=== PATIENT | female | born 1970 | race American Indian/Alaskan Native ===

== ENCOUNTER 2017-02-26 12:14 | Emergency (ER) | payer OTHER ==
[~2017-02-26] VITALS: Ht 167.6 cm; Wt 119.8 kg
[~2017-02-26 12:14] MED LIST: ABILIFY5 MG; ADVAIR 250-501 EACH IH; ALLEGRA60 MG PO; AMOXICILLIN875 MG PO; ANTIVERT12.5 MG PO; ASPIR 8181 MG PO; ASPIRIN EC81 MG PO; ATIVAN1 MG PO; CLARITIN10 MG PO; CYCLOBENZAPRINE10 MG PO; DIAZEPAM5 MG PO; DIPHENHYDRAMINE50 MG PO; DOK100 MG PO; DOXYCYCLINE HY100 MG PO; FAMCICLOVIR500 MG PO; FERROUS SULFAT140 MG PO; FERROUS SULFAT325 MG PO; FEXOFENADINE H180 MG PO; FLOMAX0.4 MG PO; FLOVENT DISKU100 MCG; GUAIFENESIN-CO118 ML PO; HYDROCHLOROTHIA25 MG PO; HYDROCODON-ACE1 EAC6 PO; IBUPROFEN800 MG PO; IRON18 MG; LISINOPRIL-HCT1 EAC2; LISINOPRIL10 MG PO; METFORMIN HCL1000 MG PO; METHOCARBAMOL750 MG PO; MONTELUKAST SOD10 MG PO; MULTI-VITAMIN1 EACH PO; MULTIVITAMINS1 EAC7 PO; NAPROXEN500 MG PO; NORCO 10-325 T1 EACH PO; NORCO 5-325 TA1 EACH PO; OMEPRAZOLE20 MG PO; PERCOCET 10-321 EACH PO; PROTONIX40 MG PO; PROVENTIL HFA6.7 GM INH; PSEUDOEPHEDRINE60 MG PO; ROBAXIN500 MG PO; TRAMADOL HCL50 MG PO; VITAMIN C100 MG; VITAMIN C100 MG PO; VITAMIN D400 UNI1 PO; ZOFRAN ODT4 MG SL; ZOFRAN ODT8 MG PO; ZOFRAN4 MG PO; [UNRECOGNIZED DRUG - OTHER] PO
== END 2017-02-26 14:30 | disposition home or self-care (01) ==
LOC: ED 12:14
DX: Z03.89 Encounter for observation for other suspected diseases and conditions ruled out (principal); I10 Essential (primary) hypertension; J45.909 Unspecified asthma, uncomplicated; Z87.891 Personal history of nicotine dependence; Z88.4 Allergy status to anesthetic agent; Z90.49 Acquired absence of other specified parts of digestive tract; Z79.899 Other long term (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
CPT/HCPCS: 85014; 85018; 85610; 85730; 99284

== ENCOUNTER 2017-06-14 19:28 | Emergency (ER) | payer OTHER ==
[~2017-06-14] VITALS: Ht 165.1 cm; Wt 122.5 kg
[2017-06-14] MEDS ORDERED: CLARITIN10 M2 PO (19:40)
[2017-06-14] MEDS ORDERED: TIZANIDINE HCL4 M1 PO (19:42)
[2017-06-14] MEDS ORDERED: VENTOLIN HFA18 GM INH (19:43)
[2017-06-14] MEDS ORDERED: KEFLEX500 MG PO (20:00)
== END 2017-06-14 20:08 | disposition home or self-care (01) ==
LOC: ED 19:28
DX: K11.21 Acute sialoadenitis (principal); J45.909 Unspecified asthma, uncomplicated; I10 Essential (primary) hypertension; Z88.4 Allergy status to anesthetic agent; Z87.891 Personal history of nicotine dependence; Z79.899 Other long term (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; Z90.49 Acquired absence of other specified parts of digestive tract; Z98.890 Other specified postprocedural states
CPT/HCPCS: 99283

== ENCOUNTER 2017-07-06 13:25 | Emergency (ER) | payer OTHER ==
[~2017-07-06] VITALS: Ht 165.1 cm; Wt 122.5 kg
[~2017-07-06 13:25] MED LIST changes: +CLARITIN10 M2 PO; +KEFLEX500 MG PO; +TIZANIDINE HCL4 M1 PO; +VENTOLIN HFA18 GM INH
[2017-07-06] MEDS ORDERED: KETOROLAC TROME10 MG PO (14:26)
== END 2017-07-06 14:34 | disposition home or self-care (01) ==
LOC: ED 13:25
DX: S93.402A Sprain of unspecified ligament of left ankle, initial encounter (principal); I10 Essential (primary) hypertension; Z87.891 Personal history of nicotine dependence; Z90.49 Acquired absence of other specified parts of digestive tract; Z88.8 Allergy status to other drugs, medicaments and biological substances; Z79.899 Other long term (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; X50.1XXA Overexertion from prolonged static or awkward postures, initial encounter
CPT/HCPCS: 73610; 99283

== ENCOUNTER 2017-09-01 17:34 | Emergency (ER) | payer OTHER ==
[~2017-09-01] VITALS: Ht 165.1 cm; Wt 126.1 kg
[~2017-09-01 17:34] MED LIST changes: +KETOROLAC TROME10 MG PO
--- OUTSIDE RECORDS SUMMARY | 2017-09-01 17:43 | XMS | Clinical Summary ---
Demographics + + + | Address | [address] | | | [place] [address] | + + + | Home Phone | | + + + | Preferred Language | Unknown | + + + | Marital Status | Single | + + + | Taoist Affiliation | CAT | + + + | Race | Unknown | + + + | Ethnic Group | Not or | + + + Author + + + | Author | [facility] | + + + | Organization | [facility] | + + + | Address | Unknown | + + + | Phone | Unavailable | + + + Support +------+ +---------+ + | Name | Relationship | Address | Phone | +------+ +---------+ + ECON | Unknown | | +------+ +---------+ + Care Team Providers + +------+ + | Care Body Line Finisher Name | Role | Phone | + +------+ + | Quentin Manriquez | PP | | + +------+ + Source Comments WHITNEY is fully live on both [facility] and [facility] Allergies + + + + + + | Active Allergy | Reactions | Severity | Noted | Comments | | | | | Date | | + + + + + + | Hydromorphone (Bulk) | Pruritus | | 04/01/20 | | | | | | 14 | | + + + + + + | Morphine | Pruritus | | 04/01/20 | | | | | | 14 | | + + + + + + | Procainamide Hcl | Anaphylaxis | High | 12/05/19 | Allergic to | | | | | 15 | anesthetics | + + + + + + Current Medications + + +-------+---------+------+------+-------+ | Prescription | Sig. | Disp. | Refills | Star | End | Statu | | | | | | t | Date | s | | | | | | Date | | | + + +-------+---------+------+------+-------+ | METFORMIN HCL | Take by mouth. | | | | | Activ | | (METFORMIN ORAL) | | | | | | e | + + +-------+---------+------+------+-------+ | oxycodone, | Take 1 Tab by mouth | 30 | 0 | 10/0 | | Activ | | immediate release, 5 | every six hours as | | | 08/27 | | e | | mg Oral Tablet | needed. | | | 09 | | | + + +-------+---------+------+------+-------+ | lisinopril 10 mg | Take 10 mg by mouth | | | | | Activ | | oral tablet | once daily. | | | | | e | + + +-------+---------+------+------+-------+ | loratadine 10 mg | Take by mouth. | | | | | Activ | | oral capsule | | | | | | e | + + +-------+---------+------+------+-------+ | Mometasone 220 mcg | Inhale 1 puff once | | | | | Activ | | (30 doses) | daily. | | | | | e | | inhalation aerosol | | | | | | | | powdr breath | | | | | | | | activated | | | | | | | + + +-------+---------+------+------+-------+ | montelukast 10 mg | Take 10 mg by mouth | | | | | Activ | | oral tablet | once daily in the | | | | | e | | | evening. | | | | | | + + +-------+---------+------+------+-------+ | | 1 drop four times | | | | | Activ | | naphazoline-pheniram | daily as needed. | | | | | e | | ine 0.025-0.3 % | | | | | | | | ophthalmic drops | | | | | | | + + +-------+---------+------+------+-------+ | omeprazole 20 mg | Take 20 mg by mouth | | | | | Activ | | oral capsule,delayed | once daily. | | | | | e | | release(DR/EC) | | | | | | | + + +-------+---------+------+------+-------+ | ondansetron ODT 4 | Take 4 mg by mouth | | | | | Activ | | mg oral | every twelve hours | | | | | e | | tablet,disintegratin | as needed. | | | | | | | g | | | | | | | + + +-------+---------+------+------+-------+ | pantoprazole 40 mg | Take 40 mg by mouth | | | | | Activ | | oral tablet,delayed | once daily. | | | | | e | | release (/EC) | | | | | | | + + +-------+---------+------+------+-------+ | terbinafine 250 mg | Take 250 mg by mouth | | | | | Activ | | oral tablet | once daily. | | | | | e | + + +-------+---------+------+------+-------+ Active Problems + + + | Problem | Noted Date | + + + | ETD (eustachian tube dysfunction) | 04/01/2014 | + + + | OME (otitis media with effusion) | 04/01/2014 | + + + | Conductive hearing loss in right ear | 04/01/2014 | + + + | Dizziness | 04/01/2014 | + + + | Nausea | 04/01/2014 | + + + Social History + +-------+ +--------+------+ | Tobacco Use | Types | Packs/Day | Years | Date | | | | | Used | | + +-------+ +--------+------+ | Former Smoker | | | | | + +-------+ +--------+------+ + + +---------+ + | Alcohol Use | Drinks/We | oz/Week | Comments | | | ek | | | + + +---------+ + | No | | | | + + +---------+ + + + + | Sex Assigned at | Date Recorded | | | | + + + | Not on file | | + + + Last Filed Vital Signs + + + + | Vital Sign | Reading | Time Taken | + + + + | Blood Pressure | 97/58 | 04/01/2014 9:43 AM PDT | + + + + | Pulse | 82 | 04/01/2014 9:43 AM PDT | + + + + | Temperature | 36.9 C (98.4 F) | 05/08/2009 11:53 AM PDT | + + + + | Respiratory Rate | 16 | 05/08/2009 11:53 AM PDT | + + + + | Oxygen Saturation | 98% | 05/08/2009 11:53 AM PDT | + + + + | Inhaled Oxygen | - | - | | Concentration | | | + + + + | Weight | 113.4 kg (250 lb) | 04/01/2014 9:43 AM PDT | + + + + | Height | 167.6 cm (5' 6") | 04/01/2014 9:43 AM PDT | + + + + | Body Mass Index | 40.35 | 04/01/2014 9:43 AM PDT | + + + + Plan of Treatment + + + + + | Health Maintenance | Due Date | Last Done | Comments | + + + + + | INFLUENZA VACCINE | | | | | (FLU SHOT) | 7 | | | + + + + + Results Not on filefrom Last 3 Months
--- OUTSIDE RECORDS SUMMARY | 2017-09-01 17:43 | XMS | Clinical Summary ---
Demographics + + + | Address | [address] | | | [place] [address] | + + + | Home Phone | | + + + | Preferred Language | Unknown | + + + | Marital Status | Single | + + + | Voodoo Affiliation | CAT | + + + [...] Team Providers + +------+ + | Care Butter Liquefier Name | Role | Phone | + +------+ + | Quentin Manriquez | PP | | + +------+ + Source Comments WHITNEY is fully live on both [facility] and [facility] InPatient.[facility] [place] [facility] Allergies + + + + + [...]
[2017-09-01] MEDS ORDERED: NORCO 5-325 TA1 EACH PO (17:56)
[2017-09-01] MEDS ORDERED: AUGMENTIN 875-1 EACH PO (17:56)
== END 2017-09-01 18:02 | disposition home or self-care (01) ==
LOC: ED 17:34
DX: H66.91 Otitis media, unspecified, right ear (principal); R05 Cough; I10 Essential (primary) hypertension; J45.909 Unspecified asthma, uncomplicated; Z90.49 Acquired absence of other specified parts of digestive tract; Z90.89 Acquired absence of other organs; Z88.4 Allergy status to anesthetic agent; Z79.899 Other long term (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
CPT/HCPCS: 99283

== ENCOUNTER 2017-10-08 16:26 | Emergency (ER) | payer OTHER ==
[~2017-10-08] VITALS: Ht 165.1 cm; Wt 122.5 kg
--- OUTSIDE RECORDS SUMMARY | ~2017-10-08 | XMS | Clinical Summary ---
Demographics + + + | Address | [address] | | | [place] [address] | + + + | Home Phone [...] Team Providers + +------+ + | Care Marine Radio Installer And Servicer Name | Role | Phone | + +------+ + | Quentin Manriquez | PP | | + +------+ + Source Comments WHITNEY is fully live on both [facility] and [facility] Allergies + + + + + + [...]
--- OUTSIDE RECORDS SUMMARY | ~2017-10-08 | XMS | Clinical Summary ---
Demographics + + + | Address | [address] | | | [place] [address] | + + + | Home Phone [...] Team Providers + +------+ + | Care Principal Technical Architect Name | Role | Phone | + +------+ + | Quentin Manriquez | PP | | + +------+ + Source Comments WHITNEY is fully live on both [facility] and [facility] Allergies + + + [...]
[~2017-10-08 16:26] MED LIST changes: +AUGMENTIN 875-1 EACH PO
[2017-10-08] MEDS ORDERED: ZESTRIL2.5 MG PO (16:58)
[2017-10-08] MEDS ORDERED: VITAMIN D2000 UNIT PO (16:59)
[2017-10-08] MEDS ORDERED: IBUPROFEN800 MG PO (17:00)
[2017-10-08] MEDS ORDERED: PSEUDOEPHEDRIN120 MG PO (17:00)
[2017-10-08] MEDS ORDERED: NORCO 5-325 TA1 EACH PO (17:31)
[2017-10-08] MEDS ORDERED: ROBAXIN-750750 MG PO (17:31)
[2017-10-08] MEDS ORDERED: PREDNISONE20 MG PO (17:31)
== END 2017-10-08 17:40 | disposition home or self-care (01) ==
LOC: ED 16:26
DX: M54.12 Radiculopathy, cervical region (principal); I10 Essential (primary) hypertension; Z87.891 Personal history of nicotine dependence; Z88.4 Allergy status to anesthetic agent; Z79.899 Other long term (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
CPT/HCPCS: 99283; J7512

== ENCOUNTER 2017-10-28 10:59 | Inpatient (IN) | payer OTHER ==
[~2017-10-28] VITALS: Ht 165.1 cm; Wt 110.5 kg
[~2017-10-28 10:59] MED LIST changes: +PREDNISONE20 MG PO; +PSEUDOEPHEDRIN120 MG PO; +ROBAXIN-750750 MG PO; +VITAMIN D2000 UNIT PO; +ZESTRIL2.5 MG PO
--- OUTSIDE RECORDS SUMMARY | 2017-10-28 12:12 | XMS | Clinical Summary ---
Demographics + + + | Address | [address] | | | [place] [address] | + + + | Home Phone | | + + + | Preferred Language | Unknown | + + + | Marital Status | Single | + + + | Orthodoxy Affiliation | CAT | + + + [...] | Unavailable | + + + Support + + +---------+ + | Name | Relationship | Address | Phone | + + +---------+ + | ALEXANDRA NINA | ECON | Unknown | | + + +---------+ + Care Team Providers + +------+ + | Care Hydraulic Press Operator Name | Role | Phone | + +------+ + | Quentin Manriquez | PP | | + +------+ + Source Comments WHITNEY is fully live on both [facility] and [facility] & [facility] Allergies + + + + + + [...] every six hours as | | | 1/20 | | e | | mg Oral [...] | | | e | | release (DR/EC) | | | | | | | [...]
--- OUTSIDE RECORDS SUMMARY | 2017-10-28 12:12 | XMS | Clinical Summary ---
Demographics + + + | Address | [address] | | | [place] [address] | + + + | Home Phone | | + + + | Preferred Language | Unknown | + + + | Marital Status | Single | + + + | Advent Affiliation | CAT | + + + [...] Team Providers + +------+ + | Care Lime Filter Operator Name | Role | Phone | + +------+ + | Quentin Manriquez | PP | | + +------+ + Source Comments WHITNEY is fully live on both [facility] and [facility] Allergies + + + + + + [...]
--- OUTSIDE RECORDS SUMMARY | 2017-10-28 14:00 | XMS | Clinical Summary ---
Demographics + + + | Address | [address] | | | [place] [address] | + + + | Home Phone | | + + + | Preferred Language | Unknown | + + + | Marital Status | Single | + + + | Christianity Affiliation | CAT | + + + [...] Team Providers + +------+ + | Care It Field Technician Name | Role | Phone | + +------+ + | Quentin Manriquez | PP | | + +------+ + Source Comments WHITNEY is fully live on both [facility] and [facility] Allergies + + + + [...]
--- OUTSIDE RECORDS SUMMARY | 2017-10-28 14:00 | XMS | Clinical Summary ---
Demographics + + + | Address | [address] | | | [place] [address] | + + + | Home Phone | | + + + | Preferred Language | Unknown | + + + | Marital Status | Single | + + + | Adventism Affiliation | CAT | + + + [...] Team Providers + +------+ + | Care Patient Financial Coordinator Name | Role | Phone | + +------+ + | Quentin Manriquez | PP | | + +------+ + Source Comments WHITNEY is fully live on both [facility] and [facility] In[facility] & [facility] Allergies + + + + + + [...]
--- NOTE | 2017-10-28 14:25 | NUR ---
PT ARRIVED TO UNIT FROM ER. PT SOMULANT AND DROWSY, ABLE TO SCOOT SLEF OVER FROM GURNEY TO BED. PT C/O GENERALIZED BODY PAIN. REPORTS BEING LIGHT SENSITIVE, BLINDS DRAWN. PT ASKES "DID THEY CHECK ME FOR BOTULISM?" PT EDUCATED ON DIAGNOSIS OF HEYPERGLYCEMIA/UNCONTROLLED DIABETIS. PT APPERS TO BE UNRECEPTIVE TO THIS.
--- NOTE | 2017-10-28 16:40 | NUR ---
IV SITE INTACT, NO REDNESS OR SWELLING, FLUIDS AND FLUSHES INFUSE EASILY. PT MOSTLY SLEEPING, REPOSTIONS SELF IN BED, OCCASIONALLY MOANS.
--- NOTE | 2017-10-28 19:30 | NUR ---
RECEIVED REPORT AT 191, FOUND PT IN BED IN PAIN 05/17. PT ALSO VOIDED 325ML. URINE WAS YELLOW AND CLEAR. PT RR IS IN THE LOW 20'S AN HR SO FAR IS IN THE LOW 100 -118.
--- NOTE | 2017-10-28 21:00 | NUR ---
BG AT 2100 WAS 263, UNSULIN DRIP AT 10.5UNITS/HR.
--- NOTE | 2017-10-28 21:39 | NUR ---
AT 1953 1MG OF DILAUDED IV WAS GIVEN. PT WAS HAVING 10/10 ABD PAIN. ABD SOUNDS WERE HYPOACTIVE WHEN AUSCULTATED. BG AT TIME WAS 251 AND WAS INCREASED TO 8.5 UNITS/HR. ALL LOBES WERE CLEAR. AT 2000 PT HAD ABOUT A 4.2 SECOND STRETCH OF ASYSTOLE. PT WAS TALKING THE ENTIRE TIME. MD PATEL WAS CALLED. CONSIDERING HER ABD PAIN THAT SO FAR WAS NOT RELIEVED BY PRN PAIN MEDS, AN ORDER FOR A PELVIC/ABD CT W/CONTRAST WAS GIVEN. PT WAS IN CT AT ABOUT 2029 AND BACK ON IN CCU AT 2044. PT UPON RETURN WAS DROWSY BUT AWAKES TO VOICE COMMAND. PT STATES THAT PAIN AT THIS TIME IS STILL 10/10. AWAITING CT RESULTS.
--- NOTE | 2017-10-28 22:00 | NUR ---
PT IS SLEEPING AT THIS TIME. V/S ARE WDL OVERALL. RR RATE IN LOW 20'S. BG AT 2200 WAS 263, INSULIN DRIP AT 12.6 UNITS/HR.
--- NOTE | 2017-10-28 22:30 | NUR ---
CRITICAL LAB VALUE CALL RECEIVED ABOUT CO2 =5 AT 2223. MD PATEL CALLED NOW. NO ORDERS RECEIVED. CONTINUE TO MONITOR, URINE OUTPUT, CONTROL PAIN, AND MONITOR V/S.
--- NOTE | 2017-10-29 00:10 | NUR ---
BG AT 0000 WAS 296. DRIP WAS CHANGED TO 20 U/HR. AT THIS TIME A NEW IV IS STARTED IN A BIGGER VEIN. THE JUMP IN GLUCOSE LEVEL THIS HOUR WAS SIGNIFICANT (265 AT 2300 TO 296 AT 0000). IT IS THE HOPE THAT THE NEW IV SITED WILL GET THE INSULIN BETTER INTO HER BLOOD STREAM. ALL LOBES ARE CLEAR, PT RR IS 19-25. HR IS STILL IN THE 12'S. O2 SATS ARE >92% ON RA. UPPPER ABD QUADRANTS HAVE BOWEL TONES PRESENT, LOWER QUADRANTS HAVE HYPOACTIVE BOWEL TONES. URINE OUTPUT IS STILL VERY ADEQUATE. NO OTHER CONCERNS AT THIS TIME. PT IS SLEEPING FOR THE MOST PART.
--- NOTE | 2017-10-29 02:05 | NUR ---
PT AT THIS TIME IS STILL SLEEPING BUT OPENS EYES TO VOICE. BG AT 0200 WAS 265. INSULIN DRIP IS CONTINUED AT 16.8 UNITS/HR. URINE OUTPUT IS STILL ADEQUATE. RR REMAINS HIGH FROM 20'S-30'S AT TIMES. IT SEEMS THAT NEW IV SITE WAS NEEDED FOR THE INSULIN DRIP.
--- NOTE | 2017-10-29 03:10 | NUR ---
BG AT 0300 WAS 290 WHICH REQUIRED ME TO SET THE INSULIN DRIP AT 22.5 U/HR. HOWEVER, THE IV PUMP DID NOT LET ME GO ABOVE 20 U/HR. THIS WAS DISCUSSED WITH UNEMPLOYMENT INSURANCE HEARING OFFICER AND A CCU RN. THE DECISION WAS MADE TO RUN THE INSULIN DRIP IVF AT 22.5ML/HR SINCE THE RATIO OF UNITS IS 1:1 MITH ML/HR. THIS OCCURENCE WILL BE IRIS'D. PT STATED PAIN IS STILL 8/10. NO PAIN MEDS TO BE GIVEN AT THIS TIME BECAUSE PT AT THIS TIME IS VERY DRWOSY RASS SCORE OF -2.
--- NOTE | 2017-10-29 05:00 | NUR ---
BG IS 272. DRIP TITRATED TO 21 U/HR. PT IS SITTING AT SIDE OF BED. PT STATES THAT PAIN IS TOLERABLE AT THIS TIME. NO NEW CONCERNS AT THIS TIME.
--- NOTE | 2017-10-29 05:30 | NUR ---
AT START OF SHIFT PT WAS COMPLAINING OF INCREASING ABD/UTERINE PAIN. AT 1954 1MG OF IV DILAUDED WAS GIVEN. AT 2000 PT HAD 4.2 SEC ASYSTOLE. PT REMAINED ASYMPTOMATIC DURING THOSE 4.2 SECONDS. MD PATEL WAS CALLED. AN ORDER FOR AN ABD/PELVIC CT W/CONTRAST WAS RECEIVED. CT SHOWED PANCREATITIS, MD PATEL IS AWARE. AT 2222 LAB CALLED WITH A CRITICAL CO2 OF 5. MD PATEL WAS CALLED AT 2229. NO NEW ORDERS WERE GIVEN. FOR ALL ASSESSMENTS ALL LOBES WERE CLEAR. ABD SOUNDS ARE HYPOACTIVE OVERALL. URINE OUTPUT IS ADEQUATE. PAIN IS 8/10 TO 10/10. BG CONTROL WITH INSULIN DRIP HAS BEEN DIFFICULT OVERALL. BG VALUES MOST HOURS THIS SHIFT HAD RISEN INSTEAD OF FALLEN. TITRATION RATES HAVE VARIED THIS SHIFT FROM 10.5 -22.5 UNITS/HR. BG'S THIS SHIFT RANGED FROM 251-290. PT HAS BEEN SLEEPING FOR THE MOST PART THIS SHIFT IN PART TO DROWSYNESS FROM PRN DILAUDED. PT DOES WAKE TO VOICE AND IS ABLE TO HAVE A CONVERSATION.
--- NOTE | 2017-10-29 05:43 | EKG ---
[facility] [address] [place], [place] [address] Signed Sinus tachycardia Otherwise normal ECG When compared with ECG of 31-DEC-2016 20:50, No significant change was found Confirmed by JERI JORDAN MD ([id number]) on 10/29/2017 5:43:15 AM Electronically Signed By: JERI JORDAN MD 10/29/17 0543 PATIENT NAME: ANA MARIA TURCIOS Electrocardiogram DATE OF : 72 PHYSICIAN: JERI JORDAN MD REPORT #: [id number] REPORT IS CONFIDENTIAL AND NOT TO BE RELEASED WITHOUT AUTHORIZATION
--- NOTE | 2017-10-29 07:50 | NUR ---
PT SLEEPING SOUNDLY AT THIS TIME, IV SITES INTACT, NO REDNESS OR SWELLING NOTED, FLUIDS INFUSING EASILY.
--- NOTE | 2017-10-29 09:00 | NUR ---
PT IN BED SLEEPING. UPDATEDE WB. HELPED PT TO BSC
--- NOTE | 2017-10-29 10:16 | NUR ---
CALLED TO UP DATE ON PT STATUS OF INSULIN DRIP RATE OF 25.2 UNITS PER HOUR. GAVE ORDERS TO STOP D51/2 NS AND TO SWITCH PT BACK TO NS IV FLUID. CONTINUE TO MONITOR.
--- NOTE | 2017-10-29 11:55 | NUR ---
PT MOSTLY SLEEPING, AWAKENS TO USE BEDSIDE COMMODE, THEN BACK TO BED. WHEN AWAKE C/O PAIN 9/10 IN LEFT QUAD OF ABD. PT SOMULANT AND DROWSY, DOES NOT ALWAYS MAKE SENSE WHEN SHE IS TALKING. PT NOT ORIENTED TO EVENT, OR PLAN OF CARE. REORIENTATION REQUIRED FREQUENTLY.
--- NOTE | 2017-10-29 12:05 | NUR ---
HELPED GIVE PT A BED BATH. HELPED TO BATHROOM. CHANGED LINENS AND GAVE VERY SMALL AMOUT OF ICE CHIPS
--- NOTE | 2017-10-29 13:44 | NUR ---
PT C/O NAUSEA, 4 MG IV ZOFRAN GIVEN. PT SITTING UP IN BED WATCHING TV. IV SITES INTACT, NO REDNESS OR SWELLING NOTED, PT DENIES PAIN WITH INFUSION OR FLUSH. PT IS SOMULANT AND APPEARS TO HAVE A FLAT AFFECT.
[2017-10-29] MEDS ORDERED: NON-DROWSY ALLE10 MG PO (13:49)
--- NOTE | 2017-10-29 13:50 | NUR ---
Medications reconciled with patient interview
--- NOTE | 2017-10-29 16:16 | NUR ---
IV SITES INTACT, NO REDNESS OR SWELLING NOTED, FLUIDS INFUSE EASILY. PT UP TO BEDSIDE COMMODE TO VOID SMALL AMOUNT OF CONCENTRATE URINE. PT BACK TO BED, ON PERSON STAND BY ASSIST. PT SOMULANT AND FLAT AFFECT. PT REQUESTED A 7-UP, REMINDED THAT SHE IS ON BOWEL REST AND IS NOT ALLOWED PO INTAKE FOR AT LEAST 24 HOURS.
--- NOTE | 2017-10-29 20:00 | NUR ---
SHIFT REPORT RECEIVED FROM EKATERINA MONCADA. PT SLEEPING, IVF INFUSING WNL. CALLED AND SPOKE TO DR. JORDAN ABOUT PT'S DECREASED URINE OUTPUT THIS AFTERNOON AND TO REPORT THAT PT'S POTASSIUM WAS LOW ON THE LAST LAB. DR. JORDAN STATES SHE WILL PUT IN ORDERS FOR IVF BOLUS AND POTASSIUM REPLACEMENT.
--- NOTE | 2017-10-29 21:00 | NUR ---
ASSESSMENT COMPLETED. PT DROWSY, WAKES WHEN SPOKEN TO. REPORTS PAIN WHEN AWAKE, WHILE SLEEPING SHE MOANS AND APPEARS TENSE, 1MG IV DILAUDID GIVEN. LUNGS SOUND CLEAR, RA. HR REGULAR, TACHYCARDIC IN 110'S. BOWEL TONES HYPOACTIVE. SKIN APPEARS GROSSLY INTACT, NO EDEMA NOTED. IV SITES PATENT AND APPEAR WNL. CB, TITRATED INSULIN TO 15.4 ML/HR, VERIFIED WITH EKATERINA FELDMAN. WILL CONTINUE TO MONITOR.
--- NOTE | 2017-10-29 22:00 | NUR ---
CB, TITRATED INSULIN TO 13.2 ML/HR, VERIFIED WITH EKATERINA FELDMAN. PT CONTINUES TO SLEEP, NO APPARENT DISTRESS AT THIS TIME. WILL CONTINUE TO MONITOR.
--- NOTE | 2017-10-29 23:03 | NUR ---
CB, TITRATED INSULIN TO 15.4ML/HR. VERIFIED WITH EKATERINA FELDMAN.
--- NOTE | 2017-10-30 | NUR ---
ASSESSMENT COMPLETED. PT DROWSY, OPENS EYES WHEN SPOKEN TO, DISORIENTED TO EVENT AND SURROUNDINGS, FOLLOWS DIRECTIONS. DOES NOT APPEAR TO BE IN ANY DISTRESS, RESTING COMFORTABLY. LUNGS REMAIN CLEAR, RA. HR REMAINS TACHY IN THE 100'S-110'S. BOWEL TONES REMAIN HYPOACTIVE. IV SITES INTACT, FLUIDS INFUSING WNL. WILL CONTINUE TO MONITOR.
--- NOTE | 2017-10-30 00:46 | NUR ---
PT HAD NOT YET VOIDED, BLADDER SCAN SHOWED 523ML. AFTER REPOSITIONING PT, SHE HAD 30 SECONDS OF PAUSES LASTING ~4.5 SECONDS WITH SOME JUNCTIONAL ESCAPE BEATS. PT STAYED AWAKE DURING THIS, THOUGH SHE REMAINS LEHARGIC AND DISOIENTED TO SURROUNDINGS AND EVENT. HR THEN RETURNED TO 110'S AND PT STATED THAT SHE FELT NAUSEATED, NO EMESIS. DR. JORDAN CALLED AND NOTIFIED OF THESE EVENTS, NO ORDERS RECEIVED AT THIS TIME.
--- NOTE | 2017-10-30 01:00 | NUR ---
CB, TITRATED INSULIN DRIP TO 18.7ML/HR, VERIFIED WITH EKATERINA FELDMAN.
--- NOTE | 2017-10-30 01:45 | NUR ---
COULD HEAR PT MOANING FROM NURSES' STATION, WENT IN TO CHECK ON HER. HAS HE LEGS OFF SIDE OF BED AND ANSWERS "YES" WHEN ASKED IF SHE'S IN BED. HELPED HER TO PLACE HER LEGS BACK INTO BED, BED ALARM REMAINS ON FOR SAFETY. 1MG IV DILAUDID ADMINISTERED AT THIS TIME.
--- NOTE | 2017-10-30 02:00 | NUR ---
CB, TITRATED INSULIN DRIP TO 13.2ML/HR, VERIFIED WITH EKATERINA FELDMAN.
--- NOTE | 2017-10-30 03:00 | NUR ---
CB, TITRATED INSULIN DRIP TO 15.4ML/HR, VERIFIED WITH EKATERINA FELDMAN.
--- NOTE | 2017-10-30 04:12 | NUR ---
CB, TITRATED INSULIN DRIP TO 13.2ML/HR, VERIFIED WITH EKATERINA FELDMAN. PT SLEEPING, RESPIRATIONS EVEN AND UNLABORED, LUNGS CLEAR THROUGHOUT, RA. HR REGULAR, HR:100. BOWEL TONES REMAIN HYPOACTIVE. IV SITES PATENT. BED ALARM REMAINS ON FOR SAFETY, WILL CONTINUE TO MONITOR.
--- NOTE | 2017-10-30 05:00 | NUR ---
CB, NO TITRATION OF INSULIN DRIP REQUIRED AT THIS TIME.
--- NOTE | 2017-10-30 05:31 | NUR ---
WITH ENCOURAGEMENT, PT GOT UP TO BSC WITH MINIMAL ASSIST AND WAS ABLE TO VOID 250 ML OF CONCENTRATED URINE, SEDIMENT ALSO NOTED. PT ORIENTED TO SURROUNDINGS AT THIS TIME, BUT DOES NOT REMEMBER WHY SHE IS HERE. RE-ORIENTED TO EVENT. PT NOW BACK IN BED AND RESTING.
--- NOTE | 2017-10-30 06:00 | NUR ---
CB, INSULIN DRIP DID NOT REQUIRE TITRATION AT THIS TIME.
--- NOTE | 2017-10-30 07:00 | NUR ---
BED ALARM SOUNDED, WENT IN TO FIND PT SITTIN AT SIDE OF BED. UP TO BS WITH MINIMAL ASSIST, ONLY VOIDED 50ML AND THEN RETURNED TO BED. CB, TITRATED INSULIN DRIP TO 15.4ML/HR, VERIFIED WITH EKATERINA LOW. PT NOW RESTING IN BED WITH BED ALARM ON FOR SAFETY.
--- NOTE | 2017-10-30 08:02 | NUR ---
BLOOD SUGAR CHECKED, TITRATED INSULIN DRIP ACCORDING TO [employer], DRIP IS AT 11 UNITS/HR.
--- NOTE | 2017-10-30 08:08 | NUR ---
PT C/O NAUSEA, 4 MG IV ZOFRAN GIVEN.
--- NOTE | 2017-10-30 08:33 | NUR ---
INSULIN DRIP TURNED OFF PER VERBAL ORDER AT BEDSIDE. IV FLUIDS CHANGED TO NS FROM D5 1/2 NS PER .
--- NOTE | 2017-10-30 08:52 | NUR ---
PT HAS 5.23 SEC PAUSE IN HR, PT VOMITING AT THIS TIME. CALLED TO UPDATE ON PT. ORDER GIVEN TO CONTINUE TO MONITOR, ORDERED STAT LABS WELL.
--- NOTE | 2017-10-30 08:59 | NUR ---
ASSISTED PT TO CLEAN UP, NEW GOWN IN PLACE, PT ABLE TO BRUSH OWN TEETH AND WASH FACE. PT SMILING AND COMMUNICATING APPROPRIATLY AT THIS TIME. PT GIVEN A WARM BLANKET AND TUCKED INTO BED.
--- NOTE | 2017-10-30 10:12 | NUR ---
MOTHER OF PT IN THE ROOM AT THE BEDSIDE. DISCUSSED PT WITHDRAWN AFFECT, MOTHER STATES THAT IS NOT HER NORMAL LEVEL OF INTERPERSONAL INTERACTION. MOTHER STATES "SHE HAS SOME EMOTIONAL PROBLEMS WITH HER HEALTH ISSUES" "SHE SAYS SHE IS SICK ALL THE TIME".
--- NOTE | 2017-10-30 12:15 | NUR ---
PT GIVEN A DIET 7-UP. PT STILL LAYING IN BED NOT COMMUNICATING, REFUSING TO ANSWER QUESTIONS.
--- NOTE | 2017-10-30 14:27 | NUR ---
PT UP OUT OF BED, BED ALARM GOING OFF, PT UP TO BEDSIDE COMMODE. TWO NURSES IN ROOM TO ASSIST PT. PT BACK TO BED AND UNTANGLED FROM MONITOR CABLES AND IV TUBING. PT APPEARS IMPULSIVE WITH A DISREGAURD FOR SAFETY.
--- NOTE | 2017-10-30 16:20 | NUR ---
IV SITES INTACT, NO REDNESS OR SWELLING NOTED, FLUIDS INFUSING EASILY. PT VITALS WNL. PT MOSTLY SLEEPING, NOT INTERACTING MUCH, WHEN ASKED QUESTIONS MUMBLES OR REFUSES TO ANSWER. PT ABLE TO GET TO BEDSIDE COMMODE ON HER OWN, WILL NOT USE CALL LIGHT.
--- NOTE | 2017-10-30 18:09 | NUR ---
CALLED TO UPDATE ON PT URINE OUTPUT INCREASING, ORDER GIVEN TO DECREASE NS TO 75ML/HR.
--- NOTE | 2017-10-30 19:30 | NUR ---
PT SHIFT REPORT RECIVED FROM DAY SHIFT RN ALL QUESTIONS ANSWERED. PT IS RESTING IN BED WITH BED ALARM ON FOR SAFETY. WILL CONTINUE TO CLOSELY MONITOR.
--- NOTE | 2017-10-30 20:30 | NUR ---
PT SHIFT ASSESSMENT COMPLETED. PT UP TO CAMMODE PT TOLERATED WELL. ASSISTED PT BACK TO BED. PT ASSESSMENT COMPLETED. PT BREATH SOUNDS CLEAR. BOWEL TONES HYPOACTIVE. PT IS A ONE PERSON STAND-BY TO THE BEDSIDE CAMMODE. PT IS ALERT TO NAME, PLACE, AND DATE AT THIS TIME. PT UNFAMILIAR WITH WHY SHE IS IN THE HOSPITAL AND DOES NOT SHOW INTEREST IN SUBJECT. TRIED TO EDUCATE ABOUT DIABITIES PT ROLLED OVER IN THE BED TO FACE THE OTHER SIDE. WILL TRY EDUCATION AT A DIFFERENT TIME. PT REAMAINS WITHDRAWN AND SLEEP AT TIMES. WILL CONTINUE TO CLSOELY MONITOR.
--- NOTE | 2017-10-30 21:30 | NUR ---
PT BED ALARM GOING OFF. PT SITTING ON EDGE OF BED. PT STATES SHE NEEDS TO PEE. ASSISTED TO CAMMODE. PT IS ALERT TO SELF AND DOESNT KNOW SHE IS IN THE HOSPITAL. PT ALERTNESS WAXES AND WEANS. PT REMINDED OF CALL LIGHT, WILL CONTINUE TO USE BED ALARM D/T PT FORGETFULLNESS AND URGENCY TO URINATE. SPOKE WITH PT REGUARDING HER PLANS FOR EASTER. PT BACK IN BED AND IMMEDIATELY ROLLS OVER AND FALLS BACK TO SLEEP. WILL CONTINUE TO CLOSELYM ONITOR.
--- NOTE | 2017-10-30 22:40 | NUR ---
PT RESTING IN BED AT THIS TIME. BED ALARM ON D/T PT NOT CALLING STAFF WHEN SHE NEEDS TO GO TO THE BEDSIDE [facility]. PT REMINDED OF CALL LIGHT SYSTEM AND THAT SHE NEEDS TO CALL PRIOR TO GETTING UP SO WE CAN ASSIST WITH TUBES AND CORDS. PT STATES UNDERSTANDING. WILL CONTINUE TO USE BED ALARM FOR SAFETY. PT BACK TO BED. PT IS MORE ENGAING IN CONVERSATION THAN EARLIER BUT REMAINS SLEEPY. NO OTHER ISSUES AT THIS TIME. WILL CONTINUE TO CLOSELY MONITOR.
--- NOTE | 2017-10-30 23:15 | NUR ---
PT TRANSFERING TO ROOM 111 AT THIS TIME. PT HAS BEEN A HOUSE CONV. IN ROOM 127 SINCE THIS AM. PT AWARE OF TRANSFER STATUS AND IS OKAY WITH TRANSFER AT THIS TIME. PT BELONGINGS SENT WITH PT AND EKATERINA SMITH. BED ALARM REMAINS ON FOR PT SAFETY.
--- NOTE | 2017-10-30 23:23 | NUR ---
Beside report from [facility] nurse, PATIENT TO ROOM 111. FULL BODY ASSESMENT DONE. VS STABLE. NS @75ML/HR. NO COMPLAINTS OF PAIN. BED ALARM ON.
--- NOTE | 2017-10-31 01:15 | NUR ---
PATIENT COMPLAINING OF PAIN IN ABDOMEN. ADMINISTERED 1 TAB NORCO AND IV ZOFRAN. PATIENT STATED " I WANT TO GET OFF THE TRAIN AT [place]" REASSURED PATIENT IN [place] ON THE MED SURG. PATIENT REORIENTED AND APPEARS LESS CONFUSED. NOW RESTING ON SIDE WITH EYES CLOSED. VS STABLE. BED ALARM ON.
--- NOTE | 2017-10-31 03:00 | NUR ---
PATIENT CONTINUES TO GET UP BY IMPULSE TO USE BSC, ALARMING BED ALARM. APPEARS PLEASANTLY CONFUSED, EASILY REORIENTED. VOIDING WELL. NORCO APPEARS TO BE CONTROLLING PAIN, PATIENT SHAKES HEAD NO WHEN ASKED IF HAVING PAIN. DRINKING WATER WELL, NO NAUSEA/VOMITTING. VS STABLE.
--- NOTE | 2017-10-31 06:01 | NUR ---
PATIENT UP MANY TIMES THROUGHOUT NIGHT TO BSC. DISORIENTED AND PLEASANTLY CONFUSED. PAIN WELL CONTROLLED WITH NORCO. ADMINISTERED ZOFRAN IV PREVENTIVLEY WITH FIST DOSE OF NORCO. VS STABLE.
--- NOTE | 2017-10-31 07:27 | NUR ---
BEDSIDE SHIFT REPORT RECEIVED FROM SARAH TOBAR. PATIENT SLEEPING ON RIGHT SIDE WITH IVF INFUSING AND ON ROOM AIR. PATIENT DOES NOT AWAKEN TO OUR SHIFT REPORT IN ROOM. BED ALARM ON. NS INFUSING @ 75ML/HR.
--- NOTE | 2017-10-31 08:21 | NUR ---
PT IN BED. TOOK PT TO BR. AM CARE. SET UP FOR BRK.
--- NOTE | 2017-10-31 08:49 | NUR ---
PT VERY SLEEPY. OPENS EYES FOR A QUICK SECOND WHEN HEARING NAME AND FALLS BACK ASLEEP. UNABLE TO GIVE LOPID PILL SHE WAS TOO LETHARGIC/DROWSY. CLEAR LIQUID TRAY AT BEDSIDE. IVF INCREASED TO 100ML/HR. BED ALARM ON.
--- NOTE | 2017-10-31 09:15 | NUR ---
PT SAT AT EDGE OF BED EATING JELLO. STOOD UP TO VOID. BED ALARM TRIGGERED. THIS RN HELPED PATIENT TO BSC. VOIDED 450ML. PT BACK TO BED NOW WITH BED ALARM ON. COVERED WITH BLANKETS.
--- NOTE | 2017-10-31 10:29 | NUR ---
VITALS AND I AND O DONE
--- NOTE | 2017-10-31 11:13 | NUR ---
PT WALKING IN HALLS WITH PHYSICAL THERAPY AT THIS TIME.
--- NOTE | 2017-10-31 13:57 | NUR ---
pt resting quietly throughout day. sleeping on right side in bed now. patient worked with physical therapy this morning. reported it was "hard. we did the stairs". poor appetite. no pain meds given today. none requested.
--- NOTE | 2017-10-31 15:52 | NUR ---
PATIENT UP TO BSC. URINATING 400ML EACH TIME SHE IS UP. PATIENT BACK TO SLEEP SOON SHE IS DONE ON COMMODE. NOT INTERESTED IN ADVANCING DIET.
--- NOTE | 2017-10-31 18:01 | NUR ---
ACCU CHECKS 300s THROUGHOUT DAY. DR MCLEAN CHANGED INSULIN DOSAGES. LEVEMIR 20 UNITS BID AND SLIDING SCALE. POOR APPETITE. CLEAR LIQUIDS. UNINTERESTED IN ADVANCING DIET AT THIS TIME. ORIENTED X4. SBA TO BSC. BED ALARM ON. WORKED WITH PHYSICAL THERAPY TODAY. SODIUM BICARB IVF INFUSING AT 125.
--- NOTE | 2017-10-31 19:45 | NUR ---
RECEIVED REPORT FROM DAY SHIFT RN. PATIENT IS RESTING IN RECLINER. DR. YUNG AT THE BEDSIDE. PATIENT DENIES ANY QUESTIONS. CALL LIGHT IN REACH.
--- NOTE | 2017-10-31 19:46 | NUR ---
PATIENT IS RESTING IN BED WITH EYES CLOSED. BREATHING IS EVEN AND UNLABORED, RR 18. REPORT RECEIVED FROM DAY SHIFT RN. CALL LIGHT IN REACH. BED ALARM ON FOR SAFETY.
--- NOTE | 2017-10-31 21:43 | NUR ---
PATIENT ASSESMENT COMPLETED. PATIENT DENIES ANY PAIN. PATIENTS EVENING MEDICATIONS GIVEN PER ORDER. PATIENT DENIES ANY NAUSEA. PATIENT ASSITED TO THE BSC. PATIENT WAS ABLE TO PIVOT XFER WITH NO ASSISTANCE. PATIENT IS BACK IN BED RESTING. PATIENTS BED ALARM IS ON FOR SAFETY PATIENT DOES NOT USE CALL LIGHT. PATIENT DENIES ANY FURTHER NEEDS. CALL LIGHT IN REACH.
--- NOTE | 2017-10-31 23:21 | NUR ---
PATIENT USED CALL LIGHT TO ALERT STAFF THAT SHE NEEDED TO USE THE RESTROOM. PATIENT WAS ABLE TO PIVOT TRANSFER BY HERSELF. PATIENT WAS ABLE TO ELIMINATE. PATIENT DENIES ANY PAIN OR NAUSEA AT THIS TIME. PATIENT IS BACK IN BED RESTING. PATIENT DENIES ANY NEEDS. CALL LIGHT IN REACH. AND BED ALARM ON FOR SAFETY.
--- NOTE | 2017-10-31 23:53 | NUR ---
PATIENTS IV IN LEFT ARM IS NO LONGER PATENT. PATIENTS IV REMOVED. PATIENTS FLUIDS ARE NOW INFUSING IN RIGHT ARM. PATIENT DENIES ANY NEEDS. CALL LIGHT IN REACH AND BED ALARM ON FOR SAFETY.
--- NOTE | 2017-11-01 00:14 | NUR ---
PATIENT IS NOW NPO FOR SURGERY. ALL DRINKS REMOVED FROM THE BEDISDE. EDUCATED PATIENT. PATIENT VERBALIZES UNDERSTANDING. NO NEEDS NOTED. PATIENT DENIES ANY PAIN OR NAUSEA.
--- NOTE | 2017-11-01 01:25 | NUR ---
PATIENT USED CALL LIGHT TO REQUEST TO USE THE BSC. PATIENT WAS ABLE TO TRANSFER WITH NO ASSISTANCE TO THE BSC. PATIENT WAS ABLE TO VOID. PATIENT IS NOW BACK IN BED RESTING. PATIENT COMPLAINS OF 9/10 PAIN IN HER BACK AND NECK. PATIENT GIVEN PRN PAIN MEDICATION PER PATIENT REQUEST. PATIENT GIVEN PRN PAIN MEDICATION PER PRN ORDER. PATIENT DENIES ANY FURHTER NEEDS. ICE WATER REFRESHED. PATIENTS BED ALRM ON FOR SAFETY.
--- NOTE | 2017-11-01 02:07 | NUR ---
PATIENTS 0200 BS CHECKED PER ORDER. SS ADMINISTERED PER ORDER. PATIENT DENIES ANY NEEDS. CALL LIGHT IN REACH. BED ALARM ON FOR SAFETY.
--- NOTE | 2017-11-01 03:39 | NUR ---
PATIENT IS RESTING IN BED WITH EYES CLOSED. RR 18. BED ALARM ON AND CALL LIGHT IN REACH.
--- NOTE | 2017-11-01 04:18 | NUR ---
PATIENT ASSISTED TO THE BSC. PATIENT WAS ABLE TO SELF TRANSFER. PATIENT ABLE TO VOID. PATIENT IS BACK IN BED RESTING. CHAP STICK AND WARM WAS RAG PROVIDED TO PATIENT. NO PAIN OR NAUSEA NOTED. CALL LIGHT IN REACH.
--- NOTE | 2017-11-01 05:15 | NUR ---
PATIENT RESTED FOR MOST OF THE SHIFT. PATIENT IS AAOX3. PATIENT IS ON CLEARS AND DID NOT EAT DURING THIS SHIFT. PATIENT DENIES NAUSEA. PATIENT IS A SBA TO BSC. PATIENTHAS GOOD URINE OUTPUT. PATIENT RECEIVED PRN PAIN MEDICATION X1 FOR BACK AND NECK PAIN. PATIENT DOES NOT ALWAYS USE CALL LIGHT. BED ALARM ON FOR SAFETY.
--- NOTE | 2017-11-01 06:03 | NUR ---
LAB IN ROOM. NEPHROLOGY SOCIAL WORKER IN ROOM TAKING VITALS. PATIENTS 0600 BS TAKEN AND SS ADMINISTERED PER ORDER. PATIENT DENIES ANY NAUSEA AT THIS TIME. PATIENT RATES PAIN AT A 4/10, AND DENIES NEED FOR PAIN MEDICATION. PATIENT DENIES ANY FURTHER NEEDS. PAIENT REMAINS ORIENTED. PATIENT CONTINUES TO BE DROWSY. CALL LIGHT IN REACH. BED ALARM ON FOR SAFETY.
--- NOTE | 2017-11-01 07:45 | NUR ---
PATIENT UP TO BATHROOM WITH STANDBY ASSIST. PATIENT STATED THAT SHE'S FEELING NAUSEATED. RN NOTIFIED AND GAVE PATIENT ANTINAUSEA MEDICATION. PATIENT BRUSHED TEETH AT BATHROOM SINK. PATIENT TOOK SHOWER WITH NETWORK SUPPORT ANALYST ASSIST THEN BACK TO CHAIR. CHAIR ALARM ON. BREAKFAST SET UP. CALL BUTTON IN REACH. NO OTHER NEEDS AT THIS TIME.
--- NOTE | 2017-11-01 08:45 | NUR ---
PT AWAKE SITTING AT EDGE OF BED DURING BEDSIDE SHIFT REPORT. REPORT RECEIVED FROM ANA TOBAR. WHITE BOARD UPDATED. ALL QUESTIONS ANSWERED. PATIENT SHOWERED BY NURSE AIDS THIS MORNING. ZOFRAN GIVEN FOR NAUSEA. NA BICARB INFUSING AT 125. PATIENT UP TO CHAIR FOR BREAKFAST. BACK TO BED NOW.
--- NOTE | 2017-11-01 10:44 | NUR ---
WORKED WITH PATIENT ON EDUCATION FOR HOW TO ADMINISTER INSULIN AT HOME. EDUCATED ON HOW TO DETERMINE AMOUNT SLIDING SCALE INSULIN BASED ON BLOOD SUGAR, HOW TO ADMINISTER INSULIN SUBCUTANEOUSLY, SAFELY COVER NEEDLE WITH SLEEVE ON SYRINGE, AND PROPERLY DISPOSE OF NEEDLES. PATIENT COOPERATIVE WITH ADMINISTRATION AND UNDERSTANDS HOW TO ADMINISTER INSULIN. WILL CONTINUE TO HAVE PATIENT PRACTICE ADMINISTRATION WITH EACH DOSE NEEDED.
--- NOTE | 2017-11-01 10:48 | NUR ---
PATIENT IN ROOM SITTING UP IN BED, RN ASSISTING PATIENT WITH MEDICATION. FRESH ICE WATER AT BEDSIDE. BED ALARM ON. CALL LIGHT IN REACH. NO OTHER NEEDS AT THIS TIME.
--- NOTE | 2017-11-01 10:56 | NUR ---
STANDBY ASSISTED PATIENT TO BATHROOM AND BACK TO BED. BED ALARM ON. CALL LIGHT IN REACH. NO OTHER NEEDS AT THIS TIME.
--- NOTE | 2017-11-01 11:24 | NUR ---
PATIENT RESTING IN BED WITH EYES CLOSED. THIS TRAY SETTER TRIED TO WAKE PATIENT BY TALKING LOUDLY AND GENTLY RUBBING PATIENTS SHOULDER. PATIENT OPENED EYES, AND ACKNOWLEDGD TRAY SETTER BUT WENT BACK TO RESTING. PATIENT NOT READY TO EAT LUNCH. CALL LIGHT IN REACH. BED ALARM ON. NO OTHER NEEDS AT THIS TIME.
--- NOTE | 2017-11-01 13:25 | NUR ---
PT DEMONSTRATING SLIDING SCALE INSULIN DOSING APPROPRIATELY AND ADMINISTERING INSULIN. EDUCATED ON ROTATING INJECTION SITES. WILL EDUCATE ON HOW TO CHECK BLOOD SUGAR BEFORE DINNER TONIGHT. WILL PRACTICE DRAWING UP INSULIN AT SOME POINT BEFORE DISCHARGE.
--- NOTE | 2017-11-01 13:56 | NUR ---
PATIENT RESTING IN BED WITH EYES CLOSED. ATTEMPTED TO WAKE PATIENT FOR VITALS BY RUBBING SHOULDER AND TALKING TO PATIENT. FRESH ICE WATER AT BEDSIDE TABLE. CALL LIGHT IN REACH. BED ALARM ACTIVE. NO OTHER NEEDS AT THIS TIME.
--- NOTE | 2017-11-01 14:39 | NUR ---
DIETITIAN EDUCATING PATIENT NOW. PATIENT SITTING AT EDGE OF BED. SALINE LOCKED IV NOW.
--- NOTE | 2017-11-01 14:41 | NUR ---
CONSULT RECEIVED FOR DIABETES DIET EDUCATION. PATIENT SLEEPY, BUT SAID I COULD TALK TO HER FOR A FEW MINUTES. SHE HAS MET WITH KANDY HAYES RN AT [facility] FOR EDUCATION WHEN SHE HAD PRE-DIABETES. SHE QUIT DOING WHAT SHE WAS SUPPOSED TO BE DOING BECAUSE "IT (DIABETES) WENT AWAY." SHE WAS INTERESTED IN A LIST OF FOODS SHE SHOULD BE EATING NOW. I PROVIDED HER WITH A NUTRITION GUIDE FROM [employer]. IT EXPLAINED THE PLATE METHOD AND WE TALKED ABOUT THAT FOR A FEW MINUTES. PATIENT HAD DIFFICULTY REMEMBERING CARBOHYDRATE FOODS. I SHOWED HER THE FOOD LABEL AND EXPLAINED TOTAL CARBOHYDRATES AND SERVING SIZE. IN REMINDED HER THAT SHE NEEDS TO EAT REGULAR MEALS AND INCLUDE A SNACK WHEN MEALS ARE LONGER THAN 4-5 HOURS APART. LOW-SODIUM SNACK LIST PROVIDED ALONG WITH LOWER SUGAR, HIGHER FIBER CEREALS. SINCE PATIENT WAS DOZING, I ASKED HER IF SHE HAD ANY QUESTIONS AND SHE SAID NO. I MENTIONED WE CAN ALWAYS SEE HER AN OUTPATIENT IF SHE NEEDS MORE HELP WITH FOOD OR DIABETES EDUCATION DEPENDING ON HER NEEDS. WILL CONTINUE TO MONITOR WHILE HERE.
[2017-11-01] MEDS ORDERED: MECLIZINE HCL25 MG PO (16:07)
[2017-11-01] MEDS ORDERED: TYLENOL325 MG PO (16:07)
[2017-11-01] MEDS ORDERED: ACID CONTROL150 MG PO (16:08)
[2017-11-01] MEDS ORDERED: MULTIVITAMINS1 EAC8 PO (16:08)
--- NOTE | 2017-11-01 16:16 | NUR ---
up to commode to void now. patient drowsy all afternoon. encouraging patient to eat more healthy meals e.g. less jello and ice cream.
--- NOTE | 2017-11-01 18:08 | NUR ---
PATIENT RESTING IN BED WITH EYES CLOSED. PATIENT FALLS ASLEEP QUICKLY AFTER ACKNOWLEDGING EKATERINA JONAS STATED THIS IS HER NORM SINCE YESTERDAY. BED ALARM ON, CALL LIGHT IN REACH, FRESH ICE WATER AT BEDSIDE, NO OTHER NEEDS AT THIS TIME.
--- NOTE | 2017-11-01 18:14 | NUR ---
PATIENT MORE ALERT TODAY. ORIENTED X4. SBA TO BATHROOM. SMALL BM TODAY. SALINE LOCKED. WORKING ON EDUCATING HOW TO ADMINISTER INSULIN BASED ON SLIDING SCALE AND HOW TO CHECK BLOOD SUGAR. CONTINUE TO WORK WITH PATIENT ON THIS FOR PRACTICE BEFORE DISCHARGE. FULL LIQUID DIET. POOR APPETITE. ENCOURAGE PROTEIN. ACCU CHECKS ACHS. BED ALARM ON.
--- NOTE | 2017-11-01 19:10 | NUR ---
RECEIVED REPORT FROM RN. PATIENT IS RESTING COMFORTABLY IN BED, BREATHING IS EVEN AND UNLABORED. CALL LIGHT WITHIN REACH, BED ALARM ON.
--- NOTE | 2017-11-01 19:45 | NUR ---
ASSISTED PATIENT TO BEDSIDE COMODE WITH SBA. NOW RESTING COMFORTABLY IN BED, BREATHING IS EVEN AND UNLABORED. DENIES NEEDS AT THIS TIME. CALL LIGHT WITHIN REACH.
--- NOTE | 2017-11-01 21:30 | NUR ---
PATIENT RESTING IN BED, BREATHING IS EVEN AND UNLABORED. MEDICATION ADMINISTERED, ASSESSMENT DONE. DENIES NEEDS AT THIS TIME. CALL LIGHT WITHIN REACH, BED ALARM ON.
--- NOTE | 2017-11-01 23:51 | NUR ---
PATIENT ASSISTED TO BEDSIDE COMODE WITH SBA. REPORTS FEELING LIGHT HEADED AND NAUSEOUS. PRN BLOOD GLUCOSE DONE, BLOOD GLUCOSE OF 223 NOTED. NOW RESTING IN BED, BREATHING IS EVEN AND UNLABORED.
--- NOTE | 2017-11-02 00:05 | NUR ---
PATIENT RESTING IN BED, BREATHING IS EVEN AND UNLABORED. PRN ZOFRAN GIVEN FOR NAUSEA, PRN TYLENOL GIVEN FOR 5/10 HEADACHE. PATIENT DENIES FURTHER NEEDS. CALL LIGHT WITHIN REACH, BED ALARM ON.
--- NOTE | 2017-11-02 02:04 | NUR ---
PATIENT ASSISTED TO BEDSIDE COMODE WITH SBA. NOW RESTING IN BED AGAIN, BREATHING IS EVEN AND UNLABORED. DENIES NEEDS AT THIS TIME. CALL LIGHT WITHIN REACH.
--- NOTE | 2017-11-02 04:00 | NUR ---
PATIENT RESTING COMFORTABLY IN BED, BREATHING IS EVEN AND UNLABORED. CALL LIGHT WITHIN REACH, BED ALARM ON.
--- NOTE | 2017-11-02 05:01 | NUR ---
PATIENT'S NIGHT WAS UNEVENTFUL. SHE HAS BEEN RESTING THROUGHOUT SHIFT, VSS, URINE OUTPUT QS, REPORTED HEADACHE ONCE, PRN TYLENOL RELIEVED ADEQUATELY. ALERT AND ORIENTED X4, CONTINUES TO BE DROWSY, AWAKENS TO VOICE. BOWEL TONES REMAIN HYPOACTIVE. PATIENT EXHIBITS GENERALIZED WEAKNESS AND STATES THAT SHE FEELS MILDLY LIGHT HEADED WHEN STANDING, HAS BEEN USING BEDSIDE COMODE FOR SAFETY. NAUSEA X1 THIS SHIFT, ADEQUATE RELIEF WITH PRN ZOFRAN. NO APPARENT IMPROVEMENT IN PO INTAKE, BLOOD SUGARS CONTINUE TO BE IN 200s DESPITE INCREASE IN INSULIN ORDERS. IV REMAINS SALINE LOCKED, SBA TO BATHROOM, REQUIRES BED ALARM SHE DOES NOT CALL APPROPRIATELY.
--- NOTE | 2017-11-02 05:33 | NUR ---
ASSISTED PATIENT TO USE THE COMMODE. PATIENT IS BACK IN BED. CALL LIGHT WITHIN REACH.
--- NOTE | 2017-11-02 06:26 | NUR ---
PATIENT SITTING ON EDGE OF BED, REPORTS 8/10 PAIN IN LLQ OF ABD, PRN NORCO GIVEN PER EMAR. DENIES FURTHER NEEDS. CALL LIGHT WITHIN REACH.
--- NOTE | 2017-11-02 09:23 | NUR ---
PT RESTING IN BED WATCHING TV. VISIBLE FROM NURSES STATION.
--- NOTE | 2017-11-02 09:48 | NUR ---
PATIENT RESTING IN BED. PATIENT STATED SHE HAD ALREADY BEEN UP TO WASH FACE AND HANDS, WIPE DOWN, AND PERFORM ORAL CARE. PATIENT STATED SHE MAY FEEL LIKE A REAL SHOWER LATER THIS EVENING. BED ALARM ON. CALL LIGHT IN REACH. FRESH ICE WATER AT BEDSIDE TABLE. NO OTHER NEEDS AT THIS TIME.
--- NOTE | 2017-11-02 10:22 | NUR ---
PHYSICAL THERAPY IN ROOM WITH PT.
--- NOTE | 2017-11-02 12:31 | NUR ---
BAGGING MACHINE OPERATOR IN ROOM TO ASSIST PT WITH SHOWER. PT TOLERATING WELL.
--- NOTE | 2017-11-02 12:38 | NUR ---
ASSISTED PATIENT UP TO BATHROOM FOR SHOWER. PATIENT BATHED INDEPENDENTLY WITH ASSISTANCE FROM PUMPER BREWERY ONLY FOR TOUGH TO REACH PLACES. PATIENT REQUESTED LOTION, PUMPER BREWERY SET PATIENT UP WITH LOTION ON BEDSIDE TABLE FOR [place]. FRESH ICE WATER AT BEDSIDE TABLE. BED ALARM ON. CALL LIGHT IN REACH. NO OTHER NEEDS AT THIS TIME.
--- NOTE | 2017-11-02 13:43 | NUR ---
PATIENT RESTING IN BED EYES CLOSED. PATIENT STATED SHE HAD NAUSEA AND ALMOST THREW UP WHEN SITTING UP. FRESH ICE WATER AT BEDSIDE. CALL LIGHT IN REACH. NO OTHER NEEDS AT THIS TIME.
--- NOTE | 2017-11-02 14:14 | NUR ---
PT COMPLAINED OF NAUSEA. GAVE 4MG ZOFRAN IV.
--- NOTE | 2017-11-02 14:32 | NUR ---
CARE CONFERENCE ATTENDEES: PATIENT STAFF: DR MCLEAN, MYSELF CASE MANAGEMENT, MEGHAN FIELD RN, DEVON RN, [address] MCLEAN DISCUSSED WITH THE PT ABOUT HER MANAGING HER INSULING AND BLOOD SUGARS ETC. PT STATES SHE IS FEELING MORE COMFORTABLE AND A LITTLE MORE CONFIDENT WITH THIS. HE WAS SURE TO TELL HER SHE WOULD STILL BE USING INSULIN WHEN SHE GOES HOME AND IS GOING TO NEED TO FOLLOW UP CLOSELY WITH SOHA HOFFMANN AT [facility]. PT STATES SHE PLANS ON IT. DENIES QUESTIONS NOW BUT SAYS SHE MAY HAVE SOME BEFORE LEAVING TOMORROW.
--- NOTE | 2017-11-02 14:33 | NUR ---
in room with ptMeghan
--- NOTE | 2017-11-02 14:37 | NUR ---
pt complained of pain 8/10 in abdomen. gave 1 tab norco 10/325 po.
--- NOTE | 2017-11-02 15:41 | NUR ---
pt resting in bed with eye's closed. respirations even and unlabored. bed alarm in place.
--- NOTE | 2017-11-02 16:02 | NUR ---
RN IN ROOM WITH PATIENT. PATIENT RESTING. FRESH ICE WATER ON BEDSIDE TABLE. CALL LIGHT IN REACH. NO OTHER NEEDS AT THIS TIME.
--- NOTE | 2017-11-02 16:57 | NUR ---
in room to provide pt education on diabetes. pt gave own insulin injection. tolerated well. discussed injection techniques. pt verbalized understanding.
--- NOTE | 2017-11-02 17:33 | NUR ---
PATIENT RESTING IN BED. PATIENT REQUESTED REGULAR OTC TYLENOL FOR NECK PAIN. RN NOTIFIED. VITALS TAKEN. FRESH WATER AT BEDSIDE. BED ALARM ON. CALL LIGHT IN REACH. NO OTHER NEEDS AT THIS TIME.
--- NOTE | 2017-11-02 17:54 | NUR ---
pt complained of neck pain 04/17. gave 650mg tylenol po.
--- NOTE | 2017-11-02 19:00 | NUR ---
RECEIVED REPORT FROM RN, PATIENT IS RESTING COMFORTABLY IN BED, BREATHING IS EVEN AND UNLABORED. FLACC SCORE OF 0. CALL LIGHT WITHIN REACH, BED ALARM ON.
--- NOTE | 2017-11-02 19:33 | NUR ---
ASSISTED PATIENT TO BATHROOM WITH SBA. GAIT STEADY. NOW RESTING IN BED AGAIN, PATIENT STATES "THAT PAIN PILL IS WORKING. AND I DON'T FEEL VERY NAUSEOUS." DENIES NEEDS AT THIS TIME. CALL LIGHT WITHIN REACH, BED ALARM ON.
--- NOTE | 2017-11-02 20:49 | NUR ---
VITALS AND I&OS DONE AND CHARTED. BLOOD SUGAR CHECK WELL. NOTIFIED EKATERINA MICHAEL OF HIGH BLOOD SUGAR. PT POKED HER FINGER HERSELF. FRESH ICE WATER GIVEN.
--- NOTE | 2017-11-02 21:08 | NUR ---
PATIENT RESTING COMFORTABLY IN BED, BREATHING IS EVEN AND UNLABORED. DENIES NEEDS AT THIS TIME. ASSESSMENT DONE. EDUCATED PATIENT ABOUT BLOOD GLUCOSE TESTING AND INSULIN ADMINISTRATION, PATIENT DEMONSTRATED BOTH SKILLS, DID WELL, REQUIRED MINIMAL INSTRUCTION. CALL LIGHT WITHIN REACH.
--- NOTE | 2017-11-02 21:16 | NUR ---
PRN PAIN MEDICATION GIVEN FOR 5/10 PAIN IN BACK AND NECK. DENIES FURTHER NEEDS. CALL LIGHT WITHIN REACH, BED ALARM ON.
--- NOTE | 2017-11-02 22:37 | NUR ---
ASSISTED PATIENT TO BATHROOM WITH SBA, STEADY GAIT. NOW RESTING IN BED COMFORTABLY, CALL LIGHT WITHIN REACH.
--- NOTE | 2017-11-03 00:07 | NUR ---
PATIENT RESTING COMFORTABLY IN BED, BREATHING IS EVEN AND UNLABORED. FLACC SCORE OF 0. CALL LIGHT WITHIN REACH, BED ALARM ON.
--- NOTE | 2017-11-03 02:51 | NUR ---
PATIENT ASSISTED TO BATHROOM WITH SBA. NOW RESTING IN BED AGAIN, BREATHING IS EVEN AND UNLABORED. REPORTS 7/10 PAIN IN RLQ OF ABD, PRN NORCO GIVEN PER EMAR. PATIENT DENIES FURTHER NEEDS. CALL LIGHT WITHIN REACH.
--- NOTE | 2017-11-03 04:35 | NUR ---
PATIENT RESTING COMFORTABLY IN BED, BREATHING IS EVEN AND UNLABORED. FLACC SCORE OF 0. CALL LIGHT WITHIN REACH, BED ALARM ON.
--- NOTE | 2017-11-03 05:27 | NUR ---
PATIENT'S NIGHT WAS UNEVENTFUL. SHE HAS BEEN RESTING IN BED THROUGHOUT SHIFT, VSS, URINE OUTPUT QS, PAIN WELL CONTROLLED WITH PRN NORCO. CONTINUES TO COMPLAIN OF PAIN IN ABD, NECK, AND BACK. NO COMPLAINTS OF NAUSEA THIS SHIFT. BS REMAINS ABOVE 200, PATIENT DOING OWN BS CHECK AND INSULIN ADMINISTRATION. NO ACUTE CHANGES FROM BEGINNING OF SHIFT.
--- NOTE | 2017-11-03 06:09 | NUR ---
PATIENT RESTING COMFORTABLY IN BED, BREATHING IS EVEN AND UNLABORED. DENIES NEEDS AT THIS TIME. CALL LIGHT WITHIN REACH, BED ALARM ON.
--- NOTE | 2017-11-03 07:46 | NUR ---
PATIENT SITTING IN CHAIR EATING BREAKFAST. PATIENT REPRTS HAVING HAD A SHARP PAIN ON RIGHT SIDE OF ABDOMEN. PATIENT SAYS SHES HUNGRY, BUT DOESNT FEEL LIKE "IT'S CONNECTING" CANT REALLY EAT. BED MADE, GARBAGE EMPTIED. CALL LIGHT IN REACH
--- NOTE | 2017-11-03 08:41 | NUR ---
PT SITTING IN CHAIR. PT COMPLAINT OF MILD NAUSEA, TOLERATIGN FULL LIQUID DIET, PT STATES NAUSEA STARTS IN HER HEAD, OFFERED ICE PACK FOR TENSION HEADACHE. PT EDUCATED ON SIGNS AND SYMPTOMS OF HYPOGLYCEMIA WHEN TAKING INSULIN. PT ABLE TO ADMINISTER 45 UNITS LEVEMIR TO ABD, PT ABLE TO CHECK BLOOD GLUCOSE THIS AM, BLOOD GLUCOE 118, SS INSULIN HELD. PT ON ROOM AIR, LUNG SOUNDS CLEAR. PT COMPLAINT OF PAIN TO BACK AND NECK, RATING PAIN 8/10. PT WITHOUT EDEMA, CMS INATCT. BOWLE TONES HYPOACTIVE.
--- NOTE | 2017-11-03 09:25 | NUR ---
PATIENT SITTING ON EDGE OF BED. MOM IN RM. VITALS AND I/OS DONE. CALL LIGHT IN REACH.
--- NOTE | 2017-11-03 10:30 | NUR ---
PT REQUESTING DIET SODA, PROVIDED. PT CONTINUES TO REPORT SLIGHT NAUSEA AND ABD PAIN. GIVEN SCHEDULED REGLAN. DISCUSSED DIET FOR LUNCH. PT WOULD LIKE TO STAY ON FULL LIQUID DIET. PT DENIES OTHER NEEDS AT THIS TIME.
--- NOTE | 2017-11-03 11:30 | NUR ---
PT ABLE TO CHECK BLOOD GLUCOSE WITHOUT ASSISTANCE, EDUCATED ON USING SIDE OF FINGER TO DECREASED PAIN. PT BLOOD GLUCOSE 215. PT EATING LUNCH. PT DENIES OTHER NEEDS AT THIS TIME.
--- NOTE | 2017-11-03 11:45 | NUR ---
PT ABLE TO SELF ADMINISTER 8 UNITS SS INSULIN WITHOUT ASSISTANCE. PT EDUCATED ON INCREASING ACTIVITY FOR DIABETES MANAGMENT, PT VERBALIZED UNDERSTANDING, PT ABLE TO PROVIDE EXAMPLE OF HOW TO INCREASE ACTIVITY. PT DENIES OTHER NEEDS AT THIS TIME.
--- NOTE | 2017-11-03 13:10 | NUR ---
PT SITTING IN CHAIR. PT STATES PAIN BETTER AFTER PASSING FLATUS, PT AGREEABLE TO DIABETIC DIET. PT INDEPENDENT IN ROOM, PT TO SHOWER. PT DENIES OTHER NEEDS AT THIS TIME.
--- NOTE | 2017-11-03 13:10 | NUR ---
SET PATIENT UP FOR SHOWER. EKATERINA FORTUNE IN TO GIVE MEDS. PATIENT IS AWARE TO USE CALL LIGHT IN BR FOR ASSISTANCE IN SHOWER. NO OTHER NEEDS
--- NOTE | 2017-11-03 13:20 | NUR ---
PT SITTING IN CHAIR. PT TOLERATING FULL LIQUID DIET. PT STATES SHE PASSED FLATUS AND ABD PAIN IS FEELING A LITTLE BETTER. PT AGREEABLE TO ATTEMPT REGULAR ADA DIET FOR DINNER, ASSISTED WITH ORDERING. PT DENIES OTHER NEEDS AT THIS TIME.
--- NOTE | 2017-11-03 15:15 | NUR ---
PT ASSISTED TO BATHROOM AND BACK TO BED. PT DENIES NEEDS AT THIS TIME.
--- NOTE | 2017-11-03 17:19 | NUR ---
PATIENT RESTING IN BED. VITALS AND I/OS DONE. DR MCLEAN AND EKATERINA FORTUNE IN ROOM. CALL LIGHT IN REACH NO OTHER NEEDS
[2017-11-03] MEDS ORDERED: NOVOLOG100 UNIT/2 SUB-Q (17:57)
[2017-11-03] MEDS ORDERED: LIPITOR20 MG PO (17:57)
[2017-11-03] MEDS ORDERED: HYDROCODON-ACE1 EAC8 PO (17:57)
[2017-11-03] MEDS ORDERED: TRICOR145 MG PO (17:57)
[2017-11-03] MEDS ORDERED: INSULIN SYRING1 EA11 MISC (17:57)
[2017-11-03] MEDS ORDERED: LANTUS100 UNITS/ SUB-Q (17:57)
[2017-11-03] MEDS ORDERED: PROMETHAZINE12.5 M1 PO (17:59)
[2017-11-03] MEDS ORDERED: ONDANSETRON HCL4 MG PO (17:59)
--- NOTE | 2017-11-03 18:14 | NUR ---
EDUCATION PROVIDED ON HOW TO DRAW UP INSULIN, PT PRACTICED WITH INSULIN SYRINGES AND STERILE WATER, PT ABLE TO DEMONSTRATE CORRECT TECHNIQUE WITH SOME ASSISTANCE. PT AGREEABLE TO CONTINUE PRACTICING THIS EVENING AND TOMORROW. PT DENIES TOHER NEEDS AT THIS TIME.
--- NOTE | 2017-11-03 18:17 | NUR ---
PT CONTINUES TO HAVE ABD PAIN, CONTROLLED WITH PRN NORCO. PT ON ROOM AIR, LUNG SOUNDS CLEAR. PT MET WITH CLINICAL CONSULTANT TODAY, PT ABLE TO SELF ADMINISTER INSULIN, CORRECTLY READS SLIDING SCALE FOR DOSAGE, AND PRACTICED DRAWING UP INSULIN, CONTINUE TO PROVIDE HANDS ON EDUCATION. PT TOLERATING FULL LIQUID, ADVANCED TO ADA DIET. PLAN FOR DISCHARGE TOMORROW IF PT CONTINUES TO TOLERATE DIET.
--- NOTE | 2017-11-03 20:00 | NUR ---
RECEIVED REPORT AT 1900, FOUND PT IN BED SLEEPING. DAY SHIFT RN, PT AND I TALKED ABOUT INSULIN INJECTION TEACHING THAT NEEDED TO BE DONE TONIGHT. PT DENIED PAIN AND HAD NO OTHER CONCERNS AT THAT TIME.
--- NOTE | 2017-11-03 20:23 | NUR ---
VITALS AND I&OS DONE AND CHARTED. BEDSIDE TABLE AND CALL LIGHT IN REACH. PT NEEDS NOTHING ELSE AT THIS TIME.
--- NOTE | 2017-11-03 21:07 | NUR ---
Charge nurse rounding note:. Awake, watching tv, no c/o cp or sob. Writtena nd verbal information r/t home cardiac diet changes, and pamphlet r/t non specific chest pain given at her requests, all questins answered to her satisfaction. No other requests
--- NOTE | 2017-11-03 22:00 | NUR ---
V/S ARE WDL, ABD IS FAMILY LAW LEGAL ASSISTANT TO TOUCH, ABDS SOUNDS ARE PRESENT. ALL LOBES ARE CLEAR. PT IS AAOX4. INSULIN INJECTION TEACHING WAS DONE AT 2100. PT SELF INJECTED, AND ALSO TOOK HER OWN BLOOD SUGAR. BG WAS 185, 4 UNITS OF NOVOLOG AND 45UNITS OF LEVEMIR WERE GIVEN. PT DOES NEED MORE PRACTICE. NO OTHER CONCERNS AT THIS TIME.
--- NOTE | 2017-11-04 | NUR ---
PT IS SLEEPING AT THIS TIME.
--- NOTE | 2017-11-04 02:00 | NUR ---
PT NEEDED 1TAB OF NORCO FOR ABD PAIN. PT STATED THAT NAUSEA AT THIS TIME IS TOLERABLE. PT HAS BEEN AWAKE FOR A WHILE.
--- NOTE | 2017-11-04 04:00 | NUR ---
PT IS SLEEPING AT THIS TIME.
--- NOTE | 2017-11-04 05:12 | NUR ---
AT START OF SHIFT BLOOD GLUCOSE CHECK AND INSULIN ADMINISTRATION TEACHING WAS DONE. PT NEEDS MORE PRACTICE. BG WAS 185, PT RECEIVED 4 UNITS OF NOVOLOG, 45 UNITS OF LEVEMIR. PT NEEDED ONE NORCO FOR PAIN. PT ALSO HAD AN EPISODE OF NAUSEA WHICH SUBSIDED AFTER NORCO WAS GIVEN. PT HAS BEEN SLEEPING SINCE. OVERALL PT HAS TOLERATED FOODS EATEN WELL. V/S SO FAR ARE WDL. ALL LOBES ARE CLEAR. ABD SOUNDS ARE PRESENT. ABD IS EXECUTOR OF ESTATE TO TOUCH HOWEVER. NO PERIPHERAL EDEMA NOTED. NO OTHER CONCERNS AT THIS TIME. URINE OUTPUT HAS BEEN ADEQUATE.
--- NOTE | 2017-11-04 07:05 | NUR ---
BEDSIDE HANDOFF REPORT RECEIVED FROM [employer] SOLUTION ARCHITECT RN. PT SLEEPING, LEFT UNDISTURBED.
--- NOTE | 2017-11-04 07:57 | NUR ---
PATIENT SITTING UP IN CHAIR. BLOOD SUGAR CHECK DONE. GARBAGE EMPTIED. SET UP FOR AM CARE. FRESH ICE WATER AND ICE PACK GIVEN. EKATERINA FORTUNE IN TO DISCUSS BS.
--- NOTE | 2017-11-04 09:00 | NUR ---
PT RESTING IN BED. PT COMPLAINT OF PAIN TO LOWER ABD, STATES "MY UTERUS IS HURTING", RATING PAIN 9/10 AT THIS TIME. PT REQUESTING NORCO, GIVEN 1 TAB PER ORDER. PT ON ROOM AIR, LUNG SOUNDS CLEAR. PT TOLERATING ADA DIET, DENIES NAUSEA, BOWEL TONES ACTIVE. PT UP INDEPENDENT IN THE ROOM. CMS INTACT, WITHOUT EDEMA. PT CONTINUES TO REQUIRE EDUCATION ON DIABETEES, PT ABLE TO STATE THAT SHE WILL CHECK HER BLOOD SUGAR BEFORE MEALS, PT ABLE TO DEMONSTRATE CORRECTLY READING SLIDING SCALE AND SELF INJECTING, PROVIDED TIME TO PRACTICE DRAWING UP INSULIN. PT DENIES OTHER NEEDS AT THIS TIME.
--- NOTE | 2017-11-04 09:55 | NUR ---
PATIENT RESTING IN BED. VITALS AND I/OS DONE CALL LIGHT IN REACH. CO OTHER NEEDS ATT
--- NOTE | 2017-11-04 10:40 | NUR ---
PATIENT AMBULATING IN HALLS, TOLERATED WELL. REPORTS FEELING "YUCKY DOWN THERE AGAIN" WHEN BACK TO . LINENS CHANGED, FRESH ICE WATER AND ICE PACK. CALL LIGHT IN REACH. PATIENT IN CHAIR.
--- NOTE | 2017-11-04 11:58 | NUR ---
MD TO BEDSIDE TO EVALUATE PT. PLAN TO DISCHARGE THIS AFTERNOON. PT EATING [facility] PT DENIES OTHER NEEDS AT THIS TIME.
--- NOTE | 2017-11-04 12:10 | NUR ---
MD TO BEDSIDE TO EVALUATE PT. PLAN FOR DISCHARGE TODAY. PT SITTING IN CHAIR, EATING LUNCH. 12 UNITS SS INSULIN GIVEN TO PT FOR BLOOD GLUCOSE 263. PT ABLE TO SELF ADMINISTER DOSE. PT PRACTICED DRAWING UP CORRECT DOSE. PT DENIES OTHER NEEDS AT THIS TIME.
--- NOTE | 2017-11-04 13:11 | NUR ---
PATIENT BEING D/C. EKATERINA FORTUNE AND PATIENTS MOTHER IN . EKATERINA GOING OVER D/C PLANS.VITALS AND I/OS DONE.
--- NOTE | 2017-11-04 15:59 | NUR ---
CALLED KAREN MARTIN [facility] RN TO INFORM OF PATIENTS DISCHARGE TODAY. MESSAGE LEFT ON VOICEMAIL.
== END 2017-11-04 13:25 | disposition home or self-care (01) | DRG 438 ==
LOC: ED 10:59 → CCU 13:41 → MS 10-30 23:22
PROVIDERS: ADMIT Internal Medicine
DX: K85.90 Acute pancreatitis without necrosis or infection, unspecified (principal); E11.10 Type 2 diabetes mellitus with ketoacidosis without coma; G93.41 Metabolic encephalopathy; N17.9 Acute kidney failure, unspecified; Z68.41 Body mass index [BMI] 40.0-44.9, adult; E78.1 Pure hyperglyceridemia; E78.5 Hyperlipidemia, unspecified; I10 Essential (primary) hypertension; M62.81 Muscle weakness (generalized); E87.6 Hypokalemia; E83.39 Other disorders of phosphorus metabolism; E55.9 Vitamin D deficiency, unspecified; N14.1 Nephropathy induced by other drugs, medicaments and biological substances; T50.8X5A Adverse effect of diagnostic agents, initial encounter; D64.9 Anemia, unspecified; J45.909 Unspecified asthma, uncomplicated; E66.01 Morbid (severe) obesity due to excess calories; Z87.891 Personal history of nicotine dependence; Z88.4 Allergy status to anesthetic agent; Z79.1 Long term (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 of non-steroidal anti-inflammatories (NSAID); Z79.52 Long term (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 of systemic steroids; Z79.899 Other long term (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; Y92.239 Unspecified place in hospital as the place of occurrence of the external cause
CPT/HCPCS: 36415; 74160; 74177; 80048; 80053; 80061; 80069; 80076; 81001; 82010; 82306; 82330; 82565; 82607; 82728; 82746; 82800; 83036; 83540; 83605; 83690; 83735; 84100; 84132; 84439; 84443; 84466; 84478; 84484; 84520; 84703; 85025; 85045; 93005; 93010; 94760; 96374; 96375; 97110; 97116; 97163; 99285; J1170; J1200; J1650; J2405; J2550; J2920; J3475; J3480; J7030; J7040; J7042; J7060; Q9967

== ENCOUNTER 2017-11-08 00:31 | Emergency (ER) | payer OTHER ==
[~2017-11-08] VITALS: Ht 165.1 cm; Wt 122.5 kg
--- OUTSIDE RECORDS SUMMARY | ~2017-11-08 | XMS | Clinical Summary ---
Demographics + + + | Address | [address] | | | [place] [address] | + + + | Home Phone [...] Team Providers + +------+ + | Care Hardware Sales Assistant Name | Role | Phone | + +------+ + | Quentin Manriquez | PP | | + +------+ + Source Comments WHITNEY is fully live on both EpicCare Ambulatory and EpicCare InPatient.Formerly [facility] Allergies + + + + [...] | | | | (FLU SHOT) | 8 | | | + + + + + Results Not on filefrom Last 3 Months
[~2017-11-08 00:31] MED LIST changes: +ACID CONTROL150 MG PO; +HYDROCODON-ACE1 EAC8 PO; +INSULIN SYRING1 EA11 MISC; +LANTUS100 UNITS/ SUB-Q; +LIPITOR20 MG PO; +MECLIZINE HCL25 MG PO; +MULTIVITAMINS1 EAC8 PO; +NON-DROWSY ALLE10 MG PO; +NOVOLOG100 UNIT/2 SUB-Q; +ONDANSETRON HCL4 MG PO; +PROMETHAZINE12.5 M1 PO; +TRICOR145 MG PO; +TYLENOL325 MG PO
[2017-11-08] MEDS ORDERED: POTASSIUM CHLO10 MEQ PO (04:19)
--- NOTE | 2017-11-08 19:57 | EKG ---
[facility] [address] [place] [address] Signed Normal sinus rhythm with sinus arrhythmia Normal ECG When compared with ECG of 28-OCT-2017 13:50, Vent. rate has decreased BY 37 BPM Confirmed by JOSSIE MCLEAN MD ([id number]) on 11/08/2017 7:57:06 PM Electronically Signed By: JOSSIE MCLEAN MD 11/08/17 195 PATIENT NAME: ANA MARIA TURCIOS Electrocardiogram DATE OF : 72 PHYSICIAN: JOSSIE MCLEAN MD REPORT #: [id number] REPORT IS CONFIDENTIAL AND NOT TO BE RELEASED WITHOUT AUTHORIZATION
== END 2017-11-08 04:42 | disposition home or self-care (01) ==
LOC: ED 00:31
DX: E87.6 Hypokalemia (principal); G89.29 Other chronic pain; M79.1 Myalgia; K85.90 Acute pancreatitis without necrosis or infection, unspecified; I10 Essential (primary) hypertension; J45.909 Unspecified asthma, uncomplicated; Z87.891 Personal history of nicotine dependence; Z88.8 Allergy status to other drugs, medicaments and biological substances; Z91.041 Radiographic dye allergy status; Z79.899 Other long term (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; Z79.4 Long term (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
CPT/HCPCS: 71045; 74176; 80053; 81001; 83690; 83880; 84484; 85025; 93005; 93010; 96374; 96376; 99284; J3480

== ENCOUNTER 2018-03-13 16:18 | Emergency (ER) | payer OTHER ==
[~2018-03-13] VITALS: Ht 165.1 cm; Wt 122.5 kg
[~2018-03-13 16:18] MED LIST changes: +POTASSIUM CHLO10 MEQ PO
== END 2018-03-13 18:22 | disposition home or self-care (01) ==
LOC: ED 16:18
DX: M54.5 Low back pain (principal); G89.29 Other chronic pain; I10 Essential (primary) hypertension; E11.9 Type 2 diabetes mellitus without complications; Z88.4 Allergy status to anesthetic agent; Z91.041 Radiographic dye allergy status; Z79.4 Long term (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; Z98.890 Other specified postprocedural states
CPT/HCPCS: 72100; 99283

== ENCOUNTER 2018-08-10 21:02 | Emergency (ER) | payer OTHER ==
[~2018-08-10] VITALS: Ht 165.1 cm; Wt 120.7 kg
[~2018-08-10 21:02] MED LIST changes: +METHOCARBAMOL500 MG PO; +NEURONTIN300 MG PO
--- OUTSIDE RECORDS SUMMARY | 2018-08-10 21:08 | XMS ---
PreManage Notification: ANA MARIA TURCIOS Security Bankruptcy Law Specialist Events No recent Security Events currently on file CRITERIA MET - Group Notification CARE PROVIDERS UYLISA MELGAR Family Medicine 03/14/2018-Current PHONE: Unknown SANTO HORN I Family Medicine 07/10/2018-Current DO MITCHELL PHONE: Unknown CARMELINA ESPINAL Primary Care Current PHONE: [phone] Jannette Boyle Primary Care Margo FINN PHONE: [phone] Claudia has no Care Guidelines for this patient. Care History Medical/Surgical 07/10/2018 [facility] - Patient is currently established with [facility]. If patient is seen in the ED during business hours. Please contact CHWs at [facility]. Care Recommendation: This patient has had 5 or more Emergency Department visits in the last 12 months.\T\nbsp; Patient requires education on the scope and purpose of the ED as an acute care provider not a Primary Care Provider and should not be utilized for chronic conditions.\T\nbsp; These are guidelines and the provider should exercise clinical judgment when providing care. 05/16/2018 [facility] - PATIENT HAS A FOLLOW UP APT WITH DR HORN ON 05/23. - MSE CLINIC NOTATIONS FROM 05/15/18 CLINIC VISIT LISTED UNDER NOTES ON CLAUDIA. 04/18/2018 [facility] - Patient is currently working with Claudette TOBARribbon inker from [facility]- Contact ) if patient is seen in ED. - Claudette has educated patient on diabetic education, but patient is not willing to follow up with further education. - Patient request pain medications at every PCP visit. - Patient has declined mental health evaluation from [facility]. Care Recommendation: - USE EXTREME CAUTION IN GIVING NARCOTICS TO THIS PATIENT. - Avoid Discharge Narcotic prescriptions if at all possible. Please use clinical judgement. 04/05/2018 [facility] HISTORY:\T\nbsp; CHRONIC BACK PAIN DUE TO DEGEN DISC DISEASE/ ASTHMA/ BOARDERLINE DM/ LEFT OVARIAN CYST. 10/10/2017 [facility] - Patient is utilizing PCP office. Last seen by PCP on 09/16/17 Jannette Childress. - Please refer patient to PCP for chronic conditions. - All medications are being refilled by [facility] currently. - [facility] Case Management currently case managing, Claudette has been in touch with the patient. - Michelle Diabetic case management social worker -[facility]. - Discontinuing sliding scale, set unit to take to make it easier for patient. - Cancelled with [employer] several times. Care Recommendation: This patient has had 5 or more Emergency Department visits in the last 12 months. Patient requires education on the scope and purpose of the ED as an acute care provider not a Primary Care Provider and should not be utilized for chronic conditions. If patient returns to ED please contact Community Health Worker Yoko at [phone]. These are guidelines and the provider should exercise clinical judgment when providing care. E.D. VISIT COUNT (12 MO.) 10 [facility] TOTAL 10 NOTE: Visits indicate total known visits. ED/C VISIT TRACKING (12 MO.) 08/10/2018 21:03 [facility] [place] TYPE: Emergency COMPLAINT: - ABD PAIN 07/07/2018 17:01 [facility] [place] TYPE: Emergency COMPLAINT: - POSS STROKE DIAGNOSES: - Unspecified asthma, uncomplicated - Other mcfp (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 - Radiographic dye allergy status - Type 2 diabetes mellitus with diabetic polyneuropathy - Allergy status to anesthetic agent status - Other disturbances of skin sensation 05/15/2018 10:06 [facility] [place] TYPE: Emergency COMPLAINT: - WOUND CHECK/MSE TO CLINIC DIAGNOSES: - Encounter for surgical aftercare following surgery on the skin and subcutaneous tissue 04/15/2018 21:43 [facility] [place] TYPE: Emergency COMPLAINT: - ABD PAIN DIAGNOSES: - Allergy status to anesthetic agent status - Essential (primary) hypertension - Other ferry terminal agent (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 - Personal history of nicotine dependence - Radiographic dye allergy status - Left upper quadrant pain 03/13/2018 16:18 [facility] [place] TYPE: Emergency COMPLAINT: - BACK PAIN/NO INJURY DIAGNOSES: - OTHER SPECIFIED POSTPROCEDURAL STATES - Low back pain - Radiographic dye allergy status - Type 2 diabetes mellitus without complications - group home (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 - Essential (primary) hypertension - Other specified postprocedural states - Allergy status to anesthetic agent status - Other chronic pain 11/08/2017 00:32 [facility] [place] TYPE: Emergency COMPLAINT: - MULTIPLE COMPLAINTS DIAGNOSES: - Hypokalemia - Allergy status to other drugs, medicaments and biological substances status - Unspecified asthma, uncomplicated - Other ferry terminal agent (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 - Shortness of breath - Personal history of nicotine dependence - Myalgia - Essential (primary) hypertension - ACUTE PANCREATITIS WITHOUT NECROSIS OR INFECTION, - Acute pancreatitis without necrosis or infection, unspecified - Radiographic dye allergy status - Pain, unspecified - Other chronic pain - group home (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 10/28/2017 10:59 [facility] [place] TYPE: Emergency COMPLAINT: - WEAKNESS,NAUSEA 10/08/2017 16:26 [facility] [place] TYPE: Emergency COMPLAINT: - EXTREMITY TINGLING DIAGNOSES: - Cervicalgia - Personal history of nicotine dependence - Essential (primary) hypertension - Allergy status to anesthetic agent status - Other mcfp (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 - Radiculopathy, cervical region 09/15/2017 20:07 [facility] [place] TYPE: Emergency COMPLAINT: - L ABD PAIN DIAGNOSES: - Essential (primary) hypertension - Acquired absence of other specified parts of digestive tract - Other mcfp (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 - Right upper quadrant pain - Unspecified asthma, uncomplicated - Left upper quadrant pain - Type 2 diabetes mellitus without complications - Allergy status to analgesic agent status - Personal history of nicotine dependence 09/01/2017 17:[address] [facility] [place] TYPE: Emergency COMPLAINT: - FLU SYMPTOMS DIAGNOSES: - Otalgia, right ear - Allergy status to anesthetic agent status - Acquired absence of other specified parts of digestive tract - Essential (primary) hypertension - Unspecified asthma, uncomplicated - Other ferry terminal agent (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 - Otitis media, unspecified, right ear - Cough - Acquired absence of other organs INPATIENT VISIT TRACKING (12 MO.) 10/28/2017 13:[address] [facility] [place] TYPE: Medical Surgical COMPLAINT: - DKA DIAGNOSES: - Metabolic encephalopathy - Anemia, unspecified - Allergy status to anesthetic agent status - group home (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 of non-steroidal anti-inflammatories (NSAID) - Acute pancreatitis without necrosis or infection, unspecified - group home (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 of systemic steroids - Essential (primary) hypertension - Type 2 diabetes mellitus with ketoacidosis without coma - Nephropathy induced by other drugs, medicaments and biological substances - Adverse effect of diagnostic agents, initial encounter - Personal history of nicotine dependence - Muscle weakness (generalized) - Vitamin D deficiency, unspecified - Hypokalemia - Other mcfp (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 - Hyperlipidemia, unspecified - Pure hyperglyceridemia - Acute kidney failure, unspecified - Body mass index (BMI) 40.0-44.9, adult - Other disorders of phosphorus metabolism - Unspecified place in hospital as the place of occurrence of the external cause - Unspecified asthma, uncomplicated - Morbid (severe) obesity due to excess calories [email or web address]
== END 2018-08-11 00:51 | disposition home or self-care (01) ==
LOC: ED 21:02
DX: R10.31 Right lower quadrant pain (principal); R10.32 Left lower quadrant pain; G89.29 Other chronic pain; I10 Essential (primary) hypertension; J45.909 Unspecified asthma, uncomplicated; E11.9 Type 2 diabetes mellitus without complications; Z87.891 Personal history of nicotine dependence; Z90.49 Acquired absence of other specified parts of digestive tract; Z88.4 Allergy status to anesthetic agent; Z91.041 Radiographic dye allergy status; Z79.899 Other long term (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
CPT/HCPCS: 74176; 80053; 81001; 83690; 84703; 85025; 96374; 99284-25; J2405

== ENCOUNTER 2018-10-18 07:45 | Day surgery (SDC) | payer OTHER ==
[~2018-10-18] VITALS: Ht 165.1 cm; Wt 125.2 kg
[~2018-10-18 07:45] MED LIST changes: +CEFDINIR300 MG PO; +HUMALOG100 UNIT/2 SUB-Q; +LANTUS SOL100 UNIT/1 SUB-Q; +VICTOZA 2-0.6 MG/0.1 SUB-Q
--- NOTE | 2018-10-18 14:55 | OR ---
[facility] [address] [place], [place] [address] Signed DATE OF OPERATION: 10/18/2018 SURGEON: Santo Horan MD PREOPERATIVE DIAGNOSIS: Right lower quadrant abdominal wall subcutaneous foreign body (hypodermic needle). POSTOPERATIVE DIAGNOSIS: Foreign body not found. PROCEDURES: 1. Exam under anesthesia. 2. Physician-directed fluoroscopy. ESTIMATED BLOOD LOSS: None. FINDINGS: Ana Maria has cholecystectomy clips in the right upper quadrant. She also has lumbar hardware what looks like three clips associated with the lumbar surgery. We could not find any other foreign bodies with our fluoroscopy unit. We did download the pictures from [email or web address] and compared those with some of her previous x-rays at [facility]. In the end, we felt these were surgical clips and we could not find a hypodermic needle that would be associated with insulin injection. Consequently, we did not perform an incision and we are going to check some additional abdominal x-rays once she recovers from her anesthesia. INDICATIONS: Ana Maria is a 48-year-old obese diabetic female who has to use insulin for her diabetes. She is quite confident that she had a needle break off in the right lower quadrant of her abdomen. She told us she thought it was much higher closer to the right upper quadrant. However, she had some outpatient x-rays performed and there was a concern that there was a short piece of hypodermic needle in the subcutaneous space about 2 inches above the umbilicus. When I spoke with Ana Maria, she thought the entire needle broke off inside the adipose tissue. She felt like it was causing some pain, so she was referred to me as a local surgeon. We decided to bring her to the operating room under fluoroscopy to see if we could find that hypodermic needle. I explained that to her in detail and I explained to her that there are risk of surgery including, but not limited to bleeding, infection, scarring, change in contour of the skin as well as inability to find a foreign body. She had expressed understanding and wished to proceed. Electronically Signed By: SANTO HORAN MD 10/18/18 1455 PATIENT NAME: ANA MARIA TURCIOS OPERATIVE REPORT DATE OF : 72 REPORT #: [id number] PHYSICIAN: SANTO HORAN MD PCP: SANTO HORN MD REPORT IS CONFIDENTIAL AND NOT TO BE RELEASED WITHOUT AUTHORIZATION [facility] [address] [place] [id number] Signed PROCEDURE NOTE: I met with Ana Maria in our preop area and she told myself and our anesthesia provider that she thought the needle was higher in the right upper quadrant. I had reviewed the outpatient abdominal x-ray report with her and again felt that it was much higher than what was reported on her outpatient x-ray. Consequently, we went ahead and marked both areas and decided to take her into the operating room. She was placed under monitored anesthesia care and given preoperative antibiotics along with subcutaneous heparin. SCDs were utilized. She was prepped and draped in usual sterile fashion. We then used our fluoroscopy unit and we found her standard cholecystectomy clips. We could see the hardware in the lumbar spine and what looks like three clips associated with that surgery. Even with the table turned and so forth, we never could find anything that would represent either part or all of the hypodermic needle. We downloaded the x-rays from [facility]. We found that they were a bit blurry. There is some concern about a possible piece of hypodermic needle underneath the skin just above the umbilicus. It is a very short piece. Maybe a centimeter at most. In the AP view, we thought that was more than likely a clip because of the width that we observed. In the end, we decided not to make an incision explored. We decided we would allow her to wake up in recovery room. We will take her down to our x-ray department and we will do at least two views of the abdomen and see if we can locate this subcutaneous foreign body. If that is true, then I would have her back in the office when she is not sedated, so we could consent her appropriately and go through the details and then on the day repeat surgery, we would have to have our x-ray department relocate that for us before coming back down to the OR. As a result, we will have Ana Maria back in the office here in a week or so. Santo Horan MD ALB/MODL /[id number] cc: ANNETTE Garcia MD Electronically Signed By: SANTO HORAN MD 10/18/18 1455 PATIENT NAME: ANA MARIA TURCIOS OPERATIVE REPORT DATE OF : 72 REPORT #: [id number] PHYSICIAN: SANTO HORAN MD PCP: SANTO HORN MD REPORT IS CONFIDENTIAL AND NOT TO BE RELEASED WITHOUT AUTHORIZATION [facility] [address] [place], [place] [address] Signed Copies: UZMA HOFFMANN ANDREW L MD ~ Electronically Signed By: SANTO HORAN MD 10/18/18 1455 PATIENT NAME: ANA MARIA TURCIOS OPERATIVE REPORT DATE OF : 72 REPORT #: [id number] PHYSICIAN: SANTO HORAN MD PCP: SANTO HORN MD REPORT IS CONFIDENTIAL AND NOT TO BE RELEASED WITHOUT AUTHORIZATION
== END 2018-10-18 12:25 | disposition home or self-care (01) ==
LOC: DS 07:45 → OPS 07:45 → DS 09:00
DX: S30.851A Superficial foreign body of abdominal wall, initial encounter (principal); I10 Essential (primary) hypertension; J45.909 Unspecified asthma, uncomplicated; K21.9 Gastro-esophageal reflux disease without esophagitis; K59.00 Constipation, unspecified; E55.9 Vitamin D deficiency, unspecified; E11.9 Type 2 diabetes mellitus without complications; Z87.891 Personal history of nicotine dependence; Z79.4 Long term (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
CPT/HCPCS: 74019; 99156; 99157; J0690; J1644; J2250; J2704; J7120

== ENCOUNTER 2019-01-18 16:27 | Emergency (ER) | payer OTHER ==
[~2019-01-18] VITALS: Ht 165.1 cm; Wt 125.2 kg
--- OUTSIDE RECORDS SUMMARY | 2019-01-18 16:30 | XMS ---
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 Care History Medical/Surgical 07/10/2018 [facility] - Patient is currently established with [facility]. If patient is seen in the ED during business hours. Please contact CHWs at [facility]. Care Recommendation: This patient has had 5 or more Emergency Department visits in the last 12 months.\T\nbsp; Patient requires education on the scope and purpose of the ED as an acute care provider not a Primary Care Provider and should not be utilized for chronic conditions.\T\nbsp; These are guidelines and the provider should exercise clinical judgment when providing care. 05/16/2018 [facility] - PATIENT HAS A FOLLOW UP APT WITH DR ABRAMS ON 05/23. - MSE CLINIC NOTATIONS FROM 05/15/18 CLINIC VISIT LISTED UNDER NOTES ON CLAUDIA. 04/18/2018 [facility] - Patient is currently working with Claudette TOBARliability claims manager from [facility]- Contact ) if patient is seen in ED. - Claudette has educated patient on diabetic education, but patient is not willing to follow up with further education. - Patient request pain medications at every PCP visit. - Patient has declined mental health evaluation from [facility]. Care Recommendation: - USE EXTREME CAUTION IN GIVING NARCOTICS TO THIS PATIENT. - Avoid Discharge Narcotic prescriptions if at all possible. Please use clinical judgement. E.D. VISIT COUNT (12 MO.) 6 [facility] TOTAL 6 NOTE: Visits indicate total known visits. ED/UCC VISIT TRACKING (12 MO.) 01/18/2019 16:29 [facility] [place] TYPE: Emergency COMPLAINT: - SOB/PAIN RIGHT ARM 08/10/2018 21:03 [facility] [place] TYPE: Emergency COMPLAINT: - ABD PAIN DIAGNOSES: - Other care home (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 - Unspecified abdominal pain - Left lower quadrant pain - Type 2 diabetes mellitus without complications - Acquired absence of other specified parts of digestive tract - Essential (primary) hypertension - Unspecified asthma, uncomplicated - Radiographic dye allergy status - Other chronic pain - Allergy status to anesthetic agent status - Personal history of nicotine dependence - Right lower quadrant pain 07/07/2018 17:01 [facility] [place] TYPE: Emergency COMPLAINT: - POSS STROKE DIAGNOSES: - Unspecified asthma, uncomplicated - Other care home (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 - Radiographic dye allergy [...] status - Essential (primary) hypertension - Other long term care social worker (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 - Personal history of nicotine dependence - Radiographic dye allergy status - Left upper quadrant pain 03/13/2018 16:18 [facility] [place] TYPE: Emergency COMPLAINT: - BACK PAIN/NO INJURY DIAGNOSES: - OTHER SPECIFIED POSTPROCEDURAL STATES - Low back pain - Radiographic dye allergy status - Type 2 diabetes mellitus without complications - nursing home (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 - Essential (primary) hypertension - Other specified postprocedural states - Allergy status to anesthetic agent status - Other chronic pain INPATIENT VISIT TRACKING (12 MO.) No inpatient visits to display in this time frame [email or web address]
[2019-01-18] MEDS ORDERED: NYSTATIN15 G2 TOP (16:42)
[2019-01-18] MEDS ORDERED: ROBAXIN-750750 MG PO (18:15)
--- NOTE | 2019-01-18 19:24 | EKG ---
[facility] [address] [place] [address] Signed Normal sinus rhythm Normal ECG When compared with ECG of 10-NOV-2018 08:05, No significant change was found Confirmed by JERI JORDAN MD ([id number]) on 01/18/2019 7:23:47 PM Electronically Signed By: JERI JORDAN MD 01/18/19 1924 PATIENT NAME: ANA MARIA TURCIOS Electrocardiogram DATE OF : 72 PHYSICIAN: JERI JORDAN MD REPORT #: [id number] REPORT IS CONFIDENTIAL AND NOT TO BE RELEASED WITHOUT AUTHORIZATION
== END 2019-01-18 18:55 | disposition home or self-care (01) ==
LOC: ED 16:27
DX: R07.89 Other chest pain (principal); R25.2 Cramp and spasm; I10 Essential (primary) hypertension; J45.909 Unspecified asthma, uncomplicated; E11.9 Type 2 diabetes mellitus without complications; Z87.891 Personal history of nicotine dependence; Z90.49 Acquired absence of other specified parts of digestive tract; Z91.040 Latex allergy status; Z88.4 Allergy status to anesthetic agent; Z88.5 Allergy status to narcotic agent; Z91.041 Radiographic dye allergy status; Z79.4 Long term (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; Z79.899 Other long term (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
CPT/HCPCS: 71045; 80053; 83735; 84484; 85025; 93005; 93010; 99285-25

== ENCOUNTER → 2019-06-08 | Emergency (ER) | payer OTHER ==
[~2019-06-08] VITALS: Ht 165.1 cm; Wt 121.6 kg
[~2019-06-08] MED LIST changes: +LIPITOR10 MG PO; +METFORMIN HYDRO25 GM MISC; +NYSTATIN15 G2 TOP; +VITAMIN D400 UNIT PO
--- OUTSIDE RECORDS SUMMARY | ~2019-06-08 | XMS | Encounter Summary ---
Demographics + + + | Address | [address] | | | [place] [address] | + + + | Home Phone | | + + + | Preferred Language | Unknown | + + + | Marital Status | Single | + + + | Alevism Affiliation | CAT | + + + | Race | Unknown | + + + | Ethnic Group | Not or | + + + Author + + + | Author | [facility] | + + + | Organization | [facility] | + + + | Address | Unknown | + + + | Phone | Unavailable | + + + Support + + +---------+ + | Name | Relationship | Address | Phone | + + +---------+ + | Alisia Nina | ECON | Unknown | | + + +---------+ + Care Team Providers + +------+ + | Care Morgue Technician Name | Role | Phone | [...] | | | | | Procedures | [place], [place] | [facility] | | | | | [address] | [address] | [place] | | | | | BENIGN | Phone: | [phone] | | | | | DISEASE WO | [phone] | Phone: | | | | | [place] [address] | Fax: | [phone] | | | | | SCAN,ORBIT/S | [phone] | Fax: | | | | | CORY/POST | | [phone] | | | | | FOSSA/EAR,W/ | [...] | Dysfunction | Epic Dept | [address] | | | | | of | | [address] | | | | | eustachian | | [address] | | | | | tube | | Mailcode: | | | | | Nonsuppurati | | [address] | | | | | ve otitis | | Physician's | | | | | media, not | | Pavilion | | | | | specified as | | [place], [place] | | | | | acute or | | [address] | | | | | chronic | | Phone: | | | | | Conductive | | [phone] | | | | | hearing | | Fax: | | | | | loss, | | [phone] | | | | | unilateral | [...] Otology Services at | MD Loli [address] | loss in right ear | | | | [address] | [address] | (Primary Dx); | | | | [address] | [place], [place] | Dizziness | | | | Mailcode: [address] | [address] | | | | | [facility] | [phone] | | | | | [place], [place] | | | | | | [address] | | | | | | [phone] | | | +--------+---------+ + + + [...] coordinating of care. Windy Rodriguez MD PhD Payroll Bookkeeper Otology, Neurotology & Skull Base Surgery documented in this encounter Plan of Treatment +--------+ + + + + | Date | Type | Specialty | Care Team | Description | +--------+ + + + + | 06/12/ | Hospital | | Ehsan Cotto MD | | | 2019 | Encounter | | [address] [facility] | | | | | | [facility] | | | | | | [place], [place] | | | | | | [address] | | | | | | [phone] | | | | | | | | +--------+ + + + + | 06/12/ | Appointment | Procedural Care Unit | | | | 2018 | | | | | +--------+ + + + + | 06/12/ | Appointment | Gastroenterology | Ehsan Cotto MD | | | 2018 | | | [address] | | | | | | [address] | | | | | | [place] | | | | | | [address] | | | | | | [phone] | | | | | | | | +--------+ + + + + | 06/27/ | Office | Physical Therapy | Edith Gil, | | | 2018 | Visit | | PT,DPT [address] | | | | | | [address] | | | | | | [place] | | | | | | [address] | | +--------+ + + + + | 06/27/ | Office | Surgery | Jen Coronel, | | | 2018 | Visit | | AGACNP [address] | | | | | | [place], [place] | | | | | | [address] | | | | | | [phone] | | | | | | | | +--------+ + + + + | 06/27/ | Office | Nutrition | Eli Rodas, | | | 2018 | Visit | | RD [address] | | | | | | [address] | | | | | | [place], [place] | | | | | | [address] | | +--------+ + + + + documented as of this encounter Results CT [address] [...] | | | | | | GIORGIO SOY, | | | | | | MDAuthor: [...]
--- OUTSIDE RECORDS SUMMARY | ~2019-06-08 | XMS | Encounter Summary ---
Demographics + + + | Address | [address] | | | [place] [address] | + + + | Home Phone | | + + + | Preferred Language | Unknown | + + + | Marital Status | Single | + + + | Zoroastrianism Affiliation | CAT | + + + | Race | Unknown | + + + | Ethnic Group | Not or | + + + Author + + + | Author | [facility] | + + + | Organization | [facility] | + + + | Address | Unknown | + + + | Phone | Unavailable | + + + Support + + +---------+ + | Name | Relationship | Address | Phone | + + +---------+ + | Alisia Nina | ECON | Unknown | | + + +---------+ + Care Team Providers + +------+ + | Care Cane Packer Name | Role | Phone | + +------+ + | Gracie Lewis PA-C | PCP | | + +------+ + Encounter Details +--------+ + + + + | Date | Type | Department | Care Team | Description | +--------+ + + + + | 05/03/ | Documentati | Digestive Health | Clinic, Surgery | | | 2019 | on | [facility] at [facility] [address] | | | | | | [address] | | | | | | Mailcode: [facility] | [facility] | [facility] | | | | | | [facility]aling, [address] | | | | | | [facility] [place] | | | | | | [address] | | | | | | [phone] | | | +--------+ + + + [...] Cotto MD | | | 2018 | Encounter | | [address] | | | | | | [address] | | | | | | [place], [place] | | | | | | [address] | | | | | | [phone] | | | | | | | | +--------+ + + + + | 06/12/ | Appointment | Procedural Care Unit | | | | 2019 | | | | | +--------+ + + + + | 06/12/ | Appointment | Gastroenterology | Ehsan Cotto MD | | | 2019 | | | [address] | | | | | | [address] | | | | | | [place], [place] | | | | | | [address] | | | | | | [phone] | | | | | | | | +--------+ + + + + | 06/27/ | Office | Physical Therapy | Edith Gil, | | | 2018 | Visit | | PT,DPT [address] | | | | | | [address] | | | | | | [place], [place] | | | | | | [address] | | +--------+ + + + + | 06/27/ | Office | Surgery | Jen Coronel, | | | 2018 | Visit | | AGACNP [address] | | | | | | [place], [place] | | | | | | [address] | | | | | | [phone] | | | | | | | | +--------+ + + + + | 06/27/ | Office | Nutrition | Eli Rodas, | | | 2018 | Visit | | RD [address] | | | | | | [address] | | | | | | [place] | | | | | | [address] | | +--------+ + + + + documented as of this encounter Visit Diagnoses Not on filedocumented in this encounter"
--- OUTSIDE RECORDS SUMMARY | ~2019-06-08 | XMS | Encounter Summary ---
Demographics + + + | Address | [address] | | | [place] [address] | + + + | Home Phone [...] Team Providers + +------+ + | Care Machine Hoop Maker Helper Name | Role | Phone | + [...] | | | | | Procedures | [place], [place] | [facility] | | | | | [address] | [address] | [place], [place] | | | | | BENIGN | Phone: | [phone] | | | | | DISEASE WO | [phone] | Phone: | | | | | [place] [address] | Fax: | [phone] | | | | | SCAN,ORBIT/S | [phone] | Fax: | | | | | CORY/POST | | [phone] | | | | | FOSSA/EAR,W/ | [...] | | | | | Conductive | Armas, Windy | [facility] [address] | | | | | hearing loss | [address] | | | | | in right | [address] | [address] | | | | | ear | [address] | Mailcode: | | | | | Dizziness | Rd | [address] [facility] | | | | | Procedures | [place], [place] | [facility] | | | | | [address] | [address] | [place], [place] | | | | | BENIGN | Phone: | [phone] | | | | | DISEASE WO | [phone] | Phone: | | | | | [place] [address] | Fax: | [phone] | | | | | SCAN,ORBIT/S | [phone] | Fax: | | | | | CORY/POST | | [phone] | | | | | FOSSA/EAR,W/ | | | | | | | O | | | +--------+--------+ + + + + Encounter Details +--------+ + + + + | Date | Type | Department | Care Team | Description | +--------+ + + + + | 08/14/ | Hospital | Diagnostic Imaging | | | | 2014 | Encounter | Services at [facility] | | | | | | [address] | | | | | | [address] Mailcode: | | | | | | [address] [facility] | | | | | | [place], [place] | | | | | | [address] | | | | | | [phone] | | | +--------+ + + + [...] + + +---------+ + + | lisinopril 10 mg | Take 10 mg by mouth | | 0 | | | | oral tablet | once daily. | | | | | + + + +---------+ + + | loratadine 10 mg | Take by mouth. | | 0 | | | | oral capsule | | | | | | + + + +---------+ + + | METFORMIN HCL | Take by mouth. | | 0 | | | | (METFORMIN ORAL) | | | | | | + + + +---------+ + + | Mometasone 220 mcg | Inhale 1 puff once | | 0 | | | | (30 doses) | daily. | | | | | | inhalation aerosol | | | | | | | powdr breath | | | | | | | activated | | | | | | + + + +---------+ + + | montelukast 10 mg | Take 10 mg by mouth | | 0 | | | | oral tablet | once daily in the | | | | | | | evening. | | | | | + + + +---------+ + + | | 1 drop four times | | 0 | | | | naphazoline-pheniram | daily as needed. | | | | | | ine 0.025-0.3 % | | | | | | | ophthalmic drops | | | | | | + + + +---------+ + + | omeprazole 20 mg | Take 20 mg by mouth | | 0 | | | | oral capsule,delayed | once daily. | | | | | | release(DR/EC) | | | | | | + + + +---------+ + + | ondansetron ODT 4 | Take 4 mg by mouth | | 0 | | | | mg oral | every twelve hours | | | | | | tablet,disintegratin | as needed. | | | | | | g | | | | | | + + + +---------+ + + | oxycodone, | Take 1 Tab by mouth | 30 | 0 | 05/08/20 | | | immediate release, 5 | every six hours as | | | 09 | | | mg Oral Tablet | needed. | | | | | + + + +---------+ + + | pantoprazole 40 mg | Take 40 mg by mouth | | 0 | | | | oral tablet,delayed | once daily. | | | | | | release (DR/EC) | | | | | | + + + +---------+ + + | terbinafine 250 mg | Take [...] 2019 | Encounter | | [address] | | | | | | [address] | | | | | | [place] | | | | | | [address] | | | | | | [phone] | | | | | | | [...] Rd | | | | | | [place], [place] | | | | | | [address] | | | | | | [phone] | | | | | | | | +--------+ + + + + | 06/27/ | Office | Physical Therapy | Edith Gil, | | | 2018 | Visit | | PT,DPT [address] | | | | | | [address] | | | | | | [place], [place] | | | | | | [address] | | +--------+ + + + + | 06/27/ | Office | Surgery | Jen Coronel, | | | 2018 | Visit | | AGACNP [address] | | | | | | [place], [place] | | | | | | [address] | | | | | | [phone] | | | | | | | | +--------+ + + + + | 06/27/ | Office | Nutrition | Eli Rodas, | | | 2018 | Visit | | RD [address] | | | | | | [address] | | | | | | [place], [place] | | | | | | [address] | | +--------+ + + + + [...] | | + +---------+ + + | [place] [facility] OF | | | | | RADIOLOGY | | | | + +---------+ + + documented in this encounter Visit Diagnoses + + | Diagnosis | + + | Conductive hearing loss in right ear Conductive hearing loss, unilateral | + + | Dizziness Dizziness and giddiness | + + documented in this encounter"
--- OUTSIDE RECORDS SUMMARY | ~2019-06-08 | XMS | Encounter Summary ---
Demographics + + + | Address | [address] | | | [place] [address] | + + + | Home Phone [...] Author + + + | Author | [facility] | + + + | Organization | [facility] | + + + | Address | Unknown | + + + | Phone | Unavailable | + + + Support + + +---------+ + | Name | Relationship | Address | Phone | + + +---------+ + | Alisia Nina | ECON | Unknown | | + + +---------+ + Care Team Providers + +------+ + | Care Roller Stitcher Name | Role | Phone | + +------+ + | Quentin Manriquez | PCP | | + +------+ + Reason for Visit +---------+ + | Reason | Comments | +---------+ + | Vertigo | | +---------+ + Encounter Details +--------+ + + + + | Date | Type | Department | Care Team | Description | +--------+ + + + + | 04/01/ | Diagnostic | Otolaryngology | Soniya Ren, | Vertigo | | 2013 | Visit | Audiology Services | [facility] [address] | | | | | at [address] | [address] | | | | | [address] | [place] [address] | | | | | Mailcode: [address] | [phone] | | | | | Michelle Aguilera | | | | | | [place], [place] | | | | | | [address] | | | | | | [phone] | | | +--------+ + + + [...] + + documented as of this encounter Nathalie Grayson - 04/25/2014 5:25 PM PDTElectronically signed by Faculty Other at 4 5:25 PM Rianna Grullon - 04/01/2014 9:02 AM PDTName: Demian Nina : 1970 Date of Evaluation: 04/01/2014 Otology Clinic Demian Nina, 44 y.o., was seen for a comprehensive audiological evaluation today as part of Dr. Temple's otology clinic. Please see same day otology note for case history. Audiologic Results: OTOSCOPY (used to evaluate the outer ear): Right ear: Clear external auditory canal with visible tympanic membrane Left ear: Clear external auditory canal with visible tympanic membrane TYMPANOMETRY (used to evaluate middle ear function): Right ear: Flat tracing with normal ear canal volume suggestive of Eustachian tube dysfunct ion and/or probable middle ear effusion Left ear: Negative middle ear pressure noted (-175) with normal ear canal volume and comp liance; suggestive of abnormal middle ear function AUDIOMETRY (used to assess condition of hearing): Jesus Manuels hearing sensitivity was evaluated using conventional audiometry with insert earphon es. Demian conditioned easily to the task and her responses were consistent and considered re liable. Pure-tone air and bone conduction results revealed: Right Ear:A mild to moderate mixed hearing loss. A speech plant floor automation manager threshold was obtain ed at 40 dB HL and is in good agreement with responses to pure-tone stimuli. Word recogniti on ability was 80% when words were presented at a comfortable level of 65 dB HL. Left Ear: Normal hearing sensitivity from 250-4000 Hz, sloping to a mild hearing loss at 6000 Hz, rising to normal hearing at 8000 Hz. A speech plant floor automation manager threshold was obtained at 20 dB HL and is in good agreement with responses to pure-tone stimuli. Word recognition judy lity was 84% when words were presented at a comfortable level of 50 dB HL. [facility]. Please see otology note for appointment detail including treatment/management and recommend ations. documented in this enco unter Plan of Treatment +--------+ + + + + | Date | Type | Specialty | Care Team | Description | +--------+ + + + + | 06/12/ | Hospital | | Ehsan Cotto MD | | | 2018 | Encounter | | [address] | | | | | | [address] | | | | | | [place] | | | | | | [address] | | | | | | [phone] | | | | | | | [...] [address] | | | | | | [place] | | | | | | [address] | | | | | | [phone] | | | | | | | | +--------+ + + + + | 06/27/ | Office | Physical Therapy | Edith Gil, | | | 2018 | Visit | | PT,DPT [address] | | | | | | [address] | | | | | | [place], [place] | | | | | | [address] | | +--------+ + + + + | 06/27/ | Office | Surgery | Jen Coronel, | | | 2018 | Visit | | AGACNP [address] | | | | | | [place] | | | | | | [address] | | | | | | [phone] | | | | | | | | +--------+ + + + + | 06/27/ | Office | Nutrition | Eli Rodas, | | | 2018 | Visit | | RD [address] | | | | | | [address] | | | | | | [place], [place] | | | | | | [address] | | +--------+ + + + + documented as of this encounter Procedures + +--------+ + + + | Procedure Name | Priori | Date/Time | Associated Diagnosis | Comments | | | ty | | | | + +--------+ + + + | MI TYMPANOMETRY | Routin | 04/16/2014 | Mixed hearing | | | | e | 3:45 PM | loss, unilateral | | | | | PDT | | | + +--------+ + + + | [place] COMPREHENSIVE | Routin | 04/16/2014 | Mixed hearing | | | HEARING TEST | e | 3:45 PM | loss, unilateral | | | | | PDT | | | + +--------+ + + + documented in this encounter Visit Diagnoses + + | Diagnosis | + + | Mixed hearing loss, unilateral - Primary | + + documented in this encounter"
--- OUTSIDE RECORDS SUMMARY | ~2019-06-08 | XMS | Encounter Summary ---
Demographics + + + | Address | [address] | | | [place] [address] | + + + | Home Phone | | + + + | Preferred Language | Unknown | + + + | Marital Status | Single | + + + | Rastafarian Affiliation | CAT | + + + [...] Team Providers + +------+ + | Care Technical Support Professional Name | Role | Phone | + +------+ + | Gracie Lewis PA-C | PCP | | + +------+ + Reason for Visit + + + | Reason | Comments | + + + | Medical Records | | | Review | | + + + Encounter Details +--------+ + + + + | Date | Type | Department | Care Team | Description | +--------+ + + + + | 10/19/ | Documentati | Endoscopic | Lab, Gi Procedure | Medical Records | | 2019 | on | Procedural Unit at | | Review | | | | [place] [address] | | | | | | [address] | | | | | | [address] Mailcode: [address] | | | | | | Leana Willy | | | | | | [address] [place], [place] | | | | | | [address] | | | | | | [phone] | | | +--------+ + + + [...] | | | | | [address] | | | | | | [place], [place] | | | | | | [address] | | | | | | [phone] | | | | | | | [...] Rd | | | | | | [place], [place] | | | | | | [address] | | | | | | [phone] | | | | | | | | +--------+ + + + + | 06/27/ | Office | Physical Therapy | Edith Gil, | | | 2018 | Visit | | PT,DPT [address] | | | | | | [address] | | | | | | [place], [place] | | | | | | [address] | | +--------+ + + + + | 06/27/ | Office | Surgery | Jen Coronel, | | | 2018 | Visit | | AGACNP [address] | | | | | | [place], [place] | | | | | | [address] | | | | | | [phone] | | | | | | | | +--------+ + + + + | 06/27/ | Office | Nutrition | Eli Rodas, | | | 2018 | Visit | | RD [address] | | | | | | [address] | | | | | | [place] | | | | | | [address] | | +--------+ + + + + documented as of this encounter Visit Diagnoses Not on filedocumented in this encounter"
--- OUTSIDE RECORDS SUMMARY | ~2019-06-08 | XMS | Encounter Summary ---
Demographics + + + | Address | [address] | | | [place] [address] | + + + | Home Phone | | + + + | Preferred Language | Unknown | + + + | Marital Status | Single | + + + | Confucianism Affiliation | CAT | + + + [...] Team Providers + +------+ + | Care Coupon Clerk Name | Role | Phone | [...] | on | Otology Services at | [facility] | | | | | [address] [facility] | [place], [place] | | | | | [address] | [address] | | | | | Mailcode: [address] | | | | | | [facility] | | | | | | [place], [place] | | | | | | [address] | | | | | | [phone] | | | +--------+ + + + [...] Rd | | | | | | [place], [place] | | | | | | [address] | | | | | | [phone] | | | | | | | [...] Rd | | | | | | [place], [place] | | | | | | [address] | | | | | | [phone] | | | | | | | | +--------+ + + + + | 06/27/ | Office | Physical Therapy | Edith Gil, | | | 2018 | Visit | | PT,DPT [address] | | | | | | [address] | | | | | | [place], [place] | | | | | | [address] | | +--------+ + + + + | 06/27/ | Office | Surgery | Jen Coronel, | | | 2018 | Visit | | AGACNP [address] | | | | | | [place], [place] | | | | | | [address] | | | | | | [phone] | | | | | | | | +--------+ + + + + | 06/27/ | Office | Nutrition | Eli Rodas, | | | 2018 | Visit | | RD [address] | | | | | | [address] | | | | | | [place], [place] | | | | | | [address] | | +--------+ + + + + documented as of this encounter Visit Diagnoses Not on filedocumented in this encounter"
--- OUTSIDE RECORDS SUMMARY | ~2019-06-08 | XMS | Encounter Summary ---
Demographics + + + | Address | [address] | | | [place] [address] | + + + | Home Phone [...] Team Providers + +------+ + | Care Mannequin Maker Name | Role | Phone | + +------+ + | Quentin Manriquez | PCP | | + +------+ + Encounter Details +--------+ + + + + | Date | Type | Department | Care Team | Description | +--------+ + + + + | 02/16/ | Abstract | Digestive Health | Clinic, | | | 2017 | | [place] [facility] [address] | Gastroenterology | | | | | [address] | | | | | | Mailcode: [place] | | | | | | [facility] and | | | | | | Healing, Building [address] | | | | | | [place], [place] | | | | | | [address] | | | | | | [phone] | | | +--------+ + + + [...] Rd | | | | | | [place], [place] | | | | | | [address] | | | | | | [phone] | | | | | | | [...] Rd | | | | | | [facility] [place] | | | | | | [address] | | | | | | [phone] | | | | | | | | +--------+ + + + + | 06/27/ | Office | Physical Therapy | Edith Gil, | | | 2018 | Visit | | PT,DPT [address] | | | | | | [address] | | | | | | [place] | | | | | | [address] | | +--------+ + + + + | 06/27/ | Office | Surgery | Jen Coronel, | | | 2018 | Visit | | AGACNP [address] | | | | | | [place] | | | | | | [address] | | | | | | [phone] | | | | | | | | +--------+ + + + + | 06/27/ | Office | Nutrition | Eli Rodas, | | | 2018 | Visit | | RD [address] | | | | | | [address] | | | | | | [place] | | | | | | [address] | | +--------+ + + + + documented as of this encounter Visit Diagnoses Not on filedocumented in this encounter"
--- OUTSIDE RECORDS SUMMARY | ~2019-06-08 | XMS | Encounter Summary ---
Demographics + + + | Address | [address] | | | [place] [address] | + + + | Home Phone | | + + + | Preferred Language | Unknown | + + + | Marital Status | Single | + + + | Mormonism Affiliation | CAT | + + + [...] Team Providers + +------+ + | Care Re Dye Hand Name | Role | Phone | + +------+ + | Gracie Lewis PA-C | PCP | | + +------+ + Reason for Referral Physical Therapy (Routine) + +--------+ + + + + | Status | Reason | Specialty | Diagnoses / | Referred By | Referred To | | | | | Procedures | Contact | Contact | + +--------+ + + + + | New Request | | Physical | Diagnoses | Welshans, | Daniel Pt Chh1 | | | | Therapy | Morbid | Jen W, | [address] | | | | | obesity | AGACNP [address] | | | | | ([facility]) | [address] | Mailcode: | | | | | Procedures | [place], | [address] | | | | | PHYSICAL | [place] | for Health | | | | | THERAPY | [address] | and Healing, | | | | | REFERRAL | Phone: | Building [address], | | | | | | [phone] | [address] | | | | | | Fax: | [place], [place] | | | | | | [phone] | [address] | | | | | | | Phone: | | | | | | | [phone] | | | | | | | Fax: | | | | | | | [phone] | + +--------+ + + + + Encounter Details +--------+ + + + + | Date | Type | Department | Care Team | Description | +--------+ + + + + | 05/03/ | Sock Lining Examiner | Digestive Health | Jen Coronel, | Morbid obesity (HCC) | | 2019 | | [facility] at [facility] [address] | AGACNP [address] | (Primary Dx) | | | | [address] | [address] [facility] [place] | | | | | Mailcode: Center | [address] | | | | | for Health and | | | | | | [facility], [address] | | | | | | [place], [place] | | | | | | [address] | | | | | | [phone] | | | +--------+ + + + [...] | 2018 | Encounter | | [address] [facility] | | | | | | [address] | | | | | | [place], [place] | | | | | | [address] | | | | | | [phone] | | | | | | | [address] | | | | | | [place], [place] | | | | | | [address] | | | | | | [phone] | | | | | | | | +--------+ + + + + | 06/27/ | Office | Physical Therapy | Edith Gil, | | | 2018 | Visit | | PT,DPT [address] | | | | | | [address] | | | | | | [place], [place] | | | | | | [address] | | +--------+ + + + + | 06/27/ | Office | Surgery | Jen Coronel, | | | 2018 | Visit | | AGACNP [address] | | | | | | [place], [place] | | | | | | [address] | | | | | | [phone] | | | | | | | | +--------+ + + + + | 06/27/ | Office | Nutrition | Eli Rodas, | | | 2019 | Visit | | RD [address] [facility] | | | | | | [address] | | | | | | [facility] [place] | | | | | | [address] | | +--------+ + + + + documented as of this encounter Visit Diagnoses + + | Diagnosis | + + | Morbid obesity (HCC) - Primary Morbid obesity | + + documented in this encounter"
--- OUTSIDE RECORDS SUMMARY | ~2019-06-08 | XMS | Encounter Summary ---
Demographics + + + | Address | [address] | | | [place] [address] | + + + | Home Phone [...] Team Providers + +------+ + | Care Guest Services Ambassador Name | Role | Phone | + [...] | | | | | Procedures | [place], [place] | [facility] | | | | | [address] | [address] | [place], [place] | | | | | BENIGN | Phone: | [phone] | | | | | DISEASE WO | [phone] | Phone: | | | | | [address] | Fax: | [phone] | | | | | SCAN,ORBIT/S | [phone] | Fax: | | | | | CORY/POST | | [phone] | | | | | FOSSA/EAR,W/ | [...] | | | specified as | | [place], [place] | | | | | acute or | | [address] | | | | | chronic | | Phone: | | | | | Conductive | | [phone] | | | | | hearing | | Fax: | | | | | loss, | | [phone] | | | | | unilateral | [...] | | | [address] | [place], [place] | Dizziness | | | | Mailcode: PV01 | [address] | | | | | [facility] | [phone] | | | | | [place], [place] | | | | | | [address] | | | | | | [phone] | | | +--------+---------+ + + + [...] coordinating of care. Windy Rodriguez MD PhD Glass Cutter Hand Otology, Neurotology & Skull Base Surgery documented in this encounter Plan of Treatment +--------+ + + + + | Date | Type | Specialty | Care Team | Description | +--------+ + + + + | 06/12/ | Hospital | | Ehsan Cotto MD | | | 2019 | Encounter | | [address] [facility] | | | | | | [facility] | | | | | | [place], [place] | | | | | | [address] | | | | | | [phone] | | | | | | | [...] Rd | | | | | | [place] | | | | | | [address] | | | | | | [phone] | | | | | | | | +--------+ + + + + | 06/27/ | Office | Physical Therapy | Edith Gil, | | | 2018 | Visit | | PT,DPT [address] | | | | | | [address] | | | | | | [place] | | | | | | [address] | | +--------+ + + + + | 06/27/ | Office | Surgery | Jen Coronel, | | | 2018 | Visit | | AGACNP [address] | | | | | | [place], [place] | | | | | | [address] | | | | | | [phone] | | | | | | | | +--------+ + + + + | 06/27/ | Office | Nutrition | Eli Rodas, | | | 2018 | Visit | | RD [address] | | | | | | [address] | | | | | | [place], [place] | | | | | | [address] | | +--------+ + + + + [...]
--- OUTSIDE RECORDS SUMMARY | ~2019-06-08 | XMS | Encounter Summary ---
Demographics + + + | Address | [address] | | | [place] [address] | + + + | Home Phone | | + + + | Preferred Language | Unknown | + + + | Marital Status | Single | + + + | Church Affiliation | CAT | + + + [...] Team Providers + +------+ + | Care Road Production General Manager Name | Role | Phone | + +------+ + | Soniya Sinha [facility] | PCP | | + +------+ + Encounter Details +--------+ + + + + | Date | Type | Department | Care Team | Description | +--------+ + + + + | 10/03/ | Bumper And Painter | Otolaryngology | Windy Mclean | Dizziness (Primary | | 2013 | | Otology Services at | MD Loli [address] | Dx); Hearing loss | | | | TODD [address] | [address] | | | | | [address] | [place], [place] | | | | | Mailcode: PV01 | [address] | | | | | [facility] | [phone] | | | | | [place], [place] | | | | | | [address] | | | | | | [phone] | | | +--------+ + + + [...] Rd | | | | | | [place], [place] | | | | | | [address] | | | | | | [phone] | | | | | | | [...] Rd | | | | | | [facility] [place] | | | | | | [address] | | | | | | [phone] | | | | | | | | +--------+ + + + + | 06/27/ | Office | Physical Therapy | Edith Gil, | | | 2018 | Visit | | PT,DPT [address] | | | | | | [address] | | | | | | [place], [place] | | | | | | [address] | | +--------+ + + + + | 06/27/ | Office | Surgery | Jen Coronel, | | | 2018 | Visit | | AGACNP [address] | | | | | | [place], [place] | | | | | | [address] | | | | | | [phone] | | | | | | | | +--------+ + + + + | 06/27/ | Office | Nutrition | Eli Rodas, | | | 2018 | Visit | | RD [address] | | | | | | [address] | | | | | | [place], [place] | | | | | | [address] | | +--------+ + + + + documented as of this encounter Visit Diagnoses + + | Diagnosis | + + | Dizziness - Primary Dizziness and giddiness | + + | Hearing loss | + + documented in this encounter"
--- OUTSIDE RECORDS SUMMARY | ~2019-06-08 | XMS | Encounter Summary ---
Demographics + + + | Address | [address] | | | [place] [address] | + + + | Home Phone [...] Team Providers + +------+ + | Care Strategic Marketing Specialist Name | Role | Phone | [...] | MD Loli [address] | | | | | PPV [address] | [address] | | | | | [address] | [place], [place] | | | | | Mailcode: PV01 | [address] | | | | | [facility] | [phone] | | | | | [place], [place] | | | | | | [address] | | | | | | [phone] | | | +--------+ + + + [...] [address] | | | | | | [address] | | | | | | [place] | | | | | | [address] | | | | | | [phone] | | | | | | | [address] | | | | | | [place], [place] | | | | | | [address] | | | | | | [phone] | | | | | | | | +--------+ + + + + | 06/27/ | Office | Physical Therapy | Edith Gil, | | | 2018 | Visit | | PT,DPT [address] | | | | | | [address] | | | | | | [place], [place] | | | | | | [address] | | +--------+ + + + + | 06/27/ | Office | Surgery | Jen Coronel, | | | 2018 | Visit | | AGACNP [address] | | | | | | [place], [place] | | | | | | [address] | | | | | | [phone] | | | | | | | | +--------+ + + + + | 06/27/ | Office | Nutrition | Eli Rodas, | | | 2018 | Visit | | RD [address] | | | | | | [address] | | | | | | [place], [place] | | | | | | [address] | | +--------+ + + + + documented as of this encounter Visit Diagnoses Not on filedocumented in this encounter"
--- OUTSIDE RECORDS SUMMARY | ~2019-06-08 | XMS | Encounter Summary ---
Demographics + + + | Address | [address] | | | [place] [address] | + + + | Home Phone [...] Author + + + | Author | [facility] | + + + | Organization | [facility] | + + + | Address | Unknown | + + + | Phone | Unavailable | + + + Support + + +---------+ + | Name | Relationship | Address | Phone | + + +---------+ + | Alisia Nina | ECON | Unknown | | + + +---------+ + Care Team Providers + +------+ + | Care Motor Equipment Lieutenant Name | Role | Phone | [...] | on | Otology Services at | [facility] | | | | | PPV [address] [facility] | [place], [place] | | | | | [facility] | [address] | | | | | Mailcode: PV01 | | | | | | [facility] | | | | | | [place], [place] | | | | | | [address] | | | | | | [phone] | | | +--------+ + + + [...] Rd | | | | | | [place], [place] | | | | | | [address] | | | | | | [phone] | | | | | | | [...] Rd | | | | | | [place], [place] | | | | | | [address] | | | | | | [phone] | | | | | | | | +--------+ + + + + | 06/27/ | Office | Physical Therapy | Edith Gil, | | | 2018 | Visit | | PT,DPT [address] | | | | | | [address] | | | | | | [place], [place] | | | | | | [address] | | +--------+ + + + + | 06/27/ | Office | Surgery | Jen Coronel, | | | 2018 | Visit | | AGACNP [address] | | | | | | [place], [place] | | | | | | [address] | | | | | | [phone] | | | | | | | | +--------+ + + + + | 06/27/ | Office | Nutrition | Eli Rodas, | | | 2018 | Visit | | RD [address] | | | | | | [address] | | | | | | [place], [place] | | | | | | [address] | | +--------+ + + + + documented as of this encounter Visit Diagnoses Not on filedocumented in this encounter"
--- OUTSIDE RECORDS SUMMARY | ~2019-06-08 | XMS | Clinical Summary ---
Demographics + + + | Address | [address] | | | [place] [address] | + + + | Home Phone [...] Author | [facility] | | | and [place] | + + + | Organization | [facility] | | | and [place] | + + + | Address | Unknown | + + + | Phone | Unavailable | + + + Support + + + + + | Name | Relationship | Address | Phone | + + + + + | Uche Nina | ECON | [address] | | | | | [place], [place] | | | | | [address] | | + + + + + | Pratibha Hester | ECON | Unknown | + | + + + + + | Demian Powell | ECON | Unknown | + | + + + + + Care Team Providers + +------+ + | Care Shiatsu Therapist Name | Role | Phone | + +------+ + | Jannette Boyle PA-C | PCP | Unavailable | + +------+ + Allergies + + [...] | + + + +---------+------+------+-------+ | ondansetron | Take 1 tablet by | 20 | 0 | 10/2 | | Activ | | (ZOFRAN ODT) 4 mg | mouth every 8 hours | tablet | | 7/20 | | e | | disintegrating | as needed for | | | 15 | | | | tabletIndications: | Nausea. | | | | | | | Nausea | | | | | | | + + + +---------+------+------+-------+ | naproxen | Take 250 mg by mouth | | 0 | | | Activ | | (NAPROSYN) 250 mg | 2 times daily (with | | | | | e | | tablet | breakfast & | | | | | | | | dinner). | | | | | | + + + +---------+------+------+-------+ | | nightly as needed. | | 0 | 11/1 | | Activ | | Fluocin-Hydroquinone | | | | 4/20 | | e | | -Tretinoin | | | | 16 | | | | (TRI-RAJ) | | | | | | | | 0.01-4-0.05 % CREA | | | | | | | [...] | | + + + +---------+------+------+-------+ | pantoprazole | Take 1 tablet by | | 0 | | | Activ | | (PROTONIX) 40 mg | mouth Daily. | | | | | e | | tablet | | | | | | | + + + +---------+------+------+-------+ | oxyCODONE | Take 1 tablet by | | 0 | 10/0 | | Activ | | (ROXICODONE) 5 mg | mouth every 6 hours | | | 1/20 | | e | | tablet | as needed. | | | 09 | | | + + + +---------+------+------+-------+ [...] +---------+------+------+-------+ | mometasone | Inhale 1 puff into | | 0 | | | Activ | | (ASMANEX) 220 | the lungs Daily. | | | | | e [...] | | + + + +---------+------+------+-------+ | ascorbic acid | Take 500 mg by mouth | | 0 | | | Activ | | (VITAMIN C) 500 mg | Daily. | | | | | e | | tablet | | | | | | | + + + +---------+------+------+-------+ | aspirin 81 mg EC | Take 81 mg by mouth | | 0 | | | Activ | | tablet | Daily. | | | | | e | + + + +---------+------+------+-------+ | Cholecalciferol | Take 1 capsule by | | 0 | | | Activ | | 67743 units CAPS | mouth Daily. | | | | | e | + + + +---------+------+------+-------+ | hydrocortisone [...] | + + + +---------+------+------+-------+ | naproxen | Take 500 mg by mouth | | 0 | | | Activ | | (NAPROSYN) 500 mg | 2 times daily (with | | | | | e | | tablet | breakfast & | | | | | | | | dinner). | | | | | | + [...] + + + +---------+------+------+-------+ | METFORMIN HCL PO | Take by mouth. | | 0 | | | Activ | | | | | | | | e | + + + +---------+------+------+-------+ | ondansetron | Take 4 mg by mouth 3 | | 0 | | | Activ | | (ZOFRAN) 4 mg tablet | (three) times daily | | | | | e | | | as needed for | | | | | | | | Nausea. | | | | | | + + + +---------+------+------+-------+ | ferrous sulfate | Take 65 mg of iron | | 0 | | | Activ | | 324 (65 Fe) MG EC | by mouth 3 (three) | | | | | e | | tablet | times daily with | | | | | | | | meals. | | | | | | + [...] | + + + +---------+------+------+-------+ | ondansetron | Take 4 mg by mouth | | 0 | | | Activ | | (ZOFRAN ODT) 4 mg | every twelve hours | | | | | e | | disintegrating | as needed. | | | | | | | tablet | | | | | | | + + + +---------+------+------+-------+ | oxyCODONE | Take 1 Tab by mouth | | 0 | 10/0 | | Activ | | (ROXICODONE) 5 mg | every six hours as | | | 1/20 | | e | | tablet | needed. | | | 09 | | | + + + +---------+------+------+-------+ [...] LEFT, CHRONIC | | + + + Immunizations + + + + | Name | Dates Previously Given | Next Due | + + + [...] | + + + + | INFLUENZA, [id number], | 08/05/2009 | | | UNSPECIFIED | [...] + + + + + | Heart failure | Father | An | | | [...] + + + | Mental illness | | pierre | | | | | cody | | + + + + + | Seizures | | | | + + + + + | Heart failure | | | | + + + + + | Diabetes | Sister | | | + + + + + | Renal failure | Sister | | | + + + + + | Arthritis | Sister | | | + + + + [...] + + + + | Sister | | | | + + + + + | Sister | | | | + + + + + | Sister | | | | + + + + + | Sister | | | | + + + + + | Sister | | | | + + + [...] | | + + +---------+ + | Yes [...] | Blood Pressure | 127/70 | 07/22/2015 0819 PST | + + + + | Pulse | 75 | 07/22/2015 0819 PST | + + + + | Temperature | 36 C (96.8 F) | 12/16/2014741 PDT | + + + + | Respiratory Rate | 18 | 06/04/2015 1117 PDT | + + + + | Oxygen Saturation | 96% | 12/16/2014741 PDT | + + + + | Inhaled Oxygen | - | - | | Concentration | | | + + + + | Weight | 117.5 kg (259 lb) | 06/21/2016 1507 PST | + + + + | Height | 167.6 cm (5' 6") | 06/21/20167 PST | + + + + | Body Mass Index | 41.8 | 06/21/20167 PST | + + + + Plan of Treatment +--------+---------+ + + + | Date | Type | Specialty | Care Team | Description | +--------+---------+ + + + | 08/28/ | Office | Cardiology | Rudy Osullivan, | | | 2019 | Visit | | MD [address] | | | | | | [place], | | | | | | [place] [address] | | | | | | [phone] | | | | | | | | +--------+---------+ + + + + + + + [...] + + + | Vaccine: | | | | | Dtap/Tdap/Td (1 - | 0 | | | | Tdap) | | | | + + + + + | Vaccine: | | | | | Pneumococcal 19-64 | 0 | | | | (PPSV23 only) Medium | | | | | Risk (1 of 1 - | | | | | PPSV23) | | | | + + [...] + + + | Vaccine: Influenza | | 05/07/2014, 05/18/2013, | | | (#1) | 9 | 04/08/2011, Additional history | | | | | [...] | OSTEOTECH - | | 10/03/ | [id number] | | [id number]: Qty: 1 | | | OSTT | | 2020 | | | on 12/12/2014 by [place], | | | | | | /[id number] | | Sascha Armendariz DO | | | | | | 2-039 | | | | | | | | /38-30 | | | | | | | | 12 | + +------+--------+ +--------+--------+--------+ | Graft Infuse Bone Kit Xxs - | | | SOFAMOR | | / | [id number] | | [id number]: Qty: 1 on | | | DANEK - DIV | | 2016 | 0 / | | 12/12/2014 by Sascha Mir | | | [employer] | | | /[id number] | | ADO | | | - SFDK | | | [id number] | + +------+--------+ +--------+--------+--------+ | SpacerImplanted: Qty: 1 on | | Casing Fluid Tender | [employer] - | | 10/04/ | [id number] | | 12/12/2014 by Sascha Mir | | ior: | MEDT | | 2022 | 9 / | | DO Kala | | Spine | | | | /[id number] | | | | Lumbar | | | | 520 | + +------+--------+ +--------+--------+--------+ | Screw Amanda Solera 6.5x50mm - | | Casing Fluid Tender | SOFAMOR | | | [id number] | | [id number]: Qty: 1 on | | ior: | DANEK - DIV | | | [id number] | | 12/12/2014 by Sascha Mir | | Spine | [employer] | | | / / | | Kala DO | | Lumbar | - SFDK | | | | + +------+--------+ +--------+--------+--------+ | Screw Amanda Solera 6.5x45mm - | | Casing Fluid Tender | SOFAMOR | | | [id number] | | [id number]: Qty: 1 on | | ior: | ARUNEK - DIV | | | [id number] | | 12/12/2014 by Sascha Mir | | Spine | [employer] | | | / / | | DO Kala | | Lumbar | - SFDK | | | | + +------+--------+ +--------+--------+--------+ | Screw Mas G5 Slra 7.5x40 Cn - | | Casing Fluid Tender | SOFAMOR | | | [id number] | | [id number]: Qty: 1 | | ior: | DANEK - DIV | | | [id number] | | on 12/12/2014 by Clarke, | | Spine | [employer] | | | / / | | Sascha Armendariz DO | | Lumbar | - SFDK | | | | + +------+--------+ +--------+--------+--------+ | Screw Amanda 8.5x40mm - | | Casing Fluid Tender | [employer] - | | | [id number] | | [id number]: Qty: 1 on | | ior: | MEDT | | | [id number] | | 12/12/2014 by Sascha Mir | | Spine | | | | / / | | DO Kala | | Lumbar | | | | | + +------+--------+ +--------+--------+--------+ | Set Scrw Ns G5 Brk Off Ti | | Casing Fluid Tender | SOFAMOR | | | [id number] | | 4.75 - [id number]: | | ior: | DANEK - DIV | | | 0 / / | | Qty: 4 on 12/12/2014 by | | Spine | [employer] | | | | | Sascha Mir DO | | Lumbar | - SFDK | | | | + +------+--------+ +--------+--------+--------+ | Imp Spn Francis Ti Sext Ti 5.5x45 | | Casing Fluid Tender | SOFAMOR | | | [id number] | | - [id number]: Qty: 2 | | ior: | DANEK - DIV | | | [id number] / | | on 12/12/2014 by Clarke, | | Spine | [employer] | | | / | Milady Armendariz DO | | Lumbar | - SFDK | | | | + +------+--------+ +--------+--------+--------+ [...] | Cannulated Screw Cd Horizon | | Casing Fluid Tender | [employer] - | | | [id number] | | SoleraExplanted: Qty: 1 on | | ior: | MEDT | | | [id number] | | 12/12/2014 | | Spine | | | | / / | | | | Lumbar | | | | | + +------+--------+ +--------+--------+--------+ Results Not on filefrom Last 3 Months Insurance + +--------+ +--------+ [...] | [employer] | MODA | [id number] | | [phone] | | Medica | | MEDICAID HMO | HEALTH | | 015-Pr | 1 | | id | | | MDCD | | esent | | | | | | [place] | | | | | | + +--------+ +--------+ +---------+--------+ | [facility] | IHS | [id number] | | | | Indemn | | SERVICE | YELLOW | | 2012-P | | | ity | | | HAWK | | resent | | | | + +--------+ +--------+ +---------+--------+ | [employer] | MODA | [id number] | | [phone] | | Medica | | MEDICAID HMO | HEALTH | | 019-Pr | 1 | | id | | | MDCD | | esent | | | | | | [place] | | | | | | + +--------+ +--------+ +---------+--------+ | [facility] | IHS | [id number] | 04/08/20 | | | Indemn | | SERVICE | YELLOW | | 19-Pre | | | ity | | | [...] | Self | [birth year] | [address] | | | al/Fam | | 1970 | [phone] | [place] [address] | | | neil | | | 7 (Home) | | + +--------+ +--------+ + + | Demian Nina | Person | Self | [birth year] | [address] | | | al/Fam | | 1970 | [phone] | [place] [address] | | | neil | | | 7 (Home) | | + +--------+ +--------+ + + Advance Directives Patient has advance care planning documents, and code status on file. For more information, please contact:[facility] [place] [phone] + + + + + | Code Status | Date | Date | Comments | | | Activated | Inactivated | | + + + + + | Full Code | 12/12/2014 | 12/16/2014 | | | | 14:33 | 17:17 | | + + + + +
--- OUTSIDE RECORDS SUMMARY | ~2019-06-08 | XMS | Encounter Summary ---
Demographics + + + | Address | [address] | | | [place] [address] | + + + | Home Phone | | + + + | Preferred Language | Unknown | + + + | Marital Status | Single | + + + | Roman Catholic Affiliation | CAT | + + [...] Team Providers + +------+ + | Care Realty Loan Specialist Name | Role | Phone | + +------+ + | Gracie Lewis PA-C | PCP | | + +------+ + Encounter Details +--------+ + + + + | Date | Type | Department | Care Team | Description | +--------+ + + + + | 04/26/ | Documentati | Digestive Health | Clinic, Surgery | | | 2019 | on | [place] [facility] [address] | | | | | | [address] | | | | | | Mailcode: Center | | | | | | for Health and | | | | | | Healing, Building 2 | | | | | | [facility] [place] | | | | | | [address] | | | | | | [phone] | | | +--------+ + + + [...] Rd | | | | | | [place], [place] | | | | | | [address] | | | | | | [phone] | | | | | | | [...] Rd | | | | | | [place], [place] | | | | | | [address] | | | | | | [phone] | | | | | | | | +--------+ + + + + | 06/27/ | Office | Physical Therapy | Edith Gil, | | | 2018 | Visit | | PT,DPT [address] | | | | | | [address] | | | | | | [place], [place] | | | | | | [address] | | +--------+ + + + + | 06/27/ | Office | Surgery | Jen Coronel, | | | 2018 | Visit | | AGACNP [address] | | | | | | [place], [place] | | | | | | [address] | | | | | | [phone] | | | | | | | | +--------+ + + + + | 06/27/ | Office | Nutrition | Eli Rodas, | | | 2018 | Visit | | RD [address] | | | | | | [address] | | | | | | [place] | | | | | | [address] | | +--------+ + + + + documented as of this encounter Visit Diagnoses Not on filedocumented in this encounter"
--- OUTSIDE RECORDS SUMMARY | ~2019-06-08 | XMS | Encounter Summary ---
Demographics + + + | Address | [address] | | | [place] [address] | + + + | Home Phone | | + + + | Preferred Language | Unknown | + + + | Marital Status | Single | + + + | Sabianist Affiliation | CAT | + + + [...] Team Providers + +------+ + | Care Meter Attendant Name | Role | Phone | [...] | on | Otology Services at | [facility] | | | | | [address] [facility] | [place], [place] | | | | | [facility] | [address] | | | | | Mailcode: PV01 | | | | | | [facility] | | | | | | [place], [place] | | | | | | [address] | | | | | | [phone] | | | +--------+ + + + [...] Rd | | | | | | [place], [place] | | | | | | [address] | | | | | | [phone] | | | | | | | [...] Rd | | | | | | [place], [place] | | | | | | [address] | | | | | | [phone] | | | | | | | | +--------+ + + + + | 06/27/ | Office | Physical Therapy | Edith Gil, | | | 2018 | Visit | | PT,DPT [address] | | | | | | [address] | | | | | | [place], [place] | | | | | | [address] | | +--------+ + + + + | 06/27/ | Office | Surgery | Jen Coronel, | | | 2018 | Visit | | AGACNP [address] | | | | | | [place], [place] | | | | | | [address] | | | | | | [phone] | | | | | | | | +--------+ + + + + | 06/27/ | Office | Nutrition | Eli Rodas, | | | 2018 | Visit | | RD [address] | | | | | | [address] | | | | | | [place], [place] | | | | | | [address] | | +--------+ + + + + documented as of this encounter Visit Diagnoses Not on filedocumented in this encounter"
--- OUTSIDE RECORDS SUMMARY | ~2019-06-08 | XMS | Encounter Summary ---
Demographics + + + | Address | [address] | | | [place] [address] | + + + | Home Phone [...] Author + + + | Author | [facility] | + + + | Organization | [facility] | + + + | Address | Unknown | + + + | Phone | Unavailable | + + + Support + + +---------+ + | Name | Relationship | Address | Phone | + + +---------+ + | Alisia Nina | ECON | Unknown | | + + +---------+ + Care Team Providers + +------+ + | Care Receptionist Telephone Operator Name | Role | Phone | [...] | | | [address] | [place], [place] | | | | | Mailcode: PV01 | [address] | | | | | [facility] | [phone] | | | | | [place], [place] | | | | | | [address] | | | | | | [phone] | | | +--------+ + + + [...] Rd | | | | | | [place], [place] | | | | | | [address] | | | | | | [phone] | | | | | | | [...] Rd | | | | | | [place], [place] | | | | | | [address] | | | | | | [phone] | | | | | | | | +--------+ + + + + | 06/27/ | Office | Physical Therapy | Edith Gli, | | | 2018 | Visit | | PT,DPT [address] | | | | | | [address] | | | | | | [place], [place] | | | | | | [address] | | +--------+ + + + + | 06/27/ | Office | Surgery | Jen Coronel, | | | 2018 | Visit | | AGACNP [address] | | | | | | [place], [place] | | | | | | [address] | | | | | | [phone] | | | | | | | | +--------+ + + + + | 06/27/ | Office | Nutrition | Eli Rodas, | | | 2018 | Visit | | RD [address] | | | | | | [address] | | | | | | [place], [place] | | | | | | [address] | | +--------+ + + + + documented as of this encounter Visit Diagnoses Not on filedocumented in this encounter"
--- OUTSIDE RECORDS SUMMARY | ~2019-06-08 | XMS | Encounter Summary ---
Demographics + + + | Address | [address] | | | [place] [address] | + + + | Home Phone [...] Team Providers + +------+ + | Care Stunner Name | Role | Phone | + +------+ + | Gracie Lewis PA-C | PCP | | + +------+ + Encounter Details +--------+ + + + + | Date | Type | Department | Care Team | Description | +--------+ + + + + | 04/24/ | Abstract | Digestive Health | Clinic, Surgery | | | 2019 | | [place] [facility] [address] | | | | | | [address] | | | | | | Mailcode: [place] | | | | | | for Health and | | | | | | Healing, Building [address] | | | | | | [place], [place] | | | | | | [address] | | | | | | [phone] | | | +--------+ + + + [...] Rd | | | | | | [place], [place] | | | | | | [address] | | | | | | [phone] | | | | | | | [...] Rd | | | | | | [place], [place] | | | | | | [address] | | | | | | [phone] | | | | | | | | +--------+ + + + + | 06/27/ | Office | Physical Therapy | Edith Gil, | | | 2018 | Visit | | PT,DPT [address] | | | | | | [address] | | | | | | [place], [place] | | | | | | [address] | | +--------+ + + + + | 06/27/ | Office | Surgery | Jen Coronel, | | | 2018 | Visit | | AGACNP [address] | | | | | | [place], [place] | | | | | | [address] | | | | | | [phone] | | | | | | | | +--------+ + + + + | 06/27/ | Office | Nutrition | Eli Rodas, | | | 2018 | Visit | | RD [address] | | | | | | [address] | | | | | | [place], [place] | | | | | | [address] | | +--------+ + + + + documented as of this encounter Visit Diagnoses Not on filedocumented in this encounter"
--- OUTSIDE RECORDS SUMMARY | ~2019-06-08 | XMS | Encounter Summary ---
Demographics + + + | Address | [address] | | | [place] [address] | + + + | Home Phone [...] Team Providers + +------+ + | Care Visual Coordinator Name | Role | Phone | [...] 2013 | Visit | Audiology Services | [facility] [address] | | | | | at [address] | [address] | | | | | [address] | [place] [address] | | | | | Mailcode: PV01 | [phone] | | | | | Michelle Aguilera | | | | | | [place], [place] | | | | | | [address] | | | | | | [phone] | | | +--------+ + + + [...] to moderate mixed hearing loss. A speech control operator threshold was obtain ed at 40 dB HL and is in good agreement with responses to pure-tone stimuli. Word recogniti on ability was 80% when words were presented at a comfortable level of 65 dB HL. Left Ear: Normal hearing sensitivity from 250-4000 Hz, sloping to a mild hearing loss at 6000 Hz, rising to normal hearing at 8000 Hz. A speech control operator threshold was obtained at 20 dB HL and is in good agreement with responses to pure-tone stimuli. Word recognition judy lity was 84% when words were presented at a comfortable level of 50 dB HL. [facility]. Please see [...] Rd | | | | | | [facility] [place] | | | | | | [address] | | | | | | [phone] | | | | | | | [...] Rd | | | | | | [place] | | | | | | [address] | | | | | | [phone] | | | | | | | | +--------+ + + + + | 06/27/ | Office | Physical Therapy | Edith Gil, | | | 2018 | Visit | | PT,DPT [address] | | | | | | [address] | | | | | | [place], [place] | | | | | | [address] | | +--------+ + + + + | 06/27/ | Office | Surgery | Jen Coronel, | | | 2018 | Visit | | AGACNP [address] | | | | | | [place] | | | | | | [address] | | | | | | [phone] | | | | | | | | +--------+ + + + + | 06/27/ | Office | Nutrition | Eli Rodas, | | | 2018 | Visit | | RD [address] | | | | | | [address] | | | | | | [place], [place] | | | | | | [address] | | +--------+ + + + + documented as of this encounter Procedures + +--------+ + + + | Procedure Name | Priori | Date/Time | Associated Diagnosis | Comments | | | ty | | | | + +--------+ + + + | [place] TYMPANOMETRY | Routin | 04/16/2014 | Mixed hearing | | | | e | 3:45 PM | loss, unilateral | | | | | PDT | | | + +--------+ + + + | [place] COMPREHENSIVE | Routin | 04/16/2014 | Mixed [...]
--- OUTSIDE RECORDS SUMMARY | ~2019-06-08 | XMS | Encounter Summary ---
Demographics + + + | Address | [address] | | | [place] [address] | + + + | Home Phone [...] Team Providers + +------+ + | Care Boom Cat Operator Name | Role | Phone | + +------+ + | Gracie Lewis PA-C | PCP | | + +------+ + Encounter Details +--------+ + + + + | Date | Type | Department | Care Team | Description | +--------+ + + + + | 10/19/ | Outside | [facility] | Angelo Abrams | | | 2019 | Referral | [facility] [address] | MD [address] | | | | Order | [address] Mailcode: | georgette Cano | | | | | [address] [place] [address] for | [place] [address] | | | | | Health and Healing, | [phone] | | | | | [facility] [address] | | | | | | [place], [place] | | | | | | [address] | | | | | | [phone] | | | +--------+ + + + [...] + | 06/12/ | Hospital | | Georgette Cotto MD | | | 2018 | Encounter | | [address] | | | | | | [address] | | | | | | [place], [place] | | | | | | [address] | | | | | | [phone] | | | | | | | | +--------+ + + + + | 06/12/ | Appointment | Procedural Care Unit | | | | 2018 | | | | | +--------+ + + + + | 06/12/ | Appointment | Gastroenterology | Georgette Cotto MD | | | 2018 | | | [address] | | | | | | [address] | | | | | | [place], [place] | | | | | | [address] | | | | | | [phone] | | | | | | | | +--------+ + + + + | 06/27/ | Office | Physical Therapy | Louise Edith, | | | 2018 | Visit | | PT,DPT [address] | | | | | | [address] | | | | | | [place] | | | | | | [address] | | +--------+ + + + + | 06/27/ | Office | Surgery | Jen Coronel, | | | 2018 | Visit | | AGACNP [address] | | | | | | [place], [place] | | | | | | [address] | | | | | | [phone] | | | | | | | | +--------+ + + + + | 06/27/ | Office | Nutrition | Eli Rodas, | | | 2018 | Visit | | RD [address] | | | | | | [address] | | | | | | [place] | | | | | | [address] | | +--------+ + + + + [...]
--- OUTSIDE RECORDS SUMMARY | ~2019-06-08 | XMS | Encounter Summary ---
Demographics + + + | Address | [address] | | | [place] [address] | + + + | Home Phone | | + + + | Preferred Language | Unknown | + + + | Marital Status | Single | + + + | Sikhism Affiliation | CAT | + + + [...] Team Providers + +------+ + | Care Government Affairs Researcher Name | Role | Phone | + [...] | 2018 | Encounter | | [address] | | | | | | [address] | | | | | | [place], [place] | | | | | | [address] | | | | | | [phone] | | | | | | | [...] Rd | | | | | | [place], [place] | | | | | | [address] | | | | | | [phone] | | | | | | | | +--------+ + + + + | 06/27/ | Office | Physical Therapy | Edith Gil, | | | 2018 | Visit | | PT,DPT [address] | | | | | | [address] | | | | | | [place], [place] | | | | | | [address] | | +--------+ + + + + | 06/27/ | Office | Surgery | Jen Coronel, | | | 2018 | Visit | | AGACNP [address] | | | | | | [place], [place] | | | | | | [address] | | | | | | [phone] | | | | | | | | +--------+ + + + + | 06/27/ | Office | Nutrition | Eli Rodas, | | | 2019 | Visit | | RD [address] [facility] | | | | | | [address] | | | | | | [place] | | | | | | [address] | | +--------+ + + + + documented as of this encounter Visit Diagnoses Not on filedocumented in this encounter"
--- OUTSIDE RECORDS SUMMARY | ~2019-06-08 | XMS | Encounter Summary ---
Demographics + + + | Address | [address] | | | [place] [address] | + + + | Home Phone [...] Team Providers + +------+ + | Care Script Coordinator Name | Role | Phone | + +------+ + | Gracie Lewis PA-C | PCP | | + +------+ + Encounter Details +--------+ + + + + | Date | Type | Department | Care Team | Description | +--------+ + + + + | 05/03/ | Documentati | Digestive Health | Clinic, Surgery | | | 2019 | on | [place] at [facility] [address] | | | | | | [address] | | | | | | Mailcode: Center | | | | | | for Health and | | | | | | Healing, [address] | | | | | | [facility] [place] | | | | | | [address] | | | | | | [phone] | | | +--------+ + + + [...] Rd | | | | | | [place], [place] | | | | | | [address] | | | | | | [phone] | | | | | | | [...] | | | | | | [place], [place] | | | | | | [address] | | | | | | [phone] | | | | | | | | +--------+ + + + + | 06/27/ | Office | Physical Therapy | Edith Gil, | | | 2018 | Visit | | PT,DPT [address] | | | | | | [address] | | | | | | [place], [place] | | | | | | [address] | | +--------+ + + + + | 06/27/ | Office | Surgery | Jen Coronel, | | | 2018 | Visit | | AGACNP [address] | | | | | | [place], [place] | | | | | | [address] | | | | | | [phone] | | | | | | | | +--------+ + + + + | 06/27/ | Office | Nutrition | Eli Rodas, | | | 2018 | Visit | | RD [address] | | | | | | [address] | | | | | | [place] | | | | | | [address] | | +--------+ + + + + documented as of this encounter Visit Diagnoses Not on filedocumented in this encounter"
--- OUTSIDE RECORDS SUMMARY | ~2019-06-08 | XMS | Encounter Summary ---
Demographics + + + | Address | [address] | | | [place] [address] | + + + | Home Phone [...] Team Providers + +------+ + | Care Furnace Roaster Name | Role | Phone | + [...] Medical Records | | 2019 | | [place] [facility] [address] | | Review | | | | [address] | | | | | | Mailcode: [place] | | | | | | [facility] and | | | | | | [facility] 2 | | | | | | [place], [place] | | | | | | [address] | | | | | | [phone] | | | +--------+ + + + [...] | | | | | | [address] | | | | | | [place], [place] | | | | | | [address] | | | | | | [phone] | | | | | | | [...] Rd | | | | | | [place], [place] | | | | | | [address] | | | | | | [phone] | | | | | | | | +--------+ + + + + | 06/27/ | Office | Physical Therapy | Edith Gil, | | | 2018 | Visit | | PT,DPT [address] | | | | | | [address] | | | | | | [place], [place] | | | | | | [address] | | +--------+ + + + + | 06/27/ | Office | Surgery | Jen Coronel, | | | 2018 | Visit | | AGACNP [address] | | | | | | [place], [place] | | | | | | [address] | | | | | | [phone] | | | | | | | | +--------+ + + + + | 06/27/ | Office | Nutrition | Eli Rodas, | | | 2019 | Visit | | RD [address] [facility] | | | | | | [address] | | | | | | [facility] | | | | | | [address] | | +--------+ + + + + documented as of this encounter Visit Diagnoses Not on filedocumented in this encounter"
--- OUTSIDE RECORDS SUMMARY | ~2019-06-08 | XMS | Encounter Summary ---
Demographics + + + | Address | [address] | | | [place] [address] | + + + | Home Phone | | + + + | Preferred Language | Unknown | + + + | Marital Status | Single | + + + | Yazdanism Affiliation | CAT | + + + [...] Team Providers + +------+ + | Care Live Games Dealer Name | Role | Phone | + [...] | | | [address] | [place], [place] | | | | | Mailcode: PV01 | [address] | | | | | [facility] | [phone] | | | | | [place], [place] | | | | | | [address] | | | | | | [phone] | | | +--------+ + + + [...] Rd | | | | | | [place] | | | | | | [address] | | | | | | [phone] | | | | | | | [...] Rd | | | | | | [place], [place] | | | | | | [address] | | | | | | [phone] | | | | | | | | +--------+ + + + + | 06/27/ | Office | Physical Therapy | Edith Gil, | | | 2018 | Visit | | PT,DPT [address] | | | | | | [address] | | | | | | [place], [place] | | | | | | [address] | | +--------+ + + + + | 06/27/ | Office | Surgery | Jen Coronel, | | | 2018 | Visit | | AGACNP [address] | | | | | | [place], [place] | | | | | | [address] | | | | | | [phone] | | | | | | | | +--------+ + + + + | 06/27/ | Office | Nutrition | Eli Rodas, | | | 2018 | Visit | | RD [address] | | | | | | [address] | | | | | | [place], [place] | | | | | | [address] | | +--------+ + + + + documented as of this encounter Visit Diagnoses Not on filedocumented in this encounter"
--- OUTSIDE RECORDS SUMMARY | ~2019-06-08 | XMS | Encounter Summary ---
Demographics + + + | Address | [address] | | | [place] [address] | + + + | Home Phone [...] Team Providers + +------+ + | Care Care Team Assistant Name | Role | Phone | + +------+ + | Soniya Sinha [facility] | PCP | | + +------+ + Encounter Details +--------+ + + + + | Date | Type | Department | Care Team | Description | +--------+ + + + + | 10/03/ | Construction Manager | Otolaryngology | Windy Mclean | Dizziness (Primary | | 2013 | | Otology Services at | MD Loli [address] | Dx); Hearing loss | | | | TODD [address] | [address] | | | | | [address] | [place], [place] | | | | | Mailcode: [address] | [address] | | | | | [facility] | [phone] | | | | | [place], [place] | | | | | | [address] | | | | | | [phone] | | | +--------+ + + + [...] Rd | | | | | | [place], [place] | | | | | | [address] | | | | | | [phone] | | | | | | | [...] Rd | | | | | | [facility] [place] | | | | | | [address] | | | | | | [phone] | | | | | | | | +--------+ + + + + | 06/27/ | Office | Physical Therapy | Edith Gil, | | | 2018 | Visit | | PT,DPT [address] | | | | | | [address] | | | | | | [place], [place] | | | | | | [address] | | +--------+ + + + + | 06/27/ | Office | Surgery | Jen Coronel, | | | 2018 | Visit | | AGACNP [address] | | | | | | [place], [place] | | | | | | [address] | | | | | | [phone] | | | | | | | | +--------+ + + + + | 06/27/ | Office | Nutrition | Eli Rodas, | | | 2018 | Visit | | RD [address] | | | | | | [address] | | | | | | [place], [place] | | | | | | [address] | | +--------+ + + + + documented as of this encounter Visit Diagnoses + + | Diagnosis | + + | Dizziness - Primary Dizziness and giddiness | + + | Hearing loss | + + documented in this encounter"
--- OUTSIDE RECORDS SUMMARY | ~2019-06-08 | XMS | Clinical Summary ---
Demographics + + + | Address | [address] | | | [place] [address] | + + + | Home Phone | | + + + | Preferred Language | Unknown | + + + | Marital Status | Single | + + + | Amish Affiliation | CAT | + + + [...] Providers + +------+ + | Care Automation And Controls Supervisor Name | Role | Phone | + +------+ + | Gracie Lweis PA-C | PCP | | + +------+ + Source Comments WHITNEY is fully live on both [facility] and [facility] Allergies + + + + + + [...] e | + + + +---------+------+------+-------+ | oxycodone, | Take 1 Tab by [...] | + + + +---------+------+------+-------+ | | 1 drop four times | | 0 | | | Activ | | naphazoline-pheniram | daily as needed. | | | | | e | | ine 0.025-0.3 % | | | | | | | | ophthalmic drops | | | | | | | + + + +---------+------+------+-------+ | omeprazole 20 mg | Take 20 mg by mouth | | 0 | | | Activ | | oral capsule,delayed | once daily. | | | | | e | | release(DR/EC) | | | | | | | + + + +---------+------+------+-------+ | ondansetron ODT 4 | Take 4 mg by mouth | | 0 | | | Activ | | mg oral | every twelve hours | | | | | e | | tablet,disintegratin | as needed. | | | | | | | g | | | | | | | + + + +---------+------+------+-------+ | pantoprazole 40 mg | Take 40 [...] Nausea | 04/01/2014 | + + + Encounters +--------+ + + + + | Date | Type | Specialty | Care Team | Description | +--------+ + + + + | 05/14/ | Abstract | Surgery | Clinic, Surgery | Medical Records | | 2019 | | | | Review | +--------+ + + + + | 05/03/ | Education Site Manager | Surgery | Jen Coronel, | Morbid obesity (HCC) | | 2018 | | | AGACNP | (Primary Dx) | +--------+ + + + + | 05/03/ | Documentati | Surgery | Clinic, Surgery | | | 2019 | on | | | | +--------+ + + + + | 04/26/ | Documentati | Surgery | Clinic, Surgery | | | 2018 | on | | | | +--------+ + + + + | 04/25/ | Documentati | Surgery | Clinic, Surgery | | | 2018 | on | | | | +--------+ + + + + | 04/24/ | Abstract | Surgery | Clinic, Surgery | | | 2019 | | | | | +--------+ + + + + from [...] Rd | | | | | | [place], [place] | | | | | | [address] | | | | | | [phone] | | | | | | | [...] Rd | | | | | | [place], [place] | | | | | | [address] | | | | | | [phone] | | | | | | | | +--------+ + + + + | 06/27/ | Office | Physical Therapy | Edith Gil, | | | 2018 | Visit | | PT,DPT [address] | | | | | | [address] | | | | | | [place] | | | | | | [address] | | +--------+ + + + + | 06/27/ | Office | Surgery | Jen Coronel, | | | 2018 | Visit | | AGACNP [address] | | | | | | [place] | | | | | | [address] | | | | | | [phone] | | | | | | | | +--------+ + + + + | 06/27/ | Office | Nutrition | Eli Rodas, | | | 2018 | Visit | | [address] | | | | | | [address] | | | | | | [place] | | | | | | [address] | | +--------+ + + + + + + + + + | Health Maintenance | Due Date | Last Done | Comments | + + + + + | Pneumococcal | | 07/07/2010 | | | vaccination (1 | 7 | | | | - PPSV23) | | | | + + + + + | Influenza (Flu) | | 05/07/2014, 05/18/2013, | | | vaccination (#1) | 9 | 04/08/2011, Additional history [...] | | | + +--------+ +--------+-------+---------+--------+ | TECHNOLOGY SERVICES MANAGER MEDICAID | TECHNOLOGY SERVICES MANAGER | xxxxxxxx | 08/08/19 | | | Medica | | | [facility] | | 18-Pre | | | id | | | [place] | | sent | | | | + +--------+ +--------+-------+---------+--------+ | [facility] | [facility] | xxxxxxx | Effect | | | [...] | Self | [birth year] | | [address] | | | al/Fam | | 1969 | [address] | [place] [address] | | | neil | | | 3 (Home) | | + +--------+ +--------+ + + | Demian Nina | Agency | Self | [birth year] | | [address] | | | | | 1970 | | [place] [address] | | | | | | 3 (Home) | | + +--------+ +--------+ + +
--- OUTSIDE RECORDS SUMMARY | ~2019-06-08 | XMS | Encounter Summary ---
Demographics + + + | Address | [address] | | | [place] [address] | + + + | Home Phone [...] Team Providers + +------+ + | Care Document Control Manager Name | Role | Phone | + +------+ + | Gracie Lewis PA-C | PCP | | + +------+ + Encounter Details +--------+ + + + + | Date | Type | Department | Care Team | Description | +--------+ + + + + | 04/25/ | Documentati | Digestive Health | Clinic, Surgery | | | 2019 | on | [place] at [facility] [address] | | | | | | [address] | | | | | | Mailcode: Center | | | | | | for Health and | | | | | | Healing, Building [address] | | | | | | [facility] [place] | | | | | | [address] | | | | | | [phone] | | | +--------+ + + + [...] Rd | | | | | | [place], [place] | | | | | | [address] | | | | | | [phone] | | | | | | | [...] Rd | | | | | | [place], [place] | | | | | | [address] | | | | | | [phone] | | | | | | | | +--------+ + + + + | 06/27/ | Office | Physical Therapy | Louise Edith, | | | 2018 | Visit | | PT,DPT [address] | | | | | | [address] | | | | | | [place], [place] | | | | | | [address] | | +--------+ + + + + | 06/27/ | Office | Surgery | Jen Coronel, | | | 2018 | Visit | | AGACNP [address] | | | | | | [place], [place] | | | | | | [address] | | | | | | [phone] | | | | | | | | +--------+ + + + + | 06/27/ | Office | Nutrition | Eli Rodas, | | | 2018 | Visit | | RD [address] | | | | | | [address] | | | | | | [place], [place] | | | | | | [address] | | +--------+ + + + + documented as of this encounter Visit Diagnoses Not on filedocumented in this encounter"
--- OUTSIDE RECORDS SUMMARY | ~2019-06-08 | XMS | Encounter Summary ---
Demographics + + + | Address | [address] | | | [place] [address] | + + + | Home Phone [...] + + + | Author | [facility] | + + + | Organization | [facility] | + + + | Address | Unknown | + + + | Phone | Unavailable | + + + Support + + +---------+ + | Name | Relationship | Address | Phone | + + +---------+ + | Alisia Nina | ECON | Unknown | | + + +---------+ + Care Team Providers + +------+ + | Care Felled Seam Operator Chainstitch Name | Role | Phone | + [...] at | | | | | | [facility] | | | | | | [address] | | | | | | Mail Code: OC8PM | | | | | | [facility] | | | | | | and Healing, | | | | | | [address] | | | | | | [place], [place] | | | | | | [address] | | | | | | [phone] | | | +--------+ + + + [...] [address] | | | | | | [address] | | | | | | [phone] | | | | | | | [...] [place] | | | | | | [address] | | | | | | [phone] | | | | | | | | +--------+ + + + + | 06/27/ | Office | Physical Therapy | Edith Gil, | | | 2018 | Visit | | PT,DPT [address] | | | | | | [address] | | | | | | [place], [place] | | | | | | [address] | | +--------+ + + + + | 06/27/ | Office | Surgery | Jen Coronel, | | | 2018 | Visit | | AGACNP [address] | | | | | | [place], [place] | | | | | | [address] | | | | | | [phone] | | | | | | | | +--------+ + + + + | 06/27/ | Office | Nutrition | Eli Rodas, | | | 2018 | Visit | | RD [address] | | | | | | [address] | | | | | | [place], [place] | | | | | | [address] | | +--------+ + + + + documented as of this encounter Visit Diagnoses Not on filedocumented in this encounter"
--- OUTSIDE RECORDS SUMMARY | ~2019-06-08 | XMS | Encounter Summary ---
Demographics + + + | Address | [address] | | | [place] [address] | + + + | Home Phone [...] Team Providers + +------+ + | Care Dry Cleaning Teacher Name | Role | Phone | + +------+ + | Quentin Manriuqez | PCP | | + +------+ + Encounter Details +--------+ + + + + | Date | Type | Department | Care Team | Description | +--------+ + + + + | 08/14/ | Diagnostic | Otolaryngology | Michel Rincon, | | | 2014 | Visit | Audiology Services | CCC-A | | | | | at [facility] [address] [facility] | | | | | | [address] | | | | | | Mailcode: PV01 | | | | | | Michelle Aguilera | | | | | | [place], [place] | | | | | | [address] | | | | | | [phone] | | | +--------+ + + + [...] to mild conductive hearing loss. A speech household appliance installer threshold was o btained at 30 dB HL and is in good agreement with responses to pure-tone stimuli. Word clau gnition ability was 100% when words were presented at a comfortable level of 65 dB HL. Left Ear: Near normal hearing with a conductive loss below 2000 Hz; mild sensorineural he aring loss at 8000 Hz. A speech household appliance installer threshold was obtained at 20 dB HL [...] Rd | | | | | | [place], [place] | | | | | | [address] | | | | | | [phone] | | | | | | | [...] Rd | | | | | | [place], [place] | | | | | | [address] | | | | | | [phone] | | | | | | | | +--------+ + + + + | 06/27/ | Office | Physical Therapy | Louise Edith, | | | 2018 | Visit | | PT,DPT [address] | | | | | | [address] | | | | | | [place], [place] | | | | | | [address] | | +--------+ + + + + | 06/27/ | Office | Surgery | Jen Coronel, | | | 2018 | Visit | | AGACNP [address] | | | | | | [place], [place] | | | | | | [address] | | | | | | [phone] | | | | | | | | +--------+ + + + + | 06/27/ | Office | Nutrition | Eli Rodas, | | | 2018 | Visit | | RD [address] | | | | | | [address] | | | | | | [place], [place] | | | | | | [address] | | +--------+ + + + + documented as of this encounter Procedures + +--------+ + + + | Procedure Name | Priori | Date/Time | Associated Diagnosis | Comments | | | ty | | | | + +--------+ + + + | [place] TYMPANOMETRY | Routin | 08/14/2014 | Conductive hearing | | | | e | 4:03 PM | loss, bilateral | | | | | PST | | | + +--------+ + + + | [place] COMPREHENSIVE | Routin | 08/14/2014 | Conductive [...]
--- OUTSIDE RECORDS SUMMARY | ~2019-06-08 | XMS | Encounter Summary ---
Demographics + + + | Address | [address] | | | [place] [address] | + + + | Home Phone [...] Team Providers + +------+ + | Care Grocery Worker Name | Role | Phone | [...] Willy | | | | | | [address] [place], [place] | | | | | | [address] | | | | | | [phone] | | | +--------+ + + + [address] | | | | | | [place], [place] | | | | | | [address] | | | | | | [phone] | | | | | | | [...] Rd | | | | | | [place], [place] | | | | | | [address] | | | | | | [phone] | | | | | | | | +--------+ + + + + | 06/27/ | Office | Physical Therapy | Edith Gil, | | | 2018 | Visit | | PT,DPT [address] | | | | | | [address] | | | | | | [place], [place] | | | | | | [address] | | +--------+ + + + + | 06/27/ | Office | Surgery | Jen Coronel, | | | 2018 | Visit | | AGACNP [address] | | | | | | [place], [place] | | | | | | [address] | | | | | | [phone] | | | | | | | | +--------+ + + + + | 06/27/ | Office | Nutrition | Eli Rodas, | | | 2018 | Visit | | RD [address] | | | | | | [address] | | | | | | [place] | | | | | | [address] | | +--------+ + + + + documented as of this encounter Visit Diagnoses Not on filedocumented in this encounter"
--- OUTSIDE RECORDS SUMMARY | ~2019-06-08 | XMS | Encounter Summary ---
Demographics + + + | Address | [address] | | | [place] [address] | + + + | Home Phone | | + + + | Preferred Language | Unknown | + + + | Marital Status | Single | + + + | Sikh Affiliation | CAT | + + + [...] Team Providers + +------+ + | Care New Accounts Banking Representative Name | Role | Phone | + +------+ + | Gracie Lewis PA-C | PCP | | + +------+ + Encounter Details +--------+ + + + + | Date | Type | Department | Care Team | Description | +--------+ + + + + | 03/07/ | Transcribe | [facility] at [facility] | Transcribe | | | 2019 | Orders | [address] | Encounter, Provider, | | | | | [address] Mailcode: | [address] | | | | | [address] [place] for | [place] [address] | | | | | Health and Healing, | | | | | | [address] | | | | | | [place], [place] | | | | | | [address] | | | | | | [phone] | | | +--------+ + + + [...] Rd | | | | | | [place], [place] | | | | | | [address] | | | | | | [phone] | | | | | | | [...] Rd | | | | | | [place], [place] | | | | | | [address] | | | | | | [phone] | | | | | | | | +--------+ + + + + | 06/27/ | Office | Physical Therapy | Edith Gil, | | | 2018 | Visit | | PT,DPT [address] | | | | | | [address] | | | | | | [place], [place] | | | | | | [address] | | +--------+ + + + + | 06/27/ | Office | Surgery | Jen Coronel, | | | 2018 | Visit | | AGACNP [address] | | | | | | [place], [place] | | | | | | [address] | | | | | | [phone] | | | | | | | | +--------+ + + + + | 06/27/ | Office | Nutrition | Eli Rodas, | | | 2018 | Visit | | RD [address] | | | | | | [address] | | | | | | [place], [place] | | | | | | [address] | | +--------+ + + + + [...]
--- OUTSIDE RECORDS SUMMARY | ~2019-06-08 | XMS | Encounter Summary ---
Demographics + + + | Address | [address] | | | [place] [address] | + + + | Home Phone [...] Team Providers + +------+ + | Care Forming Process Worker Name | Role | Phone [...] Medical Records | | 2019 | | [place] [facility] [address] | | Review | | | | [address] | | | | | | Mailcode: [place] | | | | | | [facility] and | | | | | | [facility] 2 | | | | | | [place], [place] | | | | | | [address] | | | | | | [phone] | | | +--------+ + + + [...] Rd | | | | | | [place], [place] | | | | | | [address] | | | | | | [phone] | | | | | | | [...] [place] | | | | | | [address] | | | | | | [phone] | | | | | | | | +--------+ + + + + | 06/27/ | Office | Physical Therapy | Edith Gil, | | | 2018 | Visit | | PT,DPT [address] | | | | | | [address] | | | | | | [place], [place] | | | | | | [address] | | +--------+ + + + + | 06/27/ | Office | Surgery | Jen Coronel, | | | 2018 | Visit | | AGACNP [address] | | | | | | [place], [place] | | | | | | [address] | | | | | | [phone] | | | | | | | | +--------+ + + + + | 06/27/ | Office | Nutrition | Eli Rodas, | | | 2019 | Visit | | RD [address] [facility] | | | | | | [address] | | | | | | [place] | | | | | | [address] | | +--------+ + + + + documented as of this encounter Visit Diagnoses Not on filedocumented in this encounter"
--- OUTSIDE RECORDS SUMMARY | ~2019-06-08 | XMS | Encounter Summary ---
Demographics + + + | Address | [address] | | | [place] [address] | + + + | Home Phone [...] + + + | Author | [facility] | + + + | Organization | [facility] | + + + | Address | Unknown | + + + | Phone | Unavailable | + + + Support + + +---------+ + | Name | Relationship | Address | Phone | + + +---------+ + | Alisia Nina | ECON | Unknown | | + + +---------+ + Care Team Providers + +------+ + | Care Vest Finisher Name | Role | Phone | + +------+ + | Gracie Lewis PA-C | PCP | | + +------+ + Encounter Details +--------+ + + + + | Date | Type | Department | Care Team | Description | +--------+ + + + + | 03/07/ | Transcribe | [facility] at [facility] | Transcribe | | | 2019 | Orders | [address] | Encounter, Provider, | | | | | [address] Mailcode: | [address] | | | | | [address] [place] for | [place] [address] | | | | | Health and Healing, | | | | | | [address] | | | | | | [place], [place] | | | | | | [address] | | | | | | [phone] | | | +--------+ + + + [...] Rd | | | | | | [place], [place] | | | | | | [address] | | | | | | [phone] | | | | | | | [...] Rd | | | | | | [place], [place] | | | | | | [address] | | | | | | [phone] | | | | | | | | +--------+ + + + + | 06/27/ | Office | Physical Therapy | Edith Gil, | | | 2018 | Visit | | PT,DPT [address] | | | | | | [address] | | | | | | [place], [place] | | | | | | [address] | | +--------+ + + + + | 06/27/ | Office | Surgery | Jen Coronel, | | | 2018 | Visit | | AGACNP [address] | | | | | | [place], [place] | | | | | | [address] | | | | | | [phone] | | | | | | | | +--------+ + + + + | 06/27/ | Office | Nutrition | Eli Rodas, | | | 2018 | Visit | | RD [address] | | | | | | [address] | | | | | | [place], [place] | | | | | | [address] | | +--------+ + + + + [...]
--- OUTSIDE RECORDS SUMMARY | ~2019-06-08 | XMS | Encounter Summary ---
Demographics + + + | Address | [address] | | | [place] [address] | + + + | Home Phone [...] + + + | Author | [facility] | + + + | Organization | [facility] | + + + | Address | Unknown | + + + | Phone | Unavailable | + + + Support + + +---------+ + | Name | Relationship | Address | Phone | + + +---------+ + | Alisia Nina | ECON | Unknown | | + + +---------+ + Care Team Providers + +------+ + | Care Corporate Securities Research Analyst Name | Role | Phone | [...] | | | [address] | [place], [place] | | | | | Mailcode: PV01 | [address] | | | | | [facility]ician[facility] | [phone] | | | | | [place], [place] | | | | | | [address] | | | | | | [phone] | | | +--------+ + + + [...] Rd | | | | | | [facility] [place] | | | | | | [address] | | | | | | [phone] | | | | | | | [...] Rd | | | | | | [place] | | | | | | [address] | | | | | | [phone] | | | | | | | | +--------+ + + + + | 06/27/ | Office | Physical Therapy | Edith Gil, | | | 2018 | Visit | | PT,DPT [address] | | | | | | [address] | | | | | | [place], [place] | | | | | | [address] | | +--------+ + + + + | 06/27/ | Office | Surgery | Jen Coronel, | | | 2018 | Visit | | AGACNP [address] | | | | | | [place] | | | | | | [address] | | | | | | [phone] | | | | | | | | +--------+ + + + + | 06/27/ | Office | Nutrition | Eli Rodas, | | | 2018 | Visit | | RD [address] | | | | | | [address] | | | | | | [place], [place] | | | | | | [address] | | +--------+ + + + + documented as of this encounter Visit Diagnoses Not on filedocumented in this encounter"
--- OUTSIDE RECORDS SUMMARY | ~2019-06-08 | XMS | Encounter Summary ---
Demographics + + + | Address | [address] | | | [place] [address] | + + + | Home Phone [...] Author + + + | Author | [facility] | + + + | Organization | [facility] | + + + | Address | Unknown | + + + | Phone | Unavailable | + + + Support + + +---------+ + | Name | Relationship | Address | Phone | + + +---------+ + | Alisia Nina | ECON | Unknown | | + + +---------+ + Care Team Providers + +------+ + | Care Air Quality Manager Name | Role | Phone | [...] + + | 03/06/ | Hospital | Endoscopic | Ehsan Cotto MD | | | 2019 | Encounter | Procedural Unit at | [address] | | | | | [facility] [address] | [address] | | | | | [place] Mailcode: | [place], [place] | | | | | [facility] | [address] | | | | | and [place], | [phone] | | | | | [facility] 2 | | | | | | [place], [place] | | | | | | [address] | | | | | | [phone] | | | +--------+ + + + [...] by mouth | 30 | 0 | 10/01/20 | | | immediate release, 5 | [...] total | 8000 mL | 0 | 03/01/20 | | | [id number] -5.86 | (1.5 [...] Rd | | | | | | [place], [place] | | | | | | [address] | | | | | | [phone] | | | | | | | [...] Rd | | | | | | [place], [place] | | | | | | [address] | | | | | | [phone] | | | | | | | | +--------+ + + + + | 06/27/ | Office | Physical Therapy | Edith Gil, | | | 2018 | Visit | | PT,DPT [address] | | | | | | [address] | | | | | | [place], [place] | | | | | | [address] | | +--------+ + + + + | 06/27/ | Office | Surgery | Jen Coronel, | | | 2018 | Visit | | AGACNP [address] | | | | | | [place], [place] | | | | | | [address] | | | | | | [phone] | | | | | | | | +--------+ + + + + | 06/27/ | Office | Nutrition | Eli Rodas, | | | 2018 | Visit | | RD [address] [facility] | | | | | | [address] | | | | | | [place], [place] | | | | | | [address] | | +--------+ + + + + [...]
--- OUTSIDE RECORDS SUMMARY | ~2019-06-08 | XMS | Encounter Summary ---
Demographics + + + | Address | [address] | | | [place] [address] | + + + | Home Phone [...] Team Providers + +------+ + | Care Loan Interviewer Name | Role | Phone | + [...] | MD Loli [address] | ear infection ) | | | | [facility] [address] | [address] | | | | | [address] | [place], [place] | | | | | Mailcode: PV01 | [address] | | | | | [facility] | [phone] | | | | | [place], [place] | | | | | | [address] | | | | | | [phone] | | | +--------+ + + + [...] | 2019 | Encounter | | [address] [facility] | | | | | | [address] | | | | | | [place], [place] | | | | | | [address] | | | | | | [phone] | | | | | | | [...] Rd | | | | | | [place], [place] | | | | | | [address] | | | | | | [phone] | | | | | | | | +--------+ + + + + | 06/27/ | Office | Physical Therapy | Edith Gil, | | | 2018 | Visit | | PT,DPT [address] | | | | | | [address] | | | | | | [place], [place] | | | | | | [address] | | +--------+ + + + + | 06/27/ | Office | Surgery | Jen Coronel, | | | 2018 | Visit | | AGACNP [address] | | | | | | [place], [place] | | | | | | [address] | | | | | | [phone] | | | | | | | | +--------+ + + + + | 06/27/ | Office | Nutrition | Eli Rodas, | | | 2019 | Visit | | RD [address] [facility] | | | | | | [address] | | | | | | [place] | | | | | | [address] | | +--------+ + + + + documented as of this encounter Visit Diagnoses Not on filedocumented in this encounter"
--- OUTSIDE RECORDS SUMMARY | ~2019-06-08 | XMS | Clinical Summary ---
Demographics + + + | Address | [address] | | | [place] [address] | + + + | Home Phone | | + + + | Preferred Language | Unknown | + + + | Marital Status | Single | + + + | Restorationist Affiliation | Unknown | + + + | Race | Unknown | + + + | Ethnic Group | Unknown | + + + Author + + + | Author | [facility] (Historical as of | | | 03-24-19) | + + + | Organization | [facility] (Historical as of | | | 03-24-19) [...] Team Providers + +------+ + | Care Kettle Operator Head Name | Role | Phone | [...] +------+-------+ + | MEDICAID | [place] | [id number] | | | [address] | | | N | | | | [place] | | | [place] | | | | [address] | | | BUILDING CONSTRUCTION FOREMAN | | | | | + +--------+ [...] Self | [birth year] | Home: | [address] | | | al/Fam | | 1970 | [phone] | [place] [address] | | | neil | | | 2048 | | + +--------+ +--------+ + +
--- OUTSIDE RECORDS SUMMARY | ~2019-06-08 | XMS | Clinical Summary ---
Demographics + + + | Address | [address] | | | [place] [address] | + + + | Home Phone | | + + + | Preferred Language | Unknown | + + + | Marital Status | Single | + + + | Baptism Affiliation | Unknown | + + + | Race | Unknown | + + + | Ethnic Group | Unknown | + + + Author + + + | Author | [facility] (Historical as of | | | 03-24-19) | + + + | Organization | [facility] (Historical as of | | | 03-24-19) [...] Team Providers + +------+ + | Care Airframe Technician Name | Role | Phone | [...] +------+-------+ + | MEDICAID | [place] | [id number] | | | [address] | | | N | | | | [place] | | | [place] | | | | [address] | | | ORACLE TECHNICAL ARCHITECT | | | | | + +--------+ [...] Self | [birth year] | Home: | [address] | | | al/Fam | | 1970 | [phone] | [place] [address] | | | neil | | | 2048 | | + +--------+ +--------+ + +
--- OUTSIDE RECORDS SUMMARY | ~2019-06-08 | XMS | Encounter Summary ---
Demographics + + + | Address | [address] | | | [place] [address] | + + + | Home Phone [...] Team Providers + +------+ + | Care Delivery Assistant Name | Role | Phone | + +------+ + | Gracie Lewis PA-C | PCP | | + +------+ + Encounter Details +--------+ + + + + | Date | Type | Department | Care Team | Description | +--------+ + + + + | 04/24/ | Abstract | Digestive Health | Clinic, Surgery | | | 2019 | | [place] [facility] [address] | | | | | | [address] | | | | | | Mailcode: [place] | | | | | | for Health and | | | | | | Healing, [address] | | | | | | [place], [place] | | | | | | [address] | | | | | | [phone] | | | +--------+ + + + [...] Rd | | | | | | [place], [place] | | | | | | [address] | | | | | | [phone] | | | | | | | [...] Rd | | | | | | [place], [place] | | | | | | [address] | | | | | | [phone] | | | | | | | | +--------+ + + + + | 06/27/ | Office | Physical Therapy | Edith Gil, | | | 2018 | Visit | | PT,DPT [address] | | | | | | [address] | | | | | | [place], [place] | | | | | | [address] | | +--------+ + + + + | 06/27/ | Office | Surgery | Jen Coronel, | | | 2018 | Visit | | AGACNP [address] | | | | | | [place], [place] | | | | | | [address] | | | | | | [phone] | | | | | | | | +--------+ + + + + | 06/27/ | Office | Nutrition | Eli Rodas, | | | 2018 | Visit | | RD [address] | | | | | | [address] | | | | | | [place], [place] | | | | | | [address] | | +--------+ + + + + documented as of this encounter Visit Diagnoses Not on filedocumented in this encounter"
--- OUTSIDE RECORDS SUMMARY | ~2019-06-08 | XMS | Encounter Summary ---
Demographics + + + | Address | [address] | | | [place] [address] | + + + | Home Phone [...] Team Providers + +------+ + | Care Ship Design Teacher Name | Role | Phone | [...] [address] | | | | | ([facility]) | [address] | Mailcode: | | | | | Procedures | [place], | [address] | | | | | PHYSICAL | [place] | for Health | | | | | THERAPY | [address] | and Healing, | | | | | REFERRAL | Phone: | [address], | | | | | | [phone] | [address] | | | | | | Fax: | [place], [place] | | | | | | [phone] | [address] | | | | | | | Phone: | | | | | | | [phone] | | | | | | | Fax: | | | | | | | [phone] | + +--------+ + + + + Encounter Details +--------+ + + + + | Date | Type | Department | Care Team | Description | +--------+ + + + + | 05/03/ | Technical Maintenance Specialist | Digestive Health | Jen Coronel, | Morbid obesity (HCC) | | 2019 | | [facility] at [facility] [address] | AGAC[address] | (Primary Dx) | | | | [address] | [address] [facility] [place] | | | | | Mailcode: Center | [address] | | | | | for Health and | | | | | | [facility], [address] | | | | | | [place], [place] | | | | | | [address] | | | | | | [phone] | | | +--------+ + + + [...] | 2018 | Encounter | | [address] [facility] | | | | | | [address] | | | | | | [place], [place] | | | | | | [address] | | | | | | [phone] | | | | | | | [...] Rd | | | | | | [place], [place] | | | | | | [address] | | | | | | [phone] | | | | | | | | +--------+ + + + + | 06/27/ | Office | Physical Therapy | Edith Gil, | | | 2018 | Visit | | PT,DPT [address] | | | | | | [address] | | | | | | [place], [place] | | | | | | [address] | | +--------+ + + + + | 06/27/ | Office | Surgery | Jen Coronel, | | | 2018 | Visit | | AGACNP [address] | | | | | | [place], [place] | | | | | | [address] | | | | | | [phone] | | | | | | | | +--------+ + + + + | 06/27/ | Office | Nutrition | Eli Rodas, | | | 2019 | Visit | | RD [address] [facility] | | | | | | [address] | | | | | | [facility] [place] | | | | | | [address] | | +--------+ + + + + documented as of this encounter Visit Diagnoses + + | Diagnosis | + + | Morbid obesity (HCC) - Primary Morbid obesity | + + documented in this encounter"
--- OUTSIDE RECORDS SUMMARY | ~2019-06-08 | XMS | Clinical Summary ---
Demographics + + + | Address | [address] | | | [place] [address] | + + + | Home Phone [...] | Author | [facility] | | | and Shaneana | + + + | Organization | [facility] [...] [place], [place]AK[place] | | | | | [address] | | + + + + + | Pratibha Hetser | ECON | Unknown | + | + + + + + | Demian Powell | ECON | Unknown | + | + + + + + Care Team Providers + +------+ + | Care Acls Specialist Name | Role | Phone | [...] 0 | | | Activ | | 67336 units CAPS | mouth Daily. | | [...] | | 17 | | | | (TRI-RJA) | FOR 8 WEEKS IN A | [...] | + + + + | INFLUENZA, [id number], | 08/05/2009 | | | UNSPECIFIED | [...] | | | | | | [place] [address] | | | | | | [phone] | | | | | | | [...] | OSTEOTECH - | | 10/03/ | [id number] | | [id number]: Qty: 1 | | | OSTT | | 2020 | | | on 12/12/2014 by Clarke, | | | | | | /[id number] | | Sascha Armendariz DO | | | | | | 2-039 | | | | | | | | /38-30 | | | | | | | | 12 | + +------+--------+ +--------+--------+--------+ | Graft Infuse Bone Kit Xxs - | | | SOFAMOR | | / | [id number] | | [id number]: Qty: 1 on | | | DANEK - DIV | | 2016 | 0 / | | 12/12/2014 by Sascha Mir | | | [employer] | | | /[id number] | | ADO | | | - SFDK | | | [id number] | + +------+--------+ +--------+--------+--------+ | SpacerImplanted: Qty: 1 on | | Founding Partner | [employer] - | | 10/04/ | [id number] | | 12/12/2014 by Sascha Mir | | ior: | MEDT | | 2022 | 9 / | | DO Kala | | Spine | | | | /[id number] | | | | Lumbar | | | | 520 | + +------+--------+ +--------+--------+--------+ | Screw Amanda Solera 6.5x50mm - | | Founding Partner | SO[employer]AMOR | | | [id number] | | [id number]: Qty: 1 on | | ior: | DANEK - DIV | | | [id number] | | 12/12/2014 by Sascha Mir | | Spine | [employer] | | | / / | | Kala DO | | Lumbar | - SFDK | | | | + +------+--------+ +--------+--------+--------+ | Screw Amanda Solera 6.5x45mm - | | Founding Partner | [employer]OR | | | [id number] | | [id number]: Qty: 1 on | | ior: | ARUNEK - DIV | | | [id number] | | 12/12/2014 by Sascha Mir | | Spine | [employer] | | | / / | | DO Kala | | Lumbar | - SFDK | | | | + +------+--------+ +--------+--------+--------+ | Screw Mas G5 Slra 7.5x40 Cn - | | Founding Partner | SOFAMOR | | | [id number] | | [id number]: Qty: 1 | | ior: | DANEK - DIV | | | [id number] | | on 12/12/2014 by Clarke, | | Spine | [employer] | | | / / | | Sascha Armendariz DO | | Lumbar | - SFDK | | | | + +------+--------+ +--------+--------+--------+ | Screw Amanda 8.5x40mm - | | Founding Partner | [employer] - | | | [id number] | | [id number]: Qty: 1 on | | ior: | MEDT | | | [id number] | | 12/12/2014 by Sascha Mir | | Spine | | | | / / | | DO Kala | | Lumbar | | | | | + +------+--------+ +--------+--------+--------+ | Set Scrw Ns G5 Brk Off Ti | | Founding Partner | SO[employer]OR | | | [id number] | | 4.75 - [id number]: | | ior: | DANEK - DIV | | | 0 / / | | Qty: 4 on 12/12/2014 by | | Spine | [employer] | | | | | Sascha Mir DO | | Lumbar | - SFDK | | | | + +------+--------+ +--------+--------+--------+ | Imp Spn Francis Ti Sext Ti 5.5x45 | | Founding Partner | SO[employer]OR | | | [id number] | | - [id number]: Qty: 2 | | ior: | DANEK [...] | Cannulated Screw Cd Horizon | | Founding Partner | [employer] - | | | [id number] | | SoleraExplanted: Qty: 1 on | | ior: | MEDT | | | [id number] | | 12/12/2014 | | Spine | [...] | [employer] | MODA | [id number] | | [phone] | | Medica | | MEDICAID HMO | HEALTH | | 015-Pr | 1 | | id | | | MDCD | | esent | | | | | | [place]MO [place] | | | | | | + +--------+ +--------+ +---------+--------+ | [facility] | IHS | [id number] | | | | Indemn | | SERVICE | YELLOW | | 2012-P | | | ity | | | HAWK | | resent | | | | + +--------+ +--------+ +---------+--------+ | [employer] | MODA | [id number] | | [phone] | | Medica | | MEDICAID HMO | HEALTH | | 019-Pr | 1 | | id | | | MDCD | | esent | | | | | | [place] | | | | | | + +--------+ +--------+ +---------+--------+ | REPLACED BY [facility] | IHS | [id number] | 04/08/20 | | | Indemn | [...] | 1970 | [phone] | [place] [address] | | | neil | | | 7 (Home) | | + +--------+ +--------+ + + | Demian Nina | Person | Self | [birth year] | [address] | | | al/Fam | | 1970 | [phone] | [place] [address] | | | neil | | | 7 (Home) | | + +--------+ +--------+ + + Advance Directives Patient has advance care planning documents, and code status on file. For more information, please contact:[facility] [place] [address] + + + + + | Code Status | Date | Date | Comments | | | Activated | Inactivated | | + + + + + | Full Code | 12/12/2014 | 12/16/2014 | | | | 14:33 | 17:17 | | + + + + +
--- OUTSIDE RECORDS SUMMARY | ~2019-06-08 | XMS | Encounter Summary ---
Demographics + + + | Address | [address] | | | [place] [address] | + + + | Home Phone [...] Team Providers + +------+ + | Care White Shoe Examiner Name | Role | Phone | [...] | | | | at [facility] [address] [facility] | | | | | | [address] | | | | | | Mailcode: PV01 | | | | | | Michelle Aguilera | | | | | | [place], [place] | | | | | | [address] | | | | | | [phone] | | | +--------+ + + + [...] audiological evaluation today as part of Dr. Temlpe's otology clinic. Please see same day otology [...] to mild conductive hearing loss. A speech dental office receptionist threshold was o btained at 30 dB HL and is in good agreement with responses to pure-tone stimuli. Word clau gnition ability was 100% when words were presented at a comfortable level of 65 dB HL. Left Ear: Near normal hearing with a conductive loss below 2000 Hz; mild sensorineural he aring loss at 8000 Hz. A speech dental office receptionist threshold was obtained at 20 dB [...] Rd | | | | | | [place], [place] | | | | | | [address] | | | | | | [phone] | | | | | | | [...] Rd | | | | | | [place], [place] | | | | | | [address] | | | | | | [phone] | | | | | | | | +--------+ + + + + | 06/27/ | Office | Physical Therapy | Louise Edith, | | | 2018 | Visit | | PT,DPT [address] | | | | | | [address] | | | | | | [place], [place] | | | | | | [address] | | +--------+ + + + + | 06/27/ | Office | Surgery | Jen Coronel, | | | 2018 | Visit | | AGACNP [address] | | | | | | [place], [place] | | | | | | [address] | | | | | | [phone] | | | | | | | | +--------+ + + + + | 06/27/ | Office | Nutrition | Eli Rodas, | | | 2018 | Visit | | RD [address] | | | | | | [address] | | | | | | [place], [place] | | | | | | [address] | | +--------+ + + + + documented as of this encounter Procedures + +--------+ + + + | Procedure Name | Priori | Date/Time | Associated Diagnosis | Comments | | | ty | | | | + +--------+ + + + | VT TYMPANOMETRY | Routin | 08/14/2014 | Conductive hearing | | | | e | 4:03 PM | loss, bilateral | | | | | PST | | | + +--------+ + + + | VT COMPREHENSIVE | Routin | 08/14/2014 | Conductive [...]
--- OUTSIDE RECORDS SUMMARY | ~2019-06-08 | XMS | Encounter Summary ---
Demographics + + + | Address | [address] | | | [place] [address] | + + + | Home Phone [...] Team Providers + +------+ + | Care Video Software Engineer Name | Role | Phone [...] | Peripheral | Epic Dept | [facility] [address] | | | | | vertigo, | | [address] | | | | | unspecified | | [address] | | | | | Dysfunction | | Mailcode: | | | | | of | | PV01 | | | | | eustachian | | Physician's | | | | | tube | | Pavilion | | | | | Nonsuppurati | | [place], [place] | | | | | ve otitis | | [address] | | | | | media, not | | Phone: | | | | | specified as | | [phone] | | | | | acute or | | Fax: | | | | | chronic | | [phone] | | | | | Conductive | [...] | MD Loli [address] | dysfunction), | | | | [facility] [address] | [address] | bilateral (Primary | | | | [address] | [place], [place] | Dx); OME (otitis | | | | Mailcode: PV01 | [address] | media with | | | | [facility] | [phone] | effusion), right; | | | | [place], [place] | | Conductive hearing | | | | [address] | | loss in right ear; | | | | [phone] | | Dizziness; Nausea | +--------+---------+ + [...] No spontaneous nystagmus. Normal head thrust. Normal fexjkk-fa-uxyl and rapid alternat ing motion. Negative Romberg. [...] with new audiogram. Windy Rodriguez MD PhD Rn Embedded Otology, Neurotology & Skull Base Surgery documented [...] DAN | | | | | | [address] | | | | | | [phone] | | | | | | | [...] [place] | | | | | | [address] | | | | | | [phone] | | | | | | | | +--------+ + + + + | 06/27/ | Office | Physical Therapy | Edith Gil, | | | 2018 | Visit | | PT,DPT [address] | | | | | | [address] | | | | | | [place], [place] | | | | | | [address] | | +--------+ + + + + | 06/27/ | Office | Surgery | Jen Coronel, | | | 2018 | Visit | | AGACNP [address] | | | | | | [place], [place] | | | | | | [address] | | | | | | [phone] | | | | | | | | +--------+ + + + + | 06/27/ | Office | Nutrition | Eli Rodas, | | | 2018 | Visit | | RD [address] | | | | | | [address] | | | | | | [place], [place] | | | | | | [address] | | +--------+ + + + + documented as of this encounter Procedures + +--------+ + + + | Procedure Name | Priori | Date/Time | Associated Diagnosis | Comments | | | ty | | | | + +--------+ + + + | IL CREATE EARDRUM | Routin | 04/01/2014 | [...]
--- OUTSIDE RECORDS SUMMARY | ~2019-06-08 | XMS | Encounter Summary ---
Demographics + + + | Address | [address] | | | [place] [address] | + + + | Home Phone [...] Team Providers + +------+ + | Care Agronomy Instructor Name | Role | Phone | [...] [address] | | | | | [address] | | [address] | | | | | eustachian | | [address] | | | | | tube | | Mailcode: | | | | | Nonsuppurati | | PV01 | | | | | ve otitis | | Physician's | | | | | media, not | | Pavilion | | | | | specified as | | [place], [place] | | | | | acute or | | [address] | | | | | chronic | | Phone: | | | | | Conductive | | [phone] | | | | | hearing | | Fax: | | | | | loss, | | [phone] | | | | | unilateral | [...] | | | [address] | [place], [place] | Dx); Conductive | | | | Mailcode: PV01 | [address] | hearing loss in | | | | [facility] | [phone] | right ear; Dizziness | | | | [place], [place] | | | | | | [address] | | | | | | [phone] | | | +--------+---------+ + + + [...] me after testing. Windy Rodriguez MD PhD Railway Traction Line Worker Otology, Neurotology & Skull Base Surgery documented in this encounter Plan of Treatment +--------+ + + + + | Date | Type | Specialty | Care Team | Description | +--------+ + + + + | 06/12/ | Hospital | | Ehsan Cotto MD | | | 2018 | Encounter | | [address] [facility] | | | | | | [facility] | | | | | | [place], [place] | | | | | | [address] | | | | | | [phone] | | | | | | | [...] Rd | | | | | | [place], [place] | | | | | | [address] | | | | | | [phone] | | | | | | | | +--------+ + + + + | 06/27/ | Office | Physical Therapy | Edith Gil, | | | 2018 | Visit | | PT,DPT [address] | | | | | | [address] | | | | | | [place], [place] | | | | | | [address] | | +--------+ + + + + | 06/27/ | Office | Surgery | Jen Coronel, | | | 2018 | Visit | | AGACNP [address] | | | | | | [place], [place] | | | | | | [address] | | | | | | [phone] | | | | | | | | +--------+ + + + + | 06/27/ | Office | Nutrition | Jose LuisEli sam, | | | 2019 | Visit | | RD [address] [facility] | | | | | | [address] | | | | | | [place] | | | | | | [address] | | +--------+ + + + + documented as of this encounter Procedures + +--------+ + + + | Procedure Name | Priori | Date/Time | Associated Diagnosis | Comments | | | ty | | | | + +--------+ + + + | NE EAR MICROSCOPY | Routin | 12/05/2014 | [...]
--- OUTSIDE RECORDS SUMMARY | ~2019-06-08 | XMS | Encounter Summary ---
Demographics + + + | Address | [address] | | | [place] [address] | + + + | Home Phone [...] Team Providers + +------+ + | Care Mat Making Machine Tender Name | Role | Phone [...] | | | [address] | [place], [place] | | | | | Mailcode: PV01 | [address] | | | | | [facility] | [phone] | | | | | [place], [place] | | | | | | [address] | | | | | | [phone] | | | +--------+ + + + [...] Rd | | | | | | [place], [place] | | | | | | [address] | | | | | | [phone] | | | | | | | [...] Rd | | | | | | [place], [place] | | | | | | [address] | | | | | | [phone] | | | | | | | | +--------+ + + + + | 06/27/ | Office | Physical Therapy | Edith Gil, | | | 2018 | Visit | | PT,DPT [address] | | | | | | [address] | | | | | | [place], [place] | | | | | | [address] | | +--------+ + + + + | 06/27/ | Office | Surgery | Jen Coronel, | | | 2018 | Visit | | AGACNP [address] | | | | | | [place], [place] | | | | | | [address] | | | | | | [phone] | | | | | | | | +--------+ + + + + | 06/27/ | Office | Nutrition | Eli Rodas, | | | 2018 | Visit | | RD [address] | | | | | | [address] | | | | | | [place], [place] | | | | | | [address] | | +--------+ + + + + documented as of this encounter Visit Diagnoses Not on filedocumented in this encounter"
--- OUTSIDE RECORDS SUMMARY | ~2019-06-08 | XMS | Encounter Summary ---
Demographics + + + | Address | [address] | | | [place] [address] | + + + | Home Phone [...] Team Providers + +------+ + | Care Vehicle Return Associate Name | Role | Phone | + +------+ + | Gracie Lweis PA-C | PCP | | + +------+ + Encounter Details +--------+ + + + + | Date | Type | Department | Care Team | Description | +--------+ + + + + | 04/25/ | Documentati | Digestive Health | Clinic, Surgery | | | 2019 | on | [place] at [facility] [address] | | | | | | [address] | | | | | | Mailcode: Center | | | | | | for Health and | | | | | | Healing, [address] | | | | | | [facility] [place] | | | | | | [address] | | | | | | [phone] | | | +--------+ + + + [...] Rd | | | | | | [place], [place] | | | | | | [address] | | | | | | [phone] | | | | | | | [...] Rd | | | | | | [place], [place] | | | | | | [address] | | | | | | [phone] | | | | | | | | +--------+ + + + + | 06/27/ | Office | Physical Therapy | Louise Edith, | | | 2018 | Visit | | PT,DPT [address] | | | | | | [address] | | | | | | [place], [place] | | | | | | [address] | | +--------+ + + + + | 06/27/ | Office | Surgery | Jen Coronel, | | | 2018 | Visit | | AGACNP [address] | | | | | | [place], [place] | | | | | | [address] | | | | | | [phone] | | | | | | | | +--------+ + + + + | 06/27/ | Office | Nutrition | Eli Rodas, | | | 2018 | Visit | | RD [address] | | | | | | [address] | | | | | | [place], [place] | | | | | | [address] | | +--------+ + + + + documented as of this encounter Visit Diagnoses Not on filedocumented in this encounter"
--- OUTSIDE RECORDS SUMMARY | ~2019-06-08 | XMS | Encounter Summary ---
Demographics + + + | Address | [address] | | | [place] [address] | + + + | Home Phone [...] Providers + +------+ + | Care Pediatric Dentist Name | Role | Phone | + +------+ + | Gracie Lewis PA-C | PCP | | + +------+ + Encounter Details +--------+ + + + + | Date | Type | Department | Care Team | Description | +--------+ + + + + | 10/19/ | Outside | [facility] at [facility] | Angelo Abrams | | | 2019 | Referral | [facility] [address] | MD G[address] | | | | Order | [address] Mailcode: | georgette Cano | | | | | [address] [place] [address] for | [place] [address] | | | | | Health and Healing, | [phone] | | | | | [facility] [address] | | | | | | [place], [place] | | | | | | [address] | | | | | | [phone] | | | +--------+ + + + [...] Rd | | | | | | [place], [place] | | | | | | [address] | | | | | | [phone] | | | | | | | [...] Rd | | | | | | [place], [place] | | | | | | [address] | | | | | | [phone] | | | | | | | | +--------+ + + + + | 06/27/ | Office | Physical Therapy | Louise Edith, | | | 2018 | Visit | | PT,DPT [address] | | | | | | [address] | | | | | | [place] | | | | | | [address] | | +--------+ + + + + | 06/27/ | Office | Surgery | Jen Coronel, | | | 2018 | Visit | | AGACNP [address] | | | | | | [place], [place] | | | | | | [address] | | | | | | [phone] | | | | | | | | +--------+ + + + + | 06/27/ | Office | Nutrition | Eli Rodas, | | | 2018 | Visit | | RD [address] | | | | | | [address] | | | | | | [place] | | | | | | [address] | | +--------+ + + + + [...]
--- OUTSIDE RECORDS SUMMARY | ~2019-06-08 | XMS | Encounter Summary ---
Demographics + + + | Address | [address] | | | [place] [address] | + + + | Home Phone [...] Team Providers + +------+ + | Care Buildings Painter Name | Role | Phone | + [...] | | | | Nonsuppurati | | [place], [place] | | | | | ve otitis | | [address] | | | | | media, not | | Phone: | | | | | specified as | | [phone] | | | | | acute or | | Fax: | | | | | chronic | | [phone] | | | | | Conductive | [...] | | | [address] | [place], [place] | Dx); OME (otitis | | | | Mailcode: PV01 | [address] | media with | | | | [facility] | [phone] | effusion), right; | | | | [place], [place] | | Conductive hearing | | | | [address] | | loss in right ear; | | | | [phone] | | Dizziness; Nausea | +--------+---------+ + [...] No spontaneous nystagmus. Normal head thrust. Normal efeopd-nx-vtau and rapid alternat ing motion. Negative Romberg. [...] with new audiogram. Windy Rodriguez MD PhD Cue Selector Otology, Neurotology & Skull Base Surgery documented [...] [place] | | | | | | [address] | | | | | | [phone] | | | | | | | [...] [place] | | | | | | [address] | | | | | | [phone] | | | | | | | | +--------+ + + + + | 06/27/ | Office | Physical Therapy | Edith Gil, | | | 2018 | Visit | | PT,DPT [address] | | | | | | [address] | | | | | | [place], [place] | | | | | | [address] | | +--------+ + + + + | 06/27/ | Office | Surgery | Jen Coronel, | | | 2018 | Visit | | AGACNP [address] | | | | | | [place], [place] | | | | | | [address] | | | | | | [phone] | | | | | | | | +--------+ + + + + | 06/27/ | Office | Nutrition | Eli Rodas, | | | 2018 | Visit | | RD [address] | | | | | | [address] | | | | | | [place], [place] | | | | | | [address] | | +--------+ + + + + documented as of this encounter Procedures + +--------+ + + + | Procedure Name | Priori | Date/Time | Associated Diagnosis | Comments | | | ty | | | | + +--------+ + + + | PA CREATE EARDRUM | Routin | 04/01/2014 | [...]
--- OUTSIDE RECORDS SUMMARY | ~2019-06-08 | XMS | Encounter Summary ---
Demographics + + + | Address | [address] | | | [place] [address] | + + + | Home Phone [...] Team Providers + +------+ + | Care Computer Video Game Designer Name | Role | Phone | [...] + + | 05/08/ | Emergency | [facility] Emergency | Davis Cabrera MD | | | 2008 | | Department [address] | [address] | | | | [address] | [facility] | | | | | [facility] | [place], [place] | | | | | [place], [place] | [address] | | | | | [address] | [phone] | | | | | [phone] | | | +--------+ + + + [...] be followed carefully by your caregiver or tire recapper. 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 You do not have pain relief from prescribed medications. Your condition is worsening or has changed from what originally brought you in. ExitCare Patient Information 2006 [employer]. documented in this encounter Medications at Time [...] Rd | | | | | | [place], [place] | | | | | | [address] | | | | | | [phone] | | | | | | | [...] Rd | | | | | | [facility], [place] | | | | | | [address] | | | | | | [phone] | | | | | | | | +--------+ + + + + | 06/27/ | Office | Physical Therapy | Edith Gil, | | | 2018 | Visit | | PT,DPT [address] | | | | | | [address] | | | | | | [place] | | | | | | [address] | | +--------+ + + + + | 06/27/ | Office | Surgery | Jen Coronel, | | | 2018 | Visit | | AGACNP [address] | | | | | | [place] | | | | | | [address] | | | | | | [phone] | | | | | | | | +--------+ + + + + | 06/27/ | Office | Nutrition | Eli Rodas, | | | 2018 | Visit | | RD [address] | | | | | | [address] | | | | | | [place] | | | | | | [address] | | +--------+ + + + + documented as of this encounter Visit Diagnoses + + | Diagnosis | + + | Herpes Zoster Herpes zoster without mention of complication | + + documented in this encounter"
--- OUTSIDE RECORDS SUMMARY | ~2019-06-08 | XMS | Encounter Summary ---
Demographics + + + | Address | [address] | | | [place] [address] | + + + | Home Phone [...] Team Providers + +------+ + | Care Fiberglass Boat Maker Name | Role | Phone | + +------+ + | Quentin Manriquez | PCP | | + +------+ + Encounter Details +--------+ + + + + | Date | Type | Department | Care Team | Description | +--------+ + + + + | 02/16/ | Abstract | Digestive Health | Clinic, | | | 2017 | | [place] at [facility] [address] | Gastroenterology | | | | | [address] | | | | | | Mailcode: [place] | | | | | | [facility] Health and | | | | | | Healing, [address] | | | | | | [place], [place] | | | | | | [address] | | | | | | [phone] | | | +--------+ + + + [...] Rd | | | | | | [place], [place] | | | | | | [address] | | | | | | [phone] | | | | | | | [...] Rd | | | | | | [facility] [place] | | | | | | [address] | | | | | | [phone] | | | | | | | | +--------+ + + + + | 06/27/ | Office | Physical Therapy | Edith Gil, | | | 2018 | Visit | | PT,DPT [address] | | | | | | [address] | | | | | | [place] | | | | | | [address] | | +--------+ + + + + | 06/27/ | Office | Surgery | eJn Coronel, | | | 2018 | Visit | | AGACNP [address] | | | | | | [place] | | | | | | [address] | | | | | | [phone] | | | | | | | | +--------+ + + + + | 06/27/ | Office | Nutrition | Eli Rodas, | | | 2018 | Visit | | RD [address] | | | | | | [address] | | | | | | [place] | | | | | | [address] | | +--------+ + + + + documented as of this encounter Visit Diagnoses Not on filedocumented in this encounter"
--- OUTSIDE RECORDS SUMMARY | ~2019-06-08 | XMS | Encounter Summary ---
Demographics + + + | Address | [address] | | | [place] [address] | + + + | Home Phone [...] Team Providers + +------+ + | Care Typing Office Worker Name | Role | Phone [...] | | | [address] | [place], [place] | | | | | Mailcode: PV01 | [address] | | | | | [facility] | [phone] | | | | | [place], [place] | | | | | | [address] | | | | | | [phone] | | | +--------+ + + + [...] Rd | | | | | | [facility] [place] | | | | | | [address] | | | | | | [phone] | | | | | | | [...] Rd | | | | | | [place] | | | | | | [address] | | | | | | [phone] | | | | | | | | +--------+ + + + + | 06/27/ | Office | Physical Therapy | Edith Gil, | | | 2018 | Visit | | PT,DPT [address] | | | | | | [address] | | | | | | [place], [place] | | | | | | [address] | | +--------+ + + + + | 06/27/ | Office | Surgery | Jen Coronel, | | | 2018 | Visit | | AGACNP [address] | | | | | | [place] | | | | | | [address] | | | | | | [phone] | | | | | | | | +--------+ + + + + | 06/27/ | Office | Nutrition | Eli Rodas, | | | 2018 | Visit | | RD [address] | | | | | | [address] | | | | | | [place], [place] | | | | | | [address] | | +--------+ + + + + documented as of this encounter Visit Diagnoses Not on filedocumented in this encounter"
--- OUTSIDE RECORDS SUMMARY | ~2019-06-08 | XMS | Encounter Summary ---
Demographics + + + | Address | [address] | | | [place] [address] | + + + | Home Phone | | + + + | Preferred Language | Unknown | + + + | Marital Status | Single | + + + | Faith Affiliation | CAT | + + + [...] Team Providers + +------+ + | Care Trim Technician Name | Role | Phone | [...] | | | | | Procedures | [place], [place] | [facility] | | | | | [address] | [address] | [place], [place] | | | | | BENIGN | Phone: | [phone] | | | | | DISEASE WO | [phone] | Phone: | | | | | IN CT | Fax: | [phone] | | | | | SCAN,ORBIT/S | [phone] | Fax: | | | | | CORY/POST | | [phone] | | | | | FOSSA/EAR,W/ | [...] | | | | | Procedures | [place], [place] | [facility] | | | | | [address] | [address] | [place], [place] | | | | | BENIGN | Phone: | [phone] | | | | | DISEASE WO | [phone] | Phone: | | | | | IN CT | Fax: | [phone] | | | | | SCAN,ORBIT/S | [phone] | Fax: | | | | | CORY/POST | | [phone] | | | | | FOSSA/EAR,W/ | | | | | | | [place] | | | +--------+--------+ + + + + Encounter Details +--------+ + + + + | Date | Type | Department | Care Team | Description | +--------+ + + + + | 08/14/ | Hospital | Diagnostic Imaging | | | | 2014 | Encounter | Services at [facility] | | | | | | [address] | | | | | | [place] Mailcode: | | | | | | [address] [facility] | | | | | | [place], [place] | | | | | | [address] | | | | | | [phone] | | | +--------+ + + + [...] [place] | | | | | | [address] | | | | | | [phone] | | | | | | | [...] [place] | | | | | | [address] | | | | | | [phone] | | | | | | | | +--------+ + + + + | 06/27/ | Office | Physical Therapy | Edith Gil, | | | 2018 | Visit | | PT,DPT [address] | | | | | | [address] | | | | | | [place], [place] | | | | | | [address] | | +--------+ + + + + | 06/27/ | Office | Surgery | Jen Coronel, | | | 2018 | Visit | | AGACNP [address] | | | | | | [place], [place] | | | | | | [address] | | | | | | [phone] | | | | | | | | +--------+ + + + + | 06/27/ | Office | Nutrition | Eli Rodas, | | | 2018 | Visit | | RD [address] | | | | | | [address] | | | | | | [place], [place] | | | | | | [address] | | +--------+ + + + + [...]
--- OUTSIDE RECORDS SUMMARY | ~2019-06-08 | XMS | Encounter Summary ---
Demographics + + + | Address | [address] | | | [place] [address] | + + + | Home Phone [...] Team Providers + +------+ + | Care Hydraulics Engineer Name | Role | Phone | [...] | on | Otology Services at | [facility] | | | | | PPV [address] [facility] | [place], [place] | | | | | [address] | [address] | | | | | Mailcode: PV01 | | | | | | [facility] | | | | | | [place], [place] | | | | | | [address] | | | | | | [phone] | | | +--------+ + + + [...] Rd | | | | | | [place], [place] | | | | | | [address] | | | | | | [phone] | | | | | | | [...] Rd | | | | | | [place], [place] | | | | | | [address] | | | | | | [phone] | | | | | | | | +--------+ + + + + | 06/27/ | Office | Physical Therapy | Edith Gil, | | | 2018 | Visit | | PT,DPT [address] | | | | | | [address] | | | | | | [place], [place] | | | | | | [address] | | +--------+ + + + + | 06/27/ | Office | Surgery | Jen Coronel, | | | 2018 | Visit | | AGACNP [address] | | | | | | [place], [place] | | | | | | [address] | | | | | | [phone] | | | | | | | | +--------+ + + + + | 06/27/ | Office | Nutrition | Eli Rodas, | | | 2018 | Visit | | RD [address] | | | | | | [address] | | | | | | [place], [place] | | | | | | [address] | | +--------+ + + + + documented as of this encounter Visit Diagnoses Not on filedocumented in this encounter"
--- OUTSIDE RECORDS SUMMARY | ~2019-06-08 | XMS | Encounter Summary ---
Demographics + + + | Address | [address] | | | [place] [address] | + + + | Home Phone [...] Team Providers + +------+ + | Care Escrow Manager Name | Role | Phone | [...] Rd | | | | | | [place], [place] | | | | | | [address] | | | | | | [phone] | | | | | | | [...] Rd | | | | | | [place], [place] | | | | | | [address] | | | | | | [phone] | | | | | | | | +--------+ + + + + | 06/27/ | Office | Physical Therapy | Edith Gil, | | | 2018 | Visit | | PT,DPT [address] | | | | | | [address] | | | | | | [place], [place] | | | | | | [address] | | +--------+ + + + + | 06/27/ | Office | Surgery | Jen Coronel, | | | 2018 | Visit | | AGACNP [address] | | | | | | [place], [place] | | | | | | [address] | | | | | | [phone] | | | | | | | | +--------+ + + + + | 06/27/ | Office | Nutrition | Eli Rodas, | | | 2019 | Visit | | RD [address] [facility] | | | | | | [address] | | | | | | [place] | | | | | | [address] | | +--------+ + + + + documented as of this encounter Visit Diagnoses Not on filedocumented in this encounter"
--- OUTSIDE RECORDS SUMMARY | ~2019-06-08 | XMS | Encounter Summary ---
Demographics + + + | Address | [address] | | | [place] [address] | + + + | Home Phone [...] Providers + +------+ + | Care Building Cleaner Name | Role | Phone | [...] + + | 05/08/ | Emergency | [facility] Emergency | Davis Cabrera MD | | | 2008 | | Department [address] | | | | [address] | [facility] | | | | | [facility] | [place], [place] | | | | | [place], [place] | [address] | | | | | [address] | [phone] | | | | | [phone] | | | +--------+ + + + [...] followed carefully by your caregiver or dormitory keeper. 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 You do not have pain relief from prescribed medications. Your condition is worsening or has changed from what originally brought you in. ExitCare Patient Information 2006 [employer]. documented in this encounter Medications at [address] [...] [address] | | | | | | [place], [place] | | | | | | [address] | | | | | | [phone] | | | | | | | [...] Rd | | | | | | [facility] [place] | | | | | | [address] | | | | | | [phone] | | | | | | | | +--------+ + + + + | 06/27/ | Office | Physical Therapy | Edith Gil, | | | 2018 | Visit | | PT,DPT [address] | | | | | | [address] | | | | | | [place] | | | | | | [address] | | +--------+ + + + + | 06/27/ | Office | Surgery | Jen Coronel, | | | 2018 | Visit | | AGACNP [address] | | | | | | [place] | | | | | | [address] | | | | | | [phone] | | | | | | | | +--------+ + + + + | 06/27/ | Office | Nutrition | Eli Rodas, | | | 2018 | Visit | | RD [address] | | | | | | [address] | | | | | | [place] | | | | | | [address] | | +--------+ + + + + documented as of this encounter Visit Diagnoses + + | Diagnosis | + + | Herpes Zoster Herpes zoster without mention of complication | + + documented in this encounter"
--- OUTSIDE RECORDS SUMMARY | ~2019-06-08 | XMS | Encounter Summary ---
Demographics + + + | Address | [address] | | | [place] [address] | + + + | Home Phone [...] Providers + +------+ + | Care Hand Candle Dipper Name | Role | Phone | + [...] | | | [address] | [place], [place] | | | | | Mailcode: PV01 | [address] | | | | | [facility] | [phone] | | | | | [place], [place] | | | | | | [address] | | | | | | [phone] | | | +--------+ + + + [...] | 2019 | Encounter | | [address] [facility] | | | | | | [address] | | | | | | [place], [place] | | | | | | [address] | | | | | | [phone] | | | | | | | [...] Rd | | | | | | [place], [place] | | | | | | [address] | | | | | | [phone] | | | | | | | | +--------+ + + + + | 06/27/ | Office | Physical Therapy | Edith Gil, | | | 2018 | Visit | | PT,DPT [address] | | | | | | [address] | | | | | | [place], [place] | | | | | | [address] | | +--------+ + + + + | 06/27/ | Office | Surgery | Jen Coronel, | | | 2018 | Visit | | AGACNP [address] | | | | | | [place], [place] | | | | | | [address] | | | | | | [phone] | | | | | | | | +--------+ + + + + | 06/27/ | Office | Nutrition | Eli Rodas, | | | 2019 | Visit | | RD [address] [facility] | | | | | | [address] | | | | | | [place] | | | | | | [address] | | +--------+ + + + + documented as of this encounter Visit Diagnoses Not on filedocumented in this encounter"
--- OUTSIDE RECORDS SUMMARY | ~2019-06-08 | XMS | Encounter Summary ---
Demographics + + + | Address | [address] | | | [place] [address] | + + + | Home Phone [...] Team Providers + +------+ + | Care Framer Name | Role | Phone | + [...] at | | | | | | [facility] | | | | | | [address] | | | | | | Mail Code: OC8PM | | | | | | [facility] | | | | | | and Healing, | | | | | | [address] | | | | | | [place], [place] | | | | | | [address] | | | | | | [phone] | | | +--------+ + + + [...] [place] | | | | | | [address] | | | | | | [phone] | | | | | | | [...] [place] | | | | | | [address] | | | | | | [phone] | | | | | | | | +--------+ + + + + | 06/27/ | Office | Physical Therapy | Edith Gil, | | | 2018 | Visit | | PT,DPT [address] | | | | | | [address] | | | | | | [place], [place] | | | | | | [address] | | +--------+ + + + + | 06/27/ | Office | Surgery | Jen Coronel, | | | 2018 | Visit | | AGACNP [address] | | | | | | [place], [place] | | | | | | [address] | | | | | | [phone] | | | | | | | | +--------+ + + + + | 06/27/ | Office | Nutrition | Eli Rodas, | | | 2018 | Visit | | RD [address] | | | | | | [address] | | | | | | [place], [place] | | | | | | [address] | | +--------+ + + + + documented as of this encounter Visit Diagnoses Not on filedocumented in this encounter"
--- OUTSIDE RECORDS SUMMARY | ~2019-06-08 | XMS | Encounter Summary ---
Demographics + + + | Address | [address] | | | [place] [address] | + + + | Home Phone [...] Providers + +------+ + | Care Superintendent Gas Distribution Name | Role | Phone | + [...] | | | | [place] Mailcode: | [place], [place] | | | | | [facility] | [address] | | | | | and Brigette, | [phone] | | | | | [facility] [address] | | | | | | [place], [place] | | | | | | [address] | | | | | | [phone] | | | +--------+ + + + [...] | | | | | | [place], [place] | | | | | | [address] | | | | | | [phone] | | | | | | | [...] Rd | | | | | | [place], [place] | | | | | | [address] | | | | | | [phone] | | | | | | | | +--------+ + + + + | 06/27/ | Office | Physical Therapy | Edith Gil, | | | 2018 | Visit | | PT,DPT [address] | | | | | | [address] | | | | | | [place], [place] | | | | | | [address] | | +--------+ + + + + | 06/27/ | Office | Surgery | Jen Coronel, | | | 2018 | Visit | | AGACNP [address] | | | | | | [place], [place] | | | | | | [address] | | | | | | [phone] | | | | | | | | +--------+ + + + + | 06/27/ | Office | Nutrition | Eli Rodas, | | | 2018 | Visit | | RD [address] [facility] | | | | | | [address] | | | | | | [place], [place] | | | | | | [address] | | +--------+ + + + + [...]
--- OUTSIDE RECORDS SUMMARY | ~2019-06-08 | XMS | Clinical Summary ---
Demographics + + + | Address | [address] | | | [place] [address] | + + + | Home Phone [...] Providers + +------+ + | Care Color Laboratory Technician Name | Role | Phone | + +------+ + | Gracie Lewis PA-C | PCP | | + +------+ + Source Comments WHITNEY is fully live on both [facility] Ambulatory and [facility] InPatient.[facility] Allergies + + + + + + [...] + + + + | 05/03/ | Intelligence Senior Sergeant | Surgery | Jen Coronel, | [address] | | | | | | [place], [place] | | | | | | [address] | | | | | | [phone] | | | | | | | [...] Rd | | | | | | [place], [place] | | | | | | [address] | | | | | | [phone] | | | | | | | | +--------+ + + + + | 06/27/ | Office | Physical Therapy | Edith Gil, | | | 2018 | Visit | | PT,DPT [address] | | | | | | [address] | | | | | | [place] | | | | | | [address] | | +--------+ + + + + | 06/27/ | Office | Surgery | Jen Coronel, | | | 2018 | Visit | | AGACNP [address] | | | | | | [place] | | | | | | [address] | | | | | | [phone] | | | | | | | | +--------+ + + + + | 06/27/ | Office | Nutrition | Eli Rodas, | | | 2018 | Visit | | RD [address] | | | | | | [address] | | | | | | [place] | | | | | | [address] | | +--------+ + + + + [...] | | | + +--------+ +--------+-------+---------+--------+ | MEDICAL ECONOMICS CONSULTANT MEDICAID | MEDICAL ECONOMICS CONSULTANT | xxxxxxxx | 08/08/19 | | | Medica | | | [place]AST[place] | | 18-Pre | | | id | | | [place] | | sent | | | | + +--------+ +--------+-------+---------+--------+ | [facility] | xxxxxxx | Effect | | | [...] + +--------+ +--------+ + + | Demian iNna | Person | Self | [birth year] | [address] | | | al/Fam | | 1969 | [address] | [place] [address] | | | neil | | | 3 (Home) | | + +--------+ +--------+ + + | Demian Nina | Agency | Self | [birth year] | [address] | | | | | 1970 | | [place] [address] | | | | | | 3 (Home) | | + +--------+ +--------+ + +
--- OUTSIDE RECORDS SUMMARY | ~2019-06-08 | XMS | Encounter Summary ---
Demographics + + + | Address | [address] | | | [place] [address] | + + + | Home Phone [...] Providers + +------+ + | Care Marble Setter Name | Role | Phone | + +------+ + | Gracie Lewis PA-C | PCP | | + +------+ + Encounter Details +--------+ + + + + | Date | Type | Department | Care Team | Description | +--------+ + + + + | 04/26/ | Documentati | Digestive Health | Clinic, Surgery | | | 2019 | on | [place] at [facility] [address] | | | | | | [address] | | | | | | Mailcode: Center | | | | | | for [facility] and | | | | | | Healing, [address] | | | | | | [facility] [place] | | | | | | [address] | | | | | | [phone] | | | +--------+ + + + [...] | | | | | | [place], [place] | | | | | | [address] | | | | | | [phone] | | | | | | | [...] Rd | | | | | | [place], [place] | | | | | | [address] | | | | | | [phone] | | | | | | | | +--------+ + + + + | 06/27/ | Office | Physical Therapy | Edith Gil, | | | 2018 | Visit | | PT,DPT [address] | | | | | | [address] | | | | | | [place], [place] | | | | | | [address] | | +--------+ + + + + | 06/27/ | Office | Surgery | Jen Coronel, | | | 2018 | Visit | | AGACNP [address] | | | | | | [place], [place] | | | | | | [address] | | | | | | [phone] | | | | | | | | +--------+ + + + + | 06/27/ | Office | Nutrition | Eli Rodas, | | | 2018 | Visit | | RD [address] | | | | | | [address] | | | | | | [place] | | | | | | [address] | | +--------+ + + + + documented as of this encounter Visit Diagnoses Not on filedocumented in this encounter"
--- OUTSIDE RECORDS SUMMARY | ~2019-06-08 | XMS | Encounter Summary ---
Demographics + + + | Address | [address] | | | [place] [address] | + + + | Home Phone [...] Providers + +------+ + | Care Community Educator Name | Role | Phone | [...] | | | specified as | | [place], [place] | | | | | acute or | | [address] | | | | | chronic | | Phone: | | | | | Conductive | | [phone] | | | | | hearing | | Fax: | | | | | loss, | | [phone] | | | | | unilateral | [...] | | | [address] | [place], [place] | Dx); Conductive | | | | Mailcode: PV01 | [address] | hearing loss in | | | | [facility] | [phone] | right ear; Dizziness | | | | [place], [place] | | | | | | [address] | | | | | | [phone] | | | +--------+---------+ + + + [...] me after testing. Windy Rodriguez MD PhD Wall Cleaner Otology, Neurotology & Skull Base Surgery documented in this encounter Plan of Treatment +--------+ + + + + | Date | Type | Specialty | Care Team | Description | +--------+ + + + + | 06/12/ | Hospital | | Ehsan Cotto MD | | | 2018 | Encounter | | [address] [facility] | | | | | | [facility] | | | | | | [place], [place] | | | | | | [address] | | | | | | [phone] | | | | | | | [...] Rd | | | | | | [place], [place] | | | | | | [address] | | | | | | [phone] | | | | | | | | +--------+ + + + + | 06/27/ | Office | Physical Therapy | Edith Gil, | | | 2018 | Visit | | PT,DPT [address] | | | | | | [address] | | | | | | [place], [place] | | | | | | [address] | | +--------+ + + + + | 06/27/ | Office | Surgery | Jen Coronel, | | | 2018 | Visit | | AGACNP [address] | | | | | | [place], [place] | | | | | | [address] | | | | | | [phone] | | | | | | | | +--------+ + + + + | 06/27/ | Office | Nutrition | Jose LuisEli sam, | | | 2019 | Visit | | RD [address] [facility] | | | | | | [address] | | | | | | [place] | | | | | | [address] | | +--------+ + + + + [...]
--- OUTSIDE RECORDS SUMMARY | 2019-06-08 18:42 | XMS ---
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 Care History Medical/Surgical 07/10/2018 [facility] - Patient is currently established with [facility]. If patient is seen in the ED during business hours. Please contact CHWs at [facility]. Care Recommendation: This patient has had 5 or more Emergency Department visits in the last 12 months.\T\nbsp; Patient requires education on the scope and purpose of the ED as an acute care provider not a Primary Care Provider and should not be utilized for chronic conditions.\T\nbsp; These are guidelines and the provider should exercise clinical judgment when providing care. 05/16/2018 [facility] - PATIENT HAS A FOLLOW UP APT WITH DR ABRAMS ON 05/23. - [facility] NOT[facility] FROM 05/15/18 CLINIC VISIT LISTED UNDER NOTES ON CLAUDIA. 04/18/2018 [facility] - Patient is currently working with Claudette TOBARornamental metal worker helper from [facility]- Contact ) if patient is seen in ED. - Claudette has educated patient on diabetic education, but patient is not willing to follow up with further education. - Patient request pain medications at every PCP visit. - Patient has declined mental health evaluation from [facility]. Care Recommendation: - USE EXTREME CAUTION IN GIVING NARCOTICS TO THIS PATIENT. - Avoid Discharge Narcotic prescriptions if at all possible. Please use clinical judgement. E.D. VISIT COUNT (12 MO.) 5 P[facility] [place] TOTAL 5 NOTE: Visits indicate total known visits. ED/UCC VISIT TRACKING (12 MO.) 06/08/2019 18:40 [place] TYPE: Emergency COMPLAINT: - CHEST PAIN 03/14/2019 13:04 [place] TYPE: Emergency COMPLAINT: - ABD PAIN DIAGNOSES: - MCFP (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 - Unspecified asthma, uncomplicated - Allergy status to narcotic agent status - Essential (primary) hypertension - Allergy status to oth drug/meds/biol subst status - Latex allergy status - Other chest pain - 1 Type 2 diabetes mellitus without complications - Right upper quadrant pain - Personal history of nicotine dependence - Other long term care social worker (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 01/18/2019 16:29 [place] TYPE: Emergency COMPLAINT: - SOB/PAIN RIGHT ARM DIAGNOSES: - Cramp and spasm - Unspecified asthma, uncomplicated - Allergy status to narcotic agent status - Acquired absence of other specified parts of digestive tract - Essential (primary) hypertension - Allergy status to anesthetic agent status - Radiographic dye allergy status - MCFP (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 - Personal history of nicotine dependence - 1 Type 2 diabetes mellitus without complications - Latex allergy status - Other chest pain - Other long term care social worker (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 08/10/2018 21:03 [place] TYPE: Emergency COMPLAINT: - ABD PAIN DIAGNOSES: - Other long term care social worker (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 - Unspecified abdominal pain - Left lower quadrant pain - 1 Type 2 diabetes mellitus without complications - [...] DIAGNOSES: - Unspecified asthma, uncomplicated - Other long term care social worker (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 - Radiographic dye allergy status - 1 Type 2 diabetes mellitus with diabetic polyneuropathy - Allergy status to anesthetic agent status - Other disturbances of skin sensation INPATIENT VISIT TRACKING (12 MO.) No inpatient visits to display in this time frame [email or web address]
--- NOTE | 2019-06-09 06:18 | EKG ---
[facility] [address] [place], [place] [address] Signed Normal sinus rhythm Normal ECG When compared with ECG of 18-JAN-2019 16:37, No significant change was found Confirmed by JOSSIE MCLEAN MD ([id number]) on 06/09/2019 6:17:53 AM Electronically Signed By: JOSSIE MCLEAN MD 06/09/19 0618 PATIENT NAME: ANA MARIA TURCIOS Electrocardiogram DATE OF : 72 PHYSICIAN: JOSSIE MCLEAN MD REPORT #: [id number] REPORT IS CONFIDENTIAL AND NOT TO BE RELEASED WITHOUT AUTHORIZATION
== END ==
LOC: ED 18:39
DX: R07.9 Chest pain, unspecified (principal); I10 Essential (primary) hypertension; J45.909 Unspecified asthma, uncomplicated; E11.9 Type 2 diabetes mellitus without complications; Z88.8 Allergy status to other drugs, medicaments and biological substances; Z88.5 Allergy status to narcotic agent; Z91.041 Radiographic dye allergy status; Z91.040 Latex allergy status; Z79.899 Other long term (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; Z79.4 Long term (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
CPT/HCPCS: 71045; 80053; 83690; 83735; 84484; 85025; 93005; 93010; 99285-25; J7030

== ENCOUNTER 2019-08-08 16:37 | Emergency (ER) | payer OTHER ==
[~2019-08-08] VITALS: Ht 165.1 cm; Wt 111.1 kg
--- OUTSIDE RECORDS SUMMARY | ~2019-08-08 | XMS | Encounter Summary ---
Demographics + + + | Address | [address] | | | [place] [address] | + + + | Home Phone | | + + + | Preferred Language | Unknown | + + + | Marital Status | Single | + + + | Denominational Affiliation | CAT | + + + | Race | Unknown | + + + | Ethnic Group | Not or | + + + Author + + + | Author | [facility] | + + + | Organization | [facility] | + + + | Address | Unknown | + + + | Phone | Unavailable | + + + Support + + +---------+ + | Name | Relationship | Address | Phone | + + +---------+ + | Alisia Nina | ECON | Unknown | | + + +---------+ + Care Team Providers + +------+ + | Care Volunteer Fire Fighter Name | Role | Phone | + +------+ + | Quentin Manriquez | PCP | | + +------+ + Reason for Referral Diagnostic Testing (Routine) +--------+--------+ + + + + | Status | Reason | Specialty | Diagnoses / | Referred By | Referred To | | | | | Procedures | Contact | Contact | +--------+--------+ + + + + | Closed | | Radiology | Diagnoses | Guillen | Rad Ct Scan | | | | | Conductive | Windy Armas | [address] | | | | | hearing loss | [address] | | | | | in right | [address] | [address] | | | | | ear | [address] | Mailcode: | | | | | Dizziness | Rd | [address] [facility] | | | | | Procedures | [place], [place] | [facility] | | | | | [place] | [address] | [place], [place] | | | | | BENIGN | Phone: | [phone] | | | | | DISEASE WO | [phone] | Phone: | | | | | [place] CT | Fax: | [phone] | | | | | SCAN,ORBIT/S | [phone] | Fax: | | | | | CORY/POST | | [phone] | | | | | FOSSA/EAR,W/ | | | | | | | O | | | +--------+--------+ + + + + Reason for Visit + + + | Reason | Comments | + + + | Ear problem | here for ear check | + + + Consultation (Routine) +--------+--------+ + + + + | Status | Reason | Specialty | Diagnoses / | Referred By | Referred To | | | | | Procedures | Contact | Contact | +--------+--------+ + + + + | Closed | | Otolaryngolog | Diagnoses | [facility] | Ent Otology | | | | y | Dysfunction | Epic Dept | [address] | | | | | of | | [address] | | | | | eustachian | | Loop | | | | | tube | | Mailcode: | | | | | Nonsuppurati | | [address] | | | | | ve otitis | | Physician's | | | | | media, not | | Pavilion | | | | | specified as | | [place], [place] | | | | | acute or | | [address] | | | | | chronic | | Phone: | | | | | Conductive | | [phone] | | | | | hearing | | Fax: | | | | | loss, | | [phone] | | | | | unilateral | | | | | | | Dizziness | | | | | | | and | | | | | | | giddiness | | | | | | | Nausea alone | | | | | | | | | | | | | | Procedures | | | | | | | CONSULT TO | | | | | | | ENT OTOLOGY | | | +--------+--------+ + + + + Encounter Details +--------+---------+ + + + | Date | Type | Department | Care Team | Description | +--------+---------+ + + + | 08/14/ | Office | Otolaryngology | Windy Mclean | Conductive hearing | | 2015 | Visit | Otology Services at | [facility] [address] | loss in right ear | | | | [address] | [address] | (Primary Dx); | | | | [address] | [place], [place] | Dizziness | | | | Mailcode: PV01 | [address] | | | | | [facility] | [phone] | | | | | [place], [place] | | | | | | [address] | | | | | | [phone] | | | +--------+---------+ + + + Social History + +-------+ [...] on file | | + + + + + + + | Job Start Date | Occupation | Industry | + + + + | Not on file | Not on file | Not on file | + + + + + + + + | Travel History | Travel Start | Travel End | + + + + + + | No recent travel history available. | + + documented as of this encounter Progress Notes Windy Mclean MD - 08/14/2014 11:28 AM PSTDate: 08/14/2014 Demian Nina follows up 6 months s/p right tympanostomy tube for otitis media with e ffusion. She complains of right ear discomfort. She denies otorrhea. She still complains of episodes of dizziness. From initial visit on 04/01/2014: Demian Nina is a 44 y.o. female who complains of " vertigo since childhood". By vertigo she means episodes of lightheadedness, disequilibrium o r imbalance lasting 20 minutes or more. These occur practically every morning after she gets up and are associated with nausea, headache and sensitivity to light. She feels that her "v ertigo" is getting worse over time. She denies spinning sensation. She denies head injury, l oud noise exposure or barotrauma. She checks off every ear symptoms on our intake forms, inc luding otalgia, otorrhea, hearing loss, tinnitus, ear fullness, autophony to voice, autophon y to breathing, dizziness with loud noise, dizziness with ear popping. In addition, she also complains of "vision problems" and "sinus symptoms". She has history of diabetes and migrai ne. She denies history of ear infection or ear surgery. Alert, oriented, with fluent speech An otomicroscope is used for exam and cleaning of both ears. AD: Ear canal patent. TM with Prussak's space retraction and anterosuperior quadrant perfor ation. Tympanostomy tube had extruded and is removed from the ear canal. There is no inflamm ation or effusion. : Ear canal patent. TM intact with normal landmarks. Middle ear is well-aerated. Facial nerve normal both sides No nystagmus. Normal gait Mood, affect normal Audiogram 08/14/2014 shows conductive hearing loss improved in right ear, unchanged in left e ar. CT temporal bone 08/14/2014: Normal on both sides. No cholesteatoma or superior semicircular canal dehiscence. A/P: Demian Nina has chronic dizziness of unclear etiology and abnormal retraction of right tympanic membrane. I order temporal bone CT to rule out cholesteatoma and superior semicircular canal dehiscence. Normal CT results indicate that her bilateral mild conductive hearing loss might be due to eustachian tube dysfunction and residual perforation in right ear from previous tympanostomy tube placement. She will follow up with me in 3 months to mo nitor healing of right tympanic membrane. We can consider vestibular and balance testing at that time if she is still symptomatic. Duration of visit: I spent at least 25 min with the patient, with most of the time devoted to counseling and coordinating of care. Windy Rodriguez MD PhD Solar Installation Supervisor Otology, Neurotology & Skull Base Surgery documented in this encounter Plan of Treatment Not on filedocumented as of this encounter Results CT [place] BENIGN DISEASE WO (08/14/2014 1:51 PM PST) + + + + + + | Component | Value | Ref Range | Performed | Pathologist | | | | | At | Signature | + + + + + + | CT [place] | Temporal bone CT without | | | | | BENIGN | contrast 08/14/2014 | | | | | DISEASE WO | Medical history: | | | | | | Right-sided conductive | | | | | | hearing loss and | | | | | | dizziness. Technique: | | | | | | Axial sub mm thick | | | | | | images were obtained | | | | | | through the temporal | | | | | | bonesbilaterally without | | | | | | IV contrast. Images | | | | | | were reconstructed at 1 | | | | | | mm axial andcoronal | | | | | | increments and | | | | | | multiplanar reformations | | | | | | including poschl and | | | | | | stenverviews and were | | | | | | reviewed in bone and | | | | | | soft tissue window. | | | | | | Findings: There is | | | | | | patchy mucosal | | | | | | thickening with fluid | | | | | | and bubbles in some | | | | | | ofthe ethmoid air cells | | | | | | and left sphenoid sinus | | | | | | that could represent | | | | | | acutesinusitis in the | | | | | | proper clinical context. | | | | | | The visualized soft | | | | | | tissue structuresare | | | | | | within normal limits. | | | | | | Right ear: External | | | | | | auditory canal appears | | | | | | normal in morphology. | | | | | | The tympaniccavity and | | | | | | mastoids are normally | | | | | | developed and appear | | | | | | well aerated. There | | | | | | isnormal appearance of | | | | | | the otic capsule and | | | | | | normal density | | | | | | throughout. Theossicles | | | | | | demonstrate normal | | | | | | morphology, without | | | | | | erosion. The cochlea | | | | | | andsemicircular canals | | | | | | show normal morphology, | | | | | | without evidence for | | | | | | focaldehiscence. There | | | | | | is normal size and | | | | | | shape of the internal | | | | | | auditory canal.The | | | | | | facial nerve course is | | | | | | normal. Left ear: | | | | | | External auditory canal | | | | | | appears normal in | | | | | | morphology. The | | | | | | tympaniccavity and | | | | | | mastoids are normally | | | | | | developed and appear | | | | | | well aerated. There | | | | | | isnormal appearance of | | | | | | the otic capsule and | | | | | | normal density | | | | | | throughout. Theossicles | | | | | | demonstrate normal | | | | | | morphology, without | | | | | | erosion. The cochlea | | | | | | andsemicircular canals | | | | | | show normal morphology, | | | | | | without evidence for | | | | | | focaldehiscence. There | | | | | | is normal size and | | | | | | shape of the internal | | | | | | auditory canal.The | | | | | | facial nerve course is | | | | | | normal. Impression: | | | | | | Normal temporal bone CT. | | | | | | No findings to suggest | | | | | | semicircular | | | | | | canaldehiscence. | | | | | | Attending Radiologists: | | | | | | GIORGIO OLIVIER, | | | | | | MDAuthor: GIORGIO | | | | | | MD SOY I have | | | | | | personally viewed this | | | | | | procedure/exam, reviewed | | | | | | this report, and | | | | | | madechanges to it where | | | | | | appropriate. | | | | | | Final/Electronically | | | | | | signed / GIORGIO | | | | | | SOY 08/14/2014 | | | | | | 15:52 PM | | | | + + + + + + + + | Specimen | + + | | + + + +---------+ + + | Performing | Address | City/State/Zipcode | Phone Number | | Organization | | | | + +---------+ + + | [facility] | | | | | RADIOLOGY | | | | + +---------+ + + documented in this encounter Visit Diagnoses + + | Diagnosis | + + | Conductive hearing loss in right ear - Primary Conductive hearing loss, unilateral | + + | Dizziness Dizziness and giddiness | + + documented in this encounter
--- OUTSIDE RECORDS SUMMARY | ~2019-08-08 | XMS | Encounter Summary ---
Demographics + + + | Address | [address] | | | [place] [address] | + + + | Home Phone | | + + + | Preferred Language | Unknown | + + + | Marital Status | Single | + + + | Oriental Orthodox Affiliation | 1041 | + + + | Race | Unknown | + + + | Ethnic Group | Unknown | + + + Author + + + | Author | [facility] | | | and [place] | + + + | Organization | [facility] | | | and [place] | + + + | Address | Unknown | + + + | Phone | Unavailable | + + + Support + + + + + | Name | Relationship | Address | Phone | + + + + + | Uche Nina | ECON | [address] | | | | | [place] | | | | | [address] | | + + + + + | Pratibha Hester | ECON | Unknown | + | + + + + + | Demian Powell | ECON | Unknown | + | + + + + + Care Team Providers + +------+ + | Care Manager Concrete Name | Role | Phone | + +------+ + | Quentin Manriquez PA-C | PCP | | + +------+ + Reason for Visit +--------+ + | Reason | Comments | +--------+ + | Other | | +--------+ + Encounter Details +--------+ + + + + | Date | Type | Department | Care Team | Description | +--------+ + + + + | 01/06/ | Telephone | [facility] | Sascha Mir, | Other | | 2014 | | [address]UR[address] | DO [address] | | | | | [facility] [facility] | [address] [place], [place] | | | | | [place], [place] | [id number] | | | | | [address] | | | | | | [phone] | | | +--------+ + + + [...] as of this encounter Plan of Treatment +--------+---------+ + + + | Date | Type | Specialty | Care Team | Description | +--------+---------+ + + + | 09/25/ | Office | Cardiology | Rudy Osullivan, | | | 2019 | Visit | | MD [address] | | | | | | [place] [address], | | | | | | [place] [address] | | | | | | [phone] | | | | | | | | +--------+---------+ + + + documented as of this encounter Visit Diagnoses Not on filedocumented in this encounter"
--- OUTSIDE RECORDS SUMMARY | ~2019-08-08 | XMS | Encounter Summary ---
Demographics + + + | Address | [address] | | | [place] [address] | + + + | Home Phone | | + + + | Preferred Language | Unknown | + + + | Marital Status | Single | + + + | Hinduism Affiliation | 1041 | + + + | Race | Unknown | + + + | Ethnic Group | Unknown | + + + Author + + + | Author | [facility] | | | and [place] | + + + | Organization | [facility] | | | and [place] | [...] [place] | | | | | [address] | | + + + + + | Pratibha Hester | ECON | Unknown | + | + + + + + | Demian Powell | ECON | Unknown | + | + + + + + Care Team Providers + +------+ + | Care Assembler Erector Name | Role | Phone | + +------+ + | Quentin Manriquez PA-C | PCP | | + +------+ + Reason for Visit +--------+ + | Reason | Comments | +--------+ + | Other | Medication request | +--------+ + Encounter Details +--------+ + + + + | Date | Type | Department | Care Team | Description | +--------+ + + + + | 12/23/ | Telephone | [facility] | Sascha Mir, | Other (Medication | | 2014 | | [address]UR[address] | DO [address] | request) | | | | [address] [facility] | [address] [place], [place] | | | | | [place], [place] | [id number] | | | | | [address] | | | | | | [phone] | | | +--------+ + + + [...] | | | | | | [place] [address] | | | | | | [phone] | | | | | | | | +--------+---------+ + + + documented as of this encounter Visit Diagnoses Not on filedocumented in this encounter"
--- OUTSIDE RECORDS SUMMARY | ~2019-08-08 | XMS | Encounter Summary ---
Demographics + + + | Address | [address] | | | [place] [address] | + + + | Home Phone | | + + + | Preferred Language | Unknown | + + + | Marital Status | Single | + + + | Jehovah'S Witness Affiliation | CAT | + + + | Race | Unknown | + + + | Ethnic Group | Not or | + + + Author + + + | Author | [facility] | + + + | Organization | [facility] | + + + | Address | Unknown | + + + | Phone | Unavailable | + + + Support + + +---------+ + | Name | Relationship | Address | Phone | + + +---------+ + | Alisia Nina | ECON | Unknown | | + + +---------+ + Care Team Providers + +------+ + | Care Rn Maternal Child Name | Role | Phone | + +------+ + | Gracie Lewis PA-C | PCP | | + +------+ + Encounter Details +--------+ + + + + | Date | Type | Department | Care Team | Description | +--------+ + + + + | 04/26/ | Documentati | [facility] | Clinic, Surgery | | | 2019 | on | [place] [facility] [address] | | | | | | [address] | | | | | | Mailcode: Center | | | | | | for Health and | | | | | | Healing, [address] | | | | | | [facility] [place] | | | | | | [address] | | | | | | [phone] | | | +--------+ + + + [...]
--- OUTSIDE RECORDS SUMMARY | ~2019-08-08 | XMS | Encounter Summary ---
Demographics + + + | Address | [address] | | | [place] [address] | + + + | Home Phone | | + + + | Preferred Language | Unknown | + + + | Marital Status | Single | + + + | Mosque Affiliation | 1041 | + + + | Race | Unknown | + + + | Ethnic Group | Unknown | + + + Author + + + | Author | [facility] | | | and [place] | + + + | Organization | [facility] | | | and [place] | + + + | Address | Unknown | + + + | Phone | Unavailable | + + + Support + + + + + | Name | Relationship | Address | Phone | + + + + + | Uche Nina | ECON | [address] | | | | | [place], [place] | | | | | [address] | | + + + + + | Pratibha Hester | ECON | Unknown | + | + + + + + | Demian Powell | ECON | Unknown | + | + + + + + Care Team Providers + +------+ + | Care Assistant Plant Control Operator Name | Role | Phone | + +------+ + | Jannette Boyle PA-C | PCP | | + +------+ + Encounter Details +--------+ + + + + | Date | Type | Department | Care Team | Description | +--------+ + + + + | 09/26/ | Telephone | [facility] | Denilson Jorge | | | 2012 | | NEUROSURG[address] | [address] | | | | | [address] | [place] | | | | | [place] | [address] | | | | | [address] | [phone] | | | | | [phone] | | | +--------+ + + + + Social History + + + +--------+ + | Tobacco Use | Types | Packs/Day | Years | Date | | | | | Used | | + + + +--------+ + | Former Smoker | Cigarettes | | | Quit: 04/18/2010 | + + + +--------+ + + +---+---+---+ | Smokeless Tobacco: | | | | | Never Used | | | | + +---+---+---+ + + +---------+ + | Alcohol Use | Drinks/Week | oz/Week | Comments | + + +---------+ + | Yes | | | [place] | + + +---------+ + + + [...] | | | | | | [place] [address] | | | | | | [phone] | | | | | | | | +--------+---------+ + + + documented as of this encounter Visit Diagnoses Not on filedocumented in this encounter"
--- OUTSIDE RECORDS SUMMARY | ~2019-08-08 | XMS | Encounter Summary ---
Demographics + + + | Address | [address] | | | [place] [address] | + + + | Home Phone | | + + + | Preferred Language | Unknown | + + + | Marital Status | Single | + + + | Sabianist Affiliation | 1041 | + + + | Race | Unknown | + + + | Ethnic Group | Unknown | + + + Author + + + | Author | [facility] | | | and [place] | + + + | Organization | [facility] | | | and [place] | + + + | Address | Unknown | + + + | Phone | Unavailable | + + + Support + + + + + | Name | Relationship | Address | Phone | + + + + + | Uche Nina | ECON | [address] | | | | | [place], [place] | | | | | [address] | | + + + + + | Pratibha Hester | ECON | Unknown | + | + + + + + | Demian Powell | ECON | Unknown | + | + + + + + Care Team Providers + +------+ + | Care Blue Prints Trimmer Name | Role | Phone | + +------+ + | Jannette Boyle PA-C | PCP | | + +------+ + Reason for Visit +--------+ + | Reason | Comments | +--------+ + | Other | | +--------+ + Encounter Details +--------+ + + + + | Date | Type | Department | Care Team | Description | +--------+ + + + + | 05/19/ | Telephone | [facility] | Sascha Mir, | Other | | 2014 | | [address]UR[address]UR[address] | DO [address] | | | | | [facility] | [address] [place], [place] | | | | | [place], [place] | [address] | | | | | [address] | | | | | | [phone] | | | +--------+ + + + [...] | | | | | | [place] [address] | | | | | | [phone] | | | | | | | | +--------+---------+ + + + documented as of this encounter Visit Diagnoses Not on filedocumented in this encounter"
--- OUTSIDE RECORDS SUMMARY | ~2019-08-08 | XMS | Encounter Summary ---
Demographics + + + | Address | [address] | | | [place] [address] | + + + | Home Phone | | + + + | Preferred Language | Unknown | + + + | Marital Status | Single | + + + | Denominational Affiliation | 1041 | + + + | Race | Unknown | + + + | Ethnic Group | Unknown | + + + Author + + + | Author | [facility] | | | and [place] | + + + | Organization | [facility] | | | and [place] | + + + | Address | Unknown | + + + | Phone | Unavailable | + + + Support + + + + + | Name | Relationship | Address | Phone | + + + + + | Uche Nina | ECON | [address] | | | | | [place] | | | | | [address] | | + + + + + | Pratibha Hester | ECON | Unknown | + | + + + + + | Demian Powell | ECON | Unknown | + | + + + + + Care Team Providers + +------+ + | Care Denture Technician Name | Role | Phone | + +------+ + | Quentin Manriquez PA-C | PCP | | + +------+ + Reason for Visit + + + | Reason | Comments | + + + | Medication Refill | | + + + Encounter Details +--------+--------+ + + + | Date | Type | Department | Care Team | Description | +--------+--------+ + + + | 05/14/ | Refill | [facility] | Sascha Mir, | Medication Refill | | 2014 | | [address] | DO [address] | | | | | [address] | [address] [place], [place] | | | | | [place] | [address] | | | | | [address] | | | | | | [phone] | | | +--------+--------+ + + + [...] | | | | | | [place] [address] | | | | | | [phone] | | | | | | | | +--------+---------+ + + + documented as of this encounter Visit Diagnoses Not on filedocumented in this encounter"
--- OUTSIDE RECORDS SUMMARY | ~2019-08-08 | XMS | Encounter Summary ---
Demographics + + + | Address | [address] | | | [place] [address] | + + + | Home Phone | | + + + | Preferred Language | Unknown | + + + | Marital Status | Single | + + + | Buddhist Affiliation | 1041 | + + + | Race | Unknown | + + + | Ethnic Group | Unknown | + + + Author + + + | Author | [facility] | | | and [place] | + + + | Organization | [facility] | | | and [place] | + + + | Address | Unknown | + + + | Phone | Unavailable | + + + Support + + + + + | Name | Relationship | Address | Phone | + + + + + | Uche Nina | ECON | [address] | | | | | [place], [place] | | | | | [address] | | + + + + + | Pratibha Hester | ECON | Unknown | + | + + + + + | Demian Powell | ECON | Unknown | + | + + + + + Care Team Providers + +------+ + | Care Extension Service Specialist Name | Role | Phone | + +------+ + | Quentin Manriquez PA-C | PCP | | + +------+ + Encounter Details +--------+ + + + + | Date | Type | Department | Care Team | Description | +--------+ + + + + | 09/19/ | Abstract | [facility] [place] | Sascha Mir, | | | 2014 | | NEUROSUR[address] | DO [address] | | | | | [address] | [address] [place], [place] | | | | | [place], [place] | [id number] | | | | | [address] | | | | | | [phone] | | | +--------+ + + + [...] | | 2019 | Visit | | [address] | | | | | | [place], | | | | | | [place] [address] | | | | | | [phone] | | | | | | | | +--------+---------+ + + + documented as of this encounter Visit Diagnoses Not on filedocumented in this encounter"
--- OUTSIDE RECORDS SUMMARY | ~2019-08-08 | XMS | Encounter Summary ---
Demographics + + + | Address | [address] | | | [place] [address] | + + + | Home Phone | | + + + | Preferred Language | Unknown | + + + | Marital Status | Single | + + + | Rastafarian Affiliation | 1041 | + + + | Race | Unknown | + + + | Ethnic Group | Unknown | + + + Author + + + | Author | [facility] | | | and [place] | + + + | Organization | [facility] | | | and [place] | [...] [place] | | | | | [address] | | + + + + + | Pratibha Hester | ECON | Unknown | + | + + + + + | Demian Powell | ECON | Unknown | + | + + + + + Care Team Providers + +------+ + | Care Poultry Process Worker Name | Role | Phone | + +------+ + | Quentin Manriquez PA-C | PCP | | + +------+ + Reason for Visit +--------+ + | Reason | Comments | +--------+ + | Other | MRI | +--------+ + Encounter Details +--------+ + + + + | Date | Type | Department | Care Team | Description | +--------+ + + + + | 05/06/ | Telephone | [facility] | Sascha Mir, | Other (MRI ) | | 2014 | | NEUR[address]UR[address] | DO [address] | | | | | [address] | [address] [place], [place] | | | | | [place], [place] | [id number] | | | | | [address] | | | | | | [phone] | | | +--------+ + + + [...] | | | | | | [place] [address] | | | | | | [phone] | | | | | | | | +--------+---------+ + + + documented as of this encounter Visit Diagnoses Not on filedocumented in this encounter"
--- OUTSIDE RECORDS SUMMARY | ~2019-08-08 | XMS | Encounter Summary ---
Demographics + + + | Address | [address] | | | [place] [address] | + + + | Home Phone | | + + + | Preferred Language | Unknown | + + + | Marital Status | Single | + + + | Sikhism Affiliation | 1041 | + + + | Race | Unknown | + + + | Ethnic Group | Unknown | + + + Author + + + | Author | [facility] | | | and [place] | + + + | Organization | [facility] | | | and [place] [...] [place], [place] | | | | | [address] | | + + + + + | Pratibha Hester | ECON | Unknown | + | + + + + + | Demian Powell | ECON | Unknown | + | + + + + + Care Team Providers + +------+ + | Care Learning And Development Coordinator Name | Role | Phone | + +------+ + | Jannette Boyle PA-C | PCP | | + +------+ + Encounter Details +--------+ + + + + | Date | Type | Department | Care Team | Description | +--------+ + + + + | 02/15/ | Abstract | [facility] | Albaro Bojorquez | | | 2016 | | NEUROSURGERY [address] | HUMA [address]ling [address] | | | | | [address] | [address] | | | | | [place] | [place] | | | | | [address] | [address] | | | | | [phone] | | | +--------+ + + + [...] +---------+ + | Yes | | | Rare | + + +---------+ + + + [...] | | | | | | [place] [address] | | | | | | [phone] | | | | | | | | +--------+---------+ + + + documented as of this encounter Visit Diagnoses Not on filedocumented in this encounter"
--- OUTSIDE RECORDS SUMMARY | ~2019-08-08 | XMS | Encounter Summary ---
Demographics + + + | Address | [address] | | | [place] [address] | + + + | Home Phone | | + + + | Preferred Language | Unknown | + + + | Marital Status | Single | + + + | Jain Affiliation | 1041 | + + + | Race | Unknown | + + + | Ethnic Group | Unknown | + + + Author + + + | Author | [facility] | | | and [place] | + + + | Organization | [facility] | | | and [place] [...] [place], [place] | | | | | [address] | | + + + + + | Pratibha Hester | ECON | Unknown | + | + + + + + | Demian Powell | ECON | Unknown | + | + + + + + Care Team Providers + +------+ + | Care Log Stacker Operator Name | Role | Phone | + +------+ + | Quentin Manriquez PA-C | PCP | | + +------+ + Encounter Details +--------+ + + + + | Date | Type | Department | Care Team | Description | +--------+ + + + + | 12/05/ | Hospital | [facility] | Sascha Mir, | Bilateral lumbar | | 2015 | Encounter | MED CTR | DO [address] | radiculopathy; HIP | | | | [facility] | [address] [place], [place] | PAIN, LEFT, CHRONIC; | | | | [address] | [address] | Spondylolisthesis | | | | [place] [address] | | of lumbar region | | | | [phone] | | L5-S1; Pars defect | | | | | | of lumbar spine | | | | | | L5-S1; Degenerative | | | | | | disc disease, lumbar | | | | | | L4-5; Morbid | | | | | | obesity; | | | | | | Sacroiliitis; | | | | | | Trochanteric | | | | | | bursitis, | | | | | | unspecified | | | | | | laterality; Diabetes | | | | | | mellitus; Asthma, | | | | | | unspecified asthma | | | | | | severity, | | | | | | uncomplicated; | | | | | | Synovial cyst of | | | | | | lumbar facet joint; | | | | | | Foraminal stenosis | | | | | | of lumbosacral | | | | | | region; Facet | | | | | | arthropathy, | | | | | | lumbosacral | +--------+ + + + + Social [...] + + documented as of this encounter Medications at Time of Discharge [...] hours as | | | 09 | | | tablet | needed. | | | | | + + + +---------+ + + | oxyCODONE | Take 1 tablet by | | 0 | 05/08/20 | | | (ROXICODONE) 5 mg | mouth every 6 hours | | | 09 | | | tablet | as needed. | [...] + + + +---------+ + + | aspirin 81 mg EC | Take 81 mg by mouth | | 0 | | | | tablet | Daily. | | | | 5 | + + + +---------+ + + [...] + +---------+ + + | | Take 1 tablet by | | 0 | | | | HYDROcodone-acetamin | mouth every 6 hours | | | | 5 | | ophen (NORCO) 10-325 | as needed for Pain. | | | | | | mg per tablet | | | | | | + + + +---------+ + + | ibuprofen | Take 600 mg by mouth | | 0 | | | | (ADVIL,MOTRIN) 600 | every 8 hours as | | | | 5 | | MG tablet | needed for Pain. | | | | | + + [...] | | | | | | [place] [address] | | | | | | [phone] | | | | | | | | +--------+---------+ + + + documented as of this encounter Procedures + +--------+ + + + | Procedure Name | Priori | Date/Time | Associated Diagnosis | Comments | | | ty | | | | + +--------+ + + + | ECG 12 LEAD | Routin | 12/06/2014 | Bilateral lumbar | Results for this | | | e | 7:49 AM | radiculopathy HIP | procedure are in the | | | | PDT | PAIN, LEFT, CHRONIC | results section. | | | | | Spondylolisthesis | | | | | | of lumbar region | | | | | | L5-S1 Pars defect | | | | | | of lumbar spine | | | | | | L5-S1 Degenerative | | | | | | disc disease, lumbar | | | | | | L4-5 Morbid | | | | | | obesity | | | | | | Sacroiliitis | | | | | | Trochanteric | | | | | | bursitis, | | | | | | unspecified | | | | | | laterality Diabetes | | | | | | mellitus Asthma, | | | | | | unspecified asthma | | | | | | severity, | | | | | | uncomplicated | | | | | | Synovial cyst of | | | | | | lumbar facet joint | | | | | | Foraminal stenosis | | | | | | of lumbosacral | | | | | | region Facet | | | | | | arthropathy, | | | | | | lumbosacral | | + +--------+ + + + documented in this encounter Results ECG 12 lead (12/06/2014 7:49 AM PDT) + + + | Narrative | Performed At | + + + | Smith Toth MD 12/06/2014 7:49 Adult ECG Report | | | Name: Demian Nina Age: 44 y.o. Gender: female 12/05/14 | | | at 11:51 Narrative Interpretation: Normal sinus rhythm. Normal | | | axis. Normal intervals. | | + + + documented in this encounter Visit Diagnoses + + | Diagnosis | + + | Bilateral lumbar radiculopathy | + + | HIP PAIN, LEFT, CHRONIC Pain in joint, pelvic region and thigh | + + | Spondylolisthesis of lumbar region L5-S1 Acquired spondylolisthesis | + + | Pars defect of lumbar spine L5-S1 Acquired spondylolisthesis | + + | Degenerative disc disease, lumbar L4-5 Degeneration of lumbar or lumbosacral | | intervertebral disc | + + | Morbid obesity | + + | Sacroiliitis Sacroiliitis, not elsewhere classified | + + | Trochanteric bursitis, unspecified laterality | + + | Diabetes mellitus Type II or unspecified type diabetes mellitus without mention of | | complication, not stated as uncontrolled | + + | Asthma, unspecified asthma severity, uncomplicated | + + | Synovial cyst of lumbar facet joint Cyst of bone (localized), unspecified | + + | Foraminal stenosis of lumbosacral region Spinal stenosis, lumbar region, without | | neurogenic claudication | + + | Facet arthropathy, lumbosacral Lumbosacral spondylosis without myelopathy | + + documented in this encounter"
--- OUTSIDE RECORDS SUMMARY | ~2019-08-08 | XMS | Encounter Summary ---
Demographics + + + | Address | [address] | | | [place] [address] | + + + | Home Phone | | + + + | Preferred Language | Unknown | + + + | Marital Status | Single | + + + | Restoration Affiliation | 1041 | + + + | Race | Unknown | + + + | Ethnic Group | Unknown | + + + Author + + + | Author | [facility] | | | and [place] | + + + | Organization | [facility] | | | and [place] | [...] [place] | | | | | [address] | | + + + + + | Pratibha Hester | ECON | Unknown | + | + + + + + | Demian Powell | ECON | Unknown | + | + + + + + Care Team Providers + +------+ + | Care Caramel Cutter Machine Name | Role | Phone | + +------+ + | Quentin Manriquez PA-C | PCP | | + +------+ + Reason for Visit +--------+ + | Reason | Comments | +--------+ + | Other | | +--------+ + Encounter Details +--------+ + + + + | Date | Type | Department | Care Team | Description | +--------+ + + + + | 06/09/ | Telephone | [facility] | Sascha Mir, | Other | | 2014 | | NE[address]UR[address] | DO [address] | | | | | [address] [facility] [address] | [address] [place], [place] | | | | | [place], [place] | [id number] | | | | | [address] | | | | | | [phone] | | | +--------+ + + + [...] | | | | | | [place] [address] | | | | | | [phone] | | | | | | | | +--------+---------+ + + + documented as of this encounter Visit Diagnoses Not on filedocumented in this encounter"
--- OUTSIDE RECORDS SUMMARY | ~2019-08-08 | XMS | Encounter Summary ---
Demographics + + + | Address | [address] | | | [place] [address] | + + + | Home Phone | | + + + | Preferred Language | Unknown | + + + | Marital Status | Single | + + + | Scientology Affiliation | 1041 | + + + | Race | Unknown | + + + | Ethnic Group | Unknown | + + + Author + + + | Author | [facility] | | | and [place] | + + + | Organization | [facility] | | | and [place] [...] [place] | | | | | [address] | | + + + + + | Pratibha Hester | ECON | Unknown | + | + + + + + | Demian Powell | ECON | Unknown | + | + + + + + Care Team Providers + +------+ + | Care Psychologist Experimental Name | Role | Phone | + [...] + + + | Closed | | Diagnostic | Diagnoses | [place], | [facility] | | | | Radiology | Status post | Sascha Armendariz DO | [place] | | | | | lumbar | [address] [place] [address] | | | | | spinal | [address] | [address] | | | | | fusion Back | [place], [place] | AVE | | | | | pain, | [address] | [place], [place] | | | | | unspecified | Phone: | [phone] | | | | | location | [phone] | Phone: | | | | | Radiculopath | Fax: | [phone] | | | | | y, | [phone] | Fax: | | | | | unspecified | | [phone] | | | | | spinal | | | | | | | region | | | | | | | Procedures | | | | | | | CT | | | | | | | Myelography | | | | | | | Lumbar Spine | | | +--------+--------+ + + + + Reason for Visit + + + | Reason | Comments | + + + | Imaging Only | | + + + Encounter Details +--------+ + + + + | Date | Type | Department | Care Team | Description | +--------+ + + + + | 04/03/ | Telephone | [facility] | Sascha Mir, | Imaging Only | | 2014 | | NEUR[address]UR[address]ERY [address] | DO [address] | | | | | [address] | [address] [place], [place] | | | | | [place], [place] | [id number] | | | | | [address] | | | | | | [phone] | | | +--------+ + + + [...] | | | | | | [place] [address] | | | | | | [phone] | | | | | | | | +--------+---------+ + + + + +---------+--------+ + + | Name | Type | Priori | Associated Diagnoses | Order Schedule | | | | ty | | | + +---------+--------+ + + | FL Injection for CT | Imaging | Routin | Status post lumbar | Expected: | | Myelogram | | e | spinal fusion Back | 04/04/2015, Expires: | | | | | pain | 04/04/2016 | | | | | Radiculopathy, | | | | | | unspecified spinal | | | | | | region | | + +---------+--------+ + + | CT Myelography | Imaging | Routin | Status post lumbar | Expected: | | Lumbar Spine | | e | spinal fusion Back | 04/04/2015, Expires: | | | | | pain | 04/04/2016 | | | | | Radiculopathy, | | | | | | unspecified spinal | | | | | | region | | + +---------+--------+ + + documented as of this encounter Visit Diagnoses + + | Diagnosis | + + | Status post lumbar spinal fusion - Primary Arthrodesis status | + + | Back pain, unspecified location | + + | Radiculopathy, unspecified spinal region | + + documented in this encounter"
--- OUTSIDE RECORDS SUMMARY | ~2019-08-08 | XMS | Encounter Summary ---
Demographics + + + | Address | [address] | | | [place] [address] | + + + | Home Phone | | + + + | Preferred Language | Unknown | + + + | Marital Status | Single | + + + | Scientology Affiliation | 1041 | + + + | Race | Unknown | + + + | Ethnic Group | Unknown | + + + Author + + + | Author | [facility] | | | and [place] | + + + | Organization | [facility] | | | and [place] [...] [place] | | | | | [address] | | + + + + + | Pratibha Hester | ECON | Unknown | + | + + + + + | Demian Powell | ECON | Unknown | + | + + + + + Care Team Providers + +------+ + | Care Agency Manager Name | Role | Phone | + [...] Closed | | Radiology | Diagnoses | [place], | [facility] | | | | | | Sascha Armendariz DO | [address] | | | | | Spondylolist | [address] | [place], | | | | | hesis of | [address] | [place] | | | | | lumbar | [place] | [address] | | | | | region S/P | [address] | Phone: | | | | | lumbar | Phone: | [phone] | | | | | fusion | [phone] | Fax: | | | | | Procedures | Fax: | [phone] | | | | | MRI Lumbar | [phone] | | | | | | Spine wo | | | | | | | Contrast | | | +--------+--------+ + + + + Diagnostic/Screening (Routine) +--------+--------+ + + + + | Status | Reason | Specialty | Diagnoses / | Referred By | Referred To | | | | | Procedures | Contact | Contact | +--------+--------+ + + + + | Closed | | Radiology | Diagnoses | [place], | [facility] | | | | | Cervical | Sascha Armendariz DO | [address] | | | | | radicular | [address] | [place], | | | | | pain | [address] | [place] | | | | | Procedures | [place] | [address] | | | | | MRI Cervical | [address] | Phone: | | | | | Spine wo | Phone: | [phone] | | | | | Contrast | [phone] | Fax: | | | | | | Fax: | [phone] | | | | | | [phone] | | +--------+--------+ + + + + Reason for Visit + + + | Reason | Comments | + + + | Follow-up | 3-month post-op | + + + Encounter Details +--------+---------+ + + + | Date | Type | Department | Care Team | Description | +--------+---------+ + + + | 03/17/ | Office | [facility] | Sascha Mir, | Spondylolisthesis of | | 2015 | Visit | NEUR[address]URGERY [address] | DO [address] | lumbar region | | | | [address] | [address] [place], [place] | (Primary Dx); S/P | | | | [place], [place] | [address] | lumbar fusion; | | | | [address] | | Cervical radicular | | | | [phone] | | pain | +--------+---------+ + + + Social [...] + + + | Blood Pressure | 124/80 | 03/17/2015 3:22 PM | | | | | PDT | | + + + + + | Pulse | 76 | 03/17/2015 3:22 PM | | | | | PDT | | + + + + + | Temperature | - | - | | + + + + + | Respiratory Rate | 20 | 03/17/2015 3:22 PM | | | | | PDT | | + + + + + | Oxygen Saturation | - | - | | + + + + + | Inhaled Oxygen | - | - | | | Concentration | | | | + + + + + | Weight | 121.1 kg (267 lb) | 03/17/2015 3:22 PM | | | | | PDT | | + + + + + | Height | 167.6 cm (5' 6") | 03/17/2015 3:22 PM | | | | | PDT | | + + + + + | Body Mass Index | 43.09 | 03/17/2015 3:22 PM | | | | | PDT | | + + + + + documented in this encounter Patient Instructions Patient Instructions Sascha Mir DO - 03/17/2015 3:59 PM PDTPlease undergo MRI of the cervical and lumbar spine. Please undergo new x-rays of the lumbar spine in 3 and 9 months. Please follow-up with me after the MRIs. documented in this encounter Progress Notes Sascha Mir DO - 03/17/2015 4:31 PM PDTFormatting of this note might be different fro m the original. Sascha Mir DO [address] [facility], [address] [place] [address] FAX: NEUROSURGERY FOLLOW-UP CHIEF COMPLAINT: Chief Complaint Patient presents with Follow-up 3-month post-op HISTORY OF PRESENT ILLNESS: The patient is a 45 y.o. female that had a TLIF L5-S1 by me fo r back and leg pain around 3 months ago . She returns and overall is doing poorly. The pat ient complains of continued back pain and right leg pain. Her left leg pain from before surg naty is somewhat improved. She also complains of left arm pain since surgery. This is intermi ttent and radiates from her neck down into her left hand. The patient is still taking narco tics for pain management. The patient has been walking as directed and has tried to remain active. Overall, the patient is not pleased with her improvement. PAST MEDICAL HISTORY: Past Medical History Diagnosis [...] L5-S1 Transforaminal Lumbar Interbody Fusion; Surgeon: Sascha Mir DO; L ocation: [facility] CURRENT MEDICATIONS: Current Outpatient Prescriptions Medication Sig Dispense Refill ALBUTEROL SULFATE IN NEBU; 1-2 puffs every 3-4 hours as needed ASCORBIC ACID PO Take 1 tablet by mouth Daily. Cholecalciferol (VITAMIN D PO) Take 1 tablet by mouth Daily. diazepam (VALIUM) 5 mg tablet Take 1 tablet by mouth every 6 hours as needed (muscle sp asm). 60 tablet 0 docusate sodium (COLACE) 100 MG capsule Take 100 mg by mouth Twice daily as needed for Constipation. 100 capsule 3 gabapentin (NEURONTIN) 300 mg capsule Take 1 capsule by mouth 3 times daily. May increa se to 600mg TID after 3 days. 90 capsule 11 guaiFENesin (ROBITUSSIN) 100 mg/5 mL SOLN Take 200 mg by mouth every 4 hours as needed. lisinopril (PRINIVIL, ZESTRIL) 10 mg tablet Take 2.5 mg by mouth Daily. Loratadine (CLARITIN) 10 MG CAPS Take by mouth Daily. methocarbamol (ROBAXIN) 750 mg tablet Take 1 tablet by mouth every 6 hours as needed fo r Muscle spasms. 60 tablet 2 montelukast (SINGULAIR) 10 mg tablet Take 10 mg by mouth nightly. ondansetron (ZOFRAN ODT) 4 mg disintegrating tablet Take 1 tablet by mouth every 8 hour s as needed for Nausea. 30 tablet 0 oxyCODONE-acetaminophen (PERCOCET) 10-325 mg per [...] itching Latex Itching Morphine Itching and Rash Hydromorphone Itching SOCIAL HISTORY: The patient reports [...] Asthma Son INTERIM PHYSICAL EXAMINATION: Blood pressure 124/80, pulse 76, resp. rate 20, height 1.676 m (5' 6"), weight 121.11 kg (2 67 lb), not currently . Body mass index is 43.12 kg/(m^2). GENERAL: Demian Nina is in no [...] not be expec elle at this time. ASSESSMENT: S/P TLIF L5-S1: Encounter Diagnoses Name Primary? Spondylolisthesis of lumbar region Yes S/P lumbar fusion Cervical radicular pain Past Medical History Diagnosis [...] vomiting) PLAN: Overall, the patient is doing poorly. This was discussed with the patient today. I have i ncreased the patient s activities further, and I would like the patient to continue to adv ance with activities as tolerated and as directed. I will order new MRI of the cervical and lumbar spine. She will return to review them after they are completed. She will undergo repeat x-ray of the back in 3 and 9 months and follow-up with me as needed after that. ELECTRONICALLY SIGNED BY: Sascha Mir DO, 03/17/2015 16:41 documented in this encounter Plan of Treatment +--------+---------+ + + + | Date | Type | Specialty | Care Team | Description | +--------+---------+ + + + | 09/25/ | Office | Cardiology | Rudy Osullivan, | | | 2019 | Visit | | MD [address] | | | | | | [address], | | | | | | [place] [address] | | | | | | [phone] | | | | | | | | +--------+---------+ + + + + +---------+--------+ + + | Name | Type | Priori | Associated Diagnoses | Order Schedule | | | | ty | | | + +---------+--------+ + + | MRI Cervical Spine | Imaging | Routin | Cervical radicular | Expected: 03/17/2015 | | wo Contrast | | e | pain | (Approximate), | | | | | | Expires: 03/17/2016 | + +---------+--------+ + + | MRI Lumbar Spine wo | Imaging | Routin | Spondylolisthesis | Expected: 03/17/2015 | | Contrast | | e | of lumbar region | (Approximate), | | | | | S/P lumbar fusion | Expires: 03/17/2016 | + +---------+--------+ + + | XR Lumbar Spine 2 or | Imaging | Routin | Spondylolisthesis | Expected: 12/16/2015 | | 3 Vw | | e | of lumbar region | (Approximate), | | | | | S/P lumbar fusion | Expires: 03/16/2016 | + +---------+--------+ + + | XR Lumbar Spine 2 or | Imaging | Routin | Spondylolisthesis | Expected: 06/17/2015 | | 3 Vw | | e | of lumbar region | (Approximate), | | | | | S/P lumbar fusion | Expires: 03/16/2016 | + +---------+--------+ + + documented as of this encounter Visit Diagnoses + + | Diagnosis | + + | Spondylolisthesis of lumbar region - Primary Acquired spondylolisthesis | + + | S/P lumbar fusion Arthrodesis status | + + | Cervical radicular pain Brachial neuritis or radiculitis nos | + + documented in this encounter
--- OUTSIDE RECORDS SUMMARY | ~2019-08-08 | XMS | Encounter Summary ---
Demographics + + + | Address | [address] | | | [place] [address] | + + + | Home Phone | | + + + | Preferred Language | Unknown | + + + | Marital Status | Single | + + + | Mandaeism Affiliation | CAT | + + + [...] Providers + +------+ + | Care Registered Route Associate Name | Role | Phone | + +------+ + | Quentin Manriquez | PCP | | + +------+ + Reason for Visit + + + | Reason | Comments | + + + | Follow-up visit | | + + + Consultation (Routine) +--------+--------+ [...] | | | specified as | | [place], [place] | | | | | acute or | | [address] | | | | | chronic | | Phone: | | | | | Conductive | | [phone] | | | | | hearing | | Fax: | | | | | loss, | | [phone] | | | | | unilateral | [...] Description | +--------+---------+ + + + | 12/04/ | Office | Otolaryngology | Guillen Armas, Windy | ETD (eustachian tube | | 2015 | Visit | Otology Services at | MD Loli [address] | dysfunction), | | | | [facility] [address] | bilateral (Primary | | | | [address] | [place], [place] | Dx); Conductive | | | | Mailcode: PV01 | [address] | hearing loss in | | | | [facility] | [phone] | right ear; Dizziness | | | | [place], [place] | | | | | | [address] | | | | | | [phone] | | | +--------+---------+ + + + [...] encounter Progress Notes Windy Mclean MD - 12/04/2014 11:54 AM PDTDate: 12/04/2014 Demian Nina returns for follow up. She complains of persistent right ear discomfort and episodic dizziness. She denies otorrhea. She had tympanostomy tube in right ear on 04/01 for otitis media with effusion. Previous visit was on 08/14/2014. From initial visit on 04/01/2014: Demian Nina [...] ear surgery. Alert, oriented, with fluent speech Otomicroscopy: AD: Ear canal is patent. Tympanic membrane is intact, mildly retracted, with dimeric membra ne at previous tympanostomy tube site, without effusion : Ear canal is patent. Tympanic membrane is intact with normal landmarks and without effu melida. Facial nerve normal both sides No nystagmus. Normal gait Mood, affect normal CT temporal bone 08/14/2014: Normal on both sides. No cholesteatoma or superior semicircular canal dehiscence. A/P: Demian Nina has persistent right ear discomfort and episodic dizziness with un clear etiology. There is no active inflammation or infection. We would like to proceed with vestibular testing to characterize her inner ear balance system. She will follow up with me after testing. Windy Rodriguez MD PhD Senior Outside Sales Representative Otology, Neurotology & Skull Base Surgery documented in this encounter Plan of Treatment Not on filedocumented as of this encounter Procedures + +--------+ + + + | Procedure Name | Priori | Date/Time | Associated Diagnosis | Comments | | | ty | | | | + +--------+ + + + | [place] EAR MICROSCOPY | Routin | 12/05/2014 | ETD (eustachian | | | EXAMINATION | e | 11:30 PM | tube dysfunction), | | | | | PDT | bilateral | | | | | | Conductive hearing | | | | | | loss in right ear | | | | | | Dizziness | | + +--------+ + + + documented in this encounter Visit Diagnoses + + | Diagnosis | + + | ETD (Eustachian tube dysfunction), bilateral - Primary | + + | Conductive hearing loss in right ear Conductive hearing loss, unilateral | + + | Dizziness Dizziness and giddiness | + + documented in this encounter
--- OUTSIDE RECORDS SUMMARY | ~2019-08-08 | XMS | Encounter Summary ---
Demographics + + + | Address | [address] | | | [place] [address] | + + + | Home Phone | | + + + | Preferred Language | Unknown | + + + | Marital Status | Single | + + + | Sikh Affiliation | 1041 | + + + | Race | Unknown | + + + | Ethnic Group | Unknown | + + + Author + + + | Author | [facility] | | | and [place] | + + + | Organization | [facility] | | | and [place] [...] [place], [place] | | | | | [address] | | + + + + + | Pratibha Hester | ECON | Unknown | + | + + + + + | Demian Powell | ECON | Unknown | + | + + + + + Care Team Providers + +------+ + | Care Commercial Airline Pilot Name | Role | Phone | + +------+ + | Derick Mclaughlin PA-C | PCP | | + +------+ + Encounter Details +--------+ + + + + | Date | Type | Department | Care Team | Description | +--------+ + + + + | 05/18/ | Abstract | [facility] [place] | Denilson Jorge | Spondylolisthesis of | | 2011 | | NEUROSURGERY [address] | FMD [address] | lumbar region | | | | [address] | [address] [place] [address] | L5-S1; Pars defect | | | | [place], [place] | [address] | of lumbar spine | | | | [address] | [phone] | L5-S1; Degenerative | | | | [phone] | | disc disease, lumbar | | | | | | L4-5; Radiculopathy | | | | | | of lumbar region | | | | | | L5-S1; Morbid | | | | | | obesity ([facility]); | | | | | | Sacroiliitis ([facility]); | | | | | | Trochanteric | | | | | | bursitis; Diabetes | | | | | | mellitus ([facility]); | | | | | | Asthma | +--------+ + + + + Social [...] + + + | Blood Pressure | 113/71 | 05/18/2012 1:48 PM | | | | | PDT | | + + + + + | Pulse | 91 | 05/18/2012 1:48 PM | | | | | PDT | | + + + + + | Temperature | - | - | | + + + + + | Respiratory Rate | 18 | 05/18/2012 1:48 PM | | | | | PDT | | + + + + + | Oxygen Saturation | - | - | | + + + + + | Inhaled Oxygen | - | - | | | Concentration | | | | + + + + + | Weight | 124.4 kg (274 lb 4 | 05/18/2012 1:48 PM | | | | oz) | PDT | | + + + + + | Height | 165 cm (5' 4.96") | 05/18/2012 1:48 PM | | | | | PDT | | + + + + + | Body Mass Index | 45.69 | 05/18/2012 1:48 PM | | | | | PDT | | + + + + + documented in this encounter Plan of Treatment +--------+---------+ + + + | Date | Type | Specialty | Care Team | Description | +--------+---------+ + + + | 09/25/ | Office | Cardiology | Rudy Osullivan, | | | 2019 | Visit | | MD [address] | | | | | | [place], | | | | | | [place] [address] | | | | | | [phone] | | | | | | | [...] | intervertebral disc | + + | Radiculopathy of lumbar region L5-S1 Thoracic or lumbosacral neuritis or radiculitis, | | unspecified | + + | Morbid obesity ([facility]) Morbid obesity | + + | Sacroiliitis ([facility]) Sacroiliitis, not elsewhere classified | + + | Trochanteric bursitis Enthesopathy of hip region | + + | Diabetes mellitus ([facility]) Type II or unspecified type diabetes mellitus without mention | | of complication, not stated as uncontrolled | + + | Asthma Unspecified asthma | + + documented in this encounter
--- OUTSIDE RECORDS SUMMARY | ~2019-08-08 | XMS | Encounter Summary ---
Demographics + + + | Address | [address] | | | [place] [address] | + + + | Home Phone | | + + + | Preferred Language | Unknown | + + + | Marital Status | Single | + + + | Rastafarian Affiliation | 1041 | + + + | Race | Unknown | + + + | Ethnic Group | Unknown | + + + Author + + + | Author | [facility] | | | and [place] | + + + | Organization | [facility] | | | and [place] [...] [place] | | | | | [address] | | + + + + + | Pratibha Hester | ECON | Unknown | + | + + + + + | Demian Powell | ECON | Unknown | + | + + + + + Care Team Providers + +------+ + | Care Hand Turner Name | Role | Phone | + [...] | Specialty | Physical | Diagnoses | | | | | Services | Therapy | | Ioana, | | | | Required | | Radiculopath | Roger Ennis MD | | | | | | y, lumbar | [address] | | | | | | region Low | [place] | | | | | | back pain | [place] | | | | | | S/P lumbar | [address] | | | | | | fusion | Phone: | | | | | | | [phone] | | | | | | | Fax: | | | | | | | [phone] | | +--------+ + + + + + Reason for Visit + + + | Reason | Comments | + + + | Numbness | left foot | + + + | Back Pain | Right sided low back pain | + + + Evaluate & Treat (Routine) +--------+ + + [...] pain | [address] | [place] | | | | | Cervical | [place], [place] | [place], [place] | | | | | radicular | [address] | [address] Phone: | | | | | pain | Phone: | [phone] | | | | | | [phone] | Fax: | | | | | | Fax: | [phone] | | | | | | [phone] | | +--------+ + + + + + Encounter Details +--------+---------+ + + + | Date | Type | Department | Care Team | Description | +--------+---------+ + + + | 07/22/ | Office | [facility] | Roger Triplett | Chronic low back | | 2014 | Visit | PHYSIATRY [address] | MD Loli [address] | pain (Primary Dx); | | | | [address], | [address] [place], [place] | Lumbar | | | | [place] [address] | [address] | radiculopathy; S/P | | | | [phone] | | lumbar fusion; | | | | | | Sacroiliitis; Morbid | | | | | | obesity due to | | | | | | excess calories | | | | | | ([facility]) | +--------+---------+ + + + Social History [...] + + + | Blood Pressure | 127/70 | 07/22/2015 8:19 AM | | | | | PST | | + + + + + | Pulse | 75 | 07/22/2015 8:19 AM | | | | | PST [...] Weight | 117.9 kg (260 lb) | 07/22/2015 8:19 AM | | | | | PST | | + + + + + | Height | 167.6 cm (5' 6") | 07/22/2015 8:19 AM | | | | | PST | | + + + + + | Body Mass Index | 41.97 | 07/22/2015 8:19 AM | | | | | PST | | + + + + + documented in this encounter Progress Notes Roger Triplett MD - 07/22/2015 8:21 AM PST Roger Triplett MD [address] [facility], [address] [place] [address] FAX: PHYSICAL MEDICINE AND REHABILITATION H&P CHIEF COMPLAINT: Chief Complaint Patient presents with Numbness left foot Back Pain Right sided low back pain HISTORY OF PRESENT ILLNESS: The patient is a 45 y.o. female with the complaint of right si ded low back pain that began worsening in March. She has a ten year history of back pain i ssues which eventually lead to a lumbar surgery on December 122014. Her surgery was perform ed by Dr. Sascha Mir. The patient states the majority of her back pain did improve but one concerning thing for her is new onset of numbness in the left foot and left hand that start ed right after her lumbar fusion was performed. She does also note that in March she twiste d wrong and felt a pop on the right side of the low back, above her fusion and she has had s ignificant back pain in that region since that time. She does also report bilateral leg finesse n especially at the end of her work day when she has been standing, walking and lifting a lo t. The symptoms have been gradually worsening. She rates the pain as moderate. The symptoms are daily. She describes the pain as dull an d sharp. The patient describes leg symptoms that occur on both sides. The leg symptoms account for approximately 50% of her symptoms. The leg symptoms are persistent and the symptoms travel from the low back all the way to the feet. The patient does report numbness in the left fo ot and also in the left hand. She does report weakness of the both legs and arms. The patient does not report any change in bowel or bladder function or saddle anesthesia re cently. Her symptoms improve with sitting, laying down and occasional use of a heating pad. Her symptoms worsen with standing, walking, bending and twisting. She has tried PT, Chiropactic, NSAIDS, Steroids and Muscle relaxers. The patient had a lum bar fusion at L5-S1 which was performed by Dr. Sascha Mir on 12/12/2014. She is currently ta yariel Oxycodone for pain control. PAST MEDICAL HISTORY: Past Medical History Diagnosis [...] after anesthesia. PONV (postoperative nausea and vomiting) Chronic low back pain 07/22/2015 Lumbar radiculopathy 07/22/2015 S/P lumbar fusion 07/22/2015 PAST SURGICAL HISTORY: Past Surgical History Procedure Laterality Date Tonsillectomy Adenectomy Shoulder surgery Cholecystectomy section, low transverse 1995 section, low transverse 2005 Lumbar laminectomy N/A 12/12/2014 Procedure: L5-S1 Transforaminal Lumbar Interbody Fusion; Surgeon: Sascha Mir, DO; L ocation: [facility] CURRENT MEDICATIONS: Current Outpatient Prescriptions Medication Sig Dispense Refill ALBUTEROL SULFATE IN NEBU; 1-2 puffs every 3-4 hours as needed ASCORBIC ACID PO Take 1 tablet by mouth Daily. Cholecalciferol (VITAMIN D PO) Take 1 tablet by mouth Daily. guaiFENesin (ROBITUSSIN) 100 mg/5 mL SOLN Take [...] Sister Asthma Daughter Asthma Son REVIEW OF SYSTEMS: GENERALLY: + fever, no night sweats, no anemia, no fatigue, no recent profound weight donavan nges. EYES: No eye problems, no use of corrective lenses, no eye injury, no double vision, no bl indness. EARS, NOSE, AND THROAT: No changes in taste or smell, no hearing difficulty, no ringing in the ears, no ear drainage, no dizziness, no voice changes, no difficulty swallowing, no sig nificant snoring, no sleep apnea, no sinus problems, no major dental work. NEUROLOGICALLY: Please see the review of systems discussed above in the history of present illness. In addition, the patient has pain in back, awake with numbness. PSYCHIATRIC: No depression, no sleep disorders, no anxiety, no bipolar disorder, no psycho tic episodes. CARDIOVASCULAR: No heart attacks, no heart murmur, no heart fluttering, no chest pain, no ankle swelling. LUNG DISEASE: No shortness of breath, + cough, no tuberculosis, no bloody cough, no asthm a, no emphysema/COPD. GASTROINTESTINAL: No bowel disease, no nausea or vomiting, no rectal bleeding, + constipat ion, no stool incontinence, no liver disease, no gallbladder disease, no abdominal pain, no ulcers. KIDNEY DISEASE: No urinary frequency, no painful or difficult urination, no incontinence. ENDOCRINE: No diabetes, no thyroid disease, no osteopenia or osteoporosis, no breast drain age. SKIN: No breast lumps, no skin changes, no rashes, no itches. HEMATOLOGIC/LYMPHATIC: No enlarged lymph nodes, no easy or unusual bleeding, no personal h istory of cancer. RHEUMATOLOGIC: No joint arthritis, no rheumatoid arthritis. PHYSICAL EXAMINATION: Blood pressure 127/70, pulse 75, height 1.676 m (5' 6"), weight 117.935 kg (260 lb), not cu rrently . Body mass index is 41.99 kg/(m^2). GENERAL: The patient is well developed and well nourished. She does appear uncomfortable w hen seated. HEENT: HEAD/FACE: EYES: Normocephalic and atraumatic. There are no areas of recent trauma. Normal sclerae without icterus. SKIN Limited skin exam shows no significant rashes or lesions. There are scars in the lumb ar region. 5 incisions total. CHEST: The patient is in no acute respiratory distress with unlabored respirations. HEART: There is not lower extremity edema. ABDOMEN: The patient is obese. NEUROLOGIC: The patient is awake, alert, and oriented to time, place, person. She follows simple and complex commands. Her speech is fluent. She comprehends speech well. She has no apparent deficits with short or vermin exterminator memory. She has appropriate fund of knowledge Cranial nerves 2-12 appear grossly intact. Sensory exam does show diminished sensation to light touch in the left upper and lower extr emities. The greatest numbness is in the toes of the left foot. REFLEX: RIGHT LEFT PATELLAR 2+ 2+ ACHILLES 0 0 PLANTAR Downgoing Downgoing MUSCULOSKELETAL There is no major palpable deformity of the spine. Straight leg raise and slump-sit caused pain on the right which she describes as "sciatica" . Gavin's maneuver and impingement testing were negative for any groin pain. There was no tenderness to palpation over the greater trochanters or sacral sulci. The patient locali zed the majority of the pain to the L2-L3 region. Lumbar facet loading was negative. [facility] testing showed 5/5 strength throughout the lower extremities. The patient was able to h eel and toe walk without difficulty. There was no redness, effusion, warmth or joint line t enderness in the knees or ankles. RADIOGRAPHIC REVIEW: The patient's imaging was reviewed in detail with the patient today during the visit. The MRI from March of 2015 shows a stable fusion at L5-S1 with some continued slight spondyloli sthesis. There is also continued foraminal stenosis at the L5-S1 level. IMPRESSION: Encounter Diagnoses Name Primary? Chronic low back pain Yes Lumbar radiculopathy S/P lumbar fusion Sacroiliitis Morbid obesity due to excess calories (HCC) PLAN: 1.It is interesting to me that the pain is so high in the back. She localizes the pain neo gail to the right side at the L2-L3 or L3-4 level. This is considerably higher than her f usion. The MRI of the lumbar spine which was performed after her symptoms worsened does not show any significant degenerative changes of the upper lumbar levels. I would like to see the patient participate in physical therapy as the next step. The patient was given a detail ed referral to physical therapy today. 2. Epidural steroid injections were also discussed and she was informed that this may be wa rranted in the future if she continue to have a lot of pain even after completing the physic al therapy. I wouldn't perform bilateral L5-S1 transforaminal epidural steroid injections. 3. Medications were discussed. She was informed that the narcotics should be using sparingl y and hopefully she will be able to get off that completely. I do not personally plan on co ntinuing her narcotic prescription and she would have to get that from other providers if it is to be continued. Gabapentin or another medication for neuropathic pain may be warranted in the future. NSAID's were discussed with the patient as well. She is hesitant to try any NSAID's due to a history of ulcers but if used sparingly or along with a medication for GI p rotection that may be appropriate to try again. ELECTRONICALLY EDITED AND SIGNED BY: Roger Triplett MD, 07/22/2015 Scribed by: Yoselin Hirsch MA for Dr. Roger Triplett on 07/22/2015 documented in this encounter Plan of Treatment +--------+---------+ + + + | Date | Type | Specialty | Care Team | Description | +--------+---------+ + + + | 09/25/ | Office | Cardiology | Rudy Osullivan, | | | 2019 | Visit | | [address] | | | | | | [place], | | | | | | [place] [address] | | | | | | [phone] | | | | | | | | +--------+---------+ + + + + + +--------+ + + | Name | Type | Priori | Associated Diagnoses | Order Schedule | | | | ty | | | + + +--------+ + + | External Physical | Outpatient | Routin | Chronic low back | Ordered: 07/22/2015 | | Therapy - AMB | Referral | e | pain Lumbar | | | Referral | | | radiculopathy S/P | | | | | | lumbar fusion | | + + +--------+ + + documented as of this encounter Visit Diagnoses + + | Diagnosis | + + | Chronic low back pain - Primary Lumbago | + + | Lumbar radiculopathy Thoracic or lumbosacral neuritis or radiculitis, unspecified | + + | S/P lumbar fusion Arthrodesis status | + + | Sacroiliitis Sacroiliitis, not elsewhere classified | + + | Morbid obesity due to excess calories (HCC) | + + documented in this encounter
--- OUTSIDE RECORDS SUMMARY | ~2019-08-08 | XMS | Encounter Summary ---
Demographics + + + | Address | [address] | | | [place] [address] | + + + | Home Phone | | + + + | Preferred Language | Unknown | + + + | Marital Status | Single | + + + | Mormonism Affiliation | 1041 | + + + | Race | Unknown | + + + | Ethnic Group | Unknown | + + + Author + + + | Author | [facility] | | | and [place] | + + + | Organization | [facility] | | | and [place] [...] [place] | | | | | [address] | | + + + + + | Pratibha Hester | ECON | Unknown | + | + + + + + | Demian Powell | ECON | Unknown | + | + + + + + Care Team Providers + +------+ + | Care Grit Blaster Name | Role | Phone | + [...] + + | 06/17/ | Telephone | [facility] | Sascha Mir, | Appointment | | 2014 | | NEUR[address]UR[address] | DO [address] | | | | | [address] | [address] [place], [place] | | | | | [place], [place] | [id number] | | | | | [address] | | | | | | [phone] | | | +--------+ + + + [...] | | | | | | [place] [address] | | | | | | [phone] | | | | | | | | +--------+---------+ + + + documented as of this encounter Visit Diagnoses Not on filedocumented in this encounter"
--- OUTSIDE RECORDS SUMMARY | ~2019-08-08 | XMS | Encounter Summary ---
Demographics + + + | Address | [address] | | | [place] [address] | + + + | Home Phone [...] Author + + + | Author | [facility] | + + + | Organization | [facility] | + + + | Address | Unknown | + + + | Phone | Unavailable | + + + Support + + +---------+ + | Name | Relationship | Address | Phone | + + +---------+ + | Al[place] Nina | ECON | Unknown | | + + +---------+ + Care Team Providers + +------+ + | Care Resilient Tile Installer Name | Role | Phone | + +------+ + | Quentin Manriquez | PCP | | + +------+ + Reason for Visit + + + | Reason | Comments | + + + | Pre-op evaluation | | + + + Encounter Details +--------+ + + + + | Date | Type | Department | Care Team | Description | +--------+ + + + + | 02/12/ | Telephone-S | Preoperative | | Pre-op evaluation | | 2019 | cheduled | [facility] at | | | | | | [facility] | | | | | | [address] | | | | | | Mail Code: [id number] | | | | | | [facility] | | | | | | and Healing, | | | | | | [address] | | | | | | [place], [place] | | | | | | [address] | | | | | | [phone] | | | +--------+ + + + [...]
--- OUTSIDE RECORDS SUMMARY | ~2019-08-08 | XMS | Encounter Summary ---
Demographics + + + | Address | [address] | | | [place] [address] | + + + | Home Phone | | + + + | Preferred Language | Unknown | + + + | Marital Status | Single | + + + | Advent Affiliation | 1041 | + + + | Race | Unknown | + + + | Ethnic Group | Unknown | + + + Author + + + | Author | [facility] | | | and [place] | + + + | Organization | [facility] | | | and [...] [place], [place] | | | | | [address] | | + + + + + | Pratibha Hester | ECON | Unknown | + | + + + + + | Demian Powell | ECON | Unknown | + | + + + + + Care Team Providers + +------+ + | Care Director Of Consulting Services Name | Role | Phone | + +------+ + | Jannette Boyle PA-C | PCP | | + +------+ + Reason for Visit +--------+ + | Reason | Comments | +--------+ + | Other | Medication refill | +--------+ + Encounter Details +--------+ + + + + | Date | Type | Department | Care Team | Description | +--------+ + + + + | 01/01/ | Telephone | [facility] | Sascha Mir, | Other (Medication | | 2014 | | NEUR[address]UR[address]ERY [address] | DO [address] | refill) | | | | [address] [facility] [address] | [address] [place], [place] | | | | | [place] | [address] | | | | | [address] | | | | | | [phone] | | | +--------+ + + + [...] | | | | | | [place] [address] | | | | | | [phone] | | | | | | | | +--------+---------+ + + + documented as of this encounter Visit Diagnoses Not on filedocumented in this encounter"
--- OUTSIDE RECORDS SUMMARY | ~2019-08-08 | XMS | Encounter Summary ---
Demographics + + + | Address | [address] | | | [place] [address] | + + + | Home Phone | | + + + | Preferred Language | Unknown | + + + | Marital Status | Single | + + + | Temple Affiliation | 1041 | + + + | Race | Unknown | + + + | Ethnic Group | Unknown | + + + Author + + + | Author | [facility] | | | and [place] | + + + | Organization | [facility] | | | and [place] [...] [place], [place] | | | | | [address] | | + + + + + | Pratibha Hester | ECON | Unknown | + | + + + + + | Demian Powell | ECON | Unknown | + | + + + + + Care Team Providers + +------+ + | Care Store Team Member Name | Role | Phone | + +------+ + | Derick Mclaughlin PA-C | PCP | | + +------+ + Reason for Visit +--------+ + | Reason | Comments | +--------+ + | Other | AUTHORIZATION FOR SURGERY | +--------+ + Encounter Details +--------+ + + + + | Date | Type | Department | Care Team | Description | +--------+ + + + + | 09/29/ | Telephone | [facility] | Denilson Jorge | Other (AUTHORIZATION | | 2012 | | [address] | F[address] | FOR SURGERY) | | | | [address] | [address] [place] [address] | | | | | [place] | [address] | | | | | [address] | [phone] | | | | | [phone] | | | +--------+ + + + [...] [place], | | | | | | [place] [address] | | | | | | [phone] | | | | | | | | +--------+---------+ + + + documented as of this encounter Visit Diagnoses Not on filedocumented in this encounter"
--- OUTSIDE RECORDS SUMMARY | ~2019-08-08 | XMS | Encounter Summary ---
Demographics + + + | Address | [address] | | | [place] [address] | + + + | Home Phone | | + + + | Preferred Language | Unknown | + + + | Marital Status | Single | + + + | Spiritism Affiliation | CAT | + + + | Race | Unknown | + + + | Ethnic Group | Not or | + + + Author + + + | Author | [facility] | + + + | Organization | [facility] | + + + | Address | Unknown | + + + | Phone | Unavailable | + + + Support + + +---------+ + | Name | Relationship | Address | Phone | + + +---------+ + | Al[place] Nina | ECON | Unknown | | + + +---------+ + Care Team Providers + +------+ + | Care Production Control Clerk Name | Role | Phone | + +------+ + | Quentin Manriquez | PCP | | + +------+ + Encounter Details +--------+ + + + + | Date | Type | Department | Care Team | Description | +--------+ + + + + | 02/16/ | Abstract | [facility] | Clinic, | | | 2017 | | [place] [facility] [address] | Gastroenterology | | | | | [address] | | | | | | Mailcode: [place] | | | | | | [facility] and | | | | | | Healing, [address] | | | | | | [place], [place] | | | | | | [address] | | | | | | [phone] | | | +--------+ + + + [...]
--- OUTSIDE RECORDS SUMMARY | ~2019-08-08 | XMS | Encounter Summary ---
Demographics + + + | Address | [address] | | | [place] [address] | + + + | Home Phone [...] Team Providers + +------+ + | Care Mail Messenger Name | Role | Phone | + [...] | | | | | Procedures | [place], [place] | [facility] | | | | | [address] | [address] | [place], [place] | | | | | BENIGN | Phone: | [phone] | | | | | DISEASE WO | [phone] | Phone: | | | | | DC CT | Fax: | [phone] | | | | | SCAN,ORBIT/S | [phone] | Fax: | | | | | CORY/POST | | [phone] | | | | | FOSSA/EAR,W/ | [...] | | | specified as | | [place], [place] | | | | | acute or | | [address] | | | | | chronic | | Phone: | | | | | Conductive | | [phone] | | | | | hearing | | Fax: | | | | | loss, | | [phone] | | | | | unilateral | [...] | | | | [address] | [place], [place] | Dizziness | | | | Mailcode: [id number] | [address] | | | | | [facility] | [phone] | | | | | [place], [place] | | | | | | [address] | | | | | | [phone] | | | +--------+---------+ + + + [...] coordinating of care. Windy Rodriguez MD PhD [facility], Neurotology & Skull Base Surgery documented [...]
--- OUTSIDE RECORDS SUMMARY | ~2019-08-08 | XMS | Encounter Summary ---
Demographics + + + | Address | [address] | | | [place] [address] | + + + | Home Phone [...] Author | [facility] | | | and [place]ana | + + + | Organization | [facility] | [...] [place] | | | | | [address] | | + + + + + | Pratibha Hester | ECON | Unknown | + | + + + + + | Demian Powell | ECON | Unknown | + | + + + + + Care Team Providers + +------+ + | Care Box Feeder Name | Role | Phone | + +------+ + | Quentin Manriquez PA-C | PCP | | + +------+ + Reason for Visit +--------+ + | Reason | Comments | +--------+ + | Other | Med refill | +--------+ + Encounter Details +--------+ + + + + | Date | Type | Department | Care Team | Description | +--------+ + + + + | 06/11/ | Telephone | [facility] | Sascha Mir, | Other (Med refill) | | 2014 | | NEUROSURGERY [address] | DO [address] | | | | | [address] | [address] [place], [place] | | | | | [place], [place] | [address] | | | | | [address] | | | | | | [phone] | | | +--------+ + + + [...] | | | | | | [place] [address] | | | | | | [phone] | | | | | | | | +--------+---------+ + + + documented as of this encounter Visit Diagnoses + + | Diagnosis | + + | Nausea - Primary Nausea alone | + + documented in this encounter"
--- OUTSIDE RECORDS SUMMARY | ~2019-08-08 | XMS | Encounter Summary ---
Demographics + + + | Address | [address] | | | [place] [address] | + + + | Home Phone | | + + + | Preferred Language | Unknown | + + + | Marital Status | Single | + + + | Mormon Affiliation | CAT | + + + | Race | Unknown | + + + | Ethnic Group | Not or | + + + Author + + + | Author | [facility] | + + + | Organization | [facility] | + + + | Address | Unknown | + + + | Phone | Unavailable | + + + Support + + +---------+ + | Name | Relationship | Address | Phone | + + +---------+ + | Alisia Nina | ECON | Unknown | | + + +---------+ + Care Team Providers + +------+ + | Care Feed Research Technician Name | Role | Phone | [...] Closed | | Physical | Diagnoses | [place], | Daniel Pt Chh1 | | | | Therapy | Morbid | Jen W, | [address] | | | | | obesity | AGACNP [address] | | | | | (HCC) | [address] | Mailcode: | | | | | Procedures | [place], | [facility] | | | | | PHYSICAL | [place] | for Health | | | | | THERAPY | [address] | and Healing, | | | | | REFERRAL | Phone: | [facility] 1, | | | | | | [phone] | [address] Floor | | | | | | Fax: | [place], [place] | | | | | | [phone] | [address] | | | | | | | Phone: | | | | | | | [phone] | | | | | | | Fax: | | | | | | | [phone] | +--------+--------+ + + + + Encounter Details +--------+ + + + + | Date | Type | Department | Care Team | Description | +--------+ + + + + | 05/03/ | [facility] Technical Lead Senior Developer | Digestive Health | Jen Coronel, | Morbid obesity (HCC) | | 2019 | | [facility] at [facility] [address] | AGACNP [address] | (Primary Dx) | | | | [address] | Ave [place], [place] | | | | | Mailcode: [place] | [address] | | | | | for Health and | [phone] | | | | | [facility], [facility] 2 | | | | | | [place], [place] | | | | | | [address] | | | | | | [phone] | | | +--------+ + + + [...]
--- OUTSIDE RECORDS SUMMARY | ~2019-08-08 | XMS | Encounter Summary ---
Demographics + + + | Address | [address] | | | [place] [address] | + + + | Home Phone [...] + + | Author | [facility] | + + + | Organization | [facility] | + + + | Address | Unknown | + + + | Phone | Unavailable | + + + Support + + +---------+ + | Name | Relationship | Address | Phone | + + +---------+ + | Alisia Nina | ECON | Unknown | | + + +---------+ + Care Team Providers + +------+ + | Care Electric Organ Inspector And Repairer Name | Role | Phone | [...] | | | | | Procedures | [place], [place] | [facility] | | | | | [address] | [address] | [place], [place] | | | | | BENIGN | Phone: | [phone] | | | | | DISEASE WO | [phone] | Phone: | | | | | [address] CT | Fax: | [phone] | | | | | SCAN,ORBIT/S | [phone] | Fax: | | | | | CORY/POST | | [phone] | | | | | FOSSA/EAR,W/ | [...] | | | | | Procedures | [place], [place] | [facility] | | | | | [address] | [address] | [place], [place] | | | | | BENIGN | Phone: | [phone] | | | | | DISEASE WO | [phone] | Phone: | | | | | [place] CT | Fax: | [phone] | | | | | SCAN,ORBIT/S | [phone] | Fax: | | | | | CORY/POST | | [phone] | | | | | FOSSA/EAR,W/ | | | | | | | O | | | +--------+--------+ + + + + Encounter Details +--------+ + + + + | Date | Type | Department | Care Team | Description | +--------+ + + + + | 08/14/ | Hospital | Diagnostic Imaging | | | | 2014 | Encounter | Services at [facility] | | | | | | [address] | | | | | | [place] Mailcode: | | | | | | [address] [facility] | | | | | | [place], [place] | | | | | | [address] | | | | | | [phone] | | | +--------+ + + + [...] + + | Performing | Address | City/State/[facility] | Phone Number | | Organization | | | | + +---------+ + + | [facility] DEPARTMENT OF | | | | | RADIOLOGY | | | | + +---------+ + + documented in this encounter Visit Diagnoses + + | Diagnosis | + + | Conductive hearing loss in right ear Conductive hearing loss, unilateral | + + | Dizziness Dizziness and giddiness | + + documented in this encounter"
--- OUTSIDE RECORDS SUMMARY | ~2019-08-08 | XMS | Encounter Summary ---
Demographics + + + | Address | [address] | | | [place] [address] | + + + | Home Phone [...] Team Providers + +------+ + | Care Brick Cleaner Name | Role | Phone | [...] | +--------+ + + + + | 07/13/ | Abstract | Digestive Health | Clinic, Surgery | Medical Records | | 2019 | | [place] [facility] [address] | | Review | | | | [address] | | | | | | Mailcode: [place] | | | | | | [facility] and | | | | | | [facility], [facility] 2 | | | | | | [place], [place] | | | | | | [address] | | | | | | [phone] | | | +--------+ + + + [...]
--- OUTSIDE RECORDS SUMMARY | ~2019-08-08 | XMS | Encounter Summary ---
Demographics + + + | Address | [address] | | | [place] [address] | + + + | Home Phone [...] Author + + + | Author | [facility] | + + + | Organization | [facility] | + + + | Address | Unknown | + + + | Phone | Unavailable | + + + Support + + +---------+ + | Name | Relationship | Address | Phone | + + +---------+ + | Alisia Nina | ECON | Unknown | | + + +---------+ + Care Team Providers + +------+ + | Care Stock Or Delivery Clerk Name | Role | Phone | [...] + + | 05/08/ | Emergency | [facility] Emergency | Davis Cabrera MD | | | 2008 | | Department [address] | [address] | | | | | [address] | [facility] | | | | | [facility] | [place], [place] | | | | | [place], [place] | [address] | | | | | [address] | [phone] | | | | | [phone] | | | +--------+ + + + [...] in this encounter Discharge Instructions Instructions Marita Tenorio Md - 05/08/2009Shingles (Herpes Zoster) You have [...] be followed carefully by your caregiver or process eng. 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 You do not have pain relief from prescribed medications. Your condition is worsening or has changed from what originally brought you in. ExitCare Patient Information 2006 Medialive. documented in this encounter Medications at Time [...]
--- OUTSIDE RECORDS SUMMARY | ~2019-08-08 | XMS | Encounter Summary ---
Demographics + + + | Address | [address] | | | [place] [address] | + + + | Home Phone [...] Author | [facility] | | | and [place] | + + + | Organization | [facility] | | | and [place] [...] [place] | | | | | [address] | | + + + + + | Pratibha Hester | ECON | Unknown | + | + + + + + | Demian Powell | ECON | Unknown | + | + + + + + Care Team Providers + +------+ + | Care Social Work Supervisor Name | Role | Phone | [...] + + + + | 12/31/ | Telephone | [facility] | Sascha Mir, | Appointment | | 2014 | | [address]UR[address] | DO [address] | | | | | [address] | [address] [place], [place] | | | | | [place], [place] | [id number] | | | | | [address] | | | | | | [phone] | | | +--------+ + + + [...] | | | | | | [place] [address] | | | | | | [phone] | | | | | | | | +--------+---------+ + + + documented as of this encounter Visit Diagnoses Not on filedocumented in this encounter"
--- OUTSIDE RECORDS SUMMARY | ~2019-08-08 | XMS | Encounter Summary ---
Demographics + + + | Address | [address] | | | [place] [address] | + + + | Home Phone | | + + + | Preferred Language | Unknown | + + + | Marital Status | Single | + + + | Mormon Affiliation | 1041 | + + + | Race | Unknown | + + + | Ethnic Group | Unknown | + + + Author + + + | Author | [facility] | | | and [place] | + + + | Organization | [facility] | | | and [place] [...] [place] | | | | | [address] | | + + + + + | Pratibha Hester | ECON | Unknown | + | + + + + + | Demian Powell | ECON | Unknown | + | + + + + + Care Team Providers + +------+ + | Care Message Clerk Name | Role | Phone | [...] + + | 08/13/ | Telephone | [facility] | Sascha Mir, | Other | | 2015 | | NE[address]OSUR[address] | DO [address] | | | | | [address] [facility] | [address] [place], [place] | | | | | [place], [place] | [id number] | | | | | [address] | | | | | | [phone] | | | +--------+ + + + [...] | | | | | | [place] [address] | | | | | | [phone] | | | | | | | | +--------+---------+ + + + documented as of this encounter Visit Diagnoses Not on filedocumented in this encounter"
--- OUTSIDE RECORDS SUMMARY | ~2019-08-08 | XMS | Encounter Summary ---
Demographics + + + | Address | [address] | | | [place] [address] | + + + | Home Phone [...] | [facility] | | | and [place]ana | + + + | Organization | [facility] | | | and [place] [...] [place] | | | | | [address] | | + + + + + | Pratibha Hester | ECON | Unknown | + | + + + + + | Demian Powell | ECON | Unknown | + | + + + + + Care Team Providers + +------+ + | Care Cost And Sales Record Supervisor Name | Role | Phone | [...] Description | +--------+--------+ + + + | 01/16/ | Refill | [facility] | Lenka Mann | Medication Refill | | 2015 | | NEUR[address]UR[address] | [facility], Medical | | | | | [address] | Grinder Machine Setter | | | | | [place] | | | | | | [address] | | | | | | [phone] | | | +--------+--------+ + + + [...] | | | | | | [place] [address] | | | | | | [phone] | | | | | | | | +--------+---------+ + + + documented as of this encounter Visit Diagnoses + + | Diagnosis | + + | Nausea - Primary Nausea alone | + + documented in this encounter"
--- OUTSIDE RECORDS SUMMARY | ~2019-08-08 | XMS | Encounter Summary ---
Demographics + + + | Address | [address] | | | [place] [address] | + + + | Home Phone | | + + + | Preferred Language | Unknown | + + + | Marital Status | Single | + + + | Cheondoism Affiliation | 1041 | + + + | Race | Unknown | + + + | Ethnic Group | Unknown | + + + Author + + + | Author | [facility] | | | and [place] | + + + | Organization | [facility] | | | and [place] | [...] [place] | | | | | [address] | | + + + + + | Pratibha Hester | ECON | Unknown | + | + + + + + | Demian Powell | ECON | Unknown | + | + + + + + Care Team Providers + +------+ + | Care Auto Clutch Specialist Name | Role | Phone | [...] | 06/12/ | Refill | [facility] [place] | Amol Triplett, | Medication Refill | | 2014 | | [address]UR[address]UR[address] | PA-C [address] | | | | | [address] | [address] [place] | | | | | [place] | [place] [address] | | | | | [address] | [phone] | | | | | [phone] | | | +--------+--------+ + + + [...] | | | | | | [place] [address] | | | | | | [phone] | | | | | | | | +--------+---------+ + + + documented as of this encounter Visit Diagnoses + + | Diagnosis | + + | Nausea Nausea alone | + + documented in this encounter"
--- OUTSIDE RECORDS SUMMARY | ~2019-08-08 | XMS | Encounter Summary ---
Demographics + + + | Address | [address] | | | [place] [address] | + + + | Home Phone | | + + + | Preferred Language | Unknown | + + + | Marital Status | Single | + + + | Religion Affiliation | CAT | + + + | Race | Unknown | + + + | Ethnic Group | Not or | + + + Author + + + | Author | [facility] | + + + | Organization | [facility] | + + + | Address | Unknown | + + + | Phone | Unavailable | + + + Support + + +---------+ + | Name | Relationship | Address | Phone | + + +---------+ + | Alisia Nina | ECON | Unknown | | + + +---------+ + Care Team Providers + +------+ + | Care Jute Bag Clipper Name | Role | Phone | + +------+ + | Gracie Lewis PA-C | PCP | | + +------+ + Encounter Details +--------+ + + + + | Date | Type | Department | Care Team | Description | +--------+ + + + + | 04/25/ | Documentati | Digestive Health | Clinic, Surgery | | | 2019 | on | [place] [facility] [address] | | | | | | [address] | | | | | | Mailcode: Center | | | | | | for Health and | | | | | | Healing, Building [address] | | | | | | [facility] [place] | | | | | | [address] | | | | | | [phone] | | | +--------+ + + + [...]
--- OUTSIDE RECORDS SUMMARY | ~2019-08-08 | XMS | Encounter Summary ---
Demographics + + + | Address | [address] | | | [place] [address] | + + + | Home Phone | | + + + | Preferred Language | Unknown | + + + | Marital Status | Single | + + + | Scientology Affiliation | 1041 | + + + | Race | Unknown | + + + | Ethnic Group | Unknown | + + + Author + + + | Author | [facility] | | | and [place] | + + + | Organization | [facility] | | | and [...] [place], [place] | | | | | [address] | | + + + + + | Pratibha Hester | ECON | Unknown | + | + + + + + | Demian Powell | ECON | Unknown | + | + + + + + Care Team Providers + +------+ + | Care Agricultural Science Professor Name | Role | Phone | [...] + + | 03/17/ | Telephone | [facility] | Sascha Mir, | Other | | 2014 | | [address]UR[address]UR[address]ERY [address] | DO [address] | | | | | [address] [facility] | [address] [place], [place] | | | | | [place], [place] | [address] | | | | | [address] | | | | | | [phone] | | | +--------+ + + + [...] | | | | | | [place] [address] | | | | | | [phone] | | | | | | | | +--------+---------+ + + + documented as of this encounter Visit Diagnoses Not on filedocumented in this encounter"
--- OUTSIDE RECORDS SUMMARY | ~2019-08-08 | XMS | Encounter Summary ---
Demographics + + + | Address | [address] | | | [place] [address] | + + + | Home Phone | | + + + | Preferred Language | Unknown | + + + | Marital Status | Single | + + + | Faith Affiliation | 1041 | + + + | Race | Unknown | + + + | Ethnic Group | Unknown | + + + Author + + + | Author | [facility] | | | and [place] | + + + | Organization | [facility] | | | and [place] [...] [place] | | | | | [address] | | + + + + + | Pratibha Hester | ECON | Unknown | + | + + + + + | Demian Powell | ECON | Unknown | + | + + + + + Care Team Providers + +------+ + | Care Machine Silver Stripper Name | Role | Phone | + [...] + + | 12/23/ | Telephone | [facility] | Sascha Mir, | Other (Medication | | 2014 | | NEUR[address]UR[address]ERY [address] | DO [address] | request) | | | | [address] [facility] | [address] [place], [place] | | | | | [place] | [id number] | | | | | [address] | | | | | | [phone] | | | +--------+ + + + [...] | | | | | | [place] [address] | | | | | | [phone] | | | | | | | | +--------+---------+ + + + documented as of this encounter Visit Diagnoses Not on filedocumented in this encounter"
--- OUTSIDE RECORDS SUMMARY | ~2019-08-08 | XMS | Encounter Summary ---
Demographics + + + | Address | [address] | | | [place] [address] | + + + | Home Phone [...] Author | [facility] | | | and [place]ana | + + + | Organization | [facility] | | | and [...] [place], [place] | | | | | [address] | | + + + + + | Pratibha Hester | ECON | Unknown | + | + + + + + | Demian Powell | ECON | Unknown | + | + + + + + Care Team Providers + +------+ + | Care Bias Cutting Machine Operator Vertical Name | Role | Phone | + +------+ + | Quentin Manriquez PA-C | PCP | | + +------+ + Encounter Details +--------+ + + + + | Date | Type | Department | Care Team | Description | +--------+ + + + + | 12/05/ | Hospital | [facility] | Sascha Mir, | Bilateral lumbar | | 2015 | Encounter | MED CTR | DO [address] | radiculopathy; HIP | | | | [employer] | [address] [place], [place] | PAIN, LEFT, CHRONIC; | | | | [address] [place] | [address] | Spondylolisthesis | | | | [place] [address] | | of lumbar region | | | | [phone] | | L5-S1; Pars defect | | [...] | | | | | | [place] [address] | | | | | | [phone] | | | | | | | [...]
--- OUTSIDE RECORDS SUMMARY | ~2019-08-08 | XMS | Encounter Summary ---
Demographics + + + | Address | [address] | | | [place] [address] | + + + | Home Phone | | + + + | Preferred Language | Unknown | + + + | Marital Status | Single | + + + | Gnosticism Affiliation | 1041 | + + + | Race | Unknown | + + + | Ethnic Group | Unknown | + + + Author + + + | Author | [facility] | | | and [place] | + + + | Organization | [facility] | | | and [place] [...] [place] | | | | | [address] | | + + + + + | Pratibha Hester | ECON | Unknown | + | + + + + + | Demian Powell | ECON | Unknown | + | + + + + + Care Team Providers + +------+ + | Care Call Center Agent Name | Role | Phone | [...] + + | 03/04/ | Telephone | [facility] | Sascha Mir, | Other (medication | | 2014 | | [address]UR[address] | DO [address] | refill questions) | | | | [address] [facility] [address] | [address] [place] [address] | | | | | [place] | [id number] | | | | | [address] | | | | | | [phone] | | | +--------+ + + + [...] | | | | | | [place] [address] | | | | | | [phone] | | | | | | | | +--------+---------+ + + + documented as of this encounter Visit Diagnoses Not on filedocumented in this encounter"
--- OUTSIDE RECORDS SUMMARY | ~2019-08-08 | XMS | Encounter Summary ---
Demographics + + + | Address | [address] | | | [place] [address] | + + + | Home Phone [...] + + + | Author | [facility] | + + + | Organization | [facility] | + + + | Address | Unknown | + + + | Phone | Unavailable | + + + Support + + +---------+ + | Name | Relationship | Address | Phone | + + +---------+ + | Alisia Nina | ECON | Unknown | | + + +---------+ + Care Team Providers + +------+ + | Care Cinema Or Theatre Manager Name | Role | Phone | + +------+ + | Quentin Manriquez | PCP | | + +------+ + Reason for Visit + + + | Reason | Comments | + + + | Prescription | for ear infection | + + + Encounter Details +--------+ + + + + | Date | Type | Department | Care Team | Description | +--------+ + + + + | 04/16/ | Telephone | Otolaryngology | Guillen Armas, Windy | Prescription (for | | 2013 | | Otology Services at | MD [place] [address] | ear infection ) | | | | [facility] [address] | [address] | | | | [address] | [place], [place] | | | | | Mailcode: [address] | [address] | | | | | [facility] | [phone] | | | | | [place], [place] | | | | | | [address] | | | | | | [phone] | | | +--------+ + + + [...]
--- OUTSIDE RECORDS SUMMARY | ~2019-08-08 | XMS | Encounter Summary ---
Demographics + + + | Address | [address] | | | [place] [address] | + + + | Home Phone | | + + + | Preferred Language | Unknown | + + + | Marital Status | Single | + + + | Christianity Affiliation | 1041 | + + + | Race | Unknown | + + + | Ethnic Group | Unknown | + + + Author + + + | Author | [facility] | | | and [place] | + + + | Organization | [facility] [...] [place], [place] | | | | | [address] | | + + + + + | Pratibha Hester | ECON | Unknown | + | + + + + + | Demian Powell | ECON | Unknown | + | + + + + + Care Team Providers + +------+ + | Care Automatic Spreader Operator Name | Role | Phone | [...] 2016 | | [address]UR[address]UR[address] | [facility] [address] | | | | | [address] | [address] | | | | | [place] | [place] | | | | | [address] | [address] | | | | | [phone] | | | +--------+ + + + [...] | | | | | | [place] [address] | | | | | | [phone] | | | | | | | | +--------+---------+ + + + documented as of this encounter Visit Diagnoses Not on filedocumented in this encounter"
--- OUTSIDE RECORDS SUMMARY | ~2019-08-08 | XMS | Encounter Summary ---
Demographics + + + | Address | [address] | | | [place] [address] | + + + | Home Phone | | + + + | Preferred Language | Unknown | + + + | Marital Status | Single | + + + | Sikh Affiliation | 1041 | + + + | Race | Unknown | + + + | Ethnic Group | Unknown | + + + Author + + + | Author | [facility] | | | and [place] | + + + | Organization | [facility] | | | and [place] | + + + | Address | Unknown | + + + | Phone | Unavailable | + + + Support + + + + + | Name | Relationship | Address | Phone | + + + + + | Uche Nina | ECON | [address] | | | | | [place] | | | | | [address] | | + + + + + | Pratibha Hester | ECON | Unknown | + | + + + + + | Demian Powell | ECON | Unknown | + | + + + + + Care Team Providers + +------+ + | Care System Planning Engineer Name | Role | Phone | [...] | | | spondylolist | | [address] | | | | | hesis | | [place], | | | | | Acquired | | [place] [address] | | | | | spondylolist | | Phone: | | | | | hesis | | [phone] | | | | | Procedures | | Fax: | | | | | [place] | | [phone] | | | | | POST/POSTERO | [...] + + | 12/12/ | Hospital | [facility] | Sascha Mir, | Acquired | | 2014 | Encounter | MED CTR XRAY [address] | DO [address] | spondylolisthesis | | | | [place] | [address] [place], [place] | | | | | [place] [address] | [id number] | | | | | [phone] | | | +--------+ + + + [...] | | | | | | [place] [address] | | | | | | [phone] | | | | | | | [...] + + documented in this encounter Results ONRAH Navarro Stats No Charge (12/12/2014 12:10 PM PDT) + + | Specimen | + + | | + + + + + | Narrative | Performed At | + + + | No Radiologist interpretation, please see Chart Review. | [facility] | | | TERI | | | [facility] | | | - IMAGING | + + + + + + + + | Performing | Address | City/State/Zipcode | Phone Number | | Organization | | | | + + + + + | [facility] | [address] | [place] | [phone] | | [facility] | | [address] | | | - IMAGING | | | | + + + + + documented in this encounter Visit Diagnoses + + | Diagnosis | + + | Acquired spondylolisthesis | + + documented in this encounter"
--- OUTSIDE RECORDS SUMMARY | ~2019-08-08 | XMS | Encounter Summary ---
Demographics + + + | Address | [address] | | | [place] [address] | + + + | Home Phone [...] Team Providers + +------+ + | Care Radio Machinist Name | Role | Phone | + [...] | Morbid | Dipesh Gross, | [address] | | | | | obesity | AGACNP [address] | | | | | (HCC) | [address] | Mailcode: | | | | | Procedures | [place], | [facility] | | | | | PHYSICAL | [place] | for Health | | | | | THERAPY | [address] | and Healing, | | | | | REFERRAL | Phone: | Building 1, | | | | | | [phone] | [address] | | | | | | Fax: | [place], [place] | | | | | | [phone] | [address] | | | | | | | Phone: | | | | | | | [phone] | | | | | | | Fax: | | | | | | | [phone] | +--------+--------+ + + + + Encounter Details +--------+---------+ + + + | Date | Type | Department | Care Team | Description | +--------+---------+ + + + | 06/27/ | Office | [facility] | Edith Gil, | Morbid obesity (HCC) | | 2019 | Visit | Therapy Services at | PT,DPT [address] [facility] | (Primary Dx) | | | | [facility] | [address] | | | | | [address] | [place], [place] | | | | | Mailcode: [place] | [address] | | | | | for Health and | | | | | | [address], [address] | | | | | | [place] [address] | | | | | | [phone] | | | +--------+---------+ + + + [...] children or pets 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 Discard remaining half jug. Indications: Bowel [...] person here for pre-op appointment for [facility] surgical program. Activity limitations and participation [...] 06/27/2019 Shoulder Elevation 12/10 5/5 Shoulder Abduction 5/5 5/5 Elbow Flexion [...] Log roll technique Strength training: Access Code: [email or web address] URL: [email or web address] Date: 06/27/2019 Prepared by: Dennise Gil Exercises [...] Moderate - Moderate complexity Complexity: Moderate - 82246 The patient requires services that can be safely and effectively performed only by a qualif ied therapist to address the aforementioned and highlighted problems and goals. Goals discussed and agreed upon with patient and/or family. Individual cultural and social needs addressed. Rehab Potential: Good, if [place] carries through with home exercise program. This note is to serve as the discharge summary if the patient fails to attend further Physi jigar Therapy appointments or contact the therapist regarding any change in their status. Edith Gil, PT,DPT [facility]YSICAL [facility]ERAPY SERVICES AT [facility] Scheduled Appointment time: 11:45 AM The patient was seen for a total of 40 minutes of treatment time. 40 minutes was in direct contact care as described above and on completed flow sheets. Treatment Interventions duration in minutes: Procedure:Physical Therapy Evaluation Authorization information for first visit and progress reports Procedure Codes: Re-evaluation 43668, Therapeutic Exercise 69789, Manual Therapy 69551, Th erapeutic Activities 23300, Neuromuscular Reeducation 77775, Gait Training 26571 and Self-ca re ADL 53970 Minutes per session: 45 Total number of visits: 1 Frequency: discharge Duration: n/a (must exceed or match Medicare service period request) Service period from: 06/27/2019 to: - (Medicare must match duration or be no greater than 90 days if proposed duration is greater than 3 months) Start of care: 06/27/2019 Referral information Authorizing Provider: DIPESH RIDLEY [[id number]] Onset/Referral Date: 05/03/19 Primary/Referral Diagnosis: No diagnosis found. Next progress report 08/26/2019 Insurance: Payor: [employer] MEDICAID / Plan: [facility] [place] / Product Type: Medicaid / [...]
--- OUTSIDE RECORDS SUMMARY | ~2019-08-08 | XMS | Encounter Summary ---
Demographics + + + | Address | [address] | | | [place] [address] | + + + | Home Phone | | + + + | Preferred Language | Unknown | + + + | Marital Status | Single | + + + | Holiness Affiliation | 1041 | + + + | Race | Unknown | + + + | Ethnic Group | Unknown | + + + Author + + + | Author | [facility] | | | and [place] | + + + | Organization | [facility] [...] [place] | | | | | [address] | | + + + + + | Pratibha Hester | ECON | Unknown | + | + + + + + | Demian Powell | ECON | Unknown | + | + + + + + Care Team Providers + +------+ + | Care Color Checker Roving Or Yarn Name | Role | Phone | + [...] | | | | Displacement | PA-C [address] | [address] | | | | | of lumbar | CONFEDERATED | [address] | | | | | intervertebr | [place] | [place] | | | | | al disc | [place], | [address] Phone: | | | | | without | [place] [address] | [phone] | | | | | myelopathy | Phone: | Fax: | | | | | Procedures | [phone] | [phone] | | | | | [place] OFFICE | Fax: | | | | | | CONSULTATION | [phone] | | | | | | NEW/ESTAB [...] + + | 09/26/ | Office | [facility] | Sascha Mri, | Spondylolisthesis of | | 2015 | Visit | NEUR[address]URGERY [address] | DO [address] | lumbar region | | | | [address] | [address] [place] | (Primary Dx); Lumbar | | | | [place] | [address] | stenosis; Lumbar | | | | [address] | | radicular pain; | | | | [phone] | | Midline low back | | [...] m the original. Sascha Mir DO [address] [facility], [address] [place] [address] FAX: NEUROSURGERY HISTORY AND PHYSICAL EXAMINATION CHIEF [...] has no apparent deficits with short or usp memory. CRANIAL NERVES: II: Acuity is intact. [...] Intrinsics 5 5 Ulnar Intrinsics 5 5 Pyridine Recovery Operator Strength 5 5 Hip Flexion 5 5 [...] Trochanteric bursitis Anemia Anxiety Asthma Heart attack ([facility]) 2009 Migraine Ulcer of the stomach and [...] to presenting for surgery. ELECTRONICALLY SIGNED BY: Sashca Mir DO, 09/26/2014 10:56 documented in this encounter Plan of Treatment +--------+---------+ + + + | Date | Type | Specialty | Care Team | Description | +--------+---------+ + + + | 09/25/ | Office | Cardiology | Rudy Osullivan, | | | 2019 | Visit | | MD [address] | | | | | | [place], | | | | | | [place] [address] | | | | | | [phone] | | | | | | | [...]
--- OUTSIDE RECORDS SUMMARY | ~2019-08-08 | XMS | Encounter Summary ---
Demographics + + + | Address | [address] | | | [place] [address] | + + + | Home Phone [...] + + + | Author | [facility] | | | and [place] | + + + | Organization | [facility] | | | and [place] [...] [place], [place] | | | | | [address] | | + + + + + | Pratibha Hester | ECON | Unknown | + | + + + + + | Demian Powell | ECON | Unknown | + | + + + + + Care Team Providers + +------+ + | Care Rafter Cutting Machine Operator Name | Role | Phone | + +------+ + | Jannette Boyle PA-C | PCP | | + +------+ + Encounter Details +--------+ + + + + | Date | Type | Department | Care Team | Description | +--------+ + + + + | 10/21/ | Abstract | [facility] | Albaro Bojorquez | | | 2016 | | NEUROSURGERY [address] | HUMA Bowling [address] | | | | | [address] | [address] | | | | | [place] | [place] | | | | | [address] | [address] | | | | | [phone] | | | +--------+ + + + [...] | | | | | | [place] [address] | | | | | | [phone] | | | | | | | | +--------+---------+ + + + documented as of this encounter Visit Diagnoses Not on filedocumented in this encounter"
--- OUTSIDE RECORDS SUMMARY | ~2019-08-08 | XMS | Encounter Summary ---
Demographics + + + | Address | [address] | | | [place] [address] | + + + | Home Phone | | + + + | Preferred Language | Unknown | + + + | Marital Status | Single | + + + | Gnosticist Affiliation | CAT | + + + [...] Team Providers + +------+ + | Care Meteorologist Liaison Name | Role | Phone | + [...] | +--------+ + + + + | 05/14/ | Abstract | [facility] | Clinic, Surgery | Medical Records | | 2019 | | [place] [facility] [address] | | Review | | | | [address] | | | | | | Mailcode: [place] | | | | | | [facility] and | | | | | | [facility] [address] | | | | | | [place], [place] | | | | | | [address] | | | | | | [phone] | | | +--------+ + + + [...]
--- OUTSIDE RECORDS SUMMARY | ~2019-08-08 | XMS | Encounter Summary ---
Demographics + + + | Address | [address] | | | [place] [address] | + + + | Home Phone | | + + + | Preferred Language | Unknown | + + + | Marital Status | Single | + + + | Jainism Affiliation | CAT | + + + | Race | Unknown | + + + | Ethnic Group | Not or | + + + Author + + + | Author | [facility] | + + + | Organization | [facility] | + + + | Address | Unknown | + + + | Phone | Unavailable | + + + Support + + +---------+ + | Name | Relationship | Address | Phone | + + +---------+ + | Alisia Nina | ECON | Unknown | | + + +---------+ + Care Team Providers + +------+ + | Care Greenskeeper Name | Role | Phone | + +------+ + | Quentin Manriquez | PCP | | + +------+ + Encounter Details +--------+ + + + + | Date | Type | Department | Care Team | Description | +--------+ + + + + | 05/13/ | Telephone | Otolaryngology | Windy Mclean | | | 2015 | | Otology Services at | MD Loli [address] | | | | | [facility] [address] | | | | | [address] | [place], [place] | | | | | Mailcode: [place] | [address] | | | | | [facility] | [phone] | | | | | [place], [place] | | | | | | [address] | | | | | | [phone] | | | +--------+ + + + [...]
--- OUTSIDE RECORDS SUMMARY | ~2019-08-08 | XMS | Encounter Summary ---
Demographics + + + | Address | [address] | | | [place] [address] | + + + | Home Phone [...] [facility] | | | and [place] | + + + | Organization | [facility] | | | and [...] [place], [place] | | | | | [address] | | + + + + + | Pratibha Hester | ECON | Unknown | + | + + + + + | Demian Powell | ECON | Unknown | + | + + + + + Care Team Providers + +------+ + | Care Senior Occupational Therapist Name | Role | Phone | + [...] [place] | | | | | [address] | [address] | | | | | [phone] | | | +--------+ + + + [...] | | | | | | [place] [address] | | | | | | [phone] | | | | | | | | +--------+---------+ + + + documented as of this encounter Visit Diagnoses Not on filedocumented in this encounter"
--- OUTSIDE RECORDS SUMMARY | ~2019-08-08 | XMS | Encounter Summary ---
Demographics + + + | Address | [address] | | | [place] [address] | + + + | Home Phone [...] + | Author | [facility] | | | and [place] | + + + | Organization | [facility] | | | [...] [place], [place] | | | | | [address] | | + + + + + | Pratibha Hester | ECON | Unknown | + | + + + + + | Demian Powell | ECON | Unknown | + | + + + + + Care Team Providers + +------+ + | Care Vegetable Cook Name | Role | Phone | + [...] + + | 10/03/ | Telephone | [facility] | Denilson Jorge | Other (Referral to | | 2012 | | [address] | MD Denice [address] | office-Auth #) | | | | [address] | [address] [place] | | | | | [place] | [address] | | | | | [address] | [phone] | | | | | [phone] | | | +--------+ + + + [...] [place], | | | | | | [place] [address] | | | | | | [phone] | | | | | | | | +--------+---------+ + + + documented as of this encounter Visit Diagnoses Not on filedocumented in this encounter"
--- OUTSIDE RECORDS SUMMARY | ~2019-08-08 | XMS | Encounter Summary ---
Demographics + + + | Address | [address] | | | [place] [address] | + + + | Home Phone [...] + | Author | [facility] | | | and [place] | + + + | Organization | [facility] | | | and [...] [place] | | | | | [address] | | + + + + + | Pratibha Hester | ECON | Unknown | + | + + + + + | Demian Powell | ECON | Unknown | + | + + + + + Care Team Providers + +------+ + | Care Water Maintenance Supervisor Name | Role | Phone | [...] | | | | Displacement | PA-C [address] | [address] | | | | | of lumbar | CONFEDERATED | [address] | | | | | intervertebr | SINA | [place] | | | | | al disc | [place], | [address] Phone: | | | | | without | [place] [address] | [phone] | | | | | myelopathy | Phone: | Fax: | | | | | Procedures | [phone] | [phone] | | | | | [place] OFFICE | Fax: | | | | | | CONSULTATION | [phone] | | | | | | NEW/ESTAB [...] + + | 09/26/ | Office | [facility] | Sascha Mir, | Spondylolisthesis of | | 2015 | Visit | NEUR[address]URGERY [address] | DO [address] | lumbar region | | | | [address] | [address] [place] | (Primary Dx); Lumbar | | | | [place] | [address] | stenosis; Lumbar | | | | [address] | | radicular pain; | | | | [phone] | | Midline low back | | [...] m the original. Sascha Mir DO [address] [facility], [address] [place] [address] FAX: NEUROSURGERY HISTORY AND PHYSICAL EXAMINATION CHIEF [...] has no apparent deficits with short or shelter memory. CRANIAL NERVES: II: Acuity is intact. [...] Intrinsics 5 5 Ulnar Intrinsics 5 5 Bow Tacker Strength 5 5 Hip Flexion 5 5 [...] Anemia Anxiety Asthma Heart attack ([facility]) 2009 Migraine Ulcer of the stomach and [...] | | | | | | [place] [address] | | | | | | [phone] | | | | | | | [...]
--- OUTSIDE RECORDS SUMMARY | ~2019-08-08 | XMS | Encounter Summary ---
Demographics + + + | Address | [address] | | | [place] [address] | + + + | Home Phone [...] + + + | Author | [facility] | + + + | Organization | [facility] | + + + | Address | Unknown | + + + | Phone | Unavailable | + + + Support + + +---------+ + | Name | Relationship | Address | Phone | + + +---------+ + | Alisia Nina | ECON | Unknown | | + + +---------+ + Care Team Providers + +------+ + | Care Inspector Aligning Name | Role | Phone | + [...] Review | | | | [address] | | | | | | [address] | | | | | | Mailcode: [address] | | | | | | [place] | | | | | | [address] [place], [place] | | | | | | [address] | | | | | | [phone] | | | +--------+ + + + [...]
--- OUTSIDE RECORDS SUMMARY | ~2019-08-08 | XMS | Encounter Summary ---
Demographics + + + | Address | [address] | | | [place] [address] | + + + | Home Phone | | + + + | Preferred Language | Unknown | + + + | Marital Status | Single | + + + | Amish Affiliation | 1041 | + + + | Race | Unknown | + + + | Ethnic Group | Unknown | + + + Author + + + | Author | [facility] | | | and [place] | + + + | Organization | [facility] | | | and [place] [...] [place] | | | | | [address] | | + + + + + | Pratibha Hester | ECON | Unknown | + | + + + + + | Demian Powell | ECON | Unknown | + | + + + + + Care Team Providers + +------+ + | Care Uniform Designer Name | Role | Phone | + +------+ + | Quentin Manriquez PA-C | PCP | | + +------+ + Reason for Visit +--------+ + | Reason | Comments | +--------+ + | Other | called patient to inform her that I mailed her prescriptions | | | certified mail today. | +--------+ + Encounter Details +--------+ + + + + | Date | Type | Department | Care Team | Description | +--------+ + + + + | 01/02/ | Telephone | [facility] | Sascha Mir, | Other (called | | 2014 | | NEUROSUR[address]ERY [address] | DO [address] | patient to inform | | | | [address] | [address] [place] | her that I mailed | | | | [place] | [address] | her prescriptions | | | | [address] | | certified mail | | | | [phone] | | today.) | +--------+ + + + + Social [...] | | | | | | [place] [address] | | | | | | [phone] | | | | | | | | +--------+---------+ + + + documented as of this encounter Visit Diagnoses Not on filedocumented in this encounter"
--- OUTSIDE RECORDS SUMMARY | ~2019-08-08 | XMS | Clinical Summary ---
Demographics + + + | Address | [address] | | | [place] [address] | + + + | Home Phone | | + + + | Preferred Language | Unknown | + + + | Marital Status | Single | + + + | Buddhist Affiliation | Unknown | + + + | Race | Unknown | + + + | Ethnic Group | Unknown | + + + Author + + + | Author | [facility] (Historical as of | | | 03-24-19) | + + + | Organization | [facility] (Historical as of | | | 03-24-19) | + + + | Address | Unknown | + + + | Phone | Unavailable | + + + Support + + +---------+ + | Name | Relationship | Address | Phone | + + +---------+ + | Message,Detailed | ECON | Unknown | | + + +---------+ + | Ana Maria Powell | ECON | Unknown | | + + +---------+ + Care Team Providers + +------+ + | Care Apparel Designer Name | Role | Phone | + +------+ + | Jannette Boyle PA-C | PP | | + +------+ + Allergies No Known Allergies Current Medications + + +--------+---------+------+------+-------+ | Prescription | Sig. | Disp. | Refills | Star | End | Statu | | | | | | t | Date | s | | | | | | Date | | | + + +--------+---------+------+------+-------+ | loratadine | Take 10 mg by mouth | | | | | Activ | | (CLARITIN) 10 MG | daily. | | | | | e | | tablet | | | | | | | + + +--------+---------+------+------+-------+ | ondansetron | Take 4 mg by mouth 3 | | | | | Activ | | (ZOFRAN) 4 MG tablet | (three) times daily | | | | | e | | | as needed for | | | | | | | | Nausea. | | | | | | + + +--------+---------+------+------+-------+ | lisinopril | Take 10 mg by mouth | | | | | Activ | | (ZESTRIL) 10 MG | daily. | | | | | e | | tablet | | | | | | | + + +--------+---------+------+------+-------+ | ferrous sulfate, | Take 65 mg of iron | | | | | Activ | | 65 FE, 324 (65 FE) | by mouth 3 (three) | | | | | e | | MG EC tablet | times daily with | | | | | | | | meals. | | | | | | + + +--------+---------+------+------+-------+ | cholecalciferol | Take 1,000 Units by | | | | | Activ | | (VITAMIN D-3) 1000 | mouth daily. | | | | | e | | UNITS tablet | | | | | | | + + +--------+---------+------+------+-------+ | montelukast | Take 10 mg by mouth | | | | | Activ | | (SINGULAIR) 10 MG | nightly. | | | | | e | | tablet | | | | | | | + + +--------+---------+------+------+-------+ | naproxen | Take 250 mg by mouth | | | | | Activ | | (NAPROSYN) 250 MG | 2 (two) times daily | | | | | e | | tablet | with meals. | | | | | | + + +--------+---------+------+------+-------+ | TRI-RAJ | APPLY TO CLEAN DRY | 30 g | 1 | 11/2 | | Activ | | 0.01-4-0.05 % | SKIN AT BEDTIME, | | | 6/20 | | e | | CREAIndications: | AVOIDING EYE AREA, | | | 17 | | | | [place] | FOR 8 WEEKS IN A | | | | | | | | ROW. REST 8 WEEKS | | | | | | | | AND MAY REPEAT | | | | | | | | NEEDED FOR DARKENING | | | | | | + + +--------+---------+------+------+-------+ Active Problems No known active problems Social History + +-------+ +--------+------+ | Tobacco [...] + + + | Blood Pressure | - | - | + + + + | Pulse | - | - | + + + + | Temperature | - | - | + + + + | Respiratory Rate | - | - | + + + + | Oxygen Saturation | - | - | + + + + | Inhaled Oxygen | - | - | | Concentration | | | + + + + | Weight | 117.5 kg (259 lb) | 06/21/2016 3:07 PM PST | + + + + | Height | 167.6 cm (5' 6") | 06/21/2016 3:07 PM PST | + + + + | Body Mass Index | 41.8 | 06/21/2016 3:07 PM PST | + + + + Plan [...] filefrom Last 3 Months Insurance + +--------+ +------+-------+ + | Payer | Benefi | Subscriber | Type | Phone | Address | | | t Plan | ID | | | | | | / | | | | | | | Group | | | | | + +--------+ +------+-------+ + | MEDICAID | [place] | [id number] | | | [address] | | | N | | | | [place] | | | [place] | | | | [address] | | | COUNSELING CENTER MANAGER | | | | | + +--------+ +------+-------+ + + +--------+ +--------+ + + | Guarantor Name | Accoun | Relation to | Date | Phone | Billing Address | | | t Type | Patient | of | | | | | | | | | | + +--------+ +--------+ + + | ANA MARIA TURCIOS | Person | Self [birth year] Home: | [address] | | | al/Fam | | 1970 | [phone] | [place] [address] | | | neil | | | 2048 | | + +--------+ +--------+ + +
--- OUTSIDE RECORDS SUMMARY | ~2019-08-08 | XMS | Encounter Summary ---
Demographics + + + | Address | [address] | | | [place] [address] | + + + | Home Phone [...] Providers + +------+ + | Care Radio Engineering Teacher Name | Role | Phone | + +------+ + | Gracie Lewis PA-C | PCP | | + +------+ + Encounter Details +--------+ + + + + | Date | Type | Department | Care Team | Description | +--------+ + + + + | 03/07/ | Transcribe | [facility] | Transcribe | | | 2019 | Orders | [facility] [address] | Encounter, Provider, | | | | | [address]vin [address] Mailcode: | [address] | | | | | [address] [place] for | [place] [address] | | | | | [facility] He[facility], | | | | | | [address] | | | | | | [place], [place] | | | | | | [address] | | | | | | [phone] | | | +--------+ + + + [...] of this encounter Plan of Treatment + + [...]
--- OUTSIDE RECORDS SUMMARY | ~2019-08-08 | XMS | Encounter Summary ---
Demographics + + + | Address | [address] | | | [place] [address] | + + + | Home Phone [...] | Author | [facility] | | | and [place] | + + + | Organization | [facility] | | | and [place] | + + + | Address | Unknown | + + + | Phone | Unavailable | + + + Support + + + + + | Name | Relationship | Address | Phone | + + + + + | Uche Turcios | ECON | [address] | | | | | [place], [place] | | | | | [address] | | + + + + + | Pratibha Hester | ECON | Unknown | + | + + + + + | Ana Maria Powell | ECON | Unknown | + | + + + + + Care Team Providers + +------+ + | Care Deck Supervisor Name | Role | Phone | [...] Closed | | Radiology | Diagnoses | Jorge, | [facility] | | | | | Back pain | Denilson F, | Imaging [address] | | | | | Procedures | MD [address] | | | | | MRI Lumbar | [address] | [address] | | | | | Spine wo | [place], | [place], [place] | | | | | Contrast | [place] [address] | [address] | | | | | | Phone: | Phone: | | | | | | [phone] | [phone] | | | | | | [phone] Fax: | Fax: | | | | | | | | | | | | | [phone] | | +--------+--------+ + + + + Encounter Details +--------+ + + + + | Date | Type | Department | Care Team | Description | +--------+ + + + + | 09/08/ | Hospital | [facility] | Denilson Jorge | Back pain | | 2012 - | Encounter | MED CTR XRAY [address] | F, [address] | | | | | [place] | [place], [place] | | | 09/10/ | | [place] [address] | [address] | | | 2012 | | [phone] | [phone] | | | | | | | [...] + + + +---------+ + + | albuterol | Inhale 2 puffs into | | 0 | | | | (PROVENTIL,VENTOLIN) | the lungs every 4 | | | | 5 | | 90 MCG/ACT inhaler | hours as needed. | | | | | + + + +---------+ + + | ALBUTEROL SULFATE | NEBU; 1-2 puffs | | 0 | 04/21/20 | | | IN | every 3-4 hours as | | | 12 | 7 | | | needed | | | | | + + + +---------+ + + | alprazolam (XANAX) | Take 1 mg by mouth | | 0 | | | | 1 MG tablet | Daily. | | | | 3 | + + + +---------+ + + | aspirin 81 mg EC | Take 81 mg by mouth | | 0 | | | | tablet | Daily. | | | | 5 | + + + +---------+ + + | ASPIRIN PO | SUPP | | 0 | 04/21/20 | | | | | | | 12 | 3 | + + + +---------+ + + | CIMETIDINE PO | TABS | | 0 | 04/21/20 | | | | | | | 12 | 5 | + + + +---------+ + + | ferrous sulfate | Take 325 mg by mouth | | 0 | | | | 325 mg tablet | 2 times daily (with | | | | 5 | | | breakfast & | | | | | | | dinner). | | | | | + + + +---------+ + + | | Take 1 tablet by | | 0 | | | | HYDROcodone-acetamin | mouth every 6 hours | | | | 5 | | ophen (NORCO) | as needed. | | | | | | 7.5-325 mg per | | | | | | | tablet | | | | | | + + + +---------+ + + | | TABS | | 0 | 04/21/20 | | | Hydrocodone-Acetamin | | | | 12 | 3 | | ophen (VICODIN PO) | | | | | | + + + +---------+ + + | ibuprofen | Take 800 mg by mouth | | 0 | | | | (ADVIL,MOTRIN) 800 | 3 times daily as | | | | 3 | | MG tablet | needed. | | | | | + + + +---------+ + + | IRON PO | TABS | | 0 | 04/21/20 | | | | | | | 12 | 5 | + + + +---------+ + + | lisinopril | Take 2.5 mg by mouth | | 0 | | | | (PRINIVIL, ZESTRIL) | Daily. | | | | 7 | | 10 mg tablet | | | | | | + + + +---------+ + + | Loratadine | TABS | | 0 | 04/21/20 | | | (CLARITIN PO) | | | | 12 | 3 | + + + +---------+ + + | metFORMIN | 1-2 tablets daily | | 0 | 04/21/20 | | | (GLUCOPHAGE) 500 mg | | | | 12 | 3 | | tablet | | | | | | + + + +---------+ + + | methocarbamol | Take 750 mg by mouth | | 0 | | | | (ROBAXIN) 750 mg | 3 times daily as | | | | 3 | | tablet | needed. | | | | | + + + +---------+ + + | methocarbamol | Take 750 mg by mouth | | 0 | 04/21/20 | | | (ROBAXIN) 750 mg | 3 times daily. | | | 12 | 3 | | tablet | | | | | | + + + +---------+ + + | Multiple Vitamin | Take by mouth | | 0 | | | | (MULTIVITAMIN PO) | Daily. | | | | 5 | + + + +---------+ + + | promethazine | Take 25 mg by mouth | | 0 | | | | (PHENERGAN) 25 mg | Daily as needed. | | | | 5 | | tablet | | | | [...] | | | | | | [place] [address] | | | | | | [phone] | | | | | | | | +--------+---------+ + + + documented as of this encounter Procedures + +--------+ + + + | Procedure Name | Priori | Date/Time | Associated Diagnosis | Comments | | | ty | | | | + +--------+ + + + | MRI LUMBAR SPINE WO | Routin | 09/08/2012 | Back pain | Results for this | | CONTRAST | e | 12:34 PM | | procedure are in the | | | | PST | | results section. | + +--------+ + + + documented in this encounter Results MRI Lumbar Spine wo Contrast (09/08/2012 12:34 PM PST) + + | Specimen | + + | | + + + + + | Narrative | Performed At | + + + | [facility] | [facility] | | Department [facility] [address] [place] | [facility] | | [ rep ct [address]] [ rep ct [facility] | | st zip] Signed | - IMAGING | | | | | Patient Name: ANA MARIA TURCIOS Physician: | | | ARRE.[birth year] : 1970 Age: 42 Sex: F Unit #: [id number] | | | Exam Date: 09/08/12 Location: [facility] | | | Report #: [id number] Page: | | | %(RAD)RES..mtdd.print.filter("pg") of %(RAD) | | | RES..mtdd.print.filter("tpg") | | | | | | Accession Number: [id number] | | | UNENHANCED MRI LUMBAR SPINE, [...] the previous | | | study from 2009. The imaged left ovary contains multiple cysts [...] Transcribed | | | Date/Time: 09/08/2012 12:56 Administrative Underwriter: | | | <<Signature on File>> | | | Jayden Wyatt | | | MD Rush09/09/12 0858 <Electronically signed by Jayden Beverly MD> | | | Jayden Beverly MD 09/08/12 1230 Administrative Underwriter: | | | Job1001 Iebfxwhigiogp04/01/13 1256 Denilson Jorge, | | | | | + + + + + + + + | Performing | Address | City/State/Zipcode | Phone Number | | Organization | | | | + + + + + | [facility] | [address] | [place] | [phone] | | [facility] | | [address] | | | - IMAGING | | | | + + + + + documented in this encounter Visit Diagnoses + + | Diagnosis | + + | Back pain Backache, unspecified | + + documented in this encounter
--- OUTSIDE RECORDS SUMMARY | ~2019-08-08 | XMS | Encounter Summary ---
Demographics + + + | Address | [address] | | | [place] [address] | + + + | Home Phone [...] + | Author | [facility] | | | and [place] | + + + | Organization | [facility] | | | and [place] [...] [place], [place] | | | | | [address] | | + + + + + | Pratibha Hester | ECON | Unknown | + | + + + + + | Demian Powell | ECON | Unknown | + | + + + + + Care Team Providers + +------+ + | Care Health Director Name | Role | Phone | [...] | | [place] | [place] [address] | | | | | [address] | [phone] | | | | | [phone] | | | +--------+--------+ + + + [...] | | | | | | [place] [address] | | | | | | [phone] | | | | | | | | +--------+---------+ + + + documented as of this encounter Visit Diagnoses Not on filedocumented in this encounter"
--- OUTSIDE RECORDS SUMMARY | ~2019-08-08 | XMS | Encounter Summary ---
Demographics + + + | Address | [address] | | | [place] [address] | + + + | Home Phone | | + + + | Preferred Language | Unknown | + + + | Marital Status | Single | + + + | Hinduism Affiliation | 1041 | + + + | Race | Unknown | + + + | Ethnic Group | Unknown | + + + Author + + + | Author | [facility] | | | and [place] | + + + | Organization | [facility] | | | and [place] [...] [place] | | | | | [address] | | + + + + + | Pratibha Hester | ECON | Unknown | + | + + + + + | Demian Powell | ECON | Unknown | + | + + + + + Care Team Providers + +------+ + | Care Auto Mechanics Instructor Name | Role | Phone | [...] + + | 02/14/ | Telephone | [facility] | Sascha Mir, | Other | | 2014 | | NEUROSURGERY [address] | DO [address] | | | | | [facility] | [address] [place], [place] | | | | | [place], [place] | [id number] | | | | | [address] | | | | | | [phone] | | | +--------+ + + + [...] | | | | | | [place] [address] | | | | | | [phone] | | | | | | | | +--------+---------+ + + + documented as of this encounter Visit Diagnoses Not on filedocumented in this encounter"
--- OUTSIDE RECORDS SUMMARY | ~2019-08-08 | XMS | Encounter Summary ---
Demographics + + + | Address | [address] | | | [place] [address] | + + + | Home Phone | | + + + | Preferred Language | Unknown | + + + | Marital Status | Single | + + + | Yazidism Affiliation | CAT | + + + [...] Team Providers + +------+ + | Care Wind Turbine Technician Name | Role | Phone | [...] | | | | [address] | [place], [place] | | | | | Mailcode: [address] | [address] | | | | | [facility] | [phone] | | | | | [place], [place] | | | | | | [address] | | | | | | [phone] | | | +--------+ + + + [...]
--- OUTSIDE RECORDS SUMMARY | ~2019-08-08 | XMS | Encounter Summary ---
Demographics + + + | Address | [address] | | | [place] [address] | + + + | Home Phone [...] | [facility] | | | and [place] | + + + | Organization | [facility] | | | and [...] [place], [place] | | | | | [address] | | + + + + + | Pratibha Hester | ECON | Unknown | + | + + + + + | Demian Powell | ECON | Unknown | + | + + + + + Care Team Providers + +------+ + | Care Psychiatric Nurse Name | Role | Phone | + +------+ + | Quentin Manriquez PA-C | PCP | | + +------+ + Encounter Details +--------+ + + + + | Date | Type | Department | Care Team | Description | +--------+ + + + + | 12/05/ | Hospital | [facility] | Sascha Mir, | Bilateral lumbar | | 2014 | Encounter | MED CTR XRAY [address] | DO [address] | radiculopathy; HIP | | | | [place] | [address] [place], [place] | PAIN, LEFT, CHRONIC; | | | | [place] [address] | [address] | Spondylolisthesis | | | | [phone] | | of lumbar region | | [...] | | | | | | [place] [address] | | | | | | [phone] | | | | | | | [...] exam . COMPARISON: None available. FINDINGS: | . TERI | | Heart size and mediastinal contours are within normal limits. The | [facility] | | lungs are clear, without [...] + | Cedric, Rad Results In - 12/06/2014 7:15 AM PDT [...] [facility] | [address] | [place] | [phone] | | [facility] | | [address] | | | - IMAGING | | [...]
--- OUTSIDE RECORDS SUMMARY | ~2019-08-08 | XMS | Encounter Summary ---
Demographics + + + | Address | [address] | | | [place] [address] | + + + | Home Phone | | + + + | Preferred Language | Unknown | + + + | Marital Status | Single | + + + | Yarsanism Affiliation | 1041 | + + + | Race | Unknown | + + + | Ethnic Group | Unknown | + + + Author + + + | Author | [facility] | | | and [place] | + + + | Organization | [facility] | | | and [place] | + + + | Address | Unknown | + + + | Phone | Unavailable | + + + Support + + + + + | Name | Relationship | Address | Phone | + + + + + | Uche Nina | ECON | [address] | | | | | [place], [place] | | | | | [address] | | + + + + + | Pratibha Hester | ECON | Unknown | + | + + + + + | Demian Powell | ECON | Unknown | + | + + + + + Care Team Providers + +------+ + | Care Stewardesses Teacher Name | Role | Phone | [...] | SR | | | | | [phone] | | | +--------+ + + + [...] | | | | | | [place] [address] | | | | | | [phone] | | | | | | | | +--------+---------+ + + + documented as of this encounter Visit Diagnoses Not on filedocumented in this encounter
--- OUTSIDE RECORDS SUMMARY | ~2019-08-08 | XMS | Encounter Summary ---
Demographics + + + | Address | [address] | | | [place] [address] | + + + | Home Phone [...] Author | [facility] | | | and [place] | + + + | Organization | [facility] | | | and [place] [...] [place], [place] | | | | | [address] | | + + + + + | Pratibha Hester | ECON | Unknown | + | + + + + + | Demian Powell | ECON | Unknown | + | + + + + + Care Team Providers + +------+ + | Care Lead Java Software Engineer Name | Role | Phone [...] | | [place] | [place] [address] | | | | | [address] | [phone] | | | | | [phone] | | | +--------+--------+ + + + [...] | | | | | | [place] [address] | | | | | | [phone] | | | | | | | | +--------+---------+ + + + documented as of this encounter Visit Diagnoses Not on filedocumented in this encounter"
--- OUTSIDE RECORDS SUMMARY | ~2019-08-08 | XMS | Encounter Summary ---
Demographics + + + | Address | [address] | | | [place] [address] | + + + | Home Phone | | + + + | Preferred Language | Unknown | + + + | Marital Status | Single | + + + | Scientology Affiliation | 1041 | + + + | Race | Unknown | + + + | Ethnic Group | Unknown | + + + Author + + + | Author | [facility] | | | and [place] | + + + | Organization | [facility] | | | and [...] [place], [place] | | | | | [address] | | + + + + + | Pratibha Hester | ECON | Unknown | + | + + + + + | Demian Powell | ECON | Unknown | + | + + + + + Care Team Providers + +------+ + | Care Sifter Operator Name | Role | Phone | [...] | +--------+ + + + + | 02/25/ | Telephone | [facility] | Sascha Mir, | Medication Refill | | 2014 | | [address]UR[address] | DO [address] | | | | | [facility] | [address] [place], [place] | | | | | [place] | [address] | | | | | [address] | | | | | | [phone] | | | +--------+ + + + [...] | | | | | | [place] [address] | | | | | | [phone] | | | | | | | | +--------+---------+ + + + documented as of this encounter Visit Diagnoses + + | Diagnosis | + + | Nausea - Primary Nausea alone | + + documented in this encounter"
--- OUTSIDE RECORDS SUMMARY | ~2019-08-08 | XMS | Encounter Summary ---
Demographics + + + | Address | [address] | | | [place] [address] | + + + | Home Phone | | + + + | Preferred Language | Unknown | + + + | Marital Status | Single | + + + | Samaritan Affiliation | 1041 | + + + | Race | Unknown | + + + | Ethnic Group | Unknown | + + + Author + + + | Author | [facility] | | | and [place] | + + + | Organization | [facility] | | [...] [place] | | | | | [address] | | + + + + + | Pratibha Hester | ECON | Unknown | + | + + + + + | Demian Powell | ECON | Unknown | + | + + + + + Care Team Providers + +------+ + | Care Data Security Coordinator Name | Role | Phone | + +------+ + | Quentin Manriquez PA-C | PCP | | + +------+ + Reason for Visit + + + | Reason | Comments | + + + | Medication Problem | | + + + Encounter Details +--------+ + + + + | Date | Type | Department | Care Team | Description | +--------+ + + + + | 03/31/ | Telephone | [facility] | Sascha Mir, | Medication Problem | | 2014 | | [address] | DO [address] | | | | | [facility] [facility] | [address] [place], [place] | | | | | [place] | [id number] | | | | | [address] | | | | | | [phone] | | | +--------+ + + + [...] | | | | | | [place] [address] | | | | | | [phone] | | | | | | | | +--------+---------+ + + + documented as of this encounter Visit Diagnoses Not on filedocumented in this encounter"
--- OUTSIDE RECORDS SUMMARY | ~2019-08-08 | XMS | Encounter Summary ---
Demographics + + + | Address | [address] | | | [place] [address] | + + + | Home Phone | | + + + | Preferred Language | Unknown | + + + | Marital Status | Single | + + + | Catholic Affiliation | 1041 | + + + | Race | Unknown | + + + | Ethnic Group | Unknown | + + + Author + + + | Author | [facility] | | | and [place] | + + + | Organization | [facility] | | | and [...] [place] | | | | | [address] | | + + + + + | Pratibha Hester | ECON | Unknown | + | + + + + + | Demian Powell | ECON | Unknown | + | + + + + + Care Team Providers + +------+ + | Care Stone Crusher Operator Name | Role | Phone | [...] + | 05/25/ | Refill | [facility] | Sascha Mir, | Medication Refill | | 2014 | | [address] | DO [address] | | | | | [address] | [address] [place], [place] | | | | | [place] | [address] | | | | | [address] | | | | | | [phone] | | | +--------+--------+ + + + [...] | | | | | | [place] [address] | | | | | | [phone] | | | | | | | | +--------+---------+ + + + documented as of this encounter Visit Diagnoses Not on filedocumented in this encounter"
--- OUTSIDE RECORDS SUMMARY | ~2019-08-08 | XMS | Encounter Summary ---
Demographics + + + | Address | [address] | | | [place] [address] | + + + | Home Phone [...] Team Providers + +------+ + | Care Wafer Polishing Lead Worker Name | Role | Phone | + +------+ + | Gracie Lewis PA-C | PCP | | + +------+ + Encounter Details +--------+ + + + + | Date | Type | Department | Care Team | Description | +--------+ + + + + | 04/24/ | Abstract | [facility] | Clinic, Surgery | | | 2019 | | [facility] [address] | | | | | | [address] | | | | | | Mailcode: [facility] | | | | | | for [facility] and | | | | | | Healing, [address] | | | | | | [place], [place] | | | | | | [address] | | | | | | [phone] | | | +--------+ + + + [...]
--- OUTSIDE RECORDS SUMMARY | ~2019-08-08 | XMS | Encounter Summary ---
Demographics + + + | Address | [address] | | | [place] [address] | + + + | Home Phone [...] Team Providers + +------+ + | Care Recoil Spring Winder Name | Role | Phone | + [...]
--- OUTSIDE RECORDS SUMMARY | ~2019-08-08 | XMS | Encounter Summary ---
Demographics + + + | Address | [address] | | | [place] [address] | + + + | Home Phone [...] | Author | [facility] | | | and [place] | + + + | Organization | [facility] | | | and [...] [place] | | | | | [address] | | + + + + + | Pratibha Hester | ECON | Unknown | + | + + + + + | Demian Powell | ECON | Unknown | + | + + + + + Care Team Providers + +------+ + | Care Negative Restorer Name | Role | Phone | + [...] + + | 12/10/ | Telephone | [facility] | Sascha Mir, | Other (surgery | | 2015 | | NEUR[address]UR[address] | DO [address] | reminder ) | | | | [address] | [address] [place], [place] | | | | | [place] | [address] | | | | | [address] | | | | | | [phone] | | | +--------+ + + + [...] | | | | | | [place] [address] | | | | | | [phone] | | | | | | | | +--------+---------+ + + + documented as of this encounter Visit Diagnoses Not on filedocumented in this encounter"
--- OUTSIDE RECORDS SUMMARY | ~2019-08-08 | XMS | Clinical Summary ---
Demographics + + + | Address | [address] | | | [place] [address] | + + + | Home Phone [...] Author | [facility] | | | and Shaneana | + + + | Organization | [facility] | [...] [place], [place] | | | | | [address] | | + + + + + | Pratibha Hester | ECON | Unknown | + | + + + + + | Demian Pwoell | ECON | Unknown | + | + + + + + Care Team Providers + +------+ + | Care Direct Care Provider Name | Role | Phone | + [...] 0 | | | Activ | | 29826 units CAPS | mouth Daily. | | [...] LEFT, CHRONIC | | + + + Encounters +--------+--------+ + + + | Date | Type | Specialty | Care Team | Description | +--------+--------+ + + + | 06/20/ Refill | Dermatology | Char Duque | Medication Refill | | 2018 | | | GEORGE Wyatt | | +--------+--------+ + + + from Last 3 Months [...] | + + + + | INFLUENZA, [id number], | 08/05/2009 | | | UNSPECIFIED | [...] + | Mental illness | Sister | pierre | | | | | cody | | + + + + + | Seizures | Sister | | | + + + + + | Heart failure | Sister | | | + [...] kg (259 lb) | 06/21/2016 3:07 PM | | | | | PST | | + + + + + | Height | 167.6 cm (5' 6") | 06/21/2016 3:07 PM | | | | | PST | | + + + + + | Body Mass Index | 41.8 | 06/21/2016 3:07 PM | | | | | PST [...] | | | | | | [place] [address] | | | | | | [phone] | | | | | | | | +--------+---------+ + + + + + + + + | Health Maintenance | Due Date | Last Done | Comments | + + + + + | Vaccine: | | 07/07/2010 | | | Pneumococcal 19-64 | 7 | | | | (1 of - PPSV23) | | | | + + + + + | Vaccine: | | | | | Dtap/Tdap/Td (1 - | 2 | | | | Tdap) | | [...] | OSTEOTECH - | | 10/03/ | [id number] | | [id number]: Qty: 1 | | | OSTT | | 2020 | | | on 12/12/2014 by [place], | | | | | | /[id number] | | Sascha Armendariz DO at [facility] | | | | | | 2-039 | | [facility] | | | | | | /38-30 | | | | | | | | 12 | + +------+--------+ +--------+--------+--------+ | Graft Infuse Bone Kit Xxs - | | | SOFAMOR | | / | [id number] | | [id number]: Qty: 1 on | | | DANEK - DIV | | 2015 | 0 / | | 12/12/2014 by Sascha Mir | | | MEDTRONIC | | | /[id number] | | DO Kala at [facility] | | | - SFDK | | | [id number] | | [facility] | | | | | | | + +------+--------+ +--------+--------+--------+ | SpacerImplanted: Qty: 1 on | | Florist Helper | MEDTRONIC - | | 10/04/ | [id number] | | 12/12/2014 by Sascha Mir | | ior: | MEDT | | 3 | 9 / | | DO Kala at [facility] | | Spine | | | | /[id number] | | [facility] | | Lumbar | | | | 520 | + +------+--------+ +--------+--------+--------+ | Screw Amanda Solera 6.5x50mm - | | Florist Helper | SOFAMOR | | | [id number] | | [id number]: Qty: 1 on | | ior: | DANEK - DIV | | | [id number] | | 12/12/2014 by Sascha Mir | | Spine | [employer] | | | / / | | DO Kala at [facility] | | Lumbar | - SFDK | | | | | [facility] | | | | | | | + +------+--------+ +--------+--------+--------+ | Screw Amanda Solera 6.5x45mm - | | Florist Helper | SOFAMOR | | | [id number] | | [id number]: Qty: 1 on | | ior: | DANEK - DIV | | | [id number] | | 12/12/2014 by Sascha Mir | | Spine | [employer] | | | / / | | DO Kala at [facility] | | Lumbar | - SFDK | | | | | [facility] | | | | | | | + +------+--------+ +--------+--------+--------+ | Screw Mas G5 Slra 7.5x40 Cn - | | Florist Helper | SOFAMOR | | | [id number] | | [id number]: Qty: 1 | | ior: | DANEK - DIV | | | [id number] | | on 12/12/2014 by Clarke, | | Spine | [employer] | | | / / | | Sascha Armendariz DO at [facility] | | Lumbar | - SFDK | | | | | [facility] | | | | | | | + +------+--------+ +--------+--------+--------+ | Screw Amanda 8.5x40mm - | | Florist Helper | [employer]TRONIC - | | | [id number] | | [id number]: Qty: 1 on | | ior: | MEDT | | | [id number] | | 12/12/2014 by Sascha Mir | | Spine | | | | / / | | DO Kala at [facility] | | Lumbar | | | | | | [facility] | | | | | | | + +------+--------+ +--------+--------+--------+ | Set Scrw Ns G5 Brk Off Ti | | Florist Helper | SOFAMOR | | | [id number] | | 4.75 - [id number]: | | ior: | DANEK - DIV | | | 0 / / | | Qty: 4 on 12/12/2014 by | | Spine | [employer] | | | | | Sascha Mir DO at [facility] | | Lumbar | - [facility] | | | | | [facility] | | | | | | | | CENTER | | | | | | | + +------+--------+ +--------+--------+--------+ | Imp Spn Francis Ti Sext Ti 5.5x45 | | Florist Helper | SOFAMOR | | | [id number] | | - [id number]: Qty: 2 | | ior: | DANEK - DIV | | | [id number] / | | on 12/12/2014 by Clarke, | | Spine | [employer] | | | / | | Sascha Armendariz DO at [facility] | | Lumbar | - SFDK | | | | | [facility] | | | | | | | [...] | Cannulated Screw Cd Horizon | | Florist Helper | MEDTRONIC - | | | [id number] | | SoleraExplanted: Qty: 1 on | | ior: | MEDT | | | [id number] | | 12/12/2014 at [facility] | | Spine | | | | / / | | [facility] | | Lumbar | | | | [...] | [employer] | MODA | [id number] | | [phone] | | Medica | | MEDICAID HMO | HEALTH | | 015-Pr | 1 | | id | | | MDCD | | esent | | | | | | HMO [place] | | | | | | + +--------+ +--------+ +---------+--------+ | HEALTH | IHS | [id number] | 05/17/ | | | Indemn | | SERVICE | YELLOW | | 2012-P | | | ity | | | HAWK | | resent | | | | + +--------+ +--------+ +---------+--------+ | [employer] | MODA | [id number] | | [phone] | | Medica | | MEDICAID HMO | HEALTH | | 019-Pr | 1 | | id | | | MDCD | | esent | | | | | | HMO [place] | | | | | | + +--------+ +--------+ +---------+--------+ | [facility] | IHS | [id number] | 04/08/20 | | | Indemn | [...] | | al/Fam | | 1970 | [phone] | [place] [address] | | | neil | | | 8 (Home) | | + +--------+ +--------+ + + | Demian Nina | Person | Self | [birth year] | [address] | | | al/Fam | | 1970 | [phone] | [place] [address] | | | neil | | | 8 (Home) | | + +--------+ +--------+ + + Advance Directives + + + + + | Type | Date Recorded | Patient | Explanation | | | | Track Supervisor | | + + + + + | Power of | | | | | Pharmacovigilance Scientist | | | | + + + [...]
--- OUTSIDE RECORDS SUMMARY | ~2019-08-08 | XMS | Encounter Summary ---
Demographics + + + | Address | [address] | | | [place] [address] | + + + | Home Phone | | + + + | Preferred Language | Unknown | + + + | Marital Status | Single | + + + | Orthodox Affiliation | CAT | + + + | Race | Unknown | + + + | Ethnic Group | Not or | + + + Author + + + | Author | [facility] | + + + | Organization | [facility] | + + + | Address | Unknown | + + + | Phone | Unavailable | + + + Support + + +---------+ + | Name | Relationship | Address | Phone | + + +---------+ + | Alisia Nina | ECON | Unknown | | + + +---------+ + Care Team Providers + +------+ + | Care Hydroelectric Powerplant Supervisor Name | Role | Phone | [...] on | Otology Services at | [facility] | | | | | [address] [place], [place] | | | | | [address] | [address] | | | | | Mailcode: PV01 | | | | | | [facility] | | | | | | [place], [place] | | | | | | [address] | | | | | | [phone] | | | +--------+ + + + [...]
--- OUTSIDE RECORDS SUMMARY | ~2019-08-08 | XMS | Encounter Summary ---
Demographics + + + | Address | [address] | | | [place] [address] | + + + | Home Phone [...] Author + + + | Author | [facility] | + + + | Organization | [facility] | + + + | Address | Unknown | + + + | Phone | Unavailable | + + + Support + + +---------+ + | Name | Relationship | Address | Phone | + + +---------+ + | Alisia Nina | ECON | Unknown | | + + +---------+ + Care Team Providers + +------+ + | Care Electric Stove Mechanic Name | Role | Phone | [...] | Otology Services at | MD [facility] [address] | | | | | [address] | | | | | [address] | [place], [place] | | | | | Mailcode: PV01 | [address] | | | | | [facility] | [phone] | | | | | [place], [place] | | | | | | [address] | | | | | | [phone] | | | +--------+ + + + [...]
--- OUTSIDE RECORDS SUMMARY | ~2019-08-08 | XMS | Encounter Summary ---
Demographics + + + | Address | [address] | | | [place] [address] | + + + | Home Phone | | + + + | Preferred Language | Unknown | + + + | Marital Status | Single | + + + | Jew Affiliation | 1041 | + + + | Race | Unknown | + + + | Ethnic Group | Unknown | + + + Author + + + | Author | [facility] | | | and Shaneana | + + + | Organization | [facility] | | | and [place] [...] [place] | | | | | [address] | | + + + + + | Pratibha Hester | ECON | Unknown | + | + + + + + | Demian Powell | ECON | Unknown | + | + + + + + Care Team Providers + +------+ + | Care Ornamental Metalwork Designer Name | Role | Phone | [...] | Telephone | [facility] | Sacsha Mir, | Other (called | | 2014 | | NEUROSUR[address] | DO [address] | patient to inform | | | | [address] | [address] [place] [address] | her that I mailed | | | | [place] | [address] | her prescriptions | | | | [address] | | certified mail | | | | [phone] | | today.) | +--------+ + + [...] | | | | | | [place] [address] | | | | | | [phone] | | | | | | | | +--------+---------+ + + + documented as of this encounter Visit Diagnoses Not on filedocumented in this encounter"
--- OUTSIDE RECORDS SUMMARY | ~2019-08-08 | XMS | Encounter Summary ---
Demographics + + + | Address | [address] | | | [place] [address] | + + + | Home Phone [...] | Author | [facility] | | | and Shaneana | + + + | Organization | [facility] | | [...] [place], [place] | | | | | [address] | | + + + + + | Pratibha Hester | ECON | Unknown | + | + + + + + | Demian Powell | ECON | Unknown | + | + + + + + Care Team Providers + +------+ + | Care Manager College Name | Role | Phone | + +------+ + | Jannette Boyle PA-C | PCP | | + +------+ + Encounter Details +--------+ + + + + | Date | Type | Department | Care Team | Description | +--------+ + + + + | 09/26/ | Telephone | [facility] | Denilson Jorge | | | 2012 | | NEUROSUR[address] | [address] | | | | | [address] | [place] | | | | | [place] | [address] | | | | | [address] | [phone] | | | | [phone] | | | +--------+ + + + [...] | | | | | | [place] [address] | | | | | | [phone] | | | | | | | | +--------+---------+ + + + documented as of this encounter Visit Diagnoses Not on filedocumented in this encounter"
--- OUTSIDE RECORDS SUMMARY | ~2019-08-08 | XMS | Clinical Summary ---
Demographics + + + | Address | [address] | | | [place] [address] | + + + | Home Phone | | + + + | Preferred Language | Unknown | + + + | Marital Status | Single | + + + | Sabianism Affiliation | CAT | + + + | Race | Unknown | + + + | Ethnic Group | Not or | + + + Author + + + | Author | [facility] | + + + | Organization | [facility] | + + + | Address | Unknown | + + + | Phone | Unavailable | + + + Support + + +---------+ + | Name | Relationship | Address | Phone | + + +---------+ + | Alsiia Nina | ECON | Unknown | | + + +---------+ + Care Team Providers + +------+ + | Care Graduate Nurse Name | Role | Phone | + +------+ + | Gracie Lewis PA-C | PCP | | + +------+ + Source Comments [facility] is fully live on both [facility] and [facility] InPatient.[facility] Allergies + + + + + + [...] | Anxiety | | + + + Encounters +--------+ + + + + | Date | Type | Specialty | Care Team | Description | +--------+ + + + + | 07/13/ | Abstract | Surgery | Clinic, Surgery | Medical Records | | 2019 | | | | Review | +--------+ + + + + | 06/27/ | Office | Nutrition | Eli Rodas, | Severe obesity (BMI | | 2018 | Visit | | RD | >= 40) ([facility]) | | | | | | (Primary Dx); Type 2 | | | | | | diabetes mellitus | | | | | | with other specified | | | | | | complication, with | | | | | | long-term current | | | | | | 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 ([facility]) | +--------+ + + + + | 06/27/ | Office | Surgery | Jen Coronel, | Severe obesity ([facility]) | | 2018 | Visit | | AGACNP | (Primary Dx); | | | | | | Gastroesophageal | | | | | | reflux disease, | | | | | | esophagitis presence | | | | | | not specified; Type | | | | | | 2 diabetes mellitus | | | | | | without | | | | | | complication, with | | | | | | long-term current | | | | | | 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 | | | | | | (HCC); Hx of | | | | | | degenerative disc | | | | | | disease | +--------+ + + + + | 06/27/ | Office | Physical Therapy | Edith Gil, | Morbid obesity (HCC) | | 2018 | Visit | | PT,DPT | (Primary Dx) | +--------+ + + + + | 06/27/ | Travel | | | | | 2018 | | | | | +--------+ + + + + | 05/14/ | Abstract | Surgery | Clinic, Surgery | Medical Records | | 2019 | | | | Review | +--------+ + + + + from Last 3 Months Family History + + +------+ + | [...] 07/07/2010, | | | vaccination ( | 7 | 07/07/2010 | | | - PPSV23) | | | | + + + + + | Influenza (Flu) | Completed | 06/13/2019, 10/03/2018, | | | vaccination | | 05/25/2017, Additional history | | | | | exists | | + + + + + Procedures + +--------+ + + + | Procedure Name | Priori | Date/Time | Associated Diagnosis | Comments | | | ty | | | | + +--------+ + + + | [place] MNT INITIAL | Routin | 06/27/2019 | [...] | 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 (HCC) | | + +--------+ + + + from Last 3 Months Results Not on filefrom Last 3 Months Insurance + +--------+ +--------+-------+---------+--------+ | Payer | Benefi | Subscriber | Effect | Phone | Address | Type | | | t Plan | ID | keisha | | | | | | / | | Dates | | | | | | Group | | | | | | + +--------+ +--------+-------+---------+--------+ | INSTANT POWDER SUPERVISOR MEDICAID | INSTANT POWDER SUPERVISOR | [id number] | 08/08/19 | | | Medica | | | [place] | | 18-Pre | | | id | | | N [place] | | sent | | | | + +--------+ +--------+-------+---------+--------+ | [facility] | | [id number] | Effect | | | [...] | Self | [birth year] | [address] | | | al/Fam | | 1970 | [phone] | [place] [address] | | | neil | | | 3 (Home) | | + +--------+ +--------+ + + | Demian Nina | Agency | Self | [birth year] | | [address] | | | | | 1970 | [phone] | [place] [address] | | | | | | 3 (Home) | | + +--------+ +--------+ + +
--- OUTSIDE RECORDS SUMMARY | ~2019-08-08 | XMS | Encounter Summary ---
Demographics + + + | Address | [address] | | | [place] [address] | + + + | Home Phone [...] + | Author | [facility] | | | and Shaneana | + + + | Organization | [facility] | | | and [place] [...] [place] | | | | | [address] | | + + + + + | Pratibha Hester | ECON | Unknown | + | + + + + + | Demian Powell | ECON | Unknown | + | + + + + + Care Team Providers + +------+ + | Care Senior Project Manager Name | Role | Phone | [...] + + | 12/27/ | Telephone | [facility] | Sascha Mir, | Appointment | | 2014 | | [address] | DO [address] | | | | | [address] | [address] [place], [place] | | | | | [place], [place] | [id number] | | | | | [address] | | | | | | [phone] | | | +--------+ + + + [...] | | | | | | [place] [address] | | | | | | [phone] | | | | | | | | +--------+---------+ + + + documented as of this encounter Visit Diagnoses Not on filedocumented in this encounter"
--- OUTSIDE RECORDS SUMMARY | ~2019-08-08 | XMS | Encounter Summary ---
Demographics + + + | Address | [address] | | | [place] [address] | + + + | Home Phone [...] Team Providers + +------+ + | Care Automation Design Engineer Name | Role | Phone | [...] Loop | | | | | | Mailcode: PV01 | | | | | | [facility] | | | | | | [place], [place] | | | | | | [address] | | | | | | [phone] | | | +--------+ + + + [...] Date of Evaluation: 08/14/2014 Otology Clinic Demian Montoyarera, 44 y.o., was seen for a comprehensive [...] to mild conductive hearing loss. A speech corporate receptionist threshold was o btained at 30 dB HL and is in good agreement with responses to pure-tone stimuli. Word clau gnition ability was 100% when words were presented at a comfortable level of 65 dB HL. Left Ear: Near normal hearing with a conductive loss below 2000 Hz; mild sensorineural he aring loss at 8000 Hz. A speech corporate receptionist threshold was obtained at 20 dB HL and is in good agreement with responses to pure-tone stimuli. Word recognition ability was 100% when word s were presented at a comfortable level of 60 dB HL. Please see SmartForm audiogram for details. Please see otology note [...] + +--------+ + + + | [place] TYMPANOMETRY | Routin | 08/14/2014 | Conductive hearing | | | | e | 4:03 PM | loss, bilateral | | | | | PST | | | + +--------+ + + + | [place] COMPREHENSIVE | Routin | 08/14/2014 | Conductive [...]
--- OUTSIDE RECORDS SUMMARY | ~2019-08-08 | XMS | Encounter Summary ---
Demographics + + + | Address | [address] | | | [place] [address] | + + + | Home Phone [...] | Author | [facility] | | | and Shaneana | + + + | Organization | [facility] | | | and [...] [place] | | | | | [address] | | + + + + + | Pratibha Hester | ECON | Unknown | + | + + + + + | Demian Powell | ECON | Unknown | + | + + + + + Care Team Providers + +------+ + | Care Technical Illustrator Name | Role | Phone | + [...] + + | 12/19/ | Telephone | [facility] | Sascha Mir, | Other | | 2014 | | NEUR[address]UR[address] | DO [address] | | | | | [address] [facility] | [address] [place], [place] | | | | | [place], [place] | [id number] | | | | | [address] | | | | | | [phone] | | | +--------+ + + + [...] | | | | | | [place] [address] | | | | | | [phone] | | | | | | | | +--------+---------+ + + + documented as of this encounter Visit Diagnoses Not on filedocumented in this encounter"
--- OUTSIDE RECORDS SUMMARY | ~2019-08-08 | XMS | Encounter Summary ---
Demographics + + + | Address | [address] | | | [place] [address] | + + + | Home Phone [...] Author | [facility] | | | and Shaneana | + + + | Organization | [facility] | | | and [...] [place], [place] | | | | | [address] | | + + + + + | Pratibha Hester | ECON | Unknown | + | + + + + + | Demian Powell | ECON | Unknown | + | + + + + + Care Team Providers + +------+ + | Care Tie Binder Name | Role | Phone | + [...] + + | 10/11/ | Telephone | [facility] | Denilson Jorge | Other (Appointment | | 2012 | | NEUR[address]UR[address] | [address], [address] | cancellation due to | | | | [address] | [address] [place] [address] | insurance ) | | | | [place] | [address] | | | | | [address] | [phone] | | | | [phone] | | | +--------+ + + + [...] | | | | | | [place] [address] | | | | | | [phone] | | | | | | | | +--------+---------+ + + + documented as of this encounter Visit Diagnoses Not on filedocumented in this encounter"
--- OUTSIDE RECORDS SUMMARY | ~2019-08-08 | XMS | Encounter Summary ---
Demographics + + + | Address | [address] | | | [place] [address] | + + + | Home Phone [...] + | Author | [facility] | | | and Shaneana | + + + | Organization | [facility] | | | and [...] [place], [place] | | | | | [address] | | + + + + + | Pratibha Hester | ECON | Unknown | + | + + + + + | Demian Powell | ECON | Unknown | + | + + + + + Care Team Providers + +------+ + | Care Director Of Assisted Living Name | Role | Phone | + +------+ + | Quentin Manriquez PA-C | PCP | | + +------+ + Encounter Details +--------+---------+ + + + | Date | Type | Department | Care Team | Description | +--------+---------+ + + + | 01/15/ | Office | [facility] | Amol Triplett, | Spondylolisthesis of | | 2014 | Visit | [address] | PA-C [address] | lumbar region L5-S1 | | | | [address] | [address] [place] | (Primary Dx); S/P | | | | [place], [place] | [place] [address] | lumbar fusion | | | | [address] | [phone] | | | | | [phone] | | | +--------+---------+ + + + [...] your back and use good technique when chart picker things and bending. documented in this encounter Progress Notes Amol Triplett PA - 01/15/2015 10:33 AM PDTFormatting of this note might be different f rom the original. ANNETTE Gutierrez [address] [facility], [address] [place] [address] FAX: NEUROSURGERY SURGICAL FOLLOW-UP CHIEF COMPLAINT: No [...] | | | | | | [place] [address] | | | | | | [phone] | | | | | | | [...] FINDINGS: There is stable hardware | . [facility] | | for posterior fusion from L5 through S1 with interbody hardware at | [facility] | | L5-S1. Extensive spondylosis is [...] + | [address] | [address] | [place] | [phone] | | [facility] | | [address] | | | - IMAGING | | | | + + + + + documented in this encounter Visit Diagnoses + + | Diagnosis | + + | Spondylolisthesis of lumbar region L5-S1 - Primary Acquired spondylolisthesis | + + | S/P lumbar fusion Arthrodesis status | + + documented in this encounter
--- OUTSIDE RECORDS SUMMARY | ~2019-08-08 | XMS | Encounter Summary ---
Demographics + + + | Address | [address] | | | [place] [address] | + + + | Home Phone [...] | [facility] | | | and [place]ana | + + + | Organization | [facility] | | | and [...] [place], [place] | | | | | [address] | | + + + + + | Pratibha Hester | ECON | Unknown | + | + + + + + | Demian Powell | ECON | Unknown | + | + + + + + Care Team Providers + +------+ + | Care Global Commodity Manager Name | Role | Phone | + +------+ + | Jannette Boyle PA-C | PCP | | + +------+ + Encounter Details +--------+ + + + + | Date | Type | Department | Care Team | Description | +--------+ + + + + | 02/28/ | Orders Only | [facility] | Provider, | | | 2019 | | SYSTEM GENERIC OP | [address] | | | | | CONVERSION [address] | [address]lee [address]. | | | | | [address] [place], [place] | [place] [address] | | | | | [address] | | | | | | [phone] | | | +--------+ + + + [...] Cardiology | Rudy Osullivan, | | | 2020 | Visit | | MD [address] | | | | | | [place], | | | | | | [place] [address] | | | | | | [phone] | | | | | | | | +--------+---------+ + + + documented as of this encounter Visit Diagnoses Not on filedocumented in this encounter"
--- OUTSIDE RECORDS SUMMARY | ~2019-08-08 | XMS | Encounter Summary ---
Demographics + + + | Address | [address] | | | [place] [address] | + + + | Home Phone [...] | Author | [facility] | | | and Shaneana | + + + | Organization | [facility] | | | and [...] | [place] | | | | | [address] | | + + + + + | Pratibha Hester | ECON | Unknown | + | + + + + + | Demian Powell | ECON | Unknown | + | + + + + + Care Team Providers + +------+ + | Care Container Washer Machine Name | Role | Phone | [...] | | | spondylolist | | [address] | | | | | hesis | | [place], | | | | | Acquired | | [place] [address] | | | | | spondylolist | | Phone: | | | | | hesis | | [phone] | | | | | Procedures | | Fax: | | | | | MD ARTHDSIS | | [phone] | | | | | POST/POSTERO | [...] + + | 12/12/ | Surgery | [facility] | Sascha Mir, | L5-S1 Transforaminal | | 2015 | | MED CTR OR INTRA OP | DO [address] | Lumbar Interbody | | | | [address] | [address] [place], [place] | Fusion | | | | [place], [place] | [address] | | | | | [address] | | | | | | [phone] | | | +--------+---------+ + + + [...] the original. DISCHARGE SUMMARY Pt. Name/Age/: Demian Yolanda Nina 44 y.o. 1970 Date of Admission: [...] of admission the patient was admitted to [facility] and underwent a L5-S1 fusion . Patient [...] she was ultimately discharged to [facility]. Medications Reconciled upon Discharge are: Discharge Medications [...] Discharge: Stable Disposition: Patient was discharged to [place]. Follow-Up Plans: Follow-up with: Dr. Mir's office in 4 weeks Follow-up with primary care physician as needed. Diet: Resume regular diet Activity: Continue to follow guidelines and precautions as previously discussed. Electronically signed by: Amol Triplett, 12/16/2014 7:45 [facility] documented in this encounter Discharge Instructions [...] Tab by mouth | | 0 | 10//20 | | | (ROXICODONE) 5 mg | [...] might be different f rom the original. [facility] NEUROSURGERY PROGRESS NOTE Pt. Name/Age/: Demian Nina [...] since surgery. She is reay to go [facility] in [place]. No further C/C OBJECTIVE: Patient Vitals for [...] ASSESSMENT:SP L5-S1 fuison Plan:B Brace. DC to [place] today. See DC summary. Electronically signed by: Amol Triplett, 12/16/2014 7:36 [facility] Sascha Beck DO - 12/15/2014 9:20 AM PDT Subjective The patient was seen and examined by me today. She complains of of left tingling - improved from numbness, and left leg dysesthesia. Her l egs feel strong. Moderate surgical pain, but tolerable. She would like to go to SNF in [facility] before discharge home. Objective Filed Vitals: 12/15/14 [...] would like to go to SNF in [facility] before discharge home. Objective Filed Vitals: 12/14/14 [...] Range POC Test, Urine Negative POC Specific Fountain Internal QC Acceptable Lot Number [id number] Expiration Date POC GLUCOSE Result Value Ref [...] in this en counter Plan of Treatment +--------+---------+ + + + | Date | Type | Specialty | Care Team | Description | +--------+---------+ + + + | 09/25/ | Office | Cardiology | Rudy Osullivan, | | | 2020 | Visit | | MD [address] | | | | | | [place] | | | | | | [place] [address] | | | | | | [phone] | | | | | | | [...] | of hardware for posterior fusion from D9labfyse S1 with interbody hardware at L5-S1. | [...] + | [facility] | [address] | [place] | [phone] | | [facility] | | [address] | | | - LABORATORY | | [...] Specific | | | | | | Fountain, | | | | | | POC | | | | | + + + + + + | Internal QC | Acceptable | | | | + + + + + + | Lot Number | [id number] | | | | + + + + + + | Expiration | -2015 | | | | | Date | [...] | | POC | | | [facility] | | [...] [address] | [place] | [phone] | | [facility] | | [address] | | | - LABORATORY | | [...] ST. | [address] | [place] | | | [facility] | | [address] | | | - BLOOD BANK | [...]
--- OUTSIDE RECORDS SUMMARY | ~2019-08-08 | XMS | Encounter Summary ---
Demographics + + + | Address | [address] | | | [place] [address] | + + + | Home Phone [...] + + + | Author | [facility] | | | and Shaneana | + + + | Organization | [facility] | | | and [...] [place] | | | | | [address] | | + + + + + | Pratibha Hester | ECON | Unknown | + | + + + + + | Demian Powell | ECON | Unknown | + | + + + + + Care Team Providers + +------+ + | Care Brake Operator Sheet Metal Name | Role | Phone | [...] + + | 06/09/ | Telephone | [facility] | Sascha Mir, | Other | | 2014 | | NEUROSURGERY [address] | DO [address] | | | | | [address] [facility] | [address] [place], [place] | | | | | [place], [place] | [id number] | | | | | [address] | | | | | | [phone] | | | +--------+ + + + [...] | | | | | | [place] [address] | | | | | | [phone] | | | | | | | | +--------+---------+ + + + documented as of this encounter Visit Diagnoses Not on filedocumented in this encounter"
--- OUTSIDE RECORDS SUMMARY | ~2019-08-08 | XMS | Encounter Summary ---
Demographics + + + | Address | [address] | | | [place] [address] | + + + | Home Phone [...] Author | [facility] | | | and Shaneana | + + + | Organization | [facility] | | | and [place] [...] [place] | | | | | [address] | | + + + + + | Pratibha Hester | ECON | Unknown | + | + + + + + | Demian Powell | ECON | Unknown | + | + + + + + Care Team Providers + +------+ + | Care Consulting Software Engineer Name | Role | Phone [...] + + | 12/10/ | Telephone | [facility] | Sascha Mir, | Other (surgery | | 2015 | | NEUROSURGERY [address] | DO [address] | reminder ) | | | | [address] | [address] [place], [place] | | | | | [place] | [address] | | | | | [address] | | | | | | [phone] | | | +--------+ + + + [...] | 09/25/ | Office | Cardiology | Ruyd Osullivan, | | | 2019 | Visit | | MD [address] | | | | | | [place], | | | | | | [place] [address] | | | | | | [phone] | | | | | | | | +--------+---------+ + + + documented as of this encounter Visit Diagnoses Not on filedocumented in this encounter"
--- OUTSIDE RECORDS SUMMARY | ~2019-08-08 | XMS | Encounter Summary ---
Demographics + + + | Address | [address] | | | [place] [address] | + + + | Home Phone [...] + | Author | [facility] | | | and Shaneana | + + + | Organization | [facility] | | | and [place] | [...] [place] | | | | | [address] | | + + + + + | Pratibha Hester | ECON | Unknown | + | + + + + + | Demian Powell | ECON | Unknown | + | + + + + + Care Team Providers + +------+ + | Care Review Trainer Name | Role | Phone | [...] + + | 05/05/ | Telephone | [facility] | Sascha Mir, | Other | | 2014 | | NEUROSURGERY [address] | DO [address] | | | | | [address] [facility] | [address] [place], [place] | | | | | [place], [place] | [id number] | | | | | [address] | | | | | | [phone] | | | +--------+ + + + [...] | | | | | | [place] [address] | | | | | | [phone] | | | | | | | | +--------+---------+ + + + documented as of this encounter Visit Diagnoses Not on filedocumented in this encounter"
--- OUTSIDE RECORDS SUMMARY | ~2019-08-08 | XMS | Encounter Summary ---
Demographics + + + | Address | [address] | | | [place] [address] | + + + | Home Phone | | + + + | Preferred Language | Unknown | + + + | Marital Status | Single | + + + | Sikh Affiliation | 1041 | + + + | Race | Unknown | + + + | Ethnic Group | Unknown | + + + Author + + + | Author | [facility] | | | and Shaneana | + + + | Organization | [facility] | | | and [place] [...] [place], [place] | | | | | [address] | | + + + + + | Pratibha Hester | ECON | Unknown | + | + + + + + | Ana Maria Powell | ECON | Unknown | + | + + + + + Care Team Providers + +------+ + | Care Senior Marketing Specialist Name | Role | Phone [...] Procedures | MD [address] | | | | | MRI Lumbar | [address] | [address] | | | | | Spine wo | [place], | [place], [place] | | | | | Contrast | [place] [address] | [address] | | | | | | Phone: | Phone: | | | | | | [phone] | [phone] | | | | | | [phone] Fax: | Fax: | | | | | | | | | | | | | [phone] | | +--------+--------+ + + + + Encounter Details +--------+ + + + + | Date | Type | Department | Care Team | Description | +--------+ + + + + | 08/23/ | Orders Only | [facility] | Denilson Jorge | Back pain (Primary | | 2012 | | NEUROSURGERY [address] | F, [address] | Dx) | | | | [address] | St [place], [place] | | | | | [place], [place] | [address] | | | | | [address] | [phone] | | | | | [phone] | | | +--------+ + + + [...] | | | | | | [place] [address] | | | | | | [phone] | | | | | | | | +--------+---------+ + + + documented as of this encounter Results MRI Lumbar Spine wo Contrast (09/08/2012 12:34 PM PST) + + | Specimen | + + | | + + + + + | Narrative | Performed At | + + + | [facility] | [place] | | Department [address] [facility] [place] | [facility] | | [ rep [address] [ rep [facility] | | st zip] Signed | - IMAGING | | | | | Patient Name: ANA MARIA TURCIOS Physician: | | | LAUREN. : 1970 Age: 42 Sex: F Unit #: [id number] | | | Exam Date: 09/08/12 Location: [facility] | | | Report #: [id number] Page: | | | %(RAD)RES..mtdd.print.filter("pg") of %(RAD) | | | RES..mtdd.print.filter("tpg") | | | | | | Accession Number: [id number] | | | UNENHANCED MRI LUMBAR SPINE, [...] Transcribed | | | Date/Time: 09/08/2012 12:56 Manager Forms: | | | <<Signature on File>> | | | Jayden Wyatt | | | MD Rush09/09/12 6855 <Electronically signed by Jayden Beverly MD> | | | Jayden Beverly MD 09/08/12 1234 Manager Forms: | | | [employer]qu[employer] Mvyomlwqrqqpz27/01/13 1256 Denilson Jorge, | | | MD | | + + + + + + + + | Performing | Address | City/State/Zipcode | Phone Number | | Organization | | | | + + + + + | [facility] | [address] | [place] | [phone] | | [facility] | | [address] | | | - IMAGING | | | | + + + + + documented in this encounter Visit Diagnoses + + | Diagnosis | + + | Back pain - Primary Backache, unspecified | + + documented in this encounter
--- OUTSIDE RECORDS SUMMARY | ~2019-08-08 | XMS | Encounter Summary ---
Demographics + + + | Address | [address] | | | [place] [address] | + + + | Home Phone [...] Team Providers + +------+ + | Care Spinneret Cleaner Name | Role | Phone | [...] | | | | | Procedures | [place], | [facility] | | | | | PHYSICAL | [place] | for Health | | | | | THERAPY | [address] | and Healing, | | | | | REFERRAL | Phone: | Building [address], | | | | | | [phone] | [address] | | | | | | Fax: | [place], [place] | | | | | | [phone] | [address] | | | | | | | Phone: | | | | | | | [phone] | | | | | | | Fax: | | | | | | | [phone] | +--------+--------+ + + + + Encounter Details +--------+---------+ + + + | Date | Type | Department | Care Team | Description | +--------+---------+ + + + | 06/27/ | Office | [facility] | Edith Gil, | Morbid obesity (HCC) | | 2019 | Visit | Therapy Services at | PT,DPT [address] [facility] | (Primary Dx) | | | | 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 Discard remaining half jug. Indications: Bowel Evacuation, [...] person here for pre-op appointment for [facility]. Activity limitations and participation [...] Log roll technique Strength training: Access Code: [email or web address] URL: [email or web address] Date: 06/27/2019 Prepared by: Dennise Gil Exercises [...] Moderate - Moderate complexity Complexity: Moderate - 07[address] The patient requires services that can be safely and effectively performed only by a qualif ied therapist to address the aforementioned and highlighted problems and goals. Goals discussed and agreed upon with patient and/or family. Individual cultural and social needs addressed. Rehab Potential: Good, if Bradford carries through with home exercise program. This note is to serve as the discharge summary if the patient fails to attend further Physi jigar Therapy appointments or contact the therapist regarding any change in their status. Edith Gil, PT,DPT [facility] AT [facility] Scheduled Appointment time: 11:45 AM The patient was seen for a total of 40 minutes of treatment time. 40 minutes was in direct contact care as described above and on completed flow sheets. Treatment Interventions duration in minutes: Procedure:Physical Therapy Evaluation Authorization information for first visit and progress reports Procedure Codes: Re-evaluation 01779, Therapeutic Exercise 34854, Manual Therapy 04592, Th erapeutic Activities 99619, Neuromuscular Reeducation 00871, Gait Training 51781 and Self-ca re ADL 54755 Minutes per session: 45 Total number of visits: 1 Frequency: discharge Duration: n/a (must exceed or match Medicare service period request) Service period from: 06/27/2019 to: - (Medicare must match duration or be no greater than 90 days if proposed duration is greater than 3 months) Start of care: 06/27/2019 Referral information Authorizing Provider: DIPESH RIDLEY [[id number]] Onset/Referral Date: 05/03/19 Primary/Referral Diagnosis: No diagnosis found. Next progress report 08/26/2019 Insurance: Payor: [employer] MEDICAID / Plan: [facility] [place] / Product Type: Medicaid / Number [...]
--- OUTSIDE RECORDS SUMMARY | ~2019-08-08 | XMS | Encounter Summary ---
Demographics + + + | Address | [address] | | | [place] [address] | + + + | Home Phone | | + + + | Preferred Language | Unknown | + + + | Marital Status | Single | + + + | Anglican Affiliation | 1041 | + + + | Race | Unknown | + + + | Ethnic Group | Unknown | + + + Author + + + | Author | [facility] | | | and Shaneana | + + + | Organization | [facility] | | | and [place] [...] [place], [place] | | | | | [address] | | + + + + + | Pratibha Hester | ECON | Unknown | + | + + + + + | Demian Powell | ECON | Unknown | + | + + + + + Care Team Providers + +------+ + | Care Rejector Name | Role | Phone | + +------+ + PCP | Unavailable | + +------+ + Encounter Details +--------+ + + + + | Date | Type | Department | Care Team | Description | +--------+ + + + + | 09/20/ | Hospital | [facility] | Laz Del Valle, | | | 2005 | Encounter | MED CTR GENERIC OP | MD [address] | | | | | CONV DEPT [address] | [address] [facility] | | | | | [place], | [place] [address] | | | | | [place] [address] | [phone] | | | | | [phone] | | | +--------+ + + + [...] [place], | | | | | | [place] [address] | | | | | | [phone] | | | | | | | | +--------+---------+ + + + documented as of this encounter Visit Diagnoses Not on filedocumented in this encounter"
--- OUTSIDE RECORDS SUMMARY | ~2019-08-08 | XMS | Encounter Summary ---
Demographics + + + | Address | [address] | | | [place] [address] | + + + | Home Phone [...] | Author | [facility] | | | and Shaneana | + + + | Organization | [facility] | | | and [place] | [...] [place], [place] | | | | | [address] | | + + + + + | Pratibha Hester | ECON | Unknown | + | + + + + + | Demian Powell | ECON | Unknown | + | + + + + + Care Team Providers + +------+ + | Care Automation Qa Lead Name | Role | Phone | + [...] + | 05/23/ | Refill | [facility] | Sascha Mir, | Medication Refill | | 2014 | | NEUR[address]UR[address] | DO [address] | | | | | [address] [facility] | [address] [place], [place] | | | | | [place] | [id number] | | | | | [address] | | | | | | [phone] | | | +--------+--------+ + + + [...] | | | | | | [place] [address] | | | | | | [phone] | | | | | | | | +--------+---------+ + + + documented as of this encounter Visit Diagnoses Not on filedocumented in this encounter"
--- OUTSIDE RECORDS SUMMARY | ~2019-08-08 | XMS | Encounter Summary ---
Demographics + + + | Address | [address] | | | [place] [address] | + + + | Home Phone [...] | Author | [facility] | | | and Shaneana | + + + | Organization | [facility] | | | and [...] [place] | | | | | [address] | | + + + + + | Pratibha Hester | ECON | Unknown | + | + + + + + | Demian Powell | ECON | Unknown | + | + + + + + Care Team Providers + +------+ + | Care Manager Medical Name | Role | Phone | + [...] + | 06/17/ | Telephone | [facility] | Sascha Mir, | Appointment | | 2014 | | NEUR[address]UR[address]ERY [address] | DO [address] | | | | | [address] | [address] [place], [place] | | | | | [place], [place] | [id number] | | | | | [address] | | | | | | [phone] | | | +--------+ + + + [...] | | | | | | [place] [address] | | | | | | [phone] | | | | | | | | +--------+---------+ + + + documented as of this encounter Visit Diagnoses Not on filedocumented in this encounter"
--- OUTSIDE RECORDS SUMMARY | ~2019-08-08 | XMS | Encounter Summary ---
Demographics + + + | Address | [address] | | | [place] [address] | + + + | Home Phone | | + + + | Preferred Language | Unknown | + + + | Marital Status | Single | + + + | Scientologist Affiliation | 1041 | + + + | Race | Unknown | + + + | Ethnic Group | Unknown | + + + Author + + + | Author | [facility] | | | and Shaneana | + + + | Organization | [facility] | | | and [...] [place] | | | | | [address] | | + + + + + | Pratibha Hester | ECON | Unknown | + | + + + + + | Demian Powell | ECON | Unknown | + | + + + + + Care Team Providers + +------+ + | Care Medical Surgical Tech Name | Role | Phone | + [...] | Sascha Armendariz DO | [address] | | | | | Spondylolist | [address] | [place], | | | | | hesis of | [address] | [place] | | | | | lumbar | [place] | [address] | | | | | region S/P | [address] | Phone: | | | | | lumbar | Phone: | [phone] | | | | | fusion | [phone] | Fax: | | | | | Procedures | Fax: | [phone] | | | | | MRI Lumbar | [phone] | | | | | | Spine [...] | Sascha Armendariz DO | [address] | | | | | radicular | [address] | [place], | | | | | pain | [address] | [place] | | | | | Procedures | [place] | [address] | | | | | MRI Cervical | [address] | Phone: | | | | | Spine wo | Phone: | [phone] | | | | | Contrast | [phone] | Fax: | | | | | | Fax: | [phone] | | | | | | [phone] | | +--------+--------+ + + + + Reason for Visit + + + | Reason | Comments | + + + | Follow-up | 3-month post-op | + + + Encounter Details +--------+---------+ + + + | Date | Type | Department | Care Team | Description | +--------+---------+ + + + | 03/17/ | Office | [facility] | Sascha Mir, | Spondylolisthesis of | | 2015 | Visit | NEUROSURGERY [address] | DO [address] | lumbar region | | | | [address] | [address] [place], [place] | (Primary Dx); S/P | | | | [place], [place] | [address] | lumbar fusion; | | | | [address] | | Cervical radicular | | | | [phone] | | pain | +--------+---------+ + + [...] m the original. Sascha Mir DO [address] [facility], [address] [place] [address] FAX: NEUROSURGERY FOLLOW-UP CHIEF COMPLAINT: Chief Complaint [...] | | | | | | [place] [address] | | | | | | [phone] | | | | | | | [...]
--- OUTSIDE RECORDS SUMMARY | ~2019-08-08 | XMS | Encounter Summary ---
Demographics + + + | Address | [address] | | | [place] [address] | + + + | Home Phone | | + + + | Preferred Language | Unknown | + + + | Marital Status | Single | + + + | Restorationism Affiliation | CAT | + + + | Race | Unknown | + + + | Ethnic Group | Not or | + + + Author + + + | Author | [facility] | + + + | Organization | [facility] | + + + | Address | Unknown | + + + | Phone | Unavailable | + + + Support + + +---------+ + | Name | Relationship | Address | Phone | + + +---------+ + | Alisia Nina | ECON | Unknown | | + + +---------+ + Care Team Providers + +------+ + | Care Pipe Cleaner Name | Role | Phone | + +------+ + | Quentni Manriquez | PCP | | + +------+ [...] 2013 | Visit | Audiology Services | [facility] [address] | | | | | at [facility] [address] | | | | | [address] | [place] [address] | | | | | Mailcode: [address] | [phone] | | | | | Michelle Agu[address] | | | | | | [place], [place] | | | | | | [address] | | | | | | [phone] | | | +--------+ + + + [...] + documented as of this encounter Nathalie Gryason - 04/25/2014 5:25 PM PDTElectronically signed by [...] to moderate mixed hearing loss. A speech textile dyer threshold was obtain ed at 40 dB HL and is in good agreement with responses to pure-tone stimuli. Word recogniti on ability was 80% when words were presented at a comfortable level of 65 dB HL. Left Ear: Normal hearing sensitivity from 250-4000 Hz, sloping to a mild hearing loss at 6000 Hz, rising to normal hearing at 8000 Hz. A speech textile dyer threshold was obtained at 20 dB HL and is in good agreement with responses to pure-tone stimuli. Word recognition judy lity was 84% when words were presented at a comfortable level of 50 dB HL. [facility]. Please see otology note for appointment detail including treatment/management and recommend ations. documented in this enco unter Plan of Treatment Not on filedocumented as of this encounter Procedures + +--------+ + + + | Procedure Name | Priori | Date/Time | Associated Diagnosis | Comments | | | ty | | | | + +--------+ + + + | [place] TYMPANOMETRY | Routin | 04/16/2014 | Mixed hearing | | | | e | 3:45 PM | loss, unilateral | | | | | PDT | | | + +--------+ + + + | [place] COMPREHENSIVE | Routin | 04/16/2014 | Mixed [...]
--- OUTSIDE RECORDS SUMMARY | ~2019-08-08 | XMS | Encounter Summary ---
Demographics + + + | Address | [address] | | | [place] [address] | + + + | Home Phone | | + + + | Preferred Language | Unknown | + + + | Marital Status | Single | + + + | Quaker Affiliation | 1041 | + + + | Race | Unknown | + + + | Ethnic Group | Unknown | + + + Author + + + | Author | [facility] | | | and Shaneana | + + + | Organization | [facility] | | | and [...] [place], [place] | | | | | [address] | | + + + + + | Pratibha Hester | ECON | Unknown | + | + + + + + | Demian Powell | ECON | Unknown | + | + + + + + Care Team Providers + +------+ + | Care Fundraising Sale Representative Name | Role | Phone | [...] + + | 03/17/ | Telephone | [facility] | Sascha Mir, | Other | | 2014 | | NEUROSURGERY [address] | DO [address] | | | | | [facility] | [address] [place], [place] | | | | | [place], [place] | [address] | | | | | [address] | | | | | | [phone] | | | +--------+ + + + [...] | | | | | | [place] [address] | | | | | | [phone] | | | | | | | | +--------+---------+ + + + documented as of this encounter Visit Diagnoses Not on filedocumented in this encounter"
--- OUTSIDE RECORDS SUMMARY | ~2019-08-08 | XMS | Encounter Summary ---
Demographics + + + | Address | [address] | | | [place] [address] | + + + | Home Phone | | + + + | Preferred Language | Unknown | + + + | Marital Status | Single | + + + | Orthodoxy Affiliation | 1041 | + + + | Race | Unknown | + + + | Ethnic Group | Unknown | + + + Author + + + | Author | [facility] | | | and Shaneana | + + + | Organization | [facility] | | | and [...] [place], [place] | | | | | [address] | | + + + + + | Pratibha Hester | ECON | Unknown | + | + + + + + | Demian Powell | ECON | Unknown | + | + + + + + Care Team Providers + +------+ + | Care Area Development Manager Name | Role | Phone | + +------+ + PCP | Unavailable | + +------+ + Encounter Details +--------+ + + + + | Date | Type | Department | Care Team | Description | +--------+ + + + + | 05/23/ | Hospital | [facility] | | | | 1999 | Encounter | MED CTR LABORATORY | | | | | | [address] | | | | | | [place] | | | | | | [address] | | | | | | [phone] | | | +--------+ + + + [...] | | | | | | [place] [address] | | | | | | [phone] | | | | | | | | +--------+---------+ + + + documented as of this encounter Visit Diagnoses Not on filedocumented in this encounter"
--- OUTSIDE RECORDS SUMMARY | ~2019-08-08 | XMS | Encounter Summary ---
Demographics + + + | Address | [address] | | | [place] [address] | + + + | Home Phone [...] + + + | Author | [facility] | | | and Shaneana | + + + | Organization | [facility] | | | and [place] [...] [place], [place] | | | | | [address] | | + + + + + | Pratibha Hester | ECON | Unknown | + | + + + + + | Demian Powell | ECON | Unknown | + | + + + + + Care Team Providers + +------+ + | Care Software Test Developer Name | Role | Phone | [...] | Bilateral lumbar | | 2014 | | NEUROSURGERY [address] | DO [address] | radiculopathy | | | | [address] | [address] [place] | (Primary Dx); HIP | | | | [place], [place] | [address] | PAIN, LEFT, CHRONIC; | | | | [address] | | Spondylolisthesis | | | | [phone] | | of lumbar region | | [...] | | | | | | [place] [address] | | | | | | [phone] | | | | | | | [...] + | [facility] | [address] | [place], [place] | [phone] | | [facility] | | [address] | | | - IMAGING | | [...] | Time | | seconds | [facility] | | | | [address] | [place] | [phone] | | [facility] | | [address] | | | - LABORATORY | | [...] + | [facility] | [address] | [place] | [phone] | | [facility] | | [address] | | | - LABORATORY | | [...] | | | | mmol/L | [facility] | | | | | | MEDICAL | | | | | | CENTER - | | | | | | LABORATORY | | + + + + + + | K | 3.8 | 3.5 - 5.1 | [facility] | | | | | mmol/L | [facility] | | | | [...] not | >60Comment: GLOMERULAR | >=60 | [facility] | | | | FILTRATION | mL/min/1.73m2 | [facility] | | | JORDANIAN | RATE,ESTIMATED | | MEDICAL | | | | mL/min/1.38n5Oedp than | | CENTER - | | [...] | ine Ratio | | | [facility] | | [...] ST. | [address] | [place], [place] | [phone] | | [facility] | | [address] | | | - LABORATORY | | [...] | | | | M/uL | [facility] | | | | | | MEDICAL | | | | | | CENTER - | | | | | | LABORATORY | | + + + + + + | Hemoglobin | 12.0 | 11.5 - 16.0 | [facility] | | | | | g/dL | [facility] | | | | [...] | | | Count | | | [facility] | | [...] | Lymphocytes | | K/uL | [facility] | | | | | | MEDICAL | | | | | | CENTER - | | | | | | LABORATORY | | + + + + + + | Absolute | 0.50 | 0.00 - 1.00 | [facility] | | | Monocytes | | K/uL | [facility] | | | | | | MEDICAL | | | | | | CENTER - | | | | | | LABORATORY | | + + + + + + | Absolute | 0.30 | 0.00 - 0.40 | [facility] | | | Eosinophils | | K/uL | [facility] | | | | | | MEDICAL | | | | | | CENTER - | | | | | | LABORATORY | | + + + + + + | Absolute | 0.10 | 0.00 - 0.10 | [facility] | | | Basophils | | K/uL | [facility] | | | | [...] ST. | [address] | [place], [place] | [phone] | | [facility] | | [address] | | | - LABORATORY | | [...]
--- OUTSIDE RECORDS SUMMARY | ~2019-08-08 | XMS | Encounter Summary ---
Demographics + + + | Address | [address] | | | [place] [address] | + + + | Home Phone | | + + + | Preferred Language | Unknown | + + + | Marital Status | Single | + + + | Church Affiliation | 1041 | + + + | Race | Unknown | + + + | Ethnic Group | Unknown | + + + Author + + + | Author | [facility] | | | and Shaneana | + + + | Organization | [facility] | | | and [place] [...] [place], [place] | | | | | [address] | | + + + + + | Pratibha Hester | ECON | Unknown | + | + + + + + | Demian Powell | ECON | Unknown | + | + + + + + Care Team Providers + +------+ + | Care Oyster Unloader Name | Role | Phone | + +------+ + | Jannette Boyle PA-C | PCP | | + +------+ + Encounter Details +--------+ + + + + | Date | Type | Department | Care Team | Description | +--------+ + + + + | 05/31/ | Orders Only | [facility] | Angelo Abrams, | | | 2017 | | CONVERSION [address] | MD [address] | | | | | [address] [address] | [address] [place], [place] | | | | | [place], [place] | [address] | | | | | [address] | | | | | | [phone] | | | +--------+ + + + [...] | 09/25/ | Office | Cardiology | [place] [facility] [place], Rudy M, | | | 2019 | Visit | | MD [address] | | | | | | [place], | | | | | | [place] [address] | | | | | | [phone] | | | | | | | [...] MV A Ollie: 0.67 m/s MV Dec [place]: 3.90 m/s2 MV | | | DecT: 192.12 ms MV E Ollie: 0.75 m/s MV E/A Ratio: 1.11 MV | | | PHT: 55.71 ms MVA By PHT: 3.94 cm2 Septal e': 0.04 m/s | | | Septal E/e': 15.99 Lateral e': 0.06 m/s Lateral E/e': 11.01 | | | Linseed Oil Press Tender: DBS Authenticated by: Itzel Mendoza Report | | | Date/Time: 06-01-2018 19:30:56 | | + + + + + | Procedure Note | + + | Antoine Steele Conversion - 03/29/2019 4:52 PM PDT Patient Name: Vania Nina | | : 1970 Performing Physician: Itzel [...] cmLVIDd: 4.40 cmLVPWd: 0.94 cmLVOT Area: 3.61 [id number] Diam: 2.14 cm%FS: 30.32 | | %EF(Teich): [...] mlLAESV Index (A-L): 20.19 ml/m2LAAs A2C: 13.00 at7GGHOD A-L | | A2C: 36.94 mlLALs A2C: 3.88 cmLAAs A4C: 15.93 qp4YUOWT A-L A4C: 49.93 mlLALs | | A4C: 4.31 cmRAAs: 10.82 fl0XSYMR A-L: 24.00 mlRAESV MOD: 22.53 mlRALs: 4.14 | | cmTAPSE: 1.61 cmAV maxP.99 mmHgAV meanP.27 mmHgAV Vmax: 1.73 m/Trang | | Vmean: 1.19 m/Trang VTI: 27.27 cmAVA Vmax: 2.35 cm2AVA (VTI): 2.65 dx3MDYE (Vmax): | | 0.00 cm2/m2AVAI (VTI): 0.00 cm2/m2LVOT maxP.08 mmHgLVOT meanP.38 | | mmHgLVSI Dopp: 32.31 ml/m2LVSV Dopp: 72.37 mlLVOT Vmax: 1.12 m/sLVOT Vmean: 0.72 | | m/sLVOT VTI: 20.04 cmMV A Ollie: 0.67 m/sMV Dec [place]: 3.90 m/s2MV DecT: 192.12 | | msMV E Ollie: 0.75 m/sMV E/A Ratio: 1.11MV PHT: 55.71 msMVA By PHT: 3.94 gt4Sfxist | | e': 0.04 m/sSeptal E/e': 15.99Lateral e': 0.06 m/sLateral E/e': 11.01 | | Linseed Oil Press Tender: DBSAuthenticated by: Itzel [facility] Date/Time: 06-01-2018 19:30:56 | | IMPRESSION: 1. [...] A Ollie: 0.67 m/s | |MV Dec [place]: 3.90 m/s2 | |MV DecT: 192.12 ms | |MV E Ollie: 0.75 m/s | |MV E/A Ratio: 1.11 | |MV PHT: 55.71 ms | |MVA By PHT: 3.94 cm2 | |Septal e': 0.04 m/s | |Septal E/e': 15.99 | |Lateral e': 0.06 m/s | |Lateral E/e': 11.01 | | | |Linseed Oil Press Tender: DBS | |Authenticated by: Itzel Mendoza | [...]
--- OUTSIDE RECORDS SUMMARY | ~2019-08-08 | XMS | Encounter Summary ---
Demographics + + + | Address | [address] | | | [place] [address] | + + + | Home Phone [...] Author | [facility] | | | and Shaneana | + + + | Organization | [facility] | | | and [...] [place], [place] | | | | | [address] | | + + + + + | Pratibha Hester | ECON | Unknown | + | + + + + + | Demian Powell | ECON | Unknown | + | + + + + + Care Team Providers + +------+ + | Care Certified Performance Technologist Name | Role | Phone | [...] + | 05/23/ | Refill | [facility] | Sascha Mir, | Medication Refill | | 2014 | | NEUROSURGERY [address] | DO [address] | | | | | [address] [facility] | [address] [place], [place] | | | | | [place] | [id number] | | | | | [address] | | | | | | [phone] | | | +--------+--------+ + + + [...] | | | | | | [place] [address] | | | | | | [phone] | | | | | | | | +--------+---------+ + + + documented as of this encounter Visit Diagnoses Not on filedocumented in this encounter"
--- OUTSIDE RECORDS SUMMARY | ~2019-08-08 | XMS | Encounter Summary ---
Demographics + + + | Address | [address] | | | [place] [address] | + + + | Home Phone [...] Team Providers + +------+ + | Care Street Light Cleaner Name | Role | Phone | [...]
--- OUTSIDE RECORDS SUMMARY | ~2019-08-08 | XMS | Encounter Summary ---
Demographics + + + | Address | [address] | | | [place] [address] | + + + | Home Phone | | + + + | Preferred Language | Unknown | + + + | Marital Status | Single | + + + | Adventist Affiliation | CAT | + + + [...] Team Providers + +------+ + | Care Hoop Riveter Name | Role | Phone | + +------+ + | Gracie Lewis PA-C | PCP | | + +------+ + Encounter Details +--------+ + + + + | Date | Type | Department | Care Team | Description | +--------+ + + + + | 10/19/ | Outside | [facility] at [facility] | Angelo Abrams | | | 2019 | Referral | [facility] [address] | MD Ginny [address] | | | | Order | Melvin Schreiber Mailcode: | georgette Cano | | | | | [address] [place] [address] for | [place] [address] | | | | | Health and Healing, | [phone] | | | | | [facility] 2 | | | | | | [place], [place] | | | | | | [address] | | | | | | [phone] | | | +--------+ + + + [...]
--- OUTSIDE RECORDS SUMMARY | ~2019-08-08 | XMS | Encounter Summary ---
Demographics + + + | Address | [address] | | | [place] [address] | + + + | Home Phone | | + + + | Preferred Language | Unknown | + + + | Marital Status | Single | + + + | Judaism Affiliation | 1041 | + + + | Race | Unknown | + + + | Ethnic Group | Unknown | + + + Author + + + | Author | [facility] | | | and Shaneana | + + + | Organization | [facility] | | | and [place] [...] [place], [place] | | | | | [address] | | + + + + + | Pratibha Hester | ECON | Unknown | + | + + + + + | Demian Powell | ECON | Unknown | + | + + + + + Care Team Providers + +------+ + | Care Floral Specialist Name | Role | Phone | + +------+ + | Quentin Manriquez PA-C | PCP | | + +------+ + Encounter Details +--------+ + + + + | Date | Type | Department | Care Team | Description | +--------+ + + + + | 01/15/ | Hospital | [facility] | Sascha Mir, | Status post lumbar | | 2015 | Encounter | MED CTR XRAY [address] | DO [address] | spinal fusion | | | | [place] | [address] | | | | | [place] [address] | [address] | | | | | [phone] | | | +--------+ + + + [...] 1 tablet by | | 0 | 10/01/20 | | | (ROXICODONE) 5 mg | [...] | | | | | | [place] [address] | | | | | | [phone] | | | | | | | [...] RADIOGRAPHS DECEMBER 13 AND SEPTEMBER 26 | [facility] | | FINDINGS: Five non rib-bearing, lumbar type vertebrae are | [facility] [place] | | visible. Interbody and posterior nayan [...] | | Dictated and Signed by: Jayden eBverly MD Electronically | | | signed: 01/15/2015 [...] | + + + + + | [facility] | [address] | [place], [place] | [phone] | | [facility] | | [address] | | | - IMAGING | | | | + + + + + documented in this encounter Visit Diagnoses + + | Diagnosis | + + | Status post lumbar spinal fusion Arthrodesis status | + + documented in this encounter"
--- OUTSIDE RECORDS SUMMARY | ~2019-08-08 | XMS | Encounter Summary ---
Demographics + + + | Address | [address] | | | [place] [address] | + + + | Home Phone [...] + | Author | [facility] | | | and Shaneana | + + + | Organization | [facility] | | | [...] | [place] | | | | | [address] | | + + + + + | Pratibha Hester | ECON | Unknown | + | + + + + + | Demian Powell | ECON | Unknown | + | + + + + + Care Team Providers + +------+ + | Care Environmental Engineering Technician Name | Role | Phone [...] | | | spondylolist | | [address] | | | | | hesis | | [place], | | | | | Acquired | | [place] [address] | | | | | spondylolist | | Phone: | | | | | hesis | | [phone] | | | | | Procedures | | Fax: | | | | | [place] | | [phone] | | | | | POST/POSTERO | [...] + + | 12/12/ | Hospital | [facility] | Sascha Mir, | Acquired | | 2014 | Encounter | MED CTR XRAY [address] | DO [address] | spondylolisthesis | | | | [place] | [address] [place], [place] | | | | | [place] [address] | [id number] | | | | | [phone] | | | +--------+ + + + [...] | | | | | | [place] [address] | | | | | | [phone] | | | | | | | [...] documented in this encounter Results NORAH Navarro Stats No Charge (12/12/2014 12:10 PM PDT) + + | Specimen | + + | | + + + + + | Narrative | Performed At | + + + | No Radiologist interpretation, please see Chart Review. | [facility] | | | TERI | | | [facility] | | | - IMAGING | + + + + + + + + | Performing | Address | City/State/Zipcode | Phone Number | | Organization | | | | + + + + + | [facility] | [address] | [place] | [phone] | | [facility] | | [address] | | | - IMAGING | | | | + + + + + documented in this encounter Visit Diagnoses + + | Diagnosis | + + | Acquired spondylolisthesis | + + documented in this encounter"
--- OUTSIDE RECORDS SUMMARY | ~2019-08-08 | XMS | Encounter Summary ---
Demographics + + + | Address | [address] | | | [place] [address] | + + + | Home Phone [...] Author | [facility] | | | and Shaneana | + + + | Organization | [facility] | | | and [...] [place], [place] | | | | | [address] | | + + + + + | Pratibha Hester | ECON | Unknown | + | + + + + + | Demian Powell | ECON | Unknown | + | + + + + + Care Team Providers + +------+ + | Care Kennel Manager Dog Track Name | Role | Phone | + +------+ + | Quentin Manriquez PA-C | PCP | | + +------+ + Encounter Details +--------+ + + + + | Date | Type | Department | Care Team | Description | +--------+ + + + + | 06/04/ | Hospital | [facility] | Sascha Mir, | Cervical radicular | | 2015 | Encounter | MED CTR XRAY [address] | DO [address] | pain | | | | [place] | [address] | | | | | [place] [address] | [id number] | | | | | [phone] | | | +--------+ + + + [...] hours | tablet | | 15 | | | disintegrating | as needed for [...] | | | | | | [place] [address] | | | | | | [phone] | | | | | | | [...] lateral and lateral flexion-extension views of | [facility] | | the cervical spine. Spine is [...] + | [facility] | [address] | [place], [place] | [phone] | | [facility] | | [address] | | | - IMAGING | | | | + + + + + documented in this encounter Visit Diagnoses + + | Diagnosis | + + | Cervical radicular pain Brachial neuritis or radiculitis nos | + + documented in this encounter"
--- OUTSIDE RECORDS SUMMARY | ~2019-08-08 | XMS | Encounter Summary ---
Demographics + + + | Address | [address] | | | [place] [address] | + + + | Home Phone [...] Providers + +------+ + | Care Rn Lactation Consultant Name | Role | Phone | [...] 2013 | Visit | Audiology Services | [facility] [address] | | | | | at [facility] [address] | | | | | [address] | [place] [address] | | | | | Mailcode: PV01 | [phone] | | | | | Michelle Aguilera | | | | | | [place], [place] | | | | | | [address] | | | | | | [phone] | | | +--------+ + + + [...] to moderate mixed hearing loss. A speech pega developer threshold was obtain ed at 40 dB HL and is in good agreement with responses to pure-tone stimuli. Word recogniti on ability was 80% when words were presented at a comfortable level of 65 dB HL. Left Ear: Normal hearing sensitivity from 250-4000 Hz, sloping to a mild hearing loss at 6000 Hz, rising to normal hearing at 8000 Hz. A speech pega developer threshold was obtained at 20 dB HL and is in good agreement with responses to pure-tone stimuli. Word recognition judy lity was 84% when words were presented at a comfortable level of 50 dB HL. [facility]. Please see [...] | + +--------+ + + + | TX TYMPANOMETRY | Routin | 04/16/2014 | Mixed hearing | | | | e | 3:45 PM | loss, unilateral | | | | | PDT | | | + +--------+ + + + | TX COMPREHENSIVE | Routin | 04/16/2014 | Mixed [...]
--- OUTSIDE RECORDS SUMMARY | ~2019-08-08 | XMS | Encounter Summary ---
Demographics + + + | Address | [address] | | | [place] [address] | + + + | Home Phone [...] Providers + +------+ + | Care Director Oracle Name | Role | Phone | + [...] | | | | | Procedures | [place], [place] | [facility] | | | | | [address] | [address] | [place], [place] | | | | | BENIGN | Phone: | [phone] | | | | | DISEASE WO | [phone] | Phone: | | | | | [address] | Fax: | [phone] | | | | | SCAN,ORBIT/S | [phone] | Fax: | | | | | CORY/POST | | [phone] | | | | | FOSSA/EAR,W/ | [...] | | | | | Procedures | [place], [place] | [facility] | | | | | [address] | [address] | [place], [place] | | | | | BENIGN | Phone: | [phone] | | | | | DISEASE WO | [phone] | Phone: | | | | | [address] | Fax: | [phone] | | | | | SCAN,ORBIT/S | [phone] | Fax: | | | | | CORY/POST | | [phone] | | | | | FOSSA/EAR,W/ | | | | | | | O | | | +--------+--------+ + + + + Encounter Details +--------+ + + + + | Date | Type | Department | Care Team | Description | +--------+ + + + + | 08/14/ | Hospital | Diagnostic Imaging | | | | 2014 | Encounter | Services at [facility] | | | | | | [address] | | | | | | [place] Mailcode: | | | | | | [address] [facility] | | | | | | [place], [place] | | | | | | [address] | | | | | | [phone] | | | +--------+ + + + [...] + | Performing | Address | City/State/Unm Hospitalcode | Phone Number | | Organization | | | | + +---------+ + + | [facility] DEPARTMENT OF | | | | | RADIOLOGY | | | | + +---------+ + + documented in this encounter Visit Diagnoses + + | Diagnosis | + + | Conductive hearing loss in right ear Conductive hearing loss, unilateral | + + | Dizziness Dizziness and giddiness | + + documented in this encounter"
--- OUTSIDE RECORDS SUMMARY | ~2019-08-08 | XMS | Encounter Summary ---
Demographics + + + | Address | [address] | | | [place] [address] | + + + | Home Phone [...] Providers + +------+ + | Care Director Apparel Name | Role | Phone | + [...] Medical Records | | 2019 | | Mobile at [facility] 0107 | | Review | | | | MAGUI Schreiber | | | | | | Mailcode: Mobile | | | | | | and | | | | | | [facility] | | | | | | [place], [place] | | | | | | [address] | | | | | | [phone] | | | +--------+ + + + [...]
--- OUTSIDE RECORDS SUMMARY | ~2019-08-08 | XMS | Encounter Summary ---
Demographics + + + | Address | [address] | | | [place] [address] | + + + | Home Phone [...] Author | [facility] | | | and Shaneana | + + + | Organization | [facility] | | | and [place] | [...] [place], [place] | | | | | [address] | | + + + + + | Pratibha Hester | ECON | Unknown | + | + + + + + | Ana Maria Powell | ECON | Unknown | + | + + + + + Care Team Providers + +------+ + | Care Hydrological Technical Officer Name | Role | Phone | [...] Procedures | MD [address] | | | | | MRI Lumbar | [address] | [address] | | | | | Spine wo | [place], | [place], [place] | | | | | Contrast | [place] [address] | [address] | | | | | | Phone: | Phone: | | | | | | [phone] | [phone] | | | | | | [phone] Fax: | Fax: | | | | | | | | | | | | | [phone] | | +--------+--------+ + + + + Encounter Details +--------+ + + + + | Date | Type | Department | Care Team | Description | +--------+ + + + + | 08/23/ | Orders Only | [facility] | Denilson Jorge | Back pain (Primary | | 2012 | | NEUROSURGERY [address] | F, [address] | Dx) | | | | [address] | [address] [place], [place] | | | | | [place], [place] | [address] | | | | | [address] | [phone] | | | | | [phone] | | | +--------+ + + + [...] [place], | | | | | | [place] [address] | | | | | | [phone] | | | | | | | | +--------+---------+ + + + documented as of this encounter Results MRI Lumbar Spine wo Contrast (09/08/2012 12:34 PM PST) + + | Specimen | + + | | + + + + + | Narrative | Performed At | + + + | [facility] Diagnostic Imaging | [place] | | Department [address] [facility], [place] | [facility] | | [ rep [address]] [ rep [facility] | | st zip] Signed | - IMAGING | | | | | Patient Name: ANA MARIA TURCIOS Physician: | | | LAUREN. : 1970 Age: 42 Sex: F Unit #: [id number] | | | Exam Date: 09/08/12 [place]: [facility] | | | Report #: [id number] Page: | | | %(RAD)RES..mtdd.print.filter("pg") of %(RAD) | | | RES..mtdd.print.filter("tpg") | | | | | | Accession Number: [id number] | | | UNENHANCED MRI LUMBAR SPINE, [...] Transcribed | | | Date/Time: 09/08/2012 12:56 [employer]: | | | <<Signature on File>> | | | Jayden Wyatt | | | MD Rush09/09/12 [id number] <Electronically signed by Jayden Beverly MD> | | | Jayden Beverly MD 09/08/12 1234 [employer] De[employer]: | | | Riidrmedx [id number]/01/13 1256 Denilson Jorge, | | | MD | | + + + + + + + + | Performing | Address | City/State/Zipcode | Phone Number | | Organization | | | | + + + + + | [facility] | [address] | [place] | [phone] | | [facility] | | [address] | | | - IMAGING | | | | + + + + + documented in this encounter Visit Diagnoses + + | Diagnosis | + + | Back pain - Primary Backache, unspecified | + + documented in this encounter
--- OUTSIDE RECORDS SUMMARY | ~2019-08-08 | XMS | Encounter Summary ---
Demographics + + + | Address | [address] | | | [place] [address] | + + + | Home Phone [...] Author | [facility] | | | and Shaneana | + + + | Organization | [facility] [...] [place], [place] | | | | | [address] | | + + + + + | Pratibha Hester | ECON | Unknown | + | + + + + + | Demian Powell | ECON | Unknown | + | + + + + + Care Team Providers + +------+ + | Care Multifocal Button Grinder Name | Role | Phone | + +------+ + PCP | Unavailable | + +------+ + Encounter Details +--------+ + + + + | Date | Type | Department | Care Team | Description | +--------+ + + + + | 05/23/ | Hospital | [facility] | | | | 1999 | Encounter | MED CTR LABORATORY | | | | | | [address] | | | | | | [place] | | | | | | [address] | | | | | | [phone] | | | +--------+ + + + [...] | | | | | | [place] [address] | | | | | | [phone] | | | | | | | | +--------+---------+ + + + documented as of this encounter Visit Diagnoses Not on filedocumented in this encounter"
--- OUTSIDE RECORDS SUMMARY | ~2019-08-08 | XMS | Encounter Summary ---
Demographics + + + | Address | [address] | | | [place] [address] | + + + | Home Phone [...] Team Providers + +------+ + | Care House Steward/Stewardess Name | Role | Phone | + [...] + + | 05/08/ | Emergency | [facility] Emergency | Davis Cabrera MD | | | 2008 | | Department [address] | [address] | | | | | [address] | [facility] | | | | | [facility] | [place], [place] | | | | | [place], [place] | [address] | | | | | [address] | [phone] | | | | | [phone] | | | +--------+ + + + [...] be followed carefully by your caregiver or cook restaurant. 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 You do not have pain relief from prescribed medications. Your condition is worsening or has changed from what originally brought you in. ExitCare Patient Information 2006 [employer]. documented in this encounter Medications at Time [...]
--- OUTSIDE RECORDS SUMMARY | ~2019-08-08 | XMS | Encounter Summary ---
Demographics + + + | Address | [address] | | | [place] [address] | + + + | Home Phone [...] | Author | [facility] | | | and Shnaeana | + + + | Organization | [facility] | | | and [place] [...] [place], [place] | | | | | [address] | | + + + + + | Pratibha Hester | ECON | Unknown | + | + + + + + | Demian Powell | ECON | Unknown | + | + + + + + Care Team Providers + +------+ + | Care Bolt Machine Operator Name | Role | Phone [...] | SR | | | | | [phone] | | | +--------+ + + + [...] | | | | | | [place] [address] | | | | | | [phone] | | | | | | | | +--------+---------+ + + + documented as of this encounter Visit Diagnoses Not on filedocumented in this encounter
--- OUTSIDE RECORDS SUMMARY | ~2019-08-08 | XMS | Encounter Summary ---
Demographics + + + | Address | [address] | | | [place] [address] | + + + | Home Phone [...] Author | [facility] | | | and Shaneana | + + + | Organization | [facility] | | | and [...] [place] | | | | | [address] | | + + + + + | Pratibha Hester | ECON | Unknown | + | + + + + + | Demian Powell | ECON | Unknown | + | + + + + + Care Team Providers + +------+ + | Care Test Bore Helper Name | Role | Phone | [...] + + | 12/16/ | Telephone | [facility] | Sascha Mir, | Imaging Only | | 2015 | | NEUROSURGERY [address] | DO [address] | | | | | [address] | [address] [place], [place] | | | | | [place], [place] | [id number] | | | | | [address] | | | | | | [phone] | | | +--------+ + + + [...] | | | | | | [place] [address] | | | | | | [phone] | | | | | | | | +--------+---------+ + + + documented as of this encounter Visit Diagnoses Not on filedocumented in this encounter"
--- OUTSIDE RECORDS SUMMARY | ~2019-08-08 | XMS | Encounter Summary ---
Demographics + + + | Address | [address] | | | [place] [address] | + + + | Home Phone | | + + + | Preferred Language | Unknown | + + + | Marital Status | Single | + + + | Yazidism Affiliation | [id number] | + + + | Race | Unknown | + + + | Ethnic Group | Unknown | + + + Author + + + | Author | [facility] | | | and Shaneana | + + + | Organization | [facility] | | | and [...] [place], [place] | | | | | [address] | | + + + + + | Pratibha Hester | ECON | Unknown | + | + + + + + | Demian Powell | ECON | Unknown | + | + + + + + Care Team Providers + +------+ + | Care Float Phlebotomist Name | Role | Phone | + +------+ + | Quentin Manriquez PA-C | PCP | | + +------+ + Encounter Details +--------+ + + + + | Date | Type | Department | Care Team | Description | +--------+ + + + + | 12/05/ | Hospital | [facility] | Sascha Mir, | | | 2015 | Encounter | MED CTR LABORATORY | DO [address] | | | | | [address] | [address] | | | | | [place], [place] | [id number] | | | | | [address] | | | | | | [phone] | | | +--------+ + + + [...] 1 tablet by | | 0 | 20 | | | (ROXICODONE) 5 mg | [...] | | | | | | [place] [address] | | | | | | [phone] | | | | | | | | +--------+---------+ + + + documented as of this encounter Visit Diagnoses Not on filedocumented in this encounter"
--- OUTSIDE RECORDS SUMMARY | ~2019-08-08 | XMS | Encounter Summary ---
Demographics + + + | Address | [address] | | | [place] [address] | + + + | Home Phone [...] | Author | [facility] | | | and Shaneana | + + + | Organization | [facility] | | | and [place] [...] [place], [place] | | | | | [address] | | + + + + + | Pratibha Hester | ECON | Unknown | + | + + + + + | Demian Powell | ECON | Unknown | + | + + + + + Care Team Providers + +------+ + | Care Cyber Security Consultant Name | Role | Phone | + +------+ + | Quentin Manriquez PA-C | PCP | | + +------+ + Encounter Details +--------+---------+ + + + | Date | Type | Department | Care Team | Description | +--------+---------+ + + + | 01/15/ | Office | [facility] | Amol Triplett, | Spondylolisthesis of | | 2014 | Visit | NEUROSURGERY [address] | PA-C [address] | lumbar region L5-S1 | | | | [address] | [address] [place] | (Primary Dx); S/P | | | | [place], [place] | [place] [address] | lumbar fusion | | | | [address] | [phone] | | | | | [phone] | | | +--------+---------+ + + + [...] your back and use good technique when apple picker things and bending. documented in this encounter Progress Notes Amol Triplett PA - 01/15/2015 10:33 AM PDTFormatting of this note might be different f rom the original. ANNETTE Gutierrez [address] [facility], [address] [place] [address] FAX: NEUROSURGERY SURGICAL FOLLOW-UP CHIEF COMPLAINT: No [...] | | | | | | [place] [address] | | | | | | [phone] | | | | | | | [...] FINDINGS: There is stable hardware | . [facility] | | for posterior fusion from L5 through S1 with interbody hardware at | [facility] | | L5-S1. Extensive spondylosis is [...] + | [address] | [address] | [place] | [phone] | | [facility] | | [address] | | | - IMAGING | | | | + + + + + documented in this encounter Visit Diagnoses + + | Diagnosis | + + | Spondylolisthesis of lumbar region L5-S1 - Primary Acquired spondylolisthesis | + + | S/P lumbar fusion Arthrodesis status | + + documented in this encounter
--- OUTSIDE RECORDS SUMMARY | ~2019-08-08 | XMS | Encounter Summary ---
Demographics + + + | Address | [address] | | | [place] [address] | + + + | Home Phone | | + + + | Preferred Language | Unknown | + + + | Marital Status | Single | + + + | Hoahaoism Affiliation | CAT | + + + | Race | Unknown | + + + | Ethnic Group | Not or | + + + Author + + + | Author | [facility] | + + + | Organization | [facility] | + + + | Address | Unknown | + + + | Phone | Unavailable | + + + Support + + +---------+ + | Name | Relationship | Address | Phone | + + +---------+ + | Alisia Nina | ECON | Unknown | | + + +---------+ + Care Team Providers + +------+ + | Care Sales Consultant Insurance Name | Role | Phone | + +------+ + | Gracie Lewis PA-C | PCP | | + +------+ + Encounter Details +--------+ + + + + | Date | Type | Department | Care Team | Description | +--------+ + + + + | 05/03/ | Documentati | [facility] | Clinic, Surgery | | | 2019 | on | [place] [facility] [address] | | | | | | [address] [address] | | | | | | Mailcode: Center | | | | | | for [facility] and | | | | | | Healing, [address] | | | | | | [facility] [place] | | | | | | [address] | | | | | | [phone] | | | +--------+ + + + [...]
--- OUTSIDE RECORDS SUMMARY | ~2019-08-08 | XMS | Encounter Summary ---
Demographics + + + | Address | [address] | | | [place] [address] | + + + | Home Phone [...] + | Author | [facility] | | | and Shaneana | + + + | Organization | [facility] | | | and [place] [...] [place] | | | | | [address] | | + + + + + | Pratibha Hester | ECON | Unknown | + | + + + + + | Demian Powell | ECON | Unknown | + | + + + + + Care Team Providers + +------+ + | Care Tip Out Worker Name | Role | Phone | [...] + + | 12/17/ | Telephone | [facility] | Sascha Mir, | Medication | | 2014 | | NEUROSURGERY [address] | DO [address] | Management | | | | [address] [facility] [address] | [address] [place], [place] | | | | | [place], [place] | [id number] | | | | | [address] | | | | | | [phone] | | | +--------+ + + + [...] | | | | | | [place] [address] | | | | | | [phone] | | | | | | | | +--------+---------+ + + + documented as of this encounter Visit Diagnoses Not on filedocumented in this encounter"
--- OUTSIDE RECORDS SUMMARY | ~2019-08-08 | XMS | Encounter Summary ---
Demographics + + + | Address | [address] | | | [place] [address] | + + + | Home Phone [...] Author | [facility] | | | and Shaneana | + + + | Organization | [facility] | | | and [place] | [...] [place], [place] | | | | | [address] | | + + + + + | Pratibha Hester | ECON | Unknown | + | + + + + + | Demian Powell | ECON | Unknown | + | + + + + + Care Team Providers + +------+ + | Care Electro Tech Name | Role | Phone | [...] Medicine and | Pars defect | Denilson Galdamez, | Roger Ennis MD | | | Required | Rehabilitatio | of lumbar | MD [address] | [address] | | | | n | spine | [address] | [address] [place] | | | | | Spondylolist | [place], | [place], [place] | | | | | hesis of | [place] [address] | [address] Phone: | | | | | lumbar | Phone: | [phone] | | | | | region | [phone] | Fax: | | | | | Degenerative | [phone] Fax: | [phone] | | | | | disc | | | | | | | disease, | [phone] | | | | | | lumbar [...] | | | | | ([facility]) | | | | | | | Sacroiliitis | | | | | | | ([facility]) | | | | | | | Trochanteric | | | | | | | bursitis | | | | | | | Diabetes | | | | | | | mellitus | | | | | | | ([facility]) | | | | | | | [...] | | | | | spine | [address] | | | | | | Spondylolist | [place], | | | | | | hesis of | [place] [address] | | | | | | lumbar | Phone: | | | | | | region | [phone] | | | | | | Degenerative | [phone] Fax: | | | | | | disc | | | | | | | disease, | [phone] | | | | | | lumbar [...] | | | | | ([facility]) | | | | | | | Sacroiliitis | | | | | | | ([facility]) | | | | | | | Trochanteric | | | | | | | bursitis | | | | | | | Diabetes | | | | | | | mellitus | | | | | | | ([facility]) | | | | | | | Asthma | | | +--------+ + + + + + Encounter Details +--------+---------+ + + + | Date | Type | Department | Care Team | Description | +--------+---------+ + + + | 10/27/ | Office | [facility] | Denilson Jorge | Pars defect of | | 2012 | Visit | NEUROSURGERY [address] | MD Denice [address] | lumbar spine L5-S1 | | | | [address] | [address] [place] | (Primary Dx); | | | | [place] | [address] | Spondylolisthesis of | | | | [address] | [phone] | lumbar region | | | | [phone] | | L5-S1; Degenerative | | | | | | disc disease, lumbar | | | | | | L4-5; HIP PAIN, | | | | | | LEFT, CHRONIC; | | | | | | Radiculopathy of | | | | | | lumbar region L5-S1; | | | | | | Morbid obesity | | | | | | ([facility]); Sacroiliitis | | | | | | ([facility]); Trochanteric | | | | | | bursitis; Diabetes | | | | | | mellitus ([facility]); | | | | | | Asthma; [...] slip forward. This is called spondylolisthes is. [id number] [facility], [address] [place] [address]. All rights reserve d. This information is not intended as a substitute for professional medical care. Always fo llow your healthcare professional's instructions. documented in this encounter Progress Notes Denilson Jorge MD - 10/27/2012 11:58 AM PDTFormatting of this note might be differen t from the original. 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 CRANIAL NERVES: Fundoscopic Exam: The optic [...] Intrinsics 5 5 Ulnar Intrinsics 5 5 Densitometrist Strength 5 5 Hip Flexion 5 5 [...] in th is encounter Plan of Treatment +--------+---------+ + + + | Date | Type | Specialty | Care Team | Description | +--------+---------+ + + + | 09/25/ | Office | Cardiology | Rudy Osullivan, | | | 2019 | Visit | | MD [address] | | | | | | [place], | | | | | | [place] [address] | | | | | | [phone] | | | | | | | [...] | | | | | ([facility]) Sacroiliitis | | | | | | ([facility]) Trochanteric | | | | | | bursitis Diabetes | | | | | | mellitus ([facility]) | | | | | | Asthma [...] | | | | | ([facility]) Sacroiliitis | | | | | | ([facility]) Trochanteric | | | | | | bursitis Diabetes | | | | | | mellitus ([facility]) | | | | | | Asthma [...] Morbid obesity | + + | Sacroiliitis (HCC) Sacroiliitis, not elsewhere classified | + + | Trochanteric bursitis Enthesopathy of hip region | + + | Diabetes mellitus (HCC) Type II or unspecified type diabetes mellitus [...]
--- OUTSIDE RECORDS SUMMARY | ~2019-08-08 | XMS | Encounter Summary ---
Demographics + + + | Address | [address] | | | [place] [address] | + + + | Home Phone [...] + | Author | [facility] | | | and Shaneana | + + + | Organization | [facility] | | | and [place] [...] [place], [place] | | | | | [address] | | + + + + + | Pratibha Hester | ECON | Unknown | + | + + + + + | Demian Powell | ECON | Unknown | + | + + + + + Care Team Providers + +------+ + | Care Show Horse Driver Name | Role | Phone | [...] NEUROSURGERY [address] | FMD [address] | lumbar region | | | | [address] | [address] [place] [address] | L5-S1; Pars defect | | | | [place], [place] | [address] | of lumbar spine | | | | [address] | [phone] | L5-S1; Degenerative | | | | [phone] | | disc disease, lumbar | | | | | | L4-5; Radiculopathy | | | | | | of lumbar region | | | | | | L5-S1; Morbid | | | | | | obesity ([facility]); | | | | | | Sacroiliitis ([facility]); | | | | | | Trochanteric | | | | | | bursitis; Diabetes | | | | | | mellitus ([facility]); | | | | | | Asthma [...] | | | | | | [place] [address] | | | | | | [phone] | | | | | | | [...] unspecified | + + | Morbid obesity ([facility]) Morbid obesity | + + | Sacroiliitis ([facility]) Sacroiliitis, not elsewhere classified | + + | Trochanteric bursitis Enthesopathy of hip region | + + | Diabetes mellitus ([facility]) Type II or unspecified type diabetes mellitus without mention | | of complication, not stated as uncontrolled | + + | Asthma Unspecified asthma | + + documented in this encounter
--- OUTSIDE RECORDS SUMMARY | ~2019-08-08 | XMS | Encounter Summary ---
Demographics + + + | Address | [address] | | | [place] [address] | + + + | Home Phone [...] | Author | [facility] | | | and Shaneana | + + + | Organization | [facility] | | | and [...] | [place] | | | | | [address] | | + + + + + | Pratibha Hester | ECON | Unknown | + | + + + + + | Demian Powell | ECON | Unknown | + | + + + + + Care Team Providers + +------+ + | Care Bottle House Cleaners Supervisor Name | Role | Phone | [...] | | | spondylolist | | [address] | | | | | hesis | | [place], | | | | | Acquired | | [place] [address] | | | | | spondylolist | | Phone: | | | | | hesis | | [phone] | | | | | Procedures | | Fax: | | | | | [place] | | [phone] | | | | | POST/POSTERO | [...] + + | 12/12/ | Hospital | [facility] | Sascha Mir, | | | 2015 - | Encounter | MED CTR SURGICAL | DO [address] | | | | | [address] [address] | [address] | | | 12/16/ | | [place] [address] | [address] | | | 2014 | | [phone] | | | +--------+ + + + [...] the patient was admitted to [facility] and underwent a L5-S1 fusion . Patient [...] mobility and she was ultimately discharged to [facility]. Medications Reconciled upon Discharge are: Discharge Medications [...] Discharge: Stable Disposition: Patient was discharged to [facility]. Follow-Up Plans: Follow-up with: Dr. Mir's office in 4 weeks Follow-up with primary care physician as needed. Diet: Resume regular diet Activity: Continue to follow guidelines and precautions as previously discussed. Electronically signed by: Amol Triplett, 12/16/2014 7:45 [facility] documented in this encounter Discharge Instructions Instructions [...] might be different f rom the original. [facility] NEUROSURGERY PROGRESS NOTE Pt. Name/Age/: Demian [...] surgery. She is reay to go [facility] in [place]. No further C/C OBJECTIVE: Patient Vitals for [...] ASSESSMENT:SP L5-S1 fuison Plan:Yoselin Claudio. DC to [facility] today. See DC summary. Electronically signed by: Amol Triplett, 12/16/2014 7:36 [facility] Sascha Beck DO - 12/15/2014 9:20 AM PDT Subjective The patient was seen and examined by me today. She complains of of left tingling - improved from numbness, and left leg dysesthesia. Her l egs feel strong. Moderate surgical pain, but tolerable. She would like to go to SNF in [facility] before discharge home. Objective Filed Vitals: 12/15/14 [...] would like to go to SNF in [facility] before discharge home. Objective Filed Vitals: 12/14/14 [...] Range POC Test, Urine Negative POC Specific [place] Internal QC Acceptable Lot Number [id number] Expiration Date POC GLUCOSE Result Value Ref [...] | | | | | | [place] [address] | | | | | | [phone] | | | | | | | [...] | | | - | | | Marif[place] | | | t, | | | [...] | of hardware for posterior fusion from S4cyzwmop S1 with interbody hardware at L5-S1. | [...] 125 | 70 - 150 mg/dL | [facility] | | | POC | | | [...] ST. | [address] | [place], [place] | [phone] | | [facility] | | [address] | | | - LABORATORY | | [...] Specific | | | | | | [place], | | | | | | POC | | | | | + + + + + + | Internal QC | Acceptable | | | | + + + + + + | Lot Number | [id number] | | | | + + + [...] ST. | [address] | [place], [place] | [phone] | | [facility] | | [address] | | | - LABORATORY | | | | + + + + + Type and Screen (12/12/2014 8:53 AM PDT) + + + + + + | Component | Value | Ref Range | Performed | Pathologist | | | | | At | Signature | + + + + + + | ABO | A | | [facility] | | | | | | ST. [...] | | Screen | | | [facility] | | [...] | [facility] | [address] | [place] | | | [facility] | | [address] | | | - BLOOD BANK | [...] | | | | | | 0935, Lad[place] sharp. Use with | | | | | [...] | | | | | | | [facility] 12/12/14 at 1500, For 2 doses, [...] PDT | | | | | Starting [facility] 12/12/14 at 1433, | | | [...] | | | | First dose on Kathe 12/12/14 at 2100, | | AM PDT | [...] | | | | | | | [facility] 12/12/14 at 1300, For 3 doses, [...] PDT | | | | | Starting [facility] 12/12/14 at 1433, | | | [...] | | | | | Intravenous, ONCE, [facility] 12/12/14 at | | PM PDT [...] | | | | First dose on Kathe 12/12/14 at 2100, | | PM PDT | [...] | | | | | Vomiting, Starting [place] 12/12/14 at | | | | | [...]
--- OUTSIDE RECORDS SUMMARY | ~2019-08-08 | XMS | Encounter Summary ---
Demographics + + + | Address | [address] | | | [place] [address] | + + + | Home Phone [...] Team Providers + +------+ + | Care Survey Coordinator Name | Role | Phone | [...] | | | specified as | | [place], [place] | | | | | acute or | | [address] | | | | | chronic | | Phone: | | | | | Conductive | | [phone] | | | | | hearing | | Fax: | | | | | loss, | | [phone] | | | | | unilateral | [...] | | | [address] | [place], [place] | Dx); Conductive | | | | Mailcode: [id number] | [phone] | hearing loss in | | | | [facility] | [phone] | right ear; Dizziness | | | | [place], [place] | | | | | | [address] | | | | | | [phone] | | | +--------+---------+ + + + [...] me after testing. Windy Rodriguez MD PhD [employer] Employee Otology, Neurotology & Skull Base Surgery documented in this encounter Plan of Treatment Not on filedocumented as of this encounter Procedures + +--------+ + + + | Procedure Name | Priori | Date/Time | Associated Diagnosis | Comments | | | ty | | | | + +--------+ + + + | NC EAR MICROSCOPY | Routin | 12/05/2014 | [...]
--- OUTSIDE RECORDS SUMMARY | ~2019-08-08 | XMS | Encounter Summary ---
Demographics + + + | Address | [address] | | | [place] [address] | + + + | Home Phone [...] | Author | [facility] | | | and Shaneana | + + + | Organization | [facility] [...] [place], [place] | | | | | [address] | | + + + + + | Pratibha Hester | ECON | Unknown | + | + + + + + | Demian Powell | ECON | Unknown | + | + + + + + Care Team Providers + +------+ + | Care Mexican Food Machine Tender Name | Role | Phone | + +------+ + | Quentin Manriquez PA-C | PCP | | + +------+ + Encounter Details +--------+ + + + + | Date | Type | Department | Care Team | Description | +--------+ + + + + | 03/17/ | Hospital | [facility] | Amol Triplett, | Spondylolisthesis of | | 2015 | Encounter | MED CTR XRAY [address] | PA-C [address] | lumbar region | | | | [place] | [address] [place] | L5-S1; S/P lumbar | | | | [place] [address] | [place] [address] | fusion | | | | [phone] | [phone] | | | | | | | [...] tablet by | 30 | 0 | 07/22/20 | | | (ZOFRAN ODT) 4 mg [...] Description | +--------+---------+ + + + | 02/18/ | Office | Cardiology | Rudy Ousllivan, | | | 2019 | Visit | | MD [address] | | | | | | [place], | | | | | | [place] [address] | | | | | | [phone] | | | | | | | [...] through S1 with interbody hardware at | [facility] | | L5-S1. Extensive spondylosis is [...] [address] | [place] | [phone] | | [facility] | | [address] | | | - IMAGING | | | | + + + + + documented in this encounter Visit Diagnoses + + | Diagnosis | + + | Spondylolisthesis of lumbar region L5-S1 Acquired spondylolisthesis | + + | S/P lumbar fusion Arthrodesis status | + + documented in this encounter"
--- OUTSIDE RECORDS SUMMARY | ~2019-08-08 | XMS | Encounter Summary ---
Demographics + + + | Address | [address] | | | [place] [address] | + + + | Home Phone [...] | Author | [facility] | | | and Shaneana | + + + | Organization | [facility] | | | and [place] [...] [place], [place] | | | | | [address] | | + + + + + | Pratibha Hester | ECON | Unknown | + | + + + + + | Demian Powell | ECON | Unknown | + | + + + + + Care Team Providers + +------+ + | Care Tool Crib Attendant Name | Role | Phone | + +------+ + | Quentin Manriquez PA-C | PCP | | + +------+ + Encounter Details +--------+ + + + + | Date | Type | Department | Care Team | Description | +--------+ + + + + | 12/05/ | Hospital | [facility] | Sascha Mir, | | | 2015 | Encounter | MED CTR LABORATORY | DO [address] | | | | | [address] | [address] | | | | | [place], [place] | [id number] | | | | | [address] | | | | | | [phone] | | | +--------+ + + + [...] | | | | | | [place] [address] | | | | | | [phone] | | | | | | | | +--------+---------+ + + + documented as of this encounter Visit Diagnoses Not on filedocumented in this encounter"
--- OUTSIDE RECORDS SUMMARY | ~2019-08-08 | XMS | Encounter Summary ---
Demographics + + + | Address | [address] | | | [place] [address] | + + + | Home Phone [...] | Author | [facility] | | | and [place]ana | + + + | Organization | [facility] | | | and [place] [...] [place], [place] | | | | | [address] | | + + + + + | Pratibha Hester | ECON | Unknown | + | + + + + + | Demian Powell | ECON | Unknown | + | + + + + + Care Team Providers + +------+ + | Care Pile Driver Operator Helper Name | Role | Phone [...] | | [place] | [place] [address] | | | | | [address] | [phone] | | | | | [phone] | | | +--------+--------+ + + + [...] | | | | | | [place] [address] | | | | | | [phone] | | | | | | | | +--------+---------+ + + + documented as of this encounter Visit Diagnoses Not on filedocumented in this encounter"
--- OUTSIDE RECORDS SUMMARY | ~2019-08-08 | XMS | Clinical Summary ---
Demographics + + + | Address | [address] | | | [place] [address] | + + + | Home Phone [...] Providers + +------+ + | Care Cook Fish Eggs Name | Role | Phone | + +------+ + | Gracie Lewis PA-C | PCP | | + +------+ + Source Comments WHITNEY is fully live on both [facility] and [facility] Allergies + + + + [...] Visit | | RD | >= 40) ([facility]) | | | | | | (Primary Dx); Type 2 | | | | | | diabetes mellitus | | | | | | with other specified | | | | | | complication, with | | | | | | long-term current | | | | | | 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 ([facility]) | +--------+ + + + + | 06/27/ | Office | Surgery | Jen Coronel, | Severe obesity ([facility]) | | 2018 | Visit | | [...] + +--------+ + + + | [place] MNT INITIAL | Routin | 06/27/2019 | [...] | | | + +--------+ +--------+-------+---------+--------+ | FOOD SERVICE COORDINATOR MEDICAID | FOOD SERVICE COORDINATOR | [id number] | 08/08/19 | | | Medica | | | [place]AST[place] | | 18-Pre | | | id | | | [place] | | sent | | | | + +--------+ +--------+-------+---------+--------+ | [facility] | | [id number] | Effect | [...] | Self | [birth year] | [address] | | | al/Fam | | 1970 | [phone] | [place] [address] | | | neil | | | 3 (Home) | | + +--------+ +--------+ + + | Demian Nina | Agency | Self | [birth year] | | [address] | | | | | 1970 | [phone] | [place] [address] | | | | | | 3 (Home) | | + +--------+ +--------+ + +
--- OUTSIDE RECORDS SUMMARY | ~2019-08-08 | XMS | Encounter Summary ---
Demographics + + + | Address | [address] | | | [place] [address] | + + + | Home Phone [...] | [facility] | | | and Shaneana | + + + | Organization | [facility] | | [...] [place] | | | | | [address] | | + + + + + | Pratibha Hester | ECON | Unknown | + | + + + + + | Demian Powell | ECON | Unknown | + | + + + + + Care Team Providers + +------+ + | Care Restaurant Cook Name | Role | Phone | [...] pain | [address] | [facility] | | | | | Cervical | [place], [place] | [facility] [place] | | | | | radicular | [address] | [address] Phone: | | | | | pain | Phone: | [phone] | | | | | | [phone] | Fax: | | | | | | Fax: | [phone] | | | | | | [phone] | | +--------+ + + + + + Reason for Visit + + + | Reason | Comments | + + + | Follow-up | Back pain | + + + Encounter Details +--------+---------+ + + + | Date | Type | Department | Care Team | Description | +--------+---------+ + + + | 06/04/ | Office | [facility] | Sascha Mir, | Spondylolisthesis, | | 2014 | Visit | NEUROSURGERY [address] | DO [address] | lumbar region | | | | [address] | [address] [place], [place] | (Primary Dx); S/P | | | | [place] | [address] | lumbar fusion; | | | | [address] | | Lumbar radicular | | | | [phone] | | pain; Cervical | | | [...] m the original. Sascha Mir DO [address] [facility] [address] [place] [address] FAX: NEUROSURGERY FOLLOW-UP CHIEF COMPLAINT: Chief Complaint [...] the patient is not pleased with her [facility] ent. PAST MEDICAL HISTORY: Past Medical History [...] Fusion; Surgeon: Sascha Mir DO; L ocation: [facility] MAIN OR CURRENT MEDICATIONS: Current Outpatient Prescriptions Medication Sig Dispense Refill ALBUTEROL SULFATE IN [facility]; 1-2 puffs every 3-4 hours [...] | | | | | | [place] [address] | | | | | | [phone] | | | | | | | [...] views of the lumbar spine. Posterior | [facility] | | pedicle screw and nayan [...] [address] | [place] | [phone] | | [facility] | | [address] | | | - IMAGING | | [...] of instability. Dictated and Signed by: Mark Henning | | MD Mikal Electronically signed: 06/04/2015 [...] ST[address] | [address] | [place] | [phone] | | [facility] | | [address] | | | - IMAGING | | [...]
--- OUTSIDE RECORDS SUMMARY | ~2019-08-08 | XMS | Encounter Summary ---
Demographics + + + | Address | [address] | | | [place] [address] | + + + | Home Phone [...] | Author | [facility] | | | and [place]ana | + + + | Organization | [facility] | | | and [...] [place] | | | | | [address] | | + + + + + | Pratibha Hester | ECON | Unknown | + | + + + + + | Demian Powell | ECON | Unknown | + | + + + + + Care Team Providers + +------+ + | Care Asset Protection Greeter Name | Role | Phone | + [...] + | 03/31/ | Telephone | [facility] | Sascha Mir, | Medication Problem | | 2014 | | NEUROSURGERY [address] | DO [address] | | | | | [address] [facility] [address] | [address] [place], [place] | | | | | [place] | [id number] | | | | | [address] | | | | | | [phone] | | | +--------+ + + + [...] | | | | | | [place] [address] | | | | | | [phone] | | | | | | | | +--------+---------+ + + + documented as of this encounter Visit Diagnoses Not on filedocumented in this encounter"
--- OUTSIDE RECORDS SUMMARY | ~2019-08-08 | XMS | Encounter Summary ---
Demographics + + + | Address | [address] | | | [place] [address] | + + + | Home Phone [...] Author | [facility] | | | and [place] | + + + | Organization | [facility] | | | and [place] | + + + | Address | Unknown | + + + | Phone | Unavailable | + + + Support + + + + + | Name | Relationship | Address | Phone | + + + + + | Uceh Nina | ECON | [address] | | | | | [place], [place] | | | | | [address] | | + + + + + | Prtaibha Hester | ECON | Unknown | + | + + + + + | Demian Powell | ECON | Unknown | + | + + + + + Care Team Providers + +------+ + | Care Training Intern Name | Role | Phone | [...] + + | 06/20/ | Refill | [facility] | Char Duque | Medication Refill | | 2019 | | PLASTIC SURGERY AND | [employer] [address] | | | | | DERMATOLOGY [address] | [address] | | | | | [address] | [place] [address] | | | | | [place], [place] | [phone] | | | | | [address] | | | | | | [phone] | | | +--------+--------+ + + + [...] | | | | | | [place] [address] | | | | | | [phone] | | | | | | | | +--------+---------+ + + + documented as of this encounter Visit Diagnoses Not on filedocumented in this encounter"
--- OUTSIDE RECORDS SUMMARY | ~2019-08-08 | XMS | Encounter Summary ---
Demographics + + + | Address | [address] | | | [place] [address] | + + + | Home Phone [...] + | Author | [facility] | | | and Shaneana | + + + | Organization | [facility] | | | and [place] | [...] [place] | | | | | [address] | | + + + + + | Pratibha Hester | ECON | Unknown | + | + + + + + | Demian Powell | ECON | Unknown | + | + + + + + Care Team Providers + +------+ + | Care Halftone Operator Name | Role | Phone | [...] | | [address] | [place] | | | | | [place] | | | | | | [address] | | | | | | [phone] | | | +--------+--------+ + + + [...] | | | | | | [place] [address] | | | | | | [phone] | | | | | | | | +--------+---------+ + + + documented as of this encounter Visit Diagnoses + + | Diagnosis | + + | Nausea - Primary Nausea alone | + + documented in this encounter"
--- OUTSIDE RECORDS SUMMARY | ~2019-08-08 | XMS | Encounter Summary ---
Demographics + + + | Address | [address] | | | [place] [address] | + + + | Home Phone [...] + + + | Author | [facility] | + + + | Organization | [facility] | + + + | Address | Unknown | + + + | Phone | Unavailable | + + + Support + + +---------+ + | Name | Relationship | Address | Phone | + + +---------+ + | Alisia Nina | ECON | Unknown | | + + +---------+ + Care Team Providers + +------+ + | Care Radiology Manager Name | Role | Phone | [...] | | | | Gastroesopha | AGACNP [address] | | | | | | geal reflux | [address] | | | | | | disease, | [place], | | | | | | esophagitis | [place] | | | | | | presence not | [address] | | | | | | specified | Phone: | | | | | | Severe | [phone] | | | | | | obesity | Fax: | | | | | | ([facility]) Type | [phone] | | | | | | 2 [...] | Pain | Diagnoses | Berna, | Graphic Design Intern Psych | | | | Management | | Jen Gross, | [address] | | | | | Gastroesopha | AGACNP [address] | | | | | geal reflux | [address] | Mailcode: | | | | | disease, | [place], | [facility] | | | | | esophagitis | [place] | for Health | | | | | presence not | [address] | and Healing, | | | | | specified | Phone: | Building [address], | | | | | Severe | | [address]th Floor | | | | | obesity | Fax: | [place], [place] | | | | | ([facility]) Type | [phone] | [address] | | | | | 2 diabetes | | Phone: | | | | | mellitus | | [phone] | | | | | without | | Fax: | | | | | complication | | [phone] | | | | | , with [...] + Reason for Visit Intake Referral (Routine) + + + + + + + | Status | Reason | Specialty | Diagnoses / | Referred By | Referred To | | | | | Procedures | Contact | Contact | + + + + + + + | Authorized | BAR: | Surgery | Diagnoses | Joshua, | Isak, | | | Scheduled | | Morbid | Gracie Villa, | Satinder Capellan MD | | | with METAL MINER | | (severe) | PA-C | [address] | | | | | obesity due | [place] | Ave | | | | | to excess | [place] | [place], [place] | | | | | calories | Health | [address] | | | | | Obesity, | Center [address] | Phone: | | | | | unspecified | | [phone] | | | | | | [place] | Fax: | | | | | | Way [address] | [phone] | | | | | | [address] | | | | | | | [place], | | | | | | | [place] [address] | | | | | | | Phone: | | | | | | | [phone] | | | | | | | Fax: | | | | | | | [phone] | | + + + + + + + Encounter Details +--------+---------+ + + + | Date | Type | Department | Care Team | Description | +--------+---------+ + + + | 06/27/ | Office | Digestive Health | BernaJen, | Severe obesity (HCC) | | 2019 | Visit | Center at [facility] [address] | AGACNP [address] | (Primary Dx); | | | | [address] | Ave [place], [place] | Gastroesophageal | | | | Mailcode: Center | [address] | reflux disease, | | | | for Health and | [phone] | esophagitis presence | | | | Healing, [address] | | not specified; Type | | | | [place], [place] | | 2 diabetes mellitus | | | | [address] | | without | | | | [phone] | | complication, with | | | | | | long-term current | | | | | | 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 | | | | | | ([facility]); Hx of | | | | | [...] in this encounter Patient Instructions Patient Instructions Jne Coronel AGACNP - 06/27/2019 12:50 PM PST + [...] Pre-op Psychological Evaluation: Your referral is at [facility], the Pain Management Office w ill call you in the next week to schedule. + Hemoglobin A1C will have to be below 8 prior to surgery. + Weight Management classes: 2 classes are required in addition to your private appointme nt with the assembler dc field yoke. These classes will be scheduled apporoximately 1 month apart to allow time for you to put the teaching into action. Please call [phone] to schedule these classes after you have [...] and lifestyle. The patient has seen our [facility] assembler dc field yoke and physical therapy colleagues to discuss exercise [...] a healthy weight. 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 female who presents with a [facility] medical history of morbid obesity with a [...] Redux or Phen/fen: no Transthoracic ECHO: na Hoahaoism or cultural reason you would refuse blood [...] day prior to colonoscopy as directed by [facility]. Discard remaining half jug. Indications: [...] file Gets together: Not on file Attends samaritan service: Not on file Active member of [...] inches / 40 cm around (measure at [employer])? Yes 8. Gender = Male? No High risk of sleep apnea if "yes' to four or more Cardiovascular: HTN on losartan, HLD--on statin Denies exertional chest pain, palpitations, syncope, orthopnea, or paroxysmal nocturnal dy spnea. Denies history of lower extremity edema, . Denies CHF, GA, ischemic heart disease, DV T/PE, or pulmonary [...] ordered -ok to do this locally in [place] -Is a stomach sleeper, may not tolerate [...] Pre-op Psychological Evaluation: Your referral is at [facility], the Pain Management Office w ill call you in the next week to schedule. + Hemoglobin A1C will have to be below 8 prior to surgery. + Weight Management classes: 2 classes are required in addition to your private appointme nt with the assembler dc field yoke. These classes will be scheduled apporoximately 1 month apart to allow time for you to put the teaching into action. Please call [phone] to schedule these classes after you have [...] and lifestyle. The patient has seen our [facility] assembler dc field yoke and physical therapy colleagues to discuss exercise [...] a healthy weight. + Sign up for DoubleUp so that we can communicate easily back [...] other providers does not guarantee that the [facility] Bariatric Surger y program will deem [...] Coronel, MSN, AG-ACNP Bariatric Surgery Nurse Practitioner [facility] | [address] | [place], [place] | [address] | documented in th is encounter Plan [...] | | | | 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 ([facility]) | | | | | | Hx [...] | | | | 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 ([facility]) | | | | | | Hx [...] | | | | | Severe obesity ([facility]) | | | | | | Type 2 diabetes | | | | | | mellitus without | | | | | | complication, with | | | | | | long-term current | | | | | | 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 ([facility]) | | | | | | Hx [...] | | | | | Severe obesity ([facility]) | | | | | | Type 2 diabetes | | | | | | mellitus without | | | | | | complication, with | | | | | | long-term current | | | | | | 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 ([facility]) | | | | | | Hx [...] | | | | | Severe obesity ([facility]) | | | | | | Type 2 diabetes | | | | | | mellitus without | | | | | | complication, with | | | | | | long-term current | | | | | | 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 ([facility]) | | | | | | Hx [...] | | | | | Severe obesity ([facility]) | | | | | | Type 2 diabetes | | | | | | mellitus without | | | | | | complication, with | | | | | | long-term current | | | | | | 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 ([facility]) | | | | | | Hx [...] | | | | 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 ([facility]) | | | | | | Hx [...] | | | | 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 ([facility]) | | | | | | Hx [...]
--- OUTSIDE RECORDS SUMMARY | ~2019-08-08 | XMS | Encounter Summary ---
Demographics + + + | Address | [address] | | | [place] [address] | + + + | Home Phone [...] Team Providers + +------+ + | Care Art Tracer Name | Role | Phone | + [...] | | | | to excess | [place] | Mailcode: | | | | | calories | Health | Center for | | | | | Obesity, | [address] | Health and | | | | | unspecified | | Healing, | | | | | | [place] | [address] | | | | | | Way [address] | [place], [place] | | | | | | [address] | [address] | | | | | | [place], | Phone: | | | | | | [place] [address] | [phone] | | | | | | Phone: | Fax: | | | | | | [phone] | [phone] | | | | | | Fax: | | | | | | | [phone] | | + +--------+ + + + + Encounter Details +--------+---------+ + + + | Date | Type | Department | Care Team | Description | +--------+---------+ + + + | 06/27/ | Office | Digestive Health | Eli Rodas, | Severe obesity (BMI | | 2019 | Visit | Center at [address] | [address] | >= 40) ([facility]) | | | | [address] | [address] | (Primary Dx); Type 2 | | | | Mailcode: Center | [place], [place] | diabetes mellitus | | | | for Health and | [address] | with other specified | | | | Healing, [address] | | complication, with | | | | [place], [place] | | long-term current | | | | [address] | | 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 ([facility]) | | | | [phone] | | | +--------+---------+ + + + [...] of Visit: 1:55 until 2:40 (45 minutes [id number]-[id number] with patient) SUBJECTIVE: Pt comes in alone. Pt shares she usually skips breakfast but snacks a lot in af ternoons and evenings. Pt shares she eats a lot of pizza and drinks a lot of soda. 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 Will finish in two years. When reviewing [...] shares she has access gym on the [employer] 24 hr food recall: Pt has a [...] 2 pre-surgery classes. 4. Call or send TYT ([employer]) message to dietitian with any questions. Contact information was provided. Follow up with dietitian 1-2 weeks after surgery at first post-op visit. Eli Rodas, MS, RDN, CSOWM, LD, CDE [facility] [phone] documented in this e ncounter Plan of Treatment Not on filedocumented as of this encounter Procedures + +--------+ + + + | Procedure Name | Priori | Date/Time | Associated Diagnosis | Comments | | | ty | | | | + +--------+ + + + | [place] MNT INITIAL | Routin | 06/27/2019 | [...]
--- OUTSIDE RECORDS SUMMARY | ~2019-08-08 | XMS | Encounter Summary ---
Demographics + + + | Address | [address] | | | [place] [address] | + + + | Home Phone [...] + | Author | [facility] | | | and Shaneana | + + + | Organization | [facility] | | [...] [place], [place] | | | | | [address] | | + + + + + | Pratibha Hester | ECON | Unknown | + | + + + + + | Demian [place] | ECON | Unknown | + | + + + + + Care Team Providers + +------+ + | Care Large Sheetfed Press Operator Name | Role | Phone [...] | | | n | spine | [address] | [place] | | | | | Spondylolist | [place], | [place], [place] | | | | | hesis of | [place] [address] | [address] Phone: | | | | | lumbar | Phone: | [phone] | | | | | region | [phone] | Fax: | | | | | Degenerative | [phone] Fax: | [phone] | | | | | disc | | | | | | | disease, | [phone] | | | | | | lumbar [...] | | | | | | | ([facility]) | | | | | | | Sacroiliitis | | | | | | | ([facility]) | | | | | | | Trochanteric | | | | | | | bursitis | | | | | | | Diabetes | | | | | | | mellitus | | | | | | | ([facility]) | | | | | | | [...] | | | | | spine | [address] | | | | | | Spondylolist | [place], | | | | | | hesis of | [place] [address] | | | | | | lumbar | Phone: | | | | | | region | [phone] | | | | | | Degenerative | [phone] Fax: | | | | | | disc | | | | | | | disease, | [phone] | | | | | | lumbar [...] | | | | | | | ([facility]) | | | | | | | Sacroiliitis | | | | | | | ([facility]) | | | | | | | Trochanteric | | | | | | | bursitis | | | | | | | Diabetes | | | | | | | mellitus | | | | | | | ([facility]) | | | | | | | Asthma | | | +--------+ + + + + + Encounter Details +--------+---------+ + + + | Date | Type | Department | Care Team | Description | +--------+---------+ + + + | 10/27/ | Office | [facility] | Denilson Jorge | Pars defect of | | 2012 | Visit | NEUR[address]URGERY [address] | MD Denice [address] | lumbar spine L5-S1 | | | | [address] | [address] [place] | (Primary Dx); | | | | [place] | [address] | Spondylolisthesis of | | | | [address] | [phone] | lumbar region | | | | [phone] | | L5-S1; Degenerative | | | | | | disc disease, lumbar | | | | | | L4-5; HIP PAIN, | | | | | | LEFT, CHRONIC; | | | | | | Radiculopathy of | | | | | | lumbar region L5-S1; | | | | | | Morbid obesity | | | | | | ([facility]); Sacroiliitis | | | | | | ([facility]); Trochanteric | | | | | | bursitis; Diabetes | | | | | | mellitus ([facility]); | | | | | | Asthma; [...] slip forward. This is called spondylolisthes is. 5934-8498 [facility], [address] [place] [address]. All rights reserve d. This information is not intended as a substitute for professional medical care. Always fo llow your healthcare professional's instructions. documented in this encounter Progress Notes Denilson Jorge MD - 10/27/2012 11:58 AM PDTFormatting of this note might be differen t from the original. Denilson Jorge MD [address] [place] [address], [address] [place], [place] [address] FAX: NEUROSURGERY FOLLOW-UP CHIEF COMPLAINT: Lumbar spondylolisthesis [...] TABS CIMETIDINE PO TABS ALBUTEROL SULFATE [facility]; 1-2 puffs every 3-4 hours [...] has no apparent deficits with short or 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 designer memory. CRANIAL NERVES: Fundoscopic Exam: The optic [...] Intrinsics 5 5 Ulnar Intrinsics 5 5 Car Shakeout Operator Strength 5 5 Hip Flexion 5 [...] | | | | | | [place] [address] | | | | | | [phone] | | | | | | | [...] obesity | | | | | | ([facility]) Sacroiliitis | | | | | | ([facility]) Trochanteric | | | | | | bursitis Diabetes | | | | | | mellitus ([facility]) | | | | | | Asthma [...] obesity | | | | | | ([facility]) Sacroiliitis | | | | | | ([facility]) Trochanteric | | | | | | bursitis Diabetes | | | | | | mellitus ([facility]) | | | | | | Asthma [...]
--- OUTSIDE RECORDS SUMMARY | ~2019-08-08 | XMS | Encounter Summary ---
Demographics + + + | Address | [address] | | | [place] [address] | + + + | Home Phone [...] Team Providers + +------+ + | Care Quality Process Engineer Name | Role | Phone | [...] | | | | | Procedures | [place], | [facility] | | | | | PHYSICAL | [place] | for Health | | | | | THERAPY | [address] | and Healing, | | | | | REFERRAL | Phone: | [facility] 1, | | | | | | [phone] | [address] | | | | | | Fax: | [place], [place] | | | | | | [phone] | [address] | | | | | | | Phone: | | | | | | | [phone] | | | | | | | Fax: | | | | | | | [phone] | +--------+--------+ + + + + Encounter Details +--------+ + + + + | Date | Type | Department | Care Team | Description | +--------+ + + + + | 05/03/ | Open Developer Operator | Dig[facility]ive [facility] | Jen Coronel, | Morbid obesity (HCC) | | 2019 | | [facility] [address] | AGACNP [address] | (Primary Dx) | | | | [address] | [address] [place], [place] | | | | | Mailcode: [place] | [address] | | | | | for Health and | [phone] | | | | | [facility] 2 | | | | | | [place], [place] | | | | | | [address] | | | | | | [phone] | | | +--------+ + + + [...]
--- OUTSIDE RECORDS SUMMARY | ~2019-08-08 | XMS | Encounter Summary ---
Demographics + + + | Address | [address] | | | [place] [address] | + + + | Home Phone [...] Author | [facility] | | | and Shaneana | + + + | Organization | [facility] | | | and [place] [...] [place] | | | | | [address] | | + + + + + | Pratibha Hester | ECON | Unknown | + | + + + + + | Demian [place] | ECON | Unknown | + | + + + + + Care Team Providers + +------+ + | Care Technical Support Representative Name | Role | Phone | [...] + | 05/25/ | Refill | [facility] | Sascha Mir, | Medication Refill | | 2014 | | NEUROSURGERY [address] | DO [address] | | | | | [address] | [address] [place], [place] | | | | | [place] | [address] | | | | | [address] | | | | | | [phone] | | | +--------+--------+ + + + [...] | | | | | | [place] [address] | | | | | | [phone] | | | | | | | | +--------+---------+ + + + documented as of this encounter Visit Diagnoses Not on filedocumented in this encounter"
--- OUTSIDE RECORDS SUMMARY | ~2019-08-08 | XMS | Encounter Summary ---
Demographics + + + | Address | [address] | | | [place] [address] | + + + | Home Phone [...] | Author | [facility] | | | and Shaneana | + + + | Organization | [facility] | | | and [place] [...] [place], [place] | | | | | [address] | | + + + + + | Pratibha Hester | ECON | Unknown | + | + + + + + | Demian [place] | ECON | Unknown | + | + + + + + Care Team Providers + +------+ + | Care Corporate Lawyer Name | Role | Phone | + [...] [address] | [address] [place], [place] | intervertebral disc | | | | [place] | [address] | without myelopathy | | | | [address] | | (Primary Dx) | | | | [phone] | | | +--------+ + + + [...] | | | | | | [place] [address] | | | | | | [phone] | | | | | | | | +--------+---------+ + + + documented as of this encounter Visit Diagnoses + + | Diagnosis | + + | 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
--- OUTSIDE RECORDS SUMMARY | ~2019-08-08 | XMS | Encounter Summary ---
Demographics + + + | Address | [address] | | | [place] [address] | + + + | Home Phone | | + + + | Preferred Language | Unknown | + + + | Marital Status | Single | + + + | Quaker Affiliation | 1041 | + + + | Race | Unknown | + + + | Ethnic Group | Unknown | + + + Author + + + | Author | [facility] | | | and Shaneana | + + + | Organization | [facility] | | | and [...] [place], [place] | | | | | [address] | | + + + + + | Pratibha Hester | ECON | Unknown | + | + + + + + | Demian [place] | ECON | Unknown | + | + + + + + Care Team Providers + +------+ + | Care Oracle Iam Consultant Name | Role | Phone | [...] [address] | [address] [place], [place] | intervertebral disc | | | | [place], [place] | [address] | without myelopathy | | | | [address] | | (Primary Dx) | | | | [phone] | | | +--------+ + + + [...] [place], | | | | | | [place] [id number] | | | | | | [phone] | | | | | | | [...] + VW dated 09/26/2014 8:51 AM | [facility] | | HISTORY:Back pain COMPARISON: MRI from [facility] dated | [facility] | | June 25, [...] + | Antoine Steele Results In - 09/26/2014 10:50 AM PST EXAM: XR LUMBAR SPINE 4 + VW dated | | 09/26/2014 8:51 AMHISTORY:Back painCOMPARISON: MRI from [facility] dated | | [...] [address] | [place] | [phone] | | [facility] | | [address] | | | - IMAGING | | | | + + + + + documented in this encounter Visit Diagnoses + + | Diagnosis | + + | 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
--- OUTSIDE RECORDS SUMMARY | ~2019-08-08 | XMS | Encounter Summary ---
Demographics + + + | Address | [address] | | | [place] [address] | + + + | Home Phone [...] Author | [facility] | | | and Shaneana | + + + | Organization | [facility] | | | [...] [place] | | | | | [address] | | + + + + + | Pratibha Hester | ECON | Unknown | + | + + + + + | Demian [place] | ECON | Unknown | + | + + + + + Care Team Providers + +------+ + | Care Fat Purification Worker Name | Role | Phone | [...] Description | +--------+--------+ + + + | 03/31/ | Refill | [facility] | Sascha Mir, | Medication Refill | | 2014 | | [address]UR[address] | DO [address] | | | | | [address] | [address] [place], [place] | | | | | [place] | [address] | | | | | [address] | | | | | | [phone] | | | +--------+--------+ + + + [...] | | | | | | [place] [address] | | | | | | [phone] | | | | | | | | +--------+---------+ + + + documented as of this encounter Visit Diagnoses + + | Diagnosis | + + | Nausea - Primary Nausea alone | + + | S/P lumbar fusion Arthrodesis status | + + documented in this encounter"
--- OUTSIDE RECORDS SUMMARY | ~2019-08-08 | XMS | Encounter Summary ---
Demographics + + + | Address | [address] | | | [place] [address] | + + + | Home Phone [...] | [facility] | | | and Shaneana | + + + | Organization | [facility] | | | and [place] [...] [place], [place] | | | | | [address] | | + + + + + [...] + + | 03/17/ | Hospital | [facility] | Amol Triplett, | Spondylolisthesis of | | 2015 | Encounter | MED CTR XRAY [address] | PA-C [address] | lumbar region | | | | [place] | [address] [place] | L5-S1; S/P lumbar | | | | [place] [address] | [place] [address] | fusion | | | | [phone] | [phone] | | | | | | | [...] 02/18/ | Office | Cardiology | Rudy Osullivan, | | | 2019 | Visit | | MD [address] | | | | | | [place], | | | | | | [place] [address] | | | | | | [phone] | | | | | | | [...] through S1 with interbody hardware at | [facility] | | L5-S1. Extensive spondylosis is present [...] S1.Dictated and | | Signed by: Jeison Tincoo MD Electronically signed: 03/17/2015 1:33 PM | [...] [address] | [place] | [phone] | | [facility] | | [address] | | | - IMAGING | | | | + + + + + documented in this encounter Visit Diagnoses + + | Diagnosis | + + | Spondylolisthesis of lumbar region L5-S1 Acquired spondylolisthesis | + + | S/P lumbar fusion Arthrodesis status | + + documented in this encounter"
--- OUTSIDE RECORDS SUMMARY | ~2019-08-08 | XMS | Encounter Summary ---
Demographics + + + | Address | [address] | | | [place] [address] | + + + | Home Phone [...] + | Author | [facility] | | | and Shaneana | + + + | Organization | [facility] | | | and [place] [...] [place] | | | | | [address] | | + + + + + | Pratibha Hester | ECON | Unknown | + | + + + + + | Demian [place] | ECON | Unknown | + | + + + + + Care Team Providers + +------+ + | Care Arch Support Maker Name | Role | Phone | [...] + + | 03/04/ | Telephone | [facility] | Sascha Mir, | Other (medication | | 2014 | | NEUR[address]UR[address]ERY [address] | DO [address] | refill questions) | | | | [facility] | [address] [place] [address] | | | | | [place] | [id number] | | | | | [address] | | | | | | [phone] | | | +--------+ + + + [...] | | | | | | [place] [address] | | | | | | [phone] | | | | | | | | +--------+---------+ + + + documented as of this encounter Visit Diagnoses Not on filedocumented in this encounter"
--- OUTSIDE RECORDS SUMMARY | ~2019-08-08 | XMS | Encounter Summary ---
Demographics + + + | Address | [address] | | | [place] [address] | + + + | Home Phone [...] + + + | Author | [facility] | + + + | Organization | [facility] | + + + | Address | Unknown | + + + | Phone | Unavailable | + + + Support + + +---------+ + | Name | Relationship | Address | Phone | + + +---------+ + | Alisia Nina | ECON | Unknown | | + + +---------+ + Care Team Providers + +------+ + | Care Cardiac Cath Lab Radiology Technologist Name | Role | Phone | + +------+ + | Quentin Manriquez | PCP | | + +------+ + Encounter Details +--------+ + + + + | Date | Type | Department | Care Team | Description | +--------+ + + + + | 02/16/ | Abstract | [facility] | Clinic, | | | 2017 | | [place] [facility] [address] | Gastroenterology | | | | | MAGUI Schreiber | | | | | | Mailcode: [place] | | | | | | [facility] | | | | | | Healing, Building [address] | | | | | | [place], [place] | | | | | | [address] | | | | | | [phone] | | | +--------+ + + + [...]
--- OUTSIDE RECORDS SUMMARY | ~2019-08-08 | XMS | Encounter Summary ---
Demographics + + + | Address | [address] | | | [place] [address] | + + + | Home Phone [...] + | Author | [facility] | | | and Shaneana | + + + | Organization | [facility] | | [...] [place], [place] | | | | | [address] | | + + + + + | Pratibha Hester | ECON | Unknown | + | + + + + + | Demian [place] | ECON | Unknown | + | + + + + + Care Team Providers + +------+ + | Care Lineworker Name | Role | Phone | + +------+ + PCP | Unavailable | + +------+ + Encounter Details +--------+ + + + + | Date | Type | Department | Care Team | Description | +--------+ + + + + | 09/20/ | Hospital | [facility] | Laz Del Valle, | | | 2005 | Encounter | MED CTR GENERIC OP | MD [address] | | | | | CONV DEPT [address] | [address] [facility] | | | | | [place], | [place] [address] | | | | | [place] [address] | [phone] | | | | | [phone] | | | +--------+ + + + [...] [place], | | | | | | [place] [address] | | | | | | [phone] | | | | | | | | +--------+---------+ + + + documented as of this encounter Visit Diagnoses Not on filedocumented in this encounter"
--- OUTSIDE RECORDS SUMMARY | ~2019-08-08 | XMS | Encounter Summary ---
Demographics + + + | Address | [address] | | | [place] [address] | + + + | Home Phone [...] [facility] | | | and Shaneana | + + + | Organization | [facility] | | | and [place] [...] | [place] | | | | | [address] | | + + + + + | Pratibha H[place] | ECON | Unknown | + | + + + + + | Demian [place] | ECON | Unknown | + | + + + + + Care Team Providers + +------+ + | Care Solar Water Heater Installer Name | Role | Phone | [...] | | | spondylolist | | [address] | | | | | hesis | | [place], | | | | | Acquired | | [place] [address] | | | | | spondylolist | | Phone: | | | | | hesis | | [phone] | | | | | Procedures | | Fax: | | | | | ID ARTHDSIS | | [phone] | | | | | POST/POSTERO | [...] + + | 12/12/ | Anesthesia | [facility] | Rafat Laz | | | 2014 | Event | MED CTR OR INTRA OP | MD Jennifer [address] | | | | | [address] | [place] | | | | | [place] | [address] | | | | | [address] | | | | | | [phone] | | | +--------+ + + + [...] +----+---+ + + | | 0 | [place] | | | | 9 | 43-degrees [...] +----+---+ + + | | 1 | [place] off | | | | 2 | [...] RN | | Site | expectations; 12/14/14; 0956 | | | +--------+ + + + | [READ | 12/12/14; 0850; Blood Bank, Other | 12/12/14849 by | 12/14/141944 by | | ONLY] [...] | Airway | Placement Date: 12/12/14; | 12/12/14 0952 by | 12/12/14 1228 by | | [...] | | | | | | [place] [address] | | | | | | [phone] | | | | | | | [...] | | | | | Breath, Starting [facility] 12/12/14 at | | PM PDT [...] | | | | to Incision, Starting [facility] 12/12/14 | | | | | [...] | | | | | PRN, Starting [facility] 12/12/14 at 0949, | | AM [...] 11:14 | | | | | Starting [facility] 12/12/14 at 0947, | | AM [...] | | | | CONTINUOUS, Starting [place] 12/12/14 | | AM PDT [...]
--- OUTSIDE RECORDS SUMMARY | ~2019-08-08 | XMS | Encounter Summary ---
Demographics + + + | Address | [address] | | | [place] [address] | + + + | Home Phone [...] Author | [facility] | | | and Shaneana | + + + | Organization | [facility] | [...] [place], [place] | | | | | [address] | | + + + + + | Pratibha Hester | ECON | Unknown | + | + + + + + | Demian [place] | ECON | Unknown | + | + + + + + Care Team Providers + +------+ + | Care Project Assistant Name | Role | Phone | [...] | | [place] | [place] [address] | | | | | [address] | [phone] | | | | | [phone] | | | +--------+--------+ + + + [...] | | | | | | [place] [address] | | | | | | [phone] | | | | | | | | +--------+---------+ + + + documented as of this encounter Visit Diagnoses Not on filedocumented in this encounter"
--- OUTSIDE RECORDS SUMMARY | ~2019-08-08 | XMS | Encounter Summary ---
Demographics + + + | Address | [address] | | | [place] [address] | + + + | Home Phone [...] | Author | [facility] | | | and Shaneana | + + + | Organization | [facility] | | | and [...] [place] | | | | | [address] | | + + + + + | Pratibha Hester | ECON | Unknown | + | + + + + + | Demian [place] | ECON | Unknown | + | + + + + + Care Team Providers + +------+ + | Care Leasing Consultant Name | Role | Phone | [...] + | 01/06/ | Telephone | [facility] | Sascha Mir, | Other | | 2014 | | NEUR[address]URGERY [address] | DO [address] | | | | | [address] [facility] | [address] [place], [place] | | | | | [place], [place] | [id number] | | | | | [address] | | | | | | [phone] | | | +--------+ + + + [...] | | | | | | [place] [address] | | | | | | [phone] | | | | | | | | +--------+---------+ + + + documented as of this encounter Visit Diagnoses Not on filedocumented in this encounter"
--- OUTSIDE RECORDS SUMMARY | ~2019-08-08 | XMS | Encounter Summary ---
Demographics + + + | Address | [address] | | | [place] [address] | + + + | Home Phone [...] Author | [facility] | | | and Shaneana | + + + | Organization | [facility] | | [...] [place] | | | | | [address] | | + + + + + | Pratibha Hester | ECON | Unknown | + | + + + + + | Demian [place] | ECON | Unknown | + | + + + + + Care Team Providers + +------+ + | Care Wind Field Manager Name | Role | Phone | [...] + + | 12/05/ | Office | 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 ANNETTE Gutierrez [address] [facility], [address] [place] [address] FAX: NEUROSURGERY HISTORY AND PHYSICAL [...] began insidiously, but is worse over the two years. Since that time the patient [...] or character of her symptoms since her t visit. She denies any shortness of [...] has no apparent deficits with short or director long term care memory. CRANIAL NERVES: II: Acuity is intact. [...] [address] | | | | | | [place], | | | | | | [place] [address] | | | | | | [phone] | | | | | | | [...]
--- OUTSIDE RECORDS SUMMARY | ~2019-08-08 | XMS | Encounter Summary ---
Demographics + + + | Address | [address] | | | [place] [address] | + + + | Home Phone [...] | Author | [facility] | | | and Shaneana | + + + | Organization | [facility] | | | and [...] [place] | | | | | [address] | | + + + + + | Pratibha Hester | ECON | Unknown | + | + + + + + | Dem[place] | ECON | Unknown | + | + + + + + Care Team Providers + +------+ + | Care Casing Runner Name | Role | Phone | + [...] | | | lumbar | [address] [place] [address] | | | | | spinal | [address] | [address] | | | | | fusion Back | [place], [place] | AVE | | | | | pain, | [address] | [place], [place] | | | | | unspecified | Phone: | [address] | | | | | location | [phone] | Phone: | | | | | Radiculopath | Fax: | [phone] | | | | | y, | [phone] | Fax: | | | | | unspecified | | [phone] | | | | | spinal | [...] + + | 04/03/ | Telephone | [facility] | Sascha Mir, | Imaging Only | | 2014 | | NEUR[address]URGERY [address] | DO [address] | | | | | [address] | [address] [place], [place] | | | | | [place], [place] | [id number] | | | | | [address] | | | | | | [phone] | | | +--------+ + + + [...] | | | | | | [place] [address] | | | | | | [phone] | | | | | | | [...]
--- OUTSIDE RECORDS SUMMARY | ~2019-08-08 | XMS | Encounter Summary ---
Demographics + + + | Address | [address] | | | [place] [address] | + + + | Home Phone [...] | Author | [facility] | | | and Shaneana | + + + | Organization | [facility] | | | and [...] [place] | | | | | [address] | | + + + + + | Pratibha Hester | ECON | Unknown | + | + + + + + | Dem[place] | ECON | Unknown | + | + + + + + Care Team Providers + +------+ + | Care Auto Body Shop Manager Name | Role | Phone | [...] + + | 06/23/ | Telephone | [facility] | Sacsha Mir, | Other | | 2014 | | NEUR[address]URGERY [address] | DO [address] | | | | | [address] [facility] | [address] [place], [place] | | | | | [place], [place] | [id number] | | | | | [address] | | | | | | [phone] | | | +--------+ + + + [...] | | | | | | [place] [address] | | | | | | [phone] | | | | | | | | +--------+---------+ + + + documented as of this encounter Visit Diagnoses Not on filedocumented in this encounter"
--- OUTSIDE RECORDS SUMMARY | ~2019-08-08 | XMS | Encounter Summary ---
Demographics + + + | Address | [address] | | | [place] [address] | + + + | Home Phone [...] | [facility] | | | and [place] | + + + | Organization | [facility] | | | and [place] [...] [place], [place] | | | | | [address] | | + + + + + | Pratibha Hester | ECON | Unknown | + | + + + + + | Demian Powell | ECON | Unknown | + | + + + + + Care Team Providers + +------+ + | Care Farm Helper Name | Role | Phone | + +------+ + | Quentin Manriquez PA-C | PCP | | + +------+ + Encounter Details +--------+ + + + + | Date | Type | Department | Care Team | Description | +--------+ + + + + | 01/15/ | Hospital | [facility] | Sascha Mir, | Status post lumbar | | 2015 | Encounter | MED CTR XRAY [address] | DO [address] | spinal fusion | | | | [place] | [address] | | | | | [place] [address] | [address] | | | | | [phone] | | | +--------+ + + + [...] | | | | | | [place] [address] | | | | | | [phone] | | | | | | | [...] RADIOGRAPHS DECEMBER 13 AND SEPTEMBER 26 | [facility] | | FINDINGS: Five non rib-bearing, lumbar type vertebrae are | [facility] | | visible. Interbody and posterior nayan [...] ST. | [address] | [place], [place] | [phone] | | [facility] | | [address] | | | - IMAGING | | | | + + + + + documented in this encounter Visit Diagnoses + + | Diagnosis | + + | Status post lumbar spinal fusion Arthrodesis status | + + documented in this encounter"
--- OUTSIDE RECORDS SUMMARY | ~2019-08-08 | XMS | Encounter Summary ---
Demographics + + + | Address | [address] | | | [place] [address] | + + + | Home Phone [...] | Author | [facility] | | | and [place] | + + + | Organization | [facility] | | | and [...] [place], [place] | | | | | [address] | | + + + + + | Pratibha Hester | ECON | Unknown | + | + + + + + | Demian Powell | ECON | Unknown | + | + + + + + Care Team Providers + +------+ + | Care Associate Professor Of Automation Name | Role | Phone | + +------+ + PCP | Unavailable | + +------+ + Encounter Details +--------+ + + + + | Date | Type | Department | Care Team | Description | +--------+ + + + + | 05/31/ | Hospital | [facility] | | | | 1999 | Encounter | MED CTR MP INTRA OP | | | | | | [address] | | | | | | [place] | | | | | | [address] | | | | | | [phone] | | | +--------+ + + + [...] | | | | | | [place] [address] | | | | | | [phone] | | | | | | | | +--------+---------+ + + + documented as of this encounter Visit Diagnoses Not on filedocumented in this encounter"
--- OUTSIDE RECORDS SUMMARY | ~2019-08-08 | XMS | Encounter Summary ---
Demographics + + + | Address | [address] | | | [place] [address] | + + + | Home Phone [...] | Author | [facility] | | | and [place] | + + + | Organization | [facility] | | | and [...] [place], [place] | | | | | [address] | | + + + + + | Pratibha Hester | ECON | Unknown | + | + + + + + | Demian Powell | ECON | Unknown | + | + + + + + Care Team Providers + +------+ + | Care Product Director Name | Role | Phone | [...] [address] | [address] [place], [place] | | | | | [place], [place] | [id number] | | | | | [address] | | | | | | [phone] | | | +--------+ + + + [...] | | | | | | [place] [address] | | | | | | [phone] | | | | | | | | +--------+---------+ + + + documented as of this encounter Visit Diagnoses Not on filedocumented in this encounter"
--- OUTSIDE RECORDS SUMMARY | ~2019-08-08 | XMS | Encounter Summary ---
Demographics + + + | Address | [address] | | | [place] [address] | + + + | Home Phone [...] + | Author | [facility] | | | and [place] | + + + | Organization | [facility] | | | and [...] [place], [place] | | | | | [address] | | + + + + + | Pratibha Hester | ECON | Unknown | + | + + + + + | Demian Powell | ECON | Unknown | + | + + + + + Care Team Providers + +------+ + | Care Partner Name | Role | Phone | + +------+ + | Quentin Manriquez PA-C | PCP | | + +------+ + Encounter Details +--------+ + + + + | Date | Type | Department | Care Team | Description | +--------+ + + + + | 06/04/ | Hospital | [facility] | Sascha Mir, | Cervical radicular | | 2015 | Encounter | MED CTR XRAY [address] | DO [address] | pain | | | | [place] | [address] | | | | | [place] [address] | [id number] | | | | | [phone] | | | +--------+ + + + [...] | | | | | | [place] [address] | | | | | | [phone] | | | | | | | [...] lateral and lateral flexion-extension views of | [facility] | | the cervical spine. Spine [...] + | [facility] | [address] | [place], [place] | [phone] | | [facility] | | [address] | | | - IMAGING | | | | + + + + + documented in this encounter Visit Diagnoses + + | Diagnosis | + + | Cervical radicular pain Brachial neuritis or radiculitis nos | + + documented in this encounter"
--- OUTSIDE RECORDS SUMMARY | ~2019-08-08 | XMS | Encounter Summary ---
Demographics + + + | Address | [address] | | | [place] [address] | + + + | Home Phone [...] Providers + +------+ + | Care Production Editor Name | Role | Phone | + +------+ + | Gracie Lewis PA-C | PCP | | + +------+ + Encounter Details +--------+ + + + + | Date | Type | Department | Care Team | Description | +--------+ + + + + | 04/26/ | Documentati | Digestive Health | Clinic, Surgery | | | 2019 | on | [place] at [facility] [address] | | | | | | [address] | | | | | | Mailcode: Center | | | | | | for Health and | | | | | | Healing, Building [address] | | | | | | [facility] [place] | | | | | | [address] | | | | | | [phone] | | | +--------+ + + + [...]
--- OUTSIDE RECORDS SUMMARY | ~2019-08-08 | XMS | Encounter Summary ---
Demographics + + + | Address | [address] | | | [place] [address] | + + + | Home Phone [...] Team Providers + +------+ + | Care Licensed Land Surveyor Name | Role | Phone | + +------+ + | Soniya Sinha [facility] | PCP | | + +------+ + Encounter Details +--------+ + + + + | Date | Type | Department | Care Team | Description | +--------+ + + + + | 10/03/ | Plant Guard | Otolaryngology | Windy Mcelan | Dizziness (Primary | | 2013 | | Otology Services at | MD Loli [address] | Dx); Hearing loss | | | | [address] | | | | | [address] | [facility] [place] | | | | | Mailcode: PV01 | [address] | | | | | [facility] | [phone] | | | | | [place], [place] | | | | | | [address] | | | | | | [phone] | | | +--------+ + + + [...]
--- OUTSIDE RECORDS SUMMARY | ~2019-08-08 | XMS | Encounter Summary ---
Demographics + + + | Address | [address] | | | [place] [address] | + + + | Home Phone [...] | Author | [facility] | | | and [place] | + + + | Organization | [facility] | | [...] [place], [place] | | | | | [address] | | + + + + + | Pratibha Hester | ECON | Unknown | + | + + + + + | Demian Powell | ECON | Unknown | + | + + + + + Care Team Providers + +------+ + | Care Telegraph Equipment Maintainer Name | Role | Phone | + [...] + + | 08/23/ | Telephone | [facility] | Denilson Jorge | Other (Schedule MRI | | 2012 | | NEUROSURGERY [address] | F[address] | ) | | | | [address] | [address] [place] [address] | | | | | [place] | [address] | | | | | [address] | [phone] | | | | | [phone] | | | +--------+ + + + [...] | | | | | | [place] [address] | | | | | | [phone] | | | | | | | | +--------+---------+ + + + documented as of this encounter Visit Diagnoses Not on filedocumented in this encounter"
--- OUTSIDE RECORDS SUMMARY | ~2019-08-08 | XMS | Encounter Summary ---
Demographics + + + | Address | [address] | | | [place] [address] | + + + | Home Phone [...] Team Providers + +------+ + | Care Broadcast Operations Director Name | Role | Phone | [...] at | | | | | | [facility] | | | | | | [address] | | | | | | Mail Code: OC8PM | | | | | | [facility] | | | | | | and Healing, | | | | | | [address] | | | | | | [place], [place] | | | | | | [address] | | | | | | [phone] | | | +--------+ + + + [...]
--- OUTSIDE RECORDS SUMMARY | ~2019-08-08 | XMS | Encounter Summary ---
Demographics + + + | Address | [address] | | | [place] [address] | + + + | Home Phone [...] + + | Author | [facility] | | | and [place] | + + + | Organization | [facility] | | | and [place] [...] [place] | | | | | [address] | | + + + + + | Pratibha Hester | ECON | Unknown | + | + + + + + | Demian Powell | ECON | Unknown | + | + + + + + Care Team Providers + +------+ + | Care Senior Reactor Operator Name | Role | Phone [...] + + | 06/23/ | Telephone | [facility] | Sascha Mir, | Other | | 2014 | | NEUROSURGERY [address] | DO [address] | | | | | [address] [facility] [address] | [address] [place], [place] | | | | | [place], [place] | [id number] | | | | | [address] | | | | | | [phone] | | | +--------+ + + + [...] | | | | | | [place] [address] | | | | | | [phone] | | | | | | | | +--------+---------+ + + + documented as of this encounter Visit Diagnoses Not on filedocumented in this encounter"
--- OUTSIDE RECORDS SUMMARY | ~2019-08-08 | XMS | Encounter Summary ---
Demographics + + + | Address | [address] | | | [place] [address] | + + + | Home Phone [...] + + + | Author | [facility] | | | and [place] | + + + | Organization | [facility] | | | and [place] | + + + | Address | Unknown | + + + | Phone | Unavailable | + + + Support + + + + + | Name | Relationship | Address | Phone | + + + + + | Uche Nina | ECON | [address] | | | | | [place], [place] | | | | | [address] | | + + + + + | Pratibha Hester | ECON | Unknown | + | + + + + + | Demian Powell | ECON | Unknown | + | + + + + + Care Team Providers + +------+ + | Care Cardiograph Operator Name | Role | Phone | + +------+ + | Quentin Manriquez PA-C | PCP | | + +------+ + Encounter Details +--------+ + + + + | Date | Type | Department | Care Team | Description | +--------+ + + + + | 12/05/ | Preadmit | [facility] | Sascha Mir, | Bilateral lumbar | | 2014 | Visit | MED CTR PREADMIT | DO [address] | radiculopathy; HIP | | | | CLINIC [address] | [address] [place], [place] | PAIN, LEFT, CHRONIC; | | | | [place], [place] | [id number] | Spondylolisthesis | | | | [address] | | of lumbar region | | [...] | | | | | | [place] [address] | | | | | | [phone] | | | | | | | [...] [address] | [place] | [phone] | | [facility] | | [address] | | | - LABORATORY | | [...] [address] | [place] | [phone] | | [facility] | | [address] | | | - LABORATORY | | [...] 108 | 70 - 109 mg/dL | [facility] | | | | | [facility] | | | | | | MEDICAL | | | | | | CENTER - | | | | | | LABORATORY | | + + + + + + | BUN | 11 | 7 - 18 mg/dL | [facility] | | | | | | [facility] | | | | | | MEDICAL | | | | | | CENTER - | | | | | | LABORATORY | | + + + + + + | Creatinine | 0.71 | 0.60 - 1.30 | [facility] | | | | | mg/dL | [facility] | | | | | | MEDICAL | | | | | | CENTER - | | | | | | LABORATORY | | + + + + + + | eGFR if not | >60Comment: GLOMERULAR | >=60 | [facility] | | | | FILTRATION | mL/min/1.73m2 | TERI | | | RUSSIAN | RATE,ESTIMATED | | MEDICAL | | | | mL/min/1.31u6Hjhc than | | CENTER - | | [...] [address] | [place] | [phone] | | [facility] | | [address] | | | - LABORATORY | | [...] ST. | [address] | [place], [place] | [phone] | | [facility] | | [address] | | | - LABORATORY | | [...]
--- OUTSIDE RECORDS SUMMARY | ~2019-08-08 | XMS | Encounter Summary ---
Demographics + + + | Address | [address] | | | [place] [address] | + + + | Home Phone [...] Team Providers + +------+ + | Care Electrophysiology Scientist Name | Role | Phone | + +------+ + | Gracie Lewis PA-C | PCP | | + +------+ + Encounter Details +--------+ + + + + | Date | Type | Department | Care Team | Description | +--------+ + + + + | 05/03/ | Documentati | Digestive Health | Clinic, Surgery | | | 2019 | on | [place] at [facility] [address] | | | | | | [address] | | | | | | Mailcode: Center | | | | | | for Health and | | | | | | Healing, [address] | | | | | | [facility] [place] | | | | | | [address] | | | | | | [phone] | | | +--------+ + + + [...]
--- OUTSIDE RECORDS SUMMARY | ~2019-08-08 | XMS | Encounter Summary ---
Demographics + + + | Address | [address] | | | [place] [address] | + + + | Home Phone [...] Author | [facility] | | | and [place] | + + + | Organization | [facility] | | [...] [place], [place] | | | | | [address] | | + + + + + | Pratibha Hester | ECON | Unknown | + | + + + + + | Demian Powell | ECON | Unknown | + | + + + + + Care Team Providers + +------+ + | Care Watch Repair Person Name | Role | Phone | + +------+ + | Jannette Boyle PA-C | PCP | | + +------+ + Encounter Details +--------+ + + + + | Date | Type | Department | Care Team | Description | +--------+ + + + + | 02/28/ | Orders Only | [facility] | Provider, | | | 2019 | | SYSTEM GENERIC OP | [address] | | | | | CONVERSION [address] | [address]. | | | | | [address] [place], [place] | [place] [address] | | | | | [address] | | | | | | [phone] | | | +--------+ + + + [...] [place], | | | | | | [place] [address] | | | | | | [phone] | | | | | | | | +--------+---------+ + + + documented as of this encounter Visit Diagnoses Not on filedocumented in this encounter"
--- OUTSIDE RECORDS SUMMARY | ~2019-08-08 | XMS | Encounter Summary ---
Demographics + + + | Address | [address] | | | [place] [address] | + + + | Home Phone | | + + + | Preferred Language | Unknown | + + + | Marital Status | Single | + + + | Rastafari Affiliation | CAT | + + + [...] Providers + +------+ + | Care Community Support Associate Name | Role | Phone | + +------+ + | Gracie Lewis PA-C | PCP | | + +------+ + Encounter Details +--------+--------+ + + + | Date | Type | Department | Care Team | Description | +--------+--------+ + + + | 11/20/ | Travel | | | | | [...]
--- OUTSIDE RECORDS SUMMARY | ~2019-08-08 | XMS | Encounter Summary ---
Demographics + + + | Address | [address] | | | [place] [address] | + + + | Home Phone | | + + + | Preferred Language | Unknown | + + + | Marital Status | Single | + + + | Baptist Affiliation | CAT | + + + [...] Team Providers + +------+ + | Care Kayak Maker Name | Role | Phone | [...] on | Otology Services at | [facility] | | | | | [address] [place], [place] | | | | | [address] | [address] | | | | | Mailcode: PV01 | | | | | | [facility] | | | | | | [place], [place] | | | | | | [address] | | | | | | [phone] | | | +--------+ + + + [...]
--- OUTSIDE RECORDS SUMMARY | ~2019-08-08 | XMS | Encounter Summary ---
Demographics + + + | Address | [address] | | | [place] [address] | + + + | Home Phone [...] + | Author | [facility] | | | and [place] | + + + | Organization | [facility] | | | [...] [place], [place] | | | | | [address] | | + + + + + | Pratibha Hester | ECON | Unknown | + | + + + + + | Demian Powell | ECON | Unknown | + | + + + + + Care Team Providers + +------+ + | Care Electronic Assembly Name | Role | Phone | + [...] + + | 10/11/ | Telephone | [facility] | Denilson Jorge | Other (Appointment | | 2012 | | NEUROSURGERY [address] | F, [address] | cancellation due to | | | | [address] | [address] [place] [address] | insurance ) | | | | [place] | [address] | | | | | [address] | [phone] | | | | | [phone] | | | +--------+ + + + [...] | | | | | | [place] [address] | | | | | | [phone] | | | | | | | | +--------+---------+ + + + documented as of this encounter Visit Diagnoses Not on filedocumented in this encounter"
--- OUTSIDE RECORDS SUMMARY | ~2019-08-08 | XMS | Encounter Summary ---
Demographics + + + | Address | [address] | | | [place] [address] | + + + | Home Phone [...] Providers + +------+ + | Care Rn Case Mgr Name | Role | Phone | + +------+ + | Qeuntin Cordon | PCP | | + +------+ [...] | | | | Nonsuppurati | | [place], [place] | | | | | ve otitis | | [address] | | | | | media, not | | Phone: | | | | | specified as | | [phone] | | | | | acute or | | Fax: | | | | | chronic | | [phone] | | | | | Conductive | [...] | | [address] | bilateral (Primary | | | | [address] | [place], [place] | Dx); OME (otitis | | | | Mailcode: PV01 | [address] | media with | | | | [facility] | [phone] | effusion), right; | | | | [place], [place] | | Conductive hearing | | | | [address] | | loss in right ear; | | | | [phone] | | Dizziness; Nausea | +--------+---------+ + [...] No spontaneous nystagmus. Normal head thrust. Normal nodosl-uz-pydx and rapid alternat ing motion. Negative Romberg. [...] with new audiogram. Windy Rodriguez MD PhD Hand Fretted Instrument Maker Otology, Neurotology & Skull Base Surgery documented in this encounter Plan of Treatment Not on filedocumented as of this encounter Procedures + +--------+ + + + | Procedure Name | Priori | Date/Time | Associated Diagnosis | Comments | | | ty | | | | + +--------+ + + + | ME CREATE EARDRUM | Routin | 04/01/2014 | [...]
--- OUTSIDE RECORDS SUMMARY | ~2019-08-08 | XMS | Encounter Summary ---
Demographics + + + | Address | [address] | | | [place] [address] | + + + | Home Phone [...] Author | [facility] | | | and [place] | + + + | Organization | [facility] [...] [place], [place] | | | | | [address] | | + + + + + | Pratibha Hester | ECON | Unknown | + | + + + + + | Ana Maria Powell | ECON | Unknown | + | + + + + + Care Team Providers + +------+ + | Care Telephone Claims Representative Name | Role | Phone | [...] Procedures | MD [address] | | | | | MRI Lumbar | [address] | [address] [place] | | | | | Spine wo | [place], | [place], [place] | | | | | Contrast | [place] [address] | [address] | | | | | | Phone: | Phone: | | | | | | [phone] | [phone] | | | | | | [phone] Fax: | Fax: | | | | | | | | | | | | | [phone] | | +--------+--------+ + + + + Encounter Details +--------+ + + + + | Date | Type | Department | Care Team | Description | +--------+ + + + + | 09/08/ | Hospital | [facility] | Denilson Jorge | Back pain | | 2012 - | Encounter | MED CTR XRAY [address] | [address], [address] | | | | | [place] | [place], [place] | | | 09/10/ | | [place] [address] | [address] | | | 2012 | | [phone] | [phone] | | | | | | | [...] | | | | | | [place] [address] | | | | | | [phone] | | | | | | | [...] Performed At | + + + | [facility] Diagnostic Imaging | [place] | | Department [facility] [address] [place] | [facility] | | [ rep ct [address]] [ rep ct [facility] | | st zip] Signed | - IMAGING | | | | | Patient Name: ANA MARIA TURCIOS Physician: | | | ARRE.01 : 1970 Age: 42 Sex: F Unit #: [id number] | | | Exam Date: 09/08/12 Location: [facility] | | | Report #: [id number] Page: | | | %(RAD)RES..mtdd.print.filter("pg") of %(RAD) | | | RES..mtdd.print.filter("tpg") | | | | | | Accession Number: [id number] | | | UNENHANCED MRI LUMBAR SPINE, [...] Transcribed | | | Date/Time: 09/08/2012 12:56 Lease Broker: | | | <<Signature on File>> | | | Jayden Wyatt | | | MD Rush09/09/12 1986 <Electronically signed by Jayden Beverly MD> | | | Jayden Beverly MD 09/08/12 1233 Lease Broker: | | | [facility] Atxywcytrcuof62/01/13 1[address] Denil[address] Jorge, | | | | | + + + + + + + + | Performing | Address | City/State/Zipcode | Phone Number | | Organization | | | | + + + + + | [facility] | [address] | [place] | [phone] | | [facility] | | [address] | | | - IMAGING | | | | + + + + + documented in this encounter Visit Diagnoses + + | Diagnosis | + + | Back pain Backache, unspecified | + + documented in this encounter
--- OUTSIDE RECORDS SUMMARY | ~2019-08-08 | XMS | Encounter Summary ---
Demographics + + + | Address | [address] | | | [place] [address] | + + + | Home Phone [...] Team Providers + +------+ + | Care Follow Up Clerk Name | Role | Phone | [...] [address] | | | | | | [place], [place] | | | | | | [address] | | | | | | [phone] | | | +--------+ + + + [...] to mild conductive hearing loss. A speech reception specialist threshold was o btained at 30 dB HL and is in good agreement with responses to pure-tone stimuli. Word clau gnition ability was 100% when words were presented at a comfortable level of 65 dB HL. Left Ear: Near normal hearing with a conductive loss below 2000 Hz; mild sensorineural he aring loss at 8000 Hz. A speech reception specialist threshold was obtained at 20 dB HL [...]
--- OUTSIDE RECORDS SUMMARY | ~2019-08-08 | XMS | Encounter Summary ---
Demographics + + + | Address | [address] | | | [place] [address] | + + + | Home Phone [...] Author | [facility] | | | and [place] | + + + | Organization | [facility] | | | and [...] [place], [place] | | | | | [address] | | + + + + + | Pratibha Hester | ECON | Unknown | + | + + + + + | Demian Powell | ECON | Unknown | + | + + + + + Care Team Providers + +------+ + | Care Feather Boner Name | Role | Phone | + +------+ + | Quentin Manriquez PA-C | PCP | | + +------+ + Encounter Details +--------+ + + + + | Date | Type | Department | Care Team | Description | +--------+ + + + + | 12/03/ | Orders Only | [facility] | Sascha Mir, | Status post lumbar | | 2014 | | NEUROSURGERY [address] | DO [address] | spinal fusion | | | | [address] | [address] [place], [place] | (Primary Dx) | | | | [place], [place] | [id number] | | | | | [address] | | | | | | [phone] | | | +--------+ + + + [...] BACK, | | | | | | [place] [address] | | | | | | [phone] | | | | | | | [...] RADIOGRAPHS DECEMBER 13 AND SEPTEMBER 26 | [facility] | | FINDINGS: Five non rib-bearing, lumbar [...] [address] | [place] | [phone] | | [facility] | | [address] | | | - IMAGING | | | | + + + + + documented in this encounter Visit Diagnoses + + | Diagnosis | + + | Status post lumbar spinal fusion - Primary Arthrodesis status | + + documented in this encounter"
--- OUTSIDE RECORDS SUMMARY | ~2019-08-08 | XMS | Encounter Summary ---
Demographics + + + | Address | [address] | | | [place] [address] | + + + | Home Phone [...] + | Author | [facility] | | | and [place] | + + + | Organization | [facility] | | | and [place] [...] [place] | | | | | [address] | | + + + + + | Pratibha Hester | ECON | Unknown | + | + + + + + | Demian Powell | ECON | Unknown | + | + + + + + Care Team Providers + +------+ + | Care Data Coordinator Name | Role | Phone | [...] | 05/05/ | Telephone | [facility] | Sascha Mir, | Other | | 2014 | | NEUROSURGERY [address] | DO [address] | | | | | [facility] | [address] [place], [place] | | | | | [place], [place] | [id number] | | | | | [address] | | | | | | [phone] | | | +--------+ + + + [...] | | | | | | [place] [address] | | | | | | [phone] | | | | | | | | +--------+---------+ + + + documented as of this encounter Visit Diagnoses Not on filedocumented in this encounter"
--- OUTSIDE RECORDS SUMMARY | ~2019-08-08 | XMS | Encounter Summary ---
Demographics + + + | Address | [address] | | | [place] [address] | + + + | Home Phone [...] [facility] | | | and [place] | + + + | Organization | [facility] | | | [...] [place], [place] | | | | | [address] | | + + + + + | Pratibha Hester | ECON | Unknown | + | + + + + + | Demian Powell | ECON | Unknown | + | + + + + + Care Team Providers + +------+ + | Care Nursing Service Director Name | Role | Phone | + +------+ + PCP | Unavailable | + +------+ + Encounter Details +--------+ + + + + | Date | Type | Department | Care Team | Description | +--------+ + + + + | 05/31/ | Hospital | [facility] | | | | 1999 | Encounter | MED CTR MP INTRA OP | | | | | | [address] | | | | | | [place] | | | | | | [address] | | | | | | [phone] | | | +--------+ + + + [...] | | | | | | [place] [address] | | | | | | [phone] | | | | | | | | +--------+---------+ + + + documented as of this encounter Visit Diagnoses Not on filedocumented in this encounter"
--- OUTSIDE RECORDS SUMMARY | ~2019-08-08 | XMS | Encounter Summary ---
Demographics + + + | Address | [address] | | | [place] [address] | + + + | Home Phone [...] | Author | [facility] | | | and [place] | + + + | Organization | [facility] | | | and [place] | [...] [place], [place] | | | | | [address] | | + + + + + | Pratibha Hester | ECON | Unknown | + | + + + + + | Demian Powell | ECON | Unknown | + | + + + + + Care Team Providers + +------+ + | Care Claims Agent Right Of Way Name | Role | Phone | + [...] [address] | [address] [place] | (Primary Dx); HIP | | | | [place], [place] | [address] | PAIN, LEFT, CHRONIC; | | | | [address] | | Spondylolisthesis | | | | [phone] | | of lumbar region | | [...] | | | | | | [place] [address] | | | | | | [phone] | | | | | | | [...] + | [facility] | [address] | [place], [place] | [phone] | | [facility] | | [address] | | | - IMAGING | | [...] [address] | [place] | [phone] | | [facility] | | [address] | | | - LABORATORY | | [...] + | [facility] | [address] | [place] | [phone] | | [facility] | | [address] | | | - LABORATORY | | [...] mL/min/1.73m2 | [facility] | | | [place] | RATE,ESTIMATED | | MEDICAL | | | | mL/min/1.33n5Dvut than | | CENTER - | | [...] ST. | [address] | [place], [place] | [phone] | | [facility] | | [address] | | | - LABORATORY | | [...] ST. | [address] | [place], [place] | [phone] | | [facility] | | [address] | | | - LABORATORY | | [...]
--- OUTSIDE RECORDS SUMMARY | ~2019-08-08 | XMS | Encounter Summary ---
Demographics + + + | Address | [address] | | | [place] [address] | + + + | Home Phone [...] | [facility] | | | and [place] | + + + | Organization | [facility] | | | and [place] [...] [place] | | | | | [address] | | + + + + + | Pratibha Hester | ECON | Unknown | + | + + + + + | Demian Powell | ECON | Unknown | + | + + + + + Care Team Providers + +------+ + | Care Rhinestone Setter Name | Role | Phone | [...] pain | [address] | [facility] | | | | | Cervical | [place], [place] | [facility] [place] | | | | | radicular | [address] | [address] Phone: | | | | | pain | Phone: | [phone] | | | | | | [phone] | Fax: | | | | | | Fax: | [phone] | | | | | | [phone] | | +--------+ + + + + + Reason for Visit + + + | Reason | Comments | + + + | Follow-up | Back pain | + + + Encounter Details +--------+---------+ + + + | Date | Type | Department | Care Team | Description | +--------+---------+ + + + | 06/04/ | Office | [facility] | Sascha Mir, | Spondylolisthesis, | | 2014 | Visit | NEUROSURGERY [address] | DO [address] | lumbar region | | | | [address] | [address] [place], [place] | (Primary Dx); S/P | | | | [place] | [address] | lumbar fusion; | | | | [address] | | Lumbar radicular | | | | [phone] | | pain; Cervical | | | [...] [facility] [address] [place] [address] FAX: NEUROSURGERY FOLLOW-UP CHIEF COMPLAINT: Chief Complaint [...] the patient is not pleased with [facility]. PAST MEDICAL HISTORY: Past Medical [...] Fusion; Surgeon: Sascha Mir DO; L ocation: [facility] OR CURRENT MEDICATIONS: Current Outpatient Prescriptions Medication Sig Dispense Refill ALBUTEROL SULFATE IN [facility]; 1-2 puffs every 3-4 hours [...] | | | | | | [place] [address] | | | | | | [phone] | | | | | | | [...] views of the lumbar spine. Posterior | [facility] | | pedicle screw and nayan and [...] [address] | [place] | [phone] | | [facility] | | [address] | | | - IMAGING | | [...] [address] | [place] | [phone] | | [facility] | | [address] | | | - IMAGING | | [...]
--- OUTSIDE RECORDS SUMMARY | ~2019-08-08 | XMS | Encounter Summary ---
Demographics + + + | Address | [address] | | | [place] [address] | + + + | Home Phone [...] | Author | [facility] | | | and [place] | + + + | Organization | [facility] | | | and [...] [place] | | | | | [address] | | + + + + + | Pratibha Hester | ECON | Unknown | + | + + + + + | Demian Powell | ECON | Unknown | + | + + + + + Care Team Providers + +------+ + | Care Automation Machine Builder Name | Role | Phone | [...] [facility] | Sascha Mir, | Imaging Only | | 2015 | | NEUROSURGERY [address] | DO [address] | | | | | [address] | [address] [place], [place] | | | | | [place], [place] | [id number] | | | | | [address] | | | | | | [phone] | | | +--------+ + + + [...] | | | | | | [place] [address] | | | | | | [phone] | | | | | | | | +--------+---------+ + + + documented as of this encounter Visit Diagnoses Not on filedocumented in this encounter"
--- OUTSIDE RECORDS SUMMARY | ~2019-08-08 | XMS | Encounter Summary ---
Demographics + + + | Address | [address] | | | [place] [address] | + + + | Home Phone [...] | Author | [facility] | | | and [place] | + + + | Organization | [facility] | | | and [place] [...] [place], [place] | | | | | [address] | | + + + + + | Pratibha Hester | ECON | Unknown | + | + + + + + | Demian Powell | ECON | Unknown | + | + + + + + Care Team Providers + +------+ + | Care Documentation Analyst Name | Role | Phone | [...] [address] | [address] [place], [place] | intervertebral disc | | | | [place], [place] | [address] | without myelopathy | | | | [address] | | (Primary Dx) | | | | [phone] | | | +--------+ + + + [...] | | | | | | [place] [address] | | | | | | [phone] | | | | | | | | +--------+---------+ + + + documented as of this encounter Visit Diagnoses + + | Diagnosis | + + | 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
--- OUTSIDE RECORDS SUMMARY | ~2019-08-08 | XMS | Encounter Summary ---
Demographics + + + | Address | [address] | | | [place] [address] | + + + | Home Phone [...] | Author | [facility] | | | and [place] | + + + | Organization | [facility] | | | and [place] | [...] [place] | | | | | [address] | | + + + + + | Pratibha Hester | ECON | Unknown | + | + + + + + | Demian Powell | ECON | Unknown | + | + + + + + Care Team Providers + +------+ + | Care Hull Outfit Supervisor Name | Role | Phone | [...] | | | | S/P lumbar | [address] | | | | | | fusion | Phone: | | | | | | | [phone] | | | | | | | Fax: | | | | | | | [phone] | | +--------+ + + + + [...] | | | | | Cervical | [place], [place] | [place], [place] | | | | | radicular | [address] | [address] Phone: | | | | | pain | Phone: | [phone] | | | | | | [phone] | Fax: | | | | | | Fax: | [phone] | | | | | | [phone] | | +--------+ + + + + + Encounter Details +--------+---------+ + + + | Date | Type | Department | Care Team | Description | +--------+---------+ + + + | 07/22/ | Office | [facility] | Roger Triplett | Chronic low back | | 2014 | Visit | PHYSIATRY [address] | MD Loli [address] | pain (Primary Dx); | | | | 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 She has appropriate fund of knowledge [...] region. Lumbar facet loading was negative. [facility] testing showed 5/5 strength throughout the lower [...] BACK, | | | | | | [place] [address] | | | | | | [phone] | | | | | | | [...]
--- OUTSIDE RECORDS SUMMARY | ~2019-08-08 | XMS | Encounter Summary ---
Demographics + + + | Address | [address] | | | [place] [address] | + + + | Home Phone [...] + | Author | [facility] | | | and [place] | + + + | Organization | [facility] | | | [...] [place] | | | | | [address] | | + + + + + | Pratibha Hester | ECON | Unknown | + | + + + + + | Demian Powell | ECON | Unknown | + | + + + + + Care Team Providers + +------+ + | Care Bumboater Name | Role | Phone | + [...] + + | 05/06/ | Telephone | [facility] | Sascha Mir, | Other (MRI ) | | 2014 | | NEUROSURGERY [address] | DO [address] | | | | | [address] | [address] [place], [place] | | | | | [place], [place] | [id number] | | | | | [address] | | | | | | [phone] | | | +--------+ + + + [...] | | | | | | [place] [address] | | | | | | [phone] | | | | | | | | +--------+---------+ + + + documented as of this encounter Visit Diagnoses Not on filedocumented in this encounter"
--- OUTSIDE RECORDS SUMMARY | ~2019-08-08 | XMS | Encounter Summary ---
Demographics + + + | Address | [address] | | | [place] [address] | + + + | Home Phone [...] + | Author | [facility] | | | and [place] | + + + | Organization | [facility] | | | and [place] [...] [place], [place] | | | | | [address] | | + + + + + | Pratibha Hester | ECON | Unknown | + | + + + + + | Demian Powell | ECON | Unknown | + | + + + + + Care Team Providers + +------+ + | Care Lens Maker Name | Role | Phone | [...] + + | 07/23/ | Telephone | [facility] | Roger Triplett | Other | | 2014 | | PHYSIATRY [address] | TMD [address] | | | | | [place], | [place] | | | | | [place] [address] | [address] | | | | | [phone] | | | +--------+ + + + [...] | | | | | | [place] [address] | | | | | | [phone] | | | | | | | | +--------+---------+ + + + documented as of this encounter Visit Diagnoses Not on filedocumented in this encounter"
--- OUTSIDE RECORDS SUMMARY | ~2019-08-08 | XMS | Encounter Summary ---
Demographics + + + | Address | [address] | | | [place] [address] | + + + | Home Phone [...] Author | [facility] | | | and [place] | + + + | Organization | [facility] | | | and [...] [place], [place] | | | | | [address] | | + + + + + | Pratibha Hester | ECON | Unknown | + | + + + + + | Demian Powell | ECON | Unknown | + | + + + + + Care Team Providers + +------+ + | Care Team Guide Name | Role | Phone | + +------+ + | Quentin Manriquez PA-C | PCP | | + +------+ + Encounter Details +--------+ + + + + | Date | Type | Department | Care Team | Description | +--------+ + + + + | 12/05/ | Preadmit | [facility] | Sascha Mir, | Bilateral lumbar | | 2014 | Visit | MED CTR PREADMIT | DO [address] | radiculopathy; HIP | | | | CLINIC [address] | [address] [place], [place] | PAIN, LEFT, CHRONIC; | | | | [place], [place] | [id number] | Spondylolisthesis | | | | [address] | | of lumbar region | | [...] | | | | | | [place] [address] | | | | | | [phone] | | | | | | | [...] [address] | [place] | [phone] | | [facility] | | [address] | | | - LABORATORY | | [...] [address] | [place] | [phone] | | [facility] | | [address] | | | - LABORATORY | | [...] 108 | 70 - 109 mg/dL | [facility] | | | | | | [facility] | | | | | | MEDICAL | | | | | | CENTER - | | | | | | LABORATORY | | + + + + + + | BUN | 11 | 7 - 18 mg/dL | [facility] | | | | | | [facility] | | | | | | MEDICAL | | | | | | CENTER - | | | | | | LABORATORY | | + + + + + + | Creatinine | 0.71 | 0.60 - 1.30 | [facility] | | | | | mg/dL | [facility] | | | | | | MEDICAL | | | | | | CENTER - | | | | | | LABORATORY | | + + + + + + | eGFR if not | >60Comment: GLOMERULAR | >=60 | [facility] | | | | FILTRATION | mL/min/1.73m2 | [facility] | | | [place] | RATE,ESTIMATED | | MEDICAL | | | | mL/min/1.27l3Pmul than | | CENTER - | | [...] [address] | [place] | [phone] | | [facility] | | [address] | | | - LABORATORY | | [...] ST. | [address] | [place], [place] | [phone] | | [facility] | | [address] | | | - LABORATORY | | [...]
--- OUTSIDE RECORDS SUMMARY | ~2019-08-08 | XMS | Encounter Summary ---
Demographics + + + | Address | [address] | | | [place] [address] | + + + | Home Phone [...] Team Providers + +------+ + | Care Turning Sander Tender Name | Role | Phone | [...] on | Otology Services at | [facility] | | | | | [address] [place], [place] | | | | | [address] | [address] | | | | | Mailcode: PV01 | | | | | | [facility] | | | | | | [place], [place] | | | | | | [address] | | | | | | [phone] | | | +--------+ + + + [...]
--- OUTSIDE RECORDS SUMMARY | ~2019-08-08 | XMS | Encounter Summary ---
Demographics + + + | Address | [address] | | | [place] [address] | + + + | Home Phone [...] [facility] | | | and [place] | + + + | Organization | [facility] | | [...] [place], [place] | | | | | [address] | | + + + + + | Pratibha Hester | ECON | Unknown | + | + + + + + | Demian Powell | ECON | Unknown | + | + + + + + Care Team Providers + +------+ + | Care Crusher Machine Operator Name | Role | Phone | + +------+ + PCP | Unavailable | + +------+ + Encounter Details +--------+ + + + + | Date | Type | Department | Care Team | Description | +--------+ + + + + | 12/31/ | Hospital | [facility] | | | | 2009 | Encounter | MED CTR XRAY [address] | | | | | | [place] | | | | | | [place] [address] | | | | | | [phone] | | | +--------+ + + + [...] | | | | | | [place] [address] | | | | | | [phone] | | | | | | | | +--------+---------+ + + + documented as of this encounter Visit Diagnoses Not on filedocumented in this encounter"
--- OUTSIDE RECORDS SUMMARY | ~2019-08-08 | XMS | Encounter Summary ---
Demographics + + + | Address | [address] | | | [place] [address] | + + + | Home Phone [...] Author | [facility] | | | and [place] | + + + | Organization | [facility] | | | and [...] [place] | | | | | [address] | | + + + + + | Pratibha Hester | ECON | Unknown | + | + + + + + | Demian Powell | ECON | Unknown | + | + + + + + Care Team Providers + +------+ + | Care Shirring Machine Operator Automatic Name | Role | [...] + | 03/31/ | Refill | [facility] | Sascha Mir, | Medication Refill | | 2014 | | NEUROSUR[address]ERY [address] | DO [address] | | | | | [address] | [address] [place], [place] | | | | | [place] | [address] | | | | | [address] | | | | | | [phone] | | | +--------+--------+ + + + [...] | | | | | | [place] [address] | | | | | | [phone] | | | | | | | | +--------+---------+ + + + documented as of this encounter Visit Diagnoses + + | Diagnosis | + + | Nausea - Primary Nausea alone | + + | S/P lumbar fusion Arthrodesis status | + + documented in this encounter"
--- OUTSIDE RECORDS SUMMARY | ~2019-08-08 | XMS | Encounter Summary ---
Demographics + + + | Address | [address] | | | [place] [address] | + + + | Home Phone [...] Author | [facility] | | | and [place] | + + + | Organization | [facility] [...] [place], [place] | | | | | [address] | | + + + + + | Pratibha Hester | ECON | Unknown | + | + + + + + | Demian Powell | ECON | Unknown | + | + + + + + Care Team Providers + +------+ + | Care Computer Applications Engineer Name | Role | Phone | + +------+ + | Quentin Manriquez PA-C | PCP | | + +------+ + Encounter Details +--------+ + + + + | Date | Type | Department | Care Team | Description | +--------+ + + + + | 12/15/ | Orders Only | [facility] | Sascha Mir, | Spondylolisthesis of | | 2016 | | NEUROSURGERY [address] | DO [address] | lumbar region; S/P | | | | [address] | [address] [place], [place] | lumbar fusion | | | | [place], [place] | [id number] | | | | | [address] | | | | | | [phone] | | | +--------+ + + + [...] | | | | | | [place] [address] | | | | | | [phone] | | | | | | | | +--------+---------+ + + + documented as of this encounter Visit Diagnoses + + | Diagnosis | + + | Spondylolisthesis of lumbar region Acquired spondylolisthesis | + + | S/P lumbar fusion Arthrodesis status | + + documented in this encounter"
--- OUTSIDE RECORDS SUMMARY | ~2019-08-08 | XMS | Encounter Summary ---
Demographics + + + | Address | [address] | | | [place] [address] | + + + | Home Phone [...] Author | [facility] | | | and [place]ana | + + + | Organization | [facility] | | | and [...] | [place] | | | | | [address] | | + + + + + [...] | | | spondylolist | | [address] | | | | | hesis | | [place], | | | | | Acquired | | [place] [address] | | | | | spondylolist | | Phone: | | | | | hesis | | [phone] | | | | | Procedures | | Fax: | | | | | [place] | | [phone] | | | | | POST/POSTERO | [...] + + | 12/12/ | Surgery | [facility] | Sascha Mir, | L5-S1 Transforaminal | | 2015 | | MED CTR OR INTRA OP | DO [address] | Lumbar Interbody | | | | [address] | [address] [place], [place] | Fusion | | | | [place], [place] | [address] | | | | | [address] | | | | | | [phone] | | | +--------+---------+ + + + [...] of admission the patient was admitted to [facility] and underwent a L5-S1 fusion . [...] mobility and she was ultimately discharged to [facility]. Medications Reconciled upon Discharge are: Discharge [...] Discharge: Stable Disposition: Patient was discharged to [place]. Follow-Up Plans: Follow-up with: Dr. Mir's office in 4 weeks Follow-up with primary care physician as needed. Diet: Resume regular diet Activity: Continue to follow guidelines and precautions as previously discussed. Electronically signed by: Amol Triplett, 12/16/2014 7:45 [facility] documented in this encounter Discharge Instructions [...] might be different f rom the original. [facility] NEUROSURGERY PROGRESS NOTE Pt. Name/Age/: Demian [...] since surgery. She is reay to go [facility] in [place]. No further C/C OBJECTIVE: Patient Vitals for [...] ASSESSMENT:SP L5-S1 fuison Plan:B Brace. DC to [facility] knob today. See DC summary. Electronically signed by: [...] would like to go to SNF in [facility] before discharge home. Objective Filed Vitals: 12/15/14 [...] would like to go to SNF in [facility] before discharge home. Objective Filed Vitals: 12/14/14 [...] Range POC Test, Urine Negative POC Specific [place] Internal QC Acceptable Lot Number [id number] Expiration Date POC GLUCOSE Result Value Ref Range POC Glucose 125 70-150 mg/dL Level of consciousness: Alert and orientated to person, place, and time. Motor: Moving all extremities well. Sensations: Left arm and leg dysesthesia. Incision: Dressing is clean, dry, and intact. JENNIFER 51 mL Assessment eDmian Nina is a 44 y.o. y.o. female [...] BACK | | | | | | [place] [address] | | | | | | [phone] | | | | | | | [...] | of hardware for posterior fusion from G1mmcjyrn S1 with interbody hardware at L5-S1. | [...] | | POC | | | [facility] | | | | | | MEDICAL [...] [address] | [place] | [phone] | | [facility] | | [address] | | | - LABORATORY | | [...] Specific | | | | | | [place], | | | | | | POC | | | | | + + + + + + | Internal QC | Acceptable | | | | + + + + + + | Lot Number | [id number] | | | | + + + [...] [address] | [place] | [phone] | | [facility] | | [address] | | | - LABORATORY | | [...] ST. | [address] | [place] | | | [facility] | | [address] | | | - BLOOD BANK | [...]
--- OUTSIDE RECORDS SUMMARY | ~2019-08-08 | XMS | Encounter Summary ---
Demographics + + + | Address | [address] | | | [place] [address] | + + + | Home Phone [...] | [facility] | | | and [place]ana | + + + | Organization | [facility] | | [...] [place], [place] | | | | | [address] | | + + + + + | Pratibha Hester | ECON | Unknown | + | + + + + + | Demian Powell | ECON | Unknown | + | + + + + + Care Team Providers + +------+ + | Care Doweling Machine Operator Name | Role | Phone | + +------+ + | Jannette Boyle PA-C | PCP | | + +------+ + Encounter Details +--------+ + + + + | Date | Type | Department | Care Team | Description | +--------+ + + + + | 09/27/ | Orders Only | [facility] | Sascha Mir, | Back pain, | | 2016 | | NEUROSUR[address]ERY [address] | DO [address] | unspecified back | | | | [address] | [address] [place], [place] | location, | | | | [place], [place] | [id number] | unspecified back | | | | [address] | | pain laterality, | | | | [phone] | | unspecified | | | | [...] | | | | | | [place] [address] | | | | | | [phone] | | | | | | | [...]
--- OUTSIDE RECORDS SUMMARY | ~2019-08-08 | XMS | Encounter Summary ---
Demographics + + + | Address | [address] | | | [place] [address] | + + + | Home Phone [...] Team Providers + +------+ + | Care Manganese Breaker Name | Role | Phone | + [...] | | ([facility] at [facility] [address] | [facility] | | | | | MAG[address] Schreiber | [place], [place] | | | | | Mailcode: [place] | [address] | | | | | [facility] and | [phone] | | | | | [place] [address] | | | | | | [place], [place] | | | | | | [address] | | | | | | [phone] | | | +--------+ + + + [...]
--- OUTSIDE RECORDS SUMMARY | ~2019-08-08 | XMS | Encounter Summary ---
Demographics + + + | Address | [address] | | | [place] [address] | + + + | Home Phone [...] Author | [facility] | | | and [place]ana | + + + | Organization | [facility] | | [...] [place] | | | | | [address] | | + + + + + | Pratibha Hester | ECON | Unknown | + | + + + + + | Demian Powell | ECON | Unknown | + | + + + + + Care Team Providers + +------+ + | Care Film Color Tester Name | Role | Phone | [...] + + | 12/31/ | Telephone | [facility] | Sascha Mir, | Appointment | | 2014 | | NEUROSURGERY [address] | DO [address] | | | | | [address] | [address] [place], [place] | | | | | [place], [place] | [id number] | | | | | [address] | | | | | | [phone] | | | +--------+ + + + [...] | | | | | | [place] [address] | | | | | | [phone] | | | | | | | | +--------+---------+ + + + documented as of this encounter Visit Diagnoses Not on filedocumented in this encounter"
--- OUTSIDE RECORDS SUMMARY | ~2019-08-08 | XMS | Encounter Summary ---
Demographics + + + | Address | [address] | | | [place] [address] | + + + | Home Phone [...] | Author | [facility] | | | and [place]ana | + + + | Organization | [facility] | [...] [place], [place] | | | | | [address] | | + + + + + | Pratibha Hester | ECON | Unknown | + | + + + + + | Demian Powell | ECON | Unknown | + | + + + + + Care Team Providers + +------+ + | Care Gasoline Tractor Operator Name | Role | Phone | + +------+ + | Quentin Manriquez PA-C | PCP | | + +------+ + Encounter Details +--------+ + + + + | Date | Type | Department | Care Team | Description | +--------+ + + + + | 09/26/ | Hospital | [facility] | Sascha Mir, | Displacement of | | 2014 | Encounter | MED CTR XRAY [address] | DO [address] | lumbar | | | | [place] | [address] [place], [place] | intervertebral disc | | | | [place] [address] | [address] | without myelopathy | | | | [phone] | | | +--------+ + + + [...] | | | | | | [place] [address] | | | | | | [phone] | | | | | | | [...] | | HISTORY:Back pain COMPARISON: MRI from [facility] dated | [facility] | | June 25, 2014 [...] | 09/26/2014 8:51 AMHISTORY:Back painCOMPARISON: MRI from [facility] dated | | June 25, 2014 [...] | [address] | [address] | [place] | [phone] | | [facility] | | [address] | | | - IMAGING | | | | + + + + + documented in this encounter Visit Diagnoses + + | Diagnosis | + + | Displacement of lumbar intervertebral disc without myelopathy | + + documented in this encounter"
--- OUTSIDE RECORDS SUMMARY | ~2019-08-08 | XMS | Encounter Summary ---
Demographics + + + | Address | [address] | | | [place] [address] | + + + | Home Phone [...] | Author | [facility] | | | and [place]ana | + + + | Organization | [facility] | | | and [place] [...] [place] | | | | | [address] | | + + + + + | Pratibha Hester | ECON | Unknown | + | + + + + + | Demian Powell | ECON | Unknown | + | + + + + + Care Team Providers + +------+ + | Care Manager Ui Name | Role | Phone | + [...] + + | 12/05/ | Office | [facility] | Amol Triplett, | Degenerative disc | | 2014 | Visit | [address]UR[address]URGERY [address] | PA-C [address] | disease, lumbar L4-5 | | | | [address] | [address] [place] | (Primary Dx); 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 CRANIAL NERVES: II: Acuity is intact. [...] | | | | | | [place] [address] | | | | | | [phone] | | | | | | | [...]
--- OUTSIDE RECORDS SUMMARY | ~2019-08-08 | XMS | Encounter Summary ---
Demographics + + + | Address | [address] [place] [address] | | | [place] [address] | + + + | Home Phone | | + + + | Preferred Language | Unknown | + + + | Marital Status | Single | + + + | Nondenominational Affiliation | CAT | + + + [...] Providers + +------+ + | Care Supervisor Tellers Name | Role | Phone | + +------+ + | Gracie Lewis PA-C | PCP | | + +------+ + Encounter Details +--------+ + + + + | Date | Type | Department | Care Team | Description | +--------+ + + + + | 03/07/ | Transcribe | [facility] at [facility] | Transcribe | | | 2019 | Orders | [address] | Encounter, Provider, | | | | | Melvin Schreiber Mailcode: | [address] | | | | | [address] [place] for | [place] [address] | | | | | Health and Healing, | | | | | | [address] | | | | | | [place], [place] | | | | | | [address] | | | | | | [phone] | | | +--------+ + + + [...]
--- OUTSIDE RECORDS SUMMARY | ~2019-08-08 | XMS | Encounter Summary ---
Demographics + + + | Address | [address] | | | [place] [address] | + + + | Home Phone [...] | Author | [facility] | | | and [place]ana | + + + | Organization | [facility] | | | [...] [place], [place] | | | | | [address] | | + + + + + | Pratibha Hester | ECON | Unknown | + | + + + + + | Demian Powell | ECON | Unknown | + | + + + + + Care Team Providers + +------+ + | Care Water Plant Pump Operator Supervisor Name | Role | Phone | [...] + | 02/24/ | Telephone | [facility] | Vega Smith MD | Appointment | | 2017 | | GASTROENTEROLOGY | [address], [place] | | | | | [address] [place] | [address] [place], [place] | | | | | [address] [place], [place] | [address] | | | | | [address] | | | | | | [phone] | | | +--------+ + + + [...] DR | | | | | | [place], | | | | | | [place] [address] | | | | | | [phone] | | | | | | | | +--------+---------+ + + + documented as of this encounter Visit Diagnoses Not on filedocumented in this encounter"
--- OUTSIDE RECORDS SUMMARY | ~2019-08-08 | XMS | Encounter Summary ---
Demographics + + + | Address | [address] | | | [place] [address] | + + + | Home Phone [...] | Author | [facility] | | | and [place] | + + + | Organization | [facility] | | | and [place] [...] [place], [place] | | | | | [address] | | + + + + + | Pratibha Hester | ECON | Unknown | + | + + + + + | Demian Powell | ECON | Unknown | + | + + + + + Care Team Providers + +------+ + | Care Manager Mass Name | Role | Phone | + [...] + + | 07/23/ | Telephone | [facility] | Roger Triplett | Other | | 2014 | | PH[address]SIATRY [address] | TMD [address] | | | | | [place], | [place] | | | | | [place] [address] | [address] | | | | | [phone] | | | +--------+ + + + [...] | | | | | | [place] [address] | | | | | | [phone] | | | | | | | | +--------+---------+ + + + documented as of this encounter Visit Diagnoses Not on filedocumented in this encounter"
--- OUTSIDE RECORDS SUMMARY | ~2019-08-08 | XMS | Encounter Summary ---
Demographics + + + | Address | [address] | | | [place] [address] | + + + | Home Phone [...] Team Providers + +------+ + | Care Fixing Machine Operator Name | Role | Phone | + +------+ + | Gracie Lewis PA-C | PCP | | + +------+ + Encounter Details +--------+ + + + + | Date | Type | Department | Care Team | Description | +--------+ + + + + | 04/25/ | Documentati | [facility] | Clinic, Surgery | | | 2019 | on | [place] at [facility] [address] | | | | | | [address] Schreiber | | | | | | Mailcode: Center | | | | | | for Health and | | | | | | Healing, Building [address] | | | | | | [facility] [place] | | | | | | [address] | | | | | | [phone] | | | +--------+ + + + [...]
--- OUTSIDE RECORDS SUMMARY | ~2019-08-08 | XMS | Encounter Summary ---
Demographics + + + | Address | [address] | | | [place] [address] | + + + | Home Phone [...] Team Providers + +------+ + | Care Felt Strip Finisher Name | Role | Phone | + +------+ + | Gracie Lewis PA-C | PCP | | + +------+ + Encounter Details +--------+ + + + + | Date | Type | Department | Care Team | Description | +--------+ + + + + | 04/24/ | Abstract | [facility] | Clinic, Surgery | | | 2019 | | [facility] [address] | | | | | | Melvin Schre[address] | | | | | | Mailcode: [facility] | | | | | | for Health and | | | | | | Healing, [address] | | | | | | [place], [place] | | | | | | [address] | | | | | | [phone] | | | +--------+ + + + [...]
--- OUTSIDE RECORDS SUMMARY | ~2019-08-08 | XMS | Encounter Summary ---
Demographics + + + | Address | [address] | | | [place] [address] | + + + | Home Phone [...] | Author | [facility] | | | and [place] | + + + | Organization | [facility] | | | and [...] [place], [place] | | | | | [address] | | + + + + + | Pratibha Hester | ECON | Unknown | + | + + + + + | Demian Powell | ECON | Unknown | + | + + + + + Care Team Providers + +------+ + | Care Electronic Component Processor Name | Role | Phone | + +------+ + | Quentin Manriquez PA-C | PCP | | + +------+ + Encounter Details +--------+ + + + + | Date | Type | Department | Care Team | Description | +--------+ + + + + | 12/05/ | Hospital | [facility] | Sascha Mir, | Bilateral lumbar | | 2014 | Encounter | MED CTR XRAY [address] | DO [address] | radiculopathy; HIP | | | | [place] | [address] [place], [place] | PAIN, LEFT, CHRONIC; | | | | [place] [address] | [address] | Spondylolisthesis | | | | [phone] | | of lumbar region | | [...] | | | | | | [place] [address] | | | | | | [phone] | | | | | | | [...] contours are within normal limits. The | [facility] | | lungs are clear, without [...] | [address] | [place] | [phone] | | [facility] | | [address] | | | - IMAGING | | [...]
--- OUTSIDE RECORDS SUMMARY | ~2019-08-08 | XMS | Encounter Summary ---
Demographics + + + | Address | [address] | | | [place] [address] | + + + | Home Phone [...] | + + +---------+ + | Alisia iNna | ECON | Unknown | | + + +---------+ + Care Team Providers + +------+ + | Care Oncology Coordinator Name | Role | Phone | [...] | | | | Nonsuppurati | | [place], [place] | | | | | ve otitis | | [address] | | | | | media, not | | Phone: | | | | | specified as | | [phone] | | | | | acute or | | Fax: | | | | | chronic | | [phone] | | | | | Conductive | [...] | | | | [address] | [place], [place] | Dx); OME (otitis | | | | Mailcode: PV01 | [address] | media with | | | | [facility] | [phone] | effusion), right; | | | | [place], [place] | | Conductive hearing | | | | [address] | | loss in right ear; | | | | [phone] | | Dizziness; Nausea | +--------+---------+ + [...] No spontaneous nystagmus. Normal head thrust. Normal bndewe-lr-sldc and rapid alternat ing motion. Negative Romberg. [...] with new audiogram. Windy Rodriguez MD PhD Accounting Office Manager Otology, Neurotology & Skull Base Surgery documented in this encounter Plan of Treatment Not on filedocumented as of this encounter Procedures + +--------+ + + + | Procedure Name | Priori | Date/Time | Associated Diagnosis | Comments | | | ty | | | | + +--------+ + + + | NV CREATE EARDRUM | Routin | 04/01/2014 | [...]
--- OUTSIDE RECORDS SUMMARY | ~2019-08-08 | XMS | Encounter Summary ---
Demographics + + + | Address | [address] | | | [place] [address] | + + + | Home Phone [...] | [facility] | | | and [place] | + + + | Organization | [facility] | | | and [place] | + + + | Address | Unknown | + + + | Phone | Unavailable | + + + Support + + + + + | Name | Relationship | Address | Phone | + + + + + | Uche Nina | ECON | [address] | | | | | [place] | | | | | [address] | | + + + + + | Pratibha Hester | ECON | Unknown | + | + + + + + | Demian Powell | ECON | Unknown | + | + + + + + Care Team Providers + +------+ + | Care Deputy Court Clerk Name | Role | Phone | [...] + + | 12/09/ | Telephone | [facility] | Sascha Mir, | Other (Fax) | | 2014 | | NEUROSURGERY [address] | DO [address] | | | | | [address] [facility] [address] | [address] [place], [place] | | | | | [place], [place] | [id number] | | | | | [address] | | | | | | [phone] | | | +--------+ + + + [...] | | | | | | [place] [address] | | | | | | [phone] | | | | | | | | +--------+---------+ + + + documented as of this encounter Visit Diagnoses Not on filedocumented in this encounter"
--- OUTSIDE RECORDS SUMMARY | ~2019-08-08 | XMS | Encounter Summary ---
Demographics + + + | Address | [address] | | | [place] [address] | + + + | Home Phone [...] | Author | [facility] | | | and [place] | + + + | Organization | [facility] | | | and [...] [place], [place] | | | | | [address] | | + + + + + | Pratibha Hester | ECON | Unknown | + | + + + + + | Demian Powell | ECON | Unknown | + | + + + + + Care Team Providers + +------+ + | Care Trailer Mechanic Name | Role | Phone | + +------+ + | Quentin Manriquez PA-C | PCP | | + +------+ + Encounter Details +--------+ + + + + | Date | Type | Department | Care Team | Description | +--------+ + + + + | 06/04/ | Hospital | [facility] | Sascha Mir, | Spondylolisthesis, | | 2014 | Encounter | MED CTR XRAY [address] | DO [address] | lumbar region; S/P | | | | [place] | [address] | lumbar fusion; | | | | [place] [address] | [address] | Lumbar radicular | | | | [phone] | | pain | +--------+ + + [...] | | | | | | [place] [address] | | | | | | [phone] | | | | | | | [...] ST. | [address] | [place] | [phone] | | [facility] | | [address] | | | - IMAGING | | [...]
--- OUTSIDE RECORDS SUMMARY | ~2019-08-08 | XMS | Encounter Summary ---
Demographics + + + | Address | [address] | | | [place] [address] | + + + | Home Phone [...] + + | Author | [facility] | | | and [place] | + + + | Organization | [facility] | | | and [place] [...] [place], [place] | | | | | [address] | | + + + + + | Pratibha Hester | ECON | Unknown | + | + + + + + | Demian Powell | ECON | Unknown | + | + + + + + Care Team Providers + +------+ + | Care Honing Job Setter Name | Role | Phone | [...] + + | 01/01/ | Telephone | [facility] | Sascha Mir, | Other (Medication | | 2014 | | [address]UR[address]ERY [address] | DO [address] | refill) | | | | [place] [facility] | [address] [place], [place] | | | | | [place] | [address] | | | | | [address] | | | | | | [phone] | | | +--------+ + + + [...] | | | | | | [place] [address] | | | | | | [phone] | | | | | | | | +--------+---------+ + + + documented as of this encounter Visit Diagnoses Not on filedocumented in this encounter"
--- OUTSIDE RECORDS SUMMARY | ~2019-08-08 | XMS | Encounter Summary ---
Demographics + + + | Address | [address] | | | [place] [address] | + + + | Home Phone [...] | Author | [facility] | | | and [place] | + + + | Organization | [facility] | | [...] [place], [place] | | | | | [address] | | + + + + + | Pratibha Hester | ECON | Unknown | + | + + + + + | Demian Powell | ECON | Unknown | + | + + + + + Care Team Providers + +------+ + | Care Assistant Business Manager Name | Role | Phone | + +------+ + | Jannette Boyle PA-C | PCP | | + +------+ + Encounter Details +--------+ + + + + | Date | Type | Department | Care Team | Description | +--------+ + + + + | 09/27/ | Orders Only | [facility] | Sascha Mir, | Back pain, | | 2016 | | NEUR[address]UR[address]ERY [address] | DO [address] | unspecified back | | | | [address] | [address] [place], [place] | location, | | | | [place], [place] | [id number] | unspecified back | | | | [address] | | pain laterality, | | | | [phone] | | unspecified | | | | [...] | | | | | | [place] [address] | | | | | | [phone] | | | | | | | [...]
--- OUTSIDE RECORDS SUMMARY | ~2019-08-08 | XMS | Encounter Summary ---
Demographics + + + | Address | [address] | | | [place] [address] | + + + | Home Phone [...] | [facility] | | | and [place] | + + + | Organization | [facility] | | | and [...] [place] | | | | | [address] | | + + + + + | Pratibha Hester | ECON | Unknown | + | + + + + + | Demian Powell | ECON | Unknown | + | + + + + + Care Team Providers + +------+ + | Care Corporate Librarian Name | Role | Phone | [...] + + | 08/13/ | Telephone | [facility] | Sascha Mir, | Other | | 2015 | | NE[address]UR[address] | DO [address] | | | | | [address] [facility] [address] | [address] [place], [place] | | | | | [place], [place] | [id number] | | | | | [address] | | | | | | [phone] | | | +--------+ + + + [...] | | | | | | [place] [address] | | | | | | [phone] | | | | | | | | +--------+---------+ + + + documented as of this encounter Visit Diagnoses Not on filedocumented in this encounter"
--- OUTSIDE RECORDS SUMMARY | ~2019-08-08 | XMS | Encounter Summary ---
Demographics + + + | Address | [address] | | | [place] [address] | + + + | Home Phone [...] Team Providers + +------+ + | Care Expander Machine Operator Name | Role | Phone [...] | | | | [address] | [place], [place] | | | | | Mailcode: PV01 | [address] | | | | | [facility] | [phone] | | | | | [place], [place] | | | | | | [address] | | | | | | [phone] | | | +--------+ + + + [...]
--- OUTSIDE RECORDS SUMMARY | ~2019-08-08 | XMS | Encounter Summary ---
Demographics + + + | Address | [address] | | | [place] [address] | + + + | Home Phone [...] | Author | [facility] | | | and [place] | + + + | Organization | [facility] | | | and [...] [place] | | | | | [address] | | + + + + + | Pratibha Hester | ECON | Unknown | + | + + + + + | Demian Powell | ECON | Unknown | + | + + + + + Care Team Providers + +------+ + | Care Cattle Sticker Name | Role | Phone | + [...] + + | 02/14/ | Telephone | [facility] | Sascha Mir, | Other | | 2014 | | NEUR[address]URGERY [address] | DO [address] | | | | | [address] [facility] | [address] [place], [place] | | | | | [place], [place] | [address] | | | | | [address] | | | | | | [phone] | | | +--------+ + + + [...] | | | | | | [place] [address] | | | | | | [phone] | | | | | | | | +--------+---------+ + + + documented as of this encounter Visit Diagnoses Not on filedocumented in this encounter"
--- OUTSIDE RECORDS SUMMARY | ~2019-08-08 | XMS | Encounter Summary ---
Demographics + + + | Address | [address] | | | [place] [address] | + + + | Home Phone [...] Team Providers + +------+ + | Care Packing Shed Supervisor Name | Role | Phone | [...] Medical Records | | 2019 | | [place] [facility] [address] | | Review | | | | MAG[address] Schreiber | | | | | | Mailcode: [place] | | | | | | [facility] and | | | | | | [facility] | | | | | | [place], [place] | | | | | | [address] | | | | | | [phone] | | | +--------+ + + + [...]
--- OUTSIDE RECORDS SUMMARY | ~2019-08-08 | XMS | Encounter Summary ---
Demographics + + + | Address | [address] | | | [place] [address] | + + + | Home Phone [...] + | Author | [facility] | | | and [place] | + + + | Organization | [facility] | | [...] [place] | | | | | [address] | | + + + + + | Pratibha Hester | ECON | Unknown | + | + + + + + | Demian Powell | ECON | Unknown | + | + + + + + Care Team Providers + +------+ + | Care Payroll Accounting Specialist Name | Role | Phone | [...] + + | 12/09/ | Telephone | [facility] | Sascha Mir, | Other (Fax) | | 2014 | | NEUR[address]UR[address] | DO [address] | | | | | [address] [facility] 50 | [address] [place], [place] | | | | | [place], [place] | [id number] | | | | | [address] | | | | | | [phone] | | | +--------+ + + + [...] | | | | | | [place] [address], | | | | | | [place] [address] | | | | | | [phone] | | | | | | | | +--------+---------+ + + + documented as of this encounter Visit Diagnoses Not on filedocumented in this encounter"
--- OUTSIDE RECORDS SUMMARY | ~2019-08-08 | XMS | Encounter Summary ---
Demographics + + + | Address | [address] | | | [place] [address] | + + + | Home Phone [...] [place], [place] | | | | | [address] | | + + + + + | Pratibha Hester | ECON | Unknown | + | + + + + + | Demian Powell | ECON | Unknown | + | + + + + + Care Team Providers + +------+ + | Care Patient Accounts Manager Name | Role | Phone | + +------+ + PCP | Unavailable | + +------+ + Encounter Details +--------+ + + + + | Date | Type | Department | Care Team | Description | +--------+ + + + + | 12/31/ | Hospital | [facility] | | | | 2009 | Encounter | MED CTR XRAY [address] | | | | | | [place] | | | | | | [place] [address] | | | | | | [phone] | | | +--------+ + + + [...] | | | | | | [place] [address] | | | | | | [phone] | | | | | | | | +--------+---------+ + + + documented as of this encounter Visit Diagnoses Not on filedocumented in this encounter"
--- OUTSIDE RECORDS SUMMARY | ~2019-08-08 | XMS | Encounter Summary ---
Demographics + + + | Address | [address] | | | [place] [address] | + + + | Home Phone [...] Author | [facility] | | | and Shaneana | + + + | Organization | [facility] | | | and [...] [place], [place] | | | | | [address] | | + + + + + | Pratibha Hester | ECON | Unknown | + | + + + + + | Demian Powell | ECON | Unknown | + | + + + + + Care Team Providers + +------+ + | Care Service Provider Name | Role | Phone | + +------+ + | Quentin Manriquez PA-C | PCP | | + +------+ + Encounter Details +--------+ + + + + | Date | Type | Department | Care Team | Description | +--------+ + + + + | 06/04/ | Hospital | [facility] | Sascha Mir, | Spondylolisthesis, | | 2014 | Encounter | MED CTR XRAY [address] | DO [address] | lumbar region; S/P | | | | [place] | [address] | lumbar fusion; | | | | [place] [address] | [address] | Lumbar radicular | | | | [phone] | | pain | +--------+ + + [...] | | | | | | [place] [address] | | | | | | [phone] | | | | | | | [...] + + | Performing | Address | City[facility]State[facility] | Phone Number | | Organization | | | | + + + + + | [address] | [address] | [place] | [phone] | | [facility] | | [address] | | | - IMAGING | | [...]
--- OUTSIDE RECORDS SUMMARY | ~2019-08-08 | XMS | Encounter Summary ---
Demographics + + + | Address | [address] | | | [place] [address] | + + + | Home Phone [...] | Author | [facility] | | | and Shaneana | + + + | Organization | [facility] | | [...] [place], [place] | | | | | [address] | | + + + + + | Pratibha Hester | ECON | Unknown | + | + + + + + | Demian Powell | ECON | Unknown | + | + + + + + Care Team Providers + +------+ + | Care Station Installer Name | Role | Phone | [...] [address]VE | | | | | [address] [facility] [address] | [address] [place], [place] | | | | | [place], [place] | [address] | | | | | [address] | | | | | | [phone] | | | +--------+ + + + [...] | | | | | | [place] [address] | | | | | | [phone] | | | | | | | | +--------+---------+ + + + documented as of this encounter Visit Diagnoses Not on filedocumented in this encounter"
--- OUTSIDE RECORDS SUMMARY | ~2019-08-08 | XMS | Encounter Summary ---
Demographics + + + | Address | [address] | | | [place] [address] | + + + | Home Phone [...] Author + + + | Author | [facility] | + + + | Organization | [facility] | + + + | Address | Unknown | + + + | Phone | Unavailable | + + + Support + + +---------+ + | Name | Relationship | Address | Phone | + + +---------+ + | Alisia Nina | ECON | Unknown | | + + +---------+ + Care Team Providers + +------+ + | Care Pipe Fitter Gas Pipe Name | Role | Phone | + [...] on | Otology Services at | [facility] | | | | | [address] [place], [place] | | | | | [address] | [address] | | | | | Mailcode: PV01 | | | | | | [facility] | | | | | | [place], [place] | | | | | | [address] | | | | | | [phone] | | | +--------+ + + + [...]
--- OUTSIDE RECORDS SUMMARY | ~2019-08-08 | XMS | Encounter Summary ---
Demographics + + + | Address | [address] | | | [place] [address] | + + + | Home Phone [...] Team Providers + +------+ + | Care Literacy Teacher Name | Role | Phone | [...] | | | | [address] | [place], [place] | | | | | Mailcode: PV01 | [address] | | | | | [facility] | [phone] | | | | | [place], [place] | | | | | | [address] | | | | | | [phone] | | | +--------+ + + + [...]
--- OUTSIDE RECORDS SUMMARY | ~2019-08-08 | XMS | Encounter Summary ---
Demographics + + + | Address | [address] | | | [place] [address] | + + + | Home Phone [...] | Author | [facility] | | | and Shaneana | + + + | Organization | [facility] | | | and [place] | [...] [place] | | | | | [address] | | + + + + + | Pratibha Hester | ECON | Unknown | + | + + + + + | Demian Powell | ECON | Unknown | + | + + + + + Care Team Providers + +------+ + | Care Search Engine Optimizer Name | Role | Phone | + [...] + | 05/14/ | Refill | [facility] | Sascha Mir, | Medication Refill | | 2014 | | NEUROSURGERY [address] | DO [address] | | | | | [address] | [address] [place], [place] | | | | | [place] | [address] | | | | | [address] | | | | | | [phone] | | | +--------+--------+ + + + [...] | | | | | | [place] [address] | | | | | | [phone] | | | | | | | | +--------+---------+ + + + documented as of this encounter Visit Diagnoses Not on filedocumented in this encounter"
--- OUTSIDE RECORDS SUMMARY | ~2019-08-08 | XMS | Encounter Summary ---
Demographics + + + | Address | [address] | | | [place] [address] | + + + | Home Phone [...] | Author | [facility] | | | and Shaneana | + + + | Organization | [facility] | | | and [...] [place] | | | | | [address] | | + + + + + | Pratibha Hester | ECON | Unknown | + | + + + + + | Demian Powell | ECON | Unknown | + | + + + + + Care Team Providers + +------+ + | Care Forestry Tree Pruner Name | Role | Phone | + [...] + + | 12/27/ | Telephone | [facility] | Sascha Mir, | Appointment | | 2014 | | NEUROSURGERY [address] | DO [address] | | | | | [address] | [address] [place], [place] | | | | | [place], [place] | [id number] | | | | | [address] | | | | | | [phone] | | | +--------+ + + + [...] | | | | | | [place] [address] | | | | | | [phone] | | | | | | | | +--------+---------+ + + + documented as of this encounter Visit Diagnoses Not on filedocumented in this encounter"
--- OUTSIDE RECORDS SUMMARY | ~2019-08-08 | XMS | Encounter Summary ---
Demographics + + + | Address | [address] | | | [place] [address] | + + + | Home Phone [...] | Author | [facility] | | | and Shaneana | + + + | Organization | [facility] | | | and [...] [place], [place]AKEL | | | | | [address] | | + + + + + | Pratibha Hester | ECON | Unknown | + | + + + + + | Demian Powell | ECON | Unknown | + | + + + + + Care Team Providers + +------+ + | Care Motor Tester Name | Role | Phone | [...] [address] | MD Denice [address] | office-Auth #) | | | | [address] | [place] | | | | | [place] | [address] | | | | | [address] | [phone] | | | | | [phone] | | | +--------+ + + + [...] [place], | | | | | | [place] [address] | | | | | | [phone] | | | | | | | | +--------+---------+ + + + documented as of this encounter Visit Diagnoses Not on filedocumented in this encounter"
--- OUTSIDE RECORDS SUMMARY | ~2019-08-08 | XMS | Encounter Summary ---
Demographics + + + | Address | [address] | | | [place] [address] | + + + | Home Phone | | + + + | Preferred Language | Unknown | + + + | Marital Status | Single | + + + | Zoroastrian Affiliation | CAT | + + + [...] Team Providers + +------+ + | Care Traffic Control Technician Name | Role | Phone [...]
--- OUTSIDE RECORDS SUMMARY | ~2019-08-08 | XMS | Clinical Summary ---
Demographics + + + | Address | [address] | | | [place] [address] | + + + | Home Phone | | + + + | Preferred Language | Unknown | + + + | Marital Status | Single | + + + | Episcopalian Affiliation | Unknown | + + + | Race | Unknown | + + + | Ethnic Group | Unknown | + + + Author + + + | Author | [facility] (Historical as of | | | 03-24-19) | + + + | Organization | [facility] (Historical as of | | | 03-24-19) [...] Team Providers + +------+ + | Care Sole Inker Name | Role | Phone | + [...] +------+-------+ + | MEDICAID | [place] | [id number] | | | [address] | | | N | | | | [place] | | | [place] | | | | [address] | | | CAREER TECHNICAL EDUCATION INSTRUCTOR | | | | | + +--------+ [...] Self | [birth year] | Home: | [address] | | | al/Fam | | 1970 | [phone] | [place] [address] | | | neil | | | 2049 | | + +--------+ +--------+ + +
--- OUTSIDE RECORDS SUMMARY | ~2019-08-08 | XMS | Encounter Summary ---
Demographics + + + | Address | [address] | | | [place] [address] | + + + | Home Phone [...] | Author | [facility] | | | and Shaneana | + + + | Organization | [facility] | | | and [...] [place], [place] | | | | | [address] | | + + + + + | Pratibha Hester | ECON | Unknown | + | + + + + + | Demian Powell | ECON | Unknown | + | + + + + + Care Team Providers + +------+ + | Care Compressor Mechanic Bus Name | Role | Phone | + [...] + + | 09/29/ | Telephone | [facility] | Denilson Jorge | Other (AUTHORIZATION | | 2012 | | [address] | FMD [address] | FOR SURGERY) | | | | [address] | [address] [place] [address] | | | | | [place] | [address] | | | | | [address] | [phone] | | | | [phone] | | | +--------+ + + + [...] | | | | | | [place] [address] | | | | | | [phone] | | | | | | | | +--------+---------+ + + + documented as of this encounter Visit Diagnoses Not on filedocumented in this encounter"
--- OUTSIDE RECORDS SUMMARY | ~2019-08-08 | XMS | Encounter Summary ---
Demographics + + + | Address | [address] | | | [place] [address] | + + + | Home Phone [...] | Author | [facility] | | | and Shaneana | + + + | Organization | [facility] | | | and [place] [...] [place], [place] | | | | | [address] | | + + + + + | Pratibha Hester | ECON | Unknown | + | + + + + + | Demian Powell | ECON | Unknown | + | + + + + + Care Team Providers + +------+ + | Care Telegraph Dispatcher Name | Role | Phone | + [...] [address] | [address] [place], [place] | intervertebral disc | | | | [place], [place] | [address] | without myelopathy | | | | [address] | | (Primary Dx) | | | | [phone] | | | +--------+ + + + [...] BACK, | | | | | | [place] [address] | | | | | | [phone] | | | | | | | [...] MRI from [facility] dated | [facility] | | June 25, 2014 [...] [address] | [place] | [phone] | | [facility] | | [address] | | | - IMAGING | | | | + + + + + documented in this encounter Visit Diagnoses + + | Diagnosis | + + | 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
--- OUTSIDE RECORDS SUMMARY | ~2019-08-08 | XMS | Clinical Summary ---
Demographics + + + | Address | [address] | | | [place] [address] | + + + | Home Phone [...] Author | [facility] | | | and Shaneana | + + + | Organization | [facility] | | | and [...] [place], [place]AKEL | | | | | [address] | | + + + + + | Pratibha Hester | ECON | Unknown | + | + + + + + | Demian Powell | ECON | Unknown | + | + + + + + Care Team Providers + +------+ + | Care Clinical Resource Manager Name | Role | Phone | [...] 0 | | | Activ | | [address]302 units CAPS | mouth Daily. | | [...] | + + + + | INFLUENZA, [id number], | 08/05/2009 | | | UNSPECIFIED | [...] | | | | | | [place] [address] | | | | | | [phone] | | | | | | | [...] | OSTEOTECH - | | 10/03/ | [id number] | | [id number]: Qty: 1 | | | OSTT | | 2020 | | | on 12/12/2014 by [place], | | | | | | /[id number] | | Sascha Armendariz DO at [facility] | | | | | | 2-039 | | [facility] | | | | | | /38-30 | | | | | | | | 12 | + +------+--------+ +--------+--------+--------+ | Graft Infuse Bone Kit Xxs - | | | [facility] | | / | [id number] | | [id number]: Qty: 1 on | | | DANEK - DIV | | 2015 | 0 / | | 12/12/2014 by Sascha Mir | | | [employer] | | | /[id number] | | DO Kala at [facility] | | | - SFDK | | | [id number] | | [facility] | | | | | | | + +------+--------+ +--------+--------+--------+ | SpacerImplanted: Qty: 1 on | | Machinist Class B | [employer] - | | 10/04/ | [id number] | | 12/12/2014 by Sascha Mir | | ior: | MEDT | | 3 | 9 / | | DO Kala at [facility] | | Spine | | | | /[id number] | | [facility] | | Lumbar | | | | 520 | + +------+--------+ +--------+--------+--------+ | Screw Amanda Solera 6.5x50mm - | | Machinist Class B | [facility] | | | [id number] | | [id number]: Qty: 1 on | | ior: | DANEK - DIV | | | [id number] | | 12/12/2014 by Sascha Mir | | Spine | [employer] | | | / / | | DO Kala at [facility] | | Lumbar | - [facility]FDK | | | | | [facility] | | | | | | | + +------+--------+ +--------+--------+--------+ | Screw Amanda Solera 6.5x45mm - | | Machinist Class B | [facility] | | | [id number] | | [id number]: Qty: 1 on | | ior: | DANEK - DIV | | | [address] | | 12/12/2014 by Sascha Mir | | Spine | [employer] | | | / / | | DO Kala at [facility] | | Lumbar | - [facility] | | | | | [facility] | | | | | | | + +------+--------+ +--------+--------+--------+ | Screw Mas G5 Slra 7.5x40 Cn - | | Machinist Class B | [facility] | | | [id number] | | [id number]: Qty: 1 | | ior: | DANEK - DIV | | | [address] | | on 12/12/2014 by Clarke, | | Spine | [employer] | | | / / | | Sascha Armendariz DO at [facility] | | Lumbar | - [facility] | | | | | [facility] | | | | | | | + +------+--------+ +--------+--------+--------+ | Screw Amanda 8.5x40mm - | | Machinist Class B | [employer] - | | | [id number] | | [id number]: Qty: 1 on | | ior: | MEDT | | | [address] | | 12/12/2014 by Sascha Mir | | Spine | | | | / / | | DO Kala at [facility] | | Lumbar | | | | | | [facility] | | | | | | | + +------+--------+ +--------+--------+--------+ | Set Scrw Ns G5 Brk Off Ti | | Machinist Class B | [facility] | | | [id number] | | 4.75 - [id number]: | | ior: | DANEK - DIV | | | 0 / / | | Qty: 4 on 12/12/2014 by | | Spine | [employer] | | | | | Sascha Mir DO at [facility] | | Lumbar | - [facility] | | | | | [facility] | | | | | | | | CENTER | | | | | | | + +------+--------+ +--------+--------+--------+ | Imp Spn Francis Ti Sext Ti 5.5x45 | | Machinist Class B | [facility] | | | [id number] | | - [id number]: Qty: 2 | | ior: | DANEK - DIV | | | 5045 / | | on 12/12/2014 by Clarke, | | Spine | [employer] | | | / | | Sascha Armendariz DO at [facility] | | Lumbar | - [facility] | | | | | [facility] | | | | | | | [...] | Cannulated Screw Cd Horizon | | Machinist Class B | [employer] - | | | [id number] | | SoleraExplanted: Qty: 1 on | | ior: | MEDT | | | [address] | | 12/12/2014 at [facility] | | Spine | | | | / / | | [facility] | | Lumbar | | | | [...] | [employer] | MODA | [id number] | | [phone] | | Medica | | MEDICAID HMO | HEALTH | | 015-Pr | 1 | | id | | | MDCD | | esent | | | | | | [place]MO [place] | | | | | | + +--------+ +--------+ +---------+--------+ | HEALTH | IHS | [id number] | 05/17/ | | | Indemn | | SERVICE | YELLOW | | 2012-P | | | ity | | | HAWK | | resent | | | | + +--------+ +--------+ +---------+--------+ | [employer] | MODA | [id number] | | [phone] | | Medica | | MEDICAID HMO | HEALTH | | 019-Pr | 1 | | id | | | MDCD | | esent | | | | | | [place]MO [place] | | | | | | + +--------+ +--------+ +---------+--------+ | [facility] | IHS | [id number] | 04/08/20 | | | Indemn | [...] | 1970 | [phone] | [place] [address] | | | neil | | | 8 (Home) | | + +--------+ +--------+ + + | Demian Nina | Person | Self | [birth year] | [address] | | | al/Fam | | 1970 | [phone] | [place] [address] | | | neil | | | 8 (Home) | | + +--------+ +--------+ + + Advance Directives + + + + + | Type | Date Recorded | Patient | Explanation | | | | Manager Social Work | | + + + + + | Power of | | | | | Storm Window Installer | | | | + + + [...]
--- OUTSIDE RECORDS SUMMARY | ~2019-08-08 | XMS | Encounter Summary ---
Demographics + + + | Address | [address] | | | [place] [address] | + + + | Home Phone [...] + | Author | [facility] | | | and Shaneana | + + + | Organization | [facility] | [...] [place], [place] | | | | | [address] | | + + + + + | Pratibha Hester | ECON | Unknown | + | + + + + + | Demian Powell | ECON | Unknown | + | + + + + + Care Team Providers + +------+ + | Care Alodize Machine Operator Name | Role | Phone | + +------+ + | Quentin Manriquez PA-C | PCP | | + +------+ + Encounter Details +--------+ + + + + | Date | Type | Department | Care Team | Description | +--------+ + + + + | 12/03/ | Orders Only | [facility] | Sascha Mir, | Status post lumbar | | 2014 | | NEUROSURGERY [address] | DO [address] | spinal fusion | | | | [address] | [address] [place], [place] | (Primary Dx) | | | | [place], [place] | [id number] | | | | | [address] | | | | | | [phone] | | | +--------+ + + + [...] | | | | | | [place] [address] | | | | | | [phone] | | | | | | | [...] [address] | [place] | [phone] | | [facility] | | [address] | | | - IMAGING | | | | + + + + + documented in this encounter Visit Diagnoses + + | Diagnosis | + + | Status post lumbar spinal fusion - Primary Arthrodesis status | + + documented in this encounter"
--- OUTSIDE RECORDS SUMMARY | ~2019-08-08 | XMS | Encounter Summary ---
Demographics + + + | Address | [address] | | | [place] [address] | + + + | Home Phone [...] | Author | [facility] | | | and Shaneana | + + + | Organization | [facility] | | | and [...] | [place] | | | | | [address] | | + + + + + | Pratibha Hester | ECON | Unknown | + | + + + + + | Demian Powell | ECON | Unknown | + | + + + + + Care Team Providers + +------+ + | Care Supervisor Core Shop Name | Role | Phone | + [...] | | | spondylolist | | [address] | | | | | hesis | | [place], | | | | | Acquired | | [place] [address] | | | | | spondylolist | | Phone: | | | | | hesis | | [phone] | | | | | Procedures | | Fax: | | | | | [place] | | [phone] | | | | | POST/POSTERO | [...] + + | 12/12/ | Hospital | [facility] | Sascha Mir, | | | 2015 - | Encounter | MED CTR SURGICAL | DO [address] | | | | | [address] [place] | [address] | | | 12/16/ | | [place] [address] | [address] | | | 2014 | | [phone] | | | +--------+ + + + [...] of admission the patient was [facility] and underwent a L5-S1 fusion . [...] and she was ultimately discharged to [facility]. Medications Reconciled upon Discharge are: [...] Discharge: Stable Disposition: Patient was discharged to [facility]. Follow-Up Plans: Follow-up with: Dr. Mir's office [...] might be different f rom the original. [facility] NEUROSURGERY PROGRESS NOTE Pt. Name/Age/: Demian [...] surgery. She is reay to go [facility] in [place]. No further C/C OBJECTIVE: Patient Vitals for [...] ASSESSMENT:SP L5-S1 fuison Plan:Yoselin Claudio. [place] [facility] today. See DC summary. Electronically signed by: Amol Triplett, 12/16/2014 7:36 [facility] Sascha Beck DO - 12/15/2014 9:20 AM PDT Subjective The patient was seen and examined by me today. She complains of of left tingling - improved from numbness, and left leg dysesthesia. Her l egs feel strong. Moderate surgical pain, but tolerable. She would like to go to SNF in [facility] before discharge home. Objective Filed Vitals: 12/15/14 [...] to SNF in [facility] before discharge home. Objective Filed Vitals: 12/14/14 [...] Range POC Test, Urine Negative POC Specific [place] Internal QC Acceptable Lot Number [id number] Expiration Date POC GLUCOSE Result Value Ref [...] | | | | | | [place] [address] | | | | | | [phone] | | | | | | | [...] | of hardware for posterior fusion from G0qcimuqb S1 with interbody hardware at L5-S1. | [...] ST. | [address] | [place], [place] | [phone] | | [facility] | | [address] | | | - LABORATORY | | [...] Specific | | | | | | [place], | | | | | | POC | | | | | + + + + + + | Internal QC | Acceptable | | | | + + + + + + | Lot Number | [id number] | | | | + + + [...] ST. | [address] | [place], [place] | [phone] | | [facility] | | [address] | | | - LABORATORY | | [...] [address] | [place] | | | [facility] | | [address] | | | - BLOOD BANK | [...] | | | | | | | [facility] 12/12/14 at 1500, For 2 [...] PDT | | | | | Starting [facility] 12/12/14 at 1433, | | [...] | | | | | | | [facility] 12/12/14 at 1300, For 3 [...] PDT | | | | | Starting [facility] 12/12/14 at 1433, | | [...] | | | | | Intravenous, ONCE, [facility] 12/12/14 at | | PM [...]
--- OUTSIDE RECORDS SUMMARY | ~2019-08-08 | XMS | Encounter Summary ---
Demographics + + + | Address | [address] | | | [place] [address] | + + + | Home Phone [...] Author | [facility] | | | and [place]ana | + + + | Organization | [facility] | | | and [place] [...] [place], [place] | | | | | [address] | | + + + + + | Pratibha Hester | ECON | Unknown | + | + + + + + | Demian Powell | ECON | Unknown | + | + + + + + Care Team Providers + +------+ + | Care Director Of Student Affairs Name | Role | Phone | + +------+ + | uQentin Manriquez PA-C | PCP | | + +------+ + Encounter Details +--------+ + + + + | Date | Type | Department | Care Team | Description | +--------+ + + + + | 09/26/ | Hospital | [facility] | Sascha Mir, | Displacement of | | 2014 | Encounter | MED CTR XRAY [address] | DO [address] | lumbar | | | | [place] | [address] [place], [place] | intervertebral disc | | | | [place] [address] | [address] | without myelopathy | | | | [phone] | | | +--------+ + + + [...] BACK, | | | | | | [place] [address] | | | | | | [phone] | | | | | | | [...] | HISTORY:Back pain COMPARISON: MRI from [facility] dated | [facility] | | June 25, 2014 [...] 09/26/2014 8:51 AMHISTORY:Back painCOMPARISON: MRI from [facility] dated | | June 25, 2014 [...] | | |Dictated and Signed by: Vega oVra MD | | Electronically signed: 09/26/2014 10:47 AM | + + + + + + + | Performing | Address | City[facility]State[facility] | Phone Number | | Organization | | | | + + + + + | [facility] | [address] | [place] | [phone] | | [facility] | | [address] | | | - IMAGING | | | | + + + + + documented in this encounter Visit Diagnoses + + | Diagnosis | + + | Displacement of lumbar intervertebral disc without myelopathy | + + documented in this encounter"
--- OUTSIDE RECORDS SUMMARY | ~2019-08-08 | XMS | Encounter Summary ---
Demographics + + + | Address | [address] | | | [place] [address] | + + + | Home Phone [...] Author | [facility] | | | and Shaneana | + + + | Organization | [facility] | | | and [...] [place]IS[place]NA[place], [place]AKEL | | | | | [address] | | + + + + + | Pratibha Hester | ECON | Unknown | + | + + + + + | Demian Powell | ECON | Unknown | + | + + + + + Care Team Providers + +------+ + | Care Entry Analyst Name | Role | Phone | [...] 2017 | | CONVERSION [address] | MD [address] | | | | | [address] | [address] [place], [place] | | | | | [place], [place] | [address] | | | | | [address] | | | | | | [phone] | | | +--------+ + + + [...] | 09/25/ | Office | Cardiology | [place], Rudy M, | | | 2019 | Visit | | MD [address] | | | | | | [place], | | | | | | [place] [address] | | | | | | [phone] | | | | | | | [...] MV A Ollie: 0.67 m/s MV Dec Stafford: 3.90 m/s2 MV | | | DecT: 192.12 ms MV E Ollie: 0.75 m/s MV E/A Ratio: 1.11 MV | | | PHT: 55.71 ms MVA By PHT: 3.94 cm2 Septal e': 0.04 m/s | | | Septal E/e': 15.99 Lateral e': 0.06 m/s Lateral E/e': 11.01 | | | Preschool Teacher Assistant: DBS Authenticated by: Itzel Mendoza Report | [...] cmLVIDd: 4.40 cmLVPWd: 0.94 cmLVOT Area: 3.61 qt3UMSO Diam: 2.14 cm%FS: 30.32 | | %EF(Teich): [...] mlLAESV Index (A-L): 20.19 ml/m2LAAs A2C: 13.00 [id number] A-L | | A2C: 36.94 mlLALs A2C: 3.88 cmLAAs A4C: 15.93 [id number] A-L A4C: 49.93 mlLALs | | A4C: 4.31 cmRAAs: 10.82 [id number] A-L: 24.00 mlRAESV MOD: 22.53 mlRALs: 4.14 | | cmTAPSE: 1.61 cmAV maxP.99 mmHgAV meanP.27 mmHgAV Vmax: 1.73 m/Trang | | Vmean: 1.19 m/Trang VTI: 27.27 cmAVA Vmax: 2.35 cm2AVA (VTI): 2.65 lh1RFHF (Vmax): | | 0.00 cm2/m2AVAI (VTI): 0.00 cm2/m2LVOT maxP.08 mmHgLVOT meanP.38 | | mmHgLVSI Dopp: 32.31 ml/m2LVSV Dopp: 72.37 mlLVOT Vmax: 1.12 m/sLVOT Vmean: 0.72 | | m/sLVOT VTI: 20.04 cmMV A Ollie: 0.67 m/sMV Dec Stafford: 3.90 m/s2MV DecT: 192.12 | | msMV E Ollie: 0.75 m/sMV E/A Ratio: 1.11MV PHT: 55.71 msMVA By PHT: 3.94 [id number] | | e': 0.04 m/sSeptal E/e': 15.99Lateral e': 0.06 m/sLateral E/e': 11.01 | | Preschool Teacher Assistant: DBSAuthenticated by: Itzel [facility] Date/Time: 06-01-2018 19:30:56 | | IMPRESSION: 1. [...] A Ollie: 0.67 m/s | |MV Dec Stafford: 3.90 m/s2 | |MV DecT: 192.12 ms | |MV E Ollie: 0.75 m/s | |MV E/A Ratio: 1.11 | |MV PHT: 55.71 ms | |MVA By PHT: 3.94 cm2 | |Septal e': 0.04 m/s | |Septal E/e': 15.99 | |Lateral e': 0.06 m/s | |Lateral E/e': 11.01 | | | |Preschool Teacher Assistant: DBS | |Authenticated by: Itzel Mendoza | [...]
--- OUTSIDE RECORDS SUMMARY | ~2019-08-08 | XMS | Encounter Summary ---
Demographics + + + | Address | [address] | | | [place] [address] | + + + | Home Phone [...] | [facility] | | | and Shaneana | + + + | Organization | [facility] | | [...] [place] | | | | | [address] | | + + + + + | Pratibha Hester | ECON | Unknown | + | + + + + + | Demian Powell | ECON | Unknown | + | + + + + + Care Team Providers + +------+ + | Care Handkerchief Folder Name | Role | Phone | + [...] + | 12/17/ | Telephone | [facility] | Sascha Mir, | Medication | | 2014 | | NEUROSURGERY [address] | DO [address] | Management | | | | POPLAR [facility] | [address] [place], [place] | | | | | [place], [place] | [id number] | | | | | [address] | | | | | | [phone] | | | +--------+ + + + [...] | | | | | | [place] [address] | | | | | | [phone] | | | | | | | | +--------+---------+ + + + documented as of this encounter Visit Diagnoses Not on filedocumented in this encounter"
--- OUTSIDE RECORDS SUMMARY | ~2019-08-08 | XMS | Encounter Summary ---
Demographics + + + | Address | [address] | | | [place] [address] | + + + | Home Phone [...] Team Providers + +------+ + | Care Cable Tower Operator Name | Role | Phone | + +------+ + | Soniya Sinha [facility] | PCP | | + +------+ + Encounter Details +--------+ + + + + | Date | Type | Department | Care Team | Description | +--------+ + + + + | 10/03/ | Absence Management Consultant | Otolaryngology | Windy Mclean | Dizziness (Primary | | 2013 | | Otology Services at | MD Loli [address] | Dx); Hearing loss | | | | [address] | | | | | [address] | [facility] [place] | | | | | Mailcode: PV01 | [address] | | | | | [facility] | [phone] | | | | | [place], [place] | | | | | | [address] | | | | | | [phone] | | | +--------+ + + + [...]
--- OUTSIDE RECORDS SUMMARY | ~2019-08-08 | XMS | Encounter Summary ---
Demographics + + + | Address | [address] | | | [place] [address] | + + + | Home Phone [...] Team Providers + +------+ + | Care Slide Fastener Chain Assembler Name | Role | Phone | + +------+ + | Gracie Lewis PA-C | PCP | | + +------+ + Encounter Details +--------+ + + + + | Date | Type | Department | Care Team | Description | +--------+ + + + + | 10/19/ | Outside | [facility] | Angelo Abrams | | | 2019 | Referral | [facility] [address] | MD Ginny [address] | | | | Order | Melvin Schreiber Mailcode: | georgette Cano | | | | | [address] [place] [address] for | [place] [address] | | | | | Health and Healing, | [phone] | | | | | [facility] 2 | | | | | | [place], [place] | | | | | | [address] | | | | | | [phone] | | | +--------+ + + + [...]
--- OUTSIDE RECORDS SUMMARY | ~2019-08-08 | XMS | Encounter Summary ---
Demographics + + + | Address | [address] | | | [place] [address] | + + + | Home Phone [...] Providers + +------+ + | Care Software Support Analyst Name | Role | Phone | [...] | Otology Services at | MD Loli [address] | | | | | [address] | | | | | [address] | [place], [place] | | | | | Mailcode: PV01 | [address] | | | | | [facility] | [phone] | | | | | [place], [place] | | | | | | [address] | | | | | | [phone] | | | +--------+ + + + [...]
--- OUTSIDE RECORDS SUMMARY | ~2019-08-08 | XMS | Encounter Summary ---
Demographics + + + | Address | [address] | | | [place] [address] | + + + | Home Phone [...] + | Author | [facility] | | | and Shaneana | + + + | Organization | [facility] | | [...] [place], [place] | | | | | [address] | | + + + + + | Pratibha Hester | ECON | Unknown | + | + + + + + | Demian Powell | ECON | Unknown | + | + + + + + Care Team Providers + +------+ + | Care Electrical Checkout Mechanic Name | Role | Phone | [...] + + | 02/25/ | Telephone | [facility] | Sascha Mir, | Medication Refill | | 2014 | | NEUROSURGERY [address] | DO [address] | | | | | [facility] | [address] [place], [place] | | | | | [place] | [address] | | | | | [address] | | | | | | [phone] | | | +--------+ + + + [...] | | | | | | [place] [address] | | | | | | [phone] | | | | | | | | +--------+---------+ + + + documented as of this encounter Visit Diagnoses + + | Diagnosis | + + | Nausea - Primary Nausea alone | + + documented in this encounter"
--- OUTSIDE RECORDS SUMMARY | ~2019-08-08 | XMS | Encounter Summary ---
Demographics + + + | Address | [address] | | | [place] [address] | + + + | Home Phone [...] | Author | [facility] | | | and Shaneana | + + + | Organization | [facility] | | | and [...] [place] | | | | | [address] | | + + + + + | Pratibha Hester | ECON | Unknown | + | + + + + + | Demian Powell | ECON | Unknown | + | + + + + + Care Team Providers + +------+ + | Care Singer And Unloader Name | Role | Phone | [...] + + | 06/11/ | Telephone | [facility] | Sascha Mir, | Other (Med refill) | | 2014 | | NEUROSURGERY [address] | DO [address] | | | | | [address] | [address] [place], [place] | | | | | [place], [place] | [address] | | | | | [address] | | | | | | [phone] | | | +--------+ + + + [...] DR | | | | | | [place], | | | | | | [place] [address] | | | | | | [phone] | | | | | | | | +--------+---------+ + + + documented as of this encounter Visit Diagnoses + + | Diagnosis | + + | Nausea - Primary Nausea alone | + + documented in this encounter"
--- OUTSIDE RECORDS SUMMARY | ~2019-08-08 | XMS | Encounter Summary ---
Demographics + + + | Address | [address] | | | [place] [address] | + + + | Home Phone [...] Team Providers + +------+ + | Care Carpenter Labor Supervisor Name | Role | Phone | [...] | | | [address] | [place], [place] | | | | | Mailcode: PV01 | [address] | | | | | [facility] | [phone] | | | | | [place], [place] | | | | | | [address] | | | | | | [phone] | | | +--------+ + + + [...]
--- OUTSIDE RECORDS SUMMARY | ~2019-08-08 | XMS | Encounter Summary ---
Demographics + + + | Address | [address] | | | [place] [address] | + + + | Home Phone [...] Providers + +------+ + | Care Computer Software Engineer Name | Role | Phone [...] | | | | Gastroesopha | AGACNP 0512 | | | | | | geal reflux | [address] | | | | | | disease, | [place], | | | | | | esophagitis | [place] | | | | | | presence not | [address] | | | | | | specified | Phone: | | | | | | Severe | [phone] | | | | | | obesity | Fax: | | | | | | ([facility]) Type | [phone] | | | | | | 2 [...] Pain | Diagnoses | Berna, | Manager Energy Psych | | | | Management | | Jen Gross, | [address] | | | | | Gastroesopha | AGACNP [address] | | | | | geal reflux | [address] | Mailcode: | | | | | disease, | [place], | [facility] | | | | | esophagitis | [place] | for Health | | | | | presence not | [address] | and Healing, | | | | | specified | Phone: | Building 1, | | | | | Severe | | 15th Floor | | | | | obesity | Fax: | [place], [place] | | | | | ([facility]) Type | [phone] | [address] | | | | | 2 diabetes | | Phone: | | | | | mellitus | | [phone] | | | | | without | | Fax: | | | | | complication | | [phone] | | | | | , with [...] Satinder Capellan MD | | | with MACHINE III COREMAKER | | (severe) | PA-C | [address] | | | | | obesity due | [place] | Ave | | | | | to excess | [place] | [place], [place] | | | | | calories | Health | [address] | | | | | Obesity, | Center [address] | Phone: | | | | | unspecified | | [phone] | | | | | | [place] | Fax: | | | | | | Way [address] | [phone] | | | | | | [address] | | | | | | | [place], | | | | | | | [place] [address] | | | | | | | Phone: | | | | | | | [phone] | | | | | | | Fax: | | | | | | | [phone] | | + + + + + [...] | | [address] | Ave [place], [place] | Gastroesophageal | | | | Mailcode: Center | [address] | reflux disease, | | | | for Health and | [phone] | esophagitis presence | | | | Healing, Building [address] | | not specified; Type | | | | [place], [place] | | 2 diabetes mellitus | | | | [address] | | without | | | | [phone] | | complication, with | | | | | | long-term current | | | | | | 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 | | | | | | ([facility]); Hx of | | | | [...] this encounter Patient Instructions Patient Instructions Jen Coronel AGACNP - 06/27/2019 12:50 PM PST [...] Pre-op Psychological Evaluation: Your referral is at [facility], the Pain Management Office w ill call you in the next week to schedule. + Hemoglobin A1C will have to be below 8 prior to surgery. + Weight Management classes: 2 classes are required in addition to your private appointme nt with the foreign exchange trader. These classes will be scheduled apporoximately 1 month apart to allow time for you to put the teaching into action. Please call [phone] to schedule these classes after you have [...] and lifestyle. The patient has seen our [facility] foreign exchange trader and physical therapy colleagues to discuss exercise [...] a healthy weight. 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 female who presents with a [facility] medical history of morbid obesity [...] Redux or Phen/fen: no Transthoracic ECHO: na Restoration or cultural reason you would refuse blood [...] day prior to colonoscopy as directed by [facility]. Discard remaining half jug. Indications: Bowel Evacuation, [...] file Gets together: Not on file Attends yazdanism service: Not on file Active member of [...] inches / 40 cm around (measure at [employer])? Yes 8. Gender = Male? No High risk of sleep apnea if "yes' to four or more Cardiovascular: HTN on losartan, HLD--on statin Denies exertional chest pain, palpitations, syncope, orthopnea, or paroxysmal nocturnal dy spnea. Denies history of lower extremity edema, . Denies CHF, AR, ischemic heart disease, DV T/PE, or pulmonary [...] ordered -ok to do this locally in [place] -Is a stomach sleeper, may not tolerate [...] Pre-op Psychological Evaluation: Your referral is at [facility], the Pain Management Office w ill call you in the next week to schedule. + Hemoglobin A1C will have to be below 8 prior to surgery. + Weight Management classes: 2 classes are required in addition to your private appointme nt with the foreign exchange trader. These classes will be scheduled apporoximately 1 month apart to allow time for you to put the teaching into action. Please call [phone] to schedule these classes after you have [...] and lifestyle. The patient has seen our [facility] foreign exchange trader and physical therapy colleagues to discuss exercise [...] a healthy weight. + Sign up for TeeBeeDee so that we can communicate easily back [...] other providers does not guarantee that the [facility] Bariatric Surger y program will deem you [...] Coronel, MSN, AG-ACNP Bariatric Surgery Nurse Practitioner [facility] | [address] | [place], [place] | [address] | documented in th is encounter Plan [...]
--- OUTSIDE RECORDS SUMMARY | ~2019-08-08 | XMS | Encounter Summary ---
Demographics + + + | Address | [address] | | | [place] [address] | + + + | Home Phone [...] Author | [facility] | | | and Shaneana | + + + | Organization | [facility] | | | and [...] | [place] | | | | | [address] | | + + + + + | Pratibha Hester | ECON | Unknown | + | + + + + + | Demian Powell | ECON | Unknown | + | + + + + + Care Team Providers + +------+ + | Care Strategic Communications Manager Name | Role | Phone | [...] | | | spondylolist | | [address] | | | | | hesis | | [place], | | | | | Acquired | | [place] [address] | | | | | spondylolist | | Phone: | | | | | hesis | | [phone] | | | | | Procedures | | Fax: | | | | | [place] ARTHDSIS | | [phone] | | | | | POST/POSTERO | [...] | | | | | [address] | [place] | | | | | [place] | [address] | | | | | [address] | | | | | | [phone] | | | +--------+ + + + [...] +----+---+ + + | | 0 | Colly[address] | | | | 9 | 43-degrees [...] +----+---+ + + | | 1 | [address] off | | | | 2 | [...] | | | | | | [place] [address] | | | | | | [phone] | | | | | | | [...] | | | | | Breath, Starting [facility] 12/12/14 at | | PM PDT [...] | | | | to Incision, Starting [facility] 12/12/14 | | | | | [...] | | | | | PRN, Starting [facility] 12/12/14 at 0949, | | AM [...] 11:14 | | | | | Starting [facility] 12/12/14 at 0947, | | AM [...]
--- OUTSIDE RECORDS SUMMARY | ~2019-08-08 | XMS | Encounter Summary ---
Demographics + + + | Address | [address] | | | [place] [address] | + + + | Home Phone [...] Author | [facility] | | | and Shaneana | + + + | Organization | [facility] | [...] [place], [place] | | | | | [address] | | + + + + + | Pratibha Hester | ECON | Unknown | + | + + + + + | Demian Powell | ECON | Unknown | + | + + + + + Care Team Providers + +------+ + | Care Cognos Developer Name | Role | Phone | [...] + + | 02/24/ | Telephone | [facility] | Vega Smith MD | Appointment | | 2017 | | GASTROENTEROLOGY | [address], [place] | | | | | [address] [place] | [address] [place], [place] | | | | | [address] [place], [place] | [address] | | | | | [address] | | | | | | [phone] | | | +--------+ + + + [...] | | | | | | [place] [address] | | | | | | [phone] | | | | | | | | +--------+---------+ + + + documented as of this encounter Visit Diagnoses Not on filedocumented in this encounter"
--- OUTSIDE RECORDS SUMMARY | ~2019-08-08 | XMS | Encounter Summary ---
Demographics + + + | Address | [address] | | | [place] [address] | + + + | Home Phone [...] Team Providers + +------+ + | Care Paving Crew Foreman Name | Role | Phone | + [...] | | | | | | [address] [place], [place] | | | | | | [address] | | | | | | [phone] | | | +--------+ + + + [...]
--- OUTSIDE RECORDS SUMMARY | ~2019-08-08 | XMS | Encounter Summary ---
Demographics + + + | Address | [address] | | | [place] [address] | + + + | Home Phone [...] Author | [facility] | | | and Shaneana | + + + | Organization | [facility] | | | and [place] [...] [place] | | | | | [address] | | + + + + + | Pratibha Hester | ECON | Unknown | + | + + + + + | Demian Powell | ECON | Unknown | + | + + + + + Care Team Providers + +------+ + | Care Implementation Technician Name | Role | Phone | [...] + + | 12/19/ | Telephone | [facility] | Sascha Mir, | Other | | 2014 | | NEUROSURGERY [address] | DO [address] | | | | | [address] [facility] 50 | [address] [place], [place] | | | | | [place], [place] | [id number] | | | | | [address] | | | | | | [phone] | | | +--------+ + + + [...] | | | | | | [place] [address] | | | | | | [phone] | | | | | | | | +--------+---------+ + + + documented as of this encounter Visit Diagnoses Not on filedocumented in this encounter"
--- OUTSIDE RECORDS SUMMARY | ~2019-08-08 | XMS | Encounter Summary ---
Demographics + + + | Address | [address] | | | [place] [address] | + + + | Home Phone [...] [facility] | | | and Shaneana | + + + | Organization | [facility] | | [...] [place] | | | | | [address] | | + + + + + | Pratibha Hester | ECON | Unknown | + | + + + + + | Demian Powell | ECON | Unknown | + | + + + + + Care Team Providers + +------+ + | Care Black And White Printer Operator Name | Role | Phone | [...] | | [place] [address] | [place] [address] | | | | | [address] | [phone] | | | | | [phone] | | | +--------+--------+ + + + [...] | | | | | | [place] [address] | | | | | | [phone] | | | | | | | | +--------+---------+ + + + documented as of this encounter Visit Diagnoses + + | Diagnosis | + + | Nausea Nausea alone | + + documented in this encounter"
--- OUTSIDE RECORDS SUMMARY | ~2019-08-08 | XMS | Encounter Summary ---
Demographics + + + | Address | [address] | | | [place] [address] | + + + | Home Phone [...] Author | [facility] | | | and Shaneana | + + + | Organization | [facility] | | | and [...] [place], [place] | | | | | [address] | | + + + + + | Pratibha Hester | ECON | Unknown | + | + + + + + | Demian Powell | ECON | Unknown | + | + + + + + Care Team Providers + +------+ + | Care Tar Heater Operator Name | Role | Phone | [...] | 06/20/ | Refill | [facility] | Char Duque | Medication Refill | | 2019 | | PLASTIC SURGERY AND | B CREATIVE COORDINATOR [address] | | | | | DERMATOLOGY [address] | [address] | | | | | [address] | [place] [address] | | | | | [place], [place] | [phone] | | | | | [address] | | | | | | [phone] | | | +--------+--------+ + + + [...] | | | | | | [place] [address] | | | | | | [phone] | | | | | | | | +--------+---------+ + + + documented as of this encounter Visit Diagnoses Not on filedocumented in this encounter"
--- OUTSIDE RECORDS SUMMARY | ~2019-08-08 | XMS | Encounter Summary ---
Demographics + + + | Address | [address] | | | [place] [address] | + + + | Home Phone [...] Providers + +------+ + | Care Senior Hr Business Partner Name | Role | Phone | [...] | | | | to excess | [place] | Mailcode: | | | | | calories | Health | Center for | | | | | Obesity, | Center [address] | Health and | | | | | unspecified | | Healing, | | | | | | [address] | [address] | | | | | | Way [address] | [place], [place] | | | | | | [address] | [address] | | | | | | [place], | Phone: | | | | | | [place] [address] | [phone] | | | | | | Phone: | Fax: | | | | | | [phone] | [phone] | | | | | | Fax: | | | | | | | [phone] | | + +--------+ + + + + Encounter Details +--------+---------+ + + + | Date | Type | Department | Care Team | Description | +--------+---------+ + + + | 06/27/ | Office | Digestive Health | Eli Rodas, | Severe obesity (BMI | | 2019 | Visit | Center at [address] | >= 40) ([facility]) | | | | [address] | [address] | (Primary Dx); Type 2 | | | | Mailcode: Center | [place], [place] | diabetes mellitus | | | | for Health and | [address] | with other specified | | | | Healing, [address] | | complication, with | | | | [place], [place] | | long-term current | | | | [address] | | 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 ([facility]) | | | | [phone] | | | +--------+---------+ + + + [...] of Visit: 1:55 until 2:40 (45 minutes [id number] with patient) SUBJECTIVE: Pt comes in alone. Pt shares she usually skips breakfast but snacks a lot in af ternoons and evenings. Pt shares she eats a lot of pizza and drinks a lot of soda. 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 Will finish in two years. When reviewing [...] shares she has access gym on the [employer] 24 hr food recall: Pt has a [...] 2 pre-surgery classes. 4. Call or send [employer] message to dietitian with any questions. Contact information was provided. Follow up with dietitian 1-2 weeks after surgery at first post-op visit. Eli Rodas, MS, RDN, CSOWM, LD, CDE [facility] [phone] documented in this e ncounter Plan of [...] | | | | 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 ([facility]) | | + +--------+ + + + [...]
--- OUTSIDE RECORDS SUMMARY | ~2019-08-08 | XMS | Encounter Summary ---
Demographics + + + | Address | [address] | | | [place] [address] | + + + | Home Phone [...] Team Providers + +------+ + | Care Key Maker Name | Role | Phone | [...] | | ([facility] at [facility] [address] | [facility] | | | | | [address] | [place], [place] | | | | | Mailcode: [place] | [address] | | | | | [facility] and | [phone] | | | | | [place] [address] | | | | | | [place], [place] | | | | | | [address] | | | | | | [phone] | | | +--------+ + + + [...]
--- OUTSIDE RECORDS SUMMARY | ~2019-08-08 | XMS | Encounter Summary ---
Demographics + + + | Address | [address] | | | [place] [address] | + + + | Home Phone [...] Author | [facility] | | | and [place] | + + + | Organization | [facility] | | | and [place] [...] [place], [place] | | | | | [address] | | + + + + + | Pratibha Hester | ECON | Unknown | + | + + + + + | Demian Powell | ECON | Unknown | + | + + + + + Care Team Providers + +------+ + | Care Hat Former Name | Role | Phone | + [...] NEUROSURGERY [address] | [facility] [address] | ) | | | | [address] | [address] [place] [address] | | | | | [place] | [address] | | | | | [address] | [phone] | | | | | [phone] | | | +--------+ + + + [...] | | | | | | [place] [address] | | | | | | [phone] | | | | | | | | +--------+---------+ + + + documented as of this encounter Visit Diagnoses Not on filedocumented in this encounter"
--- OUTSIDE RECORDS SUMMARY | ~2019-08-08 | XMS | Encounter Summary ---
Demographics + + + | Address | [address] | | | [place] [address] | + + + | Home Phone [...] | Author | [facility] | | | and [place] | + + + | Organization | [facility] | | | and [...] [place], [place]AK[place] | | | | | [address] | | + + + + + | Pratibha Hester | ECON | Unknown | + | + + + + + | Demian Powell | ECON | Unknown | + | + + + + + Care Team Providers + +------+ + | Care Public Administration Teacher Name | Role | Phone | + +------+ + | Quentin Manriquez PA-C | PCP | | + +------+ + Encounter Details +--------+ + + + + | Date | Type | Department | Care Team | Description | +--------+ + + + + | 12/15/ | Orders Only | [facility] | Sascha Mir, | Spondylolisthesis of | | 2016 | | NEUROSURGERY [address] | DO [address] | lumbar region; S/P | | | | [address] | [address] [place], [place] | lumbar fusion | | | | [place], [place] | [id number] | | | | | [address] | | | | | | [phone] | | | +--------+ + + + [...] | | | | | | [place] [address] | | | | | | [phone] | | | | | | | | +--------+---------+ + + + documented as of this encounter Visit Diagnoses + + | Diagnosis | + + | Spondylolisthesis of lumbar region Acquired spondylolisthesis | + + | S/P lumbar fusion Arthrodesis status | + + documented in this encounter"
--- OUTSIDE RECORDS SUMMARY | 2019-08-08 16:40 | XMS ---
PreManage Notification: ANA MARIA TURCIOS Security Home Energy Rater Events No recent Security Events currently on file CRITERIA MET - Group Notification - [facility] - Has [facility] CARE PROVIDERS YULISA MELGAR [facility] 03/14/2018-Current PHONE: Unknown BOLIVAR SAVAGE Physician 03/15/2019-Current PHONE: Unknown Angelo Abrams [facility] 07/10/2018-Current PHONE: Unknown Name [facility] 06/11/2019-Current PHONE: [phone] CARMELINA SHAW MD [facility] Primary Care Current PHONE: [phone] Jannette Boyle Primary Care Current [place]- PHONE: [phone] Claudia has no Care Guidelines for this patient. Care History Medical/Surgical 07/10/2018 [facility] - Patient is currently established with [facility]. If patient is seen in the ED during business hours. Please contact CHWs at [facility]. Care Recommendation: This patient has had 5 or more Emergency Department visits in the last 12 months.\T\nbsp; Patient requires education on the scope and purpose of the ED as an acute care provider not a Primary Care Provider and should not be utilized for chronic conditions.\T\nbsp; These are guidelines and the provider should exercise clinical judgment when providing care. 05/16/2018 [facility] - PATIENT HAS A FOLLOW UP APT WITH DR ABRAMS ON 05/23. - [facility] NOTATIONS FROM 05/15/18 CLINIC VISIT LISTED UNDER NOTES ON CLAUDIA. 04/18/2018 [facility] - Patient is currently working with Claudette environmental compliance manager from [employer]- Contact ) if patient is seen in ED. - Claudette has educated patient on diabetic education, but patient is not willing to follow up with further education. - Patient request pain medications at every PCP visit. - Patient has declined mental health evaluation from [facility] Care Recommendation: - USE EXTREME CAUTION IN GIVING NARCOTICS TO THIS PATIENT. - Avoid Discharge Narcotic prescriptions if at all possible. Please use clinical judgement. [place] VISIT COUNT (12 MO.) 5 [facility] [place] TOTAL 5 NOTE: Visits indicate total known visits. ED/UCC VISIT TRACKING (12 MO.) 08/08/2019 16:38 [facility] [place] TYPE: Emergency COMPLAINT: - SKIN PROBLEM/ DIABETIC 06/08/2019 18:40 [facility] [place] TYPE: Emergency COMPLAINT: - CHEST PAIN DIAGNOSES: - 1 Type 2 diabetes mellitus without complications - Allergy status to oth drug/meds/biol subst status - Unspecified asthma, uncomplicated - Chest pain, unspecified - longterm (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 - Other 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 project manager (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 - Allergy status to narcotic agent status - Essential (primary) hypertension - Radiographic dye allergy status - Latex allergy status 03/14/2019 13:04 [facility] [place] TYPE: Emergency COMPLAINT: - ABD PAIN DIAGNOSES: - longterm (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 - Unspecified asthma, uncomplicated - Allergy status to narcotic agent status - Essential (primary) hypertension - Allergy status to oth drug/meds/biol subst status - Latex allergy status - Other chest pain - 1 Type 2 diabetes mellitus without complications - Right upper quadrant pain - Personal history of nicotine dependence - Other nursing home (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 01/18/2019 16:29 [facility] [place] TYPE: Emergency COMPLAINT: - SOB/PAIN RIGHT ARM DIAGNOSES: - Cramp and spasm - Unspecified asthma, uncomplicated - Allergy status to narcotic agent status - Acquired absence of other specified parts of digestive tract - Essential (primary) hypertension - Allergy status to anesthetic agent status - Radiographic dye allergy status - longterm (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 - Personal history of nicotine dependence - 1 Type 2 diabetes mellitus without complications - Latex allergy status - Other chest pain - Other nursing home (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 08/10/2018 21:[address] [facility] [place] TYPE: Emergency COMPLAINT: - ABD PAIN DIAGNOSES: - Other 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 project manager (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 - Unspecified abdominal pain [...] nicotine dependence - Right lower quadrant pain INPATIENT VISIT TRACKING (12 MO.) No inpatient visits to display in this time frame [email or web address]
[2019-08-08] MEDS ORDERED: CLEOCIN HCL300 MG PO (17:54)
== END 2019-08-08 18:03 | disposition home or self-care (01) ==
LOC: ED 16:37
DX: L02.211 Cutaneous abscess of abdominal wall (principal); I10 Essential (primary) hypertension; J45.909 Unspecified asthma, uncomplicated; E11.9 Type 2 diabetes mellitus without complications; Z88.6 Allergy status to analgesic agent; Z88.8 Allergy status to other drugs, medicaments and biological substances; Z91.040 Latex allergy status; Z88.5 Allergy status to narcotic agent; Z91.041 Radiographic dye allergy status; Z79.899 Other long term (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; Z79.4 Long term (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
CPT/HCPCS: 99282

== ENCOUNTER 2019-09-17 15:50 | Emergency (ER) | payer OTHER ==
[~2019-09-17] VITALS: Ht 165.1 cm; Wt 111.1 kg
[~2019-09-17 15:50] MED LIST changes: +CLEOCIN HCL300 MG PO
--- OUTSIDE RECORDS SUMMARY | 2019-09-17 15:54 | XMS ---
PreManage Notification: ANA MARIA TURCIOS Security Form Setter Supervisor Events No recent Security Events currently on file CRITERIA MET - Group Notification CARE PROVIDERS YULISA MELGAR [facility] 03/14/2018-Current PHONE: Unknown BOLIVAR SAVAGE Physician 03/15/2019-Current PHONE: Unknown Angelo Abrams [facility] 07/10/2018-Current PHONE: Unknown Name Andre Light/[place] 06/11/2019-Current PHONE: [phone] CARMELINA SHAW MD [facility] Primary Care Current PHONE: [phone] Jannette Boyle Primary Care Current [place] PHONE: [phone] Claudia has no Care Guidelines for this patient. Care History Medical/Surgical 08/09/2019 [facility] \T\middot;\T\nbsp; PATIENT- [facility] ELIGIBLE \T\middot;\T\nbsp; PLEASE REFER PATIENT TO [facility] FOR NON EMERGENT MEDICAL NEEDS. \T\middot;\ T\nbsp; [facility] CAN SEE PATIENTS SAME DAY FOR APTS IF PATIENT CALLS FIRST THING IN THE MORNING. 05/16/2018 [facility] - PATIENT HAS A FOLLOW UP APT WITH DR ABRAMS ON 05/23. - [facility] [place] NOTATIONS FROM 05/15/18 CLINIC VISIT LISTED UNDER NOTES ON CLAUDIA. 04/18/2018 [facility] - Patient is currently working with Claudette TOBARhotel operations manager from [facility]- Contact ) if patient is seen in ED. - Claudette has educated patient on diabetic education, but patient is not willing to follow up with further education. - Patient request pain medications at every PCP visit. - Patient has declined mental health evaluation from [facility]. Care Recommendation: - USE EXTREME CAUTION IN GIVING NARCOTICS TO THIS PATIENT. - Avoid Discharge Narcotic prescriptions if at all possible. Please use clinical judgement. Wild[place] VISIT COUNT (12 MO.) 5 PANK[facility] La TOTAL 5 NOTE: Visits indicate total known visits. ED/UCC VISIT TRACKING (12 MO.) 09/17/2019 15:52 [facility] [place] TYPE: Emergency COMPLAINT: - PAINFUL URINATION 08/08/2019 16:38 [facility] [place] TYPE: Emergency COMPLAINT: - SKIN PROBLEM/ DIABETIC DIAGNOSES: - Radiographic dye allergy status - 1 Type 2 diabetes mellitus without complications - Allergy status to analgesic agent status - Latex allergy status - Right lower quadrant pain - Cutaneous abscess of abdominal wall - Essential (primary) hypertension - [facility] [place] 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 - alf (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 - Allergy status to oth drug/meds/biol subst status - Unspecified asthma, uncomplicated - Allergy status to narcotic agent status 06/08/2019 18:40 [facility] [place] TYPE: Emergency COMPLAINT: - CHEST PAIN DIAGNOSES: - 1 Type 2 diabetes mellitus without complications - Allergy status to oth drug/meds/biol subst status - Unspecified asthma, uncomplicated - Chest pain, unspecified - long term (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 - Other [place] [facility]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 - Allergy status to narcotic agent status - Essential (primary) hypertension - Radiographic dye allergy status - Latex allergy status 03/14/2019 13:04 [facility] [place] TYPE: Emergency COMPLAINT: - ABD PAIN DIAGNOSES: - long term (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 - Unspecified asthma, uncomplicated - Allergy status to narcotic agent status - Essential (primary) hypertension - Allergy status to oth drug/meds/biol subst status - Latex allergy status - Other chest pain - 1 Type 2 diabetes mellitus without complications - Right upper quadrant pain - Personal history of nicotine dependence - Other [place] 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 01/18/2019 16:29 [facility] [place] TYPE: Emergency COMPLAINT: - SOB/PAIN RIGHT ARM DIAGNOSES: - Cramp and spasm - Unspecified asthma, uncomplicated - Allergy status to narcotic agent status - Acquired absence of other specified parts of digestive tract - Essential (primary) hypertension - Allergy status to anesthetic agent status - Radiographic dye allergy status - alf (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 - Personal history of nicotine dependence - 1 Type 2 diabetes mellitus without complications - Latex allergy status - Other chest pain - Other [place] [facility] (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 INPATIENT VISIT TRACKING (12 MO.) No inpatient visits to display in this time frame [email or web address]
[2019-09-17] MEDS ORDERED: LANTUS100 UNITS/ SUB-Q (16:53)
[2019-09-17] MEDS ORDERED: VICTOZA 2-0.6 MG/0.1 SUB-Q (16:54)
[2019-09-17] MEDS ORDERED: MONISTAT 31 EACH VAGINAL (16:55)
[2019-09-17] MEDS ORDERED: ADVAIR 100-501 EACH INH (16:56)
[2019-09-17] MEDS ORDERED: DIFLUCAN150 MG PO (19:06)
[2019-09-17] MEDS ORDERED: GYNE-LOTRIMIN45 GM VAGINAL (19:13)
== END 2019-09-17 19:18 | disposition home or self-care (01) ==
LOC: ED 15:50
DX: B37.2 Candidiasis of skin and nail (principal); E11.65 Type 2 diabetes mellitus with hyperglycemia; I10 Essential (primary) hypertension; E11.9 Type 2 diabetes mellitus without complications; J45.909 Unspecified asthma, uncomplicated; Z87.891 Personal history of nicotine dependence; Z88.6 Allergy status to analgesic agent; Z91.040 Latex allergy status; Z88.5 Allergy status to narcotic agent; Z91.041 Radiographic dye allergy status; Z79.899 Other long term (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; Z79.4 Long term (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
CPT/HCPCS: 81001; 99284

== ENCOUNTER 2019-10-12 16:05 | Emergency (ER) | payer OTHER ==
[~2019-10-12] VITALS: Ht 165.1 cm; Wt 106.1 kg
[~2019-10-12 16:05] MED LIST changes: +ADVAIR 100-501 EACH INH; +DIFLUCAN150 MG PO; +GYNE-LOTRIMIN45 GM VAGINAL; +MONISTAT 31 EACH VAGINAL
--- OUTSIDE RECORDS SUMMARY | 2019-10-12 16:08 | XMS ---
PreManage Notification: ANA MARIA TURCIOS Security Rn Dialysis Events No recent Security Events currently on file CRITERIA MET - Group Notification - [facility] - 2 Visits in 30 Days CARE PROVIDERS YULISA MELGAR [facility] 03/14/2018-Current PHONE: Unknown BOLIVAR SAVAGE Physician 03/15/2019-Current PHONE: Unknown Angelo Abrams [facility] 07/10/2018-Current PHONE: [phone] Salud Light/[place] 06/11/2019-Current PHONE: [phone] CARMEILNA SHAW MD [facility] Primary Care Current PHONE: [phone] Jannette Boyle [facility] Care Current [place] PHONE: [phone] Claudia has no Care Guidelines for this patient. Care History Medical/Surgical 08/09/2019 [facility] \T\middot;\T\nbsp; PATIENT- [facility] ELIGIBLE \T\middot;\T\nbsp; PLEASE REFER PATIENT TO [facility] FOR NON EMERGENT MEDICAL NEEDS. \T\middot;\ T\nbsp; [facility] CAN SEE PATIENTS SAME DAY FOR APTS IF PATIENT CALLS FIRST THING IN THE MORNING. 05/16/2018 [facility] - PATIENT HAS A FOLLOW UP APT WITH DR ABRAMS ON 05/23. - [facility] [facility] NOTATIONS FROM 05/15/18 CLINIC VISIT LISTED UNDER NOTES ON CLAUDIA. 04/18/2018 [facility] - Patient is currently working with Claudette TOBARassistant center manager from [facility]- Contact ) if patient is seen in ED. - Claudette has educated patient on diabetic education, but patient is not willing to follow up with further education. - Patient request pain medications at every PCP visit. - Patient has declined mental health evaluation from [facility] Care Recommendation: - USE EXTREME CAUTION IN GIVING NARCOTICS TO THIS PATIENT. - Avoid Discharge Narcotic prescriptions if at all possible. Please use clinical judgement. Wild[place] VISIT COUNT (12 MO.) 6 PANKAJ La TOTAL 6 NOTE: Visits indicate total known visits. ED/UCC VISIT TRACKING (12 MO.) 10/12/2019 16:05 [facility] [place] TYPE: Emergency COMPLAINT: - HEADACHE, FACIAL SWELLING 09/17/2019 15:52 [facility] [place] TYPE: Emergency COMPLAINT: - PAINFUL URINATION DIAGNOSES: - Personal history of nicotine dependence - Radiographic dye allergy status - Other [facility] (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 - 1 Type 2 diabetes mellitus with hyperglycemia - 1 Type 2 diabetes mellitus without complications - Essential (primary) hypertension - Candidiasis of skin and nail - Latex allergy status - [facility] (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 - Allergy status to narcotic agent status - Unspecified asthma, uncomplicated - Allergy status to analgesic agent status 08/08/2019 16:38 [facility] [place] TYPE: Emergency COMPLAINT: - SKIN PROBLEM/ DIABETIC DIAGNOSES: - Radiographic dye allergy status - 1 Type 2 diabetes mellitus without complications - Allergy status to analgesic agent status - Latex allergy status - Right lower quadrant pain - Cutaneous abscess of abdominal wall - Essential (primary) hypertension - Other long term care pharmacist (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 - 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 - Allergy status to oth drug/meds/biol subst status - Unspecified asthma, uncomplicated - Allergy status to narcotic agent status 06/08/2019 18:40 [facility] [place] TYPE: Emergency COMPLAINT: - CHEST PAIN DIAGNOSES: - 1 Type 2 diabetes mellitus without complications - Allergy status to oth drug/meds/biol subst status - Unspecified asthma, uncomplicated - Chest pain, unspecified - 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 - Other long term care pharmacist (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 - Allergy status to narcotic agent status - Essential (primary) hypertension - Radiographic dye allergy status - Latex allergy status 03/14/2019 13:04 [facility] [place] TYPE: Emergency COMPLAINT: - ABD PAIN DIAGNOSES: - [facility] (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 - Unspecified asthma, uncomplicated - Allergy status to narcotic agent status - Essential (primary) hypertension - Allergy status to oth drug/meds/biol subst status - Latex allergy status - Other chest pain - 1 Type 2 diabetes mellitus without complications - Right upper quadrant pain - Personal history of nicotine dependence - Other [facility] (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 01/18/2019 16:29 [facility] [place] TYPE: Emergency COMPLAINT: - SOB/PAIN RIGHT ARM DIAGNOSES: - Cramp and spasm - Unspecified asthma, uncomplicated - Allergy status to narcotic agent status - Acquired absence of other specified parts of digestive tract - Essential (primary) hypertension - Allergy status to anesthetic agent status - Radiographic dye allergy status - 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
[2019-10-12] MEDS ORDERED: AUGMENTIN 875-1 EACH PO (16:31)
[2019-10-12] MEDS ORDERED: MOTRIN IB200 M1 PO (16:33)
== END 2019-10-12 16:51 | disposition home or self-care (01) ==
LOC: ED 16:05
DX: J32.9 Chronic sinusitis, unspecified (principal); I10 Essential (primary) hypertension; E11.9 Type 2 diabetes mellitus without complications; J45.909 Unspecified asthma, uncomplicated; Z79.899 Other long term (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
CPT/HCPCS: 99283

== ENCOUNTER 2019-12-09 21:48 | Emergency (ER) | payer OTHER ==
[~2019-12-09] VITALS: Ht 165.1 cm; Wt 106.1 kg
--- OUTSIDE RECORDS SUMMARY | ~2019-12-09 | XMS | Encounter Summary ---
Demographics + + + | Address | [address] | | | [place] [address] | + + + | Home Phone | | + + + | Preferred Language | Unknown | + + + | Marital Status | Single | + + + | Yarsani Affiliation | 1041 | + + + | Race | Unknown | + + + | Ethnic Group | Unknown | + + + Author + + + | Author | [facility] | | | and [place] | + + + | Organization | [facility] | | | and [place] | + + + | Address | Unknown | + + + | Phone | Unavailable | + + + Support + + + + + | Name | Relationship | Address | Phone | + + + + + | Uche Nina | ECON | [address] | + | | | | [place] | | | | | [address] | | + + + + + | Pratibha Hester | ECON | Unknown | + | + + + + + | Demian Powell | ECON | Unknown | + | + + + + + Care Team Providers + +------+ + | Care Hide Mill Worker Name | Role | Phone | + +------+ + | Quentin Manriquez PA-C | MARCK | | + +------+ + Reason for Visit +--------+ + | Reason | Comments | +--------+ + | Other | | +--------+ + Encounter Details +--------+ + + + + | Date | Type | Department | Care Team | Description | +--------+ + + + + | 12/19/ | Telephone | [facility] | Sascha Mir, | Other | | 2014 | | NEUROSURGERY [address] | DO [address] | | | | | [address] | [address] [place], [place] | | | | | [place] | [address] | | | | | [address] | | | | | | [phone] | | | +--------+ + + + + Social History + + [...] as of this encounter Plan of Treatment +--------+ + + + + | Date | Type | Specialty | Care Team | Description | +--------+ + + + + | 12/11/ | Virtual | Sleep Medicine | Jasiel Loo | | | 2019 | Office | | MD Michael [address] [place] [address] | | | | Visit | | Ed Lopes | | | | | | [place] [address] | | | | | | [phone] | | | | | | | | +--------+ + + + + documented as of this encounter Visit Diagnoses Not on filedocumented in this encounter"
--- OUTSIDE RECORDS SUMMARY | ~2019-12-09 | XMS | Encounter Summary ---
Demographics + + + | Address | [address] | | | [place] [address] | + + + | Home Phone | | + + + | Preferred Language | Unknown | + + + | Marital Status | Single | + + + | Worship Affiliation | 1041 | + + + | Race | Unknown | + + + | Ethnic Group | Unknown | + + + Author + + + | Author | [facility] | | | and [place] | + + + | Organization | [facility] | | | [...] [place] | | | | | [address] | | + + + + + | Pratibha Hester | ECON | Unknown | + | + + + + + | Demian Powell | ECON | Unknown | + | + + + + + Care Team Providers + +------+ + | Care Industrial Psychology Teacher Name | Role | Phone | + +------+ + | Quentin Manriquez PA-C | MARCK | | + +------+ + Reason for Visit +--------+ + | Reason | Comments | +--------+ + | Other | | +--------+ + Encounter Details +--------+ + + + + | Date | Type | Department | Care Team | Description | +--------+ + + + + | 02/14/ | Telephone | [facility] | Sascha Mir, | Other | | 2014 | | NEUROSURGERY [address] | DO [address] | | | | | [address] | [address] [place], [place] | | | | | [place] | [address] | | | | | [address] | | | | | | [phone] | | | +--------+ + + + [...] 2019 | Office | | MD Michael [address] [place] [address] | | | | Visit | | Ed Lopes | | | | | | [place] [address] | | | | | | [phone] | | | | | | | | +--------+ + + + + documented as of this encounter Visit Diagnoses Not on filedocumented in this encounter"
--- OUTSIDE RECORDS SUMMARY | ~2019-12-09 | XMS | Encounter Summary ---
Demographics + + + | Address | [address] | | | [place] [address] | + + + | Home Phone | | + + + | Preferred Language | Unknown | + + + | Marital Status | Single | + + + | Adventist Affiliation | [id number] | + + + | Race | Unknown | + + + | Ethnic Group | Unknown | + + + Author + + + | Author | [facility] | | | and [place] | + + + | Organization | [facility] | | | and [...] [place] | | | | | [phone] | | + + + + + | Pratibha Hester | ECON | Unknown | + | + + + + + | Demian Powell | ECON | Unknown | + | + + + + + Care Team Providers + +------+ + | Care Store Keeper Name | Role | Phone | + +------+ + | Quentin Manriquez PA-C | MARCK | | + +------+ + Reason for Visit Auth/Cert +--------+--------+ + + + + | Status | Reason | Specialty | Diagnoses / | Referred By | Referred To | | | | | Procedures | Contact | Contact | +--------+--------+ + + + + | Closed | | | Diagnoses | | [facility] | | | | | Acquired | | Surgical [address] | | | | | spondylolist | | [address] | | | | | hesis | | [place], | | | | | Acquired | | [place] [address] | | | | | spondylolist | | Phone: | | | | | hesis | | [phone] | | | | | Procedures | | Fax: | | | | | [place] [facility] | | [phone] | | | | | POST/POSTERO | | | | | | | LATRL/POSTIN | | | | | | | TERBODY | | | | | | | LUMBAR | | | | | | | LAMINECTOMY | | | | | | | PLIF/TLIF | | | | | | | INSTRUMENTAT | | | | | | | ION | | | +--------+--------+ + + + + Encounter Details +--------+ + + + + | Date | Type | Department | Care Team | Description | +--------+ + + + + | 12/12/ | Hospital | [facility] | Sascha Mir, | | | 2015 - | Encounter | MED CTR SURGICAL | DO [address] | | | | | [address] | [address] | | | 12/16/ | | [place] [address] | [id number] | | | 2014 | | [phone] | | | +--------+ + + + [...] + + + | Blood Pressure | 98/67 | 12/16/2014 7:42 AM | | | | | PDT | | + + + + + | Pulse | 89 | 12/16/2014 7:42 AM | | | | | PDT | | + + + + + | Temperature | 36 C (96.8 F) | 12/16/2014 7:42 AM | | | | | PDT | | + + + + + | Respiratory Rate | 18 | 12/16/2014 7:42 AM | | | | | PDT | | + + + + + | Oxygen Saturation | 96% | 12/16/2014 7:42 AM | | | | | PDT | | + + + + + | Inhaled Oxygen | - | - | | | Concentration | | | | + + + + + | Weight | 115.7 kg (255 lb) | 12/12/2014 8:22 AM | | | | | PDT | | + + + + + | Height | 167.6 cm (5' 5.98") | 12/12/2014 8:22 AM | | | | | PDT | | + + + + + | Body Mass Index | 41.18 | 12/12/2014 8:22 AM | | | | | PDT | | + + + + + documented in this encounter Discharge Summaries Amol Triplett PA - 12/16/2014 7:44 AM PDTFormatting of this note might be different f rom the original. DISCHARGE SUMMARY Pt. Name/Age/: Demian Nina 44 y.o. 1970 Date of Admission: 12/12/2014 Date of Discharge: 12/16/2014 Admitting Physician: Sascha Mir DO PCP: Quentin Manriquez Discharging Physician: ANNETTE Gutierrez Primary Discharge Dx: Acquired spondylolisthesis Secondary Discharge Dx: Patient Active Problem List Diagnosis Spondylolisthesis of lumbar region L5-S1 Pars defect of lumbar spine L5-S1 Degenerative disc disease, lumbar L4-5 Radiculopathy of lumbar region L5-S1 Morbid obesity Sacroiliitis Trochanteric bursitis Diabetes mellitus Asthma HIP PAIN, LEFT, CHRONIC Synovial cyst of lumbar facet joint Foraminal stenosis of lumbosacral region Facet arthropathy, lumbosacral Acquired spondylolisthesis Reason for Admission (Brief): Ms. Nina is a 44-year-old woman who presents with signs, s ymptoms, and radiographic evidence of spondylolisthesis L5-S1. MRI and dynamic x-rays of the lumbar spine revealed the pathology. Given her symptoms, the patient decided to proceed wit h transforaminal lumbar interbody fusion L5-S1 Hospital Course, including Complications: On the day of admission the patient was admitted to [facility] and underwent a L5-S1 fusion . Patient was transferred to PACU and then to the neurosurgical floor. In brief, th e hospital stay was uncomplicated, the patient mobilized well with physical therapy and occu pational therapy. However, she is recovering slowly as expected, largely due to body habitus , pain threshold, and motivation limitations. There were no cardiac issues, pulmonary issues , evidence of DVT or infection. Appropriate discharge plans were made in line with her progr ess and mobility and she was ultimately discharged to [facility]. Medications Reconciled upon Discharge are: Discharge Medications New Medications Details diazepam 5 mg tablet Take 1 tablet by mouth every 6 hours as needed. aka: VALIUM docusate sodium 100 MG capsule Take 100 mg by mouth Twice daily as needed for Constipation. aka: COLACE oxyCODONE-acetaminophen 10-325 mg per tablet Take 1-2 tablets by mouth every 4 hours as needed for Pain for up to 10 days. aka: PERCOCET Unchanged Medications Details ALBUTEROL SULFATE IN NEBU; 1-2 puffs every 3-4 hours as needed ASCORBIC ACID PO Take 1 tablet by mouth Daily. CLARITIN 10 MG Caps Generic drug: Loratadine Take by mouth Daily. lisinopril 10 mg tablet Take 10 mg by mouth Daily. aka: PRINIVIL, ZESTRIL ondansetron 4 mg disintegrating tablet Take 4 mg by mouth every 8 hours as needed for Nausea. aka: ZOFRAN ODT SINGULAIR 10 mg tablet Generic drug: montelukast Take 10 mg by mouth nightly. VITAMIN D PO Take 1 tablet by mouth Daily. Discontinued Medications aspirin 81 mg EC tablet HYDROcodone-acetaminophen 10-325 mg per tablet aka: NORCO ibuprofen 600 MG tablet aka: ADVIL,MOTRIN Condition on Discharge: Stable Disposition: Patient was discharged to [facility]. Follow-Up Plans: Follow-up with: Dr. Mir's office in 4 weeks Follow-up with primary care physician as needed. Diet: Resume regular diet Activity: Continue to follow guidelines and precautions as previously discussed. Electronically signed by: Amol Triplett, 12/16/2014 7:45 [facility] documented in this encounter Discharge Instructions Instructions Amol Triplett PA - 12/16/2014Please keep incision clean and dry for the n ext 5 days. After this, you may get the incision wet in the shower but we do not want you t o submerse the incision under water until you see us in our office. Please follow recommend ations regarding your brace as requested. Also, remember your movement restrictions and lif ting restrictions of 5 pounds. If you have any questions, please feel free to call our offi ce. Otherwise, we will see you in one month. documented in this encounter Medications at Time of Discharge + + + +---------+ + + | Medication | Sig | Dispensed | Refills | Start | End Date | | | | | | Date | | + + + +---------+ + + | Loratadine | Take by mouth | | 0 | | | | (CLARITIN) 10 MG | Daily. | | | | | | CAPS | | | | | | + + + +---------+ + + | montelukast | Take 10 mg by mouth | | 0 | | | | (SINGULAIR) 10 mg | nightly. | | | | | | tablet | | | | | | + + + +---------+ + + | ALBUTEROL SULFATE | NEBU; 1-2 puffs | | 0 | 04/21/20 | | | IN | every 3-4 hours as | | | 12 | 7 | | | needed | | | | | + + + +---------+ + + | ASCORBIC ACID PO | Take 1 tablet by | | 0 | | | | | mouth Daily. | | | | 7 | + + + +---------+ + + | Cholecalciferol | Take 1 tablet by | | 0 | | | | (VITAMIN D PO) | mouth Daily. | | | | 7 | + + + +---------+ + + | diazepam (VALIUM) | Take 1 tablet by | 100 | 0 | 12/17/19 | | | 5 mg tablet | mouth every 6 hours | tablet | | 15 | 5 | | | as needed. | | | | | + + + +---------+ + + | docusate sodium | Take 100 mg by mouth | 100 | 3 | 12/17/19 | | | (COLACE) 100 MG | Twice daily as | capsule | | 15 | 5 | | capsule | needed for | | | | | | | Constipation. | | | | | + + + +---------+ + + | lisinopril | Take 2.5 mg by mouth | | 0 | | | | (PRINIVIL, ZESTRIL) | Daily. | | | | 7 | | 10 mg tablet | | | | | | + + + +---------+ + + | ondansetron | Take 4 mg by mouth | | 0 | | | | (ZOFRAN ODT) 4 mg | every 8 hours as | | | | 5 | | disintegrating | needed for Nausea. | | | | | | tablet | | | | | | + + + +---------+ + + | oxyCODONE | Take 1 Tab by mouth | | 0 | 05/08/20 | | | (ROXICODONE) 5 mg | every six hours as | | | 09 | 0 | | tablet | needed. | | | | | + + + +---------+ + + | oxyCODONE | Take 1 tablet by | | 0 | 05/08/20 | | | (ROXICODONE) 5 mg | mouth every 6 hours | | | 09 | 0 | | tablet | as needed. | | | | | + + + +---------+ + + | | Take 1-2 tablets by | 100 | 0 | 12/17/19 | | | oxyCODONE-acetaminop | mouth every 4 hours | tablet | | 15 | 5 | | hen (PERCOCET) | as needed for Pain | | | | | | 10-325 mg per tablet | for up to 10 days. | | | | | + + + +---------+ + + documented as of this encounter Progress Notes Amol Triplett PA - 12/16/2014 7:36 AM PDTFormatting of this note might be different f rom the original. [facility] NEUROSURGERY PROGRESS NOTE Pt. Name/Age/: Demian Nina 44 y.o. 1970 Post operative day 4 SUBJECTIVE: Patient doing well. She is still complaining of left leg discomfort but it is s madelyn and tolerable. She complains of tingling and dysthesias but no numbness. She is also c omplaining of similar left arm symptoms. She has had a BM since surgery. She is reay to go t [facility] in [place]. No further C/C OBJECTIVE: Patient Vitals for the past 24 hrs: BP Temp Temp src Pulse Resp SpO2 12/16/14 0720 - - - 85 20 95 % 12/16/14 0037 103/60 mmHg 35.9 C (96.6 F) Oral 75 20 93 % 12/15/14 1945 110/75 mmHg 37.2 C (99 F) Oral 100 20 94 % 12/15/14 1901 - - - 93 18 94 % 12/15/14 1507 102/57 mmHg 36.6 C (97.9 F) Oral 91 18 96 % 12/15/14 1105 - - - 96 - 95 % I/O last 24 Hours: In: 1020 [P.O.:1020] Out: 951 [Urine:950; Stool:1] Min/Max Temp past 24 hours:Temp Av.6 C (97.8 F) Min: 35.9 C (96.6 F) Max: 3 7.2 C (99 F) General: Alert, oriented, no acute distress Dressing: Clean/Dry/Intact Neurological: normal DRAIN OUTPUT: NA LabsNo results found for this or any previous visit (from the past 24 hour(s)). ASSESSMENT:SP L5-S1 fuison Plan:Yoselin Claudio. DC to [facility] today. See DC summary. Electronically signed by: Amol Triplett, 12/16/2014 7:[address] [facility] Sascha Beck DO - 12/15/2014 9:20 AM PDT Subjective The patient was seen and examined by me today. She complains of of left tingling - improved from numbness, and left leg dysesthesia. Her l egs feel strong. Moderate surgical pain, but tolerable. She would like to go to SNF in [facility] before discharge home. Objective Filed Vitals: 12/15/14 0707 BP: 102/60 Pulse: 84 Temp: 36.8 C (98.2 F) Resp: 18 No results found for this or any previous visit (from the past 24 hour(s)). Level of consciousness: Alert and orientated to person, place, and time. Motor: Moving all extremities well. Sensations: Left arm dysesthesia improved. Left leg dysesthesia unchanged. Incision: Dressing is clean, dry, and intact. Assessment Demian Nina is a 44 y.o. y.o. female s/p TLIF L5-S1 postoperative day # 3. Plan -Neuro improving -Increase diet/activity -PT/OT -Pain control -DVT prophylaxis -DC plan: ready for SNF any time. Eloisa Reed RN - 12/14/2014 9:48 AM PDTJP drain pulled from L flank. Pt tolerated well. Steri strip with large band aid placed. P Sascha Sanchez DO - 12/14/2014 8:54 AM PDTFormatting of this note might be different fr om the original. Subjective The patient was seen and examined by me today. She complains of of left tingling - improved from numbness, and left leg dysesthesia. Her l egs feel strong. Moderate surgical pain, but tolerable. She would like to go to SNF in [facility] before discharge home. Objective Filed Vitals: 12/14/14 0730 BP: 116/72 Pulse: 82 Temp: 35.6 C (96.1 F) Resp: 16 No results found for this or any previous visit (from the past 24 hour(s)). Level of consciousness: Alert and orientated to person, place, and time. Motor: Moving all extremities well. Sensations: Left arm dysesthesia improved. Left leg dysesthesia unchanged. Incision: Dressing is clean, dry, and intact. JENNIFER 12 mL Assessment Demian Nina is a 44 y.o. y.o. female s/p TLIF L5-S1 postoperative day # 2. Plan -Neuro improving -Increase diet/activity -PT/OT -Pain control -DVT prophylaxis -DC plan: ready for SNF tomorrow Sascha Beck DO - 12/13/2014 8:11 AM PDT Subjective The patient was seen and examined by me today. She complains of of left arm numbness, which is improved since last night, and left leg dys esthesia. Her legs feel strong. Moderate surgical pain, but tolerable. Objective Filed Vitals: 12/13/14 0800 BP: 104/53 Pulse: 78 Temp: 36.6 C (97.9 F) Resp: 14 Recent Results (from the past 24 hour(s)) TYPE AND SCREEN Result Value Ref Range ABO A Rh Type Positive Antibody Screen Negative POC GLUCOSE Result Value Ref Range POC Glucose 103 70-150 mg/dL POCT TEST, URINE, QUAL Result Value Ref Range POC Test, Urine Negative POC Specific [place] Internal QC Acceptable Lot Number [id number] Expiration Date POC GLUCOSE Result Value Ref Range POC Glucose 125 70-150 mg/dL Level of consciousness: Alert and orientated to person, place, and time. Motor: Moving all extremities well. Sensations: Left arm and leg dysesthesia. Incision: Dressing is clean, dry, and intact. JENNIFER 51 mL Assessment Demian Nina is a 44 y.o. y.o. female s/p TLIF L5-S1 postoperative day # 1. Plan -Increase diet/activity -PT/OT -Pain control -DVT prophylaxis -DC plan: depends on progress. Likely ready for DC 1-2 days. documented in this en counter Plan of Treatment +--------+ + + + + | Date | Type | Specialty | Care Team | Description | +--------+ + + + + | 12/11/ | Virtual | Sleep Medicine | Jasiel Loo | | | 2019 | Office | | MD Michael [address] | | | | Visit | | Ed [facility] | | | | | | [place] [address] | | | | | | [phone] | | | | | | | | +--------+ + + + + documented as of this encounter Procedures + +--------+ + + + | Procedure Name | Priori | Date/Time | Associated Diagnosis | Comments | | | ty | | | | + +--------+ + + + | XR LUMBAR SPINE 2 OR | STAT | 12/13/2014 | | Results for this | | 3 VW | | 11:10 AM | | procedure are in the | | | | PDT | | results section. | + +--------+ + + + | RESPIRATORY THERAPY | Routin | 12/13/2014 | | | | COMMUNICATION | e | 2:24 AM | | | | | | PDT | | | + +--------+ + + + | POC GLUCOSE | Routin | 12/12/2014 | | Results for this | | | e | 4:08 PM | | procedure are in the | | | | PDT | | results section. | + +--------+ + + + | LAMINECTOMY | | 12/12/2014 | Acquired | | | PLIF/TLIF | | 9:30 AM | spondylolisthesis | | | INSTRUMENTATION | | PDT | | | + +--------+ + + + +---+--------+ | | Case | | | Notes | | | | | | Origin | | | al | | | Schedu | | | ler | | | Commen | | | ts/Not | | | es | | | Sent | | | Over | | | 10/30/ | | | 2014 @ | | | | | | 1327:D | | | RILL, | | | MICROS | | | COPE, | | | METRX | | | EST | | | TIME: | | | 2H | | | O-ARM | | | BIOLOG | | | ICS: | | | INFUSE | | | , BONE | | | CHIPS | | | | +---+--------+ | | | | | Specia | | | l | | | Needs | | | Sriram | | | | | | Dimitris | | | - | | | Sextan | | | t, | | | Capsto | | | ne | +---+--------+ + +--------+ +---+ + | POCT TEST, | Routin | 12/12/2014 | | Results for this | | URINE, QUAL | e | 9:15 AM | | procedure are in the | | | | PDT | | results section. | + +--------+ +---+ + | POC GLUCOSE | Routin | 12/12/2014 | | Results for this | | | e | 9:00 AM | | procedure are in the | | | | PDT | | results section. | + +--------+ +---+ + | TYPE AND SCREEN | Routin | 12/12/2014 | | Results for this | | | e | 8:53 AM | | procedure are in the | | | | PDT | | results section. | + +--------+ +---+ + documented in this encounter Results XR Lumbar Spine 2 or 3 Vw (12/13/2014 11:10 AM PDT) + + | Specimen | + + | | + + + + + | Narrative | Performed At | + + + | XR LUMBAR SPINE 2 OR 3 VW 12/13/2014 11:09 AM HISTORY: Postop. | [facility] | | COMPARISON: 09/16/2014. FINDINGS: There has been interval | | | placement of hardware for posterior fusion from L5 through S1 with | | | interbody hardware at L5-S1. Extensive spondylosis is present of the | | | lower thoracic spine. There is mild spondylosis of the lumbar spine. | | | Bone mineralization is normal. Vertebral body height are preserved | | | with no evidence for compression fractures. Disc height are | | | maintained. Facet joints are intact. Visualized ribs and pelvic | | | osseous structures show no acute findings. Cholecystectomy clips are | | | present. Posterior soft tissue wade are seen. There is a posterior | | | left drainage catheter. IMPRESSION - Interval posterior fusion | | | from L5 through S1. Dictated and Signed by: Jeison Tinoco MD | | | Electronically signed: 12/13/2014 11:44 AM | | + + + + + | Procedure Note | + + | Cedric, Rad Results In - 12/13/2014 11:47 AM PDT XR LUMBAR SPINE 2 OR 3 VW 12/13/2014 | | 11:09 AMHISTORY: Postop.COMPARISON: 09/16/2014.FINDINGS:There has been interval placement | | of hardware for posterior fusion from E7mifubei S1 with interbody hardware at L5-S1. | | Extensive spondylosis is present ofthe lower thoracic spine. There is mild spondylosis | | of the lumbar spine. Bonemineralization is normal. Vertebral body height are preserved | | with no evidencefor compression fractures. Disc height are maintained. Facet joints are | | intact.Visualized ribs and pelvic osseous structures show no acute | | findings.Cholecystectomy clips are present. Posterior soft tissue wade are seen. | | Thereis a posterior left drainage catheter.IMPRESSION -Interval posterior fusion from L5 | | through S1.Dictated and Signed by: Jeison Tinoco MD Electronically signed: 12/13/2014 | | 11:44 AM | |for compression fractures. Disc height are maintained. Facet joints are intact. | |Visualized ribs and pelvic osseous structures show no acute findings. | |Cholecystectomy clips are present. Posterior soft tissue wade are seen. There | |is a posterior left drainage catheter. | | | |IMPRESSION - | |Interval posterior fusion from L5 through S1. | | | |Dictated and Signed by: Jeison Tinoco MD | | Electronically signed: 12/13/2014 11:44 AM | + + + +---------+ + + | Performing | Address | City/State/[facility] | Phone Number | | Organization | | | | + +---------+ + + | [facility] | | | | + +---------+ + + POC Glucose (12/12/2014 4:08 PM PDT) + +-------+ + + + | Component | Value | Ref Range | Performed | Pathologist | | | | | At | Signature | + +-------+ + + + | Glucose, | 125 | 70 - 150 mg/dL | [facility] | | | [facility] | | | [facility] | | | | | | MEDICAL | | | | | | CENTER - | | | | | | LABORATORY | | + +-------+ + + + + + | Specimen | + + | Blood | + + + + + + + | Performing | Address | City/State/Zipcode | Phone Number | | Organization | | | | + + + + + | [facility] | [address] | [place] | [phone] | | [facility] | | [address] | | | - LABORATORY | | | | + + + + + POCT Test, Urine, Qual (12/12/2014 9:15 AM PDT) + + + + + + | Component | Value | Ref Range | Performed | Pathologist | | | | | At | Signature | + + + + + + | | Negative | | | | | Test, | | | | | | Urine, POC | | | | | + + + + + + | Specific | | | | | | [place], | | | | | | POC | | | | | + + + + + + | Internal QC | Acceptable | | | | + + + + + + | Lot Number | [id number] | | | | + + + + + + | Expiration | | | | | | Date | | | | | + + + + + + + + | Specimen | + + | Urine specimen | | (specimen) | + + POC Glucose (12/12/2014 9:00 AM PDT) + +-------+ + + + | Component | Value | Ref Range | Performed | Pathologist | | | | | At | Signature | + +-------+ + + + | Glucose, | 103 | 70 - 150 mg/dL | [facility] | [facility] | [facility] | | | | | | [facility] | | | | | | CENTER - | | | | | | LABORATORY | | + +-------+ + + + + + | Specimen | + + | Blood | + + + + + + + | Performing | Address | City/State/Zipcode | Phone Number | | Organization | | | | + + + + + | [facility] | [address] | [place] | [phone] | | [facility] | | [address] | | | - LABORATORY | | | | + + + + + Type and Screen (12/12/2014 8:53 AM PDT) + + + + + + | Component | Value | Ref Range | Performed | Pathologist | | | | | At | Signature | + + + + + + | ABO | A | | [facility] | | | | | | [facility] | | | | | | MEDICAL | | | | | | CENTER - | | | | | | BLOOD BANK | | + + + + + + | Rh Type | Positive | | [facility] | | | | | [facility] | | | | | | MEDICAL | | | | | | CENTER - | | | | | | BLOOD BANK | | + + + + + + | Antibody | Negative | | [facility] | | | Screen | | | [facility] | | | | | | MEDICAL | | | | | | CENTER - | | | | | | BLOOD BANK | | + + + + + + + + | Specimen | + + | Blood specimen | | (specimen) | + + + + + + + | Performing | Address | City/State/Zipcode | Phone Number | | Organization | | | | + + + + + | [facility] | [address] | [place], [place] | | | [facility] | | [address] | | | - BLOOD BANK | | | | + + + + + documented in this encounter Visit Diagnoses + + | Diagnosis | + + | Acquired spondylolisthesis - Primary | + + documented in this encounter Admitting Diagnoses + + | Diagnosis | + + | Acquired spondylolisthesis | + + documented in this encounter Administered Medications + +--------+ +---------+------+------+ | Medication Order | MAR | Action | Dose | Rate | Site | | | Action | Date | | | | + +--------+ +---------+------+------+ | albuterol 90 mcg/puff inhaler | Given | 12/17/19 | 2 puffs | | | | 1-2 puff 1-2 puff, Inhalation, | | 15 7:20 | | | | | RT EVERY 4 HOURS PRN, Shortness | | AM PDT | | | | | of Breath, Starting 12/13/14 at | | | | | | | 0935, Shake well. Use with | | | | | | | spacer., | | | | | | + +--------+ +---------+------+------+ +-------+ +---------+---+---+ | Given | 12/14/19 | 2 puffs | | | | | 15 7:31 | | | | | | PM PDT | | | | +-------+ +---------+---+---+ | Given | 12/14/19 | 2 puffs | | | | | 15 11:49 | | | | | | AM PDT | | | | +-------+ +---------+---+---+ +---+---+ | | | +---+---+ + +---------+ +-----+-------+---+ | ceFAZolin (ANCEF, KEFZOL) 2 g | New Bag | 12/13/19 | 2 g | 100 | | | in sodium chloride 0.9% 50 mL | | 15 11:19 | | mL/hr | | | IVPB 2 g, Intravenous, | | PM PDT | | | | | Administer over 30 Minutes, EVERY | | | | | | | 8 HOURS INTERVAL, First dose on | | | | | | | [facility] 12/12/14 at 1500, For 2 doses, | | | | | | | Start 8 hours after previous | | | | | | | dose. Last dose to be given | | | | | | | within 24 hours of surgery end | | | | | | | time., Post-op/Phase II | | | | | | + +---------+ +-----+-------+---+ +---------+ +-----+-------+---+ | New Bag | 12/13/19 | 2 g | 100 | | | | 15 3:24 | | mL/hr | | | | PM PDT | | | | +---------+ +-----+-------+---+ +---+---+ | | | +---+---+ + +-------+ +------+---+---+ | dexamethasone (DECADRON) 4 | Given | 12/17/19 | 4 mg | | | | mg/mL injection 4 mg 4 mg, | | 15 6:09 | | | | | Intravenous, EVERY 6 HOURS (4 | | AM PDT | | | | | times per day), First dose on Sun | | | | | | | 12/15/14 at 1200, For 4 doses | | | | | | + +-------+ +------+---+---+ +-------+ +------+---+---+ | Given | 12/17/19 | 4 mg | | | | | 15 12:49 | | | | | | AM PDT | | | | +-------+ +------+---+---+ | Given | 12/16/19 | 4 mg | | | | | 15 6:41 | | | | | | PM PDT | | | | +-------+ +------+---+---+ +---+---+ | | | +---+---+ + +-------+ +------+---+---+ | diazepam (VALIUM) injection | Given | 12/14/19 | 5 mg | | | | 2.5-5 mg 2.5-5 mg, Intravenous, | | 15 5:32 | | | | | EVERY 6 HOURS PRN, Muscle spasms, | | PM PDT | | | | | Starting [place]athe 12/12/14 at 1433, | | | | | | | Post-op/Phase II | | | | | | + +-------+ +------+---+---+ +---+---+ | | | +---+---+ + +-------+ +------+---+---+ | diazepam (VALIUM) tablet 5 mg | Given | 12/17/19 | 5 mg | | | | 5 mg, Oral, EVERY 6 HOURS PRN, | | 15 6:40 | | | | | Muscle spasms, Starting [place] | | AM PDT | | | | | 12/12/14 at 1433, Post-op/Phase II | | | | | | + +-------+ +------+---+---+ +-------+ +------+---+---+ | Given | 12/16/19 | 5 mg | | | | | 15 3:00 | | | | | | PM PDT | | | | +-------+ +------+---+---+ | Given | 12/16/19 | 5 mg | | | | | 15 8:36 | | | | | | AM PDT | | | | +-------+ +------+---+---+ +---+---+ | | | +---+---+ + +-------+ +--------+---+---+ | docusate sodium (COLACE) | Given | 12/16/19 | 100 mg | | | | capsule 100 mg 100 mg, Oral, 2 | | 15 8:02 | | | | | TIMES DAILY PRN, Constipation, | | PM PDT | | | | | Starting [facility] 12/12/14 at 1433, | | | | | | | First line agent for | | | | | | | constipation, Post-op/Phase II | | | | | | + +-------+ +--------+---+---+ +-------+ +--------+---+---+ | Given | 12/15/19 | 100 mg | | | | | 15 7:52 | | | | | | PM PDT | | | | +-------+ +--------+---+---+ +---+---+ | | | +---+---+ + +-------+ +-------+---+---+ | famotidine (PEPCID) tablet 20 | Given | 12/17/19 | 20 mg | | | | mg 20 mg, Oral, 2 TIMES DAILY, | | 15 9:27 | | | | | First dose on Tue12/12/14 at 2100, | | AM PDT | | | | | Post-op/Phase II | | | | | | + +-------+ +-------+---+---+ +-------+ +-------+---+---+ | Given | 12/16/19 | 20 mg | | | | | 15 8:02 | | | | | | PM PDT | | | | +-------+ +-------+---+---+ | Given | 12/16/19 | 20 mg | | | | | 15 8:36 | | | | | | AM PDT | | | | +-------+ +-------+---+---+ +---+---+ | | | +---+---+ + +-------+ +--------+---+---+ | fentaNYL injection 25-50 mcg | Given | 12/13/19 | 25 mcg | | | | 25-50 mcg, Intravenous, EVERY 2 | | 15 5:24 | | | | | HOURS PRN, Pain, Starting Kathe | | PM PDT | | | | | 12/12/14 at 1455 | | | | | | + +-------+ +--------+---+---+ +-------+ +--------+---+---+ | Given | 12/13/19 | 25 mcg | | | | | 15 3:38 | | | | | | PM PDT | | | | +-------+ +--------+---+---+ | Given | 12/13/19 | 25 mcg | | | | | 15 3:21 | | | | | | PM PDT | | | | +-------+ +--------+---+---+ +---+---+ | | | +---+---+ + +-------+ +--------+---+---+ | gabapentin (NEURONTIN) capsule | Given | 12/16/19 | 300 mg | | | | 300 mg 300 mg, Oral, 3 TIMES | | 15 8:36 | | | | | DAILY, First dose on 12/14/14 | | AM PDT | | | | | at 0915 | | | | | | + +-------+ +--------+---+---+ +-------+ +--------+---+---+ | Given | 12/15/19 | 300 mg | | | | | 15 7:52 | | | | | | PM PDT | | | | +-------+ +--------+---+---+ | Given | 12/15/19 | 300 mg | | | | | 15 3:15 | | | | | | PM PDT | | | | +-------+ +--------+---+---+ +---+---+ | | | +---+---+ + +-------+ +--------+---+---+ | gabapentin (NEURONTIN) capsule | Given | 12/17/19 | 600 mg | | | | 600 mg 600 mg, Oral, 3 TIMES | | 15 9:27 | | | | | DAILY, First dose (after last | | AM PDT | | | | | modification) on 12/15/14 at | | | | | | | 1400 | | | | | | + +-------+ +--------+---+---+ +-------+ +--------+---+---+ | Given | 12/16/19 | 600 mg | | | | | 15 8:02 | | | | | | PM PDT | | | | +-------+ +--------+---+---+ | Given | 12/16/19 | 600 mg | | | | | 15 3:04 | | | | | | PM PDT | | | | +-------+ +--------+---+---+ +---+---+ | | | +---+---+ + +-------+ +---------+---+---+ | HYDROcodone-acetaminophen | Given | 12/14/19 | 2 | | | | (NORCO) 10-325 mg per tablet 1-2 | | 15 5:08 | tablets | | | | tablet 1-2 tablet, Oral, EVERY 4 | | PM PDT | | | | | HOURS PRN, Pain, Starting Kathe | | | | | | | 12/12/14 at 1433, If ineffective or | | | | | | | not tolerated use Oxycodone if | | | | | | | ordered., Post-op/Phase II | | | | | | + +-------+ +---------+---+---+ +-------+ + +---+---+ | Given | 12/14/19 | 1 tablet | | | | | 15 10:46 | | | | | | AM PDT | | | | +-------+ + +---+---+ | Given | 12/14/19 | 1 tablet | | | | | 15 9:00 | | | | | | AM PDT | | | | +-------+ + +---+---+ +---+---+ | | | +---+---+ + +-------+ +-------+---+---+ | lisinopril (PRINIVIL, ZESTRIL) | Given | 12/16/19 | 10 mg | | | | tablet 10 mg 10 mg, Oral, DAILY, | | 15 8:36 | | | | | First dose on Tue12/12/14 at | | AM PDT | | | | | 1500, Post-op/Phase II | | | | | | + +-------+ +-------+---+---+ +-------+ +-------+---+---+ | Given | 12/15/19 | 10 mg | | | | | 15 8:36 | | | | | | AM PDT | | | | +-------+ +-------+---+---+ | Given | 12/14/19 | 10 mg | | | | | 15 9:00 | | | | | | AM PDT | | | | +-------+ +-------+---+---+ +---+---+ | | | +---+---+ + +---------+ +--------+--------+---+ | methocarbamol (ROBAXIN) 750 mg | New Bag | 12/14/19 | 750 mg | 143.3 | | | in sodium chloride 0.9% 100 mL | | 15 5:06 | | mL/hr | | | IVPB 750 mg, Intravenous, | | AM PDT | | | | | Administer over 45 Minutes, EVERY | | | | | | | 8 HOURS INTERVAL, First dose on | | | | | | | [facility] 12/12/14 at 1300, For 3 doses, | | | | | | | Post-op/Phase II | | | | | | + +---------+ +--------+--------+---+ +---------+ +--------+--------+---+ | New Bag | 12/13/19 | 750 mg | 143.3 | | | | 15 9:47 | | mL/hr | | | | PM PDT | | | | +---------+ +--------+--------+---+ | New Bag | 12/13/19 | 750 mg | 143.3 | | | | 15 1:04 | | mL/hr | | | | PM PDT | | | | +---------+ +--------+--------+---+ +---+---+ | | | +---+---+ + +-------+ +--------+---+---+ | methocarbamol (ROBAXIN) tablet | Given | 12/17/19 | 750 mg | | | | 750 mg 750 mg, Oral, EVERY 6 | | 15 12:01 | | | | | HOURS PRN, Muscle spasms, | | PM PDT | | | | | Starting Kathe 12/12/14 at 1433, | | | | | | | Post-op/Phase II | | | | | | + +-------+ +--------+---+---+ +-------+ +--------+---+---+ | Given | 12/16/19 | 750 mg | | | | | 15 11:11 | | | | | | AM PDT | | | | +-------+ +--------+---+---+ | Given | 12/16/19 | 750 mg | | | | | 15 12:20 | | | | | | AM PDT | | | | +-------+ +--------+---+---+ +---+---+ | | | +---+---+ + +-------+ +-------+---+---+ | metoclopramide (REGLAN) 5 mg/mL | Given | 12/13/19 | 10 mg | | | | injection 10 mg 10 mg, | | 15 1:28 | | | | | Intravenous, ONCE, Tue12/12/14 at | | PM PDT | | | | | 1230, For 1 dose, Recovery/Phase | | | | | | | I | | | | | | + +-------+ +-------+---+---+ +---+---+ | | | +---+---+ + +-------+ +-------+---+---+ | montelukast (SINGULAIR) tablet | Given | 12/16/19 | 10 mg | | | | 10 mg 10 mg, Oral, NIGHTLY, | | 15 8:02 | | | | | First dose on Tue12/12/14 at 2100, | | PM PDT | | | | | Post-op/Phase II | | | | | | + +-------+ +-------+---+---+ +-------+ +-------+---+---+ | Given | 12/15/19 | 10 mg | | | | | 15 7:51 | | | | | | PM PDT | | | | +-------+ +-------+---+---+ | Given | 12/14/19 | 10 mg | | | | | 15 9:15 | | | | | | PM PDT | | | | +-------+ +-------+---+---+ +---+---+ | | | +---+---+ + +-------+ +------+---+---+ | ondansetron (ZOFRAN ODT) | Given | 12/17/19 | 4 mg | | | | disintegrating tablet 4 mg 4 mg, | | 15 9:27 | | | | | Oral, EVERY 6 HOURS PRN, Nausea, | | AM PDT | | | | | Vomiting, Starting Kathe 12/12/14 at | | | | | | | 1433, First line agent, | | | | | | | Post-op/Phase II | | | | | | + +-------+ +------+---+---+ +---+---+ | | | +---+---+ + +-------+ +------+---+---+ | ondansetron (ZOFRAN) injection | Given | 12/13/19 | 4 mg | | | | 4 mg 4 mg, Intravenous, ONCE | | 15 1:09 | | | | | PRN, Nausea, Starting Kathe 12/12/14 | | PM PDT | | | | | at 1212, For 1 dose, | | | | | | | Recovery/Phase I | | | | | | + +-------+ +------+---+---+ +---+---+ | | | +---+---+ + +-------+ +------+---+---+ | ondansetron (ZOFRAN) injection | Given | 12/15/19 | 4 mg | | | | 4 mg 4 mg, Intravenous, EVERY 6 | | 15 7:51 | | | | | HOURS PRN, Nausea, Vomiting, | | PM PDT | | | | | Starting Kathe 12/12/14 at 1433, | | | | | | | First line agent Use PO option | | | | | | | unless NPO status or unable to | | | | | | | tolerate., Post-op/Phase II | | | | | | + +-------+ +------+---+---+ +-------+ +------+---+---+ | Given | 12/14/19 | 4 mg | | | | | 15 5:32 | | | | | | PM PDT | | | | +-------+ +------+---+---+ +---+---+ | | | +---+---+ + +-------+ +---------+---+---+ | oxyCODONE-acetaminophen | Given | 12/17/19 | 2 | | | | (PERCOCET) 10-325 mg per tablet | | 15 11:52 | tablets | | | | 1-2 tablet 1-2 tablet, Oral, | | AM PDT | | | | | EVERY 4 HOURS PRN, Pain, Starting | | | | | | | 12/14/14 at 0858 | | | | | | + +-------+ +---------+---+---+ +-------+ + +---+---+ | Given | 12/17/19 | 1 tablet | | | | | 15 6:40 | | | | | | AM PDT | | | | +-------+ + +---+---+ | Given | 12/16/19 | 1 tablet | | | | | 15 11:11 | | | | | | AM PDT | | | | +-------+ + +---+---+ +---+---+ | | | +---+---+ + +-------+ +---------+---+---+ | oxyCODONE-acetaminophen | Given | 12/15/19 | 2 | | | | (PERCOCET) 7.5-325 mg per tablet | | 15 8:36 | tablets | | | | 1-2 tablet 1-2 tablet, Oral, | | AM PDT | | | | | EVERY 4 HOURS PRN, Pain, Starting | | | | | | | 12/13/14 at 2047 | | | | | | + +-------+ +---------+---+---+ +-------+ +---------+---+---+ | Given | 12/14/19 | 2 | | | | | 15 9:15 | tablets | | | | | PM PDT | | | | +-------+ +---------+---+---+ +---+---+ | | | +---+---+ + +-------+ +--------+---+---+ | senna (SENOKOT) tablet 8.6 mg | Given | 12/16/19 | 8.6 mg | | | | 8.6 mg, Oral, 2 TIMES DAILY PRN, | | 15 8:02 | | | | | Constipation, Starting Kathe 12/12/14 | | PM PDT | | | | | at 1433, If docusate ineffective | | | | | | | or not ordered, Post-op/Phase II | | | | | | + +-------+ +--------+---+---+ +-------+ +--------+---+---+ | Given | 12/15/19 | 8.6 mg | | | | | 15 7:52 | | | | | | PM PDT | | | | +-------+ +--------+---+---+ +---+---+ | | | +---+---+ + +---------+ +---+-------+---+ | sodium chloride 0.9% (NS) | New Bag | 12/13/19 | | 100 | | | infusion at 100 mL/hr, | | 15 9:10 | | mL/hr | | | Intravenous, CONTINUOUS, Starting | | AM PDT | | | | | Kathe 12/12/14 at 0845, Pre-op | | | | | | + +---------+ +---+-------+---+ +---+---+ | | | +---+---+ + +---------+ +--------+ +---+ | sodium chloride 0.9% (NS) | New Bag | 12/14/19 | 50 mLs | 50 mL/hr | | | infusion at 100 mL/hr, | | 15 5:12 | | | | | Intravenous, CONTINUOUS, Starting | | AM PDT | | | | | Kathe 12/12/14 at 1500, | | | | | | | Post-op/Phase II | | | | | | + +---------+ +--------+ +---+ + + +--------+ +---+ | Rate/Dose Change | 12/14/19 | 50 mLs | 50 mL/hr | | | | 15 1:00 | | | | | | AM PDT | | | | + + +--------+ +---+ | New Bag | 12/13/19 | | 100 | | | | 15 3:24 | | mL/hr | | | | PM PDT | | | | + + +--------+ +---+ +---+---+ | | | +---+---+ documented in this encounter
--- OUTSIDE RECORDS SUMMARY | ~2019-12-09 | XMS | Encounter Summary ---
Demographics + + + | Address | [address] | | | [place] [address] | + + + | Home Phone | | + + + | Preferred Language | Unknown | + + + | Marital Status | Single | + + + | Islam Affiliation | 1041 | + + + | Race | Unknown | + + + | Ethnic Group | Unknown | + + + Author + + + | Author | [facility] | | | and [place] | + + + | Organization | [facility] | | | and [place] | + + + | Address | Unknown | + + + | Phone | Unavailable | + + + Support + + + + + | Name | Relationship | Address | Phone | + + + + + | Uche Turcios | ECON | [address] | + | | | | [place] | | | | | [address] | | + + + + + | Pratibha Hester | ECON | Unknown | + | + + + + + | Ana Maria Powell | ECON | Unknown | + | + + + + + Care Team Providers + +------+ + | Care Edger Hand Name | Role | Phone | + +------+ + | Derick Mclaughlin PA-C | PCP | | + +------+ + Reason for Referral Diagnostic/Screening (Routine) +--------+--------+ + + + + | Status | Reason | Specialty | Diagnoses / | Referred By | Referred To | | | | | Procedures | Contact | Contact | +--------+--------+ + + + + | Closed | | Radiology | Diagnoses | [place], | [facility] | | | | | Back pain | Denilson F, | Imaging [address] | | | | | Procedures | MD [address] | | | | | MRI Lumbar | [address] | [address] [facility] | | | | | Spine wo | [place], | [place] | | | | | Contrast | [place] [address] | [address] | | | | | | Phone: | Phone: | | | | | | [phone] | | | | | | | [phone] Fax: | Fax: | | | | | | | | | | | | | [phone] | | +--------+--------+ + + + + Encounter Details +--------+ + + + + | Date | Type | Department | Care Team | Description | +--------+ + + + + | 08/23/ | Orders Only | [facility] | Denilsno Jorge | Back pain (Primary | | 2012 | | NEUROSURGERY [address] | F, MD [address] | Dx) | | | | [address] | [place] | | | | | [place] | [address] | | | | | [address] | [phone] | | | | | [phone] | | | +--------+ + + + [...] 2019 | Office | | MD Michael [address] [place] [address] | | | | Visit | | [facility] | | | | | | [place] [address] | | | | | | [phone] | | | | | | | | +--------+ + + + + documented as of this encounter Results MRI Lumbar Spine wo Contrast (09/08/2012 12:34 PM PST) + + | Specimen | + + | | + + + + + | Narrative | Performed At | + + + | [facility] Diagnostic Imaging | [facility] | | Department [address] [facility] [place] | [facility] | | [ rep ct [address]] [ rep ct [facility] | | st zip] Signed | - IMAGING | | | | | Patient Name: ANA MARIA TURCIOS Physician: | | | ARRE.01 : 1970 Age: 42 Sex: F Unit #: [id number] | | | Exam Date: 09/08/12 Location: [facility] | | | Report #: [id number] Page: | | | %(RAD)RES..mtdd.print.filter("pg") of %(RAD) | | | RES..mtdd.print.filter("tpg") | | | | | | Accession Number: [id number] | | | UNENHANCED MRI LUMBAR SPINE, 09/08/2012 CLINICAL HISTORY: | | | BACK PAIN. COMPARISON: Lumbar radiographs 08/31/2011, | | | lumbar MRI 12/03/2009. TECHNIQUE: The following 3T MR | | | sequences of the lumbar spine were obtained: 1. Axial and | | | sagittal T1. 2. Axial, sagittal and coronal T2. 3. | | | Sagittal STIR. FINDINGS: Five nonrib-bearing | | | lumbar-type vertebrae are again visible on the coronal sequence. | | | Marrow signal is largely normal for age. Bilateral L5 spondylolysis | | | is noted. Lumbar vertebral height is maintained. The conus | | | medullaris is unremarkable, terminating at T12. Linear high signal | | | dependently in the thecal sac in the upper to mid lumbar region is | | | consistent with fatty infiltration of the filum terminale. There | | | is a small triangular-shaped collection of fluid in the dorsal midline | | | subcutaneous tissues, extending from L1 through L3 and measuring up | | | to 2 cm in width. This is similar in appearance to the previous | | | study from 2010. The imaged left ovary contains multiple cysts which | | | measure at least 3.4 cm in dimension. Several small cysts are | | | also visible in the imaged right adnexal region. There is trace | | | free pelvic fluid. There is a small posterior disk | | | protrusion at T10-11, without significant central canal or neural | | | foraminal stenosis appreciated on provided sagittal images through the | | | region. The T11-12, T12-L1 and L1-2 levels demonstrate | | | anterolateral vertebral spondylosis, without central canal or neural | | | foraminal stenosis as visualized on provided sagittal images through | | | the region. The L2-3 and L3-4 levels demonstrate facet | | | joint effusions, without significant disk pathology or central canal | | | or neural foraminal stenosis. A minimal posterior disk | | | bulge and mild T1/T2 endplate hyperintensity consistent with Modic | | | type 2 degeneration persist at L4-5, combining with moderate | | | ligamentous and facet hypertrophy to mildly narrow the neural | | | foramina to a similar degree. Bilateral facet joint effusions | | | persist. Moderate disk space narrowing, high-signal | | | annular tear and T2/STIR endplate hyperintensity consistent with | | | Modic type I degeneration are present at L5-S1 and have slightly | | | progressed in the interim. Approximately 4 mm anterolisthesis | | | persists, and again combines with a generalized posterior disk bulge | | | and moderate ligamentous and facet hypertrophy to severely narrow the | | | neural foramina to a slightly greater degree. There is deformity | | | of the exiting L5 nerve roots within the foramina. Fluid is | | | visible within the L5 nerve root sheaths distal to their foramina. | | | IMPRESSION: 1. 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 FLUID IS | | | VISIBLE WITHIN THE L5 NERVE ROOT SHEATHS DISTAL TO THE FORAMINAL | | | LEVEL. 2. EARLY DEGENERATIVE DISK DISEASE AT L4-5, | | | WITHOUT SIGNIFICANT CENTRAL CANAL OR NEURAL FORAMINAL STENOSIS. | | | 3. MULTILEVEL FACET ARTHROPATHY. 4. | | | INCOMPLETELY IMAGED LEFT OVARIAN CYSTS MEASURING UP TO AT LEAST 3.5 | | | CM, WITH A SMALL VOLUME OF FREE PELVIC FLUID. CONSIDER FOLLOWUP | | | SONOGRAPHY FOR FURTHER CHARACTERIZATION. 5. SIMILAR | | | TRIANGULAR-SHAPED FLUID COLLECTION IN THE DORSAL MIDLINE SUBCUTANEOUS | | | TISSUES OF THE UPPER TO MID LUMBAR REGION, OF DOUBTFUL SIGNIFICANCE. | | | Dictated Date/Time: 09/08/2012 12:34 Transcribed | | | Date/Time: 09/08/2012 12:56 [facility]: | | | <<Signature on File>> | | | Jayden Wyatt | | | MD Rush09/09/12 [id number] <Electronically signed by Jayden Beverly MD> | | | Jayden Beverly MD 09/08/12 [id number] [facility]: | | | YaBeammedx Urkyjggnzpthd56/01/13 1256 Denilson Jorge, | | | MD | | + + + + + + + + | Performing | Address | City/State/Zipcode | Phone Number | | Organization | | | | + + + + + | [facility] | [address] | [place] | [phone] | | [facility] | | [address] | | | - IMAGING | | | | + + + + + documented in this encounter Visit Diagnoses + + | Diagnosis | + + | Back pain - Primary Backache, unspecified | + + documented in this encounter
--- OUTSIDE RECORDS SUMMARY | ~2019-12-09 | XMS | Encounter Summary ---
Demographics + + + | Address | [address] | | | [place] [address] | + + + | Home Phone | | + + + | Preferred Language | Unknown | + + + | Marital Status | Single | + + + | Spiritism Affiliation | 1041 | + + + | Race | Unknown | + + + | Ethnic Group | Unknown | + + + Author + + + | Author | [facility] | | | and [place] | + + + | Organization | [facility] | | | [...] [place] | | | | | [address] | | + + + + + | Pratibha Hester | ECON | Unknown | + | + + + + + | Demian Powell | ECON | Unknown | + | + + + + + Care Team Providers + +------+ + | Care Regional Sales Director Name | Role | Phone | + +------+ + | Gracie Lewis PA-C | PCP | | + +------+ + Encounter Details +--------+ + + + + | Date | Type | Department | Care Team | Description | +--------+ + + + + | 09/26/ | Telephone | [facility] | Denilson Jorge | | | 2012 | | NEUROSURGERY [address] | MD Denice [address] | | | | | [address] | St [place], [place] | | | | | [place], [place] | [address] | | | | | [address] | [phone] | | | | [phone] | | | +--------+ + + + [...] 2019 | Office | | MD Michael [address] [place] [address] | | | | Visit | | [place] | | | | | | [place] [address] | | | | | | [phone] | | | | | | | | +--------+ + + + + documented as of this encounter Visit Diagnoses Not on filedocumented in this encounter"
--- OUTSIDE RECORDS SUMMARY | ~2019-12-09 | XMS | Encounter Summary ---
Demographics + + + | Address | [address] | | | [place] [address] | + + + | Home Phone | | + + + | Preferred Language | Unknown | + + + | Marital Status | Single | + + + | Quaker Affiliation | 1041 | + + + | Race | Unknown | + + + | Ethnic Group | Unknown | + + + Author + + + | Author | [facility] | | | and [place] | + + + | Organization | [facility] | | [...] [place] | | | | | [address] | | + + + + + | Pratibha Hester | ECON | Unknown | + | + + + + + | Demian Powell | ECON | Unknown | + | + + + + + Care Team Providers + +------+ + | Care Lion Trainer Name | Role | Phone | + +------+ + | Quentin Manriquez PA-C | MARCK | | + +------+ + Encounter Details +--------+ + + + + | Date | Type | Department | Care Team | Description | +--------+ + + + + | 12/03/ | Orders Only | [facility] | Sascha Mir, | Status post lumbar | | 2015 | | NEUROSURGERY [address] | DO [address] | spinal fusion | | | | [address] | [address] [place], [place] | (Primary Dx) | | | | [place], [place] | [id number] | | | | | [address] | | | | | | [phone] | | | +--------+ + + + [...] +---------+ + | Yes | | | rare use | + + +---------+ + + + [...] | Office | | MD Michael [address] | | | | Visit | | [place] | | | | | | [place] [address] | | | | | | [phone] | | | | | | | | +--------+ + + + + documented as of this encounter Results XR Lumbar Spine 2 or 3 Vw (01/15/2015 9:29 AM PDT) + + | Specimen | + + | | + + + + + | Narrative | Performed At | + + + | TWO VIEWS LUMBAR SPINE 01/15/2015 9:29 AM CLINICAL HISTORY: S/P | [facility] | | LUMBAR FUSION COMPARISON: LUMBAR RADIOGRAPHS DECEMBER 13 AND SEPTEMBER 26 | [facility] | | FINDINGS: Five non rib-bearing, lumbar type vertebrae are | [facility] | | visible. Interbody and posterior nayan and pedicle screw fusion | - IMAGING | | hardware persists at L5-S1 and appears intact and stable in position. | | | Lumbar vertebral height and alignment are maintained, without | | | evident fracture or spondylolisthesis. There is lower thoracic | | | vertebral spondylosis. The sacroiliac joints and imaged sacrum, bony | | | pelvis and lower ribs are unremarkable. Surgical clips again | | | project at the level of the gallbladder fossa. There is moderate | | | stool within the imaged colon. IMPRESSION - 1. STABLE | | | CHANGES OF OPERATIVE FUSION AT L5-S1. 2. MODERATE COLONIC STOOL. | | | Dictated and Signed by: Jayden Beverly MD Electronically | | | signed: 01/15/2015 10:58 AM | | + + + + + | Procedure Note | + + | Cedric, Rad Results In - 01/15/2015 11:02 AM PDT TWO VIEWS LUMBAR SPINE 01/15/2015 9:29 | | AMCLINICAL HISTORY: S/P LUMBAR FUSIONCOMPARISON: LUMBAR RADIOGRAPHS DECEMBER 13 AND SEPTEMBER | | 19FINDINGS: Five non rib-bearing, lumbar type vertebrae are visible. Interbody | | andposterior nayan and pedicle screw fusion hardware persists at L5-S1 and appearsintact | | and stable in position. Lumbar vertebral height and alignment aremaintained, without | | evident fracture or spondylolisthesis. There is lowerthoracic vertebral spondylosis. | | The sacroiliac joints and imaged sacrum, bonypelvis and lower ribs are unremarkable. | | Surgical clips again project at thelevel of the gallbladder fossa. There is moderate | | stool within the imagedcolon.IMPRESSION -1. STABLE CHANGES OF OPERATIVE FUSION AT | | L5-S1.2. MODERATE COLONIC STOOL.Dictated and Signed by: Jayden Beverly MD Electronically | | signed: 01/15/2015 10:58 AM | |pelvis and lower ribs are unremarkable. Surgical clips again project at the | |level of the gallbladder fossa. There is moderate stool within the imaged | |colon. | | | |IMPRESSION - | | | |1. STABLE CHANGES OF OPERATIVE FUSION AT L5-S1. | | | |2. MODERATE COLONIC STOOL. | | | |Dictated and Signed by: Jayden Beverly MD | | Electronically signed: 01/15/2015 10:58 AM | + + + + + + + | Performing | Address | City/State/Zipcode | Phone Number | | Organization | | | | + + + + + | [facility] | [address] | [place] | [phone] | | [facility] | | [address] | | | - IMAGING | | | | + + + + + documented in this encounter Visit Diagnoses + + | Diagnosis | + + | Status post lumbar spinal fusion - Primary Arthrodesis status | + + documented in this encounter"
--- OUTSIDE RECORDS SUMMARY | ~2019-12-09 | XMS | Encounter Summary ---
Demographics + + + | Address | [address] | | | [place] [address] | + + + | Home Phone | | + + + | Preferred Language | Unknown | + + + | Marital Status | Single | + + + | Advent Affiliation | 1041 | + + + | Race | Unknown | + + + | Ethnic Group | Unknown | + + + Author + + + | Author | [facility] | | | and [place] | + + + | Organization | [facility] | | [...] [place] | | | | | [address] | | + + + + + | Pratibha Hester | ECON | Unknown | + | + + + + + | Demian Powell | ECON | Unknown | + | + + + + + Care Team Providers + +------+ + | Care Vending Supervisor Name | Role | Phone | + +------+ + | Gracie Lewis PA-C | PCP | | + +------+ + Encounter Details +--------+ + + + + | Date | Type | Department | Care Team | Description | +--------+ + + + + | 09/26/ | Telephone | [facility] | Denilson Jorge | | | 2012 | | NEUROSURGERY [address] | MD Denice [address] | | | | | [address] | [place], [place] | | | | | [place], [place] | [address] | | | | | [address] | [phone] | | | | | [phone] | | | +--------+ + + + [...] 2019 | Office | | MD Michael [address] [place] [address] | | | | Visit | | [address] | | | | | | [place] [address] | | | | | | [phone] | | | | | | | | +--------+ + + + + documented as of this encounter Visit Diagnoses Not on filedocumented in this encounter"
--- OUTSIDE RECORDS SUMMARY | ~2019-12-09 | XMS | Encounter Summary ---
Demographics + + + | Address | [address] | | | [place] [address] | + + + | Home Phone | | + + + | Preferred Language | Unknown | + + + | Marital Status | Single | + + + | Taoism Affiliation | 1041 | + + + [...] [place] | | | | | [address] | | + + + + + | Pratibha Hester | ECON | Unknown | + | + + + + + | Demian Powell | ECON | Unknown | + | + + + + + Care Team Providers + +------+ + | Care First Aid Officer Name | Role | Phone | + +------+ + | Quentin Manriquez PA-C | MARCK | | + +------+ + Encounter Details +--------+ + + + + | Date | Type | Department | Care Team | Description | +--------+ + + + + | 06/04/ | Hospital | [facility] | Sascha Mir, | Cervical radicular | | 2015 | Encounter | MED CTR XRAY [address] | DO [address] | pain | | | | [place] | [address] | | | | | [place] [address] | [id number] | | | | | [phone] | | | +--------+ + + + [...] + + + +---------+ + + | guaiFENesin | Take 200 mg by mouth | | 0 | | | | (ROBITUSSIN) 100 | every 4 hours as | | | | | | mg/5 mL SOLN | needed. | | | | | [...] (VALIUM) | Take 1 tablet by | 60 | 0 | 05/26/20 | | | 5 mg tablet | mouth every 6 hours | tablet | | 15 | 5 | | | as needed (muscle | | | | | | | spasm). | | | | | + + + +---------+ + + | lisinopril | Take 2.5 mg by mouth | | 0 | | | | (PRINIVIL, ZESTRIL) | Daily. | | | | 7 | | 10 mg tablet | | | | | | + + + +---------+ + + | methocarbamol | Take 1-2 tablets by | 90 | 3 | 06/03/20 | | | (ROBAXIN) 750 mg | mouth every 6 hours | tablet | | 15 | 5 | | tablet | as needed for Muscle | | | | | | | spasms for up to 10 | | | | | | | days. | | | | | + + + +---------+ + + | ondansetron | Take 1 tablet by | 20 | 0 | 06/03/20 | | | (ZOFRAN ODT) 4 mg | mouth every 8 hours | tablet | | 15 | 0 | | disintegrating | as needed for | | | | | | tabletIndications: | Nausea. | | | | | | Nausea | | | | | | + [...] | | Take 1 tablet by | 120 | 0 | 03/17/20 | | | oxyCODONE-acetaminop | mouth every 6 hours | tablet | | 15 | 6 | | hen (PERCOCET) | as needed for Pain. | | | | | | 10-325 mg per tablet | | | | [...] | Office | | MD Michael [address] | | | | Visit | | [address] | | | | | | [place] [address] | | | | | | [phone] | | | | | | | | +--------+ + + + + documented as of this encounter Procedures + +--------+ + + + | Procedure Name | Priori | Date/Time | Associated Diagnosis | Comments | | | ty | | | | + +--------+ + + + | XR CERVICAL SPINE 4 | Routin | 06/04/2015 | Cervical radicular | Results for this | | OR 5 VWS | e | 12:52 PM | pain | procedure are in the | | | | PDT | | results section. | + +--------+ + + + documented in this encounter Results XR Cervical Spine 4 or 5 Vws (06/04/2015 12:52 PM PDT) + + | Specimen | + + | | + + + + + | Narrative | Performed At | + + + | CERVICAL SPINE: 06/04/2015 12:51 PM CLINICAL HISTORY: Cervical | [facility] | | radiculopathy COMPARISON: MRI cervical spine 04/03/2015 | [facility] | | FINDINGS: Upright AP, lateral and lateral flexion-extension views of | [facility] | | the cervical spine. [...] + + + + + | [facility]. | [address] | [place] | [phone] | | [facility] | | [address] | | | - IMAGING | | | | + + + + + documented in this encounter Visit Diagnoses + + | Diagnosis | + + | Cervical radicular pain Brachial neuritis or radiculitis nos | + + documented in this encounter"
--- OUTSIDE RECORDS SUMMARY | ~2019-12-09 | XMS | Encounter Summary ---
Demographics + + + | Address | [address] | | | [place] [address] | + + + | Home Phone | | + + + | Preferred Language | Unknown | + + + | Marital Status | Single | + + + | Episcopalian Affiliation | 1041 | + + + | Race | Unknown | + + + | Ethnic Group | Unknown | + + + Author + + + | Author | [facility] | | | and [place] | + + + | Organization | [facility] | | | [...] [place] | | | | | [address] | | + + + + + | Pratibha Hester | ECON | Unknown | + | + + + + + | Demian Powell | ECON | Unknown | + | + + + + + Care Team Providers + +------+ + | Care School Adjustment Counselor Name | Role | Phone | + +------+ + | Quentin Manriquez PA-C | MARCK | | + +------+ + Reason for Visit + + + | Reason | Comments | + + + | New Patient | Back pain | + + + | Leg Pain | Left worse than rgiht | + + + | Claudication | | + + + Evaluate & Treat (Routine) +--------+--------+ + + + + | Status | Reason | Specialty | Diagnoses / | Referred By | Referred To | | | | | Procedures | Contact | Contact | +--------+--------+ + + + + | Closed | | Neurosurgery | Diagnoses | Declan, | [place], | | | | | | Quentin Leggett, | Sascha Montejo DO | | | | | Displacement | PA-C [address] | [address] | | | | | of lumbar | [place] | [address] | | | | | intervertebr | [address] | [place] | | | | | al disc | [place], | [address] Phone: | | | | | without | [place] [address] | [phone] | | | | | myelopathy | Phone: | Fax: | | | | | Procedures | [phone] | [phone] | | | | | AL OFFICE | Fax: | | | | | | CONSULTATION | [phone] | | | | | | NEW/ESTAB | | | | | | | PATIENT 60 | | | | | | | MIN | | | | | | | Awaiting MRI | | | | | | | to be | | | | | | | completed | | | +--------+--------+ + + + + Encounter Details +--------+---------+ + + + | Date | Type | Department | Care Team | Description | +--------+---------+ + + + | 09/26/ | Office | [facility] | Sascha Mir, | Spondylolisthesis of | | 2015 | Visit | NEUROSURGERY [address] | DO [address] | lumbar region | | | | [address] | [address] [place], [place] | (Primary Dx); Lumbar | | | | [place], [place] | [address] | stenosis; Lumbar | | | | [address] | | radicular pain; | | | | [phone] | | Midline low back | | | | | | pain with left-sided | | | | | | sciatica | +--------+---------+ + + + Social History [...] + + + | Blood Pressure | 118/69 | 09/26/2014 10:09 AM | | | | | PST | | + + + + + | Pulse | 83 | 09/26/2014 10:09 AM | | | | | PST | | + + + + + | Temperature | - | - | | + + + + + | Respiratory Rate | 16 | 09/26/2014 10:09 AM | | | | | PST | | + + + + + | Oxygen Saturation | - | - | | + + + + + | Inhaled Oxygen | - | - | | | Concentration | | | | + + + + + | Weight | 116.1 kg (256 lb) | 09/26/2014 10:09 AM | | | | | PST | | + + + + + | Height | 167.6 cm (5' 6") | 09/26/2014 10:09 AM | | | | | PST | | + + + + + | Body Mass Index | 41.32 | 09/26/2014 10:09 AM | | | | | PST | | + + + + + documented in this encounter Patient Instructions Patient Instructions Sascha Mir DO - 09/26/2014 10:45 AM PSTPlease follow-up with you r primary care physician for preoperative clearance. Please present for surgery when scheduled. documented in this encounter Progress Notes Sascha Mir DO - 09/26/2014 10:46 AM PSTFormatting of this note might be different fro m the original. Sascha Mir DO [address] [facility] [place], [place] [id number] FAX: NEUROSURGERY HISTORY AND PHYSICAL EXAMINATION CHIEF COMPLAINT: Chief Complaint Patient presents with New Patient Back pain Leg Pain Left worse than rgiht Claudication HISTORY OF PRESENT ILLNESS: The patient is a 44 y.o. female with the complaint of back finesse n that began 10 years ago. The symptoms began insidiously, but is worse over the last two y ears. Since that time the patient feel her pain has been worsening. She rates the pain as severe. She describes the pain as a aching feeling. The patient also describes leg symptoms that occur on both sides, left worse than right. T he leg symptoms account for greater than or equal to 75% of her symptoms. The leg symptoms are persistent and the symptoms travels from the buttock down the back of her legs to the brando ttom of her feet. The patient also describes difficulty walking more than a few blocks. Th e patient does not report any change in bowel or bladder function recently. Her symptoms improve with laying flat and pain medication. Her symptoms worsen with sitting, standing, bending, twisting, lifting, more activities. She has tried lifestyle modification, pain medication, physical therapy, chiropractics, ankita roid injections. PAST MEDICAL HISTORY: Past Medical History Diagnosis Date Morbid obesity (HCC) Diabetes mellitus (HCC) Multiple allergies Chronic back pain Gastric reflux Anemia Asthma Peptic ulcer Pelvic inflammatory disease Spondylolisthesis of lumbar region Pars defect of lumbar spine Trochanteric bursitis Anemia Anxiety Asthma Heart attack (HCC) 2009 Migraine Ulcer of the stomach and intestine PAST SURGICAL HISTORY: Past Surgical History Procedure Laterality Date Tonsillectomy Adenectomy Shoulder surgery Cholecystectomy section, low transverse 1995 section, low transverse 2005 CURRENT MEDICATIONS: Current Outpatient Prescriptions on File Prior to Visit Medication Sig Dispense Refill albuterol (PROVENTIL,VENTOLIN) 90 MCG/ACT inhaler Inhale 2 puffs into the lungs every 4 hours as needed. ALBUTEROL SULFATE IN NEBU; 1-2 puffs every 3-4 hours as needed ascorbic acid (VITAMIN C) 100 mg/mL LIQD Take 500 mg by mouth Daily. aspirin 81 mg EC tablet Take 81 mg by mouth Daily. CIMETIDINE PO TABS ferrous sulfate 325 mg tablet Take 325 mg by mouth 2 times daily (with breakfast & dinn er). HYDROCHLOROTHIAZIDE PO Take by mouth. HYDROcodone-acetaminophen (NORCO) 5-325 mg per tablet Take 1 tablet by mouth Daily. HYDROcodone-acetaminophen (NORCO) 7.5-325 mg per tablet Take 1 tablet by mouth every 6 hours as needed. ibuprofen (ADVIL,MOTRIN) 600 MG tablet Take 600 mg by mouth every 8 hours as needed for Pain. IRON PO TABS lisinopril (PRINIVIL, ZESTRIL) 10 mg tablet Take 10 mg by mouth Daily. Loratadine (CLARITIN) 10 MG CAPS Take by mouth Daily. montelukast (SINGULAIR) 10 mg tablet Take 10 mg by mouth Daily. Multiple Vitamin (MULTIVITAMIN PO) Take by mouth Daily. omeprazole (PRILOSEC) 20 mg capsule Take 20 mg by mouth Daily. ondansetron (ZOFRAN ODT) 4 mg disintegrating tablet Take 4 mg by mouth every 8 hours as needed for Nausea. promethazine (PHENERGAN) 25 mg tablet Take 25 mg by mouth Daily as needed. No current facility-administered medications on file prior to visit. ALLERGIES: Allergies Allergen Reactions Anesthetics, Ludmila Itching Allergic to anesthetics Morphine Rash Morphine Sulfate Er SOCIAL HISTORY: The patient reports that she quit smoking about 4 years ago. Her smoking use included Ciga rettes. She smoked 0.00 packs per day. She has never used smokeless tobacco. She reports bradley t she drinks alcohol. She reports that she does not use illicit drugs. FAMILY HISTORY: Family History Problem Relation Age of Onset Stroke Sister Other (See Comment) Sister passed in her sleep unsure of cause Mental illness Sister Alcohol abuse Other Seizures Sister Heart failure Father Heart failure Sister Diabetes Sister Hypertension Mother Arthritis Mother Renal Failure Sister Arthritis Sister Asthma Daughter Asthma Son REVIEW OF SYSTEMS GENERALLY: No fever, no night sweats, + anemia, no fatigue, + recent profound weight change s. EYES: + eye problems, + use of corrective lenses, no eye injury, no double vision, no blind ness. EARS, NOSE, AND THROAT: + changes in taste or smell, + hearing difficulty, + ringing in the ears, no ear drainage, + dizziness, + voice changes, + difficulty swallowing, no significan t snoring, no sleep apnea, + sinus problems, + major dental work. NEUROLOGICALLY: Please see the review of systems discussed above in the history of present illness. In addition, the patient has + pain of arms, + awake with Pain, + weakness, + Muscl e aching, + change in walk, + Head injury, + pain in neck, + pain in back, + Headaches. . PSYCHIATRIC: No depression, no sleep disorders, + anxiety, no bipolar disorder, no psychoti c episodes. CARDIOVASCULAR: + heart attacks, no heart murmur, no heart fluttering, + chest pain, no ank le swelling. LUNG DISEASE: No shortness of breath, no cough, no tuberculosis, no bloody cough, + asthma, no emphysema/COPD. GASTROINTESTINAL: No bowel disease, + nausea or vomiting, no rectal bleeding, no constipati on, no stool incontinence, no liver disease, no gallbladder disease, + abdominal pain, no ul cers. KIDNEY DISEASE: No urinary frequency, no painful or difficult urination, no incontinence. ENDOCRINE: No diabetes, no thyroid disease, no osteopenia or osteoporosis, no breast draina ge. SKIN: No breast lumps, no skin changes, no rashes, no itches. HEMATOLOGIC/LYMPHATIC: No enlarged lymph nodes, no easy or unusual bleeding, no personal hi story of cancer. RHEUMATOLOGIC: + joint arthritis, no rheumatoid arthritis. PHYSICAL EXAMINATION: Blood pressure 118/69, pulse 83, resp. rate 16, height 1.676 m (5' 6"), weight 116.121 kg ( 256 lb). Body mass index is 41.34 kg/(m^2). GENERAL: Demian Nina is in no acute distress with unlabored respirations. The patient does not appear uncomfortable throughout the exam today. HEENT: HEAD/FACE: EYES: EARS: NASOPHARNYX: OROPHARNYX: Normocephalic and atraumatic. There are no areas of recent trauma. Normal sclerae without icterus. No drainage or tenderness. Clear without drainage. Clear without erythema. NECK (ANTERIOR): Supple and without palpable masses. CHEST: Clear to ausculation without crackles or wheeze. HEART: Regular rate and rhythm without murmurs. ABDOMEN: Soft, non-tender, non-distended, and without palpable masses. The patient is obe se. SPINE: There is no tenderness in the midline of the cervical or thoracic spine. There is n o major palpable deformity of the spine. The lumbar spine shows there is tenderness in the midline of the L5 levels. To palpation, there is signficant bilateral myofascial tenderness. EXTREMITIES: No cyanosis, clubbing, or edema. Distal pulses are palpable. NEUROLOGICAL EXAM: MENTAL STATUS: The patient is awake, alert, and oriented. She follows simple and complex commands. She speech is fluent, her comprehends speech well, and her repeats well. She has no apparent deficits with short or mcc memory. CRANIAL NERVES: II: Acuity is intact. Stahl are full to confrontation. III, IV, : The pupils are reactive. Extraocular movements are intact. No ptosis is note d. V: Facial sensation is intact and symmetric. VII: Facial movements are symmetric. VIII: Hearing is intact bilaterally. IX, X: The uvula and palate move appropriately. XI: Shrug is equal bilaterally. XII: Tongue protrusion is midline. MOTOR EXAM: (5 IS NORMAL) * Indicates pain limited MUSCLE/ MOVEMENT: RIGHT LEFT Deltoids 5 5 Biceps 5 5 Triceps 5 5 Wrist Flexion 5 5 Wrist Extension 5 5 Median Intrinsics 5 5 Ulnar Intrinsics 5 5 Remelt Furnace Expediter Strength 5 5 Hip Flexion 5 5 Hip Extension 5 5 Knee Flexion 5 5 Knee Extension 5 5 Dorsiflexion 5 5 Extensor Hallicus Longus 5 5 Plantarflexion 5 5 SENSORY EXAM: Sensory exam shows bilateral S1-type dysesthesia. REFLEXES: (2 OR 2+ IS NORMAL) REFLEX: RIGHT LEFT BICEPS 2 2 BRACHIORADIALIS 2 2 TRICEPS 2 2 PATELLAR 2 2 ACHILLES 1 1 HERNANDEZ'S ABSENT ABSENT PLANTAR DOWNGOING DOWNGOING GAIT: Gait is steady. PERIPHERAL NERVE/MISC: Tinel is negative at the wrists and elbows bilaterally. Phalen is negative. Straight leg raise is negative bilaterally. Gavin's test of the hips is negative bilaterally. RADIOGRAPHIC REVIEW: The patient's imaging was reviewed in detail with the patient today during the visit. The MRI of the lumbar spine from 06/25/14 demonstrates spondylosis L5-S1. There is spondylolisth esis with bilateral pars defects and resulting lateral recess and foraminal stenosis at L5-S 1. The dynamic x-rays from 09/26/14 demonstrates severe dynamic instability with and increase o f 18 mm in spondylolisthesis at L5-S1. ASSESSMENT: NEUROSURGICAL DIAGNOSES: Encounter Diagnoses Name Primary? Spondylolisthesis of lumbar region Yes Lumbar stenosis Lumbar radicular pain Midline low back pain with left-sided sciatica GENERAL DIAGNOSES: Past Medical History Diagnosis Date Morbid obesity (HCC) Diabetes mellitus (HCC) Multiple allergies Chronic back pain Gastric reflux Anemia Asthma Peptic ulcer Pelvic inflammatory disease Spondylolisthesis of lumbar region Pars defect of lumbar spine Trochanteric bursitis Anemia Anxiety Asthma Heart attack (HCC) 2009 Migraine Ulcer of the stomach and intestine PLAN: It was a pleasure meeting and evaluating this patient today, and I greatly appreciate the r eferral. The patient has unstable spondylolisthesis L5-S1 with severe stenosis. This is lik laure contributing to her back pain, leg pain, and claudication. I had a lengthy discussion with the patient about her options for care including surgical a nd non-surgical options. She has tried years of conservative therapy and would like to proc eed with TLIF L5-S1. We discussed the risks, alternatives, and benefits to surgical intervention with . Nicole montejo in clinic. These risks included but were not limited to , stroke, heart attack, numb ness, weakness, paralysis, failure of fusion, failure of hardware, subsidence, adjacent segm ent degeneration, cerebrospinal fluid leak, bleeding, infection, injury to surrounding tissu es and organs, injury from positioning, injury to the nerves, difficulty with breathing, dif ficulty with swallowing, difficulty with voice change, and need for additional surgery. Surgical options were discussed and the technique to be employed was described in detail to her. All her questions were answered. We discussed that the goal of the surgery is to prevent progression of her disease, but it is not considered a cure. We also discussed that although some patients may obtain 100% sym ptom relief, it is realistic to anticipate that some symptoms will continue postoperatively despite a successful surgery. We also discussed that there is no guarantee that surgery will provide improvement in her c ondition, and indeed may even worsen the symptoms. We also discussed that in the course of the procedure the operative plan may be altered to include more, less, or different levels d epending upon findings in order to provide her with the best possible outcome. I recommended for this patient that she be fitted with a brace before surgery to improve he r stability now to support her weak muscles and to reduce pain by restricting mobility. For multiple (more than 1 level fusions), I recommend the use of a bone growth stimulator p ostoperatively. This is to improve the probability and rate of fusion. She will follow-up with her primary care provider for preoperative clearance and optimizati on prior to presenting for surgery. ELECTRONICALLY SIGNED BY: Sascha Mir DO, 09/26/2014 10:56 documented in this encounter Plan of Treatment +--------+ + + + + | Date | Type | Specialty | Care Team | Description | +--------+ + + + + | 12/11/ | Virtual | Sleep Medicine | Jasiel Loo | | | 2019 | Office | | MD Michael [address] | | | | Visit | | [place] | | | | | | [place] [address] | | | | | | [phone] | | | | | | | | +--------+ + + + + documented as of this encounter Visit Diagnoses + + | Diagnosis | + + | Spondylolisthesis of lumbar region - Primary Acquired spondylolisthesis | + + | Lumbar stenosis Spinal stenosis, lumbar region, without neurogenic claudication | + + | Lumbar radicular pain Thoracic or lumbosacral neuritis or radiculitis, unspecified | + + | Midline low back pain with left-sided sciatica | + + documented in this encounter
--- OUTSIDE RECORDS SUMMARY | ~2019-12-09 | XMS | Encounter Summary ---
Demographics + + + | Address | [address] | | | [place] [address] | + + + | Home Phone | | + + + | Preferred Language | Unknown | + + + | Marital Status | Single | + + + | Lutheran Affiliation | CAT | + + + | Race | Unknown | + + + | Ethnic Group | Not or | + + + Author + + + | Author | [facility] | + + + | Organization | [facility] | + + + | Address | Unknown | + + + | Phone | Unavailable | + + + Support + + +---------+ + | Name | Relationship | Address | Phone | + + +---------+ + | Alisia Nina | ECON | Unknown | | + + +---------+ + Care Team Providers + +------+ + | Care Musician Instrumental Name | Role | Phone | + +------+ + | Gracie Lewis PA-C | PCP | | + +------+ + Encounter Details +--------+ + + + + | Date | Type | Department | Care Team | Description | +--------+ + + + + | 05/03/ | Documentati | [facility] | Clinic, Surgery | | | 2019 | on | [facility] [address] | | | | | | Jennifer Schreiber | | | | | | Mailcode: Center | | | | | | [facility] | | | | | | [facility], [address] | | | | | | [facility] [place] | | | | | | [address] | | | | | | [phone] | | | +--------+ + + + [...] | +--------+ + + + + | 01/03/ | Telephone-S | Pre-operative | | | | 2020 | cheduled | Medicine | | | +--------+ + + + + | 01/10/ | Hospital | | Guillermo Quach MD | | | 2019 | Encounter | | [address] | | | | | | [place], | | | | | | [place] [address] | | | | | | [phone] | | | | | | | | +--------+ + + + + | 01/10/ | Appointment | Gastroenterology | Guillermo Quach MD | | | 2019 | | | [address] | | | | | | [place] | | | | | | [place] [address] | | | | | | [phone] | | | | | | | | +--------+ + + + + documented as of this encounter Visit Diagnoses Not on filedocumented in this encounter"
--- OUTSIDE RECORDS SUMMARY | ~2019-12-09 | XMS | Encounter Summary ---
Demographics + + + | Address | [address] | | | [place] [address] | + + + | Home Phone | | + + + | Preferred Language | Unknown | + + + | Marital Status | Single | + + + | Pentecostalism Affiliation | CAT | + + + | Race | Unknown | + + + | Ethnic Group | Not or | + + + Author + + + | Author | [facility] | + + + | Organization | [facility] | + + + | Address | Unknown | + + + | Phone | Unavailable | + + + Support + + +---------+ + | Name | Relationship | Address | Phone | + + +---------+ + | Alisia Nina | ECON | Unknown | | + + +---------+ + Care Team Providers + +------+ + | Care Glass Setter Name | Role | Phone | + +------+ + | Quentin Manriquez | PCP | | + +------+ + Reason for Visit + + + | Reason | Comments | + + + | Question | | + + + Encounter Details +--------+ + + + + | Date | Type | Department | Care Team | Description | +--------+ + + + + | 06/20/ | Telephone | Otolaryngology | Windy Mclean | Question | | 2014 | | Otology Services at | MD Loli [address] | | | | | [address] | | | | | [address] | [place], [place] | | | | | Physician's | [address] | | | | | [address] | [phone] | | | | | [place], [place] | | | | | | [address] | | | | | | [phone] | | | +--------+ + + + [...] Telephone-S | Pre-operative | | | | 2019 | cheduled | Medicine | | | +--------+ + + + + | 01/10/ | Hospital | | Guillermo Quach MD | | | 2019 | Encounter | | [address] | | | | | | [place] | | | | | | [place] [address] | | | | | | [phone] | | | | | | | | +--------+ + + + + | 01/10/ | Appointment | Gastroenterology | Guillermo Quach MD | | | 2019 | | | [address] | | | | | | [place] | | | | | | [place] [address] | | | | | | [phone] | | | | | | | | +--------+ + + + + documented as of this encounter Visit Diagnoses Not on filedocumented in this encounter"
--- OUTSIDE RECORDS SUMMARY | ~2019-12-09 | XMS | Encounter Summary ---
Demographics + + + | Address | [address] | | | [place] [address] | + + + | Home Phone | | + + + | Preferred Language | Unknown | + + + | Marital Status | Single | + + + | Yazdanism Affiliation | 1041 | + + + | Race | Unknown | + + + | Ethnic Group | Unknown | + + + Author + + + | Author | [facility] | | | and [place] | + + + | Organization | [facility] | | | [...] [place] | | | | | [address] | | + + + + + | Pratibha Hester | ECON | Unknown | + | + + + + + | Demian Powell | ECON | Unknown | + | + + + + + Care Team Providers + +------+ + | Care Tempering Machine Operator Name | Role | Phone | [...] + | 05/25/ | Refill | [facility] | Sascha Mir, | Medication Refill | | 2014 | | NEUROS[address] | DO [address] | | | | | [address] | [address] [place], [place] | | | | | Raj[place] | [id number] | | | | | [address] | | | | | | [phone] | | | +--------+--------+ + + + [...] 2019 | Office | | MD Michael [address] [place] [address] | | | | Visit | | Ed Lopes | | | | | | [place] [address] | | | | | | [phone] | | | | | | | | +--------+ + + + + documented as of this encounter Visit Diagnoses Not on filedocumented in this encounter"
--- OUTSIDE RECORDS SUMMARY | ~2019-12-09 | XMS | Encounter Summary ---
Demographics + + + | Address | [address] | | | [place] [address] | + + + | Home Phone | | + + + | Preferred Language | Unknown | + + + | Marital Status | Single | + + + | Restorationist Affiliation | CAT | + + + | Race | Unknown | + + + | Ethnic Group | Not or | + + + Author + + + | Author | [facility] | + + + | Organization | [facility] | + + + | Address | Unknown | + + + | Phone | Unavailable | + + + Support + + +---------+ + | Name | Relationship | Address | Phone | + + +---------+ + | Alisia Nina | ECON | Unknown | | + + +---------+ + Care Team Providers + +------+ + | Care Log Clerk Name | Role | Phone | + [...] | | | | | ear | [facility], | | | | | Dizziness | Rd | 10th Floor | | | | | Procedures | [place], [place] | [place], [place] | | | | | [place] | [address] | [address] | | | | | BENIGN | Phone: | Phone: | | | | | DISEASE WO | [phone] | [phone] | | | | | [place] | Fax: | Fax: | | | | | SCAN,ORBIT/S | [phone] | [phone] | | | | | CORY/POST | | | | | | | FOSSA/EAR,W/ | | | | | | | O | | | +--------+--------+ + + + + Reason for Visit Diagnostic Testing (Routine) +--------+--------+ + + + + | Status | Reason | Specialty | Diagnoses / | Referred By | Referred To | | | | | Procedures | Contact | Contact | +--------+--------+ + + + + | Closed | | Radiology | Diagnoses | Guillen | Rad Ct Scan | | | | | Conductive | Windy Armas | [facility] [address] | | | | | hearing loss | MD Loli [address] | | | | | in right | [address] | [place] [facility] | | | | | ear | [facility] | [facility], | | | | | Dizziness | Rd | 10th Floor | | | | | Procedures | [place], [place] | [place], [place] | | | | | [place] | [address] | [address] | | | | | BENIGN | Phone: | Phone: | | | | | DISEASE WO | [phone] | [phone] | | | | | [place] CT | Fax: | Fax: | | | | | SCAN,ORBIT/S | [phone] | [phone] | | | | | CORY/POST | | | | | | | FOSSA/EAR,W/ | | | | | | | O | | | +--------+--------+ + + + + Encounter Details +--------+ + + + + | Date | Type | Department | Care Team | Description | +--------+ + + + + | 08/14/ | Hospital | Diagnostic Imaging | | | | 2014 | Encounter | Services at [facility] | | | | | | [address] | | | | | | [place] [facility] | | | | | | [address] | | | | | | [place], [place] | | | | | | [address] | | | | | | [phone] | | | +--------+ + + + [...] at Time of Discharge + + + +---------+--------+ + | Medication | Sig | Dispensed | Refills | Start | End Date | | | | | | Date | | + + + +---------+--------+ + | lisinopril 10 mg | Take 10 mg by mouth | | 0 | | | | oral tablet | once daily. | | | | | + + + +---------+--------+ + | loratadine 10 mg | Take by mouth. | | 0 | | | | oral capsule | | | | | | + + + +---------+--------+ + | METFORMIN HCL | Take by mouth. | | 0 | | | | (METFORMIN ORAL) | | | | | | + + + +---------+--------+ + | Mometasone 220 mcg | Inhale 1 puff once | | 0 | | | | (30 doses) | daily. | | | | | | inhalation aerosol | | | | | | | powdr breath | | | | | | | activated | | | | | | + + + +---------+--------+ + | montelukast 10 mg | Take 10 mg by mouth | | 0 | | | | oral tablet | once daily in the | | | | | | | evening. | | | | | + + + +---------+--------+ + | terbinafine 250 mg | Take 250 mg by mouth | | 0 | | | | oral tablet | once daily. | | | | | + + + +---------+--------+ + documented as of this encounter Plan [...] | | | | | | [place] [address] | | | | | | [phone] | | | | | | | | +--------+ + + + + | 01/10/ | Appointment | Gastroenterology | Guillermo Quach MD | | | 2020 | | | [address] | | | | | | [place], | | | | | | [place] [address] | | | | | | [phone] | | | | | | | | +--------+ + + + + documented as of this encounter Procedures + +--------+ + + + | Procedure Name | Priori | Date/Time | Associated Diagnosis | Comments | | | ty | | | | + +--------+ + + + | CT [place] BENIGN | Routin | 08/14/2014 | Conductive hearing | Results for this | | DISEASE WO CONTRAST | e | 1:51 PM | loss in right ear | procedure are in the | | | | PST | Dizziness | results section. | + +--------+ + + + documented in this encounter Results CT [place] BENIGN DISEASE [...] giddiness | + + documented in this encounter"
--- OUTSIDE RECORDS SUMMARY | ~2019-12-09 | XMS | Encounter Summary ---
Demographics + + + | Address | [address] | | | [place] [address] | + + + | Home Phone | | + + + | Preferred Language | Unknown | + + + | Marital Status | Single | + + + | Episcopalian Affiliation | CAT | + + + [...] Team Providers + +------+ + | Care Geomorphologist Name | Role | Phone | + +------+ + | Quentin Manriquez | PCP | | + +------+ + Encounter Details +--------+ + + + + | Date | Type | Department | Care Team | Description | +--------+ + + + + | 05/13/ | Telephone | Otolaryngology | Windy Mclean | | | 2014 | | Otology Services at | MD Loli [address] | | | | | [address] | | | | | [address] | [facility] [place] | | | | | Physician's | [address] | | | | | [place], [facility] floor | [phone] | | | | | [place], [place] | | | | | | [address] | | | | | | [phone] | | | +--------+ + + + [...] | | | | | | [place] [address] | | | | | | [phone] | | | | | | | | +--------+ + + + + | 01/10/ | Appointment | Gastroenterology | Guillermo Quach MD | | | 2019 | | | [address] | | | | | | [place] | | | | | | [place] [address] | | | | | | [phone] | | | | | | | | +--------+ + + + + documented as of this encounter Visit Diagnoses Not on filedocumented in this encounter"
--- OUTSIDE RECORDS SUMMARY | ~2019-12-09 | XMS | Encounter Summary ---
Demographics + + + | Address | [address] | | | [place] [address] | + + + | Home Phone | | + + + | Preferred Language | Unknown | + + + | Marital Status | Single | + + + | Baptism Affiliation | 1041 | + + + | Race | Unknown | + + + | Ethnic Group | Unknown | + + + Author + + + | Author | [facility] | | | and [place] | + + + | Organization | [facility] | | [...] [place] | | | | | [address] | | + + + + + | Pratibha Hester | ECON | Unknown | + | + + + + + | Demian Powell | ECON | Unknown | + | + + + + + Care Team Providers + +------+ + | Care Trap Puller Name | Role | Phone | + +------+ + | Quentin Manriquez PA-C | MARCK | | + +------+ + Reason for Visit + + + | Reason | Comments | + + + | Appointment | | + + + Encounter Details +--------+ + + + + | Date | Type | Department | Care Team | Description | +--------+ + + + + | 06/17/ | Telephone | [facility] | Sascha Mir, | Appointment | | 2014 | | NEUROSUR[address]ERY [address] | DO [address] | | | | | [address] [facility] | [address] [place], [place] | | | | | [place] | [id number] | | | | | [address] | | | | | | [phone] | | | +--------+ + + + [...] 2019 | Office | | MD Michael [address] [place] [address] | | | | Visit | | Ed Lopes | | | | | | [place] [address] | | | | | | [phone] | | | | | | | | +--------+ + + + + documented as of this encounter Visit Diagnoses Not on filedocumented in this encounter"
--- OUTSIDE RECORDS SUMMARY | ~2019-12-09 | XMS | Encounter Summary ---
Demographics + + + | Address | [address] | | | [place] [address] | + + + | Home Phone | | + + + | Preferred Language | Unknown | + + + | Marital Status | Single | + + + | Anabaptist Affiliation | 1041 | + + + | Race | Unknown | + + + | Ethnic Group | Unknown | + + + Author + + + | Author | [facility] | | | and [place] | + + + | Organization | [facility] | | | [...] [place] | | | | | [address] | | + + + + + | Pratibha Hester | ECON | Unknown | + | + + + + + | Demian Powell | ECON | Unknown | + | + + + + + Care Team Providers + +------+ + | Care Order Administrator Name | Role | Phone | + +------+ + | Quentin Manriquez PA-C | MARCK | | + +------+ + Encounter Details +--------+ + + + + | Date | Type | Department | Care Team | Description | +--------+ + + + + | 08/14/ | Orders Only | [facility] | Sascha Mir, | Displacement of | | 2014 | | [address]UROSUR[address] | DO [address] | lumbar | | | | [address] | [address] [place], [place] | intervertebral disc | | | | [place], [place] | [address] | without myelopathy | | | | [address] | | (Primary Dx) | | | | [phone] | | | +--------+ + + + [...] | Office | | MD Michael [address] | | | | Visit | | [facility] | | | | | | [place] [address] | | | | | | [phone] | | | | | | | | +--------+ + + + + documented as of this encounter Visit Diagnoses + + | Diagnosis | + + | 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
--- OUTSIDE RECORDS SUMMARY | ~2019-12-09 | XMS | Encounter Summary ---
Demographics + + + | Address | [address] | | | [place] [address] | + + + | Home Phone | | + + + | Preferred Language | Unknown | + + + | Marital Status | Single | + + + | Bahai Affiliation | 1041 | + + + | Race | Unknown | + + + | Ethnic Group | Unknown | + + + Author + + + | Author | [facility] | | | and [place] | + + + | Organization | [facility] | | | [...] [place] | | | | | [address] | | + + + + + | Pratibha Hester | ECON | Unknown | + | + + + + + | Demian Powell | ECON | Unknown | + | + + + + + Care Team Providers + +------+ + | Care Quarry Manager Name | Role | Phone | + +------+ + | Quentin Manriquez PA-C | MARCK | | + +------+ + Encounter Details +--------+ + + + + | Date | Type | Department | Care Team | Description | +--------+ + + + + | 09/19/ | Abstract | [facility] | Sascha Mir, | | | 2014 | | NEUROSURGERY [address] | DO [address] | | | | | [address] | [address] [place], [place] | | | | | [place], [place] | [id number] | | | | | [address] | | | | | | [phone] | | | +--------+ + + + [...] 2019 | Office | | MD Michael [address] [place] [address] | | | | Visit | | Ed Lopes | | | | | | [place] [address] | | | | | | [phone] | | | | | | | | +--------+ + + + + documented as of this encounter Visit Diagnoses Not on filedocumented in this encounter"
--- OUTSIDE RECORDS SUMMARY | ~2019-12-09 | XMS | Encounter Summary ---
Demographics + + + | Address | [address] | | | [place] [address] | + + + | Home Phone | | + + + | Preferred Language | Unknown | + + + | Marital Status | Single | + + + | Caodaism Affiliation | CAT | + + + | Race | Unknown | + + + | Ethnic Group | Not or | + + + Author + + + | Author | [facility] | + + + | Organization | [facility] | + + + | Address | Unknown | + + + | Phone | Unavailable | + + + Support + + +---------+ + | Name | Relationship | Address | Phone | + + +---------+ + | Alisia Nina | ECON | Unknown | | + + +---------+ + Care Team Providers + +------+ + | Care Director Of Web Marketing Name | Role | Phone | + +------+ + | Gracie Lewis PA-C | PCP | | + +------+ + Encounter Details +--------+ + + + + | Date | Type | Department | Care Team | Description | +--------+ + + + + | 10/19/ | Outside | [facility] | Angelo Abrams | | | 2019 | Referral | [facility] [address] | MD [address]inny [address] | | | | Order | Melvin Schreiber Mailcode: | georgette Cano | | | | | [address] for | [place] [address] | | | | | [facility], | [phone] | | | | | [place] [address] | | | | | | [place], [place] | | | | | | [address] | | | | | | [phone] | | | +--------+ + + + [...] | | | | | | [place] [address] | | | | | | [phone] | | | | | | | | +--------+ + + + + | 01/10/ | Appointment | Gastroenterology | Guillermo Quach MD | | | 2019 | | | [address] | | | | | | [place] | | | | | | [place] [address] | | | | | | [phone] | | | | | | | | +--------+ + + + + documented as of this encounter Visit Diagnoses + + | Diagnosis | + + | History of pancreatitis - Primary Personal history of other diseases of digestive | | system | + + | Other chronic pain | + + | Morbid obesity (HCC) Morbid obesity | + + documented in this encounter"
--- OUTSIDE RECORDS SUMMARY | ~2019-12-09 | XMS | Encounter Summary ---
Demographics + + + | Address | [address] | | | [place] [address] | + + + | Home Phone | | + + + | Preferred Language | Unknown | + + + | Marital Status | Single | + + + | Druze Affiliation | 1041 | + + + | Race | Unknown | + + + | Ethnic Group | Unknown | + + + Author + + + | Author | [facility] | | | and [place] | + + + | Organization | [facility] | | | and [...] [place] | | | | | [address] | | + + + + + | Pratibha Hester | ECON | Unknown | + | + + + + + | Demian Powell | ECON | Unknown | + | + + + + + Care Team Providers + +------+ + | Care Park Interpretive Ranger Name | Role | Phone | + +------+ + | Quentin Manriquez PA-C | MARCK | | + +------+ + Reason for Visit +--------+ + | Reason | Comments | +--------+ + | Other | medication refill questions | +--------+ + Encounter Details +--------+ + + + + | Date | Type | Department | Care Team | Description | +--------+ + + + + | 03/04/ | Telephone | [facility] | Sascha Mir, | Other (medication | | 2014 | | [address] | DO [address] | refill questions) | | | | [address] | [address] [place] | | | | | [place] | [id number] | | | | | [address] | | | | | | [phone] | | | +--------+ + + + [...] 2019 | Office | | MD Michael [address] [place] [address] | | | | Visit | | Ed Lopes | | | | | | [place] [address] | | | | | | [phone] | | | | | | | | +--------+ + + + + documented as of this encounter Visit Diagnoses Not on filedocumented in this encounter"
--- OUTSIDE RECORDS SUMMARY | ~2019-12-09 | XMS | Encounter Summary ---
Demographics + + + | Address | [address] | | | [place] [address] | + + + | Home Phone | | + + + | Preferred Language | Unknown | + + + | Marital Status | Single | + + + | Pentecostal Affiliation | 1041 | + + + | Race | Unknown | + + + | Ethnic Group | Unknown | + + + Author + + + | Author | [facility] | | | and [place] | + + + | Organization | [facility] | | | and [place] | + + + | Address | Unknown | + + + | Phone | Unavailable | + + + Support + + + + + | Name | Relationship | Address | Phone | + + + + + | Uche Nina | ECON | [address] | + | | | | [place] | | | | | [address] | | + + + + + | Pratibha Hester | ECON | Unknown | + | + + + + + | Demian Powell | ECON | Unknown | + | + + + + + Care Team Providers + +------+ + | Care Automotive Service Cashier Name | Role | Phone | + +------+ + | Derick Mclaughlin PA-C | PCP | | + +------+ + Reason for Visit +--------+ + | Reason | Comments | +--------+ + | Other | Appointment cancellation due to insurance | +--------+ + Encounter Details +--------+ + + + + | Date | Type | Department | Care Team | Description | +--------+ + + + + | 10/11/ | Telephone | [facility] | Denilson Jorge | Other (Appointment | | 2012 | | [address]UR[address]UR[address] | [address], [address] | cancellation due to | | | | [address] | [address] [place] | insurance ) | | | | [place] | [address] | | | | | [address] | [phone] | | | | [phone] | | | +--------+ + + + [...] 2019 | Office | | MD Michael [address] [place] [address] | | | | Visit | | Ed [facility] | | | | | | [place] [address] | | | | | | [phone] | | | | | | | | +--------+ + + + + documented as of this encounter Visit Diagnoses Not on filedocumented in this encounter"
--- OUTSIDE RECORDS SUMMARY | ~2019-12-09 | XMS | Encounter Summary ---
Demographics + + + | Address | [address] | | | [place] [address] | + + + | Home Phone | | + + + | Preferred Language | Unknown | + + + | Marital Status | Single | + + + | Yarsani Affiliation | 1041 | + + + | Race | Unknown | + + + | Ethnic Group | Unknown | + + + Author + + + | Author | [facility] | | | and [place] | + + + | Organization | [facility] | | [...] [place] | | | | | [address] | | + + + + + | Pratibha Hester | ECON | Unknown | + | + + + + + | Demian Powell | ECON | Unknown | + | + + + + + Care Team Providers + +------+ + | Care Brass Polisher Name | Role | Phone | + +------+ + | Quentin Manriquez PA-C | MARCK | | + +------+ + Reason for Visit +--------+ + | Reason | Comments | +--------+ + | Other | | +--------+ + Encounter Details +--------+ + + + + | Date | Type | Department | Care Team | Description | +--------+ + + + + | 05/05/ | Telephone | [facility] | Sascha Mir, | Other | | 2014 | | [address]UR[address]UR[address] | DO [address] | | | | | [address] [facility] | [address] [place], [place] | | | | | [place] | [address] | | | | | [address] | | | | | | [phone] | | | +--------+ + + + [...] 2019 | Office | | MD Michael [address] [place] [address] | | | | Visit | | Ed Lopes | | | | | | [place] [address] | | | | | | [phone] | | | | | | | | +--------+ + + + + documented as of this encounter Visit Diagnoses Not on filedocumented in this encounter"
--- OUTSIDE RECORDS SUMMARY | ~2019-12-09 | XMS | Encounter Summary ---
Demographics + + + | Address | [address] | | | [place] [address] | + + + | Home Phone [...] [place] | | | | | [address] | | + + + + + | Pratibha Hester | ECON | Unknown | + | + + + + + | Demian Powell | ECON | Unknown | + | + + + + + Care Team Providers + +------+ + | Care Machine Adjuster Helper Name | Role | Phone | + +------+ + | Quentin Manriquez PA-C | MARCK | | + +------+ + Encounter Details +--------+ + + + + | Date | Type | Department | Care Team | Description | +--------+ + + + + | 01/15/ | Hospital | [facility] | Sascha Mir, | Status post lumbar | | 2015 | Encounter | MED CTR XRAY [address] | DO [address] | spinal fusion | | | | [place] | [address] | | | | | [place] [address] | [id number] | | | | | [phone] | | | +--------+ + + + [...] + + + +---------+ + + | cyclobenzaprine | Take 1 tablet by | 120 | 0 | 01/02/20 | | | (FLEXERIL) 10 mg | mouth every 6 hours | tablet | | 15 | 5 | | tablet | as needed for Muscle | | | | | | | spasms. | | | | | + + + +---------+ + + | diazepam (VALIUM) | Take 1 tablet by | 120 | 0 | 01/02/20 | | | 5 mg tablet | [...] + + + +---------+ + + | gabapentin | Take 1 capsule by | 90 | 11 | 12/20/19 | | | (NEURONTIN) 300 mg | mouth 3 times daily. | capsule | | 15 | 5 | | capsule | May increase to | | | | | | | 600mg TID after 3 | | | | | | | [...] tablet by | 120 | 0 | 01/02/20 | | | oxyCODONE-acetaminop | mouth every [...] | Office | | MD Michael [address] | | | | Visit | | Ed Lopes | | | | | | [place] [address] | | | | | | [phone] | | | | | | | | +--------+ + + + + documented as of this encounter Procedures + +--------+ + + + | Procedure Name | Priori | Date/Time | Associated Diagnosis | Comments | | | ty | | | | + +--------+ + + + | XR LUMBAR SPINE 2 [place] | Routin | 01/15/2015 | Status post lumbar | Results for this | | 3 VW | e | 9:29 AM | spinal fusion | procedure are in the | | [...] RADIOGRAPHS DECEMBER 13 AND SEPTEMBER 26 | [facility] | | FINDINGS: Five non rib-bearing, lumbar [...] | + + + + + | [facility] | [address] | [place] | [phone] | | [facility] | | [address] | | | - IMAGING | | | | + + + + + documented in this encounter Visit Diagnoses + + | Diagnosis | + + | Status post lumbar spinal fusion Arthrodesis status | + + documented in this encounter"
--- OUTSIDE RECORDS SUMMARY | ~2019-12-09 | XMS | Encounter Summary ---
Demographics + + + | Address | [address] | | | [place] [address] | + + + | Home Phone [...] + + + | Author | [facility] | | | and [place] | + + + | Organization | [facility] | | | [...] [place] | | | | | [address] | | + + + + + | Pratibha Hester | ECON | Unknown | + | + + + + + | Demian Powell | ECON | Unknown | + | + + + + + Care Team Providers + +------+ + | Care Power Reactor Operator Name | Role | Phone | + +------+ + | Quentin Manriquez PA-C | MARCK | | + +------+ + Encounter Details +--------+ + + + + | Date | Type | Department | Care Team | Description | +--------+ + + + + | 12/05/ | Hospital | [facility] | Sascha Mir, | Bilateral lumbar | | 2015 | Encounter | MED CTR | DO [address] | radiculopathy; HIP | | | | [facility] | [address] [place], [place] | PAIN, LEFT, CHRONIC; | | | | [address] | [address] | Spondylolisthesis | | | | [place] [address] | | of lumbar region | | | | [phone] | | L5-S1; Pars defect | | [...] 2019 | Office | | MD Michael [address] [place] [address] | | | | Visit | | Ed [address]opes | | | | | | [place] [address] | | | | | | [phone] | | | | | | | [...]
--- OUTSIDE RECORDS SUMMARY | ~2019-12-09 | XMS | Encounter Summary ---
Demographics + + + | Address | [address] | | | [place] [address] | + + + | Home Phone [...] [place] | | | | | [address] | | + + + + + | Pratibha Hester | ECON | Unknown | + | + + + + + | Demian Powell | ECON | Unknown | + | + + + + + Care Team Providers + +------+ + | Care Bank Vault Attendant Name | Role | Phone | + +------+ + | Jannette Boyle PA-C | PCP | | + +------+ + Encounter Details +--------+ + + + + | Date | Type | Department | Care Team | Description | +--------+ + + + + | 05/31/ | Orders Only | [facility] | Angelo Abrams, | | | 2018 | | CONVERSION 888 | MD [address] | | | | | [place] | [place], [place] | | | | | [place], [place] | [address] | | | | | [address] | | | | | | [phone] | | | +--------+ + + + [...] | Office | | MD Michael [address] | | | | Visit | | [address] | | | | | | [place] [address] | | | | | | [phone] | | | | | | | | +--------+ + + + + documented as of this encounter Procedures + +--------+ + + + | Procedure Name | Priori | Date/Time | Associated Diagnosis | Comments | | | ty | | | | + +--------+ + + + | ECHO INTERPRETATION | Routin | 05/31/2018 | | Results for this | | OF OUTSIDE FILMS | e | 3:32 PM | | procedure are in the | | | | PDT | | results section. | + +--------+ + + + documented in this encounter Results ECHO Interpretation of Outside Films (05/31/2018 3:32 PM PDT) + + | Specimen | + + | | + + + + + | Impressions | Performed At | + + + | 1. The left ventricle is normal in size, wall thickness and systolic | | | function EF 60-65%. 2. The right ventricle is normal in size and | | | function. 3. There is no pericardial effusion. | | + + + + + + | Narrative | Performed At | + + + | Patient Name: Demian Nina Date of : 1970 | | | Performing Physician: Itzel Mendoza | | | | | | INDICATIONS FAMILY HX CAD CONCLUSIONS | | | 1. The left ventricle is normal in size, wall thickness and systolic | | | function EF 60-65%. 2. The right ventricle is normal in size and | | | function. 3. There is no pericardial effusion. FINDINGS -------- | | | ECG rhythm: Sinus rhythm. Study: A 2-dimensional transthoracic | | | echocardiogram with m-mode, spectral and color flow Doppler was | | | perfomed. Study: This was a technically adequate study. Left | | | Ventricle: Overall left ventricular systolic function is normal with, | | | an EF between 60 - 65 %. Left Ventricle: The left ventricle cavity | | | size is normal. Left Ventricle: Left ventricular wall thickness is | | | normal. Left Ventricle: The diastolic filling pattern is normal for | | | the age of the patient. Right Ventricle: The right ventricle is | | | normal in size and function. Left Atrium: The left atrium is normal | | | in size. Right Atrium: The right atrium is normal in size. Aortic | | | Valve: The aortic valve is trileaflet. Aortic Valve: There is no | | | evidence of aortic regurgitation. Aortic Valve: There is no evidence | | | of aortic stenosis. Mitral Valve: Normal appearing mitral valve. | | | Mitral Valve: Mild mitral regurgitation is present. Tricuspid Valve: | | | The tricuspid valve appears structurally normal. Tricuspid Valve: | | | Pulmonary artery systolic pressure could not be assessed due to the | | | absence of adequate TR jet. Pulmonic Valve: Pulmonic valve appears | | | structurally normal. Pericardium: There is no pericardial effusion. | | | Pericardium: No pleural effusion seen. IVC/Hepatic Veins: The | | | inferior vena cava is normal in size and collapses > 50 % with sniff, | | | indicating normal central venous pressures. Aorta: The aortic root, | | | ascending aorta and aortic arch are normal. MEASUREMENTS | | | Ao asc: 3.26 cm Ao sinus: 3.[address] junct: | | | 2.91 cm LA Diam: 3.60 cm EDV(Teich): 87.88 ml IVSd: | | | 1.05 cm LVIDd: 4.40 cm LVPWd: 0.94 cm LVOT Area: 3.61 cm2 | | | LVOT Diam: 2.14 cm %FS: 30.32 % EF(Teich): 57.91 % | | | ESV(Teich): 36.98 ml LVIDs: 3.06 cm SV(Teich): 50.90 ml | | | RVIDd: 2.76 cm LVEF MOD A2C: 64.34 % SV MOD A2C: 88.33 ml | | | LVEF MOD A4C: 61.77 % SV MOD A4C: 93.52 ml EF Biplane: | | | 61.65 % LVEDV MOD BP: 143.86 ml LVESV MOD BP: 55.16 ml LVEDV | | | MOD A2C: 137.27 ml LVLd A2C: 7.70 cm LVEDV MOD A4C: 151.40 | | | ml LVLd A4C: 7.70 cm LVESV MOD A2C: 48.93 ml LVLs A2C: | | | 6.26 cm LVESV MOD A4C: 57.87 ml LVLs A4C: 5.76 cm LAESV(A-L): | | | 45.24 ml LAESV Index (A-L): 20.19 ml/m2 LAAs A2C: 13.00 | | | cm2 LAESV A-L A2C: 36.94 ml LALs A2C: 3.88 cm LAAs A4C: | | | 15.93 cm2 LAESV A-L A4C: 49.93 ml LALs A4C: 4.31 cm RAAs: | | | 10.82 cm2 RAESV A-L: 24.00 ml RAESV MOD: 22.53 ml RALs: | | | 4.14 cm TAPSE: 1.61 cm AV maxP.99 mmHg AV meanPG: | | | 6.27 mmHg AV Vmax: 1.73 m/s AV Vmean: 1.19 m/s AV VTI: | | | 27.27 cm SOLA Vmax: 2.35 cm2 SOLA (VTI): 2.65 cm2 AVAI (Vmax): | | | 0.00 cm2/m2 AVAI (VTI): 0.00 cm2/m2 LVOT maxP.08 mmHg | | | LVOT meanP.38 mmHg LVSI Dopp: 32.31 ml/m2 LVSV Dopp: | | | 72.37 ml LVOT Vmax: 1.12 m/s LVOT Vmean: 0.72 m/s LVOT VTI: | | | 20.04 cm MV A Ollie: 0.67 m/s MV Dec [place]: 3.90 m/s2 MV | | | DecT: 192.12 ms MV E Ollie: 0.75 m/s MV E/A Ratio: 1.11 MV | | | PHT: 55.71 ms MVA By PHT: 3.94 cm2 Septal e': 0.04 m/s | | | Septal E/e': 15.99 Lateral e': 0.06 m/s Lateral E/e': 11.01 | | | Check Out Cashier: MEME Authenticated by: Itzel Mendoza Report | | | Date/Time: 06-01-2018 19:30:56 | | + + + + + | Procedure Note | + + | Cedric, Rad Conversion - 03/29/2019 4:52 PM PDT Patient Name: Carmelita Nina of | | : 1970 Performing Physician: Itzel | | Kelly INDICATIONS------ | | -----FAMILY HX CAD CONCLUSIONS 1. The left ventricle is normal in size, wall | | thickness and systolic function EF 60-65%.2. The right ventricle is normal in size and | | function.3. There is no pericardial effusion. FINDINGS--------ECG rhythm: Sinus | | rhythm.Study: A 2-dimensional transthoracic echocardiogram with m-mode, spectral and | | color flow Doppler was perfomed.Study: This was a technically adequate study.Left | | Ventricle: Overall left ventricular systolic function is normal with, an EF between 60 - | | 65 %.Left Ventricle: The left ventricle cavity size is normal.Left Ventricle: Left | | ventricular wall thickness is normal.Left Ventricle: The diastolic filling pattern is | | normal for the age of the patient.Right Ventricle: The right ventricle is normal in size | | and function.Left Atrium: The left atrium is normal in size.Right Atrium: The right | | atrium is normal in size.Aortic Valve: The aortic valve is trileaflet.Aortic Valve: | | There is no evidence of aortic regurgitation.Aortic Valve: There is no evidence of | | aortic stenosis.Mitral Valve: Normal appearing mitral valve.Mitral Valve: Mild mitral | | regurgitation is present.Tricuspid Valve: The tricuspid valve appears structurally | | normal.Tricuspid Valve: Pulmonary artery systolic pressure could not be assessed due to | | the absence of adequate TR jet.Pulmonic Valve: Pulmonic valve appears structurally | | normal.Pericardium: There is no pericardial effusion.Pericardium: No pleural effusion | | seen.IVC/Hepatic Veins: The inferior vena cava is normal in size and collapses > 50 % | | with sniff, indicating normal central venous pressures.Aorta: The aortic root, ascending | | aorta and aortic arch are normal. MEASUREMENTS Ao asc: 3.26 cmAo sinus: | | 3.[address] junct: 2.91 cmLA Diam: 3.60 cmEDV(Teich): 87.88 mlIVSd: 1.05 | | cmLVIDd: 4.40 cmLVPWd: 0.94 cmLVOT Area: 3.61 [id number] Diam: 2.14 cm%FS: 30.32 | | %EF(Teich): 57.91 %ESV(Teich): 36.98 mlLVIDs: 3.06 cmSV(Teich): 50.90 mlRVIDd: | | 2.76 cmLVEF MOD A2C: 64.34 %SV MOD A2C: 88.33 mlLVEF MOD A4C: 61.77 %SV MOD A4C: | | 93.52 mlEF Biplane: 61.65 %LVEDV MOD BP: 143.86 mlLVESV MOD BP: 55.16 mlLVEDV | | MOD A2C: 137.27 mlLVLd A2C: 7.70 cmLVEDV MOD A4C: 151.40 mlLVLd A4C: 7.70 | | cmLVESV MOD A2C: 48.93 mlLVLs A2C: 6.26 cmLVESV MOD A4C: 57.87 mlLVLs A4C: 5.76 | | cmLAESV(A-L): 45.24 mlLAESV Index (A-L): 20.19 ml/m2LAAs A2C: 13.00 [id number] A-L | | A2C: 36.94 mlLALs A2C: 3.88 cmLAAs A4C: 15.93 [id number] A-L A4C: 49.93 mlLALs | | A4C: 4.31 cmRAAs: 10.82 [id number] A-L: 24.00 mlRAESV MOD: 22.53 mlRALs: 4.14 | | cmTAPSE: 1.61 cmAV maxP.99 mmHgAV meanP.27 mmHgAV Vmax: 1.73 m/Trang | | Vmean: 1.19 m/Trang VTI: 27.27 cmAVA Vmax: 2.35 cm2AVA (VTI): 2.65 [id number] (Vmax): | | 0.00 cm2/m2AVAI (VTI): 0.00 cm2/m2LVOT maxP.08 mmHgLVOT meanP.38 | | mmHgLVSI Dopp: 32.31 ml/m2LVSV Dopp: 72.37 mlLVOT Vmax: 1.12 m/sLVOT Vmean: 0.72 | | m/sLVOT VTI: 20.04 cmMV A Ollie: 0.67 m/sMV Dec [place]: 3.90 m/s2MV DecT: 192.12 | | msMV E Ollie: 0.75 m/sMV E/A Ratio: 1.11MV PHT: 55.71 msMVA By PHT: 3.94 [id number] | | e': 0.04 m/sSeptal E/e': 15.99Lateral e': 0.06 m/sLateral E/e': 11.01 | | Check Out Cashier: DBSAuthenticated by: Itzel Dee Date/Time: 06-01-2018 19:30:56 | | IMPRESSION: 1. The left ventricle is normal in size, wall thickness and systolic | | function EF 60-65%.2. The right ventricle is normal in size and function.3. There is no | | pericardial effusion. | | | |Ao asc: 3.26 cm | |Ao sinus: 3.46 cm | |Ao st junct: 2.91 cm | |LA Diam: 3.60 cm | |EDV(Teich): 87.88 ml | |IVSd: 1.05 cm | |LVIDd: 4.40 cm | |LVPWd: 0.94 cm | |LVOT Area: 3.61 cm2 | |LVOT Diam: 2.14 cm | |%FS: 30.32 % | |EF(Teich): 57.91 % | |ESV(Teich): 36.98 ml | |LVIDs: 3.06 cm | |SV(Teich): 50.90 ml | |RVIDd: 2.76 cm | |LVEF MOD A2C: 64.34 % | |SV MOD A2C: 88.33 ml | |LVEF MOD A4C: 61.77 % | |SV MOD A4C: 93.52 ml | |EF Biplane: 61.65 % | |LVEDV MOD BP: 143.86 ml | |LVESV MOD BP: 55.16 ml | |LVEDV MOD A2C: 137.27 ml | |LVLd A2C: 7.70 cm | |LVEDV MOD A4C: 151.40 ml | |LVLd A4C: 7.70 cm | |LVESV MOD A2C: 48.93 ml | |LVLs A2C: 6.26 cm | |LVESV MOD A4C: 57.87 ml | |LVLs A4C: 5.76 cm | |LAESV(A-L): 45.24 ml | |LAESV Index (A-L): 20.19 ml/m2 | |LAAs A2C: 13.00 cm2 | |LAESV A-L A2C: 36.94 ml | |LALs A2C: 3.88 cm | |LAAs A4C: 15.93 cm2 | |LAESV A-L A4C: 49.93 ml | |LALs A4C: 4.31 cm | |RAAs: 10.82 cm2 | |RAESV A-L: 24.00 ml | |RAESV MOD: 22.53 ml | |RALs: 4.14 cm | |TAPSE: 1.61 cm | |AV maxP.99 mmHg | |AV meanP.27 mmHg | |AV Vmax: 1.73 m/s | |AV Vmean: 1.19 m/s | |AV VTI: 27.27 cm | |SOLA Vmax: 2.35 cm2 | |SOLA (VTI): 2.65 cm2 | |AVAI (Vmax): 0.00 cm2/m2 | |AVAI (VTI): 0.00 cm2/m2 | |LVOT maxP.08 mmHg | |LVOT meanP.38 mmHg | |LVSI Dopp: 32.31 ml/m2 | |LVSV Dopp: 72.37 ml | |LVOT Vmax: 1.12 m/s | |LVOT Vmean: 0.72 m/s | |LVOT VTI: 20.04 cm | |MV A Ollie: 0.67 m/s | |MV Dec [place]: 3.90 m/s2 | |MV DecT: 192.12 ms | |MV E Ollie: 0.75 m/s | |MV E/A Ratio: 1.11 | |MV PHT: 55.71 ms | |MVA By PHT: 3.94 cm2 | |Septal e': 0.04 m/s | |Septal E/e': 15.99 | |Lateral e': 0.06 m/s | |Lateral E/e': 11.01 | | | |Check Out Cashier: DBS | |Authenticated by: Itzel Mendoza | |Report Date/Time: 06-01-2018 19:30:56 | | | |IMPRESSION: | |1. The left ventricle is normal in size, wall thickness and systolic function EF 60-65%. | |2. The right ventricle is normal in size and function. | |3. There is no pericardial effusion. | + + documented in this encounter Visit Diagnoses Not on filedocumented in this encounter"
--- OUTSIDE RECORDS SUMMARY | ~2019-12-09 | XMS | Encounter Summary ---
Demographics + + + | Address | [address] | | | [place] [address] | + + + | Home Phone [...] | Author | [facility] | + + + | Organization | [facility] | + + + | Address | Unknown | + + + | Phone | Unavailable | + + + Support + + +---------+ + | Name | Relationship | Address | Phone | + + +---------+ + | Alisia Nina | ECON | Unknown | | + + +---------+ + Care Team Providers + +------+ + | Care Latent Print Examiner Name | Role | Phone | + +------+ + | Quentin Manriquez | PCP | | + +------+ + Reason for Visit AUTH/CERT +--------+--------+ + + + + | Status | Reason | Specialty | Diagnoses / | Referred By | Referred To | | | | | Procedures | Contact | Contact | +--------+--------+ + + + + | | | | | | | +--------+--------+ + + + + Encounter Details +--------+ + + + + | Date | Type | Department | Care Team | Description | +--------+ + + + + | 03/06/ | Hospital | Multi-Specialty | Ehsan Cotto MD | | | 2019 | Encounter | Procedural Unit | [address] | | | | | ([facility] at [facility] [address] | [facility] | | | | | Jennifer [address] | [place], [place] | | | | | Mailcode: [place] | [address] | | | | | [facility] and | [phone] | | | | | [facility] | | | | | | [place], [place] | | | | | | [address] | | | | | | [phone] | | | +--------+ + + + [...] + + + +---------+ + + | peg-electrolyte | Take 6000ml total | 8000 mL | 0 | 03/01/ | | | [id number] [phone] | (1.5 jugs) by mouth | | | 19 | | | gram oral recon | starting on the day | | | | | | soln | prior to colonoscopy | | | | | | | as directed by | | | | | | | WHITNEY. Discard | | | | | | | remaining half jug. | | | | | | | Indications: Bowel | | | | | | | Evacuation | | | | | + + [...] | | | | | | [place] [address] | | | | | | [phone] | | | | | | | | +--------+ + + + + | 01/10/ | Appointment | Gastroenterology | Guillermo Quach MD | | | 2019 | | | [address] | | | | | | [place] | | | | | | [place] [address] | | | | | | [phone] | | | | | | | | +--------+ + + + + documented as of this encounter Visit Diagnoses + + | Diagnosis | + + | Nausea - Primary Nausea alone | + + | History of pancreatitis Personal history of other diseases of digestive system | + + | Other chronic pain | + + | Morbid obesity (HCC) Morbid obesity | + + documented in this encounter"
--- OUTSIDE RECORDS SUMMARY | ~2019-12-09 | XMS | Encounter Summary ---
Demographics + + + | Address | [address] | | | [place] [address] | + + + | Home Phone | | + + + | Preferred Language | Unknown | + + + | Marital Status | Single | + + + | Zoroastrianism Affiliation | [id number] | + + + | Race | Unknown | + + + | Ethnic Group | Unknown | + + + Author + + + | Author | [facility] | | | and [place] | + + + | Organization | [facility] | | | and [...] [place] | | | | | [address] | | + + + + + | Pratibha Hester | ECON | Unknown | + | + + + + + | Demian Powell | ECON | Unknown | + | + + + + + Care Team Providers + +------+ + | Care Aerial Gunner Superintendent Name | Role | Phone | + +------+ + PCP | Unavailable | + +------+ + Encounter Details +--------+ + + + + | Date | Type | Department | Care Team | Description | +--------+ + + + + | 05/23/ | Hospital | [facility] | | | | 1999 | Encounter | [facility] | | | | | | [address] | | | | | | [place] | | | | | | [address] | | | | | | [phone] | | | +--------+ + + + [...] 2019 | Office | | MD Michael [address] [place] [address] | | | | Visit | | [address] | | | | | | [place] [address] | | | | | | [phone] | | | | | | | | +--------+ + + + + documented as of this encounter Visit Diagnoses Not on filedocumented in this encounter"
--- OUTSIDE RECORDS SUMMARY | ~2019-12-09 | XMS | Encounter Summary ---
Demographics + + + | Address | [address] | | | [place] [address] | + + + | Home Phone [...] Author + + + | Author | [facility] | + + + | Organization | [facility] | + + + | Address | Unknown | + + + | Phone | Unavailable | + + + Support + + +---------+ + | Name | Relationship | Address | Phone | + + +---------+ + | Alisia Nina | ECON | Unknown | | + + +---------+ + Care Team Providers + +------+ + | Care Pit Inspector Name | Role | Phone | + +------+ + | Gracie Lewis PA-C | PCP | | + +------+ + Encounter Details +--------+ + + + + | Date | Type | Department | Care Team | Description | +--------+ + + + + | 05/03/ | Documentati | Digestive Health | Clinic, Surgery | | | 2019 | on | Center at [facility] [address] | | | | | | Jennifer [address] | | | | | | Mailcode: [facility] | | | | [facility] | | | | | | [facility], [address] | | | | | | [facility] [place] | | | | | | [address] | | | | | | [phone] | | | +--------+ + + + [...] | | | | | | [place] [address] | | | | | | [phone] | | | | | | | | +--------+ + + + + | 01/10/ | Appointment | Gastroenterology | Guillermo Quach MD | | | 2019 | | | [address] | | | | | | [place] | | | | | | [place] [address] | | | | | | [phone] | | | | | | | | +--------+ + + + + documented as of this encounter Visit Diagnoses Not on filedocumented in this encounter"
--- OUTSIDE RECORDS SUMMARY | ~2019-12-09 | XMS | Encounter Summary ---
Demographics + + + | Address | [address] | | | [place] [address] | + + + | Home Phone | | + + + | Preferred Language | Unknown | + + + | Marital Status | Single | + + + | Scientologist Affiliation | CAT | + + + [...] Team Providers + +------+ + | Care Wood Technologist Name | Role | Phone | + +------+ + | Gracie Lewis PA-C | PCP | | + +------+ + Reason for Referral Consultation (Routine) + +--------+ + + + + | Status | Reason | Specialty | Diagnoses / | Referred By | Referred To | | | | | Procedures | Contact | Contact | + +--------+ + + + + | Authorized | | Sleep | Diagnoses | Berna, | | | | | Medicine | | Jen Gross, | | | | | | Gastroesopha | AGACNP [address] | | | | | | geal reflux | [address] | | | | | | disease, | [place], | | | | | | esophagitis | [place] | | | | | | presence not | [phone] | | | | | | specified | Phone: | | | | | | Severe | [phone] | | | | | | obesity | Fax: | | | | | | ([facility]) Type | [phone] | | | | | | 2 diabetes | | | | | | | mellitus | | | | | | | without | | | | | | | complication | | | | | | | , with | | | | | | | long-term | | | | | | | current use | | | | | | | of insulin | | | | | | | ([facility]) Hx of | | | | | | | | | | | | | | degenerative | | | | | | | disc | | | | | | | disease | | | | | | | Procedures | | | | | | | CONSULT TO | | | | | | | ADULT SLEEP | | | | | | | MEDICINE | | | + +--------+ + + + + Consultation (Routine) +--------+---------+ + + + + | Status | Reason | Specialty | Diagnoses / | Referred By | Referred To | | | | | Procedures | Contact | Contact | +--------+---------+ + + + + | Closed | Other | Pain | Diagnoses | Berna, | 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 | | | | 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 | | Jen Gross, | [facility] [address] | | | | | Gastroesopha | AGACNP [address] | | | | | geal reflux | [address] | Mailcode: | | | | | disease, | [place], | [facility] | | | | | esophagitis | [place] | for Health | | | | | presence not | [phone] | and Healing, | | | | | specified | Phone: | Building [address], | | | | | Severe | | [address]th Floor | | | | | obesity | Fax: | [place], [place] | | | | | ([facility]) Type | [phone] | [address] | | | | | 2 diabetes | | Phone: | | | | | mellitus | | [phone] | | | | | without | | Fax: | | | | | complication | | [phone] | | | | | , with | | | | | | | long-term | | | | | | | current use | | | | | | | of insulin | | | | | | | (HCC) Hx of | | | | | | | | | | | | | | degenerative | | | | | | | disc | | | | | | | disease | | | | | | | Procedures | | | | | | | CONSULT TO | | | | | | | PAIN | | | | | | | MANAGEMENT | | | +--------+---------+ + + + + Reason for Visit Intake Referral (Routine) +--------+ + + + + + | Status | Reason | Specialty | Diagnoses / | Referred By | Referred To | | | | | Procedures | Contact | Contact | +--------+ + + + + + | Closed | BAR: | Surgery | Diagnoses | Joshua, | Isak, | | | Scheduled | | Morbid | Gracie Villa, | Satinder Capellan MD | | | 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 | | (severe) | PA-C | [address] | | | | | obesity due | [address] | [address] | | | | | to excess | [place] | [place], [place] | | | | | calories | Health | [address] | | | | | Obesity, | Center [address] | Phone: | | | | | unspecified | | [phone] | | | | | | [address] | Fax: | | | | | | Way [address] | [phone] | | | | | | [address] | | | | | | | [place], | | | | | | | [place] [address] | | | | | | | Phone: | | | | | | | [phone] | | | | | | | Fax: | | | | | | | [phone] | | +--------+ + + + + + Encounter Details +--------+---------+ + + + | Date | Type | Department | Care Team | Description | +--------+---------+ + + + | 06/27/ | Office | Digestive Health | Isra Coronelll Ginny, | Severe obesity (HCC) | | 2019 | Visit | [facility] at [facility] [address] | AGACNP [address] | (Primary Dx); | | | | [address] | Ave [place], [place] | Gastroesophageal | | | | Mailcode: Center | [address] | reflux disease, | | | | for Health and | [phone] | esophagitis presence | | | | Healing, [address] | | not specified; Type | | | | [place], [place] | | 2 diabetes mellitus | | | | [address] | | without | | | | | | complication, with | | | | | | long-term current | | | | | | 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 | | | | | | (HCC); Hx of | | | | | | degenerative disc | | | | | | disease | +--------+---------+ + + + Social History [...] + + + | Blood Pressure | 119/70 | 06/27/2019 12:44 PM | | | | | PST | | + + + + + | Pulse | 87 | 06/27/2019 12:44 PM | | | | | PST | | + + + + + | Temperature | 36.9 C (98.4 F) | 06/27/2019 12:44 PM | | | | | PST | | + + + + + | Respiratory Rate | 14 | 06/27/2019 12:44 PM | | | | | PST | | + + + + + | Oxygen Saturation | 99% | 06/27/2019 12:44 PM | | | | | PST | | + + + + + | Inhaled Oxygen | - | - | | | Concentration | | | | + + + + + | Weight | 114 kg (251 lb 6.4 | 06/27/2019 12:44 PM | | | | oz) | PST | | + + + + + | Height | 162.6 cm (5' 4") | 06/27/2019 12:44 PM | | | | | PST | | + + + + + | Body Mass Index | 43.15 | 06/27/2019 12:44 PM | | | | | PST | | + + + + + documented in this encounter Patient Instructions Patient Instructions Jen Coronel, AGACNP - 06/27/2019 12:50 PM PST + Dietitian consultation + Physical therapy referral for Bariatric Surgery Prehabilitation. During this visit they w ill assess your muscle strength and design a exercise program for you. + We would like you to begin taking a multivitamin, one containing magnesium, if you haven' t already. Here are 3 inexpensive and widely available choices : -Centrum for Adults -Equate version of [facility] -[place] daily multivitamin + Labs needed: CBC, CMP, A1C, PTH, Vitamin D25, Vitamin B12, Ferritin, Iron and TIBC, li pid set. Please go to the 1st floor and have these labs done. + control: The patient and I discussed that fertility is MARKEDLY increased after chay santiago due to rapid weight loss. Please consider using an effective form of control that does not have estrogen ( most control pills and the Nuva Ring have estrogen). Estroge n can be a risk factor for blood clots in legs or lungs. We do not want you to become pregna nt the first two years after surgery as it can harm the unborn baby. This is why we recommen d not getting in the first two years after bariatric surgery. The patient voiced an d understanding of the risk and counseling. + Pap test: Please obtain thru your primary care and we want to see the lab result from th e PAP smear. (not the note from your provider) + Mammogram: Have your primary care provider order, and send the radiology report to us by fax. + EKG: Please have your primary care order this and send us a copy when complete for pre-op purposes + Pre-op Psychological Evaluation: Your referral is at [facility], the Pain Management Office w ill call you in the next week to schedule. + Hemoglobin A1C will have to be below 8 prior to surgery. + Weight Management classes: 2 classes are required in addition to your private appointme nt with the physician obstetrician. These classes will be scheduled apporoximately 1 month apart to allow time for you to put the teaching into action. Please call [phone] to schedule these classes after you have had your Dietitia n Appointment. Ask for Lily in bariatrics. + Insurance requirements: your insurance requires : 6 month evaluation period Each insurance can have different requirements. Please CHECK with your insurance company to be sure you are meeting their requirements Please be aware that the pre-surgery work up is a highly individualized process. It could t suman up to 6-12 months to complete. It is important you stay on top of your homework list to avoid even longer delays to surger y. + Recommended weight loss: Every patient has a individual weight loss target. It takes int o consideration your current weight and BMI. Your target most likely will be different than anyone elses target. If your BMI is less than 50 then your recommended weight loss target is : 5% of your current weight today or 12 pounds We have discussed principles of healthy diet and lifestyle. The patient has seen our [facility] physician obstetrician and physical therapy colleagues to discuss exercise and diet goals. Patient is encouraged to continue healthy habits in the pre-op period and to contact our clinic if pre -op concerns arise. We are here to help! Some people will need to lose more weight than that, in order for surgery to be safely comp leted. You can over eat ANY of the surgeries. The surgery is a tool with diet and exercise to help you obtain a healthy weight. + Sign up for [employer] so that we can communicate easily back and forth Once the above list is completed and copies have been received by our office, we will submi t for insurance authorization then schedule with the surgeon. Potential Contraindications to Bariatric Surgery Age over 69 BMI over 60 Oxygen dependence Immobility wheelchair or bed bound Cardiac issues such as ischemic heart disease as indicated on cardiac stress test or cardia c catheterization; severe or uncompensated heart failure which may be indicated by a decreas ed ejection fraction. Pulmonary issues such as untreated sleep apnea, obesity hypoventilation syndrome, severe [place] PD or asthma. Liver disease such as cirrhosis, esophageal varices, or portal hypertension. Severe, untreated renal disease. Rheumatologic and other diseases requiring immune suppressant medications. Untreated or active cancer. Untreated psychological disability. If you have any of the above conditions, you may not be a candidate for bariatric surgery. Our program will perform a thorough evaluation prior to making such a determination. This evaluation may involve testing or consultations. We will make every effort to notify patien ts who are not candidates for surgery as early in the process as possible, but it is importa nt to realize that the surgeon may make that determination later in the process. Clearance for surgery by your PCP or other providers does not guarantee that the [facility] Bariatric Surger y program will deem you a surgical candidate. documented in this encounter Progress Notes Jen Coronel AGACNP - 06/27/2019 12:50 PM PSTFormatting of this note might be differen t from the original. BARIATRIC SURGERY INITIAL VISIT Provider: Jen Coronel, MSN, AG-ACNP Referring Provider: Gracie Lewis MD Reason for Requested Consultation: Initial evaluation for bariatric surgery. [place] Yolanda He rrera is interested in gastric banding. 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 She has lost 15 lbs in the last few months --started taking metformin, eating more chicken, and walking more at school (she is currentl y a student). BP 119/70 (BP Location: Left upper arm, Patient Position: Sitting) | Pulse 87 | Temp 36.9 C (98.4 F) (Oral) | Resp 14 | Ht 1.626 m (5' 4") | Wt 114 kg (251 lb 6.4 oz) | SpO2 99% | BMI 43.15 kg/m | BSA 2.27 m History of Present Illness: Demian Nina is a 49 y.o. female who presents with a [facility] medical history of morbid obesity with a Body mass index is 43.15 kg/m. and associated Type 2 diabetes, asthma, osteoarthritis, intertrigenous skin infections, GERD (gastroesophag eal reflux disease), hypertension and hyperlipidemia. She has failed prior attempts at sust ained dietary/medical weight loss and desires surgical weight loss in order to "150lbs to lo se 200+lbs". Previous Weight Loss Attempts: Duration of obesity: 40 years. Onset of obesity at age 10 First diet attempts at age "did not diet" Personally initiated diets: Programmatic diets: Provider Monitored diet: was given pills from a doctor Use of Redux or Phen/fen: no Transthoracic ECHO: na Scientologist or cultural reason you would refuse blood products? no All previous chart notes from PCP reviewed, previous tests and labs reviewed. Allergies: Allergies Allergen Reactions Procainamide Hcl Anaphylaxis Allergic to anesthetics Dilaudid [Hydromorphone (Bulk)] Pruritus Morphine Pruritus Medications Current Outpatient Medications: atorvastatin 20 mg oral tablet, , Disp: , Rfl: cholecalciferol (Vitamin D3) (VITAMIN D3) 1,000 unit oral tablet, Take by mouth., Disp: , R fl: lisinopril 10 mg oral tablet, Take 10 mg by mouth once daily., Disp: , Rfl: loratadine 10 mg oral capsule, Take by mouth., Disp: , Rfl: losartan 25 mg oral tablet, , Disp: , Rfl: meclizine 25 mg oral tablet, Take 25 mg by mouth., Disp: , Rfl: METFORMIN HCL (METFORMIN ORAL), Take by mouth., Disp: , Rfl: methocarbamol 500 mg oral tablet, , Disp: , Rfl: Mometasone 220 mcg (30 doses) inhalation aerosol powdr breath activated, Inhale 1 puff once daily., Disp: , Rfl: montelukast 10 mg oral tablet, Take 10 mg by mouth once daily in the evening., Disp: , Rfl: naproxen 250 mg oral tablet, Take 250 mg by mouth., Disp: , Rfl: omeprazole 20 mg oral capsule,delayed release(DR/EC), Take 20 mg by mouth once daily., Disp : , Rfl: peg-electrolyte 236-22.74-6.74 -5.86 gram oral recon soln, Take 6000ml total (1.5 jugs) by mouth starting on the day prior to colonoscopy as directed by [facility]. Discard remaining half jug. Indications: Bowel Evacuation, Disp: 8000 mL, Rfl: 0 terbinafine 250 mg oral tablet, Take 250 mg by mouth once daily., Disp: , Rfl: VICTOZA 2-LAUREANO 0.6 mg/0.1 mL (18 mg/3 mL) subcutaneous pen injector, , Disp: , Rfl: History: Past Medical History: Diagnosis Date Abdominal pain Anxiety Chest pain Diabetes mellitus (HCC) Fainting Gallstones Gastric ulcer GERD (gastroesophageal reflux disease) Hx of degenerative disc disease Irregular periods Kidney disease Liver disease N&V (nausea and vomiting) Past Surgical History Procedure Laterality Date Rotator cuff surgery Cholecystectomy C section C section Social History Socioeconomic History Marital status: Single Spouse name: Not on file Number of children: Not on file Years of education: Not on file Highest education level: Not on file Occupational History Not on file Social Needs Financial resource strain: Not on file Food insecurity: Worry: Not on file Inability: Not on file Transportation needs: Medical: Not on file Non-medical: Not on file Tobacco Use Smoking status: Former Smoker Smokeless tobacco: Never Used Substance and Sexual Activity Alcohol use: No Drug use: No Sexual activity: Not on file Lifestyle Physical activity: Days per week: Not on file Minutes per session: Not on file Stress: Not on file Relationships Social connections: Talks on phone: Not on file Gets together: Not on file Attends latter-day service: Not on file Active member of club or organization: Not on file Attends meetings of clubs or organizations: Not on file Relationship status: Not on file Other Topics Concern Not on file Social History Narrative Not on file Family History Problem Relation Cancer Mother Heart Attack Father Cause of Review of Systems: General: Denies symptoms of fatigue, weakness, unintentional weight loss, fevers, chills, night sweats. Neurologic: The patient denies any symptoms of neurological impairment or TIAs; denies dip lopia, dysphasia or unilateral disturbance of motor or sensory function. Denies loss of rudy nce or vertigo, persistent headaches, numbness or paresthesias. No history of seizure disord er. Eyes/Ears/Nose/Throat: Denies visual changes, sore throat, dental pain, hoarseness, dyspha trace, oral or tongue lesions. Respiratory: SOB on exertion, Denies SOB at rest, cough or wheezing. Denies nocturnal snor ing, daytime drowsiness or morning headaches. Asthma-montelukast daily. Has never been teste d for sleep apnea STOP-BANG Questionnaire Please answer the following questions below to determine risk for sleep apnea (based upon p atient history) 1. Do you Snore loudly? (louder than talking or loud enough to be heard through closed door s) No 2. Do you often feel Tired, fatigued, or sleepy during the daytime? Yes 3. Has anyone Observed you stop breathing during your sleep? No 4. Do you have or are being treated for high blood Pressure? Yes 5. Body mass index more than 35? Yes 6. Age older than 50? No 7. Do you have a Neck that measures more than 16 inches / 40 cm around (measure at [facility])? Yes 8. Gender = Male? No High risk of sleep apnea if "yes' to four or more Cardiovascular: HTN on losartan, HLD--on statin Denies exertional chest pain, palpitations, syncope, orthopnea, or paroxysmal nocturnal dy spnea. Denies history of lower extremity edema, . Denies CHF, ME, ischemic heart disease, DV T/PE, or pulmonary hypertension. States able to climb two flights of stairs. Family hx:uncle ar Gastrointestinal: GERD on omeprazole. Reports history of ulcer in 1990--just treated with prilosec. Denies abdominal or flank pain, anorexia, nausea or vomiting, dysphagia, change in bowel habits, black or bloody stools. Denies history of hernias. Denies history of liver disease or jaundice. Abd surgeries: 2 c sections, sp desire 2015 Genitourinary: Denies urinary incontinence. Denies history of kidney stones. Denies PCOS, menstrual irregularity, history of endometriosis or abnormal PAP's. Current method of control is: not sexually active. Musculoskeletal: chronic low back pain, DDD-robaxin, ibuprofen/tylenol/tanazadine. Also on "nerve pain" medication that she cannot recall name of. Denies symptoms of joint pain, swel ling, myalgias. Skin: intertrigenous skin infections. Denies recent rashes, sores, or skin changes. Psychological: anxiety--feels self controlled Denies depression, bipolar. Denies thoughts o f suicide or hallucinations. Heme/Lymphatic: Denies history of anemia. The patient denies abnormal bruising, abnormal b leeding or enlarged lymph nodes. Metabolic: Denies symptoms of hypo or hyperthyroidism. DM victoza, insulin--glargine, NovoL og at meals, last a1c was 10.2 in January. She says "I am addicted to coke" has 3 cans daily. h ad a diabetic coma last year-- Denies history of gout. OBJECTIVE BP 119/70 (BP Location: Left upper arm, Patient Position: Sitting) | Pulse 87 | Temp 36.9 C (98.4 F) (Oral) | Resp 14 | Ht 1.626 m (5' 4") | Wt 114 kg (251 lb 6.4 oz) | SpO2 99% | BMI 43.15 kg/m | BSA 2.27 m Physical exam: General: Alert and cooperative. Neuro: Oriented x 3. CN III-XII grossly intact. No focal deficits. HEENT: Oropharynx clear without lesion or exudate. Neck: Neck supple. No adenopathy. Respiratory: Good diaphragmatic excursion. Cardiac: Regular rate and rhythm, no murmur, gallop or bruits. Extremities: no lower extremity edema. Abdomen: Obese, soft, nontender, no appreciable masses or hernia. Psych: No problems noted. ECHO 2018 Result Impression 1. The left ventricle is normal in size, wall thickness and systolic function EF 60-65%. 2. The right ventricle is normal in size and function. 3. There is no pericardial effusion. Impression: Demian Nina meets and or exceeds NIH criteria for morbid obesity with a Body mass index is 43.15 kg/m. and comorbidities related to obesity including Type 2 diabetes, sleep apnea, asthma, osteoarthritis, intertrigenous skin infections, hypertension and hyperlipide leslye, which may be improved with bariatric surgery. Records have been reviewed from her PCM and several attempts have been made to lose weight over the past years without success. She qualifies for medically necessary weight loss surgery to control co-morbidities. She has attended the Public Informational Session in which risks and benefits of bariatric surgery were discussed. Discussion of realistic expectations of bariatric surgery was held today. A Bariatric notebook with pre-op, inter-op and post-op guidance and information was provide d for the patient today. Patient will be presented to the bariatric multidisciplinary meeting for case review #severe obesity -BMI 43 -5% weight loss #?juliana -external consult ordered -ok to do this locally in [place] -Is a stomach sleeper, may not tolerate CPAP bc of this if she indeed does have apnea but w ould like to get a baseline if she has apnea or not. #htn -lisinopril/losartan #hld -statin #uncontrolled DM -last a1c 10.2 -stressed importance of med compliance and getting a1c below 8 -pt mentions her addiction to soda. This will be addressed in RD visit as well as psych #GERD -rx'd omeprazole, was on ranitidine and had breakthru sx -Pt counseled on the possible risk of GERD symptoms after sleeve gastrectomy #DDD/chronic back pain -nsaids, muscle relaxers -Counseled on the risk of marginal ulcers with RYGB and the need to abstain from NSAIDs pos t surgery as these increase risk of ulcers. Plan: The following plan has been provided to Demian Nina: Preoperative Evaluation for Bariatric Surgery: +patient willing and able to be compliant with post operative treatment plan + Dietitian consultation + Physical therapy referral for Bariatric Surgery Prehabilitation. During this visit they w ill assess your muscle strength and design a exercise program for you. + We would like you to begin taking a multivitamin, one containing magnesium, if you haven' t already. Here are 3 inexpensive and widely available choices : -Centrum for Adults -Equate version of [facility] -[place] daily multivitamin + Labs needed: CBC, CMP, A1C, PTH, Vitamin D25, Vitamin B12, Ferritin, Iron and TIBC, li pid set. Please go to the 1st floor and have these labs done. + control: The patient and I discussed that fertility is MARKEDLY increased after chay santiago due to rapid weight loss. Please consider using an effective form of control that does not have estrogen ( most control pills and the Nuva Ring have estrogen). Estroge n can be a risk factor for blood clots in legs or lungs. We do not want you to become pregna nt the first two years after surgery as it can harm the unborn baby. This is why we recommen d not getting in the first two years after bariatric surgery. The patient voiced an d understanding of the risk and counseling. + Pap test: Please obtain thru your primary care and we want to see the lab result from e PAP smear. (not the note from your provider) + Mammogram: Have your primary care provider order, and send the radiology report to us by fax. + EKG: Please have your primary care order this and send us a copy when complete for pre-op purposes + Pre-op Psychological Evaluation: Your referral is at [facility], the Pain Management Office w ill call you in the next week to schedule. + Hemoglobin A1C will have to be below 8 prior to surgery. + Weight Management classes: 2 classes are required in addition to your private appointme nt with the physician obstetrician. These classes will be scheduled apporoximately 1 month apart to allow time for you to put the teaching into action. Please call [phone] to schedule these classes after you have had your Dietitia n Appointment. Ask for Lily in bariatrics. + Insurance requirements: your insurance requires : 6 month evaluation period Each insurance can have different requirements. Please CHECK with your insurance company to be sure you are meeting their requirements Please be aware that the pre-surgery work up is a highly individualized process. It could t suman up to 6-12 months to complete. It is important you stay on top of your homework list to avoid even longer delays to surger y. + Recommended weight loss: Every patient has a individual weight loss target. It takes int o consideration your current weight and BMI. Your target most likely will be different than anyone elses target. If your BMI is less than 50 then your recommended weight loss target is : 5% of your current weight today or 12 pounds We have discussed principles of healthy diet and lifestyle. The patient has seen our [facility] physician obstetrician and physical therapy colleagues to discuss exercise and diet goals. Patient is encouraged to continue healthy habits in the pre-op period and to contact our clinic if pre -op concerns arise. We are here to help! Some people will need to lose more weight than that, in order for surgery to be safely comp leted. You can over eat ANY of the surgeries. The surgery is a tool with diet and exercise to help you obtain a healthy weight. + Sign up for Quividi so that we can communicate easily back and forth Once the above list is completed and copies have been received by our office, we will submi t for insurance authorization then schedule with the surgeon. Potential Contraindications to Bariatric Surgery Age over 69 BMI over 60 Oxygen dependence Immobility wheelchair or bed bound Cardiac issues such as ischemic heart disease as indicated on cardiac stress test or cardia c catheterization; severe or uncompensated heart failure which may be indicated by a decreas ed ejection fraction. Pulmonary issues such as untreated sleep apnea, obesity hypoventilation syndrome, severe CO PD or asthma. Liver disease such as cirrhosis, esophageal varices, or portal hypertension. Severe, untreated renal disease. Rheumatologic and other diseases requiring immune suppressant medications. Untreated or active cancer. Untreated psychological disability. If you have any of the above conditions, you may not be a candidate for bariatric surgery. Our program will perform a thorough evaluation prior to making such a determination. This evaluation may involve testing or consultations. We will make every effort to notify patien ts who are not candidates for surgery as early in the process as possible, but it is importa nt to realize that the surgeon may make that determination later in the process. Clearance for surgery by your PCP or other providers does not guarantee that the [facility] Bariatric Surger y program will deem you a surgical candidate. I have spent 55 min with this pt face to face. Over 50% of the visit was counseling on the above listed content. ? I have also spent > 31 min prior to this visit performing chart review of the patients prim guerrero care notes, labs, imaging, and previous clinic visits to other departments. Jen Coronel, MSN, AG-ACNP Bariatric Surgery Nurse Practitioner [facility] | [address] | [place], [place] | [address] | documented in is encounter Plan of Treatment +--------+ + + [...] | 2019 | Encounter | | [address] | | | | | | [place], | | | | | | [place] [address] | | | | | | [phone] | | | | | | | | +--------+ + + + + | 01/10/ | Appointment | Gastroenterology | Guillermo Quach MD | | | 2019 | | | [address] | | | | | | [place], | | | | | | [place] [address] | | | | | | [phone] | | | | | | | | +--------+ + + + + + +------+--------+ + + | Name | Type | Priori | Associated Diagnoses | Order Schedule | | | | ty | | | + +------+--------+ + + | CBC ONLY | Lab | Routin | Gastroesophageal | Ordered: 06/27/2019 | | | | e | reflux disease, | | | | | | esophagitis presence | | | | | | not specified | | | | | | Severe obesity (HCC) | | | | | | Type 2 diabetes | | | | | | mellitus without | | | | | | complication, with | | | | | | long-term current | | | | | | 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 (HCC) | | | | | | Hx of degenerative | | | | | | disc disease | | + +------+--------+ + + | COMPLETE METABOLIC | Lab | Routin | Gastroesophageal | Ordered: 06/27/2019 | | SET | | e | reflux disease, | | | (NA,K,CL,CO2,BUN,CRE | | | esophagitis presence | | | AT,GLUC,CA,AST,ALT,B | | | not specified | | | FABIOLA TOTAL,ALK | | | Severe obesity (HCC) | | | PHOS,ALB,PROT TOTAL) | | | Type 2 diabetes | | | | | | mellitus without | | | | | | complication, with | | | | | | long-term current | | | | | | 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 ([facility]) | | | | | | Hx of degenerative | | | | | | disc disease | | + +------+--------+ + + | FERRITIN | Lab | Routin | Gastroesophageal | Ordered: 06/27/2019 | | | | e | reflux disease, | | | | | | esophagitis presence | | | | | | not specified | | | | | | Severe obesity (HCC) | | | | | | Type 2 diabetes | | | | | | mellitus without | | | | | | complication, with | | | | | | long-term current | | | | | | 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 ([facility]) | | | | | | Hx of degenerative | | | | | | disc disease | | + +------+--------+ + + | HEMOGLOBIN A1C, | Lab | Routin | Gastroesophageal | Ordered: 06/27/2019 | | BLOOD | | e | reflux disease, | | | | | | esophagitis presence | | | | | | not specified | | | | | | Severe obesity (HCC) | | | | | | Type 2 diabetes | | | | | | mellitus without | | | | | | complication, with | | | | | | long-term current | | | | | | 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 ([facility]) | | | | | | Hx of degenerative | | | | | | disc disease | | + +------+--------+ + + | HOMOCYSTEINE TOTAL, | Lab | Routin | Gastroesophageal | Ordered: 06/27/2019 | | PLASMA | | e | reflux disease, | | | | | | esophagitis presence | | | | | | not specified | | | | | | Severe obesity ([facility]) | | | | | | Type 2 diabetes | | | | | | mellitus without | | | | | | complication, with | | | | | | long-term current | | | | | | 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 ([facility]) | | | | | | Hx of degenerative | | | | | | disc disease | | + +------+--------+ + + | IRON AND TIBC | Lab | Routin | Gastroesophageal | Ordered: 06/27/2019 | | | | e | reflux disease, | | | | | | esophagitis presence | | | | | | not specified | | | | | | Severe obesity (HCC) | | | | | | Type 2 diabetes | | | | | | mellitus without | | | | | | complication, with | | | | | | long-term current | | | | | | 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 ([facility]) | | | | | | Hx of degenerative | | | | | | disc disease | | + +------+--------+ + + | METHYLMALONIC ACID, | Lab | Routin | Gastroesophageal | Ordered: 06/27/2019 | | SERUM | | e | reflux disease, | | | | | | esophagitis presence | | | | | | not specified | | | | | | Severe obesity ([facility]) | | | | | | Type 2 diabetes | | | | | | mellitus without | | | | | | complication, with | | | | | | long-term current | | | | | | 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 ([facility]) | | | | | | Hx of degenerative | | | | | | disc disease | | + +------+--------+ + + | PTH, SERUM | Lab | Routin | Gastroesophageal | Ordered: 06/27/2019 | | | | e | reflux disease, | | | | | | esophagitis presence | | | | | | not specified | | | | | | Severe obesity ([facility]) | | | | | | Type 2 diabetes | | | | | | mellitus without | | | | | | complication, with | | | | | | long-term current | | | | | | 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 ([facility]) | | | | | | Hx of degenerative | | | | | | disc disease | | + +------+--------+ + + | VITAMIN B1, WHOLE | Lab | Routin | Gastroesophageal | Ordered: 06/27/2019 | | BLOOD | | e | reflux disease, | | | | | | esophagitis presence | | | | | | not specified | | | | | | Severe obesity ([facility]) | | | | | | Type 2 diabetes | | | | | | mellitus without | | | | | | complication, with | | | | | | long-term current | | | | | | 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 ([facility]) | | | | | | Hx of degenerative | | | | | | disc disease | | + +------+--------+ + + | VITAMIN B-12 | Lab | Routin | Gastroesophageal | Ordered: 06/27/2019 | | | | e | reflux disease, | | | | | | esophagitis presence | | | | | | not specified | | | | | | Severe obesity ([facility]) | | | | | | Type 2 diabetes | | | | | | mellitus without | | | | | | complication, with | | | | | | long-term current | | | | | | 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 ([facility]) | | | | | | Hx of degenerative | | | | | | disc disease | | + +------+--------+ + + | VITAMIN D, | Lab | Routin | Gastroesophageal | Ordered: 06/27/2019 | | 25-HYDROXY, SERUM | | e | reflux disease, | | | | | | esophagitis presence | | | | | | not specified | | | | | | Severe obesity (HCC) | | | | | | Type 2 diabetes | | | | | | mellitus without | | | | | | complication, with | | | | | | long-term current | | | | | | 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 (HCC) | | | | | | Hx of degenerative | | | | | | disc disease | | + +------+--------+ + + | NICOTINE AND | Lab | Routin | Severe obesity | Expected: 06/27/2019 | | METABOLITES | | e | (HCC) | (Approximate), | | CONFIRM/QUANT, SERUM | | | | Expires: 07/27/2020 | + +------+--------+ + + documented as of this encounter Visit Diagnoses + + | Diagnosis | + + | Severe obesity (HCC) - Primary Morbid obesity | + + | Gastroesophageal reflux disease, esophagitis presence not specified | + + | Type 2 diabetes mellitus without complication, with long-term current 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 | | (HCC) | + + | Hx of degenerative disc disease Personal history of other musculoskeletal disorders | + + documented in this encounter
--- OUTSIDE RECORDS SUMMARY | ~2019-12-09 | XMS | Encounter Summary ---
Demographics + + + | Address | [address] | | | [place] [address] | + + + | Home Phone [...] Author | [facility] | + + + | Organization | [facility] | + + + | Address | Unknown | + + + | Phone | Unavailable | + + + Support + + +---------+ + | Name | Relationship | Address | Phone | + + +---------+ + | Alisia Nina | ECON | Unknown | | + + +---------+ + Care Team Providers + +------+ + | Care Medicaid Collection Specialist Name | Role | Phone | [...] | 2019 | on | Center at [facility] [address] | | | | | | [address] | | | | | | Mailcode: Center | | | | | | [facility] | | | | | | [facility], [address] | | | | | | [facility] [place] | | | | | | [address] | | | | | | [phone] | | | +--------+ + + + [...] | | | | | | [place] [address] | | | | | | [phone] | | | | | | | | +--------+ + + + + | 01/10/ | Appointment | Gastroenterology | Guillermo Quach MD | | | 2019 | | | [address] | | | | | | [place] | | | | | | [place] [address] | | | | | | [phone] | | | | | | | | +--------+ + + + + documented as of this encounter Visit Diagnoses Not on filedocumented in this encounter"
--- OUTSIDE RECORDS SUMMARY | ~2019-12-09 | XMS | Encounter Summary ---
Demographics + + + | Address | [address] | | | [place] [address] | + + + | Home Phone | | + + + | Preferred Language | Unknown | + + + | Marital Status | Single | + + + | Restorationism Affiliation | 1041 | + + + | Race | Unknown | + + + | Ethnic Group | Unknown | + + + Author + + + | Author | [facility] | | | and [place] | + + + | Organization | [facility] | | | and [...] [place] | | | | | [address] | | + + + + + | Pratibha Hester | ECON | Unknown | + | + + + + + | Demian Powell | ECON | Unknown | + | + + + + + Care Team Providers + +------+ + | Care Projection Welding Machine Operator Name | Role | Phone | + +------+ + | Quentin Manriquez PA-C | MARCK | | + +------+ + Encounter Details +--------+ + + + + | Date | Type | Department | Care Team | Description | +--------+ + + + + | 09/02/ | Orders Only | [facility] [place] | Sascha Mir, | Displacement of | | 2014 | | NEUROSURGERY [address] | DO [address] | lumbar | | | | [address] | [address] [place], [place] | intervertebral disc | | | | [place], [place] | [address] | without myelopathy | | | | [address] | | (Primary Dx) | | | | [phone] | | | +--------+ + + + [...] | Office | | MD Michael [address] | | | | Visit | | [address] | | | | | | [place] [address] | | | | | | [phone] | | | | | | | | +--------+ + + + + documented as of this encounter Results XR Lumbar Spine 4 + Vw (09/26/2014 9:21 AM PST) + + | Specimen | + + | | + + + + + | Narrative | Performed At | + + + | EXAM: XR LUMBAR SPINE 4 + VW dated 09/26/2014 8:51 AM | [facility] | | HISTORY:Back pain COMPARISON: MRI from [facility] dated | [facility] | | June 25, 2014 and plain films dated August 31, 2011. | MEDICAL CENTER | | FINDINGS: 4 views of the lumbar spine. 5 nonrib-bearing lumbar-type | - IMAGING | | vertebral bodies. Mild rightward curvature may be positional. | | | There is significant anterolisthesis of L5. Disc collapse and | | | endplate sclerosis between L5 and S1. Bilateral L5 pars defects. | | | Slight retrolisthesis of L3. Slight retrolisthesis of L4. No | | | significant translation with flexion-extension. Bridging osteophytes | | | are seen through the thoracolumbar junction the soft tissues are | | | unremarkable. IMPRESSION - Lumbar spondylosis. Significant | | | spondylolisthesis at L5. Very minimal retrolisthesis of L3 on L4. | | | Dictated and Signed by: Vega Vora MD Electronically | | | signed: 09/26/2014 10:47 AM | | + + + + + | Procedure Note | + + | Cedric, Rad Results In - 09/26/2014 10:50 AM PST EXAM: XR LUMBAR SPINE 4 + VW dated | | 09/26/2014 8:51 AMHISTORY:Back painCOMPARISON: MRI from [facility] dated | | June 25, 2014 and plainfilms dated August 31, 2011.FINDINGS: 4 views of the lumbar | | spine. 5 nonrib-bearing lumbar-type vertebralbodies. Mild rightward curvature may be | | positional. There is significantanterolisthesis of L5. Disc collapse and endplate | | sclerosis between L5 and S1. Bilateral L5 pars defects. Slight retrolisthesis of L3. | | Slight retrolisthesisof L4. No significant translation with flexion-extension. | | Bridging osteophytesare seen through the thoracolumbar junction the soft tissues are | | unremarkable.IMPRESSION -Lumbar spondylosis.Significant spondylolisthesis at L5. Very | | minimal retrolisthesis of L3 on L4.Dictated and Signed by: Vega Vora MD | | Electronically signed: 09/26/2014 10:47 AM | |of L4. No significant translation with flexion-extension. Bridging osteophytes | |are seen through the thoracolumbar junction the soft tissues are unremarkable. | | | |IMPRESSION - | | | |Lumbar spondylosis. | | | |Significant spondylolisthesis at L5. Very minimal retrolisthesis of L3 on L4. | | | |Dictated and Signed by: Vega Vora MD | | Electronically signed: 09/26/2014 10:47 AM | + + + + + + + | Performing | Address | City/State/Zipcode | Phone Number | | Organization | | | | + + + + + | [facility] | [address] | [place] | [phone] | | [facility] | | [address] | | | - IMAGING | | | | + + + + + documented in this encounter Visit Diagnoses + + | Diagnosis | + + | 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
--- OUTSIDE RECORDS SUMMARY | ~2019-12-09 | XMS | Encounter Summary ---
Demographics + + + | Address | [address] | | | [place] [address] | + + + | Home Phone [...] + + + | Author | [facility] | | | and [place] | + + + | Organization | [facility] | | [...] [place] | | | | | [address] | | + + + + + | Pratibha Hester | ECON | Unknown | + | + + + + + | Demian Powell | ECON | Unknown | + | + + + + + Care Team Providers + +------+ + | Care Director Of Outside Sales Name | Role | Phone | + +------+ + | Derick Mclaughlin PA-C | PCP | | + +------+ + Reason for Visit +--------+ + | Reason | Comments | +--------+ + | Other | Schedule MRI | +--------+ + Encounter Details +--------+ + + + + | Date | Type | Department | Care Team | Description | +--------+ + + + + | 08/23/ | Telephone | [facility] | Denilson Jorge | Other (Schedule MRI | | 2012 | | [address] | [address] | ) | | | | [address] [facility] [address] | [place] | | | | | [place] | [address] | | | | | [address] | [phone] | | | | | [phone] | | | +--------+ + + + [...] 2019 | Office | | MD Michael [address] [place] [address] | | | | Visit | | [place] | | | | | | [place] [address] | | | | | | [phone] | | | | | | | | +--------+ + + + + documented as of this encounter Visit Diagnoses Not on filedocumented in this encounter"
--- OUTSIDE RECORDS SUMMARY | ~2019-12-09 | XMS | Encounter Summary ---
Demographics + + + | Address | [address] | | | [place] [address] | + + + | Home Phone | | + + + | Preferred Language | Unknown | + + + | Marital Status | Single | + + + | Sabianism Affiliation | 1041 | + + + | Race | Unknown | + + + | Ethnic Group | Unknown | + + + Author + + + | Author | [facility] | | | and [place] | + + + | Organization | [facility] | | [...] [place] | | | | | [address] | | + + + + + | Pratibha Hester | ECON | Unknown | + | + + + + + | Demian Powell | ECON | Unknown | + | + + + + + Care Team Providers + +------+ + | Care Chainstitch Sewing Machine Operator Name | Role | Phone | + +------+ + | Derick Mclaughlin PA-C | PCP | | + +------+ + Reason for Visit +--------+ + | Reason | Comments | +--------+ + | Other | Referral to office-Auth # | +--------+ + Encounter Details +--------+ + + + + | Date | Type | Department | Care Team | Description | +--------+ + + + + | 10/03/ | Telephone | [facility] | Denilson Jorge | Other (Referral to | | 2012 | | [address] | MD Denice [address] | office-Auth #) | | | | [address] | [address] [place] | | | | | [place] | [address] | | | | | [address] | [phone] | | | | | [phone] | | | +--------+ + + + [...] | Office | | MD Michael [address] | | | | Visit | | [place] | | | | | | [place] [address] | | | | | | [phone] | | | | | | | | +--------+ + + + + documented as of this encounter Visit Diagnoses Not on filedocumented in this encounter"
--- OUTSIDE RECORDS SUMMARY | ~2019-12-09 | XMS | Encounter Summary ---
Demographics + + + | Address | [address] | | | [place] [address] | + + + | Home Phone | | + + + | Preferred Language | Unknown | + + + | Marital Status | Single | + + + | Tenriism Affiliation | 1041 | + + + | Race | Unknown | + + + | Ethnic Group | Unknown | + + + Author + + + | Author | [facility] | | | and [place] | + + + | Organization | [facility] | | | and [...] [place] | | | | | [address] | | + + + + + | Pratibha Hester | ECON | Unknown | + | + + + + + | Ana Maria Powell | ECON | Unknown | + | + + + + + Care Team Providers + +------+ + | Care Office Worker Name | Role | Phone | [...] Procedures | MD [address] | | | | | MRI Lumbar | [address] | [address] [facility] | | | | | Spine wo | [place], | [place] | | | | | Contrast | [place] [address] | [address] | | | | | | Phone: | Phone: | | | | | | [phone] | | | | | | | [phone] Fax: | Fax: | | | | | | | | | | | | | [phone] | | +--------+--------+ + + + + Encounter Details +--------+ + + + + | Date | Type | Department | Care Team | Description | +--------+ + + + + | 08/23/ | Orders Only | [facility] | Denilson Jorge | Back pain (Primary | | 2012 | | NEUR[address]UR[address]ERY [address] | F, MD [address] | Dx) | | | | [address] | [place] | | | | | [place] | [address] | | | | | [address] | [phone] | | | | | [phone] | | | +--------+ + + + [...] 2019 | Office | | MD Michael [address] [place] [address] | | | | Visit | | [facility] | | | | | | [place] [address] | | | | | | [phone] | | | | | | | | +--------+ + + + + documented as of this encounter Results MRI Lumbar Spine wo Contrast (09/08/2012 12:34 PM PST) + + | Specimen | + + | | + + + + + | Narrative | Performed At | + + + | [facility] | [facility] | | Department [address] [facility] [place] | [facility] | | [ rep [address]] [ rep ct [facility] | | st zip] Signed | - IMAGING | | | | | Patient Name: ANA MARIA TURCIOS Physician: | | | ARRE.[birth year] : 1970 Age: 42 Sex: F Unit #: [id number] | | | Exam Date: 09/08/12 Location: [facility] | | | Report #: [id number] Page: | | | %(RAD)RES..mtdd.print.filter("pg") of %(RAD) | | | RES..mtdd.print.filter("tpg") | | | | | | Accession Number: [id number] | | | UNENHANCED MRI LUMBAR SPINE, [...] Transcribed | | | Date/Time: 09/08/2012 12:56 Student Finance Advisor: | | | <<Signature on File>> | | | Jayden Wyatt | | | MD Rush09/09/12 9528 <Electronically signed by Jayden Beverly MD> | | | Jayden Beverly MD 09/08/12 0594 Student Finance Advisor: | | | [employer] Ppanlgkenmoiy09/01/13 1256 Denilson Jorge, | | | MD | | + + + + + + + + | Performing | Address | City/State/Zipcode | Phone Number | | Organization | | | | + + + + + | [facility] | [address] | [place] | [phone] | | [facility] | | [address] | | | - IMAGING | | | | + + + + + documented in this encounter Visit Diagnoses + + | Diagnosis | + + | Back pain - Primary Backache, unspecified | + + documented in this encounter
--- OUTSIDE RECORDS SUMMARY | ~2019-12-09 | XMS | Encounter Summary ---
Demographics + + + | Address | [address] | | | [place] [address] | + + + | Home Phone | | + + + | Preferred Language | Unknown | + + + | Marital Status | Single | + + + | Yarsani Affiliation | 1041 | + + + | Race | Unknown | + + + | Ethnic Group | Unknown | + + + Author + + + | Author | [facility] | | | and [place] | + + + | Organization | [facility] | | [...] [place] | | | | | [address] | | + + + + + | Pratibha Hester | ECON | Unknown | + | + + + + + | Demian Powell | ECON | Unknown | + | + + + + + Care Team Providers + +------+ + | Care Administrative Volunteer Name | Role | Phone | + [...] + + | 09/29/ | Telephone | [facility] | Denilson Jorge | Other (AUTHORIZATION | | 2012 | | [address]UR[address] | FMD [address] | FOR SURGERY) | | | | [address] | [address] [place] | | | | | [place] | [address] | | | | | [address] | [phone] | | | | | [phone] | | | +--------+ + + + [...] 2019 | Office | | MD Michael [address] [place] [address] | | | | Visit | | [place] | | | | | | [place] [address] | | | | | | [phone] | | | | | | | | +--------+ + + + + documented as of this encounter Visit Diagnoses Not on filedocumented in this encounter"
--- OUTSIDE RECORDS SUMMARY | ~2019-12-09 | XMS | Encounter Summary ---
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 | | Phone: | | | | | hesis | | [phone] | | | | | Procedures | | Fax: | | | | | [place] [facility] | | [phone] | | | | | POST/POSTERO | [...] + + + + | 12/12/ | Anesthesia | LUCIAJEANEligio MOTLEY | Laz Douglass | | | 2015 | Event | [facility] | MD Jennifer [address] | | | | | [address] | [address] [place] | | | | | [place] | [address] | | | | | [address] | | | | | | [phone] | | | +--------+ + + + + Anesthesia Record + + + + + | Procedure Name | Responsible | Anesthesia Start | Anesthesia Stop Time | | | Anesthesiologist | Time | | + + + + + | L5-S1 Transforaminal | Laz Douglass, | 12/12/14 0940 | 12/12/14 1242 | | Lumbar Interbody | MD | | | | Fusion (N/A Back) | | | | + + + + + +----+---+ + + | Da | T | Event | Comment | | te | i | | | | | m | | | | | e | | | +----+---+ + + | 05 | 0 | | | | /0 | 9 | | | | 7/ | 2 | | | | 20 | 7 | | | | 15 | | | | +----+---+ + + | | 0 | An Checkout | Pre-use anesthesia machine/equipment checkout. | | | 9 | | | | | 3 | | | | | 4 | | | +----+---+ + + | | 0 | Antibiotic | | | | 9 | Given | | | | 3 | | | | | 9 | | | +----+---+ + + | | 0 | An Start | Reassessment prior to anesthesia induction/procedure. | | | 9 | | | | | 4 | | | | | 0 | | | +----+---+ + + | | 0 | an yadira now | In Room | | | 9 | | | | | 4 | | | | | 4 | | | +----+---+ + + | | 0 | Preoxygenat | | | | 9 | ed | | | | 4 | | | | | 6 | | | +----+---+ + + | | 0 | An | | | | 9 | Induction | | | | 4 | | | | | 9 | | | +----+---+ + + | | 0 | An | | | | 9 | Intubation | | | | 5 | | | | | 2 | | | +----+---+ + + | | 0 | AN Bite | | | | 9 | Block | | | | 5 | | | | | 2 | | | +----+---+ + + | | 0 | Barstow | | | | 9 | 43-degrees | | | | 5 | | | | | 7 | | | +----+---+ + + | | 1 | Breathing | | | | 2 | Spontaneous | | | | 1 | ly | | | | 9 | | | +----+---+ + + | | 1 | AN No | TOF 4/4 with sustained tetanus. | | | 2 | Residual | | | | 2 | NMB | | | | 3 | | | +----+---+ + + | | 1 | Barstow off | | | | 2 | | | | | 2 | | | | | 4 | | | +----+---+ + + | | 1 | Extubated | | | | 2 | Awake | | | | 2 | | | | | 8 | | | +----+---+ + + | | 1 | Oropharynx | | | | 2 | Suctioned | | | | 3 | | | | | 2 | | | +----+---+ + + | | 1 | Moving | | | | 2 | Purposefull | | | | 3 | y | | | | 2 | | | +----+---+ + + | | 1 | an yadira now | Patient required zacarias lift in RR for a bit | | | 2 | | | | | 3 | | | | | 6 | | | +----+---+ + + | | 1 | An Stop | Patient handed off to recovery nurse. | | | 4 | | | | | 2 | | | +----+---+ + + +------+ | Meds | +------+ + + + | Name | Total | + + + | midazolam | 2 mg | + + + | propofol | 150 mg | + + + | vecuronium | 7 mg | + + + | dexamethasone | 10 mg | + + + | ondansetron | 4 mg | + + + | HYDROmorphone | 2 mg | + + + | phenylephrine | 600 mcg | + + + | dexmedetomidine (PRECEDEX) 4 | 100 mcg | | mcg/mL in sodium chloride 0.9% | | | 100 mL infusion | | + + + | magnesium sulfate | 1 g | + + + | glycopyrrolate | 0.2 mg | + + + | ePHEDrine | 25 mg | + + + | ceFAZolin (ANCEF, KEFZOL) 2 g in | 2 g | | sodium chloride 0.9% 50 mL IVPB | | + + + | vasopressin | 8 Units | + + + | ketamine | 125 mg | + + + | EPINEPHrine | 10 mcg | + + + | albuterol MDI | 8 puff | + + + | sodium chloride 0.9% (NS) | 1,000 mL | | infusion | | + + + | lactated ringers (LR) infusion | 800 mL | + + + + + | Name | + + | N2O Flow Rate (L/Min) | + + | O2 Flow Rate (L/Min) | + + | Insp O2 | + + | Exp SEV | + + | Exp ANEUDY | + + | Air Flow Rate (L/Min) | + + + + | No blood administrations on file. | + + +--------+ + + + | Type | Details | Placement | Removal | +--------+ + + + | Drain/ | 12/12/14; #1; posterior; lumbar | 12/12/14 0000 by | 12/14/14 0956 by | | Device | spine; 10f; healing within | Kia Torres RN | Eloisa Dee RN | | Site | expectations; 12/14/14; 56 | | | +--------+ + + + | [READ | 12/12/14; 0850; Blood Bank, Other | 12/12/14 0850 by | 12/14/141944 by | | ONLY] | (see comment) (blood glucose); | Jeanna Mendoza, EKATERINA | Mariam Levi RN | | | healing within expectations; | | | | Periph | 12/14/14; 1944 | | | | eral | | | | | IV - | | | | | Single | | | | | Lumen | | | | | | | | | +--------+ + + + | Airway | Placement Date: 12/12/14; | 12/12/14951 by | 12/12/14 1228 by | | | Placement Time: 951; Mask | Laz Douglass, | Laz Douglass, | | | Ventilation: EZ; Airway Grade: | MD | MD | | | II; With: CP; Successful | | | | | Technique: video scope; | | | | | Laryngoscope Blade Size: 3; | | | | | Attempts: 1; Airway Type: | | | | | endotracheal, oral, disposable, | | | | | cuffed, fenestrated; Size: 6.5; | | | | | Position: Right; Airway Tube | | | | | Secured At: 0.23 m (9.06"); Tube | | | | | Reference Point: teeth, secure | | | | | and patent; Trauma: none; Other | | | | | Equipment: tooth guard; Placement | | | | | Check: verified by capnography, | | | | | verified by auscultation; Placed | | | | | By: Anesthesiologist; Removal | | | | | Date: 12/12/14; Removal Time: | | | | | 1228 | | | +--------+ + + + | Read | 12/12/14; 1035; back; 10/31/18 | 12/12/14 1035 by | 10/31/18 1342 by | | only - | (Completed/Removed by Utility); | Kia Torres RN | User Epic | | | 1342 (Completed/Removed by | | | | Incisi | Utility) | | | | on | | | | +--------+ + + + documented in this encounter Social History + + + +--------+ + [...] | Office | | MD Michael [address] | | | | Visit | | [place] | | | | | | [place] [address] | | | | | | [phone] | | | | | | | | +--------+ + + + + documented as of this encounter Visit Diagnoses Not on filedocumented in this encounter Administered Medications + +--------+ +---------+------+------+ | Medication Order | MAR | Action | Dose | Rate | Site | | | Action | Date | | | | + +--------+ +---------+------+------+ | albuterol 90 mcg/puff inhaler | Given | 12/13/19 | 8 puffs | | | | Inhalation, PRN, Shortness of | | 15 12:21 | | | | | Breath, Starting [facility] 12/12/14 at | | PM PDT | | | | | 1221, Anesthesia Intra-op | | | | | | + +--------+ +---------+------+------+ +---+---+ | | | +---+---+ + +-------+ +-----+---+---+ | ceFAZolin (ANCEF, KEFZOL) 2 g | Given | 12/13/19 | 2 g | | | | in sodium chloride 0.9% 50 mL | | 15 9:39 | | | | | IVPB 2 g, Intravenous, | | AM PDT | | | | | Administer over 30 Minutes, Prior | | | | | | | to Incision, Starting [facility] 12/12/14 | | | | | | | at 0829, For 1 dose, Administer | | | | | | | within 1 hour of surgical | | | | | | | incision., Pre-op | | | | | | + +-------+ +-----+---+---+ +---+---+ | | | +---+---+ + +-------+ +-------+---+---+ | dexamethasone (DECADRON) 10 | Given | 12/13/19 | 10 mg | | | | mg/mL injection Intravenous, | | 15 9:49 | | | | | PRN, Starting [facility] 12/12/14 at 0949, | | AM PDT | | | | | Anesthesia Intra-op | | | | | | + +-------+ +-------+---+---+ +---+---+ | | | +---+---+ + +---------+ +--------+ +---+ | dexmedetomidine (PRECEDEX) 4 | New Bag | 12/13/19 | 100 | 25 mL/hr | | | mcg/mL in sodium chloride 0.9% | | 15 10:00 | mcg/hr | | | | 100 mL infusion 400 mcg, | | AM PDT | | | | | CONTINUOUS PRN, Starting [facility] | | | | | | | 12/12/14 at 1000, Anesthesia | | | | | | | Intra-op | | | | | | + +---------+ +--------+ +---+ +---+---+ | | | +---+---+ + +-------+ +---------+---+---+ | ePHEDrine 50 mg/mL injection | Given | 12/13/19 | 12.5 mg | | | | PRN, Starting [facility] 12/12/14 at 1010, | | 15 10:10 | | | | | Anesthesia Intra-op | | AM PDT | | | | + +-------+ +---------+---+---+ +-------+ +---------+---+---+ | Given | 12/13/19 | 12.5 mg | | | | | 15 10:03 | | | | | | AM PDT | | | | +-------+ +---------+---+---+ +---+---+ | | | +---+---+ + +-------+ +--------+---+---+ | EPINEPHrine 1 mg/mL injection | Given | 12/13/19 | 10 mcg | | | | Intravenous, PRN, Anaphylaxis, | | 15 11:38 | | | | | Starting [facility] 12/12/14 at 1138, | | AM PDT | | | | | Anesthesia Intra-op | | | | | | + +-------+ +--------+---+---+ +---+---+ | | | +---+---+ + +-------+ +--------+---+---+ | glycopyrrolate (RAMYA) | Given | 12/13/19 | 0.2 mg | | | | injection Intravenous, PRN, | | 15 11:32 | | | | | Secretions, Starting [facility] 12/12/14 | | AM PDT | | | | | at 1132, Anesthesia Intra-op | | | | | | + +-------+ +--------+---+---+ +---+---+ | | | +---+---+ + +-------+ +--------+---+---+ | HYDROmorphone (PF) (DILAUDID) 2 | Given | 12/13/19 | 0.5 mg | | | | mg/mL injection PRN, Pain, | | 15 11:14 | | | | | Starting [facility] 12/12/14 at 0947, | | AM PDT | | | | | Anesthesia Intra-op | | | | | | + +-------+ +--------+---+---+ +-------+ +--------+---+---+ | Given | 12/13/19 | 0.5 mg | | | | | 15 11:01 | | | | | | AM PDT | | | | +-------+ +--------+---+---+ | Given | 12/13/19 | 1 mg | | | | | 15 9:47 | | | | | | AM PDT | | | | +-------+ +--------+---+---+ +---+---+ | | | +---+---+ + +-------+ +-------+---+---+ | ketamine 50 mg/mL injection | Given | 12/13/19 | 75 mg | | | | PRN, Starting [facility] 12/12/14 at 1005, | | 15 10:06 | | | | | Anesthesia Intra-op | | AM PDT | | | | + +-------+ +-------+---+---+ +-------+ +-------+---+---+ | Given | 12/13/19 | 50 mg | | | | | 15 10:05 | | | | | | AM PDT | | | | +-------+ +-------+---+---+ +---+---+ | | | +---+---+ + +---------+ +---+---+---+ | lactated ringers (LR) infusion | New Bag | 12/13/19 | | | | | at 10-100 mL/hr, Intravenous, | | 15 11:10 | | | | | CONTINUOUS, Starting [facility] 5/7/15 | | AM PDT | | | | | at 0845, TKO., Pre-op | | | | | | + +---------+ +---+---+---+ +---+---+ | | | +---+---+ + +---------+ +--------+---------+---+ | magnesium sulfate 500 mg/mL | New Bag | 12/13/19 | 1 g/hr | 2 mL/hr | | | injection CONTINUOUS PRN, | | 15 10:00 | | | | | Starting [facility] 12/12/14 at 1000, | | AM PDT | | | | | Anesthesia Intra-op | | | | | | + +---------+ +--------+---------+---+ +---+---+ | | | +---+---+ + +-------+ +------+---+---+ | midazolam (VERSED) 1 mg/mL | Given | 12/13/19 | 2 mg | | | | injection Intravenous, PRN, | | 15 9:40 | | | | | Anxiety, Starting [facility] 12/12/14 at | | AM PDT | | | | | 0940, Anesthesia Intra-op | | | | | | + +-------+ +------+---+---+ +---+---+ | | | +---+---+ + +-------+ +------+---+---+ | ondansetron (ZOFRAN) injection | Given | 12/13/19 | 4 mg | | | | PRN, Nausea, Vomiting, Starting | | 15 9:49 | | | | | [facility] 12/12/14 at 0949, Anesthesia | | AM PDT | | | | | Intra-op | | | | | | + +-------+ +------+---+---+ +---+---+ | | | +---+---+ + +-------+ +---------+---+---+ | phenylephrine (TANNER-SYNEPHRINE) | Given | 12/13/19 | 100 mcg | | | | 0.1 mg/mL IV syringe PRN, | | 15 11:36 | | | | | Starting [facility] 12/12/14 at 0955, | | AM PDT | | | | | Anesthesia Intra-op | | | | | | + +-------+ +---------+---+---+ +-------+ +---------+---+---+ | Given | 12/13/19 | 100 mcg | | | | | 15 11:18 | | | | | | AM PDT | | | | +-------+ +---------+---+---+ | Given | 12/13/19 | 100 mcg | | | | | 15 10:35 | | | | | | AM PDT | | | | +-------+ +---------+---+---+ +---+---+ | | | +---+---+ + +-------+ +--------+---+---+ | propofol (DIPRIVAN) injection | Given | 12/13/19 | 150 mg | | | | PRN, Starting [facility] 12/12/14 at 0949, | | 15 9:49 | | | | | Anesthesia Intra-op | | AM PDT | | | | + +-------+ +--------+---+---+ +---+---+ | | | +---+---+ + +-------+ +---------+---+---+ | vasopressin (PITRESSIN) | Given | 12/13/19 | 2 Units | | | | injection Intravenous, PRN, | | 15 11:37 | | | | | Starting [facility] 12/12/14 at 1044, | | AM PDT | | | | | Anesthesia Intra-op | | | | | | + +-------+ +---------+---+---+ +-------+ +---------+---+---+ | Given | 12/13/19 | 2 Units | | | | | 15 11:19 | | | | | | AM PDT | | | | +-------+ +---------+---+---+ | Given | 12/13/19 | 2 Units | | | | | 15 10:59 | | | | | | AM PDT | | | | +-------+ +---------+---+---+ +---+---+ | | | +---+---+ + +-------+ +------+---+---+ | vecuronium (NORCURON) injection | Given | 12/13/19 | 2 mg | | | | Intravenous, PRN, Ventilator | | 15 9:50 | | | | | Dyssynchrony, Starting [facility] 12/12/14 | | AM PDT | | | | | at 0948, Anesthesia Intra-op | | | | | | + +-------+ +------+---+---+ +-------+ +------+---+---+ | Given | 12/13/19 | 5 mg | | | | | 15 9:48 | | | | | | AM PDT | | | | +-------+ +------+---+---+ +---+---+ | | | +---+---+ documented in this encounter
--- OUTSIDE RECORDS SUMMARY | ~2019-12-09 | XMS | Clinical Summary ---
Demographics + + + | Address | [address] | | | [place] [address] | + + + | Home Phone [...] + + + | Author | [facility] | | | and [place] | + + + | Organization | [facility] [...] [place] | | | | | [address] | | + + + + + | Pratibha Hester | ECON | Unknown | + | + + + + + | Demian Powlel | ECON | Unknown | + | + + + + + Care Team Providers + +------+ + | Care Ethnology Professor Name | Role | Phone | + +------+ + | Gracie Lewis PA-C | PCP | | + +------+ + Allergies + + + + + + | Active Allergy | Reactions | Severity | Noted | Comments | | | | | Date | | + + + + + + | Anesthetics, Ludmila | Anaphylaxis, | High | 09/26/19 | Allergic to | | | Itching, Swelling | | 15 | anesthetics - | | | | | | reports throat | | | | | | swelling, itching | + + + + + + | Ethyl Chloride | Anaphylaxis | High | 12/13/19 | Had ingrown | | | | | 15 | toenail removed last | | | | | | year. Several hours | | | | | | after procedure, | | | | | | patient developed | | | | | | anaphylaxis. | | | | | | Believed to be from | | | | | | ethyl chloride | | | | | | spray, per patient. | + + + + + + | Hydromorphone | Itching, Rash | Low | 12/06/19 | | | | | | 15 | | + + + + + + | Latex | Itching | Medium | 12/06/19 | | | | | | 15 | | + + + + + + | Morphine | Itching, Rash | Medium | 05/18/20 | | | | | | 12 | | + + + + + + | Povidone Iodine | Shortness Of Breath, | High | 05/06/20 | Throat swelling | | | Swelling | | 15 | and difficulty | | | | | | breathing | + + + + + + | Procainamide Hcl | Anaphylaxis | High | 12/05/19 | Allergic to | | | | | 15 | anesthetics | | | | | | Allergic to | | | | | | anesthetics | + + + + + + Medications + + + +---------+------+------+-------+ | Medication | Sig | Dispensed | Refills | Star | End | Statu | | | | | | t | Date | s | | | | | | Date | | | + + + +---------+------+------+-------+ | Loratadine | Take by mouth | | 0 | | | Activ | | (CLARITIN) 10 MG | Daily. | | | | | e | | CAPS | | | | | | | + + + +---------+------+------+-------+ | montelukast | Take 10 mg by mouth | | 0 | | | Activ | | (SINGULAIR) 10 mg | nightly. | | | | | e | | tablet | | | | | | | + + + +---------+------+------+-------+ | guaiFENesin | Take 200 mg by mouth | | 0 | | | Activ | | (ROBITUSSIN) 100 | every 4 hours as | | | | | e | | mg/5 mL SOLN | needed. | | | | | | + + + +---------+------+------+-------+ | ferrous sulfate | Take 324 mg by mouth | | 0 | | | Activ | | 324 (65 Fe) MG EC | daily (with | | | | | e | | tablet | breakfast). | | | | | | + + + +---------+------+------+-------+ | terbinafine | Take 1 tablet by | | 0 | | | Activ | | (LAMISIL) 250 MG | mouth Daily. | | | | | e | | tablet | | | | | | | + + + +---------+------+------+-------+ | omeprazole | Take 1 capsule by | | 0 | | | Activ | | (PRILOSEC) 20 mg | mouth Daily. | | | | | e | | capsule | | | | | | | + + + +---------+------+------+-------+ | | Apply 1 drop to eye | | 0 | | | Activ | | naphazoline-pheniram | 4 times daily as | | | | | e | | ine (NAPHCON-A) | needed. | | | | | | | 0.025-0.3 % | | | | | | | | ophthalmic solution | | | | | | | + + + +---------+------+------+-------+ | metFORMIN | Take by mouth. | | 0 | | | Activ | | (GLUCOPHAGE) 500 mg | | | | | | e | | tablet | | | | | | | + + + +---------+------+------+-------+ | albuterol 90 | Inhale 1-2 puffs | | 0 | | | Activ | | mcg/puff inhaler | into the lungs every | | | | | e | | | 4 hours as needed | | | | | | | | for Wheezing or | | | | | | | | Shortness of Breath. | | | | | | + + + +---------+------+------+-------+ | hydrocortisone | Apply topically 4 | | 0 | | | Activ | | 2.5% cream | times daily. | | | | | e | + + + +---------+------+------+-------+ | hydrophilic | Apply topically as | | 0 | | | Activ | | ointment | needed for Dry Skin. | | | | | e | + + + +---------+------+------+-------+ | lisinopril | Take 2.5 mg by mouth | | 0 | | | Activ | | (PRINIVIL,ZESTRIL) | Daily. | | | | | e | | 2.5 MG tablet | | | | | | | + + + +---------+------+------+-------+ | meclizine | Take 25 mg by mouth | | 0 | | | Activ | | (ANTIVERT) 25 mg | 3 times daily as | | | | | e | | tablet | needed for Dizziness | | | | | | | | or Nausea. | | | | | | + + + +---------+------+------+-------+ | PSYLLIUM PO | Take by mouth. MED | | 0 | | | Activ | | | NAME: PSYLLIUM | | | | | e | | | HYDROPHILIC | | | | | | | | MUCILLOID POWDER; | | | | | | | | Take 1 rounded TBS | | | | | | | | by mouth every day | | | | | | | | mixed in 8 oz of | | | | | | | | liquid for fiber. | | | | | | + + + +---------+------+------+-------+ | pseudoePHEDrine | Take 60 mg by mouth | | 0 | | | Activ | | (SUDAFED) 60 MG | Twice daily as | | | | | e | | tablet | needed. | | | | | | + + + +---------+------+------+-------+ | tiZANidine | Take 4 mg by mouth | | 0 | | | Activ | | (ZANAFLEX) 4 mg | every 6 hours as | | | | | e | | tablet | needed. | | | | | | + + + +---------+------+------+-------+ | | APPLY TO CLEAN DRY | | 0 | 11/2 | | Activ | | Fluocin-Hydroquinone | SKIN AT BEDTIME, | | | 6/20 | | e | | -Tretinoin | AVOIDING EYE AREA, | | | 17 | | | | (TRI-RAJ) | FOR 8 WEEKS IN A | | | | | | | 0.01-4-0.05 % CREA | ROW. REST 8 WEEKS | | | | | | | | AND MAY REPEAT | | | | | | | | NEEDED FOR DARKENING | | | | | | + + + +---------+------+------+-------+ | mometasone | Inhale 1 puff once | | 0 | | | Activ | | (ASMANEX) 220 | daily. | | | | | e | | mcg/puff inhaler | | | | | | | + + + +---------+------+------+-------+ | methocarbamol | Take 500 mg by mouth | | 0 | | | Activ | | (ROBAXIN) 500 mg | Daily. | | | | | e | | tablet | | | | | | | + + + +---------+------+------+-------+ | | Inhale 1 puff into | | 0 | | | Activ | | fluticasone-salmeter | the lungs 2 times | | | | | e | | ol (ADVAIR, WIXELA | daily. | | | | | | | INHUB) 250-50 | | | | | | | | mcg/puff diskus | | | | | | | | inhaler | | | | | | | + + + +---------+------+------+-------+ | liraglutide | Inject 1.2 mg under | | 0 | | | Activ | | (VICTOZA) 18 mg/3 mL | the skin Daily. | | | | | e | | injection | | | | | | | + + + +---------+------+------+-------+ | insulin glargine | Inject under the | | 0 | | | Activ | | (LANTUS) 100 | skin 3 times daily. | | | | | e | | units/mL injection | | | | | | | | (vial) | | | | | | | + + + +---------+------+------+-------+ Active Problems + + + | Problem | Noted Date | + + + | Chronic low back pain | 07/22/2015 | + + + | Lumbar radiculopathy | 07/22/2015 | + + + | S/P lumbar fusion | 07/22/2015 | + + + | Acquired spondylolisthesis | 12/16/2014 | + + + | Conductive hearing loss in right ear | 04/01/2014 | + + + | ETD (eustachian tube dysfunction) | 04/01/2014 | + + + | Nausea | 04/01/2014 | + + + | OME (otitis media with effusion) | 04/01/2014 | + + + | Synovial cyst of lumbar facet joint | 10/27/2012 | + + + | Foraminal stenosis of lumbosacral region | 10/27/2012 | + + + | Facet arthropathy, lumbosacral | 10/27/2012 | + + + | Spondylolisthesis of lumbar region L5-S1 | 05/18/2012 | + + + | Pars defect of lumbar spine L5-S1 | 05/18/2012 | + + + | Morbid obesity | 05/18/2012 | + + + | Sacroiliitis | 05/18/2012 | + + + | Trochanteric bursitis | 05/18/2012 | + + + | Diabetes mellitus | 05/18/2012 | + + + | Asthma | 05/18/2012 | + + + | HIP PAIN, LEFT, CHRONIC | | + + + | Essential hypertension | | + + + Encounters +--------+---------+ + + + | Date | Type | Specialty | Care Team | Description | +--------+---------+ + + + | 09/25/ | Office | Cardiology | Rudy Osullivan, | Atypical chest pain | | 2020 | Visit | | MD | (Primary Dx); | | | | | | Essential | | | | | | hypertension; | | | | | | Preoperative | | | | | | cardiovascular | | | | | | examination; | | | | | | Accident caused by | | | | | | hypodermic needle, | | | | | | sequela; Family | | | | | | history of premature | | | | | | CAD | +--------+---------+ + + + from Last 3 Months Immunizations + + + + | Name | Administration Dates | Next Due | + + + + | HEP A, 2 DOSE | 11/29/2012 | | | (PED/ADOL) | | | + + + + | HEP A, 3 DOSE | 06/14/2013 | | | (PED/ADOL) | | | + + + + | HEP A/HEP B, 3 DOSE | 10/13/2012 | | | (ADULT) | | | + + + + | HEP B, 2 DOSE (ADOL) | 11/29/2012 | | + + + + | HEP B, 3 DOSE | 05/18/2013 | | | (ADULT) | | | + + + + | HPV, QUADRIVALENT, 3 | 05/18/2013 | | | DOSE (ADOL/ADULT) | | | + + + + | Hep B (PED/ADOL) 3 | 06/14/2013 | | | DOSE | | | + + + + | INFLUENZA 66 Y OR >, | 05/07/2014, 05/18/2013, 04/08/2011, | | | TRIVALENT HIGH-DOSE | 07/07/2010, 07/01/2008 | | + + + + | INFLUENZA, [id number], | 08/05/2009 | | | UNSPECIFIED | | | + + + + | PNEUMOCOCCAL, | 07/07/2010 | | | UNSPECIFIED | | | | FORMULATION | | | + + + + Family History + + + + + | Medical History | Relation | Name | Comments | + + + + + | Asthma | Daughter | Kanym | | + + + + + | Coronary artery | Father | An | | | disease | | Nina | | + + + + + | Heart attack | Father | An | | | | | Nina | | + + + + + | No known problems | Maternal | Lee | | | | Grandfath | | | | | er | | | + + + + + | No known problems | Maternal | | | | | Grandmoth | | | | | er | | | + + + + + | Arthritis | Mother | Pratibha | | | | | Moffit | | + + + + + | Hypertension | Mother | Pratibha | | | | | Moffit | | + + + + + | Alcohol abuse | Other | FAMILY | | | | | HX | | + + + + + | No known problems | Paternal | | | | | Grandfath | | | | | er | | | + + + + + | No known problems | Paternal | | | | | Grandmoth | | | | | er | | | + + + + + | Arthritis | Sister | mercedez | | + + + + + | Coronary artery | Sister | mercedez | CABG | | disease | | | | + + + + + | Diabetes | Sister | mercedez | | + + + + + | Other (see comment) | | mercedez | passed in her sleep unsure of cause | + + + + + | Renal failure | | mercedez | | + + + + + | Seizures | Sister | mercedez | | + + + + + | Stroke | | mercedez | | + + + + + | Mental illness | Sister | lenriea | | | | | cody | | + + + + + | Asthma | Son | Ivey | | + + + + + + + + + + | Relation | Name | Status | Comments | + + + + + | Brother | | Alive | | + + + + + | Brother | | Alive | | + + + + + | Daughter | Kanym | Alive | | + + + + + | Father | An | | | | | Nina | (Age | | | | | 36) | | + + + + + | Maternal Grandfather | Lee | | | | | | (Age | | | | | 80) | | + + + + + | Maternal Grandmother | | | | | | | (Age | | | | | 69) | | + + + + + | Mother | Pratibha | Alive | | | | Moffit | | | + + + + + | Other | FAMILY HX | | | + + + + + | Paternal Grandfather | | Other | STATUS UNKNOWN | + + + + + | Paternal Grandmother | | Other | STATUS UNKNOWN | + + + + + | Sister | mercedez | | | | | | (Age | | | | | 40) | | + + + + + | Sister | lenriea | Alive | age 40 no issues | | | cody | | | + + + + + | Son | Ivey | Alive | | + + + + + Social History + [...] recent travel history available. | + + Last Filed Vital Signs + + + + + | Vital Sign | Reading | Time Taken | Comments | + + + + + | Blood Pressure | 116/62 | 09/25/2019 10:52 AM | | | | | PST | | + + + + + | Pulse | 102 | 09/25/2019 10:52 AM | | | | | PST [...] + | Oxygen Saturation | 96% | 09/25/2019 10:52 AM | | | | | PST | | + + + + + | Inhaled Oxygen | - | - | | | Concentration | | | | + + + + + | Weight | 105.4 kg (232 lb 6.4 | 09/25/2019 10:52 AM | | | | oz) | PST | | + + + + + | Height | 167.6 cm (5' 6") | 09/25/2019 10:52 AM | | | | | PST | | + + + + + | Body Mass Index | 37.51 | 09/25/2019 10:52 AM | | | | | PST | | + + + + + Plan of Treatment +--------+ + + + + | Date | Type | Specialty | Care Team | Description | +--------+ + + + + | 12/11/ | Virtual | Sleep Medicine | Jasiel Loo | | 2019 | Office | | MD Michael [address] | | | | Visit | | [place] | | | | | | [place] [address] | | | | | | [phone] | | | | | | | | +--------+ + + + + + + + + + | Health Maintenance | Due Date | Last Done | Comments | + + + + + | Vaccine: | | 07/07/2010 | | | Pneumococcal 19-64 | 7 | | | | ( - PPSV23) | | | | + + + + + | Diabetic Eye Exam | | | | | | 9 | | | + + + + + | Diabetic Foot Exam | | | | | | 9 | | | + + + + + | Hemoglobin A1c | | | | | Screening | 9 | | | + + + + + | Cervical Cancer | | | | | Screening (Pap) | 1 | | | + + + + + | Statin Therapy | | | | | (optimal intensity) | 5 | | | + + + + + | Breast Cancer | | | | | Screening | 6 | | | + + + + + | Vaccine: | | 01/12/2019 | | | Dtap/Tdap/Td (2 - | 9 | | | | Td) | | | | + + + + + | Vaccine: Influenza | Completed | 06/13/2019, 10/03/2018, | | | | | 05/25/2017, Additional history | | | | | exists | | + + + + + Implants + +------+--------+ +--------+--------+--------+ | Implanted | Type | Area | Manufacture | Device | Shelf | Model | | | | | r | | Expira | / | | | | | | Identi | tion | Serial | | | | | | fier | Date | / Lot | + +------+--------+ +--------+--------+--------+ | Chips Cancellous 15cc - | | | [employer]CH - | | 10/03/ | [id number] | | [id number]: Qty: 1 | | | OSTT | | 2020 | | | on 12/12/2014 by Clarke, | | | | | | /[id number] | | Sascha Armendariz DO at [facility] | | | | | | 2-039 | | [facility] | | | | | | /[id number] | | | | | | | | 12 | + +------+--------+ +--------+--------+--------+ | Graft Infuse Bone Kit Xxs - | | | [facility] | | / | [id number] | | [id number]: Qty: 1 on | | | DANEK - DIV | | 2016 | 0 / | | 12/12/2014 by Sascha Mir | | | [employer] | | | /[id number] | | DO Kala at [facility] | | | - SFDK | | | [id number] | | [facility] | | | | | | | + +------+--------+ +--------+--------+--------+ | SpacerImplanted: Qty: 1 on | | Workforce Planner | [employer] - | | 10/04/ | [id number] | | 12/12/2014 by Sascha Mir | | ior: | MEDT | | 2022 | 9 / | | DO Kala at [facility] | | Spine | | | | /[id number] | | [facility] | | Lumbar | | | | 520 | + +------+--------+ +--------+--------+--------+ | Screw Amanda Solera 6.5x50mm - | | Workforce Planner | [facility] | | | [id number] | | [id number]: Qty: 1 on | | ior: | DANEK - DIV | | | [id number] | | 12/12/2014 by Sascha Mir | | Spine | [employer] | | | / / | | DO Kala at [facility] | | Lumbar | - [facility] | | | | | [facility] | | | | | | | + +------+--------+ +--------+--------+--------+ | Screw Amanda Solera 6.5x45mm - | | Workforce Planner | [facility] | | | [id number] | | [id number]: Qty: 1 on | | ior: | DANEK - DIV | | | [id number] | | 12/12/2014 by Sascha Mir | | Spine | [employer] | | | / / | | DO Kala at [facility] | | Lumbar | - [facility] | | | | | [facility] | | | | | | | + +------+--------+ +--------+--------+--------+ | Screw Mas G5 Slra 7.5x40 Cn - | | Workforce Planner | [facility] | | | [id number] | | [id number]: Qty: 1 | | ior: | DANEK - DIV | | | [id number] | | on 12/12/2014 by Clarke, | | Spine | [employer] | | | / / | | Sascha Armendariz DO at [facility] | | Lumbar | - [facility] | | | | | [facility] | | | | | | | + +------+--------+ +--------+--------+--------+ | Screw Amanda 8.5x40mm - | | Workforce Planner | [employer] - | | | [id number] | | [id number]: Qty: 1 on | | ior: | MEDT | | | [id number] | | 12/12/2014 by Sascha Mir | | Spine | | | | / / | | DO Kala at [facility] | | Lumbar | | | | | | [facility] | | | | | | | + +------+--------+ +--------+--------+--------+ | Set Scrw Ns G5 Brk Off Ti | | Workforce Planner | [facility] | | | [id number] | | 4.75 - [id number]: | | ior: | DANEK - DIV | | | 0 / / | | Qty: 4 on 12/12/2014 by | | Spine | [employer] | | | | | Sascha Mir DO at [facility] | | Lumbar | - [facility] | | | | | [facility] | | | | | | | | CENTER | | | | | | | + +------+--------+ +--------+--------+--------+ | Imp Spn Francis Ti Sext Ti 5.5x45 | | Workforce Planner | [facility] | | | [id number] | | - [id number]: Qty: 2 | | ior: | DANEK - DIV | | | [id number] / | | on 12/12/2014 by Clarke, | | Spine | [employer] | | | / | | Sascha Armendariz DO at [facility] | | Lumbar | - [facility] | | | | | [facility] | | | | | | | + +------+--------+ +--------+--------+--------+ + +------+--------+ +--------+--------+--------+ | Explanted | Type | Area | Manufacture | Device | Shelf | Model | | | | | r | | Expira | / | | | | | | Identi | tion | Serial | | | | | | fier | Date | / Lot | + +------+--------+ +--------+--------+--------+ | Cannulated Screw Cd Horizon | | Workforce Planner | [employer] - | | | [id number] | | SoleraExplanted: Qty: 1 on | | ior: | MEDT | | | [id number] | | 12/12/2014 at [facility] | | Spine | | | | / / | | [facility] | | Lumbar | | | | | + +------+--------+ +--------+--------+--------+ Procedures + +--------+ + + + | Procedure Name | Priori | Date/Time | Associated Diagnosis | Comments | | | ty | | | | + +--------+ + + + | DIAGNOSTIC REPORT - | | 12/04/2019 | | Results for this | | EXTERNAL SCAN | | 12:00 AM | | procedure are in the | | | | PDT | | results section. | + +--------+ + + + | ECG 12 LEAD | Routin | 09/25/2019 | Atypical chest | Results for this | | | e | 1:03 PM | pain | procedure are in the | | | | PST | | results section. | + +--------+ + + + from Last 3 Months Results DIAGNOSTIC REPORT - EXTERNAL SCAN (12/04/2019 12:00 AM PDT) + + + | Narrative | Performed At | + + + | Ordered by an | | | unspecified provider. | | + + + ECG 12 lead (09/25/2019 1:03 PM PST) + + + + + + | Component | Value | Ref Range | Performed | Pathologist | | | | | At | Signature | + + + + + + | VENTRICULAR | 98 | BPM | [facility] | | | RATE EKG | | | | | + + + + + + | ATRIAL RATE | 98 | BPM | [facility] | | + + + + + + | P-R | 150 | ms | [facility] | | | INTERVAL | | | | | + + + + + + | QRS | 90 | ms | [facility] | | | DURATION | | | | | + + + + + + | Q-T | 378 | ms | [facility] | | | INTERVAL | | | | | + + + + + + | Q-T | 482 | ms | [facility] | | | INTERVAL | | | | | | (CORRECTED) | | | | | + + + + + + | P WAVE AXIS | 55 | degrees | [facility] | | + + + + + + | QRS AXIS | 26 | degrees | [facility] | | + + + + + + | T AXIS | 54 | degrees | [facility] | | + + + + + + | INTERPRETAT | Normal sinus | | [facility] | | | ION TEXT | rhythmProlonged | | | | | | QTAbnormal ECGNo | | | | | | significant change from | | | | | | EKG 08/08/18 (done at | | | | | | [facility])Confirmed by Shi | | | | | | Rudy ANAND ([id number]) on | | | | | | 09/25/2019 1:03:19 PM | | | | + + + + + + + + | Specimen | + + | | + + + + + | Narrative | Performed At | + + + | | | + + + + +---------+ + + | Performing | Address | City/State/Zipcode | Phone Number | | Organization | | | | + +---------+ + + | [facility] | | | | + +---------+ + + from Last 3 Months Insurance + +--------+ +--------+ +---------+--------+ | Payer | Benefi | Subscriber | Effect | Phone | Address | Type | | | t Plan | ID | keisha | | | | | | / | | Dates | | | | | | Group | | | | | | + +--------+ +--------+ +---------+--------+ | [employer] | MODA | [id number] | | [phone] | | Medica | | MEDICAID HMO | HEALTH | | 015-Pr | 1 | | id | | | MDCD | | esent | | | | | | [place]MO [place] | | | | | | + +--------+ +--------+ +---------+--------+ | [facility] | I[facility] | [id number] | 05/17/ | | | Indemn | | SERVICE | YELLOW | | 2011-P | | | ity | | | HAWK | | resent | | | | + +--------+ +--------+ +---------+--------+ | [employer] | [employer] | [id number] | | [phone] | | Medica | | MEDICAID HMO | HEALTH | | 019-Pr | 1 | | id | | | MDCD | | esent | | | | | | HMO [place] | | | | | | + +--------+ +--------+ +---------+--------+ | [facility] | IHS | [id number] | 03/08/20 | | | Indemn | | SERVICE | YELLOW | | -Pre | | | ity | | | HAWK | | sent | | | | + +--------+ +--------+ +---------+--------+ + +--------+ +--------+ + + | Guarantor Name | Accoun | Relation to | Date | Phone | Billing Address | | | t Type | Patient | of | | | | | | | | | | + +--------+ +--------+ + + | Demian Nina | Person | Self [birth year] | [address] | | | al/Fam | | 1970 | [phone] | [place], [place] | | | neil | | | 1 (Home) | [address] | + +--------+ +--------+ + + | Demian Nina | Person | Self | [birth year] | [address] | | | al/Fam | | 1970 | [phone] | [place], [place] | | | neil | | | 1 (Home) | [address] | + +--------+ +--------+ + + Advance Directives + + + + + | Type | Date Recorded | Patient | Explanation | | | | Cotton Feeder | | + + + + + | Power of | | | | | Bander And Cellophaner Machine Helper | | | | + + + + + | Advance | 12/12/2014 7:30 | | | | Directive | AM | | | + + + + + + + + + + | Code Status | Date | Date | Comments | | | Activated | Inactivated | | + + + + + | Full Code | 12/12/2014 | 12/16/2014 | | | | 2:33 PM | 5:17 PM | | + + + + +
--- OUTSIDE RECORDS SUMMARY | ~2019-12-09 | XMS | Encounter Summary ---
Demographics + + + | Address | [address] | | | [place] [address] | + + + | Home Phone | | + + + | Preferred Language | Unknown | + + + | Marital Status | Single | + + + | Taoist Affiliation | [id number] | + + + [...] [place] | | | | | [address]1950 | | + + + + + | Pratibha Hester | ECON | Unknown | + | + + + + + | Demian Powell | ECON | Unknown | + | + + + + + Care Team Providers + +------+ + | Care Pulley Man Name | Role | Phone | + [...] + | 05/14/ | Refill | [facility] | Sascha Mir, | Medication Refill | | 2014 | | NEUROSURGERY [address] | DO [address] | | | | | [address] [facility] | [address] [place], [place] | | | | | [place] | [id number] | | | | | [address] | | | | | | [phone] | | | +--------+--------+ + + + [...] 2019 | Office | | MD Michael [address] [place] [address] | | | | Visit | | [place] | | | | | | [place] [address] | | | | | | [phone] | | | | | | | | +--------+ + + + + documented as of this encounter Visit Diagnoses Not on filedocumented in this encounter"
--- OUTSIDE RECORDS SUMMARY | ~2019-12-09 | XMS | Encounter Summary ---
Demographics + + + | Address | [address] | | | [place] [address] | + + + | Home Phone | | + + + | Preferred Language | Unknown | + + + | Marital Status | Single | + + + | Taoism Affiliation | CAT | + + + | Race | Unknown | + + + | Ethnic Group | Not or | + + + Author + + + | Author | [facility] | + + + | Organization | [facility] | + + + | Address | Unknown | + + + | Phone | Unavailable | + + + Support + + +---------+ + | Name | Relationship | Address | Phone | + + +---------+ + | Alisia Nina | ECON | Unknown | | + + +---------+ + Care Team Providers + +------+ + | Care Supervisor Uranium Processing Name | Role | Phone | + [...] | | Therapy | Morbid | Jen Gross, | [address] | | | | | obesity | AGACNP [address] | | | | | (HCC) | [address] | Mailcode: | | | | | Procedures | [place], | [facility] | | | | | PHYSICAL | [place] | for Health | | | | | THERAPY | [address] | and Healing, | | | | | REFERRAL | Phone: | Building 1, | | | | | | [phone] | [address] | | | | | | Fax: | [place], [place] | | | | | | [phone] | [address] | | | | | | | Phone: | | | | | | | [phone] | | | | | | | Fax: | | | | | | | [phone] | +--------+--------+ + + + + Encounter Details +--------+---------+ + + + | Date | Type | Department | Care Team | Description | +--------+---------+ + + + | 06/27/ | Office | [facility] | Edith Gil, | Morbid obesity (HCC) | | 2019 | Visit | Therapy Services at | PT,DPT [address] | (Primary Dx) | | | | [facility] | [facility] | | | | | [address] | [place], [place] | | | | | Mailcode: [place] | [address] | | | | | for Health and | | | | | | Brigette, [facility] [address] | | | | | | [place] [address] | | | | | | [phone] | | | +--------+---------+ + + + [...] children or pets No bending to load hat and cap opener No carrying laundry basket No bending to [...] in this encounter Progress Notes Edith Gil PT,DPT - 06/27/2019 11:45 AM PST Insurance: Payor: [facility] [place] / Plan: [facility] [place] / Product Type: Medicaid / Non-Medicare [facility] PHYSICAL THERAPY EVALUATION Past Medical History: Diagnosis [...] day prior to colonoscopy as directed by [facility]. Discard remaining half jug. Indications: Bowel Evacuation, [...] y.o. person here for pre-op appointment for [facility] surgical program. Activity limitations and participation [...] Group Left 06/27/2019 Right 06/27/2019 Shoulder Elevation 12/10 5/5 Shoulder Abduction 5/ 5/5 Elbow Flexion 5/5 5/5 Elbow Extension [...] Log roll technique Strength training: Access Code: [email or web address] URL: [email or web address] SoupMan/ Date: 06/27/2019 Prepared by: Dennise Gil Exercises [...] Moderate - Moderate complexity Complexity: Moderate - 64396 The patient requires services that can be [...] regarding any change in their status. Edith Gil, PT,DPT [facility] PHYSICAL THERAPY SERVICES AT [facility] Scheduled Appointment time: 11:45 AM The patient was seen for a total of 40 minutes of treatment time. 40 minutes was in direct contact care as described above and on completed flow sheets. Treatment Interventions duration in minutes: Procedure:Physical Therapy Evaluation Authorization information for first visit and progress reports Procedure Codes: Re-evaluation 72095, Therapeutic Exercise 09051, Manual Therapy 70576, Th erapeutic Activities 60109, Neuromuscular Reeducation 44400, Gait Training 10815 and Self-ca re ADL 12963 Minutes per session: 45 Total number of visits: 1 Frequency: discharge Duration: n/a (must exceed or match Medicare service period request) Service period from: 06/27/2019 to: - (Medicare must match duration or be no greater than 90 days if proposed duration is greater than 3 months) Start of care: 06/27/2019 Referral information Authorizing Provider: JEN RIDLEY [[id number]] Onset/Referral Date: 05/03/19 Primary/Referral Diagnosis: No diagnosis found. Next progress report 08/26/2019 Insurance: Payor: [facility] [place] / Plan: [facility] [place] / Product Type: Medicaid / Number visits authorized: 1 Number visits used: 1 Outcome Measure 06/27/2019 Activity 1 (3 point increase is significant for any one activity): 5 (Lose weight) Activity 2: 5 (walk 2.5 miles per day) . documented in thi s encounter Plan of Treatment +--------+ + + [...] | | | | | | [place] [address] | | | | | | [phone] | | | | | | | | +--------+ + + + + | 01/10/ | Appointment | Gastroenterology | Guillermo Quach MD | | | 2019 | | | [address] | | | | | | [place], | | | | | | [place] [address] | | | | | | [phone] | | | | | | | | +--------+ + + + + documented as of this encounter Visit Diagnoses + + | Diagnosis | + + | Morbid obesity (HCC) - Primary Morbid obesity | + + documented in this encounter
--- OUTSIDE RECORDS SUMMARY | ~2019-12-09 | XMS | Encounter Summary ---
Demographics + + + | Address | [address] | | | [place] [address] | + + + | Home Phone | | + + + | Preferred Language | Unknown | + + + | Marital Status | Single | + + + | Episcopal Affiliation | 1041 | + + + [...] [place] | | | | | [address] | | + + + + + | Pratibha Hester | ECON | Unknown | + | + + + + + | Demian Powell | ECON | Unknown | + | + + + + + Care Team Providers + +------+ + | Care Sleeve Baster Name | Role | Phone | + +------+ + | Jannette Boyle PA-C | PCP | | + +------+ + Encounter Details +--------+ + + + + | Date | Type | Department | Care Team | Description | +--------+ + + + + | 02/28/ | Orders Only | [facility] | Provider, | | | 2019 | | SYSTEM GENERIC OP | MD [address] | | | | | [address] | [address] | | | | | [address] [place], [place] | [place] [address] | | | | | [address] | | | | | | [phone] | | | +--------+ + + + [...] 2019 | Office | | MD Michael [address] [place] [address] | | | | Visit | | Ed Lopes | | | | | | [place] [address] | | | | | | [phone] | | | | | | | | +--------+ + + + + documented as of this encounter Visit Diagnoses Not on filedocumented in this encounter"
--- OUTSIDE RECORDS SUMMARY | ~2019-12-09 | XMS | Encounter Summary ---
Demographics + + + | Address | [address] | | | [place] [address] | + + + | Home Phone | | + + + | Preferred Language | Unknown | + + + | Marital Status | Single | + + + | Evangelical Affiliation | 1041 | + + + [...] [place] | | | | | [address] | | + + + + + | Pratibha Hester | ECON | Unknown | + | + + + + + | Demian Powell | ECON | Unknown | + | + + + + + Care Team Providers + +------+ + | Care Web Programmer Name | Role | Phone | + [...] Description | +--------+--------+ + + + | 06/20/ | Refill | [facility] | Char Duque | Medication Refill | | 2019 | | PLASTIC SURGERY AND | B, PARKING LINE PAINTER [address] | | | | | DERMATOLOGY [address] | [address] | | | | | [address] | [place] | | | | | [place] | [id number] | | | | | [address] | | | | | | [phone] | | | +--------+--------+ + + + [...] | Office | | MD Michael [address] [place] [address] | | | | Visit | | Ed Lopes | | | | | | [place] [address] | | | | | | [phone] | | | | | | | | +--------+ + + + + documented as of this encounter Visit Diagnoses Not on filedocumented in this encounter"
--- OUTSIDE RECORDS SUMMARY | ~2019-12-09 | XMS | Encounter Summary ---
Demographics + + + | Address | [address] | | | [place] [address] | + + + | Home Phone | | + + + | Preferred Language | Unknown | + + + | Marital Status | Single | + + + | Gnosticist Affiliation | 1041 | + + + | Race | Unknown | + + + | Ethnic Group | Unknown | + + + Author + + + | Author | [facility] | | | and [place] | + + + | Organization | [facility] | | | [...] [place] | | | | | [address] | | + + + + + | Pratibha Hester | ECON | Unknown | + | + + + + + | Demian Powell | ECON | Unknown | + | + + + + + Care Team Providers + +------+ + | Care Embedded Firmware Engineer Name | Role | Phone | [...] + + | 02/14/ | Telephone | [facility] | Sascha Mir, | Other | | 2014 | | NEUROSURGERY [address] | DO [address] | | | | | [address] | [address] [place], [place] | | | | | [place] | [address] | | | | | [address] | | | | | | [phone] | | | +--------+ + + + [...] | Office | | MD Michael [address] [place] [address] | | | | Visit | | Ed Lopes | | | | | | [place] [address] | | | | | | [phone] | | | | | | | | +--------+ + + + + documented as of this encounter Visit Diagnoses Not on filedocumented in this encounter"
--- OUTSIDE RECORDS SUMMARY | ~2019-12-09 | XMS | Encounter Summary ---
Demographics + + + | Address | [address] | | | [place] [address] | + + + | Home Phone [...] + + + | Author | [facility] | | | and [place] | + + + | Organization | [facility] | | | [...] [place] | | | | | [address] | | + + + + + | Pratibha Hester | ECON | Unknown | + | + + + + + | Demian Powell | ECON | Unknown | + | + + + + + Care Team Providers + +------+ + | Care Biomedical Photographer Name | Role | Phone | + +------+ + PCP | Unavailable | + +------+ + Encounter Details +--------+ + + + + | Date | Type | Department | Care Team | Description | +--------+ + + + + | 05/31/ | Hospital | [facility] | | | | 1999 | Encounter | MED [facility] INTRA OP | | | | | | [address] | | | | | | [place] | | | | | | [address] | | | | | | [phone] | | | +--------+ + + + [...] 2019 | Office | | MD Michael [address] [place] [address] | | | | Visit | | Ed Lopes | | | | | | [place] [address] | | | | | | [phone] | | | | | | | | +--------+ + + + + documented as of this encounter Visit Diagnoses Not on filedocumented in this encounter"
--- OUTSIDE RECORDS SUMMARY | ~2019-12-09 | XMS | Clinical Summary ---
Demographics + + + | Address | [address] | | | [place] [address] | + + + | Home Phone [...] Team Providers + +------+ + | Care Stuffed Casing Tier Name | Role | Phone | + +------+ + | Gracie Lewis PA-C | PCP | | + +------+ + Source Comments WHITNEY is fully live on both [facility] and [facility] In[facility] Allergies + + + + [...] | | + + + +---------+------+------+-------+ | METFORMIN HCL | Take by mouth. | | 0 | | | Activ | | (METFORMIN [...] e | + + + +---------+------+------+-------+ | peg-electrolyte | Take 6000ml total | 8000 mL | 0 | 07/2 | | Activ | | [phone] -5.86 | (1.5 jugs) by mouth | | | 5/20 | | e | | gram oral recon | starting on the day | | | 19 | | | | soln | prior [...] | | + + + +---------+------+------+-------+ | atorvastatin [...] e | + + + +---------+------+------+-------+ | insulin glargine | Inject 60 Units | | 0 | | | Activ | | 100 unit/mL | under the skin | | | | | e | | subcutaneous | (SUBC) once daily at | | | | | | | solution | bedtime. | | | | | | + + + +---------+------+------+-------+ | omeprazole 20 mg | Take 1 capsule by | 30 | 2 | 06/09 | | Activ | | oral capsule,delayed [...] Noted Date | + + + | Severe obesity | 06/26/2019 | + + + | ETD (eustachian tube dysfunction) | 04/01/2014 | + + + | OME (otitis media with effusion) | 04/01/2014 | + + + | Conductive hearing loss in right ear | 04/01/2014 | + + + | Dizziness | 04/01/2014 | + + + | Nausea | 04/01/2014 | + + + | GERD (gastroesophageal [...] | | | | | | [place] [address] | | | | | | [phone] | | | | | | | | +--------+ + + + + | 01/10/ | Appointment | Gastroenterology | uGillermo Quach MD | | | 2019 | | | [address] | | | | | | [place], | | | | | | [place] [address] | | | | | | [phone] | | | | | | | | +--------+ + + + + + + + + + | Health Maintenance | Due Date | Last Done | Comments | + + + + + | Pneumococcal | | 07/07/2010, 07/07/2010, | | | vaccination ( | | 07/07/2010 | | | - PPSV23) | | | | + + + + + | Influenza (Flu) | Completed | 06/13/2019, 10/03/2018, | | | vaccination | | 05/25/2017, Additional history | | [...] | | | + +--------+ +--------+-------+---------+--------+ | [employer]LEMENT[employer] 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
--- OUTSIDE RECORDS SUMMARY | ~2019-12-09 | XMS | Encounter Summary ---
Demographics + + + | Address | [address] | | | [place] [address] | + + + | Home Phone [...] Author | [facility] | + + + | Organization | [facility] | + + + | Address | Unknown | + + + | Phone | Unavailable | + + + Support + + +---------+ + | Name | Relationship | Address | Phone | + + +---------+ + | Alisia Nina | ECON | Unknown | | + + +---------+ + Care Team Providers + +------+ + | Care Dimensional Engineer Name | Role | Phone | + +------+ + | Gracie Lewis PA-C | PCP | | + +------+ + Encounter Details +--------+ + + + + | Date | Type | Department | Care Team | Description | +--------+ + + + + | 03/07/ | Transcribe | [facility] | Transcribe | | | 2019 | Orders | [facility] [address] | Encounter, Provider, | | | | | [address] Mailcode: | [address] | | | | | [address] [place] for | [place] [address] | | | | | Health and Healing, | | | | | | [address] | | | | | | [place], [place] | | | | | | [address] | | | | | | [phone] | | | +--------+ + + + [...] | | | | | | [place] [address] | | | | | | [phone] | | | | | | | | +--------+ + + + + | 01/10/ | Appointment | Gastroenterology | Guillermo Quach MD | | | 2019 | | | [address] | | | | | | [place] | | | | | | [place] [address] | | | | | | [phone] | | | | | | | | +--------+ + + + + + + +--------+ + + | Name | Type | Priori | Associated Diagnoses | Order Schedule | | | | ty | | | + + +--------+ + + | EGD | Procedures | Routin | History of | Expected: 03/07/2019 | | | | e | pancreatitis Other | | | | | | chronic pain Morbid | | | | | | obesity (HCC) | | + + +--------+ + + | COLONOSCOPY | Procedures | Routin | History of | Expected: 03/07/2019 | | | | e | pancreatitis Other | | | | | | chronic pain Morbid | | | | | | obesity (HCC) | | + + +--------+ + + [...]
--- OUTSIDE RECORDS SUMMARY | ~2019-12-09 | XMS | Encounter Summary ---
Demographics + + + | Address | [address] | | | [place] [address] | + + + | Home Phone [...] + + + | Author | [facility] | | | and [place] | + + + | Organization | [facility] | | | [...] [place] | | | | | [address] | | + + + + + | Pratibha Hester | ECON | Unknown | + | + + + + + | Demian Powell | ECON | Unknown | + | + + + + + Care Team Providers + +------+ + | Care Iron Piler Name | Role | Phone | + [...] [address] [place] | | | | | [place] | [place] [address] | | | | | [address] | [phone] | | | | | [phone] | | | +--------+--------+ + + + [...] 2019 | Office | | MD Michael [address] [place] [address] | | | | Visit | | Ed Lopes | | | | | | [place] [address] | | | | | | [phone] | | | | | | | | +--------+ + + + + documented as of this encounter Visit Diagnoses Not on filedocumented in this encounter"
--- OUTSIDE RECORDS SUMMARY | ~2019-12-09 | XMS | Encounter Summary ---
Demographics + + + | Address | [address] | | | [place] [address] | + + + | Home Phone [...] + + | Author | [facility] | + + + | Organization | [facility] | + + + | Address | Unknown | + + + | Phone | Unavailable | + + + Support + + +---------+ + | Name | Relationship | Address | Phone | + + +---------+ + | Alisia Nina | ECON | Unknown | | + + +---------+ + Care Team Providers + +------+ + | Care Orchard Hand Name | Role | Phone | + +------+ + | Gracie Lewis PA-C | PCP | | + +------+ + Encounter Details +--------+ + + + + | Date | Type | Department | Care Team | Description | +--------+ + + + + | 04/24/ | Abstract | Dig[facility]ive Health | Clinic, Surgery | | | 2019 | | [place] [facility] [address] | | | | | | [address] | | | | | | Mailcode: [place] | | | | | | for Health and | | | | | | Healing, [address] | | | | | | [place], [place] | | | | | | [address] | | | | | | [phone] | | | +--------+ + + + [...] | | 2019 | Encounter | | [address] | | | | | | [place] | | | | | | [place] [address] | | | | | | [phone] | | | | | | | | +--------+ + + + + | 01/10/ | Appointment | Gastroenterology | Guillermo Quach MD | | | 2019 | | | [address] | | | | | | [place] | | | | | | [place] [address] | | | | | | [phone] | | | | | | | | +--------+ + + + + documented as of this encounter Visit Diagnoses Not on filedocumented in this encounter"
--- OUTSIDE RECORDS SUMMARY | ~2019-12-09 | XMS | Encounter Summary ---
Demographics + + + | Address | [address] | | | [place] [address] | + + + | Home Phone [...] [place] | | | | | [address] | | + + + + + | Pratibha Hester | ECON | Unknown | + | + + + + + | Demian Powell | ECON | Unknown | + | + + + + + Care Team Providers + +------+ + | Care Senior Business Development Manager Name | Role | Phone | [...] + | 05/14/ | Refill | [facility] | Sascha Mir, | Medication Refill | | 2014 | | NEUR[address]URGERY [address] | DO [address] | | | | | [address] [facility] [address] | [address] [place], [place] | | | | | [place] | [id number] | | | | | [address] | | | | | | [phone] | | | +--------+--------+ + + + [...] | Office | | MD Michael [address] [place] [address] | | | | Visit | | Ed Lopes | | | | | | [place] [address] | | | | | | [phone] | | | | | | | | +--------+ + + + + documented as of this encounter Visit Diagnoses Not on filedocumented in this encounter"
--- OUTSIDE RECORDS SUMMARY | ~2019-12-09 | XMS | Encounter Summary ---
Demographics + + + | Address | [address] | | | [place] [address] | + + + | Home Phone | | + + + | Preferred Language | Unknown | + + + | Marital Status | Single | + + + | Yazidi Affiliation | 1041 | + + + | Race | Unknown | + + + | Ethnic Group | Unknown | + + + Author + + + | Author | [facility] | | | and [place] | + + + | Organization | [facility] | | | [...] [place] | | | | | [address] | | + + + + + | Pratibha Hester | ECON | Unknown | + | + + + + + | Demian Powell | ECON | Unknown | + | + + + + + Care Team Providers + +------+ + | Care Coding And Reimbursement Specialist Name | Role | Phone | [...] +--------+ + + + + + | Denied | Specialty | Physical | Diagnoses | Luisito, | Ioana, | | | Services | Medicine and | Pars defect | Denilson F, | Roger Ennis MD | | | Required | Rehabilitatio | of lumbar | MD [address] | | | | n | spine | [address] | [place] | | | | | Spondylolist | [place] | [place] | | | | | hesis of | [place] [address] | [address] Phone: | | | | | lumbar | Phone: | [phone] | | | | | region | [phone] | Fax: | | | | | Degenerative | [phone] Fax: | [phone] | | | | | disc | | | | | | | disease, | [phone] | | | | | | lumbar Left | | | | | | | hip pain | | | | | | | Radiculopath | | | | | | | y of lumbar | | | | | | | region | | | | | | | Morbid | | | | | | | obesity | | | | | | | ([facility]) | | | | | | | Sacroiliitis | | | | | | | ([facility]) | | | | | | | Trochanteric | | | | | | | bursitis | | | | | | | Diabetes | | | | | | | mellitus | | | | | | | ([facility]) | | | | | | | Asthma | | | | | | | Procedures | | | | | | | 10/30 PEND | | | | | | | CALL TO PCP | | | +--------+ + + + + + Evaluate & Treat (Routine) +--------+ + + + + + | Status | Reason | Specialty | Diagnoses / | Referred By | Referred To | | | | | Procedures | Contact | Contact | +--------+ + + + + + | Denied | Specialty | Physical | Diagnoses | Jorge, | | | | Services | Therapy | Pars defect | Denilson F, | | | | Required | | of lumbar | MD [address] | | | | | | spine | [address] | | | | | | Spondylolist | [place], | | | | | | hesis of | [place] [address] | | | | | | lumbar | Phone: | | | | | | region | [phone] | | | | | | Degenerative | [phone] Fax: | | | | | | disc | | | | | | | disease, | [phone] | | | | | | lumbar Left | | | | | | | hip pain | | | | | | | Radiculopath | | | | | | | y of lumbar | | | | | | | region | | | | | | | Morbid | | | | | | | obesity | | | | | | | (HCC) | | | | | | | Sacroiliitis | | | | | | | (HCC) | | | | | | | Trochanteric | | | | | | | bursitis | | | | | | | Diabetes | | | | | | | mellitus | | | | | | | (HCC) | | | | | | | Asthma | | | +--------+ + + + + + Encounter Details +--------+---------+ + + + | Date | Type | Department | Care Team | Description | +--------+---------+ + + + | 10/27/ | Office | [facility] | Denilson Jorge | Pars defect of | | 2012 | Visit | NEUROSURGERY [address] | F, MD [address] | lumbar spine L5-S1 | | | | [address] | [place] | (Primary Dx); | | | | [place], [place] | [address] | Spondylolisthesis of | | | | [address] | [phone] | lumbar region | | | | [phone] | | L5-S1; Degenerative | | | | | | disc disease, lumbar | | | | | | L4-5; HIP PAIN, | | | | | | LEFT, CHRONIC; | | | | | | Radiculopathy of | | | | | | lumbar region L5-S1; | | | | | | Morbid obesity | | | | | | (HCC); Sacroiliitis | | | | | | (HCC); Trochanteric | | | | | | bursitis; Diabetes | | | | | | mellitus (HCC); | | | | | | Asthma; Synovial | | | | | | cyst of lumbar facet | | | | | | joint; Foraminal | | | | | | stenosis of | | | | | | lumbosacral region; | | | | | | Facet arthropathy, | | | | | | lumbosacral | +--------+---------+ + + + Social History [...] + + + | Blood Pressure | 115/67 | 10/27/2012 11:17 AM | | | | | PDT | | + + + + + | Pulse | 87 | 10/27/2012 11:17 AM | | | | | PDT | | + + + + + | Temperature | - | - | | + + + + + | Respiratory Rate | 18 | 10/27/2012 11:17 AM | | | | | PDT | | + + + + + | Oxygen Saturation | - | - | | + + + + + | Inhaled Oxygen | - | - | | | Concentration | | | | + + + + + | Weight | 110.7 kg (244 lb) | 10/27/2012 11:17 AM | | | | | PDT | | + + + + + | Height | 167.6 cm (5' 6") | 10/27/2012 11:17 AM | | | | | PDT | | + + + + + | Body Mass Index | 39.38 | 10/27/2012 11:17 AM | | | | | PDT | | + + + + + documented in this encounter Patient Instructions Patient Instructions Denilson Jorge MD - 10/27/2012 12:05 PM PDTFormatting of this n ote might be different from the original. Causes of Lumbar (Low Back) Pain Low back pain can be caused by problems with any part of the lumbar spine. A disk can herni ate (push out) and press on a nerve. Vertebrae can rub against each other or slip out of dede ce. This can irritate facet joints and nerves. It can also lead to stenosis, a narrowing of the spinal canal or foramen. Pressure from a Disk Constant wear and tear on a disk can cause it to weaken and push outward. Part of the disk may then press on nearby nerves. There are two common types of herniated disks: Contained means the soft nucleus is protruding outward. Contained herniated disk Extruded means the firm annulus has torn, letting the soft center squeeze through. Extruded herniated disk Pressure from Bone An Unstable Spine With age, a disk may thin and wear out. Vertebrae above and below the disk may begin to t ouch. This can put pressure on nerves. It can also cause bone spurs (growths) to form where the bones rub together. Stenosis Stenosis results when bone spurs narrow the foramen or spinal canal. This also puts pressur e on nerves. Slipping vertebrae can irritate nerves and joints. They can also worsen stenosi s. Spondylolisthesis In some cases, vertebrae become unstable and slip forward. This is called spondylolisthes is. [id number] [place] [address]. All rights reserve d. This information is not intended as a substitute for professional medical care. Always fo llow your healthcare professional's instructions. documented in this encounter Progress Notes Denilson Jorge MD - 10/27/2012 11:58 AM PDTFormatting of this note might be differen t from the original. Denilson Jorge MD [address] [place] [address], [address] [place] [address] FAX: NEUROSURGERY FOLLOW-UP CHIEF COMPLAINT: Lumbar spondylolisthesis with instability HISTORY OF PRESENT ILLNESS: The patient is a 42 y.o. female that I saw in February 2012 for lo w back pain with radiating lower extremity pains. She returns and overall is doing about th e same as her previous visit back in February. The patient complains of low back pain that radi ates down the posterior aspect of her thighs and lower legs clear down to her heels, bilater ally with the left side slightly worse than the right. She denies any numbness in that dist ribution, but occasionally has tingling sensations. She has done some physical therapy in t he past and she reports that her symptoms improved a lot from that. She states that her finesse n is "not too bad," At this time. She states that on her worst day she is 10/10 for pain, but on most days she is around a 1/10. She has quite smoking at this time. PAST MEDICAL HISTORY: Past Medical History Diagnosis Date Morbid obesity Diabetes mellitus Multiple allergies Chronic back pain Gastric reflux Anemia Asthma Peptic ulcer Pelvic inflammatory disease Spondylolisthesis of lumbar region Pars defect of lumbar spine Trochanteric bursitis PAST SURGICAL HISTORY: Past Surgical History Procedure Date Tonsillectomy Adenectomy Shoulder surgery Cholecystectomy CURRENT MEDICATIONS: Current Outpatient Prescriptions Medication Sig Dispense Refill HYDROCHLOROTHIAZIDE PO Take by mouth. HYDROcodone-acetaminophen (NORCO) 7.5-325 mg per tablet Take 1 tablet by mouth every 6 hours as needed. aspirin 81 mg EC tablet Take 81 mg by mouth Daily. Loratadine (CLARITIN) 10 MG CAPS Take by mouth Daily. montelukast (SINGULAIR) 10 mg tablet Take 10 mg by mouth Daily. promethazine (PHENERGAN) 25 mg tablet Take 25 mg by mouth Daily as needed. lisinopril (PRINIVIL, ZESTRIL) 10 mg tablet Take 10 mg by mouth Daily. Multiple Vitamin (MULTIVITAMIN PO) Take by mouth Daily. albuterol (PROVENTIL,VENTOLIN) 90 MCG/ACT inhaler Inhale 2 puffs into the lungs every 4 hours as needed. ferrous sulfate 325 mg tablet Take 325 mg by mouth 2 times daily (with breakfast & dinn er). IRON PO TABS CIMETIDINE PO TABS ALBUTEROL SULFATE IN NEBU; 1-2 puffs every 3-4 hours as needed ALLERGIES: Allergies Allergen Reactions Morphine Rash Lauren SOCIAL HISTORY: The patient reports that she quit smoking about 2 years ago. Her smoking use included Ciga rettes. She has never used smokeless tobacco. She reports that she does not drink alcohol or use illicit drugs. FAMILY HISTORY: Family History Problem Relation Age of Onset Stroke Sister Mental illness Sister Alcohol abuse Other Seizures Sister Heart failure Father Heart failure Sister Diabetes Sister Hypertension Mother Renal Failure Sister Arthritis Mother Arthritis Sister INTERIM PHYSICAL EXAMINATION: Blood pressure 115/67, pulse 87, resp. rate 18, height 1.676 m (5' 6"), weight 110.678 kg ( 244 lb). Body mass index is 39.38 kg/(m^2). GENERAL: Demian Nina is in no acute distress with unlabored respirations. HEENT: HEAD/FACE: Normocephalic and atraumatic. There are no areas of recent trauma. CHEST: Clear to ausculation without crackles or wheeze. HEART: Regular rate and rhythm without murmurs. SPINE: No tenderness to palpate. No deformities. EXTREMITIES: No lower extremity edema. NEUROLOGICAL EXAMINATION: MENTAL STATUS: The patient is awake, alert, and oriented. She follows simple and complex commands. She speech is fluent, her comprehends speech well, and her repeats well. She has no apparent deficits with short or terminal superintendent memory. CRANIAL NERVES: Fundoscopic Exam: The optic disc is sharp. Normal vascular pattern is visualized II: Acuity is intact. Stahl are full [...] Intrinsics 5 5 Ulnar Intrinsics 5 5 High Heel Builder Strength 5 5 Hip Flexion 5 5 Hip Extension 5 5 Knee Flexion 5 5 Knee Extension 5 5 Dorsiflexion 5 5 Extensor Hallicus Longus 5 5 Plantarflexion 5 5 SENSORY EXAM: Sensory exam shows diminished sensation to light touch or pain to the left lateral aspect o f her lower leg. REFLEXES: (2 OR 2+ IS NORMAL) REFLEX: RIGHT LEFT BICEPS 2 2 BRACHIORADIALIS 1 1 TRICEPS 1 1 PATELLAR 1 1 ACHILLES 0 0 HERNANDEZ'S ABSENT ABSENT PLANTAR DOWNGOING DOWNGOING GAIT: Gait is steady. PERIPHERAL NERVE/MISC: Tinel is negative at the wrists and elbows bilaterally. Phalen is negative. Straight leg raise is negative bilaterally. Gavin's test of the hips is negative bilaterally. RADIOGRAPHIC REVIEW: The patient's imaging was reviewed in detail with the patient today during the visit. The images show advanced spondylolisthesis similar in appearance to her previous study. There d oes appear to be severe degenerative changes at the L4-5 level as well as at the L5-S1 level . Once again evident of the bilateral pars defects at L5-S1. It appears now that there is a facet cyst on the left at L5-S1. ASSESSMENT: Encounter Diagnoses Name Primary? Pars defect of lumbar spine L5-S1 Yes Spondylolisthesis of lumbar region L5-S1 Degenerative disc disease, lumbar L4-5 HIP PAIN, LEFT, CHRONIC Radiculopathy of lumbar region L5-S1 Morbid obesity Sacroiliitis Trochanteric bursitis Diabetes mellitus Asthma Synovial cyst of lumbar facet joint Foraminal stenosis of lumbosacral region Facet arthropathy, lumbosacral Past Medical History Diagnosis Date Morbid obesity Diabetes mellitus Multiple allergies Chronic back pain Gastric reflux Anemia Asthma Peptic ulcer Pelvic inflammatory disease Spondylolisthesis of lumbar region Pars defect of lumbar spine Trochanteric bursitis PLAN: It was a pleasure visiting with this patient again today, and as always I greatly appreciat e the consideration and referral. Overall, she is doing ok, about the same as our previous visit. She would not like to pursue anything surgical at this time and would like to pursu e more in the way of conservative treatment, namely physical therapy. She has done physical therapy in the past and feels like this helped her tremendously therefore she would like to try this again. I had a lengthy discussion with the patient about her options for care including surgical a nd non-surgical options. We discussed the risks, alternatives, and benefits to surgical intervention with Ms. Nicole montejo in clinic. These risks included but were not limited to , stroke, heart attack, numb ness, weakness, paralysis, failure of fusion, failure of hardware, subsidence, adjacent segm ent degeneration, cerebrospinal fluid leak, bleeding, infection, injury to surrounding tissu es and organs, injury from positioning, injury to the nerves, and need for additional surger y. Surgical options were discussed and the technique [...] her with the best possible outcome. I spent 30 minutes in visit with Demian Nina today with the majority of time spent coun selling the patient on her recovery and coordinating her future care. ELECTRONICALLY SIGNED BY: Denilson Jorge MD, 10/27/2012 16:53 documented in th is encounter Plan of Treatment +--------+ + + + + | Date | Type | Specialty | Care Team | Description | +--------+ + + + + | 12/11/ | Virtual | Sleep Medicine | Jasiel Loo | | | 2019 | Office | | MD Michael [address] [place] [address] | | | | Visit | | [facility] | | | | | | [place] [address] | | | | | | [phone] | | | | | | | | +--------+ + + + + + + +--------+ + + | Name | Type | Priori | Associated Diagnoses | Order Schedule | | | | ty | | | + + +--------+ + + | Ambulatory referral | Outpatient | Routin | Pars defect of | 1 Occurrences | | to Physical Therapy | Referral | e | lumbar spine L5-S1 | starting 10/27/2012 | | | | | Spondylolisthesis of | until 10/27/2013 | | | | | lumbar region L5-S1 | | | | | | Degenerative disc | | | | | | disease, lumbar L4-5 | | | | | | HIP PAIN, LEFT, | | | | | | CHRONIC | | | | | | Radiculopathy of | | | | | | lumbar region L5-S1 | | | | | | Morbid obesity | | | | | | ([facility]) Sacroiliitis | | | | | | ([facility]) Trochanteric | | | | | | bursitis Diabetes | | | | | | mellitus ([facility]) | | | | | | Asthma | | + + +--------+ + + | Ambulatory referral | Outpatient | Routin | Pars defect of | 1 Occurrences | | to Physical Medicine | Referral | e | lumbar spine L5-S1 | starting 10/27/2012 | | Rehab | | | Spondylolisthesis of | until 10/27/2013 | | | | | lumbar region L5-S1 | | | | | | Degenerative disc | | | | | | disease, lumbar L4-5 | | | | | | HIP PAIN, LEFT, | | | | | | CHRONIC | | | | | | Radiculopathy of | | | | | | lumbar region L5-S1 | | | | | | Morbid obesity | | | | | | ([facility]) Sacroiliitis | | | | | | ([facility]) Trochanteric | | | | | | bursitis Diabetes | | | | | | mellitus ([facility]) | | | | | | Asthma | | + + +--------+ + + documented as of this encounter Visit Diagnoses + + | Diagnosis | + + | Pars defect of lumbar spine L5-S1 - Primary Acquired spondylolisthesis | + + | Spondylolisthesis of lumbar region L5-S1 Acquired spondylolisthesis | + + | Degenerative disc disease, lumbar L4-5 Degeneration of lumbar or lumbosacral | | intervertebral disc | + + | HIP PAIN, LEFT, CHRONIC Pain in joint, pelvic region and thigh | + + | Radiculopathy of lumbar region L5-S1 Thoracic or lumbosacral neuritis or radiculitis, | | unspecified | + + | Morbid obesity (HCC) Morbid obesity | + + | Sacroiliitis ([facility]) Sacroiliitis, not elsewhere classified | + + | Trochanteric bursitis Enthesopathy of hip region | + + | Diabetes mellitus ([facility]) Type II or unspecified type diabetes mellitus without mention | | of complication, not stated as uncontrolled | + + | Asthma Unspecified asthma | + + | Synovial cyst of lumbar facet joint Cyst of bone (localized), unspecified | + + | Foraminal stenosis of lumbosacral region Spinal stenosis, lumbar region, without | | neurogenic claudication | + + | Facet arthropathy, lumbosacral Lumbosacral spondylosis without myelopathy | + + documented in this encounter
--- OUTSIDE RECORDS SUMMARY | ~2019-12-09 | XMS | Encounter Summary ---
Demographics + + + | Address | [address] | | | [place] [address] | + + + | Home Phone | | + + + | Preferred Language | Unknown | + + + | Marital Status | Single | + + + | Advent Affiliation | 1041 | + + + | Race | Unknown | + + + | Ethnic Group | Unknown | + + + Author + + + | Author | [facility] | | | and [place] | + + + | Organization | [facility] | | | and [...] [place] | | | | | [address] | | + + + + + | Pratibha Hester | ECON | Unknown | + | + + + + + | Demian Powell | ECON | Unknown | + | + + + + + Care Team Providers + +------+ + | Care Javascript Application Developer Name | Role | Phone | + +------+ + PCP | Unavailable | + +------+ + Encounter Details +--------+ + + + + | Date | Type | Department | Care Team | Description | +--------+ + + + + | 04/20/ | Abstract | [place] [facility] | [facility] | | | 2011 | | Conversion Location | SR | | | | | [address] | | | | | | [place], [place] | | | | | | [address] | | | | | | [phone] | | | +--------+ + + + [...] + + + | Blood Pressure | 124/72 | 12/31/2009 12:00 AM | | | | | PDT | | + + + + + | Pulse | - | - | | + [...] + + + + | Weight | 107 kg (236 lb) | 03/18/2010 12:00 AM | | | | | PDT | | + + + + + | Height | 162 cm (5' 3.78") | 12/31/2009 12:00 AM | | | | | PDT | | + + + + + | Body Mass Index | 40.79 | 12/31/2009 12:00 AM | | | | | PDT | | + + + + + documented in this encounter Plan of Treatment +--------+ + + + + | Date | Type | Specialty | Care Team | Description | +--------+ + + + + | 12/11/ | Virtual | Sleep Medicine | Jasiel Loo | | | 2019 | Office | | MD Michael [address] [place] [address] | | | | Visit | | [facility] | | | | | | [place] [address] | | | | | | [phone] | | | | | | | | +--------+ + + + + documented as of this encounter Visit Diagnoses Not on filedocumented in this encounter
--- OUTSIDE RECORDS SUMMARY | ~2019-12-09 | XMS | Encounter Summary ---
Demographics + + + | Address | [address] | | | [place] [address] | + + + | Home Phone | | + + + | Preferred Language | Unknown | + + + | Marital Status | Single | + + + | Zoroastrianism Affiliation | 1041 | + + + | Race | Unknown | + + + | Ethnic Group | Unknown | + + + Author + + + | Author | [facility] | | | and [place] | + + + | Organization | [facility] | | | [...] [place] | | | | | [address] | | + + + + + | Pratibha Hester | ECON | Unknown | + | + + + + + | Demian Powell | ECON | Unknown | + | + + + + + Care Team Providers + +------+ + | Care Hospital Supervisor Name | Role | Phone | + +------+ + PCP | Unavailable | + +------+ + Encounter Details +--------+ + + + + | Date | Type | Department | Care Team | Description | +--------+ + + + + | 05/31/ | Hospital | [facility] | | | | 1999 | Encounter | [facility] | | | | | | [address] | | | | | | [place] | | | | | | [address] | | | | | | [phone] | | | +--------+ + + + [...] | Office | | MD Michael [address] [place] [address] | | | | Visit | | [address] | | | | | | [place] [address] | | | | | | [phone] | | | | | | | | +--------+ + + + + documented as of this encounter Visit Diagnoses Not on filedocumented in this encounter"
--- OUTSIDE RECORDS SUMMARY | ~2019-12-09 | XMS | Encounter Summary ---
Demographics + + + | Address | [address] | | | [place] [address] | + + + | Home Phone | | + + + | Preferred Language | Unknown | + + + | Marital Status | Single | + + + | Worship Affiliation | CAT | + + + [...] Team Providers + +------+ + | Care Subscription Clerk Name | Role | Phone | [...] Quach MD | | | 2020 | Encounter | | [address] | | | | | | [place], | | | | | | [place] [address] | | | | | | [phone] | | | | | | | | +--------+ + + + + | 01/10/ | Appointment | Gastroenterology | Guillermo Quach MD | | | 2019 | | | [address] | | | | | | [place], | | | | | | [place] [address] | | | | | | [phone] | | | | | | | | +--------+ + + + + documented as of this encounter Visit Diagnoses Not on filedocumented in this encounter"
--- OUTSIDE RECORDS SUMMARY | ~2019-12-09 | XMS | Encounter Summary ---
Demographics + + + | Address | [address] | | | [place] [address] | + + + | Home Phone [...] [place] | | | | | [address] | | + + + + + | Pratibha Hester | ECON | Unknown | + | + + + + + | Demian Powell | ECON | Unknown | + | + + + + + Care Team Providers + +------+ + | Care Operator Automated Process Name | Role | Phone | + +------+ + | Quentin Manriquez PA-C | MARCK | | + +------+ + Reason for Visit +--------+ + | Reason | Comments | +--------+ + | Other | Fax | +--------+ + Encounter Details +--------+ + + + + | Date | Type | Department | Care Team | Description | +--------+ + + + + | 12/09/ | Telephone | [facility] | Sascha Mir, | Other (Fax) | | 2014 | | NEUROSURGERY [address] | DO [address] | | | | | [address] [facility] [address] | [address] [place], [place] | | | | | [place] | [id number] | | | | | [address] | | | | | | [phone] | | | +--------+ + + + [...] 2019 | Office | | MD Michael [address] [place] [address] | | | | Visit | | Ed [address] | | | | | | [place] [address] | | | | | | [phone] | | | | | | | | +--------+ + + + + documented as of this encounter Visit Diagnoses Not on filedocumented in this encounter"
--- OUTSIDE RECORDS SUMMARY | ~2019-12-09 | XMS | Encounter Summary ---
Demographics + + + | Address | [address] | | | [place] [address] | + + + | Home Phone | | + + + | Preferred Language | Unknown | + + + | Marital Status | Single | + + + | Protestant Affiliation | 1041 | + + + [...] [place] | | | | | [address] | | + + + + + | Pratibha Hester | ECON | Unknown | + | + + + + + | Demian Powell | ECON | Unknown | + | + + + + + Care Team Providers + +------+ + | Care Identity Management Consultant Name | Role | Phone | + [...] pain | [address] | [facility] | | | | | Cervical | [place], [place] | [place], [place] | | | | | radicular | [address] | [address] Phone: | | | | | pain | Phone: | [phone] | | | | | | [phone] | Fax: | | | | | | Fax: | [phone] | | | | | | [phone] | | +--------+ + + + + + Reason for Visit + + + | Reason | Comments | + + + | Follow-up | Back pain | + + + Encounter Details +--------+---------+ + + + | Date | Type | Department | Care Team | Description | +--------+---------+ + + + | 06/04/ | Office | [facility] | Sascha Mir, | Spondylolisthesis, | | 2014 | Visit | NEUR[address]URGERY [address] | DO [address] | lumbar region | | | | [address] | [address] [place], [place] | (Primary Dx); S/P | | | | [place] | [address] | lumbar fusion; | | | | [address] | | Lumbar radicular | | | | [phone] | | pain; Cervical | | | [...] and lumbar spine. Please follow-up with Dr. Tripltet for a consultation and nerve conduction study. Please follow-up with me after. 11 :54 AM PDT documented in this encounter Progress Notes Sascha Mir DO - 06/04/2015 11:54 AM PDTFormatting of this note might be different fro m the original. Sascha Mir DO [address] [facility] [address] [place] [address] FAX: NEUROSURGERY FOLLOW-UP CHIEF COMPLAINT: Chief Complaint [...] the patient is not pleased with her formerly [facility] ent. PAST MEDICAL HISTORY: Past Medical History [...] Lumbar Interbody Fusion; Surgeon: Sascha Mir, DO; Oleksandr ocation: [facility] OR CURRENT MEDICATIONS: Current [...] | Office | | MD Michael [address] [place] [address] | | | | Visit | | Ed [facility] | | | | | | [place] [address] | | | | | | [phone] | | | | | | | [...] views of the lumbar spine. Posterior | [facility] | | pedicle screw and nayan and [...] + + | [facility] | [address] | [place], [place] | [phone] | | [facility] | | [address] | | | - IMAGING | | | | + + + + + XR Cervical Spine 4 or 5 Vws (06/04/2015 12:52 PM PDT) + + | Specimen | + + | | + + + + + | Narrative | Performed At | + + + | CERVICAL SPINE: 06/04/2015 12:51 PM CLINICAL HISTORY: Cervical | [facility] | | radiculopathy COMPARISON: MRI cervical spine [...] + | Antoine Steele Results In - 06/04/2015 3:04 PM PDT [...] [address] | [place] | [phone] | | [facility] | | [address] | | | - IMAGING | | [...]
--- OUTSIDE RECORDS SUMMARY | ~2019-12-09 | XMS | Encounter Summary ---
Demographics + + + | Address | [address] | | | [place] [address] | + + + | Home Phone | | + + + | Preferred Language | Unknown | + + + | Marital Status | Single | + + + | Mandaen Affiliation | CAT | + + + [...] Team Providers + +------+ + | Care Upper Cutter Out Name | Role | Phone | + +------+ + | Gracie Lewis PA-C | PCP | | + +------+ + Reason for Visit + + + | Reason | Comments | + + + | Bariatric Nutrition | | + + + Intake Referral (Routine) + +--------+ + + + + | Status | Reason | Specialty | Diagnoses / | Referred By | Referred To | | | | | Procedures | Contact | Contact | + +--------+ + + + + | Authorized | | Nutrition | Diagnoses | Milady Lewis | | | | | Morbid | Gracie J, | [facility] | | | | | (severe) | PA-C | [address] [address] | | | | | obesity due | [facility] [address] | | | | | to excess | [place] | Center for | | | | | calories | Health | Health and | | | | | Obesity, | Center [address] | Healing, | | | | | unspecified | | [address] | | | | | | [place] | [place], [place] | | | | | | Way [address] | [address] | | | | | | [address] | Phone: | | | | | | [place], | [phone] | | | | | | [place] [address] | Fax: | | | | | | Phone: | [phone] | | | | | | [phone] | | | | | | | Fax: | | | | | | | [phone] | | + +--------+ + + + + Encounter Details +--------+---------+ + + + | Date | Type | Department | Care Team | Description | +--------+---------+ + + + | 06/27/ | Office | Digestive Health | Pasdera, Eli, | Severe obesity (BMI | | 2019 | Visit | Center at [facility] [address] | [address] | >= 40) (HCC) | | | | [facility] | [facility] [address] | (Primary Dx); Type 2 | | | | for Health and | [place], [place] | diabetes mellitus | | | | Healing, [address] | [address] | with other specified | | | | [place], [place] | | complication, with | | | | [address] | | long-term current | | | | [phone] | | 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 (HCC) | +--------+---------+ + + + Social History [...] documented as of this encounter Progress Notes Eli Rodas, RD - 06/27/2019 2:00 PM PSTFormatting of this note might be different fr om the original. Referring Provider: Gracie Lewis PA-C [facility], Pre-Bariatric Surgery Evaluation Initial diet consultation prior to having Lap Band surgery or sleeve gastrectomy or gastric bypass. Documented Time of Visit: 1:55 until 2:40 (45 minutes gnsm-or-zrdn with patient) SUBJECTIVE: Pt comes in alone. Pt shares she usually skips breakfast but snacks a lot in af ternoons and evenings. Pt shares she eats a lot of pizza and drinks a lot of soda. 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 Will finish in two years. When reviewing the "habits to include prior to surgery" in today's appointment, pt consiste ntly avoided eye contact and looked at the wall. She also frequently looked at her phone (cathryn sortoed to be texting), and once asked, "How long is this appointment?" This practitioner penny cked in a few times with the patient to see how she was feeling about the recommendations an d how she was doing in the appointment. Pt shared she was 'just worried about getting a ride home.' Patient viewed online seminar prior to visit. What have you been doing to prepare for surgery: talking to people that have had surgery, m y 600# life Questions/Information desired today: none Goals & reasons why patient wants to have bariatric surgery: be able to be more active, not snack anymore Food Allergies: Yes "raw fruits & vegetables"--> itchy throat Food Intolerances: No Lactose Intolerance: Yes Emotional Eating: Yes, due to stress from school and money Recent weight changes: Yes, gained 30# but has started losing in past 3 months since starte d on metformin Previous weight loss attempts: Rx diet pills Are you able exercise? Limited by back pain/injury Current Physical Exercise: No intentional exercise; pt shares she has access gym on the [employer] 24 hr food recall: Pt has a very difficult time remembering what she ate yesterday Awoke at 7 am Skipped breakfast 10am 32 oz sweet iced tea (over course of day) 12:30 2 slices Pepperoni pizza 1pm 3 packages Halloween Candy 3pm Ham & cheese sandwich 5:30pm mac & cheese 6:30pm 1 can coke (didn't have any money to buy more) 8pm Leftover mac & cheese Typical Snacks: crackers with butter, cereal with milk, scrambled eggs, candy, cookies, ice cream, chips, pretzels Beverages: 0-24 oz water/day, 3 cans regular soda/day, 32 oz sweet tea 3x/week, occasional juice/gatorade OBJECTIVE: Height: Ht Readings from Last 1 Encounters: 06/27/19 1.626 m (5' 4") Weight: Wt Readings from Last 1 Encounters: 06/27/19 114 kg (251 lb 6.4 oz) BMI: 43.15 kg/m Past Medical History: Past Medical History: Diagnosis Date Abdominal pain Anxiety Chest pain Diabetes mellitus (HCC) Fainting Gallstones Gastric ulcer GERD (gastroesophageal reflux disease) Hx of degenerative disc disease Irregular periods Kidney disease Liver disease N&V (nausea and vomiting) Medications: See list in Epic snap shot Medications for Diabetes: metformin, victoza, 60 u glargine qHS, novolog with meals (slidin g scale) Checking blood glucose: yes, checks once daily before dinner, usually in 400-500s Dietary Supplements: none Labs: see Results Review for current labs (if available) Nutrition Diagnosis: Obesity as evidenced by BMI of 43.15 kg/m . Factors contributing to obesity: Emotional eating Joint pain as a barrier to physical activity Genetics Intake of excessive empty calories Pre-Surgery Diet: Provided written and verbal diet and behavior suggestions to help patient prepare for surge ry. -Eat within one hour of waking, then every 3-4 waking hours -Include protein with all meals & snacks -Use healthy plate model. -Begin keeping daily food logs -Choose foods & beverages with < 14 g sugar & < 10 g fat per serving -Eliminate liquid calories and carbonation; limit caffeine to 16 oz/day -Begin fluids from meals. Nothing during and for 30 minutes after. -Sip fluids throughout the day, aim for 64 oz/day (non-caloric, non-caffeinated, non-carbo nated) -Begin practicing mindful eating Explore exercise program options Education provided: Provided and reviewed an instructional handout (bariatric surgery notebook) with the samy t on: behavior modifications, food items, post-surgery diet progression, sample menus and vi tamin and mineral supplements needed after surgery. Information provided in writing, and use d visual aids to demonstrate food portions post-surgery and size of stomach after surgery. Patient's Comprehension: The patient is: Unreceptive Stage of change: Contemplation Barrier(s) to education: Unclear Learning style: Patient is a Visual learner and Verbal learner Expected Outcome:TBD Patient verbalizes understanding that surgery is a tool to help achieve and maintain weight loss but that surgery will not eliminate the problems that led to weight gain. Yes GOAL: The patient's goal is to have weight loss surgery to maintain weight loss and improve other health conditions. 1. Continue to practice behavioral changes to prepare for surgery. 2. Increase physical activity. 3. Review all information provided for post surgery diet progression in bariatric surger y notebook. Attend 2 pre-surgery classes. 4. Call or send [employer] message to dietitian with any questions. Contact information was provided. Follow up with dietitian 1-2 weeks after surgery at first post-op visit. Eli Rodas, MS, RDN, CSOWM, LD, CDE [facility] Bariatrics [phone] documented in this e ncounter Plan of Treatment +--------+ + + + [...] | | 2019 | Encounter | | [address] | | | | | | [place] | | | | | | [place] [address] | | | | | | [phone] | | | | | | | | +--------+ + + + + | 01/10/ | Appointment | Gastroenterology | Guillermo Quach MD | | | 2019 | | | [address] | | | | | | [place] | | | | | | [place] [address] | | | | | | [phone] | | | | | | | | +--------+ + + + + documented as of this encounter Procedures + +--------+ + + + | Procedure Name | Priori | Date/Time | Associated Diagnosis | Comments | | | ty | | | | + +--------+ + + + | ID MNT INITIAL | Routin | 06/27/2019 | Severe obesity | | | ASSESSMNT X15MIN | e | 3:01 PM | (BMI >= 40) (HCC) | | | | | PST | Type 2 diabetes | | | | | | mellitus with other | | | | | | specified | | | | | | complication, with | | | | | | long-term current | | | | | | 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 ([facility]) | | + +--------+ + + + documented in this encounter Visit Diagnoses + + | Diagnosis | + + | Severe obesity (BMI >= 40) (HCC) - Primary Morbid obesity | + + | Type 2 diabetes mellitus with other specified complication, with long-term current use | | of insulin (HCC) | + + documented in this encounter
--- OUTSIDE RECORDS SUMMARY | ~2019-12-09 | XMS | Encounter Summary ---
Demographics + + + | Address | [address] | | | [place] [address] | + + + | Home Phone [...] [place] | | | | | [address] | | + + + + + | Pratibha Hester | ECON | Unknown | + | + + + + + | Demian Powell | ECON | Unknown | + | + + + + + Care Team Providers + +------+ + | Care Border Machine Operator Name | Role | Phone [...] + + | 06/17/ | Telephone | [facility] | Sascha Mir, | Appointment | | 2014 | | NEUROSURGERY [address] | DO [address] | | | | | [address] [facility] [address] | [address] [place], [place] | | | | | [place] | [id number] | | | | | [address] | | | | | | [phone] | | | +--------+ + + + [...] 2019 | Office | | MD Michael [address] [place] [address] | | | | Visit | | Ed [place]opes | | | | | | [place] [address] | | | | | | [phone] | | | | | | | | +--------+ + + + + documented as of this encounter Visit Diagnoses Not on filedocumented in this encounter"
--- OUTSIDE RECORDS SUMMARY | ~2019-12-09 | XMS | Encounter Summary ---
Demographics + + + | Address | [address] | | | [place] [address] | + + + | Home Phone | | + + + | Preferred Language | Unknown | + + + | Marital Status | Single | + + + | Buddhist Affiliation | 1041 | + + + | Race | Unknown | + + + | Ethnic Group | Unknown | + + + Author + + + | Author | [facility] | | | and [place] | + + + | Organization | [facility] | | [...] [place] | | | | | [address] | | + + + + + | Pratibha Hester | ECON | Unknown | + | + + + + + | Demian Powell | ECON | Unknown | + | + + + + + Care Team Providers + +------+ + | Care Failure Analysis Technician Name | Role | Phone | + +------+ + | Quentin Manriquez PA-C | [facility] | | + +------+ + Encounter Details +--------+ + + + + | Date | Type | Department | Care Team | Description | +--------+ + + + + | 03/17/ | Hospital | [facility] | Amol Triplett, | Spondylolisthesis of | | 2014 | Encounter | MED CTR XRAY [address] | PA-C [address] | lumbar region | | | | [place] | [address] [place] | L5-S1; S/P lumbar | | | | [place] [address] | [place] [address] | fusion | | | | [phone] | [phone] | | | | | | | [...] | Office | | MD Michael [address] | | | | Visit | | [place] | | | | | | [place] [address] | | | | | | [phone] | | | | | | | [...] priors. FINDINGS: There is stable hardware | [facility] | | for posterior fusion from L5 through S1 with interbody hardware at | [facility] | | L5-S1. Extensive spondylosis is present [...] + + | Performing | Address | City/State[facility] | Phone Number | | Organization | | | | + + + + + | [facility] | [address] | [place] | [phone] | | [facility] | | [address] | | | - IMAGING | | | | + + + + + documented in this encounter Visit Diagnoses + + | Diagnosis | + + | Spondylolisthesis of lumbar region L5-S1 Acquired spondylolisthesis | + + | S/P lumbar fusion Arthrodesis status | + + documented in this encounter"
--- OUTSIDE RECORDS SUMMARY | ~2019-12-09 | XMS | Encounter Summary ---
Demographics + + + | Address | [address] | | | [place] [address] | + + + | Home Phone [...] [place] | | | | | [address] | | + + + + + | Pratibha Hester | ECON | Unknown | + | + + + + + | Demian Powell | ECON | Unknown | + | + + + + + Care Team Providers + +------+ + | Care Decorator Inspector Name | Role | Phone | [...] + + | 03/17/ | Telephone | [facility] | Sascha Mir, | Other | | 2014 | | [address]UR[address] | DO [address] | | | | | [address] [facility] | [address] [place], [place] | | | | | [place] | [id number] | | | | | [address] | | | | | | [phone] | | | +--------+ + + + [...] 2019 | Office | | MD Michael [address] [place] [address] | | | | Visit | | Ed [place]opes | | | | | | [place] [address] | | | | | | [phone] | | | | | | | | +--------+ + + + + documented as of this encounter Visit Diagnoses Not on filedocumented in this encounter"
--- OUTSIDE RECORDS SUMMARY | ~2019-12-09 | XMS | Encounter Summary ---
Demographics + + + | Address | [address] | | | [place] [address] | + + + | Home Phone [...] [place] | | | | | [address] | | + + + + + | Pratibha Hester | ECON | Unknown | + | + + + + + | Demian Powell | ECON | Unknown | + | + + + + + Care Team Providers + +------+ + | Care Veterans Services Specialist Name | Role | Phone | [...] [address] | | | | | | [place], [place] | | | | | | [address] | | | | | | [phone] | | | +--------+ + + + [...] 2019 | Office | | MD Michael [address] [place] [address] | | | | Visit | | Ed [place]opes | | | | | | [place] [address] | | | | | | [phone] | | | | | | | | +--------+ + + + + documented as of this encounter Visit Diagnoses Not on filedocumented in this encounter
--- OUTSIDE RECORDS SUMMARY | ~2019-12-09 | XMS | Encounter Summary ---
Demographics + + + | Address | [address] | | | [place] [address] | + + + | Home Phone | | + + + | Preferred Language | Unknown | + + + | Marital Status | Single | + + + | Scientology Affiliation | 1041 | + + + | Race | Unknown | + + + | Ethnic Group | Unknown | + + + Author + + + | Author | [facility] | | | and [place] | + + + | Organization | [facility] | | [...] [place] | | | | | [address] | | + + + + + | Pratibha Hester | ECON | Unknown | + | + + + + + | Demian Powell | ECON | Unknown | + | + + + + + Care Team Providers + +------+ + | Care Senior Fire Protection Engineer Name | Role | Phone | [...] + + | 05/06/ | Telephone | [facility] | Sascha Mir, | Other (MRI ) | | 2014 | | NEUR[address]URGERY [address] | DO [address] | | | | | [address] [facility] | [address] [place], [place] | | | | | [place] | [id number] | | | | | [address] | | | | | | [phone] | | | +--------+ + + + [...] 2019 | Office | | MD Michael [address] [place] [address] | | | | Visit | | Ed [place]opes | | | | | | [place] [address] | | | | | | [phone] | | | | | | | | +--------+ + + + + documented as of this encounter Visit Diagnoses Not on filedocumented in this encounter"
--- OUTSIDE RECORDS SUMMARY | ~2019-12-09 | XMS | Encounter Summary ---
Demographics + + + | Address | [address] | | | [place] [address] | + + + | Home Phone | | + + + | Preferred Language | Unknown | + + + | Marital Status | Single | + + + | Jehovah'S Witness Affiliation | 1041 | + + + [...] [place] | | | | | [address] | | + + + + + | Pratibha Hester | ECON | Unknown | + | + + + + + | Demian Powell | ECON | Unknown | + | + + + + + Care Team Providers + +------+ + | Care Tape Editor Name | Role | Phone | + +------+ + | Quentin Manriquez PA-C | MAR[facility] | | + +------+ + Encounter Details +--------+ + + + + | Date | Type | Department | Care Team | Description | +--------+ + + + + | 06/04/ | Hospital | [facility] | Sascha Mir, | Spondylolisthesis, | | 2014 | Encounter | MED CTR XRAY [address] | DO [address] | lumbar region; S/P | | | | [place] | [address] | lumbar fusion; | | | | [place] [address] | [id number] | Lumbar radicular | | | | [phone] | | pain | +--------+ + + [...] | Office | | MD Michael [address] | | | | Visit | | Ed [place] | | | | | | [place] [address] | | | | | | [phone] | | | | | | | [...] + | [facility] | [address] | [place] | [phone] | | [facility] | | [address] | | | - IMAGING | | [...]
--- OUTSIDE RECORDS SUMMARY | ~2019-12-09 | XMS | Encounter Summary ---
Demographics + + + | Address | [address] | | | [place] [address] | + + + | Home Phone [...] Author + + + | Author | [facility] | + + + | Organization | [facility] | + + + | Address | Unknown | + + + | Phone | Unavailable | + + + Support + + +---------+ + | Name | Relationship | Address | Phone | + + +---------+ + | Alisia Nina | ECON | Unknown | | + + +---------+ + Care Team Providers + +------+ + | Care Biztalk Consultant Name | Role | Phone | [...] Medical Records | | 2019 | | [place] [facility] 0[address] | | Review | | | | Jennifer Schreiber | | | | | | Mailcode: [place] | | | | | | [facility] and | | | | | | [facility], [facility] [address] | | | | | | [place], [place] | | | | | | [address] | | | | | | [phone] | | | +--------+ + + + [...] | | | | | [place], | | | | | | [place] [address] | | | | | | [phone] | | | | | | | | +--------+ + + + + | 01/10/ | Appointment | Gastroenterology | Guillermo Quach MD | | | 2019 | | | [address] | | | | | | [place], | | | | | | [place] [address] | | | | | | [phone] | | | | | | | | +--------+ + + + + documented as of this encounter Visit Diagnoses Not on filedocumented in this encounter"
--- OUTSIDE RECORDS SUMMARY | ~2019-12-09 | XMS | Encounter Summary ---
Demographics + + + | Address | [address] | | | [place] [address] | + + + | Home Phone [...] [place] | | | | | [address] | | + + + + + | Pratibha Hester | ECON | Unknown | + | + + + + + | Demian Powell | ECON | Unknown | + | + + + + + Care Team Providers + +------+ + | Care Preschool Teacher Aide Name | Role | Phone | + [...] | Sascha Armendariz DO | [address] | | | | | Spondylolist | [address] | [place], | | | | | hesis of | [address] | [place] | | | | | lumbar | [place] | [address] | | | | | region S/P | [address] | Phone: | | | | | lumbar | Phone: | [phone] | | | | | fusion | [phone] | Fax: | | | | | Procedures | Fax: | [phone] | | | | | MRI Lumbar | [phone] | | | | | | Spine [...] | Sascha Armendariz DO | [address] | | | | | radicular | [address] | [place], | | | | | pain | [address] | [place] | | | | | Procedures | [place] | [address] | | | | | MRI Cervical | [address] | Phone: | | | | | Spine wo | Phone: | [phone] | | | | | Contrast | [phone] | Fax: | | | | | | Fax: | [phone] | | | | | | [phone] | | +--------+--------+ + + + + Reason for Visit + + + | Reason | Comments | + + + | Follow-up | 3-month post-op | + + + Encounter Details +--------+---------+ + + + | Date | Type | Department | Care Team | Description | +--------+---------+ + + + | 03/17/ | Office | [facility] | Sascha Mir, | Spondylolisthesis of | | 2015 | Visit | NEUR[address]URGERY [address] | DO [address] | lumbar region | | | | [address] | [address] [place], [place] | (Primary Dx); S/P | | | | [place], [place] | [id number] | lumbar fusion; | | | | [address] | | Cervical radicular | | | | [phone] | | pain | +--------+---------+ + + [...] m the original. Sascha Mir DO [address] [facility], [address] [place] [address] FAX: NEUROSURGERY FOLLOW-UP CHIEF COMPLAINT: Chief Complaint [...] | Office | | MD Michael [address] [place] [address] | | | | Visit | | Ed [place]opes | | | | | | [place] [address] | | | | | | [phone] | | | | | | | | +--------+ + + + + + +---------+--------+ + + [...]
--- OUTSIDE RECORDS SUMMARY | ~2019-12-09 | XMS | Encounter Summary ---
Demographics + + + | Address | [address] | | | [place] [address] | + + + | Home Phone | | + + + | Preferred Language | Unknown | + + + | Marital Status | Single | + + + | Baptist Affiliation | 1041 | + + + | Race | Unknown | + + + | Ethnic Group | Unknown | + + + Author + + + | Author | [facility] | | | and [place] | + + + | Organization | [facility] | | | [...] [place] | | | | | [address] | | + + + + + | Pratibha Hester | ECON | Unknown | + | + + + + + | Demian Powell | ECON | Unknown | + | + + + + + Care Team Providers + +------+ + | Care Web Application Tester Name | Role | Phone | + [...] | | | CASEY PALMA | [place], [place] | | | | | [place], [place] | [address] | | | | | [address] | | | | | | [phone] | | | +--------+ + + + [...] | Office | | MD Michael [address] | | | | Visit | | [address] | | | | | | [place] [address] | | | | | | [phone] | | | | | | | [...] MV A Ollie: 0.67 m/s MV Dec [place]: 3.90 m/s2 MV | | | DecT: 192.12 ms MV E Ollie: 0.75 m/s MV E/A Ratio: 1.11 MV | | | PHT: 55.71 ms MVA By PHT: 3.94 cm2 Septal e': 0.04 m/s | | | Septal E/e': 15.99 Lateral e': 0.06 m/s Lateral E/e': 11.01 | | | Wheel Presser: MEME Authenticated by: Itzel Mendoza Report | | | Date/Time: 06-01-2018 19:30:56 | | + + + + + | Procedure Note | + + | Cedric, Rad Conversion - 03/29/2019 4:52 PM PDT Patient Name: Carmelita Nina of | | : 1970 Performing Physician: Itzel | | eKlly INDICATIONS------ | | -----FAMILY HX CAD CONCLUSIONS [...] cmLVIDd: 4.40 cmLVPWd: 0.94 cmLVOT Area: 3.61 tm2UBEE Diam: 2.14 cm%FS: 30.32 | | %EF(Teich): [...] mlLAESV Index (A-L): 20.19 ml/m2LAAs A2C: 13.00 [id number] A-L | | A2C: 36.94 mlLALs A2C: 3.88 cmLAAs A4C: 15.93 [id number] A-L A4C: 49.93 mlLALs | | A4C: 4.31 cmRAAs: 10.82 [id number] A-L: 24.00 mlRAESV MOD: 22.53 mlRALs: 4.14 | | cmTAPSE: 1.61 cmAV maxP.99 mmHgAV meanP.27 mmHgAV Vmax: 1.73 m/Trang | | Vmean: 1.19 m/Trang VTI: 27.27 cmAVA Vmax: 2.35 cm2AVA (VTI): 2.65 xn2UTCD (Vmax): | | 0.00 cm2/m2AVAI (VTI): 0.00 cm2/m2LVOT maxP.08 mmHgLVOT meanP.38 | | mmHgLVSI Dopp: 32.31 ml/m2LVSV Dopp: 72.37 mlLVOT Vmax: 1.12 m/sLVOT Vmean: 0.72 | | m/sLVOT VTI: 20.04 cmMV A Ollie: 0.67 m/sMV Dec [place]: 3.90 m/s2MV DecT: 192.12 | | msMV E Ollie: 0.75 m/sMV E/A Ratio: 1.11MV PHT: 55.71 msMVA By PHT: 3.94 [id number] | | e': 0.04 m/sSeptal E/e': 15.99Lateral e': 0.06 m/sLateral E/e': 11.01 | | Wheel Presser: DBSAuthenticated by: Itzel Dee Date/Time: 06-01-2018 19:30:56 [...] A Ollie: 0.67 m/s | |MV Dec [place]: 3.90 m/s2 | |MV DecT: 192.12 ms | |MV E Ollie: 0.75 m/s | |MV E/A Ratio: 1.11 | |MV PHT: 55.71 ms | |MVA By PHT: 3.94 cm2 | |Septal e': 0.04 m/s | |Septal E/e': 15.99 | |Lateral e': 0.06 m/s | |Lateral E/e': 11.01 | | | |Wheel Presser: DBS | |Authenticated by: Itzel Mendoza | [...]
--- OUTSIDE RECORDS SUMMARY | ~2019-12-09 | XMS | Encounter Summary ---
Demographics + + + | Address | [address] | | | [place] [address] | + + + | Home Phone [...] [place] | | | | | [address] | | + + + + + | Pratibha Hester | ECON | Unknown | + | + + + + + | Demian Powell | ECON | Unknown | + | + + + + + Care Team Providers + +------+ + | Care Product Engineering Manager Name | Role | Phone | + +------+ + | Quentin Manriquez PA-C | MARCK | | + +------+ + Reason for Visit +--------+ + | Reason | Comments | +--------+ + | Other | surgery reminder | +--------+ + Encounter Details +--------+ + + + + | Date | Type | Department | Care Team | Description | +--------+ + + + + | 12/10/ | Telephone | [facility] | Sascha Mir, | Other (surgery | | 2015 | | NEUROSURGERY [address] | DO [address] | reminder ) | | | | [facility] | [address] [place], [place] | | | | | [place] | [address] | | | | | [address] | | | | | | [phone] | | | +--------+ + + + [...] 2019 | Office | | MD Michael [address] [place] [address] | | | | Visit | | Ed Lopes | | | | | | [place] [address] | | | | | | [phone] | | | | | | | | +--------+ + + + + documented as of this encounter Visit Diagnoses Not on filedocumented in this encounter"
--- OUTSIDE RECORDS SUMMARY | ~2019-12-09 | XMS | Encounter Summary ---
Demographics + + + | Address | [address] | | | [place] [address] | + + + | Home Phone [...] [place] | | | | | [address] | | + + + + + | Pratibha Hester | ECON | Unknown | + | + + + + + | Demian Powell | ECON | Unknown | + | + + + + + Care Team Providers + +------+ + | Care Slasher Sawyer Name | Role | Phone | + [...] + + | 03/17/ | Telephone | [facility] | Sascha Mir, | Other | | 2014 | | NEUROSURGERY [address] | DO [address] | | | | | [facility] | [address] [place], [place] | | | | | [place] | [id number] | | | | | [address] | | | | | | [phone] | | | +--------+ + + + [...] 2019 | Office | | MD Michael [address] [place] [address] | | | | Visit | | Ed Lopes | | | | | | [place] [address] | | | | | | [phone] | | | | | | | | +--------+ + + + + documented as of this encounter Visit Diagnoses Not on filedocumented in this encounter"
--- OUTSIDE RECORDS SUMMARY | ~2019-12-09 | XMS | Encounter Summary ---
Demographics + + + | Address | [address] | | | [place] [address] | + + + | Home Phone [...] [place] | | | | | [address] | | + + + + + | Pratibha Hester | ECON | Unknown | + | + + + + + | Demian Powell | ECON | Unknown | + | + + + + + Care Team Providers + +------+ + | Care Jointer Machine Name | Role | Phone | [...] | | [place] | [place] [address] | | | | | [address] | [phone] | | | | | [phone] | | | +--------+--------+ + + + [...] 2019 | Office | | MD Michael [address] [place] [address] | | | | Visit | | Ed Lopes | | | | | | [place] [address] | | | | | | [phone] | | | | | | | | +--------+ + + + + documented as of this encounter Visit Diagnoses Not on filedocumented in this encounter"
--- OUTSIDE RECORDS SUMMARY | ~2019-12-09 | XMS | Encounter Summary ---
Demographics + + + | Address | [address] | | | [place] [address] | + + + | Home Phone [...] [place] | | | | | [address] | | + + + + + | Pratibha Hester | ECON | Unknown | + | + + + + + | Demian Powell | ECON | Unknown | + | + + + + + Care Team Providers + +------+ + | Care Medical Technologist Chemistry Name | Role | Phone | + [...] [place] | | | | | [address] | [address] | | | | | [phone] | | | +--------+ + + + [...] | Office | | MD Michael [address] | | | | Visit | | Ed [place] | | | | | | [place] [address] | | | | | | [phone] | | | | | | | | +--------+ + + + + documented as of this encounter Visit Diagnoses Not on filedocumented in this encounter"
--- OUTSIDE RECORDS SUMMARY | ~2019-12-09 | XMS | Encounter Summary ---
Demographics + + + | Address | [address] | | | [place] [address] | + + + | Home Phone [...] Providers + +------+ + | Care School Operations Manager Name | Role | Phone | [...] | 2019 | on | Center at [facility] [address] | | | | | | [address] | | | | | | Mailcode: Center | | | | | | for Health and | | | | | | Healing, Building [address] | | | | | | [facility] [place] | | | | | | [address] | | | | | | [phone] | | | +--------+ + + + [...] | | | | | | [place] [address] | | | | | | [phone] | | | | | | | | +--------+ + + + + | 01/10/ | Appointment | Gastroenterology | Guillermo Quach MD | | | 2019 | | | [address] | | | | | | [place] | | | | | | [place] [address] | | | | | | [phone] | | | | | | | | +--------+ + + + + documented as of this encounter Visit Diagnoses Not on filedocumented in this encounter"
--- OUTSIDE RECORDS SUMMARY | ~2019-12-09 | XMS | Clinical Summary ---
Demographics + + + | Address | [address] | | | [place] [address] | + + + | Home Phone [...] [place] | | | | | [address] | | + + + + + | Pratibha Hester | ECON | Unknown | + | + + + + + | Demian Powell | ECON | Unknown | + | + + + + + Care Team Providers + +------+ + | Care Ergonomics Engineer Name | Role | Phone | [...] | + + + + | INFLUENZA, [id number], | 08/05/2009 | | | UNSPECIFIED | [...] | Office | | MD Michael [address] | | | | Visit | | Ed [place] | | | | | | [place] [address] | | | | | | [phone] | | | | | | | [...] | OSTEOTECH - | | 10/03/ | [id number] | | [id number]: Qty: 1 | | | OSTT | | 2020 | | | on 12/12/2014 by [place], | | | | | | /[id number] | | Sascha Armendariz DO at [facility] | | | | | | 2-039 | | [facility] | | | | | | /38-30 | | | | | | | | 12 | + +------+--------+ +--------+--------+--------+ | Graft Infuse Bone Kit Xxs - | | | [facility] | | / | [id number] | | [id number]: Qty: 1 on | | | DANEK - DIV | | 2016 | 0 / | | 12/12/2014 by Sascha Mir | | | MEDTRONIC | | | /[id number] | | DO Kala at [facility] | | | - SFDK | | | [id number] | | [facility] | | | | | | | + +------+--------+ +--------+--------+--------+ | SpacerImplanted: Qty: 1 on | | Registry Rn | [facility]TRONIC - | | 10/04/ | [id number] | | 12/12/2014 by Sascha Mir | | ior: | MEDT | | 2022 | 9 / | | DO Kala at [facility] | | Spine | | | | /[id number] | | [facility] | | Lumbar | | | | 520 | + +------+--------+ +--------+--------+--------+ | Screw Amanda Solera 6.5x50mm - | | Registry Rn | [facility] | | | [id number] | | [id number]: Qty: 1 on | | ior: | DANEK - DIV | | | [id number] | | 12/12/2014 by Sascha Mir | | Spine | [employer] | | | / / | | DO Kala at [facility] | | Lumbar | - SFDK | | | | | [facility] | | | | | | | + +------+--------+ +--------+--------+--------+ | Screw Amanda Solera 6.5x45mm - | | Registry Rn | [facility] | | | [id number] | | [id number]: Qty: 1 on | | ior: | DANEK - DIV | | | [id number] | | 12/12/2014 by Sascha Mir | | Spine | [employer] | | | / / | | DO Kala at [facility] | | Lumbar | - SFDK | | | | | [facility] | | | | | | | + +------+--------+ +--------+--------+--------+ | Screw Mas G5 Slra 7.5x40 Cn - | | Registry Rn | [facility] | | | [id number] | | [id number]: Qty: 1 | | ior: | DANEK - DIV | | | [id number] | | on 12/12/2014 by Clarke, | | Spine | [employer] | | | / / | | Sascha Armendariz DO at [facility] | | Lumbar | - SFDK | | | | | [facility] | | | | | | | + +------+--------+ +--------+--------+--------+ | Screw Amanda 8.5x40mm - | | Registry Rn | [facility] - | | | [id number] | | [id number]: Qty: 1 on | | ior: | MEDT | | | [address] | | 12/12/2014 by Sascha Mir | | Spine | | | | / / | | DO Kala at [facility] | | Lumbar | | | | | | [facility] | | | | | | | + +------+--------+ +--------+--------+--------+ | Set Scrw Ns G5 Brk Off Ti | | Registry Rn | [facility] | | | 990080 | | 4.75 - [id number]: | | ior: | DANEK - DIV | | | 0 / / | | Qty: 4 on 12/12/2014 by | | Spine | [facility] | | | | | Sascha Mir DO at [facility] | | Lumbar | - SFDK | | | | | [facility] | | | | | | | | [facility]ENTER | | | | | | | + +------+--------+ +--------+--------+--------+ | Imp Spn Francis Ti Sext Ti 5.5x45 | | Registry Rn | [facility] | | | [id number] | | - [id number]: Qty: 2 | | ior: | DANEK - DIV | | | 5045 / | | on 12/12/2014 by Clarke, | | Spine | [facility] | | | / | | Sascha Armendariz DO at [facility] | | Lumbar | - SFDK | | | | | [facility] | | | | | | [...] | Cannulated Screw Cd Horizon | | Registry Rn | [facility] - | | | [id number] | | SoleraExplanted: Qty: 1 on | | ior: | MEDT | | | 10977 | | 12/12/[address] [facility] | | Spine | | | | / / | | [facility] | | Lumbar | | | [...] at | | | | | | [facility])Confirmed by Shi | | | | | | Rudy ANAND ([id number]) on | | | | | | [...] | [employer] | MODA | [id number] | | [phone] | | Medica | | MEDICAID HMO | HEALTH | | 015-Pr | 1 | | id | | | MDCD | | esent | | | | | | [place] | | | | | | + +--------+ +--------+ +---------+--------+ | [facility] | IHS | [id number] | 05/17/ | | | Indemn | | SERVICE | YELLOW | | 2011-P | | | ity | | | HAWK | | resent | | | | + +--------+ +--------+ +---------+--------+ | [employer] | MODA | [id number] | | [phone] | | Medica | | MEDICAID HMO | HEALTH | | 019-Pr | 1 | | id | | | MDCD | | esent | | | | | | [place] | | | | | | + +--------+ +--------+ +---------+--------+ | [facility] | IHS | [id number] | 03/08/20 | | | Indemn | [...] | | al/Fam | | 1970 | [phone] | [place], [place] | | | neil | | | 1 (Home) | [address] | + +--------+ +--------+ + + | Demian Nina | Person | Self | [birth year] | [address] | | | al/Fam | | 1970 | [phone] | [place], [place] | | | neil | | | 1 (Home) | [address] | + +--------+ +--------+ + + Advance Directives + + + + + | Type | Date Recorded | Patient | Explanation | | | | Store Team Member | | + + + + + | Power of | | | | | Analytical Scientist | | | | + + [...]
--- OUTSIDE RECORDS SUMMARY | ~2019-12-09 | XMS | Encounter Summary ---
Demographics + + + | Address | [address] | | | [place] [address] | + + + | Home Phone [...] Team Providers + +------+ + | Care Bed Worker Name | Role | Phone | [...] | | | | | 4th floor [place], | | | | | | [place] [address] | | | | | | [phone] | | | +--------+ + + + [...] | | | | | | [place] [address] | | | | | | [phone] | | | | | | | | +--------+ + + + + | 01/10/ | Appointment | Gastroenterology | Guillermo Quach MD | | | 2019 | | | [address] | | | | | | [place] | | | | | | [place] [address] | | | | | | [phone] | | | | | | | | +--------+ + + + + documented as of this encounter Visit Diagnoses Not on filedocumented in this encounter"
--- OUTSIDE RECORDS SUMMARY | ~2019-12-09 | XMS | Encounter Summary ---
Demographics + + + | Address | [address] | | | [place] [address] | + + + | Home Phone [...] | Author | [facility] | | | and [place] | + + + | Organization | [facility] | | | [...] [place] | | | | | [address] | | + + + + + | Pratibha Hester | ECON | Unknown | + | + + + + + | Demian Powell | ECON | Unknown | + | + + + + + Care Team Providers + +------+ + | Care Geriatric Nurse Name | Role | Phone | + +------+ + | Jannette Boyle PA-C | PCP | | + +------+ + Encounter Details +--------+ + + + + | Date | Type | Department | Care Team | Description | +--------+ + + + + | 09/27/ | Orders Only | [facility] | Sascha Mir, | Back pain, | | 2017 | | NEUROSURGERY [address] | DO [address] | unspecified back | | | | [address] | [address] [place], [place] | location, | | | | [place], [place] | [address] | unspecified back | | | | [address] | | pain laterality, | | | | [phone] | | unspecified | | | | [...] | Office | | MD Michael [address] | | | | Visit | | Ed Lopes | | | | | | [place] [address] | | | | | | [phone] | | | | | | | [...]
--- OUTSIDE RECORDS SUMMARY | ~2019-12-09 | XMS | Encounter Summary ---
Demographics + + + | Address | [address] | | | [place] [address] | + + + | Home Phone [...] [facility] | | | and [place] | + + + | Organization | [facility] | | [...] [place] | | | | | [address] | | + + + + + | Pratibha Hester | ECON | Unknown | + | + + + + + | Demian Powell | ECON | Unknown | + | + + + + + Care Team Providers + +------+ + | Care Compliance Associate Name | Role | Phone | [...] [address] | [address] [place], [place] | (Primary Dx); HIP | | | | [place], [place] | [address] | PAIN, LEFT, CHRONIC; | | | | [address] | | Spondylolisthesis | | | | [phone] | | of lumbar region | | [...] | Office | | MD Michael [address] | | | | Visit | | Ed Lopes | | | | | | [place] [address] | | | | | | [phone] | | | | | | | | +--------+ + + + + documented as of this encounter Results ECG 12 [...] exam . COMPARISON: None available. FINDINGS: | [facility] | | Heart size and mediastinal contours are within normal limits. The | [facility] | | lungs are clear, without [...] + | [facility] | [address] | [place] | [phone] | | [facility] | | [address] | | | - IMAGING | | [...] | | Time | | seconds | [facility] | | | | | | [...] | [facility] | [address] | [place] | [phone] | | [facility] | | [address] | | | - LABORATORY | | | | + + + + + PTT (12/05/2014 11:56 AM PDT) + +-------+ + + + | Component | Value | Ref Range | Performed | Pathologist | | | | | At | Signature | + +-------+ + + + | aPTT | 29 | 22 - 36 seconds | [facility] | | | | | [...] + | [facility] | [address] | [place] | [phone] | | [facility] | | [address] | | | - LABORATORY | | [...] 11 | 7 - 18 mg/dL | [facility] | | | | | | [facility] | | | | | | MEDICAL | | | | | | CENTER - | | | | | | LABORATORY | | + + + + + + | Creatinine | 0.71 | 0.60 - 1.30 | [facility] | | | | | mg/dL | [facility] | | | | | | MEDICAL | | | | | | CENTER - | | | | | | LABORATORY | | + + + + + + | eGFR if not | >60Comment: GLOMERULAR | >=60 | [facility] | | | | FILTRATION | mL/min/1.73m2 | [facility] | | | CHILEAN | RATE,ESTIMATED | | MEDICAL | | | | mL/min/1.52d9Qjxb than | | CENTER - | | [...] | | | | | mg/dL | [facility] | | | | | | MEDICAL | | | | | | CENTER - | | | | | | LABORATORY | | + + + + + + | BUN/Creatin | 15.5 | | [facility] | | | ine Ratio | | | [facility] | | [...] [address] | [place] | [phone] | | [facility] | | [address] | | | - LABORATORY | | | | + + + + + CBC with Differential (12/05/2014 11:56 AM PDT) + + + + + + | Component | Value | Ref Range | Performed | Pathologist | | | | | At | Signature | + + + + + + | WBC | 10.3 | 4.0 - 11.0 K/uL | [facility] | | | | | [facility] | | | | | | MEDICAL | | | | | | CENTER - | | | | | | LABORATORY | | + + + + + + | RBC | 4.62 | 3.70 - 5.20 | [facility] | | | | | M/uL | [facility] | | | | [...] | | | | | | [facility] | | | | | | MEDICAL [...] [address] | [place] | [phone] | | [facility] | | [address] | | | - LABORATORY | | [...]
--- OUTSIDE RECORDS SUMMARY | ~2019-12-09 | XMS | Encounter Summary ---
Demographics + + + | Address | [address] | | | [place] [address] | + + + | Home Phone [...] [place] | | | | | [address] | | + + + + + | Pratibha Hester | ECON | Unknown | + | + + + + + | Demian Powell | ECON | Unknown | + | + + + + + Care Team Providers + +------+ + | Care Motorman/Woman Name | Role | Phone | + [...] + + | 02/24/ | Telephone | [facility] | Vega Smith MD | Appointment | | 2017 | | GASTROENTEROLOGY | [address] | | | | | [address] [facility] | [address] [place] | | | | | [address] [place] | [address] | | | | | [address] | | | | | | [phone] | | | +--------+ + + + [...] 2019 | Office | | MD Michael [address] [place] [address] | | | | Visit | | Ed [place]opes | | | | | | [place] [address] | | | | | | [phone] | | | | | | | | +--------+ + + + + documented as of this encounter Visit Diagnoses Not on filedocumented in this encounter"
--- OUTSIDE RECORDS SUMMARY | ~2019-12-09 | XMS | Encounter Summary ---
Demographics + + + | Address | [address] | | | [place] [address] | + + + | Home Phone [...] Providers + +------+ + | Care Automatic Mounter Name | Role | Phone | + [...] at | | | | | | [facility] | | | | | | [address] | | | | | | Mail Code: OC8PM | | | | | | [facility] | | | | | | and Healing, | | | | | | [address] | | | | | | [place], [place] | | | | | | [address] | | | | | | [phone] | | | +--------+ + + + [...] | | | | | | [place] [address] | | | | | | [phone] | | | | | | | | +--------+ + + + + | 01/10/ | Appointment | Gastroenterology | Guillermo Quach MD | | | 2019 | | | [address] | | | | | | [place] | | | | | | [place] [address] | | | | | | [phone] | | | | | | | | +--------+ + + + + documented as of this encounter Visit Diagnoses Not on filedocumented in this encounter"
--- OUTSIDE RECORDS SUMMARY | ~2019-12-09 | XMS | Encounter Summary ---
Demographics + + + | Address | [address] | | | [place] [address] | + + + | Home Phone [...] Author + + + | Author | [facility] | + + + | Organization | [facility] | + + + | Address | Unknown | + + + | Phone | Unavailable | + + + Support + + +---------+ + | Name | Relationship | Address | Phone | + + +---------+ + | Alisia Nina | ECON | Unknown | | + + +---------+ + Care Team Providers + +------+ + | Care Manager Of Organizational Development Name | Role | Phone | + [...] on | Otology Services at | [facility] | | | | | [facility] [address] [place], [place] | | | | [address] | [address] | | | | | Physician's | | | | | | Pavilion, 2nd floor | | | | | | [place], [place] | | | | | | [address] | | | | | | [phone] | | | +--------+ + + + [...] | | | | | | [place] [address] | | | | | | [phone] | | | | | | | | +--------+ + + + + | 01/10/ | Appointment | Gastroenterology | Guillermo Quach MD | | | 2019 | | | [address] | | | | | | [place] | | | | | | [place] [address] | | | | | | [phone] | | | | | | | | +--------+ + + + + documented as of this encounter Visit Diagnoses Not on filedocumented in this encounter"
--- OUTSIDE RECORDS SUMMARY | ~2019-12-09 | XMS | Encounter Summary ---
Demographics + + + | Address | [address] | | | [place] [address] | + + + | Home Phone | | + + + | Preferred Language | Unknown | + + + | Marital Status | Single | + + + | Holiness Affiliation | CAT | + + + [...] Team Providers + +------+ + | Care Acid Loader Name | Role | Phone | + [...] 2013 | Visit | Audiology Services | [facility] [address] | | | | | at [facility] [address] | | | | | [address] | [place] [address] | | | | | Physician's | [phone] | | | | | Willy, [facility] floor | | | | | | [place], [place] | | | | | | [address] | | | | | | [phone] | | | +--------+ + + + [...] Demian's hearing sensitivity was evaluated using conventional audiometry with insert earphon es. Demian conditioned easily to the task and her responses were consistent and considered re liable. Pure-tone air and bone conduction results revealed: Right Ear:A mild to moderate mixed hearing loss. A speech guest relations receptionist threshold was obtain ed at 40 dB HL and is in good agreement with responses to pure-tone stimuli. Word recogniti on ability was 80% when words were presented at a comfortable level of 65 dB HL. Left Ear: Normal hearing sensitivity from 250-4000 Hz, sloping to a mild hearing loss at 6000 Hz, rising to normal hearing at 8000 Hz. A speech guest relations receptionist threshold was obtained at 20 dB HL and is in good agreement with responses to pure-tone stimuli. Word recognition judy lity was 84% when words were presented at a comfortable level of 50 dB HL. [facility]. Please see otology note [...] | | | | | | [place] [address] | | | | | | [phone] | | | | | | | | +--------+ + + + + | 01/10/ | Appointment | Gastroenterology | Guillermo Quach MD | | | 2019 | | | [address] | | | | | | [place] | | | | | | [place] [address] | | | | | | [phone] | | | | | | | | +--------+ + + + + documented as of this encounter Procedures + +--------+ + + + | Procedure Name | Priori | Date/Time | Associated Diagnosis | Comments | | | ty | | | | + +--------+ + + + | [place] TYMPANOMETRY | Routin | 04/16/2014 | Mixed hearing | | | | e | 3:45 PM | loss, unilateral | | | | | PDT | | | + +--------+ + + + | [place] COMPREHENSIVE | Routin | 04/16/2014 | Mixed [...]
--- OUTSIDE RECORDS SUMMARY | ~2019-12-09 | XMS | Encounter Summary ---
Demographics + + + | Address | [address] | | | [place] [address] | + + + | Home Phone [...] [place] | | | | | [address] | | + + + + + | Pratibha Hester | ECON | Unknown | + | + + + + + | Demian Powell | ECON | Unknown | + | + + + + + Care Team Providers + +------+ + | Care Solar Sales Manager Name | Role | Phone | [...] [address] | [address] [place], [place] | intervertebral disc | | | | [place], [place] | [address] | without myelopathy | | | | [address] | | (Primary Dx) | | | | [phone] | | | +--------+ + + + [...] | Office | | MD Michael [address] | | | | Visit | | [facility] | | | | | | [place] [address] | | | | | | [phone] | | | | | | | | +--------+ + + + + documented as of this encounter Visit Diagnoses + + | Diagnosis | + + | 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
--- OUTSIDE RECORDS SUMMARY | ~2019-12-09 | XMS | Encounter Summary ---
Demographics + + + | Address | [address] | | | [place] [address] | + + + | Home Phone [...] [place] | | | | | [address] | | + + + + + | Pratibha Hester | ECON | Unknown | + | + + + + + | Demian Powell | ECON | Unknown | + | + + + + + Care Team Providers + +------+ + | Care Drawstring Knotter Name | Role | Phone | + [...] + + | 12/23/ | Telephone | [facility] | Sascha Mir, | Other (Medication | | 2015 | | NEUROSURGERY [address] | DO [address] | request) | | | | [address] [facility] | [address] [place], [place] | | | | | Rajiv Jimenez [place] | [id number] | | | | | [address] | | | | | | [phone] | | | +--------+ + + + [...] | Office | | MD Michael [address] | | | | Visit | | Ed Lopes | | | | | | [place] [address] | | | | | | [phone] | | | | | | | | +--------+ + + + + documented as of this encounter Visit Diagnoses Not on filedocumented in this encounter"
--- OUTSIDE RECORDS SUMMARY | ~2019-12-09 | XMS | Encounter Summary ---
Demographics + + + | Address | [address] | | | [place] [address] | + + + | Home Phone [...] Team Providers + +------+ + | Care Paper Cone Machine Operator Name | Role | Phone [...] | | at [facility] [address] | | | | | [address] | [place] [address] | | | | | Physician's | [phone] | | | | | Willy, [facility] floor | | | | | | [place], [place] | | | | | | [address] | | | | | | [phone] | | | +--------+ + + + [...] to moderate mixed hearing loss. A speech office assistant receptionist threshold was obtain ed at 40 dB HL and is in good agreement with responses to pure-tone stimuli. Word recogniti on ability was 80% when words were presented at a comfortable level of 65 dB HL. Left Ear: Normal hearing sensitivity from 250-4000 Hz, sloping to a mild hearing loss at 6000 Hz, rising to normal hearing at 8000 Hz. A speech office assistant receptionist threshold was obtained at 20 dB HL and is in good agreement with responses to pure-tone stimuli. Word recognition judy lity was 84% when words were presented at a comfortable level of 50 dB HL. [facility]. Please see otology note [...] | | | | | | [place] [address] | | | | | | [phone] | | | | | | | | +--------+ + + + + | 01/10/ | Appointment | Gastroenterology | Guillermo Quach MD | | | 2019 | | | [address] | | | | | | [place] | | | | | | [place] [address] | | | | | | [phone] | | | | | | | | +--------+ + + + + documented as of this encounter Procedures + +--------+ + + + | Procedure Name | Priori | Date/Time | Associated Diagnosis | Comments | | | ty | | | | + +--------+ + + + | [place] TYMPANOMETRY | Routin | 04/16/2014 | Mixed hearing | | | | e | 3:45 PM | loss, unilateral | | | | | PDT | | | + +--------+ + + + | [place] COMPREHENSIVE | Routin | 04/16/2014 | Mixed [...]
--- OUTSIDE RECORDS SUMMARY | ~2019-12-09 | XMS | Encounter Summary ---
Demographics + + + | Address | [address] | | | [place] [address] | + + + | Home Phone | | + + + | Preferred Language | Unknown | + + + | Marital Status | Single | + + + | Hinduism Affiliation | CAT | + + + [...] Providers + +------+ + | Care Director Diabetes Name | Role | Phone | + +------+ + | Gracie Lewis PA-C | PCP | | + +------+ + Encounter Details +--------+ + + + + | Date | Type | Department | Care Team | Description | +--------+ + + + + | 10/19/ | Outside | [facility] | Angelo Abrams | | | 2019 | Referral | [facility] [address] | MD [address] | | | | Order | Melvin Schreiber Mailcode: | georgette Cano | | | | | [address] for | [place] [address] | | | | | Health and Healing, | [phone] | | | | | [place] [address] | | | | | | [place], [place] | | | | | | [address] | | | | | | [phone] | | | +--------+ + + + [...] | | | | | | [place] [address] | | | | | | [phone] | | | | | | | | +--------+ + + + + | 01/10/ | Appointment | Gastroenterology | Guillermo Quach MD | | | 2019 | | | [address] | | | | | | [place] | | | | | | [place] [address] | | | | | | [phone] | | | | | | | [...]
--- OUTSIDE RECORDS SUMMARY | ~2019-12-09 | XMS | Encounter Summary ---
Demographics + + + | Address | [address] | | | [place] [address] | + + + | Home Phone [...] Team Providers + +------+ + | Care Gum Rolling Machine Tender Name | Role | Phone [...] on | Otology Services at | [facility] | | | | | [facility] [address] | | | | | [address] | [address] | | | | | Physician's | | | | | | Pavilion, 2nd floor | | | | | | | | | | | | [address] | | | | | | [phone] | | | +--------+ + + + [...] | | | | | | [place] [address] | | | | | | [phone] | | | | | | | | +--------+ + + + + | 01/10/ | Appointment | Gastroenterology | Guillermo Quach MD | | | 2019 | | | [address] | | | | | | [place] | | | | | | [place] [address] | | | | | | [phone] | | | | | | | | +--------+ + + + + documented as of this encounter Visit Diagnoses Not on filedocumented in this encounter"
--- OUTSIDE RECORDS SUMMARY | ~2019-12-09 | XMS | Encounter Summary ---
Demographics + + + | Address | [address] | | | [place] [address] | + + + | Home Phone [...] [place] | | | | | [address] | | + + + + + | Pratibha Hester | ECON | Unknown | + | + + + + + | Demian Powell | ECON | Unknown | + | + + + + + Care Team Providers + +------+ + | Care Oracle Specialist Name | Role | Phone | + +------+ + | Quentin Manriquez PA-C | MAR[place] | | + +------+ + Encounter Details +--------+---------+ + + + | Date | Type | Department | Care Team | Description | +--------+---------+ + + + | 01/15/ | Office | [facility] | Amol Triplett, | Spondylolisthesis of | | 2014 | Visit | [address]UR[address]URGERY [address] | PA-C [address] | lumbar region L5-S1 | | | | [address] | [address] [place] | (Primary Dx); S/P | | | | Rajiv Vance MD | [place] [address] | lumbar fusion | | | | [address] | [phone] | | | | | [phone] | | | +--------+---------+ + + + [...] you out of the brace slowly over e next several weeks. 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 documented in this encounter Progress Notes Amol Triplett PA - 01/15/2015 10:33 AM PDTFormatting of this note might be different f rom the original. ANNETTE Gutierrez [address] [facility], [address] [place], [place] [address] FAX: NEUROSURGERY SURGICAL FOLLOW-UP CHIEF COMPLAINT: No [...] 2019 | Office | | MD Michael [address] [place] [address] | | | | Visit | | Ed Lopes | | | | | | [place] [address] | | | | | | [phone] | | | | | | | [...] + + | Performing | Address | City/State[facility] | Phone Number | | Organization | | | | + + + + + | [facility] | [address] | Rajiv V[place] | [phone] | | [facility] | | [address] | | | - IMAGING | | | | + + + + + documented in this encounter Visit Diagnoses + + | Diagnosis | + + | Spondylolisthesis of lumbar region L5-S1 - Primary Acquired spondylolisthesis | + + | S/P lumbar fusion Arthrodesis status | + + documented in this encounter
--- OUTSIDE RECORDS SUMMARY | ~2019-12-09 | XMS | Encounter Summary ---
Demographics + + + | Address | [address] | | | [place] [address] | + + + | Home Phone | | + + + | Preferred Language | Unknown | + + + | Marital Status | Single | + + + | Jainism Affiliation | 1041 | + + + | Race | Unknown | + + + | Ethnic Group | Unknown | + + + Author + + + | Author | [facility] | | | and [place] | + + + | Organization | [facility] | | [...] [place] | | | | | [address] | | + + + + + | Pratibha Hester | ECON | Unknown | + | + + + + + | Demian Powell | ECON | Unknown | + | + + + + + Care Team Providers + +------+ + | Care Inspector Hairspring Name | Role | Phone | + +------+ + | Jannette Boyle PA-C | PCP | | + +------+ + Encounter Details +--------+ + + + + | Date | Type | Department | Care Team | Description | +--------+ + + + + | 02/28/ | Orders Only | [facility] | Provider, | | | 2019 | | SYSTEM GENERIC OP | MD [address] | | | | | CONVERSION [address] | [address] | | | | | [address] [place], [place] | [place] [address] | | | | | [address] | | | | | | [phone] | | | +--------+ + + + [...] 2019 | Office | | MD Michael [address] [place] [address] | | | | Visit | | Ed Lopes | | | | | | [place] [address] | | | | | | [phone] | | | | | | | | +--------+ + + + + documented as of this encounter Visit Diagnoses Not on filedocumented in this encounter"
--- OUTSIDE RECORDS SUMMARY | ~2019-12-09 | XMS | Encounter Summary ---
Demographics + + + | Address | [address] | | | [place] [address] | + + + | Home Phone [...] Author | [facility] | + + + | Organization | [facility] | + + + | Address | Unknown | + + + | Phone | Unavailable | + + + Support + + +---------+ + | Name | Relationship | Address | Phone | + + +---------+ + | Alisia Nina | ECON | Unknown | | + + +---------+ + Care Team Providers + +------+ + | Care Layaway Clerk Name | Role | Phone | + +------+ + | Garcie Lewis PA-C | PCP | | + +------+ + Encounter Details +--------+ + + + + | Date | Type | Department | Care Team | Description | +--------+ + + + + | 04/26/ | Documentati | [facility] | Clinic, Surgery | | | 2019 | on | Center at [facility] [address] | | | | | | Jennifer Schreiber | | | | | | Mailcode: Center | | | | | | for Health and | | | | | | Healing, Building [address] | | | | | | [facility] [place] | | | | | | [address] | | | | | | [phone] | | | +--------+ + + + [...] | | | | | | [place] [address] | | | | | | [phone] | | | | | | | | +--------+ + + + + | 01/10/ | Appointment | Gastroenterology | Guillermo Quach MD | | | 2019 | | | [address] | | | | | | [place] | | | | | | [place] [address] | | | | | | [phone] | | | | | | | | +--------+ + + + + documented as of this encounter Visit Diagnoses Not on filedocumented in this encounter"
--- OUTSIDE RECORDS SUMMARY | ~2019-12-09 | XMS | Encounter Summary ---
Demographics + + + | Address | [address] | | | [place] [address] | + + + | Home Phone [...] [facility] | | | and [place] | + + + | Organization | [facility] | | | and [...] [place] | | | | | [address] | | + + + + + | Pratibha Hester | ECON | Unknown | + | + + + + + | Demian Powell | ECON | Unknown | + | + + + + + Care Team Providers + +------+ + | Care Sand Slinger Name | Role | Phone | + +------+ + | Quentin Manriquez PA-C | MAR[place] | | + +------+ + Encounter Details +--------+ + + + + | Date | Type | Department | Care Team | Description | +--------+ + + + + | 09/19/ | Abstract | [facility] | Sascha Mir, | | | 2014 | | NEUROSUR[address]ERY [address] | DO [address] | | | | | [address] | [address] [place], [place] | | | | | [place], [place] | [id number] | | | | | [address] | | | | | | [phone] | | | +--------+ + + + [...] 2019 | Office | | MD Michael [address] [place] [address] | | | | Visit | | Ed Lopes | | | | | | [place] [address] | | | | | | [phone] | | | | | | | | +--------+ + + + + documented as of this encounter Visit Diagnoses Not on filedocumented in this encounter"
--- OUTSIDE RECORDS SUMMARY | ~2019-12-09 | XMS | Encounter Summary ---
Demographics + + + | Address | [address] | | | [place] [address] | + + + | Home Phone | | + + + | Preferred Language | Unknown | + + + | Marital Status | Single | + + + | Hoahaoism Affiliation | 1041 | + + + [...] [place] | | | | | [address] | | + + + + + | Pratibha Hester | ECON | Unknown | + | + + + + + | Demian Powell | ECON | Unknown | + | + + + + + Care Team Providers + +------+ + | Care Locomotive Inspector Name | Role | Phone | [...] Sascha Mir, | Other (called | | 2015 | | NEUROSUR[address] | DO [address] | patient to inform | | | | [address] | [address] [place] | her that I mailed | | | | [place] | [address] | her prescriptions | | | | [address] | | certified mail | | | | [phone] | | today.) | +--------+ + + [...] 2019 | Office | | MD Michael [address] [place] [address] | | | | Visit | | Ed Lopes | | | | | | [place] [address] | | | | | | [phone] | | | | | | | | +--------+ + + + + documented as of this encounter Visit Diagnoses Not on filedocumented in this encounter"
--- OUTSIDE RECORDS SUMMARY | ~2019-12-09 | XMS | Encounter Summary ---
Demographics + + + | Address | [address] | | | [place] [address] | + + + | Home Phone [...] [place] | | | | | [address] | | + + + + + | Pratibha Hester | ECON | Unknown | + | + + + + + | Demian Powell | ECON | Unknown | + | + + + + + Care Team Providers + +------+ + | Care Community Marketing Manager Name | Role | Phone | [...] + | 05/19/ | Telephone | [facility] | Sascha Mir, | Other | | 2014 | | [address]UR[address] | DO [address] | | | | | [address] [facility] | [address] [place], [place] | | | | | [place] | [id number] | | | | | [address] | | | | | | [phone] | | | +--------+ + + + [...] | Office | | MD Michael [address] [place] [address] | | | | Visit | | Ed Lopes | | | | | | [place] [address] | | | | | | [phone] | | | | | | | | +--------+ + + + + documented as of this encounter Visit Diagnoses Not on filedocumented in this encounter"
--- OUTSIDE RECORDS SUMMARY | ~2019-12-09 | XMS | Encounter Summary ---
Demographics + + + | Address | [address] | | | [place] [address] | + + + | Home Phone [...] [place] | | | | | [address] | | + + + + + | Pratibha Hester | ECON | Unknown | + | + + + + + | Demian Powell | ECON | Unknown | + | + + + + + Care Team Providers + +------+ + | Care Field Reviewer Name | Role | Phone | + +------+ + | Quentin Manriquez PA-C | MARCK | | + +------+ + Reason for Visit + + + | Reason | Comments | + + + | Medication | | | Management | | + + + Encounter Details +--------+ + + + + | Date | Type | Department | Care Team | Description | +--------+ + + + + | 12/17/ | Telephone | [facility] | Sascha Mir, | Medication | | 2014 | | NEUR[address]UR[address]ERY [address] | DO [address] | Management | | | | [address] [facility] | [address] [place], [place] | | | | | [place] | [address] | | | | | [address] | | | | | | [phone] | | | +--------+ + + + [...] 2019 | Office | | MD Michael [address] [place] [address] | | | | Visit | | Ed Lopes | | | | | | [place] [address] | | | | | | [phone] | | | | | | | | +--------+ + + + + documented as of this encounter Visit Diagnoses Not on filedocumented in this encounter"
--- OUTSIDE RECORDS SUMMARY | ~2019-12-09 | XMS | Encounter Summary ---
Demographics + + + | Address | [address] | | | [place] [address] | + + + | Home Phone [...] [place] | | | | | [address] | | + + + + + | Pratibha Hester | ECON | Unknown | + | + + + + + | Demian Powell | ECON | Unknown | + | + + + + + Care Team Providers + +------+ + | Care Account Group Supervisor Name | Role | Phone | + +------+ + | Quentin Manriquez PA-C | MARCK | | + +------+ + Encounter Details +--------+ + + + + | Date | Type | Department | Care Team | Description | +--------+ + + + + | 12/15/ | Orders Only | [facility] | Sascha Mir, | Spondylolisthesis of | | 2016 | | NEUROSUR[address]ERY [address] | DO [address] | lumbar region; S/P | | | | [address] | [address] [place], [place] | lumbar fusion | | | | [place], [place] | [address] | | | | | [address] | | | | | | [phone] | | | +--------+ + + + [...] | Office | | MD Michael [address] | | | | Visit | | [place] | | | | | | [place] [address] | | | | | | [phone] | | | | | | | | +--------+ + + + + documented as of this encounter Visit Diagnoses + + | Diagnosis | + + | Spondylolisthesis of lumbar region Acquired spondylolisthesis | + + | S/P lumbar fusion Arthrodesis status | + + documented in this encounter"
--- OUTSIDE RECORDS SUMMARY | ~2019-12-09 | XMS | Encounter Summary ---
Demographics + + + | Address | [address] | | | [place] [address] | + + + | Home Phone | | + + + | Preferred Language | Unknown | + + + | Marital Status | Single | + + + | Temple Affiliation | CAT | + + + [...] + +------+ + | Care Director Of Parks And Recreation Name | Role | Phone | + [...] Medical Records | | 2019 | | [place] [facility] | | Review | | | | Jennifer Schreiber | | | | | | Mailcode: [place] | | | | | | [facility] Health and | | | | | | [facility] | | | | | | [place], [place] | | | | | | [address] | | | | | | [phone] | | | +--------+ + + + [...] | | | | | [place], | | | | | | [place] [address] | | | | | | [phone] | | | | | | | | +--------+ + + + + | 01/10/ | Appointment | Gastroenterology | Guillermo Quach MD | | | 2019 | | | [address] | | | | | | [place], | | | | | | [place] [address] | | | | | | [phone] | | | | | | | | +--------+ + + + + documented as of this encounter Visit Diagnoses Not on filedocumented in this encounter"
--- OUTSIDE RECORDS SUMMARY | ~2019-12-09 | XMS | Encounter Summary ---
Demographics + + + | Address | [address] | | | [place] [address] | + + + | Home Phone [...] [place] | | | | | [address] | | + + + + + | Pratibha Hester | ECON | Unknown | + | + + + + + | Demian Powell | ECON | Unknown | + | + + + + + Care Team Providers + +------+ + | Care Steel Loader Name | Role | Phone | [...] + | 03/04/ | Telephone | [facility] | Sascha Mir, | Other (medication | | 2014 | | [address]UR[address] | DO [address] | refill questions) | | | | [address] | [address] [place] | | | | | [place] | [id number] | | | | | [address] | | | | | | [phone] | | | +--------+ + + + [...] 2019 | Office | | MD Michael [address] [place] [address] | | | | Visit | | Ed Lopes | | | | | | [place] [address] | | | | | | [phone] | | | | | | | | +--------+ + + + + documented as of this encounter Visit Diagnoses Not on filedocumented in this encounter"
--- OUTSIDE RECORDS SUMMARY | ~2019-12-09 | XMS | Encounter Summary ---
Demographics + + + | Address | [address] | | | [place] [address] | + + + | Home Phone [...] [place] | | | | | [address] | | + + + + + | Pratibha Hester | ECON | Unknown | + | + + + + + | Demian Powell | ECON | Unknown | + | + + + + + Care Team Providers + +------+ + | Care Clam Shucker Name | Role | Phone | + [...] + + | 12/16/ | Telephone | [facility] | Sascha Mir, | Imaging Only | | 2015 | | NEUROSUR[address] | DO [address] | | | | | [address] | [address] [place], [place] | | | | | [place] | [address] | | | | | [address] | | | | | | [phone] | | | +--------+ + + + [...] 2019 | Office | | MD Michael [address] [place] [address] | | | | Visit | | Ed Lopes | | | | | | [place] [address] | | | | | | [phone] | | | | | | | | +--------+ + + + + documented as of this encounter Visit Diagnoses Not on filedocumented in this encounter"
--- OUTSIDE RECORDS SUMMARY | ~2019-12-09 | XMS | Encounter Summary ---
Demographics + + + | Address | [address] [facility] [address] | | | [place] [address] | + + + | Home Phone [...] [place] | | | | | [address] | | + + + + + | Pratibha Hester | ECON | Unknown | + | + + + + + | Demian Powell | ECON | Unknown | + | + + + + + Care Team Providers + +------+ + | Care Ems Educator Name | Role | Phone | + [...] | | | spondylolist | | [address] | | | | | hesis | | [place], | | | | | Acquired | | [place] [address] | | | | | spondylolist | | Phone: | | | | | hesis | | [phone] | | | | | Procedures | | Fax: | | | | | [place] | | [phone] | | | | | POST/POSTERO | [...] + + | 12/12/ | Surgery | [facility] | Sascha Mir, | L5-S1 Transforaminal | | 2015 | | MED CTR OR INTRA OP | DO [address] | Lumbar Interbody | | | | [address] | [address] | Fusion | | | | [place], [place] | [id number] | | | | | [address] | | | | | | [phone] | | | +--------+---------+ + + + [...] of admission the patient was admitted to [facility] and underwent a L5-S1 fusion . [...] mobility and she was ultimately discharged to [facility]. Medications Reconciled upon Discharge are: Discharge Medications [...] Discharge: Stable Disposition: Patient was discharged to [facility]. Follow-Up Plans: Follow-up with: Dr. Mir's office in 4 weeks Follow-up with primary care physician as needed. Diet: Resume regular diet Activity: Continue to follow guidelines and precautions as previously discussed. Electronically signed by: Amol Triplett, 12/16/2014 7:45 [facility] documented in this encounter Discharge [...] might be different f rom the original. [facility] NEUROSURGERY PROGRESS NOTE Pt. Name/Age/: [...] surgery. She is reay to go t [facility] in [place]. No further C/C OBJECTIVE: Patient Vitals for [...] ASSESSMENT:SP L5-S1 fuison Plan:B Brace. DC to [facility] today. See DC summary. Electronically signed by: Amol Triplett, 12/16/2014 7:36 [facility] Sascha Beck DO - 12/15/2014 9:20 AM PDT Subjective The patient was seen and examined by me today. She complains of of left tingling - improved from numbness, and left leg dysesthesia. Her l egs feel strong. Moderate surgical pain, but tolerable. She would like to go to SNF in [facility] before discharge home. Objective Filed Vitals: 12/15/14 [...] would like to go to SNF in [facility] before discharge home. Objective Filed Vitals: 12/14/14 [...] prophylaxis -DC plan: ready for SNF tomorrow RichardeySascha maxwell DO - 12/13/2014 8:11 AM PDT Subjective [...] Range POC Test, Urine Negative POC Specific [place] Internal QC Acceptable Lot Number [id number] Expiration Date POC GLUCOSE Result Value Ref [...] | Office | | MD Michael [address] | | | | Visit | | [address] | | | | | | [place] [address] | | | | | | [phone] | | | | | | | [...] | of hardware for posterior fusion from [id number] S1 with interbody hardware at L5-S1. | [...] | | POC | | | [address] | | [...] [address] | [place] | [phone] | | [facility] | | [address] | | | - LABORATORY | | [...] Specific | | | | | | [place], | | | | | | POC | | | | | + + + + + + | Internal QC | Acceptable | | | | + + + + + + | Lot Number | [id number] | | | | + + + [...] ST. | [address] | [place] | [phone] | | [facility] | | [address] | | | - LABORATORY | | [...] + | [address] | [address] | [place] | | | [facility] | | [address] | | | - BLOOD BANK | [...]
--- OUTSIDE RECORDS SUMMARY | ~2019-12-09 | XMS | Encounter Summary ---
Demographics + + + | Address | [address] | | | [place] [address] | + + + | Home Phone [...] + + + | Author | [facility] | | | and [place] | + + + | Organization | [facility] | | | and [...] [place] | | | | | [address] | | + + + + + | Pratibha Hester | ECON | Unknown | + | + + + + + | Demian Powell | ECON | Unknown | + | + + + + + Care Team Providers + +------+ + | Care Wellness Trainer Name | Role | Phone | + +------+ + | Jannette Boyle PA-C | PCP | | + +------+ + Encounter Details +--------+ + + + + | Date | Type | Department | Care Team | Description | +--------+ + + + + | 10/21/ | Abstract | [facility] | Albaro Bojorquez | | | 2016 | | NEUROSURGERY [address] | HUMA [address] | | | | | [address] | [address] | | | | | [place] | [place] | | | | | [address] | [address] | | | | | [phone] | | | +--------+ + + + [...] 2019 | Office | | MD Michael [address] [place] [address] | | | | Visit | | [address] | | | | | | [place] [address] | | | | | | [phone] | | | | | | | | +--------+ + + + + documented as of this encounter Visit Diagnoses Not on filedocumented in this encounter"
--- OUTSIDE RECORDS SUMMARY | ~2019-12-09 | XMS | Encounter Summary ---
Demographics + + + | Address | [address] | | | [place] [address] | + + + | Home Phone [...] Uche Nina | ECON | [address] | + | | | | [place] | | | | | [address] | | + + + + + | Pratibha Hester | ECON | Unknown | + | + + + + + | Demian Powell | ECON | Unknown | + | + + + + + Care Team Providers + +------+ + | Care Senior It Specialist Name | Role | Phone | [...] + + | 12/27/ | Telephone | [facility] | Sascha Mir, | Appointment | | 2014 | | NEUROSURGERY [address] | DO [address] | | | | | [address] [facility] [address] | [address] [place], [place] | | | | | [place] | [id number] | | | | | [address] | | | | | | [phone] | | | +--------+ + + + [...] | Office | | MD Michael [address] [place] [address] | | | | Visit | | Ed [address]opes | | | | | | [place] [address] | | | | | | [phone] | | | | | | | | +--------+ + + + + documented as of this encounter Visit Diagnoses Not on filedocumented in this encounter"
--- OUTSIDE RECORDS SUMMARY | ~2019-12-09 | XMS | Encounter Summary ---
Demographics + + + | Address | [address] | | | [place] [address] | + + + | Home Phone [...] Team Providers + +------+ + | Care Tar Heat Exchanger Cleaner Name | Role | Phone | [...] | | | | | Procedures | [place], | [facility] Center | | | | | PHYSICAL | [place] | for Health | | | | | THERAPY | [address] | and Healing, | | | | | REFERRAL | Phone: | Building 1, | | | | | | [phone] | [address] Floor | | | | | | Fax: | [place], [place] | | | | | | [phone] | [address] | | | | | | | Phone: | | | | | | | [phone] | | | | | | | Fax: | | | | | | | [phone] | +--------+--------+ + + + + Encounter Details +--------+---------+ + + + | Date | Type | Department | Care Team | Description | +--------+---------+ + + + | 06/27/ | Office | [facility] | Edith Gil, | Morbid obesity (HCC) | | 2019 | Visit | Therapy Services at | PT,DPT [address] [facility] | (Primary Dx) | | | | [facility] | [facility] | | | | | [address] | [place], [place] | | | | | Mailcode: [place] | [address] | | | | | for Health and | | | | | | Brigette, [facility] [address] | | | | | | [place] [address] | | | | | | [phone] | | | +--------+---------+ + + + [...] children or pets 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 [place] / Product Type: Medicaid / Non-Medicare [facility] PHYSICAL THERAPY EVALUATION Past Medical History: [...] day prior to colonoscopy as directed by [facility]. Discard remaining half jug. Indications: Bowel [...] y.o. person here for pre-op appointment for [facility] surgical program. Activity limitations and participation restrictions: [...] Log roll technique Strength training: Access Code: [email or web address] URL: [email or web address] Date: 06/27/2019 Prepared by: Dennise Gil Exercises [...] Moderate - Moderate complexity Complexity: Moderate - 82327 The patient requires services that can be [...] change in their status. Edith Gil, PT,DPT [facility] PHYSICAL THERAPY SERVICES AT [facility] Scheduled Appointment time: 11:45 AM The patient was seen for a total of 40 minutes of treatment time. 40 minutes was in direct contact care as described above and on completed flow sheets. Treatment Interventions duration in minutes: Procedure:Physical Therapy Evaluation Authorization information for first visit and progress reports Procedure Codes: Re-evaluation 05832, Therapeutic Exercise 69154, Manual Therapy 06160, Th erapeutic Activities 85927, Neuromuscular Reeducation 46930, Gait Training 03526 and Self-ca re ADL 72512 Minutes per session: 45 Total number of visits: 1 Frequency: discharge Duration: n/a (must exceed or match Medicare service period request) Service period from: 06/27/2019 to: - (Medicare must match duration or be no greater than 90 days if proposed duration is greater than 3 months) Start of care: 06/27/2019 Referral information Authorizing Provider: JEN RIDLEY [[id number]] [facility]/Referral Date: 05/03/19 Primary/Referral Diagnosis: No diagnosis found. Next progress report 08/26/2019 Insurance: Payor: [facility] [place] / Plan: [facility] [place] / Product Type: Medicaid / [...] | | | | | | [place] [address] | | | | | | [phone] | | | | | | | | +--------+ + + + + | 01/10/ | Appointment | Gastroenterology | Guillermo Quach MD | | | 2019 | | | [address] | | | | | | [place], | | | | | | [place] [address] | | | | | | [phone] | | | | | | | | +--------+ + + + + documented as of this encounter Visit Diagnoses + + | Diagnosis | + + | Morbid obesity (HCC) - Primary Morbid obesity | + + documented in this encounter
--- OUTSIDE RECORDS SUMMARY | ~2019-12-09 | XMS | Encounter Summary ---
Demographics + + + | Address | [address] | | | [place] [address] | + + + | Home Phone [...] Team Providers + +------+ + | Care Tire Balancer Name | Role | Phone | + [...] | | | | | ear | [facility], | | | | | Dizziness | Rd | 10th Floor | | | | | Procedures | [place], [place] | [place], [place] | | | | | [address] [place] | [address] | [address] | | | | | BENIGN | Phone: | Phone: | | | | | DISEASE WO | [phone] | [phone] | | | | | [address] CT | Fax: | Fax: | | | | | SCAN,ORBIT/S | [phone] | [phone] | | | | | CORY/POST | [...] | | | media, not | | [place], [place] | | | | | specified as | | [address] | | | | | acute or | | Phone: | | | | | chronic | | [phone] | | | | | Conductive | | Fax: | | | | | hearing | | [phone] | | | | | loss, | [...] | | | | [address] | [place], [place] | Dizziness | | | | Physician's | [address] | | | | | Pavilion, 2nd floor | [phone] | | | | | [place], [place] | | | | | | [address] | | | | | | [phone] | | | +--------+---------+ + + + [...] coordinating of care. Windy Rodriguez MD PhD Onion [facility] Otology, Neurotology & Skull Base Surgery documented [...] | | | | | | [place] [address] | | | | | | [phone] | | | | | | | | +--------+ + + + + | 01/10/ | Appointment | Gastroenterology | Guillermo Quach MD | | | 2019 | | | [address] | | | | | | [place], | | | | | | [place] [address] | | | | | | [phone] | | | | | | | [...] | | | | | | MD SYO I have | | | | | [...]
--- OUTSIDE RECORDS SUMMARY | ~2019-12-09 | XMS | Encounter Summary ---
Demographics + + + | Address | [address] | | | [place] [address] | + + + | Home Phone [...] | Author | [facility] | | | and [place] | + + + | Organization | [facility] | | [...] [place] | | | | | [address] | | + + + + + | Pratibha Hester | ECON | Unknown | + | + + + + + | Demian Powell | ECON | Unknown | + | + + + + + Care Team Providers + +------+ + | Care Space Planner Name | Role | Phone | + +------+ + | Quentin Manriquez PA-C | MARCK | | + +------+ + Encounter Details +--------+ + + + + | Date | Type | Department | Care Team | Description | +--------+ + + + + | 03/17/ | Hospital | [facility] | Amol Triplett, | Spondylolisthesis of | | 2014 | Encounter | MED CTR XRAY [address] | PA-C [address] | lumbar region | | | | [place] | [address] [place] | L5-S1; S/P lumbar | | | | [place] [address] | [place] [address] | fusion | | | | [phone] | [phone] | | | | | | | [...] | Office | | MD Michael [address] | | | | Visit | | [place] | | | | | | [place] [address] | | | | | | [phone] | | | | | | | [...] + + | Performing | Address | City/State/Rustcode | Phone Number | | Organization | | | | + + + + + | [facility] | [address] | [place] | [phone] | | [facility] | | [address] | | | - IMAGING | | | | + + + + + documented in this encounter Visit Diagnoses + + | Diagnosis | + + | Spondylolisthesis of lumbar region L5-S1 Acquired spondylolisthesis | + + | S/P lumbar fusion Arthrodesis status | + + documented in this encounter"
--- OUTSIDE RECORDS SUMMARY | ~2019-12-09 | XMS | Encounter Summary ---
Demographics + + + | Address | [address] | | | [place] [address] | + + + | Home Phone [...] Team Providers + +------+ + | Care Finish Carpenter Name | Role | Phone | + [...] + + | 05/08/ | Emergency | [facility] Emergency | Davis Cabrera MD | | | 2008 | | Department [address] | [address] [facility] | | | | | [address] | Richard Amarillo Slick | | | | | [facility] | [place], [place] | | | | | [place], [place] | [address] | | | | | [address] | [phone] | | | | | [phone] | | | +--------+ + + + [...] documented in this encounter Discharge Instructions Instructions Gómez Tenorio Mdfany - 05/08/2009Shingles (Herpes Zoster) You have been [...] be followed carefully by your caregiver or supervisor hot dip tinning. 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 You do not have pain relief from prescribed medications. Your condition is worsening or has changed from what originally brought you in. ExitCare Patient Information 2006 [employer]. documented in this encounter Medications at Time [...] | | | | | | [place] [address] | | | | | | [phone] | | | | | | | | +--------+ + + + + | 01/10/ | Appointment | Gastroenterology | Guillermo Quach MD | | | 2019 | | | [address] | | | | | | [place], | | | | | | [place] [address] | | | | | | [phone] | | | | | | | | +--------+ + + + + documented as of this encounter Visit Diagnoses + + | Diagnosis | + + | Herpes Zoster Herpes zoster without mention of complication | + + documented in this encounter"
--- OUTSIDE RECORDS SUMMARY | ~2019-12-09 | XMS | Encounter Summary ---
Demographics + + + | Address | [address] | | | [place] [address] | + + + | Home Phone [...] Author | [facility] | | | and [place] | + + + | Organization | [facility] | | [...] [place] | | | | | [address] | | + + + + + | Pratibha Hester | ECON | Unknown | + | + + + + + | Demian Powell | ECON | Unknown | + | + + + + + Care Team Providers + +------+ + | Care Machine Operator Cane Cutter Name | Role | Phone | + +------+ + | Qunetin Manriquez PA-C | MARCK | | + +------+ + Reason for Visit + + + | Reason | Comments | + + + | Medication Refill | | + + + Encounter Details +--------+--------+ + + + | Date | Type | Department | Care Team | Description | +--------+--------+ + + + | 05/25/ | Refill | [facility] | Sascha Mir, | Medication Refill | | 2014 | | NEUROSURGERY [address] | DO [address] | | | | | [address] | [address] [place], [place] | | | | | [place] | [id number] | | | | | [address] | | | | | | [phone] | | | +--------+--------+ + + + [...] | Office | | MD Michael [address] [place] [address] | | | | Visit | | Ed [address]opes | | | | | | [place] [address] | | | | | | [phone] | | | | | | | | +--------+ + + + + documented as of this encounter Visit Diagnoses Not on filedocumented in this encounter"
--- OUTSIDE RECORDS SUMMARY | ~2019-12-09 | XMS | Encounter Summary ---
Demographics + + + | Address | [address] | | | [place] [address] | + + + | Home Phone [...] [place] | | | | | [address] | | + + + + + | Pratibha Hester | ECON | Unknown | + | + + + + + | Demian Powell | ECON | Unknown | + | + + + + + Care Team Providers + +------+ + | Care Regional Construction Manager Name | Role | Phone | [...] | | | | back pain | [place] | | | | | | S/P lumbar | [address] | | | | | | fusion | Phone: | | | | | | | [phone] | | | | | | | Fax: | | | | | | | [phone] | | +--------+ + + + + [...] pain | [address] | [address] [place] | | | | | Cervical | [place] | [place] | | | | | radicular | [address] | [address] Phone: | | | | | pain | Phone: | [phone] | | | | | | [phone] | Fax: | | | | | | Fax: | [phone] | | | | | | [phone] | | +--------+ + + + + + Encounter Details +--------+---------+ + + + | Date | Type | Department | Care Team | Description | +--------+---------+ + + + | 07/22/ | Office | [facility] | Roger Triplett | Chronic low back | | 2014 | Visit | PHYSIATRY [address] | TMD [address] | pain (Primary Dx); | | | | [address] | [place] | Lumbar | | | | [place] | [id number] | radiculopathy; S/P | | | | [address] | | lumbar fusion; | | | | [phone] | | Sacroiliitis; Morbid | | | | | | obesity due to | | | | | | excess calories | | | | | | ([facility]) | +--------+---------+ + + + Social History [...] 8:21 AM PST Roger Triplett MD [address] [facility], [address] [place] [address] FAX: PHYSICAL MEDICINE AND REHABILITATION H&P CHIEF [...] has no apparent deficits with short or jail memory. She has appropriate fund of knowledge [...] region. Lumbar facet loading was negative. [facility] testing showed 5/5 strength throughout the lower [...] | Office | | MD Michael [address] | | | | Visit | | [place] [facility] | | | | | | [place] [address] | | | | | | [phone] | | | | | | | [...]
--- OUTSIDE RECORDS SUMMARY | ~2019-12-09 | XMS | Encounter Summary ---
Demographics + + + | Address | [address] | | | [place] [address] | + + + | Home Phone [...] [place] | | | | | [address] | | + + + + + | Pratibha Hester | ECON | Unknown | + | + + + + + | Demian Powell | ECON | Unknown | + | + + + + + Care Team Providers + +------+ + | Care Meat Cooler Name | Role | Phone | + [...] + | 01/01/ | Telephone | [facility] | Sascha Mir, | Other (Medication | | 2015 | | NEUROSURGERY [address] | DO [address] | refill) | | | | [address] | [address] [place], [place] | | | | | [place] | [address] | | | | | [address] | | | | | | [phone] | | | +--------+ + + + [...] | Office | | MD Michael [address] [place] [address] | | | | Visit | | [address] | | | | | | [place] [address] | | | | | | [phone] | | | | | | | | +--------+ + + + + documented as of this encounter Visit Diagnoses Not on filedocumented in this encounter"
--- OUTSIDE RECORDS SUMMARY | ~2019-12-09 | XMS | Encounter Summary ---
Demographics + + + | Address | [address] | | | [place] [address] | + + + | Home Phone [...] [place] | | | | | [address] | | + + + + + | Pratibha Hester | ECON | Unknown | + | + + + + + | Demian Powell | ECON | Unknown | + | + + + + + Care Team Providers + +------+ + | Care Glass Installer Name | Role | Phone | + +------+ + | Quentin Manriquez PA-C | MARCK | | + +------+ + Encounter Details +--------+ + + + + | Date | Type | Department | Care Team | Description | +--------+ + + + + | 09/26/ | Hospital | [facility] | Sascha Mir, | Displacement of | | 2014 | Encounter | MED CTR XRAY [address] | DO [address] | lumbar | | | | [place] | [address] | intervertebral disc | | | | [place] [address] | [id number] | without myelopathy | | | | [phone] | | | +--------+ + + + [...] + + + +---------+ + + | ascorbic acid | Take 500 mg by mouth | | 0 | | | | (VITAMIN C) 100 | Daily. | | | | 5 | | mg/mL LIQD | | | | | | + [...] + +---------+ + + | | Take by mouth. | | 0 | | | | HYDROCHLOROTHIAZIDE | | | | | 5 | | PO | | | | | | + + + +---------+ + + | | Take 1 tablet by | | 0 | | | | HYDROcodone-acetamin | mouth Daily. | | | | 5 | | ophen (NORCO) 5-325 | | | | | | | mg [...] + + +---------+ + + | omeprazole | Take 20 mg by mouth | | 0 | | | | (PRILOSEC) 20 mg | Daily. | | | | 5 | | capsule | | | | [...] | Office | | MD Michael [address] | | | | Visit | | [place] | | | | | | [place] [address] | | | | | | [phone] | | | | | | | | +--------+ + + + + documented as of this encounter Procedures + +--------+ + + + | Procedure Name | Priori | Date/Time | Associated Diagnosis | Comments | | | ty | | | | + +--------+ + + + | XR LUMBAR SPINE 4 + | Routin | 09/26/2014 | Displacement of | Results for this | | VW | e | 9:21 AM | lumbar | procedure are in the | | | | PST | intervertebral disc | results section. | | | | | without myelopathy | | + +--------+ + + + documented in this encounter Results XR Lumbar Spine 4 + Vw (09/26/2014 9:21 AM PST) + + | Specimen | + + | | + + + + + | Narrative | Performed At | + + + | EXAM: XR LUMBAR SPINE 4 + VW dated 09/26/2014 8:51 AM | [facility] | | HISTORY:Back pain COMPARISON: MRI from [facility] dated | [facility] | | June 25, 2014 [...] | 09/26/2014 8:51 AMHISTORY:Back painCOMPARISON: MRI from [facility] dated | | June 25, 2014 and [...] + + | Performing | Address | City[facility] | Phone Number | | Organization | | | | + + + + + | [address] | [address] | [place] | [phone] | | [facility] | | [address] | | | - IMAGING | | | | + + + + + documented in this encounter Visit Diagnoses + + | Diagnosis | + + | Displacement of lumbar intervertebral disc without myelopathy | + + documented in this encounter"
--- OUTSIDE RECORDS SUMMARY | ~2019-12-09 | XMS | Encounter Summary ---
Demographics + + + | Address | [address] | | | [place] [address] | + + + | Home Phone [...] Team Providers + +------+ + | Care Counter Pocket Trimmer Name | Role | Phone | [...] Medical Records | | 2019 | | [place] [facility] [address] | | Review | | | | [place] [address]re[place] | | | | | | Mailcode: [place] | | | | | | [facility] Health and | | | | | | [facility], [facility] | | | | | | [place], [place] | | | | | | [address] | | | | | | [phone] | | | +--------+ + + + [...] | | | | | [address] [place], | | | | | | [place] [address] | | | | | | [phone] | | | | | | | | +--------+ + + + + | 01/10/ | Appointment | Gastroenterology | Guillermo Quach MD | | | 2019 | | | [address] | | | | | | [address] [place], | | | | | | [place] [address] | | | | | | [phone] | | | | | | | | +--------+ + + + + documented as of this encounter Visit Diagnoses Not on filedocumented in this encounter"
--- OUTSIDE RECORDS SUMMARY | ~2019-12-09 | XMS | Encounter Summary ---
Demographics + + + | Address | [address] | | | [place] [address] | + + + | Home Phone | | + + + | Preferred Language | Unknown | + + + | Marital Status | Single | + + + | Quaker Affiliation | 1041 | + + + | Race | Unknown | + + + | Ethnic Group | Unknown | + + + Author + + + | Author | [facility] | | | and [place] | + + + | Organization | [facility] | | | [...] [place] | | | | | [address] | | + + + + + | Pratibha Hester | ECON | Unknown | + | + + + + + | Demian Powell | ECON | Unknown | + | + + + + + Care Team Providers + +------+ + | Care Behavior Support Specialist Name | Role | Phone | [...] + + | 12/19/ | Telephone | [facility] | Sascha Mir, | Other | | 2014 | | NEUROSURGERY [address] | DO [address] | | | | | [address] | [address] [place], [place] | | | | | [place] | [address] | | | | | [address] | | | | | | [phone] | | | +--------+ + + + [...] 2019 | Office | | MD Michael [address] [place] [address] | | | | Visit | | Ed Lopes | | | | | | [place] [address] | | | | | | [phone] | | | | | | | | +--------+ + + + + documented as of this encounter Visit Diagnoses Not on filedocumented in this encounter"
--- OUTSIDE RECORDS SUMMARY | ~2019-12-09 | XMS | Encounter Summary ---
Demographics + + + | Address | [address] | | | [place] [address] | + + + | Home Phone [...] + + + | Author | [facility] | | | and [place] | + + + | Organization | [facility] | | [...] [place] | | | | | [address] | | + + + + + | Pratibha Hester | ECON | Unknown | + | + + + + + | Demian Powell | ECON | Unknown | + | + + + + + Care Team Providers + +------+ + | Care Steward/Stewardess Club Car Name | Role | Phone | + [...] + + | 06/11/ | Telephone | [facility] | Sascha Mir, | Other (Med refill) | | 2014 | | NEUROSURGERY [address] | DO [address] | | | | | [address] [facility] | [address] [place] [address] | | | | | [place] | [address] | | | | | [address] | | | | | | [phone] | | | +--------+ + + + [...] | Office | | MD Michael [address] | | | | Visit | | Ed Lopes | | | | | | [place] [address] | | | | | | [phone] | | | | | | | | +--------+ + + + + documented as of this encounter Visit Diagnoses + + | Diagnosis | + + | Nausea - Primary Nausea alone | + + documented in this encounter"
--- OUTSIDE RECORDS SUMMARY | ~2019-12-09 | XMS | Clinical Summary ---
Demographics + + + | Address | [address] | | | [place] [address] | + + + | Home Phone | | + + + | Preferred Language | Unknown | + + + | Marital Status | Single | + + + | Caodaism Affiliation | Unknown | + + + | Race | Unknown | + + + | Ethnic Group | Unknown | + + + Author + + + | Author | [facility] [employer] (Historical as of | | | 03-24-19) | + + + | Organization | [facility] [employer] (Historical as of | | | 03-24-19) [...] Team Providers + +------+ + | Care Track Laying Equipment Operator Name | Role | Phone [...] | | 05/07/2014, 05/18/2013, | | | (Season Ended) | 0 | 04/08/2011, Additional history | | | [...] +------+-------+ + | MEDICAID | [place] | [id number] | | | [address] | | | N | | | | [place] | | | [place] | | | | [address] | | | HUMAN SERVICES SUPERVISOR | | | | | + +--------+ [...] Self | [birth year] | Home: | [address] | | | al/Fam | | 1970 | [phone] | [place] [address] | | | neil | | | 2048 | | + +--------+ +--------+ + +
--- OUTSIDE RECORDS SUMMARY | ~2019-12-09 | XMS | Encounter Summary ---
Demographics + + + | Address | [address] | | | [place] [address] | + + + | Home Phone | | + + + | Preferred Language | Unknown | + + + | Marital Status | Single | + + + | Rastafari Affiliation | 1041 | + + + | Race | Unknown | + + + | Ethnic Group | Unknown | + + + Author + + + | Author | [facility] | | | and [place] | + + + | Organization | [facility] | | | [...] [place] | | | | | [address] | | + + + + + | Pratibha Hester | ECON | Unknown | + | + + + + + | Demian Powell | ECON | Unknown | + | + + + + + Care Team Providers + +------+ + | Care Lead Solutions Architect Name | Role | Phone | + [...] + + | 06/20/ | Refill | [facility] | Char Duque | Medication Refill | | 2019 | | PLASTIC SURGERY AND | B, EDGE BEADER [address] | | | | | DERMATOLOGY [address] | ZOILA REDMAN [place] | | | | | [place] [facility] [place] | [place] | | | | | [place] | [address] | | | | | [address] | | | | | | [phone] | | | +--------+--------+ + + + [...] | Office | | MD Michael [address] [place] [address] | | | | Visit | | Ed Lopes | | | | | | [place] [address] | | | | | | [phone] | | | | | | | | +--------+ + + + + documented as of this encounter Visit Diagnoses Not on filedocumented in this encounter"
--- OUTSIDE RECORDS SUMMARY | ~2019-12-09 | XMS | Encounter Summary ---
Demographics + + + | Address | [address] | | | [place] [address] | + + + | Home Phone [...] [place] | | | | | [address] | | + + + + + | Pratibha Hester | ECON | Unknown | + | + + + + + | Demian Powell | ECON | Unknown | + | + + + + + Care Team Providers + +------+ + | Care Ready To Wear Department Manager Name | Role | Phone | + +------+ + | Gracie Lewis PA-C | PCP | | + +------+ + Reason for Visit + + + | Reason | Comments | + + + | New Patient | chest pain and htn | + + + Evaluate & Treat (Routine) + +--------+ + + + + | Status | Reason | Specialty | Diagnoses / | Referred By | Referred To | | | | | Procedures | Contact | Contact | + +--------+ + + + + | Authorized | | Cardiology | Diagnoses | Joshua, | Shi, | | | | | CHEST PAIN | Gracie Armendariz, | Rudy Capellan MD | | | | | - CARDIAC | PA-C [address] | [address] | | | | | CLEARANCE | [place] | CHRISTOS [address]A | | | | | | [place] | [place] | | | | | | [place] [address] | [place] | | | | | | Phone: | [phone] Phone: | | | | | | [phone] | [phone] | | | | | | Fax: | Fax: | | | | | | [phone] | [phone] | + +--------+ + + + + Encounter Details +--------+---------+ + + + | Date | Type | Department | Care Team | Description | +--------+---------+ + + + | 09/25/ | Office | [facility] | Rudy Osullivan, | Atypical chest pain | | 2020 | Visit | CARDIOLOGY [place] | MD [address] | (Primary Dx); | | | | [address] [facility] | [place], | Essential | | | | [address] | [place] [address] | hypertension; | | | | [place], [place] | [phone] | Preoperative | | | | [address] | | cardiovascular | | | | [phone] | | examination; | | | | [...] recently on an emergency room visit at [facility] in August. See no reason why she [...] sweats, c/o significant Fatigue NEUROLOGIC: Hyperglycemic "coma" 2018. No history of CVA, TIA, states both legs were para lyzed, 2012 after her sister , kind of "seizured [...] h/o an AAA. -- Echo (05/31/18 - [facility]): EF 60-65%, normal RV size, function, mild MR -- Coronary CT Calcium Score (06/12/14 - [facility]): -0-, low risk -- Exercise Cardiolite Stress Test (04/12/14 - [facility]): exercised 6:38, 7 METS, max HR 173, [...] low back pain 07/22/2015 Diabetes mellitus (HCC) 2014 Insulin requiring type II Diabetes Essential hypertension [...] Laterality Date ADENOIDECTOMY SECTION, LOW TRANSVERSE 1995 [facility] [place] SECTION, LOW TRANSVERSE 2005 [facility] [place] CHOLECYSTECTOMY LUMBAR LAMINECTOMY N/A 12/12/2014 Procedure: [...] file Gets together: Not on file Attends scientology service: Not on file Active member of [...] Not on file Allergies Allergen Reactions Anesthetics, Ludimla Anaphylaxis,Itching,Swelling Allergic to anesthetics - reports throat [...] 324 mg by mouth daily (with breakfast). Ixtkfbe-Wrojzncedrnc-Qkfduyees (TRI-RAJ) 0.01-4-0.05 % CREA APPLY TO CLEAN [...] cumented in this encounter Plan of Treatment +--------+ + + + + | Date | Type | Specialty | Care Team | Description | +--------+ + + + + | 12/11/ | Virtual | Sleep Medicine | Jasiel Loo | | | 2019 | Office | | MD Michael [address] [place] [address] | | | | Visit | | Ed Lawson | | | | | | [place] [address] | | | | | | [phone] | | | | | | | [...] at | | | | | | [facility])Confirmed by Shi | | | | | | Rudy ANAND ([id number]) on | | | | | | [...]
--- OUTSIDE RECORDS SUMMARY | ~2019-12-09 | XMS | Encounter Summary ---
Demographics + + + | Address | [address] | | | [place] [address] | + + + | Home Phone [...] Team Providers + +------+ + | Care Technician Telecommunication Systems Name | Role | Phone | [...] | Otology Services at | MD Loli [address] | | | | | [address] | | | | | [address] | [place], [place] | | | | | Physician's | [address] | | | | | [address] | [phone] | | | | | [place], [place] | | | | | | [address] | | | | | | [phone] | | | +--------+ + + + [...] | | | | | | [place] [address] | | | | | | [phone] | | | | | | | | +--------+ + + + + | 01/10/ | Appointment | Gastroenterology | Guillermo Quach MD | | | 2019 | | | [address] | | | | | | [place] | | | | | | [place] [address] | | | | | | [phone] | | | | | | | | +--------+ + + + + documented as of this encounter Visit Diagnoses Not on filedocumented in this encounter"
--- OUTSIDE RECORDS SUMMARY | ~2019-12-09 | XMS | Encounter Summary ---
Demographics + + + | Address | [address] | | | [place] [address] | + + + | Home Phone [...] Team Providers + +------+ + | Care Implementation Consultant Name | Role | Phone | [...] | | | | | [place], | | | | | | [place] [address] | | | | | | [phone] | | | | | | | | +--------+ + + + + | 01/10/ | Appointment | Gastroenterology | Guillermo Quach MD | | | 2019 | | | [address] | | | | | | [place], | | | | | | [place] [address] | | | | | | [phone] | | | | | | | | +--------+ + + + + documented as of this encounter Visit Diagnoses Not on filedocumented in this encounter"
--- OUTSIDE RECORDS SUMMARY | ~2019-12-09 | XMS | Encounter Summary ---
Demographics + + + | Address | [address] | | | [place] [address] | + + + | Home Phone [...] [place] | | | | | [address] | | + + + + + | Pratibha Hester | ECON | Unknown | + | + + + + + | Demian Powell | ECON | Unknown | + | + + + + + Care Team Providers + +------+ + | Care Electric Installer Name | Role | Phone | [...] + | 01/16/ | Refill | [facility] | Lenka Mann | Medication Refill | | 2014 | | NEUROSURGERY [address] | Oleks[facility]r, [facility] | | | | | ED [facility] | Head Teller | | | | | [place] | | | | | | [address] | | | | | | [phone] | | | +--------+--------+ + + + [...] | Office | | MD Michael [address] | | | | Visit | | Ed Lopes | | | | | | [place] [address] | | | | | | [phone] | | | | | | | | +--------+ + + + + documented as of this encounter Visit Diagnoses + + | Diagnosis | + + | Nausea - Primary Nausea alone | + + documented in this encounter"
--- OUTSIDE RECORDS SUMMARY | ~2019-12-09 | XMS | Encounter Summary ---
Demographics + + + | Address | [address] | | | [place] [address] | + + + | Home Phone [...] Author | [facility] | | | and [place] | + + + | Organization | [facility] | [...] [place] | | | | | [address] | | + + + + + | Pratibha Hester | ECON | Unknown | + | + + + + + | Demian Powell | ECON | Unknown | + | + + + + + Care Team Providers + +------+ + | Care Senior Ios Software Engineer Name | Role | Phone [...] + + | 08/13/ | Telephone | [facility] | Sascha Mir, | Other | | 2015 | | NEUROSURGERY [address] | DO [address] | | | | | [address] | [address] [place], [place] | | | | | [place] | [address] | | | | | [address] | | | | | | [phone] | | | +--------+ + + + [...] 2019 | Office | | MD Michael [address] [place] [address] | | | | Visit | | Ed Lopes | | | | | | [place] [address] | | | | | | [phone] | | | | | | | | +--------+ + + + + documented as of this encounter Visit Diagnoses Not on filedocumented in this encounter"
--- OUTSIDE RECORDS SUMMARY | ~2019-12-09 | XMS | Encounter Summary ---
Demographics + + + | Address | [address] | | | [place] [address] | + + + | Home Phone [...] [place] | | | | | [address] | | + + + + + | Pratibha Hester | ECON | Unknown | + | + + + + + | Demian Powell | ECON | Unknown | + | + + + + + Care Team Providers + +------+ + | Care Induction Heating Equipment Setter Name | Role | Phone | [...] + + | 02/24/ | Telephone | [facility] | Vega Smith MD | Appointment | | 2017 | | GASTROENTEROLOGY | [address] | | | | | [address] [facility] | [address] [place] | | | | | [address] [place] | [address] | | | | | [address] | | | | | | [phone] | | | +--------+ + + + [...] | Office | | MD Michael [address] [place] [address] | | | | Visit | | Ed Lopes | | | | | | [place] [address] | | | | | | [phone] | | | | | | | | +--------+ + + + + documented as of this encounter Visit Diagnoses Not on filedocumented in this encounter"
--- OUTSIDE RECORDS SUMMARY | ~2019-12-09 | XMS | Encounter Summary ---
Demographics + + + | Address | [address] | | | [place] [address] | + + + | Home Phone [...] Team Providers + +------+ + | Care Deputy Jailer Name | Role | Phone | + +------+ + | Soniya Sinha [facility] | PCP | | + +------+ + Encounter Details +--------+ + + + + | Date | Type | Department | Care Team | Description | +--------+ + + + + | 10/03/ | Laborer [place] | Otolaryngology | Windy Mclean | Dizziness (Primary | | 2013 | | Otology Services at | MD Loli [address] | Dx); Hearing loss | | | | [address] | | | | | [address] | [facility] [place] | | | | | Physician's | [address] | | | | | Pavilion, 2nd floor | [phone] | | | | | [facility] [place] | | | | | | [address] | | | | | | [phone] | | | +--------+ + + + [...] | | | | | | [place] [address] | | | | | | [phone] | | | | | | | | +--------+ + + + + | 01/10/ | Appointment | Gastroenterology | Guillermo Quach MD | | | 2019 | | | [address] | | | | | | [place] | | | | | | [place] [address] | | | | | | [phone] | | | | | | | | +--------+ + + + + documented as of this encounter Visit Diagnoses + + | Diagnosis | + + | Dizziness - Primary Dizziness and giddiness | + + | Hearing loss | + + documented in this encounter"
--- OUTSIDE RECORDS SUMMARY | ~2019-12-09 | XMS | Encounter Summary ---
Demographics + + + | Address | [address] | | | [place] [address] | + + + | Home Phone [...] [place] | | | | | [address] | | + + + + + | Pratibha Hester | ECON | Unknown | + | + + + + + | Demian Powell | ECON | Unknown | + | + + + + + Care Team Providers + +------+ + | Care Glost Tile Shader Name | Role | Phone | + [...] + + | 05/05/ | Telephone | [facility] | Sascha Mir, | Other | | 2014 | | NEUROSURGERY [address] | DO [address] | | | | | [address] [facility] | [address] [place], [place] | | | | | [place] | [address] | | | | | [address] | | | | | | [phone] | | | +--------+ + + + [...] 2019 | Office | | MD Michael [address] [place] [address] | | | | Visit | | Ed Lopes | | | | | | [place] [address] | | | | | | [phone] | | | | | | | | +--------+ + + + + documented as of this encounter Visit Diagnoses Not on filedocumented in this encounter"
--- OUTSIDE RECORDS SUMMARY | ~2019-12-09 | XMS | Encounter Summary ---
Demographics + + + | Address | [address] | | | [place] [address] | + + + | Home Phone [...] | [facility] | | | and [place] | + + + | Organization | [facility] | | | and [...] [place] | | | | | [address] | | + + + + + | Pratibha Hester | ECON | Unknown | + | + + + + + | Demian Powell | ECON | Unknown | + | + + + + + Care Team Providers + +------+ + | Care Cna Hospice Name | Role | Phone | + [...] + + | 02/25/ | Telephone | [facility] | Sascha Mir, | Medication Refill | | 2014 | | NEUROSURGERY [address] | DO [address] | | | | | [address] | [address] [place] | | | | | [place] | [id number] | | | | | [address] | | | | | | [phone] | | | +--------+ + + + [...] | Office | | MD Michael [address] [place] [address] | | | | Visit | | Ed Lopes | | | | | | [place] [address] | | | | | | [phone] | | | | | | | | +--------+ + + + + documented as of this encounter Visit Diagnoses + + | Diagnosis | + + | Nausea - Primary Nausea alone | + + documented in this encounter"
--- OUTSIDE RECORDS SUMMARY | ~2019-12-09 | XMS | Encounter Summary ---
Demographics + + + | Address | [address] | | | [place] [address] | + + + | Home Phone [...] Team Providers + +------+ + | Care Surgical Clinical Reviewer Name | Role | Phone | [...] Medical Records | | 2019 | | [place] [facility] [address] | | Review | | | | Jennifer Schreiber | | | | | | Mailcode: [place] | | | | | | [facility] | | | | | | [facility] | | | | | | [place], [place] | | | | | | [address] | | | | | | [phone] | | | +--------+ + + + [...] | | | | | [place], | | | | | | [place] [address] | | | | | | [phone] | | | | | | | | +--------+ + + + + | 01/10/ | Appointment | Gastroenterology | Guillermo Quach MD | | | 2019 | | | [address] | | | | | | [place], | | | | | | [place] [address] | | | | | | [phone] | | | | | | | | +--------+ + + + + documented as of this encounter Visit Diagnoses Not on filedocumented in this encounter"
--- OUTSIDE RECORDS SUMMARY | ~2019-12-09 | XMS | Encounter Summary ---
Demographics + + + | Address | [address] | | | [place] [address] | + + + | Home Phone | | + + + | Preferred Language | Unknown | + + + | Marital Status | Single | + + + | Yarsanism Affiliation | 1041 | + + + | Race | Unknown | + + + | Ethnic Group | Unknown | + + + Author + + + | Author | [facility] | | | and [place] | + + + | Organization | [facility] | | [...] [place] | | | | | [address] | | + + + + + | Pratibha Hester | ECON | Unknown | + | + + + + + | Demian Powell | ECON | Unknown | + | + + + + + Care Team Providers + +------+ + | Care Inspector Soldering Name | Role | Phone | + +------+ + PCP | Unavailable | + +------+ + Encounter Details +--------+ + + + + | Date | Type | Department | Care Team | Description | +--------+ + + + + | 09/20/ | Hospital | [facility] | Laz Del Valle, | | | 2005 | Encounter | MED CTR GENERIC OP | MD [address] | | | | | CONV DEPT [address] | [facility] | | | | | Ed [place], | [place] [address] | | | | | [place] [address] | [phone] | | | | | [phone] | | | +--------+ + + + [...] | Office | | MD Michael [address] | | | | Visit | | Ed Lopes | | | | | | [place] [address] | | | | | | [phone] | | | | | | | | +--------+ + + + + documented as of this encounter Visit Diagnoses Not on filedocumented in this encounter"
--- OUTSIDE RECORDS SUMMARY | ~2019-12-09 | XMS | Encounter Summary ---
Demographics + + + | Address | [address] | | | [place] [address] | + + + | Home Phone [...] [place] | | | | | [address] | | + + + + + | Pratibha Hester | ECON | Unknown | + | + + + + + | Demian Powell | ECON | Unknown | + | + + + + + Care Team Providers + +------+ + | Care Pipelines Laborer Name | Role | Phone | + +------+ + | Quentin Manriquez PA-C | MARCK | | + +------+ + Encounter Details +--------+ + + + + | Date | Type | Department | Care Team | Description | +--------+ + + + + | 12/05/ | Hospital | [facility] | Sascha Mir, | Bilateral lumbar | | 2015 | Encounter | MED CTR | DO [address] | radiculopathy; HIP | | | | [employer] | [address] [place], [place] | PAIN, LEFT, CHRONIC; | | | | [address] | [address] | Spondylolisthesis | | | | [place] [address] | | of lumbar region | | | | [phone] | | L5-S1; Pars defect | | [...] 2019 | Office | | MD Michael [address] [place] [address] | | | | Visit | | Ed Lopes | | | | | | [place] [address] | | | | | | [phone] | | | | | | | [...] Performed At | + + + | Simth Toth MD 12/06/2014 7:49 Adult ECG Report [...]
--- OUTSIDE RECORDS SUMMARY | ~2019-12-09 | XMS | Encounter Summary ---
Demographics + + + | Address | [address] | | | [place] [address] | + + + | Home Phone [...] Team Providers + +------+ + | Care Pool Technician Name | Role | Phone | + +------+ + | Quentin Cordon | PCP | | + +------+ + [...] | | | | tube | | [place], [place] | | | | | Nonsuppurati | | [address] | | | | | ve otitis | | Phone: | | | | | media, not | | [phone] | | | | | specified as | | Fax: | | | | | acute or | | [phone] | | | | | chronic | [...] | | | | [address] | [facility] [place] | Dx); OME (otitis | | | | Physician's | [address] | media with | | | | Pavilion, 2nd floor | [phone] | effusion), right; | | | | [facility] [place] | | Conductive hearing | | | | [address] | | loss in right ear; | | | | [phone] | | Dizziness; Nausea | +--------+---------+ + [...] 10:27 AM PDT Date: 04/01/2014 PCP: Quentin CORDON Demian Nina is a 44 y.o. female [...] No spontaneous nystagmus. Normal head thrust. Normal uagekm-gf-eyxa and rapid alternat ing motion. Negative Romberg. [...] with new audiogram. Windy Rodriguez MD PhD Abseiling Instructor Otology, Neurotology & Skull Base Surgery documented [...] | | | | | | [place] [address] | | | | | | [phone] | | | | | | | | +--------+ + + + + | 01/10/ | Appointment | Gastroenterology | Guillermo Quach MD | | | 2019 | | | [address] | | | | | | [place] | | | | | | [place] [address] | | | | | | [phone] | | | | | | | | +--------+ + + + + documented as of this encounter Procedures + +--------+ + + + | Procedure Name | Priori | Date/Time | Associated Diagnosis | Comments | | | ty | | | | + +--------+ + + + | VT CREATE EARDRUM | Routin | 04/01/2014 | [...]
--- OUTSIDE RECORDS SUMMARY | ~2019-12-09 | XMS | Clinical Summary ---
Demographics + + + | Address | [address] | | | [place] [address] | + + + | Home Phone | | + + + | Preferred Language | Unknown | + + + | Marital Status | Single | + + + | Confucianism Affiliation | Unknown | + + + | Race | Unknown | + + + | Ethnic Group | Unknown | + + + Author + + + | Author | [facility] (Historical as of | | | 03-24-19) | + + + | Organization | [facility] (Historical as of | | | 03-24-19) [...] Team Providers + +------+ + | Care Vessel Scrapper Helper Name | Role | Phone | [...] +------+-------+ + | MEDICAID | [place] | [id number] | | | [address] | | | [place] | | | | [place] | | | [place] | | | | [address] | | | [place] | | | | | + +--------+ [...] Self | [birth year] | Home: | [address] | | | al/Fam | | 1970 | [phone] | [place] [address] | | | neil | | | 2048 | | + +--------+ +--------+ + +
--- OUTSIDE RECORDS SUMMARY | ~2019-12-09 | XMS | Encounter Summary ---
Demographics + + + | Address | [address] | | | [place] [address] | + + + | Home Phone [...] [place] | | | | | [address] | | + + + + + | Pratibha Hester | ECON | Unknown | + | + + + + + | Demian Powell | ECON | Unknown | + | + + + + + Care Team Providers + +------+ + | Care Densitometer Reader Name | Role | Phone | [...] + + | 03/31/ | Telephone | [facility] | Sascha Mir, | Medication Problem | | 2014 | | NEUROSURGERY [address] | DO [address] | | | | | [address] [facility] 50 | [address] [place], [place] | | | | | [place] | [id number] | | | | | [address] | | | | | | [phone] | | | +--------+ + + + [...] | Office | | MD Michael [address] [place] [address] | | | | Visit | | Ed Lopes | | | | | | [place] [address] | | | | | | [phone] | | | | | | | | +--------+ + + + + documented as of this encounter Visit Diagnoses Not on filedocumented in this encounter"
--- OUTSIDE RECORDS SUMMARY | ~2019-12-09 | XMS | Encounter Summary ---
Demographics + + + | Address | [address] [facility] [facility] [address] | | | [place] [address] | + + + | Home Phone [...] [place] | | | | | [address] | | + + + + + | Pratibha Hester | ECON | Unknown | + | + + + + + | Demian Powell | ECON | Unknown | + | + + + + + Care Team Providers + +------+ + | Care Service Team Leader Name | Role | Phone [...] | | lumbar | [address] [place] [address] | | | | | spinal | [address] | [address] | | | | | fusion Back | [place] | AVE | | | | | pain, | [address] | [place], [place] | | | | | unspecified | Phone: | [address] | | | | | location | [phone] | Phone: | | | | | Radiculopath | Fax: | [phone] | | | | | y, | [phone] | Fax: | | | | | unspecified | | [phone] | | | | | spinal | [...] + + | 04/03/ | Telephone | [facility] | Sascha Mir, | Imaging Only | | 2014 | | NEUROSURGERY [address] | DO [address] [facility] [address] | | | | | [address] [facility] 50 | [address] [place], [place] | | | | | [place] | [address] | | | | | [address] | | | | | | [phone] | | | +--------+ + + + [...] | Office | | MD Michael [address] | | | | Visit | | Ed Jackson [facility] | | | | | | [place] [address] | | | | | | [phone] | | | | | | | [...]
--- OUTSIDE RECORDS SUMMARY | ~2019-12-09 | XMS | Encounter Summary ---
Demographics + + + | Address | [address] | | | [place] [address] | + + + | Home Phone [...] + | Author | [facility] | | | and [place] | + + + | Organization | [facility] | | | [...] [place] | | | | | [address] | | + + + + + | Pratibha Hester | ECON | Unknown | + | + + + + + | Demian Powell | ECON | Unknown | + | + + + + + Care Team Providers + +------+ + | Care Cardiopulmonary Technician Name | Role | Phone | + +------+ + | Quentin Manriquez PA-C | MARCK | | + +------+ + Encounter Details +--------+ + + + + | Date | Type | Department | Care Team | Description | +--------+ + + + + | 12/05/ | Hospital | [facility] | Sascha Mir, | Bilateral lumbar | | 2015 | Encounter | MED CTR XRAY [address] | DO [address] | radiculopathy; HIP | | | | [address] | [address] [place], [place] | PAIN, LEFT, CHRONIC; | | | | [place] [address] | [address] | Spondylolisthesis | | | | [phone] | | of lumbar region | | [...] | Office | | MD Michael [address] [place] [address] | | | | Visit | | Ed Lopes | | | | | | [place] [address] | | | | | | [phone] | | | | | | | [...] exam . COMPARISON: None available. FINDINGS: | [facility] | | Heart size and mediastinal contours are within normal limits. The | [facility] | | lungs are clear, without [...] [address] | [place] | [phone] | | [facility] | | [address] | | | - IMAGING | | [...]
--- OUTSIDE RECORDS SUMMARY | ~2019-12-09 | XMS | Encounter Summary ---
Demographics + + + | Address | [address] | | | [place] [address] | + + + | Home Phone [...] Team Providers + +------+ + | Care Shop Assistant Name | Role | Phone | [...] | | | | | [place], | | | | | | [place] [address] | | | | | | [phone] | | | | | | | | +--------+ + + + + | 01/10/ | Appointment | Gastroenterology | Guillermo Quach MD | | | 2019 | | | [address] | | | | | | [place], | | | | | | [place] [address] | | | | | | [phone] | | | | | | | | +--------+ + + + + documented as of this encounter Visit Diagnoses Not on filedocumented in this encounter"
--- OUTSIDE RECORDS SUMMARY | ~2019-12-09 | XMS | Encounter Summary ---
Demographics + + + | Address | [address] | | | [place] [address] | + + + | Home Phone [...] [place] | | | | | [address] | | + + + + + | Pratibha Hester | ECON | Unknown | + | + + + + + | Demian Powell | ECON | Unknown | + | + + + + + Care Team Providers + +------+ + | Care Direct Marketing Specialist Name | Role | Phone [...] + | 01/16/ | Refill | [facility] | Lenka Mann | Medication Refill | | 2014 | | NEUROSURGERY [address] | [facility], [facility] | | | | | ED [facility] 50 | Swaging Machine Operator | | | | | [place] | | | | | | [address] | | | | | | [phone] | | | +--------+--------+ + + + [...] | Office | | MD Michael [address] | | | | Visit | | Ed Lopes | | | | | | [place] [address] | | | | | | [phone] | | | | | | | | +--------+ + + + + documented as of this encounter Visit Diagnoses + + | Diagnosis | + + | Nausea - Primary Nausea alone | + + documented in this encounter"
--- OUTSIDE RECORDS SUMMARY | ~2019-12-09 | XMS | Encounter Summary ---
Demographics + + + | Address | [address] | | | [place] [address] | + + + | Home Phone [...] [place] | | | | | [address] | | + + + + + | Pratibha Hester | ECON | Unknown | + | + + + + + | Demian Powell | ECON | Unknown | + | + + + + + Care Team Providers + +------+ + | Care Palliative Care Specialist Name | Role | Phone | + +------+ + | Quentin Manriquez PA-C | MARCK | | + +------+ + Encounter Details +--------+ + + + + | Date | Type | Department | Care Team | Description | +--------+ + + + + | 12/15/ | Orders Only | [facility] | Sascha Mir, | Spondylolisthesis of | | 2016 | | NEUROSURGERY [address] | DO [address] | lumbar region; S/P | | | | [address] | [address] [place], [place] | lumbar fusion | | | | [place], [place] | [address] | | | | | [address] | | | | | | [phone] | | | +--------+ + + + [...] | Office | | MD Michael [address] | | | | Visit | | [place] | | | | | | [place] [address] | | | | | | [phone] | | | | | | | | +--------+ + + + + documented as of this encounter Visit Diagnoses + + | Diagnosis | + + | Spondylolisthesis of lumbar region Acquired spondylolisthesis | + + | S/P lumbar fusion Arthrodesis status | + + documented in this encounter"
--- OUTSIDE RECORDS SUMMARY | ~2019-12-09 | XMS | Encounter Summary ---
Demographics + + + | Address | [address] | | | [place] [address] | + + + | Home Phone [...] [place] | | | | | [address] | | + + + + + | Pratibha Hester | ECON | Unknown | + | + + + + + | Demian Powell | ECON | Unknown | + | + + + + + Care Team Providers + +------+ + | Care Rail Bonder Name | Role | Phone | + [...] + + | 12/27/ | Telephone | [facility] | Sascha Mir, | Appointment | | 2014 | | NEUROSURGERY [address] | DO [address] | | | | | [place] [facility] 50 | [address] [place], [place] | | | | | [place] | [id number] | | | | | [address] | | | | | | [phone] | | | +--------+ + + + [...] | Office | | MD Michael [address] [place] [address] | | | | Visit | | Ed Lopes | | | | | | [place] [address] | | | | | | [phone] | | | | | | | | +--------+ + + + + documented as of this encounter Visit Diagnoses Not on filedocumented in this encounter"
--- OUTSIDE RECORDS SUMMARY | ~2019-12-09 | XMS | Encounter Summary ---
Demographics + + + | Address | [address] [facility] [facility] [address] | | | [place] [address] | + + + | Home Phone [...] [place] | | | | | [address] | | + + + + + | Pratibha Hester | ECON | Unknown | + | + + + + + | Demian Powell | ECON | Unknown | + | + + + + + Care Team Providers + +------+ + | Care Caser In Name | Role | Phone | + [...] + | 03/31/ | Telephone | [facility] | Sascha Mir, | Medication Problem | | 2014 | | NEUR[address]UR[address] | DO [address] | | | | | POPL[address] [facility] 50 | [address] [place], [place] | | | | | [place] | [id number] | | | | | [address] | | | | | | [phone] | | | +--------+ + + + [...] 2019 | Office | | MD Michael [address] [place] [address] | | | | Visit | | Ed Lopes | | | | | | [place] [address] | | | | | | [phone] | | | | | | | | +--------+ + + + + documented as of this encounter Visit Diagnoses Not on filedocumented in this encounter"
--- OUTSIDE RECORDS SUMMARY | ~2019-12-09 | XMS | Encounter Summary ---
Demographics + + + | Address | [address] | | | [place] [address] | + + + | Home Phone [...] Team Providers + +------+ + | Care Epic Cadence Analyst Name | Role | Phone | [...] 2013 | | Otology Services at | [place], [address] | ear infection ) | | | | [address] | [address] | | | | | [address] | [place], [place] | | | | | Physician's | [address] | | | | | Pavilion, 2nd floor | [phone] | | | | | [place], [place] | | | | | | [address] | | | | | | [phone] | | | +--------+ + + + [...] | | | | | [place], | | | | | | [place] [address] | | | | | | [phone] | | | | | | | | +--------+ + + + + | 01/10/ | Appointment | Gastroenterology | Guillermo Quach MD | | | 2019 | | | [address] | | | | | | [place], | | | | | | [place] [address] | | | | | | [phone] | | | | | | | | +--------+ + + + + documented as of this encounter Visit Diagnoses Not on filedocumented in this encounter"
--- OUTSIDE RECORDS SUMMARY | ~2019-12-09 | XMS | Encounter Summary ---
Demographics + + + | Address | [address] | | | [place] [address] | + + + | Home Phone [...] Team Providers + +------+ + | Care Pediatric Occupational Therapist Name | Role | Phone [...] | | | | | Procedures | [place], | [facility] | | | | | PHYSICAL | [place] | for Health | | | | | THERAPY | [address] | and Healing, | | | | | REFERRAL | Phone: | [facility] 1, | | | | | | [phone] | [address] Floor | | | | | | Fax: | [place], [place] | | | | | | [phone] | [address] | | | | | | | Phone: | | | | | | | [phone] | | | | | | | Fax: | | | | | | | [phone] | +--------+--------+ + + + + Encounter Details +--------+ + + + + | Date | Type | Department | Care Team | Description | +--------+ + + + + | 05/03/ | Pharmaceutical Worker | Digestive Health | Jen Coronel, | Morbid obesity (HCC) | | 2019 | | [facility] [address] | AGACNP [address] | (Primary Dx) | | | | [address] | Ave [place], [place] | | | | | Mailcode: [place] | [address] | | | | | for Health and | | | | | | [facility], [facility] 2 | | | | | | [place], [place] | | | | | | [address] | | | | | | | [...] | | | | | | [place] [address] | | | | | | [phone] | | | | | | | | +--------+ + + + + | 01/10/ | Appointment | Gastroenterology | Guillermo Quach MD | | | 2019 | | | [address] | | | | | | [place] | | | | | | [place] [address] | | | | | | [phone] | | | | | | | | +--------+ + + + + documented as of this encounter Visit Diagnoses + + | Diagnosis | + + | Morbid obesity (HCC) - Primary Morbid obesity | + + documented in this encounter"
--- OUTSIDE RECORDS SUMMARY | ~2019-12-09 | XMS | Encounter Summary ---
Demographics + + + | Address | [address] | | | [place] [address] | + + + | Home Phone [...] [place] | | | | | [address] | | + + + + + | Pratibha Hester | ECON | Unknown | + | + + + + + | Demian Powell | ECON | Unknown | + | + + + + + Care Team Providers + +------+ + | Care Hot Metal Mixer Operator Name | Role | Phone | [...] | | [place] | [place] [address] | | | | | [address] | [phone] | | | | | [phone] | | | +--------+--------+ + + + [...] | Office | | MD Michael [address] [place] [address] | | | | Visit | | Ed Lopes | | | | | | [place] [address] | | | | | | [phone] | | | | | | | | +--------+ + + + + documented as of this encounter Visit Diagnoses Not on filedocumented in this encounter"
--- OUTSIDE RECORDS SUMMARY | ~2019-12-09 | XMS | Encounter Summary ---
Demographics + + + | Address | [address] [address] | | | [place] [address] | + + + | Home Phone [...] [place] | | | | | [address] | | + + + + + | Pratibha Hester | ECON | Unknown | + | + + + + + | eDmian Powell | ECON | Unknown | + | + + + + + Care Team Providers + +------+ + | Care Family And Consumer Education Teacher Name | Role | Phone | [...] | | | spondylolist | | [place] | | | | | hesis | | [place], | | | | | Acquired | | [place] [address] | | | | | spondylolist | | Phone: | | | | | hesis | | [phone] | | | | | Procedures | | Fax: | | | | | [place] | | [phone] | | | | | POST/POSTERO | [...] + + | 12/12/ | Hospital | [facility] | Sascha Mir, | Acquired | | 2015 | Encounter | MED CTR XRAY [address] | DO [address] | spondylolisthesis | | | | [place] | [address] | | | | | [place] [address] | [address] | | | | | [phone] | | | +--------+ + + + [...] tablet by | | 0 | | 03/16/201 | | | mouth Daily. | | [...] by mouth | | 0 | | 07/11/201 | | (PRINIVIL, ZESTRIL) | Daily. | [...] | Office | | MD Michael [address] | | | | Visit | | Ed Lopes | | | | | | [place] [address] | | | | | | [phone] | | | | | | | [...] | | | TERI | | | [facility] | | | - IMAGING | + + + + + + + + | Performing | Address | City/State/Zipcode | Phone Number | | Organization | | | | + + + + + | [facility] | [address] | [place] | [phone] | | [facility] | | [address] | | | - IMAGING | | | | + + + + + documented in this encounter Visit Diagnoses + + | Diagnosis | + + | Acquired spondylolisthesis | + + documented in this encounter"
--- OUTSIDE RECORDS SUMMARY | ~2019-12-09 | XMS | Encounter Summary ---
Demographics + + + | Address | [address] [facility] [address] | | | [place] [address] | + + + | Home Phone [...] [place] | | | | | [address] | | + + + + + | Pratibha Hester | ECON | Unknown | + | + + + + + | Demian Powell | ECON | Unknown | + | + + + + + Care Team Providers + +------+ + | Care Buttermaker Helper Name | Role | Phone | [...] | | | | S/P lumbar | [address] | | | | | | fusion | Phone: | | | | | | | [phone] | | | | | | | Fax: | | | | | | | [phone] | | +--------+ + + + + [...] | | | | | radicular | [address] | [address] Phone: | | | | | pain | Phone: | [phone] | | | | | | [phone] | Fax: | | | | | | Fax: | [phone] | | | | | | [phone] | | +--------+ + + + + + Encounter Details +--------+---------+ + + + | Date | Type | Department | Care Team | Description | +--------+---------+ + + + | 07/22/ | Office | [facility] | Roger Triplett | Chronic low back | | 2014 | Visit | PHYSIATRY [address] | TMD [address] | pain (Primary Dx); | | | | [address] | [place] | Lumbar | | | | [place] | [address] | radiculopathy; S/P | | | | [address] | | lumbar fusion; | | | | [phone] | | Sacroiliitis; Morbid | | | | | | obesity due to | | | | | | excess calories | | | | | | ([facility]) | +--------+---------+ + + + [...] 8:21 AM PST Roger Triplett MD [address] [facility] [address] [place] [address] FAX: PHYSICAL MEDICINE AND REHABILITATION H&P CHIEF [...] has no apparent deficits with short or nursing home memory. She has appropriate fund of knowledge [...] region. Lumbar facet loading was negative. Stren [facility] testing showed 5/5 strength throughout the lower [...] | | | Visit | | [facility] | | | | | | [place] [address] | | | | | | [phone] | | | | | | | [...]
--- OUTSIDE RECORDS SUMMARY | ~2019-12-09 | XMS | Encounter Summary ---
Demographics + + + | Address | [address] [facility] [facility] [address] | | | [place] [address] | + + + | Home Phone [...] + + + | Author | [facility] | | | and [place] | + + + | Organization | [facility] | | [...] [place] | | | | | [address] | | + + + + + | Pratibha Hester | ECON | Unknown | + | + + + + + | Demian Powell | ECON | Unknown | + | + + + + + Care Team Providers + +------+ + | Care Javascript Programmer Name | Role | Phone | + +------+ + | Quentin Manriquez PA-C | MARCK | | + +------+ + Encounter Details +--------+ + + + + | Date | Type | Department | Care Team | Description | +--------+ + + + + | 12/05/ | Hospital | [facility] | Sascha Mir, | | | 2014 | Encounter | MED CTR LABORATORY | DO [address] [facility] | | | | | [address] [facility] | [address] | | | | | [place], [place] | [id number] | | | | | [address] | | | | | | [phone] | | | +--------+ + + + [...] | Office | | MD Michael [address] | | | | Visit | | Ed Lopes | | | | | | [place] [address] | | | | | | [phone] | | | | | | | | +--------+ + + + + documented as of this encounter Visit Diagnoses Not on filedocumented in this encounter"
--- OUTSIDE RECORDS SUMMARY | ~2019-12-09 | XMS | Encounter Summary ---
Demographics + + + | Address | [address] [address] | | | [place] [address] | + + + | Home Phone [...] [place] | | | | | [address] | | + + + + + | Pratibha Hester | ECON | Unknown | + | + + + + + | Demian Powell | ECON | Unknown | + | + + + + + Care Team Providers + +------+ + | Care Scarrer Name | Role | Phone | + [...] + + | 05/06/ | Telephone | [facility] | Sascha Mir, | Other (MRI ) | | 2014 | | NEUROSURGERY [address] | DO [address] | | | | | [address] [facility] | [address] [place], [place] | | | | | [place], [place] | [id number] | | | | | [address] | | | | | | [phone] | | | +--------+ + + + [...] 2019 | Office | | MD Michael [address] [place] [address] | | | | Visit | | Ed Lopes | | | | | | [place] [address] | | | | | | [phone] | | | | | | | | +--------+ + + + + documented as of this encounter Visit Diagnoses Not on filedocumented in this encounter"
--- OUTSIDE RECORDS SUMMARY | ~2019-12-09 | XMS | Encounter Summary ---
Demographics + + + | Address | [address] [facility] [address] | | | [place] [address] | + + + | Home Phone [...] + + + | Author | [facility] | | | and [place] | + + + | Organization | [facility] | | | [...] [place] | | | | | [address] | | + + + + + | Pratibha Hester | ECON | Unknown | + | + + + + + | Demian Powell | ECON | Unknown | + | + + + + + Care Team Providers + +------+ + | Care Transformer Shop Supervisor Name | Role | Phone | [...] + | 12/16/ | Telephone | [facility] | Sascha Mir, | Imaging Only | | 2015 | | NEUROSURGERY [address] | DO [address] | | | | | [address] | [address] [place], [place] | | | | | [place] | [address] | | | | | [address] | | | | | | [phone] | | | +--------+ + + + [...] | Office | | MD Michael [address] [place] [address] | | | | Visit | | Ed Lopes | | | | | | [place] [address] | | | | | | [phone] | | | | | | | | +--------+ + + + + documented as of this encounter Visit Diagnoses Not on filedocumented in this encounter"
--- OUTSIDE RECORDS SUMMARY | ~2019-12-09 | XMS | Encounter Summary ---
Demographics + + + | Address | [address] | | | [place] [address] | + + + | Home Phone [...] [place] | | | | | [address] | | + + + + + | Pratibha Hester | ECON | Unknown | + | + + + + + | Demian Powell | ECON | Unknown | + | + + + + + Care Team Providers + +------+ + | Care Power Transformer Assembler Name | Role | Phone | + [...] + + | 01/06/ | Telephone | [facility] | Sascha Mir, | Other | | 2014 | | NEUROSURGERY [address] | DO [address] | | | | | [address] [facility] 50 | [address] [place], [place] | | | | | [place] | [address] | | | | | [address] | | | | | | [phone] | | | +--------+ + + + [...] | Office | | MD Michael [address] [place] [address] | | | | Visit | | Ed Lopes | | | | | | [place] [address] | | | | | | [phone] | | | | | | | | +--------+ + + + + documented as of this encounter Visit Diagnoses Not on filedocumented in this encounter"
--- OUTSIDE RECORDS SUMMARY | ~2019-12-09 | XMS | Encounter Summary ---
Demographics + + + | Address | [address] | | | [place] [address] | + + + | Home Phone [...] Providers + +------+ + | Care Utility Bill Collection Clerk Name | Role | Phone | [...] | | | | | 4th floor [place], | | | | | | [place] [address] | | | | | | [phone] | | | +--------+ + + + [...] | | | | | | [place] [address] | | | | | | [phone] | | | | | | | | +--------+ + + + + | 01/10/ | Appointment | Gastroenterology | Guillermo Quach MD | | | 2019 | | | [address] | | | | | | [place] | | | | | | [place] [address] | | | | | | [phone] | | | | | | | | +--------+ + + + + documented as of this encounter Visit Diagnoses Not on filedocumented in this encounter"
--- OUTSIDE RECORDS SUMMARY | ~2019-12-09 | XMS | Encounter Summary ---
Demographics + + + | Address | [address] | | | [place] [address] | + + + | Home Phone [...] [place] | | | | | [address] | | + + + + + | Pratibha Hester | ECON | Unknown | + | + + + + + | Demian Powell | ECON | Unknown | + | + + + + + Care Team Providers + +------+ + | Care Sandblaster Supervisor Name | Role | Phone | [...] + | 01/06/ | Telephone | [facility] | Sascha Mir, | Other | | 2014 | | NEUROSURGERY [address] | DO [address] | | | | | [address] [facility] 50 | [address] [place], [place] | | | | | [place] | [address] | | | | | [address] | | | | | | [phone] | | | +--------+ + + + [...] | Office | | MD Michael [address] [place] [address] | | | | Visit | | Ed Lopes | | | | | | [place] [address] | | | | | | [phone] | | | | | | | | +--------+ + + + + documented as of this encounter Visit Diagnoses Not on filedocumented in this encounter"
--- OUTSIDE RECORDS SUMMARY | ~2019-12-09 | XMS | Encounter Summary ---
Demographics + + + | Address | [address] | | | [place] [address] | + + + | Home Phone [...] [place] | | | | | [address] | | + + + + + | Pratibha Hester | ECON | Unknown | + | + + + + + | Demian Powell | ECON | Unknown | + | + + + + + Care Team Providers + +------+ + | Care Capacity Analyst Name | Role | Phone | [...] | | | | Displacement | [place]-C [address] | [address] | | | | | of lumbar | [place] | [address] | | | | | intervertebr | WAY | [place] | | | | | al disc | [place], | [address] Phone: | | | | | without | [place] [address] | [phone] | | | | | myelopathy | Phone: | Fax: | | | | | Procedures | [phone] | [phone] | | | | | [place] OFFICE | Fax: | | | | | | CONSULTATION | [phone] | | | | | | NEW/ESTAB [...] [address] | [address] [place], [place] | (Primary Dx); Lumbar | | | | [place], [place] | [address] | stenosis; Lumbar | | | | [address] | | radicular pain; | | | | [phone] | | Midline low back | | [...] Mir DO [address] [facility], [address] [place], [place] [address] FAX: NEUROSURGERY HISTORY AND PHYSICAL EXAMINATION CHIEF [...] has no apparent deficits with short or mcfp memory. CRANIAL NERVES: II: Acuity is intact. [...] Intrinsics 5 5 Ulnar Intrinsics 5 5 Vinyl Dipper Strength 5 5 Hip Flexion 5 5 [...] | Office | | MD Michael [address] | | | | Visit | | [place] | | | | | | [place] [address] | | | | | | [phone] | | | | | | | [...]
--- OUTSIDE RECORDS SUMMARY | ~2019-12-09 | XMS | Encounter Summary ---
Demographics + + + | Address | [address] [facility] [address] [address] | | | [place] [address] | + + + | Home Phone [...] [place] | | | | | [address] | | + + + + + | Pratibha Hester | ECON | Unknown | + | + + + + + | Demian Powell | ECON | Unknown | + | + + + + + Care Team Providers + +------+ + | Care Chief Technician Name | Role | Phone | [...] | | | lumbar | [address] [place] [address] | | | | | spinal | [address] | [address] | | | | | fusion Back | [place] | AVE | | | | | pain, | [address] | [place], [place] | | | | | unspecified | Phone: | [address] | | | | | location | [phone] | Phone: | | | | | Radiculopath | Fax: | [phone] | | | | | y, | [phone] | Fax: | | | | | unspecified | | [phone] | | | | | spinal | [...] + + | 04/03/ | Telephone | [facility] | Sascha Mir, | Imaging Only | | 2014 | | NEUROSURGERY [address] | DO [address] [facility] [address] | | | | | [address] [facility] [address] | [address] [place], [place] | | | | | [place] | [address] | | | | | [address] | | | | | | [phone] | | | +--------+ + + + [...] | Office | | MD Michael [address] | | | | Visit | | [address] [facility] | | | | | | [place] [address] | | | | | | [phone] | | | | | | | [...]
--- OUTSIDE RECORDS SUMMARY | ~2019-12-09 | XMS | Encounter Summary ---
Demographics + + + | Address | [address] [facility] [address] | | | [place] [address] | + + + | Home Phone [...] Author | [facility] | | | and [place] | + + + | Organization | [facility] [...] [place] | | | | | [address] | | + + + + + | Pratibha Hester | ECON | Unknown | + | + + + + + | Demian Powell | ECON | Unknown | + | + + + + + Care Team Providers + +------+ + | Care Lot Attendant Name | Role | Phone | [...] | | | spondylolist | | [address] | | | | | hesis | | [place], | | | | | Acquired | | [place] [address] | | | | | spondylolist | | Phone: | | | | | hesis | | [phone] | | | | | Procedures | | Fax: | | | | | [place] ARTHDSIS | | [phone] | | | | | POST/POSTERO | [...] + + | 12/12/ | Hospital | [facility] | Sascha Mir, | Acquired | | 2015 | Encounter | MED CTR XRAY [address] | DO [address] | spondylolisthesis | | | | [place] | [address] | | | | | [place] [address] | [address] | | | | | [phone] | | | +--------+ + + + [...] | Office | | MD Michael [address] | | | | Visit | | Ed Lopes | | | | | | [place] [address] | | | | | | [phone] | | | | | | | [...] | | | TERI | | | [facility] | | | - IMAGING | + + + + + + + + | Performing | Address | City/State/Zipcode | Phone Number | | Organization | | | | + + + + + | [facility] [facility] | [address] | [place] | [phone] | | [facility] | | [address] | | | - IMAGING | | | | + + + + + documented in this encounter Visit Diagnoses + + | Diagnosis | + + | Acquired spondylolisthesis | + + documented in this encounter"
--- OUTSIDE RECORDS SUMMARY | ~2019-12-09 | XMS | Encounter Summary ---
Demographics + + + | Address | [address] | | | [place] [address] | + + + | Home Phone [...] [place] | | | | | [address] | | + + + + + | Pratibha Hester | ECON | Unknown | + | + + + + + | Demian Powell | ECON | Unknown | + | + + + + + Care Team Providers + +------+ + | Care Banking Manager Name | Role | Phone | + +------+ + | Quentin Manriquez PA-C | MARCK | | + +------+ + Encounter Details +--------+ + + + + | Date | Type | Department | Care Team | Description | +--------+ + + + + | 09/26/ | Hospital | [facility] | Sascha Mir, | Displacement of | | 2014 | Encounter | MED CTR XRAY [address] | DO [address] | lumbar | | | | [place] | [address] | intervertebral disc | | | | [place] [address] | [id number] | without myelopathy | | | | [phone] | | | +--------+ + + + [...] | Office | | MD Michael [address] | | | | Visit | | Ed Lawson | | | | | | [place] [address] | | | | | | [phone] | | | | | | | [...] | HISTORY:Back pain COMPARISON: MRI from [facility] dated | [facility] | | June 25, 2014 and plain [...] 09/26/2014 8:51 AMHISTORY:Back painCOMPARISON: MRI from [facility] dated | | June 25, 2014 and [...] + + | Performing | Address | City/State/[facility] | Phone Number | | Organization | | | | + + + + + | [facility] | [address] | [place] | [phone] | | [facility] | | [address] | | | - IMAGING | | | | + + + + + documented in this encounter Visit Diagnoses + + | Diagnosis | + + | Displacement of lumbar intervertebral disc without myelopathy | + + documented in this encounter"
--- OUTSIDE RECORDS SUMMARY | ~2019-12-09 | XMS | Encounter Summary ---
Demographics + + + | Address | [address] | | | [place] [address] | + + + | Home Phone [...] Author + + + | Author | [facility] | + + + | Organization | [facility] | + + + | Address | Unknown | + + + | Phone | Unavailable | + + + Support + + +---------+ + | Name | Relationship | Address | Phone | + + +---------+ + | Alisia Nina | ECON | Unknown | | + + +---------+ + Care Team Providers + +------+ + | Care Glass Curvature Gauger Name | Role | Phone | + [...] | | | | | ear | [facility], | | | | | Dizziness | Rd | 10th Floor | | | | | Procedures | [place], [place] | [place], [place] | | | | | [place] | [address] | [address] | | | | | BENIGN | Phone: | Phone: | | | | | DISEASE WO | [phone] | [phone] | | | | | [place] [address] | Fax: | Fax: | | | | | SCAN,ORBIT/S | [phone] | [phone] | | | | | CORY/POST | [...] | | | | | ear | [facility] | [facility], | | | | | Dizziness | Rd | 10th Floor | | | | | Procedures | [place], [place] | [place], [place] | | | | | [place] | [address] | [address] | | | | | BENIGN | Phone: | Phone: | | | | | DISEASE WO | [phone] | [phone] | | | | | [place] [address] | Fax: | Fax: | | | | | SCAN,ORBIT/S | [phone] | [phone] | | | | | CORY/POST | [...] | 2014 | Encounter | Services at [facility] | | | | | | [address] | | | | | | [place] | | | | | | [address] | | | | | | [place], [place] | | | | | | [address] | | | | | | [phone] | | | +--------+ + + + [...] | | | | | | [place] [address] | | | | | | [phone] | | | | | | | | +--------+ + + + + | 01/10/ | Appointment | Gastroenterology | Guillermo Quach MD | | | 2020 | | | [address] | | | | | | [place], | | | | | | [place] [address] | | | | | | [phone] | | | | | | | [...]
--- OUTSIDE RECORDS SUMMARY | ~2019-12-09 | XMS | Encounter Summary ---
Demographics + + + | Address | [address] | | | [place] [address] | + + + | Home Phone [...] [place] | | | | | [address] | | + + + + + | Pratibha Hester | ECON | Unknown | + | + + + + + | Demian Powell | ECON | Unknown | + | + + + + + Care Team Providers + +------+ + | Care Champagne Maker Name | Role | Phone | [...] | | [place] | [place] [address] | | | | | [address] | [phone] | | | | | [phone] | | | +--------+--------+ + + + [...] | Office | | MD Michael [address] [place] [address] | | | | Visit | | Ed Lopes | | | | | | [place] [address] | | | | | | [phone] | | | | | | | | +--------+ + + + + documented as of this encounter Visit Diagnoses + + | Diagnosis | + + | Nausea Nausea alone | + + documented in this encounter"
--- OUTSIDE RECORDS SUMMARY | ~2019-12-09 | XMS | Encounter Summary ---
Demographics + + + | Address | [address] | | | [place] [address] | + + + | Home Phone [...] [place] | | | | | [address] | | + + + + + | Pratibha Hester | ECON | Unknown | + | + + + + + | Demian Powell | ECON | Unknown | + | + + + + + Care Team Providers + +------+ + | Care Criminology Teacher Name | Role | Phone | [...] | | [place] | [place] [address] | | | | | [address] | [phone] | | | | | [phone] | | | +--------+--------+ + + + [...] 2019 | Office | | MD Michael [address] [place] [address] | | | | Visit | | Ed Lopes | | | | | | [place] [address] | | | | | | [phone] | | | | | | | | +--------+ + + + + documented as of this encounter Visit Diagnoses Not on filedocumented in this encounter"
--- OUTSIDE RECORDS SUMMARY | ~2019-12-09 | XMS | Encounter Summary ---
Demographics + + + | Address | [address] [facility] [address] | | | [place] [address] | + + + | Home Phone [...] + + + + + | [place] | ECON | [address] | + | | | | [place] | | | | | [address] | | + + + + + | Pratibha Hester | ECON | Unknown | + | + + + + + | Demian Powell | ECON | Unknown | + | + + + + + Care Team Providers + +------+ + | Care Wire Winder Name | Role | Phone | [...] + + | 06/09/ | Telephone | [facility] | Sascha Mir, | Other | | 2014 | | NEUROSURGERY [address] | DO [address] | | | | | [address] [facility] [address] | [address] [place], [place] | | | | | [place] | [address] | | | | | [address] | | | | | | [phone] | | | +--------+ + + + [...] | Office | | MD Michael [address] [place] [address] | | | | Visit | | Ed Lopes | | | | | | [place] [address] | | | | | | [phone] | | | | | | | | +--------+ + + + + documented as of this encounter Visit Diagnoses Not on filedocumented in this encounter"
--- OUTSIDE RECORDS SUMMARY | ~2019-12-09 | XMS | Encounter Summary ---
Demographics + + + | Address | [address] | | | [place] [address] | + + + | Home Phone [...] Team Providers + +------+ + | Care Sign Builder Name | Role | Phone | + +------+ + | Quentin Manriquez | PCP | | + +------+ + Encounter Details +--------+ + + + + | Date | Type | Department | Care Team | Description | +--------+ + + + + | 02/16/ | Abstract | [facility] | Clinic, | | | 2017 | | New Site at [facility] | Gastroenterology | | | | | Jennifer Schreiber | | | | | | Mailcode: New Site | | | | | | [facility] | | | | | | Healing, Building [address] | | | | | | [place], [place] | | | | | | [address] | | | | | | [phone] | | | +--------+ + + + [...] | | | | | | [place] [address] | | | | | | [phone] | | | | | | | | +--------+ + + + + | 01/10/ | Appointment | Gastroenterology | Guillermo Quach MD | | | 2019 | | | [address] | | | | | | [place] | | | | | | [place] [address] | | | | | | [phone] | | | | | | | | +--------+ + + + + documented as of this encounter Visit Diagnoses Not on filedocumented in this encounter"
--- OUTSIDE RECORDS SUMMARY | ~2019-12-09 | XMS | Encounter Summary ---
Demographics + + + | Address | [address] | | | [place] [address] | + + + | Home Phone | | + + + | Preferred Language | Unknown | + + + | Marital Status | Single | + + + | Buddhism Affiliation | CAT | + + + [...] Team Providers + +------+ + | Care Parole Board Member Name | Role | Phone | [...] | | [facility] [address] [place], [place] | | | | | [address] | [address] | | | | | Physician's | | | | | | Pavilion, 2nd floor | | | | | | [place], [place] | | | | | | [address] | | | | | | [phone] | | | +--------+ + + + [...] | | | | | | [place] [address] | | | | | | [phone] | | | | | | | | +--------+ + + + + | 01/10/ | Appointment | Gastroenterology | Guillermo Quach MD | | | 2019 | | | [address] | | | | | | [place] | | | | | | [place] [address] | | | | | | [phone] | | | | | | | | +--------+ + + + + documented as of this encounter Visit Diagnoses Not on filedocumented in this encounter"
--- OUTSIDE RECORDS SUMMARY | ~2019-12-09 | XMS | Encounter Summary ---
Demographics + + + | Address | [address] | | | [place] [address] | + + + | Home Phone [...] [place] | | | | | [address] | | + + + + + | Pratibha Hester | ECON | Unknown | + | + + + + + | Demian Powell | ECON | Unknown | + | + + + + + Care Team Providers + +------+ + | Care Bonderite Operator Name | Role | Phone | [...] | | | - CARDIAC | PA-C [address] | [address] | | | | | CLEARANCE | [address] | [address]OS [address] | | | | | | [place] | [place] | | | | | | [place] [address] | [place] | | | | | | Phone: | [address] Phone: | | | | | | [phone] | [phone] | | | | | | Fax: | Fax: | | | | | | [phone] | [phone] | + +--------+ + + + + [...] (Primary Dx); | | | | [address] [facility] | [place], | Essential | | | | [address] | [place] [address] | hypertension; | | | | [place], [place] | [phone] | Preoperative | | | | [address] | | cardiovascular | | | | [phone] | | examination; | | | | [...] recently on an emergency room visit at [facility] in August. See no reason why she [...] h/o an AAA. -- Echo (05/31/18 - [facility]): EF 60-65%, normal RV size, function, mild MR -- Coronary CT Calcium Score (06/12/14 - [facility]): -0-, low risk -- Exercise Cardiolite Stress Test (04/12/14 - [facility]): exercised 6:38, 7 METS, max HR 173, [...] 1995 [facility] [place] SECTION, LOW TRANSVERSE 2005 [facility] [place] CHOLECYSTECTOMY LUMBAR LAMINECTOMY N/A 12/12/2014 Procedure: [...] file Gets together: Not on file Attends faith service: Not on file Active member of [...] 324 mg by mouth daily (with breakfast). Lpixdrf-Gncrqvvnqakq-Cfxvglrnd (TRI-RAJ) 0.01-4-0.05 % CREA APPLY TO CLEAN [...] | Office | | MD Michael [address] [place] [address] | | | | Visit | | Ed Lawson | | | | | | [place] [address] | | | | | | [phone] | | | | | | | [...] | | | | | Rudy A[place] ([id number]) on | | | | | | [...]
--- OUTSIDE RECORDS SUMMARY | ~2019-12-09 | XMS | Encounter Summary ---
Demographics + + + | Address | [address] | | | [place] [address] | + + + | Home Phone [...] [place] | | | | | [address] | | + + + + + | Pratibha Hester | ECON | Unknown | + | + + + + + | Demian Powell | ECON | Unknown | + | + + + + + Care Team Providers + +------+ + | Care Pearl Restorer Name | Role | Phone | [...] + | 08/13/ | Telephone | [facility] | Sascha Mir, | Other | | 2015 | | NEUROSURGERY [address] | DO [address] | | | | | [address] | [address] [place], [place] | | | | | [place] | [address] | | | | | [address] | | | | | | [phone] | | | +--------+ + + + [...] 2019 | Office | | MD Michael [address] [place] [address] | | | | Visit | | Ed Lopes | | | | | | [place] [address] | | | | | | [phone] | | | | | | | | +--------+ + + + + documented as of this encounter Visit Diagnoses Not on filedocumented in this encounter"
--- OUTSIDE RECORDS SUMMARY | ~2019-12-09 | XMS | Encounter Summary ---
Demographics + + + | Address | [address] [facility] [address] | | | [place] [address] | + + + | Home Phone [...] + + | Author | [facility] | | | and [place] | + + + | Organization | [facility] | | [...] [place] | | | | | [address] | | + + + + + | Pratibha Hester | ECON | Unknown | + | + + + + + | Demian Powell | ECON | Unknown | + | + + + + + Care Team Providers + +------+ + | Care Production Coordinator Name | Role | Phone | [...] | | | n | spine | [address] | [place] | | | | | Spondylolist | [place], | [place], [place] | | | | | hesis [place] | [place] [address] | [address] Phone: | | | | | lumbar | Phone: | [phone] | | | | | region | [phone] | Fax: | | | | | Degenerative | [phone] Fax: | [phone] | | | | | disc | | | | | | | disease, | [phone] | | | | | | lumbar [...] | | | | | | | ([facility]) | | | | | | | Sacroiliitis | | | | | | | ([facility]) | | | | | | | Trochanteric | | | | | | | bursitis | | | | | | | Diabetes | | | | | | | mellitus | | | | | | | ([facility]) | | | | | [...] | | | | | spine | [address] | | | | | | Spondylolist | [place], | | | | | | hesis of | [place] [address] | | | | | | lumbar | Phone: | | | | | | region | [phone] | | | | | | Degenerative | [phone] Fax: | | | | | | disc | | | | | | | disease, | [phone] | | | | | | lumbar [...] + + | 10/27/ | Office | [facility] | Denilson Jorge | 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 This is called spondylolisthes is. 9992-6308 [place] [address]. All rights reserve d. This information is not intended as a substitute for professional medical care. Always fo llow your healthcare professional's instructions. documented in this encounter Progress Notes Denilson Jorge MD - 10/27/2012 11:58 AM PDTFormatting of this note might be differen t from the original. Denilson Jorge MD [address] [place] [address], [address] [place] [address] FAX: NEUROSURGERY FOLLOW-UP CHIEF COMPLAINT: [...] has no apparent deficits with short or bed bug exterminator memory. CRANIAL NERVES: Fundoscopic Exam: The optic [...] Intrinsics 5 5 Ulnar Intrinsics 5 5 Podopediatrician Strength 5 5 Hip Flexion 5 5 [...] 2019 | Office | | MD Michael [address] [place] [address] | | | | Visit | | Ed [facility] | | | | | | [place] [address] | | | | | | [phone] | | | | | | | [...] obesity | | | | | | ([facility]) Sacroiliitis | | | | | | ([facility]) Trochanteric | | | | | | bursitis Diabetes | | | | | | mellitus ([facility]) | | | | | [...] obesity | | | | | | ([facility]) Sacroiliitis | | | | | | ([facility]) Trochanteric | | | | | | bursitis Diabetes | | | | | | mellitus ([facility]) | | | | | [...] Morbid obesity | + + | Sacroiliitis ([facility]) Sacroiliitis, not elsewhere classified | + + | Trochanteric bursitis Enthesopathy of hip region | + + | Diabetes mellitus ([facility]) Type II or unspecified type [...]
--- OUTSIDE RECORDS SUMMARY | ~2019-12-09 | XMS | Encounter Summary ---
Demographics + + + | Address | [address] [address] | | | [place] [address] | + + + | Home Phone [...] [place] | | | | | [address] | | + + + + + | Pratibha Hester | ECON | Unknown | + | + + + + + | Demian Powell | ECON | Unknown | + | + + + + + Care Team Providers + +------+ + | Care Scalehouse Attendant Name | Role | Phone | + +------+ + | Quentin Manriquez PA-C | MARCK | | + +------+ + Encounter Details +--------+ + + + + | Date | Type | Department | Care Team | Description | +--------+ + + + + | 12/05/ | Hospital | [facility] | Sascha Mir, | Bilateral lumbar | | 2015 | Encounter | MED CTR XRAY [address] | DO [address] | radiculopathy; HIP | | | | [address] | [address] [place], [place] | PAIN, LEFT, CHRONIC; | | | | [place] [address] | [address] | Spondylolisthesis | | | | [phone] | | of lumbar region | | [...] | Office | | MD Michael [address] [place] [address] | | | | Visit | | Ed Lopes | | | | | | [place] [address] | | | | | | [phone] | | | | | | | [...] exam . COMPARISON: None available. FINDINGS: | [facility] | | Heart size and mediastinal contours are within normal limits. The | [facility] | | lungs are [...] [address] | [place] | [phone] | | [facility] | | [address] | | | - IMAGING | | [...]
--- OUTSIDE RECORDS SUMMARY | ~2019-12-09 | XMS | Encounter Summary ---
Demographics + + + | Address | [address] | | | [place] [address] | + + + | Home Phone [...] + +------+ + | Care Manager Of Procurement Name | Role | Phone | + [...] | | | | | [place], | | | | | | [place] [address] | | | | | | [phone] | | | | | | | | +--------+ + + + + | 01/10/ | Appointment | Gastroenterology | Guillermo Quach MD | | | 2019 | | | [address] | | | | | | [place], | | | | | | [place] [address] | | | | | | [phone] | | | | | | | | +--------+ + + + + documented as of this encounter Visit Diagnoses Not on filedocumented in this encounter"
--- OUTSIDE RECORDS SUMMARY | ~2019-12-09 | XMS | Encounter Summary ---
Demographics + + + | Address | [address] | | | [place] [address] | + + + | Home Phone [...] [place] | | | | | [address] | | + + + + + | Pratibha Hester | ECON | Unknown | + | + + + + + | Demian Powell | ECON | Unknown | + | + + + + + Care Team Providers + +------+ + | Care Door Fitter Name | Role | Phone | + [...] | Sascha Armendariz DO | [address] | | | | | Spondylolist | [address] | [place], | | | | | hesis of | [address] | [place] | | | | | lumbar | [place] | [address] | | | | | region S/P | [address] | Phone: | | | | | lumbar | Phone: | [phone] | | | | | fusion | [phone] | Fax: | | | | | Procedures | Fax: | [phone] | | | | | MRI Lumbar | [phone] | | | | | | Spine [...] | Sascha Armendariz DO | [address] | | | | | radicular | [address] | [place], | | | | | pain | [address] | [place] | | | | | Procedures | [place] | [address] | | | | | MRI Cervical | [address] | Phone: | | | | | Spine wo | Phone: | [phone] | | | | | Contrast | [phone] | Fax: | | | | | | Fax: | [phone] | | | | | | [phone] | | +--------+--------+ + + + + Reason for Visit + + + | Reason | Comments | + + + | Follow-up | 3-month post-op | + + + Encounter Details +--------+---------+ + + + | Date | Type | Department | Care Team | Description | +--------+---------+ + + + | 03/17/ | Office | [facility] | Sascha Mir, | Spondylolisthesis of | | 2015 | Visit | NEUROSURGERY [address] | DO [address] | lumbar region | | | | [address] | [address] [place], [place] | (Primary Dx); S/P | | | | [place], [place] | [phone] | lumbar fusion; | | | | [address] | | Cervical radicular | | | | [phone] | | pain | +--------+---------+ + + [...] [facility] [address] [place] [address] FAX: NEUROSURGERY FOLLOW-UP CHIEF COMPLAINT: Chief Complaint [...] | Office | | MD Michael [address] [place] [address] | | | | Visit | | Ed Lopes | | | | | | [place] [address] | | | | | | [phone] | | | | | | | [...]
--- OUTSIDE RECORDS SUMMARY | ~2019-12-09 | XMS | Encounter Summary ---
Demographics + + + | Address | [address] | | | [place] [address] | + + + | Home Phone [...] Team Providers + +------+ + | Care Trustee Of Estate Name | Role | Phone | + [...] | | | media, not | | [place], [place] | | | | | specified as | | [address] | | | | | acute or | | Phone: | | | | | chronic | | [phone] | | | | | Conductive | | Fax: | | | | | hearing | | [phone] | | | | | loss, | [...] | | | | [address] | [place], [place] | Dx); Conductive | | | | Physician's | [address] | hearing loss in | | | | Pavilion, 2nd floor | [phone] | right ear; Dizziness | | | | [place], [place] | | | | | | [address] | | | | | | [phone] | | | +--------+---------+ + + + [...] me after testing. Windy Rodriguez MD PhD Route [employer] Otology, Neurotology & Skull Base Surgery documented [...] [address] | | | | | | [place], | | | | | | [place] [address] | | | | | | [phone] | | | | | | | | +--------+ + + + + | 01/10/ | Appointment | Gastroenterology | Guillermo Quach MD | | | 2020 | | | [address] | | | | | | [place], | | | | | | [place] [address] | | | | | | [phone] | | | | | | | | +--------+ + + + + documented as of this encounter Procedures + +--------+ + + + | Procedure Name | Priori | Date/Time | Associated Diagnosis | Comments | | | ty | | | | + +--------+ + + + | DC EAR MICROSCOPY | Routin | 12/05/2014 | [...]
--- OUTSIDE RECORDS SUMMARY | ~2019-12-09 | XMS | Encounter Summary ---
Demographics + + + | Address | [address] | | | [place] [address] | + + + | Home Phone | | + + + | Preferred Language | Unknown | + + + | Marital Status | Single | + + + | Roman Catholic Affiliation | 1041 | + + [...] [place] | | | | | [address] | | + + + + + | Pratibha Hester | ECON | Unknown | + | + + + + + | Demian Powell | ECON | Unknown | + | + + + + + Care Team Providers + +------+ + | Care Stationary Plant Operators Name | Role | Phone | + +------+ + | Quentin Manriquez PA-C | MARCK | | + +------+ + Encounter Details +--------+ + + + + | Date | Type | Department | Care Team | Description | +--------+ + + + + | 12/05/ | Preadmit | [facility] | Sascha Mir, | Bilateral lumbar | | 2015 | Visit | MED CTR [facility] | DO [address] | radiculopathy; HIP | | | | CLINIC [address] | [address] [place], [place] | PAIN, LEFT, CHRONIC; | | | | [place], [place] | [address] | Spondylolisthesis | | | | [address] | | of lumbar region | | | | [phone] | | L5-S1; Pars defect | | [...] | Office | | MD Michael [address] | | | | Visit | | Ed Lopes | | | | | | [place] [address] | | | | | | [phone] | | | | | | | [...] | | Anticoagulation Range: | | STMeghan TERI | | | | 2.0 - [...] + | [facility] | [address] | [place] | [phone] | | [facility] | | [address] | | | - LABORATORY | | [...] + | [facility] | [address] | [place] | [phone] | | [facility] | | [address] | | | - LABORATORY | | [...] 11 | 7 - 18 mg/dL | [facility] | | | | | [...] mL/min/1.73m2 | [facility] | | | [place] | RATE,ESTIMATED | | MEDICAL | | | | mL/min/1.53w3Seex than | | CENTER - | | [...] [address] | [place] | [phone] | | [facility] | | [address] | | | - LABORATORY | | [...] ST. | [address] | [place] | [phone] | | [facility] | | [address] | | | - LABORATORY | | [...]
--- OUTSIDE RECORDS SUMMARY | ~2019-12-09 | XMS | Encounter Summary ---
Demographics + + + | Address | [address] | | | [place] [address] | + + + | Home Phone [...] [place] | | | | | [address] | | + + + + + | Pratibha Hester | ECON | Unknown | + | + + + + + | Demian Powell | ECON | Unknown | + | + + + + + Care Team Providers + +------+ + | Care Cardiac Nurse Specialist Name | Role | Phone | [...] + + | 12/09/ | Telephone | [facility] | Sascha Mir, | Other (Fax) | | 2014 | | NEUROSURGERY [address] | DO [address] | | | | | [address] [facility] | [address] [place], [place] | | | | | [place], [place] | [id number] | | | | | [address] | | | | | | [phone] | | | +--------+ + + + [...] 2019 | Office | | MD Michael [address] [place] [address] | | | | Visit | | Ed Lopes | | | | | | [place] [address] | | | | | | [phone] | | | | | | | | +--------+ + + + + documented as of this encounter Visit Diagnoses Not on filedocumented in this encounter"
--- OUTSIDE RECORDS SUMMARY | ~2019-12-09 | XMS | Encounter Summary ---
Demographics + + + | Address | [address] | | | [place] [address] | + + + | Home Phone [...] [place] | | | | | [address] | | + + + + + | Pratibha Hester | ECON | Unknown | + | + + + + + | Demian Powell | ECON | Unknown | + | + + + + + Care Team Providers + +------+ + | Care Pulling Unit Operator Name | Role | Phone | + +------+ + PCP | Unavailable | + +------+ + Encounter Details +--------+ + + + + | Date | Type | Department | Care Team | Description | +--------+ + + + + | 12/31/ | Hospital | [facility] | | | | 2009 | Encounter | MED CTR XRAY [address] | | | | | | Ed [place] | | | | | | [place] [address] | | | | | | [phone] | | | +--------+ + + + [...] | Office | | MD Michael [address] [place] [address] | | | | Visit | | Ed Lopes | | | | | | [place] [address] | | | | | | [phone] | | | | | | | | +--------+ + + + + documented as of this encounter Visit Diagnoses Not on filedocumented in this encounter"
--- OUTSIDE RECORDS SUMMARY | ~2019-12-09 | XMS | Encounter Summary ---
Demographics + + + | Address | [address] | | | [place] [address] | + + + | Home Phone [...] [place] | | | | | [address] | | + + + + + | Pratibha Hester | ECON | Unknown | + | + + + + + | Demian Powell | ECON | Unknown | + | + + + + + Care Team Providers + +------+ + | Care Underwriting Internship Name | Role | Phone | + [...] [address] | [address] [place] | her that I mailed | | | | [place] | [address] | her prescriptions | | | | [address] | | certified mail | | | | [phone] | | today.) | +--------+ + + [...] 2019 | Office | | MD Michael [address] [place] [address] | | | | Visit | | Ed Lopes | | | | | | [place] [address] | | | | | | [phone] | | | | | | | | +--------+ + + + + documented as of this encounter Visit Diagnoses Not on filedocumented in this encounter"
--- OUTSIDE RECORDS SUMMARY | ~2019-12-09 | XMS | Encounter Summary ---
Demographics + + + | Address | [address] | | | [place] [address] | + + + | Home Phone [...] Providers + +------+ + | Care Director Sales Name | Role | Phone | [...] | | ([facility] [address] | [facility] | | | | | Jennifer Schreiber | [place], [place] | | | | | Mailcode: [place] | [address] | | | | | [facility] and | [phone] | | | | | [facility] | | | | | | [place], [place] | | | | | | [address] | | | | | | [phone] | | | +--------+ + + + [...] | | | | | | [place] [address] | | | | | | [phone] | | | | | | | | +--------+ + + + + | 01/10/ | Appointment | Gastroenterology | Guillermo Quach MD | | | 2019 | | | [address] | | | | | | [place] | | | | | | [place] [address] | | | | | | [phone] | | | | | | | [...]
--- OUTSIDE RECORDS SUMMARY | ~2019-12-09 | XMS | Encounter Summary ---
Demographics + + + | Address | [address] | | | [place] [address] | + + + | Home Phone [...] [place] | | | | | [address] | | + + + + + | Pratibha Hester | ECON | Unknown | + | + + + + + | Demian Powell | ECON | Unknown | + | + + + + + Care Team Providers + +------+ + | Care Kennel Keeper Name | Role | Phone | + +------+ + | Quentin Manriquez PA-C | MARCK | | + +------+ + Encounter Details +--------+ + + + + | Date | Type | Department | Care Team | Description | +--------+ + + + + | 06/04/ | Hospital | [facility] | Sascha Mir, | Cervical radicular | | 2015 | Encounter | MED CTR XRAY [address] | DO [address] | pain | | | | [place] | [address] | | | | | [place] [address] | [id number] | | | | | [phone] | | | +--------+ + + + [...] | Office | | MD Michael [address] | | | | Visit | | Ed Lopes | | | | | | [place] [address] | | | | | | [phone] | | | | | | | [...] [address] | [place] | [phone] | | [facility] | | [address] | | | - IMAGING | | | | + + + + + documented in this encounter Visit Diagnoses + + | Diagnosis | + + | Cervical radicular pain Brachial neuritis or radiculitis nos | + + documented in this encounter"
--- OUTSIDE RECORDS SUMMARY | ~2019-12-09 | XMS | Encounter Summary ---
Demographics + + + | Address | [address] | | | [place] [address] | + + + | Home Phone [...] [place] | | | | | [address] | | + + + + + | Pratibha Hester | ECON | Unknown | + | + + + + + | Demian Powell | ECON | Unknown | + | + + + + + Care Team Providers + +------+ + | Care Creative Services Coordinator Name | Role | Phone | + +------+ + | Quentin Manriquez PA-C | MARCK | | + +------+ + Encounter Details +--------+ + + + + | Date | Type | Department | Care Team | Description | +--------+ + + + + | 12/05/ | Hospital | [facility] | Sascha Mir, | | | 2014 | Encounter | MED CTR LABORATORY | DO [address] [facility] | | | | | [address] [facility] | [address] | | | | | [place], [place] | [id number] | | | | | [address] | | | | | | [phone] | | | +--------+ + + + [...] | Office | | MD Michael [address] [place] [address] | | | | Visit | | Ed [address]opes | | | | | | [place] [address] | | | | | | [phone] | | | | | | | | +--------+ + + + + documented as of this encounter Visit Diagnoses Not on filedocumented in this encounter"
--- OUTSIDE RECORDS SUMMARY | ~2019-12-09 | XMS | Encounter Summary ---
Demographics + + + | Address | [address] | | | [place] [address] | + + + | Home Phone [...] Team Providers + +------+ + | Care Indian Trader Name | Role | Phone | + [...] | | | | | Procedures | [place], | [facility] | | | | | PHYSICAL | [place] | for Health | | | | | THERAPY | [address] | and Healing, | | | | | REFERRAL | Phone: | [facility], | | | | | | [phone] | [address] Floor | | | | | | Fax: | [place], [place] | | | | | | [phone] | [address] | | | | | | | Phone: | | | | | | | [phone] | | | | | | | Fax: | | | | | | | [phone] | +--------+--------+ + + + + Encounter Details +--------+ + + + + | Date | Type | Department | Care Team | Description | +--------+ + + + + | 05/03/ | [employer] | [facility] | Jen Coronel, | Morbid obesity (HCC) | | 2019 | | [facility] [address] | AGACNP [address] | (Primary Dx) | | | | [address] | Ave [place], [place] | | | | | Mailcode: [place] | [address] | | | | | for Health and | | | | | | [facility] | | | | | | [place], [place] | | | | | | [address] | | | | | | | [...] | | | | | | [place] [address] | | | | | | [phone] | | | | | | | | +--------+ + + + + | 01/10/ | Appointment | Gastroenterology | Guillermo Quach MD | | | 2019 | | | [address] | | | | | | [place] | | | | | | [place] [address] | | | | | | [phone] | | | | | | | | +--------+ + + + + documented as of this encounter Visit Diagnoses + + | Diagnosis | + + | Morbid obesity (HCC) - Primary Morbid obesity | + + documented in this encounter"
--- OUTSIDE RECORDS SUMMARY | ~2019-12-09 | XMS | Encounter Summary ---
Demographics + + + | Address | [address] | | | [place] [address] | + + + | Home Phone [...] Author | [facility] | | | and [place] | + + + | Organization | [facility] | | [...] [place] | | | | | [address] | | + + + + + | Pratibha Hester | ECON | Unknown | + | + + + + + | Demian Powell | ECON | Unknown | + | + + + + + Care Team Providers + +------+ + | Care Draw Fire Operator Name | Role | Phone | [...] + + | 05/19/ | Telephone | [facility] | Sascha Mir, | Other | | 2014 | | NEUROSURGERY [address] | DO [address] | | | | | [address] [facility] 50 | [address] [place], [place] | | | | | [place], [place] | [address] | | | | | [address] | | | | | | [phone] | | | +--------+ + + + [...] 2019 | Office | | MD Michael [address] [place] [address] | | | | Visit | | Ed Lopes | | | | | | [place] [address] | | | | | | [phone] | | | | | | | | +--------+ + + + + documented as of this encounter Visit Diagnoses Not on filedocumented in this encounter"
--- OUTSIDE RECORDS SUMMARY | ~2019-12-09 | XMS | Encounter Summary ---
Demographics + + + | Address | [address] | | | [place] [address] | + + + | Home Phone [...] [place] | | | | | [address] | | + + + + + | Pratibha Hester | ECON | Unknown | + | + + + + + | Demian Powell | ECON | Unknown | + | + + + + + Care Team Providers + +------+ + | Care Microwave Radio Technician Name | Role | Phone | [...] + + | 06/23/ | Telephone | [facility] | Sascha Mir, | Other | | 2014 | | NEUROSURGERY [address] | DO [address] | | | | | [address] | [address] [place], [place] | | | | | [place] | [address] | | | | | [address] | | | | | | [phone] | | | +--------+ + + + [...] 2019 | Office | | MD Michael [address] [place] [address] | | | | Visit | | Ed Lopes | | | | | | [place] [address] | | | | | | [phone] | | | | | | | | +--------+ + + + + documented as of this encounter Visit Diagnoses Not on filedocumented in this encounter"
--- OUTSIDE RECORDS SUMMARY | ~2019-12-09 | XMS | Encounter Summary ---
Demographics + + + | Address | [address] | | | [place] [address] | + + + | Home Phone [...] | Author | [facility] | | | and [place] | + + + | Organization | [facility] | | [...] [place] | | | | | [address] | | + + + + + | Pratibha Hester | ECON | Unknown | + | + + + + + | Demian Powell | ECON | Unknown | + | + + + + + Care Team Providers + +------+ + | Care Bioinformatics Support Specialist Name | Role | Phone [...] + + | 12/23/ | Telephone | [facility] | Sascha Mir, | Other (Medication | | 2015 | | NE[address]UR[address]ERY [address] | DO [address] | request) | | | | [address] [facility] | [address] [place], [place] | | | | | [place] | [id number] | | | | | [address] | | | | | | [phone] | | | +--------+ + + + [...] | Office | | MD Michael [address] | | | | Visit | | Ed Lopes | | | | | | [place] [address] | | | | | | [phone] | | | | | | | | +--------+ + + + + documented as of this encounter Visit Diagnoses Not on filedocumented in this encounter"
--- OUTSIDE RECORDS SUMMARY | ~2019-12-09 | XMS | Encounter Summary ---
Demographics + + + | Address | [address] | | | [place] [address] | + + + | Home Phone [...] [place] | | | | | [address] | | + + + + + | Pratibha Hester | ECON | Unknown | + | + + + + + | Demian Powell | ECON | Unknown | + | + + + + + Care Team Providers + +------+ + | Care Vmware Systems Administrator Name | Role | Phone | + +------+ + PCP | Unavailable | + +------+ + Encounter Details +--------+ + + + + | Date | Type | Department | Care Team | Description | +--------+ + + + + | 12/31/ | Hospital | [facility] | | | | 2009 | Encounter | MED CTR XRAY [address] | | | | | | [address] [place] | | | | | | [place] [address] | | | | | | [phone] | | | +--------+ + + + [...] 2019 | Office | | MD Michael [address] [place] [address] | | | | Visit | | Ed [address] | | | | | | [place] [address] | | | | | | [phone] | | | | | | | | +--------+ + + + + documented as of this encounter Visit Diagnoses Not on filedocumented in this encounter"
--- OUTSIDE RECORDS SUMMARY | ~2019-12-09 | XMS | Encounter Summary ---
Demographics + + + | Address | [address] | | | [place] [address] | + + + | Home Phone [...] [place] | | | | | [address] | | + + + + + | Pratibha Hester | ECON | Unknown | + | + + + + + | Demian Powell | ECON | Unknown | + | + + + + + Care Team Providers + +------+ + | Care Aircraft Pilot Name | Role | Phone | + +------+ + | Quentin Manriquez PA-C | MARCK | | + +------+ + Encounter Details +--------+ + + + + | Date | Type | Department | Care Team | Description | +--------+ + + + + | 01/15/ | Hospital | [facility] | Sascha Mir, | Status post lumbar | | 2015 | Encounter | MED CTR XRAY [address] | DO [address] | spinal fusion | | | | [place] | [address] | | | | | [place] [address] | [id number] | | | | | [phone] | | | +--------+ + + + [...] | Office | | MD Michael [address] | | | | Visit | | Ed Lopes | | | | | | [place] [address] | | | | | | [phone] | | | | | | | [...] RADIOGRAPHS DECEMBER 13 AND SEPTEMBER 26 | [facility] | | FINDINGS: Five non rib-bearing, lumbar [...] + | [facility] | [address] | [place] | [phone] | | [facility] | | [address] | | | - IMAGING | | | | + + + + + documented in this encounter Visit Diagnoses + + | Diagnosis | + + | Status post lumbar spinal fusion Arthrodesis status | + + documented in this encounter"
--- OUTSIDE RECORDS SUMMARY | ~2019-12-09 | XMS | Encounter Summary ---
Demographics + + + | Address | [address] | | | [place] [address] | + + + | Home Phone [...] [place] | | | | | [address] | | + + + + + | Pratibha Hester | ECON | Unknown | + | + + + + + | Demian Powell | ECON | Unknown | + | + + + + + Care Team Providers + +------+ + | Care Property Utilization Manager Name | Role | Phone | + +------+ + | Quentin Manriquez PA-C | MARCK | | + +------+ + Encounter Details +--------+ + + + + | Date | Type | Department | Care Team | Description | +--------+ + + + + | 06/04/ | Hospital | [facility] | Sascha Mir, | Spondylolisthesis, | | 2014 | Encounter | MED CTR XRAY [address] | DO [address] | lumbar region; S/P | | | | [place] | [address] | lumbar fusion; | | | | [place] [address] | [id number] | Lumbar radicular | | | | [phone] | | pain | +--------+ + + [...] | Office | | MD Michael [address] | | | | Visit | | Ed [address] | | | | | | [place] [address] | | | | | | [phone] | | | | | | | [...] [address] | [place] | [phone] | | [facility] | | [address] | | | - IMAGING | | [...]
--- OUTSIDE RECORDS SUMMARY | ~2019-12-09 | XMS | Encounter Summary ---
Demographics + + + | Address | [address] | | | [place] [address] | + + + | Home Phone [...] [place] | | | | | [address] | | + + + + + | Pratibha Hester | ECON | Unknown | + | + + + + + | Demian Powell | ECON | Unknown | + | + + + + + Care Team Providers + +------+ + | Care Push Connector Assembler Name | Role | Phone | [...] [place] | | | | | [address] | [address] | | | | | [phone] | | | +--------+ + + + [...] | Office | | MD Michael [address] | | | | Visit | | Ed Lopes | | | | | | [place] [address] | | | | | | [phone] | | | | | | | | +--------+ + + + + documented as of this encounter Visit Diagnoses Not on filedocumented in this encounter"
--- OUTSIDE RECORDS SUMMARY | ~2019-12-09 | XMS | Encounter Summary ---
Demographics + + + | Address | [address] | | | [place] [address] | + + + | Home Phone [...] [place] | | | | | [address] | | + + + + + | Pratibha Hester | ECON | Unknown | + | + + + + + | Demian Powell | ECON | Unknown | + | + + + + + Care Team Providers + +------+ + | Care Controls Operator Molded Goods Name | Role | Phone | + [...] NEUROSURGERY [address] | F, [address] | cancellation due to | | | | [address] | [address] [place] | insurance ) | | | | [place] | [address] | | | | | [address] | [phone] | | | | | [phone] | | | +--------+ + + + [...] 2019 | Office | | MD Michael [address] [place] [address] | | | | Visit | | Ed [facility] | | | | | | [place] [address] | | | | | | [phone] | | | | | | | | +--------+ + + + + documented as of this encounter Visit Diagnoses Not on filedocumented in this encounter"
--- OUTSIDE RECORDS SUMMARY | ~2019-12-09 | XMS | Encounter Summary ---
Demographics + + + | Address | [address] | | | [place] [address] | + + + | Home Phone [...] [place] | | | | | [address] | | + + + + + | Pratibha Hester | ECON | Unknown | + | + + + + + | Demian Powell | ECON | Unknown | + | + + + + + Care Team Providers + +------+ + | Care Sock Turner Name | Role | Phone | [...] + | 06/09/ | Telephone | [facility] [place] | Sascha Mir, | Other | | 2014 | | NEUROSURGERY [address] | DO [address] | | | | | [facility] | [address] [place], [place] | | | | | [place] | [address] | | | | | [address] | | | | | | [phone] | | | +--------+ + + + [...] | Office | | MD Michael [address] [place] [address] | | | | Visit | | Ed [facility]opes | | | | | | [place] [address] | | | | | | [phone] | | | | | | | | +--------+ + + + + documented as of this encounter Visit Diagnoses Not on filedocumented in this encounter"
--- OUTSIDE RECORDS SUMMARY | ~2019-12-09 | XMS | Encounter Summary ---
Demographics + + + | Address | [address] [facility] [address] | | | [place] [address] | + + + | Home Phone [...] [place] | | | | | [address] | | + + + + + | Pratibha Hester | ECON | Unknown | + | + + + + + | Demian Powell | ECON | Unknown | + | + + + + + Care Team Providers + +------+ + | Care Crater And Packer Name | Role | Phone | [...] [address] | [address] [place], [place] | (Primary Dx); HIP | | | | [place], [place] | [address] | PAIN, LEFT, CHRONIC; | | | | [address] | | Spondylolisthesis | | | | [phone] | | of lumbar region | | [...] Office | | MD Michael [address] | | | | Visit | | Ed Lopes | | | | | | [place] [address] | | | | | | [phone] | | | | | | | [...] exam . COMPARISON: None available. FINDINGS: | [facility] | | Heart size and mediastinal contours are within normal limits. The | [facility] | | lungs are clear, [...] + | [facility] | [address] | [place] | [phone] | | [facility] | | [address] | | | - IMAGING | | [...] [address] | [place] | [phone] | | [facility] | | [address] | | | - LABORATORY | | [...] + | [facility] | [address] | [place] | [phone] | | [facility] | | [address] | | | - LABORATORY | | [...] mL/min/1.73m2 | [facility] | | | [place] | RATE,ESTIMATED | | MEDICAL | | | | mL/min/1.55i3Itws than | | CENTER - | | [...] [address] | [place] | [phone] | | [facility] | | [address] | | | - LABORATORY | | [...] [address] | [place] | [phone] | | [facility] | | [address] | | | - LABORATORY | | [...]
--- OUTSIDE RECORDS SUMMARY | ~2019-12-09 | XMS | Encounter Summary ---
Demographics + + + | Address | [address] [facility] [address] | | | [place] [address] | + + + | Home Phone [...] [place] | | | | | [address] | | + + + + + | Pratibha Hester | ECON | Unknown | + | + + + + + | Demian Powell | ECON | Unknown | + | + + + + + Care Team Providers + +------+ + | Care Kiln Labourer Name | Role | Phone | + +------+ + | Quentin Manriquez PA-C | MARCK | | + +------+ + Encounter Details +--------+ + + + + | Date | Type | Department | Care Team | Description | +--------+ + + + + | 12/05/ | Preadmit | [facility] | Sascha Mir, | Bilateral lumbar | | 2015 | Visit | MED CTR [facility] | DO [address] | radiculopathy; HIP | | | | CLINIC [address] | [address] [place], [place] | PAIN, LEFT, CHRONIC; | | | | [place], [place] | [address] | Spondylolisthesis | | | | [address] | | of lumbar region | | | | [phone] | | L5-S1; Pars defect | | [...] | Office | | MD Michael [address] | | | | Visit | | Ed Lopes | | | | | | [place] [address] | | | | | | [phone] | | | | | | | [...] [address] | [place] | [phone] | | [facility] | | [address] | | | - LABORATORY | | [...] + | [facility] | [address] | [place] | [phone] | | [facility] | | [address] | | | - LABORATORY | | [...] mL/min/1.73m2 | [facility] | | | [facility] | RATE,ESTIMATED | | MEDICAL | | | | mL/min/1.72b7Jhtr than | | CENTER - | | [...] [address] | [place] | [phone] | | [facility] | | [address] | | | - LABORATORY | | [...] ST. | [address] | [place] | [phone] | | [facility] | | [address] | | | - LABORATORY | | [...]
--- OUTSIDE RECORDS SUMMARY | ~2019-12-09 | XMS | Encounter Summary ---
Demographics + + + | Address | [address] [facility] [address] | | | [place] [address] | + + + | Home Phone [...] [place] | | | | | [address] | | + + + + + | Pratibha Hester | ECON | Unknown | + | + + + + + | Demian Powell | ECON | Unknown | + | + + + + + Care Team Providers + +------+ + | Care Transfer Pumper Name | Role | Phone | + [...] + | 10/03/ | Telephone | [facility] | Denilson Jorge | Other (Referral to | | 2012 | | [address] | MD Denice [address] | office-Auth #) | | | | [address] | [address] [place] | | | | | [place] | [address] | | | | | [address] | [phone] | | | | [phone] | | | +--------+ + + + [...] | Office | | MD Michael [address] | | | | Visit | | Ed Lopes | | | | | | [place] [address] | | | | | | [phone] | | | | | | | | +--------+ + + + + documented as of this encounter Visit Diagnoses Not on filedocumented in this encounter"
--- OUTSIDE RECORDS SUMMARY | ~2019-12-09 | XMS | Encounter Summary ---
Demographics + + + | Address | [address] | | | [place] [address] | + + + | Home Phone [...] Providers + +------+ + | Care Welding Robot Operator Name | Role | Phone | + +------+ + | Gracie Lewis PA-C | PCP | | + +------+ + Encounter Details +--------+ + + + + | Date | Type | Department | Care Team | Description | +--------+ + + + + | 04/24/ | Abstract | [facility] | Clinic, Surgery | | | 2019 | | [facility] [address] | | | | | | Jennifer Schreiber | | | | | | Mailcode: [facility] | | | | | [facility] | | | | | | Healing, [address] | | | | | | [place], [place] | | | | | | [address] | | | | | | [phone] | | | +--------+ + + + [...] | | | | | | [place] [address] | | | | | | [phone] | | | | | | | | +--------+ + + + + | 01/10/ | Appointment | Gastroenterology | Guillermo Quach MD | | | 2019 | | | [address] | | | | | | [place] | | | | | | [place] [address] | | | | | | [phone] | | | | | | | | +--------+ + + + + documented as of this encounter Visit Diagnoses Not on filedocumented in this encounter"
--- OUTSIDE RECORDS SUMMARY | ~2019-12-09 | XMS | Encounter Summary ---
Demographics + + + | Address | [address] | | | [place] [address] | + + + | Home Phone [...] [place] | | | | | [address] | | + + + + + | Pratibha Hester | ECON | Unknown | + | + + + + + | Demian Powell | ECON | Unknown | + | + + + + + Care Team Providers + +------+ + | Care News Librarian Name | Role | Phone | + +------+ + | Derick Mclaughlin PA-C | PCP | | + +------+ + Encounter Details +--------+ + + + + | Date | Type | Department | Care Team | Description | +--------+ + + + + | 05/18/ | Abstract | [facility] | Denilson Jorge | Spondylolisthesis of | | 2011 | | NEUROSURGERY [address] | FMD [address] | lumbar region | | | | [address] | St [place] | L5-S1; Pars defect | | | | [place], [place] | [address] | of lumbar spine | | | | [address] | [phone] | L5-S1; Degenerative | | | | [phone] | | disc disease, lumbar | | | | | | L4-5; Radiculopathy | | | | | | of lumbar region | | | | | | L5-S1; Morbid | | | | | | obesity ([facility]); | | | | | | Sacroiliitis ([facility]); | | | | | | Trochanteric | | | | | | bursitis; Diabetes | | | | | | mellitus ([facility]); | | | | | | Asthma [...] | Office | | MD Michael [address] | | | | Visit | | [facility] | | | | | | [place] [address] | | | | | | [phone] | | | | | | | [...] Morbid obesity | + + | Sacroiliitis ([facility]) Sacroiliitis, not elsewhere classified | + + | Trochanteric bursitis Enthesopathy of hip region | + + | Diabetes mellitus ([facility]) Type II or unspecified type diabetes mellitus without mention | | of complication, not stated as uncontrolled | + + | Asthma Unspecified asthma | + + documented in this encounter
--- OUTSIDE RECORDS SUMMARY | ~2019-12-09 | XMS | Encounter Summary ---
Demographics + + + | Address | [address] | | | [place] [address] | + + + | Home Phone [...] [place] | | | | | [address] | | + + + + + | Pratibha Hester | ECON | Unknown | + | + + + + + | Demian Powell | ECON | Unknown | + | + + + + + Care Team Providers + +------+ + | Care Powerhouse Mechanic Name | Role | Phone | [...] | 05/23/ | Refill | [facility] | Sascha Mir, | Medication Refill | | 2015 | | [address] | DO [address] | | | | | [address] | [address] [place], [place] | | | | | [place] | [phone] | | | | | [address] | | | | | | [phone] | | | +--------+--------+ + + + [...] | Office | | MD Michael [address] [place] [address] | | | | Visit | | Ed Lopes | | | | | | [place] [address] | | | | | | [phone] | | | | | | | | +--------+ + + + + documented as of this encounter Visit Diagnoses Not on filedocumented in this encounter"
--- OUTSIDE RECORDS SUMMARY | ~2019-12-09 | XMS | Encounter Summary ---
Demographics + + + | Address | [address] | | | [place] [address] | + + + | Home Phone [...] [place] | | | | | [address] | | + + + + + | Pratibha Hester | ECON | Unknown | + | + + + + + | Demian Powell | ECON | Unknown | + | + + + + + Care Team Providers + +------+ + | Care Fire Lookout Name | Role | Phone | + [...] + + | 02/25/ | Telephone | [facility] | Sascha Mir, | Medication Refill | | 2014 | | [address] | DO [address] | | | | | [address] | [address] | | | | | [place] | [id number] | | | | | [address] | | | | | | [phone] | | | +--------+ + + + [...] 2019 | Office | | MD Michael [address] [place] [address] | | | | Visit | | Ed Lopes | | | | | | [place] [address] | | | | | | [phone] | | | | | | | | +--------+ + + + + documented as of this encounter Visit Diagnoses + + | Diagnosis | + + | Nausea - Primary Nausea alone | + + documented in this encounter"
--- OUTSIDE RECORDS SUMMARY | ~2019-12-09 | XMS | Encounter Summary ---
Demographics + + + | Address | [address] | | | [place] [address] | + + + | Home Phone [...] [place] | | | | | [address] | | + + + + + | Pratibha Hester | ECON | Unknown | + | + + + + + | Demian Powell | ECON | Unknown | + | + + + + + Care Team Providers + +------+ + | Care Master Control Supervisor Name | Role | Phone | [...] | 05/23/ | Refill | [facility] | Sascha Mir, | Medication Refill | | 2015 | | [address] | DO [address] | | | | | [address] | [address] [place], [place] | | | | | [place] | [phone] | | | | | [address] | | | | | | [phone] | | | +--------+--------+ + + + [...] | Office | | MD Michael [address] [place] [address] | | | | Visit | | Ed Lopes | | | | | | [place] [address] | | | | | | [phone] | | | | | | | | +--------+ + + + + documented as of this encounter Visit Diagnoses Not on filedocumented in this encounter"
--- OUTSIDE RECORDS SUMMARY | ~2019-12-09 | XMS | Encounter Summary ---
Demographics + + + | Address | [address] [facility] [address] | | | [place] [address] | + + + | Home Phone [...] [place] | | | | | [address] | | + + + + + | Pratibha Hester | ECON | Unknown | + | + + + + + | Demian Powell | ECON | Unknown | + | + + + + + Care Team Providers + +------+ + | Care Perforating Machine Operator Name | Role | Phone [...] + | 03/31/ | Refill | [facility] | Sascha Mir, | Medication Refill | | 2014 | | [address] | DO [address] | | | | | [address] [facility] | [address] [place], [place] | | | | | [place] | [phone] | | | | | [address] | | | | | | [phone] | | | +--------+--------+ + + + [...] 2019 | Office | | MD Michael [address] [place] [address] | | | | Visit | | Ed Lopes | | | | | | [place] [address] | | | | | | [phone] | | | | | | | | +--------+ + + + + documented as of this encounter Visit Diagnoses + + | Diagnosis | + + | Nausea - Primary Nausea alone | + + | S/P lumbar fusion Arthrodesis status | + + documented in this encounter"
--- OUTSIDE RECORDS SUMMARY | ~2019-12-09 | XMS | Encounter Summary ---
Demographics + + + | Address | [address] | | | [place] [address] | + + + | Home Phone [...] [place] | | | | | [address] | | + + + + + | Pratibha Hester | ECON | Unknown | + | + + + + + | Demian Powell | ECON | Unknown | + | + + + + + Care Team Providers + +------+ + | Care Shot Blast Equipment Operator Name | Role | Phone [...] + | 01/01/ | Telephone | [facility] | Sascha Mir, | Other (Medication | | 2015 | | [address] | DO [address] | refill) | | | | [address] | [address] [place], [place] | | | | | [place] | [address] | | | | | [address] | | | | | | [phone] | | | +--------+ + + + [...] 2019 | Office | | MD Michael [address] [place] [address] | | | | Visit | | Ed Lopes | | | | | | [place] [address] | | | | | | [phone] | | | | | | | | +--------+ + + + + documented as of this encounter Visit Diagnoses Not on filedocumented in this encounter"
--- OUTSIDE RECORDS SUMMARY | ~2019-12-09 | XMS | Encounter Summary ---
Demographics + + + | Address | [address] | | | [place] [address] | + + + | Home Phone [...] [place] | | | | | [address] | | + + + + + | Praitbha Hester | ECON | Unknown | + | + + + + + | Demian Powell | ECON | Unknown | + | + + + + + Care Team Providers + +------+ + | Care Oyster Cultivator Name | Role | Phone | + +------+ + | Derick Mclaughlin PA-C | PCP | | + +------+ + Encounter Details +--------+ + + + + | Date | Type | Department | Care Team | Description | +--------+ + + + + | 05/18/ | Abstract | [facility] | Denilson Jorge | Spondylolisthesis of | | 2011 | | NEUROSURGERY [address] | F[address] | lumbar region | | | | [address] | [place] | L5-S1; Pars defect | | | | [place] | [address] | of lumbar spine | | | | [address] | [phone] | L5-S1; Degenerative | | | | [phone] | | disc disease, lumbar | | | | | | L4-5; Radiculopathy | | | | | | of lumbar region | | | | | | L5-S1; Morbid | | | | | | obesity ([facility]); | | | | | | Sacroiliitis ([facility]); | | | | | | Trochanteric | | | | | | bursitis; Diabetes | | | | | | mellitus ([facility]); | | | | | | Asthma [...] Office | | MD Michael [address] | | | | Visit | | Ed [facility] | | | | | | [place] [address] | | | | | | [phone] | | | | | | | [...] Morbid obesity | + + | Sacroiliitis ([facility]) Sacroiliitis, not elsewhere classified | + + | Trochanteric bursitis Enthesopathy of hip region | + + | Diabetes mellitus ([facility]) Type II or unspecified type diabetes mellitus without mention | | of complication, not stated as uncontrolled | + + | Asthma Unspecified asthma | + + documented in this encounter
--- OUTSIDE RECORDS SUMMARY | ~2019-12-09 | XMS | Encounter Summary ---
Demographics + + + | Address | [address] [facility] [address] | | | [place] [address] | + + + | Home Phone [...] [place] | | | | | [address] | | + + + + + | Pratibha Hester | ECON | Unknown | + | + + + + + | Ana Maria Powell | ECON | Unknown | + | + + + + + Care Team Providers + +------+ + | Care Paper Cap Machine Operator Name | Role | Phone [...] Procedures | MD [address] | [address] [place] | | | | | MRI Lumbar | [address] | Street [facility] | | | | | Spine wo | [place], | [place] | | | | | Contrast | [place] [address] | [address] | | | | | | Phone: | Phone: | | | | | | [phone] | | | | | | | [phone] Fax: | Fax: | | | | | | | | | | | | | [phone] | | +--------+--------+ + + + + Encounter Details +--------+ + + + + | Date | Type | Department | Care Team | Description | +--------+ + + + + | 09/08/ | Hospital | [facility] | Denilson Jorge | Back pain | | 2012 - | Encounter | MED CTR XRAY [address] | F, [address] [place] | | | | | [place] | [address] [place] | | | 09/10/ | | [place] [address] | [address] | | | 2012 | | [phone] | | | | | | | [...] | | 0 | | | | (PRINIVIL ZESTRIL) | Daily. | | | | [...] | Office | | MD Michael [address] | | | | Visit | | Ed Lopes | | | | | | [place] [address] | | | | | | [phone] | | | | | | | [...] Performed At | + + + | [facility] | [place] | | Department [address] [place] | [facility] | | [ rep ct street[address]] [ rep ct [facility] | | st zip] Signed | - IMAGING | | | | | Patient Name: TURCIOSANA MARIA Olivia Physician: | | | ARRE.[birth year] : 1970 Age: 42 Sex: F Unit #: [id number] | | | Exam Date: 09/08/12 Location: [facility] | | | Report #: [id number] Page: | | | %(RAD)RES..mtdd.print.filter("pg") of %(RAD) | | | RES..mtdd.print.filter("tpg") | | | | | | Accession Number: [id number] | | | UNENHANCED MRI LUMBAR SPINE, [...] Transcribed | | | Date/Time: 09/08/2012 12:56 Veneer Marker: | | | <<Signature on File>> | | | Jayden Wyatt | | | MD Rush09/09/12 7224 <Electronically signed by Jayden Beverly MD> | | | Jayden Beverly MD 09/08/12 1234 Veneer Marker: | | | DoubleDutch [id number]/01/13 1256 Denilson Jorge, | | | | | + + + + + + + + | Performing | Address | City/State/Zipcode | Phone Number | | Organization | | | | + + + + + | [address] | [address] | [place] | [phone] | | [facility] | | [address] | | | - IMAGING | | | | + + + + + documented in this encounter Visit Diagnoses + + | Diagnosis | + + | Back pain Backache, unspecified | + + documented in this encounter
--- OUTSIDE RECORDS SUMMARY | ~2019-12-09 | XMS | Encounter Summary ---
Demographics + + + | Address | [address] [facility] [address] | | | [place] [address] | + + + | Home Phone [...] [place] | | | | | [address] | | + + + + + | Pratibha Hester | ECON | Unknown | + | + + + + + | Demian Powell | ECON | Unknown | + | + + + + + Care Team Providers + +------+ + | Care Acrobatic Dancer Name | Role | Phone | + [...] | Refill | [facility] | Sascha Mir, | Medication Refill | | 2014 | | NEUROSURGERY [address] | DO [address] | | | | | [address] [facility] | [address] [place], [place] | | | | | [place] | [id number] | | | | | [address] | | | | | | [phone] | | | +--------+--------+ + + + [...] | Office | | MD Michael [address] [place] [address] | | | | Visit | | Ed Lopes | | | | | | [place] [address] | | | | | | [phone] | | | | | | | | +--------+ + + + + documented as of this encounter Visit Diagnoses + + | Diagnosis | + + | Nausea - Primary Nausea alone | + + | S/P lumbar fusion Arthrodesis status | + + documented in this encounter"
--- OUTSIDE RECORDS SUMMARY | ~2019-12-09 | XMS | Encounter Summary ---
Demographics + + + | Address | [address] | | | [place] [address] | + + + | Home Phone [...] Team Providers + +------+ + | Care Mine Geologist Name | Role | Phone | + +------+ + | Gracie Lewis PA-C | PCP | | + +------+ + Encounter Details +--------+ + + + + | Date | Type | Department | Care Team | Description | +--------+ + + + + | 03/07/ | Transcribe | [facility] | Transcribe | | | 2019 | Orders | [facility] [address] | Encounter, Provider, | | | | | Melvin Schreiber Mailcode: | [address] | | | | | [address] [place] for | [place] [address] | | | | | Health and Healing, | | | | | | [address] | | | | | | [place], [place] | | | | | | [address] | | | | | | [phone] | | | +--------+ + + + [...] | | | | | | [place] [address] | | | | | | [phone] | | | | | | | | +--------+ + + + + | 01/10/ | Appointment | Gastroenterology | Guillermo Quach MD | | | 2019 | | | [address] | | | | | | [place] | | | | | | [place] [address] | | | | | | [phone] | | | | | | | [...]
--- OUTSIDE RECORDS SUMMARY | ~2019-12-09 | XMS | Encounter Summary ---
Demographics + + + | Address | [address] [facility] [address] | | | [place] [address] | + + + | Home Phone [...] [place] | | | | | [address] | | + + + + + | Pratibha Hester | ECON | Unknown | + | + + + + + | Demian Powell | ECON | Unknown | + | + + + + + Care Team Providers + +------+ + | Care Wet Mix Operator Name | Role | Phone | [...] | | | spondylolist | | [address] | | | | | hesis | | [place], | | | | | Acquired | | [place] [address] | | | | | spondylolist | | Phone: | | | | | hesis | | [phone] | | | | | Procedures | | Fax: | | | | | MD ARTHDSIS | | [phone] | | | | | POST/POSTERO | [...] + + | 12/12/ | Hospital | [facility] | Sascha Mir, | | | 2015 - | Encounter | MED CTR SURGICAL | DO [address] | | | | | [address] [place] | [address] | | | 12/16/ | | [place] [address] | [id number] | | | 2014 | | [phone] | | | +--------+ + + + [...] admission the patient was admitted to [facility] and underwent a L5-S1 fusion . [...] mobility and she was ultimately discharged to [facility]. Medications Reconciled upon Discharge are: Discharge [...] Discharge: Stable Disposition: Patient was discharged to [facility]. Follow-Up Plans: Follow-up with: Dr. Mir's office in 4 weeks Follow-up with primary care physician as needed. Diet: Resume regular diet Activity: Continue to follow guidelines and precautions as previously discussed. Electronically signed by: Amol Triplett, 12/16/2014 7:45 [facility] documented in this encounter Discharge Instructions [...] might be different f rom the original. [facility] NEUROSURGERY PROGRESS NOTE Pt. Name/Age/: Demian [...] surgery. She is reay to go t [facility] in [place]. No further C/C OBJECTIVE: Patient Vitals for [...] Electronically signed by: Amol Triplett, 12/16/2014 7:36 [facility] Sascha Beck DO - 12/15/2014 9:20 AM PDT Subjective The patient was seen and examined by me today. She complains of of left tingling - improved from numbness, and left leg dysesthesia. Her l egs feel strong. Moderate surgical pain, but tolerable. She would like to go to SNF in [facility] before discharge home. Objective Filed Vitals: 12/15/14 [...] would like to go to SNF in [facility] before discharge home. Objective Filed Vitals: 12/14/14 [...] -DC plan: ready for SNF tomorrow Sascha Bekc DO - 12/13/2014 8:11 AM PDT Subjective [...] Range POC Test, Urine Negative POC Specific [place] Internal QC Acceptable Lot Number [id number] Expiration Date POC GLUCOSE Result Value Ref [...] | Office | | MD Michael [address] | | | | Visit | | Ed [facility] | | | | | | [place] [address] | | | | | | [phone] | | | | | | | [...] | of hardware for posterior fusion from O1yokcfas S1 with interbody hardware at L5-S1. | [...] + | Performing | Address | City/State/[facility] | Phone Number | | Organization [...] [address] | [place] | [phone] | | [facility] | | [address] | | | - LABORATORY | | [...] Specific | | | | | | [place], | | | | | | POC | | | | | + + + + + + | Internal QC | Acceptable | | | | + + + + + + | Lot Number | [id number] | | | | + + + [...] [address] | [place] | [phone] | | [facility] | | [address] | | | - LABORATORY | | [...] ST. | [address] | [place], [place] | | | [facility] | | [address] | | | - BLOOD BANK | [...] | | | | | | | [facility] 12/12/14 at 1500, For 2 doses, [...] PDT | | | | | Starting [facility] 12/12/14 at 1433, | | | [...] | | | | | | | [facility] 12/12/14 at 1300, For 3 doses, [...]
--- OUTSIDE RECORDS SUMMARY | ~2019-12-09 | XMS | Encounter Summary ---
Demographics + + + | Address | [address] | | | [place] [address] | + + + | Home Phone [...] [place] | | | | | [address] | | + + + + + | Pratibha Hester | ECON | Unknown | + | + + + + + | Demian Powell | ECON | Unknown | + | + + + + + Care Team Providers + +------+ + | Care Photographic Plate Maker Name | Role | Phone | [...] + | 06/23/ | Telephone | [facility] | Sascha Mir, | Other | | 2014 | | NEUROSURGERY [address] | DO [address] | | | | | [address] | [address] [place], [place] | | | | | [place] | [address] | | | | | [address] | | | | | | [phone] | | | +--------+ + + + [...] 2019 | Office | | MD Michael [address] [place] [address] | | | | Visit | | Ed Lopes | | | | | | [place] [address] | | | | | | [phone] | | | | | | | | +--------+ + + + + documented as of this encounter Visit Diagnoses Not on filedocumented in this encounter"
--- OUTSIDE RECORDS SUMMARY | ~2019-12-09 | XMS | Encounter Summary ---
Demographics + + + | Address | [address] | | | [place] [address] | + + + | Home Phone [...] [place] | | | | | [address] | | + + + + + | Pratibha Hester | ECON | Unknown | + | + + + + + | Demian Powell | ECON | Unknown | + | + + + + + Care Team Providers + +------+ + | Care Foiling Machine Adjuster Name | Role | Phone | + [...] [address] | [address] [place], [place] | intervertebral disc | | | | [place], [place] | [address] | without myelopathy | | | | [address] | | (Primary Dx) | | | | [phone] | | | +--------+ + + + [...] | Office | | MD Michael [address] | | | | Visit | | Burton [address]ER | | | | | | [place] [address] | | | | | | [phone] | | | | | | | [...] | | HISTORY:Back pain COMPARISON: MRI from [facility] dated | [facility] | | June 25, 2014 and plain [...] | 09/26/2014 8:51 AMHISTORY:Back painCOMPARISON: MRI from [facility] dated | | June 25, 2014 [...] [address] | [place] | [phone] | | [facility] | | [address] | | | - IMAGING | | | | + + + + + documented in this encounter Visit Diagnoses + + | Diagnosis | + + | 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
--- OUTSIDE RECORDS SUMMARY | ~2019-12-09 | XMS | Encounter Summary ---
Demographics + + + | Address | [address] | | | [place] [address] | + + + | Home Phone [...] [place] | | | | | [address] | | + + + + + | Pratibha Hester | ECON | Unknown | + | + + + + + | Demian Powell | ECON | Unknown | + | + + + + + Care Team Providers + +------+ + | Care Animal Care Supervisor Name | Role | Phone | [...] | | | spondylolist | | [address] | | | | | hesis | | [place], | | | | | Acquired | | [place] [address] | | | | | spondylolist | | Phone: | | | | | hesis | | [phone] | | | | | Procedures | | Fax: | | | | | AL ARTHDSIS | | [phone] | | | | | POST/POSTERO | [...] + + | 12/12/ | Surgery | [facility] | Sascha Mir, | L5-S1 Transforaminal | | 2015 | | MED CTR OR INTRA OP | DO [address] | Lumbar Interbody | | | | [address] | [address] | Fusion | | | | [place], [place] | [id number] | | | | | [address] | | | | | | [phone] | | | +--------+---------+ + + + [...] of admission the patient was admitted to [facility] and underwent a L5-S1 fusion . Patient [...] mobility and she was ultimately discharged to [facility]. Medications Reconciled upon Discharge are: Discharge Medications [...] Discharge: Stable Disposition: Patient was discharged to [place]. Follow-Up Plans: Follow-up with: Dr. Mir's office in 4 weeks Follow-up with primary care physician as needed. Diet: Resume regular diet Activity: Continue to follow guidelines and precautions as previously discussed. Electronically signed by: Amol Triplett, 12/16/2014 7:[address] [facility] documented in this encounter Discharge Instructions Instructions [...] might be different f rom the original. [facility] NEUROSURGERY PROGRESS NOTE Pt. Name/Age/: Demian [...] surgery. She is reay to go t [facility] in [place]. No further C/C OBJECTIVE: Patient Vitals for [...] ASSESSMENT:SP L5-S1 fuison Plan:B [facility]. DC to [facility] today. See DC summary. Electronically signed by: Amol Triplett, 12/16/2014 7:36 [facility] Sascha Beck DO - 12/15/2014 9:20 AM PDT Subjective The patient was seen and examined by me today. She complains of of left tingling - improved from numbness, and left leg dysesthesia. Her l egs feel strong. Moderate surgical pain, but tolerable. She would like to go to SNF in [facility] before discharge home. Objective Filed Vitals: 12/15/14 [...] [facility] before discharge home. Objective Filed Vitals: 12/14/14 [...] Range POC Test, Urine Negative POC Specific [place] Internal QC Acceptable Lot Number [id number] Expiration Date POC GLUCOSE Result Value Ref [...] | Office | | MD Michael [address] | | | | Visit | | [address] | | | | | | [place] [address] | | | | | | [phone] | | | | | | | [...] | of hardware for posterior fusion from [id number] S1 with interbody hardware at L5-S1. | [...] [address] | [place] | [phone] | | [facility] | | [address] | | | - LABORATORY | | [...] Specific | | | | | | [place], | | | | | | POC | | | | | + + + + + + | Internal QC | Acceptable | | | | + + + + + + | Lot Number | [id number] | | | | + + + [...] ST. | [address] | [place] | [phone] | | [facility] | | [address] | | | - LABORATORY | | [...] [place] | [place] | | | [facility] | | [address] | | | - BLOOD BANK | [...]
--- OUTSIDE RECORDS SUMMARY | ~2019-12-09 | XMS | Encounter Summary ---
Demographics + + + | Address | [address] | | | [place] [address] | + + + | Home Phone [...] [place] | | | | | [address] | | + + + + + | Pratibha Hester | ECON | Unknown | + | + + + + + | Demian Powell | ECON | Unknown | + | + + + + + Care Team Providers + +------+ + | Care Investment Banking Analyst Name | Role | Phone | [...] + + | 12/17/ | Telephone | [facility] | Sascha Mir, | Medication | | 2014 | | NEUROSURGERY [address] | DO [address] | Management | | | | [address] [facility] | [address] [place], [place] | | | | | [place] | [address] | | | | | [address] | | | | | | [phone] | | | +--------+ + + + [...] 2019 | Office | | MD Michael [address] [place] [address] | | | | Visit | | Ed Lopes | | | | | | [place] [address] | | | | | | [phone] | | | | | | | | +--------+ + + + + documented as of this encounter Visit Diagnoses Not on filedocumented in this encounter"
--- OUTSIDE RECORDS SUMMARY | ~2019-12-09 | XMS | Encounter Summary ---
Demographics + + + | Address | [address] | | | [place] [address] | + + + | Home Phone [...] | Author | [facility] | | | and [place] | + + + | Organization | [facility] | | [...] [place] | | | | | [address] | | + + + + + | Pratibha Hester | ECON | Unknown | + | + + + + + | Demian Powell | ECON | Unknown | + | + + + + + Care Team Providers + +------+ + | Care Vegetable Worker Name | Role | Phone | [...] + + | 07/23/ | Telephone | [facility] | Roger Triplett | Other | | 2014 | | PHYSIATRY [address] | TMD [address] | | | | | [address] [facility] [address] | [address] [place] | | | | | [place] | [address] | | | | | [address] | | | | | | [phone] | | | +--------+ + + + [...] | Office | | MD Michael [address] [place] [address] | | | | Visit | | Ed Lopes | | | | | | [place] [address] | | | | | | [phone] | | | | | | | | +--------+ + + + + documented as of this encounter Visit Diagnoses Not on filedocumented in this encounter"
--- OUTSIDE RECORDS SUMMARY | ~2019-12-09 | XMS | Encounter Summary ---
Demographics + + + | Address | [address] | | | [place] [address] | + + + | Home Phone [...] [place] | | | | | [address] | | + + + + + | Pratibha Hester | ECON | Unknown | + | + + + + + | Demian Powell | ECON | Unknown | + | + + + + + Care Team Providers + +------+ + | Care Skiver Sock Linings Name | Role | Phone | + +------+ + | Jannette Boyle PA-C | PCP | | + +------+ + Encounter Details +--------+ + + + + | Date | Type | Department | Care Team | Description | +--------+ + + + + | 09/27/ | Orders Only | [facility] | Sascha Mir, | Back pain, | | 2017 | | NEUROSURGERY [address] | DO [address] | unspecified back | | | | [address] | [address] [place], [place] | location, | | | | [place], [place] | [address] | unspecified back | | | | [address] | | pain laterality, | | | | [phone] | | unspecified | | | | [...] | Office | | MD Michael [address] | | | | Visit | | Ed Lopes | | | | | | [place] [address] | | | | | | [phone] | | | | | | | [...]
--- OUTSIDE RECORDS SUMMARY | ~2019-12-09 | XMS | Encounter Summary ---
Demographics + + + | Address | [address] | | | [place] [address] | + + + | Home Phone [...] Team Providers + +------+ + | Care Fashion Coordinator Name | Role | Phone | [...] | | | [address] | [facility] [place] | | | | | Physician's | [address] | | | | | [place], [facility] floor | [phone] | | | | | [place], [place] | | | | | | [address] | | | | | | [phone] | | | +--------+ + + + [...] | | | | | | [place] [address] | | | | | | [phone] | | | | | | | | +--------+ + + + + | 01/10/ | Appointment | Gastroenterology | Guillermo Quach MD | | | 2019 | | | [address] | | | | | | [place] | | | | | | [place] [address] | | | | | | [phone] | | | | | | | | +--------+ + + + + documented as of this encounter Visit Diagnoses Not on filedocumented in this encounter"
--- OUTSIDE RECORDS SUMMARY | ~2019-12-09 | XMS | Encounter Summary ---
Demographics + + + | Address | [address] | | | [place] [address] | + + + | Home Phone [...] Providers + +------+ + | Care Plant Electrician Name | Role | Phone | + [...] + + | 05/08/ | Emergency | [facility] Emergency | Davis Cabrera MD | | | 2008 | | Department [address] | [address] [facility] | | | | | [address] | [place] | | | | | [facility] | [place], [place] | | | | | [place] | [address] | | | | | [address] | [phone] | | | | | [phone] | | | +--------+ + + + [...] be followed carefully by your caregiver or presser and blocker knitted goods. 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 You do not have pain relief from prescribed medications. Your condition is worsening or has changed from what originally brought you in. ExitCare Patient Information 2006 [employer]. documented in this encounter Medications at Time [...] | | | | | | [place] [address] | | | | | | [phone] | | | | | | | | +--------+ + + + + | 01/10/ | Appointment | Gastroenterology | Guillermo Quach MD | | | 2019 | | | [address] | | | | | | [place], | | | | | | [place] [address] | | | | | | [phone] | | | | | | | | +--------+ + + + + documented as of this encounter Visit Diagnoses + + | Diagnosis | + + | Herpes Zoster Herpes zoster without mention of complication | + + documented in this encounter"
--- OUTSIDE RECORDS SUMMARY | ~2019-12-09 | XMS | Encounter Summary ---
Demographics + + + | Address | [address] | | | [place] [address] | + + + | Home Phone [...] Providers + +------+ + | Care Home Health Administrator Name | Role | Phone | [...] | | | | [address] | [place], [place] | | | | | Physician's | [address] | | | | | Pavilion, 2nd floor | [phone] | | | | | [place], [place] | | | | | | [address] | | | | | | [phone] | | | +--------+ + + + [...] | | | | | | [place] [address] | | | | | | [phone] | | | | | | | | +--------+ + + + + | 01/10/ | Appointment | Gastroenterology | Guillermo Quach MD | | | 2019 | | | [address] | | | | | | [place] | | | | | | [place] [address] | | | | | | [phone] | | | | | | | | +--------+ + + + + documented as of this encounter Visit Diagnoses Not on filedocumented in this encounter"
--- OUTSIDE RECORDS SUMMARY | ~2019-12-09 | XMS | Encounter Summary ---
Demographics + + + | Address | [address] | | | [place] [address] | + + + | Home Phone [...] [place] | | | | | [address] | | + + + + + | Pratibha Hester | ECON | Unknown | + | + + + + + | Demian Powell | ECON | Unknown | + | + + + + + Care Team Providers + +------+ + | Care Buttonhole Machine Operator Name | Role | Phone [...] pain | [address] | [facility] | | | | | Cervical | [place], [place] | [place], [place] | | | | | radicular | [address] | [address] Phone: | | | | | pain | Phone: | [phone] | | | | | | [phone] | Fax: | | | | | | Fax: | [phone] | | | | | | [phone] | | +--------+ + + + + + Reason for Visit + + + | Reason | Comments | + + + | Follow-up | Back pain | + + + Encounter Details +--------+---------+ + + + | Date | Type | Department | Care Team | Description | +--------+---------+ + + + | 06/04/ | Office | [facility] | Sascha Mir, | Spondylolisthesis, | | 2014 | Visit | NEUROSURGERY [address] | DO [address] | lumbar region | | | | [address] | [address] [place], [place] | (Primary Dx); S/P | | | | [place] | [address] | lumbar fusion; | | | | [address] | | Lumbar radicular | | | | [phone] | | pain; Cervical | | | [...] the original. Sascha Mir DO [address] [facility] [address] [place] [address] FAX: NEUROSURGERY FOLLOW-UP CHIEF COMPLAINT: Chief Complaint [...] the patient is not pleased with her [facility] ent. PAST MEDICAL HISTORY: Past Medical History [...] | Office | | MD Michael [address] [place] [address] | | | | Visit | | Ed [facility] | | | | | | [place] [address] | | | | | | [phone] | | | | | | | [...] views of the lumbar spine. Posterior | [facility] | | pedicle screw and nayan [...] ST. | [address] | [place], [place] | [phone] | | [facility] | | [address] | | | - IMAGING | | [...] [address] | [place] | [phone] | | [facility] | | [address] | | | - IMAGING | | [...]
--- OUTSIDE RECORDS SUMMARY | ~2019-12-09 | XMS | Encounter Summary ---
Demographics + + + | Address | [address] | | | [place] [address] | + + + | Home Phone [...] [place] | | | | | [address] | | + + + + + | Pratibha Hester | ECON | Unknown | + | + + + + + | Demian Powell | ECON | Unknown | + | + + + + + Care Team Providers + +------+ + | Care Insurance Claim Auditor Name | Role | Phone | + [...] | | [place] | [place] [address] | | | | | [address] | [phone] | | | | | [phone] | | | +--------+--------+ + + + [...] | Office | | MD Michael [address] [place] [address] | | | | Visit | | Ed Lopes | | | | | | [place] [address] | | | | | | [phone] | | | | | | | | +--------+ + + + + documented as of this encounter Visit Diagnoses + + | Diagnosis | + + | Nausea Nausea alone | + + documented in this encounter"
--- OUTSIDE RECORDS SUMMARY | ~2019-12-09 | XMS | Encounter Summary ---
Demographics + + + | Address | [address] | | | [place] [address] | + + + | Home Phone [...] Team Providers + +------+ + | Care Civil Engineering Professional Name | Role | Phone | [...] on | Otology Services at | [facility] | | | | | [address] [place], [place] | | | | | [address] | [address] | | | | | Physician's | | | | | | Pavilion, 2nd floor | | | | | | [place], [place] | | | | | | [address] | | | | | | [phone] | | | +--------+ + + + [...] | | | | | | [place] [address] | | | | | | [phone] | | | | | | | | +--------+ + + + + | 01/10/ | Appointment | Gastroenterology | Guillermo Quach MD | | | 2019 | | | [address] | | | | | | [place] | | | | | | [place] [address] | | | | | | [phone] | | | | | | | | +--------+ + + + + documented as of this encounter Visit Diagnoses Not on filedocumented in this encounter"
--- OUTSIDE RECORDS SUMMARY | ~2019-12-09 | XMS | Encounter Summary ---
Demographics + + + | Address | [address] | | | [place] [address] | + + + | Home Phone [...] [place] | | | | | [address] | | + + + + + | Pratibha Hester | ECON | Unknown | + | + + + + + | Demian Powell | ECON | Unknown | + | + + + + + Care Team Providers + +------+ + | Care School Secretary Name | Role | Phone | + [...] + + | 08/23/ | Telephone | [facility] | Denilson Jorge | Other (Schedule MRI | | 2012 | | [address] | [address] | ) | | | | [address] [facility] [address] | [place] | | | | | [place] | [address] | | | | | [address] | [phone] | | | | | [phone] | | | +--------+ + + + [...] | Office | | MD Michael [address] [place] [address] | | | | Visit | | Ed Lopes | | | | | | [place] [address] | | | | | | [phone] | | | | | | | | +--------+ + + + + documented as of this encounter Visit Diagnoses Not on filedocumented in this encounter"
--- OUTSIDE RECORDS SUMMARY | ~2019-12-09 | XMS | Encounter Summary ---
Demographics + + + | Address | [address] | | | [place] [address] | + + + | Home Phone [...] [place] | | | | | [address] | | + + + + + | Pratibha Hester | ECON | Unknown | + | + + + + + | Demian Powell | ECON | Unknown | + | + + + + + Care Team Providers + +------+ + | Care Otologist Name | Role | Phone | + +------+ + | Quentin Manriquez PA-C | MARCK | | + +------+ + Encounter Details +--------+---------+ + + + | Date | Type | Department | Care Team | Description | +--------+---------+ + + + | 01/15/ | Office | [facility] | Amol Triplett, | Spondylolisthesis of | | 2014 | Visit | NEUROSURGERY [address] | PA-C [address] | lumbar region L5-S1 | | | | [address] | [address] [place] | (Primary Dx); S/P | | | | [place] | [place] [address] | lumbar fusion | | | | [address] | [phone] | | | | | [phone] | | | +--------+---------+ + + + [...] your back and use good technique when bulk picker things and bending. documented in this encounter Progress Notes Amol Triplett PA - 01/15/2015 10:33 AM PDTFormatting of this note might be different f rom the original. ANNETTE Gutierrez [address] [facility] [address] [place], [place] [address] FAX: NEUROSURGERY SURGICAL FOLLOW-UP CHIEF COMPLAINT: No [...] 2019 | Office | | MD Michael [address] [place] [address] | | | | Visit | | Ed Lopes | | | | | | [place] [address] | | | | | | [phone] | | | | | | | [...] | + + + + + | [facility] | [address] | [place] | [phone] | | [facility] | | [address] | | | - IMAGING | | | | + + + + + documented in this encounter Visit Diagnoses + + | Diagnosis | + + | Spondylolisthesis of lumbar region L5-S1 - Primary Acquired spondylolisthesis | + + | S/P lumbar fusion Arthrodesis status | + + documented in this encounter
--- OUTSIDE RECORDS SUMMARY | ~2019-12-09 | XMS | Encounter Summary ---
Demographics + + + | Address | [address] | | | [place] [address] | + + + | Home Phone [...] Providers + +------+ + | Care Nursing Surgical Services Director Name | Role | Phone | + +------+ + | Soniya Sinha [facility] | PCP | | + +------+ + Encounter Details +--------+ + + + + | Date | Type | Department | Care Team | Description | +--------+ + + + + | 10/03/ | Junior Architect | Otolaryngology | Windy Mclean | Dizziness (Primary | | 2013 | | Otology Services at | MD Loli [address] | Dx); Hearing loss | | | | [address] | | | | | [address] | [facility] [place] | | | | | Physician's | [address] | | | | | Pavilion, 2nd floor | [phone] | | | | | [facility] [place] | | | | | | [address] | | | | | | [phone] | | | +--------+ + + + [...] | | | | | | [place] [address] | | | | | | [phone] | | | | | | | | +--------+ + + + + | 01/10/ | Appointment | Gastroenterology | Guillermo Quach MD | | | 2019 | | | [address] | | | | | | [place] | | | | | | [place] [address] | | | | | | [phone] | | | | | | | | +--------+ + + + + documented as of this encounter Visit Diagnoses + + | Diagnosis | + + | Dizziness - Primary Dizziness and giddiness | + + | Hearing loss | + + documented in this encounter"
--- OUTSIDE RECORDS SUMMARY | ~2019-12-09 | XMS | Encounter Summary ---
Demographics + + + | Address | [address] | | | [place] [address] | + + + | Home Phone [...] Team Providers + +------+ + | Care Delinquent Tax Collector Assistant Name | Role | Phone | [...] | | | | Gastroesopha | AGACNP [address] | | | | | | geal reflux | [address] | | | | | | disease, | [place], | | | | | | esophagitis | [place] | | | | | | presence not | [address] | | | | | | specified | Phone: | | | | | | Severe | [phone] | | | | | | obesity | Fax: | | | | | | ([facility]) Type | [phone] | | | | | | 2 [...] | | | | | ([facility]) Hx of | | | | [...] | Pain | Diagnoses | Berna, | Communications Editor Psych | | | | Management | | Jen Gross, | [address] | | | | | Gastroesopha | AGACNP [address] | | | | | geal reflux | [address] | Mailcode: | | | | | disease, | [place], | [facility] | | | | | esophagitis | [place] | for Health | | | | | presence not | [address] | and Healing, | | | | | specified | Phone: | Building 1, | | | | | Severe | | 15th Floor | | | | | obesity | Fax: | [place], [place] | | | | | ([facility]) Type | [phone] | [address] | | | | | 2 diabetes | | Phone: | | | | | mellitus | | [phone] | | | | | without | | Fax: | | | | | complication | | [phone] | | | | | , with [...] Satinder Capellan MD | | | with DRILLING MANAGER | | (severe) | PA-C | [address] | | | | | obesity due | [address] | Ave | | | | | to excess | [place] | [place], [place] | | | | | calories | Health | [address] | | | | | Obesity, | Center [address] | Phone: | | | | | unspecified | | [phone] | | | | | | [address] | Fax: | | | | | | Way [address] | [phone] | | | | | | [address] | | | | | | | [place], | | | | | | | [place] [address] | | | | | | | Phone: | | | | | | | [phone] | | | | | | | Fax: | | | | | | | [phone] | | +--------+ + + + + [...] | | [address] | Ave [place], [place] | Gastroesophageal | | | | Mailcode: Center | [address] | reflux disease, | | | | for Health and | [phone] | esophagitis presence | | | | Healing, Building 2 | | not specified; Type | | | | [place], [place] | | 2 diabetes mellitus | | | | [address] | | without | | | | [...] : -Centrum for Adults -Equate version of [facility] daily multivitamin + Labs needed: CBC, CMP, [...] Pre-op Psychological Evaluation: Your referral is at [facility], the Pain Management Office w ill call you in the next week to schedule. + Hemoglobin A1C will have to be below 8 prior to surgery. + Weight Management classes: 2 classes are required in addition to your private appointme nt with the clean room assembler. These classes will be scheduled apporoximately 1 month apart to allow time for you to put the teaching into action. Please call [phone] to schedule these classes after you have [...] The patient has seen our [facility] clean room assembler and physical therapy colleagues to discuss exercise [...] a healthy weight. + Sign up for FoodText so that we can communicate easily back [...] other providers does not guarantee that the [facility] Bariatric Surger y program will deem you a surgical candidate. documented in this encounter Progress Notes Jen Coronel AGACNP - 06/27/2019 12:50 PM PSTFormatting of this note might be differen t from the original. BARIATRIC SURGERY INITIAL VISIT Provider: Jen Coronel, MSN, AG-ACNP Referring Provider: Gracie Lewis MD Reason for Requested Consultation: Initial evaluation for bariatric surgery. Morris Yolanda He rrera is interested in gastric banding. 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 female who presents with a [facility] medical history of morbid obesity [...] Redux or Phen/fen: no Transthoracic ECHO: na Mormon or cultural reason you would refuse blood [...] day prior to colonoscopy as directed by [facility]. Discard remaining half jug. Indications: Bowel Evacuation, [...] file Gets together: Not on file Attends scientologist service: Not on file Active member of [...] inches / 40 cm around (measure at [employer])? Yes 8. Gender = Male? No [...] ordered -ok to do this locally in [place] -Is a stomach sleeper, may not tolerate [...] : -Centrum for Adults -Equate version of [facility] daily multivitamin + Labs needed: CBC, CMP, [...] Pre-op Psychological Evaluation: Your referral is at [facility], the Pain Management Office w ill call you in the next week to schedule. + Hemoglobin A1C will have to be below 8 prior to surgery. + Weight Management classes: 2 classes are required in addition to your private appointme nt with the clean room assembler. These classes will be scheduled apporoximately 1 month apart to allow time for you to put the teaching into action. Please call [phone] to schedule these classes after you have [...] The patient has seen our [facility] clean room assembler and physical therapy colleagues to discuss exercise [...] a healthy weight. + Sign up for FoodText so that we can communicate easily back [...] other providers does not guarantee that the [facility] Bariatric Surger y program will deem you [...] Coronel, MSN, AG-ACNP Bariatric Surgery Nurse Practitioner [facility] | [address] | [place] | [address] | documented in is encounter Plan of [...] | | | | | [place], | | | | | | [place] [address] | | | | | | [phone] | | | | | | | | +--------+ + + + + | 01/10/ | Appointment | Gastroenterology | Guillermo Quach MD | | | 2019 | | | [address] | | | | | | [place], | | | | | | [place] [address] | | | | | | [phone] | | | | | | | [...] | | 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 ([facility]) | | | | | | [...] | | 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 ([facility]) | | | | | | [...] | | 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 ([facility]) | | | | | | [...] | | | Severe obesity ([facility]) | | | | | | Type 2 diabetes | | | | | | mellitus without | | | | | | complication, with | | | | | | long-term current | | | | | | 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 ([facility]) | | | | | | [...] | | 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 ([facility]) | | | | | | [...] | | | Severe obesity ([facility]) | | | | | | Type 2 diabetes | | | | | | mellitus without | | | | | | complication, with | | | | | | long-term current | | | | | | 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 ([facility]) | | | | | | [...] | | | Severe obesity ([facility]) | | | | | | Type 2 diabetes | | | | | | mellitus without | | | | | | complication, with | | | | | | long-term current | | | | | | 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 ([facility]) | | | | | | [...] | | | Severe obesity ([facility]) | | | | | | Type 2 diabetes | | | | | | mellitus without | | | | | | complication, with | | | | | | long-term current | | | | | | 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 ([facility]) | | | | | | [...] | | | Severe obesity ([facility]) | | | | | | Type 2 diabetes | | | | | | mellitus without | | | | | | complication, with | | | | | | long-term current | | | | | | 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 ([facility]) | | | | | | [...]
--- OUTSIDE RECORDS SUMMARY | ~2019-12-09 | XMS | Encounter Summary ---
Demographics + + + | Address | [address] | | | [place] [address] | + + + | Home Phone [...] [place] | | | | | [address] | | + + + + + | Pratibha Hester | ECON | Unknown | + | + + + + + | Demian Powell | ECON | Unknown | + | + + + + + Care Team Providers + +------+ + | Care Employment Programs Analyst Name | Role | Phone | + +------+ + PCP | Unavailable | + +------+ + Encounter Details +--------+ + + + + | Date | Type | Department | Care Team | Description | +--------+ + + + + | 05/23/ | Hospital | [facility] | | | | 1999 | Encounter | MED CTR LABORATORY | | | | | | [address] | | | | | | [place] | | | | | | [address] | | | | | | [phone] | | | +--------+ + + + [...] | Office | | MD Michael [address] [place] [address] | | | | Visit | | [address] | | | | | | [place] [address] | | | | | | [phone] | | | | | | | | +--------+ + + + + documented as of this encounter Visit Diagnoses Not on filedocumented in this encounter"
--- OUTSIDE RECORDS SUMMARY | ~2019-12-09 | XMS | Encounter Summary ---
Demographics + + + | Address | [address] | | | [place] [address] | + + + | Home Phone [...] Team Providers + +------+ + | Care Fur Nailer Name | Role | Phone | + +------+ + | Quentin Manriquez | PCP | | + +------+ + Encounter Details +--------+ + + + + | Date | Type | Department | Care Team | Description | +--------+ + + + + | 02/16/ | Abstract | [facility] | Clinic, | | | 2017 | | [place] [facility] [address] | Gastroenterology | | | | | [address] | | | | | | Mailcode: [place] | | | | | | [facility] and | | | | | | Healing, Building 2 | | | | | | [place], [place] | | | | | | [address] | | | | | | [phone] | | | +--------+ + + + [...] | | | | | | [place] [address] | | | | | | [phone] | | | | | | | | +--------+ + + + + | 01/10/ | Appointment | Gastroenterology | Guillermo Quach MD | | | 2019 | | | [address] | | | | | | [place] | | | | | | [place] [address] | | | | | | [phone] | | | | | | | | +--------+ + + + + documented as of this encounter Visit Diagnoses Not on filedocumented in this encounter"
--- OUTSIDE RECORDS SUMMARY | ~2019-12-09 | XMS | Clinical Summary ---
Demographics + + + | Address | [address] | | | [place] [address] | + + + | Home Phone [...] Team Providers + +------+ + | Care Cocoa Bean Roaster Helper Name | Role | Phone | + +------+ + | Gracie Lewis PA-C | PCP | | + +------+ + Source Comments WHITNEY is fully live on both [facility] and [facility] InPatient.[facility] Allergies + + + + + [...] [address] | | | | | | [place], | | | | | | [place] [address] | | | | | | [phone] | | | | | | | | +--------+ + + + + | 01/10/ | Appointment | Gastroenterology | Guillermo Quach MD | | | 2019 | | | [address] | | | | | | [place], | | | | | | [place] [address] | | | | | | [phone] | | | | | | | [...] | | | + +--------+ +--------+-------+---------+--------+ | UNIX SYSTEMS ADMINISTRATOR MEDICAID | UNIX SYSTEMS ADMINISTRATOR | [id number] | 08/08/19 | | | Medica | | | EASTER | | 18-Pre | | | id | | | [place] | | sent | | | | + +--------+ +--------+-------+---------+--------+ | [facility] | [employer] | [id number] | Effect | | | [...] | Self | [birth year] | | [address] | | | al/Fam | | 1970 | [phone] | [place] [address] | | | neil | | | 1 (Home) | | + +--------+ +--------+ + + | Demian Nina | Agency | Self | [birth year] | | [address] | | | | | 1970 | [phone] | [place] [address] | | | | | | 1 (Home) | | + +--------+ +--------+ + +
--- OUTSIDE RECORDS SUMMARY | ~2019-12-09 | XMS | Encounter Summary ---
Demographics + + + | Address | [address] | | | [place] [address] | + + + | Home Phone [...] Team Providers + +------+ + | Care Detention Attendant Name | Role | Phone | [...] floor | | | | | | [place], [place] | | | | | | [address] | | | | | | [phone] | | | +--------+ + + + [...] to mild conductive hearing loss. A speech operator receptionist threshold was o btained at 30 dB HL and is in good agreement with responses to pure-tone stimuli. Word clau gnition ability was 100% when words were presented at a comfortable level of 65 dB HL. Left Ear: Near normal hearing with a conductive loss below 2000 Hz; mild sensorineural he aring loss at 8000 Hz. A speech operator receptionist [...] | | | | | | [place] [address] | | | | | | [phone] | | | | | | | | +--------+ + + + + | 01/10/ | Appointment | Gastroenterology | Guillermo Quach MD | | | 2019 | | | [address] | | | | | | [place], | | | | | | [place] [address] | | | | | | [phone] | | | | | | | | +--------+ + + + + documented as of this encounter Procedures + +--------+ + + + | Procedure Name | Priori | Date/Time | Associated Diagnosis | Comments | | | ty | | | | + +--------+ + + + | SC TYMPANOMETRY | Routin | 08/14/2014 | Conductive hearing | | | | e | 4:03 PM | loss, bilateral | | | | | PST | | | + +--------+ + + + | SC COMPREHENSIVE | Routin | 08/14/2014 | Conductive [...]
--- OUTSIDE RECORDS SUMMARY | ~2019-12-09 | XMS | Encounter Summary ---
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 ANNETTE Gutierrez [address] [facility] [address] [place], [place] [id number] FAX: NEUROSURGERY HISTORY AND PHYSICAL EXAMINATION CHIEF [...] difficulty walking more than a few blocks. e patient does not report any change [...] Anemia Anxiety Asthma Heart attack ([facility]) 2009 Migraine Ulcer of the stomach and intestine Adverse effect of anesthesia trouble with itching & shortness of breath after anesthesia. PONV (postoperative nausea and vomiting) PLAN: It was a pleasure meeting and evaluating this patient today, and I greatly appreciate the mitchell crawley. The patient has unstable spondylolisthesis L5-S1 with [...] | Office | | MD Michael [address] [place] [address] | | | | Visit | | [address] | | | | | | [place] [address] | | | | | | [phone] | | | | | | | [...]
--- OUTSIDE RECORDS SUMMARY | ~2019-12-09 | XMS | Encounter Summary ---
Demographics + + + | Address | [address] | | | [place] [address] | + + + | Home Phone [...] [place] | | | | | [address] | | + + + + + | Pratibha Hester | ECON | Unknown | + | + + + + + | Demian Powell | ECON | Unknown | + | + + + + + Care Team Providers + +------+ + | Care Outcome Analyst Name | Role | Phone | [...] + + | 12/31/ | Telephone | [facility] | Sascha Mir, | Appointment | | 2014 | | NEUROSURGERY [address] | DO [address] | | | | | [address] [facility] | [address] [place], [place] | | | | | [place] | [id number] | | | | | [address] | | | | | | [phone] | | | +--------+ + + + [...] | Office | | MD Michael [address] [place] [address] | | | | Visit | | [address] | | | | | | [place] [address] | | | | | | [phone] | | | | | | | | +--------+ + + + + documented as of this encounter Visit Diagnoses Not on filedocumented in this encounter"
--- OUTSIDE RECORDS SUMMARY | ~2019-12-09 | XMS | Encounter Summary ---
Demographics + + + | Address | [address] | | | [place] [address] | + + + | Home Phone [...] Providers + +------+ + | Care Patient Access Coordinator Name | Role | Phone | [...] | | | | tube | | [place], [place] | | | | | Nonsuppurati | | [address] | | | | | ve otitis | | Phone: | | | | | media, not | | [phone] | | | | | specified as | | Fax: | | | | | acute or | | [phone] | | | | | chronic | [...] | | | | [address] | [facility] [place] | Dx); OME (otitis | | | | Physician's | [address] | media with | | | | Pavilion, 2nd floor | [phone] | effusion), right; | | | | [facility] [place] | | Conductive hearing | | | | [address] | | loss in right ear; | | | | [phone] | | Dizziness; Nausea | +--------+---------+ + [...] No spontaneous nystagmus. Normal head thrust. Normal hfbwry-wb-ykut and rapid alternat ing motion. Negative Romberg. [...] with new audiogram. Windy Rodriguez MD PhD Power And Recovery Supervisor Otology, Neurotology & Skull Base Surgery [...] | | | | | | [place] [address] | | | | | | [phone] | | | | | | | | +--------+ + + + + | 01/10/ | Appointment | Gastroenterology | Guillermo Quach MD | | | 2019 | | | [address] | | | | | | [place] | | | | | | [place] [address] | | | | | | [phone] | | | | | | | | +--------+ + + + + documented as of this encounter Procedures + +--------+ + + + | Procedure Name | Priori | Date/Time | Associated Diagnosis | Comments | | | ty | | | | + +--------+ + + + | GA CREATE EARDRUM | Routin | 04/01/2014 | [...]
--- OUTSIDE RECORDS SUMMARY | ~2019-12-09 | XMS | Encounter Summary ---
Demographics + + + | Address | [address] | | | [place] [address] | + + + | Home Phone [...] [place] | | | | | [address] | | + + + + + | Pratibha Hester | ECON | Unknown | + | + + + + + | Demian Powell | ECON | Unknown | + | + + + + + Care Team Providers + +------+ + | Care Pressure Supervisor Name | Role | Phone | [...] + + | 07/23/ | Telephone | [facility] | Roger Triplett | Other | | 2014 | | PHYSIATRY [address] | TMD [address] | | | | | [address] [facility] [address] | [address] [address] | | | | | [place] | [id number] | | | | | [address] | | | | | | [phone] | | | +--------+ + + + [...] | Office | | MD Michael [address] [place] [address] | | | | Visit | | [address] | | | | | | [place] [address] | | | | | | [phone] | | | | | | | | +--------+ + + + + documented as of this encounter Visit Diagnoses Not on filedocumented in this encounter"
--- OUTSIDE RECORDS SUMMARY | ~2019-12-09 | XMS | Encounter Summary ---
Demographics + + + | Address | [address] | | | [place] [address] | + + + | Home Phone [...] [place] | | | | | [address] | | + + + + + | Pratibha Hester | ECON | Unknown | + | + + + + + | Demian Powell | ECON | Unknown | + | + + + + + Care Team Providers + +------+ + | Care Toaster Element Repairer Name | Role | Phone | [...] | Telephone | [facility] | Sascha Mir, | Appointment | | 2014 | | NEUROSURGERY [address] | DO [address] | | | | | [address] [facility] | [address] [place], [place] | | | | | [place] | [id number] | | | | | [address] | | | | | | [phone] | | | +--------+ + + + [...] | Office | | MD Michael [address] [place] [address] | | | | Visit | | [address] | | | | | | [place] [address] | | | | | | [phone] | | | | | | | | +--------+ + + + + documented as of this encounter Visit Diagnoses Not on filedocumented in this encounter"
--- OUTSIDE RECORDS SUMMARY | ~2019-12-09 | XMS | Encounter Summary ---
Demographics + + + | Address | [address] | | | [place] [address] | + + + | Home Phone [...] [place] | | | | | [address] | | + + + + + | Pratibha Hester | ECON | Unknown | + | + + + + + | Ana Maria Powell | ECON | Unknown | + | + + + + + Care Team Providers + +------+ + | Care Automobile Leasing Supervisor Name | Role | Phone | [...] Procedures | MD [address] | | | | | MRI Lumbar | [address] | [address] [facility] | | | | | Spine wo | [place], | [place] | | | | | Contrast | [place] [address] | [address] | | | | | | Phone: | Phone: | | | | | | [phone] | | | | | | | [phone] Fax: | Fax: | | | | | | | | | | | | | [phone] | | +--------+--------+ + + + + Encounter Details +--------+ + + + + | Date | Type | Department | Care Team | Description | +--------+ + + + + | 09/08/ | Hospital | [facility] | Denilson Jorge | Back pain | | 2012 - | Encounter | MED CTR XRAY [address] | F, [address] | | | | | [place] | [address] [place] | | | 09/10/ | | [place] [address] | [address] | | | 2012 | | [phone] | | | | | | | [...] | Office | | MD Michael [address] | | | | Visit | | [address] | | | | | | [place] [address] | | | | | | [phone] | | | | | | | [...] Performed At | + + + | [facility] | [place] | | Department [address] [place] | [facility] | | [ rep ct [address]] [ rep ct [facility] | | st zip] Signed | - IMAGING | | | | | Patient Name: TURCIOSANA MARIA Olivia Physician: | | | ARRE.01 : 1970 Age: 42 Sex: F Unit #: [id number] | | | Exam Date: 09/08/12 Location: [facility] | | | Report #: [id number] Page: | | | %(RAD)RES..mtdd.print.filter("pg") of %(RAD) | | | RES..mtdd.print.filter("tpg") | | | | | | Accession Number: [id number] | | | UNENHANCED MRI LUMBAR SPINE, [...] Transcribed | | | Date/Time: 09/08/2012 12:56 Blow Molding Machine Operator: | | | <<Signature on File>> | | | Jayden Wyatt | | | MD Rush09/09/12 7045 <Electronically signed by Jayden Beverly MD> | | | Jayden Beverly MD 09/08/12 1234 Blow Molding Machine Operator: | | | Investor [employer] [id number]/01/13 1256 [address] [place], | | | | | + + + + + + + + | Performing | Address | City/State/Zipcode | Phone Number | | Organization | | | | + + + + + | [address] | [address] | [place] | [phone] | | [facility] | | [address] | | | - IMAGING | | | | + + + + + documented in this encounter Visit Diagnoses + + | Diagnosis | + + | Back pain Backache, unspecified | + + documented in this encounter
--- OUTSIDE RECORDS SUMMARY | ~2019-12-09 | XMS | Encounter Summary ---
Demographics + + + | Address | [address] | | | [place] [address] | + + + | Home Phone [...] [place] | | | | | [address] | | + + + + + | Pratibha Hester | ECON | Unknown | + | + + + + + | Demian Powell | ECON | Unknown | + | + + + + + Care Team Providers + +------+ + | Care Civil Cad Designer Name | Role | Phone | + +------+ + PCP | Unavailable | + +------+ + Encounter Details +--------+ + + + + | Date | Type | Department | Care Team | Description | +--------+ + + + + | 09/20/ | Hospital | [facility] | Laz Del [place]le, | | | 2005 | Encounter | MED CTR GENERIC OP | MD [address] | | | | | CONV DEPT [address] | [facility] | | | | | [address] [place], | [place] [address] | | | | | [place] [address] | [phone] | | | | | [phone] | | | +--------+ + + + [...] | Office | | MD Michael [address] | | | | Visit | | [address] | | | | | | [place] [address] | | | | | | [phone] | | | | | | | | +--------+ + + + + documented as of this encounter Visit Diagnoses Not on filedocumented in this encounter"
--- OUTSIDE RECORDS SUMMARY | ~2019-12-09 | XMS | Encounter Summary ---
Demographics + + + | Address | [address] | | | [place] [address] | + + + | Home Phone [...] [place] | | | | | [address] | | + + + + + | Pratibha Hester | ECON | Unknown | + | + + + + + | Demian Powell | ECON | Unknown | + | + + + + + Care Team Providers + +------+ + | Care Dairy Processing Supervisor Name | Role | Phone | [...] [place] | | | | | [address] | [address] | | | | | [phone] | | | +--------+ + + + [...] 2019 | Office | | MD Michael [address] [place] [address] | | | | Visit | | [address] | | | | | | [place] [address] | | | | | | [phone] | | | | | | | | +--------+ + + + + documented as of this encounter Visit Diagnoses Not on filedocumented in this encounter"
--- OUTSIDE RECORDS SUMMARY | ~2019-12-09 | XMS | Encounter Summary ---
Demographics + + + | Address | [address] | | | [place] [address] | + + + | Home Phone [...] [place] | | | | | [address] | | + + + + + | Pratibha Hester | ECON | Unknown | + | + + + + + | Demian Powell | ECON | Unknown | + | + + + + + Care Team Providers + +------+ + | Care Lens Molder Name | Role | Phone | + [...] | | | spondylolist | | [address] | | | | | hesis | | [place], | | | | | Acquired | | [place] [address] | | | | | spondylolist | | Phone: | | | | | hesis | | [phone] | | | | | Procedures | | Fax: | | | | | CO ARTHDSIS | | [phone] | | | | | POST/POSTERO | [...] | | | | | [address] | [address] [place] | | | | | [place] | [address] | | | | | [address] | | | | | | [phone] | | | +--------+ + + + [...] +----+---+ + + | | 0 | Myton | | | | 9 | 43-degrees [...] +----+---+ + + | | 1 | Myton off | | | | 2 | [...] | Office | | MD Michael [address] | | | | Visit | | Ed Lopes | | | | | | [place] [address] | | | | | | [phone] | | | | | | | [...] | | | | | Breath, Starting [facility] 12/12/14 at | | PM PDT | [...] | | | | to Incision, Starting [facility] 12/12/14 | | | | | | [...] | | | | | PRN, Starting [facility] 12/12/14 at 0949, | | AM PDT [...] 11:14 | | | | | Starting [facility] 12/12/14 at 0947, | | AM PDT [...] mg | | | | PRN, Starting [facility] 12/12/14 at 0949, | | 15 9:49 | | | | | Anesthesia Intra-op | | AM PDT | | | | + +-------+ +--------+---+---+ +---+---+ | | | +---+---+ + +-------+ +---------+---+---+ | vasopressin (PITRESSIN) | Given | 12/13/19 | 2 Units | | | | injection Intravenous, PRN, | | 15 11:37 | | | | | Starting [facility] 12/12/14 at 1044, | | AM PDT [...]
--- OUTSIDE RECORDS SUMMARY | ~2019-12-09 | XMS | Encounter Summary ---
Demographics + + + | Address | [address] | | | [place] [address] | + + + | Home Phone [...] Providers + +------+ + | Care Rail Express Clerk Name | Role | Phone | [...] | | | | | ear | [facility], | | | | | Dizziness | Rd | 10th Floor | | | | | Procedures | [place], [place] | [place], [place] | | | | | [address] [place] | [address] | [address] | | | | | BENIGN | Phone: | Phone: | | | | | DISEASE WO | [phone] | [phone] | | | | | DC CT | Fax: | Fax: | | | | | SCAN,ORBIT/S | [phone] | [phone] | | | | | CORY/POST | [...] | | | media, not | | [place], [place] | | | | | specified as | | [address] | | | | | acute or | | Phone: | | | | | chronic | | [phone] | | | | | Conductive | | Fax: | | | | | hearing | | [phone] | | | | | loss, | [...] | | | | [address] | [place], [place] | Dizziness | | | | Physician's | [address] | | | | | Pavilion, 2nd floor | [phone] | | | | | [place], [place] | | | | | | [address] | | | | | | [phone] | | | +--------+---------+ + + + [...] coordinating of care. Windy Rodriguez MD PhD Patient Liaison Otology, Neurotology & Skull Base Surgery documented [...] | | | | | | [place] [address] | | | | | | [phone] | | | | | | | | +--------+ + + + + | 01/10/ | Appointment | Gastroenterology | Guillermo Quach MD | | | 2019 | | | [address] | | | | | | [place], | | | | | | [place] [address] | | | | | | [phone] | | | | | | | [...]
--- OUTSIDE RECORDS SUMMARY | ~2019-12-09 | XMS | Encounter Summary ---
Demographics + + + | Address | [address] | | | [place] [address] | + + + | Home Phone [...] Team Providers + +------+ + | Care Freezer Unloader Name | Role | Phone | [...] at | | | | | | [facility] | | | | | | [address] | | | | | | Mail Code: OC8PM | | | | | | [facility] | | | | | | and Healing, | | | | | | Building [address] | | | | | | [place], [place] | | | | | | [address] | | | | | | [phone] | | | +--------+ + + + [...] | | | | | | [place] [address] | | | | | | [phone] | | | | | | | | +--------+ + + + + | 01/10/ | Appointment | Gastroenterology | Guillermo Quach MD | | | 2019 | | | [address] | | | | | | [place] | | | | | | [place] [address] | | | | | | [phone] | | | | | | | | +--------+ + + + + documented as of this encounter Visit Diagnoses Not on filedocumented in this encounter"
--- OUTSIDE RECORDS SUMMARY | ~2019-12-09 | XMS | Encounter Summary ---
Demographics + + + | Address | [address] | | | [place] [address] | + + + | Home Phone [...] Providers + +------+ + | Care Wire Drawing Setter Name | Role | Phone | [...] floor | | | | | | [place], [place] | | | | | | [address] | | | | | | [phone] | | | +--------+ + + + [...] to mild conductive hearing loss. A speech bookkeeper receptionist threshold was o btained at 30 dB HL and is in good agreement with responses to pure-tone stimuli. Word clau gnition ability was 100% when words were presented at a comfortable level of 65 dB HL. Left Ear: Near normal hearing with a conductive loss below 2000 Hz; mild sensorineural he aring loss at 8000 Hz. A speech bookkeeper receptionist threshold was obtained at 20 dB [...] | | | | | | [place] [address] | | | | | | [phone] | | | | | | | | +--------+ + + + + | 01/10/ | Appointment | Gastroenterology | Guillermo Quach MD | | | 2019 | | | [address] | | | | | | [place], | | | | | | [place] [address] | | | | | | [phone] | | | | | | | | +--------+ + + + + documented as of this encounter Procedures + +--------+ + + + | Procedure Name | Priori | Date/Time | Associated Diagnosis | Comments | | | ty | | | | + +--------+ + + + | CT TYMPANOMETRY | Routin | 08/14/2014 | Conductive hearing | | | | e | 4:03 PM | loss, bilateral | | | | | PST | | | + +--------+ + + + | CT COMPREHENSIVE | Routin | 08/14/2014 | Conductive [...]
--- OUTSIDE RECORDS SUMMARY | ~2019-12-09 | XMS | Encounter Summary ---
Demographics + + + | Address | [address] | | | [place] [address] | + + + | Home Phone [...] | Author | [facility] | | | and [place] | + + + | Organization | [facility] | | | [...] [place] | | | | | [address] | | + + + + + | Pratbiha Hester | ECON | Unknown | + | + + + + + | Demian Powell | ECON | Unknown | + | + + + + + Care Team Providers + +------+ + | Care Production Generalist Name | Role | Phone | + [...] + + | 12/10/ | Telephone | [facility] | Sascha Mir, | Other (surgery | | 2015 | | NEUROSURGERY [address] | DO [address] | reminder ) | | | | [address] | [address] [place], [place] | | | | | [place] | [address] | | | | | [address] | | | | | | [phone] | | | +--------+ + + + [...] | Office | | MD Michael [address] [place] [address] | | | | Visit | | Ed Lopes | | | | | | [place] [address] | | | | | | [phone] | | | | | | | | +--------+ + + + + documented as of this encounter Visit Diagnoses Not on filedocumented in this encounter"
--- OUTSIDE RECORDS SUMMARY | ~2019-12-09 | XMS | Encounter Summary ---
Demographics + + + | Address | [address] | | | [place] [address] | + + + | Home Phone [...] Providers + +------+ + | Care Plant Engineering Supervisor Name | Role | Phone | [...] | | | | [address] | [place], [place] | | | | | Physician's | [address] | | | | | Pavilion, 2nd floor | [phone] | | | | | [place], [place] | | | | | | [address] | | | | | | [phone] | | | +--------+ + + + [...] | | | | | [address] [place], | | | | | | [place] [address] | | | | | | [phone] | | | | | | | | +--------+ + + + + | 01/10/ | Appointment | Gastroenterology | Guillermo Quach MD | | | 2019 | | | [address] | | | | | | [place], | | | | | | [place] [address] | | | | | | [phone] | | | | | | | | +--------+ + + + + documented as of this encounter Visit Diagnoses Not on filedocumented in this encounter"
--- OUTSIDE RECORDS SUMMARY | ~2019-12-09 | XMS | Encounter Summary ---
Demographics + + + | Address | [address] | | | [place] [address] | + + + | Home Phone [...] [place] | | | | | [address] | | + + + + + | Pratibha Hester | ECON | Unknown | + | + + + + + | Demian Powell | ECON | Unknown | + | + + + + + Care Team Providers + +------+ + | Care Rehabilitation Coordinator Name | Role | Phone | [...] NEUROSURGERY [address] | F[address] | FOR SURGERY) | | | | [address] | [address] [address] | | | | | [place] | [address] | | | | | [address] | [phone] | | | | | [phone] | | | +--------+ + + + [...] | Office | | MD Michael [address] [place] [address] | | | | Visit | | Ed Lopes | | | | | | [place] [address] | | | | | | [phone] | | | | | | | | +--------+ + + + + documented as of this encounter Visit Diagnoses Not on filedocumented in this encounter"
--- OUTSIDE RECORDS SUMMARY | ~2019-12-09 | XMS | Encounter Summary ---
Demographics + + + | Address | [address] | | | [place] [address] | + + + | Home Phone [...] Team Providers + +------+ + | Care Tank Calibrator Name | Role | Phone | + +------+ + | Gracie Lewis PA-C | PCP | | + +------+ + Encounter Details +--------+ + + + + | Date | Type | Department | Care Team | Description | +--------+ + + + + | 04/25/ | Documentati | Digestive Health | Clinic, Surgery | | | 2019 | on | Center at [facility] [address] | | | | | | [address] | | | | | | Mailcode: Center | | | | | | for Health and | | | | | | Healing, Building 2 | | | | | | [facility] [place] | | | | | | [address] | | | | | | [phone] | | | +--------+ + + + [...] | | | | | | [place] [address] | | | | | | [phone] | | | | | | | | +--------+ + + + + | 01/10/ | Appointment | Gastroenterology | Guillermo Quach MD | | | 2019 | | | [address] | | | | | | [place] | | | | | | [place] [address] | | | | | | [phone] | | | | | | | | +--------+ + + + + documented as of this encounter Visit Diagnoses Not on filedocumented in this encounter"
--- OUTSIDE RECORDS SUMMARY | ~2019-12-09 | XMS | Encounter Summary ---
Demographics + + + | Address | [address] | | | [place] [address] | + + + | Home Phone [...] [place] | | | | | [address] | | + + + + + | Pratibha Hester | ECON | Unknown | + | + + + + + | Demian Powell | ECON | Unknown | + | + + + + + Care Team Providers + +------+ + | Care Yard Driver Name | Role | Phone | + +------+ + | Quentin Manriquez PA-C | MARCK | | + +------+ + Encounter Details +--------+ + + + + | Date | Type | Department | Care Team | Description | +--------+ + + + + | 12/03/ | Orders Only | [facility] | Sascha Mir, | Status post lumbar | | 2015 | | NEUROSURGERY [address] | DO [address] | spinal fusion | | | | [address] | [address] [place], [place] | (Primary Dx) | | | | [place], [place] | [id number] | | | | | [address] | | | | | | [phone] | | | +--------+ + + + [...] | Office | | MD Michael [address] | | | | Visit | | [address] | | | | | | [place] [address] | | | | | | [phone] | | | | | | | [...] [address] | [place] | [phone] | | [facility] | | [address] | | | - IMAGING | | | | + + + + + documented in this encounter Visit Diagnoses + + | Diagnosis | + + | Status post lumbar spinal fusion - Primary Arthrodesis status | + + documented in this encounter"
--- OUTSIDE RECORDS SUMMARY | ~2019-12-09 | XMS | Encounter Summary ---
Demographics + + + | Address | [address] | | | [place] [address] | + + + | Home Phone [...] [place] | | | | | [address] | | + + + + + | Pratibha Hester | ECON | Unknown | + | + + + + + | Demian Powell | ECON | Unknown | + | + + + + + Care Team Providers + +------+ + | Care Public Relations Consultant Name | Role | Phone | [...] + | 06/11/ | Telephone | [facility] | Sascha Mir, | Other (Med refill) | | 2014 | | NEUROSURGERY [address] | DO [address] | | | | | [address] [facility] | [address] [place] [address] | | | | | [place] | [address] | | | | | [address] | | | | | | [phone] | | | +--------+ + + + [...] | Office | | MD Michael [address] | | | | Visit | | Ed Lopes | | | | | | [place] [address] | | | | | | [phone] | | | | | | | | +--------+ + + + + documented as of this encounter Visit Diagnoses + + | Diagnosis | + + | Nausea - Primary Nausea alone | + + documented in this encounter"
--- OUTSIDE RECORDS SUMMARY | ~2019-12-09 | XMS | Encounter Summary ---
Demographics + + + | Address | [address] | | | [place] [address] | + + + | Home Phone [...] Team Providers + +------+ + | Care Jockey Valet Name | Role | Phone | + [...] | | | | [address] | [place], [place] | | | | | Physician's | [address] | | | | | Pavilion, 2nd floor | [phone] | | | | | [place], [place] | | | | | | [address] | | | | | | [phone] | | | +--------+ + + + [...] | | | | | | [place] [address] | | | | | | [phone] | | | | | | | | +--------+ + + + + | 01/10/ | Appointment | Gastroenterology | Guillermo Quach MD | | | 2019 | | | [address] | | | | | | [place] | | | | | | [place] [address] | | | | | | [phone] | | | | | | | | +--------+ + + + + documented as of this encounter Visit Diagnoses Not on filedocumented in this encounter"
--- OUTSIDE RECORDS SUMMARY | ~2019-12-09 | XMS | Encounter Summary ---
Demographics + + + | Address | [address] | | | [place] [address] | + + + | Home Phone [...] [place] | | | | | [address] | | + + + + + | Pratibha Hester | ECON | Unknown | + | + + + + + | Demian Powell | ECON | Unknown | + | + + + + + Care Team Providers + +------+ + | Care Information Security Engineer Name | Role | Phone | [...] + + | 12/05/ | Office | [facility] | Amol Triplett, | Degenerative disc | | 2014 | Visit | NEUROSURGERY [address] | PA-C [address] | disease, lumbar L4-5 | | | | [address] | [address] [place] | (Primary Dx); 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 CRANIAL NERVES: II: Acuity is [...] Trochanteric bursitis Anemia Anxiety Asthma Heart attack ([facility]) 2009 Migraine Ulcer of the stomach [...] | Office | | MD Michael [address] [place] [address] | | | | Visit | | Ed [place]no | | | | | | [place] [address] | | | | | | [phone] | | | | | | | [...]
--- OUTSIDE RECORDS SUMMARY | ~2019-12-09 | XMS | Encounter Summary ---
Demographics + + + | Address | [address] | | | [place] [address] | + + + | Home Phone [...] Team Providers + +------+ + | Care Protein Scientist Name | Role | Phone | [...] | | | | to excess | [facility] [facility] [place] | Center for | | | | | calories | Health | Health and | | | | | Obesity, | Center [address] | Healing, | | | | | unspecified | | [address] | | | | | | [place] | [place], [place] | | | | | | Way [address] | [address] | | | | | | [address] | Phone: | | | | | | [place], | [phone] | | | | | | [place] [address] | Fax: | | | | | | Phone: | [phone] | | | | | | [phone] | | | | | | | Fax: | | | | | | | [phone] | | + +--------+ + + + + Encounter Details +--------+---------+ + + + | Date | Type | Department | Care Team | Description | +--------+---------+ + + + | 06/27/ | Office | Digestive Health | Pasdera, Eli, | Severe obesity (BMI | | 2019 | Visit | Center at [facility] [address] | >= 40) (HCC) | | | | [facility] | [facility] [address] | (Primary Dx); Type 2 | | | | for Health and | [place], [place] | diabetes mellitus | | | | Healing, [address] | [address] | with other specified | | | | [place], [place] | | complication, with | | | | [address] | | long-term current | | | | [phone] | | 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 (HCC) | [...] of Visit: 1:55 until 2:40 (45 minutes [id number] with patient) SUBJECTIVE: Pt comes in alone. Pt shares she usually skips breakfast but snacks a lot in af ternoons and evenings. Pt shares she eats a lot of pizza and drinks a lot of soda. 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 Will finish in two years. [...] shares she has access gym on the [employer] 24 hr food recall: Pt has a [...] 2 pre-surgery classes. 4. Call or send [employer] message to dietitian with any questions. Contact information was provided. Follow up with dietitian 1-2 weeks after surgery at first post-op visit. Eli Rodas, MS, RDN, CSOWM, LD, CDE [facility] Bariatrics [phone] documented in this e ncounter Plan of [...] | | | | | | [place] [address] | | | | | | [phone] | | | | | | | | +--------+ + + + + | 01/10/ | Appointment | Gastroenterology | Guillermo Quach MD | | | 2019 | | | [address] | | | | | | [place] | | | | | | [place] [address] | | | | | | [phone] | | | | | | | | +--------+ + + + + documented as of this encounter Procedures + +--------+ + + + | Procedure Name | Priori | Date/Time | Associated Diagnosis | Comments | | | ty | | | | + +--------+ + + + | [facility] MNT INITIAL | Routin | 06/27/2019 | [...] | | | | 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 ([facility]) | | + +--------+ + + + [...]
--- OUTSIDE RECORDS SUMMARY | ~2019-12-09 | XMS | Encounter Summary ---
Demographics + + + | Address | [address] | | | [place] [address] | [...] Team Providers + +------+ + | Care Board Hammer Operator Name | Role | Phone | [...] | | | media, not | | [place], [place] | | | | | specified as | | [address] | | | | | acute or | | Phone: | | | | | chronic | | [phone] | | | | | Conductive | | Fax: | | | | | hearing | | [phone] | | | | | loss, | [...] | | | | [address] | [place], [place] | Dx); Conductive | | | | Physician's | [address] | hearing loss in | | | | Pavilion, 2nd floor | [phone] | right ear; Dizziness | | | | [place], [place] | | | | | | [address] | | | | | | [phone] | | | +--------+---------+ + + + [...] me after testing. Windy Rodriguez MD PhD [employer] Roofer Otology, Neurotology & Skull Base Surgery documented [...] | | | | | [place], | | | | | | [place] [address] | | | | | | [phone] | | | | | | | | +--------+ + + + + | 01/10/ | Appointment | Gastroenterology | Guillermo Quach MD | | | 2020 | | | [address] | | | | | | [address] [place] [place], | | | | | | [place] [address] | | | | | | [phone] | | | | | | | | +--------+ + + + + documented as of this encounter Procedures + +--------+ + + + | Procedure Name | Priori | Date/Time | Associated Diagnosis | Comments | | | ty | | | | + +--------+ + + + | SC EAR MICROSCOPY | Routin | 12/05/2014 | [...]
[~2019-12-09 21:48] MED LIST changes: +MOTRIN IB200 M1 PO
--- OUTSIDE RECORDS SUMMARY | 2019-12-09 21:50 | XMS ---
PreManage Notification: ANA MARIA TURCIOS Security Resp Ther Events No recent Security Events currently on file CRITERIA MET - Group Notification CARE PROVIDERS RAMÓN YULISA [facility] 03/14/2018-Current PHONE: Unknown BOLIVAR SAVAGE Physician 03/15/2019-Current PHONE: Unknown Angelo Abrams [facility] 07/10/2018-Current PHONE: [phone] Name Andre Light/[place] 06/11/2019-Current PHONE: [phone] Claudia has no Care Guidelines for this patient. Care History Medical/Surgical 08/09/2019 [facility] \T\middot;\T\nbsp; PATIENT- [facility] ELIGIBLE \T\middot;\T\nbsp; PLEASE REFER PATIENT TO [facility] FOR NON EMERGENT MEDICAL NEEDS. \T\middot;\ T\nbsp; [facility] CAN SEE PATIENTS SAME DAY FOR APTS IF PATIENT CALLS FIRST THING IN THE MORNING. 05/16/2018 [facility] - PATIENT HAS A FOLLOW UP APT WITH DR ABRAMS ON 05/23. - [facility] [place] [facility] NOTATIONS FROM 05/15/18 CLINIC VISIT LISTED UNDER NOTES ON CLAUDIA. 04/18/2018 [facility] - Patient is currently working with Claudette gauge inspector from [facility]- Contact ) if patient is seen in ED. - Claudette has educated patient on diabetic education, but patient is not willing to follow up with further education. - Patient request pain medications at every PCP visit. - Patient has declined mental health evaluation from [facility]. Care Recommendation: - USE EXTREME CAUTION IN GIVING NARCOTICS TO THIS PATIENT. - Avoid Discharge Narcotic prescriptions if at all possible. Please use clinical judgement. E.D. VISIT COUNT (12 MO.) 7 [facility] TOTAL 7 NOTE: Visits indicate total known visits. ED/UCC VISIT TRACKING (12 MO.) 12/09/2019 21:49 [facility] [place] TYPE: Emergency COMPLAINT: - POSSIBLE INFECTION 10/12/2019 16:05 [facility] [place] TYPE: Emergency COMPLAINT: - HEADACHE, FACIAL SWELLING DIAGNOSES: - Headache - Unspecified asthma, uncomplicated - Type 2 diabetes mellitus without complications - Other halfway (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 - Chronic sinusitis, unspecified - Essential (primary) hypertension 09/17/2019 15:52 [facility] [place] TYPE: Emergency COMPLAINT: - PAINFUL URINATION DIAGNOSES: - Personal history of nicotine dependence - Radiographic dye allergy status - Other halfway (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 - Type 2 diabetes mellitus with hyperglycemia - Type 2 diabetes mellitus without complications - Essential (primary) hypertension - Candidiasis of skin and nail - Latex allergy status - 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 - Allergy status to narcotic agent status - Unspecified asthma, uncomplicated - Allergy status to analgesic agent status 08/08/2019 16:38 [facility] [place] TYPE: Emergency COMPLAINT: - SKIN PROBLEM/ DIABETIC DIAGNOSES: - Radiographic dye allergy status - Type 2 diabetes mellitus without complications - Allergy status to analgesic agent status - Latex allergy status - Right lower quadrant pain - Cutaneous abscess of abdominal wall - Essential (primary) hypertension - Other halfway (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 - skilled nursing (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 - Allergy status to other drugs, medicaments and biological sub - Unspecified asthma, uncomplicated - Allergy status to narcotic agent status 06/08/2019 18:40 [facility] [place] TYPE: Emergency COMPLAINT: - CHEST PAIN DIAGNOSES: - Type 2 diabetes mellitus without complications - Allergy status to other drugs, medicaments and biological sub - Unspecified asthma, uncomplicated - Chest pain, unspecified - skilled nursing (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 - Other halfway (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 - Allergy status to narcotic agent status - Essential (primary) hypertension - Radiographic dye allergy status - Latex allergy status 03/14/2019 13:04 [facility] [place] TYPE: Emergency COMPLAINT: - ABD PAIN DIAGNOSES: - 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 - Unspecified asthma, uncomplicated - Allergy status to narcotic agent status - Essential (primary) hypertension - Allergy status to other drugs, medicaments and biological sub - Latex allergy status - Other chest pain - Type 2 diabetes mellitus without complications - Right upper quadrant pain - Personal history of nicotine dependence - Other halfway (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 01/18/2019 16:29 [facility] [place] TYPE: Emergency COMPLAINT: - SOB/PAIN RIGHT ARM DIAGNOSES: - Cramp and spasm - Unspecified asthma, uncomplicated - Allergy status to narcotic agent status - Acquired absence of other specified parts of digestive tract - Essential (primary) hypertension - Allergy status to anesthetic agent status - Radiographic dye allergy status - 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
[2019-12-09] MEDS ORDERED: KEFLEX500 MG PO (22:19)
[2019-12-09] MEDS ORDERED: BACTRIM DS TAB1 EACH PO (22:19)
== END 2019-12-09 22:28 | disposition home or self-care (01) ==
LOC: ED 21:48
DX: L02.215 Cutaneous abscess of perineum (principal); I10 Essential (primary) hypertension; Z88.5 Allergy status to narcotic agent; Z91.040 Latex allergy status; Z91.041 Radiographic dye allergy status; Z79.899 Other long term (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
CPT/HCPCS: 99283

== ENCOUNTER 2020-01-16 07:55 | Day surgery (SDC) | payer OTHER ==
[~2020-01-16] VITALS: Ht 162.6 cm; Wt 99.8 kg
[~2020-01-16 07:55] MED LIST changes: +BACTRIM DS TAB1 EACH PO
[2020-01-16] MEDS ORDERED: CLARITIN10 MG PO (08:20)
[2020-01-16] MEDS ORDERED: TYLENOL325 MG PO (08:23)
--- NOTE | 2020-01-16 10:22 | NUR ---
01/16/20 1022 Sheets,Ora 1018 PT ARRIVED TO PACU ON 6L VIA MASK, PT REACTIVE TO TACTILE STIMULI AND RESP EVEN AND UNLABORED. VSS.
--- NOTE | 2020-01-16 11:35 | NUR ---
PATIENT RETURNS TO DAY SURGERY ON NASAL CANNULA OXYGEN. PATIENT IS AWAKE AND TALKING WITH ME. OXYGEN IS REMOVED. CONTINUOUS PULSE OXIMETER IS PLACED. CALL LIGHT IS WITHIN REACH. ICED WATER IS GIVEN.
--- NOTE | 2020-01-17 08:03 | OR ---
[facility] [address] [place], [place] [address] Signed DATE OF OPERATION: 01/16/2020 SURGEON: Santo Horan MD PREOPERATIVE DIAGNOSIS: Right mid quadrant subcutaneous abdominal wall foreign body (needle tip). POSTOPERATIVE DIAGNOSIS: Right mid quadrant subcutaneous abdominal wall foreign body (needle tip). PROCEDURE: Excision of subcutaneous foreign body. ESTIMATED BLOOD LOSS: None. INDICATIONS: This is a 50-year-old obese diabetic female, who asked to give herself subcutaneous injections of insulin. Little over a year ago, the tip of one of the needles broke off underneath her skin. It was cephalad and slightly lateral to her umbilicus. We brought her to the operating room with the fluoroscopy unit previously and we could not find that, whatsoever. Consequently, withheld an incision. We had her go to OR, x-ray department preoperatively then to localize it, not only with AP and lateral x-rays, but we had used a CT scanner nor we find it nor we localize it, placed a BB over top of it. She presents now to have that removed. I explained to live on the nature of the incision required to remove that in the operating room. She understands there is risk to surgery including, but not limited to bleeding, infection, scarring, change in contour of the skin as well as the inability to locate the foreign body. She had expressed understanding and wished to proceed. PROCEDURE NOTE: I met with Ana Maria in our preop area and we were able to easily see the BB tape to her abdominal wall. We used our pin and made a [place] around that area, so we could keep it localized during our prep. After this, she was taken into the operating room and placed in the supine position under monitored anesthesia care. She was given preoperative antibiotics along with SCDs. We did not give her any subcutaneous heparin. She was prepped and draped in the usual sterile fashion. We injected bupivacaine in the skin and underneath into the subcutaneous tissues. Once again, we could not find it with our fluoroscopy unit. I made a 2.5 to 3 cm transverse elliptical incision involving the skin and underlying subcutaneous adipose tissue. We checked the tissue with our x-ray Electronically Signed By: SANTO HORAN MD 01/17/20 0803 PATIENT NAME: ANA MARIA TURCIOS OPERATIVE REPORT DATE OF : 72 REPORT #: [id number] PHYSICIAN: SANTO HORAN MD PCP: GRACIE SAVAGE REPORT IS CONFIDENTIAL AND NOT TO BE RELEASED WITHOUT AUTHORIZATION [address] [address] Signed with our portable x-ray unit and we could not find a foreign body in that sample. We used the Metzenbaum scissors to cut through that sample and we still could not find it. I could feel a little induration in the cephalad portion of that area and I thought maybe on the CT scan the foreign body was slightly cephalad to the BB as well. We used cautery to go around that area and sure enough we could see the needle tip in our specimen. We then confirmed that with our x-ray unit and we sent the foreign body down to the Pathology Department for confirmation. After this, we irrigated out the wound and we closed the dermis with interrupted 3-0 subcuticular Monocryl sutures. The skin edges were reapproximated with running 6-0 fast absorbing plain gut sutures. Dry gauze and tape were then applied. The Ana Maria was then transferred to her hospital bed and taken into recovery room in stable condition. Santo Horan MD ALB/MODL /[id number] cc: Gracie Savage Copies: GRACIE SAVAGE ~ Electronically Signed By: SANTO HORAN MD 01/17/20 0803 PATIENT NAME: ANA MARIA TURCIOS OPERATIVE REPORT DATE OF : 72 REPORT #: [id number] PHYSICIAN: SANTO HORAN MD PCP: GRACIE SAVAGE REPORT IS CONFIDENTIAL AND NOT TO BE RELEASED WITHOUT AUTHORIZATION
--- NOTE | 2020-01-17 11:08 | EKG ---
[facility] [address] [facility] [place] [address] Signed Normal sinus rhythm Cannot rule out Inferior infarct , age undetermined Abnormal ECG When compared with ECG of 08-JUN-2019 18:43, No significant change was found Confirmed by JOSSIE MCLEAN MD ([id number]) on 01/17/2020 11:08:08 AM Electronically Signed By: JOSSIE MCLEAN MD 01/17/20 1108 PATIENT NAME: ANA MARIA TURCIOS Electrocardiogram DATE OF : 72 PHYSICIAN: JOSSIE MCLEAN MD REPORT #: [id number] REPORT IS CONFIDENTIAL AND NOT TO BE RELEASED WITHOUT AUTHORIZATION
[2020-01-17] MEDS ORDERED: ONDANSETRON ODT8 MG PO (17:04)
--- NOTE | 2020-01-18 12:19 | PATH ---
[facility] [address] [place], [place] [address] Signed SPECIMEN(S): A FOREIGN BODY SPECIMEN SOURCE: A. FOREIGN BODY CLINICAL HISTORY: Subcutaneous foreign body, anterior abdominal wall. FINAL PATHOLOGIC DIAGNOSIS: Subcutaneous foreign body, anterior abdominal wall, removal: - Needle-shaped metallic foreign body with attached fibroadipose tissue, as described below (gross examination only). NAL:smn:C2NR GROSS DESCRIPTION: The specimen, labeled "LH, foreign body," is received in formalin and consists of needle-like piece of metal that measures 0.8 cm in length and less than 0.1 cm in diameter. The metal is attached to yellow-love, fibroadipose tissue that measures 0.7 cm in greatest dimension. Specimen is submitted for gross exam only. JS (under the direct supervision of a pathologist) The Gross Description was prepared using a voice recognition system. The report was reviewed for accuracy; however, sound-alike word errors, addition and/or deletions may occur. If there is any question about this report, please contact Client Services. PERFORMING LABORATORY: The technical component was performed by [facility], [address] [place] [id number] (Revenue Stamper: Soniya Lau MD; CLIA# [id number]). [facility], [address] [place] [id number] (CLIA# [id number]). Diagnostician: Bessie Lombardo MD Pathologist Electronically Signed 01/18/2020 Copies: PATIENT NAME: ANA MARIA TURCIOS PATHOLOGY DATE OF : 72 REPORT #: [id number] PHYSICIAN: WANDER CONTRERAS PCP: BOLIVAR SAVAGE REPORT IS CONFIDENTIAL AND NOT TO BE RELEASED WITHOUT AUTHORIZATION [address] [address] Signed ~ PATIENT NAME: ANA MARIA TURCIOS PATHOLOGY DATE OF : 72 REPORT #: [id number] PHYSICIAN: WANDER PATHOLOGY PCP: BOLIVAR SAVAGE REPORT IS CONFIDENTIAL AND NOT TO BE RELEASED WITHOUT AUTHORIZATION
== END 2020-01-16 12:40 | disposition home or self-care (01) ==
LOC: DS 07:55
PROVIDERS: Colon & Rectal Surgery
PROC: 0JC80ZZ Extirpation of Matter from Abdomen Subcutaneous Tissue and Fascia, Open Approach (ICD-10-PCS; principal; 2020-01-16 08:30)
DX: S30.851A Superficial foreign body of abdominal wall, initial encounter (principal); I10 Essential (primary) hypertension; E11.9 Type 2 diabetes mellitus without complications; K21.9 Gastro-esophageal reflux disease without esophagitis; D64.9 Anemia, unspecified; Z79.899 Other long term (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; Z87.891 Personal history of nicotine dependence; Z79.4 Long term (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; W45.8XXA Other foreign body or object entering through skin, initial encounter
CPT/HCPCS: 00400; 74018; 88300; 93005; 93010; J0690; J1815; J2001; J2250; J2704; J3010; J7121

== ENCOUNTER 2020-01-17 14:43 | Emergency (ER) | payer OTHER ==
[~2020-01-17] VITALS: Ht 162.6 cm; Wt 99.8 kg
--- NOTE | ~2020-01-17 | EKG ---
[facility] [address] [place], [place] [address] Draft EK completed, results pending confirmation PATIENT NAME: ANA MARIA TURCIOS Electrocardiogram DATE OF : 72 PHYSICIAN: PRELIMINARY REPORT #: [id number] REPORT IS CONFIDENTIAL AND NOT TO BE RELEASED WITHOUT AUTHORIZATION
--- OUTSIDE RECORDS SUMMARY | 2020-01-17 14:48 | XMS ---
PreManage Notification: ANA MARIA TURCIOS Security Proc Tech Events No recent Security Events currently on file CRITERIA MET - Group Notification - PDMP CARE PROVIDERS YULISA MELGAR [facility] 03/14/2018-Current PHONE: Unknown BOLIVAR SAVAGE Physician 03/15/2019-Current PHONE: Unknown Angelo Abrams [facility] 07/10/2018-Current PHONE: [phone] Name Andre Light/[place] 06/11/2019-Current PHONE: [phone] Claudia has no Care Guidelines for this patient. Care History Medical/Surgical 08/09/2019 [facility] \T\middot;\T\nbsp; PATIENT- [facility] ELIGIBLE \T\middot;\T\nbsp; PLEASE REFER PATIENT TO [facility] FOR NON EMERGENT MEDICAL NEEDS. \T\middot;\ T\nbsp; [facility] CAN SEE PATIENTS SAME DAY FOR APTS IF PATIENT CALLS FIRST THING IN THE MORNING. 05/16/2018 [facility] - PATIENT HAS A FOLLOW UP APT WITH DR ABRAMS ON 05/23. - [facility] [place] [facility] NOTATIONS FROM 05/15/18 CLINIC VISIT LISTED UNDER NOTES ON CLAUDIA. 04/18/2018 [facility] - Patient is currently working with Claudette TOBARlemon picker from [facility]- Contact ) if patient is seen in ED. - Claudette has educated patient on diabetic education, but patient is not willing to follow up with further education. - Patient request pain medications at every PCP visit. - Patient has declined mental health evaluation from [facility]. Care Recommendation: - USE EXTREME CAUTION IN GIVING NARCOTICS TO THIS PATIENT. - Avoid Discharge Narcotic prescriptions if at all possible. Please use clinical judgement. E.D. VISIT COUNT (12 MO.) 8 [facility] TOTAL 8 NOTE: Visits indicate total known visits. ED/UCC VISIT TRACKING (12 MO.) 01/17/2020 14:45 [facility] [place] TYPE: Emergency COMPLAINT: - MULTIPLE COMPLAINTS 12/09/2019 21:49 [facility] [place] TYPE: Emergency COMPLAINT: - POSSIBLE INFECTION DIAGNOSES: - Essential (primary) hypertension - Cutaneous abscess of perineum - Allergy status to narcotic agent status - Radiographic dye allergy status - Cutaneous abscess of perineum - Other usp (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 - Latex allergy status 10/12/2019 16:05 [facility] [place] TYPE: Emergency COMPLAINT: - HEADACHE, FACIAL SWELLING DIAGNOSES: - Headache - Unspecified asthma, uncomplicated - Type 2 diabetes mellitus without complications - Other usp (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 - Chronic sinusitis, unspecified - Essential (primary) hypertension 09/17/2019 15:52 [facility] [place] TYPE: Emergency COMPLAINT: - PAINFUL URINATION DIAGNOSES: - Personal history of nicotine dependence - Radiographic dye allergy status - 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 - Type 2 diabetes mellitus with hyperglycemia - Type 2 diabetes mellitus without complications - Essential (primary) hypertension - Candidiasis of skin and nail - Latex allergy status - halfway (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 - Allergy status [...] wall - Essential (primary) hypertension - Other usp (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 - regional 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 truck driver (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 - Allergy status to other drugs, medicaments and biological sub - Unspecified asthma, uncomplicated - Allergy status to narcotic agent status 06/08/2019 18:40 [facility] [place] TYPE: Emergency COMPLAINT: - CHEST PAIN DIAGNOSES: - Type 2 diabetes mellitus without complications - Allergy status to other drugs, medicaments and biological sub - Unspecified asthma, uncomplicated - Chest pain, unspecified - halfway (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 - 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 - Allergy status to narcotic agent status - Essential (primary) hypertension - Radiographic dye allergy status - Latex allergy status 03/14/2019 13:04 [facility] [place] TYPE: Emergency COMPLAINT: - ABD PAIN DIAGNOSES: - halfway (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 - Unspecified asthma, uncomplicated - Allergy status to narcotic agent status - Essential (primary) hypertension - Allergy status to other drugs, medicaments and biological sub - Latex allergy status - Other chest pain - Type 2 diabetes mellitus without complications - Right upper quadrant pain - Personal history of nicotine dependence - 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 01/18/2019 16:29 [facility] [place] TYPE: Emergency COMPLAINT: - SOB/PAIN RIGHT ARM DIAGNOSES: - Cramp and spasm - Unspecified asthma, uncomplicated - Allergy status to narcotic agent status - Acquired absence of other specified parts of digestive tract - Essential (primary) hypertension - Allergy status to anesthetic agent status - Radiographic dye allergy status - 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
[2020-01-17] MEDS ORDERED: ONDANSETRON ODT8 MG PO (17:04)
== END 2020-01-17 17:22 | disposition home or self-care (01) ==
LOC: ED 14:43
DX: E11.65 Type 2 diabetes mellitus with hyperglycemia (principal); R53.1 Weakness; I10 Essential (primary) hypertension; Z87.891 Personal history of nicotine dependence; Z88.8 Allergy status to other drugs, medicaments and biological substances; Z91.040 Latex allergy status; Z88.5 Allergy status to narcotic agent; Z91.041 Radiographic dye allergy status; Z79.899 Other long term (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; Z79.4 Long term (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
CPT/HCPCS: 80053; 83735; 84484; 85025; 93005; 93010; 96374; 96375; 99284-25; J1815; J2060; J2405; J7030

== ENCOUNTER 2020-02-24 17:35 | Emergency (ER) | payer OTHER ==
[~2020-02-24] VITALS: Ht 162.6 cm; Wt 99.8 kg
[~2020-02-24 17:35] MED LIST changes: +ONDANSETRON ODT8 MG PO
--- NOTE | 2020-02-25 10:27 | EKG ---
[facility] [address] [place] [address] Signed Normal sinus rhythm Normal ECG When compared with ECG of 17-JAN-2020 15:49, No significant change was found Confirmed by JERI JORDAN MD ([id number]) on 02/25/2020 10:27:31 AM Electronically Signed By: JERI JORDAN MD 02/25/20 1027 PATIENT NAME: ANA MARIA TURCIOS Electrocardiogram DATE OF : 72 PHYSICIAN: JERI JORDAN MD REPORT #: [id number] REPORT IS CONFIDENTIAL AND NOT TO BE RELEASED WITHOUT AUTHORIZATION
== END 2020-02-24 21:17 | disposition home or self-care (01) ==
LOC: ED 17:35
DX: R07.89 Other chest pain (principal); I10 Essential (primary) hypertension; Z88.8 Allergy status to other drugs, medicaments and biological substances; Z91.040 Latex allergy status; Z88.5 Allergy status to narcotic agent; Z91.041 Radiographic dye allergy status; Z79.899 Other long term (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; Z79.4 Long term (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
CPT/HCPCS: 71046; 80053; 83690; 83735; 84484; 85025; 85379; 93005; 93010; 99285-25

== ENCOUNTER 2020-04-02 17:42 | Inpatient (IN) | payer OTHER ==
[~2020-04-02] VITALS: Ht 162.6 cm; Wt 101.2 kg
--- OUTSIDE RECORDS SUMMARY | ~2020-04-02 | XMS | Encounter Summary ---
Demographics + + + | Address | [address] | | | [place] [address] | + + + | Home Phone | | + + + | Preferred Language | Unknown | + + + | Marital Status | Single | + + + | Christianity Affiliation | 1041 | + + + | Race | White | + + + | Ethnic Group | Not or | + + + Author + + + | Author | [facility] | | | and [place] | + + + | Organization | [facility] | | | and [place] | + + + | Address | Unknown | + + + | Phone | Unavailable | + + + Support + + + + + | Name | Relationship | Address | Phone | + + + + + | Uche Nina | ECON | [address] | + | | | | [place] | | | | | [address] | | + + + + + | Pratibha Hester | ECON | Unknown | + | + + + + + | Demian Powell | ECON | Unknown | + | + + + + + Care Team Providers + +------+ + | Care Suede Cleaner Name | Role | Phone | + +------+ + | Quentin Manriquez PA-C | MARCK | | + +------+ + Reason for Referral Evaluate & Treat (Routine) +--------+ + + + + + | Status | Reason | Specialty | Diagnoses / | Referred By | Referred To | | | | | Procedures | Contact | Contact | +--------+ + + + + + | Closed | Specialty | Physical | Diagnoses | Clarke, | Ioana, | | | Services | Medicine and | Lumbar | Sascha Armendariz DO | Roger Ennis MD | | | Required | Rehabilitatio | radicular | [address] | [address] | | | | n | pain | [address] | [facility] | | | | | Cervical | [place], [place] | [place], [place] | | | | | radicular | [address] | [address] Phone: | | | | | pain | Phone: | [phone] | | | | | | [phone] | Fax: | | | | | | Fax: | [phone] | | | | | | [phone] | | +--------+ + + + + + Reason for Visit + + + | Reason | Comments | + + + | Follow-up | Back pain | + + + Encounter Details +--------+---------+ + + + | Date | Type | Department | Care Team | Description | +--------+---------+ + + + | 06/04/ | Office | [facility] | Sascha Mir, | Spondylolisthesis, | | 2014 | Visit | NEUROSURGERY [address] | DO [address] | lumbar region | | | | [address] | [address], [place] | (Primary Dx); S/P | | | | [place] | [address] | lumbar fusion; | | | | [address] | | Lumbar radicular | | | | [phone] | | pain; Cervical | | | | | | radicular pain | +--------+---------+ + + + Social History + + + +--------+ + | Tobacco Use | Types | Packs/Day | Years | Date | | | | | Used | | + + + +--------+ + | Former Smoker | Cigarettes | 0.5 | 2 | Quit: 04/18/2010 | + + + +--------+ + + +---+---+---+ | Smokeless Tobacco: | | | | | Never Used | | | | + +---+---+---+ + + +---------+ + | Alcohol Use | Drinks/Week | oz/Week | Comments | + + +---------+ + | No | | | | + + +---------+ + + + + | Sex Assigned at | Date Recorded | | | | + + + | Not on file | | + + + documented as of this encounter Last Filed Vital Signs + + + + + | Vital Sign | Reading | Time Taken | Comments | + + + + + | Blood Pressure | 132/82 | 06/04/2015 11:17 AM | | | | | PDT | | + + + + + | Pulse | 80 | 06/04/2015 11:17 AM | | | | | PDT | | + + + + + | Temperature | - | - | | + + + + + | Respiratory Rate | 18 | 06/04/2015 11:17 AM | | | | | PDT | | + + + + + | Oxygen Saturation | - | - | | + + + + + | Inhaled Oxygen | - | - | | | Concentration | | | | + + + + + | Weight | 117.9 kg (260 lb) | 06/04/2015 11:17 AM | | | | | PDT | | + + + + + | Height | 167.6 cm (5' 6") | 06/04/2015 11:17 AM | | | | | PDT | | + + + + + | Body Mass Index | 41.97 | 06/04/2015 11:17 AM | | | | | PDT | | + + + + + documented in this encounter Patient Instructions Patient Instructions Sascha Mir DO - 06/04/2015 11:53 AM PDTPlease undergo x-rays of the cervical and lumbar spine. Please follow-up with Dr. Triplett for a consultation and nerve conduction study. Please follow-up with me after. 11 :54 AM PDT documented in this encounter Progress Notes Sascha Mir DO - 06/04/2015 11:54 AM PDTFormatting of this note might be different fro m the original. Sascha Mir DO [address] [facility], [address] [place], [place] [id number] FAX: NEUROSURGERY FOLLOW-UP CHIEF COMPLAINT: Chief Complaint Patient presents with Follow-up Back pain HISTORY OF PRESENT ILLNESS: The patient is a 45 y.o. female that had a TLIF L5-S1 by me fo r back and leg pain around 5 months ago . She returns and overall is doing fairly well. Th e patient complains of continued back pain and right leg pain. Her left leg pain from before surgery is somewhat improved. She also complains of bilateral arm pain since surgery. This is intermittent and radiates from her neck down into both hands, left worse than right. The patient is still taking narcotics for pain management. The patient has been walking as dir ected and has tried to remain active. Overall, the patient is not pleased with her [facility] ent. PAST MEDICAL HISTORY: Past Medical History Diagnosis Date Morbid obesity (HCC) Diabetes mellitus (HCC) Multiple allergies Chronic back pain Gastric reflux Anemia Asthma Peptic ulcer Pelvic inflammatory disease Spondylolisthesis of lumbar region Pars defect of lumbar spine Trochanteric bursitis Anemia Anxiety Asthma Heart attack (HCC) 2010 Migraine Ulcer of the stomach and intestine Adverse effect of anesthesia trouble with itching & shortness of breath after anesthesia. PONV (postoperative nausea and vomiting) PAST SURGICAL HISTORY: Past Surgical History Procedure Laterality Date Tonsillectomy Adenectomy Shoulder surgery Cholecystectomy section, low transverse 1995 section, low transverse 2005 Lumbar laminectomy N/A 12/12/2014 Procedure: L5-S1 Transforaminal Lumbar Interbody Fusion; Surgeon: Sascha Mir, DO; L ocation: [facility] OR CURRENT MEDICATIONS: Current Outpatient Prescriptions Medication Sig Dispense Refill ALBUTEROL SULFATE IN NEBU; 1-2 puffs every 3-4 hours as needed ASCORBIC ACID PO Take 1 tablet by mouth Daily. Cholecalciferol (VITAMIN D PO) Take 1 tablet by mouth Daily. diazepam (VALIUM) 5 mg tablet Take 1 tablet by mouth every 6 hours as needed (muscle sp asm). 60 tablet 0 guaiFENesin (ROBITUSSIN) 100 mg/5 mL SOLN Take 200 mg by mouth every 4 hours as needed. lisinopril (PRINIVIL, ZESTRIL) 10 mg tablet Take 2.5 mg by mouth Daily. Loratadine (CLARITIN) 10 MG CAPS Take by mouth Daily. methocarbamol (ROBAXIN) 750 mg tablet Take 1-2 tablets by mouth every 6 hours as needed for Muscle spasms for up to 10 days. 90 tablet 3 montelukast (SINGULAIR) 10 mg tablet Take 10 mg by mouth nightly. ondansetron (ZOFRAN ODT) 4 mg disintegrating tablet Take 1 tablet by mouth every 8 hour s as needed for Nausea. 20 tablet 0 oxyCODONE-acetaminophen (PERCOCET) 10-325 mg per tablet Take 1 tablet by mouth every 6 hours as needed for Pain. 120 tablet 0 No current facility-administered medications for this visit. ALLERGIES: Allergies Allergen Reactions Ethyl Chloride Anaphylaxis Had ingrown toenail removed last year. Several hours after procedure, patient developed a naphylaxis. Believed to be from ethyl chloride spray, per patient. Procainamide Hcl Anaphylaxis Allergic to anesthetics Anesthetics, Ludmila Itching Allergic to anesthetics - reports throat swelling, itching Latex Itching Morphine Itching and Rash Povidone Iodine Swelling and Other (See Comments) Throat swelling and difficulty breathing Hydromorphone Itching SOCIAL HISTORY: The patient reports that she quit smoking about 5 years ago. Her smoking use included Ciga rettes. She has a 1 pack-year smoking history. She has never used smokeless tobacco. She rep orts that she does not drink alcohol or use illicit drugs. FAMILY HISTORY: Family History Problem Relation Age of Onset Stroke Sister Other (See Comment) Sister passed in her sleep unsure of cause Mental illness Sister Alcohol abuse Other Seizures Sister Heart failure Father Heart failure Sister Diabetes Sister Hypertension Mother Arthritis Mother Renal Failure Sister Arthritis Sister Asthma Daughter Asthma Son INTERIM PHYSICAL EXAMINATION: Blood pressure 132/82, pulse 80, resp. rate 18, height 1.676 m (5' 6"), weight 117.935 kg ( 260 lb), not currently . Body mass index is 41.99 kg/(m^2). GENERAL: Demian Nina is in no acute distress with unlabored respirations. SPINE: The patient s incisions are healing well without drainage, significant erythema, o r discharge EXTREMITIES: No lower extremity edema. NEUROLOGICAL EXAMINATION: MENTAL STATUS: The patient is awake, alert, and oriented. She follows simple and complex commands MOTOR EXAM: Motor strength is 4+/5. This is diminished from the preoperative exam. SENSORY EXAM: The sensory examination slightly improved from the preoperative exam in the l eft leg. New left arm dysesthesia. REFLEXES: Reflexes are unchanged from her preoperative history and physical. RADIOGRAPHIC REVIEW: The patient s postoperative x-rays show stable instrumentation and alignment and were rev iewed with the patient today. There have been no interval changes since the immediate posto perative films. Complete fusion has yet occurred, but this is normal and would not be expec elle at this time. MRI of the cervical spine from 04/03/15 demonstrate loss of cervical lordosis. There is no s ignificant stenosis. MRI of the lumbar spine from 04/03/15 demonstrates postoperative changes at L5-S1. There is improvement of spondylolisthesis. There is still lateral recess and foraminal stenosis that is improved from before surgery. ASSESSMENT: S/P TLIF L5-S1: Encounter Diagnoses Name Primary? Spondylolisthesis, lumbar region Yes S/P lumbar fusion Lumbar radicular pain Cervical radicular pain Past Medical History Diagnosis Date Morbid obesity (HCC) Diabetes mellitus ([facility]) Multiple allergies Chronic back pain Gastric reflux Anemia Asthma Peptic ulcer Pelvic inflammatory disease Spondylolisthesis of lumbar region Pars defect of lumbar spine Trochanteric bursitis Anemia Anxiety Asthma Heart attack ([facility]) 2009 Migraine Ulcer of the stomach and intestine Adverse effect of anesthesia trouble with itching & shortness of breath after anesthesia. PONV (postoperative nausea and vomiting) PLAN: Overall, the patient is doing better. This was discussed with the patient today. I have i ncreased the patient s activities further, and I would like the patient to continue to adv ance with activities as tolerated and as directed. Given the continued arm and leg symptoms with equivocal imaging, I will refer her to Dr. Orville garvin for consultation to include nerve conduction study if he agrees this is appropriate . I will also order x-rays of the cervical and lumbar spine. She will undergo repeat x-ray of the back in 6 months and follow-up with me as needed after that. ELECTRONICALLY SIGNED BY: Sascha Mir DO, 06/04/2015 12:00 documented in this encounter Plan of Treatment + + +--------+ + + | Name | Type | Priori | Associated Diagnoses | Order Schedule | | | | ty | | | + + +--------+ + + | * [facility] [place] | Outpatient | Routin | Lumbar radicular | Ordered: 06/04/2015 | | Physiatry - AMB | Referral | e | pain Cervical | | | Referral | | | radicular pain | | + + +--------+ + + documented as of this encounter Procedures + +--------+ + + + | Procedure Name | Priori | Date/Time | Associated Diagnosis | Comments | | | ty | | | | + +--------+ + + + | IMAGING REPORT - | | 10/04/2016 | | Results for this | | EXTERNAL SCAN | | 12:00 AM | | procedure are in the | | | | PST | | results section. | + +--------+ + + + documented in this encounter Results IMAGING REPORT - EXTERNAL SCAN (10/04/2016 12:00 AM PST) + + + | Narrative | Performed At | + + + | Ordered by an | | | unspecified provider. | | + + + XR Lumbar Spine 4 + Vw (06/04/2015 12:53 PM PDT) + + | Specimen | + + | | + + + + + | Narrative | Performed At | + + + | LUMBAR SPINE: 06/04/2015 12:53 PM CLINICAL HISTORY: S/p lumbar | [facility] | | fusion COMPARISON: 03/17/2015 FINDINGS: Upright AP lateral and | [facility] | | lateral flexion-extension views of the lumbar spine. Posterior | [facility] | | pedicle screw and nayan and interbody fusion at L5-S1. Fixation | - IMAGING | | components are intact and show stable position and configuration. | | | Alignment is normal and is normally maintained in flexion and | | | extension. Vertebral body heights are normal. Anterior osteophytes | | | at T12-L1. Stable sclerosis at L5-S1. No acute bony abnormality. No | | | adjacent soft tissue. IMPRESSION - Stable L5-S1 posterior and | | | interbody fusion. No radiographic demonstration of instability. | | | Dictated and Signed by: Mark Ren MD Electronically signed: | | | 06/04/2015 3:03 PM | | + + + + + | Procedure Note | + + | Cedric, Rad Results In - 06/04/2015 3:06 PM PDT LUMBAR SPINE: 06/04/2015 12:53 PM | | | | CLINICAL HISTORY: S/p lumbar fusion | | | | COMPARISON: 03/17/2015 | | | | FINDINGS: Upright AP lateral and lateral flexion-extension views of the lumbar | | spine. | | | | Posterior pedicle screw and nayan and interbody fusion at L5-S1. Fixation | | components are intact and show stable position and configuration. Alignment is | | normal and is normally maintained in flexion and extension. | | | | Vertebral body heights are normal. Anterior osteophytes at T12-L1. Stable | | sclerosis at L5-S1. No acute bony abnormality. No adjacent soft tissue. | | | | IMPRESSION - Stable L5-S1 posterior and interbody fusion. No radiographic | | demonstration of instability. | | | | Dictated and Signed by: Mark Ren MD | | Electronically signed: 06/04/2015 3:03 PM | + + + + + + + | Performing | Address | City/State/Zipcode | Phone Number | | Organization | | | | + + + + + | [facility] | [address] | [place] | [phone] | | [facility] | | [address] | | | - IMAGING | | | | + + + + + XR Cervical Spine 4 or 5 Vws (06/04/2015 12:52 PM PDT) + + | Specimen | + + | | + + + + + | Narrative | Performed At | + + + | CERVICAL SPINE: 06/04/2015 12:51 PM CLINICAL HISTORY: Cervical | [facility] | | radiculopathy COMPARISON: MRI cervical spine 04/03/2015 | [facility] | | FINDINGS: Upright AP, lateral and lateral flexion-extension views of [facility] | | the cervical spine. Spine is imaged to C7. Straightening of the | - IMAGING | | normal cervical lordosis with no focal loss of alignment. Facet | | | joints are normally aligned. No loss of alignment in flexion or | | | extension. Vertebral body heights are normal. Disc interspaces are | | | well maintained. Small amount of soft tissue calcification anterior | | | to the C5-C6 disc interspace. No other bony degenerative change. | | | No radiographic soft tissue abnormality. IMPRESSION - Small amount | | | soft tissue calcification anterior to the C5-C6 disc interspace. | | | Otherwise negative study of the cervical spine. No radiographic | | | demonstration of instability. Dictated and Signed by: Mark | | | MD Mikal Electronically signed: 06/04/2015 3:01 PM | | + + + + + | Procedure Note | + + | Cedric, Rad Results In - 06/04/2015 3:04 PM PDT CERVICAL SPINE: 06/04/2015 12:51 PM | | | | CLINICAL HISTORY: Cervical radiculopathy | | | | COMPARISON: MRI cervical spine 04/03/2015 | | | | FINDINGS: Upright AP, lateral and lateral flexion-extension views of the | | cervical spine. | | | | Spine is imaged to C7. Straightening of the normal cervical lordosis with no | | focal loss of alignment. Facet joints are normally aligned. No loss of alignment | | in flexion or extension. | | | | Vertebral body heights are normal. Disc interspaces are well maintained. Small | | amount of soft tissue calcification anterior to the C5-C6 disc interspace. No | | other bony degenerative change. | | | | No radiographic soft tissue abnormality. | | | | IMPRESSION - Small amount soft tissue calcification anterior to the C5-C6 disc | | interspace. Otherwise negative study of the cervical spine. No radiographic | | demonstration of instability. | | | | Dictated and Signed by: Mark Ren MD | | Electronically signed: 06/04/2015 3:01 PM | + + + + + + + | Performing | Address | City/State/Zipcode | Phone Number | | Organization | | | | + + + + + | [facility] | [address] | [place] | [phone] | | [facility] | | [address] | | | - IMAGING | | | | + + + + + documented in this encounter Visit Diagnoses + + | Diagnosis | + + | Spondylolisthesis, lumbar region - Primary | + + | S/P lumbar fusion Arthrodesis status | + + | Lumbar radicular pain Thoracic or lumbosacral neuritis or radiculitis, unspecified | + + | Cervical radicular pain Brachial neuritis or radiculitis nos | + + documented in this encounter
--- OUTSIDE RECORDS SUMMARY | ~2020-04-02 | XMS | Encounter Summary ---
Demographics + + + | Address | [address] | | | [place] [address] | + + + | Home Phone | | + + + | Preferred Language | Unknown | + + + | Marital Status | Single | + + + | Scientology Affiliation | CAT | + + + | Race | Unknown | + + + | Ethnic Group | Not or | + + + Author + + + | Author | [facility] | + + + | Organization | [facility] | + + + | Address | Unknown | + + + | Phone | Unavailable | + + + Support + + +---------+ + | Name | Relationship | Address | Phone | + + +---------+ + | Alisia Nina | ECON | Unknown | | + + +---------+ + Care Team Providers + +------+ + | Care Plant Maintenance Worker Name | Role | Phone | + +------+ + | Gracie Lewis PA-C | PCP | | + +------+ + Encounter Details +--------+ + + + + | Date | Type | Department | Care Team | Description | +--------+ + + + + | 04/26/ | Documentati | Digestive Health | Clinic, Surgery | | | 2019 | on | Center at [facility] [address] | | | | | | [address] [facility] | | | | | | for Health and | | | | | | Healing, [address] | | | | | | [place], [place] | | | | | | [address] | | | | | | [phone] | | | +--------+ + + + + Social History + +-------+ +--------+------+ | Tobacco Use | Types | Packs/Day | Years | Date | | | | | Used | | + +-------+ +--------+------+ | Former Smoker | | | | | + +-------+ +--------+------+ + +---+---+---+ | Smokeless Tobacco: | | [...] + + documented as of this encounter Plan of Treatment Not on filedocumented as of this encounter Visit Diagnoses Not on filedocumented in this encounter"
--- OUTSIDE RECORDS SUMMARY | ~2020-04-02 | XMS | Encounter Summary ---
Demographics + + + | Address | [address] | | | [place] [address] | + + + | Home Phone | | + + + | Preferred Language | Unknown | + + + | Marital Status | Single | + + + | Yarsani Affiliation | CAT | + + + | Race | Unknown | + + + | Ethnic Group | Not or | + + + Author + + + | Author | [facility] | + + + | Organization | [facility] | + + + | Address | Unknown | + + + | Phone | Unavailable | + + + Support + + +---------+ + | Name | Relationship | Address | Phone | + + +---------+ + | Alisia Nina | ECON | Unknown | | + + +---------+ + Care Team Providers + +------+ + | Care Brace Maker Name | Role | Phone | + +------+ + | Gracie Lewis PA-C | PCP | | + +------+ + Encounter Details +--------+ + + + + | Date | Type | Department | Care Team | Description | +--------+ + + + + | 12/23/ | Operator [employer] Warfare | Digestive Health | Jeanna Sandhu, | | | 2019 | | Center at [facility] [address] | MD [address] | | | | | [address] | [facility] [place] | | | | | for Health and | [address] | | | | | Healing, [address] | [phone] | | | | | [place], [place] | | | | | | [address] | | | | | | [phone] | | | +--------+ + + + [...]
--- OUTSIDE RECORDS SUMMARY | ~2020-04-02 | XMS | Encounter Summary ---
Demographics + + + | Address | [address] | | | [place] [address] | + + + | Home Phone | | + + + | Preferred Language | Unknown | + + + | Marital Status | Single | + + + | Latter-Day Affiliation | 1041 | + + + [...] | + + + + + | Uhce Nina | ECON | [address] | + | | | | [place] | | | | | [address] | | + + + + + | Pratibha Hester | ECON | Unknown | + | + + + + + | Demian Powell | ECON | Unknown | + | + + + + + Care Team Providers + +------+ + | Care Registered Appraiser Name | Role | Phone | + +------+ + | Gracie Lewis PA-C | PCP | | + +------+ + Reason for Visit + +--------+ + | Reason | Onset | Comments | | | Date | | + +--------+ + | Medication Refill | 06/02/ | | | | 2014 | | + +--------+ + Encounter Details +--------+--------+ + + + | Date | Type | Department | Care Team | Description | +--------+--------+ + + + | 06/02/ | Refill | [facility] [place] | Amol Triplett, | Medication Refill | | 2014 | | NEUROSURGERY [address] | PA-C [address] | | | | | [address] | [address] | | | | | [place], [place] | [place] [address] | | | | | [address] | [phone] | | | | | [phone] | | | +--------+--------+ + + + Social History + + [...]
--- OUTSIDE RECORDS SUMMARY | ~2020-04-02 | XMS | Encounter Summary ---
Demographics + + + | Address | [address] | | | [place] [address] | + + + | Home Phone | | + + + | Preferred Language | Unknown | + + + | Marital Status | Single | + + + | Jewish Affiliation | 1041 | + + + | Race | White | + + + | Ethnic Group | Not or | + + + Author + + + | Author | [facility] | | | and [place] | + + + | Organization | [facility] | | | and [...] [place] | | | | | [address] | | + + + + + | Pratibha Hester | ECON | Unknown | + | + + + + + | Demian Powell | ECON | Unknown | + | + + + + + Care Team Providers + +------+ + | Care Fabric Pattern Grader Name | Role | Phone | + +------+ + | Jannette Boyle PA-C | PCP | | + +------+ + Encounter Details +--------+ + + + + | Date | Type | Department | Care Team | Description | +--------+ + + + + | 09/27/ | Orders Only | [facility] | Sascha Mir, | Back pain, | | 2017 | | NEUROSURGERY [address] | DO [address] | unspecified back | | | | [address] | [address] [place], [place] | location, | | | | [place], [place] | [address] | unspecified back | | | | [address] | | pain laterality, | | | | [phone] | | unspecified | | | | | | chronicity (Primary | | | | | | Dx) | +--------+ + + + + Social [...] as of this encounter Plan of Treatment + +---------+--------+ + + | Name | Type | Priori | Associated Diagnoses | Order Schedule | | | | ty | | | + +---------+--------+ + + | XR Lumbar Spine 4 + | Imaging | Routin | Back Pain, | Expected: | | Vw | | e | Unspecified Back | 09/27/2016, Expires: | | | | | Location, | 09/27/2017 | | | | | Unspecified Back | | | | | | Pain Laterality, | | | | | | Unspecified | | | | | | Chronicity | | + +---------+--------+ + + documented as of this encounter Visit Diagnoses + + | Diagnosis | + + | Back pain, unspecified back location, unspecified back pain laterality, unspecified | | chronicity - Primary | + + documented in this encounter"
--- OUTSIDE RECORDS SUMMARY | ~2020-04-02 | XMS | Encounter Summary ---
Demographics + + + | Address | [address] | | | [place] [address] | + + + | Home Phone | | + + + | Preferred Language | Unknown | + + + | Marital Status | Single | + + + | Anglican Affiliation | CAT | + + + | Race | Unknown | + + + | Ethnic Group | Not or | + + + Author + + + | Author | [facility] | + + + | Organization | [facility] | + + + | Address | Unknown | + + + | Phone | Unavailable | + + + Support + + +---------+ + | Name | Relationship | Address | Phone | + + +---------+ + | Alisia Nina | ECON | Unknown | | + + +---------+ + Care Team Providers + +------+ + | Care Stacker And Sorter Operator Name | Role | Phone | + +------+ + | Gracie Lewis PA-C | PCP | | + +------+ + Encounter Details +--------+ + + + + | Date | Type | Department | Care Team | Description | +--------+ + + + + | 12/24/ | Green Marketer | Digestive Health | Jeanna Sandhu, | Suspected 2018 novel | | 2019 | | Center at [facility] [address] | MD [address] | coronavirus | | | | [address] | [place], [place] | infection (Primary | | | | for Health and | [address] | Dx) | | | | Healing, Building [address] | [phone] | | | | | [place], [place] | | | | | | [address] | | | | | | [phone] | | | +--------+ + + + [...] filedocumented as of this encounter Visit Diagnoses + + | Diagnosis | + + | Suspected 2019 novel coronavirus infection - Primary | + + documented in this encounter"
--- OUTSIDE RECORDS SUMMARY | ~2020-04-02 | XMS | Encounter Summary ---
Demographics + + + | Address | [address] | | | [place] [address] | + + + | Home Phone | | + + + | Preferred Language | Unknown | + + + | Marital Status | Single | + + + | Christian Affiliation | CAT | + + + | Race | Unknown | + + + | Ethnic Group | Not or | + + + Author + + + | Author | [facility] | + + + | Organization | [facility] | + + + | Address | Unknown | + + + | Phone | Unavailable | + + + Support + + +---------+ + | Name | Relationship | Address | Phone | + + +---------+ + | Alisia Nina | ECON | Unknown | | + + +---------+ + Care Team Providers + +------+ + | Care Equipment Services Associate Name | Role | Phone | + +------+ + | Gracie Lewis PA-C | PCP | | + +------+ + Reason for Visit + +--------+ + | Reason | Onset | Comments | | | Date | | + +--------+ + | Telephone follow-up | 01/09/ | follow up call | | | 2020 | | + +--------+ + Encounter Details +--------+ + + + + | Date | Type | Department | Care Team | Description | +--------+ + + + + | 01/09/ | Telephone | Digestive Health | Jeanna Sandhu Daisy, | Telephone follow-up | | 2020 | | Center at [facility] [address] | MD [address] | (follow up call) | | | | [address] | [place], [place] | | | | | for Health and | [address] | | | | | [facility] | [phone] | | | | | [place], [place] | | | | | | [address] | | | | | | [phone] | | | +--------+ + + + [...] + + + + + + | COVID-19 Exposure | Response | Date Recorded | + + + + | In the last month, have you been in contact | No / Unsure | 01/09/2020 6:28 AM | | with someone who was confirmed or | | PDT | | suspected to have Coronavirus / COVID-19? | | | + + + + documented as of this encounter Miscellaneous Notes Telephone Encounter - Eloisa Mcpherson - 01/10/2020 8:32 AM PDTCalled patient to see how th ey were doing following their GI Procedure on 01/09/20. Left message for patient to review their written discharge instructions call [phone] i f they had any questions or concerns. Explained that their referring provider would receive a copy of their procedure report with in the next week and they would receive a letter with results from any biopsies that may hav e been taken. documented in this encoun ter Plan of Treatment Not on filedocumented as of this encounter Visit Diagnoses Not on filedocumented in this encounter"
--- OUTSIDE RECORDS SUMMARY | ~2020-04-02 | XMS | Encounter Summary ---
Demographics + + + | Address | [address] | | | [place] [address] | + + + | Home Phone | | + + + | Preferred Language | Unknown | + + + | Marital Status | Single | + + + | Nondenominational Affiliation | 1041 | + + + | Race | White | + + + | Ethnic Group | Not or | + + + Author + + + | Author | [facility] | | | and [place] | + + + | Organization | [facility] | | | [...] [place] | | | | | [address] | | + + + + + | Pratibha Hester | ECON | Unknown | + | + + + + + | Demian Powell | ECON | Unknown | + | + + + + + Care Team Providers + +------+ + | Care [place] Police Lieutenant Name | Role | Phone | + +------+ + | Derick Mclaughlin PA-C | PCP | | + +------+ + Reason for Visit +--------+--------+ + | Reason | Onset | Comments | | | Date | | +--------+--------+ + | Other | 09/29/ | AUTHORIZATION FOR SURGERY | | | 2012 | | +--------+--------+ + Encounter Details +--------+ + + + + | Date | Type | Department | Care Team | Description | +--------+ + + + + | 09/29/ | Telephone | [facility] | Denilson Jorge | Other (AUTHORIZATION | | 2012 | | NEUROSURGERY [address] | [facility] | FOR SURGERY) | | | | [address] | [address] [address] | | | | | [place] | [address] | | | | | [address] | [phone] | | | | [phone] | | | +--------+ + + + [...] this encounter Miscellaneous Notes Telephone Encounter - Natalie Noonan - 10/02/2012 11:07 AM PSTI spoke with Randa to verify wh at was being requested. They did approve Demian to have surgery but they need an up to date referral placed for Demian to be seen in our office. I spoke with Bouchra at Dr. Mclaughlin's off ice who will be placing this today with [place]'s insurance. Natalie elephone Encounter - El Arias - 09/29/2012 8:53 AM PSTDawbeatriz from [facility] called to give surgery authorization Authorization #: [id number] Valid dates:09/20/12-12/18/12 with up to a 3 night in patient stay Codes Authorized: [id number] They do not have a official referral in office and they do need a referral from the patient 's PCP. This is mandatory after 10/05/2012. She was made aware that the providers's assistan t is out of office until Tuesday10/02/12.Electronically signed by El Arias at 3 9:00 AM PSTdocumented in this encounter Plan of Treatment Not on filedocumented as of this encounter Visit Diagnoses Not on filedocumented in this encounter"
--- OUTSIDE RECORDS SUMMARY | ~2020-04-02 | XMS | Encounter Summary ---
Demographics + + + | Address | [address] | | | [place] [address] | + + + | Home Phone | | + + + | Preferred Language | Unknown | + + + | Marital Status | Single | + + + | Evangelical Affiliation | CAT | + + + | Race | Unknown | + + + | Ethnic Group | Not or | + + + Author + + + | Author | [facility] | + + + | Organization | [facility] | + + + | Address | Unknown | + + + | Phone | Unavailable | + + + Support + + +---------+ + | Name | Relationship | Address | Phone | + + +---------+ + | Alisia Nina | ECON | Unknown | | + + +---------+ + Care Team Providers + +------+ + | Care Speeder Frame Tender Name | Role | Phone | + [...] | | | | hearing loss | MD [address] | | | | | in right | [address] | [address] [facility] | | | | | ear | [facility], | | | | | Dizziness | Rd | 10th Floor | | | | | Procedures | [place], [place] | [place], [place] | | | | | [place] | [address] | [address] | | | | | BENIGN | Phone: | Phone: | | | | | DISEASE WO | [phone] | [phone] | | | | | [address] | Fax: | Fax: | | | | | SCAN,ORBIT/S | [phone] | [phone] | | | | | CORY/POST | | | | | | | FOSSA/EAR,W/ | [...] | | | | tube | | Physician's | | | | | Nonsuppurati | | Pavilion, 2nd | | | | | ve otitis | | floor | | | | | media, not | | [place], [place] | | | | | specified as | | [address] | | | | | acute or | | Phone: | | | | | chronic | | [phone] | | | | | Conductive | | Fax: | | | | | hearing | | [phone] | | | | | loss, | [...] Description | +--------+---------+ + + + | 01/07/ | Office | Otolaryngology | Radha Mcleanh | Conductive hearing | | 2015 | Visit | Otology Services at | MD [address] | loss in right ear | | | | [facility] [address] | (Primary Dx); | | | | [address] | [place], [place] | Dizziness | | | | Physician's | [address] | | | | | Pavilion, 2nd floor | [phone] | | | | | [place], [place] | | | | | | [address] | | | | | | [phone] | | | +--------+---------+ + + + [...] coordinating of care. Windy Rodriguez MD PhD Powersaw Supervisor Otology, Neurotology & Skull Base Surgery [...] OLIVIER, | | | | | | MYRIAMuthor: GIORGIO | | | | | | [...] Final/Electronically | | | | | | brian / GIORGIO | | | | | [...] | | + +---------+ + + | [facility] DEPARTMENT OF | | | | | [...]
--- OUTSIDE RECORDS SUMMARY | ~2020-04-02 | XMS | Encounter Summary ---
Demographics + + + | Address | [address] | | | [place] [address] | + + + | Home Phone | | + + + | Preferred Language | Unknown | + + + | Marital Status | Single | + + + | Faith Affiliation | 1041 | + + + | Race | White | + + + | Ethnic Group | Not or | + + + Author + + + | Author | [facility] | | | and [place] | + + + | Organization | [facility] | | | [...] [place] | | | | | [address] | | + + + + + | Pratibha Hester | ECON | Unknown | + | + + + + + | Demian Powell | ECON | Unknown | + | + + + + + Care Team Providers + +------+ + | Care Promotions Team Leader Name | Role | Phone | + +------+ + PCP | Unavailable | + +------+ + Encounter Details +--------+ + + + + | Date | Type | Department | Care Team | Description | +--------+ + + + + | 09/20/ | Hospital | [facility] | Laz Del Valle, | | | 2005 | Encounter | MED CTR GENERIC OP | MD [address] | | | | | CONV DEPT [address] | [address] | | | | | [place], | [place] [address] | | | | | [place] [address] | [phone] | | | | | [phone] | | | +--------+ + + + + Social History + +-------+ +--------+------+ | Tobacco Use | Types | Packs/Day | Years | Date | | | | | Used | | + +-------+ +--------+------+ | Never Assessed | | | | | + +-------+ +--------+------+ + + + | Sex Assigned at | Date Recorded | | | | + + + | Not on file | | + + + documented as of this encounter Plan of Treatment Not on filedocumented as of this encounter Visit Diagnoses Not on filedocumented in this encounter"
--- OUTSIDE RECORDS SUMMARY | ~2020-04-02 | XMS | Encounter Summary ---
Demographics + + + | Address | [address] | | | [place] [address] | + + + | Home Phone [...] Author + + + | Author | [facility] | | | and [place] | + + + | Organization | [facility] | | | [...] [place] | | | | | [address] | | + + + + + | Pratibha Hester | ECON | Unknown | + | + + + + + | Demian Powell | ECON | Unknown | + | + + + + + Care Team Providers + +------+ + | Care Paint Roller Cover Machine Setter Name | Role | Phone | + +------+ + | Quentin Manriquez PA-C | MARCK | | + +------+ + Reason for Visit +--------+--------+ + | Reason | Onset | Comments | | | Date | | +--------+--------+ + | Other | 05/06/ | MRI | | | 2014 | | +--------+--------+ + Encounter Details +--------+ + + + + | Date | Type | Department | Care Team | Description | +--------+ + + + + | 05/06/ | Telephone | [facility] [place] | Sascha Mir, | Other (MRI ) | | 2014 | | NEUROSURGERY [address] | DO [address] | | | | | [facility] | [address] [place], [place] | | | | | [place] | [id number] | | | | | [address] | | | | | | [phone] | | | +--------+ + + + [...] encounter Miscellaneous Notes Telephone Encounter - Elina Noonan Cert MA - 05/14/2015 1:51 PM PDTI let Demian know that she does not need a new MRI at this time. She will see Dr. Mir next week. ELINA NOONAN elephone Elina Lerner Cert MA - 05/14/2015 9:48 AM PDTI called and let Crystal know at [facility] that Demian does not need an MRI at this time. left for Demian requesting a call back. ELINA NOONAN elephone Sascha Pearson DO - 05/14/2015 7:02 AM PDTNo MRI with contrast needed. Let's just hav e her follow-up with me please. Thanks. elephone Haydee Villa - 05/13/2015 11:12 AM PDTPatient called Regarding status of MRI. L et her know that Dr. Mir is out of town and she will be contacted as soon as Dr. Clarke russo. elephone Elina Lerner M, Cert MA - 05/12/2015 4:08 PM PDTI returned the call to crystal. They wan t to know if Dr. Mir is okay with ordering an MRI with contrast because the patient canno t have the CT myelogram as she is allergic to Iodine. Please advise. ELINA NOONAN [facility]phone [facility] 05/12/2015 3:45 PM PDTMicefrain from [facility] imaging department called earnest leigh that she was told by the patients PCP office that they are waiting on us before Demian can complete the MRI, please advise. Crystal would like a call back [phone] signed by Madiha Schilling at 12/2014 3:47 PM PDTTelephone Encounter - Lois Brown RN - 05/06/2015 3:06 PM [facility] from March was sent to [facility]. Dr. Mejía "spoke with a neuro rad and they are recommending an MRI with gadolinium as the next step. The CT myelo gram was not done." Dr. Mejía's number is [phone] if there are any questions about this . Please advise elepho ne Encounter - Elina Noonan Cert MA - 05/06/2015 10:43 AM PDTDanielle called today from [facility] stating that Dr. Mir spoke with Dr. Mejía this morning about Dr. Mir ordering an MRI lumbar spine with and without contrast vs the CT myelogram as previous planned. This will require PA with Yoselyn. Please advise if it's okay to order this study. She will also need medication for claustrophobia. Please advise. ELINA NOONAN documented in this encounter Plan of Treatment Not on filedocumented as of this encounter Visit Diagnoses Not on filedocumented in this encounter
--- OUTSIDE RECORDS SUMMARY | ~2020-04-02 | XMS | Encounter Summary ---
Demographics + + + | Address | [address] | | | [place] [address] | + + + | Home Phone | | + + + | Preferred Language | Unknown | + + + | Marital Status | Single | + + + | Congregation Affiliation | 1041 | + + + | Race | White | + + + | Ethnic Group | Not or | + + + Author + + + | Author | [facility] | | | and [place] | + + + | Organization | [facility] | | | [...] [place] | | | | | [address] | | + + + + + | Pratibha Hester | ECON | Unknown | + | + + + + + | Demian Powell | ECON | Unknown | + | + + + + + Care Team Providers + +------+ + | Care Rn Charge Name | Role | Phone | + +------+ + | Gracie Lewis PA-C | PCP | | + +------+ + Reason for Visit + +--------+ + | Reason | Onset | Comments | | | Date | | + +--------+ + | Medication Refill | 05/23/ | | | | 2014 | | + +--------+ + Encounter Details +--------+--------+ + + + | Date | Type | Department | Care Team | Description | +--------+--------+ + + + | 05/23/ | Refill | [facility] [place] | Sascha Mir, | Medication Refill | | 2014 | | NEUROSURGERY [address] | DO [address] | | | | | [address] | [address] [place], [place] | | | | | [place] | [address] | | | | | [address] | | | | | | [phone] | | | +--------+--------+ + + + [...]
--- OUTSIDE RECORDS SUMMARY | ~2020-04-02 | XMS | Encounter Summary ---
Demographics + + + | Address | [address] | | | [place] [address] | + + + | Home Phone | | + + + | Preferred Language | Unknown | + + + | Marital Status | Single | + + + | Muslim Affiliation | CAT | + + + [...] Team Providers + +------+ + | Care Funeral Pre Arrangement Specialist Name | Role | Phone | + +------+ + | Gracie Lewis PA-C | PCP | | + +------+ + Reason for Visit + + + | Reason | Comments | + + + | New Patient Visit | | + + + Physical Therapy (Routine) +--------+--------+ + + + + | Status | Reason | Specialty | Diagnoses / | Referred By | Referred To | | | | | Procedures | Contact | Contact | +--------+--------+ + + + + | Closed | | Physical | Diagnoses | Berna | Daniel [facility] | | | | Therapy | Morbid | Dipesh Gross, | [address] | | | | | obesity | AGACNP [address] | | | | | (HCC) | [address] | for Health | | | | | Procedures | [place], | and Healing, | | | | | PHYSICAL | [place] | [address], | | | | | THERAPY | [address] | 1st Floor | | | | | REFERRAL | Phone: | [place], [place] | | | | | | [phone] | [address] | | | | | | Fax: | Phone: | | | | | | [phone] | [phone] | | | | | | | Fax: | | | | | | | [phone] | +--------+--------+ + + + + Encounter Details +--------+---------+ + + + | Date | Type | Department | Care Team | Description | +--------+---------+ + + + | 06/27/ | Office | [facility] | Edith Gil, | Morbid obesity (HCC) | | 2019 | Visit | Therapy Services at | PT,DPT [address] | (Primary Dx) | | | | [facility] | [facility] [place] | | | | | [address] | [address] | | | | | [facility] | | | | | | and Healing, | | | | | | [address] | | | | | | [place], [place] | | | | | | [address] | | | | | | [phone] | | | +--------+---------+ + + + [...] + + documented as of this encounter Patient Instructions Patient Instructions Edith Gil, PT,DPT - 06/27/2019 11:45 AM PSTFormatting of this no te might be different from the original. Pre-Rehabilitation for Bariatric Surgery Goals: 30 minutes of aerobic exercise per day, at least 5 days of the week. Aerobic exercise in cludes walking, biking, swimming, walking in the pool, etc. This can be continuous or broken up into 2 x 15 minutes or 3 x 10 minutes Strengthening program 3x per week While exercising, use the scale below to help monitor your exercise intensity. Your target is 2-4/10 with all exercise. If you are having a hard time talking that is a sign your are w orking too hard. Slow down and rest. If your activity level feels very light, increase your speed, resistance or repetitions. Rate of Perceived Exertion (RPE) Scale 0 Nothing at all 1 Very light 2 Fairly light 3 Moderate Increased effort but able to maintain a conversation 4 Somewhat hard 5 Hard/Strong/Heavy 6 7 Very Hard 8 9 10 Maximal effort Abdominal precautions after surgery After surgery you will have the follow abdominal precautions for 2-6 weeks or until cleared by your surgeon. These precautions will impact your daily activities. Review these precauti ons and plan what support you will need after surgery. No bending at stomach No twisting at stomach No lifting or pushing more than 5-10 pounds How Your Precautions Affect Everyday Activities Dressing: Complete dressing while seated for safety Use cross-legged technique to don pants/socks/shoes (bring opposite leg over opposite kn ee) Put underwear and pants both on, then stand up and pull both up over hips together Use adaptive equipment to assist with lower body dressing Showering/Hygiene/Grooming Set up environment (soap & shampoo in one spot at or higher than waist level) to avoid b ending, lifting or twisting Use a shower chair and a long-handled sponge to be able to safely wash your legs and pre vent falls No bending at waist to shave legs while standing It may be easiest to complete wiping in standing Cooking/Grocery Shopping No bending down into bottom cabinets, fridge, or pantry. Have family members move regula rly used items up to waist height No lifting, pushing or pulling more than 1 gallon of milk (8 pounds) No carrying grocery bags more than 10 pounds No lifting multiple items (I.e. Dishes, pots, pans) at one time Other Activities No vacuuming No lifting small children or pets No bending to load windows phone developer No carrying laundry basket No bending to scrub floor or tub No bending or twisting to put on seatbelt Remember, if you are carrying something close to your body that weighs 10 pounds, it will w eigh more than 10 pounds if held farther away from your body. THE LOGROLL BACK INTO BED The goal of using the log roll is to protect your trunk and avoid excessive twisting or str ain on the abdominal and back muscles. If you have abdominal or back surgery, it will help p rotect the work performed. If you are simply having pain or difficulty with getting in and o ut of bed it can be a good option to protect yourself by moving in a slow, controlled manner that reduces the stress put on your body. PART 1: Going from sitting edge of bed to side-lying 1. Sit down on the edge of your bed, high up towards the head of the bed so that your hips are where you want them to end up once you are laying down. 2. Scoot your bottom back onto bed so that the backs of your knees are touching the mattres s. 3. Make sure that you are sitting straight (square) on the side of the bed. 4. Before you try to lie down, make sure that you keep both of your hands IN FRONT of you s o that you don't twist. 5. Lower slowly down onto your side using both of your arms to lower yourself while lifting one leg at a time up onto the bed. 6. Stay on your side. PART 2: Going from side-lying onto your back 1. Lay on your side for 3-5 seconds 2. Bend your knees and roll onto your back keeping hips and shoulders lined up with each ot her the whole time (no twisting). documented in this encounter Progress Notes Edith Gil PT, DPT - 06/27/2019 11:45 AM PST Insurance: Payor: [facility] [place] / Plan: [facility] [place] / Product Type: Medicaid / Non-Medicare [facility] PHYSICAL THERAPY EVALUATION Past Medical History: Diagnosis Date Abdominal pain Anxiety Chest pain Diabetes mellitus (HCC) Fainting Gallstones Gastric ulcer GERD (gastroesophageal reflux disease) Hx of degenerative disc disease Irregular periods Kidney disease Liver disease N&V (nausea and vomiting) Past Surgical History Procedure Laterality Date Rotator cuff surgery Cholecystectomy C section C section Current Outpatient Medications: lisinopril 10 mg oral tablet, Take 10 mg by mouth once yonis y., Disp: , Rfl: loratadine 10 mg oral capsule, Take by mouth., Disp: , Rfl: METFORMIN HCL (METFORMIN ORAL), Take by mouth., Disp: , Rfl: Mometasone 220 mcg (30 doses) inhalation aerosol powdr breath activated, Inhale 1 puff once daily., Disp: , Rfl: montelukast 10 mg oral tablet, Take 10 mg by mouth once daily in the evening., Disp: , Rfl: naphazoline-pheniramine 0.025-0.3 % ophthalmic drops, 1 drop four times daily as needed., D isp: , Rfl: omeprazole 20 mg oral capsule,delayed release(DR/EC), Take 20 mg by mouth once daily., Disp : , Rfl: ondansetron ODT 4 mg oral tablet,disintegrating, Take 4 mg by mouth every twelve hours as n eeded., Disp: , Rfl: oxycodone, immediate release, 5 mg Oral Tablet, Take 1 Tab by mouth every six hours as need ed., Disp: 30, Rfl: 0 pantoprazole 40 mg oral tablet,delayed release (DR/EC), Take 40 mg by mouth once daily., Di sp: , Rfl: peg-electrolyte 236-22.74-6.74 -5.86 gram oral recon soln, Take 6000ml total (1.5 jugs) by mouth starting on the day prior to colonoscopy as directed by [facility]. Discard remaining half jug. Indications: Bowel Evacuation, Disp: 8000 mL, Rfl: 0 terbinafine 250 mg oral tablet, Take 250 mg by mouth once daily., Disp: , Rfl: Previous physical therapy treatment or alternative treatments for this condition includes: diet, exercise. Results of previous treatment: Not effective. Concurrent medical treatment: Bariatric surgical program. SUBJECTIVE: 06/27/2019 History of Presenting Problems: Demian is a 49 y.o. person here for pre-op appointment for b [facility] surgical program. Activity limitations and participation restrictions: none Patient's Activity and participation goal(s) with therapy: learn what to do to have surgery Current functional Status: Pain Reported in location of low back pain on the right side. Is achy when working or exerc ise, left leg pain. Has some cramping in legs- not sure what it's from but has been going on for a year Pain is a 5 on a scale of 0-10 The following activities aggravate the pain: lifting. The pain is relieved by exercise Sleep: Patient's sleep is occasionally interrupted by the pain. Currently sleeps 7-8 hours per night and does not wake rested. Current Physical Activity: walking up and down stairs all day at work, physically demanding job Barriers to exercise: money, motivation Equipment at home: Has some bands Gym access: yes- likes gyms Home Set Up: stairs Assistance for ADLs/IADLs: independent Social support: community health nurse Stress level: high. 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 Score 06/27/2019 30 sec sit to stand 49 y.o. Normal values; 41 y/o = 25 reps 16 reps, without use of UEs 6 min walk test 49 y.o. 40-49 yo: female 2178' Significant change is ~ > 170 ft Distance: 1270 (06/27/19 1200) Pre Walk Vitals Pulse: 87 (06/27/19 1200) BP: 117/67 (06/27/19 1200) SpO2: 97 % (06/27/19 1200) Post Walk Vitals Pulse: 113 (06/27/19 1200) BP: 131/72 (06/27/19 1200) SpO2: 96 % (06/27/19 1200) 58% Predicted distance TREATMENT TODAY: Evaluation, Therapeutic Exercise Treatment: Established home program with handout as listed below: Treatment: Patient education on >150 minutes of physical activity in a week. Broken into 10 minute se ssions for a total of 30 minutes a day Patient education on using Rate of Perceived Exertion scale Patient education on abdominal precautions Patient education on Log roll technique Strength training: Access Code: [email or web address] URL: [email or web address] Date: 06/27/2019 Prepared by: Dennise Gil Exercises Sitting bicep curl - 8-12 reps - 2 sets - 1x daily - 3x weekly Seated Elbow Extension with Self-Anchored Resistance - 8-12 reps - 2 sets - 1x daily - 3x w eekly Standing Row with Anchored Resistance - 8-12 reps - 2 sets - 1x daily - 3x weekly Seated Eccentric Abdominal Lean Back - 8-12 reps - 2 sets - 1x daily - 3x weekly Sit to Stand without Arm Support - 8-12 reps - 2 sets - 1x daily - 3x weekly Standing Hip Abduction - 8-12 reps - 2 sets - 1x daily - 3x weekly Standing Heel Raise with Support - 8-12 reps - 2 sets - 1x daily - 3x weekly Intervention Date Comments Progressive walking program 06/27/2019 General light strengthening/stretching exercises 06/27/2019 Logroll instruction 06/27/2019 Abdominal precautions instruction 06/27/2019 06/27/2019 ASSESSMENT: Patient is a 49 y.o. person referred to PT for prehabilitation evaluation prior to Bariatric abdominal surgery. Patient exam findings include decreased functional strength, decreased activity tolerance a nd physical deconditioning. Pt scored at 58% predicted distance in 6 Minute Walk Test as compared to age and gender mat ched normative values, indicating deficits in aerobic endurance. Patient has been provided instruction on appropriate exercise and pain control strategies t o increase aerobic PA to prepare for major bariatric abdominal surgery. Anticipate adherence to home program will be fair. Patient requires services that can be safely and effectively performed only by a qualified therapist to address the following problems and achieve the following goals: Goals: recheck 08/26/2019 to 09/25/2019 Goal: set 06/27/2019 Status Pt will show improvement in 30-second sit to stand to age and gender appropriate level Pt will show improvement in 6 minute walk test by at least 170 ft, representing clinical an d functional improvement in endurance Pt will report improvement in PSFS by at least 3 points in individual item or 2 points in a verage, indicating clinical improvement in function. Pt will participate in 30 minutes of aerobic activity, 5 days per week Pt will perform strength training 3 times per week Plan: Follow up with new referral as needed, no further formal PT services required at this time. See topics above to identify problem areas and goals Personal factors/Comorbidities: Musculoskeletal and Height/Weight BMI Communication: Mod erate or low health literacy based on description of illness and expected healing and Limite d eye contact, Psychosocial: Atypical affect, High 3+ Body structures & functions, Activity limitations, participation restrictions: Musculoskele lisa and Posture Work/school and Recreational sport Moderate - 3 or more Stability of condition: Pre-op status with uncertain recovery course Moderate - Evolving Clinical decision making: Pre-op status with uncertain recovery course Moderate - Moderate complexity Complexity: Moderate - 52910 The patient requires services that can be safely and effectively performed only by a qualif ied therapist to address the aforementioned and highlighted problems and goals. Goals discussed and agreed upon with patient and/or family. Individual cultural and social needs addressed. Rehab Potential: Good, if Demian carries through with home exercise program. This note is to serve as the discharge summary if the patient fails to attend further Physi jigar Therapy appointments or contact the therapist regarding any change in their status. Edith Gil PT, DPT [facility] AT [facility] Scheduled Appointment time: 11:45 AM The patient was seen for a total of 40 minutes of treatment time. 40 minutes was in direct contact care as described above and on completed flow sheets. Treatment Interventions duration in minutes: Procedure:Physical Therapy Evaluation Authorization information for first visit and progress reports Procedure Codes: Re-evaluation 66041, Therapeutic Exercise 03719, Manual Therapy 95891, Th erapeutic Activities 39016, Neuromuscular Reeducation 07968, Gait Training 03198 and Self-ca re ADL 35030 Minutes per session: 45 Total number of visits: 1 Frequency: discharge Duration: n/a (must exceed or match Medicare service period request) Service period from: 06/27/2019 to: - (Medicare must match duration or be no greater than 90 days if proposed duration is greater than 3 months) Start of care: 06/27/2019 Referral information Authorizing Provider: DIPESH RIDLEY [[id number]] Onset/Referral Date: 05/03/19 Primary/Referral Diagnosis: No diagnosis found. Next progress report 08/26/2019 Insurance: Payor: [facility] [place] / Plan[place] [facility] [place] / Product Type: Medicaid / Number visits authorized: 1 Number visits used: 1 Outcome Measure 06/27/2019 Activity 1 (3 point increase is significant for any one activity): 5 (Lose weight) Activity 2: 5 (walk 2.5 miles per day) . documented in thi s encounter Plan of Treatment Not on filedocumented as of this encounter Visit Diagnoses + + | Diagnosis | + + | Morbid obesity (HCC) - Primary Morbid obesity | + + documented in this encounter
--- OUTSIDE RECORDS SUMMARY | ~2020-04-02 | XMS | Encounter Summary ---
Demographics + + + | Address | [address] | | | [place] [address] | + + + | Home Phone | | + + + | Preferred Language | Unknown | + + + | Marital Status | Single | + + + | Buddhist Affiliation | CAT | + + + | Race | Unknown | + + + | Ethnic Group | Not or | + + + Author + + + | Author | [facility] | + + + | Organization | [facility] | + + + | Address | Unknown | + + + | Phone | Unavailable | + + + Support + + +---------+ + | Name | Relationship | Address | Phone | + + +---------+ + | Alisia Nina | ECON | Unknown | | + + +---------+ + Care Team Providers + +------+ + | Care Administrative Support Technician Name | Role | Phone | + +------+ + | Soniya Sinha [facility] | PCP | | + +------+ + Encounter Details +--------+ + + + + | Date | Type | Department | Care Team | Description | +--------+ + + + + | 10/03/ | Lamp Cleaner | Otolaryngology | Windy Mclean | Dizziness (Primary | | 2013 | | Otology Services at | MD [place] [address] | Dx); Hearing loss | | | | [facility] [address] | | | | | [address] | [facility] [place] | | | | | Physician's | [address] | | | | | Pavilion, 2nd floor | [phone] | | | | | [facility] [place] | | | | | | [address] | | | | | | [phone] | | | +--------+ + + + [...] + | Diagnosis | + + | Dizziness - Primary Dizziness and giddiness | + + | Hearing loss | + + documented in this encounter"
--- OUTSIDE RECORDS SUMMARY | ~2020-04-02 | XMS | Encounter Summary ---
Demographics + + + | Address | [address] | | | [place] [address] | + + + | Home Phone [...] Author + + + | Author | [facility] | | | and [place] | + + + | Organization | [facility] | | | [...] [place] | | | | | [address] | | + + + + + | Pratibha Hester | ECON | Unknown | + | + + + + + | Demian Powell | ECON | Unknown | + | + + + + + Care Team Providers + +------+ + | Care Tin Roofer Name | Role | Phone | + +------+ + PCP | Unavailable | + +------+ + Encounter Details +--------+ + + + + | Date | Type | Department | Care Team | Description | +--------+ + + + + | 05/23/ | Hospital | [facility] | | | | 1999 | Encounter | [facility] | | | | | | [address] | | | | | | [place] | | | | | | [address] | | | | | | [phone] | | | +--------+ + + + [...]
--- OUTSIDE RECORDS SUMMARY | ~2020-04-02 | XMS | Encounter Summary ---
Demographics + + + | Address | [address] | | | [place] [address] | + + + | Home Phone | | + + + | Preferred Language | Unknown | + + + | Marital Status | Single | + + + | Catholic Affiliation | CAT | + + + | Race | Unknown | + + + | Ethnic Group | Not or | + + + Author + + + | Author | [facility] | + + + | Organization | [facility] | + + + | Address | Unknown | + + + | Phone | Unavailable | + + + Support + + +---------+ + | Name | Relationship | Address | Phone | + + +---------+ + | Alisia Nina | ECON | Unknown | | + + +---------+ + Care Team Providers + +------+ + | Care Doctor Assistant Name | Role | Phone | + +------+ + | Gracie Lewis PA-C | PCP | | + +------+ + Reason for Visit + +--------+ + | Reason | Onset | Comments | | | Date | | + +--------+ + | Pre-operative | 12/31/ | | | evaluation | 2020 | | + +--------+ + Encounter Details +--------+ + + + + | Date | Type | Department | Care Team | Description | +--------+ + + + + | 01/02/ | Telephone-S | Preoperative | | Pre-operative | | 2020 | cheduled | [facility] | | evaluation | | | | Formerly Named [facility] | | | | | | [address] | | | | | | [facility] | | | | | | and Healing, | | | | | | [address] | | | | | | [place], [place] | | | | | | [address] | | | | | | [phone] | | | +--------+ + + + + Anesthesia Record + + + + + | Procedure Name | Responsible | Anesthesia Start | Anesthesia Stop Time | | | Anesthesiologist | Time | | + + + + + | YOHANA | Amy King MD | 01/09/2049 | 01/09/20 0856 | + + + + + +----+---+ + + | Da | T | Event | Comment | | te | i | | | | | m | | | | | e | | | +----+---+ + + | 06 | 0 | Eq Check | Anesthesia machine checked Equipment verified | | /0 | 7 | | | | 3/ | 1 | | | | 20 | 2 | | | | 20 | | | | +----+---+ + + | | 0 | Pt. Check | Prior to anesthesia start, pt. Identified, examined, chart | | | 7 | | reviewed, PARQ held, anesthetic plan made or approved by | | | 3 | | attending anesthesiologist. NPO status confirmed as appropriate | | | 8 | | for procedure Preoperative evaluation: unchanged | +----+---+ + + | | 0 | Preprocedur | Pt ID confirmed, informed consent obtained, insertion site | | | 7 | e Checklist | marked, equipment available | | | 3 | | | | | 8 | | | +----+---+ + + | | 0 | An Start | | | | 7 | | | | | 4 | | | | | 9 | | | +----+---+ + + | | 0 | An Start | | | | 7 | Data | | | | 4 | | | | | 9 | | | +----+---+ + + | | 0 | Vitals | Monitors applied Vital signs checked Patient ready for anesthesia | | | 7 | Checked | | | | 5 | | | | | 3 | | | +----+---+ + + | | 0 | O2 by NC | | | | 7 | | | | | 5 | | | | | 3 | | | +----+---+ + + | | 0 | Timeout | | | | 7 | | | | | 5 | | | | | 4 | | | +----+---+ + + | | 0 | Abx held | Pre-incision antibiotic not indicated or already given. | | | 7 | Medical or | | | | 5 | Surgical | | | | 4 | Reason | | +----+---+ + + | | 0 | an yadira now | | | | 7 | | | | | 5 | | | | | 5 | | | +----+---+ + + | | 0 | Ready | | | | 7 | | | | | 5 | | | | | 9 | | | +----+---+ + + | | 0 | Incision | | | | 8 | | | | | 0 | | | | | 0 | | | +----+---+ + + | | 0 | Surgery end | | | | 8 | | | | | 4 | | | | | 4 | | | +----+---+ + + | | 0 | an stop | | | | 8 | data | | | | 4 | | | | | 7 | | | +----+---+ + + | | 0 | PACU Rpt | | | | 8 | Given | | | | 5 | | | | | 6 | | | +----+---+ + + | | 0 | Anesthesia | | | | 8 | End | | | | 5 | | | | | 6 | | | +----+---+ + + | | 0 | an yadira now | Soha Wastin mcg Fentanyl | | | 8 | | | | | 5 | | | | | 6 | | | +----+---+ + + +------+ | Meds | +------+ + + + No medications | on file. | + + + + + | No agents on file. | + + + + | No blood administrations on file. | + + +--------+ + + + | Type | Details | Placement | Removal | +--------+ + + + | Periph | 01/09/20; 0742; Right; Hand; 22 | 01/09/20 0742 by | 01/09/2059 by | | eral | g; Positive; 01/09/20; 59; | Jonelle Jade RN | El Rizo RN | | IV | Discharge | | | +--------+ + + + documented in this encounter Social History + +-------+ +--------+------+ | Tobacco [...] + documented as of this encounter Progress Louise Orozco RN - 01/01/2020 2:00 PM PDTPhone appointment not completed as scheduled. Un able to reach patient despite multiple attempts. Email sent to surgeon's office via email. D ocumentation to be found in the Notes and Trans Encounter tab in [employer]. documented in this encounter Plan of Treatment Not on filedocumented as of this encounter Visit Diagnoses + + | Diagnosis | + + | Pre-operative clearance - Primary Preoperative examination, unspecified | + + documented in this encounter"
--- OUTSIDE RECORDS SUMMARY | ~2020-04-02 | XMS | Encounter Summary ---
Demographics + + + | Address | [address] | | | [place] [address] | + + + | Home Phone [...] Author + + + | Author | [facility] | + + + | Organization | [facility] | + + + | Address | Unknown | + + + | Phone | Unavailable | + + + Support + + +---------+ + | Name | Relationship | Address | Phone | + + +---------+ + | Alisia Nina | ECON | Unknown | | + + +---------+ + Care Team Providers + +------+ + | Care Workforce Management Manager Name | Role | Phone | + +------+ + | Gracie Lewis PA-C | PCP | | + +------+ + Reason for Referral Physical Therapy (Routine) +--------+--------+ + + + + | Status | Reason | Specialty | Diagnoses / | Referred By | Referred To | | | | | Procedures | Contact | Contact | +--------+--------+ + + + + | Closed | | Physical | Diagnoses | [place], | Daniel Pt Chh1 | | | | Therapy | Morbid | Jen W, | [address] | | | | | obesity | AGACNP [address] | | | | | ([facility]) | [address] | for Health | | | | | Procedures | [place], | and Healing, | | | | | PHYSICAL | [place] | Building [address], | | | | | THERAPY | [address] | 1st Floor | | | | | REFERRAL | Phone: | [place], [place] | | | | | | | [address] | | | | | | Fax: | Phone: | | | | | | [phone] | [phone] | | | | | | | Fax: | | | | | | | [phone] | +--------+--------+ + + + + Encounter Details +--------+ + + + + | Date | Type | Department | Care Team | Description | +--------+ + + + + | 05/03/ | Advance Seal Delivery System Maintainer | Digestive Health | Jen Coronel, | Morbid obesity (HCC) | | 2019 | | Center at [facility] [address] | AGACNP [address] | (Primary Dx) | | | | [address] | [address] [facility] [place] | | | | | for Health and | [address] | | | | | Healing, Building [address] | [phone] | | | | | [place], [place] | | | | | | [address] | | | | | | [phone] | | | +--------+ + + + [...] obesity | + + documented in this encounter"
--- OUTSIDE RECORDS SUMMARY | ~2020-04-02 | XMS | Encounter Summary ---
Demographics + + + | Address | [address] | | | [place] [address] | + + + | Home Phone | | + + + | Preferred Language | Unknown | + + + | Marital Status | Single | + + + | Congregational Affiliation | 1041 | + + + | Race | White | + + + | Ethnic Group | Not or | + + + Author + + + | Author | [facility] | | | and [place] | + + + | Organization | [facility] | | | [...] [place] | | | | | [address] | | + + + + + | Pratibha Hester | ECON | Unknown | + | + + + + + | Demian Powell | ECON | Unknown | + | + + + + + Care Team Providers + +------+ + | Care Germination Worker Name | Role | Phone | [...] | | | lumbar | [address] [place] [address] | | | | | spinal | [address] | [address] | | | | | fusion Back | [place] | AVE | | | | | pain, | [address] | [place], [place] | | | | | unspecified | Phone: | [address] | | | | | location | [phone] | Phone: | | | | | Radiculopath | Fax: | [phone] | | | | | y, | [phone] | Fax: | | | | | unspecified | | [phone] | | | | | spinal | | | | | | | region | | | | | | | Procedures | | | | | | | CT | | | | | | | Myelography | | | | | | | Lumbar Spine | | | +--------+--------+ + + + + Reason for Visit + +--------+ + | Reason | Onset | Comments | | | Date | | + +--------+ + | Imaging Only | 04/03/ | | | | 2014 | | + +--------+ + Encounter Details +--------+ + + + + | Date | Type | Department | Care Team | Description | +--------+ + + + + | 04/03/ | Telephone | [facility] | Sascha Mir, | Imaging Only | | 2014 | | NEUROSURGERY [address] | DO [address] | | | | | [address] | [address] [place] | | | | | [place] | [phone] | | | | | [address] | | | | | | [phone] | | | +--------+ + + + [...] Encounter - Elina Fairbanks Cert MA - 04/04/2015 10:32 AM PDTThe order has been pl aced for a CT myelogram. Once approved we will get this scheduled. I did leave a message at [facility] with Sharon for Dr. Up. ELINA FAIRBANKS elephone Sascha Pearson DO - 04/03/2015 6:01 PM PDTThat will not be useful. Please order a CT myelogram of the lumbar spine instead. Thanks. elephone [place] unter - Elina Fairbanks Cert MA - 04/03/2015 2:30 PM PDTI got a call today from Dr. Annel arroyo the Radiology dept. At [facility] stating that they did an MRI without contrast for [place] today , but because of the scar tissue, the imaging is very poor and are requesting a new order wi th contrast. Please advise. ELINA FAIRBANKS documented in this encounter Plan of Treatment + +---------+--------+ [...]
--- OUTSIDE RECORDS SUMMARY | ~2020-04-02 | XMS | Encounter Summary ---
Demographics + + + | Address | [address] | | | [place] [address] | + + + | Home Phone [...] Providers + +------+ + | Care Order Management Specialist Name | Role | Phone | [...] Pre-operative | | 2020 | cheduled | [facility] at | | evaluation | | | | [facility] | | | | | | [address] | | | | | | [facility] | | | | | | and Healing, | | | | | | [address] | | | | | | [place], [place] | | | | | | [address] | | | | | | [phone] | | | +--------+ + + + [...] the Notes and Trans Encounter tab in [facility]. documented in this encounter Plan of Treatment Not on filedocumented as of this encounter Visit Diagnoses + + | Diagnosis | + + | Pre-operative clearance - Primary Preoperative examination, unspecified | + + documented in this encounter"
--- OUTSIDE RECORDS SUMMARY | ~2020-04-02 | XMS | Encounter Summary ---
Demographics + + + | Address | [address] | | | [place] [address] | + + + | Home Phone | | + + + | Preferred Language | Unknown | + + + | Marital Status | Single | + + + | Congregational Affiliation | CAT | + + + | Race | Unknown | + + + | Ethnic Group | Not or | + + + Author + + + | Author | [facility] | + + + | Organization | [facility] | + + + | Address | Unknown | + + + | Phone | Unavailable | + + + Support + + +---------+ + | Name | Relationship | Address | Phone | + + +---------+ + | Alisia Nina | ECON | Unknown | | + + +---------+ + Care Team Providers + +------+ + | Care [facility] [employer] Name | Role | Phone | + +------+ + | Quentin Manriquez | PCP | | + +------+ + Reason for Visit +--------+--------+ + | Reason | Onset | Comments | | | Date | | +--------+--------+ + | Other | 08/21/ | | | | 2015 | | +--------+--------+ + Encounter Details +--------+ + + + + | Date | Type | Department | Care Team | Description | +--------+ + + + + | 08/21/ | Telephone | Otolaryngology | Windy Mclean | Other | | 2014 | | Otology Services at | [facility] [place] [address] | | | | | [address] | [facility] | | | | | [address] | [place], [place] | | | | | Physician's | [address] | | | | | Pavilion, 2nd floor | [phone] | | | | | [place], [place] | | | | | | [address] | | | | | | [phone] | | | +--------+ + + + [...] this encounter Miscellaneous Notes Telephone Encounter - Windy Mclean MD - 08/21/2014 9:50 PM PSTChart note is comple elle. elephone Ray Lemons - 08/21/2014 11:04 AM PSTFormatting of this note might be different fr om the original. Please complete chart notes Patient Information Patient Name Sex Demian Araya ([id number]) Female 1970 Due: TueAugust 14, 2014 1:00 PM Message Good afternoon, Patient Demian Nina ( ) has been walked in same day 08/14/[address] [facility] requires prior authorization with the most recent chart notes. Please have Dr. Cade complete office visit note dated 08/14/14 so that we can submit the authorization request. Thank you, Chi[facility] [phone] documented in this encounte r Plan of Treatment Not on filedocumented as of this encounter Visit Diagnoses Not on filedocumented in this encounter"
--- OUTSIDE RECORDS SUMMARY | ~2020-04-02 | XMS | Encounter Summary ---
Demographics + + + | Address | [address] | | | [place] [address] | + + + | Home Phone [...] [place] | | | | | [address] | | + + + + + | Pratibha Hester | ECON | Unknown | + | + + + + + | Demian Powell | ECON | Unknown | + | + + + + + Care Team Providers + +------+ + | Care Industrial Waste Treatment Technician Name | Role | Phone | + +------+ + | Quentin Manriquez PA-C | MARCK | | + +------+ + Encounter Details +--------+ + + + + | Date | Type | Department | Care Team | Description | +--------+ + + + + | 12/05/ | Preadmit | [facility] | Sascha Mir, | Bilateral lumbar | | 2015 | Visit | [facility] | DO [address] | radiculopathy; HIP | | | | CLINIC [address] | [address] [place], [place] | PAIN, LEFT, CHRONIC; | | | | [place], [place] | [address] | Spondylolisthesis | | | | [address] | | of lumbar region | | | | | | L5-S1; Pars defect | | [...] | + +--------+ + + + | PTT | Routin | 12/05/2014 | Bilateral lumbar | Results for this | | | e | 11:56 AM | radiculopathy HIP | procedure are [...] | + +--------+ + + + | PROTIME INR | Routin | 12/05/2014 | Bilateral lumbar | Results for this | | | e | 11:56 AM | radiculopathy HIP | procedure are [...] | + +--------+ + + + | CBC WITH | Routin | 12/05/2014 | Bilateral lumbar | Results for this | | DIFFERENTIAL | e | 11:56 AM | radiculopathy HIP | procedure are [...] | + +--------+ + + + | BASIC METABOLIC | Routin | 12/05/2014 | Bilateral lumbar | Results for this | | PANEL | e | 11:56 AM | radiculopathy HIP | procedure are [...] + + documented in this encounter Results Protime INR (12/05/2014 11:56 AM PDT) + + + + + + | Component | Value | Ref Range | Performed | Pathologist | | | | | At | Signature | + + + + + + | Prothrombin | 13.2 | 11.3 - 13.9 | [facility] | | | Time | | seconds | [facility] | | | | | | MEDICAL | | | | | | CENTER - | | | | | | LABORATORY | | + + + + + + | INR | 1.00Comment: Usual Oral | 0.90 - 1.10 | [facility] | | | | Anticoagulation Range: | | [facility] | | | | 2.0 - 3.0High | | MEDICAL | | | | Level Oral | | CENTER - | | | | Anticoagulation Range: | | LABORATORY | | | | 2.5 - 3.5 | | | | + + + + + + + + | Specimen | + + | Blood | + + + + + + + | Performing | Address | City/State/Zipcode | Phone Number | | Organization | | | | + + + + + | [facility] | [address] | [place] | [phone] | | [facility] | | [address] | | | - LABORATORY | | | | + + + + + PTT (12/05/2014 11:56 AM PDT) + +-------+ + + + | Component | Value | Ref Range | Performed | Pathologist | | | | | At | Signature | + +-------+ + + + | aPTT | 29 | 22 - 36 seconds | [facility] | | | | | | [facility] | | [...] | [facility] | [address] | [place] | [phone] | | [facility] | | [address] | | | - LABORATORY | | | | + + + + + Basic Metabolic Panel (12/05/2014 11:56 AM PDT) + + + + + + | Component | Value | Ref Range | Performed | Pathologist | | | | | At | Signature | + + + + + + | Na | 141 | 136 - 149 | [facility] | | | | | mmol/L | [facility] | | | | | | MEDICAL | | | | | | CENTER - | | | | | | LABORATORY | | + + + + + + | K | 3.8 | 3.5 - 5.1 | [facility] | | | | | mmol/L | [facility] | | | | | | MEDICAL | | | | | | CENTER - | | | | | | LABORATORY | | + + + + + + | Cl | 108 | 98 - 109 mmol/L | [facility] | | | | | | [facility] | | | | | | MEDICAL | | | | | | CENTER - | | | | | | LABORATORY | | + + + + + + | CO2 | 26 | 24 - 31 mmol/L | [facility] | | | | | | [facility] | | | | | | MEDICAL | | | | | | CENTER - | | | | | | LABORATORY | | + + + + + + | Anion Gap | 7 | 3 - 16 mmol/L | [facility] | | | | | | [facility] | | | | | | MEDICAL | | | | | | CENTER - | | | | | | LABORATORY | | + + + + + + | Glucose | 108 | 70 - 109 mg/dL | [facility] | | | | | | [facility] | | | | | | MEDICAL | | | | | | CENTER - | | | | | | LABORATORY | | + + + + + + | BUN | 11 | 7 - 18 mg/dL | [place] | | | | | | [facility] | | | | | | MEDICAL | | | | | | CENTER - | | | | | | LABORATORY | | + + + + + + | Creatinine | 0.71 | 0.60 - 1.30 | [place] | | | | | mg/dL | [facility] | | | | | | MEDICAL | | | | | | CENTER - | | | | | | LABORATORY | | + + + + + + | eGFR, | >60Comment: GLOMERULAR | >=60 | [facility] | | | non- | FILTRATION | mL/min/1.73m2 | [facility] | | | [place] | RATE,ESTIMATED | | MEDICAL | | | | mL/min/1.07b3Inuh than | | CENTER - | | | | 60 Chronic kidney | | LABORATORY | | | | disease,if found over a | | | | | | 3-month period.Less than | | | | | | 15 Kidney failureFor | | | | | | | | | | | | Americans,multiply the | | | | | | calculated GFR by 1.21. | | | | | | | | | | + + + + + + | Calcium | 8.9 | 8.3 - 10.5 | [facility] | | | | | mg/dL | [facility] | | | | | | MEDICAL | | | | | | CENTER - | | | | | | LABORATORY | | + + + + + + | BUN/Creatin | 15.5 | | [facility] | | | ine Ratio | | | [facility] | | | | | | MEDICAL | | | | | | CENTER - | | | | | | LABORATORY | | + + + + + + + + | Specimen | + + | Blood | + + + + + + + | Performing | Address | City/State/Zipcode | Phone Number | | Organization | | | | + + + + + | [facility] | [address] | [place] | [phone] | | [facility] | | [address] | | | - LABORATORY | | | | + + + + + CBC with Differential (12/05/2014 11:56 AM PDT) + + + + + + | Component | Value | Ref Range | Performed | Pathologist | | | | | At | Signature | + + + + + + | White Blood | 10.3 | 4.0 - 11.0 K/uL | [facility] | | | Cells | | | [facility] | | | | | | MEDICAL | | | | | | CENTER - | | | | | | LABORATORY | | + + + + + + | Red Blood | 4.62 | 3.70 - 5.20 | [facility] | | | Cells | | M/uL | [facility] | | | | | | MEDICAL | | | | | | CENTER - | | | | | | LABORATORY | | + + + + + + | Hemoglobin | 12.0 | 11.5 - 16.0 | [facility] | | | | | g/dL | [facility] | | | | | | MEDICAL | | | | | | CENTER - | | | | | | LABORATORY | | + + + + + + | Hematocrit | 37.0 | 34.0 - 47.0 % | [facility] | | | | | | [facility] | | | | | | MEDICAL | | | | | | CENTER - | | | | | | LABORATORY | | + + + + + + | MCV | 80.1 (L) | 83.0 - 101.0 fL | [facility] | | | | | | [facility] | | | | | | MEDICAL | | | | | | CENTER - | | | | | | LABORATORY | | + + + + + + | MCH | 25.9 (L) | 28.0 - 35.0 pg | [facility] | | | | | | [facility] | | | | | | MEDICAL | | | | | | CENTER - | | | | | | LABORATORY | | + + + + + + | MCHC | 32.3 | 32.0 - 36.0 | [facility] | | | | | g/dL | [facility] | | | | | | MEDICAL | | | | | | CENTER - | | | | | | LABORATORY | | + + + + + + | RDW-CV | 15.8 (H) | <15.0 % | [facility] | | | | | | [facility] | | | | | | MEDICAL | | | | | | CENTER - | | | | | | LABORATORY | | + + + + + + | Platelet | 390 | 140 - 440 K/uL | [facility] | | | Count | | | [facility] | | | | | | MEDICAL | | | | | | CENTER - | | | | | | LABORATORY | | + + + + + + | MPV | 8.2 | fL | [facility] | | | | | | [facility] | | | | | | MEDICAL | | | | | | CENTER - | | | | | | LABORATORY | | + + + + + + | % | 63.7 | 45.0 - 82.0 % | [facility] | | | Neutrophils | | | [facility] | | | | | | MEDICAL | | | | | | CENTER - | | | | | | LABORATORY | | + + + + + + | % | 26.5 | 20.0 - 45.0 % | [facility] | | | Lymphocytes | | | [facility] | | | | | | MEDICAL | | | | | | CENTER - | | | | | | LABORATORY | | + + + + + + | % Monocytes | 5.4 | 4.0 - 12.0 % | [facility] | | | | | | [facility] | | | | | | MEDICAL | | | | | | CENTER - | | | | | | LABORATORY | | + + + + + + | % | 3.4 | 0.0 - 5.0 % | [facility] | | | Eosinophils | | | [facility] | | | | | | MEDICAL | | | | | | CENTER - | | | | | | LABORATORY | | + + + + + + | % Basophils | 1.0 | 0.0 - 1.0 % | [facility] | | | | | | [facility] | | | | | | MEDICAL | | | | | | CENTER - | | | | | | LABORATORY | | + + + + + + | Absolute | 6.50 | 1.80 - 8.50 | [facility] | | | Neutrophils | | K/uL | [facility] | | | | | | MEDICAL | | | | | | CENTER - | | | | | | LABORATORY | | + + + + + + | Absolute | 2.70 | 0.60 - 3.20 | [facility] | | | Lymphocytes | | K/uL | [facility] | | | | | | MEDICAL | | | | | | CENTER - | | | | | | LABORATORY | | + + + + + + | Absolute | 0.50 | 0.00 - 1.00 | [facility] | | | Monocytes | | K/uL | [facility] | | | | | | MEDICAL | | | | | | CENTER - | | | | | | LABORATORY | | + + + + + + | Absolute | 0.30 | 0.00 - 0.40 | [facility] | | | Eosinophils | | K/uL | [facility] | | | | | | MEDICAL | | | | | | CENTER - | | | | | | LABORATORY | | + + + + + + | Absolute | 0.10 | 0.00 - 0.10 | [facility] | | | Basophils | | K/uL | [facility] | | | | | | MEDICAL | | | | | | CENTER - | | | | | | LABORATORY | | + + + + + + + + | Specimen | + + | Blood | + + + + + + + | Performing | Address | City/State/Zipcode | Phone Number | | Organization | | | | + + + + + | [facility] | [address] | [place] | [phone] | | [facility] | | [address] | | | - LABORATORY | | [...]
--- OUTSIDE RECORDS SUMMARY | ~2020-04-02 | XMS | Encounter Summary ---
Demographics + + + | Address | [address] | | | [place] [address] | + + + | Home Phone | | + + + | Preferred Language | Unknown | + + + | Marital Status | Single | + + + | Voodoo Affiliation | 1041 | + + + | Race | White | + + + | Ethnic Group | Not or | + + + Author + + + | Author | [facility] | | | and [place] | + + + | Organization | [facility] | | [...] [place] | | | | | [address] | | + + + + + [...] | | +--------+--------+ + | Other | 08/13/ | | | | 2015 | | +--------+--------+ + Encounter Details +--------+ + + + + | Date | Type | Department | Care Team | Description | +--------+ + + + + | 08/13/ | Telephone | [facility] | Sascha Mir, | Other | | 2015 | | NEUROSURGERY [address] | DO [address] | | | | | [address] | [address] [place], [place] | | | | | [place] | [id number] | | | | | [address] | | | | | | [phone] | | | +--------+ + + + [...] Encounter - Elina Noonan Cert MA - 08/14/2015 10:08 AM PSTDemian returned my jigar johnson. The recommendations were relayed to her. She verbalizes understanding. ELINA NOONAN elephone Elina Lerner Cert MA - 08/14/2015 8:51 AM PSTVM left for Demian requesting a call back ELINA NOONAN elephone Sascha Pearson DO - 08/13/2015 5:[address] Triplett for this last month. He's really the best person to take over at this point as no other surgery would help right now. They discussed epidural steroid injections which might help. She could also talk to joão madrigal about nerve pain medication or even spinal cord stimulator trial. Thanks. elephone Elina Perdue Cert MA - 08/13/2015 2:42 PM PSTI returned Demian's call. She C/O mendoza ving pain in her toes on the left foot (3rd and 4th toes). She describes the pain as a dull aching pain and talks about it nerve pain. She says she has had this pain since her surgery in December, but it has not improved. She also states she saw Dr. Triplett and has her doing PT and will follow-up with KAYY Mike on 09/18. She has no other complaints at this time in regards to her back surgery. She is not taking any types of nerve pain medications at t his time. She is S/P L5-S1 Fusion on 06/04/15. She does not have any visits with us. Please advise ELINA NOONAN elephone Encounte r - Melida Lindquist - 08/13/2015 2:30 PM PSTPatient returned call. elephone Encounter - Yoko Aguillon RN - 08/13 2:13 PM PSTS/P L5-S1 Fusion on 12/12/14 Called and left VM, requesting a call back. elephone Encounter - Melida Lindquist - 08/13/2015 2:06 PM PSTPatie nt left message via [employer]: "Had surgery back on 12/12/14 and I am experiencing issue s with my toes again." docu mented in this encounter Plan of Treatment Not on filedocumented as of this encounter Visit Diagnoses Not on filedocumented in this encounter
--- OUTSIDE RECORDS SUMMARY | ~2020-04-02 | XMS | Encounter Summary ---
Demographics + + + | Address | [address] | | | [place] [address] | + + + | Home Phone | | + + + | Preferred Language | Unknown | + + + | Marital Status | Single | + + + | Confucianist Affiliation | [id number] | + + + | Race | White | + + + | Ethnic Group | Not or | + + + Author + + + | Author | [facility] | | | and [place] | + + + | Organization | [facility] | | [...] [place] | | | | | [address] | | + + + + + | Pratibha Hester | ECON | Unknown | + | + + + + + | Demian Powell | ECON | Unknown | + | + + + + + Care Team Providers + +------+ + | Care Clerical Stock Inspector Name | Role | Phone | + +------+ + | Quentin Manriquez PA-C | MARCK | | + +------+ + Encounter Details +--------+ + + + + | Date | Type | Department | Care Team | Description | +--------+ + + + + | 03/17/ | Hospital | [facility] | Amol Triplett, | Spondylolisthesis of | | 2014 | Encounter | MED CTR XRAY [address] | PA-C [address] | lumbar region | | | | [place] | [address] [place] | L5-S1; S/P lumbar | | | | [place] [address] | [place] [address] | fusion | | | | [phone] | [phone] | | | | | | | [...] tablet by | 60 | 0 | 03/17/20 | | | 5 mg tablet | [...] +---------+ + + | methocarbamol | Take 1 tablet by | 60 | 2 | 03/17/20 | | | (ROBAXIN) 750 mg | mouth every 6 hours | tablet | | 15 | 5 | | tablet | as needed for Muscle | | | | | | | spasms. | | | | | + + + +---------+ + + | ondansetron | Take 1 tablet by | 30 | 0 | 02/27/20 | | | (ZOFRAN ODT) 4 mg | mouth every 8 hours | tablet | | 15 | 5 | | disintegrating | as needed for [...] LUMBAR SPINE 2 OR | Routin | 03/17/2015 | Spondylolisthesis | Results for this | | 3 VW | e | 1:32 PM | of lumbar region | procedure are in the | | | | PDT | L5-S1 S/P lumbar | results section. | | | | | fusion | | + +--------+ + + + documented in this encounter Results XR Lumbar Spine 2 or 3 Vw (03/17/2015 1:32 PM PDT) + + | Specimen | + + | | + + + + + | Narrative | Performed At | + + + | XR LUMBAR SPINE 2 OR 3 VW 03/17/2015 1:32 PM HISTORY: Postop. | [facility] | | COMPARISON: Multiple priors. FINDINGS: There is stable hardware | . TERI | | for posterior fusion from L5 through S1 with interbody hardware at [facility] | | L5-S1. Extensive spondylosis is present of the lower thoracic spine. | - IMAGING | | There is mild spondylosis of the lumbar spine. Bone mineralization is | | | normal. Vertebral body height are preserved with no evidence for | | | compression fractures. Disc height are maintained. Facet joints are | | | intact. Visualized ribs and pelvic osseous structures show no acute | | | findings. Cholecystectomy clips are present. IMPRESSION - Stable | | | posterior fusion from L5 through S1. Dictated and Signed by: Jeison | | | MD Earnest Electronically signed: 03/17/2015 1:33 PM | | + + + + + | Procedure Note | + + | Cedric, Rad Results In - 03/17/2015 1:37 PM PDT XR LUMBAR SPINE 2 OR 3 VW 03/17/2015 | | 1:32 PMHISTORY: Postop.COMPARISON: Multiple priors.FINDINGS:There is stable hardware for | | posterior fusion from L5 through S1 with interbodyhardware at L5-S1. Extensive | | spondylosis is present of the lower thoracic spine.There is mild spondylosis of the | | lumbar spine. Bone mineralization is normal.Vertebral body height are preserved with no | | evidence for compression fractures.Disc height are maintained. Facet joints are intact. | | Visualized ribs and pelvicosseous structures show no acute findings. Cholecystectomy | | clips are present.IMPRESSION -Stable posterior fusion from L5 through S1.Dictated and | | Signed by: Jeison Tinoco MD Electronically signed: 03/17/2015 1:33 PM | |There is mild spondylosis of the lumbar spine. Bone mineralization is normal. | |Vertebral body height are preserved with no evidence for compression fractures. | |Disc height are maintained. Facet joints are intact. Visualized ribs and pelvic | |osseous structures show no acute findings. Cholecystectomy clips are present. | | | |IMPRESSION - | |Stable posterior fusion from L5 through S1. | | | |Dictated and Signed by: Jeison Tinoco MD | | Electronically signed: 03/17/2015 1:33 PM | + + + + + + + | Performing | Address | City/State/Zipcode | Phone Number | | Organization | | | | + + + + + | [facility] | [address] | [place], [place] | [phone] | | [facility] | | [address] | | | - IMAGING | | | | + + + + + documented in this encounter Visit Diagnoses + + | Diagnosis | + + | Spondylolisthesis of lumbar region L5-S1 Acquired spondylolisthesis | + + | S/P lumbar fusion Arthrodesis status | + + documented in this encounter"
--- OUTSIDE RECORDS SUMMARY | ~2020-04-02 | XMS | Encounter Summary ---
Demographics + + + | Address | [address] | | | [place] [address] | + + + | Home Phone [...] Author + + + | Author | [facility] | + + + | Organization | [facility] | + + + | Address | Unknown | + + + | Phone | Unavailable | + + + Support + + +---------+ + | Name | Relationship | Address | Phone | + + +---------+ + | Alisia Nina | ECON | Unknown | | + + +---------+ + Care Team Providers + +------+ + | Care Bleacher [employer] Name | Role | Phone | + +------+ + | Gracie Lewis PA-C | PCP | | + +------+ + Encounter Details +--------+ + + + + | Date | Type | Department | Care Team | Description | +--------+ + + + + | 12/25/ | Orders Only | Preoperative | Daphne Rodriguez, | | | 2019 | | Medicine Clinic at | [place], [place] | | | | | [facility] | [address] | | | | | [address] | | | | | | [place] [facility] | | | | | | and Healing, | | | | | | [address] | | | | | | [facility] [place] | | | | | | [address] | | | | | | [phone] | | | +--------+ + + + [...]
--- OUTSIDE RECORDS SUMMARY | ~2020-04-02 | XMS | Encounter Summary ---
Demographics + + + | Address | [address] | | | [place] [address] | + + + | Home Phone [...] + + + | Author | [facility] | | | and [place] | + + + | Organization | [facility] | | | [...] [place] | | | | | [address] | | + + + + + | Pratibha Hester | ECON | Unknown | + | + + + + + | Demian Powell | ECON | Unknown | + | + + + + + Care Team Providers + +------+ + | Care Helminthology Teacher Name | Role | Phone | + +------+ + | Jannette Boyle PA-C | PCP | | + +------+ + Encounter Details +--------+ + + + + | Date | Type | Department | Care Team | Description | +--------+ + + + + | 02/28/ | Orders Only | [facility] | Provider, | | | 2019 | | [facility] | [address] | | | | | [address] | [address] | | | | | [address] [place], [place] | [place] [address] | | | | | [address] | | | | | | [phone] | | | +--------+ + + + [...]
--- OUTSIDE RECORDS SUMMARY | ~2020-04-02 | XMS | Encounter Summary ---
Demographics + + + | Address | [address] | | | [place] [address] | + + + | Home Phone [...] Team Providers + +------+ + | Care Medical Associate Name | Role | Phone | [...] evaluation | | 2019 | cheduled | [facility] | | | | | | [facility] | | | | | | [address] | | | | | | [facility] | | | | | | and Healing, | | | | | | [address] | | | | | | [place], [place] | | | | | | [address] | | | | | | [phone] | | | +--------+ + + + [...] got a 3rd number to try from [facility] with no success- Have left VM for pt to return call at number s listed in chart- Pt will need to be rescheduled for phone apt when we have a number she is reachable at.- Department advised- Halle Hinojosa <[email or web address]>; Ehsan Cotto [email or web address]> documented in this encounter Plan of Treatment Not on filedocumented as of this encounter Visit Diagnoses Not on filedocumented in this encounter"
--- OUTSIDE RECORDS SUMMARY | ~2020-04-02 | XMS | Encounter Summary ---
Demographics + + + | Address | [address] | | | [place] [address] | + + + | Home Phone | | + + + | Preferred Language | Unknown | + + + | Marital Status | Single | + + + | Anabaptism Affiliation | [id number] | + + + | Race | White | + + + | Ethnic Group | Not or | + + + Author + + + | Author | [facility] | | | and [place] | + + + | Organization | [facility] [...] [place] | | | | | [address] | | + + + + + | Pratibha Hester | ECON | Unknown | + | + + + + + | Demian Powell | ECON | Unknown | + | + + + + + Care Team Providers + +------+ + | Care Mechanical Equipment Sales Engineer Name | Role | Phone | + [...] + + | Closed | Specialty | Sleep | Diagnoses | Liam, | [facility] | | | Services | Medicine | Sleep | Jeanna | Center [address] | | | Required | | apnea, | Gracie, | Ed | | | | | unspecified | NURSING EDUCATION SPECIALIST [address] | [place], | | | | | type | [address] | [place] [address] | | | | | Procedures | [place], | Phone: | | | | | [facility] | [place] [address] | [phone] | | | | | STUDY, | Phone: | Fax: | | | | | UNATTENDED, | [phone] | [phone] | | | | | RECORD HEART | Fax: | | | | | | RATE/O2 | [phone] | | | | | | SAT/RESP | | | | | | | ANAL/SLEEP | | | | | | | TIME WATCH | | | | | | | PAT | | | | | | | (KARENK- | | | | | | | NEED TO R/S) | | | +--------+ + + + + + Reason for Visit +---------+ + | Reason | Comments | +---------+ + | Consult | | +---------+ + Evaluate & Treat (Routine) +--------+--------+ + + + + | Status | Reason | Specialty | Diagnoses / | Referred By | Referred To | | | | | Procedures | Contact | Contact | +--------+--------+ + + + + | Closed | | Nurse | Diagnoses | Joshua, | Liam, | | | | Practitioner- | Obstructive | Gracie Armendariz | Jeanna | | | | Adult Health | sleep apnea | PA-C [id number] | ROBERTO Bowman | | | | / Sleep | (adult) | | [address] | | | | Medicine | (pediatric) | [address] | [address] | | | | | CONSULT [address] | [address] | [place], | | | | | [address] | [place], | [place] [address] | | | | | GET REF FROM | [place] [address] | Phone: | | | | | [facility] | Phone: | [phone] | | | | | Procedures | [phone] | Fax: | | | | | NEW PATIENT | Fax: | [phone] | | | | | | [phone] | | +--------+--------+ + + + + Encounter Details +--------+---------+ + + + | Date | Type | Department | Care Team | Description | +--------+---------+ + + + | 02/04/ | Office | [facility] | Jeanna Wheeler | Sleep apnea, | | 2019 | Visit | SLEEP DISORDER [address] | ROBERTO [address] | unspecified type | | | | [address] [place] | [address] [place] | (Primary Dx); | | | | [place] [address] | [place] [address] | Snoring | | | | [phone] | [phone] | | | | | | | [...] + + +---------+ + + + + + | Education | Answer | Date Recorded | + + + + | What is the highest level of school you | Some college, no degree | 02/05/2020 | | have completed or the highest degree you | | | | have received? | | | + + + + + + + | Sex Assigned at | Date Recorded | | | | + + + | Not on file | | + + + documented as of this encounter Last Filed Vital Signs + + + + + | Vital Sign | Reading | Time Taken | Comments | + + + + + | Blood Pressure | 98/70 | 02/05/2020 9:46 AM | | | | | PDT | | + + + + + | Pulse | 84 | 02/05/2020 9:46 AM | | | | | PDT | | + + + + + | Temperature | - | - | | + + + + + | Respiratory Rate | 16 | 02/05/2020 9:46 AM | | | | | PDT | | + + + + + | Oxygen Saturation | 98% | 02/05/2020 9:46 AM | | | | | PDT | | + + + + + | Inhaled Oxygen | - | - | | | Concentration | | | | + + + + + | Weight | 99.8 kg (220 lb 0.3 | 02/05/2020 9:46 AM | | | | oz) | PDT | | + + + + + | Height | 167.6 cm (5' 6") | 02/05/2020 9:46 AM | | | | | PDT | | + + + + + | Body Mass Index | 35.51 | 02/05/2020 9:46 AM | | | | | PDT | | + + + + + documented in this encounter Progress Notes Farnaz Alexandra, Weather Stripper - 02/05/2020 10:00 AM PDTFormatting of this note might be d ifferent from the original. 02/05/20 0900 Smith Depression Inventory-II Depression Score 2 - Minimal depression Insomnia Severity Index Insomnia Severity Index 4 [place] Sleepiness Scale 1. Sitting and reading 0 2. Watching TV 0 3. Sitting, inactive in a public place (e.g. a theatre or a meeting) 0 4. As a passenger in a car for an hour without a break 0 5. Lying down to rest in the afternoon when circumstances permit 0 6. Sitting and talking to someone 0 7. Sitting quietly after a lunch without alcohol 0 8. In a car, while stopped for a few minutes in traffic 0 Total score 0 SF-36v2 Score PF 51.8 RP 54.91 BP 38.21 GH 49.86 VT 64.48 SF 57.34 RE 56.17 MH 63.95 PCS 44.81 MCS 64.96 documented i n this encounter H&P Notes Jeanna Wheeler NP - 02/05/2020 10:00 AM PDTFormatting of this note might be diff erent from the original. Yessenia [facility] [place] [address] Ref: Gracie Lewis P* CC: Chief Complaint Patient presents with Consult History of the Present Illness:This is a 50 y.o. female who is referred for sleep medicine consultation by ANNETTE Boss* because of snoring and upcoming bariatric surgery. Other significant medical issues include uncontrolled type 2 diabetes mellitus, essential h ypertension, lumbar radiculopathy, chronic nausea, Tietze syndrome, trochanteric bursitis, a sthma, history of anemia, morbid obesity, conductive hearing loss in right ear, anxiety, and depression. The patient's records are reviewed. The patient is interviewed and examined. Sleep/Wake Schedule: Ms. Nina currently has a variable bedtime. She will go to bed betw een midnight and 4 AM and get up between 9:30 AM and 11 AM. She attributes this lack of a n ormal schedule to the coronavirus pandemic and unemployment. She has recently started a new job and anticipates her schedule will normalize. She is able to fall asleep immediately up on going to bed. She subjectively sleeps through the night. She denies nocturia, night swe ats, and tossing and turning. She endorses rare nocturnal heartburn, morning dry mouth, mor genesis nasal stuffiness, and morning headaches. She generally finds sleep to be refreshing. Dreams: The patient sometimes dreams and rarely has nightmares. She endorses rare hypnagog ic hallucinations and episodes of sleep paralysis. She denies sleepwalking and dream enactm ent. Dream start for her later in the evening. RLS/PLM: The patient denies symptoms of restless legs and does not kick or twitch in her sl eep. Apnea: The patient snores rarely: She will only snore if she is laying on her back. This i s been ongoing for years. She has never been observed stopping breathing while asleep. She has never woken herself up snoring or short of breath. The patient prefers to sleep on her stomach. Daytime Functioning: The patient states she wakes up feeling "good" and has adequate energy throughout the day. She does not nap. She does not drive while drowsy and has never falle n asleep while driving. She denies symptoms of cataplexy. She drinks 2-3 twelve ounce cans of soda containing caffeine and sugar per day. Past Medical History: She has a past medical history of Adverse effect of anesthesia, Anemia, Anxiety, Asthma, C hronic back pain, Chronic low back pain (07/22/2015), Diabetes mellitus ([facility]) (2013), Essent ial hypertension, Gastric reflux, Heart attack ([facility]) (2009), Lumbar radiculopathy ( 5), Migraine, Morbid obesity ([facility]), Multiple allergies, Pars defect of lumbar spine, Pelvic inflammatory disease, Peptic ulcer, PONV (postoperative nausea and vomiting), S/P lumbar fus ion (07/22/2015), Spondylolisthesis of lumbar region, Trochanteric bursitis, and Ulcer of th e stomach and intestine. She has a past surgical history that includes Tonsillectomy; Adenoidectomy; shoulder surge ry (Right); Cholecystectomy; section, low transverse (1995); section, low transverse (2005); and lumbar laminectomy (N/A, 12/12/2014). Allergies Allergen Reactions Anesthetics, Ludmila Anaphylaxis, Itching and Swelling Allergic to anesthetics - reports throat swelling, itching Ethyl Chloride Anaphylaxis Had ingrown toenail removed last year. Several hours after procedure, patient developed a naphylaxis. Believed to be from ethyl chloride spray, per patient. Povidone Iodine Shortness Of Breath and Swelling Throat swelling and difficulty breathing Procainamide Hcl Anaphylaxis Allergic to anesthetics Allergic to anesthetics Latex Itching Morphine Itching and Rash Hydromorphone Itching and Rash Current Outpatient Medications Medication Sig Dispense Refill albuterol 90 mcg/puff inhaler Inhale 1-2 puffs into the lungs every 4 hours as needed f or Wheezing or Shortness of Breath. ferrous sulfate 324 (65 Fe) MG EC tablet Take 324 mg by mouth daily (with breakfast). Kxrqabr-Lxkvnjvjjzzi-Imcwpcfyx (TRI-RAJ) 0.01-4-0.05 % CREA APPLY TO CLEAN DRY SKIN AT BEDTIME, AVOIDING EYE AREA, FOR 8 WEEKS IN A ROW. REST 8 WEEKS AND MAY REPEAT NEEDED FOR DARKENING fluticasone-salmeterol (ADVAIR, WIXELA INHUB) 250-50 mcg/puff diskus inhaler Inhale 1 p uff into the lungs 2 times daily. guaiFENesin (ROBITUSSIN) 100 mg/5 mL SOLN Take 200 mg by mouth every 4 hours as needed. hydrocortisone 2.5% cream Apply topically 4 times daily. hydrophilic ointment Apply topically as needed for Dry Skin. insulin glargine (LANTUS) 100 units/mL injection (vial) Inject under the skin 3 times daily. liraglutide (VICTOZA) 18 mg/3 mL injection Inject 1.2 mg under the skin Daily. lisinopril (PRINIVIL,ZESTRIL) 2.5 MG tablet Take 2.5 mg by mouth Daily. Loratadine (CLARITIN) 10 MG CAPS Take by mouth Daily. meclizine (ANTIVERT) 25 mg tablet Take 25 mg by mouth 3 times daily as needed for Dizzi ness or Nausea. metFORMIN (GLUCOPHAGE) 500 mg tablet Take by mouth. methocarbamol (ROBAXIN) 500 mg tablet Take 500 mg by mouth Daily. mometasone (ASMANEX) 220 mcg/puff inhaler Inhale 1 puff once daily. montelukast (SINGULAIR) 10 mg tablet Take 10 mg by mouth nightly. naphazoline-pheniramine (NAPHCON-A) 0.025-0.3 % ophthalmic solution Apply 1 drop to eye 4 times daily as needed. omeprazole (PRILOSEC) 20 mg capsule Take 1 capsule by mouth Daily. pseudoePHEDrine (SUDAFED) 60 MG tablet Take 60 mg by mouth Twice daily as needed. PSYLLIUM PO Take by mouth. MED NAME: PSYLLIUM HYDROPHILIC MUCILLOID POWDER; Take 1 rou nded TBS by mouth every day mixed in 8 oz of liquid for fiber. terbinafine (LAMISIL) 250 MG tablet Take 1 tablet by mouth Daily. tiZANidine (ZANAFLEX) 4 mg tablet Take 4 mg by mouth every 6 hours as needed. No current facility-administered medications for this visit. Past Surgical History: Procedure Laterality Date ADENOIDECTOMY SECTION, LOW TRANSVERSE 1995 [facility]; [place] SECTION, LOW TRANSVERSE 2005 [facility]; [place] CHOLECYSTECTOMY LUMBAR LAMINECTOMY N/A 12/12/2014 Procedure: L5-S1 Transforaminal Lumbar Interbody Fusion; Surgeon: Sascha Mir DO; Lo cation: [facility] OR SHOULDER SURGERY Right TONSILLECTOMY Immunization History Administered Date(s) Administered HEP A, 2 DOSE (PED/ADOL) 11/29/2012 HEP A, 3 DOSE (PED/ADOL) 06/14/2013 HEP A/HEP B, 3 DOSE (ADULT) 10/13/2012 HEP B, 2 DOSE (ADOL) 11/29/2012 HEP B, 3 DOSE (ADULT) 05/18/2013 HPV, QUADRIVALENT, 3 DOSE (ADOL/ADULT) 05/18/2013 Hep B (PED/ADOL) 3 DOSE 06/14/2013 INFLUENZA 65 Y OR >, TRIVALENT HIGH-DOSE 07/01/2008, 07/07/2010, 04/08/2011, 05/18/2013 , 05/07/2014 INFLUENZA, K4S6-43, UNSPECIFIED 08/05/2009 PNEUMOCOCCAL, UNSPECIFIED FORMULATION 07/07/2010 Family Medical History: Her family history includes Alcohol abuse in an other family member ; Arthritis in her mother and sister; Asthma in her daughter and son; Coronary artery diseas e in her father; Coronary artery disease (age of onset: 37) in her sister; Diabetes in her s ister; Heart attack in her father; Hypertension in her mother; Mental illness in her sister; No known problems in her maternal grandfather, maternal grandmother, paternal grandfather, and paternal grandmother; Other (see comment) in her sister; Renal failure in her sister; Se izures in her sister; Sleep apnea in her mother; Stroke in her sister. She indicated that her mother is alive. She indicated that her father is . She wan cated that only one of her two sisters is alive. She indicated that both of her brothers are alive. She indicated that her maternal grandmother is . She indicated that her mate rnal grandfather is . She reported the following about her paternal grandmother: STA TUS UNKNOWN . She reported the following about her paternal grandfather: STATUS UNKNOWN . Sh colette indicated that her daughter is alive. She indicated that her son is alive. She indicated t hat the status of her other is unknown. 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 Nina is majoring in criminal justice and hopes to work in [employer] and give back to her community/[place]. She has 2 children, and she is coping with a protrac elle custody alvarado. In her free time, she enjoys creating works of art. She likes to moy fo r gems and minerals and knit. Review of Systems: Constitutional: Endorses 50 lb weightloss over the past 6 months. Denies unexplained feve rs, chills, sweats. Eyes:Denies sudden loss of vision, diplopia, blurred vision. ENT: Endorses poor dental repair. Denies loss of hearing, vertigo, nasal or sinus congest ion, bleeding gums. Card:Endorses occasional chest pain (Tietze syndrome). Endorses orthopnea and presyncope. Denies exertional substernal chest heaviness, leg pain. Denies palpitations, ankle edema. Resp: Denies cough, wheezing, asthma, hemoptysis GI: Denies nausea, vomiting, abdominal pain, diarrhea, constipation, hematochezia. : Denies dysuria, pyuria, hematuria, frequency, incontinence MS: Denies back pain, neck pain, arthralgias, arthritis, myalgias Neuro: Endorses history of diabetic coma and paresthesias in her hands. History of synco pe related to anemia. Denies seizures, strokes, concussions. Psych: Endorses depression, anxiety, and severe traumatic experiences. Denies: panic, pa st history physical or sexual abuse Endocrine: Denies heat or cold intolerance Heme: Denies easy bruising or prolonged bleeding. No history of transfusions Allergic/Immunologic: Endorses seasonal allergies PE: BP 98/70 | Pulse 84 | Resp 16 | Ht 1.676 m (5' 6") | Wt 99.8 kg (220 lb 0.3 oz) | SpO2 98% | BMI 35.51 kg/m Gen: obese, healthy, alert and not in acute distress HEENT:Head: Normocephalic, no lesions, without obvious abnormality. Nose: Normal external nose, mucus membranes and septum. Pharynx: Dental Hygiene adequate. Normal buccal mucosa. Normal pharynx. Mallampati 2 Pulm: lungs clear to auscultation, breath sounds equal and symmetric, no rhonchi, rales or wheezes Card: regular rate and rhythm, S1, S2 normal, no murmur, click, rub or gallop GI: soft, non-tender, without masses or organomegaly : Not examined Rectal: Not Examined Ext: not examined Skin:no rashes, no ecchymoses, no jaundice, no wounds Neuro:Grossly normal Psych:casually dressed Alert and oriented to time, place and person, mood and affect are w ithin normal limits, pt is a good historian; no memory problems were noted Heme: has no history of blood transfusion. Questionnaires Review: The score of 0 on the [place] Sleepiness scale suggests normal dayti me sleepiness (0-10). The score of 4 on the Insomnia Severity Scale suggests that the patien t has no clinically significant insomnia (0-7) and is mildly dissatisfied with the quality o f sleep. The Smith Depression Inventory score and severity with which it is consistent are 2 - Minimal depression. The score of 8 on the Smith Anxiety Inventory suggests mild (8-15) clau gnized anxiety. The SF36v2 scores are as follows: Physical Functionin.8, Physical Role: 54.91, General Health Perception: 49.86, Bodily Pain: 38.21, Emotional Role Functionin.17, Vitality: 64.48, Mental health: 63.95. These culminate to a Physical Composite Score of 44.81 and a Mental Composite Score of 64.9 6 which suggests the patient regards her physical wellbeing to be roughly equivalent to the mean and her mental wellbeing to be 1 standard deviation above the mean. Notably, she regar ds vitality to be 1 standard deviation above the mean; this is her highest score. Assessment: LAURA: Given the patient's history of snoring and morbid obesity, it is possible she has obstructive sleep apnea. I explained the physiology of obstructive sleep apnea. While we are awake our posture and skeletal muscles maintain an open airway. When we fall asleep, especially when we are in RE M sleep, the skeletal muscles are relaxed. This leads to the tongue covering more of the th roat and the throat muscles become more flaccid rendering the airway vulnerable. When it cl oses off air is unable to flow into the lungs. The body must partially wake the brain up so that the airway may be restored. Sleep is poly-fragmented, and the result is feeling fatig ued during the day. In the long-term, patients with obstructive sleep apnea are at risk for multiple health problems including cardiovascular disease. Delayed sleep phase syndrome: Given the patient's late bedtime and rise time it is likely s he has a delayed sleep phase. Delayed sleep phase disorder occurs when the circadian clock i s entrained at a delayed phase angle relative to social norms. Many patients who have ins omnia actually have delayed sleep phase disorder. Treatment relies on chronotherapy. That is, the intentional shifting of sleep-wake schedules using morning exposure to light and ev ening exogenous melatonin. We discussed the benefit of bright light in the morning and avoi ding light at bedtime in addition to principles of good sleep hygiene. PRINCIPLES OF GOOD SLEEP HYGIENE: 1) Awaken at nearly the same time ever day (less than 2 hours difference between work/schoo l days and off/weekend days). Don't sleep in. 2) Obtain as much bright light as possible during your desired waking hours. 3) Minimize caffeine (coffee, tea, energy drinks, soft drinks, etc.) and limit to the hours immediately after awakening. 4) Eliminate or minimize smoking and alcohol consumption, especially near bedtime. 5) Minimize or eliminate napping (unless you are a good sleeper at night and you are really sleepy during the day). 6) Darken your environment an hour or two before bedtime. 7) Consider "unwinding" and "closing" your day about an hour before your anticipated bedtim e. 8) Go to bed only when you are sleepy and no earlier than 9 hours before your anticipated w suman time. 9) Good sleepers enjoy sleeping and know that not everyone sleeps well every night. The occ asional night of poor sleep happens to everyone and isn't something to worry about. Plan: The patient will undergo home study using watch [employer] technology and follow-up afterwar d. Patient Active Problem List Diagnosis Spondylolisthesis of lumbar region L5-S1 Pars defect of lumbar spine L5-S1 Morbid obesity Sacroiliitis Trochanteric bursitis Diabetes mellitus Asthma HIP PAIN, LEFT, CHRONIC Synovial cyst of lumbar facet joint Foraminal stenosis of lumbosacral region Facet arthropathy, lumbosacral Acquired spondylolisthesis Chronic low back pain Lumbar radiculopathy S/P lumbar fusion Conductive hearing loss in right ear ETD (eustachian tube dysfunction) Nausea OME (otitis media with effusion) Essential hypertension Today, 45 minutes were spent face to face with the patient; the majority of time was spent counseling regarding obstructive sleep apnea and delayed sleep phase syndrome. Parts of this note were dictated using [employer] voice recognition software. Occasional wrong - word or sound-alike substitutions may have occurred due to the inherent limitations of [employer] ce recognition software. Please read the chart carefully and recognize, using context, alec alvarenga these substitutions have occurred. documented i n this encounter Plan of Treatment + + +--------+ + + | Name | Type | Priori | Associated Diagnoses | Order Schedule | | | | ty | | | + + +--------+ + + | * [facility] - | Outpatient | Routin | Sleep apnea, | Ordered: 02/05/2020 | | AMB Referral | Referral | e | unspecified type | | + + +--------+ + + documented as of this encounter Visit Diagnoses + + | Diagnosis | + + | Sleep apnea, unspecified type - Primary | + + | Snoring Other dyspnea and respiratory abnormality | + + documented in this encounter
--- OUTSIDE RECORDS SUMMARY | ~2020-04-02 | XMS | Encounter Summary ---
Demographics + + + | Address | [address] | | | [place] [address] | + + + | Home Phone | | + + + | Preferred Language | Unknown | + + + | Marital Status | Single | + + + | Cheondoism Affiliation | [id number] | + + + | Race | White | + + + | Ethnic Group | Not or | + + + Author + + + | Author | [facility] | | | and [place] | + + + | Organization | [facility] | [...] [place] | | | | | [address] | | + + + + + | Pratibha Hester | ECON | Unknown | + | + + + + + | Demian oPwell | ECON | Unknown | + | + + + + + Care Team Providers + +------+ + | Care Reimbursement Spec Name | Role | Phone | + +------+ + PCP | Unavailable | + +------+ + Encounter Details +--------+ + + + + | Date | Type | Department | Care Team | Description | +--------+ + + + + | 12/31/ | Hospital | [facility] | | | | 2009 | Encounter | MED CTR XRAY [address] | | | | | | [address] | | | | | | [place] [address] | | | | | | [phone] | | | +--------+ + + + [...]
--- OUTSIDE RECORDS SUMMARY | ~2020-04-02 | XMS | Encounter Summary ---
Demographics + + + | Address | [address] | | | [place] [address] | + + + | Home Phone | | + + + | Preferred Language | Unknown | + + + | Marital Status | Single | + + + | Gnosticism Affiliation | CAT | + + + | Race | Unknown | + + + | Ethnic Group | Not or | + + + Author + + + | Author | [facility] | + + + | Organization | [facility] | + + + | Address | Unknown | + + + | Phone | Unavailable | + + + Support + + +---------+ + | Name | Relationship | Address | Phone | + + +---------+ + | Alisia Nina | ECON | Unknown | | + + +---------+ + Care Team Providers + +------+ + | Care Abalone Sheller Name | Role | Phone | + +------+ + | Gracie Lewis PA-C | PCP | | + +------+ + Encounter Details +--------+ + + + + | Date | Type | Department | Care Team | Description | +--------+ + + + + | 01/06/ | Medical Social Worker | [facility] | Jeanna Sandhu, | | | 2019 | | [facility] [address] | MD [address] | | | | | [facility] | [place], [place] | | | | | Health and Healing, | [address] | | | | | [address] | [phone] | | | | | [place], [place] | | | | | | [address] | | | | | | [phone] | | | +--------+ + + + [...] | + +--------+ + + + | COVID-19 | Urgent | 01/07/2020 | | Results for this | | | | | | procedure are in the | | | | | | results section. | + +--------+ + + + documented in this encounter Results COVID-19 (01/07/2020) + + + + + + | Component | Value | Ref Range | Performed | Pathologist | | | | | At | Signature | + + + + + + | COVID-19 | Not Detected | Not Detected | NON [facility] | | | EXTERNAL | | | LAB | | | RESULTS | | | | | + + + + + + | METHOD OF | Paper | | NON [facility] | | | COMMUNICATI | | | LAB | | | ON | | | | | + + + + + + + + | Specimen | + + | | + + + +---------+ + + | Performing | Address | City/State/Zipcode | Phone Number | | Organization | | | | + +---------+ + + | NON [facility] | | | | + +---------+ + + documented in this encounter Visit Diagnoses Not on filedocumented in this encounter"
--- OUTSIDE RECORDS SUMMARY | ~2020-04-02 | XMS | Encounter Summary ---
Demographics + + + | Address | [address] | | | [place] [address] | + + + | Home Phone [...] [place] | | | | | [address] | | + + + + + | Pratibha Hester | ECON | Unknown | + | + + + + + | Demian Powell | ECON | Unknown | + | + + + + + Care Team Providers + +------+ + | Care Industrial/Organizational Psychologist Name | Role | Phone | + [...] + + | 08/13/ | Telephone | [facility] | Sascha Mir, | Other | | 2015 | | NEUROSUR[address] | DO [address] | | | | | [address] | [address] [place], [place] | | | | | [place] | [id number] | | | | | [address] | | | | | | [phone] | | | +--------+ + + + [...] 2:06 PM PSTPatie nt left message via [employer]: "Had surgery back on 12/12/14 and I am experiencing issue s with my toes again." docu mented in this encounter Plan of Treatment Not on filedocumented as of this encounter Visit Diagnoses Not on filedocumented in this encounter
--- OUTSIDE RECORDS SUMMARY | ~2020-04-02 | XMS | Encounter Summary ---
Demographics + + + | Address | [address] | | | [place] [address] | + + + | Home Phone | | + + + | Preferred Language | Unknown | + + + | Marital Status | Single | + + + | Quaker Affiliation | CAT | + + + | Race | Unknown | + + + | Ethnic Group | Not or | + + + Author + + + | Author | [facility] | + + + | Organization | [facility] | + + + | Address | Unknown | + + + | Phone | Unavailable | + + + Support + + +---------+ + | Name | Relationship | Address | Phone | + + +---------+ + | Alisia Nina | ECON | Unknown | | + + +---------+ + Care Team Providers + +------+ + | Care Spinning Lathe Operator Name | Role | Phone | + +------+ + | Gracie Lewis PA-C | PCP | | + +------+ + Encounter Details +--------+ + + + + | Date | Type | Department | Care Team | Description | +--------+ + + + + | 12/05/ | Documentati | Otolaryngology | Otology, Ent [address] | | | 2015 | on | Otology Services at | [facility] | | | | | [address] [place], [place] | | | | | [address] | [address] | | | | | Physician's | | | | | | Pavilion, 2nd floor | | | | | | [place], [place] | | | | | | [address] | | | | | | [phone] | | | +--------+ + + + [...]
--- OUTSIDE RECORDS SUMMARY | ~2020-04-02 | XMS | Encounter Summary ---
Demographics + + + | Address | [address] | | | [place] [address] | + + + | Home Phone [...] + + + | Author | [facility] | + + + | Organization | [facility] | + + + | Address | Unknown | + + + | Phone | Unavailable | + + + Support + + +---------+ + | Name | Relationship | Address | Phone | + + +---------+ + | Alisia Nina | ECON | Unknown | | + + +---------+ + Care Team Providers + +------+ + | Care Typewriter Aligner Name | Role | Phone | + [...] | | | | | ear | [facility], | | | | | Dizziness | Rd | 10th Floor | | | | | Procedures | [place], [place] | [place], [place] | | | | | [place] | [address] | [address] | | | | | [place] | Phone: | Phone: | | | | | DISEASE WO | [phone] | [phone] | | | | | [place] [address] | Fax: | Fax: | | | | | SCAN,ORBIT/S | [phone] | [phone] | | | | | CORY/POST | [...] | | | | | ear | [facility] | [facility], | | | | | Dizziness | Rd | 10th Floor | | | | | Procedures | [place], [place] | [place], [place] | | | | | [place] | [address] | [address] | | | | | [place] | Phone: | Phone: | | | | | DISEASE WO | [phone] | [phone] | | | | | [place] [address] | Fax: | Fax: | | | | | SCAN,ORBIT/S | [phone] | [phone] | | | | | CORY/POST | [...] | 2014 | Encounter | Services at [facility] | | | | | | [address] | | | | | | Li Kruger MS[place]MA | | | | | | [address] | | | | | | [place], [place] | | | | | | [address] | | | | | | [phone] | | | +--------+ + + + [...] | | + +---------+ + + | [facility] DEPARTMENT OF | | | | | RADIOLOGY | | | | + +---------+ + + documented in this encounter Visit Diagnoses + + | Diagnosis | + + | Conductive hearing loss in right ear Conductive hearing loss, unilateral | + + | Dizziness Dizziness and giddiness | + + documented in this encounter"
--- OUTSIDE RECORDS SUMMARY | ~2020-04-02 | XMS | Encounter Summary ---
Demographics + + + | Address | [address] | | | [place] [address] | + + + | Home Phone | | + + + | Preferred Language | Unknown | + + + | Marital Status | Single | + + + | Anabaptism Affiliation | CAT | + + + | Race | Unknown | + + + | Ethnic Group | Not or | + + + Author + + + | Author | [facility] | + + + | Organization | [facility] | + + + | Address | Unknown | + + + | Phone | Unavailable | + + + Support + + +---------+ + | Name | Relationship | Address | Phone | + + +---------+ + | Alisia Nina | ECON | Unknown | | + + +---------+ + Care Team Providers + +------+ + | Care Gang Drill Operator Name | Role | Phone | [...] | | | | | ear | [facility], | | | | | Dizziness | Rd | 10th Floor | | | | | Procedures | [place], [place] | [place], [place] | | | | | [place] | [address] | [address] | | | | | [place]EN[place] | Phone: | Phone: | | | | | DISEASE WO | [phone] | [phone] | | | | | [place] [address] | Fax: | Fax: | | | | | SCAN,ORBIT/S | [phone] | [phone] | | | | | CORY/POST | [...] | | | media, not | | [place], [place] | | | | | specified as | | [address] | | | | | acute or | | Phone: | | | | | chronic | | [phone] | | | | | Conductive | | Fax: | | | | | hearing | | [phone] | | | | | loss, | [...] | | | | [address] | [place], [place] | Dizziness | | | | Physician's | [address] | | | | | Pavilion, 2nd floor | [phone] | | | | | [place], [place] | | | | | | [address] | | | | | | [phone] | | | +--------+---------+ + + + [...] coordinating of care. Windy Rodriguez MD PhD Ticket Manager Otology, Neurotology & Skull Base Surgery documented [...] | | + +---------+ + + | [facility] DEPARTMENT OF | | | [...]
--- OUTSIDE RECORDS SUMMARY | ~2020-04-02 | XMS | Encounter Summary ---
Demographics + + + | Address | [address] | | | [place] [address] | + + + | Home Phone [...] Author | [facility] | | | and [place] | + + + | Organization | [facility] | | | [...] [place] | | | | | [address] | | + + + + + | Pratibha Hester | ECON | Unknown | + | + + + + + | Demian Powell | ECON | Unknown | + | + + + + + Care Team Providers + +------+ + | Care Marshmallow Machine Worker Name | Role | Phone | [...] 2011 | | NEUROSURGERY [address] | F, [address] | lumbar region | | | | [address] | [address] [place] | L5-S1; Pars defect | | | | [place] | [address] | of lumbar spine | | | | [address] | [phone] | L5-S1; Degenerative | | | | [phone] | | disc disease, lumbar | | | | | | L4-5; Radiculopathy | | | | | | of lumbar region | | | | | | L5-S1; Morbid | | | | | | obesity ([facility]); | | | | | | Sacroiliitis ([facility]); | | | | | | Trochanteric | | | | | | bursitis; Diabetes | | | | | | mellitus ([facility]); | | | | | | Asthma [...] unspecified | + + | Morbid obesity ([facility]) Morbid obesity | + + | Sacroiliitis ([facility]) Sacroiliitis, not elsewhere classified | + + | Trochanteric bursitis Enthesopathy of hip region | + + | Diabetes mellitus ([facility]) Type II or unspecified type diabetes mellitus without mention | | of complication, not stated as uncontrolled | + + | Asthma Unspecified asthma | + + documented in this encounter
--- OUTSIDE RECORDS SUMMARY | ~2020-04-02 | XMS | Encounter Summary ---
Demographics + + + | Address | [address] | | | [place] [address] | + + + | Home Phone [...] Author + + + | Author | [facility] | + + + | Organization | [facility] | + + + | Address | Unknown | + + + | Phone | Unavailable | + + + Support + + +---------+ + | Name | Relationship | Address | Phone | + + +---------+ + | Alisia Nina | ECON | Unknown | | + + +---------+ + Care Team Providers + +------+ + | Care Power And Recovery Shift Engineer Name | Role | Phone | + +------+ + | Gracie Lewis PA-C | PCP | | + +------+ + Encounter Details +--------+ + + + + | Date | Type | Department | Care Team | Description | +--------+ + + + + | 03/07/ | Transcribe | [facility] | Transcribe | | | 2019 | Orders | [facility] [address] | Encounter, Provider, | | | | | [facility] [place] for | [address] | | | | | Health and Healing, | [place] [address] | | | | | [address] | | | | | | [place], [place] | | | | | | [address] | | | | | | [phone] | | | +--------+ + + + [...] on filedocumented as of this encounter Results COLONOSCOPY (01/09/2020 7:17 AM PDT) + + | Specimen | + + | | + + + + + | Narrative | Performed At | + + + | MRN: | [facility] | | [id number] Date: 01/09/2020Patient Name: Demian Hooker #: | ENDOSCOPY | | [id number] of : 1970CSN: [id number] Type: | | | AmbulatoryRoom: Endo 6Procedure: | | | ColonoscopyIndications: Abdominal painProviders: | | | LEYDI SHOOK MD (Doctor), SANTO ALONSO, RN | | | (Nurse), DORI DESIR (Quality Assurance Specialist)Referring MD: | | | ANNETTE JORGENSEN-CRequesting Provider: Medicines: | | | Monitored Anesthesia CareComplications: No | | | immediate complications. Estimated blood loss: None.Procedure: | | | Pre-Anesthesia Assessment: - | | | Prior to the procedure, a History and Physical was | | | performed, and patient medications and allergies were | | | reviewed. The patient's tolerance of | | | previous anesthesia was also reviewed. | | | The risks and benefits of the procedure | | | and the sedation options and risks were | | | discussed with the patient. All questions were answered, | | | and informed consent was obtained. Prior | | | Anticoagulants: The patient has taken | | | no previous anticoagulant or | | | antiplatelet agents. ASA Grade Assessment: III - A | | | patient with severe systemic disease. After reviewing | | | the risks and benefits, the patient was | | | deemed in satisfactory condition to | | | undergo the procedure. - ASA Grade | | | Assessment: III - A patient with severe | | | systemic disease. Prior to the | | | procedure, a History and Physical with | | | airway assessment was performed (see patient record), | | | and patient medications and allergies were reviewed. | | | The risks and benefits of the procedure | | | and the sedation options and risks | | | were discussed. All questions were | | | answered and informed consent was obtained. After | | | reviewing the risks and benefits, the patient was deemed | | | in satisfactory condition to undergo the | | | procedure. Immediately prior to | | | administration of medications, the | | | patient was re-assessed for adequacy to receive | | | sedatives. The heart rate, respiratory rate, oxygen | | | saturations, blood pressure, adequacy of | | | pulmonary ventilation, and response to | | | care were monitored throughout the | | | procedure. The physical status of the | | | patient was re-assessed after the procedure. The Olympus | | | [id number] Colonoscope #[id number] was introduced | | | through the anus and advanced to the | | | terminal ileum, with identification of | | | the appendiceal orifice and IC valve. | | | The colonoscopy was performed without difficulty. The | | | patient tolerated the procedure well. The quality of | | | the bowel preparation was evaluated | | | using the BBPS (Landing Bowel | | | Preparation Scale) with scores of: Right Colon = 3 | | | (entire mucosa seen well with no residual staining, | | | small fragments of stool or opaque liquid), | | | Transverse Colon = 3 (entire mucosa | | | seen well with no residual staining, | | | small fragments of stool or opaque liquid) and | | | Left Colon = 3 (entire mucosa seen well with no residual | | | staining, small fragments of stool or | | | opaque liquid). The total BBPS score | | | equals 9. The terminal ileum, ileocecal | | | valve, appendiceal orifice, and rectum were | | | photographed.Estimated Blood Loss: Estimated blood loss: | | | none.Findings: Three sessile polyps were found in the ascending | | | colon. The polyps were 3 to 8 mm in size. These polyps were | | | removed with a cold snare. Resection and retrieval were | | | complete. The terminal ileum appeared normal. Internal | | | hemorrhoids were found during retroflexion.Impression: - | | | Three 3 to 8 mm polyps in the ascending colon, removed | | | with a cold snare. Resected and retrieved. | | | - The examined portion of the ileum was normal. | | | - Internal hemorrhoids.Recommendation: | | | - Discharge patient to home. - | | | Repeat colonoscopy for surveillance based on pathology | | | results. - Patient has a | | | contact number available for | | | emergencies. The signs and symptoms of potential delayed | | | complications were discussed with the patient. | | | Return to normal activities tomorrow. | | | Written discharge instructions were | | | provided to the patient. - Resume | | | previous diet. - Continue present | | | medications.LEYDI SHOOK MD01/09/2020 8:48:15 AMThis report has been | | | signed electronically.Number of Addenda: 0Note Initiated On: 01/09/2020 | | | 7:17 AM | | |Note Initiated On: 01/09/2020 7:17 AM | | + + + + +---------+ + + | Performing | Address | City/State/Zipcode | Phone Number | | Organization | | | | + +---------+ + + | [facility] | | | | + +---------+ + + EGD (01/09/2020 7:17 AM PDT) + + | Specimen | + + | | + + + + + | Narrative | Performed At | + + + | MRN: | [facility] | | [id number] Date: 01/09/2020Patient Name: Demian Hooker #: | ENDOSCOPY | | [id number] of : 1970CSN: [id number] Type: | | | AmbulatoryRoom: Endo 6Procedure: Upper GI | | | endoscopyIndications: Abdominal painProviders: | | | LEYDI SHOOK MD (Doctor), SANTO ALONSO RN | | | (Nurse), DORI DESIR (Quality Assurance Specialist)Referring MD: | | | ANNETTE JORGENSEN-CRequesting Provider: Medicines: | | | Monitored Anesthesia CareComplications: No | | | immediate complications.Procedure: Prior to the | | | procedure, a History and Physical with | | | airway assessment was performed (see patient record), | | | and patient medications and allergies were reviewed. | | | The risks and benefits of the procedure | | | and the sedation options and risks | | | were discussed. All questions were | | | answered and informed consent was obtained. After | | | reviewing the risks and benefits, the patient was deemed | | | in satisfactory condition to undergo the | | | procedure. Immediately prior to | | | administration of medications, the | | | patient was re-assessed for adequacy to receive | | | sedatives. The heart rate, respiratory rate, oxygen | | | saturations, blood pressure, adequacy of | | | pulmonary ventilation, and response to | | | care were monitored throughout the | | | procedure. The physical status of the | | | patient was re-assessed after the procedure. | | | The Olympus GIF-HQ190 Gastroscope #[id number] was | | | introduced through the mouth, and advanced to the | | | second part of duodenum.Estimated Blood | | | Loss: Estimated blood loss: none.Findings: LA Grade A | | | (one or more mucosal breaks less than 5 mm, not extending | | | between tops of 2 mucosal folds) esophagitis with no bleeding was | | | found 39 to 40 cm from the incisors. Multiple less than 5 | | | mm sessile polyps with no stigmata of recent bleeding were | | | found in the gastric fundus. Biopsies were taken with a cold | | | forceps for histology. The examined duodenum was normal. | | | Biopsies for histology were taken with a cold forceps for | | | evaluation of celiac disease.Impression: - LA Grade A | | | reflux esophagitis. - Multiple gastric | | | polyps. Biopsied. - Normal examined | | | duodenum. Biopsied.Recommendation: - Await pathology results. | | | - Proceed to colonoscopyLEYDI SHOOK | | | 01/09/2020 8:45:10 AMThis report has been signed | | | electronically.Number of Addenda: 0Note Initiated On: 01/09/2020 7:17 AM | | | - Multiple gastric polyps. Biopsied. | | | - Normal examined duodenum. Biopsied. | | |Recommendation: - Await pathology results. | | | - Proceed to colonoscopy | | |LEYDI SHOOK MD | | |01/09/2020 8:45:10 AM | | |This report has been signed electronically. | | |Number of Addenda: 0 | | |Note Initiated On: 01/09/2020 7:17 AM | | + + + + +---------+ + + | Performing | Address | City/State/Zipcode | Phone Number | | Organization | | | | + +---------+ + + | [facility] | | | | + +---------+ + [...]
--- OUTSIDE RECORDS SUMMARY | ~2020-04-02 | XMS | Encounter Summary ---
Demographics + + + | Address | [address] | | | [place] [address] | + + + | Home Phone | | + + + | Preferred Language | Unknown | + + + | Marital Status | Single | + + + | Holiness Affiliation | 1041 | + + + | Race | White | + + + | Ethnic Group | Not or | + + + Author + + + | Author | [facility] | | | and [place] | + + + | Organization | [facility] | | | [...] [place] | | | | | [address] | | + + + + + | Pratibha Hester | ECON | Unknown | + | + + + + + | Demian Powell | ECON | Unknown | + | + + + + + Care Team Providers + +------+ + | Care Bottom Brusher Name | Role | Phone | + +------+ + | Quentin Manriquez PA-C | MARCK | | + +------+ + Reason for Visit + +--------+ + | Reason | Onset | Comments | | | Date | | + +--------+ + | Imaging Only | 12/16/ | | | | 2015 | | + +--------+ + Encounter Details +--------+ + + + + | Date | Type | Department | Care Team | Description | +--------+ + + + + | 12/16/ | Telephone | [facility] | Sascha Mir, | Imaging Only | | 2015 | | NEUROSUR[address]ERY [address] | DO [address] | | | | | [address] | [address] [place] | | | | | [place] | [id number] | | | | | [address] | | | | | | [phone] | | | +--------+ + + + [...] this encounter Miscellaneous Notes Telephone Encounter - Yoko Aguillon RN - 12/24/2015 10:29 AM PDTVMx3 Letter generated and sent to address on file. elephone Encounter - Yoko Aguillon RN - 12/23/2015 1:00 PM P [id number] signed by Yoko Aguillon RN at 12/23/2015 1:00 PM PDTTelephone Encou nter - Yoko Aguillon RN - 12/22/2015 10:13 AM PDTCalled and left VM requesting a callbac k. elephone Encounte r - Sascha Mir DO - 12/19/2015 2:48 PM PDTX-rays look great. Healing is progressing n icely. Thanks. elephone Encounter - Yoko Aguillon RN - 12/19/2015 1:07 PM PDTS/P L5-S1 Fusion on 12/12/14 1 YR PO imaging available on [facility]. Please Advise elepho ne Encounter - Yoko Aguillon RN - 12/19/2015 12:09 PM PDTCalled [facility] and requested imagmichelle g. elephone Encounte Julien Prieto - 12/19/2015 10:59 AM PDTPatient called in to let us know that she has com pleted her xrays @ [facility] eleph one Encounter - Virgen Pena RN - 12/19/2015 9:38 AM PDTDanimonet from [facility] adiology called asking if it was okay for an AP view to be Supine, and have the Lat view be weight bearing. Phuong was informed to that it is preferred to have both views to be weight bearing, and do the supine view only if it was completely necessary. Phuong verbalized understanding. elephone Encounter - Yoko Aguillon RN - 12/17/2015 2:52 PM P DTLumbar xray order faxed via [employer] to [facility]. Reminder set. eleph one Encounter - Melida Lindquist - 12/17/2015 2:49 PM PDTPatient returned call. She would li ke to have her xrays completed at [facility]. I asked her to call us when they're complete. Electro nically signed by Melida Lindquist at 12/17/2015 2:50 PM PDTTelephone Encounter - Cande Aguillon RN - 12/17/2015 2:43 PM PDTS/P L5-S1 Fusion on 12/12/14 Called patient to remind her to complete her 1 YR PO imaging. Left VM requesting a callback. documented in this encounter Plan of Treatment Not on filedocumented as of this encounter Visit Diagnoses Not on filedocumented in this encounter"
--- OUTSIDE RECORDS SUMMARY | ~2020-04-02 | XMS | Encounter Summary ---
Demographics + + + | Address | [address] | | | [place] [address] | + + + | Home Phone [...] + + | Author | [facility] | | | and [place] | + + + | Organization | [facility] | | | [...] [place] | | | | | [address] | | + + + + + | Pratibha Hester | ECON | Unknown | + | + + + + + | Demian Powell | ECON | Unknown | + | + + + + + Care Team Providers + +------+ + | Care Consultant Electronics Name | Role | Phone | + [...] | | | | | unspecified | TRIBUNAL MEMBER [address] | [place], | | | | | type | [address] | [place] [address] | | | | | Procedures | [place], | Phone: | | | | | [place] SLE[place] | [place] [address] | [phone] | | | | | STUDY, | Phone: | Fax: | | | | | UNATTENDED, | [phone] | [phone] | | | | | RECORD HEART | Fax: | | | | | | RATE/O2 | [phone] | | | | | | SAT/RESP [...] Adult Health | sleep apnea | PA-C [address] | ROBERTO Bowman | | | | / Sleep | (adult) | | [address] | | | | Medicine | (pediatric) | [address] | [address] | | | | | CONSULT [address] | WAY | [place], | | | | | [address] | [place], | [place] [address] | | | | | GET REF FROM | [place] [address] | Phone: | | | | | [facility] | Phone: | [phone] | | | | | Procedures | [phone] | Fax: | | | | | NEW PATIENT | Fax: | [phone] | | | | | | [phone] | | +--------+--------+ + + + + Encounter Details +--------+---------+ + + + | Date | Type | Department | Care Team | Description | +--------+---------+ + + + | 02/04/ | Office | [facility] | Jeanna Wheeler | Sleep apnea, | | 2019 | Visit | SLEEP DISORDER [address] | ROBERTO Bowman [address] | unspecified type | | | | [address] [place] | [address] [place] | (Primary Dx); | | | | [place] [address] | [place] [address] | Snoring | | | | [phone] | [phone] | | | | | | | [...] in this encounter Progress Notes Farnaz Alexandra, Integrated Logistics Support Manager - 02/05/2020 10:00 AM PDTFormatting of this note might be d ifferent from the original. 02/05/20 0900 Smith Depression Inventory-II Depression Score 2 - Minimal depression Insomnia Severity Index Insomnia Severity Index 4 Toledo Sleepiness Scale 1. Sitting and reading 0 [...] diff erent from the original. Yessenia Negro [facility] [place] [address] Ref: Gracie Lewis P* CC: Chief Complaint [...] Chronic low back pain (07/22/2015), Diabetes mellitus ([facility]) (2013), Essent ial hypertension, Gastric reflux, Heart attack ([facility]) (2009), Lumbar radiculopathy ( 5), Migraine, Morbid obesity ([facility]), Multiple allergies, Pars defect of lumbar spine, [...] 324 mg by mouth daily (with breakfast). Bskghsc-Owlbklxdnbao-Rkdjjrmrk (TRI-RAJ) 0.01-4-0.05 % CREA APPLY TO CLEAN [...] Laterality Date ADENOIDECTOMY SECTION, LOW TRANSVERSE 1995 [facility]; [place] SECTION, LOW TRANSVERSE 2005 [facility]; [place] CHOLECYSTECTOMY LUMBAR LAMINECTOMY N/A 12/12/2014 Procedure: L5-S1 Transforaminal Lumbar Interbody Fusion; Surgeon: Sascha Mir DO; Lo cation: [facility] MAIN OR SHOULDER SURGERY Right TONSILLECTOMY [...] 07/01/2008, 07/07/2010, 04/08/2011, 05/18/2013 , 05/07/2014 INFLUENZA, A5B1-55, UNSPECIFIED 08/05/2009 PNEUMOCOCCAL, UNSPECIFIED FORMULATION 07/07/2010 Family [...] Some college, no degree Occupational History 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 She has 2 children, and she is [...] Review: The score of 0 on the Toledo Sleepiness scale suggests normal dayti me sleepiness [...] patient will undergo home study using watch Diabetica technology and follow-up afterwar d. Patient Active [...] Parts of this note were dictated using Granite Horizon voice recognition software. Occasional wrong - word or sound-alike substitutions may have occurred due to the inherent limitations of Deal Pepperi ce recognition software. Please read the chart carefully and recognize, using context, alec alvarenga these substitutions have occurred. documented i n this encounter Plan of Treatment + + +--------+ + + | Name | Type | Priori | Associated Diagnoses | Order Schedule | | | | ty | | | + + +--------+ + + | * [facility] Sleep Center - | Outpatient | [...]
--- OUTSIDE RECORDS SUMMARY | ~2020-04-02 | XMS | Encounter Summary ---
Demographics + + + | Address | [address] | | | [place] [address] | + + + | Home Phone | | + + + | Preferred Language | Unknown | + + + | Marital Status | Single | + + + | Catholic Affiliation | 1041 | + + + | Race | White | + + + | Ethnic Group | Not or | + + + Author + + + | Author | [facility] | | | and [place] | + + + | Organization | [facility] | | | [...] [place] | | | | | [address] | | + + + + + | Pratibha Hester | ECON | Unknown | + | + + + + + | Demian Powell | ECON | Unknown | + | + + + + + Care Team Providers + +------+ + | Care Canning Machine Operator Name | Role | Phone | + +------+ + | Jannette Boyle PA-C | PCP | | + +------+ + Reason for Visit + +--------+ + | Reason | Onset | Comments | | | Date | | + +--------+ + | Appointment | 02/24/ | | | | 2018 | | + +--------+ + Encounter Details +--------+ + + + + | Date | Type | Department | Care Team | Description | +--------+ + + + + | 02/24/ | Telephone | [facility] | Vega Smith MD | Appointment | | 2017 | | GASTROENTEROLOGY | [address], [place] | | | | | [address] [place] | [address] [place] [address] | | | | | [address] [place], [place] | [address] | | | | | [address] | | | | | | [phone] | | | +--------+ + + + [...] this encounter Miscellaneous Notes Telephone Encounter - Vandana Borges - 02/24/2018 11:41 AM PDTPatient called back, I let her know of Dr. mSith's review, She verbalized understanding. Closing referral. Electronica lly signed by Vandana Borges at 02/24/2018 11:42 AM PDTTelephone Encounter - Sri Borges corie - 02/24/2018 8:22 AM PDTLVM returning patient's call this morning, she was wondering t he status of her referral. Dr. Smith had reviewed it and concurs with the suggestion to [facility] . documented in this enc ounter Plan of Treatment Not on filedocumented as of this encounter Visit Diagnoses Not on filedocumented in this encounter"
--- OUTSIDE RECORDS SUMMARY | ~2020-04-02 | XMS | Encounter Summary ---
Demographics + + + | Address | [address] | | | [place] [address] | + + + | Home Phone | | + + + | Preferred Language | Unknown | + + + | Marital Status | Single | + + + | Mandaen Affiliation | 1041 | + + + [...] [place] | | | | | [address] | | + + + + + | Pratibha Hester | ECON | Unknown | + | + + + + + | Demian Powell | ECON | Unknown | + | + + + + + Care Team Providers + +------+ + | Care Flame Annealing Machine Setter Name | Role | Phone | + +------+ + | Quentin Manriquez PA-C | MARCK | | + +------+ + Encounter Details +--------+ + + + + | Date | Type | Department | Care Team | Description | +--------+ + + + + | 12/15/ | Orders Only | [facility] | Sascha Mir, | Spondylolisthesis of | | 2016 | | NEUROSURGERY [address] | DO [address] | lumbar region; S/P | | | | [address] | [address] [place], [place] | lumbar fusion | | | | [place], [place] | [address] | | | | | [address] | | | | | | [phone] | | | +--------+ + + + [...] + + | Spondylolisthesis of lumbar region Acquired spondylolisthesis | + + | S/P lumbar fusion Arthrodesis status | + + documented in this encounter"
--- OUTSIDE RECORDS SUMMARY | ~2020-04-02 | XMS | Encounter Summary ---
Demographics + + + | Address | [address] | | | [place] [address] | + + + | Home Phone [...] Team Providers + +------+ + | Care Supervisor Powdered Metal Name | Role | Phone | + [...] | | Medicine Clinic at | [place], [place] | | | | | [facility] | [address] | | | | | [address] | | | | | | [place] for [facility] | | | | | | and Healing, | | | | | | [address] | | | | | | [facility] [place] | | | | | | [address] | | | | | | [phone] | | | +--------+ + + + [...]
--- OUTSIDE RECORDS SUMMARY | ~2020-04-02 | XMS | Encounter Summary ---
Demographics + + + | Address | [address] | | | [place] [address] | + + + | Home Phone [...] Providers + +------+ + | Care Industrial Relations Representative Name | Role | Phone | + +------+ + | Gracie Lewis PA-C | PCP | | + +------+ + Encounter Details +--------+ + + + + | Date | Type | Department | Care Team | Description | +--------+ + + + + | 10/03/ | Documentati | Otolaryngology | Otology, Ent [address]181 | | | 2014 | on | Otology Services at | [facility] | | | | | [facility] [address] [place], [place] | | | | | [address] | [address] | | | | | Physician's | | | | | | Pavilion, 2nd floor | | | | | | [place], [place] | | | | | | [address] | | | | | | [phone] | | | +--------+ + + + [...]
--- OUTSIDE RECORDS SUMMARY | ~2020-04-02 | XMS | Encounter Summary ---
Demographics + + + | Address | [address] | | | [place] [address] | + + + | Home Phone [...] | Author | [facility] | | | and [place] | + + + | Organization | [facility] | | [...] [place] | | | | | [address] | | + + + + + | Pratibha Hester | ECON | Unknown | + | + + + + + | Demian Powell | ECON | Unknown | + | + + + + + Care Team Providers + +------+ + | Care Search Marketing Coordinator Name | Role | Phone | [...] | | | [address] | [place], [place] | | | | | [place], [place] | [address] | | | | | [address] | | | | | | [phone] | | | +--------+ + + + [...] MV A Ollie: 0.67 m/s MV Dec [place]: 3.90 m/s2 MV | | | DecT: 192.12 ms MV E Ollie: 0.75 m/s MV E/A Ratio: 1.11 MV | | | PHT: 55.71 ms MVA By PHT: 3.94 cm2 Septal e': 0.04 m/s | | | Septal E/e': 15.99 Lateral e': 0.06 m/s Lateral E/e': 11.01 | | | Insert Cutter: MEME Authenticated by: Itzel Mendoza Report | | | Date/Time: 06-01-2018 19:30:56 | | + + + + + | Procedure Note | + + | Antoine Steele Conversion - 03/29/2019 4:52 PM PDT Patient [...] cmLVIDd: 4.40 cmLVPWd: 0.94 cmLVOT Area: 3.61 ak2ZGDV Diam: 2.14 cm%FS: 30.32 | | %EF(Teich): [...] mlLAESV Index (A-L): 20.19 ml/m2LAAs A2C: 13.00 pn0VZUGY A-L | | A2C: 36.94 mlLALs A2C: 3.88 cmLAAs A4C: 15.93 lw3UZLOY A-L A4C: 49.93 mlLALs | | A4C: 4.31 cmRAAs: 10.82 iz4URITD A-L: 24.00 mlRAESV MOD: 22.53 mlRALs: 4.14 | | cmTAPSE: 1.61 cmAV maxP.99 mmHgAV meanP.27 mmHgAV Vmax: 1.73 m/Trang | | Vmean: 1.19 m/Trang VTI: 27.27 cmAVA Vmax: 2.35 cm2AVA (VTI): 2.65 qx3MTWQ (Vmax): | | 0.00 cm2/m2AVAI (VTI): 0.00 cm2/m2LVOT maxP.08 mmHgLVOT meanP.38 | | mmHgLVSI Dopp: 32.31 ml/m2LVSV Dopp: 72.37 mlLVOT Vmax: 1.12 m/sLVOT Vmean: 0.72 | | m/sLVOT VTI: 20.04 cmMV A Ollie: 0.67 m/sMV Dec [place]: 3.90 m/s2MV DecT: 192.12 | | msMV E Ollie: 0.75 m/sMV E/A Ratio: 1.11MV PHT: 55.71 msMVA By PHT: 3.94 fk9Gmgcoh | | e': 0.04 m/sSeptal E/e': 15.99Lateral e': 0.06 m/sLateral E/e': 11.01 | | Insert Cutter: MEMEAuthenticated by: Itzel Ariasnortheast miss[facility] Date/Time: 06-01-2018 19:30:56 | | IMPRESSION: 1. [...] A Ollie: 0.67 m/s | |MV Dec [place]: 3.90 m/s2 | |MV DecT: 192.12 ms | |MV E Ollie: 0.75 m/s | |MV E/A Ratio: 1.11 | |MV PHT: 55.71 ms | |MVA By PHT: 3.94 cm2 | |Septal e': 0.04 m/s | |Septal E/e': 15.99 | |Lateral e': 0.06 m/s | |Lateral E/e': 11.01 | | | |Insert Cutter: DBS | |Authenticated by: Itzel Mendoza | [...]
--- OUTSIDE RECORDS SUMMARY | ~2020-04-02 | XMS | Encounter Summary ---
Demographics + + + | Address | [address] | | | [place] [address] | + + + | Home Phone [...] + + + | Author | [facility] | | | and [place] | + + + | Organization | [facility] | | [...] [place] | | | | | [address] | | + + + + + | Pratibha Hester | ECON | Unknown | + | + + + + + | Demian Powell | ECON | Unknown | + | + + + + + Care Team Providers + +------+ + | Care Operations Accountant Name | Role | Phone | + +------+ + | Quentin Manriquez PA-C | MARCK | | + +------+ + Encounter Details +--------+ + + + + | Date | Type | Department | Care Team | Description | +--------+ + + + + | 12/05/ | Hospital | [facility] | Sascha Mri, | | | 2014 | Encounter | MED CTR LABORATORY | DO [address] | | | | | [address] | [address] | | | | | [facility] [place] | [id number] | | | | | [address] | | | | | | [phone] | | | +--------+ + + + [...]
--- OUTSIDE RECORDS SUMMARY | ~2020-04-02 | XMS | Encounter Summary ---
Demographics + + + | Address | [address] | | | [place] [address] | + + + | Home Phone [...] Author | [facility] | | | and [place] | + + + | Organization | [facility] | | | and [place] | + + + | Address | Unknown | + + + | Phone | Unavailable | + + + Support + + + + + | Name | Relationship | Address | Phone | + + + + + | Uceh Nina | ECON | [address] | + | | | | [place] | | | | | [address] | | + + + + + | Pratibha Hester | ECON | Unknown | + | + + + + + | Demian Powell | ECON | Unknown | + | + + + + + Care Team Providers + +------+ + | Care Manager Aviation Name | Role | Phone | + +------+ + PCP | Unavailable | + +------+ + Encounter Details +--------+ + + + + | Date | Type | Department | Care Team | Description | +--------+ + + + + | 12/31/ | Hospital | [facility] | | | | 2009 | Encounter | MED CTR XRAY [address] | | | | | | [place] | | | | | | [place] [address] | | | | | | [phone] | | | +--------+ + + + [...]
--- OUTSIDE RECORDS SUMMARY | ~2020-04-02 | XMS | Encounter Summary ---
Demographics + + + | Address | [address] | | | [place] [address] | + + + | Home Phone [...] Author + + + | Author | [facility] | | | and [place] | + + + | Organization | [facility] | | | [...] [place] | | | | | [address] | | + + + + + | Pratibha Hester | ECON | Unknown | + | + + + + + | Demian Powell | ECON | Unknown | + | + + + + + Care Team Providers + +------+ + | Care Steeler Name | Role | Phone | + [...] | | [address] | [place] [address] | | | | | [address] | [phone] | | | | | [phone] | | | +--------+--------+ + + + [...]
--- OUTSIDE RECORDS SUMMARY | ~2020-04-02 | XMS | Encounter Summary ---
Demographics + + + | Address | [address] | | | [place] [address] | + + + | Home Phone | | + + + | Preferred Language | Unknown | + + + | Marital Status | Single | + + + | Latter Day Affiliation | 1041 | + + + | Race | White | + + + | Ethnic Group | Not or | + + + Author + + + | Author | [facility] | | | and [place] | + + + | Organization | [facility] | | | [...] [place] | | | | | [address] | | + + + + + | Pratibha Hester | ECON | Unknown | + | + + + + + | Demian Powell | ECON | Unknown | + | + + + + + Care Team Providers + +------+ + | Care Marble Ceiling Installer Name | Role | Phone | + +------+ + | Quentin Manriquez PA-C | MARCK | | + +------+ + Encounter Details +--------+ + + + + | Date | Type | Department | Care Team | Description | +--------+ + + + + | 12/05/ | Hospital | [facility] | Sascha Mir, | Bilateral lumbar | | 2015 | Encounter | MED CTR XRAY [address] | DO [address] | radiculopathy; HIP | | | | [place] | [address] [place], [place] | PAIN, LEFT, CHRONIC; | | | | [place] [address] | [address] | Spondylolisthesis | | | | [phone] | | of lumbar region | | [...] + +--------+ + + + | XR CHEST PA AND | Routin | 12/05/2014 | Bilateral lumbar | Results for this | | LATERAL | e | 12:21 PM | radiculopathy HIP | procedure are in [...] + documented in this encounter Results XR Chest PA and Lateral (12/05/2014 12:21 PM PDT) + + | Specimen | + + | | + + + + + | Narrative | Performed At | + + + | XR CHEST PA AND LATERAL. 12/05/2014 12:21 PM HISTORY: pre | [facility] | | operative exam . COMPARISON: None available. FINDINGS: | [facility] | | Heart size and mediastinal contours are within normal limits. The | [facility] | | lungs are clear, without pleural effusion or pneumothorax. Diffuse | - IMAGING | | degenerative disc disease. No acute osseous or soft tissue | | | abnormalities. IMPRESSION - No acute radiographic abnormality | | | of the chest. Dictated and Signed by: Ilia Brooks MD | | | Electronically signed: 12/06/2014 7:12 AM | | + + + + + | Procedure Note | + + | Antoine Steele Results In - 12/06/2014 7:15 AM PDT XR CHEST PA AND LATERAL. 12/05/2014 | | 12:21 PMHISTORY: pre operative exam . COMPARISON: None available.FINDINGS:Heart size | | and mediastinal contours are within normal limits. The lungs areclear, without pleural | | effusion or pneumothorax. Diffuse degenerative discdisease. No acute osseous or soft | | tissue abnormalities.IMPRESSION -No acute radiographic abnormality of the chest.Dictated | | and Signed by: Ilia Brooks MD Electronically signed: 12/06/2014 7:12 AM | |FINDINGS: | |Heart size and mediastinal contours are within normal limits. The lungs are | |clear, without pleural effusion or pneumothorax. Diffuse degenerative disc | |disease. No acute osseous or soft tissue abnormalities. | | | | | |IMPRESSION - | |No acute radiographic abnormality of the chest. | | | |Dictated and Signed by: Ilia Brooks MD | | Electronically signed: 12/06/2014 7:12 AM | + + + + + + + | Performing | Address | City/State/Zipcode | Phone Number | | Organization | | | | + + + + + | [facility] | [address] | [place], [place] | [phone] | | [facility] | | [address] | | | - IMAGING | | [...]
--- OUTSIDE RECORDS SUMMARY | ~2020-04-02 | XMS | Encounter Summary ---
Demographics + + + | Address | [address] | | | [place] [address] | + + + | Home Phone [...] [place] | | | | | [address] | | + + + + + | Pratibha Hester | ECON | Unknown | + | + + + + + | Demian Powell | ECON | Unknown | + | + + + + + Care Team Providers + +------+ + | Care Treating And Pumping Supervisor Name | Role | Phone | + +------+ + | Quentin Manriquez PA-C | MRACK | | + +------+ + Reason for [...] + + | 12/19/ | Telephone | [facility] | Sascha Mir, | Other | | 2014 | | NEUROSURGERY [address] | DO [address] | | | | | [address] | [address] [place], [place] | | | | | [address] | [id number] | | | | | [address] | | | | | | [phone] | | | +--------+ + + + [...] spoke with Leticia, the charge nurse at [facility] [place]. She state s that she is familiar with Demian's behaviors and was just down to see her today and she see med okay. She did state that she would go down and assess her. ELNIA FAIRBANKS documented in this encounter Plan of Treatment Not on filedocumented as of this encounter Visit Diagnoses Not on filedocumented in this encounter"
--- OUTSIDE RECORDS SUMMARY | ~2020-04-02 | XMS | Encounter Summary ---
Demographics + + + | Address | [address] | | | [place] [address] | + + + | Home Phone [...] Team Providers + +------+ + | Care Morphologist Name | Role | Phone | + [...] | | | | ([facility] at [facility] [address] | [facility] | | | | | [address] | [place], [place] | | | | | Mailcode: [place] | [address] | | | | | [facility] and | [phone] | | | | | [facility] | | | | | | [place], [place] | | | | | | [address] | | | | | | [phone] | | | +--------+ + + + [...] total | 8000 mL | 0 | / | | | [id number] -5.86 | (1.5 jugs) by mouth | | | 20 | | | gram oral recon | [...]
--- OUTSIDE RECORDS SUMMARY | ~2020-04-02 | XMS | Encounter Summary ---
Demographics + + + | Address | [address] | | | [place] [address] | + + + | Home Phone [...] Team Providers + +------+ + | Care Bakery Helper Name | Role | Phone | [...]
--- OUTSIDE RECORDS SUMMARY | ~2020-04-02 | XMS | Encounter Summary ---
Demographics + + + | Address | [address] | | | [place] [address] | + + + | Home Phone | | + + + | Preferred Language | Unknown | + + + | Marital Status | Single | + + + | Latter Day Affiliation | CAT | + + + | Race | Unknown | + + + | Ethnic Group | Not or | + + + Author + + + | Author | [facility] | + + + | Organization | [facility] | + + + | Address | Unknown | + + + | Phone | Unavailable | + + + Support + + +---------+ + | Name | Relationship | Address | Phone | + + +---------+ + | Alisia Nina | ECON | Unknown | | + + +---------+ + Care Team Providers + +------+ + | Care Shellfish Processing Machine Tender Name | Role | Phone | + +------+ + | Gracie Lewis PA-C | PCP | | + +------+ + Encounter Details +--------+ + + + + | Date | Type | Department | Care Team | Description | +--------+ + + + + | 12/23/ | Telephone | [facility] | Jeanna Sandhu, | | | 2019 | | Center at [facility] [address] | MD [address] | | | | | [address] [place] | [facility] [place] | | | | | Health and | [address] | | | | | [facility] [address], [address] | [phone] | | | | | [place], [place] | | | | | | [address] | | | | | | [phone] | | | +--------+ + + + [...] this encounter Miscellaneous Notes Telephone Encounter - Akua Ravi - 12/24/2019 3:25 PM PDTPerson calling? (Patient, sp ouse, caregiver, medical office, etc): Lin[place] from [facility] Reason for call: Calling to state they can do a COVID-19 test for the pt prior to her proc on 01/07 but they need an order. Provider / Specialty: francis espinal Call back number confirmed?: yes Best call back number / ext: [phone] / noted under contact or phone tab. Caller would like a call back to discuss. Ok to leave a detailed message?: yes Fax number: [phone] documented in this encoun ter Plan of Treatment Not on filedocumented as of this encounter Visit Diagnoses Not on filedocumented in this encounter"
--- OUTSIDE RECORDS SUMMARY | ~2020-04-02 | XMS | Encounter Summary ---
Demographics + + + | Address | [address] | | | [place] [address] | + + + | Home Phone | | + + + | Preferred Language | Unknown | + + + | Marital Status | Single | + + + | Synagogue Affiliation | CAT | + + + [...] Team Providers + +------+ + | Care Grief Counsellor Name | Role | Phone | + +------+ + | Quentin Manriquez | PCP | | + +------+ + Encounter Details +--------+ + + + + | Date | Type | Department | Care Team | Description | +--------+ + + + + | 08/14/ | Diagnostic | Otolaryngology | Michel Rincon, | | | 2014 | Visit | Audiology Services | CCC-A | | | | | at [facility] [address] | | | [address] | | | | | | Physician's | | | | | | [place], 2nd floor | | | | | | [place], [place] | | | | | | [address] | | | | | | [phone] | | | +--------+ + + + [...] documented as of this encounter Progress Notes Other, Faculty - 10/02/2014 9:35 PM PSTElectronically signed by Faculty Other at 9:35 PM Michel Kong CCC-A - 08/14/2014 12:42 PM PSTName: Demian Nina : 1970 Date of Evaluation: 08/14/2014 Otology Clinic Demian Nina, 44 y.o., was seen for a comprehensive audiological evaluation today as part of Dr. Temple's otology clinic. Please see same day otology note for case history. Audiologic Results: OTOSCOPY (used to evaluate the outer ear): Right ear: Clear external auditory canal with visible tympanic membrane; perforation visual ized Left ear: Clear external auditory canal with visible tympanic membrane TYMPANOMETRY (used to evaluate middle ear function): Right ear: Large ear canal volume consistent with tympanic membrane perforation Left ear: Negative middle ear pressure noted (-198) with normal ear canal volume and comp liance; suggestive of abnormal middle ear function AUDIOMETRY (used to assess condition of hearing): Demian's hearing sensitivity was evaluated using conventional audiomery with insert ear phon es. Demian conditioned easily to the task and her responses were consistent and considered re liable. Pure-tone air and bone conduction results revealed: Right Ear:A moderate to mild conductive hearing loss. A speech carburetor mechanic threshold was o btained at 30 dB HL and is in good agreement with responses to pure-tone stimuli. Word clau gnition ability was 100% when words were presented at a comfortable level of 65 dB HL. Left Ear: Near normal hearing with a conductive loss below 2000 Hz; mild sensorineural he aring loss at 8000 Hz. A speech carburetor mechanic threshold was obtained at 20 dB HL and is in good agreement with responses to pure-tone stimuli. Word recognition ability was 100% when word s were presented at a comfortable level of 60 dB HL. Please see [facility] audiogram for details. Please see otology note for appointment detail including treatment/management and recommend ations. Margret Caballero documented in this e ncounter Plan of Treatment Not on filedocumented as of this encounter Procedures + +--------+ + + + | Procedure Name | Priori | Date/Time | Associated Diagnosis | Comments | | | ty | | | | + +--------+ + + + | UT TYMPANOMETRY | Routin | 08/14/2014 | Conductive hearing | | | | e | 4:03 PM | loss, bilateral | | | | | PST | | | + +--------+ + + + | UT COMPREHENSIVE | Routin | 08/14/2014 | Conductive hearing | | | HEARING TEST | e | 4:03 PM | loss, bilateral | | | | | PST | | | + +--------+ + + + documented in this encounter Visit Diagnoses + + | Diagnosis | + + | Conductive hearing loss, bilateral - Primary | + + documented in this encounter"
--- OUTSIDE RECORDS SUMMARY | ~2020-04-02 | XMS | Encounter Summary ---
Demographics + + + | Address | [address] | | | [place] [address] | + + + | Home Phone [...] Author + + + | Author | [facility] | | | and [place] | + + + | Organization | [facility] | | [...] [place] | | | | | [address] | | + + + + + | Pratibha Hester | ECON | Unknown | + | + + + + + | Demian Powell | ECON | Unknown | + | + + + + + Care Team Providers + +------+ + | Care Line Puller Name | Role | Phone | [...] 2017 | | GASTROENTEROLOGY | [address], [place] | | | | | [address] [place] | [address] | | | | | [address] [place], [place] | [address] | | | | | [address] | | | | | | [phone] | | | +--------+ + + + [...] back, I let her know of Dr. Smith's review, She verbalized understanding. Closing referral. Electronica lly signed by Vandana Borges at 02/24/2018 11:42 AM PDTTelephone Encounter - Sri Borges corie - 02/24/2018 8:22 AM PDTLVM returning patient's call this morning, she was wondering t he status of her referral. Dr. Smith had reviewed it and concurs with the suggestion to [facility] . documented in this enc ounter Plan of Treatment Not on filedocumented as of this encounter Visit Diagnoses Not on filedocumented in this encounter"
--- OUTSIDE RECORDS SUMMARY | ~2020-04-02 | XMS | Encounter Summary ---
Demographics + + + | Address | [address] | | | [place] [address] | + + + | Home Phone [...] + + + | Author | [facility] | | | and [place] | + + + | Organization | [facility] | | | [...] [place] | | | | | [address] | | + + + + + | Pratibha Hester | ECON | Unknown | + | + + + + + | Demian Powell | ECON | Unknown | + | + + + + + Care Team Providers + +------+ + | Care Certified Optician Name | Role | Phone | + +------+ + | Quentin Manriquez PA-C | MARCK | | + +------+ + Reason for Visit +--------+--------+ + | Reason | Onset | Comments | | | Date | | +--------+--------+ + | Other | 12/09/ | Fax | | | 2014 | | +--------+--------+ + Encounter Details +--------+ + + + + | Date | Type | Department | Care Team | Description | +--------+ + + + + | 12/09/ | Telephone | [facility] | Sascha Mir, | Other (Fax) | | 2014 | | NEUROSURGERY [address] | DO [address] | | | | | [address] [facility] [address] | [address] [place], [place] | | | | | [address] | [id number] | | | | | [address] | | | | | | [phone] | | | +--------+ + + + [...] this encounter Miscellaneous Notes Telephone Encounter - Melida Lindquist - 12/09/2014 12:00 PM PDTPatient left message via I and love and you: "please call re: a fax for my surgery." I called her and left a voicemail requ esting a phone call back to get further information. documented in this encounter Plan of Treatment Not on filedocumented as of this encounter Visit Diagnoses Not on filedocumented in this encounter
--- OUTSIDE RECORDS SUMMARY | ~2020-04-02 | XMS | Encounter Summary ---
Demographics + + + | Address | [address] | | | [place] [address] | + + + | Home Phone | | + + + | Preferred Language | Unknown | + + + | Marital Status | Single | + + + | Islam Affiliation | CAT | + + + [...] Team Providers + +------+ + | Care Green Marketing Analyst Name | Role | Phone | + +------+ + | Quentin Manriquez | PCP | | + +------+ + Encounter Details +--------+--------+ + + + | Date | Type | Department | Care Team | Description | +--------+--------+ + + + | 03/06/ | Travel | | | | | [...]
--- OUTSIDE RECORDS SUMMARY | ~2020-04-02 | XMS | Encounter Summary ---
Demographics + + + | Address | [address] | | | [place] [address] | + + + | Home Phone [...] Author + + + | Author | [facility] | + + + | Organization | [facility] | + + + | Address | Unknown | + + + | Phone | Unavailable | + + + Support + + +---------+ + | Name | Relationship | Address | Phone | + + +---------+ + | Alisia Nina | ECON | Unknown | | + + +---------+ + Care Team Providers + +------+ + | Care Medical Instructor Name | Role | Phone | + +------+ + | Quentin Manriquez | PCP | | + +------+ + Encounter Details +--------+ + + + + | Date | Type | Department | Care Team | Description | +--------+ + + + + | 02/16/ | Abstract | [facility]ive [facility] | Clinic, | | | 2017 | | [facility] [address] | Gastroenterology | | | | | [address] [place] | | | | | | for Health and | | | | | | Healing, [address] | | | | | | [place], [place] | | | | | | [address] | | | | | | [phone] | | | +--------+ + + + [...]
--- OUTSIDE RECORDS SUMMARY | ~2020-04-02 | XMS | Encounter Summary ---
Demographics + + + | Address | [address] | | | [place] [address] | + + + | Home Phone | | + + + | Preferred Language | Unknown | + + + | Marital Status | Single | + + + | Judaism Affiliation | CAT | + + + [...] Team Providers + +------+ + | Care Electrical Engineering Technician Name | Role | Phone | [...] | | | | Gastroesopha | AGACNP [address] | | | | | | geal reflux | [address] | | | | | | disease, | [place], | | | | | | esophagitis | [place] | | | | | | presence not | [address] | | | | | | specified | Phone: | | | | | | Severe | [phone] | | | | | | obesity | Fax: | | | | | | ([facility]) Type | [phone] | | | | | | 2 [...] | | | | | | | ([facility]) Hx of | | | | | [...] | Pain | Diagnoses | Berna, | Manager Paid Psych | | | | Management | | Jen Gross, | [facility] [address] | | | | | Gastroesopha | AGACNP [address] | | | | | geal reflux | [address] | [place] for | | | | | disease, | [place], | Health and | | | | | esophagitis | [place] | Healing, | | | | | presence not | [address] | Building | | | | | specified | Phone: | 1,15th Floor | | | | | Severe | | [place], [place] | | | | | obesity | Fax: | [address] | | | | | (HCC) Type | [phone] | Phone: | | | | | 2 diabetes | | [phone] | | | | | mellitus | | Fax: | | | | | without | | [phone] | | | | | complication | [...] Satinder Capellan MD | | | with MARKETING CONSULTANT | | (severe) | PA-C | [address] | | | | | obesity due | [address] | Ave | | | | | to excess | [facility] | [place], [place] | | | | | calories | Health | [address] | | | | | Obesity, | Center [address] | Phone: | | | | | unspecified | | [phone] | | | | | | [address] | Fax: | | | | | | Way [address] | [phone] | | | | | | [address] | | | | | | | [place], | | | | | | | [place] [address] | | | | | | | Phone: | | | | | | | [phone] | | | | | | | Fax: | | | | | | | [phone] | | +--------+ + + + + + Encounter Details +--------+---------+ + + + | Date | Type | Department | Care Team | Description | +--------+---------+ + + + | 06/27/ | Office | Digestive Health | Jen Coronel, | Severe obesity (HCC) | | 2019 | Visit | Center at [facility] [address] | AGACNP [address] | (Primary Dx); | | | | [address] | Ave [place], [place] | Gastroesophageal | | | | for Health and | [address] | reflux disease, | | | | Healing, [address] | [phone] | esophagitis presence | | | | [place], [place] | | not specified; Type | | | | [address] | | 2 diabetes mellitus | | | | | | without | | | | | | complication, with | | | | | | long-term current | | | | | | 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 | | | | | | ([facility]); Hx of | | | | | [...] : -Centrum for Adults -Equate version of Centrum -Marinelli daily multivitamin + Labs needed: CBC, CMP, [...] Pre-op Psychological Evaluation: Your referral is at [facility], the Pain Management Office w ill call you in the next week to schedule. + Hemoglobin A1C will have to be below 8 prior to surgery. + Weight Management classes: 2 classes are required in addition to your private appointme nt with the cutting department supervisor. These classes will be scheduled apporoximately 1 month apart to allow time for you to put the teaching into action. Please call [phone] to schedule these classes after you have [...] and lifestyle. The patient has seen our [facility] cutting department supervisor and physical therapy colleagues to discuss exercise [...] a healthy weight. + Sign up for Canopi so that we can communicate easily back [...] other providers does not guarantee that the [facility] Bariatric Surger y program will deem you a surgical candidate. documented in this encounter Progress Notes Jen Coronel AGACNP - 06/27/2019 12:50 PM PSTFormatting of this note might be differen t from the original. BARIATRIC SURGERY INITIAL VISIT Provider: Jen Coronel, MSN, AG-ACNP Referring Provider: Gracie Lewis MD Reason for Requested Consultation: Initial evaluation for bariatric surgery. Demian Murray lori is interested in gastric banding. 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 female who presents with a [facility] medical history of morbid obesity with a [...] Redux or Phen/fen: no Transthoracic ECHO: na Judaism or cultural reason you would refuse blood [...] day prior to colonoscopy as directed by [facility]. Discard remaining half jug. Indications: Bowel [...] file Gets together: Not on file Attends pentecostalism service: Not on file Active member of [...] inches / 40 cm around (measure at [place])? Yes 8. Gender = Male? No High risk of sleep apnea if "yes' to four or more Cardiovascular: HTN on losartan, HLD--on statin Denies exertional chest pain, palpitations, syncope, orthopnea, or paroxysmal nocturnal dy spnea. Denies history of lower extremity edema, . Denies CHF, TN, ischemic heart disease, DV T/PE, or pulmonary [...] Abd surgeries: 2 c sections, sp desire 2014 Genitourinary: Denies urinary incontinence. Denies history of [...] ordered -ok to do this locally in [place] -Is a stomach sleeper, may not tolerate [...] : -Centrum for Adults -Equate version of Centrum -Marinelli daily multivitamin + Labs needed: CBC, CMP, [...] Pre-op Psychological Evaluation: Your referral is at [facility], the Pain Management Office w ill call you in the next week to schedule. + Hemoglobin A1C will have to be below 8 prior to surgery. + Weight Management classes: 2 classes are required in addition to your private appointme nt with the cutting department supervisor. These classes will be scheduled apporoximately 1 month apart to allow time for you to put the teaching into action. Please call [phone] to schedule these classes after you have [...] and lifestyle. The patient has seen our [facility] cutting department supervisor and physical therapy colleagues to discuss exercise [...] a healthy weight. + Sign up for Canopi so that we can communicate easily back [...] other providers does not guarantee that the [facility] Bariatric Surger y program will deem [...] Coronel, MSN, AG-ACNP Bariatric Surgery Nurse Practitioner [facility] | [address] | [place] | [address] | documented in th is encounter Plan of Treatment + +------+--------+ + + | Name | [...] | | | | 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 ([facility]) | | | | | | Hx [...] | | | | 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 ([facility]) | | | | | | Hx [...] | | | | | Severe obesity ([facility]) | | | | | | Type 2 diabetes | | | | | | mellitus without | | | | | | complication, with | | | | | | long-term current | | | | | | 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 ([facility]) | | | | | | Hx [...] | | | | | Severe obesity ([facility]) | | | | | | Type 2 diabetes | | | | | | mellitus without | | | | | | complication, with | | | | | | long-term current | | | | | | 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 ([facility]) | | | | | | Hx [...] | | | | 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 ([facility]) | | | | | | Hx [...] | | | | 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 ([facility]) | | | | | | Hx [...] | | | | 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 ([facility]) | | | | | | Hx [...] | | | | 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 ([facility]) | | | | | | Hx [...] | | | | | Severe obesity ([facility]) | | | | | | Type [...]
--- OUTSIDE RECORDS SUMMARY | ~2020-04-02 | XMS | Encounter Summary ---
Demographics + + + | Address | [address] | | | [place] [address] | + + + | Home Phone | | + + + | Preferred Language | Unknown | + + + | Marital Status | Single | + + + | Pentecostal Affiliation | CAT | + + + | Race | Unknown | + + + | Ethnic Group | Not or | + + + Author + + + | Author | [facility] | + + + | Organization | [facility] | + + [...] Providers + +------+ + | Care Senior Embedded Software Engineer Name | Role | Phone | + +------+ + | Gracie Lewis PA-C | PCP | | + +------+ + Encounter Details +--------+ + + + + | Date | Type | Department | Care Team | Description | +--------+ + + + + | 01/06/ | Documentati | [facility] | Jeanna Sandhu, | | | 2020 | on | [facility] [address] | MD [address] | | | | | [facility] for | [place], [place] | | | | | Health and Healing, | [address] | | | | | [address] | [phone] | | | | | [place], [place] | | | | | | [address] | | | | | | [phone] | | | +--------+ + + + [...]
--- OUTSIDE RECORDS SUMMARY | ~2020-04-02 | XMS | Encounter Summary ---
Demographics + + + | Address | [address] | | | [place] [address] | + + + | Home Phone [...] | Author | [facility] | | | and [place] | + + + | Organization | [facility] | | [...] [place] | | | | | [address] | | + + + + + | Pratibha Hester | ECON | Unknown | + | + + + + + | Demian Powell | ECON | Unknown | + | + + + + + Care Team Providers + +------+ + | Care Bread Slicer Machine Name | Role | Phone | + +------+ + | Quentin Manriquez PA-C | MARCK | | + +------+ + Reason for Visit +--------+--------+ + | Reason | Onset | Comments | | | Date | | +--------+--------+ + | Other | 01/06/ | | | | 2014 | | +--------+--------+ + Encounter Details +--------+ + + + + | Date | Type | Department | Care Team | Description | +--------+ + + + + | 01/06/ | Telephone | [facility] | Sascha Mir, | Other | | 2014 | | NEUROSURGERY [address] | DO [address] | | | | | [address] | [address] [place], [place] | | | | | [address] | [id number] | | | | | [address] | | | | | | [phone] | | | +--------+ + + + [...] Encounter - Elina Fairbanks Cert MA - 01/06/2015 8:38 AM KARENLavon called three ti mes over the weekend and left messages with the answering service. One message stated "plea se cancel all 3 of my Rx's being mailed." The second one stated "please only cancel two of my Rx's being mailed." and the third message stated "please dont cancel any of my Rx's." I called and spoke with Demian. She states she was sent home from [place] and was discharg ed with two of her medications, the Diazepam and pain medication and will only need the Flex eril that was being mailed. I let her know that all three Rx's are already in the mail head ed to her. She states she will bring the two other Rx's in with her at her next appointment . ELINA FAIRBANKS documented in this encounter Plan of Treatment Not on filedocumented as of this encounter Visit Diagnoses Not on filedocumented in this encounter
--- OUTSIDE RECORDS SUMMARY | ~2020-04-02 | XMS | Encounter Summary ---
Demographics + + + | Address | [address] | | | [place] [address] | + + + | Home Phone [...] | Author | [facility] | | | and [place] | + + + | Organization | [facility] | | | and [...] [place] | | | | | [address] | | + + + + + | Pratibha Hester | ECON | Unknown | + | + + + + + | Demian Powell | ECON | Unknown | + | + + + + + Care Team Providers + +------+ + | Care Research Physicist Name | Role | Phone | + +------+ + | Derick Mclaughlin PA-C | PCP | | + +------+ + Reason for Visit +--------+--------+ + | Reason | Onset | Comments | | | Date | | +--------+--------+ + | Other | 10/03/ | Referral to office-Auth # | | | 2012 | | +--------+--------+ + Encounter Details +--------+ + + + + | Date | Type | Department | Care Team | Description | +--------+ + + + + | 10/03/ | Telephone | [facility] | Denilson Jorge | Other (Referral to | | 2012 | | [address] | MD [address] | office-Auth #) | | | | [address] | [address] | | | | | [place] | [address] | | | | | [address] | [phone] | | | | [phone] | | | +--------+ + + + [...] Notes Telephone Encounter - Natalie Noonan - 10/03/2012 11:22 AM PSTEJENNYO approved [address] Jorge #[id number] signed by Natalie Noonan at 10/03/2012 11:22 AM [address]documented in this encounter Plan of Treatment Not on filedocumented as of this encounter Visit Diagnoses Not on filedocumented in this encounter"
--- OUTSIDE RECORDS SUMMARY | ~2020-04-02 | XMS | Encounter Summary ---
Demographics + + + | Address | [address] | | | [place] [address] | + + + | Home Phone [...] [place] | | | | | [address] | | + + + + + | Pratibha Hester | ECON | Unknown | + | + + + + + | Demian Powell | ECON | Unknown | + | + + + + + Care Team Providers + +------+ + | Care Blade Bender Furnace Tender Name | Role | Phone | [...] + + | 12/19/ | Telephone | [facility] | Sascha Mir, | Other | | 2014 | | NEUROSURGERY [address] | DO [address] | | | | | [address] | [address] [place], [place] | | | | | [address] | [id number] | | | | | [address] | | | | | | [phone] | | | +--------+ + + + [...] spoke with Leticia, the charge nurse at [facility] in [employer]. She state s that she is familiar [...]
--- OUTSIDE RECORDS SUMMARY | ~2020-04-02 | XMS | Encounter Summary ---
Demographics + + + | Address | [address] | | | [place] [address] | + + + | Home Phone [...] Author + + + | Author | [facility] | + + + | Organization | [facility] | + + + | Address | Unknown | + + + | Phone | Unavailable | + + + Support + + +---------+ + | Name | Relationship | Address | Phone | + + +---------+ + | Alisia Nina | ECON | Unknown | | + + +---------+ + Care Team Providers + +------+ + | Care Accident Examiner Name | Role | Phone | [...] | 2019 | on | Center at [facility] [address] | | | | | | [address] [facility] | | | | | | for Health and | | | | | | Healing, [address] | | | | | | [place], [place] | | | | | | [address] | | | | | | [phone] | | | +--------+ + + + [...]
--- OUTSIDE RECORDS SUMMARY | ~2020-04-02 | XMS | Encounter Summary ---
Demographics + + + | Address | [address] | | | [place] [address] | + + + | Home Phone | | + + + | Preferred Language | Unknown | + + + | Marital Status | Single | + + + | Episcopal Affiliation | CAT | + + + [...] Team Providers + +------+ + | Care Brake Liner Name | Role | Phone | + +------+ + | Gracie Lewis PA-C | PCP | | + +------+ + Encounter Details +--------+ + + + + | Date | Type | Department | Care Team | Description | +--------+ + + + + | 01/06/ | Inspector Process | [facility] | Jeanna Sandhu, | | | 2019 | | [facility] [address] | MD [address] | | | | | [facility] for | [place], [place] | | | | | Health and Healing, | [address] | | | | | [address] | [phone] | | | | | [place], [place] | | | | | | [address] | | | | | | [phone] | | | +--------+ + + + [...]
--- OUTSIDE RECORDS SUMMARY | ~2020-04-02 | XMS | Encounter Summary ---
Demographics + + + | Address | [address] | | | [place] [address] | + + + | Home Phone [...] [place] | | | | | [address] | | + + + + + | Pratibha Hester | ECON | Unknown | + | + + + + + | Demian Powell | ECON | Unknown | + | + + + + + Care Team Providers + +------+ + | Care Book Shelver Name | Role | Phone | + [...] + | 01/01/ | Telephone | [facility] | Sascha Mir, | Other (Medication | | 2014 | | NE[address]OSURGERY [address] | DO [address] | refill) | | | | [address] | [address] [place], [place] | | | | | [place], [place] | [address] | | | | | [address] | | | | | | [phone] | | | +--------+ + + + [...] Mir approved on 01/02/15 Certified rohan jose #[id number] to patient at address she requested ([address] [place] [address] [place], [place] [id number] signed by Master Lundberg of [employer] at [...] preferred pharmacy? [facility] the [facility] [address] ele phone Encounter - Lenka Mann Master [...]
--- OUTSIDE RECORDS SUMMARY | ~2020-04-02 | XMS | Encounter Summary ---
Demographics + + + | Address | [address] | | | [place] [address] | + + + | Home Phone [...] Providers + +------+ + | Care Rn Security Name | Role | Phone | + [...] + + + | | | | Procedures | | | | | | | [place] | | | | | | | COLONOSCOPY, | | | | | | | FLEX, | | | | | | | W/BIOPSY [place] | | | | | | | UPPER GI | | | | | | | ENDOSCOPY,BI | | | | | | | OPSY [place] | | | | | | | ANES UPR LWR | | | | | | | GI NDSC PX | | | +--------+--------+ + + + + Encounter Details +--------+ + + + + | Date | Type | Department | Care Team | Description | +--------+ + + + + | 01/08/ | Anesthesia | [facility] | Amy King MD | | | 2019 | Event | [facility] [address] | [address] | | | | | [facility] | [address] [place], | | | | | [facility] and He[facility], | [place] [address] | | | | | [address] | [phone] | | | | | [place], [place] | | | | | | [address] | Davis Whiting | | | | | [phone] | [address], [address] | | | | | | [address] | | | | | | [place], [place] | | | | | | [address] | | | | | | [phone] | | | | | | | | +--------+ + + + + Anesthesia Record + + + + + | Procedure Name | Responsible | Anesthesia Start | Anesthesia Stop Time | | | Anesthesiologist | Time | | + + + + + | EGD | Amy King MD | 01/09/20 0749 | 01/09/20 0856 | + + + [...] | 0 | an yadira now | Oscarkellianamaria Wastin mcg Fentanyl | | | 8 | | | | | 5 | | | | | 6 | | | +----+---+ + + +------+ | Meds | +------+ + + + | Name | Total | + + + | propofol | 80 mg | + + + | propofoL (DIPRIVAN) 200 mg | 736,524 mcg | + + + | LR bolus | 250 mL | + + + + + | Name | + + | O2 FR Avance (Total Liters) | + + | Insp Sevo | + + | Et Sevo | + + + + | No blood administrations on file. | + + +--------+ + + + | Type | Details | Placement | Removal | +--------+ + + + | Periph | 01/09/20; 42; Right; Hand; 22 | 01/09/20 0742 by | 01/09/20958 by | | eral | g; Positive; 01/09/20; 958; | Jonelle Jade RN | [place] [...] + + documented as of this encounter OR Notes Anesthesia Postprocedure Evaluation - Amy King MD - 01/09/2020 10:02 AM PDT [place] [id number] Vitals Value Taken Time BP 118/75 01/09/2020 9:45 AM Temp 36.5 C (97.7 F) 01/09/2020 8:51 AM Pulse 83 01/09/2020 8:51 AM Resp 16 01/09/2020 9:45 AM SpO2 98 % 01/09/2020 9:45 AM EVALUATION VS (BP, HR, RR, SpO2, and Temp) and hydration status are stable ROS including Cards, Resp, Neuro, and GI without evidence of adverse effects No PONV Pain controlled No altered mental status COMPLICATIONS No adverse events nesthesia Preprocedure Evaluation - Davis Whiting CRNA - 01/09/2020 7:11 AM PDTFormatting of this note mi ght be different from the original. Demian Montoyarera [id number] Allergies Allergen Reactions Procainamide Hcl Anaphylaxis Allergic to anesthetics Dilaudid [Hydromorphone (Bulk)] Pruritus Morphine Pruritus NPO: Last Vitals Preg Status/LMP Patient Active Problem List Diagnosis ETD (eustachian tube dysfunction) OME (otitis media with effusion) Conductive hearing loss in right ear Dizziness Nausea GERD (gastroesophageal reflux disease) Diabetes mellitus (HCC) Hx of degenerative disc disease Anxiety Severe obesity (HCC) Pars defect of lumbar spine Asthma Chronic low back pain Essential hypertension Facet arthropathy, lumbosacral Foraminal stenosis of lumbosacral region Left hip pain Lumbar radiculopathy S/P lumbar fusion Sacroiliitis (HCC) Synovial cyst of lumbar facet joint Past Surgical History Procedure Laterality Date Rotator cuff surgery Cholecystectomy C section x2 Lumbar fusion Current Medication List Name Sig Last Dose ATORVASTATIN 20 MG TABLET CELECOXIB 200 MG CAPSULE 200 mg. CEPHALEXIN 500 MG CAPSULE 500 mg. CHOLECALCIFEROL (VITAMIN D3) 25 MCG (1,000 UNIT) TABLET Take by mouth. CLOTRIMAZOLE 1 % VAGINAL CREAM COMBIVENT RESPIMAT 100 MCG-20 MCG/ACTUATION AEROSOL INHALER inhale 1 puff by mouth every 6 hours if needed FLUTICASONE 250 MCG-SALMETEROL 50 MCG/DOSE BLISTR POWDR FOR INHALATION Inhale 1 puff. INSULIN GLARGINE (U-100) 100 UNIT/ML SUBCUTANEOUS SOLUTION by Intramuscular/Subcutaneous ro jessie. LISINOPRIL 10 MG TABLET Take 10 mg by mouth once daily. Within last 30 days LORATADINE 10 MG CAPSULE Take by mouth. Within last 30 days LOSARTAN 25 MG TABLET MECLIZINE 25 MG TABLET Take 25 mg by mouth. METFORMIN ER 500 MG TABLET,EXTENDED RELEASE 24 HR 500 mg. METHOCARBAMOL 500 MG TABLET MOMETASONE 220 MCG/ACTUATION(30 DOSES) BREATH ACTIVATED POWDER INHALER Inhale 1 puff once d aily. 06/26/2019 MONTELUKAST 10 MG TABLET Take 10 mg by mouth once daily in the evening. Within last 30 days NAPROXEN 250 MG TABLET Take 250 mg by mouth. OMEPRAZOLE 20 MG CAPSULE,DELAYED RELEASE Take 1 capsule by mouth once daily. Administer 30 to 60 minutes before meals ONDANSETRON HCL 4 MG TABLET 4 mg as needed. PEG 3350-ELECTROLYTES 236 GRAM-22.74 GRAM-6.74 GRAM-5.86 GRAM SOLUTION Take 6000ml total (1 .5 jugs) by mouth starting on the day prior to colonoscopy as directed by [facility]. Discard rem aining half jug. Indications: Bowel Evacuation TERBINAFINE HCL 250 MG TABLET Take 250 mg by mouth once daily. VICTOZA 2-LAUREANO 0.6 MG/0.1 ML (18 MG/3 ML) SUBCUTANEOUS PEN INJECTOR WIXELA INHUB 250 MCG-50 MCG/DOSE POWDER FOR INHALATION inhale 1 puff by mouth twice a day No results found for: RATE, ATRIALRATE, MN, QRS, QT, QTC, PAXIS, RAXIS, TAXIS, EKGDX ANESTHESIA PLAN ASA 3 NPO Status: NPO by protocol ANESTHETIC TECHNIQUE Technique Used: Monitored Anesthesia Care MONITORS/LINES TO BE USED Standard POSTOP PAIN Oral analgesics IV analgesics BLOOD PRODUCTS None ordered INFORMED CONSENT PARQ and risks/benefits of anesthetic plan discussed with Patient Dental Risk discussed with patient PATIENT'S CODE STATUS IN OR FULL - full code documented in this enco unter Miscellaneous Notes [facility] PreOp Note - Davis Whiting CRNA - 01/09/2020 7:07 AM PDTROS: HPI: 50 yo female presents for diagnostic upper and lower endoscopy. Hx: HTN Asthma Chronic pain Morbid obesity GERD DM 2 Degenerative disc dz N&V Prior Anesthetic Problems: No Pulmonary: Home inhaler used in preop per request Pt. Has asthma Risk factors for sleep apnea: Pt. b eing treated for high blood pressure Neck circumference> 40 cm and BMI>35 pt. at high risk o f LAURA Cardiovascular: Functional Capacity: Moderate hypertension no CAD Sx no pacemaker/ICD GI/Hepatic: GERD Control: well controlled liver disease Renal: Within Defined Limits except as noted below Urology/Foundation Drill Operator: Within Defined Limits except as noted below Endo: Diabetes: type 2 poorly controlled Neuro/Psych: Psych Disorder anxiety pain Current pain score: 5 Chronic Pain Current treatments: Physica l therapy Musculoskeletal: arthritis Manifestations: Lumbar-Thoracic spine Additional Comments: Heme/Onc: Within Defined Limits except as noted below Infectious Disease: Within Defined Limits except as noted below Skin: integumentary system within defined limits AutoImmune Disorders: autoimmune disorders within defined limits Physical Exam General: Appearance: Healthy Airway: Dentition: dentition is normal Dentition Comments: reports none loose and intact Mallampati : 3 Mouth Opening: > 3 cm TM Distance:> 6 cm C-Spine ROM: Limited extension Neck Anatomy: Thick, obese Pulmonary: Respiratory: pulmonary exam normal Respiratory comments: uses inhaler 2x/day Breath Sounds: decreased breath sounds Cardiovascular: Rhythm: Regular Rate: Normal Additional Comments: Pt reports no sexual activity and declines test. [facility] PreOp Note - Louise Alvarez RN - 01/01/2020 2:08 PM PDTROS documented in this enco unter Plan of Treatment Not on filedocumented as of this encounter Visit Diagnoses Not on filedocumented in this encounter Administered Medications + +---------+ +------+------+------+ | Medication Order | MAR | Action | Dose | Rate | Site | | | Action | Date | | | | + +---------+ +------+------+------+ | lactated ringers (LR) bolus | New Bag | 01/09/20 | | | | | INTRAPROCEDURE CONTINUOUS PRN, | | 20 7:48 | | | | | Starting 01/09/20 at 0748, | | AM PDT | | | | | Until Tue01/09/20 at 0856 | | | | | | + +---------+ +------+------+------+ +---+---+ | | | +---+---+ + + + + +---+---+ | propofoL (DIPRIVAN) 200 mg | Rate/Dos | 01/09/20 | 160 | | | | intravenous, INTRAPROCEDURE | e Change | 20 8:02 | mcg/kg/m | | | | CONTINUOUS PRN, Starting Wed | | AM PDT | in | | | | 01/09/20 at 0755, Until Tue01/09/20 | | | | | | | at 0856 | | | | | | + + + + +---+---+ +---------+ + +---+---+ | New Bag | 01/09/20 | 140 | | | | | 20 7:55 | mcg/kg/m | | | | | AM PDT | in | | | +---------+ + +---+---+ +---+---+ | | | +---+---+ + +-------+ +-------+---+---+ | propofoL (DIPRIVAN) injection | Given | 01/09/20 | 20 mg | | | | intravenous, INTRAPROCEDURE PRN, | | 20 8:29 | | | | | Starting Tue01/09/20 at 0755, | | AM PDT | | | | | Until Tue01/09/20 at 0856 | | | | | | + +-------+ +-------+---+---+ +-------+ +-------+---+---+ | Given | 01/09/20 | 20 mg | | | | | 20 8:01 | | | | | | AM PDT | | | | +-------+ +-------+---+---+ | Given | 01/09/20 | 20 mg | | | | | 20 7:58 | | | | | | AM PDT | | | | +-------+ +-------+---+---+ +---+---+ | | | +---+---+ documented in this encounter"
--- OUTSIDE RECORDS SUMMARY | ~2020-04-02 | XMS | Encounter Summary ---
Demographics + + + | Address | [address] | | | [place] [address] | + + + | Home Phone | | + + + | Preferred Language | Unknown | + + + | Marital Status | Single | + + + | Uatsdin Affiliation | CAT | + + + [...] Team Providers + +------+ + | Care Branch Coordinator Name | Role | Phone | + +------+ + | Gracie Lewis PA-C | PCP | | + +------+ + Encounter Details +--------+--------+ + + + | Date | Type | Department | Care Team | Description | +--------+--------+ + + + | 06/03/ | Travel | | | | | 2020 | | | | | +--------+--------+ + [...]
--- OUTSIDE RECORDS SUMMARY | ~2020-04-02 | XMS | Encounter Summary ---
Demographics + + + | Address | [address] | | | [place] [address] | + + + | Home Phone [...] Team Providers + +------+ + | Care Petrophysical Engineer Name | Role | Phone | + +------+ + | Quentin Manriquez | PCP | | + +------+ + Encounter Details +--------+ + + + + | Date | Type | Department | Care Team | Description | +--------+ + + + + | 02/16/ | Abstract | [facility] | Clinic, | | | 2017 | | [facility] [address] | Gastroenterology | | | | | [address] [facility] | | | | | | for [facility] and | | | | | | Healing, [address] | | | | | | [place], [place] | | | | | | [address] | | | | | | [phone] | | | +--------+ + + + [...]
--- OUTSIDE RECORDS SUMMARY | ~2020-04-02 | XMS | Encounter Summary ---
Demographics + + + | Address | [address] | | | [place] [address] | + + + | Home Phone | | + + + | Preferred Language | Unknown | + + + | Marital Status | Single | + + + | Confucianism Affiliation | [id number] | + + + | Race | White | + + + | Ethnic Group | Not or | + + + Author + + + | Author | [facility] | | | and [place] | + + + | Organization | [facility] | | [...] [place] | | | | | [address] | | + + + + + | Pratibha Hester | ECON | Unknown | + | + + + + + | Demian Powell | ECON | Unknown | + | + + + + + Care Team Providers + +------+ + | Care Animal Geneticist Name | Role | Phone | + [...] + + | 05/05/ | Telephone | [facility] | Sascha Mir, | Other | | 2014 | | NEUROSUR[address] | DO [address] | | | | | [address] | [address] [place], [place] | | | | | [place] | [id number] | | | | | [address] | | | | | | [phone] | | | +--------+ + + + [...] a call back on his cell phone: [phone] Thank you, ELINA FAIRBANKS documented in this encounter Plan of Treatment Not on filedocumented as of this encounter Visit Diagnoses Not on filedocumented in this encounter"
--- OUTSIDE RECORDS SUMMARY | ~2020-04-02 | XMS | Encounter Summary ---
Demographics + + + | Address | [address] | | | [place] [address] | + + + | Home Phone | | + + + | Preferred Language | Unknown | + + + | Marital Status | Single | + + + | Mu-Ism Affiliation | CAT | + + + [...] Team Providers + +------+ + | Care Switchboard Mechanic Name | Role | Phone | + [...] on | Otology Services at | [facility] | | | | | [facility] [address] [place], [place] | | | | | [address] | [address] | | | | | Physician's | | | | | | Pavilion, 2nd floor | | | | | | [place], [place] | | | | | | [address] | | | | | | [phone] | | | +--------+ + + + [...]
--- OUTSIDE RECORDS SUMMARY | ~2020-04-02 | XMS | Encounter Summary ---
Demographics + + + | Address | [address] | | | [place] [address] | + + + | Home Phone | | + + + | Preferred Language | Unknown | + + + | Marital Status | Single | + + + | Restorationist Affiliation | [id number] | + + + | Race | White | + + + | Ethnic Group | Not or | + + + Author + + + | Author | [facility] | | | and [place] | + + + | Organization | [facility] | [...] [place] | | | | | [address] | | + + + + + | Pratibha Hester | ECON | Unknown | + | + + + + + | Demian Powell | ECON | Unknown | + | + + + + + Care Team Providers + +------+ + | Care Elevator Constructor Hydraulic Name | Role | Phone | + [...] | | | spondylolist | | [address] | | | | | hesis | | Rajiv Vance, | | | | | Acquired | | [place] [address] | | | | | spondylolist | | Phone: | | | | | hesis | | [phone] | | | | | Procedures | | Fax: | | | | | [place] [facility] | | [phone] | | | | | POST/POSTERO | [...] Description | +--------+---------+ + + + | 12/12/ | Surgery | [facility] | Sascha Mir, | L5-S1 Transforaminal | | 2015 | | MED CTR OR INTRA OP | DO [address] | Lumbar Interbody | | | | [address] | [address] | Fusion | | | | [place], [place] | [id number] | | | | | [address] | | | | | | [phone] | | | +--------+---------+ + + + [...] + + + | Blood Pressure | 124/69 | 12/12/2014 8:22 AM | | | | | PDT | | + + + + + | Pulse | 73 | 12/12/2014 8:22 AM | | | | | PDT | | + + + + + | Temperature | 36.6 C (97.9 F) | 12/12/2014 8:22 AM | | | | | PDT | | + + + + + | Respiratory Rate | 18 | 12/12/2014 8:22 AM | | | | | PDT | | + + + + + | Oxygen Saturation | 94% | 12/12/2014 8:22 AM | | | [...] of admission the patient was admitted to [facility] and underwent a L5-S1 fusion . Patient was transferred to PACU and then to the neurosurgical floor. In brief, hospital stay was uncomplicated, the patient mobilized [...] mobility and she was ultimately discharged to [facility]. Medications Reconciled upon Discharge are: Discharge Medications [...] Discharge: Stable Disposition: Patient was discharged to [place]. Follow-Up Plans: Follow-up with: Dr. Mir's office in 4 weeks Follow-up with primary care physician as needed. Diet: Resume regular diet Activity: Continue to follow guidelines and precautions as previously discussed. Electronically signed by: Amol Triplett, 12/16/2014 7:45 [facility] documented in this encounter Discharge Instructions [...] might be different f rom the original. [facility] NEUROSURGERY PROGRESS NOTE Pt. Name/Age/: Demian [...] surgery. She is reay to go t o [facility] in [place]. No further C/C OBJECTIVE: Patient Vitals for [...] the past 24 hour(s)). ASSESSMENT:SP L5-S1 fuison Plan:B Brace. DC to [facility] today. See DC summary. Electronically signed by: Amol Triplett, 12/16/2014 7:36 [facility] Sascha Beck DO - 12/15/2014 9:20 AM PDT Subjective The patient was seen and examined by me today. She complains of of left tingling - improved from numbness, and left leg dysesthesia. Her l egs feel strong. Moderate surgical pain, but tolerable. She would like to go to SNF in [facility] et before discharge home. Objective Filed Vitals: 12/15/14 [...] -DC plan: ready for SNF any time. Eolisa Reed RN - 12/14/2014 9:48 AM PDTJP [...] would like to go to SNF in [facility] et before discharge home. Objective Filed Vitals: 12/14/14 [...] Range POC Test, Urine Negative POC Specific [place] Internal QC Acceptable Lot Number [id number] Expiration Date POC GLUCOSE Result Value Ref [...] 1-2 days. documented in this en counter H&P Notes Sascha Mir DO - 12/12/2014 9:09 AM [facility] INTERIM HISTORY AND PHYSICAL UPDATE Pt. Name/Age/: Demian Nina 44 y.o. 1970 Date of admission: 12/12/2014 The current H&P was reviewed. The patient was reexamined. Re-evaluation of the patient co nfirms the necessity for the scheduled procedure. No change has occurred in the patient s condition since the H&P was completed less than 30 days ago. Electronically signed by: Sascha Mir, 12/12/2014 9:09 [facility] reySascha maxwell DO - 12/12/2014 9:09 AM PDT [address], [address] [place] [address] FAX: NEUROSURGERY HISTORY AND PHYSICAL EXAMINATION CHIEF COMPLAINT: Chief Complaint Patient presents with Other Pre op HISTORY OF PRESENT ILLNESS: Demian presents to clinic today for a preoperative examination. She is scheduled for a L5-S1 TLIF. The patient is a 44 y.o. female with the complaint of ba ck pain that began 10 years ago. The symptoms began insidiously, but is worse over the last two years. Since that time the patient feel her pain has been worsening. She rates the pain as severe. She describes the pain as a aching feeling. The patient also describes leg symptoms that occur on both sides, left worse than right. Th e leg symptoms account for greater than or equal to 75% of her symptoms. The leg symptoms ar e persistent and the symptoms travels from the buttock down the back of her legs to the narendra om of her feet. The patient also describes difficulty walking more than a few blocks. The pa tient does not report any change in bowel or bladder function recently. She has had no interval changes in the severity or character of her symptoms since her last visit. She denies any shortness of breath or chest pain. She denies any fever or chills.She has no open sores on her body and has not had any antibiotics recently. The PCP has seen he r and they have cleared her for surgery. Her symptoms improve with laying flat and [...] Prior to Visit Medication Sig Dispense Refill ALBUTEROL SULFATE IN NEBU; 1-2 puffs every 3-4 hours as needed ASCORBIC ACID PO Take 1 tablet by mouth Daily. aspirin 81 mg EC tablet Take 81 mg by mouth Daily. Cholecalciferol (VITAMIN D PO) Take 1 tablet by mouth Daily. HYDROcodone-acetaminophen (NORCO) 10-325 mg per tablet Take 1 tablet by mouth every 6 hours as needed for Pain. ibuprofen (ADVIL,MOTRIN) 600 MG tablet Take 600 mg by mouth every 8 hours as needed f or Pain. lisinopril (PRINIVIL, ZESTRIL) 10 mg tablet Take 10 mg by mouth Daily. Loratadine (CLARITIN) 10 MG CAPS Take by mouth Daily. montelukast (SINGULAIR) 10 mg tablet Take 10 mg by mouth nightly. ondansetron (ZOFRAN ODT) 4 mg disintegrating tablet Take 4 mg by mouth every 8 hours as needed for Nausea. No current facility-administered medications on file prior to visit. ALLERGIES: Allergies Allergen Reactions Procainamide Hcl Anaphylaxis Allergic to anesthetics Anesthetics, [...] no rheumatoid arthritis. PHYSICAL EXAMINATION: Blood pressure 100/64, pulse 102, resp. rate 16, height 1.676 m (5' 6"), weight 116.121 kg (256 lb), last menstrual period 11/25/2014, not currently . Body mass index is 41.34 kg/(m^2). GENERAL: Demian Nina is in no acute distress with unlabored respirations. The sheron ent does not appear uncomfortable throughout the exam [...] midline of the L5 levels. To palpation, t here is signficant bilateral myofascial tenderness. EXTREMITIES: No cyanosis, clubbing, or edema. Distal pulses are palpable. NEUROLOGICAL EXAM: MENTAL STATUS: The patient is awake, alert, and oriented. She follows simple and complex commands. She speech is fluent, her comprehends speech well, and her repeats well. She has no apparent deficits with short or assisted memory. CRANIAL NERVES: II: Acuity is intact. Stahl are full to confrontation. III, IV, : The pupils are reactive. Extraocular movements are intact. No ptosis is noted . V: Facial sensation is intact and symmetric. VII: Facial movements are symmetric. VIII: Hearing is intact bilaterally. IX, X: The uvula and palate move appropriately. XI: Shrug is equal bilaterally. XII: Tongue protrusion is midline. MOTOR EXAM: (5 IS NORMAL) * Indicates pain limited MUSCLE/ MOVEMENT: RIGHT LEFT Hip Flexion 5 5 Hip Extension 5 5 Knee Flexion 5 5 Knee Extension 5 5 Dorsiflexion 5 5 Extensor Hallicus Longus 5 5 Plantarflexion 5 5 SENSORY EXAM: Sensory exam shows bilateral S1-type dysesthesia. REFLEXES: (2 OR 2+ IS NORMAL) REFLEX: RIGHT LEFT PATELLAR 2 2 ACHILLES 1 1 HERNANDEZ'S ABSENT ABSENT PLANTAR DOWNGOING DOWNGOING GAIT: Gait is steady. PERIPHERAL NERVE/MISC: Straight leg raise is negative bilaterally. Gavin's test of the hips is negative bilaterally. RADIOGRAPHIC REVIEW: The patient's imaging was reviewed in detail with the patient today during the visit. The M RI of the lumbar spine from 06/25/14 demonstrates spondylosis L5-S1. There is spondylolisthe sis with bilateral pars defects and resulting lateral recess and foraminal stenosis at L5-S1 . The dynamic x-rays from 09/26/14 demonstrates severe dynamic instability with and increase o f 18 mm in spondylolisthesis at L5-S1. ASSESSMENT: NEUROSURGICAL DIAGNOSES: Encounter Diagnoses Name Primary? Degenerative disc disease, lumbar L4-5 Yes Facet arthropathy, lumbosacral Foraminal stenosis of lumbosacral region Spondylolisthesis of lumbar region L5-S1 Radiculopathy of lumbar region L5-S1 Pars defect of lumbar spine L5-S1 GENERAL DIAGNOSES: Past Medical History Diagnosis Date [...] anesthesia. PONV (postoperative nausea and vomiting) PLAN: It was a pleasure meeting and evaluating this patient today, and I greatly appreciate the r eferral. The patient has unstable spondylolisthesis L5-S1 with severe stenosis. This is like ly contributing to her back pain, leg pain, and claudication. I had a lengthy discussion with the patient about her options for care including surgical a nd non-surgical options. She has tried years of conservative therapy and would like to proce ed with TLIF L5-S1. We discussed the risks, alternatives, and benefits to surgical intervention with . Nicole montejo in clinic. These risks included but were not limited to , stroke, heart attack, numbn ess, weakness, paralysis, failure of fusion, failure of hardware, subsidence, adjacent segme nt degeneration, cerebrospinal fluid leak, bleeding, infection, injury to surrounding tissue s and organs, injury from positioning, injury to the nerves, difficulty with breathing, diff iculty with swallowing, difficulty with voice change, and [...] that although some patients may obtain 100% symp akua relief, it is realistic to anticipate that some symptoms will continue postoperatively d espite a successful surgery. We also discussed that there is no guarantee that surgery will provide improvement in her c ondition, and indeed may even worsen the symptoms. We also discussed that in the course of t he procedure the operative plan may be altered to include more, less, or different levels de pending upon findings in order to provide her [...] improve the probability and rate of fusion. documented in this en counter Miscellaneous Notes Plan of Care - Yue Wing - 12/16/2014 9:22 AM PDTTalked with Rene @ [place], she will run the Insurance and call back. I informed her that we do have discharge orders. Electronically signed by: Yue Wing 12/16/2014 9:23 Rene called back, they can accept Demian today. Faxed orders, PASRR, discharge summary and RX to [place]. Received the "Communication result report" (result OK) Packet is ready. Demian will call her mom for a ride. Received a call from [email or web address], requesting the [facility] orders to be faxed to [phone]. Faxed. Received "communication result report" (result ok) NF Transfer - Dash Triplett PA - 12/16/2014 7:43 AM PDTFormatting of this note might be different from the orig inal. [facility] FACILITY TRANSFER ORDERS Patient Name: Demian Nina Patient : 1970 Gender: female Date of Admission: 12/12/2014 Date of Discharge: 12/16/2014 Admitting Provider: Sascha Mir DO Discharging Provider: ANNETTE Gutierrez Consultants: none PCP: Quentin Manriquez [facility] transferring to: Анна Provider after transfer: PCP and Анна ANAND CODE STATUS: [x] Attempt CPR [] Do not resuscitate If patient is pulseless and not breathing, RN/NUT BLANKER OPERATOR may pronounce . Advanced Directives included: [] POLST [] MOLST/MOST [] [employer] [place] ([place]) [] Other: Code status discussed with: [] Patient [] Spouse/Family [] DPOA [] Other: Name of person discussed with: Date discussed: Isolation/Infection Precautions: [] None Height: Height: 167.6 cm (5' 5.98") Wt Readings from Last 3 Encounters: 12/12/14 115.667 kg (255 lb) 12/12/14 115.667 kg (255 lb) 12/05/14 116.121 kg (256 lb) Admitting Diagnosis: Acquired spondylolisthesis Patient Active Problem List Diagnosis Spondylolisthesis of lumbar region L5-S1 Pars defect of lumbar spine L5-S1 Degenerative disc disease, lumbar L4-5 Radiculopathy of lumbar region L5-S1 Morbid obesity Sacroiliitis Trochanteric bursitis Diabetes mellitus Asthma HIP PAIN, LEFT, CHRONIC Synovial cyst of lumbar facet joint Foraminal stenosis of lumbosacral region Facet arthropathy, lumbosacral Acquired spondylolisthesis Allergies Allergen Reactions Ethyl Chloride Anaphylaxis Had ingrown toenail removed last year. Several hours after procedure, patient developed a naphylaxis. Believed to be from ethyl chloride spray, per patient. Procainamide Hcl Anaphylaxis Allergic to anesthetics Anesthetics, Ludmila Itching Allergic to anesthetics - reports throat swelling, itching Latex Itching Morphine Itching and Rash Hydromorphone Itching Most Recent Immunizations Administered Date(s) Administered HEP A, 2 DOSE (PED/ADOL) 11/29/2012 HEP A, 3 DOSE (PED/ADOL) 06/14/2013 HEP A/HEP B, 3 DOSE (ADULT) 10/13/2012 HEP B (adolescent or ped) 3 dose 06/14/2013 HEP B, 2 DOSE (ADOL) 11/29/2012 HEP B, 3 DOSE (ADULT) 05/18/2013 HPV, QUADRIVALENT, 3 DOSE (ADOL/ADULT) 05/18/2013 INFLUENZA, [id number], ALL FORMULATIONS 08/05/2009 INFLUENZA, HIGH DOSE SEASONAL (ADULT) 05/07/2014 PNEUMOCOCCAL, UNSPECIFIED FORMULATION 07/07/2010 Diet: [x] As tolerated TESTING COORDINATOR may upgrade or downgrade diet as condition Indicates. [x] RN may downgrade diet as indicated. Type: [] Continue current diet of: Diet and Supplements Diet DIET GENERAL Number of Occurrences: Until Specified [] Other: Consistency/Precautions: [] Whole [] Thin Liquids [] Cut-up [] [place] Thick [] Advanced Chopped [] Honey Thickened [] Chopped [] Advanced Ground [] 1:1 feedings [] Ground/Pureed [] Other: Tube Feedings: [] PEG [] GT [] JT [] NGT [] Formula type: (Cell Coverer may change/substitute if indicated). [] Continuous Rate: ml/hr, infusing hrs/day [] Bolus feeds: ml every hours [] Additional water: ml every hours Respiratory: [] BiPAP at night & PRN SOB. Settings: O2 L bleed Dx: [] CPAP at night & PRN SOB. Settings: O2 L bleed Dx: [] Suction & Pulmonary toilet PRN secretion/sputum management. Dx: [] Incentive Spirometer QID and PRN while awake. Duration: Dx: [] Tracheostomy management per protocol [] Oxygen: Lpm NC/Trach [] Continuous [] NOC [] Humidified [] prn SaO2 < % [] prn SOB/dyspnea Dx: [] Other: Dx: Bladder: [] Follow nursing protocol for recent burgos removal [] Burgos catheter managment per nursing protocol - Indication: [] Permanent [] Temporary [] Remove burgos catheter on and follow nursing protocol for recent burgos remova l. [] Straight catheter every hour(s) and record amount drain Dx: [] Bladder scan every hour(s) and straight cath for > ml Dx: [] Suprapubic catheter management Dx: Other Lines, Tubes and Drains: (to be managed by nursing protocol) [] IV access and location: [] Permanent [] Temporary: Instructions/indications for removal of IV access: [] May use Alteplase per protocol PRN occluded central venous catheter [] Colostomy [] Ileostomy [] Urostomy [] Nephrostomy [] Dialysis Access - Type & Location: [] Drains - Type & Location: [] Other: Activity/Therapies: []WBAT [] Weight Bearing Restricted (specify limb(s)): [x] PT Evaluation & Management for:SP L5-S1 fusion [x] OT Evaluation & Management for: [] TESTING COORDINATOR Evaluation &Management for: [] Other: Wound/Skin Care: [] Follow current recommendations of the wound team for treatment. [] Follow standard nursing protocols for wound care. [] Wound Vac management per nursing protocol. Indication: Location: Settings: Change frequency: & prn [] Other: Labs/Imaging: [] PT/INR: Frequency: Dx: Goal INR: Duration of therapy: [] Fingerstick glucose checks: Dx: DM [] Other: Test/Study Needed/Frequency Diagnosis/Indication Follow up appointments and consultations: Dr. Amol Triplett PA-C in 1 month. Date/Time I have advised this patient that he/she not use tobacco products. TB screening: Upon admission the 1st and 2nd step TST will be done as per protocol if Resid ent has no history of TB or a past positive TST. Pharmacist may substitute equivalent Rx based on facility or insurance formulary as needed unless otherwise specified by physician. Please write "NIA" (Dispense as written) if a medi cation should not be substituted. Please make sure to write a diagnosis for ALL medications continued on transfer. Antibioti cs require a stop date. If medications do not contain a SIG, make sure doses/routes and tushar edule is included. Medication Orders New Medications Details Order Next Dose Due diazepam 5 mg tablet Take 1 tablet by mouth every 6 hours as needed. aka: VALIUM By: Amlo Del Valle Sucharda Quant: 100 tablet docusate sodium 100 MG capsule Take 100 mg by mouth Twice daily as needed for Constipation. aka: COLACE By: Amol Del Valle Sucharda Quant: 100 capsule oxyCODONE-acetaminophen 10-325 mg per tablet Take 1-2 tablets by mouth every 4 hours as needed for Pain for up to 10 days. aka: PERCOCET By: Amol Del Valle Sucharda Quant: 100 tablet Unchanged Medications Details Order Next Dose Due ALBUTEROL SULFATE IN NEBU; 1-2 puffs every 3-4 hours as needed By: Data Migration Cedric Sr ASCORBIC ACID PO Take 1 tablet by [...] aka: NORCO ibuprofen 600 MG tablet aka: BALWINDER SERRA I, ANNETTE Gutierrez, certify that post hospital fpc care is medically nece ssary on a continuing basis for any of the conditions for which he/she received care during this hospitalization. Check one: [x] Skilled [] Intermediate Additional Orders/Instructions: Physician's signature: Amol Triplett PA-C_12/16/2014 7:43 [facility] USE ONLY: [] Admitting orders verbally reviewed with Admitting Physician, modified where appropriate, and approved. Verbal Order from Date: Time: _ RN name: RN signature: [] Admitting orders reviewed, modified where appropriate, and approved. Physician's signature: Date: Time: lan of Giana Su RRT - 12/16/2014 7:42 AM PDTProblem: General Plan of Care (Adult, Obste trics) Goal: Care Plan Shift Summary & Review . Outcome: Progressing Pt's Spo2 on RA are 95%, H/R 85. Has been released to self care with her Incentive breathin g device. MDI tx offered and taken this morning 2 puffs , BS clear and dim before and after tx. Pt states she feels better after tx. PEF 350/450. Plan is to be discharged later today t o a rehab in [facility]. Electronically signed by: Giana Rausch RRT 12/16/2014 7:42 lan of Mariam Camarillo RN - 12/15/2014 11:38 PM PDTProblem: Laminectomy, Laminotomy, Foraminotom y, Laminoplasty, Discectomy (Adult) Goal: Prevent/Manage Potential Problems (Laminectomy, Laminotomy, Foraminotomy, Laminoplast y, Discectomy (Adult)) Outcome: Signs and symptoms of listed potential problems will be absent or manageable (refe rence CPG) Outcome: Progressing lan of Mariam Brandt RN - 12/15/2014 11:36 PM PDTProblem: Fall/Trauma/Injury Risk (Adult, Obstetrics) Goal: Absence Of Trauma/Injury/Falls (Fall/Trauma/Injury Risk) Patient will demonstrate the desired outcomes. Outcome: Progressing Call light within reach, belongings at bedside, frequent rounding for safety, manage pain a dequately, monitor and assess every shift and as needed for fall risk factors, and assess fo r changes in patient status. lan of Mariam Brandt RN - 12/15/2014 11:26 PM PDTProblem: Fall/Trauma/Injury Risk (Adult, Obstetrics) Goal: Identify Signs And Symptoms And Related Risk Factors Signs and symptoms and related risk factors are identified upon initiation of Human Respons e Clinical Practice Guideline (CPG) Outcome: Progressing lan of Helene Lan RN - 12/15/2014 7:00 PM PDTProblem: General Plan of Care (Adult, Obstetrics) Goal: Care Plan Shift Summary & Review . Outcome: Progressing Alert and oriented. Started on decadron today. Up in room independently with B brace. Band- aids to back changed after shower today. Valium and robaxin given for muscle spasms. Percoce t given for pain. lan of Rekha James RRT - 12/15/2014 4:39 PM PDTProblem: General Plan of Care (Adult, Obstetri cs) Goal: Care Plan Shift Summary & Review . Outcome: Progressing Patient not on respiratory protocols, directing care, Rt to do therapy as ordered and l[place] ke recommendations as indicated. Patient is on room air. Breath sounds clear. Patient did not need her albuterol inhaler. Will call if one is needed. Continue to monitor patient. lan of Nuvia Saunders PT - 12/15/2014 11:45 AM PDTPhysical Therapy Daily Treatment Note Patient Information Patient Name: Demian Nina Date of : 1970 Age: 44 y.o. Precautions/Limitations: fall precautions, spinal precautions, orthotic/bracing (B-Brace) LUE Weight-Bearing Status: (No overhead work) RUE Weight-Bearing Status: (No overhead work) LLE Weight-Bearing Status: full weight-bearing RLE Weight-Bearing Status: full weight-bearing Start Time: 1148 Stop time: 1205 Time Calculation: 17 minutes Missed Treatment Time: minutes Total Treatment Time: 17 minutes TimedTreatment Code Minutes: 30 minutes Subjective: Pt presents in bed; says that her neck feels weak and wobbly the last couple of days. Reports that L UE sx are improving but says that L LE is the same. Pt plans to go to [place] for a few days if possible prior to returning home. Rates pain as 8-/10. Objective: Treatment Provided: Reviewed precautions and body mechanics and LSO. Functional mobility tr faye. Patient Status/Goals: Reflects last filed data of patient status; may be from multiple contributors. FIM: FIM Transfers Bed/Chair/Wheelchair: 5 Bed/Chair/WC Score Evidence: 5 Safety Supervision, 5 Verbal Cues FIM Locomotion Walk: 5 Distance Walked (feet): 150 feet Walk Score Evidence: 5 Supervise/150 ft+, 5 Verbal Cues/150 ft+ FIM Modifier DC Locomotion: walk Stairs: 5 Stairs Score Evidence: 5 Verbal Cues 12-14 Stairs, 5 Safety Sup 12-14 Stairs Assessment: Pt mobilizing with supervision and cues but still with decreased kinesthetic aw areness and altered sensation in L LE which affect her bed mobility, transfers, and gait pat tern. Physical Therapy Discharge Recommendations are: Recommended discharge disposition: home with family/caregiver after short term rehab at [facility] Post discharge physical therapy recommendation: outpatient therapy (when ordered by Dr. Dr alcocer) Plan for next treatment: 1P;KH;check on pt prior to planned d/c to [facility] tomorrow . Electronically signed by: Nuvia Dove, PT, 12/15/2014 15:18 lan of Care - Yue Tinsley - 12/15/2014 10:35 AM PDTDischarge Planning: Demian would like to go to [place] for a short stay prior to going home. She signed the "SNF options form" Placed the signed form in the ghost chart. Faxed referral to [place]. Received the "Communication result Report" (Result ok) place d the fax in the ghost chart. Will need prior auth from her Insurance company prior to discharge. Demian will be ready for discharge tomorrow. Her mother will transport her at discharge. Electronically signed by: Yue Wing 12/15/2014 10:40 Terrie called from [place], said everything looks good, they will run her Insurance in the AM lan of Roseline Batres, CONTROLS PROJECT ENGINEER - 12/15/2014 1:49 AM PDTProblem: General Plan of Care (Adult, Obstetrics) Goal: Care Plan Shift Summary & Review . Outcome: Progressing Pts on R/A BS clear No txs given lan of Rekha Crowder, CHAD - 12/14/2014 5:06 PM PDTProblem: General Plan of Care (Adult, Obstetr ics) Goal: Care Plan Shift Summary & Review . Outcome: Progressing Patient remains on room air. Breath sounds clear. Continue to monitor patient. lan of Kart[facility] - Nuvia Dove, PT - 12/14/2014 4:30 PM PDTPhysical Therapy Daily Treatment Note Patient Information Patient Name: Demian Nina Date of : 1970 Age: 44 y.o. Precautions/Limitations: fall precautions, spinal precautions, orthotic/bracing (B-Brace) LUE Weight-Bearing Status: (No overhead work) RUE Weight-Bearing Status: (No overhead work) LLE Weight-Bearing Status: full weight-bearing RLE Weight-Bearing Status: full weight-bearing Start Time: 1630 Stop time: 1658 Time Calculation: 28 minutes Missed Treatment Time: minutes Total Treatment Time: 28 minutes TimedTreatment Code Minutes: 30 minutes Subjective: Pt reports that migraine is better and that she just had pain meds so pain is u nder control. Says her L LE is still numb and she is concerned about this. Objective: Treatment Provided: Reviewed post op precautions and body mechanics recommendations and LSO with pt. Bed mobility, transfer, gait training on level and stairs. Placed cold gel pack at low back at end of session. Patient Status/Goals: Reflects last filed data of patient status; may be from multiple contributors. 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 Improving functional mobility; now mobilizing with super vision and cues. Physical Therapy Discharge Recommendations are: Recommended discharge disposition: home with family/caregiver Post discharge physical therapy recommendation: outpatient therapy (when ordered by Dr. Dr alcocer) Plan for next treatment: Re-attempt PT later this p.m. per pt request Electronically signed by: Nuvia Dove, PT, 12/14/2014 17:02 lan of [facility] - Nuvia Pichardo, PT - 12/14/2014 3:50 PM PDTMissed Visit Patient Information Patient Name: Demian Nina Date of : 1970 Age: 44 y.o. The patient was unable to be seen for today's scheduled visit due to migraine and not feeli ng well enough to get up. Plan: Re-attempt PT later this p.m. per pt request Electronically signed by: Nuvia Dove, PT, 12/14/2014 15:50 lan of Adriana Gilbert, OT - 12/15/19 15 2:54 PM PDTProblem: General Plan of Care (Adult, Obstetrics) Goal: Care Plan Shift Summary & Review . Occupational Therapy Daily Treatment Note Patient Information Patient Name: Demian Nina Date of : 1970 Age: 44 y.o. Precaution/special problems: Precautions/Limitations: fall precautions, spinal precautions, orthotic/bracing (B-Brace) L UE weight-bearing Status: LUE Weight-Bearing Status: (No overhead work) R UE weight-bearing Status: RUE Weight-Bearing Status: (No overhead work) L LE weight-bearing Status: LLE Weight-Bearing Status: full weight-bearing R LE weight-bearing Status: RLE Weight-Bearing Status: full weight-bearing Start Time: 1440 Stop time: 1450 Time Calculation: 10 minutes Missed Treatment Time: 0 minutes Total Treatment Time: 10 minutes TimedTreatment Code Minutes: 10 minutes Subjective: Patient starting to get out of bed, states she needs to use the restroom. Objective: Seen for follow up visit for education. Education: Education re AE for dressing. Education re precautions with toilet hygiene. Treatment Provided: Performed log roll to EOB with SBA and verbal cues. Donned brace indepe ndently. Completed toilet transfer mod independent. Discussion with patient regarding maki g on LB dressing techniques, she denied at this time stating that she feels comfortable with what she did yesterday. Patient Status/Goals Reflects last filed data of patient status; may be from multiple contributors. FIM: FIM Transfers Bed/Chair/Wheelchair: 3 Bed/Chair/WC Score Evidence: 3 Lift Two Legs Toilet: 6 Toilet Transfer Evidence: 6 Extra Time, 6 Raised Toilet Seat [place] FIM Self Care Groomin Grooming Score Evidence: 5 Verbal Cues, 5 Safety Supervison, 6 Extra Time Dressing - Lower Body: 4 Dressing Lower Score Evidence: 4 Steadying, 5 Verbal Cues, 5 Safety Supervision, 6 Extra Ti me FIM Locomotion Walk: 2 Distance Walked (feet): 75 feet Walk Score Evidence: 2 Pt 25-49% Effort/50-149ft Stairs: 5 Stairs Score Evidence: 5 Verbal Cues 12-14 Stairs, 5 Safety Sup 12-14 Stairs Assessment: Patient demonstrated good mobility and transfer technique during session. Decli chary training in other areas at this time. Patient most likely being d/c home to to SNF [facility]. Occupational Therapy Discharge Recommendations are: Recommended discharge disposition: Recommended Discharge Disposition(OT): home with family /caregiver, ADL assist, safety assist, can be alone for short periods Post discharge occupational therapy recommendation: Post D/C Occupational Therapy Recommen dations: no further OT Plan for next treatment: No further OT at this time, patient reports she is going home or t o a SNF tomorrow, denies any further questions. Electronically signed by: Adriana Holcomb, WILLIAMS, 12/14/2014 14:52 lan of Kartik - Darek Paulino RRT - 12/14/2014 3:52 AM PDTProblem: General Plan of Care (Adult, Obstetrics ) Goal: Care Plan Shift Summary & Review . Outcome: Progressing Pts on R/A sats 97% BS clear no txs given T/O the night lan of Kartik - Rachael Mancera ra, RN - 12/13/2014 7:58 PM PDTProblem: General Plan of Care (Adult, Obstetrics) Goal: Care Plan Shift Summary & Review . Outcome: Progressing A&Ox3, c/o pain to lower back, radiating to bilateral lower legs, taking norco q 4-6 hrs pr n, diazepam given twice this shift r/t muscle stiffness. Continues with numbness to BLE <lef t LE. Ambulating w fww+cga. Following lumbar precautions well, B-brace. On room air, no c/o sob. HRR, cms intact except c/o numbness. JENNIFER draining minimal amount serosanguious drainage. lan of Eloisa Quiroz OT - 12/13/2014 3:15 PM PDTFormatting of this note might be different from daniela tom. Occupational Therapy Acute Initial Evaluation Note Patient Information Patient Name: Demian Nina Date of : 1970 Age: 44 y.o. History No diagnosis found. Date of Onset: 12/12/14 Referring Physician: Dr. Mir Past Medical History Diagnosis Date Morbid obesity [...] after anesthesia. PONV (postoperative nausea and vomiting) Past Surgical History Procedure Laterality Date Tonsillectomy Adenectomy Shoulder surgery Cholecystectomy section, low transverse 1995 section, low transverse 2005 Lumbar laminectomy N/A 12/12/2014 Procedure: L5-S1 Transforaminal Lumbar Interbody Fusion; Surgeon: Sascha Mir, DO; L ocation: [facility] OR Allergies Allergen Reactions Ethyl Chloride Anaphylaxis Had ingrown toenail removed last year. Several hours after procedure, patient developed a naphylaxis. Believed to be from ethyl chloride spray, per patient. Procainamide Hcl Anaphylaxis Allergic to anesthetics Anesthetics, Ludmila Itching Allergic to anesthetics - reports throat swelling, itching Latex Itching Morphine Itching and Rash Hydromorphone Itching Precautions/Limitations: fall precautions, spinal precautions, orthotic/bracing (B-Brace) LUE Weight-Bearing Status: (No overhead work) RUE Weight-Bearing Status: (No overhead work) LLE Weight-Bearing Status: full weight-bearing RLE Weight-Bearing Status: full weight-bearing Evaluation SUBJECTIVE: History of Presenting Problem: Demian Nina is a 44 y.o. who presents to therapy for Back pain x 10 years, insiduous onset, worse the last 2 years. BLE sx L>R. Di fficulty walking few blocks. Now s/p L5-S1 TLIF, B-Brace. Did not attend Spine Class. Patient is right handed. OT Diagnosis: Impaired ADLs, decreased functional mobility Previous Level of Function: Ambulation: 0-->independent (fell x 1 recently) Transferrin-->independent Toiletin-->independent Bathin-->independent Dressin-->independent Eatin-->independent Communication: 0-->understands/communicates without difficulty Swallowin-->swallows foods and liquids without difficulty * Change In Functional Status Since Onset Of Current Illness/Injury: yes Role/Relationships: Significant Relationships: parent, child (18 y/o son, nephew) Living Environment/Accessibility: Lives With: child(mckay), dependent, other relative(s) (specify), parent(s) (18 y/o son, neph ew, mother) Living Arrangements: house Home Accessibility: tub/shower is not walk in, stairs to enter home, stairs within home, be d and bath are not on the first floor Number Of Stairs To Enter Home: 24 (2 flights) Number Of Stairs Within Home: 0 Stair Railings At Home: present of both sides Financial Concerns: none Transportation Available: car Living Environment Comment: 2-story home, bedroom & bathroom on 2nd floor. No specific dede ce for pt to sleep on the main floor. Patient s Goals: Go home when ready. Criteria for Skilled Therapeutic interventions Met:: yes OT Visit Summary: Pt seen post-operatively for OT evaluation following L5-S1 TLIF. She di d not attend Spine Class and partially read through Handbook. Pain complaint of 9-10 not consistent w/ facial expression, body language, or functional mobility. Supine-sit w/ SBA, verbal cuing. Donned underwear w/o use of button riveter but may benefit to increase ease. Sit-s tand w/ SBA & light CGA to machine puller over hips. Tolerated standing @ sink to brush teeth/hair. Ambulated ~30 ft w/ FWW & light CGA/SBA. Sit-supine w/ SBA. Needed assist to scoot hips to reposition in bed. Educated on OT POC. Call light in reach. Occupational Therapy will follow Demian Nina (2-3 addt'l OT visits) until discharg e from therapy. Occupational Therapy Discharge Recommendations are: Recommended discharge disposition: home with family/caregiver, ADL assist, safety assist, can be alone for short periods Post discharge occupational therapy recommendation: no further OT Equipment Recommendations: shower chair, tub bench, sock aide, button riveter, front wheeled walk er Planned Interventions:Planned Therapy Interventions: ADL retraining, balance training, bed mobility training, transfer training Patient Status/Goals Reflects last filed data of patient status; may be from multiple contributors. FIM: FIM Self Care Groomin Grooming Score Evidence: 5 Verbal Cues, 5 Safety Supervison, 6 Extra Time Dressing - Lower Body: 4 Dressing Lower Score Evidence: 4 Steadying, 5 Verbal Cues, 5 Safety Supervision, 6 Extra Ti me Basic ADLs Goal Upper Body Dressing Upper Body Dressing STG Status: New STG Upper Body Dressing: modified independent Goal Lower Body Dressing Lower Body Dressing STG Status: New STG Lower Body Dressing: modified independent Goal Toileting Toilet Training STG Status: New STG Toileting: modified independent Goal Grooming Grooming STG Status: New STG Grooming: modified independent Transfers Goal Transfers Toilet Toilet Transfer STG Status: New STG Transfers Toilet: modified independent Goal Transfers Tub Tub Transfer STG Status: New STG Transfers Tub: supervision/set up Additional Goals OT Status 1: New OT Goal 1: 100% verbal recall of spinal precautions. Assessment: Occupational therapy orders received and acknowledged. Objective impairments i nclude impaired ADLs & functional mobility. These impairments are causing functional limitat ions with patient s inability to safely & independently. Complexities contributing to the need for skilled therapy include morbid obesity; DM; Pars defect of lumbar spine; new L5-S1 TLIF; potentially pain. Prognosis: good good, to achieve stated therapy goals Patient and/or family has indicated understanding of treatment needs and actively participa elle in the creation of this plan for care. Today's Treatment Start Time: 854 Stop time: 924 Time Calculation: 30 minutes Missed Treatment Time: minutes Total Treatment Time: 30 minutes TimedTreatment Code Minutes: 20 minutes Objective: Pt seen for OT evaluation. Please see above for addt'l details regarding outco me & status. Education: OT POC; safety; AE/DME needs Treatment Provided: ADL training; functional mobility; safety awareness Assessment: Pt demonstrating fair-good mobility despite pain complaints. Some concern note d regarding d/c plan- home is 2-story w/ her bedroom/bathroom on 2nd floor. Pt also has nee ds for DME. As she did not attend Spine Class would benefit from 2-3 addt'l OT visits to co nfirm needs, ensure safety, and maximize safety/independence. Plan for next treatment: 1P,JM.U/LB dressing,determine AE/DME needs,bathtub transfer Electronically signed by: Eloisa Iqbal OT, 12/13/2014 15:15 lan of [facility] Jazlyn Kelly, CONTROLS PROJECT ENGINEER - 12/13/2014 3:10 PM PDTProblem: General Plan of Care (Adult, Obstetrics) Goal: Care Plan Shift Summary & Review . Outcome: Progressing Pt meets goals with IS. Working with PT. Has albuterol MDI at home for PRN use, order rec eived from for same. Given this morning with improvement. lan of [facility] Nuvia Stinson, PT - 12/13/2014 10:28 AM PDTPhysical Therapy Daily Treatment Note Patient Information Patient Name: Demian Nina Date of : 1970 Age: 44 y.o. Precautions/Limitations: spinal precautions, orthotic/bracing, fall precautions ("B" brace and precautions) LUE Weight-Bearing Status: (no lifting, pushing, pulling > 5 lbs; minimize overhead work) RUE Weight-Bearing Status: (no lifting, pushing, pulling > 5 lbs; minimize overhead work) Start Time: 1028 Stop time: 1055 Time Calculation: 27 minutes Missed Treatment Time: minutes Total Treatment Time: 27 minutes TimedTreatment Code Minutes: 30 minutes Subjective: Pt reports that her L UE and LE are the same as yesterday. Reports "tailbone" p ain as 9/10. States the pain also goes down her L LE to her toes and R hip/prox. thigh is te nder. Pt reports 1/2 grade increase in pain with stair training. Objective: Treatment Provided: Reviewed post op precautions and body mechanics recommendations with pt . Bed mobility, transfer, gait, and stair training. Pt instructed to have family place chair on landing so she can rest prior to climbing 2nd flight of stairs into home. Also used mirr or for visual feedback during sit <> stand transfers. RN in to give meds after stair trainin g. Pt left up in wc with x-ray tech at end of session. Patient Status/Goals: Reflects last filed data of patient status; may be from multiple contributors. FIM: FIM Transfers Bed/Chair/Wheelchair: 3 Bed/Chair/WC Score Evidence: 3 Lift Two Legs FIM Locomotion Walk: 2 Distance Walked (feet): 75 feet Walk Score Evidence: 2 Pt 25-49% Effort/50-149ft Stairs: 5 Stairs Score Evidence: 5 Verbal Cues 12-14 Stairs, 5 Safety Sup 12-14 Stairs Assessment: Pt tired and with mild increase in pain "9 1/2" after stair training. Still str uggles with bed mobility but able to don LSO independently. Will benefit from 1-2 more sessi ons with focus on bed mobility. Demos improved transfer after training in front of mirror. Physical Therapy Discharge Recommendations are: Recommended discharge disposition: home with family/caregiver Post discharge physical therapy recommendation: outpatient therapy (when ordered by Dr. Dr alcocer) Plan for next treatment: 1P;KH;review stairs and bed mobility with pt Electronically signed by: Nuvia oDve, PT, 12/13/2014 10:59 lan of Kartik - Lanette Harris RN - 12/13/2014 7:22 AM PDTProblem: General Plan of Care (Adult, Obstetrics) Goal: Care Plan Shift Summary & Review . Outcome: Progressing Pain control improved throughout the night. Needs to be encouraged to take pain med. Cons istently rates pain at 9-10/10 with pain never decreasing below 5-6/10. Up w/1 assist to BR , assisted w/LSO application. JENNIFER drain continues, slowly decreasing in amount. Need to encou rage increased mobility. Anticipate discharge Tuesday am. lan of Care - Rusty Lackey RRT - 12/13/2014 2:26 AM PDTProblem: General Plan of Care (Adult, Obstetrics) Goal: Care Plan Shift Summary & Review . The patient has a SpO2: 98 % on 2 (Decreased from 3 L/Min) liters/minute nasal cannula and is clear throughout. Her Rhythm/Pattern (Respiratory): rate regular. She does well with her IS getting 2500 of Predicted Level (mL)(Incentive Spirometer): 2300. She did not require add itional respiratory care throughout the night. lan of Care - F Liz tirado RN - 12/12/2014 11:04 PM PDTProblem: General Plan of Care (Adult, Obstetr ics) Goal: Care Plan Shift Summary & Review . Outcome: Progressing Pt arrived to room 315 about 1500 and was not able to stand and transfer from gurney to bed s/p lumbar fusion grade B brace. Pt report tingling to left hand and mild numbness and tin gling to left leg and foot. Cloth Weaver strong, right foot stong, but left foot moderate in stren gth. Right leg 5/5 and left 4/5. Pt is now able to ambulate from bed to bathroom with CGA. Pt needs mod assist in and out of bed and requires assistance don and doff with brace. LS are CTA but pt shallow breaths with sleep so O2 3 liters per NC in place, SPO2 95%. HRR. B owel tones active and passing flatus, pt tolerating a full liquid diet. Pt voiding without difficulty. Using norco, valium, robaxin, and IV fentanyl for pain control. lan of Care - P Rekha mendez CONTROLS PROJECT ENGINEER - 12/12/2014 9:30 PM PDTProblem: General Plan of Care (Adult, Obstetric s) Goal: Care Plan Shift Summary & Review . Outcome: Progressing BS clear. Patient achieving 2500 of Predicted Level (mL)(Incentive Spirometer): 2300. SpO 2: 95 % on 3liters/minute nasal cannula. Will continue to monitor. p Note - Sascha Mir DO - 12/12/2014 6:49 PM PDTDATE: 12/12/2014 SURGEON: Sascha Mir DO. STRAWHAT SIZER: None. PREOPERATIVE DIAGNOSES 1. Spondylolisthesis, L5-S1. 2. Spinal stenosis, L5-S1. 3. Lumbosacral radiculopathy. 4. Lumbago. 5. Morbid obesity. POSTOPERATIVE DIAGNOSES 1. Spondylolisthesis, L5-S1. 2. Spinal stenosis, L5-S1. 3. Lumbosacral radiculopathy. 4. Lumbago. 5. Morbid obesity. PROCEDURES PERFORMED 1. Combined posterior interbody and posterolateral arthrodesis L5-S1. 2. Posterior spinal instrumentation L5-S1. 3. PEEK interbody at L5-S1. 4. Laminectomies L5, S1 for the purpose of decompression. 5. Use of intraoperative microscope for microdissection. 6. Coregistration for neuro navigation of the spine. ESTIMATED BLOOD LOSS: 100 mL. ANESTHESIA: General endotracheal anesthesia. FINDINGS: Spondylolisthesis L5-S1. DRAINS: JENNIFER. COMPLICATIONS: None. DISPOSITION: The patient stable to the PACU. INDICATION FOR THE PROCEDURE: Ms. Nina is a 44-year-old woman who presents with signs, s ymptoms, and radiographic evidence of spondylolisthesis L5-S1. MRI and dynamic x-rays of the lumbar spine revealed the pathology. Given her symptoms, the patient decided to proceed wit h transforaminal lumbar interbody fusion L5-S1. SURGICAL RISKS: The patient was well-appraised of all objectives, benefits, risks, and pote ntial complications of the procedure including, but not limited to, worsening of his current status, possible need for further procedures, risk of infection, headache, CSF leak, possib le spinal nerve injury resulting in paralysis, injury to major vessels causing hemorrhage, s troke, loss of language function, and even . No assurance was given whether symptoms wo uld improve following the procedure. Informed consent was obtained and secured in the chart after the patient voiced understanding of these risks and decided to proceed with the operat ion. DESCRIPTION OF PROCEDURE: The patient was transferred to operating room #2. She was given p reoperative prophylactic IV antibiotics. The patient was sedated and intubated without diffi culty by the anesthesia service. Eyes were taped shut after ointment was applied to prevent corneal abrasion. Vini Hugger was placed over the upper and lower body to maintain control o f core body temperature. Burgos catheter was not inserted. The patient was turned prone on Ja ckson table. All pressure points were carefully padded. Note: The surgery was much more complicated due to morbid obesity requiring extra long inst ruments and techniques not traditionally employed in this procedure. OPERATIVE TECHNIQUE: The patient was prepped and draped in standard sterile fashion. The O- arm was draped sterilely and brought into the operative field. Levels of interest, which wer e L5 and S1, were targeted and an intraoperative scan with O-arm was performed for the purpo ses of coregistration with the Stealth navigation system. Using the Stealth probe, appropriate incisions bilaterally were outlined to allow for optim al pedicle screw placement, laminectomies, and facetectomy. The skin was marked with a marking pen along the planned incision and this was infiltrated with 0.25% Marcaine with epinephrine. The marked incision was opened sharply with a #10 blad e on the right side. The Stealth navigation probe was used to align a proper trajectory in t he L5 and S1 pedicles bilaterally. Tissue protector was slid over the probe and awl-TAP comb ination device was used to cannulate the pedicles at L5 and S1 on the right. Then, 6.5 mm x 45 mm Sextant Solera pedicle screws were then placed into the pedicles on the right at L5 an d 8.5 mm x 40 mm at the S1 level. Next attention was turned to the left side where the same procedure ensued. The appropriate incision was marked with 0.25% Marcaine with epinephrine. This was opened sharply with a #1 0 blade and the Stealth navigational probe was used to find the appropriate trajectory into the pedicles at the right L5 and S1 level. The tissue protector was slid over the probe, and awl-TAP combination device was used to cannulate the pedicles, then guidewires were left in place and snapped to the drape at the L5 and S1 pedicles on the left. The Stealth navigation probe was used to target the facet joint on the left side at L5-S1. This was dilated up to 22 mm and a 22 mm x 9 cm retractor was docked at the facet joint at L 5-S1. The microscope was draped sterilely and brought into the operative field, and the soft tissues were cleared away from the bone. Next, using high speed electric drilling, the facet joint at L5-S1 was resected. The patien t's bone dust was saved in a bone trap. The tube was then tilted superiorly and the inferior lamina of L5 was resected with high speed drilling down to the level of the ligamentum flav um, and then the tube was tilted inferiorly, and the superior lamina of S1 was resected with high speed electric drilling down to the level of the ligamentum flavum. The laminectomies were for the purpose of decompression. Next, the ligamentum flavum was uplifted and epidural space was encountered. The disk space at L5-S1 was reached. The S1 nerve and thecal sac were gently retracted, and an annulotomy was performed with a #11 scalpel blade. The diskectomy was carried out using a series of end plate lewis, curettes, and rongeurs. Endplates were prepared and rasped to expose bleeding subchondral bone. The disk space was then packed with cancellous bone chips. Next, a 9 mm x 26 mm Ti-coated Capstone PEEK cage from [employer] was chosen. It was filled with Infuse and the patient's own autograft. It was tamped into the disk space under navigat ional guidance. The traversing and exiting nerve roots were found to be completely decompres sed. Hemostasis was achieved and Gelfoam placed was placed over the neural elements, and the pat ient's own autograft was placed on top of the Gelfoam. The tubular retractor was then remove d. Next, attention was turned to the guidewires on the left at the L5 level and S1 level, a 6. 5 mm x 50 mm pedicle screw was inserted at L5 and 7.5 mm x 40 mm at S1. The screw extenders were interconnected bilaterally, and the measuring device was used to determine the appropri ate size rods. A 45 mm nayan was selected bilaterally. More cephalad transverse incisions were made bilaterally, and the rods were passed into the screw extenders. They were then reduced down and set screws were placed and torqued to the manufacture's recommended torque. The screw extenders were then removed bilaterally. Final A P and lateral fluoroscopy revealed ideal placement of all hardware. Hemostasis was meticulou sly achieved. Richard- Goldberg drain was placed on the patient's right side. The incisions were closed with 2-0 interrupted Vicryl in buried fashion, and the skin was r eapproximated with Mastisol and Steri-Strips. Band-Aids were placed over all the wounds. All sponge counts, needle counts, and instrument counts were correct at the end of the case x2. The patient tolerated the procedure well without any complication, and was transferred in stable condition to the recovery room. Electronically signed by Sascha Mir DO at 02/2015 6:53 PM PDTBrief Op Note - Sascha Mir DO - 12/12/2014 6:48 PM PDT Brief Operative Note Demian Nina 44 y.o. female 1970 [id number] Proc. Date 12/12/2014 Preop Dx Acquired spondylolisthesis Postop Dx same Procedure Procedure(s):L5-S1 Transforaminal Lumbar Interbody Fusion Anesthesia General Surgeon Surgeon(s) and Role: * Sascha Mir DO - Primary Smocking Machine Operator NA EBL 100 mL Findings Findings consistent with scheduled procedure. No other abnormalities found. Complications none Specimens * No specimens in log * Drains Drain/Device Site 12/12/14 #1 posterior lumbar spine collapsible closed device (Active) Insertion Site Appearance no hematoma;clean and dry 12/12/2014 15:00 Insertion Site Care dressing intact 12/12/2014 15:00 Drainage Characteristics/Odor serosanguineous 12/12/2014 15:00 Drainage Amount small 12/12/2014 15:00 General Output (mL) 0 12/12/2014 14:05 Electronically signed by: Sascha Mir DO 12/12/2014 18:48 [facility] lan of Rekha Walsh RRT - 12/12/2014 6:12 PM PDTProblem: General Plan of Care (Adult, Obstetrics) Goal: Care Plan Shift Summary & Review . Outcome: Progressing Patient's oxygen was titrated to 3l/m nc. Breath sounds clear anterior. Works well with i nsp. Continue to monitor patient. lan of Kartik - Nuvia Dove PT - 12/12/2014 5:20 PM PDTFormatting of this note might be different f rom the original. Physical Therapy Acute Initial Evaluation Note Patient Information Patient Name: Demian Nina Date of : 1970 Age: 44 y.o. History No diagnosis found. Date of Onset: 12/12/14 Referring Physician: Clarke Past Medical History Diagnosis Date Morbid obesity [...] after anesthesia. PONV (postoperative nausea and vomiting) Past Surgical History Procedure Laterality Date Tonsillectomy Adenectomy Shoulder surgery Cholecystectomy section, low transverse 1995 section, low transverse 2005 Allergies Allergen Reactions Ethyl Chloride Anaphylaxis Had ingrown toenail removed last year. Several hours after procedure, patient developed a naphylaxis. Believed to be from ethyl chloride spray, per patient. Procainamide Hcl Anaphylaxis Allergic to anesthetics Anesthetics, Ludmila Itching Allergic to anesthetics - reports throat swelling, itching Latex Itching Morphine Itching and Rash Hydromorphone Itching Precautions/Limitations: spinal precautions, orthotic/bracing, fall precautions ("B" brace and precautions) LUE Weight-Bearing Status: (no lifting, pushing, pulling > 5 lbs; minimize overhead work) RUE Weight-Bearing Status: (no lifting, pushing, pulling > 5 lbs; minimize overhead work) EVALUATION: SUBJECTIVE: History of Presenting Problem: Demian Nina is a 44 y.o. who presents wi th hx of insidious onset of back pain marcos. 10 yrs ago. Sx have been progressively worsening over the last couple of years to the point where pt c/o B LE sx (L worse than R) and was hastings ited to walking only a few blocks. Pt now s/p L5-S1 decompression and fusion (TLIF). Pt repo rts L UE numbness in distal 2/3 of her arm and digits 1-4 since surgery. Says she has no leg pain but reports numbness and tingling down entire L LE. PT Diagnosis: decreased sensation L UE & LE, weakness, pain, difficulty walking, overall i mpaired functional mobility Impairments Found: gait, locomotion, and balance, muscle performance, sensory Integrity, po sture Criteria for Skilled Therapeutic interventions met: yes Previous Level of Function: Ambulation: 0-->independent Transferrin-->independent Toiletin-->independent Bathin-->independent Dressin-->independent Eatin-->independent Communication: 0-->understands/communicates without difficulty Swallowin-->swallows foods and liquids without difficulty * Change In Functional Status Since Onset Of Current Illness/Injury: yes Living Environment/Accessibility: Lives With: (mom and 18 yr old son, so will have 24/7 assist as needed) Living Arrangements: house Home Accessibility: stairs to enter home Number Of Stairs To Enter Home: 24 (2 flights) Number Of Stairs Within Home: 0 Stair Railings At Home: present of both sides Financial Concerns: none Transportation Available: car Patient s Goals: To heal up and be able to get a job OBJECTIVE : Patient Status/Goals: Reflects last filed data of patient status; may be from multiple contributors. Sensory Examination L UE General Sensation: impaired L LE General Sensation: impaired Bed Mobility Bed Mobility Skill: Sit To Supine, Rehab Eval Level Of Pinckard: Sit/Supine: moderate assist (50% patients effort) Physical Assist/Nonphysical Assist: Sit/Supine: 1 person assist, verbal cues Assistive Device: Sit/Supine: bed rails Goal Bed Mobility Sit to Supine Sit to Supine STG Status: New STG Bed Mobility Sit to Supine: independent Bed Mobility Skill: Supine To Sit, Rehab Eval Level Of Pin[place]: Supine/Sit: moderate assist (50% patients effort) Physical Assist/Nonphysical Assist: Supine/Sit: 1 person assist, verbal cues Assistive Device: Supine/Sit: bed rails Goal Bed Mobility Supine to Sit Supine to Sit STG Status: New STG Bed Mobility Supine to Sit : independent Transfers Transfer Skill: Sit To Stand, Rehab Eval Level Of [place]: Sit/Stand: minimum assist (75% patients effort) Physical Assist/Nonphysical Assist: Sit/Stand: 1 person assist, verbal cues (from raised be d) Assistive Device For Transfer: Sit/Stand: 2 wheeled walker Goal Transfers Sit to Stand Sit to Stand STG Status: New STG Transfers Sit to Stand : modified independent Gait Gait Skills, PT Eval Level Of Pinckard: Gait: contact guard assist (75% patient effort) Physical Assist/Nonphysical Assist: Gait: 1 person assist, verbal cues Assistive Device For Transfer: Gait: 2 wheeled walker Gait Distance: 15 feet Goal Gait Gait STG Status: New STG Gait: modified independent STG Gait Device: 2 wheeled walker STG Gait Distance: 150 feet Stairs Stair, Performance Number Of Stairs: 0 Goal Stairs Stairs STG Status: New STG Number of Stairs: 24 STG Stairs: supervision/set up STG Stairs Device: 2 railings Strength B LE strength impaired but pt able to move LEs part way thru ROM during supine heel slide . L ankle 1/2-1 grade weaker than R. Additional Goals PT Status 1: New PT Goal 1: Pt to be able to state all post op precautions and body mechanics recommenations and don/doff/adjust LSO independently To promote: Safe discharge home with family/caregiver FIM: FIM Transfers Bed/Chair/Wheelchair: 3 Bed/Chair/WC Score Evidence: 3 Lift Two Legs FIM Locomotion Walk: 1 Distance Walked (feet): 15 feet Walk Score Evidence: 1 Walks <50 ft Stairs: 0 Stairs Score Evidence: 0 Did Not Occur Assessment: Physical therapy orders received and acknowledged. Objective impairments inclu de pain, weakness, altered sensation. These impairments are causing functional limitations w ith patient s inability to perform bed mobility, transfers, and gait. Complexities contrib uting to the need for skilled therapy include DM, pelvic inflammatory disease, and hx of MD . Rehab Potential: good, to achieve stated therapy goals Rehabilitation potential: Patient demonstrates good potential to achieve established goals and good potential to achieve prior status to address the documented impairments by partici pating in skilled physical therapy services. PLAN: bed mobility training, transfer training, gait training, strengthening, postural re-educati on, orthotic fitting/training, neuromuscular re-education Physical Therapy will follow Demian Nina daily (1-2x daily as needed) until dischar ge from therapy or discharged from the hospital. Anticipated days that therapy will be provided: 2-3 Physical Therapy Discharge Recommendations are: Recommended discharge disposition: home with family/caregiver Post discharge physical therapy recommendation: outpatient therapy (when ordered by Dr. Dr alcocer) Equipment Recommendations: walker Patient and/or family has indicated understanding of treatment needs and actively participa elle in the creation of this plan for care. Today's Treatment Start Time: 1719 Stop time: 1814 Time Calculation: 55 minutes Missed Treatment Time: minutes Total Treatment Time: 55 minutes TimedTreatment Code Minutes: 30 minutes Objective: Treatment Provided: PT eval completed (see above). Discussed home situation and pt provided with training re: post op precautions, body mechanics recommendations, LSO, bed mobility, t ransfer, and gait training. Brought higher FWW for improved postural control and assisted pt to reposition on her side with cold gel pack at low back at end of session. Assessment: Good participation but mobility limited due to pain, weakness and impaired sens ation in L UE & LE. Plan for next treatment: 2P (for lines);KH;re-assess dermatomes and myotomes; func. mobili ty and stair training Electronically signed by: Nuvia Dove, PT, 12/12/2014 18:50 documented in this encounter Plan of Treatment [...] | of hardware for posterior fusion from S3vryrcnj S1 with interbody hardware at L5-S1. | [...] + + | Performing | Address | City/State/[facility] | Phone Number | | Organization | [...] 125 | 70 - 150 mg/dL | [facility] | | | POC | | | [facility] | | | | | | MEDICAL [...] + | [facility] | [address] | [place] | [phone] | | [facility] | | [address] | | | - LABORATORY | | [...] Specific | | | | | | [place], | | | | | | POC | | | | | + + + + + + | Internal QC | Acceptable | | | | + + + + + + | Lot Number | [id number] | | | | + + + [...] [address] | [place] | [phone] | | [facility] | | [address] | | | - LABORATORY | | [...] | | | | | | [facility] | | | | | | MEDICAL | | | | | | CENTER - | | | | | | BLOOD BANK | | + + + + + + | Rh Type | Positive | | [facility] | | | | | [facility] | | | | | | MEDICAL | | | | | | CENTER - | | | | | | BLOOD BANK | | + + + + + + | Antibody | Negative | | [facility] | | | Screen | | | [facility] | | | | | | MEDICAL [...] [address] | [place] | | | [facility] | | [address] | | | - BLOOD BANK | | | | + + + + + documented in this encounter Visit Diagnoses + + | Diagnosis | + + | Acquired spondylolisthesis | + + documented in this encounter Admitting Diagnoses + + | Diagnosis | + + | Acquired spondylolisthesis | + + documented in this encounter Administered Medications + +--------+ +--------+------+ + | Medication Order | MAR | Action | Dose | Rate | Site | | | Action | Date | | | | + +--------+ +--------+------+ + | bupivacaine 0.25%-EPINEPHrine | Given | 12/13/19 | 20 mLs | | Surgical | | 1:200,000 injection PRN, | | 15 10:33 | | | Site | | Starting Kathe 12/12/14 at 1033, | | AM PDT | | | | | Intra-op | | | | | | + +--------+ +--------+------+ + +---+---+ | | | +---+---+ + +-------+ +---------+---+ + | thrombin (THROMBIN-JMI) 5,000 | Given | 12/13/19 | 10,000 | | Surgical | | units powder PRN, Starting Kathe | | 15 10:33 | Units | | Site | | 12/12/14 at 1033, Intra-op | | AM PDT | | | | + +-------+ +---------+---+ + +---+---+ | | | +---+---+ documented in this encounter
--- OUTSIDE RECORDS SUMMARY | ~2020-04-02 | XMS | Encounter Summary ---
Demographics + + + | Address | [address] | | | [place] [address] | + + + | Home Phone [...] [place] | | | | | [address] | | + + + + + | Pratibha Hester | ECON | Unknown | + | + + + + + | Demian Powell | ECON | Unknown | + | + + + + + Care Team Providers + +------+ + | Care K 12 Principal Name | Role | Phone | + [...] + | 03/17/ | Telephone | [facility] | Sascha Mir, | Other | | 2014 | | NEUROSURGERY [address] | DO [address] | | | | | [address] | [address] [place], [place] | | | | | [place] | [phone] | | | | | [address] | | | | | | [phone] | | | +--------+ + + + [...] patient requesting a call bertha avery. ELINA FAIRBANSK elephone Sepideh Benton - 03/18/2015 9:09 AM PDTPatient returned call. Would like a call back. elephone Encounter - Elina Patel Cert MA - 03/18/2015 8:15 AM PDTVM left for [place] requesting a return call. ELINA FAIRBANKS elephone [...]
--- OUTSIDE RECORDS SUMMARY | ~2020-04-02 | XMS | Encounter Summary ---
Demographics + + + | Address | [address] | | | [place] [address] | + + + | Home Phone [...] Author + + + | Author | [facility] | | | and [place] | + + + | Organization | [facility] | | | [...] [place] | | | | | [address] | | + + + + + | Pratibha Hester | ECON | Unknown | + | + + + + + | Demian Powell | ECON | Unknown | + | + + + + + Care Team Providers + +------+ + | Care Career Coach Name | Role | Phone | + +------+ + | Quentin Manriquez PA-C | MARCK | | + +------+ + Reason for Visit + +--------+ + | Reason | Onset | Comments | | | Date | | + +--------+ + | Appointment | 06/17/ | | | | 2014 | | + +--------+ + Encounter Details +--------+ + + + + | Date | Type | Department | Care Team | Description | +--------+ + + + + | 06/17/ | Telephone | [facility] | Sascha Mir, | Appointment | | 2014 | | NEUROSURGERY [address] | DO [address] | | | | | [address] | [address] [place], [place] | | | | | [place] | [id number] | | | | | [address] | | | | | | [phone] | | | +--------+ + + + [...] this encounter Miscellaneous Notes Telephone Encounter - Haydee Whiting - 06/18/2015 2:26 PM PSTLavon returned Messianamaria's call. She will call us back after June 24 when her work schedule comes out to schedule an a ppointment with Amol Triplett. P M PSTTelephone Encounter - Elina Fairbanks Cert MA - 06/17/2015 10:04 AM PSTVm left for Demian requesting a call back if she would like to schedule a f/u visit with Amol to discuss all of her concerns. I asked that she call back if she wishes to schedule. ELINA FAIRBANKS documented in this encounter Plan of Treatment Not on filedocumented as of this encounter Visit Diagnoses Not on filedocumented in this encounter"
--- OUTSIDE RECORDS SUMMARY | ~2020-04-02 | XMS | Encounter Summary ---
Demographics + + + | Address | [address] | | | [place] [address] | + + + | Home Phone [...] Author + + + | Author | [facility] | | | and [place] | + + + | Organization | [facility] | | | [...] [place] | | | | | [address] | | + + + + + | Pratibha Hester | ECON | Unknown | + | + + + + + | Demian Powell | ECON | Unknown | + | + + + + + Care Team Providers + +------+ + | Care Crusher Loader Equipment Operator Name | Role | Phone | [...] + + | 06/20/ | Refill | [facility] | Char Duque | Medication Refill | | 2019 | | PLASTIC SURGERY AND | B, SLIP FEEDER [address] | | | | | DERMATOLOGY [address] | [address] | | | | | [place] | [place] | | | | | [place] | [id number] | | | | | [address] | | | | | | [phone] | | | +--------+--------+ + + + [...]
--- OUTSIDE RECORDS SUMMARY | ~2020-04-02 | XMS | Encounter Summary ---
Demographics + + + | Address | [address] | | | [place] [address] | + + + | Home Phone [...] + + + | Author | [facility] | | | and [place] | + + + | Organization | [facility] | | [...] [place] | | | | | [address] | | + + + + + | Pratibha Hester | ECON | Unknown | + | + + + + + | Demian Powell | ECON | Unknown | + | + + + + + Care Team Providers + +------+ + | Care Help Desk Technician Name | Role | Phone | + +------+ + | Derick Mclaughlin PA-C | PCP | | + +------+ + Reason for Visit +--------+--------+ + | Reason | Onset | Comments | | | Date | | +--------+--------+ + | Other | 10/11/ | Appointment cancellation due to insurance | | | 2012 | | +--------+--------+ + Encounter Details +--------+ + + + + | Date | Type | Department | Care Team | Description | +--------+ + + + + | 10/11/ | Telephone | [facility] | Denilson Jorge | Other (Appointment | | 2012 | | [address] | MD Denice [address] | cancellation due to | | | | [address] | [address] [place] | insurance ) | | | | [place], [place] | [address] | | | | | [address] | [phone] | | | | | [phone] | | | +--------+ + + + [...] Notes Telephone Encounter - Natalie Noonan - 10/11/2012 9:47 AM PSTI spoke with Demian regarding h er appointment today. She is confused about the authorization in place for her office visit . We do have a current auth. She reports now that she doesn't have a ride. I explained to her that we've rescheduled her visit 2 times now and really need to see her in office to go over imaging results as well as to discuss surgery as i finally got an authorization for is as well. She rescheduled to 10/27. Natalie elephone Encounter - El Arais - 10/11/2012 9:19 AM PSTPatient was to come in today 10/11/2012 for a return appointment but her PCP Dr Mclaughlin did not have the insurance authorization the visit at th is time. She would like to cancel and will reschedule when the authorization is completed. Tien gregory. documented in this encounter Plan of Treatment Not on filedocumented as of this encounter Visit Diagnoses Not on filedocumented in this encounter"
--- OUTSIDE RECORDS SUMMARY | ~2020-04-02 | XMS | Encounter Summary ---
Demographics + + + | Address | [address] | | | [place] [address] | + + + | Home Phone [...] Team Providers + +------+ + | Care Devulcanizer Head Name | Role | Phone | + +------+ + | Gracie Lewis PA-C | PCP | | + +------+ + Encounter Details +--------+ + + + + | Date | Type | Department | Care Team | Description | +--------+ + + + + | 04/25/ | Documentati | [facility] | Clinic, Surgery | | | 2019 | on | Center at [facility] [address] | | | | | | [address] [facility] | | | | | | for Health and | | | | | | Healing, [address] | | | | | | [place], [place] | | | | | | [address] | | | | | | [phone] | | | +--------+ + + + [...]
--- OUTSIDE RECORDS SUMMARY | ~2020-04-02 | XMS | Encounter Summary ---
Demographics + + + | Address | [address] | | | [place] [address] | + + + | Home Phone [...] Team Providers + +------+ + | Care Division Plant Engineer Name | Role | Phone | [...] evaluation | | 2019 | cheduled | [facility] at | | | | | | [facility] | | | | | | [address] | | | | | | [facility] | | | | | | and Healing, | | | | | | [address] | | | | | | [place], [place] | | | | | | [address] | | | | | | [phone] | | | +--------+ + + + [...] got a 3rd number to try from [facility] with no success- Have left VM for pt to return call at number s listed in chart- Pt will need to be rescheduled for phone apt when we have a number she is reachable at.- Department advised- Halle Hinojosa <[email or web address]>; Ehsan Cotto <[email or web address]> documented in this encounter Plan of Treatment Not on filedocumented as of this encounter Visit Diagnoses Not on filedocumented in this encounter"
--- OUTSIDE RECORDS SUMMARY | ~2020-04-02 | XMS | Encounter Summary ---
Demographics + + + | Address | [address] | | | [place] [address] | + + + | Home Phone [...] Team Providers + +------+ + | Care Coke Drawer Name | Role | Phone | + +------+ + | Gracie Lewis PA-C | PCP | | + +------+ + Encounter Details +--------+ + + + + | Date | Type | Department | Care Team | Description | +--------+ + + + + | 10/19/ | Outside | [facility] | Angelo Abrams | | | 2019 | Referral | [facility] [address] | [address] | | | | Order | [facility] for | ge[place]te [place]o | | | | | Health and Healing, | [place] [address] | | | | | [facility] [address] | [phone] | | | | | [place], [place] | | | | | | [address] | | | | | | [phone] | | | +--------+ + + + [...]
--- OUTSIDE RECORDS SUMMARY | ~2020-04-02 | XMS | Encounter Summary ---
Demographics + + + | Address | [address] | | | [place] [address] | + + + | Home Phone | | + + + | Preferred Language | Unknown | + + + | Marital Status | Single | + + + | Oriental Orthodox Affiliation | CAT | + + [...] Team Providers + +------+ + | Care Patent Engineer Name | Role | Phone | + +------+ + | Quentin Manriquez | PCP | | + +------+ + Reason for Visit + +--------+ + | Reason | Onset | Comments | | | Date | | + +--------+ + | Question | 06/20/ | | | | 2014 | | [...] | | | | [address] | [place], [place] | | | | | Physician's | [address] | | | | | Pavilion, 2nd floor | [phone] | | | | | [place], [place] | | | | | | [address] | | | | | | [phone] | | | +--------+ + + + [...] this encounter Miscellaneous Notes Telephone Encounter - Ray Lima - 06/24/2015 3:33 PM PSTL[facility]. I let her know that [employer] will not authorize her to re turn. I recommended she follow up with PCP for further treatment/eval and perhaps they can g et something authorized in the future. elephone Encounter - Windy Mclean MD - 06/24/2015 9:02 AM PSTICD-10 for dizziness is R42. If [employer] does not authorize testing we will never find out if she has a mo re specific diagnosis. If [employer] continues to deny vestibular testing, please inform patient that we cannot see her and direct her complaint to [employer]. elephone Encounter - Ray Lima - 06/24/2015 8:43 AM PSTOMAP will not au thorize her to come here for testing with that diagnosis code. Is there a more specific diag nose code in ICD-10 we could try using? They said R22 was too general? elephone Encounter - Windy Mclean MD - 1 08/20/2014 10:11 PM PSTICD-10 for dizziness is [id number] signed by Windy Armas MD at 06/20/2015 10:12 PM PSTTelephone Encounter - ClarenceNoellebeatriz Rodriguez - 06/20/2015 4:42 PM PST Spoke with Nancy at [facility]. She says that we need an ICD-10 Code. Auth was requested initial ly under ICD-9. Dr. Temple - can you provide the appropriate ICD-10 code for the patient's dizziness? Once we have an Updated ICD 10 code, as long as it pairs with the CPT codes for office visit/testin g we should be okay to schedule her. Thanks! elephone Encounter - Ara Baig - 06/20/2015 4:28 PM PSTFormatting of this note might be different from the o riginal. Please advise for Ray if this is urgent or not: Original Msg: Ray Lima Signed Service date: 06/20/2015 1536 I've been working on insurance authorization for this patient for 6+ months with no success (Dr. Temple wanted to order vestibular testing back in December). Patient just called in and said t hat yesterday she lost hearing for a few moments and felt light headed before she then had h er hearing return. Is this an urgent matter that patient needs to be seen for? If so can Dr. Temple let me know so I can request an urgent PA that they might approve more quickly? I kincaid d them just now to see if there's any update on PA but they are only taking voicemails at th is time so I left a voicemail. elephone Encount er - Clarence Ray Rodriguez - 06/20/2015 3:36 PM PSTI've been working on insurance authorization for this patient for 6+ months with no success (Dr. Temple wanted to order vestibular testing back in December). Patient just called in and said that yesterday she lost hearing for a few moments and felt light headed before she then had her hearing return. Is this an urgent matter that patient needs to be seen for? If so can Dr. Temple let me know so I can request an urgent PA th at they might approve more quickly? I called them just now to see if there's any update on P A but they are only taking voicemails at this time so I left a voicemail. Electronically si gned by Ray Lima at 06/20/2015 3:46 PM PSTdocumented in this encounter Plan of Treatment Not on filedocumented as of this encounter Visit Diagnoses Not on filedocumented in this encounter"
--- OUTSIDE RECORDS SUMMARY | ~2020-04-02 | XMS | Encounter Summary ---
Demographics + + + | Address | [address] | | | [place] [address] | + + + | Home Phone [...] [place] | | | | | [address] | | + + + + + | Pratibha Hester | ECON | Unknown | + | + + + + + | Demian Powell | ECON | Unknown | + | + + + + + Care Team Providers + +------+ + | Care Director Of Retail Analytics Name | Role | Phone | + +------+ + | Quentin Manriquez PA-C | MARCK | | + +------+ + Reason for Visit +--------+--------+ + | Reason | Onset | Comments | | | Date | | +--------+--------+ + | Other | 02/14/ | | | | 2014 | | +--------+--------+ + Encounter Details +--------+ + + + + | Date | Type | Department | Care Team | Description | +--------+ + + + + | 02/14/ | Telephone | [facility] | Sascha Mir, | Other | | 2014 | | NEUROSURGERY [address] | DO [address] | | | | | [address] | [address] [place], [place] | | | | | [place] | [id number] | | | | | [address] | | | | | | [phone] | | | +--------+ + + + [...] Encounter - Elina Noonan Cert MA - 02/24/2015 10:11 AM PDTReturned patients jigar lMeghan LVM. ELINA NOONAN elephone Encounjoaquin r - Sepideh Mckay - 02/24/2015 9:01 AM PDTPatient returned call and left message with [employer] to call back. elephone Encounter - Lenka Arango Master of Arts - 02/19/2015 2:10 PM PDT2nd call to patient to return my call regarding Dr. Mir's instructions. LVM for patient to return my call. Lily Mann ele phone Encounter - Lenka Mann Master of Arts - 02/18/2015 8:01 AM PDT Called patient to relay Dr. Mir's instructions. LVM for patient to return my call. Lily Mann ele phone Encounter - Sascha Mir DO - 02/17/2015 4:31 PM PDTRefill done. I'm sorry she's not feeling better. X-rays in January looked great. The clicking is probably coming from her paul ints above her surgery. We'll discuss it at her next visit. I hope she feels better between now and then. Thanks. elephone Willa verma - Elina Noonan Cert MA - 02/17/2015 2:09 PM PDTMedication Refill Request Procedure: L5-S1 Fusion Date of Surgery: 12/12/14 Medication requested: Robaxin 750mg (previously got Flexeril but this made her tongue feel numb) Current intake: Date of last refill: # of tabs left before medication runs out: Where is pain located?: Demian states that when she moves around, she has pain around her lo w back incisions. She feels like her back "clicks" and she can hear the noise. She notices this most when she tries to get out of bed from a laying position. She noticed this noise about 2 months ago and has been having the increase in pain for about 1 month. Send in the mail or call in to preferred pharmacy? She would like this Rx to go to her [facility] pharmacy Next visit on: 03/07/15 at 1130 Please review medication and approve/deny Rx. elephone Melida Potter - 02/17/2015 1:45 PM PDTPatient returned call. Would also like to discu ss taking Flexeril for this. elephone Brittney - Elina Noonan Cert MA - 02/17/2015 8:16 AM PDTVM left for Demian. Requested a return call. ELINA NOONAN elephone Lenka Gonzalez, Master of Arts - 02/14/2015 9:19 AM PDTReturned patient's call to get more information from her. M for her to return my call. Lily Mann Procedure: L5-S1 Fusion Surgery Date: 12/12/14 Next office visit: 07/31/15 TYPE OF PAIN (BURNING/ACHY/CONSTANT/SPORADIC): Tried to roll over and felt like her spine c racked or something. UPPER/LOWER EXTREMITY NUMBNESS/WEAKNESS(NEW ONSET): DOES ANYTHING RELEIVE THE PAIN?: LOSS OF BOWEL OR BLADDER (WHEN?): PATIENT IS MOBILE/WALKING UP TO A MILE: CURRENT INTAKE OF PAIN MEDICATION/MUSCLE RELAXANT: POST OP INCISION APPEARANCE (DRESSING?): DRAINAGE (APPEARANCE/AMOUNT): FEVER/CHILLS (ONSET): ele phone Encounter - Melida Lindquist - 02/14/2015 9:13 AM PDTPatient left message via Aria anthony: "Please call. I had back surgery on 12/12. I tried to roll over and felt like my spin e cracked or something." d ocumented in this encounter Plan of Treatment Not on filedocumented as of this encounter Visit Diagnoses Not on filedocumented in this encounter
--- OUTSIDE RECORDS SUMMARY | ~2020-04-02 | XMS | Encounter Summary ---
Demographics + + + | Address | [address] | | | [place] [address] | + + + | Home Phone [...] + + + | Author | [facility] | + + + | Organization | [facility] | + + + | Address | Unknown | + + + | Phone | Unavailable | + + + Support + + +---------+ + | Name | Relationship | Address | Phone | + + +---------+ + | Alisia Nina | ECON | Unknown | | + + +---------+ + Care Team Providers + +------+ + | Care Multiple Slide Operator Name | Role | Phone | + +------+ + | Gracie Lewis PA-C | PCP | | + +------+ + Encounter Details +--------+ + + + + | Date | Type | Department | Care Team | Description | +--------+ + + + + | 03/07/ | Transcribe | [facility] | Transcribe | | | 2019 | Orders | [facility] [address] | Encounter, Provider, | | | | | [facility] [place] for | [address] | | | | | Health and He[facility], | [place] [address] | | | | | [address] | | | | | | [place], [place] | | | | | | [address] | | | | | | [phone] | | | +--------+ + + + [...] + | MRN: | [facility] | | [id number] Date: 01/09/2020Patient Name: Demian Hooker #: | ENDOSCOPY | | [id number] of : 1970CSN: [id number] Type: | | | AmbulatoryRoom: Endo 6Procedure: | | | ColonoscopyIndications: Abdominal painProviders: | | | LEYDI SHOOK MD (Doctor), SANTO ALONSO, RN | | | (Nurse), DORI DESIR (After School Driver)Referring MD: | | | ANNETTE JORGENSEN-CRequesting Provider: [...] the procedure. The Olympus | | | CF-[id number] Colonoscope #[id number] was introduced | | | through the [...] evaluated | | | using the BBPS ([place] Bowel | | | Preparation Scale) with [...] + | MRN: | [facility] | | [id number] Date: 01/09/2020Patient Name: Demian Hooker #: | ENDOSCOPY | | [id number] of : 1970CSN: [id number] Type: | | | AmbulatoryRoom: Endo 6Procedure: Upper GI | | | endoscopyIndications: Abdominal painProviders: | | | LEYDI SHOOK MD (Doctor), SANTO ALONSO RN | | | (Nurse), DORI DESIR (After School Driver)Referring MD: | | | ANNETTE JORGENSEN-CRequesting Provider: [...] | | | The Olympus [id number]-[id number] Gastroscope #[id number] was | | | introduced through the [...]
--- OUTSIDE RECORDS SUMMARY | ~2020-04-02 | XMS | Encounter Summary ---
Demographics + + + | Address | [address] | | | [place] [address] | + + + | Home Phone [...] [place] | | | | | [address] | | + + + + + | Pratibha Hester | ECON | Unknown | + | + + + + + | Demian Powell | ECON | Unknown | + | + + + + + Care Team Providers + +------+ + | Care Mechanical Systems Engineer Name | Role | Phone | + +------+ + | Gracie Lewis PA-C | PCP | | + +------+ + Encounter Details +--------+ + + + + | Date | Type | Department | Care Team | Description | +--------+ + + + + | 09/26/ | Telephone | [facility] | Denilson Jorge | | | 2012 | | NEUROSURGERY [address] | [facility] | | | | | [address] | [place], [place] | | | | | [place], [place] | [address] | | | | | [address] | [phone] | | | | | [phone] | | | +--------+ + + + [...] this encounter Miscellaneous Notes Telephone Encounter - Alexander Ren - 09/26/2012 2:19 PM PSTPt called and is unsure r ather or not transportation is feasible day of apptment. Will call the day of to inform if w e should r/s apptment. d ocumented in this encounter Plan of Treatment Not on filedocumented as of this encounter Visit Diagnoses Not on filedocumented in this encounter"
--- OUTSIDE RECORDS SUMMARY | ~2020-04-02 | XMS | Clinical Summary ---
Demographics + + + | Address | [address] | | | [place] [address] | + + + | Home Phone [...] Providers + +------+ + | Care Auto Roller Name | Role | Phone | + +------+ + | Gracie Lewis PA-C | PCP | | + +------+ + Source Comments WHITNEY is fully live on both [facility] Ambulatory and [facility] InPatient.[facility] Allergies + + + + + [...] + + | 01/09/ | Telephone | Gastroenterology | Leydi Sandhu, | Telephone follow-up | | 2019 | | | MD | (follow up call) | +--------+ + + + + | 01/08/ | Anesthesia | Gastroenterology | Amy King MD | | | 2019 | Event | | Louise Alvarez RN | | +--------+ + + + + | 01/08/ | Hospital | | Leydi Sandhu, | | | 2019 | Encounter | | | | +--------+ + + + + | 01/08/ | Travel | | | | | 2019 | | | | | +--------+ + + + + | 01/06/ | Documentati | Gastroenterology | Leydi Sandhu, | | | 2019 | on | | MD | | +--------+ + + + + | 01/06/ | Purchase Order Checker | Gastroenterology | Leydi Sandhu, | | | 2019 | | | MD | | +--------+ + + + + | 01/02/ | Telephone-S | Pre-operative | | Pre-operative | | 2019 | cheduled | Medicine | | evaluation | +--------+ + + + + from [...] | + +--------+ + + + | SURGICAL PATHOLOGY | Routin | 01/09/2020 | | Results for this | | | e | 8:44 AM | | procedure are in the | | | | PDT | | results section. | + +--------+ + + + | CAPILLARY BLOOD | Routin | 01/09/2020 | Nausea | Results for this | | GLUCOSE (NO CHG), | e | 7:34 AM | | procedure are in the | | POC | | PDT | | results section. | + +--------+ + + + | COLONOSCOPY | Routin | 01/09/2020 | History of | Results for this | | | e | 7:17 AM | pancreatitis Other | procedure are in the | | | | PDT | chronic pain Morbid | results section. | | | | | obesity (HCC) | | + +--------+ + + + | EGD | Routin | 01/09/2020 | History of | Results for this | | | e | 7:17 AM | pancreatitis Other | procedure are in the | | | | PDT | chronic pain Morbid | results section. | | | | | obesity (HCC) | | + +--------+ + + + | COVID-19 | Urgent | 01/07/2020 | | Results for this | | | | | | procedure are in the | | | | | | results section. | + +--------+ + + + from Last 3 Months Results SURGICAL PATHOLOGY (01/09/2020 8:44 AM PDT) + + + + + + | Component | Value | Ref Range | Performed | Pathologist | | | | | At | Signature | + + + + + + | Clinical | abdominal pain | | [facility] | | | History | | | LABORATORY | | | | | | SERVICES, | | | | | | [facility] | | [facility] + | | | | | | [facility] | | + + + + + + | Final | A. Duodenum, biopsy: | | [facility] | Electronically | | Pathologic | Duodenal mucosa with no | | DEPARTMENT | signed by | | Diagnosis | diagnostic abnormalityB. | | OF | Yoko Baker | | | Stomach, biopsy: | | PATHOLOGY | DO Marcio on | | | Gastric antral mucosa | | | 01/16/2020 at | | | with scattered chronic | | | 3:25 PM | | | inflammation and | | | | | | reactive surface | | | | | | changes Negative for | | | | | | Helicobacter pylori-like | | | | | | organisms by | | | | | | immunostainC. Ascending | | | | | | colon, polyps, | | | | | | polypectomy: Tubular | | | | | | adenoma(s)Case seen | | | | | | by:Aden Rios MD - | | | | | | Surgical Pathology | | | | | | FellowRadha Pena DO | | | | | | | | | | | | | | | | | | PathologistPathology, | | | | | | [facility] | | | | | | University electronic | | | | | | signature indicates that | | | | | | I have personally | | | | | | reviewed all diagnostic | | | | | | slides, the gross and/or | | | | | | microscopic portion of | | | | | | this report and | | | | | | formulated the final | | | | | | diagnosis. | | | | + + + + + + | Gross | Received are 3 specimens | | [facility] | | | Description | in formalin labeled | | DEPARTMENT | | | | with the patient's name | | OF | | | | (initials [facility]) and | | PATHOLOGY | | | | medical record number | | | | | | [id number].A. Duodenum, | | | | | | bxs: Received labeled | | | | | | "DUOD bxs-A" are | | | | | | multiple irregular | | | | | | fragments of love soft | | | | | | tissue aggregating to | | | | | | 1.2 x 0.5 x 0.2 cm. | | | | | | Submitted entirely in | | | | | | A1.B. Gastric, bxs: | | | | | | Received labeled "GAS | | | | | | bxs-B" are 4 fragments | | | | | | of love soft tissue | | | | | | ranging from 0.3 to 0.5 | | | | | | cm in greatest | | | | | | dimension. Submitted | | | | | | entirely in B1.C. | | | | | | Ascending Colon, polyps: | | | | | | Received labeled | | | | | | "ASCCOL polyps-C" are | | | | | | multiple irregular love | | | | | | soft tissue fragments | | | | | | aggregating to 2.5 x 0.7 | | | | | | x 0.2 cm. Filtered and | | | | | | submitted entirely in | | | | | | C1.ARK -- CHH2 | | | | + + + + + + | Ancillary | Analyte specific | | [facility] | | | Information | reagents are used in | | LABORATORY | | | | many laboratory tests | | SERVICES, | | | | necessary for standard | | [facility] | | | | medical care. This test | | HEALTH + | | | | was developed and its | | HEALING | | | | performance | | | | | | characteristics | | | | | | determined by [facility] | | | | | | laboratories. It has not | | | | | | been cleared or | | | | | | approved by the US Food | | | | | | and Drug Administration | | | | | | (FDA). FDA does not | | | | | | require this test to go | | | | | | through premarket FDA | | | | | | review. This test is | | | | | | used for clinical | | | | | | purposes. It should not | | | | | | be regarded as | | | | | | investigational or for | | | | | | research. This | | | | | | laboratory is certified | | | | | | under the Clinical | | | | | | Laboratory Improvement | | | | | | Amendments (CLIA) as | | | | | | qualified to perform | | | | | | high complexity clinical | | | | | | laboratory testing. If | | | | | | immunohistochemical | | | | | | analysis (IHC) was | | | | | | performed concurrently | | | | | | with flow cytometry, the | | | | | | IHC was done to allow | | | | | | assessment of | | | | | | immunoarchitecture, | | | | | | which is not supplied by | | | | | | flow cytometry. Flow | | | | | | cytometry enables better | | | | | | assessment of clonality | | | | | | and antigen aberrancy | | | | | | than IHC. Appropriate | | | | | | positive controls and/or | | | | | | negative controls were | | | | | | used for all stains, | | | | | | including | | | | | | immunohistochemical | | | | | | stains, special stains, | | | | | | and in situ | | | | | | hybridization, and these | | | | | | reacted appropriately. | | | | + + + + + + + + | Specimen | + + | Tissue - Duodenal | | structure (body | | structure) | + + | Tissue - Gastric | + + | Tissue - Ascending | | Colon | + + + + + + + | Performing | Address | City/State/Zipcode | Phone Number | | Organization | | | | + + + + + | [facility] DE[facility] OF | [address] | [place] [address] | | | PATHOLOGY | [address] | | | + + + + + | [facility] | [address] | [place] [address] | | | SERVICES, [facility] | | | | | HE[facility] + HEALING | | | | + + + + + CAPILLARY BLOOD GLUCOSE (NO CHG), POC (01/09/2020 7:34 AM PDT) + +---------+ + + + | Component | Value | Ref Range | Performed | Pathologist | | | | | At | Signature | + +---------+ + + + | BLOOD | 266 (H) | 70 - 99 mg/dL | [facility], | | | GLUCOSE, | | | POINT OF | | | POC | | | CARE TESTS | | + +---------+ + + + + + | Specimen | + + | Blood | + + + + + + + | Performing | Address | City/State/Zipcode | Phone Number | | Organization | | | | + + + + + | [facility] [place] | [address] | [place] [address] | | | OF CARE TESTS | | | | + + + + + COLONOSCOPY (01/09/2020 7:17 AM PDT) + + | Specimen | + + | | + + + + + | Narrative | Performed At | + + + | MRN: | [facility] | | [id number] Date: 01/09/2020Patient Name: Demian Hooker #: | ENDOSCOPY | | [id number] of : 1970CSN: [id number] Type: | | | AmbulatoryRoom: Endo 6Procedure: | | | ColonoscopyIndications: Abdominal painProviders: | | | LEYDI SANDHU MD (Doctor), SANTO ALONSO RN | | | (Nurse), DORI DESIR (Bulk Receiver)Referring MD: | | | ANNETTE JORGENSEN-CRequesting Provider: [...] the procedure. The Olympus | | | CF-[id number] Colonoscope #[id number] was introduced | | | through the [...] evaluated | | | using the BBPS ([place] Bowel | | | Preparation Scale) with [...] - Continue present | | | medications.LEYDI SANDHU MD01/09/2020 8:48:15 AMThis report has been | [...] + | MRN: | [facility] | | [id number] Date: 01/09/2020Patient Name: Demian Hooker #: | ENDOSCOPY | | [id number] of : 1970CSN: [id number] Type: | | | AmbulatoryRoom: Endo 6Procedure: Upper GI | | | endoscopyIndications: Abdominal painProviders: | | | LEYDI SANDHU MD (Doctor), SANTO ALONSO RN | | | (Nurse), DORI DESIR (Bulk Receiver)Referring MD: | | | ANNETTE JORGENSEN-CRequesting Provider: [...] | | | The Olympus GIF-[id number] Gastroscope #[id number] was | | | introduced through the [...] | | | - Proceed to colonoscopyLEYDI SANDHU | | | 01/09/2020 8:45:10 AMThis report has been signed | | | electronically.Number of Addenda: 0Note Initiated On: 01/09/2020 7:17 AM | | | - Multiple gastric polyps. Biopsied. | | | - Normal examined duodenum. Biopsied. | | |Recommendation: - Await pathology results. | | | - Proceed to colonoscopy | | |LEYDI SANDHU MD | | |01/09/2020 8:45:10 AM | | |This report has been signed electronically. | | |Number of Addenda: 0 | | |Note Initiated On: 01/09/2020 7:17 AM | | + + + + +---------+ + + | Performing | Address | City/State[facility] | Phone Number | | Organization | | | | + +---------+ + + | [facility] | | | | + +---------+ + + COVID-19 (01/07/2020) + + + + + [...] from Last 3 Months Insurance + +--------+ +--------+-------+---------+--------+ | Payer | Benefi | Subscriber | Effect | Phone | Address | Type | | | t Plan | ID | keisha | | | | | | / | | Dates | | | | | | Group | | | | | | + +--------+ +--------+-------+---------+--------+ | MANAGER GROUP HOME MEDICAID | MANAGER GROUP HOME | [id number] | 08/08/19 | | | Medica | | | [place] | | 18-Pre | | | id | | | [place] | | sent | | | | + +--------+ +--------+-------+---------+--------+ | [employer] | | [id number] | Effect | | | Agency | [...] | [address] | | | al/Dylon | | 1970 | [phone] | [place] [address] | | | neil | | | 1 (Home) | | + +--------+ +--------+ + + | Demian Nina | Agency | Self | [birth year] | [address] | | | | | 1970 | [phone] | [place] [address] | | | | | | 1 [...]
--- OUTSIDE RECORDS SUMMARY | ~2020-04-02 | XMS | Encounter Summary ---
Demographics + + + | Address | [address] | | | [place] [address] | + + + | Home Phone [...] [place] | | | | | [address] | | + + + + + | Pratibha Hester | ECON | Unknown | + | + + + + + | Demian Powell | ECON | Unknown | + | + + + + + Care Team Providers + +------+ + | Care Treasurer Name | Role | Phone | + +------+ + | Quentin Manriquez PA-C | MARCK | | + +------+ + Encounter Details +--------+ + + + + | Date | Type | Department | Care Team | Description | +--------+ + + + + | 10/30/ | Orders Only | [facility] | Sascha Mir, | Bilateral lumbar | | 2015 | | NEUROSURGERY [address] | DO [address] | radiculopathy | | | | [address] | [address] [place], [place] | (Primary Dx); HIP | | | | [place], [place] | [address] | PAIN, LEFT, CHRONIC; | | | | [address] | | Spondylolisthesis | | | | [phone] | | of lumbar region | | [...] on filedocumented as of this encounter Results ECG 12 lead (12/06/2014 [...] Normal intervals. | | + + + XR Chest PA and Lateral (12/05/2014 12:21 PM PDT) + + | Specimen | + + | | + + + + + | Narrative | Performed At | + + + | XR CHEST PA AND LATERAL. 12/05/2014 12:21 PM HISTORY: pre | [facility] | | operative exam . COMPARISON: None available. FINDINGS: | [facility] | | Heart size and mediastinal contours are within normal limits. The [facility] | | lungs are clear, without pleural [...] + | [facility] | [address] | [place] | [phone] | | [facility] | | [address] | | | - IMAGING | | | | + + + + + Protime INR (12/05/2014 11:56 AM PDT) + [...] | | | Anticoagulation Range: | | [facility] | | | | 2.0 - 3.0High [...] ST. | [address] | [place] | [phone] | | [facility] | | [address] | | | - LABORATORY | | [...] + | [facility] | [address] | [place] | [phone] | | [facility] | | [address] | | | - LABORATORY | | [...] 11 | 7 - 18 mg/dL | [facility] | | | | | | [facility] | | | | | | MEDICAL | | | | | | CENTER - | | | | | | LABORATORY | | + + + + + + | Creatinine | 0.71 | 0.60 - 1.30 | [facility] | | | | | mg/dL | [facility] | | | | | | MEDICAL | | | | | | CENTER - | | | | | | LABORATORY | | + + + + + + | eGFR, | >60Comment: GLOMERULAR | >=60 | [facility] | | | non- | FILTRATION | mL/min/1.73m2 | [facility] | | | [facility] | RATE,ESTIMATED | | MEDICAL | | | | mL/min/1.61a8Nmor than | | CENTER - | | [...] + | [facility] | [address] | [place] | [phone] | | [facility] | | [address] | | | - LABORATORY | | [...] | | Cells | | | [facility] | | | | | | MEDICAL | | | | | | CENTER - | | | | | | LABORATORY | | + + + + + + | Red Blood | 4.62 | 3.70 - 5.20 | [facility] | | | Cells | | M/uL | [facility] | | | | | | MEDICAL | | | | | | CENTER - | | | | | | LABORATORY | | + + + + + + | Hemoglobin | 12.0 | 11.5 - 16.0 | [facility] | | | | | g/dL | [facility] | | | | | | MEDICAL | | | | | | CENTER - | | | | | | LABORATORY | | + + + + + + | Hematocrit | 37.0 | 34.0 - 47.0 % | [facility] | | | | | | [facility] | | | | | | [...] + | [facility] | [address] | [place], [place] | [phone] | | [facility] | | [address] | | | - LABORATORY | | | | + + + + + documented in this encounter Visit Diagnoses + + | Diagnosis | + + | Bilateral lumbar radiculopathy - Primary | + + | HIP PAIN, LEFT, [...]
--- OUTSIDE RECORDS SUMMARY | ~2020-04-02 | XMS | Encounter Summary ---
Demographics + + + | Address | [address] | | | [place] [address] | + + + | Home Phone [...] [place] | | | | | [address] | | + + + + + | Pratibha Hester | ECON | Unknown | + | + + + + + | Demian Powell | ECON | Unknown | + | + + + + + Care Team Providers + +------+ + | Care Water Jet Loom Fixer Name | Role | Phone | + +------+ + | Quentin Manriquez PA-C | MARCK | | + +------+ + Reason for Visit + +--------+ + | Reason | Onset | Comments | | | Date | | + +--------+ + | Medication | 12/17/ | | | Management | 2014 | | + +--------+ + Encounter Details +--------+ + + + + | Date | Type | Department | Care Team | Description | +--------+ + + + + | 12/17/ | Telephone | [facility] | Sascha Mir, | Medication | | 2015 | | NEUROSURGERY [address] | DO [address] | Management | | | | [address] | [address] [place] | | | | | [place] | [id number] | | | | | [address] | | | | | | [phone] | | | +--------+ + + + [...] - Lenka Mann Master of Arts - 12/20/2014 8:27 AM PDTCalled Pharmacy at [phone] to fill Rx of gabapentin 300mg capsule, qty. 90, refill: 11. Spoke with Mariam (Pharmacist). Electronically signed by Lenka Mann Master of Arts at 0 12/20/2014 8:32 AM PDTTelephone Encounter - Elina Fairbanks Cert MA - 12/19/2014 9:46 AM PDT Demian does state she still has burning pains in both legs. Please place order for Neurontin. Thank you, ELINA FAIRBANKS elephone Encounte r Elina Ferrara Cert MA - 12/18/2014 9:03 AM PDTI called and left a today for Demian t o clarify her current leg symptoms. I asked for a return call. ELINA FAIRBANKS elephone EncounAmol Vigil PA - 12/18/2014 8:26 AM PDTI just looked at her prescriptions that s he took while in the hospital. It does appear that she had Neurontin 600 mg 3 times a day w rohan in the hospital. If patient is still having significant leg pain it is possible that s tarting her on Neurontin once again would be helpful for this. However, if patient is doing relatively good with minimal leg pain the Neurontin probably does not need started. Please clarify this patient and I will be happy to start her on Neurontin if necessary. Thank you . elephone Encounter - Elina Fairbanks Cert MA - 12/17/2014 4:41 PM PDTI spoke with Demian. She says that she wa s given nerve pain medication while in the hospital for her legs but wasn't sent to the [facility] with this medication. I didn't see any nerve pain medications in her discharge summary or on her medications list. I let her know that her stomach/heart burn medication, if that is something she regularly takes, she needs to speak with the facility to continue her at h ome medications. Please advise. ELINA FAIRBANKS elephone Encounjoaquin r Karis Montano - 12/17/2014 2:00 PM PDTPatient calls today because not all of her medic ations from when she was admitted here at [facility] were transferred to the facility she is now at. She could not remember which medications these were, but states that they were for the n erves in her legs and for her stomach/heartburn and we prescribed by Dr. Mir. She is admi tted at [facility] in [place]. Please advise.Electronically signed by Karis Nunez at 0 12/17/2014 2:03 PM PDTdocumented in this encounter Plan of Treatment Not on filedocumented as of this encounter Visit Diagnoses Not on filedocumented in this encounter"
--- OUTSIDE RECORDS SUMMARY | ~2020-04-02 | XMS | Encounter Summary ---
Demographics + + + | Address | [address] | | | [place] [address] | + + + | Home Phone [...] + | Author | [facility] | | | and [place] | + + + | Organization | [facility] | | | [...] [place] | | | | | [address] | | + + + + + | Pratibha Hester | ECON | Unknown | + | + + + + + | Demian Powell | ECON | Unknown | + | + + + + + Care Team Providers + +------+ + | Care Top Lift Trimmer Name | Role | Phone | [...] + | 03/17/ | Telephone | [facility] | Sascha Mir, | Other | | 2014 | | NEUROSURG[address] | DO [address] | | | | | [address] | [address] [place], [place] | | | | | [place] | [phone] | | | | | [address] | | | | | | [phone] | | | +--------+ + + + [...] - 03/18/2015 8:15 AM PDTVM left for [place] requesting a return call. ELINA FAIRBANKS elephone [...]
--- OUTSIDE RECORDS SUMMARY | ~2020-04-02 | XMS | Encounter Summary ---
Demographics + + + | Address | [address] | | | [place] [address] | + + + | Home Phone [...] Author + + + | Author | [facility] | | | and [place] | + + + | Organization | [facility] | | | [...] [place] | | | | | [address] | | + + + + + | Pratibha Hester | ECON | Unknown | + | + + + + + | Demian Powell | ECON | Unknown | + | + + + + + Care Team Providers + +------+ + | Care Windows Technical Specialist Name | Role | Phone | [...] NEUROSURGERY [address] | F, [address] | lumbar region | | | | [address] | [place] | L5-S1; Pars defect | | | | [place] | [address] | of lumbar spine | | | | [address] | [phone] | L5-S1; Degenerative | | | | [phone] | | disc disease, lumbar | | | | | | L4-5; Radiculopathy | | | | | | of lumbar region | | | | | | L5-S1; Morbid | | | | | | obesity ([facility]); | | | | | | Sacroiliitis ([facility]); | | | | | | Trochanteric | | | | | | bursitis; Diabetes | | | | | | mellitus ([facility]); | | | | | | Asthma [...] | + + | Sacroiliitis ([facility]) Sacroiliitis, not elsewhere classified | + + | Trochanteric bursitis Enthesopathy of hip region | + + | Diabetes mellitus ([facility]) Type II or unspecified type diabetes mellitus without mention | | of complication, not stated as uncontrolled | + + | Asthma Unspecified asthma | + + documented in this encounter
--- OUTSIDE RECORDS SUMMARY | ~2020-04-02 | XMS | Encounter Summary ---
Demographics + + + | Address | [address] | | | [place] [address] | + + + | Home Phone [...] [place] | | | | | [address] | | + + + + + | Pratibha Hester | ECON | Unknown | + | + + + + + | Demian Powell | ECON | Unknown | + | + + + + + Care Team Providers + +------+ + | Care Microstrategy Reports Developer Name | Role | Phone | + +------+ + | Quentin Manriquez PA-C | MARCK | | + +------+ + Reason for Visit + +--------+ + | Reason | Onset | Comments | | | Date | | + +--------+ + | Medication Problem | 03/31/ | | | | 2014 | | + +--------+ + Encounter Details +--------+ + + + + | Date | Type | Department | Care Team | Description | +--------+ + + + + | 03/31/ | Telephone | [facility] [place] | Sacsha Mir, | Medication Problem | | 2014 | | NEUROSUR[address]ERY [address] | DO [address] | | | | | [address] | [address] [place] | | | | | [place] | [address] | | | | | [address] | | | | | | [phone] | | | +--------+ + + + [...] Encounter - Elina Fairbanks Cert MA - 03/31/2015 9:36 AM PDTA Rx for medrol dospa k was left on the front desk manager in our office with a note attached from the patient stating "henok alvarenga does not want this kind of medication anymore as it makes her too sleepy." Rx is destroye d at this time. ELINA FAIRBANKS documented in this encounter Plan of Treatment Not on filedocumented as of this encounter Visit Diagnoses Not on filedocumented in this encounter
--- OUTSIDE RECORDS SUMMARY | ~2020-04-02 | XMS | Encounter Summary ---
Demographics + + + | Address | [address] | | | [place] [address] | + + + | Home Phone [...] [place] | | | | | [address] | | + + + + + | Pratibha Hester | ECON | Unknown | + | + + + + + | Demian Powell | ECON | Unknown | + | + + + + + Care Team Providers + +------+ + | Care Methods And Procedures Analyst Name | Role | Phone | + +------+ + | Quentin Manriquez PA-C | MARCK | | + +------+ + Encounter Details +--------+ + + + + | Date | Type | Department | Care Team | Description | +--------+ + + + + | 06/04/ | Hospital | [facility] | Sascha Mir, | Spondylolisthesis, | | 2014 | Encounter | MED CTR XRAY [address] | DO [address] | lumbar region; S/P | | | | [place] | [address] | lumbar fusion; | | | | [place] [address] | [id number] | Lumbar radicular | | | | [phone] | | pain | +--------+ + + [...] of the lumbar spine. Posterior | [facility] | | pedicle screw and nayan and [...] | + + + + + | [facility] | [address] | [place] | [phone] | | [facility] | | [address] | | | - IMAGING | | [...]
--- OUTSIDE RECORDS SUMMARY | ~2020-04-02 | XMS | Encounter Summary ---
Demographics + + + | Address | [address] | | | [place] [address] | + + + | Home Phone | | + + + | Preferred Language | Unknown | + + + | Marital Status | Single | + + + | Hindu Affiliation | 1041 | + + + [...] [place] | | | | | [address] | | + + + + + | Pratbiha Hester | ECON | Unknown | + | + + + + + | Demian Powell | ECON | Unknown | + | + + + + + Care Team Providers + +------+ + | Care Individualized Education Plan Aide Name | Role | Phone | + +------+ + | Quentin Manriquez PA-C | MARCK | | + +------+ + Encounter Details +--------+ + + + + | Date | Type | Department | Care Team | Description | +--------+ + + + + | 03/17/ | Hospital | [facility] | Amol Triplett, | Spondylolisthesis of | | 2014 | Encounter | MED CTR XRAY [address] | PA-C [address] | lumbar region | | | | [place] | [address] [place] | L5-S1; S/P lumbar | | | | [place] [address] | [place] [address] | fusion | | | | [phone] | [phone] | | | | | | | [...] L5 through S1 with interbody hardware at [facility] | | L5-S1. Extensive spondylosis is [...] ST. | [address] | [place], [place] | [phone] | | [facility] | | [address] | | | - IMAGING | | | | + + + + + documented in this encounter Visit Diagnoses + + | Diagnosis | + + | Spondylolisthesis of lumbar region L5-S1 Acquired spondylolisthesis | + + | S/P lumbar fusion Arthrodesis status | + + documented in this encounter"
--- OUTSIDE RECORDS SUMMARY | ~2020-04-02 | XMS | Encounter Summary ---
Demographics + + + | Address | [address] | | | [place] [address] | + + + | Home Phone | | + + + | Preferred Language | Unknown | + + + | Marital Status | Single | + + + | Alevism Affiliation | 1041 | + + + [...] [place] | | | | | [address] | | + + + + + | Pratibha Hester | ECON | Unknown | + | + + + + + | Demian Powell | ECON | Unknown | + | + + + + + Care Team Providers + +------+ + | Care Branch Office Administrator Name | Role | Phone | [...] [address] | [address] [place], [place] | (Primary Dx); HIP | | | | [place], [place] | [address] | PAIN, LEFT, CHRONIC; | | | | [address] | | Spondylolisthesis | | | | [phone] | | of lumbar region | | [...] mediastinal contours are within normal limits. The [facility] | | lungs are clear, without pleural [...] + | [facility] | [address] | [place] | [phone] | | [facility] | | [address] | | | - IMAGING | | [...] [address] | [place] | [phone] | | [facility] | | [address] | | | - LABORATORY | | [...] + | [facility] | [address] | [place] | [phone] | | [facility] | | [address] | | | - LABORATORY | | [...] 11 | 7 - 18 mg/dL | [facility] | | | | | | [facility] | | | | | | MEDICAL | | | | | | CENTER - | | | | | | LABORATORY | | + + + + + + | Creatinine | 0.71 | 0.60 - 1.30 | [facility] | | | | | mg/dL | [facility] | | | | | | MEDICAL | | | | | | CENTER - | | | | | | LABORATORY | | + + + + + + | eGFR, | >60Comment: GLOMERULAR | >=60 | [facility] | | | non- | FILTRATION | mL/min/1.73m2 | [facility] | | | [place] | RATE,ESTIMATED | | MEDICAL | | | | mL/min/1.68h9Grax than | | CENTER - | | [...] + | [facility] | [address] | [place] | [phone] | | [facility] | | [address] | | | - LABORATORY | | [...] + | [facility] | [address] | [place], [place] | [phone] | | [facility] | | [address] | | | - LABORATORY | | [...]
--- OUTSIDE RECORDS SUMMARY | ~2020-04-02 | XMS | Encounter Summary ---
Demographics + + + | Address | [address] | | | [place] [address] | + + + | Home Phone [...] Team Providers + +------+ + | Care Supplier Engineer Name | Role | Phone | + +------+ + | Gracie Lewis PA-C | PCP | | + +------+ + Reason for Visit + +--------+ + | Reason | Onset | Comments | | | Date | | + +--------+ + | Medical Records | 07/13/ | | | Review | 2019 | | + +--------+ + Encounter Details +--------+ + + + + | Date | Type | Department | Care Team | Description | +--------+ + + + + | 12/06/ | Abstract | [facility] | Clinic, Surgery | Medical Records | | 2019 | | Center at [facility] [address] | | Review | | | | [address] [place] | | | | | | for Health and | | | | | | Healing, [address] | | | | | | [place], [place] | | | | | | [address] | | | | | | [phone] | | | +--------+ + + + [...]
--- OUTSIDE RECORDS SUMMARY | ~2020-04-02 | XMS | Encounter Summary ---
Demographics + + + | Address | [address] | | | [place] [address] | + + + | Home Phone [...] Team Providers + +------+ + | Care Drying Machine Operator Name | Role | Phone [...]
--- OUTSIDE RECORDS SUMMARY | ~2020-04-02 | XMS | Encounter Summary ---
Demographics + + + | Address | [address] | | | [place] [address] | + + + | Home Phone [...] [place] | | | | | [address] | | + + + + + | Pratibha Hester | ECON | Unknown | + | + + + + + | Demian Powell | ECON | Unknown | + | + + + + + Care Team Providers + +------+ + | Care Shipwright Helper Name | Role | Phone | + +------+ + | Quentin Manriquez PA-C | MARCK | | + +------+ + Encounter Details +--------+ + + + + | Date | Type | Department | Care Team | Description | +--------+ + + + + | 12/05/ | Hospital | [facility] | Sascha Mir, | | | 2014 | Encounter | MED CTR LABORATORY | DO [address] [facility] | | | | | [address] | [address] | | | | | [facility] [place] | [id number] | | | | | [address] | | | | | | [phone] | | | +--------+ + + + [...]
--- OUTSIDE RECORDS SUMMARY | ~2020-04-02 | XMS | Encounter Summary ---
Demographics + + + | Address | [address] | | | [place] [address] | + + + | Home Phone [...] + + | Author | [facility] | | | and [place] | + + + | Organization | [facility] | | | [...] [place] | | | | | [address] | | + + + + + | Pratibha Hester | ECON | Unknown | + | + + + + + | Demian Powell | ECON | Unknown | + | + + + + + Care Team Providers + +------+ + | Care Lpn Cma Name | Role | Phone | + +------+ + | Jannette Boyle PA-C | PCP | | + +------+ + Reason for Visit +--------+--------+ + | Reason | Onset | Comments | | | Date | | +--------+--------+ + | Other | 05/19/ | | | | 2015 | | +--------+--------+ + Encounter Details +--------+ + + + + | Date | Type | Department | Care Team | Description | +--------+ + + + + | 05/19/ | Telephone | [facility] | Sascha Mir, | Other | | 2014 | | NEUROSURGERY [address] | DO [address] | | | | | [address] [facility] [address] | [address] [place], [place] | | | | | [place] | [address] | | | | | [address] | | | | | | [phone] | | | +--------+ + + + [...] Encounter - Elina Fairbanks Cert MA - 05/19/2015 10:18 AM PDTVM Left for Demian tapia uesting a call back. ELINA FAIRBANKS elephone Melida Potter - 05/19/2015 9:47 AM PDTPatient left message via [employer]: "She is still having issues with her back. If you can call her back on Tuesday."Electronically sig chary by Melida Lindquist at 05/19/2015 9:47 AM PDTdocumented in this encounter Plan of Treatment Not on filedocumented as of this encounter Visit Diagnoses Not on filedocumented in this encounter
--- OUTSIDE RECORDS SUMMARY | ~2020-04-02 | XMS | Encounter Summary ---
Demographics + + + | Address | [address] | | | [place] [address] | + + + | Home Phone [...] + | Author | [facility] | + + + | Organization | [facility] | + + + | Address | Unknown | + + + | Phone | Unavailable | + + + Support + + +---------+ + | Name | Relationship | Address | Phone | + + +---------+ + | Alisia Nina | ECON | Unknown | | + + +---------+ + Care Team Providers + +------+ + | Care Contracts Attorney Name | Role | Phone | + [...] + + | 05/08/ | Emergency | [facility] | Omid Moser MD | | | 2008 | | Department [address] | [address] [facility] | | | | | [address] | [place] | | | | | [facility] | [place], [place] | | | | | [place], [place] | [address] | | | | | [address] | [phone] | | | | | [phone] | | | +--------+ + + + [...] be followed carefully by your caregiver or dormitory supervisor. 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 You do not have pain relief from prescribed medications. Your condition is worsening or has changed from what originally brought you in. [facility] Patient Information 2007 [employer]!. documented in this encounter ED Notes Josefina [...] her pcp when she returns home to [place] to discuss any ongoing pain issues if [...]
--- OUTSIDE RECORDS SUMMARY | ~2020-04-02 | XMS | Encounter Summary ---
Demographics + + + | Address | [address] | | | [place] [address] | + + + | Home Phone [...] [place] | | | | | [address] | | + + + + + | Pratibha Hester | ECON | Unknown | + | + + + + + | Demian Powell | ECON | Unknown | + | + + + + + Care Team Providers + +------+ + | Care Serials Librarian Name | Role | Phone | + [...] + + | 07/23/ | Telephone | [facility] [place] | Roger Triplett | Other | | 2014 | | PH[address]SIATRY [address] | TMD [address] | | | | | [address] | [address] [place] | | | | | [place] | [address] | | | | | [address] | | | | | | [phone] | | | +--------+ + + + [...]
--- OUTSIDE RECORDS SUMMARY | ~2020-04-02 | XMS | Encounter Summary ---
Demographics + + + | Address | [address] | | | [place] [address] | + + + | Home Phone [...] Author + + + | Author | [facility] | | | and [place] | + + + | Organization | [facility] | | [...] | + | | | | [place] | | | | | [address] | | + + + + + | Pratibha Hester | ECON | Unknown | + | + + + + + | Demian Powell | ECON | Unknown | + | + + + + + Care Team Providers + +------+ + | Care Home Lending Officer Name | Role | Phone | + +------+ + | Jannette Boyle PA-C | PCP | | + +------+ + Encounter Details +--------+ + + + + | Date | Type | Department | Care Team | Description | +--------+ + + + + | 10/21/ | Abstract | [facility] | Albaro Bojorquez | | | 2016 | | NEUROSURG[address] | [address] | | | | | [address] | [address] | | | | | [place] | [place] | | | | | [address] | [address] | | | | | [phone] | | | +--------+ + + + [...]
--- OUTSIDE RECORDS SUMMARY | ~2020-04-02 | XMS | Encounter Summary ---
Demographics + + + | Address | [address] | | | [place] [address] | + + + | Home Phone | | + + + | Preferred Language | Unknown | + + + | Marital Status | Single | + + + | Moravian Affiliation | 1041 | + + + [...] [place] | | | | | [address] | | + + + + + | Pratibha Hester | ECON | Unknown | + | + + + + + | Demian Powell | ECON | Unknown | + | + + + + + Care Team Providers + +------+ + | Care Window And Siding Craftsman Name | Role | Phone | + +------+ + | Quentin Manriquez PA-C | MARCK | | + +------+ + Encounter Details +--------+ + + + + | Date | Type | Department | Care Team | Description | +--------+ + + + + | 01/15/ | Hospital | [facility] | Sascha Mir, | Status post lumbar | | 2015 | Encounter | MED CTR XRAY [address] | DO [address] | spinal fusion | | | | [place] | [address] | | | | | [place] [address] | [id number] | | | | | [phone] | | | +--------+ + + + [...] RADIOGRAPHS DECEMBER 13 AND SEPTEMBER 26 | Meghan TERI | | FINDINGS: Five non rib-bearing, [...] Procedure Note | + + | Cedric, Antoine Results In - 01/15/2015 11:02 AM PDT [...] + | Performing | Address | City/State[facility] | Phone Number | | Organization | | | | + + + + + | [address] | [address] | [place] | [phone] | | [facility] | | [address] | | | - IMAGING | | | | + + + + + documented in this encounter Visit Diagnoses + + | Diagnosis | + + | Status post lumbar spinal fusion Arthrodesis status | + + documented in this encounter"
--- OUTSIDE RECORDS SUMMARY | ~2020-04-02 | XMS | Encounter Summary ---
Demographics + + + | Address | [address] | | | [place] [address] | + + + | Home Phone [...] Author | [facility] | | | and [place] | + + + | Organization | [facility] | | | [...] [place] | | | | | [address] | | + + + + + | Pratibha Hester | ECON | Unknown | + | + + + + + | Demian Powell | ECON | Unknown | + | + + + + + Care Team Providers + +------+ + | Care Restaurant Line Cook Name | Role | Phone | [...] + + | 05/05/ | Telephone | [facility] | Sascha Mir, | Other | | 2014 | | NEUROSURGERY [address] | DO [address] | | | | | [address] | [address] [place], [place] | | | | | [place] | [id number] | | | | | [address] | | | | | | [phone] | | | +--------+ + + + [...] a call back on his cell phone: [phone] Thank you, ELINA FAIRBANKS documented in this encounter Plan of Treatment Not on filedocumented as of this encounter Visit Diagnoses Not on filedocumented in this encounter"
--- OUTSIDE RECORDS SUMMARY | ~2020-04-02 | XMS | Encounter Summary ---
Demographics + + + | Address | [address] | | | [place] [address] | + + + | Home Phone [...] [place] | | | | | [address] | | + + + + + | Pratibha Hester | ECON | Unknown | + | + + + + + | Demian Powell | ECON | Unknown | + | + + + + + Care Team Providers + +------+ + | Care Stockbroking Dealer Name | Role | Phone | [...] + + | 05/19/ | Telephone | [facility] | Sascha Mir, | Other | | 2014 | | NEUROSURGERY [address] | DO [address] | | | | | [facility] [address] | [address] [place], [place] | | | | | [place] | [address] | | | | | [address] | | | | | | [phone] | | | +--------+ + + + [...] 05/19/2015 9:47 AM PDTPatient left message via utoopia: "She is still having issues with her back. If you can call her back on Tuesday."Electronically sig chary by Melida Lindquist at 05/19/2015 9:47 AM PDTdocumented in this encounter Plan of Treatment Not on filedocumented as of this encounter Visit Diagnoses Not on filedocumented in this encounter
--- OUTSIDE RECORDS SUMMARY | ~2020-04-02 | XMS | Encounter Summary ---
Demographics + + + | Address | [address] | | | [place] [address] | + + + | Home Phone [...] + +------+ + | Care Brake Operator Helper Name | Role | Phone | + +------+ + | Gracie Lewis PA-C | PCP | | + +------+ + Reason for Visit + + + | Reason | Comments | + + + | Bariatric Nutrition | | + + + Intake Referral (Routine) +--------+--------+ + + + + | Status | Reason | Specialty | Diagnoses / | Referred By | Referred To | | | | | Procedures | Contact | Contact | +--------+--------+ + + + + | Closed | | Nutrition | Diagnoses | Milady Lewis Fn | | | | | Morbid | Gracie J, | [facility] | | | | | (severe) | PA-C | [facility] [address] | | | | | obesity due | [place] [address] | | | | | to excess | [place] | [facility] | | | | | calories | Health | Health and | | | | | Obesity, | Center [address] | Healing, | | | | | unspecified | | [address] | | | | | | [place] | [place], [place] | | | | | | Way [address] | [address] | | | | | | [address] | Phone: | | | | | | [place], | [phone] | | | | | | [place] [address] | Fax: | | | | | | Phone: | [phone] | | | | | | [phone] | | | | | | | Fax: | | | | | | | [phone] | | +--------+--------+ + + + + Encounter Details +--------+---------+ + + + | Date | Type | Department | Care Team | Description | +--------+---------+ + + + | 06/27/ | Office | [facility] | Eli Rodas, | Severe obesity (BMI | | 2019 | Visit | Center at [address] | >= 40) (HCC) | | | | [address] | [facility] [place] | (Primary Dx); Type 2 | | | | for Health and | [address] | diabetes mellitus | | | | Healing, [address] | | with other specified | | | | [place], [place] | | complication, with | | | | [address] | | long-term current | | | | [phone] | | 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 (HCC) | [...] of Visit: 1:55 until 2:40 (45 minutes zioo-av-aamr with patient) SUBJECTIVE: Pt comes in alone. Pt shares she usually skips breakfast but snacks a lot in af ternoons and evenings. Pt shares she eats a lot of pizza and drinks a lot of soda. 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 When reviewing the "habits to include prior to surgery" in today's appointment, pt consiste ntly avoided eye contact and looked at the wall. She also frequently looked at her phone (cathryn peared to be texting), and once asked, "How [...] shares she has access gym on the [employer] 24 hr food recall: Pt has a [...] handout (bariatric surgery notebook) with the samy tolentino on: behavior modifications, food items, post-surgery diet [...] 2 pre-surgery classes. 4. Call or send MyChart message to dietitian with any questions. Contact information was provided. Follow up with dietitian 1-2 weeks after surgery at first post-op visit. Eli Rodas, MS, RDN, CSOWM, LD, CDE [facility] Bariatrics [phone] documented in this e ncounter Plan of Treatment Not on filedocumented as of this encounter Procedures + +--------+ + + + | Procedure Name | Priori | Date/Time | Associated Diagnosis | Comments | | | ty | | | | + +--------+ + + + | [place] MNT INITIAL | Routin | 06/27/2019 | [...]
--- OUTSIDE RECORDS SUMMARY | ~2020-04-02 | XMS | Encounter Summary ---
Demographics + + + | Address | [address] | | | [place] [address] | + + + | Home Phone | | + + + | Preferred Language | Unknown | + + + | Marital Status | Single | + + + | Moravian Affiliation | CAT | + + + [...] Team Providers + +------+ + | Care Sisal Picker Name | Role | Phone | + [...] | | | | [address] | [place], [place] | | | | | Physician's | [address] | | | | | Pavilion, 2nd floor | [phone] | | | | | [place], [place] | | | | | | [address] | | | | | | [phone] | | | +--------+ + + + [...] 06/24/2015 3:33 PM PSTL[facility] patient [facility] not [facility] her [...] 08/20/2014 10:11 PM PSTICD-10 for dizziness is [id number] signed by Windy Armas MD at 06/20/2015 10:12 PM PSTTelephone Encounter - ClarenceNoellebeatriz Rodriguez - 06/20/2015 4:42 PM PST Spoke with Nancy at [facility]. She says that we need an ICD-10 [...]
--- OUTSIDE RECORDS SUMMARY | ~2020-04-02 | XMS | Encounter Summary ---
Demographics + + + | Address | [address] | | | [place] [address] | + + + | Home Phone | | + + + | Preferred Language | Unknown | + + + | Marital Status | Single | + + + | Yazidi Affiliation | CAT | + + + [...] Team Providers + +------+ + | Care Digital Forensics Examiner Name | Role | Phone | + +------+ + | Quentin Manriquez | PCP | | + +------+ + Reason for Visit + +--------+ + | Reason | Onset | Comments | | | Date | | + +--------+ + | Prescription | 04/16/ | for ear infection | | | 2013 | | + +--------+ + Encounter Details +--------+ + + + + | Date | Type | Department | Care Team | Description | +--------+ + + + + | 04/16/ | Telephone | Otolaryngology | Windy Mclean | Prescription (for | | 2013 | | Otology Services at | MD Loli [address] | ear infection ) | | | | [address] | [facility] | | | | | [address] | [place], [place] | | | | | Physician's | [address] | | | | | Pavilion, 2nd floor | [phone] | | | | | [place], [place] | | | | | | [address] | | | | | | [phone] | | | +--------+ + + + [...] this encounter Miscellaneous Notes Telephone Encounter - Alfonso Gerber MA - 04/17/2014 8:20 AM PDTCalled patient with no voicemail box available. Will call back later. elephone Encounter - Windy Mclean MD - 04/17/2014 12:41 AM PDTPlease let patient know that I have prescribed topical ciprofloxacin and dexamethason e drops for 2 weeks. She should follow up with me if not better within a week. elephone Encounter - Alfonso Gerber MA - 04/16/2014 9:08 AM PDTDr. Windy, Do you want patient to have drops or come into clinic to see you? elephone Encounter - Gracie Membreno - 04/2014 8:19 AM PDTPatient called in and said she was having ear pain and it felt like ther e was fluid in her ear - she said Dr. Temple told her he could write a prescription for an infe ction - the prescription can be sent to the fax # listed below: [phone] (fax) - [facility] Electronically signed by Gracie Membreno at 04/2014 8:27 AM PDTdocumented in this encounter Plan of Treatment Not on filedocumented as of this encounter Visit Diagnoses Not on filedocumented in this encounter"
--- OUTSIDE RECORDS SUMMARY | ~2020-04-02 | XMS | Encounter Summary ---
Demographics + + + | Address | [address] | | | [place] [address] | + + + | Home Phone | | + + + | Preferred Language | Unknown | + + + | Marital Status | Single | + + + | Christian Affiliation | [id number] | + + + [...] [place] | | | | | [address] | | + + + + + | Pratibha Hester | ECON | Unknown | + | + + + + + | Demian Powell | ECON | Unknown | + | + + + + + Care Team Providers + +------+ + | Care Product Support Technician Name | Role | Phone [...] | | spondylolist | | [place] | | | | | hesis | | Rajiv Vance, | | | | | Acquired | | [place] [id number] | | | | | spondylolist | | Phone: | | | | | hesis | | [phone] | | | | | Procedures | | Fax: | | | | | [place] [facility] | | [phone] | | | | | POST/POSTERO | [...] + + | 12/12/ | Hospital | [facility] | Sascha Mir, | | | 2015 - | Encounter | MED CTR SURGICAL | DO [address] | | | | | [address] | [address] | | | 12/16/ | | [place] [address] | [address] | | | 2014 | | [phone] | | | +--------+ + + + [...] of admission the patient was admitted to [facility] and underwent a L5-S1 fusion . Patient was transferred to PACU and then to the neurosurgical floor. In brief, e hospital stay was uncomplicated, the patient [...] mobility and she was ultimately discharged to [facility]. Medications Reconciled upon Discharge are: Discharge Medications [...] Discharge: Stable Disposition: Patient was discharged to [facility]. Follow-Up Plans: Follow-up with: Dr. Mir's office in 4 weeks Follow-up with primary care physician as needed. Diet: Resume regular diet Activity: Continue to follow guidelines and precautions as previously discussed. Electronically signed by: Amol Triplett, 12/16/2014 7:45 [facility] documented in this encounter Discharge Instructions [...] documented as of this encounter Progress Notes Sucharda, Amol E, PA - 12/16/2014 7:36 AM PDTFormatting of this note might be different f rom the original. [facility] NEUROSURGERY PROGRESS NOTE Pt. Name/Age/: Demian [...] surgery. She is reay to go t [facility] in [place]. No further C/C OBJECTIVE: Patient Vitals [...] past 24 hour(s)). ASSESSMENT:SP L5-S1 fuison Plan:B Brak[facility]. DC to [facility] today. See DC summary. Electronically signed by: Amol Triplett, 12/16/2014 7:36 [facility] Sas[facility] Beck DO - 12/15/2014 9:20 AM PDT Subjective The patient was seen and examined by me today. She complains of of left tingling - improved from numbness, and left leg dysesthesia. Her l egs feel strong. Moderate surgical pain, but tolerable. She would like to go to SNF in [facility] et before discharge home. Objective Filed Vitals: [...] would like to go to SNF in [facility] before discharge home. Objective Filed Vitals: 12/14/14 [...] Range POC Test, Urine Negative POC Specific Dunning Internal QC Acceptable Lot Number [id number] Expiration Date POC GLUCOSE Result Value Ref [...] Sascha Mir DO - 12/12/2014 9:09 [facility] H[facility] AND PHYSICAL UPDATE Pt. Name/Age/: Dmeian Nina 44 y.o. 1970 Date of admission: 12/12/2014 The current H&P was reviewed. The patient was reexamined. Re-evaluation of the patient co nfirms the necessity for the scheduled procedure. No change has occurred in the patient s condition since the H&P was completed less than 30 days ago. Electronically signed by: Sascha Mir, 12/12/2014 9:09 [facility] Sascha Beck DO - 12/12/2014 9:09 AM PDT [address] [facility] [place] [address] FAX: NEUROSURGERY HISTORY AND PHYSICAL EXAMINATION CHIEF [...] has no apparent deficits with short or intermission coordinator memory. CRANIAL NERVES: II: Acuity is intact. [...] this en counter Miscellaneous Notes Plan of Kartik - Yue Wing - 12/16/2014 9:22 AM PDTTalked with Rene @ [facility], she will run the Insurance and call back. I informed her that we do have discharge orders. Electronically signed by: Yue Wing 12/16/2014 9:23 Rene called back, they can accept Demian today. Faxed orders, PASRR, discharge summary and RX to [facility]. Received the "Communication result report" (result OK) Packet is ready. Demian will call her mom for a ride. Received a call from Laura felix, requesting the SNF orders to be faxed to [phone]. Faxed. Received "communication result report" (result ok) NF Transfer - Dash Triplett PA - 12/16/2014 7:43 AM PDTFormatting of this note might be different from the orig inal. SNF FACILITY TRANSFER ORDERS Patient Name: Demian Nina Patient : 1970 Gender: female Date of Admission: 12/12/2014 Date of Discharge: 12/16/2014 Admitting Provider: Sascha Mir DO Discharging Provider: ANNETTE Gutierrez Consultants: none PCP: Quentin Manriquez [facility] transferring to: [facility] Provider after transfer: PCP and [facility] MD CODE STATUS: [x] Attempt CPR [] Do not resuscitate If patient is pulseless and not breathing, RN/PATHOLOGY SPECIALIST may pronounce . Advanced Directives included: [] [...] HPV, QUADRIVALENT, 3 DOSE (ADOL/ADULT) 05/18/2013 INFLUENZA, N3B4-75, ALL FORMULATIONS 08/05/2009 INFLUENZA, HIGH DOSE SEASONAL (ADULT) 05/07/2014 PNEUMOCOCCAL, UNSPECIFIED FORMULATION 07/07/2010 Diet: [x] As tolerated DAIRY MANAGEMENT SPECIALIST may upgrade or downgrade diet as condition Indicates. [x] RN may downgrade diet as indicated. Type: [] Continue current diet of: Diet and Supplements Diet DIET GENERAL Number of Occurrences: Until Specified [] Other: Consistency/Precautions: [] Whole [] Thin Liquids [] Cut-up [] Hawthorn Thick [] Advanced Chopped [] Honey Thickened [] Chopped [] Advanced Ground [] 1:1 feedings [] Ground/Pureed [] Other: Tube Feedings: [] PEG [] GT [] JT [] NGT [] Formula type: (Congregational Care Pastor may change/substitute if indicated). [] Continuous Rate: [...] [x] OT Evaluation & Management for: [] DAIRY MANAGEMENT SPECIALIST Evaluation &Management for: [] Other: Wound/Skin Care: [...] 6 hours as needed. aka: VALIUM By: Amol Del Valle Sucharda Quant: 100 tablet docusate sodium 100 MG capsule Take 100 mg by mouth Twice daily as needed for Constipation. aka: COLACE By: Amol Banksarda Quant: 100 capsule oxyCODONE-acetaminophen 10-325 mg per [...] 8 hours as needed for Nausea. aka: DARIUSZ ODT SINGULAIR 10 mg tablet Generic drug: montelukast Take 10 mg by mouth nightly. VITAMIN D PO Take 1 tablet by mouth Daily. Discontinued Medications aspirin 81 mg EC tablet HYDROcodone-acetaminophen 10-325 mg per tablet aka: NORCO ibuprofen 600 MG tablet aka: BALWINDER SERRA I, ANNETTE Gutierrez, certify that post hospital [facility] care is medically nece ssary on a continuing basis for any of the conditions for which he/she received care during this hospitalization. Check one: [x] Skilled [] Intermediate Additional Orders/Instructions: Physician's signature: Amol Triplett PA-C_12/16/2014 7:43 [facility] USE ONLY: [] Admitting orders [...] later today t o a rehab in [facility]. Electronically signed by: Giana Rausch RRT 12/16/2014 [...] Practice Guideline (CPG) Outcome: Progressing lan of Kartik - Helene Victoria RN - 12/15/2014 7:00 PM PDTProblem: General Plan of Care (Adult, Obstetrics) Goal: Care Plan Shift Summary & Review . Outcome: Progressing Alert and oriented. Started on decadron today. Up in room independently with B brace. Band- aids to back changed after shower today. Valium and robaxin given for muscle spasms. Percoce t given for pain. lan of Kartik - Rekha Chapman RRT - 12/15/2014 4:39 PM PDTProblem: General [...] needed. Continue to monitor patient. lan of Kartik - Nuvia Dove PT - 12/15/2014 11:45 AM PDTPhysical Therapy [...] the same. Pt plans to go to [facility] for a few days if possible prior to returning home. Rates pain as 8-9/10. Objective: Treatment Provided: Reviewed precautions and body mechanics and LSO. Functional mobility mary beth mckinney. Patient Status/Goals: Reflects last filed data of [...] with family/caregiver after short term rehab at [facility] Post discharge physical therapy recommendation: outpatient therapy (when ordered by Dr. Dr alcocer) Plan for next treatment: 1P;KH;check on pt prior to planned d/c to [facility] tomorrow . Electronically signed by: Nuvia Dove PT, 12/15/2014 15:18 lan of Care - Yue Tinsley - 12/15/2014 10:35 AM PDTDischarge Planning: Demian would like to go to [facility] for a short stay prior to going home. She signed the "SNF options form" Placed the signed form in the ghost chart. Faxed referral to [facility]. Received the "Communication result Report" (Result ok) place d the fax in the ghost chart. Will need prior auth from her Insurance company prior to discharge. Demian will be ready for discharge tomorrow. Her mother will transport her at discharge. Electronically signed by: Yue Wing 12/15/2014 10:40 Terrie called from [facility], said everything looks good, they will run her Insurance in the AM lan of Kartik - Roseline Vidal, EXCEPTIONAL STUDENT EDUCATION AIDE - 12/15/2014 1:49 AM PDTProblem: General Plan [...] Sup 12-14 Stairs Assessment: Pt with improved base brander on L but still with continued weakness, [...] per pt request Electronically signed by: Nuvia Dove PT, 12/14/2014 17:02 lan of Care - Nuvia Pichardo, PT - 12/14/2014 3:50 PM PDTMissed Visit Patient Information Patient Name: Demian Nina Date of : 1970 Age: 44 y.o. The patient was unable to be seen for today's scheduled visit due to migraine and not feeli ng well enough to get up. Plan: Re-attempt PT later this p.m. per pt request Electronically signed by: Nuvia Dove PT, 12/14/2014 15:50 lan of Kartik - Adriana Holcomb, OT - 12/15/19 15 2:54 PM PDTProblem: General Plan of Care (Adult, Obstetrics) Goal: Care Plan Shift Summary & Review . Occupational Therapy Daily Treatment Note Patient Information Patient Name: Deiman Nina Date of : 1970 Age: 44 [...] 6 Extra Time, 6 Raised Toilet Seat Compton FIM Self Care Groomin Grooming Score Evidence: [...] likely being d/c home to to SNF [place]. Occupational Therapy Discharge Recommendations are: Recommended discharge [...] any further questions. Electronically signed by: Adriana Holcomb OT, 12/14/2014 14:52 lan of [facility] Darek Paulino RRT - 12/14/2014 3:52 AM [...] partially read through Handbook. Pain complaint of 9-10/10 not consistent w/ facial expression, body language, or functional mobility. Supine-sit w/ SBA, verbal cuing. Donned underwear w/o use of torpedo worker but may benefit to increase ease. Sit-s tand w/ SBA & light CGA to parts puller hips. Tolerated standing @ sink to brush [...] Recommendations: shower chair, tub bench, sock aide, torpedo worker, front wheeled walk er Planned Interventions:Planned Therapy [...] bedroom/bathroom on 2nd floor. Pt also has yasmin ds for DME. As she did not attend Spine Class would benefit from 2-3 addt'l OT visits to co nfirm needs, ensure safety, and maximize safety/independence. Plan for next treatment: 1P,JM.U/LB dressing,determine AE/DME needs,bathtub transfer Electronically signed by: Eloisa Iqbal OT, 12/13/2014 15:15 lan of Care - Jazlyn Kelly RRT - 12/13/2014 3:10 PM PDTProblem: General Plan of Care (Adult, Obstetrics) Goal: Care Plan Shift Summary & Review . Outcome: Progressing Pt meets goals with IS. Working with PT. Has albuterol MDI at home for PRN use, order rec eived from for same. Given this morning with improvement. lan of [facility] Nuvia espinosa, PT - 12/13/2014 10:28 AM PDTPhysical Therapy [...] as yesterday. Reports "tailbone" p ain as 04/17. States the pain also goes down her [...] mobility with pt Electronically signed by: Nuvia Dove, PT, 12/13/2014 10:59 lan of Kartik - [...] respiratory care throughout the night. lan of Kartik - Liz Ramirez RN - 12/12/2014 11:04 PM PDTProblem: General Plan of Care (Adult, Obstetr ics) Goal: Care Plan Shift Summary & Review . Outcome: Progressing Pt arrived to room 315 about 1500 and was not able to stand and transfer from rney to bed s/p lumbar fusion grade B brace. Pt report tingling to left hand and mild numbness and tin gling to left leg and foot. Personnel Security Specialist strong, right foot stong, but left foot [...] control. lan of Care - P Rekha mendez, EXCEPTIONAL STUDENT EDUCATION AIDE - 12/12/2014 9:30 PM PDTProblem: General Plan of Care (Adult, Obstetric s) Goal: Care Plan Shift Summary & Review . Outcome: Progressing BS clear. Patient achieving 2500 of Predicted Level (mL)(Incentive Spirometer): 2300. SpO 2: 95 % on 3liters/minute nasal cannula. Will continue to monitor. p Note - Sascha Mir DO - 12/12/2014 6:49 PM PDTDATE: 12/12/2014 SURGEON: Sascha Mir DO. SENIOR SITE MANAGER: None. PREOPERATIVE DIAGNOSES 1. Spondylolisthesis, L5-S1. 2. [...] 26 mm Ti-coated Capstone PEEK cage from [employer] was chosen. It was filled with Infuse [...] Note Demian Nina 44 y.o. female 1970 [id number] Proc. Date 12/12/2014 Preop Dx Acquired spondylolisthesis Postop Dx same Procedure Procedure(s):L5-S1 Transforaminal Lumbar Interbody Fusion Anesthesia General Surgeon Surgeon(s) and Role: * Sascha Mir DO - Primary Senior Reliability Engineer NA EBL 100 mL Findings Findings consistent [...] by: Sascha Mir DO 12/12/2014 18:48 [facility] lan of Rekha Walsh RRT - 12/12/2014 6:12 PM PDTProblem: General Plan of Care (Adult, Obstetrics) Goal: Care Plan Shift Summary & Review . Outcome: Progressing Patient's oxygen was titrated to 3l/m nc. Breath sounds clear anterior. Works well with i nsp. Continue to monitor patient. lan of Nuvia Saunders, PT - 12/12/2014 5:20 PM PDTFormatting of [...] Sit To Supine, Rehab Eval Level Of Compton: Sit/Supine: moderate assist (50% patients effort) Physical Assist/Nonphysical Assist: Sit/Supine: 1 person assist, verbal cues Assistive Device: Sit/Supine: bed rails Goal Bed Mobility Sit to Supine Sit to Supine STG Status: New STG Bed Mobility Sit to Supine: independent Bed Mobility Skill: Supine To Sit, Rehab Eval Level Of Compton: Supine/Sit: moderate assist (50% patients effort) Physical Assist/Nonphysical Assist: Supine/Sit: 1 person assist, verbal cues Assistive Device: Supine/Sit: bed rails Goal Bed Mobility Supine to Sit Supine to Sit STG Status: New STG Bed Mobility Supine to Sit : independent Transfers Transfer Skill: Sit To Stand, Rehab Eval Level Of Compton: Sit/Stand: minimum assist (75% patients effort) Physical Assist/Nonphysical Assist: Sit/Stand: 1 person assist, verbal cues (from raised be d) Assistive Device For Transfer: Sit/Stand: 2 wheeled walker Goal Transfers Sit to Stand Sit to Stand STG Status: New STG Transfers Sit to Stand : modified independent Gait Gait Skills, PT Eval Level Of Compton: Gait: contact guard assist (75% patient effort) [...] DM, pelvic inflammatory disease, and hx of TN . Rehab Potential: good, to achieve stated [...] | of hardware for posterior fusion from L3jklponl S1 with interbody hardware at L5-S1. | [...] [address] | [place] | [phone] | | [facility] | | [address] | | | - LABORATORY | | [...] Specific | | | | | | Dunning, | | | | | | POC | | | | | + + + + + + | Internal QC | Acceptable | | | | + + + + + + | Lot Number | [id number] | | | | + + + [...] ST. | [address] | [place], [place] | [phone] | | [facility] | | [address] | | | - LABORATORY | | [...] ST. | [address] | [place], [place] | | | [facility] | | [address] | | | - BLOOD BANK | [...] | | | | | | | [facility] 12/12/14 at 1500, For 2 doses, | [...] | | | | | | | [facility] 12/12/14 at 1300, For 3 doses, | [...] PDT | | | | | Starting [facility] 12/12/14 at 1433, | | | | [...] PDT | | | | | Starting [facility] 12/12/14 at 1433, | | | | [...]
--- OUTSIDE RECORDS SUMMARY | ~2020-04-02 | XMS | Clinical Summary ---
Demographics + + + | Address | [address] | | | [place] [address] | + + + | Home Phone [...] Author | [facility] | | | and [place] | + + + | Organization | [facility] | | | [...] [place] | | | | | [address] | | + + + + + | Pratibha Hester | ECON | Unknown | + | + + + + + | Demian Powell | ECON | Unknown | + | + + + + + Care Team Providers + +------+ + | Care Cutter Helper Name | Role | Phone | [...] + + | 02/04/ | Office | Sleep Medicine | Jeanna Wheeler | Sleep apnea, | | 2019 | Visit | | ROBERTO Bowman | unspecified type | | | | | | (Primary Dx); | | | | | | Snoring | +--------+---------+ + + + from Last [...] | + + + + | INFLUENZA, [id number], | 08/05/2009 | | | UNSPECIFIED | [...] + + + | Coronary artery | | [place] | CABG | | disease | | | | + + + + + | Diabetes | | [place]ez | | + + + + + | Other (see comment) | | [place]ez | passed in her sleep unsure of cause | + + + + + | Renal failure | | [place]ez | | + + + + + | Seizures | Sister | mercedez | | + + + + + | Stroke | Sister | mercedez | | + [...] | OSTEOTECH - | | 10/03/ | [id number] | | [id number]: Qty: 1 | | | OSTT | | 2020 | | | on 12/12/2014 by Clarke, | | | | | | /[id number] | | Sascha Armendariz DO at [facility] | | | | | | 2-039 | | [facility] | | | | | | /38-30 | | | | | | | | 12 | + +------+--------+ +--------+--------+--------+ | Graft Infuse Bone Kit Xxs - | | | [facility] | | / | [id number] | | [id number]: Qty: 1 on | | | DANEK - DIV | | 2016 | 0 / | | 12/12/2014 by Sascha Mir | | | [employer] | | | /[id number] | | DO Kala at [facility] | | | - SFDK | | | [id number] | | [facility] | | | | | | | + +------+--------+ +--------+--------+--------+ | SpacerImplanted: Qty: 1 on | | [employer]awk Weapon System Operator | [employer] - | | 10/04/ | [id number] | | 12/12/2014 by Sascha Mir | | ior: | MEDT | | 2022 | 9 / | | DO Kala at [facility] | | Spine | | | | /[id number] | | [facility] | | Lumbar | | | | 520 | + +------+--------+ +--------+--------+--------+ | Screw Amanda Solera 6.5x50mm - | | [employer] Weapon System Operator | [facility] | | | [id number] | | [id number]: Qty: 1 on | | ior: | DANEK - DIV | | | [id number] | | 12/12/2014 by Sascha Mir | | Spine | [employer] | | | / / | | DO Kala at [facility] | | Lumbar | - SFDK | | | | | [facility] | | | | | | | + +------+--------+ +--------+--------+--------+ | Screw Amanda Solera 6.5x45mm - | | [employer] Weapon System Operator | [facility] | | | [id number] | | [id number]: Qty: 1 on | | ior: | DANEK - DIV | | | [id number] | | 12/12/2014 by Sascha Mir | | Spine | [employer] | | | / / | | DO Kala at [facility] | | Lumbar | - [facility] | | | | | [facility] | | | | | | | + +------+--------+ +--------+--------+--------+ | Screw Mas G5 Slra 7.5x40 Cn - | | [employer] Weapon System Operator | [facility] | | | [id number] | | [id number]: Qty: 1 | | ior: | DANEK - DIV | | | 15149 | | on 12/12/2014 by Clarke, | | Spine | [employer] | | | / / | | Sascha Armendariz DO at [facility] | | Lumbar | - [facility] | | | | | [facility] | | | | | | | + +------+--------+ +--------+--------+--------+ | Screw Amanda 8.5x40mm - | | [employer] Weapon System Operator | [employer] - | | | [id number] | | [id number]: Qty: 1 on | | ior: | MEDT | | | [id number] | | 12/12/2014 by Sascha Mir | | Spine | | | | / / | | DO Kala at [facility] | | Lumbar | | | | | | [facility] | | | | | | | + +------+--------+ +--------+--------+--------+ | Set Scrw Ns G5 Brk Off Ti | | [employer] Weapon System Operator | [facility] | | | [id number] | | 4.75 - [id number]: | | ior: | DANEK - DIV | | | 0 / / | | Qty: 4 on 12/12/2014 by | | Spine | [employer] | | | | | Sascha Mir DO at [facility] | | Lumbar | - [facility] | | | | | [facility] | | | [facility] | | | | | | | + +------+--------+ +--------+--------+--------+ | Imp Spn Francis Ti Sext Ti 5.5x45 | | [employer] Weapon System Operator | [facility] | | | [id number] | | - [id number]: Qty: 2 | | ior: | DANEK - DIV | | | [id number] / | | on 12/12/2014 by Clarke, | | Spine | [employer] | | | / | | Sascha Armendariz DO at [facility] | | Lumbar | - [facility] | | | | | [facility] | | | | | | [...] | Cannulated Screw Cd Horizon | | [employer] Weapon System Operator | [employer] - | | | [id number] | | SoleraExplanted: Qty: 1 on | | ior: | MEDT | | | [id number] | | 12/12/2014 at [facility] | | Spine | | | | / / | | [facility] | | Lumbar | | [...] | [employer] | MODA | [id number] | 12/10/19 | [phone] | | Medica | | MEDICAID HMO | HEALTH | | 20-Pre | 1 | | id | | | MDCD | | sent | | | | | | [place]MO [place] | | | | | | + +--------+ +--------+ +---------+--------+ | [facility] | IHS | [id number] | 05/17/ | | | Indemn | | SERVICE | YELLOW | | 2011-P | | | ity | | | HAWK | | resent | | | | + +--------+ +--------+ +---------+--------+ | [employer] | MODA | [id number] | | [phone] | | Medica | | MEDICAID HMO | HEALTH | | 019-Pr | 1 | | id | | | MDCD | | esent | | | | | | [place]MO [place] | | | | | | + +--------+ +--------+ +---------+--------+ | [facility] | IHS | [id number] | 03/08/20 | | | Indemn | [...] | | al/Fam | | 1970 | [phone] | [place], [place] | | | neil | | | 1 (Home) | [address] | + +--------+ +--------+ + + | Demian Nina | Person | Self | [birth year] | [address] | | | al/Fam | | 1970 | [phone] | [place], [place] | | | neil | | | 1 (Home) | [address] | + +--------+ +--------+ + + Advance Directives + + + + + | Type | Date Recorded | Patient | Explanation | | | | Point Of Sale Associate | | + + + + + | Power of | | | | | Hairspring Adjuster | | | | + + + [...]
--- OUTSIDE RECORDS SUMMARY | ~2020-04-02 | XMS | Encounter Summary ---
Demographics + + + | Address | [address] | | | [place] [address] | + + + | Home Phone [...] [place] | | | | | [address] | | + + + + + | Pratibha Hester | ECON | Unknown | + | + + + + + | Demian Powell | ECON | Unknown | + | + + + + + Care Team Providers + +------+ + | Care Cellulose Insulation Helper Name | Role | Phone | + +------+ + | Gracie Lewis PA-C | PCP | | + +------+ + Encounter Details +--------+ + + + + | Date | Type | Department | Care Team | Description | +--------+ + + + + | 09/26/ | Telephone | [facility] | Denilson Jorge | | | 2012 | | NEUROSURGERY [address] | [facility] [address] | | | | | [address] | [address] [place], [place] | | | | | [place], [place] | [address] | | | | | [address] | [phone] | | | | | [phone] | | | +--------+ + + + [...]
--- OUTSIDE RECORDS SUMMARY | ~2020-04-02 | XMS | Encounter Summary ---
Demographics + + + | Address | [address] | | | [place] [address] | + + + | Home Phone | | + + + | Preferred Language | Unknown | + + + | Marital Status | Single | + + + | Synagogue Affiliation | 1041 | + + + [...] [place] | | | | | [address] | | + + + + + | Pratibha Hester | ECON | Unknown | + | + + + + + | Demian Powell | ECON | Unknown | + | + + + + + Care Team Providers + +------+ + | Care Retort Pre Cooker Name | Role | Phone | + [...] | | | | Displacement | PA-C [address] | [address] | | | | | of lumbar | [place] | [address] | | | | | intervertebr | WAY | [place] | | | | | al disc | [place], | [address] Phone: | | | | | without | [place] [address] | [phone] | | | | | myelopathy | Phone: | Fax: | | | | | Procedures | [phone] | [phone] | | | | | [place] OFFICE | Fax: | | | | | | CONSULTATION | [phone] | | | | | | NEW/ESTAB [...] Sascha Mir, | Spondylolisthesis of | | 2014 | Visit | NEUROSURGERY [address] | DO [address] | lumbar region | | | | [address] | [address] [place], [place] | (Primary Dx); Lumbar | | | | [place], [place] | [address] | stenosis; Lumbar | | | | [address] | | radicular pain; | | | | [phone] | | Midline low back | | [...] m the original. Sascha Mir DO [address] [facility] [address] [place] [address] FAX: NEUROSURGERY HISTORY AND PHYSICAL EXAMINATION CHIEF [...] Intrinsics 5 5 Ulnar Intrinsics 5 5 Greeting Card Editor Strength 5 5 Hip Flexion 5 5 [...] today, and I greatly appreciate the r yvonneal. The patient has unstable spondylolisthesis L5-S1 with [...]
--- OUTSIDE RECORDS SUMMARY | ~2020-04-02 | XMS | Encounter Summary ---
Demographics + + + | Address | [address] | | | [place] [address] | + + + | Home Phone [...] [place] | | | | | [address] | | + + + + + | Pratibha Hester | ECON | Unknown | + | + + + + + | Demian Powell | ECON | Unknown | + | + + + + + Care Team Providers + +------+ + | Care Endoscopy Nurse Name | Role | Phone | + +------+ + | Quentin Manriquez PA-C | MARCK | | + +------+ + Reason for Visit +--------+--------+ + | Reason | Onset | Comments | | | Date | | +--------+--------+ + | Other | 01/02/ | called patient to inform her that I mailed her | | | 2014 | prescriptions certified mail today. | +--------+--------+ + Encounter Details +--------+ + + + + | Date | Type | Department | Care Team | Description | +--------+ + + + + | 01/02/ | Telephone | [facility] | Sascha Mir, | Other (called | | 2015 | | NEUROSURGERY [address] | DO [address] | patient to inform | | | | [address] | [address] [place], [place] | her that I mailed | | | | [place] | [address] | her prescriptions | | | | [address] | | certified mail | | | | [phone] | | today.) | +--------+ + + [...] Telephone Encounter - Lenka Mann Master of LUMOback - 2015 9:25 AM PDTCalled patient to inform her I mailed her prescriptions. Patient verbalized Jono wesley signed by Lenka Mann Master of LUMOback at 2015 9:25 AM PDTdocumented in this encounter Plan of Treatment Not on filedocumented as of this encounter Visit Diagnoses Not on filedocumented in this encounter"
--- OUTSIDE RECORDS SUMMARY | ~2020-04-02 | XMS | Encounter Summary ---
Demographics + + + | Address | [address] | | | [place] [address] | + + + | Home Phone [...] Team Providers + +------+ + | Care Knapsack Sprayer Name | Role | Phone | + [...] | | | | [address] | [place] [address] | | | | | Physician's | [phone] | | | | | [place], [address] | | | | | | [place], [place] | | | | | | [address] | | | | | | [phone] | | | +--------+ + + + [...] this encounter Progress Notes Other, Faculty - 04/25/2014 5:25 PM PDTElectronically signed by Faculty Other at 5:25 PM Rianna Grullon - 04/01/2014 9:02 [...] to moderate mixed hearing loss. A speech cashier receptionist threshold was obtain ed at 40 dB HL and is in good agreement with responses to pure-tone stimuli. Word recogniti on ability was 80% when words were presented at a comfortable level of 65 dB HL. Left Ear: Normal hearing sensitivity from 250-4000 Hz, sloping to a mild hearing loss at 6000 Hz, rising to normal hearing at 8000 Hz. A speech cashier receptionist threshold was obtained at 20 dB HL and is in good agreement with responses to pure-tone stimuli. Word recognition judy shakila was 84% when words were presented at a comfortable level of 50 dB HL. Please see SmartForm audiogram for [...] | + +--------+ + + + | VT TYMPANOMETRY | Routin | 04/16/2014 | Mixed hearing | | | | e | 3:45 PM | loss, unilateral | | | | | PDT | | | + +--------+ + + + | VT COMPREHENSIVE | Routin | 04/16/2014 | Mixed [...]
--- OUTSIDE RECORDS SUMMARY | ~2020-04-02 | XMS | Encounter Summary ---
Demographics + + + | Address | [address] | | | [place] [address] | + + + | Home Phone [...] | Located Within [facility] | | | and [place] | + + + | Organization | Located Within [facility] | | [...] [place] | | | | | [address] | | + + + + + | Pratibha Hester | ECON | Unknown | + | + + + + + | Demian Powell | ECON | Unknown | + | + + + + + Care Team Providers + +------+ + | Care Preassembler And Inspector Name | Role | Phone | [...] | | [place] | [place] [address] | | | | | [address] | [phone] | | | | | [phone] | | | +--------+--------+ + + + [...]
--- OUTSIDE RECORDS SUMMARY | ~2020-04-02 | XMS | Encounter Summary ---
Demographics + + + | Address | [address] | | | [place] [address] | + + + | Home Phone [...] [place] | | | | | [address] | | + + + + + | Pratibha Hester | ECON | Unknown | + | + + + + + | Demian Powell | ECON | Unknown | + | + + + + + Care Team Providers + +------+ + | Care Tool Designer Name | Role | Phone | + +------+ + | Quentin Manriquez PA-C | MARCK | | + +------+ + Encounter Details +--------+ + + + + | Date | Type | Department | Care Team | Description | +--------+ + + + + | 12/05/ | Hospital | [facility] | Sascha Mir, | Bilateral lumbar | | 2015 | Encounter | MED CTR | DO [address] | radiculopathy; HIP | | | | [facility] | [address] [place], [place] | PAIN, LEFT, CHRONIC; | | | | [address] | [address] | Spondylolisthesis | | | | [place] [address] | | of lumbar region | | | | [phone] | | L5-S1; Pars defect | | [...] documented as of this encounter Procedure Notes Smiht Toth MD - 12/06/2014 7:49 AM PDTAssociated [...]
--- OUTSIDE RECORDS SUMMARY | ~2020-04-02 | XMS | Encounter Summary ---
Demographics + + + | Address | [address] | | | [place] [address] | + + + | Home Phone | | + + + | Preferred Language | Unknown | + + + | Marital Status | Single | + + + | Religion Affiliation | 1041 | + + + [...] [place] | | | | | [address] | | + + + + + | Pratibha Hester | ECON | Unknown | + | + + + + + | Demian Powell | ECON | Unknown | + | + + + + + Care Team Providers + +------+ + | Care Headrig Sawyer Name | Role | Phone | [...] [address] | | | | | | [place], [place] | | | | | | [address] | | | | | | [phone] | | | +--------+ + + + [...]
--- OUTSIDE RECORDS SUMMARY | ~2020-04-02 | XMS | Encounter Summary ---
Demographics + + + | Address | [address] | | | [place] [address] | + + + | Home Phone [...] [place] | | | | | [address] | | + + + + + | Pratibha Hester | ECON | Unknown | + | + + + + + | Demian Powell | ECON | Unknown | + | + + + + + Care Team Providers + +------+ + | Care Tests Superintendent Name | Role | Phone | + +------+ + | Quentin Manriquez PA-C | MARCK | | + +------+ + Encounter Details +--------+ + + + + | Date | Type | Department | Care Team | Description | +--------+ + + + + | 12/03/ | Orders Only | [facility] | Sascha Mir, | Status post lumbar | | 2015 | | NEUROSURGERY [address] | DO [address] | spinal fusion | | | | [address] | [address] [place], [place] | (Primary Dx) | | | | [place], [place] | [id number] | | | | | [address] | | | | | | [phone] | | | +--------+ + + + [...] RADIOGRAPHS DECEMBER 13 AND SEPTEMBER 26 | [facility] | | FINDINGS: Five non rib-bearing, lumbar [...] | + + + + + | [facility] [address] | [address] | [place] | [phone] | | [facility] | | [address] | | | - IMAGING | | | | + + + + + documented in this encounter Visit Diagnoses + + | Diagnosis | + + | Status post lumbar spinal fusion - Primary Arthrodesis status | + + documented in this encounter"
--- OUTSIDE RECORDS SUMMARY | ~2020-04-02 | XMS | Encounter Summary ---
Demographics + + + | Address | [address] | | | [place] [address] | + + + | Home Phone [...] Author + + + | Author | [facility] | + + + | Organization | [facility] | + + + | Address | Unknown | + + + | Phone | Unavailable | + + + Support + + +---------+ + | Name | Relationship | Address | Phone | + + +---------+ + | Alisia Nina | ECON | Unknown | | + + +---------+ + Care Team Providers + +------+ + | Care Turntable Engineer Name | Role | Phone | [...] | | | | | ear | [facility], | | | | | Dizziness | Rd | 10th Floor | | | | | Procedures | [place], [place] | [place], [place] | | | | | [place] | [address] | [address] | | | | | [place]EN[place] | Phone: | Phone: | | | | | DISEASE WO | [phone] | [phone] | | | | | [place] | Fax: | Fax: | | | | | SCAN,ORBIT/S | [phone] | [phone] | | | | | CORY/POST | [...] | | | | | ear | [facility] | [facility], | | | | | Dizziness | Rd | 10th Floor | | | | | Procedures | [place], [place] | [place] | | | | | [place] | [address] | [address] | | | | | BENIGN | Phone: | Phone: | | | | | DISEASE WO | [phone] | [phone] | | | | | [place] [address] | Fax: | Fax: | | | | | SCAN,ORBIT/S | [phone] | [phone] | | | | | CORY/POST | [...] | 2014 | Encounter | [facility] | | | | | | [address] | | | | | | [place] | | | | | | [address] | | | | | | [place], [place] | | | | | | [address] | | | | | | [phone] | | | +--------+ + + + [...] | | + +---------+ + + | [facility] DEPARTMENT OF | | | | | RADIOLOGY | | | | + +---------+ + + documented in this encounter Visit Diagnoses + + | Diagnosis | + + | Conductive hearing loss in right ear Conductive hearing loss, unilateral | + + | Dizziness Dizziness and giddiness | + + documented in this encounter"
--- OUTSIDE RECORDS SUMMARY | ~2020-04-02 | XMS | Encounter Summary ---
Demographics + + + | Address | [address] | | | [place] [address] | + + + | Home Phone [...] [place] | | | | | [address] | | + + + + + | Pratibha Hester | ECON | Unknown | + | + + + + + | Demian Powell | ECON | Unknown | + | + + + + + Care Team Providers + +------+ + | Care Mri Specialist Name | Role | Phone | [...] [address] | | | | | [place], [place] | [place] [address] | | | | | [address] | [phone] | | | | | [phone] | | | +--------+--------+ + + + [...]
--- OUTSIDE RECORDS SUMMARY | ~2020-04-02 | XMS | Encounter Summary ---
Demographics + + + | Address | [address] | | | [place] [address] | + + + | Home Phone [...] + + + | Author | [facility] | + + + | Organization | [facility] | + + + | Address | Unknown | + + + | Phone | Unavailable | + + + Support + + +---------+ + | Name | Relationship | Address | Phone | + + +---------+ + | Alisia Nina | ECON | Unknown | | + + +---------+ + Care Team Providers + +------+ + | Care Gold Leaf Gilder Name | Role | Phone | + [...] | | | media, not | | [place], [place] | | | | | specified as | | [address] | | | | | acute or | | Phone: | | | | | chronic | | [phone] | | | | | Conductive | | Fax: | | | | | hearing | | [phone] | | | | | loss, | [...] | 12/04/ | Office | Otolaryngology | Windy Mclean | ETD (eustachian tube | | 2015 | Visit | Otology Services at | MD Loli [address] | dysfunction), | | | | [address] | bilateral (Primary | | | | [address] | [place], [place] | Dx); Conductive | | | | Physician's | [address] | hearing loss in | | | | Pavilion, 2nd floor | [phone] | right ear; Dizziness | | | | [place], [place] | | | | | | [address] | | | | | | [phone] | | | +--------+---------+ + + + [...] me after testing. Windy Rodriguez MD PhD Machine Plug Shaper Otology, Neurotology & Skull Base Surgery documented in this encounter Plan of Treatment Not on filedocumented as of this encounter Procedures + +--------+ + + + | Procedure Name | Priori | Date/Time | Associated Diagnosis | Comments | | | ty | | | | + +--------+ + + + | [place] EAR MICROSCOPY | Routin | 12/05/2014 | [...]
--- OUTSIDE RECORDS SUMMARY | ~2020-04-02 | XMS | Encounter Summary ---
Demographics + + + | Address | [address] | | | [place] [address] | + + + | Home Phone [...] Team Providers + +------+ + | Care Winch Driver Name | Role | Phone | + [...] | | | | | | | [place] | | | | | | | COLONOSCOPY, | | | | | | | FLEX, | | | | | | | W/BIOPSY [place] | | | | | | | UPPER GI | | | | | | | ENDOSCOPY,BI | | | | | | | OPSY [place] | | | | | | | ANES UPR LWR | | | | | | | GI NDSC PX | | | +--------+--------+ + + + + Encounter Details +--------+ + + + + | Date | Type | Department | Care Team | Description | +--------+ + + + + | 01/08/ | Anesthesia | [facility] | Amy King MD | | | 2019 | Event | [facility] [address] | [address] | | | | | [facility] | [place], | | | | | [facility] and He[facility], | [place] [address] | | | | | [address] | [phone] | | | | | [place], [place] | | | | | | [address] | [address] [place] | | | | | [phone] | W, BUSINESS TRAINER [address] | | | | | | [address] | | | | | | [place], [place] | | | | | | [address] | | | | | | [phone] | | | | | | | [...] King MD - 01/09/2020 10:02 AM PDT [place] [id number] Vitals Value Taken Time BP 118/75 01/09/2020 [...] be different from the original. Demian Montoyarera [id number] Allergies Allergen Reactions Procainamide Hcl Anaphylaxis Allergic [...] colonoscopy as directed by [facility]. Discard rem aining half jug. Indications: Bowel Evacuation TERBINAFINE HCL 250 MG TABLET Take 250 mg by mouth once daily. VICTOZA 2-LAUREANO 0.6 MG/0.1 ML (18 MG/3 ML) SUBCUTANEOUS PEN INJECTOR WIXELA INHUB 250 MCG-50 MCG/DOSE POWDER FOR INHALATION inhale 1 puff by mouth twice a day No results found for: RATE, ATRIALRATE, NV, QRS, QT, QTC, PAXIS, RAXIS, TAXIS, EKGDX [...] Within Defined Limits except as noted below Urology/Sales Store Checker: Within Defined Limits except as noted below [...]
--- OUTSIDE RECORDS SUMMARY | ~2020-04-02 | XMS | Encounter Summary ---
Demographics + + + | Address | [address] | | | [place] [address] | + + + | Home Phone [...] [place] | | | | | [address] | | + + + + + | Pratibha Hester | ECON | Unknown | + | + + + + + | Demian Powell | ECON | Unknown | + | + + + + + Care Team Providers + +------+ + | Care Lettuce Trimmer Name | Role | Phone | [...] AVE | | | | | [address] [facility] [address] | [address] [place], [place] | | | | | [place] | [id number] | | | | | [address] | | | | | | [phone] | | | +--------+ + + + [...] PDTI called and let Crystal know at [facility] that Demian does not need an MRI [...] to Iodine. Please advise. ELINA NOONAN [facility] - 05/12/2015 3:45 PM PDTMicefrain from [facility] imaging department called earnest leigh that she was told by the patients PCP office that they are waiting on us before Demian can complete the MRI, please advise. Crystal would like a call back [phone] signed by Madiha Schilling at 12/2014 3:47 PM PDTTelephone Encounter - Lois Brown RN - 05/06/2015 3:06 PM PDTDr. [facility] Mir the MRI from March was sent to [facility]. Dr. Mejía "spoke with a neuro rad and they are recommending an MRI with gadolinium as the next step. The CT myelo gram was not done." Dr. Mejía's number is [phone] if there are any questions about this . Please advise elepho ne Encounter - Elina Noonan Cert MA - 05/06/2015 10:43 AM PDTDanielle called today from [facility] stating that Dr. Mir spoke with Dr. [...]
--- OUTSIDE RECORDS SUMMARY | ~2020-04-02 | XMS | Encounter Summary ---
Demographics + + + | Address | [address] | | | [place] [address] | + + + | Home Phone | | + + + | Preferred Language | Unknown | + + + | Marital Status | Single | + + + | Jew Affiliation | CAT | + + + [...] Team Providers + +------+ + | Care Psych Therapist Name | Role | Phone | [...] | | | | [address] | [facility] [place] | | | | | Physician's | [address] | | | | | [place], [facility] floor | [phone] | | | | | [place], [place] | | | | | | [address] | | | | | | [phone] | | | +--------+ + + + [...] Notes Telephone Encounter - Ray Lima - 05/14/2015 9:49 AM PDTFYI - I have been working [employer] e November to get auth for vestibular testing with no luck so far. I am waiting to hear back on a current auth request but am guessing I will need to resubmit again since we are now on IC D-10 codes. Once authed I will call pt to schedule but it is taking a long time since pt's i nsurance has changed. eleph one Encounter - Alfonso Gerber MA - 05/13/2015 3:11 PM PDTYes, patient should still hav e testing done and then follow up with Dr. Temple. Please call to schedule.Electronically sign ed by Alfonso Gerber MA at 05/13/2015 3:12 PM PDTTelephone Encounter - Rianna Anderson - 1 3:04 PM PDTLavobeatriz called in and wants to know if Dr. Temple wants her to do anymore t esting? Last chart not from 12/05 stated she should do vestibular testing. Does she still nee d to do this? Please advise. Thanks! Roseann Veliz documented in this e ncounter Plan of Treatment Not on filedocumented as of this encounter Visit Diagnoses Not on filedocumented in this encounter"
--- OUTSIDE RECORDS SUMMARY | ~2020-04-02 | XMS | Encounter Summary ---
Demographics + + + | Address | [address] | | | [place] [address] | + + + | Home Phone [...] [place] | | | | | [address] | | + + + + + | Pratibha Hester | ECON | Unknown | + | + + + + + | Demian Powell | ECON | Unknown | + | + + + + + Care Team Providers + +------+ + | Care Enamel Pulverizer Name | Role | Phone | + [...] + + | 07/23/ | Telephone | [facility] DANIEL | Roger Triplett | Other | | 2014 | | PHYSIATRY [address] | [address] | | | | | [address] | [address] [place] | | | | | [place] | [address] | | | | | [address] | | | | | | [phone] | | | +--------+ + + + [...]
--- OUTSIDE RECORDS SUMMARY | ~2020-04-02 | XMS | Clinical Summary ---
Demographics + + + | Address | [address] | | | [place] [address] | + + + | Home Phone [...] Team Providers + +------+ + | Care Elementary Substitute Teacher Name | Role | Phone | + +------+ + | Gracie Lewis PA-C | PCP | | + +------+ + Source Comments WHITNEY is fully live on both [facility] and [facility] InPatient.[facility] Allergies + + + + + [...] + + + + | 01/06/ | Dynamometer Mechanic | Gastroenterology | Leydi Sandhu, | | [...] PathologistPathology, | | | | | | [facility] | | | | | | University [...] number | | | | | | [id number].A. Duodenum, | | | | | | [...] | + + + + + | [facility] | [address] | [place] [address] | | | PATHOLOGY | [address] | | | + + + + + | [facility] | [address] | [place] [address] | | | SERVICES, [place] [facility] | | | | | HEALTH [...] 70 - 99 mg/dL | [facility], | | | GLUCOSE, | [...] | + + + + + | [facility] | [address] [facility] | [place] [address] | | | OF CARE TESTS | | | | + + + + + COLONOSCOPY (01/09/2020 7:17 AM PDT) + + | Specimen | + + | | + + + + + | Narrative | Performed At | + + + | MRN: | [facility] | | [id number] Date: 01/09/2020Patient Name: Demian Hooker #: | ENDOSCOPY | | [id number] of : 1970CSN: [id number] Type: | | | AmbulatoryRoom: Endo 6Procedure: | | | ColonoscopyIndications: Abdominal painProviders: | | | LEYDI SANDHU MD (Doctor), SANTO ALONSO RN | | | (Nurse), DORI DESIR (Leather Carver)Referring MD: | | | ANNETTE JORGENSEN-CRequesting Provider: [...] the procedure. The Olympus | | | [id number] Colonoscope #[id number] was introduced | | | through the [...] evaluated | | | using the BBPS (Keene Bowel | | | Preparation Scale) with [...] + | MRN: | [facility] | | [id number] Date: 01/09/2020Patient Name: Demian Hooker #: | ENDOSCOPY | | [id number] of : 1970CSN: [id number] Type: | | | AmbulatoryRoom: Endo 6Procedure: Upper GI | | | endoscopyIndications: Abdominal painProviders: | | | LEYDI SANDHU MD (Doctor), SANTO ALONSO RN | | | (Nurse), DORI DESIR (Leather Carver)Referring MD: | | | ANNETTE JORGENSEN-CRequesting Provider: [...] | | | The Olympus [id number] Gastroscope #[id number] was | | | introduced through the [...] + + | Performing | Address | City/State/[facility] | Phone Number | | [...] | | | + +--------+ +--------+-------+---------+--------+ | [employer]LECT[employer]IPMENT MECHAN[employer] MEDICAID | ELECTRIC BRAIN WAVE EQUIPMENT MECHANIC | [id number] | 08/08/19 | | | Medica | | | [place] | | 18-Pre | | | id | | | [place] | | sent | | | | + +--------+ +--------+-------+---------+--------+ | [facility] | | [id number] | Effect | | | Agency | [...] | 1970 | [phone] | [place] [address] | | | neil | | | 1 (Home) | | + +--------+ +--------+ + + | Demian Nina | Agency | Self | [birth year] | | [address] | | | | | 1970 | [phone] | [place] [address] | | | | | | 1 [...]
--- OUTSIDE RECORDS SUMMARY | ~2020-04-02 | XMS | Encounter Summary ---
Demographics + + + | Address | [address] | | | [place] [address] | + + + | Home Phone [...] Author + + + | Author | [facility] | | | and [place] | + + + | Organization | [facility] | | | [...] [place] | | | | | [address] | | + + + + + | Pratibha Hester | ECON | Unknown | + | + + + + + | Demian Powell | ECON | Unknown | + | + + + + + Care Team Providers + +------+ + | Care Hide Cleaner Name | Role | Phone | [...] | | | - CARDIAC | PA-C [address] | 1869 | | | | | CLEARANCE | KAREN ANDINO | CHRISTOS CARRERA | | | | | | [place] | [place] | | | | | | [place] [address] | [place], [place] | | | | | | Phone: | [phone] Phone: | | | | | | [phone] | [phone] | | | | | | Fax: | Fax: | | | | | | [phone] | [phone] | +--------+--------+ + + + + Encounter Details +--------+---------+ + + + | Date | Type | Department | Care Team | Description | +--------+---------+ + + + | 09/25/ | Office | [facility] | Rudy Osullivan, | Atypical chest pain | | 2020 | Visit | CARDIOLOGY [place] | MD [address] | (Primary Dx); | | | | [address] [facility] | ADAN Denice BACK, | Essential | | | | [address] | [place] [address] | hypertension; | | | | [place], [place] | [phone] | Preoperative | | | | [address] | | cardiovascular | | | | [phone] | | examination; | | | | [...] recently on an emergency room visit at [facility] in August. See no reason why [...] h/o an AAA. -- Echo (05/31/18 - [facility]): EF 60-65%, normal RV size, function, mild MR -- Coronary CT Calcium Score (06/12/14 - [facility]): -0-, low risk -- Exercise Cardiolite Stress Test (04/12/14 - [facility]): exercised 6:38, 7 METS, max HR 173, [...] Laterality Date ADENOIDECTOMY SECTION, LOW TRANSVERSE 1995 [facility]; [place] SECTION, LOW TRANSVERSE 2005 [facility]; [place] CHOLECYSTECTOMY LUMBAR LAMINECTOMY N/A 12/12/2014 Procedure: L5-S1 Transforaminal Lumbar Interbody Fusion; Surgeon: Sascha Mri DO; Lo cation: [facility] MAIN OR SHOULDER [...] file Gets together: Not on file Attends episcopalian service: Not on file Active member of [...] 324 mg by mouth daily (with breakfast). Vdlvucu-Tkhdtegovgec-Kjhjkjomo (TRI-RAJ) 0.01-4-0.05 % CREA APPLY TO CLEAN [...] at | | | | | | [facility])Confirmed by Shi | | | | | | Rudy ANAND ([id number]) on | | | | | | [...]
--- OUTSIDE RECORDS SUMMARY | ~2020-04-02 | XMS | Encounter Summary ---
Demographics + + + | Address | [address] | | | [place] [address] | + + + | Home Phone [...] [place] | | | | | [address] | | + + + + + | Pratibha Hester | ECON | Unknown | + | + + + + + | Demian Powell | ECON | Unknown | + | + + + + + Care Team Providers + +------+ + | Care Warp Tying Machine Tender Name | Role | Phone [...] [address] | [address] [place] | | | | | [place] | [address] | | | | | [address] | | | | | | [phone] | | | +--------+--------+ + + + [...] is disconnected. I will send her a ActionBase message. Rx called into [facility]. Dolores d estrcharles. ELINA FAIRBANKS elephone Encounte [...]
--- OUTSIDE RECORDS SUMMARY | ~2020-04-02 | XMS | Encounter Summary ---
Demographics + + + | Address | [address] | | | [place] [address] | + + + | Home Phone [...] Author + + + | Author | [facility] | | | and [place] | + + + | Organization | [facility] | | | [...] [place] | | | | | [address] | | + + + + + | Pratibha Hester | ECON | Unknown | + | + + + + + | Demian Powell | ECON | Unknown | + | + + + + + Care Team Providers + +------+ + | Care Graduate Fellow Name | Role | Phone | + [...] | 03/04/ | Telephone | [facility] | Sascha Mir, | Other (medication | | 2014 | | NEUROSURGERY [address] | DO [address] | refill questions) | | | | [address] | [address] [place], [place] | | | | | [place] | [id number] | | | | | [address] | | | | | | [phone] | | | +--------+ + + + [...] - 03/05/2015 11:38 AM PDTSpnelson Gallegos at [facility] and the patient origionally went to a retail pharmacy for the Zofran 4mg Rxand it was limited by insurance for only 10 tablets.. [facility] pharmacy was inform ed and they dispensed the full amount of #30 that we origionally requested. Lily Mann ele phone Encounter - Lenka Mann Master of Arts - 03/04/2015 10:39 AM PDTPatient call ed today and she picked up her Zofran 4mg. at [facility] and they gave her only 10 tablets. We wrote Rx for #30. I called [facility] pharmacy, and left a VM for a return call to find out wha t is going on. Lily Mann docu mented in this encounter Plan of Treatment Not on filedocumented as of this encounter Visit Diagnoses Not on filedocumented in this encounter"
--- OUTSIDE RECORDS SUMMARY | ~2020-04-02 | XMS | Encounter Summary ---
Demographics + + + | Address | [address] | | | [place] [address] | + + + | Home Phone [...] [place] | | | | | [address] | | + + + + + | Pratibha Hester | ECON | Unknown | + | + + + + + | Demian Powell | ECON | Unknown | + | + + + + + Care Team Providers + +------+ + | Care Telegraphic Typewriter Mechanic Name | Role | Phone | [...] [address] | [address] [place], [place] | intervertebral disc | | | | [place], [place] | [address] | without myelopathy | | | | [address] | | (Primary Dx) | | | | [phone] | | | +--------+ + + + [...]
--- OUTSIDE RECORDS SUMMARY | ~2020-04-02 | XMS | Encounter Summary ---
Demographics + + + | Address | [address] | | | [place] [address] | + + + | Home Phone [...] | Uche Turcios | ECON | [address] | + | | | | [place] | | | | | [address] | | + + + + + | Pratibha Hester | ECON | Unknown | + | + + + + + | Ana Maria Powell | ECON | Unknown | + | + + + + + Care Team Providers + +------+ + | Care Lasting Floorworker Name | Role | Phone | + [...] Procedures | MD [address] | | | | | MRI Lumbar | [address] | [address] [place] | | | | | Spine wo | [place], | [place] | | | | | Contrast | [place] [address] | [address] | | | | | | Phone: | Phone: | | | | | | [phone] | | | | | | | [phone] Fax: | Fax: | | | | | | | | | | | | | [phone] | | +--------+--------+ + + + + Encounter Details +--------+ + + + + | Date | Type | Department | Care Team | Description | +--------+ + + + + | 09/08/ | Hospital | [facility] | Denilson Jorge | Back pain | | 2012 - | Encounter | MED CTR XRAY [address] | F, [address] | | | | | [address] | [address] [place] | | | 09/10/ | | [place] [address] | [address] | | | 2012 | | [phone] | [phone] | | | | | | | [...] At | + + + | [facility] | [place] | | Department [address] [facility], [place] | [facility] | | [ rep ct [address]] [ rep [facility] | | st zip] Signed | - IMAGING | | | | | Patient Name: ANA MARIA TURCIOS Physician: | | | LAUREN. : 1970 Age: 42 Sex: F Unit #: [id number] | | | Exam Date: 09/08/12 Location[place] [facility] [place] | | | Report #: [id number] Page: | | | %(RAD)RES..mtdd.print.filter("pg") of %(RAD) | | | RES..mtdd.print.filter("tpg") | | | | | | Accession Number: [id number] | | | UNENHANCED MRI LUMBAR SPINE, [...] Transcribed | | | Date/Time: 09/08/2012 12:56 Sash Sticker: | | | <<Signature on File>> | | | Jayden Wyatt | | | MD Rush09/09/12 4015 <Electronically signed by Jayden Beverly MD> | | | Jayden Beverly MD 09/08/12 1234 Sash Sticker: | | | Webmedx Yhyzvajklloqw63/01/13 1256 Denilson Jorge, | | | MD | | + + + + + + + + | Performing | Address | City[facility]State[facility] | Phone Number | | Organization | | | | + + + + + | [address] | [address] | [place] | [phone] | | [facility] | | [address] | | | - IMAGING | | | | + + + + + documented in this encounter Visit Diagnoses + + | Diagnosis | + + | Back pain Backache, unspecified | + + documented in this encounter
--- OUTSIDE RECORDS SUMMARY | ~2020-04-02 | XMS | Encounter Summary ---
Demographics + + + | Address | [address] | | | [place] [address] | + + + | Home Phone | | + + + | Preferred Language | Unknown | + + + | Marital Status | Single | + + + | Adventism Affiliation | [id number] | + + + [...] [place] | | | | | [address] | | + + + + + | Pratibha Hester | ECON | Unknown | + | + + + + + | Demian Powell | ECON | Unknown | + | + + + + + Care Team Providers + +------+ + | Care Enterprise Analyst Name | Role | Phone | + +------+ + | Gracie Lewis PA-C | PCP | | + +------+ + Reason for Visit + +--------+ + | Reason | Onset | Comments | | | Date | | + +--------+ + | Follow-up | 12/18/ | | | | 2020 | | + +--------+ + Encounter Details +--------+ + + + + | Date | Type | Department | Care Team | Description | +--------+ + + + + | 12/18/ | Telephone | [facility] | Jasiel Loo | Follow-up | | 2020 | | SLEEP DISORDER [address] | MD Michael [address] | | | | | [address] [place] | [address] [place] | | | | | [place] [address] | [place] [address] | | | | | [phone] | [phone] | | | | | | | [...] this encounter Miscellaneous Notes Telephone Encounter - Cris Watson Medical Assistant - 01/17/2020 10:24 AM PDTCalled the pa tient and left a message to call us back. This is my third attempt to reach the patient. I w ill send this note to Dr. LooElectronically signed by Caterina Garcia at 06/2020 10:25 AM PDTTelephone Encounter - Cris Watson Medical Assistant - 2020 2:54 PM PDTCalled the patient and left a message to call us back. I will try back in a few days. elephone E ncounter - Cris Watson Medical Assistant - 12/19/2019 12:55 PM [facility]12/[address] Loo wants the patient rescheduled with GEORGE Mujica. I left a message to call us back. I will try back in a few days. Electronic ally signed by Caterina Garcia Assistant at 12/19/2019 12:57 PM PDTdocumented in this en counter Plan of Treatment Not on filedocumented as of this encounter Visit Diagnoses Not on filedocumented in this encounter"
--- OUTSIDE RECORDS SUMMARY | ~2020-04-02 | XMS | Encounter Summary ---
Demographics + + + | Address | [address] | | | [place] [address] | + + + | Home Phone [...] Located Within [facility] | | | and [place] | + [...] [place] | | | | | [address] | | + + + + + | Pratibha Hester | ECON | Unknown | + | + + + + + | Demian Powell | ECON | Unknown | + | + + + + + Care Team Providers + +------+ + | Care Welding Teacher Name | Role | Phone | [...] + + | 12/05/ | Office | [facility] | Amol Triplett, | Degenerative disc | | 2014 | Visit | NEUROSURGERY [address] | PA-C [address] | disease, lumbar L4-5 | | | | [address] | [address] [place] | (Primary Dx); Facet | | | | [place], [place] | [place] [address] | arthropathy, | | | | [address] | [phone] | lumbosacral; | | | | [phone] | | Foraminal stenosis | | | [...] rom the original. ANNETTE Gutierrez [address] [facility] [address] [place], [place] [id number] FAX: NEUROSURGERY HISTORY AND PHYSICAL EXAMINATION CHIEF [...] Sig Dispense Refill [facility]EROL [facility]; 1-2 puffs every 3-4 hours [...] has no apparent deficits with short or senior living memory. CRANIAL NERVES: II: Acuity is intact. [...] Diagnosis Date Morbid obesity (HCC) Diabetes mellitus ([facility]) Multiple allergies Chronic back pain Gastric reflux [...]
--- OUTSIDE RECORDS SUMMARY | ~2020-04-02 | XMS | Encounter Summary ---
Demographics + + + | Address | [address] | | | [place] [address] | + + + | Home Phone [...] [place] | | | | | [address] | | + + + + + | Pratibha Hester | ECON | Unknown | + | + + + + + | Demian Powell | ECON | Unknown | + | + + + + + Care Team Providers + +------+ + | Care Registered Nurse Teacher Name | Role | Phone | [...] + | 12/09/ | Telephone | [facility] | Sascha Mir, | Other (Fax) | | 2014 | | NEUROSURGERY [address] | DO [address] | | | | | [address] [facility] [address] | [address] [place], [place] | | | | | [place] | [id number] | | | | | [address] | | | | | | [phone] | | | +--------+ + + + [...] 12/09/2014 12:00 PM PDTPatient left message via TDX: "please call re: a fax for my surgery." I called her and left a voicemail requ esting a phone call back to get further information. documented in this encounter Plan of Treatment Not on filedocumented as of this encounter Visit Diagnoses Not on filedocumented in this encounter
--- OUTSIDE RECORDS SUMMARY | ~2020-04-02 | XMS | Encounter Summary ---
Demographics + + + | Address | [address] | | | [place] [address] | + + + | Home Phone [...] [place] | | | | | [address] | | + + + + + | Pratibha Hester | ECON | Unknown | + | + + + + + | Demian Powell | ECON | Unknown | + | + + + + + Care Team Providers + +------+ + | Care Bolting Machine Operator Name | Role | Phone [...] [address] [place] | | | | | [place], [place] | [place] [address] | | | | | [address] | [phone] | | | | | [phone] | | | +--------+--------+ + + + [...]
--- OUTSIDE RECORDS SUMMARY | ~2020-04-02 | XMS | Clinical Summary ---
Demographics + + + | Address | [address] | | | [place] [address] | + + + | Home Phone [...] [place] | | | | | [address] | | + + + + + | Pratibha Hester | ECON | Unknown | + | + + + + + | Demian Powell | ECON | Unknown | + | + + + + + Care Team Providers + +------+ + | Care Irrigation Installation Specialist Name | Role | Phone | [...] | + + + + | INFLUENZA, [id number], | 08/05/2009 | | | UNSPECIFIED | [...] | OSTEOTECH - | | 10/03/ | [id number] | | [id number]: Qty: 1 | | | OSTT | | 2020 | | | on 12/12/2014 by [place], | | | | | | /[id number] | | Sascha Armendariz DO at [facility] | | | | | | 2-039 | | [facility] | | | | | | /38-30 | | | | | | | | 12 | + +------+--------+ +--------+--------+--------+ | Graft Infuse Bone Kit Xxs - | | | [facility] | | / | [id number] | | [id number]: Qty: 1 on | | | DANEK - DIV | | 2016 | 0 / | | 12/12/2014 by Sascha Mir | | | [employer] | | | /[id number] | | DO [place]ala at [facility] | | | - SFDK | | | 07AAI | | [facility] | | | | | | | + +------+--------+ +--------+--------+--------+ | SpacerImplanted: Qty: 1 on | | Casualty Claims Supervisor | [employer] - | | 10/04/ | [id number] | | 12/12/2014 by Sascha Mir | | ior: | MEDT | | 2022 | 9 / | | DO [place]ala at [facility] | | Spine | | | | /[id number] | | [facility] | | Lumbar | | | | 520 | + +------+--------+ +--------+--------+--------+ | Screw Amanda Solera 6.5x50mm - | | Casualty Claims Supervisor | [facility] | | | [id number] | | [id number]: Qty: 1 on | | ior: | DANEK - DIV | | | [id number] | | 12/12/2014 by Sascha Mir | | Spine | [employer] | | | / / | | DO [place] at [facility] | | Lumbar | - [facility] | | | | | [facility] | | | | | | | + +------+--------+ +--------+--------+--------+ | Screw Amanda Solera 6.5x45mm - | | Casualty Claims Supervisor | [facility] | | | [id number] | | [id number]: Qty: 1 on | | ior: | DANEK - DIV | | | [address] | | 12/12/2014 by Sascha Mir | | Spine | [employer] | | | / / | | DO [place] at [facility] | | Lumbar | - [facility] | | | | | [facility] | | | | | | | + +------+--------+ +--------+--------+--------+ | Screw Mas G5 Slra 7.5x40 Cn - | | Casualty Claims Supervisor | [facility] | | | [id number] | | [id number]: Qty: 1 | | ior: | DANEK - DIV | | | [id number] | | on 12/12/2014 by Clarke, | | Spine | [employer] | | | / / | | Sascha Armendariz DO at [facility] | | Lumbar | - [facility] | | | | | [facility] | | | | | | | + +------+--------+ +--------+--------+--------+ | Screw Amanda 8.5x40mm - | | Casualty Claims Supervisor | [employer] - | | | [id number] | | [id number]: Qty: 1 on | | ior: | MEDT | | | [id number] | | 12/12/2014 by Sascha Mir | | Spine | | | | / / | | DO [place] at [facility] | | Lumbar | | | | | | [facility] | | | | | | | + +------+--------+ +--------+--------+--------+ | Set Scrw Ns G5 Brk Off Ti | | Casualty Claims Supervisor | [facility] | | | [id number] | | 4.75 - [id number]: | | ior: | DANEK - DIV | | | 0 / / | | Qty: 4 on 12/12/2014 by | | Spine | [employer] | | | | | Sascha Mir DO at [facility] | | Lumbar | - [facility] | | | | | [facility] | | | | | | | | CENTER | | | | | | | + +------+--------+ +--------+--------+--------+ | Imp Spn Francis Ti Sext Ti 5.5x45 | | Casualty Claims Supervisor | [facility] | | | [id number] | | - [id number]: Qty: 2 | | ior: | DANEK - DIV | | | 5045 / | | on 12/12/2014 by Clarke, | | Spine | [employer] | | | / | | Sascha Armendariz DO at [facility] | | Lumbar | - [facility] | | | | | [facility] | | | | | | | [...] | Cannulated Screw Cd Horizon | | Casualty Claims Supervisor | [employer] - | | | [id number] | | SoleraExplanted: Qty: 1 on | | ior: | MEDT | | | [id number] | | 12/12/2014 at [facility] | | Spine | | | | / / | | [facility] | | Lumbar | | | | [...] | [employer] | MODA | [id number] | 12/10/19 | [phone] | | Medica | | MEDICAID HMO | HEALTH | | 20-Pre | 1 | | id | | | MDCD | | sent | | | | | | [place] | | | | | | + +--------+ +--------+ +---------+--------+ | [facility] | IHS | [id number] | 05/17/ | | | Indemn | | SERVICE | YELLOW | | 2011-P | | | ity | | | HAWK | | resent | | | | + +--------+ +--------+ +---------+--------+ | [employer] | [employer] | [id number] | | [phone] | | Medica | | MEDICAID HMO | HEALTH | | 019-Pr | 1 | | id | | | MDCD | | esent | | | | | | [place] | | | | | | + +--------+ +--------+ +---------+--------+ | [facility] | IHS | [id number] | 03/08/20 | | | Indemn | [...] | | al/Fam | | 1970 | [phone] | [place], [place] | | | neil | | | 1 (Home) | [address] | + +--------+ +--------+ + + | Demian Nina | Person | Self | [birth year] | [address] | | | al/Fam | | 1970 | [phone] | [place], [place] | | | neil | | | 1 (Home) | [address] | + +--------+ +--------+ + + Advance Directives + + + + + | Type | Date Recorded | Patient | Explanation | | | | Data Network Architect | | + + + + + | Power of | | | | | Production Control Analyst | | | | + + + [...]
--- OUTSIDE RECORDS SUMMARY | ~2020-04-02 | XMS | Encounter Summary ---
Demographics + + + | Address | [address] | | | [place] [address] | + + + | Home Phone [...] Team Providers + +------+ + | Care Flatbed Owner Operator Name | Role | Phone | [...] | | 2020 | | Center at [facility] [address] | MD [address] | (follow up call) | | | | [address] | [place], [place] | | | | | for Health and | [address] | | | | | [facility] 2 | [phone] | | | | | [place], [place] | | | | | | [address] | | | | | | [phone] | | | +--------+ + + + [...] to review their written discharge instructions call [phone] i f they had any questions or [...]
--- OUTSIDE RECORDS SUMMARY | ~2020-04-02 | XMS | Encounter Summary ---
Demographics + + + | Address | [address] | | | [place] [address] | + + + | Home Phone | | + + + | Preferred Language | Unknown | + + + | Marital Status | Single | + + + | Yarsanism Affiliation | CAT | + + + [...] Team Providers + +------+ + | Care Ceramic Designer Name | Role | Phone | [...] | | | | | | | PA | | | | | | | COLONOSCOPY, | | | | | | | FLEX, | | | | | | | W/BIOPSY PA | | | | | | | UPPER GI | | | | | | | ENDOSCOPY,BI | | | | | | | OPSY PA | | | | | | | [...] Jennifer Redman | | | | | ([facility]) at [address] | [place], [place] | | | | | [address] | [address] | | | | | Mailcode: [place] | [phone] | | | | | for Health and | | | | | | Healing, Building [address] | | | | | | [place], [place] | | | | | | [address] | | | | | | [phone] | | | +--------+ + + + [...] the endoscopy department toll free ext. [phone] or . After business hours or on weekends and holidays call the Hospital Field Clinical Engineer toll free [phone] ext. [phone] and have the GI doctor hand almond blancher paged. The provider who performed your procedure: [...] om the original. PRE PROCEDURE NOTE: MR# [id number] Subjective: Demian Nina is a 50 y.o. [...] (220 lb) | SpO2 96% | B [place] 37.76 kg/m | BSA 2.12 m Neuro: [...] visitor policy. Name and number of responsible constitution party: [employer] reached at [phone] Ok to contact this person with results [...] ago Have you been tested for the youngblood virus (if yes, result)? 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 No visitors are allowed in clinical areas. Your responsible constitution party will drop you off and pick you up at (say appropriate location and delete remaining options) - [address] at [facility] - a staff member will greet you in the drive through d rop off on arrival. - [facility]- Enter [facility] on 9th floor of [facility] and check i n at the admitting desk. Admitting will contact the procedure unit, and our staff will come to get you. Your responsible constitution party will pick you up at the front doors of [facility] when you are ready for discharge. 2. After check in, but prior to your procedure, a nurse will call your responsible constitution party to verify the plan and review expected time line for procedure/recovery. 3. During the procedure, do not have you family/ride wait in any of the parking garages, wh ere there is no cellular receptionist scheduler. Tell responsible constitution party to check their phone, and please wait in a place with good receptionist scheduler. 4. After your procedure, your procedure doctor will contact you by phone on the number timmy ng used to reach your responsible constitution party for milk pickup truck driver unless you request a different contact f or this. What is the name and mobile number of the person driving you home? Apptive Is this the same person you would [...] questions they can call us back at [phone] ctronically signed by Eloisa Desir at 01/04/2020 12:11 PM PDTPreprocedure Instructions - Beverley Young - 2020 2:53 PM PDT I left voicemail with Demian Nina, including details about date and time of procedu re, need for responsible constitution party, current no visitor policy, importance of reviewing and follo wing the preparation instructions carefully, and call if any questions about their procedure and preparation. "Hi this santa Lowery from [facility] Endoscopy. I'm calling to check in [...] us back as soon as possible at [phone] to review these changes."Electronically signed by Beverley Clark at 2019 2:57 PM PDTPlan of Rommel Logan RN - 12/25/2019 1:07 PM PDTAsymptomatic COVID-19 Test order placed and faxed to [facility]. RN Contacted Penny [facility]rad ([facility]) who confirmed receipt of faxed order and has scheduled patient for test ing on 01/07/2020. Rommel Matthews RN, BSN, CGRNElectronically signed by Rommel Matthews RN at 0 1:07 PM PDTPlan of Rommel Logan RN - 12/24/2019 4:42 PM PDTPatient will mendoza ve 48 hour pre-procedure COVID testing performed at [facility] on 020. RN spoke with [facility] RN ([place]) to confirm ability to perform test. [facility] requested order for test faxed to facility. Linwood verbalized that she will contac t the patient and schedule the test upon receipt of order. Order request sent to Dr. Sandhu . Hi Dr. Sandhu, Please fax a COVID-19 test request to [facility] for: Demian Nina 1970 [id number] 01/09/2020 EGD/COLO "Asymptomatic pt needs COVID testing 2 days prior to procedure on___ at [facility]. Please fax re larissa SEPULVEDA to ___. " Fax order to [phone] Thank you, Jay Matthews RN, BSN, CGRN lan of Care - Rommel Liu RN - 12/24/2019 2:22 PM PDTERX for golytely plus had been sent to [facility] pharmacy on 12/21/19. RN contacted [facility] [address] [place] to confirm receipt of ERX. Pharmacist confirmed receipt of ERX. RN spoke with patient via telephone re: COVID testing. RN offered testing at [facility] in [facility]. Patient stated that she would come into [place] for COVID t sophying. RN reviewed testing will be at the [facility] in [place] on 01/07/2020 between 1200 and 1800. Patient confirmed receipt of procedure instructions via email. RN encouraged juani nt to review instructions and contact [phone] with any questions. Patient verbalized un derstanding and is amenable to care.Electronically signed by Rommel Matthews RN at 2019 2:23 PM PDTdocumented in this encounter Plan of [...] PathologistPathology, | | | | | | [facility] | | | | | | [...] number | | | | | | [id number].A. Duodenum, | | | | | | [...] | + + + + + | [facility] DEPARTMENT OF | [address] | [place] [address] | | | PATHOLOGY | [address] | | | + + + + + | [facility] LABORATORY | [address] | [place] [address] | | | SERVICES, CENTER FOR | | | | | HEALTH [...] 70 - 99 mg/dL | [facility], | | | GLUCOSE, | | | [...] + + + + | [facility], [place] | [address] [facility] | [place] [address] | | | OF CARE TESTS | | | | + + + + + COLONOSCOPY (01/09/2020 7:17 AM PDT) + + | Specimen | + + | | + + + + + | Narrative | Performed At | + + + | MRN: | [facility] | | [id number] Date: 01/09/2020Patient Name: Demian Hooker #: | ENDOSCOPY | | [id number] of : 1970CSN: [id number] Type: | | | AmbulatoryRoom: Endo 6Procedure: | | | ColonoscopyIndications: Abdominal painProviders: | | | LEYDI SANDHU MD (Doctor), SANTO ALONSO RN | | | (Nurse), ELOISA DESIR (Auto Damage Insurance Appraiser)Referring MD: | | | ANNETTE JORGENSEN-CRequestalysia Provider: Medicines: | | | Monitored Anesthesia [...] the procedure. The Olympus | | | [id number] Colonoscope #[id number] was introduced | | | through the [...] evaluated | | | using the BBPS (Jessup Bowel | | | Preparation Scale) with [...] + | MRN: | [facility] | | [id number] Date: 01/09/2020Patient Name: Demian Hooker #: | ENDOSCOPY | | [id number] of : 1970CSN: [id number] Type: | | | AmbulatoryRoom: Endo 6Procedure: Upper GI | | | endoscopyIndications: Abdominal painProviders: | | | LEYDI SANDHU MD (Doctor), SANTO ALONSO RN | | | (Nurse), ELOISA DESIR (Auto Damage Insurance Appraiser)Referring MD: | | | ANNETTE JORGENSEN-CRequesting Provider: [...] | | | The Olympus [id number] Gastroscope #[id number] was | | | introduced through the [...] + + | Performing | Address | City/State/[facility] | Phone Number | | Organization [...] PRN, 8 | | | doses, Starting 01/09/20 at | | | 0836, Until Tue01/09/20 at 1603, | | | severe pain while in Phase I | | | Recovery | | + +---+ | | | + +---+ | labetaloL (TRANDATE) IV | | | injection 5 mg 5 mg, | | | intravenous, POSTPROCEDURE PRN, 5 | | | doses, Starting 01/09/20 at | | | 0838, Until Tue01/09/20 [...] 01/09/20 at 0709, | | | Until Tue01/09/20 at 1603, sore | | | oropharynx | | + +---+ | | | + +---+ | naloxone (NARCAN) injection | | | intravenous, POSTPROCEDURE PRN, | | | Starting 01/09/20 at 0835, | | | Until Tue01/09/20 at 1603, | | | hypopnea | | + +---+ | | | + +---+ | ondansetron (ZOFRAN) injection | | | 4 mg 4 mg, intravenous, | | | POSTPROCEDURE PRN, 1 dose, | | | Starting 01/09/20 at 0838, | | | Until Tue01/09/20 [...] PRN, 4 doses, | | | Starting 01/09/20 at 0838, | | | Until Tue01/09/20 [...]
--- OUTSIDE RECORDS SUMMARY | ~2020-04-02 | XMS | Encounter Summary ---
Demographics + + + | Address | [address] | | | [place] [address] | + + + | Home Phone [...] [place] | | | | | [address] | | + + + + + | Pratibha Hester | ECON | Unknown | + | + + + + + | Demian Powell | ECON | Unknown | + | + + + + + Care Team Providers + +------+ + | Care Radar Mechanic Name | Role | Phone | [...] | | | spondylolist | | [address] | | | | | hesis | | [place], | | | | | Acquired | | [place] [address] | | | | | spondylolist | | Phone: | | | | | hesis | | [phone] | | | | | Procedures | | Fax: | | | | | [place] [facility] | | [phone] | | | | | POST/POSTERO | [...] + + | 12/12/ | Anesthesia | [facility] | Laz Douglass | | | 2015 | Event | MED CTR OR INTRA OP | MD Jennifer [address] | | | | | [address] | [place] | | | | | [place] | [phone] | | | | | [address] | | | | | | [phone] | | | +--------+ + + + [...] +----+---+ + + | | 0 | [place] | | | | 9 | 43-degrees [...] +----+---+ + + | | 1 | [place] off | | | | 2 | [...] (see comment) (blood glucose); | Jeanna Mendoza, RN | Mariam Levi, EKATERINA | | | healing within expectations; | | | | Periph | 12/14/14; 1943 | | | | eral | | | | | IV - | | | | | Single | | | | | Lumen | | | | | | | | | +--------+ + + + | Airway | Placement Date: 12/12/14; | 12/12/1452 by | 12/12/14 1228 by | | [...] encounter [place] Notes Anesthesia Postprocedure Evaluation - Laz Douglass MD - 12/12/2014 12:43 PM PDTForma tting of this note might be different from the original. ANESTHESIA POSTANESTHESIA EVALUATION Demian Nina 44 y.o. female 1970 [id number] Procedure(s) L5-S1 Transforaminal Lumbar Interbody Fusion (N/A Back) Filed Vitals: 12/12/14 0822 12/12/14 1231 12/12/14 1232 BP: 124/69 99/62 98/51 Pulse: 73 116 112 Temp: 36.6 C (97.9 F) Resp: 18 20 20 SpO2: 94% 89% 94% Cooperates? Yes Mental Status Performs simple tasks. Respiratory Satisfactory - Airway patent (self maintained). Cardiovascular Satisfactory Blood pressure and heart rate acceptable Temperature Satisfactory Pain Satisfactory N/V Control Satisfactory Hydration Satisfactory No signs of dehydration Complications None apparent Electronically signed by Laz Douglass MD 12/12/2014 12:43 [facility] nesthesia Preproc edure Evaluation - Laz Douglass MD - 12/12/2014 8:14 AM PDTFormatting of this note m ight be different from the original. ANESTHESIA PREANESTHESIA EVALUATION Demian Nina 44 y.o. female 1970 [id number] Procedure(s): L5-S1 Transforaminal Lumbar Interbody Fusion (N/A ) Medical history, anesthesia, medications, allergy histories reviewed. Labs reviewed. ROS / Med History Ane (+) PONV. (-) difficult intubation, malignant hyperthermia . NPO status verified. CV (+) CAD, past FL.(-) hypertension, CHF, congenital heart disease, pulmonary hypertension, p acemaker, AICD, angina, echocardiogram, AAA. (-) dysrhythmias (-) valvular disease (-) PVD Exercise tolerance >4 METS. Pulm No acute pulmonary concerns. (+) asthma. (-) shortness of breath, recent URI, pneumonia, COPD, sleep apnea, active smoking, no supp lemental home oxygen. Neuro (+) headaches, back pain.(-) seizures, neuromuscular disease, TIA, CVA, scoliosis, neuropat hy, weakness, numbness/tingling, chronic pain. Psych (+) anxiety. (-) depression, substance abuse, developmental delays, dementia/delirium, bipolar disorder, schizophrenia, post-traumatic stress disorder. Renal Negative except where noted below. (-) renal/ureteral stones, pyelonephritis, chronic renal insufficiency, acute renal failure , end-stage renal disease GI/Hep Negative except where noted below. (-) reflux/GERD, hypercholesterolemia, hiatal hernia. (-) hepatitis. Endo (-) corticosteroid therapy, hypothyroidism, hyperthyroidism, goiter. (+) Diabetes:NIDDM. (+ ) obesity: morbid BMI 40+. Other Negative except where noted below. (-) anemia, thrombocytopenia, autoimmune disease, arthritis, coagulopathy. Cancer Negative except where noted below. (-) breast cancer, bladder cancer, colon cancer, lung cancer, prostate cancer. Physical Exam Airway MP II, TM >3 FB, Mouth opening >2 FB. Neck: full ROM, extends >30 degrees. Jaw protrus ion normal. Dental Grossly normal except where noted below.; (+) Age appropriate dentition. CV Rhythm regular. Rate Normal. (-) murmur, carotid bruit, peripheral edema, JVD and weak pulses. Pulm Clear to auscultation bilaterally. (-) wheezing, rhonchi, decreased breath sounds, rales and stridor. Neuro Grossly normal. Anesthesia Plan ASA 3 Type: General. Induction: Intravenous. Potential problems: Difficult airway. Monitors: Standard ASA monitors. Consent statement:Anesthetic plan, alternatives, risks and benefits discussed with patient and family. Risks discussed included (but were not limited to): dental injury, pain, sore throat, infec tion, voice injury, muscle aches, nausea, respiratory events, . Consenting person understands and agrees to proceed. PARQ. Risks and benefits of general anesthetic discussed with patient and available family member s. They agree to proceed, answered all questions.. documented in this encounter Plan of Treatment [...] | | | | | Breath, Starting [facility] 12/12/14 at | | PM PDT | [...] | | | | to Incision, Starting [facility] 12/12/14 | | | | | [...] | | | | | PRN, Starting [facility] 12/12/14 at 0949, | | AM PDT [...] mg | | | | PRN, Starting [facility] 12/12/14 at 1010, | | 15 10:10 [...] 11:38 | | | | | Starting [facility] 12/12/14 at 1138, | | AM PDT | | | | | Anesthesia Intra-op | | | | | | + +-------+ +--------+---+---+ +---+---+ | | | +---+---+ + +-------+ +--------+---+---+ | glycopyrrolate (ROBINUL) | Given | 12/13/19 | 0.2 mg | | | | injection Intravenous, PRN, | | 15 11:32 | | | | | Secretions, Starting [facility] 12/12/14 | | AM PDT | | | | | at 1132, Anesthesia Intra-op | | | | | | + +-------+ +--------+---+---+ +---+---+ | | | +---+---+ + +-------+ +--------+---+---+ | HYDROmorphone (PF) (DILAUDID) 2 | Given | 12/13/19 | 0.5 mg | | | | mg/mL injection PRN, Pain, | | 15 11:14 | | | | | Starting [facility] 12/12/14 at 0947, | | AM PDT [...] | | | | | CONTINUOUS, Starting [facility] 12/12/14 | | AM PDT | | [...] | | PRN, Starting [facility] 12/12/14 at 0949, | | 15 9:49 | | | | | Anesthesia Intra-op | | AM PDT | | | | + +-------+ +--------+---+---+ +---+---+ | | | +---+---+ + +-------+ +---------+---+---+ | vasopressin (PITRESSIN) | Given | 12/13/19 | 2 Units | | | | injection Intravenous, PRN, | | 15 11:37 | | | | | Starting [facility] 12/12/14 at 1044, | | AM PDT [...]
--- OUTSIDE RECORDS SUMMARY | ~2020-04-02 | XMS | Encounter Summary ---
Demographics + + + | Address | [address] | | | [place] [address] | + + + | Home Phone [...] Team Providers + +------+ + | Care Contact Lens Edge Buffer Name | Role | Phone | + [...]
--- OUTSIDE RECORDS SUMMARY | ~2020-04-02 | XMS | Encounter Summary ---
Demographics + + + | Address | [address] | | | [place] [address] | + + + | Home Phone [...] [place] | | | | | [address] | | + + + + + | Pratibha Hester | ECON | Unknown | + | + + + + + | Demian Powell | ECON | Unknown | + | + + + + + Care Team Providers + +------+ + | Care Lip Cutter And Scorer Name | Role | Phone | + [...] + + | 08/23/ | Telephone | [facility] | Denilson Jorge | Other (Schedule MRI | | 2012 | | [address] | [facility] [address] | ) | | | | [address] [facility] [address] | [address] [place] | | | | | [place] | [address] | | | | | [address] | [phone] | | | | | [phone] | | | +--------+ + + + [...] for At liza to be called into [facility] in [place]. Natalie Noonan elephone Enco unter - Natalie [...] claustro phobic. This has been rescheduled at [facility] on 09/08. Is it okay to call in Ativan 1MG #1 to h er pharmacy to take prior to her MRI? Please advise. Natalie documented in this enc ounter Plan of Treatment Not on filedocumented as of this encounter Visit Diagnoses Not on filedocumented in this encounter"
--- OUTSIDE RECORDS SUMMARY | ~2020-04-02 | XMS | Encounter Summary ---
Demographics + + + | Address | [address] | | | [place] [address] | + + + | Home Phone [...] [place] | | | | | [address] | | + + + + + | Pratibha Hester | ECON | Unknown | + | + + + + + | Demian Powell | ECON | Unknown | + | + + + + + Care Team Providers + +------+ + | Care Personal Fitness Trainer Name | Role | Phone | [...] [phone] | | | | | | [place], [place] | | | | | | [address] | | | | | | [phone] | | | +--------+ + + + [...]
--- OUTSIDE RECORDS SUMMARY | ~2020-04-02 | XMS | Encounter Summary ---
Demographics + + + | Address | [address] | | | [place] [address] | + + + | Home Phone [...] Providers + +------+ + | Care Counter Intelligence Technician Name | Role | Phone | [...] | | | [facility] [address] | [facility] | | | | | [address] | [place], [place] | | | | | Physician's | [address] | | | | | Pavilion, 2nd floor | [phone] | | | | | [place], [place] | | | | | | [address] | | | | | | [phone] | | | +--------+ + + + [...] Patient Information Patient Name Sex Demian Araya ([id number]) Female 1970 Due: TueAugust 14, 2014 1:00 PM Message Good afternoon, Patient Demian Nina ( ) has been walked in same day 08/14/[address] This [facility]'s insurance requires prior authorization with the most recent chart notes. Please have Dr. Cade complete office visit note dated 08/14/14 so that we can submit the authorization request. Thank you, Chioma Townsend [facility] [phone] documented in this encounte r Plan of Treatment Not on filedocumented as of this encounter Visit Diagnoses Not on filedocumented in this encounter"
--- OUTSIDE RECORDS SUMMARY | ~2020-04-02 | XMS | Encounter Summary ---
Demographics + + + | Address | [address] | | | [place] [address] | + + + | Home Phone [...] [place] | | | | | [address] | | + + + + + | Pratibha Hester | ECON | Unknown | + | + + + + + | Demian Powell | ECON | Unknown | + | + + + + + Care Team Providers + +------+ + | Care Washer And Capper Machine Operator Name | Role | Phone | + +------+ + | Quentin Manriquez PA-C | MARCK | | + +------+ + Encounter Details +--------+ + + + + | Date | Type | Department | Care Team | Description | +--------+ + + + + | 06/04/ | Hospital | [facility] | Sascha Mir, | Spondylolisthesis, | | 2014 | Encounter | MED CTR XRAY [address] | DO [address] | lumbar region; S/P | | | | [place] | [address] | lumbar fusion; | | | | [place] [address] | [id number] | Lumbar radicular | | | | [phone] | | pain | +--------+ + + [...] of the lumbar spine. Posterior | [facility] | | pedicle screw and nayan and [...] | + + + + + | [facility] | [address] | [place] | [phone] | | [facility] | | [address] | | | - IMAGING | | [...]
--- OUTSIDE RECORDS SUMMARY | ~2020-04-02 | XMS | Encounter Summary ---
Demographics + + + | Address | [address] | | | [place] [address] | + + + | Home Phone [...] [place] | | | | | [address] | | + + + + + | Pratibha Hester | ECON | Unknown | + | + + + + + | Demian Powell | ECON | Unknown | + | + + + + + Care Team Providers + +------+ + | Care Graduate Studies Dean Name | Role | Phone | + [...] [place] | | | | | [address] | [address] | | | | | [phone] | | | +--------+ + + + [...]
--- OUTSIDE RECORDS SUMMARY | ~2020-04-02 | XMS | Encounter Summary ---
Demographics + + + | Address | [address] | | | [place] [address] | + + + | Home Phone [...] | Author | [facility] | | | and [place] | + + + | Organization | [facility] | | [...] [place] | | | | | [address] | | + + + + + | Pratibha Hester | ECON | Unknown | + | + + + + + | Demian Powell | ECON | Unknown | + | + + + + + Care Team Providers + +------+ + | Care Spray Cementer Name | Role | Phone | + [...] | radiculopathy; HIP | | | | [place] | [address] [place], [place] | PAIN, LEFT, CHRONIC; | | | | [place] [address] | [address] | Spondylolisthesis | | | | [phone] | | of lumbar region | | [...] + | [facility] | [address] | [place], [place] | [phone] | | [facility] | | [address] | | | - IMAGING | | [...]
--- OUTSIDE RECORDS SUMMARY | ~2020-04-02 | XMS | Encounter Summary ---
Demographics + + + | Address | [address] | | | [place] [address] | + + + | Home Phone [...] Team Providers + +------+ + | Care Info Specialist Name | Role | Phone | [...] | | | | to excess | [place] | Center for | | | | | calories | Health | Health and | | | | | Obesity, | Center [address] | Healing, | | | | | unspecified | | Building [address] | | | | | | [address] | [place], [place] | | | | | | Way [address] | [address] | | | | | | [address] | Phone: | | | | | | [place], | [phone] | | | | | | [place] [address] | Fax: | | | | | | Phone: | [phone] | | | | | | [phone] | | | | | | | Fax: | | | | | | | [phone] | | +--------+--------+ + + + + [...] | | [address] | [facility] [place] | (Primary Dx); Type 2 | | | | for Health and | [address] | diabetes mellitus | | | | Healing, Building [address] | | with other specified | | | | [place], [place] | | complication, with | | | | [address] | | long-term current | | | | [phone] | | 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 (HCC) | [...] of Visit: 1:55 until 2:40 (45 minutes fjld-gc-blio with patient) SUBJECTIVE: Pt comes in alone. Pt shares she usually skips breakfast but snacks a lot in af ternoons and evenings. Pt shares she eats a lot of pizza and drinks a lot of soda. 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 Will finish in two years. When [...] shares she has access gym on the [employer] 24 hr food recall: Pt has a [...] Eli Rodas, MS, RDN, CSOWM, LD, CDE [facility] Bariatrics [phone] documented in this e ncounter Plan of Treatment Not on filedocumented as of this encounter Procedures + +--------+ + + + | Procedure Name | Priori | Date/Time | Associated Diagnosis | Comments | | | ty | | | | + +--------+ + + + | AL MNT INITIAL | Routin | 06/27/2019 | [...]
--- OUTSIDE RECORDS SUMMARY | ~2020-04-02 | XMS | Encounter Summary ---
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 ANNETTE Gutierrez [address] [facility], [address] [place], [place] [id number] FAX: NEUROSURGERY HISTORY AND PHYSICAL EXAMINATION CHIEF [...] Medication Sig Dispense Ref[facility]; 1-2 puffs every 3-4 hours [...] has no apparent deficits with short or care home memory. CRANIAL NERVES: II: Acuity is intact. [...] Diagnosis Date Morbid obesity (HCC) Diabetes mellitus ([facility]) Multiple allergies Chronic back pain Gastric [...]
--- OUTSIDE RECORDS SUMMARY | ~2020-04-02 | XMS | Encounter Summary ---
Demographics + + + | Address | [address] | | | [place] [address] | + + + | Home Phone | | + + + | Preferred Language | Unknown | + + + | Marital Status | Single | + + + | Baptism Affiliation | CAT | + + + [...] Team Providers + +------+ + | Care Heel Packer Name | Role | Phone | [...] | obesity | AGACNP [address] | | | | | ([facility]) | [address] | for Health | | | | | Procedures | [place], | and Healing, | | | | | PHYSICAL | [place] | Building [address], | | | | | THERAPY | [address] | 1st Floor | | | | | REFERRAL | Phone: | [place], [place] | | | | | | | [address] | | | | | | Fax: | Phone: | | | | | | [phone] | [phone] | | | | | | | Fax: | | | | | | | [phone] | +--------+--------+ + + + + Encounter Details +--------+ + + + + | Date | Type | Department | Care Team | Description | +--------+ + + + + | 05/03/ | Water Safety Teacher | Digestive Health | Jen Coronel, | Morbid obesity (HCC) | | 2019 | | Center at [facility] [address] | AGACNP [address] | (Primary Dx) | | | | [address] | [address] [facility] [place] | | | | | for Health and | [address] | | | | | Healing, [address] | [phone] | | | | | [place], [place] | | | | | | [address] | | | | | | [phone] | | | +--------+ + + + [...]
--- OUTSIDE RECORDS SUMMARY | ~2020-04-02 | XMS | Encounter Summary ---
Demographics + + + | Address | [address] | | | [place] [address] | + + + | Home Phone [...] Providers + +------+ + | Care Patient Registration Clerk Name | Role | Phone | [...] | | | | | 4th floor [place], | | | | | | [place] [address] | | | | | | [phone] | | | +--------+ + + + [...] 1st available Any Provider Resources: None Location: [facility] Type of Sedation: Anesthesia; Reason: Increased tolerance of pain meds. Type of PMC appointment: Phone Preparation: Jeffrey Plus - None Other Comments: Patient with obesity and chronic pain, EGD and colonoscopy requested for ev aluation. elephone Zack Durand - 10/19/2018 2:44 PM PDTFormatting of this note might be different fro m the original. Demian Nina [id number] REFERRAL FOR REVIEW: Reviewing Provider: Rommel Pina [...]
--- OUTSIDE RECORDS SUMMARY | ~2020-04-02 | XMS | Encounter Summary ---
Demographics + + + | Address | [address] | | | [place] [address] | + + + | Home Phone [...] [place] | | | | | [address] | | + + + + + | Pratibha Hester | ECON | Unknown | + | + + + + + | Demian Powell | ECON | Unknown | + | + + + + + Care Team Providers + +------+ + | Care Railroad Hand Name | Role | Phone | [...] + | 12/27/ | Telephone | [facility] | Sascha Mir, | Appointment | | 2014 | | NEUROSURGERY [address] | DO [address] | | | | | [address] | [address] [place], [place] | | | | | [place] | [id number] | | | | | [address] | | | | | | [phone] | | | +--------+ + + + [...] - 12/27/2014 9:21 AM PDTI spoke with eDmian today. She C/O n umbness/tingling in her [...]
--- OUTSIDE RECORDS SUMMARY | ~2020-04-02 | XMS | Encounter Summary ---
Demographics + + + | Address | [address] | | | [place] [address] | + + + | Home Phone [...] [place] | | | | | [address] | | + + + + + | Pratibha Hester | ECON | Unknown | + | + + + + + | Demian Powell | ECON | Unknown | + | + + + + + Care Team Providers + +------+ + | Care Vp Director Of Creative Strategy Name | Role | Phone | + [...] + + | 06/09/ | Telephone | [facility] | Sascha Mir, | Other | | 2014 | | NEUROSURGERY [address] | DO [address] | | | | | [address] | [address] [place], [place] | | | | | [place] | [phone] | | | | | [address] | | | | | | [phone] | | | +--------+ + + + [...]
--- OUTSIDE RECORDS SUMMARY | ~2020-04-02 | XMS | Encounter Summary ---
Demographics + + + | Address | [address] | | | [place] [address] | + + + | Home Phone [...] + + + | Author | [facility] | | | and [place] | + + + | Organization | [facility] | | | [...] [place] | | | | | [address] | | + + + + + | Pratibha Hester | ECON | Unknown | + | + + + + + | Demian Powell | ECON | Unknown | + | + + + + + Care Team Providers + +------+ + | Care Residential Fee Appraiser Name | Role | Phone | [...] | | | | [place] | [address] | | | | | [address] | [phone] | | | | | [phone] | | | +--------+ + + + [...] approved [address] Jorge #[id number] signed by Natalie Noonan at 10/03/2012 11:22 [address]documented in this encounter Plan of Treatment Not on filedocumented as of this encounter Visit Diagnoses Not on filedocumented in this encounter"
--- OUTSIDE RECORDS SUMMARY | ~2020-04-02 | XMS | Encounter Summary ---
Demographics + + + | Address | [address] | | | [place] [address] | + + + | Home Phone [...] [place] | | | | | [address] | | + + + + + | Pratibha Hester | ECON | Unknown | + | + + + + + | Demian Powell | ECON | Unknown | + | + + + + + Care Team Providers + +------+ + | Care Pharmacovigilance Safety Expert Name | Role | Phone | + [...] | Physical | Diagnoses | Jorge, | Ioana, | | | Services | Medicine and | Pars defect | Denilson Galdamez, | Roger Ennis MD | | | Required | Rehabilitatio | of lumbar | MD [address] | [address] | | | | n | spine | [address] | [address] [place] | | | | | Spondylolist | [facility] [place], | [facility] [place] | | | | | hesis of | [place] [address] | [address] Phone: | | | | | lumbar | Phone: | [phone] | | | | | region | [phone] | Fax: | | | | | Degenerative | [phone] Fax: | [phone] | | | | | disc | | | | | | | disease, | [phone] | | | | | | lumbar [...] | | | | | | | ([facility]) | | | | | | | Sacroiliitis | | | | | | | ([facility]) | | | | | | | Trochanteric | | | | | | | bursitis | | | | | | | Diabetes | | | | | | | mellitus | | | | | | | ([facility]) | | | | | | | [...] | | | | | spine | [address] | | | | | | Spondylolist | [place], | | | | | | hesis of | [place] [address] | | | | | | lumbar | Phone: | | | | | | region | [phone] | | | | | | Degenerative | [phone] Fax: | | | | | | disc | | | | | | | disease, | [phone] | | | | | | lumbar [...] + + | 10/27/ | Office | [facility] | Denilson Jorge | Pars defect of | | 2012 | Visit | NEUROSURGERY [address] | F, MD [address] | lumbar spine L5-S1 | | | | [address] | St [place], [place] | (Primary Dx); | | | | [place] | [address] | Spondylolisthesis of | | | | [address] | [phone] | lumbar region | | | | [phone] | | L5-S1; Degenerative | | | [...] | | | | mellitus ([facility]); | | | | | | Asthma; [...] slip forward. This is called spondylolisthes is. [phone] [facility], [address] [place] [address], [place] [address]. All rights reserve d. This information is not intended as a substitute for professional medical care. Always fo llow your healthcare professional's instructions. documented in this encounter Progress Notes Denilson Jorge MD - 10/27/2012 11:58 AM PDTFormatting of this note might be differen t from the original. Denilson Jorge MD [address] [place] [address], [address] [place] [address] FAX: NEUROSURGERY FOLLOW-UP CHIEF COMPLAINT: Lumbar spondylolisthesis [...] has no apparent deficits with short or longwall shearer operator memory. CRANIAL NERVES: Fundoscopic Exam: The optic [...] Intrinsics 5 5 Ulnar Intrinsics 5 5 Graduate Assistant Athletic Trainer Strength 5 5 Hip Flexion 5 5 [...] th is encounter Plan of Treatment + + +--------+ [...] obesity | | | | | | ([facility]) Sacroiliitis | | | | | | ([facility]) Trochanteric | | | | | | bursitis Diabetes | | | | | | mellitus ([facility]) | | | | | | Asthma [...] obesity | | | | | | ([facility]) Sacroiliitis | | | | | | ([facility]) Trochanteric | | | | | | bursitis Diabetes | | | | | | mellitus ([facility]) | | | | | | Asthma [...]
--- OUTSIDE RECORDS SUMMARY | ~2020-04-02 | XMS | Encounter Summary ---
Demographics + + + | Address | [address] | | | [place] [address] | + + + | Home Phone [...] [place] | | | | | [address] | | + + + + + | Pratibha Hester | ECON | Unknown | + | + + + + + | Demian Powell | ECON | Unknown | + | + + + + + Care Team Providers + +------+ + | Care Karate Teacher Name | Role | Phone | + +------+ + | Quentin Manriquez PA-C | MARCK | | + +------+ + Encounter Details +--------+ + + + + | Date | Type | Department | Care Team | Description | +--------+ + + + + | 06/04/ | Hospital | [facility] | Sascha Mir, | Cervical radicular | | 2015 | Encounter | MED CTR XRAY [address] | DO [address] | pain | | | | [place] | [address] | | | | | [place] [address] | [id number] | | | | | [phone] | | | +--------+ + + + [...] radiculopathy COMPARISON: MRI cervical spine 04/03/2015 | [facility] | | FINDINGS: Upright AP, lateral and lateral flexion-extension views of [facility] | | the cervical spine. Spine is [...] + + | Performing | Address | City/State/[facility] | Phone Number | | Organization | | | | + + + + + | [facility] | [address] | [place] | [phone] | | [facility] | | [address] | | | - IMAGING | | | | + + + + + documented in this encounter Visit Diagnoses + + | Diagnosis | + + | Cervical radicular pain Brachial neuritis or radiculitis nos | + + documented in this encounter"
--- OUTSIDE RECORDS SUMMARY | ~2020-04-02 | XMS | Encounter Summary ---
Demographics + + + | Address | [address] | | | [place] [address] | + + + | Home Phone [...] Author + + + | Author | [facility] | | | and [place] | + + + | Organization | [facility] | | [...] [place] | | | | | [address] | | + + + + + | Pratibha Hester | ECON | Unknown | + | + + + + + | Demian Powell | ECON | Unknown | + | + + + + + Care Team Providers + +------+ + | Care Goldbeater Name | Role | Phone | + [...] [address] | [address] [place] | | | | | [place] | [address] | | | | | [address] | | | | | | [phone] | | | +--------+--------+ + + + [...] is disconnected. I will send her a Ipracom message. Rx called into [facility]. Dolores d estrcharles. ELINA FAIRBANKS elephone Encounte [...]
--- OUTSIDE RECORDS SUMMARY | ~2020-04-02 | XMS | Encounter Summary ---
Demographics + + + | Address | [address] | | | [place] [address] | + + + | Home Phone [...] Team Providers + +------+ + | Care Printing Roller Handler Name | Role | Phone | + [...]
--- OUTSIDE RECORDS SUMMARY | ~2020-04-02 | XMS | Encounter Summary ---
Demographics + + + | Address | [address] | | | [place] [address] | + + + | Home Phone [...] [place] | | | | | [address] | | + + + + + | Pratibha Hester | ECON | Unknown | + | + + + + + | Demian Powell | ECON | Unknown | + | + + + + + Care Team Providers + +------+ + | Care Stoker Erector Name | Role | Phone | [...] + + | 06/09/ | Telephone | [facility] | Sascha Mir, | Other | | 2014 | | NEUROSURGERY [address] | DO [address] | | | | | [address] | [address] [place], [place] | | | | | [place] | [id number] | | | | | [address] | | | | | | [phone] | | | +--------+ + + + [...]
--- OUTSIDE RECORDS SUMMARY | ~2020-04-02 | XMS | Encounter Summary ---
Demographics + + + | Address | [address] | | | [place] [address] | + + + | Home Phone [...] [place] | | | | | [address] | | + + + + + | Pratibha Hester | ECON | Unknown | + | + + + + + | Demian Powell | ECON | Unknown | + | + + + + + Care Team Providers + +------+ + | Care Hotel Manager Name | Role | Phone | + +------+ + PCP | Unavailable | + +------+ + Encounter Details +--------+ + + + + | Date | Type | Department | Care Team | Description | +--------+ + + + + | 05/23/ | Hospital | [facility] | | | | 1999 | Encounter | MED CTR LABORATORY | | | | | | [address] | | | | | | [place] | | | | | | [address] | | | | | | [phone] | | | +--------+ + + + [...]
--- OUTSIDE RECORDS SUMMARY | ~2020-04-02 | XMS | Encounter Summary ---
Demographics + + + | Address | [address] | | | [place] [address] | + + + | Home Phone | | + + + | Preferred Language | Unknown | + + + | Marital Status | Single | + + + | Latter-Day Affiliation | CAT | + + + | Race | Unknown | + + + | Ethnic Group | Not or | + + + Author + + + | Author | [facility] | + + + | Organization | [facility] | + + + | Address | Unknown | + + + | Phone | Unavailable | + + + Support + + +---------+ + | Name | Relationship | Address | Phone | + + +---------+ + | Alisia Nina | ECON | Unknown | | + + +---------+ + Care Team Providers + +------+ + | Care Trigonometry Tutor Name | Role | Phone | + [...] | | | | | Physician's | [address] | | | | | [place], [facility] floor | [phone] | | | | | [place], [place] | | | | | | [address] | | | | | | [phone] | | | +--------+ + + + [...] AM PDTFYI - I have been working [facility] e November to get auth for vestibular [...]
--- OUTSIDE RECORDS SUMMARY | ~2020-04-02 | XMS | Encounter Summary ---
Demographics + + + | Address | [address] | | | [place] [address] | + + + | Home Phone [...] [place] | | | | | [address] | | + + + + + | Pratibha Hester | ECON | Unknown | + | + + + + + | Demian Powell | ECON | Unknown | + | + + + + + Care Team Providers + +------+ + | Care Outdoor Advertising Leasing Agent Name | Role | Phone | [...] [address] | | | | | [place], [place] | [place] [address] | | | | | [address] | [phone] | | | | | [phone] | | | +--------+--------+ + + + [...]
--- OUTSIDE RECORDS SUMMARY | ~2020-04-02 | XMS | Encounter Summary ---
Demographics + + + | Address | [address] | | | [place] [address] | + + + | Home Phone [...] Team Providers + +------+ + | Care Sql Server Developer Name | Role | Phone | + +------+ + | Gracie Lewis PA-C | PCP | | + +------+ + Encounter Details +--------+ + + + + | Date | Type | Department | Care Team | Description | +--------+ + + + + | 04/24/ | Abstract | Digestive Health | Clinic, Surgery | | | 2019 | | [place] [address] [address] | | | | | | [address] [facility] | | | | | | for Health and | | | | | | Healing, [address] | | | | | | [place], [place] | | | | | | [address] | | | | | | [phone] | | | +--------+ + + + [...]
--- OUTSIDE RECORDS SUMMARY | ~2020-04-02 | XMS | Encounter Summary ---
Demographics + + + | Address | [address] | | | [place] [address] | + + + | Home Phone [...] Team Providers + +------+ + | Care Starchmaker Name | Role | Phone | + [...] floor | | | | | | [place], [place] | | | | | | [address] | | | | | | [phone] | | | +--------+ + + + [...] to mild conductive hearing loss. A speech concierge receptionist threshold was o btained at 30 dB HL and is in good agreement with responses to pure-tone stimuli. Word clau gnition ability was 100% when words were presented at a comfortable level of 65 dB HL. Left Ear: Near normal hearing with a conductive loss below 2000 Hz; mild sensorineural he aring loss at 8000 Hz. A speech concierge receptionist threshold was obtained at 20 dB HL and is in good agreement with responses to pure-tone stimuli. Word recognition ability was 100% when word s were presented at a comfortable level of 60 dB HL. Please see [facility] audiogram for details. Please see otology note [...] | + +--------+ + + + | OK TYMPANOMETRY | Routin | 08/14/2014 | Conductive hearing | | | | e | 4:03 PM | loss, bilateral | | | | | PST | | | + +--------+ + + + | [place] COMPREHENSIVE | Routin | 08/14/2014 | Conductive [...]
--- OUTSIDE RECORDS SUMMARY | ~2020-04-02 | XMS | Encounter Summary ---
Demographics + + + | Address | [address] | | | [place] [address] | + + + | Home Phone [...] Author + + + | Author | [facility] | | | and [place] | + + + | Organization | [facility] | | | and [...] [place] | | | | | [address] | | + + + + + | Pratibha Hester | ECON | Unknown | + | + + + + + | Demian Powell | ECON | Unknown | + | + + + + + Care Team Providers + +------+ + | Care Metal Hanging Helper Name | Role | Phone | [...] | 06/11/ | Telephone | [facility] | Sascha Mir, | Other (Med refill) | | 2014 | | NEUROSURGERY [address] | DO [address] | | | | | [address] | [address] [place] | | | | | [place] | [phone] | | | | | [address] | | | | | | [phone] | | | +--------+ + + + [...] that her Rx's were c alled into [facility]. I explained to her that I [...] 06/11/2015 1:19 PM PSTPatient left message via Indix: "Need refill of Zofran called into [facility]."Electronically signed by Melida Lindquist at 015 1:20 PM PSTdocumented in this encounter Plan of Treatment Not on filedocumented as of this encounter Visit Diagnoses + + | Diagnosis | + + | Nausea - Primary Nausea alone | + + documented in this encounter
--- OUTSIDE RECORDS SUMMARY | ~2020-04-02 | XMS | Encounter Summary ---
Demographics + + + | Address | [address] | | | [place] [address] | + + + | Home Phone [...] Team Providers + +------+ + | Care Ocean Freight Forwarder Name | Role | Phone | + [...] | | | | Gastroesopha | AGACNP [address] | | | | | | geal reflux | [address] | | | | | | disease, | [place], | | | | | | esophagitis | [place] | | | | | | presence not | [address] | | | | | | specified | Phone: | | | | | | Severe | [phone] | | | | | | obesity | Fax: | | | | | | ([facility]) Type | [phone] | | | | | | 2 [...] | | | | | | | ([facility]) Hx of | | | | | [...] | Pain | Diagnoses | Berna, | Progressive Assembler And Fitter Psych | | | | Management | | Jen Gross, | [address] | | | | | Gastroesopha | AGACNP [address] | | | | | geal reflux | [address] | [place] for | | | | | disease, | [place], | Health and | | | | | esophagitis | [place] | Healing, | | | | | presence not | [address] | Building | | | | | specified | Phone: | 1,15th Floor | | | | | Severe | | [place], [place] | | | | | obesity | Fax: | [address] | | | | | (HCC) Type | [phone] | Phone: | | | | | 2 diabetes | | [phone] | | | | | mellitus | | Fax: | | | | | without | | [phone] | | | | | complication | [...] Satinder Capellan MD | | | with LOGGING OPERATIONS INSPECTOR | | (severe) | PA-C | [address] | | | | | obesity due | [address] | Ave | | | | | to excess | [place] | [place], [place] | | | | | calories | Health | [address] | | | | | Obesity, | Center [address] | Phone: | | | | | unspecified | | [phone] | | | | | | [place] | Fax: | | | | | | Way [address] | [phone] | | | | | | [address] | | | | | | | [place], | | | | | | | [place] [address] | | | | | | | Phone: | | | | | | | [phone] | | | | | | | Fax: | | | | | | | [phone] | | +--------+ + + + + + Encounter Details +--------+---------+ + + + | Date | Type | Department | Care Team | Description | +--------+---------+ + + + | 06/27/ | Office | Dig[facility]ive [facility] | Jen Coronel, | Severe obesity (HCC) | | 2019 | Visit | Center at [facility] [address] | AGACNP [address] | (Primary Dx); | | | | [address] | Ave [place], [place] | Gastroesophageal | | | | for Health and | [address] | reflux disease, | | | | Healing, Building 2 | [phone] | esophagitis presence | | | | [place], [place] | | not specified; Type | | | | [address] | | 2 diabetes mellitus | | | | | | without | | | | | | complication, with | | | | | | long-term current | | | | | | 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 | | | | | | ([facility]); Hx of | | | | | [...] Pre-op Psychological Evaluation: Your referral is at [facility], the Pain Management Office w ill call you in the next week to schedule. + Hemoglobin A1C will have to be below 8 prior to surgery. + Weight Management classes: 2 classes are required in addition to your private appointme nt with the extractions technician. These classes will be scheduled apporoximately 1 month apart to allow time for you to put the teaching into action. Please call [phone] to schedule these classes after you have [...] and lifestyle. The patient has seen our [facility] extractions technician and physical therapy colleagues to discuss exercise [...] a healthy weight. 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 female who presents with a [facility] hospital medical history of morbid obesity with [...] Redux or Phen/fen: no Transthoracic ECHO: na Confucianism or cultural reason you would refuse blood [...] day prior to colonoscopy as directed by [facility]. Discard remaining half jug. [...] of lower extremity edema, . Denies CHF, [place], ischemic heart disease, DV T/PE, or pulmonary [...] ordered -ok to do this locally in [place] -Is a stomach sleeper, may not tolerate [...] Pre-op Psychological Evaluation: Your referral is at [facility], the Pain Management Office w ill call you in the next week to schedule. + Hemoglobin A1C will have to be below 8 prior to surgery. + Weight Management classes: 2 classes are required in addition to your private appointme nt with the extractions technician. These classes will be scheduled apporoximately 1 month apart to allow time for you to put the teaching into action. Please call [phone] to schedule these classes after you have [...] and lifestyle. The patient has seen our [facility] extractions technician and physical therapy colleagues to discuss exercise [...] a healthy weight. + Sign up for [employer] so that we can communicate easily back [...] other providers does not guarantee that the [facility] Bariatric Surger y program will deem [...] Coronel, MSN, AG-ACNP Bariatric Surgery Nurse Practitioner [facility] | [address] | [place], [place] | [address] | documented in th is encounter Plan [...] | | | | 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 ([facility]) | | | | | | Hx [...] | | | | 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 ([facility]) | | | | | | Hx [...] | | | | | Severe obesity ([facility]) | | | | | | Type 2 diabetes | | | | | | mellitus without | | | | | | complication, with | | | | | | long-term current | | | | | | 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 ([facility]) | | | | | | Hx [...] | | | | | Severe obesity ([facility]) | | | | | | Type 2 diabetes | | | | | | mellitus without | | | | | | complication, with | | | | | | long-term current | | | | | | 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 ([facility]) | | | | | | Hx [...] | | | | 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 ([facility]) | | | | | | Hx [...] | | | | 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 ([facility]) | | | | | | Hx [...] | | | | 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 ([facility]) | | | | | | Hx [...] | | | | 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 ([facility]) | | | | | | Hx [...] | | | | | Severe obesity ([facility]) | | | | | | Type [...]
--- OUTSIDE RECORDS SUMMARY | ~2020-04-02 | XMS | Encounter Summary ---
Demographics + + + | Address | [address] | | | [place] [address] | + + + | Home Phone [...] [place] | | | | | [address] | | + + + + + | Pratibha Hester | ECON | Unknown | + | + + + + + | Demian Powell | ECON | Unknown | + | + + + + + Care Team Providers + +------+ + | Care Injection Mold Tooling Technician Name | Role | Phone | + +------+ + | Quentin Manriquez PA-C | MARCK | | + +------+ + Encounter Details +--------+ + + + + | Date | Type | Department | Care Team | Description | +--------+ + + + + | 09/26/ | Hospital | [facility] | Sascha Mir, | Displacement of | | 2014 | Encounter | MED CTR XRAY [address] | DO [address] | lumbar | | | | [place] | [address] | intervertebral disc | | | | [place] [address] | [id number] | without myelopathy | | | | [phone] | | | +--------+ + + + [...] by mouth | | 0 | | 05/11/201 | | tablet | Daily. | | [...] | | HISTORY:Back pain COMPARISON: MRI from [facility] dated | [facility] | | June 25, [...] | 09/26/2014 8:51 AMHISTORY:Back painCOMPARISON: MRI from [facility] dated | | June 25, 2014 and [...] + | [facility] | [address] | [place] | [phone] | | [facility] | | [address] | | | - IMAGING | | | | + + + + + documented in this encounter Visit Diagnoses + + | Diagnosis | + + | Displacement of lumbar intervertebral disc without myelopathy | + + documented in this encounter"
--- OUTSIDE RECORDS SUMMARY | ~2020-04-02 | XMS | Encounter Summary ---
Demographics + + + | Address | [address] | | | [place] [address] | + + + | Home Phone [...] Team Providers + +------+ + | Care Airborne Operations Superintendent Name | Role | Phone | + +------+ + | Gracie Lewis PA-C | PCP | | + +------+ + Encounter Details +--------+ + + + + | Date | Type | Department | Care Team | Description | +--------+ + + + + | 12/24/ | [employer] | Digestive Health | Jeanna Sandhu, | Suspected 2018 novel | | 2019 | | Center at [facility] [address] | MD [address] | coronavirus | | | | [address] | [place], [place] | infection (Primary | | | | for Health and | [address] | Dx) | | | | Healing, Building 2 | [phone] | | | | | [place], [place] | | | | | | [address] | | | | | | [phone] | | | +--------+ + + + [...]
--- OUTSIDE RECORDS SUMMARY | ~2020-04-02 | XMS | Encounter Summary ---
Demographics + + + | Address | [address] | | | [place] [address] | + + + | Home Phone [...] [place] | | | | | [address] | | + + + + + | Pratibha Hester | ECON | Unknown | + | + + + + + | Demian Powell | ECON | Unknown | + | + + + + + Care Team Providers + +------+ + | Care Manager Interface Name | Role | Phone | + [...] + | 12/27/ | Telephone | [facility] | Sascha Mir, | Appointment | | 2014 | | NEUROSURGERY [address] | DO [address] | | | | | [address] | [address] [place], [place] | | | | | [place] | [id number] | | | | | [address] | | | | | | [phone] | | | +--------+ + + + [...]
--- OUTSIDE RECORDS SUMMARY | ~2020-04-02 | XMS | Encounter Summary ---
Demographics + + + | Address | [address] | | | [place] [address] | + + + | Home Phone [...] [place] | | | | | [address] | | + + + + + | Pratibha Hester | ECON | Unknown | + | + + + + + | Demian Powell | ECON | Unknown | + | + + + + + Care Team Providers + +------+ + | Care Floor Waxer Name | Role | Phone | + +------+ + | Quentin Manriquez PA-C | MARCK | | + +------+ + Reason for Visit +--------+--------+ + | Reason | Onset | Comments | | | Date | | +--------+--------+ + | Other | 12/23/ | Medication request | | | 2014 | | +--------+--------+ + Encounter Details +--------+ + + + + | Date | Type | Department | Care Team | Description | +--------+ + + + + | 12/23/ | Telephone | [facility] | Sascha Mir, | Other (Medication | | 2014 | | NEUROSURGERY [address] | DO [address] | request) | | | | [facility] 50 | [address] [place] | | | | | [place] | [address] | | | | | [address] | | | | | | [phone] | | | +--------+ + + + [...] Encounter - Elina Noonan Cert MA - 12/24/2014 2:39 PM PDTMessage was relayed randa Arciniega in detail. She verbalized understanding. ELINA NOONAN eleAmol Wang PA - 12/24/2014 11:25 AM PDTPatient needs to FU with her PCP regardin g her low blood pressure. Also unfortunately I am not willing to give her fentanyl patches i n place of her percocet. Fentanyl patches have always been a little dangerous and have reall y fallen out of favor lately, unless we are forced to use them. So for now I am willing to g keisha her what I think is appropriate. If she wants her PCP to take over her pain medication a nd is willing to give fentanyl patches than we will turn over the responsibility over to the m. eleElina Morrison Cert MA - 12/24/2014 8:41 AM PDTLavon states that her BP keeps dropping. She does take Lisinopril daily. Demian requests that she be prescribed Fentanyl Patches in stead of the Percocet. She says that she doesn't want to have to take pills every 4 hours l tremayne she is doing currently. She says the percocet helps her pain, but she just doesn't want to take the pills all the time. She is S/P L5-S1 TLIF on 12/12/14. Next visit is on 01/15/15. Please advise. ELINA NONOAN elephone Encounjoaquin r Karis Montano - 12/24/2014 8:36 AM PDTPatient returned call and left message via [email or web address] service to call back. elephone Encounter - Elina Noonan Cert MA - 12/23/2014 4:04 PM PDTCall returned to samy saenz LVM [id number] signed by Bhanu Matias MA at 12/23/2014 4:04 PM PDTTelephone Encounter - Melida Lindquist - 12/23/2014 1:43 PM PDTPatient returned call. elephone Encounter - Elina Noonan Cert MA - 12/23/2014 9:23 AM PDTReturned call to patient. LVM. Requested call back. ELINA NOONAN elephone Encounte Melida Parikh - 12/23/2014 9:16 AM PDTPatient left message via [employer]: "Plea se call. I want to switch to fentanyl patch instead of percocet." documented in this encounter Plan of Treatment Not on filedocumented as of this encounter Visit Diagnoses Not on filedocumented in this encounter
--- OUTSIDE RECORDS SUMMARY | ~2020-04-02 | XMS | Encounter Summary ---
Demographics + + + | Address | [address] | | | [place] [address] | + + + | Home Phone [...] [place] | | | | | [address] | | + + + + + | Pratibha Hester | ECON | Unknown | + | + + + + + | Demian Powell | ECON | Unknown | + | + + + + + Care Team Providers + +------+ + | Care Golf Course Patroller Name | Role | Phone | + [...] | Sleep | sleep apnea | [address] [address] | MD Michael [address] | | | | Medicine / | (adult) | [address] | [address] | | | | Sleep | (pediatric) | [place], | [facility] | | | | Medicine | | [place] [address] | [place], [place] | | | | | consult,pw@0 | Phone: | [phone] Phone: | | | | | 930, no ss, | [phone] | [phone] | | | | | no cpap/AO | Fax: | Fax: | | | | | Procedures | [phone] | [phone] | | | | | NEW PATIENT | | | +--------+--------+ + + + + Encounter Details +--------+ + + + + | Date | Type | Department | Care Team | Description | +--------+ + + + + | 12/11/ | Virtual | [facility] | Jasiel Loo | NO SHOW (Primary Dx) | | 2020 | Office | SLEEP DISORDER [address] | MD Michael [address] [place] | | | | Visit | [address] [place] | [address] [facility] | | | | | [place] [address] | [place] [address] | | | | | [phone] | [phone] | | | | | | | [...]
--- OUTSIDE RECORDS SUMMARY | ~2020-04-02 | XMS | Encounter Summary ---
Demographics + + + | Address | [address] | | | [place] [address] | + + + | Home Phone [...] [place] | | | | | [address] | | + + + + + | Pratibha Hester | ECON | Unknown | + | + + + + + | Demian Powell | ECON | Unknown | + | + + + + + Care Team Providers + +------+ + | Care Incident Response Analyst Name | Role | Phone | [...] | | | | Displacement | PA-C [address] | [address] | | | | | of lumbar | [place] | [address] | | | | | intervertebr | WAY | [place] | | | | | al disc | [place], | [address] Phone: | | | | | without | [place] [address] | [phone] | | | | | myelopathy | Phone: | Fax: | | | | | Procedures | [phone] | [phone] | | | | | ID OFFICE | Fax: | | | | | | CONSULTATION | [phone] | | | | | | NEW/ESTAB [...] [address] | [address] [place], [place] | (Primary Dx); Lumbar | | | | [place], [place] | [address] | stenosis; Lumbar | | | | [address] | | radicular pain; | | | | [phone] | | Midline low back | | [...] m the original. Sascha Mir DO [address] [facility], [address] [place] [address] FAX: NEUROSURGERY HISTORY AND PHYSICAL EXAMINATION CHIEF [...] has no apparent deficits with short or penitentiary memory. CRANIAL NERVES: II: Acuity is intact. [...] Intrinsics 5 5 Ulnar Intrinsics 5 5 Medical Terminologist Strength 5 5 Hip Flexion 5 5 [...]
--- OUTSIDE RECORDS SUMMARY | ~2020-04-02 | XMS | Encounter Summary ---
Demographics + + + | Address | [address] | | | [place] [address] | + + + | Home Phone [...] Author + + + | Author | [facility] | + + + | Organization | [facility] | + + + | Address | Unknown | + + + | Phone | Unavailable | + + + Support + + +---------+ + | Name | Relationship | Address | Phone | + + +---------+ + | Alisia Nina | ECON | Unknown | | + + +---------+ + Care Team Providers + +------+ + | Care Health Nurse Name | Role | Phone | [...] | | 2019 | | Center at [facility] [address] | | Review | | | | [address] | | | | | | for Health and | | | | | | Healing, [address] | | | | | | [place], [place] | | | | | | [address] | | | | | | [phone] | | | +--------+ + + + [...]
--- OUTSIDE RECORDS SUMMARY | ~2020-04-02 | XMS | Encounter Summary ---
Demographics + + + | Address | [address] | | | [place] [address] | + + + | Home Phone [...] Team Providers + +------+ + | Care Safety Assistant Name | Role | Phone | [...] | 2019 | on | Center at [facility] [address] | | | | | | [address] [facility] | | | | | | for Health and | | | | | | Healing, [address] | | | | | | [place], [place] | | | | | | [address] | | | | | | [phone] | | | +--------+ + + + [...]
--- OUTSIDE RECORDS SUMMARY | ~2020-04-02 | XMS | Encounter Summary ---
Demographics + + + | Address | [address] | | | [place] [address] | + + + | Home Phone [...] | Author | [facility] | | | and [place] | + + + | Organization | [facility] | | [...] [place] | | | | | [address] | | + + + + + | Pratibha Hester | ECON | Unknown | + | + + + + + | Demian Powell | ECON | Unknown | + | + + + + + Care Team Providers + +------+ + | Care Manager Media Name | Role | Phone | + [...] + + | 12/18/ | Telephone | [facility] | Jasiel Loo | Follow-up | | 2020 | | SLEEP DISORDER [address] | MD Michael [address] [place] | | | | | [address] [place] | [address] [place] | | | | | [place] [address] | [place] [address] | | | | | [phone] | [phone] | | | | | | | [...] 12/19/2019 12:55 PM PDTCalled the patient to [facility] her no show 12/12/[address] [...]
--- OUTSIDE RECORDS SUMMARY | ~2020-04-02 | XMS | Encounter Summary ---
Demographics + + + | Address | [address] | | | [place] [address] | + + + | Home Phone [...] [place] | | | | | [address] | | + + + + + | Pratibha Hester | ECON | Unknown | + | + + + + + | Demian Powell | ECON | Unknown | + | + + + + + Care Team Providers + +------+ + | Care Manager Qa Name | Role | Phone | + [...] [address] | [address] [place], [place] | lumbar fusion | | | | [place], [place] | [address] | | | | | [address] | | | | | | [phone] | | | +--------+ + + + [...]
--- OUTSIDE RECORDS SUMMARY | ~2020-04-02 | XMS | Encounter Summary ---
Demographics + + + | Address | [address] | | | [place] [address] | + + + | Home Phone [...] | Author | [facility] | | | and [place] | + + + | Organization | [facility] | | | and [...] [place] | | | | | [address] | | + + + + + | Pratibha Hester | ECON | Unknown | + | + + + + + | Demian Powell | ECON | Unknown | + | + + + + + Care Team Providers + +------+ + | Care Lighting Fixtures Decorator Name | Role | Phone | + +------+ + | Quentni Manriquez PA-C | MARCK | | + +------+ + Encounter Details +--------+ + + + + | Date | Type | Department | Care Team | Description | +--------+ + + + + | 01/15/ | Hospital | [facility] | Sascha Mir, | Status post lumbar | | 2015 | Encounter | MED CTR XRAY [address] | DO [address] | spinal fusion | | | | [place] | [address] | | | | | [place] [address] | [id number] | | | | | [phone] | | | +--------+ + + + [...] + + | Performing | Address | City[facility]State[facility] | Phone Number | | Organization | | | | + + + + + | [address] | [address] | [place] | [phone] | | [facility] | | [address] | | | - IMAGING | | | | + + + + + documented in this encounter Visit Diagnoses + + | Diagnosis | + + | Status post lumbar spinal fusion Arthrodesis status | + + documented in this encounter"
--- OUTSIDE RECORDS SUMMARY | ~2020-04-02 | XMS | Encounter Summary ---
Demographics + + + | Address | [address] | | | [place] [address] | + + + | Home Phone [...] [place] | | | | | [address] | | + + + + + | Pratibha Hester | ECON | Unknown | + | + + + + + | Demian Powell | ECON | Unknown | + | + + + + + Care Team Providers + +------+ + | Care Technician Automated Equipment Name | Role | Phone | + [...] + | 12/31/ | Telephone | [facility] | Sascha Mir, | Appointment | | 2014 | | NEUROSURGERY [address] | DO [address] | | | | | [address] | [address] [place], [place] | | | | | [place] | [id number] | | | | | [address] | | | | | | [phone] | | | +--------+ + + + [...] 12/31/2014 8:13 AM PDTPatient left message via [employer]: "Call ing to cancel appt for tomorrow 12/31. I don't have transportation." documented in this encounter Plan of Treatment Not on filedocumented as of this encounter Visit Diagnoses Not on filedocumented in this encounter
--- OUTSIDE RECORDS SUMMARY | ~2020-04-02 | XMS | Encounter Summary ---
Demographics + + + | Address | [address] | | | [place] [address] | + + + | Home Phone [...] [place] | | | | | [address] | | + + + + + | Pratibha Hester | ECON | Unknown | + | + + + + + | Demian Powell | ECON | Unknown | + | + + + + + Care Team Providers + +------+ + | Care Floor Coverings Salesperson Name | Role | Phone | + +------+ + PCP | Unavailable | + +------+ + Encounter Details +--------+ + + + + | Date | Type | Department | Care Team | Description | +--------+ + + + + | 05/31/ | Hospital | [facility] | | | | 1999 | Encounter | MED CTR MP INTRA OP | | | | | | [address] | | | | | | [place] | | | | | | [address] | | | | | | [phone] | | | +--------+ + + + [...]
--- OUTSIDE RECORDS SUMMARY | ~2020-04-02 | XMS | Encounter Summary ---
Demographics + + + | Address | [address] | | | [place] [address] | + + + | Home Phone [...] [place] | | | | | [address] | | + + + + + | Pratibha Hester | ECON | Unknown | + | + + + + + | Demian Powell | ECON | Unknown | + | + + + + + Care Team Providers + +------+ + | Care Operational Intelligence Analyst Name | Role | Phone | [...] + + | 02/14/ | Telephone | [facility] | Sascha Mir, | Other | | 2014 | | NEUROSURGERY [address] | DO [address] | | | | | [address] | [address] [place], [place] | | | | | [place] | [id number] | | | | | [address] | | | | | | [phone] | | | +--------+ + + + [...] PDTPatient returned call and left message with [employer] to call back. elephone Encounter - Lenka [...] between now and then. Thanks. elephone Willa veram - Elina Noonan Cert MA - 02/17/2015 [...] like this Rx to go to her [facility] pharmacy Next visit on: 03/07/15 at 1130 [...]
--- OUTSIDE RECORDS SUMMARY | ~2020-04-02 | XMS | Encounter Summary ---
Demographics + + + | Address | [address] | | | [place] [address] | + + + | Home Phone [...] [place] | | | | | [address] | | + + + + + | Pratibha Hester | ECON | Unknown | + | + + + + + | Demian Powell | ECON | Unknown | + | + + + + + Care Team Providers + +------+ + | Care Building Pressure Washer Name | Role | Phone | + +------+ + PCP | Unavailable | + +------+ + Encounter Details +--------+ + + + + | Date | Type | Department | Care Team | Description | +--------+ + + + + | 05/31/ | Hospital | [facility] | | | | 1999 | Encounter | MED CTR MP INTRA OP | | | | | | [address] | | | | | | [place] | | | | | | [address] | | | | | | [phone] | | | +--------+ + + + [...]
--- OUTSIDE RECORDS SUMMARY | ~2020-04-02 | XMS | Encounter Summary ---
Demographics + + + | Address | [address] | | | [place] [address] | + + + | Home Phone [...] [place] | + | | | | [place] | | | | | [address] | | + + + + + | Pratibha Hester | ECON | Unknown | + | + + + + + | Demian Powell | ECON | Unknown | + | + + + + + Care Team Providers + +------+ + | Care Developer Analyst Name | Role | Phone | [...] | Sascha Armendariz DO | [address] | | | | | Spondylolist | [address] | [place], | | | | | hesis of | [address] | [place] | | | | | lumbar | [place] | [address] | | | | | region S/P | [address] | Phone: | | | | | lumbar | Phone: | [phone] | | | | | fusion | [phone] | Fax: | | | | | Procedures | Fax: | [phone] | | | | | MRI Lumbar | [phone] | | | | | | Spine [...] | Sascha Armendariz DO | [address] | | | | | radicular | [address] | [place], | | | | | pain | [address] | [place] | | | | | Procedures | [place] | [address] | | | | | MRI Cervical | [address] | Phone: | | | | | Spine wo | Phone: | [phone] | | | | | Contrast | [phone] | Fax: | | | | | | Fax: | [phone] | | | | | | [phone] | | +--------+--------+ + + + + Reason for Visit + + + | Reason | Comments | + + + | Follow-up | 3-month post-op | + + + Encounter Details +--------+---------+ + + + | Date | Type | Department | Care Team | Description | +--------+---------+ + + + | 03/17/ | Office | [facility] | Sascha Mir, | Spondylolisthesis of | | 2015 | Visit | NEUROSURGERY [address] | DO [address] | lumbar region | | | | [address] | [address] [place], [place] | (Primary Dx); S/P | | | | [place], [place] | [phone] | lumbar fusion; | | | | [address] | | Cervical radicular | | | | [phone] | | pain | +--------+---------+ + + [...] [facility], [address] [place] [address] FAX: NEUROSURGERY FOLLOW-UP CHIEF COMPLAINT: Chief Complaint [...]
--- OUTSIDE RECORDS SUMMARY | ~2020-04-02 | XMS | Encounter Summary ---
Demographics + + + | Address | [address] | | | [place] [address] | + + + | Home Phone [...] [place] | | | | | [address] | | + + + + + | Pratibha Hester | ECON | Unknown | + | + + + + + | Demian Powell | ECON | Unknown | + | + + + + + Care Team Providers + +------+ + | Care Teasel Gig Operator Name | Role | Phone | [...] + | 12/10/ | Telephone | [facility] | Sascha Mir, | Other (surgery | | 2014 | | NEUROSURGERY [address] | DO [address] | reminder ) | | | | [address] [email or web address] 50 | [address] [place] | | | | | [place] | [address] | | | | | [address] | | | | | | [phone] | | | +--------+ + + + [...] do not wear jewelry, contact lenses, nail setswana (on fingers or toes), or make-up to surgery check-in. If you have dentures, or hearing aids please bring the cases to check-in. Medications instructions: Aspirin, Ibuprofen documented in this encounter Plan of Treatment Not on filedocumented as of this encounter Visit Diagnoses Not on filedocumented in this encounter"
--- OUTSIDE RECORDS SUMMARY | ~2020-04-02 | XMS | Encounter Summary ---
Demographics + + + | Address | [address] | | | [place] [address] | + + + | Home Phone [...] | Author | [facility] | | | and [place] | + + + | Organization | [facility] | | [...] [place] | | | | | [address] | | + + + + + | Pratibha Hester | ECON | Unknown | + | + + + + + | Demian Powell | ECON | Unknown | + | + + + + + Care Team Providers + +------+ + | Care Electronic Train Control Technician Name | Role | Phone | [...] | | | spondylolist | | [address] | | | | | hesis | | [place], | | | | | Acquired | | [place] [address] | | | | | spondylolist | | Phone: | | | | | hesis | | [phone] | | | | | Procedures | | Fax: | | | | | [place] | | [phone] | | | | | POST/POSTERO | [...] + + | 12/12/ | Hospital | [facility] | Sascha Mir, | Acquired | | 2015 | Encounter | MED CTR XRAY [address] | DO [address] | spondylolisthesis | | | | [place] | [address] | | | | | [place] [address] | [address] | | | | | [phone] | | | +--------+ + + + [...] Radiologist interpretation, please see Chart Review. | [facility] | | | [facility] | | | [facility] | | | - IMAGING | + + + + + + + + | Performing | Address | City/State/Zipcode | Phone Number | | Organization | | | | + + + + + | [address] | [address] | [place] | [phone] | | [facility] | | [address] | | | - IMAGING | | | | + + + + + documented in this encounter Visit Diagnoses + + | Diagnosis | + + | Acquired spondylolisthesis | + + documented in this encounter"
--- OUTSIDE RECORDS SUMMARY | ~2020-04-02 | XMS | Encounter Summary ---
Demographics + + + | Address | [address] | | | [place] [address] | + + + | Home Phone [...] [place] | | | | | [address] | | + + + + + [...] | | | | S/P lumbar | [address] | | | | | | fusion | Phone: | | | | | | | [phone] | | | | | | | Fax: | | | | | | | [phone] | | +--------+ + + + + [...] | | | | | radicular | [address] | [address] Phone: | | | | | pain | Phone: | [phone] | | | | | | [phone] | Fax: | | | | | | Fax: | [phone] | | | | | | [phone] | | +--------+ + + + + + Encounter Details +--------+---------+ + + + | Date | Type | Department | Care Team | Description | +--------+---------+ + + + | 07/22/ | Office | [facility] | Roger Triplett | Chronic low back | | 2014 | Visit | PHYSIATRY [address] | TMD [address] | pain (Primary Dx); | | | | [address] | [place] | Lumbar | | | | [place] | [id number] | radiculopathy; S/P | | | | [address] | | lumbar fusion; | | | | [phone] | | Sacroiliitis; Morbid | | | | | | obesity due to | | | | | | excess calories | | | | | | ([facility]) | +--------+---------+ + + + Social History [...] 8:21 AM PST Roger Triplett MD [address] [facility], [address] [place], [place] [address] FAX: PHYSICAL MEDICINE AND REHABILITATION H&P CHIEF [...] 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 She has appropriate fund of knowledge [...] region. Lumbar facet loading was negative. Stren gt testing showed 5/5 strength throughout the lower [...]
--- OUTSIDE RECORDS SUMMARY | ~2020-04-02 | XMS | Encounter Summary ---
Demographics + + + | Address | [address] | | | [place] [address] | + + + | Home Phone [...] [place] | | | | | [address] | | + + + + + | Pratibha Hester | ECON | Unknown | + | + + + + + | Demian Powell | ECON | Unknown | + | + + + + + Care Team Providers + +------+ + | Care Supplemental Manager Name | Role | Phone | [...] | | | CASEY PALMA | [place], [place] | | | | | [place], [place] | [address] | | | | | [address] | | | | | | [phone] | | | +--------+ + + + [...] MV A Ollie: 0.67 m/s MV Dec [place]: 3.90 m/s2 MV | | | DecT: 192.12 ms MV E Ollie: 0.75 m/s MV E/A Ratio: 1.11 MV | | | PHT: 55.71 ms MVA By PHT: 3.94 cm2 Septal e': 0.04 m/s | | | Septal E/e': 15.99 Lateral e': 0.06 m/s Lateral E/e': 11.01 | | | [employer] Silver[employer] Salesperson: MEME Authenticated by: Itzel Mendoza Report | [...] cmLVIDd: 4.40 cmLVPWd: 0.94 cmLVOT Area: 3.61 [id number] Diam: 2.14 cm%FS: 30.32 | | %EF(Teich): [...] mlLAESV Index (A-L): 20.19 ml/m2LAAs A2C: 13.00 [id number] A-L | | A2C: 36.94 mlLALs A2C: 3.88 cmLAAs A4C: 15.93 [id number] A-L A4C: 49.93 mlLALs | | A4C: 4.31 cmRAAs: 10.82 [id number] A-L: 24.00 mlRAESV MOD: 22.53 mlRALs: 4.14 | | cmTAPSE: 1.61 cmAV maxP.99 mmHgAV meanP.27 mmHgAV Vmax: 1.73 m/Trang | | Vmean: 1.19 m/Trang VTI: 27.27 cmAVA Vmax: 2.35 cm2AVA (VTI): 2.65 yn2OFJF (Vmax): | | 0.00 cm2/m2AVAI (VTI): 0.00 cm2/m2LVOT maxP.08 mmHgLVOT meanP.38 | | mmHgLVSI Dopp: 32.31 ml/m2LVSV Dopp: 72.37 mlLVOT Vmax: 1.12 m/sLVOT Vmean: 0.72 | | m/sLVOT VTI: 20.04 cmMV A Ollie: 0.67 m/sMV Dec Schuyl[place]: 3.90 m/s2MV DecT: 192.12 | | msMV E Ollie: 0.75 m/sMV E/A Ratio: 1.11MV PHT: 55.71 msMVA By PHT: 3.94 rv9Pgjwki | | e': 0.04 m/sSeptal E/e': 15.99Lateral e': 0.06 m/sLateral E/e': 11.01 | | [employer] And Silver[employer] Salesperson: MEMEAuthenticated by: Itzel [facility] Date/Time: 06-01-2018 19:30:56 | | IMPRESSION: 1. [...] A Ollie: 0.67 m/s | |MV Dec [place]: 3.90 m/s2 | |MV DecT: 192.12 ms | |MV E Ollie: 0.75 m/s | |MV E/A Ratio: 1.11 | |MV PHT: 55.71 ms | |MVA By PHT: 3.94 cm2 | |Septal e': 0.04 m/s | |Septal E/e': 15.99 | |Lateral e': 0.06 m/s | |Lateral E/e': 11.01 | | | |[employer] And Silver[employer] Salesperson: DBS | |Authenticated by: Itzel Mendoza | [...]
--- OUTSIDE RECORDS SUMMARY | ~2020-04-02 | XMS | Encounter Summary ---
Demographics + + + | Address | [address] | | | [place] [address] | + + + | Home Phone [...] [place] | | | | | [address] | | + + + + + | Pratibha Hester | ECON | Unknown | + | + + + + + | Demian Powell | ECON | Unknown | + | + + + + + Care Team Providers + +------+ + | Care Bus Aide Name | Role | Phone | + +------+ + | Quentin Manriquez PA-C | MARCK | | + +------+ + Encounter Details +--------+ + + + + | Date | Type | Department | Care Team | Description | +--------+ + + + + | 12/05/ | Preadmit | [facility] | Sascha Mir, | Bilateral lumbar | | 2015 | Visit | MED CTR [facility] | DO [address] | radiculopathy; HIP | | | | CLINIC [address] | [address] [place], [place] | PAIN, LEFT, CHRONIC; | | | | [place], [place] | [address] | Spondylolisthesis | | | | [address] | | of lumbar region | | [...] [address] | [place] | [phone] | | [facility] | | [address] | | | - LABORATORY | | [...] [address] | [place] | [phone] | | [facility] | | [address] | | | - LABORATORY | | [...] 11 | 7 - 18 mg/dL | [facility] | | | | | | [facility] | | | | | | MEDICAL | | | | | | CENTER - | | | | | | LABORATORY | | + + + + + + | Creatinine | 0.71 | 0.60 - 1.30 | [facility] | | | | | mg/dL | [facility] | | | | | | MEDICAL | | | | | | CENTER - | | | | | | LABORATORY | | + + + + + + | eGFR, | >60Comment: GLOMERULAR | >=60 | [facility] | | | non- | FILTRATION | mL/min/1.73m2 | [facility] | | | [place] | RATE,ESTIMATED | | MEDICAL | | | | mL/min/1.68z6Osow than | | CENTER - | | [...] + | [facility] | [address] | [place] | [phone] | | [facility] | | [address] | | | - LABORATORY | | [...] ST. | [address] | [place] | [phone] | | [facility] | | [address] | | | - LABORATORY | | [...]
--- OUTSIDE RECORDS SUMMARY | ~2020-04-02 | XMS | Encounter Summary ---
Demographics + + + | Address | [address] | | | [place] [address] | + + + | Home Phone [...] Team Providers + +------+ + | Care Sports Book Writer Name | Role | Phone | + [...] | | 2019 | | Center at [facility] [address] | | Review | | | | [address] [place] | | | | | | for Health and | | | | | | Healing, [address] | | | | | | [place], [place] | | | | | | [address] | | | | | | [phone] | | | +--------+ + + + [...]
--- OUTSIDE RECORDS SUMMARY | ~2020-04-02 | XMS | Encounter Summary ---
Demographics + + + | Address | [address] | | | [place] [address] | + + + | Home Phone [...] [place] | | | | | [address] | | + + + + + | Pratibha Hester | ECON | Unknown | + | + + + + + | Demian Powell | ECON | Unknown | + | + + + + + Care Team Providers + +------+ + | Care Stonework Supervisor Name | Role | Phone | + +------+ + | Quentin Manriquez PA-C | MARCK | | + +------+ + Reason for Visit + +--------+ + | Reason | Onset | Comments | | | Date | | + +--------+ + | Medication Refill | 01/16/ | | | | 2014 | | + +--------+ + Encounter Details +--------+--------+ + + + | Date | Type | Department | Care Team | Description | +--------+--------+ + + + | 01/16/ | Refill | [facility] | Lenka Mann | Medication Refill | | 2015 | | NEUROSURGERY [address] | L, Medical | | | | | [address] | Healthcare Educator | | | | | [place] | | | | | | [address] | | | | | | [phone] | | | +--------+--------+ + + + [...] - Lenka Mann Master of Arts - 01/16/2015 4:08 PM ANNETTE Foster. Approved Zofran 4mg disintigrating tabs. #20. With no refills. I called this into the [facility] we have on file. Spoke with German at the Pharmacy. Called patient to inform her that I called in her Rx at her pharmacy we have on file. Merry magdaleno verbalized understanding. ele phone Encounter - Lenka Mann Master of Arts - 01/16/2015 3:53 PM PDTMedication R efill Request Procedure: L5-S1 Fusion Date of Surgery: 12/12/14 Medication requested: Zofran 4mg. Current intake: 1 tablet 2x's a day Date of last refill: We have not prescribed yet. Her PCP only gives her 10 pills at a time . She states that the dissolvable one's we gave in hospital work very well for her. # of tabs left before medication runs out: 2 more from [facility] Where is pain located?: Constant nausea Type of pain (constant, intermittent, sharp, dull)?: constant nausea, vertigo Send in the mail or call in to preferred pharmacy? Call in to pharmacy, [facility] in [place] ([phone] or [phone]) She said that at her appointment yesterday (01/15/15) she was ok on her narcotics, but forgo t to ask about the Zofran. Please approve/deny 15 4:01 PM PDTdocumented in this encounter Plan of Treatment Not on filedocumented as of this encounter Visit Diagnoses + + | Diagnosis | + + | Nausea - Primary Nausea alone | + + documented in this encounter"
--- OUTSIDE RECORDS SUMMARY | ~2020-04-02 | XMS | Encounter Summary ---
Demographics + + + | Address | [address] | | | [place] [address] | + + + | Home Phone [...] [place] | | | | | [address] | | + + + + + | Pratibha Hester | ECON | Unknown | + | + + + + + | Demian Powell | ECON | Unknown | + | + + + + + Care Team Providers + +------+ + | Care Stove Bottom Worker Name | Role | Phone | [...] [address] | [address] [place], [place] | intervertebral disc | | | | [place], [place] | [address] | without myelopathy | | | | [address] | | (Primary Dx) | | | | [phone] | | | +--------+ + + + [...] Spine 4 + Vw (09/26/2014 9:21 AM [facility]) + + | Specimen | + + | | + + + + + | Narrative | Performed At | + + + | EXAM: XR LUMBAR SPINE 4 + [facility]/26/2014 8:51 AM [facility] | | HISTORY:Back pain COMPARISON: MRI from [facility] dated | [facility] | | June 25, 2014 and [...] | 09/26/2014 8:51 AMHISTORY:Back painCOMPARISON: MRI from [facility] dated | | June 25, 2014 [...] [address] | [place] | [phone] | | [facility] | | [address] | | | - IMAGING | | | | + + + + + documented in this encounter Visit Diagnoses + + | Diagnosis | + + | 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
--- OUTSIDE RECORDS SUMMARY | ~2020-04-02 | XMS | Encounter Summary ---
Demographics + + + | Address | [address] | | | [place] [address] | + + + | Home Phone [...] [place] | | | | | [address] | | + + + + + | Pratibha Hester | ECON | Unknown | + | + + + + + | Demian Powell | ECON | Unknown | + | + + + + + Care Team Providers + +------+ + | Care Enterprise Systems Architect Name | Role | Phone | [...] | Sleep | sleep apnea | [place] [address] | MD Michael [address] | | | | Medicine / | (adult) | [address] | [address] | | | | Sleep | (pediatric) | [place], | [facility] | | | | Medicine | | [place] [address] | [place], [place] | | | | | consult,pw@0 | Phone: | [phone] Phone: | | | | | 930, no ss, | [phone] | [phone] | | | | | no cpap/AO | Fax: | Fax: | | | | | Procedures | [phone] | [phone] | | | | | NEW PATIENT | | | +--------+--------+ + + + + Encounter Details +--------+ + + + + | Date | Type | Department | Care Team | Description | +--------+ + + + + | 12/11/ | Virtual | [facility] | Jasiel Loo | NO SHOW (Primary Dx) | | 2020 | Office | SLEEP DISORDER [address] | MD Michael [address] | | | | Visit | [address] [place] | [address] [facility] | | | | | [place] [address] | [place] [address] | | | | | [phone] | [phone] | | | | | | | [...]
--- OUTSIDE RECORDS SUMMARY | ~2020-04-02 | XMS | Encounter Summary ---
Demographics + + + | Address | [address] | | | [place] [address] | + + + | Home Phone [...] [place] | | | | | [address] | | + + + + + | Pratibha Hester | ECON | Unknown | + | + + + + + | Demian Powell | ECON | Unknown | + | + + + + + Care Team Providers + +------+ + | Care Occup Therapist Name | Role | Phone | [...] [address] | [address] [place], [place] | intervertebral disc | | | | [place], [place] | [address] | without myelopathy | | | | [address] | | (Primary Dx) | | | | [phone] | | | +--------+ + + + [...]
--- OUTSIDE RECORDS SUMMARY | ~2020-04-02 | XMS | Encounter Summary ---
Demographics + + + | Address | [address] | | | [place] [address] | + + + | Home Phone [...] Team Providers + +------+ + | Care Salt Washer Harvesting Station Name | Role | Phone | + +------+ + | Grcaie Lewis PA-C | PCP | | + +------+ + Encounter Details +--------+ + + + + | Date | Type | Department | Care Team | Description | +--------+ + + + + | 05/03/ | Documentati | Digestive Health | Clinic, Surgery | | | 2019 | on | Center at [facility] [address] | | | | | | [address] [facility] | | | | | | for Health and | | | | | | Healing, [address] | | | | | | [place], [place] | | | | | | [address] | | | | | | [phone] | | | +--------+ + + + [...]
--- OUTSIDE RECORDS SUMMARY | ~2020-04-02 | XMS | Encounter Summary ---
Demographics + + + | Address | [address] | | | [place] [address] | + + + | Home Phone [...] Team Providers + +------+ + | Care Circuit Breaker Assembler Name | Role | Phone | [...] on | Otology Services at | [facility] | | | | | [facility] [address] [place], [place] | | | | | [address] | [address] | | | | | Physician's | | | | | | Pavilion, 2nd floor | | | | | | [place], [place] | | | | | | [address] | | | | | | [phone] | | | +--------+ + + + [...]
--- OUTSIDE RECORDS SUMMARY | ~2020-04-02 | XMS | Encounter Summary ---
Demographics + + + | Address | [address] | | | [place] [address] | + + + | Home Phone [...] [place] | | | | | [address] | | + + + + + | Pratibha Hester | ECON | Unknown | + | + + + + + | Demian Powell | ECON | Unknown | + | + + + + + Care Team Providers + +------+ + | Care Enchilada Maker Name | Role | Phone | [...] | | | n | spine | [address] | [address] [place] | | | | | Spondylolist | [facility] [place], | [facility] [place] | | | | | hesis of | [place] [address] | [address] Phone: | | | | | lumbar | Phone: | [phone] | | | | | region | [phone] | Fax: | | | | | Degenerative | [phone] Fax: | [phone] | | | | | disc | | | | | | | disease, | [phone] | | | | | | lumbar [...] | | | | | | | ([facility]) | | | | | | | Sacroiliitis | | | | | | | ([facility]) | | | | | | | Trochanteric | | | | | | | bursitis | | | | | | | Diabetes | | | | | | | mellitus | | | | | | | ([facility]) | | | | | | | [...] | | | | | spine | [address] | | | | | | Spondylolist | [place], | | | | | | hesis of | [place] [address] | | | | | | lumbar | Phone: | | | | | | region | [phone] | | | | | | Degenerative | [phone] Fax: | | | | | | disc | | | | | | | disease, | [phone] | | | | | | lumbar [...] + + | 10/27/ | Office | [facility] | Denilson Jorge | Pars defect of | | 2012 | Visit | NEUROSURGERY [address] | F, MD [address] | lumbar spine L5-S1 | | | | [address] | [place], [place] | (Primary Dx); | | | | [place] | [address] | Spondylolisthesis of | | | | [address] | [phone] | lumbar region | | | | [phone] | | L5-S1; Degenerative | | | [...] | | | | | | mellitus ([facility]); | | | | | | Asthma; [...] slip forward. This is called spondylolisthes is. [phone] [facility], [address] [place] [address], [place] [address]. All rights reserve d. This information is not intended as a substitute for professional medical care. Always fo llow your healthcare professional's instructions. documented in this encounter Progress Notes Denilson Jorge MD - 10/27/2012 11:58 AM PDTFormatting of this note might be differen t from the original. Denilson Jorge MD [address] [place] [address], [address] [place] [address] FAX: NEUROSURGERY FOLLOW-UP CHIEF COMPLAINT: Lumbar spondylolisthesis [...] has no apparent deficits with short or manager terminal memory. CRANIAL NERVES: Fundoscopic Exam: The optic [...] Intrinsics 5 5 Ulnar Intrinsics 5 5 Manager Competitive Intelligence Strength 5 5 Hip Flexion 5 5 [...] obesity | | | | | | ([facility]) Sacroiliitis | | | | | | ([facility]) Trochanteric | | | | | | bursitis Diabetes | | | | | | mellitus ([facility]) | | | | | | Asthma [...] obesity | | | | | | ([facility]) Sacroiliitis | | | | | | ([facility]) Trochanteric | | | | | | bursitis Diabetes | | | | | | mellitus ([facility]) | | | | | | Asthma [...]
--- OUTSIDE RECORDS SUMMARY | ~2020-04-02 | XMS | Encounter Summary ---
Demographics + + + | Address | [address] | | | [place] [address] | + + + | Home Phone | | + + + | Preferred Language | Unknown | + + + | Marital Status | Single | + + + | Shinto Affiliation | 1041 | + + + | Race | White | + + + | Ethnic Group | Not or | + + + Author + + + | Author | [facility] | | | and [place] | + + + | Organization | [facility] | | [...] [place] | | | | | [address] | | + + + + + | Pratibha Hester | ECON | Unknown | + | + + + + + | Demian Powell | ECON | Unknown | + | + + + + + Care Team Providers + +------+ + | Care Hearing Aid Repairer Name | Role | Phone | [...] | 06/11/ | Telephone | [facility] | Sascha Mir, | Other (Med refill) | | 2014 | | NEUROSURGERY [address] | DO [address] | | | | | [address] | [address] [place] | | | | | [place] | [phone] | | | | | [address] | | | | | | [phone] | | | +--------+ + + + [...] that her Rx's were c alled into [facility]. I explained to her that I [...] 06/11/2015 1:19 PM PSTPatient left message via [employer]: "Need refill of Zofran called into [email or web address]Electronically signed by Melida Lindquist at 015 1:20 PM PSTdocumented in this encounter Plan of Treatment Not on filedocumented as of this encounter Visit Diagnoses + + | Diagnosis | + + | Nausea - Primary Nausea alone | + + documented in this encounter
--- OUTSIDE RECORDS SUMMARY | ~2020-04-02 | XMS | Encounter Summary ---
Demographics + + + | Address | [address] | | | [place] [address] | + + + | Home Phone [...] Team Providers + +------+ + | Care Trimmer Operator Three Knife Name | Role | Phone | + [...] | | | | | [address] floor [place], | | | | | | [place] [address] | | | | | | [phone] | | | +--------+ + + + [...] 1st available Any Provider Resources: None Location: [facility] Type of Sedation: Anesthesia; Reason: Increased tolerance of pain meds. Type of PMC appointment: Phone Preparation: Jeffrey Plus - None Other Comments: Patient with obesity and chronic pain, EGD and colonoscopy requested for ev aluation. elephone Zack Durand - 10/19/2018 2:44 PM PDTFormatting of this note might be different fro m the original. Demian Nina [id number] REFERRAL FOR REVIEW: Reviewing Provider: Rommel Pina [...]
--- OUTSIDE RECORDS SUMMARY | ~2020-04-02 | XMS | Encounter Summary ---
Demographics + + + | Address | [address] | | | [place] [address] | + + + | Home Phone [...] [place] | | | | | [address] | | + + + + + | Pratibha Hester | ECON | Unknown | + | + + + + + | Demian Powell | ECON | Unknown | + | + + + + + Care Team Providers + +------+ + | Care Pile Driving Technician Name | Role | Phone | [...] | | [address] | [place] | | | | | [place] | | | | | | [address] | | | | | | [phone] | | | +--------+--------+ + + + [...] no refills. I called this into the [facility] we have on file. Spoke with [...] before medication runs out: 2 more from [facility] Where is pain located?: Constant nausea Type of pain (constant, intermittent, sharp, dull)?: constant nausea, vertigo Send in the mail or call in to preferred pharmacy? Call in to pharmacy, [facility] [place] ([phone] or [phone]) She said that at her appointment yesterday [...]
--- OUTSIDE RECORDS SUMMARY | ~2020-04-02 | XMS | Encounter Summary ---
Demographics + + + | Address | [address] | | | [place] [address] | + + + | Home Phone [...] Team Providers + +------+ + | Care Rice Drier Operator Name | Role | Phone | [...] | | 2019 | | Center at [facility] [address] | | Review | | | | [address] | | | | | | for Health and | | | | | | Healing, [address] | | | | | | [place], [place] | | | | | | [address] | | | | | | [phone] | | | +--------+ + + + [...]
--- OUTSIDE RECORDS SUMMARY | ~2020-04-02 | XMS | Encounter Summary ---
Demographics + + + | Address | [address] | | | [place] [address] | + + + | Home Phone [...] [place] | | | | | [address] | | + + + + + | Pratibha Hester | ECON | Unknown | + | + + + + + | Demian Powell | ECON | Unknown | + | + + + + + Care Team Providers + +------+ + | Care Testing Machine Operator Name | Role | Phone [...] | | spondylolist | | [address] | | | | | hesis | | [place], | | | | | Acquired | | [place] [address] | | | | | spondylolist | | Phone: | | | | | hesis | | [phone] | | | | | Procedures | | Fax: | | | | | MA ARTHDSIS | | [phone] | | | | | POST/POSTERO | [...] + | 12/12/ | Anesthesia | [facility] | Laz Douglass | | | 2015 | Event | MED CTR OR INTRA OP | MD Jennifer [address] | | | | | [address] | [place] | | | | | [place] | [phone] | | | | | [address] | | | | | | [phone] | | | +--------+ + + + [...] +----+---+ + + | | 0 | [place] | | | | 9 | 43-degrees [...] +----+---+ + + | | 1 | [place] off | | | | 2 | [...] EVALUATION Demian Nina 44 y.o. female 1970 [id number] Procedure(s) L5-S1 Transforaminal Lumbar Interbody Fusion (N/A [...] by Laz Douglass MD 12/12/2014 12:43 [facility] nesthesia Preproc edure Evaluation - Laz Douglass MD - 12/12/2014 8:14 AM PDTFormatting of this note m ight be different from the original. ANESTHESIA PREANESTHESIA EVALUATION Demian Nina 44 y.o. female 1970 [id number] Procedure(s): L5-S1 Transforaminal Lumbar Interbody Fusion (N/A ) Medical history, anesthesia, medications, allergy histories reviewed. Labs reviewed. ROS / Med History Ane (+) PONV. (-) difficult intubation, malignant hyperthermia . NPO status verified. CV (+) CAD, past CT.(-) hypertension, CHF, congenital heart disease, pulmonary hypertension, [...] | | | | to Incision, [facility] 12/12/14 | | | | | | [...] mg | | | | PRN, [facility] 12/12/14 at 1010, | | 15 10:10 [...] 11:38 | | | | | [facility] 12/12/14 at 1138, | | AM PDT | | | | | Anesthesia Intra-op | | | | | | + +-------+ +--------+---+---+ +---+---+ | | | +---+---+ + +-------+ +--------+---+---+ | glycopyrrolate (ROBINUL) | Given | 12/13/19 | 0.2 mg | | | | injection Intravenous, PRN, | | 15 11:32 | | | | | Secretions, [facility] 12/12/14 | | AM PDT | | [...] | | | | | CONTINUOUS, [facility] 12/12/14 | | AM PDT | | [...]
--- OUTSIDE RECORDS SUMMARY | ~2020-04-02 | XMS | Encounter Summary ---
Demographics + + + | Address | [address] | | | [place] [address] | + + + | Home Phone [...] Providers + +------+ + | Care Draw End Hand Name | Role | Phone | [...] | | | | | Procedures | [place], | and Healing, | | | | | PHYSICAL | [place] | Building [address], | | | | | THERAPY | [address] | 1st Floor | | | | | REFERRAL | Phone: | [place], [place] | | | | | | [phone] | [address] | | | | | | Fax: | Phone: | | | | | | [phone] | [phone] | | | | | | | Fax: | | | | | | | [phone] | +--------+--------+ + + + + Encounter [...] (Primary Dx) | | | | [facility] | Ave [facility], [place] | | | | | [address] | [address] | | | | | [facility] | | | | | | and Healing, | | | | | | [address] | | | | | | [place], [place] | | | | | | [address] | | | | | | [phone] | | | +--------+---------+ + + + [...] children or pets No bending to load buckle frame shaper No carrying laundry basket No bending to [...] - 06/27/2019 11:45 AM PST Insurance: Payor: [facility] [place] / Plan: [facility] [place] / Product Type: Medicaid / Non-Medicare [facility] PHYSICAL THERAPY EVALUATION Past Medical History: [...] person here for pre-op appointment for b [facility] surgical program. Activity limitations and [...] Log roll technique Strength training: Access Code: [email or web address] URL: [email or web address] Date: 06/27/2019 Prepared by: Dennise Gil Exercises [...] Moderate - Moderate complexity Complexity: Moderate - 34745 The patient requires services that can be [...] in their status. Edith Gil PT, DPT [facility] PHYSICAL THERAPY SERVICES AT [facility] Scheduled Appointment time: 11:45 AM The patient was seen for a total of 40 minutes of treatment time. 40 minutes was in direct contact care as described above and on completed flow sheets. Treatment Interventions duration in minutes: Procedure:Physical Therapy Evaluation Authorization information for first visit and progress reports Procedure Codes: Re-evaluation 47231, Therapeutic Exercise 53411, Manual Therapy 17982, Th erapeutic Activities 69827, Neuromuscular Reeducation 52808, Gait Training 10917 and Self-ca re ADL 26961 Minutes per session: 45 Total number of visits: 1 Frequency: discharge Duration: n/a (must exceed or match Medicare service period request) Service period from: 06/27/2019 to: - (Medicare must match duration or be no greater than 90 days if proposed duration is greater than 3 months) Start of care: 06/27/2019 Referral information Authorizing Provider: DIPESH RIDLEY [[id number]] Onset/Referral Date: 05/03/19 Primary/Referral Diagnosis: No diagnosis found. Next progress report 08/26/2019 Insurance: Payor: [facility] [place] / Plan: [facility] [place] / Product Type: Medicaid / Number [...]
--- OUTSIDE RECORDS SUMMARY | ~2020-04-02 | XMS | Encounter Summary ---
Demographics + + + | Address | [address] | | | [place] [address] | + + + | Home Phone [...] Providers + +------+ + | Care Safety Inspector Name | Role | Phone | + +------+ + | Gracie Lewis PA-C | PCP | | + +------+ + Encounter Details +--------+ + + + + | Date | Type | Department | Care Team | Description | +--------+ + + + + | 04/24/ | Abstract | [facility] | Clinic, Surgery | | | 2019 | | [place] [address] [address] | | | | | | [address] [facility] | | | | | | for Health and | | | | | | Healing, [address] | | | | | | [place], [place] | | | | | | [address] | | | | | | [phone] | | | +--------+ + + + [...]
--- OUTSIDE RECORDS SUMMARY | ~2020-04-02 | XMS | Encounter Summary ---
Demographics + + + | Address | [address] | | | [place] [address] | + + + | Home Phone [...] [place] | | | | | [address] | | + + + + + | Pratibha Hester | ECON | Unknown | + | + + + + + | Demian Powell | ECON | Unknown | + | + + + + + Care Team Providers + +------+ + | Care Balancing Machine Operator Name | Role | Phone [...] + | 12/23/ | Telephone | [facility] | Sascha Mir, | Other (Medication | | 2014 | | NEUROSURGERY [address] | DO [address] | request) | | | | [facility] [address] | [address] [place] [place] | | | | | [place] | [address] | | | | | [address] | | | | | | [phone] | | | +--------+ + + + [...] visit is on 01/15/15. Please advise. ELINA NOONAN elephone Encounjoaquin r Karis Montano - 12/24/2014 8:36 AM PDTPatient returned call and left message via [email or web address] service to call back. elephone Encounter - Elina Noonan Cert MA - 12/23/2014 4:04 PM PDTCall returned to samy saenz LVM [id number] signed by Bhanu Matias MA at 12/23/2014 4:04 PM PDTTelephone Encounter - Melida Lindquist - 12/23/2014 1:43 PM PDTPatient returned call. elephone Encounter - Elina Noonan Cert MA - 12/23/2014 9:23 AM PDTReturned call to patient. LVM. Requested call back. ELINA NOONAN elephone Encounte Melida Parikh - 12/23/2014 9:16 AM PDTPatient left message via [employer]: "Plea se call. I want to switch to fentanyl patch instead of percocet." documented in this encounter Plan of Treatment Not on filedocumented as of this encounter Visit Diagnoses Not on filedocumented in this encounter
--- OUTSIDE RECORDS SUMMARY | ~2020-04-02 | XMS | Encounter Summary ---
Demographics + + + | Address | [address] | | | [place] [address] | + + + | Home Phone [...] | | ([facility] at [facility] [address] | [facility] | | | | | Jennifer Schreiber | [place], [place] | | | | | Mailcode: [place] | [address] | | | | | [facility] and | [phone] | | | | | [facility] 2 | | | | | | [place], [place] | | | | | | [address] | | | | | | [phone] | | | +--------+ + + + [...]
--- OUTSIDE RECORDS SUMMARY | ~2020-04-02 | XMS | Encounter Summary ---
Demographics + + + | Address | [address] | | | [place] [address] | + + + | Home Phone [...] Providers + +------+ + | Care Medical Practice Manager Name | Role | Phone | [...] + + | 05/08/ | Emergency | [facility] Emergency | Omid Moser MD | | | 2008 | | Department [address] | [address] [facility] | | | | | [address] | [place] | | | | | [facility] | [place], [place] | | | | | [place], [place] | [address] | | | | | [address] | [phone] | | | | | [phone] | | | +--------+ + + + [...] be followed carefully by your caregiver or press maintainer. 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 You do not have pain relief from prescribed medications. Your condition is worsening or has changed from what originally brought you in. [facility] Patient Information 2007 Social Strategy 1. documented in this encounter ED Notes Josefina [...] her pcp when she returns home to [place] to discuss any ongoing pain issues if [...]
--- OUTSIDE RECORDS SUMMARY | ~2020-04-02 | XMS | Encounter Summary ---
Demographics + + + | Address | [address] | | | [place] [address] | + + + | Home Phone [...] [place] | | | | | [address] | | + + + + + | Pratibha Hester | ECON | Unknown | + | + + + + + | Demian Powell | ECON | Unknown | + | + + + + + Care Team Providers + +------+ + | Care Valve Repairer Name | Role | Phone | [...] | | [address] | [address] | | | | | [place] | [place] | | | | | [address] | [address] | | | | | [phone] | | | +--------+ + + + [...]
--- OUTSIDE RECORDS SUMMARY | ~2020-04-02 | XMS | Encounter Summary ---
Demographics + + + | Address | [address] | | | [place] [address] | + + + | Home Phone [...] + + | Author | [facility] | | | and [place] | + + + | Organization | [facility] | | [...] [place] | | | | | [address] | | + + + + + | Pratibha Hester | ECON | Unknown | + | + + + + + | Demian Powell | ECON | Unknown | + | + + + + + Care Team Providers + +------+ + | Care Superintendent Landfill Operations Name | Role | Phone | + [...] + | 06/23/ | Telephone | [facility] | Sascha Mir, | Other | | 2014 | | NEUROSURGERY [address] | DO [address] | | | | | [address] | [address] [place], [place] | | | | | [place] | [id number] | | | | | [address] | | | | | | [phone] | | | +--------+ + + + [...] explained to her the type of messages [employer] has been sending out o ffice. She [...] 06/24/2015 8:17 AM PSTVM left for patient career developer for Dr. Manriquez today requesting a call back ELINA FAIRBANKS elephone EncounElina Hearn Cert MA - 06/23/2015 11:25 AM PSTVM left for Dr. Manriquez's nurse boby bronw a call back to discuss recent emails from the patient. ELINA FAIRBANKS documented in this encounter Plan of Treatment Not on filedocumented as of this encounter Visit Diagnoses Not on filedocumented in this encounter"
--- OUTSIDE RECORDS SUMMARY | ~2020-04-02 | XMS | Encounter Summary ---
Demographics + + + | Address | [address] | | | [place] [address] | + + + | Home Phone [...] [place] | | | | | [address] | | + + + + + | Pratibha Hester | ECON | Unknown | + | + + + + + | Ana Maria Powell | ECON | Unknown | + | + + + + + Care Team Providers + +------+ + | Care Hand Etcher Helper Name | Role | Phone | [...] Procedures | MD [address] | | | | | MRI Lumbar | [address] | [address] [place] | | | | | Spine wo | [place], | [place] | | | | | Contrast | [place] [address] | [address] | | | | | | Phone: | Phone: | | | | | | [phone] | | | | | | | [phone] Fax: | Fax: | | | | | | | | | | | | | [phone] | | +--------+--------+ + + + + Encounter Details +--------+ + + + + | Date | Type | Department | Care Team | Description | +--------+ + + + + | 08/23/ | Orders Only | [facility] | Denilson Jorge | Back pain (Primary | | 2012 | | NEUROSURGERY [address] | F, [address] | Dx) | | | | [address] | St [place] | | | | | [place] | [address] | | | | | [address] | [phone] | | | | | [phone] | | | +--------+ + + + [...] Performed At | + + + | [facility] Diagnostic Imaging | GUILD | | Department [address] [place] [address] | [facility] | | [ rep ct sidney1+2] [ rep [facility] | | [facility]] Signed | - IMAGING | | | | | Patient Name: ANA MARIA TURCIOS Physician: | | | LAUREN.01 : 1970 Age: 42 Sex: F Unit #: [id number] | | | Exam Date: 09/08/12 Location: [facility] | | | Report #: [id number] Page: | | | %(RAD)RES..mtdd.print.filter("pg") of %(RAD) | | | RES..mtdd.print.filter("tpg") | | | | | | Accession Number: [id number] | | | UNENHANCED MRI LUMBAR SPINE, [...] Transcribed | | | Date/Time: 09/08/2012 12:56 Medical Assistant Internal Medicine: | | | <<Signature on File>> | | | Jayden Wyatt | | | MD Rush09/09/12 6865 <Electronically signed by Jayden Beverly MD> | | | Jayden Beverly MD 09/08/12 1234 Medical Assistant Internal Medicine: | | | Wyliox Hohfukbbidtys87/01/13 1256 Denilson Jorge, | | | MD | | + + + + + + + + | Performing | Address | City/State/Zipcode | Phone Number | | Organization | | | | + + + + + | [facility] | [address] | [place] | [phone] | | [facility] | | [address] | | | - IMAGING | | | | + + + + + documented in this encounter Visit Diagnoses + + | Diagnosis | + + | Back pain - Primary Backache, unspecified | + + documented in this encounter
--- OUTSIDE RECORDS SUMMARY | ~2020-04-02 | XMS | Encounter Summary ---
Demographics + + + | Address | [address] | | | [place] [address] | + + + | Home Phone [...] Team Providers + +------+ + | Care Band Builder Name | Role | Phone | [...] | 2019 | on | Center at [facility] [address] | | | | | | [address] [facility] | | | | | | for Health and | | | | | | Healing, [address] | | | | | | [place], [place] | | | | | | [address] | | | | | | [phone] | | | +--------+ + + + [...]
--- OUTSIDE RECORDS SUMMARY | ~2020-04-02 | XMS | Encounter Summary ---
Demographics + + + | Address | [address] | | | [place] [address] | + + + | Home Phone [...] [place] | | | | | [address] | | + + + + + | Pratibha Hester | ECON | Unknown | + | + + + + + | Ana Maria Powell | ECON | Unknown | + | + + + + + Care Team Providers + +------+ + | Care Welding Machine Operator Ultrasonic Name | Role | Phone | + [...] Procedures | MD [address] | [address] | | | | | MRI Lumbar | [address] | [address] [place] | | | | | Spine wo | [place], | [place] | | | | | Contrast | [place] [address] | [address] | | | | | | Phone: | Phone: | | | | | | [phone] | | | | | | | [phone] Fax: | Fax: | | | | | | | | | | | | | [phone] | | +--------+--------+ + + + + Encounter Details +--------+ + + + + | Date | Type | Department | Care Team | Description | +--------+ + + + + | 09/08/ | Hospital | [facility] | Denilson Jorge | Back pain | | 2012 - | Encounter | MED CTR XRAY [address] | F, [address] | | | | | [address] | [address] [place] | | | 09/10/ | | [facility] [place] [address] | [address] | | | 2012 | | [phone] | | | | | | | [...] Performed At | + + + | [facility] Diagnostic Imaging | [place] | | Department [address] [facility] [place] | [facility] | | [ rep [address]] [ rep [facility] | | st zip] Signed | - IMAGING | | | | | Patient Name: ANA MARIA TURCIOS Physician: | | | LAUREN. : 1970 Age: 42 Sex: F Unit #: [id number] | | | Exam Date: 09/08/12 Location: [facility] | | | Report #: [id number] Page: | | | %(RAD)RES..mtdd.print.filter("pg") of %(RAD) | | | RES..mtdd.print.filter("tpg") | | | | | | Accession Number: [id number] | | | UNENHANCED MRI LUMBAR SPINE, [...] Transcribed | | | Date/Time: 09/08/2012 12:56 Bowling Ball Molder: | | | <<Signature on File>> | | | Jayden Wyatt | | | MD Rush09/09/12 1095 <Electronically signed by Jayden Beverly MD> | | | Jayden Beverly MD 09/08/12 1234 Bowling Ball Molder: | | | Webmedx Firrgupttnxzi19/01/13 1256 Denilson Jorge, | | | MD | | + + + + + + + + | Performing | Address | City/State[facility] | Phone Number | | Organization | | | | + + + + + | [facility] | [address] | [place] | [phone] | | [facility] | | [address] | | | - IMAGING | | | | + + + + + documented in this encounter Visit Diagnoses + + | Diagnosis | + + | Back pain Backache, unspecified | + + documented in this encounter
--- OUTSIDE RECORDS SUMMARY | ~2020-04-02 | XMS | Encounter Summary ---
Demographics + + + | Address | [address] | | | [place] [address] | + + + | Home Phone [...] [place] | | | | | [address] | | + + + + + | Pratibha Hester | ECON | Unknown | + | + + + + + | Demian Powell | ECON | Unknown | + | + + + + + Care Team Providers + +------+ + | Care Executive Administrative Assistant Name | Role | Phone | [...] | 03/04/ | Telephone | [facility] | Sascha Mir, | Other (medication | | 2014 | | NEUROSURGERY [address] | DO [address] | refill questions) | | | | [address] | [address] [place], [place] | | | | | [place] | [id number] | | | | | [address] | | | | | | [phone] | | | +--------+ + + + [...] - 03/05/2015 11:38 AM PDTSpnelson Gallegos at [facility] and the patient origionally went to a retail pharmacy for the Zofran 4mg Rxand it was limited by insurance for only 10 tablets.. [facility] pharmacy was inform ed and they dispensed the full amount of #30 that we origionally requested. Lily Mann ele phone Encounter - Lenka Mann Master of Arts - 03/04/2015 10:39 AM PDTPatient call ed today and she picked up her Zofran 4mg. at [facility] and they gave her only 10 tablets. We wrote Rx for #30. I called [facility] pharmacy, and left a VM for a return call to find out wha t is going on. Lily Mann docu mented in this encounter Plan of Treatment Not on filedocumented as of this encounter Visit Diagnoses Not on filedocumented in this encounter"
--- OUTSIDE RECORDS SUMMARY | ~2020-04-02 | XMS | Encounter Summary ---
Demographics + + + | Address | [address] | | | [place] [address] | + + + | Home Phone [...] [place] | | | | | [address] | | + + + + + | Pratibha Hester | ECON | Unknown | + | + + + + + | Demian Powell | ECON | Unknown | + | + + + + + Care Team Providers + +------+ + | Care Shoe Cementer Name | Role | Phone | [...] | | | | | Cervical | [place], [place] | [place], [place] | | | | | radicular | [address] | [address] Phone: | | | | | pain | Phone: | [phone] | | | | | | [phone] | Fax: | | | | | | Fax: | [phone] | | | | | | [phone] | | +--------+ + + + + + Reason for Visit + + + | Reason | Comments | + + + | Follow-up | Back pain | + + + Encounter Details +--------+---------+ + + + | Date | Type | Department | Care Team | Description | +--------+---------+ + + + | 06/04/ | Office | [facility] | Sascha Mir, | Spondylolisthesis, | | 2014 | Visit | NEUROSURGERY [address] | DO [address] | lumbar region | | | | [address] | [address] [place], [place] | (Primary Dx); S/P | | | | [place] | [address] | lumbar fusion; | | | | [address] | | Lumbar radicular | | | | [phone] | | pain; Cervical | | | [...] [address] [facility] [place], [place] [address] FAX: NEUROSURGERY FOLLOW-UP CHIEF COMPLAINT: Chief Complaint [...] the patient is not pleased with her [facility] ent. PAST MEDICAL HISTORY: Past Medical History [...] Fusion; Surgeon: Sascha Mir, DO; L ocation: [facility] MAIN OR CURRENT MEDICATIONS: Current [...] Date Morbid obesity (HCC) Diabetes mellitus ([facility]) Multiple allergies Chronic back pain Gastric reflux Anemia Asthma Peptic ulcer Pelvic inflammatory disease Spondylolisthesis of lumbar region Pars defect of lumbar spine Trochanteric bursitis Anemia Anxiety Asthma Heart attack ([facility]) 2009 Migraine Ulcer of the [...] as needed after that. ELECTRONICALLY SIGNED BY: aSscha Mir DO, 06/04/2015 12:00 documented in this [...] [address] | [place] | [phone] | | [facility] | | [address] | | | - IMAGING | | | | + + + + + XR Cervical Spine 4 or 5 Vws (06/04/2015 12:52 PM PDT) + + | Specimen | + + | | + + + + + | Narrative | Performed At | + + + | CERVICAL SPINE: 06/04/2015 12:51 PM CLINICAL HISTORY: Cervical | [facility] | | radiculopathy COMPARISON: MRI cervical spine 04/03/2015 | [facility] | | FINDINGS: Upright AP, lateral and lateral flexion-extension views of [facility] | | the cervical spine. Spine [...] [address] | [place] | [phone] | | [facility] | | [address] | | | - IMAGING | | [...]
--- OUTSIDE RECORDS SUMMARY | ~2020-04-02 | XMS | Encounter Summary ---
Demographics + + + | Address | [address] | | | [place] [address] | + + + | Home Phone [...] [place] | | | | | [address] | | + + + + + | Pratibha Hester | ECON | Unknown | + | + + + + + | Demian Powell | ECON | Unknown | + | + + + + + Care Team Providers + +------+ + | Care Singe Winder Name | Role | Phone | [...] [address] | [address] [place], [place] | intervertebral disc | | | | [place], [place] | [address] | without myelopathy | | | | [address] | | (Primary Dx) | | | | [phone] | | | +--------+ + + + [...] Spine 4 + Vw (09/26/2014 9:21 AM [facility]) + + | Specimen | + + | | + + + + + | Narrative | Performed At | + + + | EXAM: XR LUMBAR SPINE 4 + [facility] 09/26/2014 8:51 AM [facility] | | HISTORY:Back pain COMPARISON: MRI from [facility] dated | [facility] | | June 25, 2014 and [...] | 09/26/2014 8:51 AMHISTORY:Back painCOMPARISON: MRI from [facility] dated | | June 25, 2014 [...] [address] | [place] | [phone] | | [facility] | | [address] | | | - IMAGING | | | | + + + + + documented in this encounter Visit Diagnoses + + | Diagnosis | + + | 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
--- OUTSIDE RECORDS SUMMARY | ~2020-04-02 | XMS | Encounter Summary ---
Demographics + + + | Address | [address] | | | [place] [address] | + + + | Home Phone [...] [place] | | | | | [address] | | + + + + + | Pratibha Hester | ECON | Unknown | + | + + + + + | Demian Powell | ECON | Unknown | + | + + + + + Care Team Providers + +------+ + | Care String Laster Name | Role | Phone | + +------+ + | Quentin Manriquez PA-C | MARCK | | + +------+ + Encounter Details +--------+ + + + + | Date | Type | Department | Care Team | Description | +--------+ + + + + | 06/04/ | Hospital | [facility] | Sascha Mir, | Cervical radicular | | 2015 | Encounter | MED CTR XRAY [address] | DO [address] | pain | | | | [place] | [address] | | | | | [place] [address] | [id number] | | | | | [phone] | | | +--------+ + + + [...] radiculopathy COMPARISON: MRI cervical spine 04/03/2015 | [facility] | | FINDINGS: Upright AP, lateral and lateral flexion-extension views of [facility] | | the cervical spine. Spine [...] + + | Performing | Address | City/State[facility] | Phone Number | | Organization | | | | + + + + + | [facility] | [address] | [place] | [phone] | | [facility] | | [address] | | | - IMAGING | | | | + + + + + documented in this encounter Visit Diagnoses + + | Diagnosis | + + | Cervical radicular pain Brachial neuritis or radiculitis nos | + + documented in this encounter"
--- OUTSIDE RECORDS SUMMARY | ~2020-04-02 | XMS | Encounter Summary ---
Demographics + + + | Address | [address] | | | [place] [address] | + + + | Home Phone [...] [place] | | | | | [address] | | + + + + + | Pratibha Hester | ECON | Unknown | + | + + + + + | Demian Powell | ECON | Unknown | + | + + + + + Care Team Providers + +------+ + | Care Java Grails Developer Name | Role | Phone | [...] + + | 01/06/ | Telephone | [facility] | Sascha Mir, | Other | | 2014 | | NEUROSURGERY [address] | DO [address] | | | | | [address] | [address] [place], [place] | | | | | [place] | [id number] | | | | | [address] | | | | | | [phone] | | | +--------+ + + + [...] She states she was sent home from [facility] and was discharg ed with two of [...]
--- OUTSIDE RECORDS SUMMARY | ~2020-04-02 | XMS | Encounter Summary ---
Demographics + + + | Address | [address] | | | [place] [address] | + + + | Home Phone [...] [place] | | | | | [address] | | + + + + + | Pratibha Hester | ECON | Unknown | + | + + + + + | Demian Powell | ECON | Unknown | + | + + + + + Care Team Providers + +------+ + | Care Sectionizer Name | Role | Phone | + +------+ + | Quentin Manriquez PA-C | MARCK | | + +------+ + Encounter Details +--------+ + + + + | Date | Type | Department | Care Team | Description | +--------+ + + + + | 12/03/ | Orders Only | [facility] | Sascha Mir, | Status post lumbar | | 2015 | | NEUROSURGERY [address] | DO [address] | spinal fusion | | | | [address] | [address] [place], [place] | (Primary Dx) | | | | [place], [place] | [phone] | | | | | [address] | | | | | | [phone] | | | +--------+ + + + [...] RADIOGRAPHS DECEMBER 13 AND SEPTEMBER 26 | [facility] | | FINDINGS: Five non [...] | + + + + + | [address] | [address] | [place] | [phone] | | [facility] | | [address] | | | - IMAGING | | | | + + + + + documented in this encounter Visit Diagnoses + + | Diagnosis | + + | Status post lumbar spinal fusion - Primary Arthrodesis status | + + documented in this encounter"
--- OUTSIDE RECORDS SUMMARY | ~2020-04-02 | XMS | Encounter Summary ---
Demographics + + + | Address | [address] | | | [place] [address] | + + + | Home Phone [...] [place] | | | | | [address] | | + + + + + | Pratibha Hester | ECON | Unknown | + | + + + + + | Demian Powell | ECON | Unknown | + | + + + + + Care Team Providers + +------+ + | Care Social Worker Clinical Name | Role | Phone | + +------+ + PCP | Unavailable | + +------+ + Encounter Details +--------+ + + + + | Date | Type | Department | Care Team | Description | +--------+ + + + + | 09/20/ | Hospital | [facility] | Laz Del Valle, | | | 2005 | Encounter | MED CTR GENERIC OP | MD [address] | | | | | CONV DEPT [address] | [address] | | | | | [place], | [place] [address] | | | | | [place] [address] | [phone] | | | | | [phone] | | | +--------+ + + + [...]
--- OUTSIDE RECORDS SUMMARY | ~2020-04-02 | XMS | Encounter Summary ---
Demographics + + + | Address | [address] | | | [place] [address] | + + + | Home Phone [...] [place] | | | | | [address] | | + + + + + | Pratibha Hesetr | ECON | Unknown | + | + + + + + | Demian Powell | ECON | Unknown | + | + + + + + Care Team Providers + +------+ + | Care Math And Physics Instructor Name | Role | Phone | [...] + | 06/17/ | Telephone | [facility] | Sascha Mir, | Appointment | | 2014 | | NEUROSURGERY [address] | DO [address] | | | | | [address] | [address] [place], [place] | | | | | [place] | [id number] | | | | | [address] | | | | | | [phone] | | | +--------+ + + + [...]
--- OUTSIDE RECORDS SUMMARY | ~2020-04-02 | XMS | Encounter Summary ---
Demographics + + + | Address | [address] | | | [place] [address] | + + + | Home Phone [...] [place] | | | | | [address] | | + + + + + | Pratibha Hester | ECON | Unknown | + | + + + + + | Demian Powell | ECON | Unknown | + | + + + + + Care Team Providers + +------+ + | Care Museum Exhibit Technician Name | Role | Phone | [...] + | 12/31/ | Telephone | [facility] | Sascha Mir, | Appointment | | 2014 | | NEUROSUR[address]ERY [address] | DO [address] | | | | | [address] | [address] [place], [place] | | | | | [place] | [phone] | | | | | [address] | | | | | | [phone] | | | +--------+ + + + [...] 12/31/2014 8:13 AM PDTPatient left message via zappit: "Call ing to cancel appt for tomorrow 12/31. I don't have transportation." documented in this encounter Plan of Treatment Not on filedocumented as of this encounter Visit Diagnoses Not on filedocumented in this encounter
--- OUTSIDE RECORDS SUMMARY | ~2020-04-02 | XMS | Encounter Summary ---
Demographics + + + | Address | [address] | | | [place] [address] | + + + | Home Phone [...] [place] | | | | | [address] | | + + + + + | Pratibha Hester | ECON | Unknown | + | + + + + + | Demian Powell | ECON | Unknown | + | + + + + + Care Team Providers + +------+ + | Care Ampoule Sealer Name | Role | Phone | + [...] | | | spondylolist | | [address] | | | | | hesis | | [place], | | | | | Acquired | | [place] [address] | | | | | spondylolist | | Phone: | | | | | hesis | | [phone] | | | | | Procedures | | Fax: | | | | | [place] ARTHDSIS | | [phone] | | | | | POST/POSTERO | [...] + + | 12/12/ | Hospital | [facility] | Sascha Mir, | Acquired | | 2015 | Encounter | MED CTR XRAY [address] | DO [address] | spondylolisthesis | | | | [place] | [address] | | | | | [place] [address] | [address] | | | | | [phone] | | | +--------+ + + + [...] Radiologist interpretation, please see Chart Review. | [facility] | | | [facility] | | | [facility] | | | - IMAGING | + + + + + + + + | Performing | Address | City/State/Zipcode | Phone Number | | Organization | | | | + + + + + | [address] | [address] | [place] | [phone] | | [facility] | | [address] | | | - IMAGING | | | | + + + + + documented in this encounter Visit Diagnoses + + | Diagnosis | + + | Acquired spondylolisthesis | + + documented in this encounter"
--- OUTSIDE RECORDS SUMMARY | ~2020-04-02 | XMS | Encounter Summary ---
Demographics + + + | Address | [address] | | | [place] [address] | + + + | Home Phone [...] Team Providers + +------+ + | Care Phlebotomy Instructor Name | Role | Phone | [...] | | | media, not | | [place], [place] | | | | | specified as | | [address] | | | | | acute or | | Phone: | | | | | chronic | | [phone] | | | | | Conductive | | Fax: | | | | | hearing | | [phone] | | | | | loss, | [...] | | | | [address] | [place], [place] | Dx); Conductive | | | | Physician's | [address] | hearing loss in | | | | Pavilion, 2nd floor | [phone] | right ear; Dizziness | | | | [place], [place] | | | | | | [address] | | | | | | [phone] | | | +--------+---------+ + + + [...] me after testing. Windy Rodriguez MD PhD Cover Creaser Otology, Neurotology & Skull Base Surgery documented [...]
--- OUTSIDE RECORDS SUMMARY | ~2020-04-02 | XMS | Encounter Summary ---
Demographics + + + | Address | [address] | | | [place] [address] | + + + | Home Phone [...] [place] | | | | | [address] | | + + + + + | Pratibha Hester | ECON | Unknown | + | + + + + + | Demian Powell | ECON | Unknown | + | + + + + + Care Team Providers + +------+ + | Care Oral And Maxillofacial Surgeon Name | Role | Phone | + [...] [address] | [address] [place], [place] | her that I mailed | | | | [place] | [address] | her prescriptions | | | | [address] | | certified mail | | | | [phone] | | today.) | +--------+ + + [...] Telephone Encounter - Lenka Mann Master of [employer] - 2015 9:25 AM PDTCalled patient to inform her I mailed her prescriptions. Patient verbalized Jono wesley signed by Lneka Mann Master of [employer] at 2015 9:25 AM PDTdocumented in this encounter Plan of Treatment Not on filedocumented as of this encounter Visit Diagnoses Not on filedocumented in this encounter"
--- OUTSIDE RECORDS SUMMARY | ~2020-04-02 | XMS | Encounter Summary ---
Demographics + + + | Address | [address] | | | [place] [address] | + + + | Home Phone [...] [place] | | | | | [address] | | + + + + + | Pratibha Hester | ECON | Unknown | + | + + + + + | Demian Powell | ECON | Unknown | + | + + + + + Care Team Providers + +------+ + | Care Tire Fixer Name | Role | Phone | [...] + + | 08/23/ | Telephone | [facility] | Denilson Jorge | Other (Schedule MRI | | 2012 | | [address] | [address] | ) | | | | [address] [facility] | [address] [place] [address] | | | | | [place] | [address] | | | | | [address] | [phone] | | | | | [phone] | | | +--------+ + + + [...] for At liza to be called into [facility] in [place]. Natalie Noonan elephone Enco unter - Natalie [...] claustro phobic. This has been rescheduled at [facility] on 09/08. Is it okay to call in Ativan 1MG #1 to h er pharmacy to take prior to her MRI? Please advise. Natalie documented in this enc ounter Plan of Treatment Not on filedocumented as of this encounter Visit Diagnoses Not on filedocumented in this encounter"
--- OUTSIDE RECORDS SUMMARY | ~2020-04-02 | XMS | Encounter Summary ---
Demographics + + + | Address | [address] | | | [place] [address] | + + + | Home Phone | | + + + | Preferred Language | Unknown | + + + | Marital Status | Single | + + + | Anabaptist Affiliation | CAT | + + + [...] Team Providers + +------+ + | Care Baggageman Name | Role | Phone | + [...] | | | | tube | | [place], [place] | | | | | Nonsuppurati | | [address] | | | | | ve otitis | | Phone: | | | | | media, not | | [phone] | | | | | specified as | | Fax: | | | | | acute or | | [phone] | | | | | chronic | [...] | | | | [address] | [facility] [place] | Dx); OME (otitis | | | | Physician's | [address] | media with | | | | Pavilion, 2nd floor | [phone] | effusion), right; | | | | [facility] [place] | | Conductive hearing | | | | [address] | | loss in right ear; | | | | [phone] | | Dizziness; Nausea | +--------+---------+ + [...] No spontaneous nystagmus. Normal head thrust. Normal bpbeqe-ae-tzzp and rapid alternat ing motion. Negative Romberg. [...] with new audiogram. Windy Rodriguez MD PhD Conversion Developer Otology, Neurotology & Skull Base Surgery documented [...] | + +--------+ + + + | IN CREATE EARDRUM | Routin | 04/01/2014 | [...]
--- OUTSIDE RECORDS SUMMARY | ~2020-04-02 | XMS | Encounter Summary ---
Demographics + + + | Address | [address] | | | [place] [address] | + + + | Home Phone [...] [place] | | | | | [address] | | + + + + + | Pratibha Hester | ECON | Unknown | + | + + + + + | Demian Powell | ECON | Unknown | + | + + + + + Care Team Providers + +------+ + | Care Bagel Maker Name | Role | Phone | [...] | 03/31/ | Refill | [facility] | Sascha Mir, | Medication Refill | | 2014 | | NEUR[address]UR[address] | DO [address] | | | | | [address] | [address] [place] | | | | | [place] | [address] | | | | | [address] | | | | | | [phone] | | | +--------+--------+ + + + [...] Brown RN - 04/07/2015 10:10 AM PDTContacted [employer]. The zofran prescription has been filled since [...] Assi stant - 03/31/2015 4:35 PM PDTCalled [facility] pharmacy and spoke with William. Called in metaxalone (SKELAXIN) 800 mg. #60, #1 refill.suman 1 tablet PO 3 times daily as needed for Mus geovanna spasms. Medication approved. Called patient to inform her the medication is at the [facility] and relayed ANNETTE Duggan's instructions. [facility] for return call. Lily Mann elephone Encounter [...] 3:53 PM PDTTelephone Encounter - Lenka Mann, Gill Net Stringer - 03/31/20 2:58 PM PDTMedication Refill Request Procedure: [id number] Date of Surgery: 12/12/14 Medication requested: Zofran [...] in to preferred pharmacy? Call into pharmacy ([email or web address]) Please approve/deny Lily Mann d ocumented in this encounter Plan of Treatment Not on filedocumented as of this encounter Visit Diagnoses + + | Diagnosis | + + | Nausea - Primary Nausea alone | + + | S/P lumbar fusion Arthrodesis status | + + documented in this encounter
--- OUTSIDE RECORDS SUMMARY | ~2020-04-02 | XMS | Encounter Summary ---
Demographics + + + | Address | [address] | | | [place] [address] | + + + | Home Phone [...] Team Providers + +------+ + | Care Strip Catcher Name | Role | Phone | + +------+ + | Soniya Sinha [facility] | PCP | | + +------+ + Encounter Details +--------+ + + + + | Date | Type | Department | Care Team | Description | +--------+ + + + + | 10/03/ | Offset Printing Operator | Otolaryngology | Windy Mclean | Dizziness (Primary | | 2013 | | Otology Services at | MD Loli [address] | Dx); Hearing loss | | | | [address] | | | | | [address] | [facility] [place] | | | | | Physician's | [address] | | | | | Pavilion, 2nd floor | [phone] | | | | | [facility] [place] | | | | | | [address] | | | | | | [phone] | | | +--------+ + + + [...]
--- OUTSIDE RECORDS SUMMARY | ~2020-04-02 | XMS | Encounter Summary ---
Demographics + + + | Address | [address] | | | [place] [address] | + + + | Home Phone [...] [place] | | | | | [address] | | + + + + + | Pratibha Hester | ECON | Unknown | + | + + + + + | Demian Powell | ECON | Unknown | + | + + + + + Care Team Providers + +------+ + | Care Record Retrieval Specialist Name | Role | Phone | [...] [address] | [address] [place] | | | | | [place] | [id number] | | | | | [address] | | | | | | [phone] | | | +--------+ + + + [...] Aguillon RN - 12/23/2015 1:00 PM P [id number] signed by Yoko Aguillon RN at 12/23/2015 [...] Aguillon RN - 12/19/2015 12:09 PM PDTCalled [facility] and requested imagmichelle g. elephone Encounte Julien Prieto - 12/19/2015 10:59 AM PDTPatient called in to let us know that she has com pleted her xrays @ [facility] eleph one Encounter - Virgen Pena RN - 12/19/2015 9:38 AM PDTDanimonet from [facility] adiology called asking if it was [...] PM P DTLumbar xray order faxed via Gremln to [facility]. Reminder set. eleph one Encounter - Melida Lindquist - 12/17/2015 2:49 PM PDTPatient returned call. She would li ke to have her xrays completed at [facility]. I asked her to call us when [...]
--- OUTSIDE RECORDS SUMMARY | ~2020-04-02 | XMS | Encounter Summary ---
Demographics + + + | Address | [address] | | | [place] [address] | + + + | Home Phone [...] [place] | | | | | [address] | | + + + + + | Pratibha Hester | ECON | Unknown | + | + + + + + | Demian Powell | ECON | Unknown | + | + + + + + Care Team Providers + +------+ + | Care Science Interpreter Name | Role | Phone | + [...] + | 12/17/ | Telephone | [facility] | Sascha Mir, | Medication | | 2015 | | NEUROSURG[address] | DO [address] | Management | | | | [address] | [address] [place] | | | | | [place] | [phone] | | | | | [address] | | | | | | [phone] | | | +--------+ + + + [...] - 12/20/2014 8:27 AM PDTCalled Pharmacy at [phone] to fill Rx of gabapentin 300mg capsule, [...] [facility] legs [facility]. I didn't see any [...] from when she was admitted here at [facility] were transferred to the facility she is now at. She could not remember which medications these were, but states that they were for the n erves in her legs and for her stomach/heartburn and we prescribed by Dr. Mir. She is admi tted at [facility] in [place]. Please advise.Electronically signed by Karis Nunez at 0 12/17/2014 2:03 PM PDTdocumented in this encounter Plan of Treatment Not on filedocumented as of this encounter Visit Diagnoses Not on filedocumented in this encounter"
--- OUTSIDE RECORDS SUMMARY | ~2020-04-02 | XMS | Encounter Summary ---
Demographics + + + | Address | [address] | | | [place] [address] | + + + | Home Phone [...] [place] | | | | | [address] | | + + + + + | Pratibha Hester | ECON | Unknown | + | + + + + + | Demian Powell | ECON | Unknown | + | + + + + + Care Team Providers + +------+ + | Care Transporter Driver Name | Role | Phone | + +------+ + | Quentin Manriquez PA-C | MARCK | | + +------+ + Encounter Details +--------+---------+ + + + | Date | Type | Department | Care Team | Description | +--------+---------+ + + + | 01/15/ | Office | [facility] | Amol Triplett, | Spondylolisthesis of | | 2015 | Visit | NEUR[address]URGERY [address] | PA-C [address] | lumbar region L5-S1 | | | | [address] | [address] [place] | (Primary Dx); S/P | | | | [place], [place] | [place] [address] | lumbar fusion | | | | [address] | [phone] | | | | | [phone] | | | +--------+---------+ + + + [...] your back and use good technique when pickling solution maker things and bending. documented in this encounter Progress Notes Amol Triplett PA - 01/15/2015 10:33 AM PDTFormatting of this note might be different f rom the original. ANNETTE Gutierrez [address] [facility] [address] [place] [address] FAX: NEUROSURGERY SURGICAL FOLLOW-UP CHIEF COMPLAINT: No [...] Medication Sig Dispense Refill ALBUTEROL SULFATE IN [facility]; 1-2 puffs every 3-4 hours [...] priors. FINDINGS: There is stable hardware | [facility] | | for posterior fusion from L5 through S1 with interbody hardware at [facility] | | L5-S1. Extensive spondylosis is present [...] ST. | [address] | [place] | [phone] | | [facility] | | [address] | | | - IMAGING | | | | + + + + + documented in this encounter Visit Diagnoses + + | Diagnosis | + + | Spondylolisthesis of lumbar region L5-S1 - Primary Acquired spondylolisthesis | + + | S/P lumbar fusion Arthrodesis status | + + documented in this encounter
--- OUTSIDE RECORDS SUMMARY | ~2020-04-02 | XMS | Encounter Summary ---
Demographics + + + | Address | [address] | | | [place] [address] | + + + | Home Phone [...] [place] | | | | | [address] | | + + + + + | Pratibha Hester | ECON | Unknown | + | + + + + + | Demian Powell | ECON | Unknown | + | + + + + + Care Team Providers + +------+ + | Care Wood Carver Hand Name | Role | Phone | [...] [address] | [address] [place] | | | | | [place] | [address] | | | | | [address] | | | | | | [phone] | | | +--------+--------+ + + + [...] need a prescription for zofran called into [facility]." documented in this encoun ter Plan of Treatment Not on filedocumented as of this encounter Visit Diagnoses Not on filedocumented in this encounter
--- OUTSIDE RECORDS SUMMARY | ~2020-04-02 | XMS | Encounter Summary ---
Demographics + + + | Address | [address] | | | [place] [address] | + + + | Home Phone [...] [place] | | | | | [address] | | + + + + + | Pratibha Hester | ECON | Unknown | + | + + + + + | Demian Powell | ECON | Unknown | + | + + + + + Care Team Providers + +------+ + | Care Attendant Campground Name | Role | Phone | + [...] | Sascha Armendariz DO | [address] | | | | | Spondylolist | [address] | [place], | | | | | hesis of | [address] | [place] | | | | | lumbar | [place] | [address] | | | | | region S/P | [address] | Phone: | | | | | lumbar | Phone: | [phone] | | | | | fusion | [phone] | Fax: | | | | | Procedures | Fax: | [phone] | | | | | MRI Lumbar | [phone] | | | | | | Spine [...] | Sascha Armendariz DO | [address] | | | | | radicular | [address] | [place], | | | | | pain | [address] | [place] | | | | | Procedures | [place] | [address] | | | | | MRI Cervical | [address] | Phone: | | | | | Spine wo | Phone: | [phone] | | | | | Contrast | [phone] | Fax: | | | | | | Fax: | [phone] | | | | | | [phone] | | +--------+--------+ + + + + Reason for Visit + + + | Reason | Comments | + + + | Follow-up | 3-month post-op | + + + Encounter Details +--------+---------+ + + + | Date | Type | Department | Care Team | Description | +--------+---------+ + + + | 03/17/ | Office | [facility] | Sascha Mir, | Spondylolisthesis of | | 2015 | Visit | NEUR[address]UR[address] | DO [address] | lumbar region | | | | [address] | [address] [place], [place] | (Primary Dx); S/P | | | | [place], [place] | [id number] | lumbar fusion; | | | | [address] | | Cervical radicular | | | | [phone] | | pain | +--------+---------+ + + [...] m the original. Sascha Mir DO [address] [facility] [address] [place] [address] FAX: NEUROSURGERY FOLLOW-UP CHIEF COMPLAINT: Chief Complaint [...]
--- OUTSIDE RECORDS SUMMARY | ~2020-04-02 | XMS | Encounter Summary ---
Demographics + + + | Address | [address] | | | [place] [address] | + + + | Home Phone [...] + + + + + | Uche iNna | ECON | [address] | + | | | | [place] | | | | | [address] | | + + + + + | Pratibha Hester | ECON | Unknown | + | + + + + + | Demian Powell | ECON | Unknown | + | + + + + + Care Team Providers + +------+ + | Care Sewer Pipe Offbearer Name | Role | Phone | + [...] [address] | MD Denice [address] | cancellation due to | | | | [address] | [address] [place] | insurance ) | | | | [place], [place] | [address] | | | | | [address] | [phone] | | | | | [phone] | | | +--------+ + + + [...]
--- OUTSIDE RECORDS SUMMARY | ~2020-04-02 | XMS | Encounter Summary ---
Demographics + + + | Address | [address] | | | [place] [address] | + + + | Home Phone [...] [place] | | | | | [address] | | + + + + + | Pratibha Hester | ECON | Unknown | + | + + + + + | Demian Powell | ECON | Unknown | + | + + + + + Care Team Providers + +------+ + | Care Lab Coordinator Name | Role | Phone | [...] + | 01/01/ | Telephone | [facility] | Sascha Mir, | Other (Medication | | 2014 | | NEUROSURGERY [address] | DO [address] | refill) | | | | [address] | [address] [place], [place] | | | | | [place], [place] | [address] | | | | | [address] | | | | | | [phone] | | | +--------+ + + + [...] Mir approved on 01/02/15 Certified rohan jose #[id number] to patient at address she requested ([address] [place] [address] n, [place] [address]F[place]azq[place] signed by Master Lundberg of Arts at [...] preferred pharmacy? [facility] the [facility] [address] ele phone Encounter - Lenka Mann Master [...]
--- OUTSIDE RECORDS SUMMARY | ~2020-04-02 | XMS | Encounter Summary ---
Demographics + + + | Address | [address] | | | [place] [address] | + + + | Home Phone [...] Author + + + | Author | [facility] | | | and [place] | + + + | Organization | [facility] | | | [...] [place] | | | | | [address] | | + + + + + | Pratibha Hester | ECON | Unknown | + | + + + + + | Demian Powell | ECON | Unknown | + | + + + + + Care Team Providers + +------+ + | Care Welt Rander Name | Role | Phone | + +------+ + | Quentin Manriquez PA-C | MARCK | | + +------+ + Encounter Details +--------+ + + + + | Date | Type | Department | Care Team | Description | +--------+ + + + + | 12/05/ | Hospital | [facility] | Sascha Mir, | Bilateral lumbar | | 2015 | Encounter | MED CTR | DO [address] | radiculopathy; HIP | | | | [facility] | [address] [place], [place] | PAIN, LEFT, CHRONIC; | | | | [address] [place] | [address] | Spondylolisthesis | | | | [place] [address] | | of lumbar region | | | | [phone] | | L5-S1; Pars defect | | [...]
--- OUTSIDE RECORDS SUMMARY | ~2020-04-02 | XMS | Encounter Summary ---
Demographics + + + | Address | [address] | | | [place] [address] | + + + | Home Phone [...] [place] | | | | | [address] | | + + + + + | Pratibha Hester | ECON | Unknown | + | + + + + + | Demian Powell | ECON | Unknown | + | + + + + + Care Team Providers + +------+ + | Care Press Leader Name | Role | Phone | [...] + + | 06/20/ | Refill | [facility] | Char Duque | Medication Refill | | 2019 | | PLASTIC SURGERY AND | B, CLOTH HAND [address] | | | | | DERMATOLOGY [address] | | | | | [place] | [place] | | | | | [place] | [id number] | | | | | [address] | | | | | | [phone] | | | +--------+--------+ + + + [...]
--- OUTSIDE RECORDS SUMMARY | ~2020-04-02 | XMS | Encounter Summary ---
Demographics + + + | Address | [address] | | | [place] [address] | + + + | Home Phone [...] Providers + +------+ + | Care Sign Erector And Repairer Name | Role | Phone | + +------+ + | Gracie Lewis PA-C | PCP | | + +------+ + Encounter Details +--------+ + + + + | Date | Type | Department | Care Team | Description | +--------+ + + + + | 12/23/ | Quill Stripper | Digestive Health | Jeanna Sandhu, | | | 2019 | | Center at [facility] [address] | MD [address] | | | | | [address] [place] | [facility] [place] | | | | | for Health and | [address] | | | | | Healing, Building [address] | [phone] | | | | | [place], [place] | | | | | | [address] | | | | | | [phone] | | | +--------+ + + + [...]
--- OUTSIDE RECORDS SUMMARY | ~2020-04-02 | XMS | Encounter Summary ---
Demographics + + + | Address | [address] | | | [place] [address] | + + + | Home Phone [...] [place] | | | | | [address] | | + + + + + | Pratibha Hester | ECON | Unknown | + | + + + + + | Ana Maria Powell | ECON | Unknown | + | + + + + + Care Team Providers + +------+ + | Care Mellowing Machine Operator Name | Role | Phone | + +------+ + | Dercik Mclaughlin PA-C | PCP | | + [...] Procedures | MD [address] | [address] | | | | | MRI Lumbar | [address] | [address] [place] | | | | | Spine wo | [place], | [place] | | | | | Contrast | [place] [address] | [address] | | | | | | Phone: | Phone: | | | | | | [phone] | | | | | | | [phone] Fax: | Fax: | | | | | | | | | | | | | [phone] | | +--------+--------+ + + + + Encounter Details +--------+ + + + + | Date | Type | Department | Care Team | Description | +--------+ + + + + | 08/23/ | Orders Only | [facility] | Denilson Jorge | Back pain (Primary | | 2012 | | NEUROSURGERY [address] | F, [address] | Dx) | | | | [address] | [address] [place] | | | | | [place] | [address] | | | | | [address] | [phone] | | | | | [phone] | | | +--------+ + + + [...] [facility] | [place] | | Department [address] [place] [address] | [facility] | | [ rep ct vernon1+2] [ rep [facility] | | [facility]] Signed | - IMAGING | | | | | Patient Name: ANA MARIA TURCIOS Physician: | | | LAUREN.01 : 1970 Age: 42 Sex: F Unit #: [id number] | | | Exam Date: 09/08/12 [place] [facility] | | | Report #: [id number] Page: | | | %(RAD)RES..mtdd.print.filter("pg") of %(RAD) | | | RES..mtdd.print.filter("tpg") | | | | | | Accession Number: [id number] | | | UNENHANCED MRI LUMBAR SPINE, [...] Transcribed | | | Date/Time: 09/08/2012 12:56 Convention Worker: | | | <<Signature on File>> | | | Jayden Wyatt | | | MD Rush09/09/12 5202 <Electronically signed by Jayden Beverly MD> | | | Jayden Beverly MD 09/08/12 1234 Convention Worker: | | | Nuhookx Kxtullvmxxjrz15/01/13 1256 Denilson Jorge, | | | MD | | + + + + + + + + | Performing | Address | City/State/Zipcode | Phone Number | | Organization | | | | + + + + + | [address] | [address] | [place] | [phone] | | [facility] | | [address] | | | - IMAGING | | | | + + + + + documented in this encounter Visit Diagnoses + + | Diagnosis | + + | Back pain - Primary Backache, unspecified | + + documented in this encounter
--- OUTSIDE RECORDS SUMMARY | ~2020-04-02 | XMS | Encounter Summary ---
Demographics + + + | Address | [address] | | | [place] [address] | + + + | Home Phone [...] | Uche Nnia | ECON | [address] | + | | | | [place] | | | | | [address] | | + + + + + | Pratibha Hester | ECON | Unknown | + | + + + + + | Demian Powell | ECON | Unknown | + | + + + + + Care Team Providers + +------+ + | Care Health Underwriter Name | Role | Phone | + [...] [address] | [address] [place] | | | | | [place] | [address] | | | | | [address] | | | | | | [phone] | | | +--------+--------+ + + + [...] need a prescription for zofran called into [facility]." documented in this encoun ter Plan of Treatment Not on filedocumented as of this encounter Visit Diagnoses Not on filedocumented in this encounter
--- OUTSIDE RECORDS SUMMARY | ~2020-04-02 | XMS | Encounter Summary ---
Demographics + + + | Address | [address] | | | [place] [address] | + + + | Home Phone [...] Providers + +------+ + | Care Cattle Trader Name | Role | Phone | [...] | | | | [address] | [place] [address] | | | | | Physician's | [phone] | | | | | Willy, [facility] floor | | | | | | [place], [place] | | | | | | [address] | | | | | | [phone] | | | +--------+ + + + [...] to moderate mixed hearing loss. A speech operator receptionist threshold was obtain ed at 40 dB HL and is in good agreement with responses to pure-tone stimuli. Word recogniti on ability was 80% when words were presented at a comfortable level of 65 dB HL. Left Ear: Normal hearing sensitivity from 250-4000 Hz, sloping to a mild hearing loss at 6000 Hz, rising to normal hearing at 8000 Hz. A speech operator receptionist threshold was obtained at 20 dB [...] | + +--------+ + + + | MS TYMPANOMETRY | Routin | 04/16/2014 | Mixed hearing | | | | e | 3:45 PM | loss, unilateral | | | | | PDT | | | + +--------+ + + + | MS COMPREHENSIVE | Routin | 04/16/2014 | Mixed [...]
--- OUTSIDE RECORDS SUMMARY | ~2020-04-02 | XMS | Encounter Summary ---
Demographics + + + | Address | [address] | | | [place] [address] | + + + | Home Phone [...] [place] | | | | | [address] | | + + + + + | Pratibha Hester | ECON | Unknown | + | + + + + + | Demian Powell | ECON | Unknown | + | + + + + + Care Team Providers + +------+ + | Care Reel Blade Bender Furnace Tender Name | Role [...] [place] | | | | | [address] | [address] | | | | | [phone] | | | +--------+ + + + [...]
--- OUTSIDE RECORDS SUMMARY | ~2020-04-02 | XMS | Encounter Summary ---
Demographics + + + | Address | [address] | | | [place] [address] | + + + | Home Phone [...] [place] | | | | | [address] | | + + + + + | Pratibha Hester | ECON | Unknown | + | + + + + + | Demian Powell | ECON | Unknown | + | + + + + + Care Team Providers + +------+ + | Care Mannequin Decorator Name | Role | Phone | [...] [address] | [address] [place], [place] | | | | | [place] | [address] | | | | | [address] | | | | | | [phone] | | | +--------+ + + + [...] 03/03/2015 11:47 AM PDTReturne d patients call. [facility] to return call. Lily Mann ele phone Encounter - Madiha Schilling - 03/03/2015 11:16 AM PDTLavobeatriz is having a hard time get ting her RX filled in at [facility], please advise. elephone Encounter - Elina Noonan Cert MA - 02/26/2015 2:57 PM PDTI called and LVM for [place] requesting a call back. Her Rx's for Diazepam and Oxycodone were placed in the mail to her this afternoon. Rx's fo r Zofran and Methocarbamol have been sent to [facility] in [place], [place]. ELINA NOONAN elephone Encounte r - [...] 3:22 PM PDTI left a VM for [place]. I cannot process this request without asking [...] [facility] Sep[facility]h Mckay at 02/25/2015 11 :10 AM PDTdocumented in this encounter Plan of Treatment Not on filedocumented as of this encounter Visit Diagnoses + + | Diagnosis | + + | Nausea - Primary Nausea alone | + + documented in this encounter"
--- OUTSIDE RECORDS SUMMARY | ~2020-04-02 | XMS | Encounter Summary ---
Demographics + + + | Address | [address] | | | [place] [address] | + + + | Home Phone [...] + + + | Author | [facility] | | | and [place] | + + + | Organization | [facility] | | | [...] [place] | | | | | [address] | | + + + + + | Pratibha Hester | ECON | Unknown | + | + + + + + | Demian Powell | ECON | Unknown | + | + + + + + Care Team Providers + +------+ + | Care Emt P Name | Role | Phone | + [...] | | | spondylolist | | [address] | | | | | hesis | | [place], | | | | | Acquired | | [place] [address] | | | | | spondylolist | | Phone: | | | | | hesis | | [phone] | | | | | Procedures | | Fax: | | | | | MA ARTHDSIS | | [phone] | | | | | POST/POSTERO | [...] + + | 12/12/ | Hospital | [facility] | Sascha Mir, | | | 2015 - | Encounter | MED CTR SURGICAL | DO [address] | | | | | [address] | [address] | | | 12/16/ | | [place] [address] | [address] | | | 2014 | | [phone] | | | +--------+ + + + [...] admission the patient was admitted to [facility] and underwent a L5-S1 fusion . [...] mobility and she was ultimately discharged to [facility]. Medications Reconciled upon Discharge are: [...] Discharge: Stable Disposition: Patient was discharged to [facility]. Follow-Up Plans: Follow-up with: Dr. Mir's office in 4 weeks Follow-up with primary care physician as needed. Diet: Resume regular diet Activity: Continue to follow guidelines and precautions as previously discussed. Electronically signed by: Amol Triplett, 12/16/2014 7:45 [facility] documented in this encounter Discharge Instructions [...] might be different f rom the original. [facility] NEUROSURGERY PROGRESS NOTE Pt. Name/Age/: Demian [...] surgery. She is reay to go [facility] in [place]. No further C/C OBJECTIVE: Patient Vitals for [...] Electronically signed by: Amol Triplett, 12/16/2014 7:36 [facility] S[facility] Beck DO - 12/15/2014 9:20 AM PDT Subjective The patient was seen and examined by me today. She complains of of left tingling - improved from numbness, and left leg dysesthesia. Her l egs feel strong. Moderate surgical pain, but tolerable. She would like to go to SNF in [facility] before discharge home. Objective Filed [...] would like to go to SNF in [facility] before discharge home. Objective Filed [...] Range POC Test, Urine Negative POC Specific [place] Internal QC Acceptable Lot Number [id number] Expiration Date POC GLUCOSE Result Value Ref [...] Sascha Mir DO - 12/12/2014 9:09 [facility] H[facility] AND [...] Electronically signed by: Sascha Mir, 12/12/2014 9:09 [facility] Sascha Beck DO - 12/12/2014 9:09 AM PDT [address] [facility], [address] [place] [address] FAX: NEUROSURGERY HISTORY AND PHYSICAL [...] no apparent deficits with short or extermination inspector memory. CRANIAL NERVES: II: Acuity is intact. [...] 12/16/2014 9:22 AM PDTTalked with Rene @ [facility], she will run the Insurance and call back. I informed her that we do have discharge orders. Electronically signed by: Yue Wing 12/16/2014 9:23 Rene called back, they can accept Demian today. Faxed orders, PASRR, discharge summary and RX to [facility]. Received the "Communication result report" (result OK) Packet is ready. Demian will call her mom for a ride. Received a call from Laura felix, requesting the SNF orders to be faxed to [phone]. Faxed. Received "communication result report" (result ok) NF Transfer - Dash Triplett PA - 12/16/2014 7:43 AM PDTFormatting of this note might be different from the orig inal. RESIDENTIAL FACILITY TRANSFER ORDERS Patient Name: Demian Nina Patient : 1970 Gender: female Date of Admission: 12/12/2014 Date of Discharge: 12/16/2014 Admitting Provider: Sascha Mir DO Discharging Provider: ANNETTE Gutierrez Consultants: none PCP: Quentin Manriquez [facility] transferring to: [facility] Provider after transfer: PCP and [facility] MD CODE STATUS: [x] Attempt CPR [] Do not resuscitate If patient is pulseless and not breathing, RN/METER SHOP SUPERINTENDENT may pronounce . Advanced Directives included: [] [...] HPV, QUADRIVALENT, 3 DOSE (ADOL/ADULT) 05/18/2013 INFLUENZA, [id number], ALL FORMULATIONS 08/05/2009 INFLUENZA, HIGH DOSE SEASONAL (ADULT) 05/07/2014 PNEUMOCOCCAL, UNSPECIFIED FORMULATION 07/07/2010 Diet: [x] As tolerated STEREOPTICIAN may upgrade or downgrade diet as condition Indicates. [x] RN may downgrade diet as indicated. Type: [] Continue current diet of: Diet and Supplements Diet DIET GENERAL Number of Occurrences: Until Specified [] Other: Consistency/Precautions: [] Whole [] Thin Liquids [] Cut-up [] Minong Thick [] Advanced Chopped [] Honey Thickened [] Chopped [] Advanced Ground [] 1:1 feedings [] Ground/Pureed [] Other: Tube Feedings: [] PEG [] GT [] JT [] NGT [] Formula type: (Keyboard Action Assembler may change/substitute if indicated). [] Continuous Rate: [...] [x] OT Evaluation & Management for: [] STEREOPTICIAN Evaluation &Management for: [] Other: Wound/Skin Care: [...] I, ANNETTE Gutierrez, certify that post hospital half-way care is medically nece ssary on a continuing basis for any of the conditions for which he/she received care during this hospitalization. Check one: [x] Skilled [] Intermediate Additional Orders/Instructions: Physician's signature: Amol Triplett PA-C_12/16/2014 7:43 [facility] USE ONLY: [] Admitting [...] later today t o a rehab in [facility]. Electronically signed by: Giana Rausch [...] the same. Pt plans to go to [facility] for a few days if possible prior [...] with family/caregiver after short term rehab at [facility] Post discharge physical therapy recommendation: outpatient therapy (when ordered by Dr. Dr alcocer) Plan for next treatment: 1P;KH;check on pt prior to planned d/c to [facility] tomorrow . Electronically signed by: Nuvia Dove PT, 12/15/2014 15:18 lan of Care - Yue Tinlsey - 12/15/2014 10:35 AM PDTDischarge Planning: Demian would like to go to [facility] for a short stay prior to going home. She signed the "SNF options form" Placed the signed form in the ghost chart. Faxed referral to [facility]. Received the "Communication result Report" (Result ok) place d the fax in the ghost chart. Will need prior auth from her Insurance company prior to discharge. Demian will be ready for discharge tomorrow. Her mother will transport her at discharge. Electronically signed by: Yue Wing 12/15/2014 10:40 Terrie called from [facility], said everything looks good, they will run her Insurance in the AM lan of Kartik - Roseline Vidal, ELECTRICIAN SUPERVISOR AIRPLANE - 12/15/2014 1:49 AM PDTProblem: General Plan [...] Sup 12-14 Stairs Assessment: Pt with improved naval architect on L but still with continued weakness, [...] per pt request Electronically signed by: Nuvia Dvoe PT, 12/14/2014 17:02 lan of Care - [...] 6 Extra Time, 6 Raised Toilet Seat [place] FIM Self Care Groomin Grooming Score Evidence: [...] Adriana Holcomb OT, 12/14/2014 14:52 lan of [facility] Darek Paulino RRT - 12/14/2014 3:52 AM [...] verbal cuing. Donned underwear w/o use of sole leveler but may benefit to increase ease. Sit-s tand w/ SBA & light CGA to trap puller hips. Tolerated standing @ sink to [...] Recommendations: shower chair, tub bench, sock aide, sole leveler, front wheeled walk er Planned Interventions:Planned Therapy [...] Given this morning with improvement. lan of [facility] Nuvia espinosa, PT - 12/13/2014 [...] tin gling to left leg and foot. Physician Specialist strong, right foot stong, but left [...] lan of Care - P Rekha mendez, ELECTRICIAN SUPERVISOR AIRPLANE - 12/12/2014 9:30 PM PDTProblem: General Plan of Care (Adult, Obstetric s) Goal: Care Plan Shift Summary & Review . Outcome: Progressing BS clear. Patient achieving 2500 of Predicted Level (mL)(Incentive Spirometer): 2300. SpO 2: 95 % on 3liters/minute nasal cannula. Will continue to monitor. p Note - Sascha Mir DO - 12/12/2014 6:49 PM PDTDATE: 12/12/2014 SURGEON: Sascha Mir DO. QUARTER SECTION IRONER: None. PREOPERATIVE DIAGNOSES 1. Spondylolisthesis, L5-S1. 2. [...] 26 mm Ti-coated Capstone PEEK cage from [employer] was chosen. It was filled with Infuse [...] Note Demian Nina 44 y.o. female 1970 [id number] Proc. Date 12/12/2014 Preop Dx Acquired spondylolisthesis Postop Dx same Procedure Procedure(s):L5-S1 Transforaminal Lumbar Interbody Fusion Anesthesia General Surgeon Surgeon(s) and Role: * Sascha Mir DO - Primary Algorithm Design Engineer NA EBL 100 mL Findings Findings [...] by: Sascha Mir DO 12/12/2014 18:48 [facility] lan of Rekha Walsh RRT - [...] Sit To Supine, Rehab Eval Level Of [place]: Sit/Supine: moderate assist (50% patients effort) Physical Assist/Nonphysical Assist: Sit/Supine: 1 person assist, verbal cues Assistive Device: Sit/Supine: bed rails Goal Bed Mobility Sit to Supine Sit to Supine STG Status: New STG Bed Mobility Sit to Supine: independent Bed Mobility Skill: Supine To Sit, Rehab Eval Level Of [place]: Supine/Sit: moderate assist (50% patients effort) Physical Assist/Nonphysical Assist: Supine/Sit: 1 person assist, verbal cues Assistive Device: Supine/Sit: bed rails Goal Bed Mobility Supine to Sit Supine to Sit STG Status: New STG Bed Mobility Supine to Sit : independent Transfers Transfer Skill: Sit To Stand, Rehab Eval Level Of [place]: Sit/Stand: minimum assist (75% patients effort) Physical Assist/Nonphysical Assist: Sit/Stand: 1 person assist, verbal cues (from raised be d) Assistive Device For Transfer: Sit/Stand: 2 wheeled walker Goal Transfers Sit to Stand Sit to Stand STG Status: New STG Transfers Sit to Stand : modified independent Gait Gait Skills, PT Eval Level Of [place]: Gait: contact guard assist (75% patient effort) [...] DM, pelvic inflammatory disease, and hx of [place] . Rehab Potential: good, to achieve stated [...] | of hardware for posterior fusion from T4koydgfv S1 with interbody hardware at L5-S1. | [...] [address] | [place] | [phone] | | [facility] | | [address] | | | - LABORATORY | | [...] Specific | | | | | | [place], | | | | | | POC | | | | | + + + + + + | Internal QC | Acceptable | | | | + + + + + + | Lot Number | [id number] | | | | + + + [...] ST. | [address] | [place], [place] | [phone] | | [facility] | | [address] | | | - LABORATORY | | [...] ST. | [address] | [place], [place] | | | [facility] | | [address] | | | - BLOOD BANK | [...] | | | | | | | [facility] 12/12/14 at 1500, For 2 doses, | [...] PDT | | | | | Starting [facility] 12/12/14 at 1433, | | | | [...] PDT | | | | | Starting [facility] 12/12/14 at 1433, | | | | [...]
--- OUTSIDE RECORDS SUMMARY | ~2020-04-02 | XMS | Encounter Summary ---
Demographics + + + | Address | [address] | | | [place] [address] | + + + | Home Phone [...] [place] | | | | | [address] | | + + + + + | Pratibha Hester | ECON | Unknown | + | + + + + + | Demian Powell | ECON | Unknown | + | + + + + + Care Team Providers + +------+ + | Care Marine Transport Professionals Name | Role | Phone | + +------+ + | Quentin Manriquez PA-C | MARCK | | + +------+ + Encounter Details +--------+---------+ + + + | Date | Type | Department | Care Team | Description | +--------+---------+ + + + | 01/15/ | Office | [facility] | Amol Triplett, | Spondylolisthesis of | | 2015 | Visit | NEUROSURGERY [address] | PA-C [address] | lumbar region L5-S1 | | | | [address] | [address] [place] | (Primary Dx); S/P | | | | [place], [place] | [place] [address] | lumbar fusion | | | | [address] | [phone] | | | | | [phone] | | | +--------+---------+ + + + [...] your back and use good technique when picker and sorter load and unload things and bending. documented in this encounter Progress Notes Amol Triplett PA - 01/15/2015 10:33 AM PDTFormatting of this note might be different f rom the original. ANNETTE Gutierrez [address] [facility], [address] [place] [address] FAX: NEUROSURGERY SURGICAL FOLLOW-UP CHIEF COMPLAINT: No [...] Medication Sig Dispense Refill ALBUTEROL SULFATE IN [facility]; 1-2 puffs every 3-4 hours [...] priors. FINDINGS: There is stable hardware | [facility] | | for posterior fusion from L5 through S1 with interbody hardware at [facility] | | L5-S1. Extensive spondylosis is present [...] ST. | [address] | [place] | [phone] | | [facility] | | [address] | | | - IMAGING | | | | + + + + + documented in this encounter Visit Diagnoses + + | Diagnosis | + + | Spondylolisthesis of lumbar region L5-S1 - Primary Acquired spondylolisthesis | + + | S/P lumbar fusion Arthrodesis status | + + documented in this encounter
--- OUTSIDE RECORDS SUMMARY | ~2020-04-02 | XMS | Encounter Summary ---
Demographics + + + | Address | [address] | | | [place] [address] | + + + | Home Phone [...] [place] | | | | | [address] | | + + + + + | Pratibha Hester | ECON | Unknown | + | + + + + + | Demian Powell | ECON | Unknown | + | + + + + + Care Team Providers + +------+ + | Care Mogul Operator Name | Role | Phone | + +------+ + | Quentin Manriquez PA-C | MARCK | | + +------+ + Encounter Details +--------+ + + + + | Date | Type | Department | Care Team | Description | +--------+ + + + + | 09/19/ | Abstract | [facility] | Sascha Mir, | | | 2014 | | NEUROSURGERY [address] | DO [address] | | | | | [address] [facility] [address] | [address] [place], [place] | | | | | [place], [place] | [address] | | | | | [address] | | | | | | [phone] | | | +--------+ + + + [...]
--- OUTSIDE RECORDS SUMMARY | ~2020-04-02 | XMS | Encounter Summary ---
Demographics + + + | Address | [address] | | | [place] [address] | + + + | Home Phone [...] Team Providers + +------+ + | Care Diabetologist Name | Role | Phone | + [...] | | | | tube | | [place], [place] | | | | | Nonsuppurati | | [address] | | | | | ve otitis | | Phone: | | | | | media, not | | [phone] | | | | | specified as | | Fax: | | | | | acute or | | [phone] | | | | | chronic | [...] | | | | [address] | [facility] [place] | Dx); OME (otitis | | | | Physician's | [address] | media with | | | | Pavilion, 2nd floor | [phone] | effusion), right; | | | | [facility] [place] | | Conductive hearing | | | | [address] | | loss in right ear; | | | | [phone] | | Dizziness; Nausea | +--------+---------+ + [...] No spontaneous nystagmus. Normal head thrust. Normal nvbrpz-xz-uuzw and rapid alternat ing motion. Negative Romberg. [...] with new audiogram. Windy Rodriguez MD PhD Technical Clerk Otology, Neurotology & Skull Base Surgery documented [...] + +--------+ + + + | [place] [facility] | Routin | 04/01/2014 | [...]
--- OUTSIDE RECORDS SUMMARY | ~2020-04-02 | XMS | Encounter Summary ---
Demographics + + + | Address | [address] | | | [place] [address] | + + + | Home Phone [...] [place] | | | | | [address] | | + + + + + | Pratibha Hester | ECON | Unknown | + | + + + + + | Demian Powell | ECON | Unknown | + | + + + + + Care Team Providers + +------+ + | Care Rental Car Deliverer Name | Role | Phone | + +------+ + | Jannette Boyle PA-C | PCP | | + +------+ + Encounter Details +--------+ + + + + | Date | Type | Department | Care Team | Description | +--------+ + + + + | 02/28/ | Orders Only | [facility] | Provider, | | | 2019 | | SYSTEM GENERIC OP | MD [address] | | | | | CONVERSION [address] | [address] | | | | | [address] [place], [place] | [place] [address] | | | | | [address] | | | | | | [phone] | | | +--------+ + + + [...]
--- OUTSIDE RECORDS SUMMARY | ~2020-04-02 | XMS | Encounter Summary ---
Demographics + + + | Address | [address] | | | [place] [address] | + + + | Home Phone [...] Providers + +------+ + | Care Field Merchandiser Name | Role | Phone | + [...] | | | | | | [place] | | | | | | | COLONOSCOPY, | | | | | | | FLEX, | | | | | | | W/BIOPSY OR | | | | | | | UPPER GI | | | | | | | ENDOSCOPY,BI | | | | | | | OPSY OR | | | | | | [...] Jennifer Redman | | | | | ([facility] at [facility] [address] | [place], [place] | | | | | [address] | [address] | | | | | Mailcode: [place] | [phone] | | | | | for Health and | | | | | | Healing, Building [address] | | | | | | [place], [place] | | | | | | [address] | | | | | | [phone] | | | +--------+ + + + [...] the endoscopy department toll free ext. [phone] or . After business hours or on weekends and holidays call the Hospital Oil And Gas Field Technician toll free [phone] ext. [phone] and have the GI doctor psychological operations paged. The provider who performed your procedure: [...] om the original. PRE PROCEDURE NOTE: MR# [id number] Subjective: Demian Nina is a 50 y.o. [...] (220 lb) | SpO2 96% | B AK 37.76 kg/m | BSA 2.12 m Neuro: [...] visitor policy. Name and number of responsible alliance party: [employer] transport reached at [phone] Ok to contact this person with results [...] clinic or the entry check points Responsible alliance party policy reviewed: Demian Nina verbalizes understanding and agreement with current visitor policy and drop off and product picker plan: 1. No visitors are allowed in clinical areas. Your responsible alliance party will drop you off and pick you up at (say appropriate location and delete remaining options) - [address] at [facility] - a staff member will greet you in the drive through d rop off on arrival. - [facility]- Enter [facility] on 9th floor of [facility] and check i n at the admitting desk. Admitting will contact the procedure unit, and our staff will come to get you. Your responsible alliance party will pick you up at the front doors of [facility] when you are ready for discharge. 2. After check in, but prior to your procedure, a nurse will call your responsible alliance party to verify the plan and review expected time line for procedure/recovery. 3. During the procedure, do not have you family/ride wait in any of the parking garages, wh ere there is no cellular reception manager. Tell responsible alliance party to check their phone, and please wait in a place with good reception manager. 4. After your procedure, your procedure doctor will contact you by phone on the number timmy ng used to reach your responsible alliance party for product picker unless you request a different contact f or this. What is the name and mobile number of the person driving you home? [employer] Is this the same person you would [...] questions they can call us back at [phone] ctronically signed by Eloisa Desir at 01/04/2020 12:11 PM PDTPreprocedure Instructions - Beverley Young - 2020 2:53 PM PDT I left voicemail with Demian Nina, including details about date and time of procedu re, need for responsible alliance party, current no visitor policy, importance of reviewing and follo wing the preparation instructions carefully, and call if any questions about their procedure and preparation. "Hi this santa Lowery from [facility]. I'm calling to check in with [...] us back as soon as possible at [phone] to review these changes."Electronically signed by Beverley Clark at 2019 2:57 PM PDTPlan of Rommel Logan RN - 12/25/2019 1:07 PM PDTAsymptomatic COVID-19 Test order placed and faxed to [facility]. RN Contacted Penny conrad ([facility] RN) who confirmed receipt of faxed order and has scheduled patient for test ing on 01/07/2020. Rommel Matthews RN, BSN, CGRNElectronically signed by Rommel Matthews RN at 0 1:07 PM PDTPlan of Rommel Logan RN - 12/24/2019 4:42 PM PDTPatient will mendoza ve 48 hour pre-procedure COVID testing performed at [facility] on 020. RN spoke with [facility] RN (Linwood) to confirm ability to perform test. [facility] requested order for test faxed to facility. Linwood verbalized that she will contac t the patient and schedule the test upon receipt of order. Order request sent to Dr. Sandhu . Hi Dr. Sandhu, Please fax a COVID-19 test request to [facility] for: Demian Nina 1970 [id number] 01/09/2020 EGD/COLO "Asymptomatic pt needs COVID testing 2 days prior to procedure on___ at [facility]. Please fax re larissa SEPULVEDA to ___. " Fax order to [phone] Thank you, Jay Matthews RN, BSN, CGRN lan of Care - Rommel Liu RN - 12/24/2019 2:22 PM PDTERX for golytely plus had been sent to [facility] on 12/21/19. RN contacted [facility] [address] [place] to confirm receipt of ERX. Pharmacist confirmed receipt of ERX. RN spoke with patient via telephone re: COVID testing. RN offered testing at [facility] in [facility]. Patient stated that she would come into [place] for COVID t sophying. RN reviewed testing will be at the [facility] in [place] on 01/07/2020 between 1200 and 1800. Patient confirmed receipt of procedure instructions via email. RN encouraged juani nt to review instructions and contact [phone] with any questions. Patient verbalized un derstanding [...] PathologistPathology, | | | | | | [facility] | | | | | | [...] number | | | | | | [phone].A. Duodenum, | | | | | | [...] | + + + + + | [facility] DEPARTMENT OF | [address] | [place] [address] | | | PATHOLOGY | [address] | | | + + + + + | [facility] | [address] | [place] [address] | | | SERVICES, CENTER FOR | [...] 70 - 99 mg/dL | [facility], | | | GLUCOSE, | | [...] + + + + | [facility], [place] | [address] [facility] [address] | [place] [address] | | | OF CARE TESTS | | | | + + + + + COLONOSCOPY (01/09/2020 7:17 AM PDT) + + | Specimen | + + | | + + + + + | Narrative | Performed At | + + + | MRN: | [facility] | | [id number] Date: 01/09/2020Patient Name: Demian Hooker #: | ENDOSCOPY | | [id number] of : 1970CSN: [id number] Type: | | | AmbulatoryRoom: Endo 6Procedure: | | | ColonoscopyIndications: Abdominal painProviders: | | | LEYDI SANDHU MD (Doctor), SANTO ALONSO RN | | | (Nurse), ELOISA DESIR (Recreational Assistant)Referring MD: | | | ANNETTE JORGENSEN-CRequestalysia Provider: [...] the procedure. The Olympus | | | [id number] Colonoscope #[id number] was introduced | | | through the [...] evaluated | | | using the BBPS (Welton Bowel | | | Preparation Scale) with [...] + | MRN: | [facility] | | [id number] Date: 01/09/2020Patient Name: Demian Hooker #: | ENDOSCOPY | | [id number] of : 1970CSN: [id number] Type: | | | AmbulatoryRoom: Endo 6Procedure: Upper GI | | | endoscopyIndications: Abdominal painProviders: | | | LEYDI SANDHU MD (Doctor), SANTO ALONSO RN | | | (Nurse), ELOISA DESIR (Recreational Assistant)Referring MD: | | | ANNETTE JORGENSEN-CRequesting Provider: [...] | | | The Olympus [id number] Gastroscope #[id number] was | | | introduced through the [...] + + | Performing | Address | City/State/[facility] Cent[facility]ode | Phone Number | [...]
--- OUTSIDE RECORDS SUMMARY | ~2020-04-02 | XMS | Encounter Summary ---
Demographics + + + | Address | [address] | | | [place] [address] | + + + | Home Phone [...] [place] | | | | | [address] | | + + + + + | Pratibha Hester | ECON | Unknown | + | + + + + + | Demian Powell | ECON | Unknown | + | + + + + + Care Team Providers + +------+ + | Care Book Cleaner Name | Role | Phone | [...] + + | 06/23/ | Telephone | [facility] | Sascha Mir, | Other | | 2014 | | NEUROSURGERY [address] | DO [address] | | | | | [address] | [address] [place], [place] | | | | | [place] | [id number] | | | | | [address] | | | | | | [phone] | | | +--------+ + + + [...] explained to her the type of messages [place] has been sending out o ffice. She [...] 06/24/2015 8:17 AM PSTVM left for patient child care specialist for Dr. Manriquez today requesting a call [...]
--- OUTSIDE RECORDS SUMMARY | ~2020-04-02 | XMS | Encounter Summary ---
Demographics + + + | Address | [address] | | | [place] [address] | + + + | Home Phone [...] [place] | | | | | [address] | | + + + + + | Pratibha Hester | ECON | Unknown | + | + + + + + | Demian Powell | ECON | Unknown | + | + + + + + Care Team Providers + +------+ + | Care Insurance Sales Agent Name | Role | Phone [...] | | | | S/P lumbar | [address] | | | | | | fusion | Phone: | | | | | | | [phone] | | | | | | | Fax: | | | | | | | [phone] | | +--------+ + + + + [...] | | | | | radicular | [address] | [address] Phone: | | | | | pain | Phone: | [phone] | | | | | | [phone] | Fax: | | | | | | Fax: | [phone] | | | | | | [phone] | | +--------+ + + + + [...] [address] | [place] TONY MD | Lumbar | | | | [place] | [address] | radiculopathy; S/P | | | | [address] | | lumbar fusion; | | | | [phone] | | Sacroiliitis; Morbid | | | | | | obesity due to | | | | | | excess calories | | | | | | ([facility]) | +--------+---------+ + + + Social [...] 8:21 AM PST Roger Triplett MD [address] [facility], [address] [place], [place] [id number] FAX: PHYSICAL MEDICINE AND REHABILITATION H&P CHIEF [...] no apparent deficits with short or termite helper memory. She has appropriate fund of knowledge [...]
--- OUTSIDE RECORDS SUMMARY | ~2020-04-02 | XMS | Encounter Summary ---
Demographics + + + | Address | [address] | | | [place] [address] | + + + | Home Phone [...] Author | [facility] | | | and [place] | + + + | Organization | [facility] | | | [...] [place] | | | | | [address] | | + + + + + | Pratibha Hester | ECON | Unknown | + | + + + + + | Demian Powell | ECON | Unknown | + | + + + + + Care Team Providers + +------+ + | Care Medical Sales Associate Name | Role | Phone | [...] | | | lumbar | [address] [place] [address] | | | | | spinal | [address] | [address] | | | | | fusion Back | [address] | AVE | | | | | pain, | [address] | [place], [place] | | | | | unspecified | Phone: | [address] | | | | | location | [phone] | Phone: | | | | | Radiculopath | Fax: | [phone] | | | | | y, | [phone] | Fax: | | | | | unspecified | | [phone] | | | | | spinal | [...] | | | | [place] | [id number] | | | | | [address] | | | | | | [phone] | | | +--------+ + + + [...] scheduled. I did leave a message at [facility] with Sharon for Dr. Up. ELINA FAIRBANKS elephone Sascha Pearson DO - 04/03/2015 6:01 PM PDTThat will not be useful. Please order a CT myelogram of the lumbar spine instead. Thanks. elephone En[place] unter - Elina Fairbanks Cert MA - 04/03/2015 2:30 PM PDTI got a call today from Dr. Annel arroyo the Radiology dept. At [facility] stating that they did an MRI without contrast for [place] today , but because of the scar [...]
--- OUTSIDE RECORDS SUMMARY | ~2020-04-02 | XMS | Encounter Summary ---
Demographics + + + | Address | [address] | | | [place] [address] | + + + | Home Phone [...] Team Providers + +------+ + | Care Presetter Operator Name | Role | Phone | [...] | [facility] [address] | [facility] | | | | | [address] | [place], [place] | | | | | Physician's | [address] | | | | | Pavilion, 2nd floor | [phone] | | | | | [place], [place] | | | | | | [address] | | | | | | [phone] | | | +--------+ + + + [...] sent to the fax # listed below: [phone] (fax) - [facility] Electronically signed by Gracie Membreno at 04/2014 8:27 AM PDTdocumented in this encounter Plan of Treatment Not on filedocumented as of this encounter Visit Diagnoses Not on filedocumented in this encounter"
--- OUTSIDE RECORDS SUMMARY | ~2020-04-02 | XMS | Encounter Summary ---
Demographics + + + | Address | [address] | | | [place] [address] | + + + | Home Phone [...] + | Author | [facility] | | | and [place] | + + + | Organization | [facility] | | | [...] [place] | | | | | [address] | | + + + + + | Pratibha Hester | ECON | Unknown | + | + + + + + | Demian Powell | ECON | Unknown | + | + + + + + Care Team Providers + +------+ + | Care Supervisor Wound Name | Role | Phone | + [...] NEUROSURGERY [address] | [facility] [address] | FOR SURGERY) | | | | [address] | [address] [place] [address] | | | | | [place] | [address] | | | | | [address] | [phone] | | | | | [phone] | | | +--------+ + + + [...] who will be placing this today with [place] insurance. Natalie elephone Encounter - [place] Ari[place] - 09/29/2012 8:53 AM PSTDawbeatriz from [facility] called to give surgery authorization Authorization #: [id number] Valid dates:09/20/12-12/18/12 with up to a 3 night in patient stay Codes Authorized: [id number] They do not have a official referral [...]
--- OUTSIDE RECORDS SUMMARY | ~2020-04-02 | XMS | Encounter Summary ---
Demographics + + + | Address | [address] | | | [place] [address] | + + + | Home Phone [...] [place] | | | | | [address] | | + + + + + | Pratibha Hester | ECON | Unknown | + | + + + + + | Demian Powell | ECON | Unknown | + | + + + + + Care Team Providers + +------+ + | Care Piccoloist Name | Role | Phone | + [...] + | 12/10/ | Telephone | [facility] | Sascha Mir, | Other (surgery | | 2014 | | NEUROSURGERY [address] | DO [address] | reminder ) | | | | [address] [facility] [address] | [address] [place] | | | | | [place] | [address] | | | | | [address] | | | | | | [phone] | | | +--------+ + + + [...] do not wear jewelry, contact lenses, nail romanian (on fingers or toes), or make-up to surgery check-in. If you have dentures, or hearing aids please bring the cases to check-in. Medications instructions: Aspirin, Ibuprofen documented in this encounter Plan of Treatment Not on filedocumented as of this encounter Visit Diagnoses Not on filedocumented in this encounter"
--- OUTSIDE RECORDS SUMMARY | ~2020-04-02 | XMS | Encounter Summary ---
Demographics + + + | Address | [address] | | | [place] [address] | + + + | Home Phone [...] Providers + +------+ + | Care Crusher Feeder Name | Role | Phone | [...] | Center at [facility] [address] | MD [address] | | | | | [address] [place] | [facility] [place] | | | | | [facility] and | [address] | | | | | [facility], [address] | [phone] | | | | | [place], [place] | | | | | | [address] | | | | | | [phone] | | | +--------+ + + + [...] ouse, caregiver, medical office, etc): Linwood from [facility] Reason for call: Calling to state they can do a COVID-19 test for the pt prior to her proc on 01/07 but they need an order. Provider / Specialty: francis espinal Call back number confirmed?: yes Best call back number / ext: [phone] / noted under contact or phone tab. Caller would like a call back to discuss. Ok to leave a detailed message?: yes Fax number: [phone] documented in this encoun ter Plan of Treatment Not on filedocumented as of this encounter Visit Diagnoses Not on filedocumented in this encounter"
--- OUTSIDE RECORDS SUMMARY | ~2020-04-02 | XMS | Encounter Summary ---
Demographics + + + | Address | [address] | | | [place] [address] | + + + | Home Phone [...] [place] | | | | | [address] | | + + + + + | Pratibha Hester | ECON | Unknown | + | + + + + + | Demian Powell | ECON | Unknown | + | + + + + + Care Team Providers + +------+ + | Care Employment Agency Manager Name | Role | Phone | + +------+ + | Quentin Manriquez PA-C | MARCK | | + +------+ + Encounter Details +--------+ + + + + | Date | Type | Department | Care Team | Description | +--------+ + + + + | 09/19/ | Abstract | [facility] | Sascha Mir, | | | 2014 | | NEUROSURGERY [address] | DO [address] | | | | | [address] [facility] [address] | [address] [place], [place] | | | | | [place], [place] | [address] | | | | | [address] | | | | | | [phone] | | | +--------+ + + + [...]
--- OUTSIDE RECORDS SUMMARY | ~2020-04-02 | XMS | Encounter Summary ---
Demographics + + + | Address | [address] | | | [place] [address] | + + + | Home Phone [...] [place] | | | | | [address] | | + + + + + | Pratibha Hester | ECON | Unknown | + | + + + + + | Demian Powell | ECON | Unknown | + | + + + + + Care Team Providers + +------+ + | Care Files Supervisor Name | Role | Phone | + +------+ + | Quentin Manriquez PA-C | MARCK | | + +------+ + Encounter Details +--------+ + + + + | Date | Type | Department | Care Team | Description | +--------+ + + + + | 09/26/ | Hospital | [facility] | Sascha Mir, | Displacement of | | 2014 | Encounter | MED CTR XRAY [address] | DO [address] | lumbar | | | | [place] | [address] | intervertebral disc | | | | [place] [address] | [id number] | without myelopathy | | | | [phone] | | | +--------+ + + + [...] | | HISTORY:Back pain COMPARISON: MRI from [facility] dated | [facility] | | June 25, 2014 and [...] | 09/26/2014 8:51 AMHISTORY:Back painCOMPARISON: MRI from [facility] dated | | June 25, 2014 [...] + | [facility] | [address] | [place] | [phone] | | [facility] | | [address] | | | - IMAGING | | | | + + + + + documented in this encounter Visit Diagnoses + + | Diagnosis | + + | Displacement of lumbar intervertebral disc without myelopathy | + + documented in this encounter"
--- OUTSIDE RECORDS SUMMARY | ~2020-04-02 | XMS | Encounter Summary ---
Demographics + + + | Address | [address] | | | [place] [address] | + + + | Home Phone [...] [place] | | | | | [address] | | + + + + + | Pratibha Hester | ECON | Unknown | + | + + + + + | Demian Powell | ECON | Unknown | + | + + + + + Care Team Providers + +------+ + | Care Lumber Driver Name | Role | Phone | [...] | 03/31/ | Refill | [facility] | Sascha Mir, | Medication Refill | | 2014 | | NEUROSURGERY [address] | DO [address] | | | | | [address] | [address] [place] | | | | | [place] | [address] | | | | | [address] | | | | | | [phone] | | | +--------+--------+ + + + [...] Brown RN - 04/07/2015 10:10 AM PDTContacted [facility]. The zofran prescription has been filled since [...] Assi stant - 03/31/2015 4:35 PM PDTCalled [facility] and spoke with William. Called in metaxalone (SKELAXIN) 800 mg. #60, #1 refill.suman 1 tablet PO 3 times daily as needed for Mus geovanna spasms. Medication approved. Called patient to inform her the medication is at the [facility] and relayed ANNETTE Duggan's instructions. [facility] for return call. Lily Mann elephone Encounter [...] 3:53 PM PDTTelephone Encounter - Lenka Mann, Delphi Programmer - 03/31/20 2:58 PM PDTMedication Refill Request Procedure: [id number] Date of Surgery: 12/12/14 Medication requested: Zofran [...] in to preferred pharmacy? Call into pharmacy ([facility]) Please approve/deny Lily Mann d ocumented in this encounter Plan of Treatment Not on filedocumented as of this encounter Visit Diagnoses + + | Diagnosis | + + | Nausea - Primary Nausea alone | + + | S/P lumbar fusion Arthrodesis status | + + documented in this encounter
--- OUTSIDE RECORDS SUMMARY | ~2020-04-02 | XMS | Encounter Summary ---
Demographics + + + | Address | [address] | | | [place] [address] | + + + | Home Phone [...] [place] | | | | | [address] | | + + + + + | Pratibha Hester | ECON | Unknown | + | + + + + + | Demian Powell | ECON | Unknown | + | + + + + + Care Team Providers + +------+ + | Care Lead Applications Developer Name | Role | Phone | [...] | | | spondylolist | | [address] | | | | | hesis | | [place], | | | | | Acquired | | [place] [address] | | | | | spondylolist | | Phone: | | | | | hesis | | [phone] | | | | | Procedures | | Fax: | | | | | PA ARTHDSIS | | [phone] | | | | | POST/POSTERO | [...] + + | 12/12/ | Surgery | [facility] | Sascha Mir, | L5-S1 Transforaminal | | 2015 | | MED CTR OR INTRA OP | DO [address] | Lumbar Interbody | | | | [address] | [address] | Fusion | | | | [place], [place] | [id number] | | | | | [address] | | | | | | [phone] | | | +--------+---------+ + + + [...] of admission the patient was admitted to [facility] and underwent a L5-S1 fusion . [...] mobility and she was ultimately discharged to [facility]. Medications Reconciled upon Discharge are: Discharge Medications [...] Discharge: Stable Disposition: Patient was discharged to [facility]. Follow-Up Plans: Follow-up with: Dr. Mir's office in 4 weeks Follow-up with primary care physician as needed. Diet: Resume regular diet Activity: Continue to follow guidelines and precautions as previously discussed. Electronically signed by: Amol Triplett, 12/16/2014 7:45 [facility] documented in this encounter Discharge Instructions Instructions [...] might be different f rom the original. [facility] NEUROSURGERY PROGRESS NOTE Pt. Name/Age/: [...] She is reay to go t o [facility] [place]. No further C/C OBJECTIVE: Patient Vitals for [...] ASSESSMENT:SP L5-S1 fuison Plan:B Brace. DC to [place] today. See DC summary. Electronically signed by: Amol Triplett, 12/16/2014 7:36 [facility] Sascha Beck DO - 12/15/2014 9:20 AM PDT Subjective The patient was seen and examined by me today. She complains of of left tingling - improved from numbness, and left leg dysesthesia. Her l egs feel strong. Moderate surgical pain, but tolerable. She would like to go to SNF in [facility] et before discharge home. Objective Filed [...] would like to go to SNF in [facility] et before discharge home. Objective Filed [...] Range POC Test, Urine Negative POC Specific [place] Internal QC Acceptable Lot Number [id number] Expiration Date POC GLUCOSE Result Value Ref [...] Sascha Mir DO - 12[facility]12/2014 9[facility] AND PHYSICAL [...] Electronically signed by: Sascha Mir, 12/12/2014 9:09 [facility] reySascha maxwell DO - 12/12/2014 9:09 AM PDT [address] [facility], [address] [place] [address] FAX: NEUROSURGERY HISTORY AND PHYSICAL EXAMINATION CHIEF [...] 12/16/2014 9:22 AM PDTTalked with Rene @ [facility], she will run the Insurance and call back. I informed her that we do have discharge orders. Electronically signed by: Yue Wing 12/16/2014 9:23 Rene called back, they can accept Demian today. Faxed orders, PASRR, discharge summary and RX to [facility]. Received the "Communication result report" (result OK) Packet is ready. Demian will call her mom for a ride. Received a call from [facility], requesting the [facility] orders to be faxed to [phone]. Faxed. Received "communication result report" (result ok) NF Transfer - Dash Triplett PA - 12/16/2014 7:43 AM PDTFormatting of this note might be different from the orig inal. [facility] FACILITY TRANSFER ORDERS Patient Name: Demian Nina Patient : 1970 Gender: female Date of Admission: 12/12/2014 Date of Discharge: 12/16/2014 Admitting Provider: Sascha Mir DO Discharging Provider: ANNETTE Gutierrez Consultants: none PCP: Quentin Manriquez [facility] transferring to: Анна Provider after transfer: PCP and Анна ANAND CODE STATUS: [x] Attempt CPR [] Do not resuscitate If patient is pulseless and not breathing, RN/DIRECTOR CLOUD TRANSFORMATION may pronounce . Advanced Directives included: [] [...] HPV, QUADRIVALENT, 3 DOSE (ADOL/ADULT) 05/18/2013 INFLUENZA, [id number], ALL FORMULATIONS 08/05/2009 INFLUENZA, HIGH DOSE SEASONAL (ADULT) 05/07/2014 PNEUMOCOCCAL, UNSPECIFIED FORMULATION 07/07/2010 Diet: [x] As tolerated FACTORY FOCUS TECHNICIAN may upgrade or downgrade diet as condition Indicates. [x] RN may downgrade diet as indicated. Type: [] Continue current diet of: Diet and Supplements Diet DIET GENERAL Number of Occurrences: Until Specified [] Other: Consistency/Precautions: [] Whole [] Thin Liquids [] Cut-up [] [place] Thick [] Advanced Chopped [] Honey Thickened [] Chopped [] Advanced Ground [] 1:1 feedings [] Ground/Pureed [] Other: Tube Feedings: [] PEG [] GT [] JT [] NGT [] Formula type: (Moisture Machine Tender may change/substitute if indicated). [] Continuous Rate: [...] [x] OT Evaluation & Management for: [] FACTORY FOCUS TECHNICIAN Evaluation &Management for: [] Other: Wound/Skin Care: [...] I, ANNETTE Gutierrez, certify that post hospital 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 care is medically nece ssary on a continuing basis for any of the conditions for which he/she received care during this hospitalization. Check one: [x] Skilled [] Intermediate Additional Orders/Instructions: Physician's signature: Amol Triplett PA-C_12/16/2014 7:43 [facility] USE ONLY: [] Admitting [...] later today t o a rehab in [facility]. Electronically signed by: Giana Rausch RRT [...] the same. Pt plans to go to [facility] for a few days if possible prior [...] with family/caregiver after short term rehab at [facility] Post discharge physical therapy recommendation: outpatient therapy (when ordered by Dr. Dr alcocer) Plan for next treatment: 1P;KH;check on pt prior to planned d/c to [facility] tomorrow . Electronically signed by: Nuvia Dove, PT, 12/15/2014 15:18 lan of Care - Yue Tinsley - 12/15/2014 10:35 AM PDTDischarge Planning: Demian would like to go to [facility] for a short stay prior to going home. She signed the "SNF options form" Placed the signed form in the ghost chart. Faxed referral to [facility]. Received the "Communication result Report" (Result ok) place d the fax in the ghost chart. Will need prior auth from her Insurance company prior to discharge. Demian will be ready for discharge tomorrow. Her mother will transport her at discharge. Electronically signed by: Yue Wing 12/15/2014 10:40 Terrie called from [facility], said everything looks good, they will run her Insurance in the AM lan of Roseline Batres, ELECTRICAL HELPER - 12/15/2014 1:49 AM PDTProblem: General Plan [...] Sup 12-14 Stairs Assessment: Pt with improved bagman/woman on L but still with continued weakness, [...] transfer mod independent. Discussion with patient regarding amki g on LB dressing techniques, she denied at this time stating that she feels comfortable with what she did yesterday. Patient Status/Goals Reflects last filed data of patient status; may be from multiple contributors. FIM: FIM Transfers Bed/Chair/Wheelchair: 3 Bed/Chair/WC Score Evidence: 3 Lift Two Legs Toilet: 6 Toilet Transfer Evidence: 6 Extra Time, 6 Raised Toilet Seat Dixon FIM Self Care Groomin Grooming Score Evidence: [...] likely being d/c home to to SNF akuasc antwon. Occupational Therapy Discharge Recommendations are: Recommended [...] WILLIAMS, 12/14/2014 14:52 lan of Kartik - Draek Paulino RRT - 12/14/2014 3:52 AM PDTProblem: [...] minimal amount serosanguious drainage. lan of Eloisa Qiuroz OT - 12/13/2014 3:15 PM PDTFormatting of [...] verbal cuing. Donned underwear w/o use of chief technologist but may benefit to increase ease. Sit-s tand w/ SBA & light CGA to loop puller hips. Tolerated standing @ sink to [...] Recommendations: shower chair, tub bench, sock aide, chief technologist, front wheeled walk er Planned Interventions:Planned Therapy [...] Iqbal OT, 12/13/2014 15:15 lan of [facility] Jazlyn Kelly, ELECTRICAL HELPER - 12/13/2014 3:10 PM PDTProblem: General Plan of Care (Adult, Obstetrics) Goal: Care Plan Shift Summary & Review . Outcome: Progressing Pt meets goals with IS. Working with PT. Has albuterol MDI at home for PRN use, order rec eived from for same. Given this morning with improvement. lan of [facility] Nuvia Stinson, PT - 12/13/2014 10:28 [...] tin gling to left leg and foot. Long Chain Beamer strong, right foot stong, but left foot [...] lan of Care - P Rekha mendez ELECTRICAL HELPER - 12/12/2014 9:30 PM PDTProblem: General Plan of Care (Adult, Obstetric s) Goal: Care Plan Shift Summary & Review . Outcome: Progressing BS clear. Patient achieving 2500 of Predicted Level (mL)(Incentive Spirometer): 2300. SpO 2: 95 % on 3liters/minute nasal cannula. Will continue to monitor. p Note - Sascha Mir DO - 12/12/2014 6:49 PM PDTDATE: 12/12/2014 SURGEON: Sascha Mir DO. CORPORATE LEGAL MANAGER: None. PREOPERATIVE DIAGNOSES 1. Spondylolisthesis, L5-S1. [...] maintain control o f core body temperature. Burogs catheter was not inserted. The patient was [...] 26 mm Ti-coated Capstone PEEK cage from [employer] was chosen. It was filled with Infuse [...] Note Demian Nina 44 y.o. female 1970 [id number] Proc. Date 12/12/2014 Preop Dx Acquired spondylolisthesis Postop Dx same Procedure Procedure(s):L5-S1 Transforaminal Lumbar Interbody Fusion Anesthesia General Surgeon Surgeon(s) and Role: * Sascha Mir DO - Primary Thermoforming Machine Operator NA EBL 100 mL Findings [...] by: Sascha Mir DO 12/12/2014 18:48 [facility] lan of Rekha Walsh RRT - 12/12/2014 [...] Sit To Supine, Rehab Eval Level Of Dixon: Sit/Supine: moderate assist (50% patients effort) Physical Assist/Nonphysical Assist: Sit/Supine: 1 person assist, verbal cues Assistive Device: Sit/Supine: bed rails Goal Bed Mobility Sit to Supine Sit to Supine STG Status: New STG Bed Mobility Sit to Supine: independent Bed Mobility Skill: Supine To Sit, Rehab Eval Level Of Dixon: Supine/Sit: moderate assist (50% patients effort) Physical Assist/Nonphysical Assist: Supine/Sit: 1 person assist, verbal cues Assistive Device: Supine/Sit: bed rails Goal Bed Mobility Supine to Sit Supine to Sit STG Status: New STG Bed Mobility Supine to Sit : independent Transfers Transfer Skill: Sit To Stand, Rehab Eval Level Of Dixon: Sit/Stand: minimum assist (75% patients effort) Physical Assist/Nonphysical Assist: Sit/Stand: 1 person assist, verbal cues (from raised be d) Assistive Device For Transfer: Sit/Stand: 2 wheeled walker Goal Transfers Sit to Stand Sit to Stand STG Status: New STG Transfers Sit to Stand : modified independent Gait Gait Skills, PT Eval Level Of Dixon: Gait: contact guard assist (75% patient effort) [...] DM, pelvic inflammatory disease, and hx of VA . Rehab Potential: good, to achieve stated [...] | of hardware for posterior fusion from X0ayebrrj S1 with interbody hardware at L5-S1. | [...] + + | Performing | Address | City/State/[facility]alscode | Phone Number | | Organization | [...] + | [facility] | [address] | [place] | [phone] | | [facility] | | [address] | | | - LABORATORY | | [...] Specific | | | | | | [place], | | | | | | POC | | | | | + + + + + + | Internal QC | Acceptable | | | | + + + + + + | Lot Number | [id number] | | | | + + + [...] [address] | [place] | [phone] | | [facility] | | [address] | | | - LABORATORY | | [...] | | [facility] | | [address] | | | - BLOOD BANK | [...]
--- OUTSIDE RECORDS SUMMARY | ~2020-04-02 | XMS | Encounter Summary ---
Demographics + + + | Address | [address] | | | [place] [address] | + + + | Home Phone [...] Team Providers + +------+ + | Care In Process Inspector Name | Role | Phone | + +------+ + | Gracie Lewis PA-C | PCP | | + +------+ + Encounter Details +--------+ + + + + | Date | Type | Department | Care Team | Description | +--------+ + + + + | 01/06/ | Documentati | [facility] at [facility] | Jeanna Sandhu, | | | 2020 | on | [facility] [address] | MD [address] | | | | | [facility] | [place], [place] | | | | | Health and Healing, | [address] | | | | | [address] | [phone] | | | | | [place], [place] | | | | | | [address] | | | | | | [phone] | | | +--------+ + + + [...]
--- OUTSIDE RECORDS SUMMARY | ~2020-04-02 | XMS | Encounter Summary ---
Demographics + + + | Address | [address] | | | [place] [address] | + + + | Home Phone [...] [place] | | | | | [address] | | + + + + + | Pratibha Hester | ECON | Unknown | + | + + + + + | Demian Powell | ECON | Unknown | + | + + + + + Care Team Providers + +------+ + | Care Medical Device Engineer Name | Role | Phone | [...] [address] | [address] [place], [place] | | | | | [place] | [address] | | | | | [address] | | | | | | [phone] | | | +--------+--------+ + + + [...]
--- OUTSIDE RECORDS SUMMARY | ~2020-04-02 | XMS | Encounter Summary ---
Demographics + + + | Address | [address] | | | [place] [address] | + + + | Home Phone [...] [place] | | | | | [address] | | + + + + + | Pratibha Hester | ECON | Unknown | + | + + + + + | Demian Powell | ECON | Unknown | + | + + + + + Care Team Providers + +------+ + | Care Relief Map Modeler Name | Role | Phone | + +------+ + | Jannette Boyle PA-C | PCP | | + +------+ + Encounter Details +--------+ + + + + | Date | Type | Department | Care Team | Description | +--------+ + + + + | 09/27/ | Orders Only | [facility] | Sascha Mir, | Back pain, | | 2017 | | NEUROSURGERY [address] | DO [address] | unspecified back | | | | [address] | [address] [place], [place] | location, | | | | [place], [place] | [address] | unspecified back | | | | [address] | | pain laterality, | | | | [phone] | | unspecified | | | | [...]
--- OUTSIDE RECORDS SUMMARY | ~2020-04-02 | XMS | Encounter Summary ---
Demographics + + + | Address | [address] | | | [place] [address] | + + + | Home Phone [...] [place] | | | | | [address] | | + + + + + | Pratibha Hester | ECON | Unknown | + | + + + + + | Demian Powell | ECON | Unknown | + | + + + + + Care Team Providers + +------+ + | Care Barrel Raiser Helper Name | Role | Phone | [...] [address] | [address] [place] | | | | | [place] | [address] | | | | | [address] | | | | | | [phone] | | | +--------+ + + + [...] k was left on the front desk attendant in our office with a note attached [...]
--- OUTSIDE RECORDS SUMMARY | ~2020-04-02 | XMS | Encounter Summary ---
Demographics + + + | Address | [address] | | | [place] [address] | + + + | Home Phone [...] [place] | | | | | [address] | | + + + + + | Pratibha Hester | ECON | Unknown | + | + + + + + | Demian Powell | ECON | Unknown | + | + + + + + Care Team Providers + +------+ + | Care Multiple Effect Evaporator Operator Name | Role | Phone | [...] | | | - CARDIAC | PA-C [address] | [address] | | | | | CLEARANCE | [address] | [address] | | | | | | [place] | [place] | | | | | | [place] [address] | [place], [place] | | | | | | Phone: | [phone] Phone: | | | | | | [phone] | [phone] | | | | | | Fax: | Fax: | | | | | | [phone] | [phone] | +--------+--------+ + + + + Encounter Details +--------+---------+ + + + | Date | Type | Department | Care Team | Description | +--------+---------+ + + + | 09/25/ | Office | [facility] | Rudy Osullivan, | Atypical chest pain | | 2020 | Visit | CARDIOLOGY [place] | MD [address] | (Primary Dx); | | | | [address] [facility] | [place] [address], | Essential | | | | [address] | [place] [address] | hypertension; | | | | [place], [place] | [phone] | Preoperative | | | | [address] | | cardiovascular | | | | [phone] | | examination; | | | | [...] recently on an emergency room visit at [facility] in August. See no reason [...] h/o an AAA. -- Echo (05/31/18 - [facility]): EF 60-65%, normal RV size, function, mild MR -- Coronary CT Calcium Score (06/12/14 - [facility]): -0-, low risk -- Exercise Cardiolite Stress Test (04/12/14 - [facility]): exercised 6:38, 7 METS, max HR 173, [...] Laterality Date ADENOIDECTOMY SECTION, LOW TRANSVERSE 1995 [facility]; [place] SECTION, LOW TRANSVERSE 2005 [facility]; [place] CHOLECYSTECTOMY LUMBAR LAMINECTOMY N/A [...] file Gets together: Not on file Attends taoism service: Not on file Active member of [...] 324 mg by mouth daily (with breakfast). Fcasixn-Ccegjqbmgxss-Gdggnnbni (TRI-RAJ) 0.01-4-0.05 % CREA APPLY TO CLEAN [...] at | | | | | | [facility])Confirmed by Shi | | | | | | Rudy ANAND ([id number]) on | | | | | | [...]
--- OUTSIDE RECORDS SUMMARY | ~2020-04-02 | XMS | Encounter Summary ---
Demographics + + + | Address | [address] | | | [place] [address] | + + + | Home Phone [...] + + + + + | Uche Nian | ECON | [address] | + | | | | [place] | | | | | [address] | | + + + + + | Pratibha Hester | ECON | Unknown | + | + + + + + | Demian Powell | ECON | Unknown | + | + + + + + Care Team Providers + +------+ + | Care Solar Electric Practitioner Name | Role | Phone | + [...] [address] | [address] [place], [place] | | | | | [place] | [address] | | | | | [address] | | | | | | [phone] | | | +--------+ + + + [...] 03/03/2015 11:47 AM PDTReturne d patients call. [facility] to return call. Lily Mann ele phone Encounter - Madiha Schilling - 03/03/2015 11:16 AM PDTLavobeatriz is having a hard time get ting her RX filled in at [facility], please advise. elephone Encounter - Elina Noonan Cert MA - 02/26/2015 2:57 PM PDTI called and LVM for [place] requesting a call back. Her Rx's for Diazepam and Oxycodone were placed in the mail to her this afternoon. Rx's fo r Zofran and Methocarbamol have been sent to [facility] in [place], [place]. ELINA NOONAN elephone Encounte r - [...] 3:22 PM PDTI left a VM for [place]. I cannot process this request without asking [...] Mer[facility] by Sepideh Mckay at 02/25/2015 11 :10 AM PDTdocumented in this encounter Plan of Treatment Not on filedocumented as of this encounter Visit Diagnoses + + | Diagnosis | + + | Nausea - Primary Nausea alone | + + documented in this encounter"
--- OUTSIDE RECORDS SUMMARY | ~2020-04-02 | XMS | Encounter Summary ---
Demographics + + + | Address | [address] | | | [place] [address] | + + + | Home Phone [...] Team Providers + +------+ + | Care Sluice Tender Name | Role | Phone | + +------+ + | Gracie Lewis PA-C | PCP | | + +------+ + Encounter Details +--------+ + + + + | Date | Type | Department | Care Team | Description | +--------+ + + + + | 10/19/ | Outside | [facility] | Angelo Abrams | | | 2019 | Referral | [facility] [address] | MD [address] | | | | Order | [facility] for | georget[place] | | | | | Health and Healing, | [place] [address] | | | | | [facility] [address] | [phone] | | | | | [place], [place] | | | | | | [address] | | | | | | [phone] | | | +--------+ + + + [...]
[~2020-04-02 17:42] MED LIST changes: -ADVAIR 100-501 EACH INH; +METFORMIN HCL500 M2 PO; -METFORMIN HYDRO25 GM MISC; +PROAIR HFA8.5 GM PO; -VENTOLIN HFA18 GM INH; +WIXELA 250-501 EACH PO
--- OUTSIDE RECORDS SUMMARY | 2020-04-02 17:44 | XMS ---
PreManage Notification: ANA MARIA TURCIOS Security Personal Attendant Events No recent Security Events currently on file CRITERIA MET - Group Notification - PDMP CARE PROVIDERS YULISA MELGAR [facility] 03/14/2018-Current PHONE: Unknown BOLIVAR SAVAGE Physician 03/15/2019-Current PHONE: Unknown Angelo Abrams [facility] 07/10/2018-Current PHONE: [phone] Name Andre Light/[place] 06/11/2019-Current PHONE: [phone] Claudia has no Care Guidelines for this patient. Care History Medical/Surgical 08/09/2019 [facility] \T\middot;\T\nbsp; PATIENT- [facility] ELIGIBLE \T\middot;\T\nbsp; PLEASE REFER PATIENT TO [facility] FOR NON EMERGENT MEDICAL NEEDS. \T\middot;\ T\nbsp; [facility] CAN SEE PATIENTS SAME DAY FOR APTS IF PATIENT CALLS FIRST THING IN THE MORNING. 05/16/2018 [facility] - PATIENT HAS A FOLLOW UP APT WITH DR ABRAMS ON 05/23. - [facility] FROM 05/15/18 CLINIC VISIT LISTED UNDER NOTES ON CLAUDIA. 04/18/2018 [facility] - Patient is currently working with Claudette TOBARliaison planner from [facility]- Contact ) if patient is seen in ED. - Claudette has educated patient on diabetic education, but patient is not willing to follow up with further education. - Patient request pain medications at every PCP visit. - Patient has declined mental health evaluation from [facility]. Care Recommendation: - USE EXTREME CAUTION IN GIVING NARCOTICS TO THIS PATIENT. - Avoid Discharge Narcotic prescriptions if at all possible. Please use clinical judgement. E.D. VISIT COUNT (12 MO.) 8 [facility] TOTAL 8 NOTE: Visits indicate total known visits. ED/UCC VISIT TRACKING (12 MO.) 04/02/2020 17:42 [facility] [place] TYPE: Emergency COMPLAINT: - SOB/ COVID 02/24/2020 17:36 [facility] [place] TYPE: Emergency COMPLAINT: - PAIN- CHEST/ARM DIAGNOSES: - Chest pain, unspecified - Latex allergy status - Allergy status to other drugs, medicaments and biological sub - Radiographic dye allergy status - Other chest pain - Allergy status to narcotic agent status - Other rn long term care (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 - terminal carman (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 - Essential (primary) hypertension [facility]2020 [facility] COMPLAINT: - MULTIPLE COMPLAINTS DIAGNOSES: - Weakness - Left lower quadrant pain - Latex allergy status - Type 2 diabetes mellitus with hyperglycemia - Radiographic dye allergy status - Allergy status to narcotic agent status - Allergy status to other drugs, medicaments and biological sub - Personal history of nicotine dependence - Other nursing home (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 - long-term (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 - Essential (primary) hypertension 12/09/2019 21:[address] [facility] [address] [facility] [place] TYPE: Emergency COMPLAINT: - POSSIBLE INFECTION DIAGNOSES: - Essential (primary) hypertension - Cutaneous abscess of perineum - Allergy status to narcotic agent status - Radiographic dye allergy status - Cutaneous abscess of perineum - Other nursing home (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 - Latex allergy status 10/12/2019 16:05 [facility] COMPLAINT: - HEADACHE, FACIAL SWELLING DIAGNOSES: - Headache - Unspecified asthma, uncomplicated - Type 2 diabetes mellitus without complications - Other rn long term care (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 - Chronic sinusitis, unspecified - Essential (primary) hypertension 09/17/2019 15:52 [facility] [place] TYPE: Emergency COMPLAINT: - PAINFUL URINATION DIAGNOSES: - Personal history of nicotine dependence - Radiographic dye allergy status - Other rn long term care (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 - Type 2 diabetes mellitus with hyperglycemia - Type 2 diabetes mellitus without complications - Essential (primary) hypertension - Candidiasis of skin and nail - Latex allergy status - terminal carman (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 - Allergy status [...] wall - Essential (primary) hypertension - Other nursing home (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 - terminal carman (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 - Allergy status to other drugs, medicaments and biological sub - Unspecified asthma, uncomplicated - Allergy status to narcotic agent status 06/08/2019 18:40 [facility] [place] TYPE: Emergency COMPLAINT: - CHEST PAIN DIAGNOSES: - Type 2 diabetes mellitus without complications - Allergy status to other drugs, medicaments and biological sub - Unspecified asthma, uncomplicated - Chest pain, unspecified - long-term (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 - Other rn long term care (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 - Allergy status to narcotic agent status - Essential (primary) hypertension - Radiographic dye allergy status - Latex allergy status INPATIENT VISIT TRACKING (12 MO.) No inpatient visits to display in this time frame [email or web address]
--- NOTE | 2020-04-02 23:15 | NUR ---
PT ADMITTED TO CCU PER STRETCHER FROM ED. ABLE TO MOVE SELF FROM STRETCHER TO BED. NO SOB. HAS BEEN ON 02 2L NC, INC TO 3 L SATS 89-90%. UNABLE TO LISTEN TO LUNGS DUE TO PPE. NEB GIVEN AND PT BETTY WELL. IV REMDISIVER GIVEN. BS 226 AND COVERED WITH 6 UNITS INSULIN. C/O DE 8/10 AND T 102.1, GIVEN 500MG TYLENOL PO. UP TO BSC TO VOID AND BETTY WELL.
--- NOTE | 2020-04-03 00:30 | NUR ---
GIVEN ERIC VICK PER PT REQUEST.
--- NOTE | 2020-04-03 02:30 | NUR ---
PT SLEEPING, LAYING ON SIDE.
--- NOTE | 2020-04-03 04:47 | NUR ---
HAS BEEN SLEEPING SOUNDLY. SATS NOTED TO BE 89%. O2 FOUND OFF PT, REPLACED. LABS DRAWN, ATTEMPTED SECOND IV SITE. PT WOULD FALL BACK TO SLEEP QUICKLY. TAKING WATER WELL. AFEBRILE.
--- NOTE | 2020-04-03 06:15 | NUR ---
DR VILLARREAL CALLED RE LABS. ORDERS RECIEVED. PT GIVEN 40MEQ POTASSIUM PO WITH SUGAR FREE PUDDING. STATES FEELING A LITTLE BETTER. HAD BEEN UP TO BSC TO VOID AND HAVE SMALL LIQ STOOL.
--- NOTE | 2020-04-03 09:23 | NUR ---
TO PATIENT ROOM FOR MORNING ASSESSMENT. PATIENT SITTING UP IN BED WATCHING TV WITH BED RAILS UP AND NASAL CANNULA IN PLACE. VITALS TAKEN, MORNING MEDICATIONS GIVEN, ASSESSMENT DONE. WITH THE LIKELY COURSE OF STAY, A PICC CONSULT HAS BEEN PLACED TO SECURE VASCULAR ACCESS. THE CURRENT IV IS PATENT BY HIGHLY POSITIONAL AND THE PATIENTS SKIN MAKES IT DIFFICULT TO START A PIV. PATIENT EDUCATED ON PICC PROCESS AND POBABLE COURSE OF MEDICATION. PATIENTS CBG WAS ASSESSED AND INSULIN GIVEN PER EMAR. PATIENT ATE BREAKFAST WITHOUT A PROBLEM AND VOIDED 325 THIS MORNING. PATIENT DENIES ANY FURTHER NEEDS AT THIS TIME. PATIENT LYING SEMI-FOWLERS WITH TWO RAILS UP, BEDSIDE TABLE, CALL LIGHT AND PHONE ALL WITHIN REACH.
--- NOTE | 2020-04-03 09:32 | NUR ---
IV ALARMING DISTAL OCCLUSION. IV SITE ASSESSED TO BE PATENT WITH NO SIGNS OF INFILTRATION. APPEARS TO BE POSITIONAL IN NATURE. IV RESTARTED. ROLLED DRAW SHEET PLACED UNDER THE PATIENTS ARM TO HELP KEEP IT STRAIGHT AND ATTEMPT TO AVOID IV ALARMING. PATIENT AGAIN EXPRESSES CONCERN THAT THE STEROIDS SHE IS GETTING COULD CAUSE LIVER DAMAGE. MD NOTIFIED IN UPDATE OF THIS CONCERN. PATIETN LYING SEMI-FOWLERS WITH THREE RAILS UP AT THIS TIME. CALL LIGHT, BEDSIDE TABLE, AND PHONE ALL WITHIN REACH. PATIENT DENIES ANY FURTHER NEEDS AT THIS TIME.
--- NOTE | 2020-04-03 10:34 | NUR ---
MET WITH PATIENT. CONTINUE CARE PLAN. PROMOTE ORAL FLUID INTAKE. PT EDUCATED ON POSSIBLE CONCERNS WITH THE USE OF STEROIDS SHE WAS CONCERNED THAT THEY MAY CAUSE LIVER DAMAGE. PT VERBILIZED UNDERSTANDING THAT OUR PRIMARY CONCERN WITH STEROIDS IS AN INCREASE IN BLOOD SUGAR AND THAT THERE IS RELATIVELY NO CONCERN TO THE LIVER WITH THE USE OF STEROIDS. PATIENT VERBALIZED UNDERSTANDING AND DENIES ANY FURTHER CONCERNS AT THIS TIME. IV PUMP CONTINUES TO ALARM PERIODICALLY DUE TO POSITION. PICC CONSULT PENDING. PATIENT ATE HALF OF HER BREAKFAST AND STATES, "I FEEL TIRED." O2 SATURATION 92% ON 3L NC. BP 100/54 (65) AT THIS TIME. ARM BOARD APPLIED TO ELBOW IN AN ATTEMPT TO KEEP THE ARM STRAIGHT AND AVOID IV PUMP ALARMING. PATIENT STATES A PAIN LEVEL OF 3/10 IN HER HIPS BUT STATES, "IT'S ALL OVER, MY WHOLE BODY ACHES." PAIN MEDICATION GIVEN PER EMAR. PATIENT DENIES ANY FURTHER NEEDS AT THIS TIME. PATIENT LYING SEMI-FOWLERS WITH THREE RAILS UP AT THIS TIME. BEDSIDE TABLE, CALL LIGHT, AND PHONE ARE ALL WIHIN REACH.
--- NOTE | 2020-04-03 10:34 | NUR ---
IN ROOM TO SEE PATIENT AT THIS TIME.
--- NOTE | 2020-04-03 11:50 | NUR ---
IV ALARMING COMPLETE. PATIENT STATES, "I NEED TO GO TO THE BATHROOM." PATIENT HELPED TO BSC. VOIDED 375ML. PATIENT BACK TO BED AND PICC NURSE HERE TO EVALUATE AND POTENTIALLY PLACE PICC.
--- NOTE | 2020-04-03 12:30 | NUR ---
PICC NURSE IN ROOM TO PLACE LINE. MIDLINE SELECTED. LEFT UPPER ARM. PATIENT TOLERATED INSERTION WELL. CBG WAS 304, INSULIN GIVEN PER EMAR. MIDLINE COMPLETE, LUNCH SET UP FOR PATIENT. PATIENT SITTING UP IN BED WITH TWO RAILS UP, EATING LUNCH. PATIENT DENIES ANY NEEDS AT THIS TIME. CALL LIGHT, BEDSIDE TABLE, AND PHONE ALL WITHIN REACH AT THIS TIME.
--- NOTE | 2020-04-03 13:00 | NUR ---
MIDLINE INSERTION NOTE: ASKED BY DR. MCLEAN TO EVALUATE PATIENT FOR POTENTIAL PICC LINE/MIDLINE PLACEMENT. DISCUSSED WITH PATIENT THE NEED FOR IV ACCESS AND THE DIFFERENCE BETWEEN THE PICC AND MIDLINE. PATIENT AGREEABLE TO BOTH. AFTER REVIEWING THE CHART AND DISCUSSING WITH PATIENT, NO ABSOLUTE CONTRAINDICATIONS WERE IDENTIFIED. PATIENT IS ALLERGIC TO LIDOCAINE, THEREFORE NONE WILL BE USED. PT'S LEFT ARM WAS EVALUATED FIRST USING THE SITE RITE U/S AND THE BASILIC VEIN WAS EASILY FOUND, AND ESTIMATED TO BE LARGE ENOUGH TO ACCOMODATE AN 8 FR CATHETER IN IT. THE CEPHALIC AND BRACIAL VEINS WERE NOT EASILY IDENTIFIED. AT THIS POINT, THE MIDLINE 10 CM KIT WAS CHOSEN FOR PATIENT'S NEEDS. AFTER FOLLOWING CDC RECOMMENDED GUIDELINES FOR STERILE PROCEDURE, THE PATIENT'S LEFT ARM WAS PREPPED AND READY. ACCESS INTO THE BASILIC VEIN WAS EASILY OBTAINED. THE NEEDLE TIP WAS VISUALIZED IN THE VEIN AND ATTEMPT WAS MADE TO SLOWLY ADVANCE NEEDLE INTO VEIN AGAIN AT A MORE SHALLOW ANGLE. GUIDEWIRE WAS THEN ADVANCED EASILY. CATHETER WAS THEN ADVANCED BUT WITH DIFFICULTY. BLOOD WAS NOTED IN THE CATHETER LUMEN, BUT AFTER GUIDEWIRE WAS REMOVED, NO BLOOD WAS RETURNED. SLOWLY, THE CATHETER WAS PULLED BACK UNTIL BLOOD WAS FLOWING BACK FROM THE CATHETER TIP. DARK, NON PULSATILE BLOOD WAS APPRECIATED. THE CATHETER WAS THEN FLOATED IN WITH AND BLOOD CONTINUED TO BE ABLE TO BE ASPIRATED. PATIENT TOLERATED THE PROCEURE WELL. STERILE DRESSING WITH BIO PATCH PLACED OVER CATHETER, AND SECUREMENT DEVICE. PATIENT INSTRUCTED TO ASK QUESTIONS AT ANY TIME ABOUT HER CATHETER. EDUCATION MATERIAL LEFT IN HER CHART.
--- NOTE | 2020-04-03 14:35 | NUR ---
INTO PATIENT ROOM FOR MED PASS. PATIENT SITTING ON EDGE OF BED AND STATES, "I NEED THE COMMODE" UPON ENTERING. PATIENT TRASFERS SELF TO BS AND VOIDS WITHOUT TROUBLE. PATIENT TRANSFERS BACK TO BED AND ASKS FOR THE MENU TO CALL DOWN HER DINNER. MEDS PASSED. O2 SAT CURRENTLY 91% ON 3L NC, PATIENT DOES DESATURATE TO 86-87% WITH ACTIVITY. MIDLINE ASSESSED, BRISK BLOOD RETURN AND EASE OF FLUSH. ARM CIRCUMFERENCE IS 31CM, AT 10 CM ABOVE THE AC AREA. PATIENT DENIES ANY FURTHER NEEDS AT THIS TIME. PATIENT IS LYING SUPINE WITH THREE RAILS UP AND EYES CLOSED. BEDSIDE TABLE, CALL LIGHT, AND PHONE WITHIN REACH.
[2020-04-03] MEDS ORDERED: PSEUDOEPHEDRINE60 MG PO (14:53)
[2020-04-03] MEDS ORDERED: COZAAR25 MG PO (14:57)
[2020-04-03] MEDS ORDERED: CERAVE453 GM TOP (15:07)
[2020-04-03] MEDS ORDERED: MULTIVITAMINS1 EAC6 PO (15:09)
[2020-04-03] MEDS ORDERED: COMBIVENT RESPIM4 GM PO (15:13)
--- NOTE | 2020-04-03 15:17 | NUR ---
DUE TO COVID STATUS, SPOKE WITH PATIENT BY ROOM PHONE. PATIENT LIVES AT HOME WITH MOM. THERE ARE OTHER FAMILY MEMBERS ALSO. SHE DOES NOT WORK. SHE DRIVES. SHE DENIES USING ANY AMBULATION DME OR RESPIRATORY DME. PATIENT PLANS TO RETURN HOME, FEELS SAFE TO RETURN HOME AT DISCHARGE. PATIENT FEELS SHE CAN AFFORD MEDS AND UTILITIES BUT FEELS THEY ARE SHORT ON FOOD. SHE IS AGREEABLE TO [employer] FOR FOOD ASSISTANCE. NO OTHER CONCERNS. CM WILL CONTINUE TO FOLLOW.
--- NOTE | 2020-04-03 15:51 | NUR ---
PT USES CALL LIGHT APPROPRIATELY. PT STATES, "I NEED TO USE THE COMMODE." PT TRANSFERS SELF TO BSC TO VOID. WHEN PAIN IS ASSESSED, PATIENT STATES, "ONLY WHEN I TAKE DEEP BREATHS." PATIENT TRANSFERS BACK TO BED WITHOUT ASSISTANCE. PATIENT IS CURRENTLY 91% SATURATION ON 3L NC. PLAN TO GET UP TO CHAIR FOR DINNER. PATIENT EDUCATED ON THE IMPORTANCE OF SITTING UP AND DEEP BREATHING. PATIENT HAS TROUBLE BREATHING DEEPLY AND STATES THAT IT HURTS WHEN SHE TRIES TO BREATH DEEPLY.
--- NOTE | 2020-04-03 17:26 | NUR ---
AT 1600 PT STATED, "MY COUGH IS GREEN NOW." PATIENT WAS UNABLE TO PRODUCE MORE SPUTUM UNTIL NOW. THE SPUTUM DOES HAVE A GREEN TINT TO IT. PATIENT IS USING ACAPELLA AND I.S. APPROPRIATELY AND THIS IS PRODUCING MORE COUGH AND SPUTUM. PATIENT REPORTS FEELING BETTER AFTER THE NEB TREATMENT AND THE USE OF THE I.S. AND ACAPELLA. PATIENT WAS UP TO THE CHAIR FOR ABOUT 20 MINUTES WHILE SHE ATE DINNER AND STATES SHE WILL CONTINUE TO SIT UP IN BED BUT THE CHAIR IS NOT COMFORTABLE. ALSO, THE MONITOR LEADS ARE STARTING TO COME OFF OF PATIENT AND STICK TO GOWN. NEW LEADS APPLIED. PATIENT IS CURRENTLY 94% ON 4L NC AND RESPIRATIONS ARE 18. OXYGEN WAS TITRATED FROM 3L TO 4L PATIENTS WORK OF BREATHING INCREASED SLIGHTLY SEEN IN THE RESPIRATORY RATE. PATIENT DENIES ANY FURTHER NEEDS AT THIS TIME. PATIENT SITTING UP IN BED WATCHING TV, TWO RAILS UP, BEDSIDE TABLE, CALL LIGHT, AND PHONE ALL WITHIN REACH.
--- NOTE | 2020-04-03 18:42 | NUR ---
PATIENTS OXYGEN DEMAND IS CONTINUING TO INCREASE SLOWLY. PATIENTS RESPIRATORY RATE INCREASED INTO THE 20'S AND NEEDED TO BE TITRATED TO 4L NC TO MAINTAIN SATS IN THE LOW 90'S. MD UPDATED AND ORDERS PLACED. MD ALSO RECOMMENDED PRONING FOR THE PT. PATIENT EDUCATED ON THE BENEFITS OF PRONING AND WAS AGREEABLE. PATIENT IS NOW PRONED WITH THE BED TURNED SO SHE CAN STILL SEE THE TV. PATIENT DENIES ANY FURTHER NEEDS AT THIS TIME. OXYGEN SATURATION IS CURRENTLY 98% ON 4L NC. RR IS 18. BED IN LOWEST POSITION, TWO RAILS UP, BEDSIDE TABLE, CALL LIGHT, AND PHONE ALL WITHIN REACH. PATIENT EDUCATED ON THE SPUTUM CULTURE THAT WAS ORDERED AND WILL CALL WHEN COMPLETE.
--- NOTE | 2020-04-03 20:00 | NUR ---
SHIFT REPORT RECEIVED FROM EKATERINA RAINEY. ASSESSMENT COMPLETED AT THIS TIME, LIMITED DUE TO PAPR PPE. PT IS ALERT/ORIENTED, REPORTS MILD 4/10 PLEURITIC CHEST PAIN WITH INSPIRATION, PRN TYLENOL GIVEN. DENIES SOB, 4L O2 VIA NC IN PLACE. HR SINUS PER MONITOR. DENIES ABDOMINAL PAIN AND NAUSEA. SKIN GROSSLY INTACT, CMS INTACT. MIDLINE TO MORENO IS DIFFICULT TO FLUSH, NO BLOOD RETURN NOTED, WILL FOLLOW UP. CB, 8 UNITS SLIDING SCALE AND 45 UNITS LANTUS GIVEN. BSC EMPTIED OF URINE. FRESH ICE WATER AND TEA PROVIDED PER REQUEST.
--- NOTE | 2020-04-03 21:00 | NUR ---
CONSULTED WITH PICC RN, LEYDI, REGARDING PT'S MIDLINE. FLUSHED WITH HEPARIN, STILL NO BLOOD RETURN. DRESSING REMOVED AND KINK FOUND NEAR HUB. ABOUT 2CM EXPOSED NOW, BUT BLOOD RETURN IS NOW PRESENT AND LUMEN FLUSHES WITHOUT RESISTANCE. NEW BIOPATCH AND DRESSING PLACED. REMDESIVIR INFUSION STARTED. PT DENIES COMPLAINTS OR REQUESTS AT THIS TIME.
--- NOTE | 2020-04-03 22:05 | NUR ---
PT CALLED TO REQUEST WARM BLANKETS AND MORE BATHROOM WIPES, PROVIDED. BSC EMPTIED OF 200ML YELLOW URINE. NO FURTHER REQUESTS OR COMPLAINTS AT THIS TIME.
--- NOTE | 2020-04-04 00:24 | NUR ---
ASSESSMENT COMPLETED. PRN TYLENOL GIVEN FOR 4/10 GENERALIZED BODY ACHES, REMAINS AFEBRILE. DENIES SOB AND CHEST PAIN. MIDLINE CONTINUES TO HAVE BLOOD RETURN AND FLUSHES WITHOUT RESISTANCE, DRESSING C/D/I, SALINE LOCKED. PT REMAINS INDEPENDENT IN ROOM. FRESH ICE WATER PROVIDED. PT CONTINUES TO SELF PRONE AND REPOSITION FROM SIDE TO SIDE. NO FURTHER REQUESTS OR COMPLAINTS AT THIS TIME. CALL LIGHT AND BELONGINGS WITHIN REACH.
--- NOTE | 2020-04-04 02:20 | NUR ---
PT'S SPO2 HAD DECREASED TO 83-85%, IN TO CHECK ON PT AND OXYGEN HAD INADVERTETLY BEEN REMOVED. PLACED NASAL CANNULA BACK ON PT AND SPO2 QUICKLY RETURNED TO >90%, CURRENTLY 95%.
--- NOTE | 2020-04-04 05:30 | NUR ---
ASSESSMENT COMPLETED. REMAINS ON 4L O2 VIA NC, DENIES SOB AND CHEST PAIN. HR SINUS PER MONITOR. DENIES NAUSEA. MIDLINE DRESSING C/D/I, BLOOD RETURN PRESENT, LABS DRAWN, FLUSHED WITHOUT RESISTANCE AND SALINE LOCKED. PT DENIES REQUESTS AND COMPLAINTS AT THIS TIME. CALL LIGHT AND BELONGINGS WITHIN REACH.
--- NOTE | 2020-04-04 09:35 | NUR ---
PT ASSESSED, RESPIRATIONS EVEN & UNLABORED ON 4L NC. PRN TYLENOL GIVEN FOR 5/10 CHEST PAIN. FRESH ICE WATER GIVEN. MIDLINE FLUSHED W/ EASY BLOOD RETURN, SITE WNL. PT ALERT, SITTING UP IN BED WATCHING TV, NO NEEDS AT THIS TIME. CALL LIGHT IN REACH.
--- NOTE | 2020-04-04 12:35 | NUR ---
DUE TO PRECAUTIONS, UNABLE TO VISIT PT. WILL FOLLOW NEEDED
--- NOTE | 2020-04-04 14:01 | NUR ---
pt awake and alert x4, sitting up on the edge of the bed. pt c/o pleuritic pain with cough, 500 mg po tylenol given. pt independent up to the BSC. vitals are wnl. midline is intact in left upper arm, flushes easily.
--- NOTE | 2020-04-04 17:20 | NUR ---
IN FOR LTD ASSESSMENT DUE TO PAPR, PATIENT A&O x4. VITALS ARE WNL, BGL 256. RESPIRATIONS EVEN & UNLABORED WHILE ON 4L NC, SP02% HIGH 90s. PT STATES "CHEST FEELS HEAVY" WITH 4/10 PAIN. PT SITTING UP ON EDGE OF BED WATCHING TV, PLEASANT AND COOPERATIVE. FRESH ICE WATER GIVEN, NO FURTHER NEEDS AT THIS TIME. CALL LIGHT IN REACH.
--- NOTE | 2020-04-04 18:45 | NUR ---
VITALS WNL, SWABCAP PLACED ON MIDLINE. PT REQUESTED HOT TEA, NO FURTHER NEEDS.
--- NOTE | 2020-04-04 19:45 | NUR ---
SHIFT REPORT RECEIVED FROM EKATERINA MONCADA. R.T. IN ROOM AT THIS TIME TO GIVE SCHEDULE BREATHING TREATMENTS.
--- NOTE | 2020-04-04 21:06 | NUR ---
ASSESSMENT COMPLETED, LIMITED DUE TO PAPR PPE. PT IS ALERT/ORIENTED, REPORTS 7/10 BACK AND PLEURITIC PAIN WITH COUGH, PRN TYLENOL GIVEN. HR SINUS, RATE IN 90'S. RESPIRATORY RATE IS EVEN AND UNLABORED, PT REPORTS SOB WITH EXERTION, STATES HER CHEST IS FEELING BETTER SINCE THIS EVENING'S BREATHING TREATMENT. REPORTS MILD NAUSEA, PRN ZOFRAIN GIVEN. SKIN AND CMS INTACT. MIDLINE DRESSING INTACT, NO BLOOD RETURN PRESENT AT THIS TIME, FLUSHES EASILY AND WITHOUT PAIN, THOUGH PT STATES SITE HAS BEEN TENDER SINCE INSERTION. CB, 12 UNITS SLIDING SCALE AND 55 UNITS LANTUS GIVEN. BSC EMPTIED OF 1075ML YELLOW URINE. NEW BATHROOM WIPES PROVIDED. PT REQUESTS CLARITIN FOR ALLERGIES, DR. PARRA CALLED AND ORDER RECEIVED. PT PROVIDED WITH FRESH ICE WATER, NO FURTHER REQUESTS AT THIS TIME. CALL LIGHT AND BELONGINGS WITHIN REACH.
--- NOTE | 2020-04-04 22:33 | NUR ---
PT CALLED TO HAVE ROOM TEMPERATURE ADJUSTED. REMDESIVIR INFUSION COMPLETED, MIDLINE SALINE LOCKED. BSC EMPTIED OF 250ML YELLOW URINE. NO FURTHER REQUESTS OR COMPLAINTS AT THIS TIME.
--- NOTE | 2020-04-05 00:23 | NUR ---
PT CALLED TO REPORT CHEST PAIN THAT THE PT DESCRIBED NEW AND UNASSOCIATED WITH COUGH/INSPIRATION. RATES 7/10 CONSTANT PRESSURE. VITAL SIGNS STABLE, THOUGH PT APPEARS ANXIOUS AND STATES SHE HASN'T BEEN ABLE TO SLEEP BECAUSE OF "TOO MUCH ON HER MIND." DR. PARRA CALLED, ORDERS RECEIVED FOR AN EKG AND PRN VISTARIL FOR ANXIETY. EKG SHOWED SINUS BRADYCARDIA. PRN TYLENOL AND VISTARIL GIVEN. OXYGEN REMAINS AT 4L, SPO2 IN MID 90'S. MIDLINE DRESSING REMAINS C/D/I AND SALINE LOCKED. PT STATES SHE IS GOING TO TRY TO SLEEP, DENIES FURTHER REQUESTS AT THIS TIME, WILL CONTINUE TO MONITOR.
--- NOTE | 2020-04-05 02:18 | NUR ---
PT APPEARS TO BE ASLEEP AT THIS TIME, NO APPARENT DISTRESS. RESPIRATIONS EVEN AND UNLABORED. RR:20, HR:49, SPO2:98% ON 4L.
--- NOTE | 2020-04-05 04:45 | NUR ---
ASSESSMENT COMPLETED. PRN TYLENOL GIVEN FOR 4/10 GENERALIZED PAIN. OXYGEN REMAINS AT 4L. VITAL SIGNS STABLE. BSC EMPTIED OF YELLOW URINE. MIDLINE DRESSING C/D/I, REMAINS SALINE LOCKED. PT DENIES REQUESTS AND COMPLAINTS AT THIS TIME.
--- NOTE | 2020-04-05 07:50 | NUR ---
PT WAKES EASILY, AND IS ORIENTED X4. PT DENIES NAUSEA AND SOB, PT REPORTS 3/10 GENERALIZED PAIN/DISCOMFORT. PT DENIES CHEST PAIN. PT ABLE TO SIT UP AT THE BEDSIDE AND EAT BREAKFAST. ALL VITALS ARE WNL. PT REMAINS ON 4L O2 VIA NC.
--- NOTE | 2020-04-05 08:20 | NUR ---
PT DEFERS ADL'S AT THIS TIME. SHE STATES SHE WOULD LIKE TO SLEEP MORE. CALL LIGHT IS WITHIN REACH.
--- NOTE | 2020-04-05 11:50 | NUR ---
PT HAS BEEN UP TO THE BSC, ABLE TO VOID AND HAVE LARGE BM. PT STATES SHE IS READY TO GET UP TO THE BATHROOM TO D ADL'S. PT IS ALERT AND ORIENTED X4, STEADY ON HER FEET, AND AMBULATES INDEPENDENTLY ONCE MONITOR CORDS ARE MANAGED.
--- NOTE | 2020-04-05 12:12 | NUR ---
PT OFF FAMILY RESOURCE MANAGEMENT PROFESSOR AT THIS TIME DUE TO ADL'S. PT ON ROOM AIR FOR ADL, BETTY ACTIVITY WELL, NO NOTABLE DESATURATION. PT UP AMBULATES TO THE BATHROOM INDEPENDENTLY, DOES OWN SELF CARES, ALL LINENS CHANGED ON THE BED. PT IN CLEAN GOWN. LUNCH SERVED. PT DENIES NAUSEA, SOB, AND PAIN AT THIS TIME.
--- NOTE | 2020-04-05 15:33 | NUR ---
PT IS ON ROOM AIR O2 SATS ARE AT 94%. PT IS INDEPENDENT WITH MOVEMENT IN THE ROOM.
--- NOTE | 2020-04-05 16:34 | EKG ---
[facility] [address] [place] [address] Signed Sinus bradycardia Nonspecific T wave abnormality Abnormal ECG When compared with ECG of 24-FEB-2020 17:48, Vent. rate has decreased BY 34 BPM Confirmed by ARNULFO PARRA DO ([id number]) on 04/05/2020 4:33:55 PM Electronically Signed By: ARNULFO PARRA DO 04/05/20 1634 PATIENT NAME: ANA MARIA TURCIOS Electrocardiogram DATE OF : 72 PHYSICIAN: ARNULFO PARRA DO REPORT #: [id number] REPORT IS CONFIDENTIAL AND NOT TO BE RELEASED WITHOUT AUTHORIZATION
--- NOTE | 2020-04-05 17:52 | NUR ---
PT ARRIVED TO MED/SURG AT 1745. THIS RN TO BE PRIMARY AT THIS TIME. PT STATES THAT SHE HAS NO PAIN OR SHORTNESS OF BREATH AT THIS TIME.
--- NOTE | 2020-04-05 21:20 | NUR ---
On room air, on covid resp/earosol/contact precautions. COOp with assessment, flashed facial features noted "I had this when I was in college. telecpox in place. Up to br w minimum of assist. RAC midline site, unable to draw blood, flushes well. tolerating fluids and diet well, no c/o sob or pain.
--- NOTE | 2020-04-05 23:25 | NUR ---
C/O FEELING ANXIOUS, MEDICATED WITH VISTARIL ON REQUESTS, INDEPENDENT IN ROOM, NO C/O PAIN, FACIAL FLUSHING DECREAED
--- NOTE | 2020-04-06 00:25 | NUR ---
CONT ON ISOLATION PRECAUTIONS, ON ROOM AIR, RESTING, TURNS SELF IN BED, CALL LIGHT AND FLUIDS AT BEDSIDE
--- NOTE | 2020-04-06 02:17 | NUR ---
RESTING, ON ROOM AIR, NO RESP DISTRESS, TURNS SELF IN BED, TOLERATING LIQUIDS WELL. CALL LIGTH AT BEDSIDE
--- NOTE | 2020-04-06 05:22 | NUR ---
has slept this shift, continues on aerosol/contact isolation. on room air, no cough noted, no c/o sob. independent inroom. sl patent. flushed face present at beginign of shift, decreased redness present at this time. tolerating ADA diet, CBG 281 received 9 units humolog ss coverage and 55 units Lantus, no c/o hypoglycemia. Received Vistaril 1 tab per c/o anxiety, effective. Coop with assessment and precautions.
--- NOTE | 2020-04-06 06:15 | NUR ---
resting, no distress, eyes closed.no resp distress, continues on aerosol/ contact isolation. independent in room
--- NOTE | 2020-04-06 08:18 | NUR ---
RECIEVED REPORT FROM ANTON TOBAR. PT RESTING IN BED AT THIS TIME.
--- NOTE | 2020-04-06 10:44 | NUR ---
PATIENT WOULD LIKE TO TAKE A SHOWER AFTER LUNCH TODAY. SO WHILE THE NURSE WAS IN THERE I HANDED HER THE CLEAN LINENS AND THE TOWELS AND WASH CLOTHS AND CLEAN GOWN. ALSO THE BODY WASH.
--- NOTE | 2020-04-06 10:52 | NUR ---
THAN I GOT HER LUNCH ODERED AND HER DINNER AND BREAKFAST FOR TOMORROW.
--- NOTE | 2020-04-06 19:26 | NUR ---
%report received from Tiffanie TOBAR p sherif on aerosol/contact precautions isolation. resting, eys closed, no s/sx disress geo cpox a
--- NOTE | 2020-04-06 21:51 | NUR ---
Up walking in room, to br, voided QS, tolerating liquids and diet well, cbg 254, received ss 9 units plus Lantus 55units. On ra, lungs dim at bases, no sob, no sob with exertion. SL patent. no c/o adverse reaction to abx except for facial flushing, "Yes I did had hot flushes inthe past". no other sx. facial flush present not as red as yesterday, present prior to infusing abx. Continues on aerosol/contact precautions. uses call light appropriately.
--- NOTE | 2020-04-07 00:30 | NUR ---
awake, no requests, no c/o pain. fluids and call light at bedside
--- NOTE | 2020-04-07 02:20 | NUR ---
resting, eyes closed, no resp distress. tele cpox at 92% p57. on room air. call light and fluids at bedside
--- NOTE | 2020-04-07 04:40 | NUR ---
RESTING, EYS CLOSED, NO RESP DISTRESS. TELECPOX 88-90% P51. LAYING ON HER STOMACH. CALL LIGHT AT BEDSIDE, CONTINUES ON AEROSAL/CONTACT PRECAUTIONS
--- NOTE | 2020-04-07 05:34 | NUR ---
Continoues on aerosol and contact precautions isolation. On room air, lungs dim at bases, no cough, independent in room. tele cpox at 91% , LAC midline patent, no c/o adverse reaction to abx except for mild facial flushing, present prior to starting abx, voiding qs, no bm thi shift, tolerating fluids and diet well, CBG last night 254 received 9 units ss insulin and 55 Lantus. no c/o hypo/hyperglycemia. was medicated with Tylenol per generalized discomfort, Vistaril per anxiety, and zofran per c/o upset stomach effective. no further c/o.
--- NOTE | 2020-04-07 06:30 | NUR ---
Coop with lab draws. no c/o pain, no requests
--- NOTE | 2020-04-07 10:54 | NUR ---
PATIENT INDEPENDENT IN ROOM. SHOWERING AND AMBULATING ALONE. CALL LIGHT WITHIN REACH. NO FURTHER NEEDS
--- NOTE | 2020-04-07 10:56 | NUR ---
SPOKE WITH JEFERSON GABRIEL RN [facility] WHO IS WORKING WITH THIS PATIENT AT HOME FOR ADAN. SHE STATES SHE WILL F/U WITH PATIENT AFTER DISCHARGE. DISCUSSED THAT PATIENT HAD INDICATED THEY MIGHT NOT HAVE ENOUGH FOOD AT HOME. SHE STATES THIS PATIENT HAS FOOD STAMPS AND ACCESS TO FOOD ASSISTANCE THROUGH THEIR OUTREACH PROGRAM. SHE STATES PATIENT HAS A MENTAL HEALTH ISSUE AND HAS SOME REALITY CHALLENGES. SHE WILL CONTINUE TO FOLLOW UP WITH HER.
[2020-04-07] MEDS ORDERED: DEXAMETHASONE4 MG PO ×2 (11:44→11:47)
--- NOTE | 2020-04-07 13:19 | NUR ---
UNABLE TO VISIT WITH PT DUE TO PRECAUTIONS. WILL FOLLOW ABLE
== END 2020-04-07 13:10 | disposition home or self-care (01) | DRG 177 ==
LOC: ED 17:42 → CCU 21:14 → MS 04-05 17:45
PROVIDERS: ADMIT Internal Medicine
PROC: 05HC33Z Insertion of Infusion Device into Left Basilic Vein, Percutaneous Approach (ICD-10-PCS; principal; 2020-04-03 12:00)
DX: U07.1 COVID-19 (principal); J12.89 Other viral pneumonia; J96.01 Acute respiratory failure with hypoxia; I10 Essential (primary) hypertension; E11.65 Type 2 diabetes mellitus with hyperglycemia; J45.909 Unspecified asthma, uncomplicated; E78.5 Hyperlipidemia, unspecified; Z88.4 Allergy status to anesthetic agent; Z91.041 Radiographic dye allergy status; Z91.040 Latex allergy status; Z88.5 Allergy status to narcotic agent; Z79.4 Long term (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; Z79.51 Long term (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 of inhaled steroids; Z79.899 Other long term (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
CPT/HCPCS: 36569; 71045; 80053; 82803; 83036; 83735; 85025; 87070; 87205; 93005; 93010; 94640; 94667; 94668; 99285-25; C1751; J1650; J1815; J2405; J3475; J7050; J8540; Q0177

== ENCOUNTER 2020-05-21 20:47 | Emergency (ER) | payer OTHER ==
[~2020-05-21] VITALS: Ht 162.6 cm; Wt 101.2 kg
--- OUTSIDE RECORDS SUMMARY | ~2020-05-21 | XMS | Encounter Summary ---
Demographics + + + | Address | [address] | | | [place] [address] | + + + | Home Phone | | + + + | Preferred Language | Unknown | + + + | Marital Status | Single | + + + | Cheondoism Affiliation | CAT | + + + | Race | Unknown | + + + | Ethnic Group | Not or | + + + Author + + + | Author | [facility] | + + + | Organization | [facility] | + + + | Address | Unknown | + + + | Phone | Unavailable | + + + Support + + +---------+ + | Name | Relationship | Address | Phone | + + +---------+ + | Alisia Nina | ECON | Unknown | | + + +---------+ + Care Team Providers + +------+ + | Care Ball Worker Name | Role | Phone | + +------+ + | Gracie Lewis PA-C | PCP | | + +------+ + Reason for Visit + +--------+ + | Reason | Onset | Comments | | | Date | | + +--------+ + | Medical Records | 05/14/ | | | Review | 2019 | | + +--------+ + Encounter Details +--------+ + + + + | Date | Type | Department | Care Team | Description | +--------+ + + + + | 10/07/ | Abstract | [facility] | Clinic, Surgery | Medical Records | | 2019 | | Center at [facility] [address] | | Review | | | | [address] [place] | | | | | | for Health and | | | | | | Healing, [address] | | | | | | [place], [place] | | | | | | [address] | | | | | | [phone] | | | +--------+ + + + [...]
--- OUTSIDE RECORDS SUMMARY | ~2020-05-21 | XMS | Encounter Summary ---
Demographics + + + | Address | [address] | | | [place] [address] | + + + | Home Phone | | + + + | Preferred Language | Unknown | + + + | Marital Status | Single | + + + | Spiritism Affiliation | [id number] | + + + | Race | White | + + + | Ethnic Group | Not or | + + + Author + + + | Author | [facility] | | | and [place] | + + + | Organization | [facility] | | | [...] [place] | | | | | [address] | | + + + + + | Pratibha Hester | ECON | Unknown | + | + + + + + | Demian Powell | ECON | Unknown | + | + + + + + Care Team Providers + +------+ + | Care Property And Casualty Insurance Agent Name | Role | Phone | + +------+ + | Quentin Manriquez PA-C | MARCK | | + +------+ + Reason for Visit + +--------+ + | Reason | Onset | Comments | | | Date | | + +--------+ + | Medication Refill | 05/25/ | | | | 2014 | | + +--------+ + Encounter Details +--------+--------+ + + + | Date | Type | Department | Care Team | Description | +--------+--------+ + + + | 05/25/ | Refill | [facility] | Sascha Mir, | Medication Refill | | 2014 | | NEUROSURGERY [address] | DO [address] | | | | | [address] | [address] [place] | | | | | [place] | [address] | | | | | [address] | | | | | | [phone] | | | +--------+--------+ + + + [...] + + documented as of this encounter Miscellaneous Notes Telephone Encounter - Elina Fairbanks Cert MA - 05/26/2015 11:22 AM PDTI tried calling Demian to let her know that her Rx has been called into her pharmacy but her phone number on file is disconnected. I will send her a Ultora message. Rx called into [facility]. Dolores d estrcharles. ELINA FAIRBANKS elephone Encounte r - Amol Triplett PA - 05/26/2015 10:23 AM PDTIt has been more than 3 months. Since she is following up with Parisa Mir I will give a moderate number now, but these are addictive a nd will probably need to be coming from PCP in the very near future. elephone Encounter - Elina Fairbanks Cert MA - 05/26/2015 9:15 AM PDTDerek, Patient is requesting a refill of her muscle relaxer. She no showed her visit with Dr. Du pate on 05/23, says that her ride never showed up. I will be calling her to try to re-schedu le, however, she is very hard to get in touch with. She did leave a note below along with t he Rx request. She is S/P L5-S1 fusion on 12/12/14. Please advise. ELINA FAIRBANKS documented in this encounter Plan of Treatment Not on filedocumented as of this encounter Visit Diagnoses Not on filedocumented in this encounter"
--- OUTSIDE RECORDS SUMMARY | ~2020-05-21 | XMS | Encounter Summary ---
Demographics + + + | Address | [address] | | | [place] [address] | + + + | Home Phone | | + + + | Preferred Language | Unknown | + + + | Marital Status | Single | + + + | Samaritan Affiliation | CAT | + + + | Race | Unknown | + + + | Ethnic Group | Not or | + + + Author + + + | Organization | Unknown | + + + | Address | Unknown | + + + | Phone | Unavailable | + + + Support + + +---------+ + | Name | Relationship | Address | Phone | + + +---------+ + | Alisia Nina | ECON | Unknown | | + + +---------+ + Care Team Providers + +------+ + | Care Instructional Support Assistant Name | Role | Phone | + +------+ + | Gracie Lewis PA-C | PCP | | + +------+ + Encounter Details +--------+--------+ + + + | Date | Type | Department | Care Team | Description | +--------+--------+ + + + | 20/ | Travel | | | | | 2019 | | | | | +--------+--------+ + + + Social History + +-------+ [...]
--- OUTSIDE RECORDS SUMMARY | ~2020-05-21 | XMS | Encounter Summary ---
Demographics + + + | Address | [address] | | | [place] [address] | + + + | Home Phone | | + + + | Preferred Language | Unknown | + + + | Marital Status | Single | + + + | Congregation Affiliation | CAT | + + + | Race | Unknown | + + + | Ethnic Group | Not or | + + + Author + + + | Author | [facility] | + + + | Organization | [facility] | + + + | Address | Unknown | + + + | Phone | Unavailable | + + + Support + + +---------+ + | Name | Relationship | Address | Phone | + + +---------+ + | Alisia Nina | ECON | Unknown | | + + +---------+ + Care Team Providers + +------+ + | Care Loading And Unloading Supervisor Name | Role | Phone | + +------+ + | Quentin Manriquez | PCP | | + +------+ + Reason for Visit +---------+ + | Reason | Comments | +---------+ + | Vertigo | new pt here for vertigo eval | +---------+ + Consultation (Routine) +--------+--------+ + + + + | Status | Reason | Specialty | Diagnoses / | Referred By | Referred To | | | | | Procedures | Contact | Contact | +--------+--------+ + + + + | Closed | | Otolaryngolog | Diagnoses | Non-[facility] | Ent Otology | | | | y | Peripheral | Epic Dept | [facility] [address] | | | | | vertigo, | | [address] | | | | | unspecified | | Loop | | | | | Dysfunction | | Physician's | | | | | of | | Pavilion, 2nd | | | | | eustachian | | floor | | | | | tube | | [place], [place] | | | | | Nonsuppurati | | [address] | | | | | ve otitis | | Phone: | | | | | media, not | | [phone] | | | | | specified as | | Fax: | | | | | acute or | | [phone] | | | | | chronic | | | | | | | Conductive | | | | | | | hearing | | | | | | | loss, | | | | | | | unilateral | | | | | | | Dizziness | | | | | | | and | | | | | | | giddiness | | | | | | | "Vertigo and | | | | | | | associated | | | | | | | nausea. Also | | | | | | | associated | | | | | | | fullness | | | | | | | sensation... | | | | | | | tinnitus, | | | | | | | and | | | | | | | decreased | | | | | | | hearing" - | | | | | | | Page 2 of | | | | | | | the Referral | | | | | | | [...] Description | +--------+---------+ + + + | 04/01/ | Office | Otolaryngology | Windy Mclean | ETD (eustachian tube | | 2013 | Visit | Otology Services at | MD Loli [address] | dysfunction), | | | | [address] [address] | bilateral (Primary | | | | [address] | [facility] [place] | Dx); OME (otitis | | | | Physician's | [phone] | media with | | | | Pavilion, 2nd floor | [phone] | effusion), right; | | | | [facility] [place] | | Conductive hearing | | | | [phone] | | loss in right ear; | | | | [phone] | | Dizziness; Nausea | +--------+---------+ + + + Social History [...] Pressure | 97/58 | 04/01/2014 9:43 AM | | | | | PDT | | + + + + + | Pulse | 82 | 04/01/2014 9:43 AM | | | | | PDT | | + + + + + | Temperature | - | - | | + + + + + | Respiratory Rate | - | - | | + + + + + | Oxygen Saturation | - | - | | + + + + + | Inhaled Oxygen | - | - | | | Concentration | | | | + + + + + | Weight | 113.4 kg (250 lb) | 04/01/2014 9:43 AM | | | | | PDT | | + + + + + | Height | 167.6 cm (5' 6") | 04/01/2014 9:43 AM | | | | | PDT | | + + + + + | Body Mass Index | 40.35 | 04/01/2014 9:43 AM | | | | | PDT | | + + + + + documented in this encounter Progress Notes Windy Mclean MD - 04/01/2014 10:27 AM PDT Date: 04/01/2014 PCP: Quentin Montoyarera is a 44 y.o. female who complains of "vertigo since childhood". By vert igo she means episodes of lightheadedness, disequilibrium or imbalance lasting 20 minutes or more. These occur practically every morning after she gets up and are associated with nause a, headache and sensitivity to light. She feels that her "vertigo" is getting worse over hayde e. She denies spinning sensation. She denies head injury, loud noise exposure or barotrauma. She checks off every ear symptoms on our intake forms, including otalgia, otorrhea, hearing loss, tinnitus, ear fullness, autophony to voice, autophony to breathing, dizziness with lo ud noise, dizziness with ear popping. In addition, she also complains of "vision problems" a nd "sinus symptoms". She has history of diabetes and migraine. She denies history of ear inf ection or ear surgery. Past Medical History Diagnosis Date Diabetes mellitus No past surgical history on file. History Substance Use Topics Smoking status: Former Smoker Smokeless tobacco: Not on file Alcohol Use: No Allergies Allergen Reactions Dilaudid [Hydromorphone (Bulk)] Pruritis Morphine Pruritis Current Outpatient Prescriptions Medication Sig lisinopril 10 mg oral tablet Take 10 mg by mouth once daily. loratadine 10 mg oral capsule Take by mouth. METFORMIN HCL (METFORMIN ORAL) Take by mouth. Mometasone 220 mcg (30 doses) inhalation aerosol powdr breath activated Inhale 1 puff o nce daily. montelukast 10 mg oral tablet Take 10 mg by mouth once daily in the evening. naphazoline-pheniramine 0.025-0.3 % ophthalmic drops 1 drop four times daily as needed. omeprazole 20 mg oral capsule,delayed release(DR/EC) Take 20 mg by mouth once daily. ondansetron ODT 4 mg oral tablet,disintegrating Take 4 mg by mouth every twelve hours a s needed. oxycodone, immediate release, 5 mg Oral Tablet Take 1 Tab by mouth every six hours as n eeded. pantoprazole 40 mg oral tablet,delayed release (DR/EC) Take 40 mg by mouth once daily. terbinafine 250 mg oral tablet Take 250 mg by mouth once daily. No current facility-administered medications for this visit. ROS: A comprehensive review of systems is performed, and the salient points are summarized in the above HPI. VS: BP 97/58 | Pulse 82 | Ht 1.676 m (5' 6") | Wt 113.399 kg (250 lb) | BMI 40.37 kg/(m^2) GENERAL: Well developed, well nourished, in no apparent distress, with flluent speech. HEAD/FACE: Atraumatic, nonsyndromic. No lesion, mass or tenderness. No facial weakness. EYES: Equal, round, reactive to light. Extraocular motions intact. No nystagmus. EARS: An otomicroscope is used for exam and cleaning of both ears. AD: Ear canal patent. TM intact with normal landmarks and shanique effusion. There is no infla mmation or cholesteatoma. : Ear canal patent. TM intact with normal landmarks. No effusion, inflammation or cholest eatoma. NOSE: Normal external appearance, mucosa, septum and turbinates. THROAT: No mucosal or mass lesion. NECK: Trachea midline. No adenopathy or thyromegaly. RESPIRATORY: Breathing comfortably. CARDIOVASCULAR: Regular rate and rhythm. NEUROLOGICAL: Alert and oriented times 3. Normal mood and affect. Cranial nerves III-XII no rmal. No spontaneous nystagmus. Normal head thrust. Normal plblci-ip-bgly and rapid alternat ing motion. Negative Romberg. Normal gait and tandem walk. Negative Hallpike and supine head roll on both sides. Audiogram 04/01/2014 ASSESSMENT & PLAN: Demian Nina has chronic dizziness of unclear etiology. She does have bilateral eust achian tube dysfunction and right ear conductive hearing loss from otitis media with effusio n. I propose to treat her right ear eustachian tube dysfunction, otitis media with effusion and conductive hearing loss with a tympanostomy tube. A dry ear will help her hear better, m ight improver her dizziness, and will facilitate further imaging studies of the ear and vest ibular testing. The patient indicates understanding of these issues and agrees to the plan. PROCEDURE: right ear tympanostomy tube Prior to the beginning of the procedure, I pause with the patient to verify her consent, pr ocedure to be performed and the correct side/site. The right tympanic membrane was visualized with the otomicroscope. EMLA cream was NOT appli ed because she has difficulty with breathing after exposure to some local anesthetics.. Phen ol was applied sparingly to the anteroinferior quadrant. A myringotomy was performed in the anesthesized area. A Ramirez beveled tube was placed. Shanique was evacuated from the middle ear . The patient tolerates the procedure well and was discharged to home with instructions for post op care and follow up. She will follow up with me in 3 month with new audiogram. Windy Rodriguez MD PhD [employer] Otology, Neurotology & Skull Base Surgery documented in this encounter Miscellaneous Notes Scan - Other, Faculty - 04/19/2014 6:56 PM PDTElectronically signed by Faculty Other at 6:56 PM PDTScan - Other, Faculty - 04/19/2014 6:55 PM PDT documented in this encounter Plan of Treatment Not on filedocumented as of this encounter Procedures + +--------+ + + + | Procedure Name | Priori | Date/Time | Associated Diagnosis | Comments | | | ty | | | | + +--------+ + + + | TN CREATE EARDRUM | Routin | 04/01/2014 | ETD (eustachian | | | OPENING,LOCAL ANESTH | e | 10:55 AM | tube dysfunction), | | | | | PDT | bilateral OME | | | | | | (otitis media with | | | | | | effusion), right | | | | | | Conductive hearing | | | | | | loss in right ear | | + +--------+ + + + documented in this encounter Visit Diagnoses + + | Diagnosis | + + | ETD (Eustachian tube dysfunction), bilateral - Primary | + + | OME (otitis media with effusion), right | + + | Conductive hearing loss in right ear Conductive hearing loss, unilateral | + + | Dizziness Dizziness and giddiness | + + | Nausea Nausea alone | + + documented in this encounter
--- OUTSIDE RECORDS SUMMARY | ~2020-05-21 | XMS | Encounter Summary ---
Demographics + + + | Address | [address] | | | [place] [address] | + + + | Home Phone | | + + + | Preferred Language | Unknown | + + + | Marital Status | Single | + + + | Mandaeism Affiliation | 1041 | + + + | Race | White | + + + | Ethnic Group | Not or | + + + Author + + + | Author | [facility] | | | and [place] | + + + | Organization | [facility] | | | and [...] [place] | | | | | [address] | | + + + + + | Pratibha Hester | ECON | Unknown | + | + + + + + | Demian Powell | ECON | Unknown | + | + + + + + Care Team Providers + +------+ + | Care Plate Shear Operator Name | Role | Phone | + +------+ + | Gracie Lewis PA-C | PCP | | + +------+ + Reason for Visit Evaluate & Treat (Routine) +--------+--------+ + + + + | Status | Reason | Specialty | Diagnoses / | Referred By | Referred To | | | | | Procedures | Contact | Contact | +--------+--------+ + + + + | Closed | | Internal | Diagnoses | Joshua, | Eze, | | | | Medicine - | Obstructive | Gracie Armendariz, | Jasiel Bowling | | | | Sleep | sleep apnea | [place] [address] | MD [address] | | | | Medicine / | (adult) | [address] | T[address]aine [address] | | | | Sleep | (pediatric) | [place], | [facility] | | | | Medicine | | [place] [address] | [place], [place] | | | | | consult,pw@0 | Phone: | [phone] Phone: | | | | | [address], no ss, | [phone] | [phone] | | | | | no cpap/AO | Fax: | Fax: | | | | | Procedures | [phone] | [phone] | | | | | NEW PATIENT | | | +--------+--------+ + + + + Encounter Details +--------+ + + + + | Date | Type | Department | Care Team | Description | +--------+ + + + + | 12/11/ | Virtual | [facility] | Jasiel Loo | NO SHOW (Primary Dx) | | 2020 | Office | SLEEP DISORDER [address] | MD [address] [place] | | | | Visit | [address] | [address] [facility] | | | | | [place] [address] | [place] [address] | | | | | [phone] | [phone] | | | | | | | | +--------+ + + + + Social History + + + +--------+ + | Tobacco Use | Types | Packs/Day | Years | Date | | | | | Used | | + + + +--------+ + | Former Smoker | Cigarettes | 0.5 | 2 | Quit: 04/18/2013 | + + + +--------+ + + +---+---+---+ | Smokeless Tobacco: | | | | | Never Used | | | | + +---+---+---+ + + +---------+ + | Alcohol Use | Drinks/Week | oz/Week | Comments | + + +---------+ + | Not Currently | | | Rare | + + +---------+ + + + + | Sex Assigned at | Date Recorded | | | | + + + | Not on file | | + + + documented as of this encounter Progress Notes Jasiel Loo Jr., MD - 12/12/2019 9:00 AM PDTThis patient was a no-show she did not ca ll to cancel a scheduled 1 hour telehealth sleep medicine consultation. documented in this encounter Plan of Treatment Not on filedocumented as of this encounter Visit Diagnoses + + | Diagnosis | + + | No Show - Primary Code used for vists where the patient is not seen | + + documented in this encounter"
--- OUTSIDE RECORDS SUMMARY | ~2020-05-21 | XMS | Encounter Summary ---
Demographics + + + | Address | [address] | | | [place] [address] | + + + | Home Phone | | + + + | Preferred Language | Unknown | + + + | Marital Status | Single | + + + | Bahai Affiliation | 1041 | + + + | Race | White | + + + | Ethnic Group | Not or | + + + Author + + + | Author | [facility] | | | and [place] | + + + | Organization | [facility] | | | and [...] [place] | | | | | [address] | | + + + + + | Pratibha Hester | ECON | Unknown | + | + + + + + | Demian Powell | ECON | Unknown | + | + + + + + Care Team Providers + +------+ + | Care Refractory Worker Name | Role | Phone | + +------+ + | Quentin Manriquez PA-C | MARCK | | + +------+ + Reason for Visit + +--------+ + | Reason | Onset | Comments | | | Date | | + +--------+ + | Medication Refill | 06/12/ | | | | 2014 | | + +--------+ + Encounter Details +--------+--------+ + + + | Date | Type | Department | Care Team | Description | +--------+--------+ + + + | 06/12/ | Refill | [facility] | Amol Triplett, | Medication Refill | | 2014 | | NEUROSURGERY [address] | PA-C [address] | | | | | [address] | [address] | | | | | [place] | [place] [address] | | | | | [address] | [phone] | | | | | [phone] | | | +--------+--------+ + + + [...] encounter Miscellaneous Notes Telephone Encounter - Natalie Fairbanks Cert MA - 06/16/2015 9:37 AM PSTI called and spoke wi daniela rodgers today and while trying to get further information about a few other my chart trish es she had sent over the weekend, she became frustrated with me and ended up hanging up the phone. I was unable to relay this information to her. NATALIE FAIRBANKS elephone Sascha Pearson DO - 06/14/2015 8:24 AM PSTX-rays were normal. The soft tissue calcifi cation in front of C5-6 would not cause her symptoms and is mild. She's planning to see Dr. Triplett soon, so he can show her. Thanks. elephone Enco unter - Natalie Fairbanks Cert MA - 06/13/2015 12:17 PM PSTPer Amol (patient already requested this medications earlier in the week and they were sent to him) He is not comfortable refil ling these medications with her being so far out from surgery. Dr. Mir, Please, still review her x-rays and advise. NATALIE FAIRBANKS elephone Encounte r - Natalie Fairbanks Cert MA - 06/13/2015 8:46 AM PSTI called and spoke with Demian. Her mess ages were very confusing. She is requesting a refill of her Zofran and Diazepam. She also wonders what the results are of her recent x-rays she had done here of her neck and back? S he mentions something about "tissue growth" on the radiology report and was questioning this . Procedure: L5-S1 Fusion on 12/12/14. Next visit: None Please advise. NATALIE FAIRBANKS documented in this encounter Plan of Treatment Not on filedocumented as of this encounter Visit Diagnoses + + | Diagnosis | + + | Nausea Nausea alone | + + documented in this encounter
--- OUTSIDE RECORDS SUMMARY | ~2020-05-21 | XMS | Encounter Summary ---
Demographics + + + | Address | [address] | | | [place] [address] | + + + | Home Phone | | + + + | Preferred Language | Unknown | + + + | Marital Status | Single | + + + | Restorationism Affiliation | 1041 | + + + [...] [place] | | | | | [address] | | + + + + + | Pratibha Hester | ECON | Unknown | + | + + + + + | Demian Powell | ECON | Unknown | + | + + + + + Care Team Providers + +------+ + | Care Sales Representative Metals Name | Role | Phone | + +------+ + | Quentin Manriquez PA-C | MARCK | | + +------+ + Reason for Visit +--------+--------+ + | Reason | Onset | Comments | | | Date | | +--------+--------+ + | Other | 12/19/ | | | | 2014 | | +--------+--------+ + Encounter Details +--------+ + + + + | Date | Type | Department | Care Team | Description | +--------+ + + + + | 12/19/ | Telephone | [facility] | Sascha Mir, | Other | | 2014 | | NEUROSURGERY [address] | DO [address] | | | | | [address] | [address] [place], [place] | | | | | [place] | [id number] | | | | | [address] | | | | | | [phone] | | | +--------+ + + + [...] Encounter - Elina Fairbanks Cert MA - 12/19/2014 9:42 AM CARLOS returned a call to Demian, after getting a message from her on the answering service. She states that while in the hospital she was taken care of by a nurse named Jay. She proceeds to tell me that her presence is with her and keeps telling the doctor's at the facility she's at, that her name is Jay, not Demian. She seems upset and tells me she just wants Jay to leave her alone. She doesn't know what she wants but she wants her to go away. I let Demian know that I wou ld see what I could do. After talking to Dr. Mir, he advised I call the facility that she is at and explain the call to them. I spoke with Leticia, the charge nurse at [facility] in [place]. She state s that she is familiar with Demian's behaviors and was just down to see her today and she see med okay. She did state that she would go down and assess her. ELINA FAIRBANKS documented in this encounter Plan of Treatment Not on filedocumented as of this encounter Visit Diagnoses Not on filedocumented in this encounter"
--- OUTSIDE RECORDS SUMMARY | ~2020-05-21 | XMS | Encounter Summary ---
Demographics + + + | Address | [address] | | | [place] [address] | + + + | Home Phone | | + + + | Preferred Language | Unknown | + + + | Marital Status | Single | + + + | Uatsdin Affiliation | 1041 | + + + | Race | White | + + + | Ethnic Group | Not or | + + + Author + + + | Author | [facility] | | | and [place] | + + + | Organization | [facility] | | | [...] [place] | | | | | [address] | | + + + + + | Pratibha Hester | ECON | Unknown | + | + + + + + | Demian Powell | ECON | Unknown | + | + + + + + Care Team Providers + +------+ + | Care Sharepoint Administrator Name | Role | Phone | + +------+ + | Jannette Boyle PA-C | PCP | | + +------+ + Encounter Details +--------+ + + + + | Date | Type | Department | Care Team | Description | +--------+ + + + + | 02/28/ | Orders Only | [facility] | Provider, | | | 2019 | | [facility] GENER[facility] OP | [address] | | | | | [address] | [address] | | | | | [address] [place], [place] | [place] [address] | | | | | [address] | | | | | | [phone] | | | +--------+ + + + [...]
--- OUTSIDE RECORDS SUMMARY | ~2020-05-21 | XMS | Encounter Summary ---
Demographics + + + | Address | [address] | | | [place] [address] | + + + | Home Phone [...] Author + + + | Author | [facility] | | | and [place] | + + + | Organization | [facility] | | | and [...] [place] | | | | | [address] | | + + + + + | Pratibha Hester | ECON | Unknown | + | + + + + + | Demian Powell | ECON | Unknown | + | + + + + + Care Team Providers + +------+ + | Care Electrocardiograph Repairer Name | Role | Phone | + +------+ + | Quentin Manriquez PA-C | MARCK | | + +------+ + Encounter Details +--------+ + + + + | Date | Type | Department | Care Team | Description | +--------+ + + + + | 12/03/ | Orders Only | [facility] | Sascha Mir, | Status post lumbar | | 2015 | | NEUROSURGERY [address] | DO [address] | spinal fusion | | | | [address] | [address] [place], [place] | (Primary Dx) | | | | [place], [place] | [phone] | | | | | [address] | | | | | | [phone] | | | +--------+ + + + [...] on filedocumented as of this encounter Results XR Lumbar [...] RADIOGRAPHS DECEMBER 13 AND SEPTEMBER 26 | [facility] | | FINDINGS: Five non rib-bearing, lumbar [...] | + + + + + | [address] | [address] | [place] | [phone] | | [facility] | | [address] | | | - IMAGING | | | | + + + + + documented in this encounter Visit Diagnoses + + | Diagnosis | + + | Status post lumbar spinal fusion - Primary Arthrodesis status | + + documented in this encounter"
--- OUTSIDE RECORDS SUMMARY | ~2020-05-21 | XMS | Encounter Summary ---
Demographics + + + | Address | [address] | | | [place] [address] | + + + | Home Phone | | + + + | Preferred Language | Unknown | + + + | Marital Status | Single | + + + | Jain Affiliation | CAT | + + + | Race | Unknown | + + + | Ethnic Group | Not or | + + + Author + + + | Author | [facility] | + + + | Organization | [facility] | + + + | Address | Unknown | + + + | Phone | Unavailable | + + + Support + + +---------+ + | Name | Relationship | Address | Phone | + + +---------+ + | Alisia Nina | ECON | Unknown | | + + +---------+ + Care Team Providers + +------+ + | Care Manager Spring Name | Role | Phone | + [...] | | | | [address] | [facility] [place] | | | | | Physician's | [address] | | | | | [place], [facility] floor | [phone] | | | | | [place], [place] | | | | | | [address] | | | | | | [phone] | | | +--------+ + + + [...] this encounter Miscellaneous Notes Telephone Encounter - KohliRay mendenhall - 05/14/2015 9:49 AM PDTFYI - I have been working s barbie November to get auth for vestibular testing with no luck so far. I am waiting to hear back on a current auth request but am guessing I will need to resubmit again since we are now on ICD-10 codes. Once authed I will call pt to schedule but it is taking a long time since pt' s insurance has changed. Telephone Encounter - Alfonso Gerber MA - 05/13/2015 3:11 PM PDTYes, patient should sti ll have testing done and then follow up with Dr. Temple. Please call to schedule.Electronicall y signed by Alfonso Gerber MA at 05/13/2015 3:12 PM PDTTelephone Encounter - Tamera Anderson - 05/13/2015 3:04 PM PDTLavobeatriz called in and wants to know if Dr. Temple wants her to do any more testing? Last chart not from 12/05 stated she should do vestibular testing. Does she sti ll need to do this? Please advise. Thanks! Roseann Veliz documented in this e ncounter Plan of Treatment Not on filedocumented as of this encounter Visit Diagnoses Not on filedocumented in this encounter"
--- OUTSIDE RECORDS SUMMARY | ~2020-05-21 | XMS | Encounter Summary ---
Demographics + + + | Address | [address] | | | [place] [address] | + + + | Home Phone | | + + + | Preferred Language | Unknown | + + + | Marital Status | Single | + + + | Confucianist Affiliation | CAT | + + + | Race | Unknown | + + + | Ethnic Group | Not or | + + + Author + + + | Author | [facility] | + + + | Organization | [facility] | + + + | Address | Unknown | + + + | Phone | Unavailable | + + + Support + + +---------+ + | Name | Relationship | Address | Phone | + + +---------+ + | Alisia Nina | ECON | Unknown | | + + +---------+ + Care Team Providers + +------+ + | Care Spooling Machine Operator Name | Role | Phone | + +------+ + | Soniya Sinha RP | PCP | | + +------+ + Reason for Visit +--------+ + | Reason | Comments | +--------+ + | Rash | | +--------+ + Encounter Details +--------+ + + + + | Date | Type | Department | Care Team | Description | +--------+ + + + + | 05/08/ | Emergency | [facility] Emergency | Omid Moser MD | | | 2008 | | Department [address] | [address] [facility] | | | | | [address] | [place] | | | | | [facility] | [place], [place] | | | | | [place], [place] | [address] | | | | | [address] | [phone] | | | | | [phone] | | | +--------+ + + + [...] + + + | Blood Pressure | 145/89 | 05/08/2009 11:53 AM | | | | | PDT | | + + + + + | Pulse | 95 | 05/08/2009 11:53 AM | | | | | PDT | | + + + + + | Temperature | 36.9 C (98.4 F) | 05/08/2009 11:53 AM | | | | | PDT | | + + + + + | Respiratory Rate | 16 | 05/08/2009 11:53 AM | | | | | PDT | | + + + + + | Oxygen Saturation | 98% | 05/08/2009 11:53 AM | | | | | PDT | | + + + + + | Inhaled Oxygen | - | - | | | Concentration | | | | + + + + + | Weight | 108 kg (238 lb) | 05/08/2009 11:53 AM | | | | | PDT | | + + + + + | Height | - | - | | + + + + + | Body Mass Index | - | - | | + + + + + documented in this encounter Discharge Instructions Instructions Marita Shannon Md - 05/08/2009Shingles (Herpes Zoster) You have been diagnosed as having Shingles. This is caused by the same virus that causes ch icken pox. This often occurs many years or decades after having chicken pox. The virus react ivates and breaks out as an infection in a nerve root. The initial sensations (feeling) may be pain or tingling in that nerve root followed in a couple days by a rash. The rash may occ ur in any area of the body. The rash usually starts out as very small vesicles (blisters) th at dry up after several days. This is not usually a significant problem except for the pain it causes. Chronic (long lasting) pain is more likely in an elderly person and can last elizabeth hs to years. This condition is called post (after) herpetic (the virus) neuralgia (pain in a nerve root). Shingles can be an extremely severe infection in someone with AIDS, weakened immune system, or with forms of leukemia. It can also be severe if you are taking transplant medications o r other medications that weaken the immune system. TREATMENT Your caregiver will often treat you with antiviral drugs, anti-inflammatory drugs (aspirin or ibuprofen), or pain medications. Sometimes injection of local anesthetics (such as novoca ine) into the infected nerve will reduce the pain. HOME CARE INSTRUCTIONS Cool compresses to the area of rash may be helpful. Over the counter medications such as acetaminophen (Tylenol), ibuprofen (Advil or Motri n), or aspirin may reduce pain. Avoid contact with babies and children with eczema, elderly people with transplants, and pe ople with chronic illnesses such as leukemia and AIDS. CALL IF: You develop any pain in the area of the face or eye. This must be followed carefully by your caregiver or veneer slicing machine operator. 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 You do not have pain relief from prescribed medications. Your condition is worsening or has changed from what originally brought you in. [facility] Patient Information 2007 [employer]. documented in this encounter ED Notes Josefina Mueller RN - 05/08/2009 12:59 PM PDTRN DISCHARGE NOTE: The patient verbalizes understanding of written discharge/home care instructions as a evide nced by Follow-up plan of care reviewed w/ patient, Pt voiced understanding of plan of care and Written dx instructions reviewed w/ patient. The patient was discharged Ambulatory via private vehicle with family in no emergent distress. Marita Read Md - 05/08/2009 12:28 PM PDT HPI ROS ED Triage Vitals BP Temp Pulse Resp SpO2 05/08/09 1153 05/08/09 1153 05/08/09 1153 05/08/09 1153 05/08/09 1153 145/89 mmHg 36.9 C 95 16 98 % Physical Exam 12:29 PM, MARITA SHANNON MD, Resident Note Chief Complaint Patient presents with Rash HPI: 39 yo woman who has had burning pain that began in center of back and wraps in a band-like distribution around right side of her chest under her breast and ends at her breast bone. Al so noted a rash on her back in location of pain that she has had for 5 days. Never had a fer h like this before. No fever. Pain only without itching. ROS: As in HPI, otherwise no nausea or vomiting, headaches, neck pain, chest pain or chest pressure, diarrhea, easy bruising, LAD, rashes, fevers or chills. Otherwise, an entire 10 po int review of systems is negative. Past Medical History Diagnosis Date Diabetes Mellitus Meds: Medications: Current outpatient prescriptions: FERROUS SULFATE,DRIED (IRON, DRIED, ORAL), Take by mouth ., Disp: , Rfl: HYDROCODONE BIT/ACETAMINOPHEN (VICODIN ORAL), Take by mouth., Disp: , Rfl: METFORMIN HCL (METFORMIN ORAL), Take by mouth., Disp: , Rfl: METHOCARBAMOL (ROBAXIN ORAL), Take by mouth., Disp: , Rfl: oxycodone, immediate release, 5 mg Oral Tablet, Take 1 Tab by mouth every six hours as need ed., Disp: 30, Rfl: 0 PSEUDOEPHEDRINE HCL (SUDAFED ORAL), Take by mouth., Disp: , Rfl: RANITIDINE HCL (ZANTAC ORAL), Take by mouth., Disp: , Rfl: No Known Allergies Family Hx: non-contrib Social Hx: No tobacco or etoh use Physical Exam Wt 107.956 kg (238 lbs)( < 3 %ile), BP 145/89, Pulse 95, Temperature 36.9 C, RR 16, SpO2 98%. Gen: Well-developed, well-nourished in NAD HEENT: NCAT, PERRL, EOMI, oropharynx clear, mmm Skin: back exam- patient's right side, lateral to spine, vesicular rash that is 5 x 4 cm wi th red base and clear fluid in blisters, small area under right breast also of erythema with early blister formation Chest: clear to auscultation bilaterally CV: regular, S1, S2 Neuro: alert and oriented x 4 Clinical Course & MDM: The patient was triaged to room 5 on the acute side of the ED. The vital signs and nursing notes as well as any relevent pre-hospital notes were reviewed by myself. The attending was present for all aspects of the patient care and medical decision making. Rash and burning pain in T5, T6 dermatome distribution consistent with herpes zoster. Patie nt has had symptoms for at least 5 days therefore outside of treatment window for anti-viral s. PAtient also has DM therefore hesistant to give steroids, especially as they are controve rsial and risk may outweigh benefit for this patient. PAtient given po narcotics and told to call her pcp when she returns home to [place] to discuss any ongoing pain issues if they are present. Assessment and Plan: A: Herpes zoster, right flank P: Discharge home Oxycodone prn pain Last Clark RN - 05/08/2009 11:59 AM PDTCBG in triage: 110. Recent DM Dx. ast Busch RN - 05/08/2009 11:54 AM PDTPt c/o 910 rash on back x 3 weeks that MD who saw pt this AM believes may be shingles. + erthematous, mac/pap rash to R CVA region, ~5 cm in diameter. + chills, + subjective intermittent fever. documented in this e ncounter Miscellaneous Notes Scan - Other, Faculty - 05/08/2009 1:00 PM PDT Scan - Other, Faculty - 05/08/2009 1:00 PM PDT ED Teaching Notes - Omid Moser MD - 05/08/2009 12:49 PM PDT12:49 PM, OMID MOSER MD, Faculty Note I evaluated and examined this patient and discussed the findings and plans with Dr. Francisca coates. See her note also. I performed and confirmed the zuniga portions of the service. I reviewed the medications, allergies, past medical and surgical history, and the nursing notes and di agnostic tests for this visit. I agree with the plans and assessment except as noted. Here for 3wks of back pain and rash for one week. Classic shingles appearance. Too late for antiviral treatment and has diabetes, will not use steroids. Stable for discharge. OMID MOSER MD documented in this enc ounter Plan of Treatment Not on filedocumented as of this encounter Visit Diagnoses + + | Diagnosis | + + | Herpes Zoster Herpes zoster without mention of complication | + + documented in this encounter"
--- OUTSIDE RECORDS SUMMARY | ~2020-05-21 | XMS | Encounter Summary ---
Demographics + + + | Address | [address] | | | [place] [address] | + + + | Home Phone | | + + + | Preferred Language | Unknown | + + + | Marital Status | Single | + + + | Presybeterian Affiliation | CAT | + + + [...] Team Providers + +------+ + | Care Yard Specialist Name | Role | Phone | + +------+ + | Quentin Manriquez | PCP | | + +------+ + Reason for Visit + +--------+ + | Reason | Onset | Comments | | | Date | | + +--------+ + | Pre-op evaluation | 02/12/ | | | | 2019 | | + +--------+ + Encounter Details +--------+ + + + + | Date | Type | Department | Care Team | Description | +--------+ + + + + | 02/12/ | Telephone-S | Preoperative | | Pre-op evaluation | | 2019 | cheduled | [facility] at | | | | | | [facility] | | | | | | [address] | | | | | | [facility] | | | | | | and Healing, | | | | | | [address] | | | | | | [place], [place] | | | | | | [address] | | | | | | [phone] | | | +--------+ + + + [...] encounter Miscellaneous Notes Telephone Encounter - Eloisa Barraza RN - 02/12/2019 1:34 PM PDTFYI- [facility] phone apt not completed as scheduled It seems this patient has no phone I attempt ed to reach her at both numbers listed in epic without success, even got a 3rd number to try from [facility] with no success- Have left VM for pt to return call at number s listed in chart- Pt will need to be rescheduled for phone apt when we have a number she is reachable at.- Department advised- Halle Hinojosa [email or web address]>; Ehsan Cotto <[email or web address]> documented in this encounter Plan of Treatment Not on filedocumented as of this encounter Visit Diagnoses Not on filedocumented in this encounter"
--- OUTSIDE RECORDS SUMMARY | ~2020-05-21 | XMS | Encounter Summary ---
Demographics + + + | Address | [address] | | | [place] [address] | + + + | Home Phone | | + + + | Preferred Language | Unknown | + + + | Marital Status | Single | + + + | Lutheran Affiliation | 1041 | + + + [...] [place] | | | | | [address] | | + + + + + | Pratibha Hester | ECON | Unknown | + | + + + + + | Demian Powell | ECON | Unknown | + | + + + + + Care Team Providers + +------+ + | Care Assistant Scientist Name | Role | Phone | + +------+ + | Gracie Lewis PA-C | PCP | | + +------+ + Reason for Visit +--------+--------+ + | Reason | Onset | Comments | | | Date | | +--------+--------+ + | Other | 03/17/ | | | | 2014 | | +--------+--------+ + Encounter Details +--------+ + + + + | Date | Type | Department | Care Team | Description | +--------+ + + + + | 03/17/ | Telephone | [facility] | Sascha Mir, | Other | | 2014 | | NEUROSUR[address]ERY [address] | DO [address] | | | | | [address] | [address] [place], [place] | | | | | [place] | [phone] | | | | | [address] | | | | | | [phone] | | | +--------+ + + + [...] Encounter - Elina Fairbanks Cert MA - 03/21/2015 11:03 AM PDTLetter generated and placed in the mail to the patient today. ELINA FAIRBANKS elephone Encounte r Sascha Hodges DO - 03/21/2015 6:41 AM PDTPlease make it so. You could put activity a s tolerated, but currently undergoing workup for continued medical issues. Thanks. elephone Enco unter - Elina Fairbanks Cert MA - 03/20/2015 8:37 AM PDTLavon returned my call. Demian is wa nting a letter stating that she can work currently but with the recommended restrictions. S he somehow wants the fact that she is having further work-up done for her current symptoms, mentioned in the letter. She would like this mailed to her address on file. Please advise. ELINA FAIRBANKS elephone Encounte r - Elina Fairbanks Cert MA - 03/18/2015 12:50 PM PDTVM left for patient requesting a call bertha avery. ELINA FAIRBANKS elephone Sepideh Benton - 03/18/2015 9:09 AM PDTPatient returned call. Would like a call back. elephone Encounter - Elina Patel Cert MA - 03/18/2015 8:15 AM PDTVM left for Henry requesting a return call. ELINA FAIRBANKS elephone Sepideh Benton - 03/17/2015 4:33 PM PDTPatient called stating that she would like a Re turn to Work letter so that she can start looking for a job. Please advise. documented in this encounter Plan of Treatment Not on filedocumented as of this encounter Visit Diagnoses Not on filedocumented in this encounter"
--- OUTSIDE RECORDS SUMMARY | ~2020-05-21 | XMS | Encounter Summary ---
Demographics + + + | Address | [address] | | | [place] [address] | + + + | Home Phone [...] [place] | | | | | [address] | | + + + + + | Pratibha Hester | ECON | Unknown | + | + + + + + | Demian Powell | ECON | Unknown | + | + + + + + Care Team Providers + +------+ + | Care Auto Body Estimator Name | Role | Phone | + [...] | | | spondylolist | | [place] | | | | | hesis | | [place], | | | | | Acquired | | [place] [address] | | | | | spondylolist | | Phone: | | | | | hesis | | [phone] | | | | | Procedures | | Fax: | | | | | [place] | | [phone] | | | | | POST/POSTERO | [...] + + | 12/12/ | Hospital | [facility] | Sascha Mir, | Acquired | | 2015 | Encounter | MED CTR XRAY [address] | DO [address] | spondylolisthesis | | | | [place] | [address] | | | | | [place] [address] | [address] | | | | | [phone] | | | +--------+ + + + [...] | + +--------+ + + + | NORAH GALLEGO STATS NO | Routin | 12/12/2014 | Acquired | Results for this | | CHARGE | e | 12:10 PM | spondylolisthesis | procedure are in the | | | | PDT | | results section. | + +--------+ + + + documented in this encounter Results NORAH Navarro Statblas No Charge (12/12/2014 12:10 PM PDT) + + | Specimen | + + | | + + + + + | Narrative | Performed At | + + + | No Radiologist interpretation, please see Chart Review. | [facility] | | | [facility] | | | [facility] | | | - IMAGING | + + + + + + + + | Performing | Address | City/State/Zipcode | Phone Number | | Organization | | | | + + + + + | [address] | [address] | [place] | [phone] | | [facility] | | [address] | | | - IMAGING | | | | + + + + + documented in this encounter Visit Diagnoses + + | Diagnosis | + + | Acquired spondylolisthesis | + + documented in this encounter"
--- OUTSIDE RECORDS SUMMARY | ~2020-05-21 | XMS | Encounter Summary ---
Demographics + + + | Address | [address] | | | [place] [address] | + + + | Home Phone | | + + + | Preferred Language | Unknown | + + + | Marital Status | Single | + + + | Bahai Affiliation | CAT | + + + | Race | Unknown | + + + | Ethnic Group | Not or | + + + Author + + + | Author | [facility] | + + + | Organization | [facility] | + + + | Address | Unknown | + + + | Phone | Unavailable | + + + Support + + +---------+ + | Name | Relationship | Address | Phone | + + +---------+ + | Alisia Nina | ECON | Unknown | | + + +---------+ + Care Team Providers + +------+ + | Care Medical Safety Director Name | Role | Phone | [...] | | Medicine Clinic at | RN [place], [place] | | | | | [facility] | [address] | | | | | [address] | | | | | | [place] [facility] | | | | | | and Healing, | | | | | | [address] | | | | | | [facility] [place] | | | | | | [address] | | | | | | [phone] | | | +--------+ + + + [...]
--- OUTSIDE RECORDS SUMMARY | ~2020-05-21 | XMS | Encounter Summary ---
Demographics + + + | Address | [address] | | | [place] [address] | + + + | Home Phone [...] Author + + + | Author | [facility] | + + + | Organization | [facility] | + + + | Address | Unknown | + + + | Phone | Unavailable | + + + Support + + +---------+ + | Name | Relationship | Address | Phone | + + +---------+ + | Alisia Nina | ECON | Unknown | | + + +---------+ + Care Team Providers + +------+ + | Care Command And Control Specialist Name | Role | Phone | [...] | | | | | ear | [facility], | | | | | Dizziness | Rd | 10th Floor | | | | | Procedures | [place], [place] | [place], [place] | | | | | [place] | [address] | [address] | | | | | BENIGN | Phone: | Phone: | | | | | DISEASE WO | [phone] | [phone] | | | | | [place] | Fax: | Fax: | | | | | SCAN,ORBIT/S | [phone] | [phone] | | | | | CORY/POST | [...] | | | | | ear | [facility] | [facility], | | | | | Dizziness | Rd | 10th Floor | | | | | Procedures | [place], [place] | [place], [place] | | | | | [place] | [address] | [address] | | | | | BENIGN | Phone: | Phone: | | | | | DISEASE WO | [phone] | [phone] | | | | | [place] [address] | Fax: | Fax: | | | | | SCAN,ORBIT/S | [phone] | [phone] | | | | | CORY/POST | [...] | 2014 | Encounter | Services at [facility] | | | | | | [address] | | | | | | [place] | | | | | | [address] | | | | | | [place], [place] | | | | | | [address] | | | | | | [phone] | | | +--------+ + + + [...] | + +---------+ + + | [facility] OF | | | | | RADIOLOGY | | | | + +---------+ + + documented in this encounter Visit Diagnoses + + | Diagnosis | + + | Conductive hearing loss in right ear Conductive hearing loss, unilateral | + + | Dizziness Dizziness and giddiness | + + documented in this encounter"
--- OUTSIDE RECORDS SUMMARY | ~2020-05-21 | XMS | Clinical Summary ---
Demographics + + + | Address | [address] | | | [place] [address] | + + + | Home Phone [...] Team Providers + +------+ + | Care Rosin Barrel Filler Name | Role | Phone | + +------+ + | Gracie Lewis PA-C | PCP | | + +------+ + Source Comments WHITNEY is fully live on both [facility] Ambulatory and [facility] InPatient.[facility] Allergies + + + + + + | Active Allergy | Reactions | Severity | Noted | Comments | | | | | Date | | + + + + + + | Hydromorphone (Bulk) | Pruritus | | 04/01/20 | | | | | | 14 | | + + + + + + | Iodine | Dyspnea | High | 01/09/20 | Pt reports | | | | | 20 | difficulty breathing | | | | | | with topical iodine | | | | | | for "ingrown | | | | | | toenail removal" | + + + + + + [...] | | + + + +---------+------+------+-------+ | lisinopril 10 mg | Take 10 mg by mouth | | 0 | | | Activ | | oral tablet | once daily. | | | | | e | + + + +---------+------+------+-------+ | loratadine 10 mg | Take by mouth. | | 0 | | | Activ | | oral capsule | | | | | | e | + + + +---------+------+------+-------+ | Mometasone 220 mcg | Inhale 1 puff once | | 0 | | | Activ | | (30 doses) | daily. | | | | | e | | inhalation aerosol | | | | | | | | powdr breath | | | | | | | | activated | | | | | | | + + + +---------+------+------+-------+ | montelukast 10 mg | Take 10 mg by mouth | | 0 | | | Activ | | oral tablet | once daily in the | | | | | e | | | evening. | | | | | | + + + +---------+------+------+-------+ | terbinafine 250 mg | Take 250 mg by mouth | | 0 | | | Activ | | oral tablet | once daily. | | | | | e | + + + +---------+------+------+-------+ | atorvastatin 20 mg | | | 0 | 10/2 | | Activ | | oral tablet | | | | 2/20 | | e | | | | | | 19 | | | + + + +---------+------+------+-------+ | cholecalciferol | Take by mouth. | | 0 | | | Activ | | (Vitamin D3) | | | | | | e | | (VITAMIN D3) 1,000 | | | | | | | | unit oral tablet | | | | | | | + + + +---------+------+------+-------+ | VICTOZA 2-LAUREANO 0.6 | | | 0 | 11/1 | | Activ | | mg/0.1 mL (18 mg/3 | | | | 3/20 | | e | | mL) subcutaneous pen | | | | 19 | | | | injector | | | | | | | + + + +---------+------+------+-------+ | meclizine 25 mg | Take 25 mg by mouth. | | 0 | | | Activ | | oral tablet | | | | | | e | + + + +---------+------+------+-------+ | losartan 25 mg | | | 0 | 10/2 | | Activ | | oral tablet | | | | 2/20 | | e | | | | | | 19 | | | + + + +---------+------+------+-------+ | methocarbamol 500 | | | 0 | 09/1 | | Activ | | mg oral tablet | | | | 6/20 | | e | | | | | | 19 | | | + + + +---------+------+------+-------+ | naproxen 250 mg | Take 250 mg by | | 0 | | | Activ | | oral tablet | mouth. | | | | | e | + + + +---------+------+------+-------+ | omeprazole 20 mg | Take 1 capsule by | 30 | 2 | 11/2 | | Activ | | oral capsule,delayed | mouth once daily. | capsule | | 0/20 | | e | | release(DR/EC) | Administer 30 to 60 | | | 19 | | | | | minutes before meals | | | | | | + + + +---------+------+------+-------+ | peg-electrolyte | Take 6000ml total | 8000 mL | 0 | 05/1 | | Activ | | [id number] -5.86 | (1.5 jugs) by mouth | | | 5/20 | | e | | gram oral recon | starting on the day | | | 20 | | | | soln | prior to colonoscopy | | | | | | | | as directed by | | | | | | | | [facility]. Discard | | | | | | | | remaining half jug. | | | | | | | | Indications: Bowel | | | | | | | | Evacuation | | | | | | + + + +---------+------+------+-------+ | ondansetron 4 mg | 4 mg as needed. | | 0 | 05/1 | | Activ | | oral tablet | | | | 2/20 | | e | | | | | | 20 | | | + + + +---------+------+------+-------+ | metFORMIN SR 500 | 500 mg. | | 0 | 05/1 | | Activ | | mg oral tablet | | | | 1/20 | | e | | extended release 24 | | | | 20 | | | | hr | | | | | | | + + + +---------+------+------+-------+ | insulin glargine | by | | 0 | | | Activ | | 100 unit/mL | Intramuscular/Subcut | | | | | e | | subcutaneous | aneous route. | | | | | | | solution | | | | | | | + + + +---------+------+------+-------+ | clotrimazole 1 % | | | 0 | 05/0 | | Activ | | vaginal cream | | | | 4/20 | | e | | | | | | 20 | | | + + + +---------+------+------+-------+ | fluticasone | Inhale 1 puff. | | 0 | | | Activ | | propion-salmeteroL | | | | | | e | | 250-50 mcg/dose | | | | | | | | inhalation blister | | | | | | | | with device | | | | | | | + + + +---------+------+------+-------+ | WIXELA INHUB | inhale 1 puff by | | 0 | 04/2 | | Activ | | 250-50 mcg/dose | mouth twice a day | | | 0/20 | | e | | inhalation blister | | | | 20 | | | | with device | | | | | | | + + + +---------+------+------+-------+ | COMBIVENT RESPIMAT | inhale 1 puff by | | 0 | 04/2 | | Activ | | 20-100 | mouth every 6 hours | | | 0/20 | | e | | mcg/actuation | if needed | | | 20 | | | | inhalation mist | | | | | | | + + + +---------+------+------+-------+ | celecoxib 200 mg | 200 mg. | | 0 | 05/0 | | Activ | | oral capsule | | | | 6/20 | | e | | | | | | 20 | | | + + + +---------+------+------+-------+ | cephALEXin 500 mg | 500 mg. | | 0 | 05/0 | | Activ | | oral capsule | | | | 4/20 | | e | | | | | | 20 | | | + + + +---------+------+------+-------+ Active Problems + + + | Problem | Noted Date | + + + | Essential hypertension | 12/26/2019 | + + + | Left hip pain | 12/26/2019 | + + + | Severe obesity | 06/26/2019 | + + + | Chronic low back pain | 07/22/2015 | + + + | Lumbar radiculopathy | 07/22/2015 | + + + | S/P lumbar fusion | 07/22/2015 | + + + | ETD (eustachian tube dysfunction) | 04/01/2014 | + + + | OME (otitis media with effusion) | 04/01/2014 | + + + | Conductive hearing loss in right ear | 04/01/2014 | + + + | Dizziness | 04/01/2014 | + + + | Nausea | 04/01/2014 | + + + | Facet arthropathy, lumbosacral | 10/27/2012 | + + + | Foraminal stenosis of lumbosacral region | 10/27/2012 | + + + | Synovial cyst of lumbar facet joint | 10/27/2012 | + + + | Pars defect of lumbar spine | 05/18/2012 | + + + | Asthma | 05/18/2012 | + + + | Sacroiliitis | 05/18/2012 | + + + | GERD (gastroesophageal reflux disease) | | + + + | Diabetes mellitus | | + + + | Hx of degenerative disc disease | | + + + | Anxiety | | + + + Family History + + +------+ + | Medical History | Relation | Name | Comments | + + +------+ + | Heart Attack | Father | | Cause of | + + +------+ + | Cancer | Mother | | | + + +------+ + + +------+ + + | Relation | Name | Status | Comments | + +------+ + + | Father | | | | + +------+ + + | Mother | | Alive | | + +------+ + + Social History + +-------+ +--------+------+ [...] + + + | Blood Pressure | 118/75 | 01/09/2020 9:45 AM | Simultaneous filing. | | | | PDT | User may not have | | | | | seen previous data. | + + + + + | Pulse | 83 | 01/09/2020 8:51 AM | | | | | PDT | | + + + + + | Temperature | 36.5 C (97.7 F) | 01/09/2020 8:51 AM | | | | | PDT | | + + + + + | Respiratory Rate | 16 | 01/09/2020 9:45 AM | Simultaneous filing. | | | | PDT | User may not have | | | | | seen previous data. | + + + + + | Oxygen Saturation | 98% | 01/09/2020 9:45 AM | Simultaneous filing. | | | | PDT | User may not have | | | | | seen previous data. | + + + + + | Inhaled Oxygen | - | - | | | Concentration | | | | + + + + + | Weight | 99.8 kg (220 lb) | 01/09/2020 7:20 AM | | | | | PDT | | + + + + + | Height | 162.6 cm (5' 4") | 01/09/2020 7:20 AM | | | | | PDT | | + + + + + | Body Mass Index | 37.76 | 01/09/2020 7:20 AM | | | | | PDT | | + + + + + Plan of Treatment + + + + + | Health Maintenance | Due Date | Last | Comments | | | | Done | | + + + + + | CT COLONOGRAPHY | | | | | | 1 | | | + + + + + | FECAL IMMUNOCHEMICAL | | | | | TEST (FIT) | 1 | | | + + + + + | FIT DNA (Cologuard) | | | | | | 1 | | | + + + + + | SIGMOIDOSCOPY | | | | | | 1 | | | + + + + + | Pneumococcal | | 07/07/20 | | | vaccination (1 of 1 | 7 | 10, | | | - PPSV23) | | 07/07/20 | | | | | 10, | | | | | 07/07/20 | | | | | 10 | | + + + + + | Influenza (Flu) | | 06/13/20 | | | vaccination (#1) | 0 | 19, | | | | | 10/03/19 | | | | | 19, | | | | | 05/25/20 | | | | | 17, | | | | | Addition | | | | | al | | | | | history | | | | | exists | | + + + + + | COLONOSCOPY | | 01/09/20 | | | | 3 | 20 | | + + + + + | Colorectal Cancer | | | | | Screening | 3 | | | + + + + + Results Not on filefrom Last 3 Months Insurance + +--------+ +--------+-------+---------+--------+ | Payer | Benefi | Subscriber | Effect | Phone | Address | Type | | | t Plan | ID | keisha | | | | | | / | | Dates | | | | | | Group | | | | | | + +--------+ +--------+-------+---------+--------+ | TITRATOR MEDICAID | TITRATOR | [id number] | 08/08/19 | | | Medica | | | [place]AST[place] | | 18-Pre | | | id | | | [place] | | sent | | | | + +--------+ +--------+-------+---------+--------+ | [facility] | [employer] [facility] | [id number] | Effect | | | Agency | | SERVICE | | | keisha | | | | | | HEALTH | | for | | | | | | | | all | | | | | | SERVIC | | dates | | | | | | E | | | | | | + +--------+ +--------+-------+---------+--------+ + +--------+ +--------+ + + | Guarantor Name | Accoun | Relation to | Date | Phone | Billing Address | | | t Type | Patient | of | | | | | | | | | | + +--------+ +--------+ + + | Demian Nina | Person | Self | [birth year] | [address] | | | al/Fam | | 1970 | [phone] | [place] [address] | | | neil | | | 1 (Home) | | + +--------+ +--------+ + + | Demian Nina | Agency | Self | [birth year] | | [address] | | | | | 1970 | [phone] | [place] [address] | | | | | | 1 (Home) | | + +--------+ +--------+ + + Advance Directives + + + + + | Code Status | Date | Date | Comments | | | Activated | Inactivated | | + + + + + | Full Code | 01/09/2020 | 01/09/2020 | | | | 7:09 AM | 4:08 PM | | + + + + +
--- OUTSIDE RECORDS SUMMARY | ~2020-05-21 | XMS | Encounter Summary ---
Demographics + + + | Address | [address] | | | [place] [address] | + + + | Home Phone | | + + + | Preferred Language | Unknown | + + + | Marital Status | Single | + + + | Baptist Affiliation | 1041 | + + + | Race | White | + + + | Ethnic Group | Not or | + + + Author + + + | Author | [facility] | | | and [place] | + + + | Organization | [facility] | | [...] [place] | | | | | [address] | | + + + + + | Pratibha Hester | ECON | Unknown | + | + + + + + | Demian Powell | ECON | Unknown | + | + + + + + Care Team Providers + +------+ + | Care Residential Air Sealing Technician Name | Role | Phone | + +------+ + | Jannette Boyle PA-C | PCP | | + +------+ + Reason for Visit +--------+--------+ + | Reason | Onset | Comments | | | Date | | +--------+--------+ + | Other | 01/01/ | Medication refill | | | 2014 | | +--------+--------+ + Encounter Details +--------+ + + + + | Date | Type | Department | Care Team | Description | +--------+ + + + + | 01/01/ | Telephone | [facility] | Sascha Mir, | Other (Medication | | 2014 | | NEUROSURGERY [address] | DO [address] | refill) | | | | [address] | [address] [place], [place] | | | | | [place], [place] | [address] | | | | | [address] | | | | | | [phone] | | | +--------+ + + + [...] this encounter Miscellaneous Notes Telephone Encounter - Lenka Mann Master of Arts - 2015 8:32 AM PDTMailed Percocet, Flexeril, and Valium prescriptions that Dr. Mir approved on 01/02/15 Certified rohan jose #[id number] to patient at address she requested ([address] [place] [address] n, [place] [id number] signed by Master Lundberg of Arts at 2015 8:34 AM PDTTelephone Encounter - Sascha Mir DO - 01/01/2015 4:44 PM PDTDone. Thanks. elephone Enco unter - Lenka Mann Master of Arts - 01/01/2015 3:06 PM PDTMedication Refill Requ est Procedure: [id number] Date of Surgery: 12/12/14 Medication requested: Percocet, Flexeril, and Valium Current intake: Percocet-- 2 tabs. every 4-6 hours, Flexeril (does not know dosage).-- 1tab . every 6 hours, Valium--1tab. every 6 hours Date of last refill: 12/16/14 # of tabs left before medication runs out: Flexeril- out completely, Valium- out completely , Percocet- out completely Where is pain located?: in back down by her tail bone, all the way up her left side. Left side goes numb periodically. Type of pain (constant, intermittent, sharp, dull)?: constant pain, without narcotics stabb ing pain. Send in the mail or call in to preferred pharmacy? [facility] [address] ele phone Encounter - Lenka Mann Master of Arts - 01/01/2015 3:01 PM PDTCalled juani nt to get further details of her medication refill request. Had to leave a messageElectroni lupillo signed by Lenka Mann Master of Arts at 01/01/2015 3:02 PM PDTTelephone Enco bayron - Haydee Whiting - 01/01/2015 11:19 AM PDTPatient called back to add RX refill for d iazepam (VALIUM) 5 mg tablet to her previous RX request. elephone Encounter - Melida Lindquist - 01/01/2015 9:38 AM PD TLavon called to request a refill of Percocet and Flexeril. She is out of Percocet and would like to know if we can authorize Анна to continue giving the medication to her. Sammy glover advise. documented in t his encounter Plan of Treatment Not on filedocumented as of this encounter Visit Diagnoses Not on filedocumented in this encounter"
--- OUTSIDE RECORDS SUMMARY | ~2020-05-21 | XMS | Encounter Summary ---
Demographics + + + | Address | [address] | | | [place] [address] | + + + | Home Phone | | + + + | Preferred Language | Unknown | + + + | Marital Status | Single | + + + | Zoroastrian Affiliation | [phone] | + + + | Race | White | + + + | Ethnic Group | Not or | + + + Author + + + | Author | [facility] | | | and [place] | + + + | Organization | [facility] | | [...] [place] | | | | | [address] | | + + + + + | Pratibha Hester | ECON | Unknown | + | + + + + + | Demian Powell | ECON | Unknown | + | + + + + + Care Team Providers + +------+ + | Care Utility Hand Name | Role | Phone | + +------+ + | Gracie Lewis PA-C | PCP | | + +------+ + Reason for Visit + + + | Reason | Comments | + + + | New Patient | chest pain and htn | + + + Evaluate & Treat (Routine) +--------+--------+ + + + + | Status | Reason | Specialty | Diagnoses / | Referred By | Referred To | | | | | Procedures | Contact | Contact | +--------+--------+ + + + + | Closed | | Cardiology | Diagnoses | Joshua, | Shi, | | | | | CHEST PAIN | Gracie Armendariz, | Rudy Capellan MD | | | | | - CARDIAC | PA-C [id number] | [phone] | | | | [address] | [address] | [address] | | | | | | [place] | [address] [address] | | | | | | [place] [address] | [place], [place] | | | | | | Phone: | [phone] Phone: | | | | | | [phone] | [phone] | | | | | | Fax: | Fax: | | | | | | [phone] | [phone] | +--------+--------+ + + + + Encounter Details +--------+---------+ + + + | Date | Type | Department | Care Team | Description | +--------+---------+ + + + | 09/25/ | Office | [facility] | Rudy Osullivan, | Atypical chest pain | | 2020 | Visit | CARDIOLOGY [place] | MD [address] | (Primary Dx); | | | | [address] [facility] | [address], | Essential | | | | [address] | [place] [address] | hypertension; | | | | [place], [place] | [phone] | Preoperative | | | | [address] | | cardiovascular | | | | [phone] | | examination; | | | | | | Accident caused by | | | | | | hypodermic needle, | | | | | | sequela; Family | | | | | | history of premature | | | | | | CAD | +--------+---------+ + + + Social History [...] + documented in this encounter Progress Notes Rudy Osullivan MD - 09/25/2019 10:45 AM PSTFormatting of this note might be different fro m the original. Subjective: Patient ID: Demian Nina is a 49 y.o. female. HPI Patient's medications, allergies, past medical, surgical, social and family histories were obtained and reviewed as appropriate. Demian to the office today for a cardiology evaluation for a long history of atypical chest pain, dating back to at least 2012. She had an exercise Cardiolite stress test 04/12/2014, th at was felt to be normal, although she questionable anterior ischemic defect, although it wa s noted that the computerized evaluation showed no reversibility. She had a CT coronary jigar cium score of 0 in 2013. Continues to have episodes of chest pain "whenever I have somethin g going on I want to do", most recently going back to school it was very hard to get a strai ght answer to direct questions. Her visit was requested because she believes she broke off an insulin needle in her abdominal skin approximately 1 year ago, and continues to have tend erness, for which she was supposed to have had surgery with Dr. Botello, but it was deferred b ecause of these chest pains. On questioning, it is hard to get a good story from her. Her answers bounce around temporarily, but from the best that I can determine, the pains occur 2 -3 times per week, and have been increasing in frequency since August when she went back to school. They are located in the left parasternal border, about the fourth intercostal spac e, and are reproducible with palpation on my exam. Subjectively, they reach "4 "on a 1-10 s genny in intensity at 5-10 minutes. There is some positional component, no clear pleuritic c omponent. There is no associated dyspnea, but she states that she gets sweaty, has frequent nausea unrelated to the pain, occasionally it radiates to her left arm and back, but she mendoza s chronic numbness and tingling which is the same radiation symptoms that she describes. It is somewhat better when she lies down. Her EKG is unremarkable, and despite her risk facto rs for coronary artery disease (diabetes, remote history of smoking, family history of deep ture CAD) I do not think that her current symptoms represent angina pectoris, as they are qu ite atypical for that diagnosis and are much more consistent with costochondritis, with whic h she has been diagnosed previously, most recently on an emergency room visit at [facility] in August. See no reason why she could not have surgery remove the broken needle , as this is superficial, and as such, it is a low risk procedure. No further cardiology ev aluation appears to be needed. ROS CONSTITUTIONAL: Morbid Obesity, 35 lb weight decrease (max 277 lbs) in the past year, lópez es recent fever, chills, night sweats, c/o significant Fatigue NEUROLOGIC: Hyperglycemic "coma" 2017. No history of CVA, TIA, states both legs were para lyzed, 2013 after her sister , kind of "seizured out", has a h/o Migraines, no auras, no h/o seizures other, had a syncopal event age 14. She feels "off balance every now and then ", denies dizziness, lightheadedness. She has bilateral hand numbness, tingling, pins-and-ne edles paresthesias. EYES: No amaurosis, diplopia, has had vaguely described visual changes, denies cataracts o r glaucoma ENT: Left-sided hearing loss, tinnitus, denies epistaxis, rare dysphagia ENDOCRINE: She has a history of Insulin-requiring Type II Diabetes mellitus. No history of thyroid disorders or other endocrine problems. c/o excessive thirst. PULMONARY/SLEEP: No significant dyspnea, orthopnea, paroxysmal nocturnal dyspnea. She has a history of Asthma, emphysema. No history of pneumonia. Denies significant snoring, daytim e somnolence. Sleep is refreshing. CARDIOVASCULAR: Recurrent episodes of atypical chest pain. No history of CAD. No history of heart failure. No history of cardiac arrhythmias. No palpitations. No history of a heart murmur, rheumatic fever. She has Essential Hypertension, No history of hyperlipidemia. No edema, no claudication symptoms. No h/o an AAA. -- Echo (05/31/18 - [facility]): EF 60-65%, normal RV size, function, mild MR -- Coronary CT Calcium Score (06/12/14 - [facility]): -0-, low risk -- Exercise Cardiolite Stress Test (04/12/14 - [facility]): exercised 6:38, 7 METS, max HR 173, 97% MPHR, no ST changes, ? small area of anterior ischemia on SPECT, EF 50% GASTROINTESTINAL: She has near constant abdominal pain, nausea, no vomiting, has had diarr hea. She had Pancreatitis. She has a h/o GERD, PUD, melena, hematochezia, hepatitis. 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 No dysuria, h ematuria, urinary urgency, hesitancy. She is on ERT. HEMATOLOGY/ONCOLOGY: No h/o bleeding disorders, DVT, PE. Denies easy bruisability or ble eding. No history of anemia, ? Transfusion with childbirth. No history of cancer. MUSCULOSKELETAL: No myalgias, Has Osteoarthritis with wrist, finger arthralgias, has a h/ o Luimbar DDD. No history of rheumatologic or autoimmune diseases. CUTANEOUS: No rashes, has pruritus, no other skin lesions. PSYCHIATRIC: No history of depression, ? Anxiety, no other psychiatric problems. Past Medical History: Diagnosis Date Adverse effect of anesthesia trouble with itching & shortness of breath after anesthesia. Anemia Anxiety Asthma Chronic back pain Chronic low back pain 07/22/2015 Diabetes mellitus (HCC) 2013 Insulin requiring type II Diabetes Essential hypertension Gastric reflux Heart attack (HCC) 2010 Lumbar radiculopathy 07/22/2015 Migraine Morbid obesity (HCC) Multiple allergies Pars defect of lumbar spine Pelvic inflammatory disease Peptic ulcer PONV (postoperative nausea and vomiting) S/P lumbar fusion 07/22/2015 Spondylolisthesis of lumbar region Trochanteric bursitis Ulcer of the stomach and intestine Past Surgical History: Procedure Laterality Date ADENOIDECTOMY SECTION, LOW TRANSVERSE 1995 [facility]; [place] SECTION, LOW TRANSVERSE 2005 [facility]; [place] CHOLECYSTECTOMY LUMBAR LAMINECTOMY N/A 12/12/2014 Procedure: L5-S1 Transforaminal Lumbar Interbody Fusion; Surgeon: Sascha Mir DO; Lo cation: [facility] MAIN OR SHOULDER SURGERY Right TONSILLECTOMY Family History Problem Relation Age of Onset Stroke Sister Other (see comment) Sister passed in her sleep unsure of cause Coronary artery disease Sister 37 CABG Seizures Sister Diabetes Sister Renal failure Sister Arthritis Sister Mental illness Sister Heart attack Father Coronary artery disease Father Hypertension Mother Arthritis Mother Asthma Daughter Asthma Son Alcohol abuse Other No known problems Maternal Grandmother No known problems Maternal Grandfather No known problems Paternal Grandmother No known problems Paternal Grandfather Social History Socioeconomic History Marital status: Single Spouse name: Not on file Number of children: 2 Years of education: Not on file Highest education level: Not on file Occupational History Comment: UNEMPLOYED Social Needs Financial resource strain: Not on file Food insecurity: Worry: Not on file Inability: Not on file Transportation needs: Medical: Not on file Non-medical: Not on file Tobacco Use Smoking status: Former Smoker Packs/day: 0.50 Years: 2.00 Pack years: 1.00 Types: Cigarettes Last attempt to quit: 04/18/2013 Years since quittin.4 Smokeless tobacco: Never Used Substance and Sexual Activity Alcohol use: Not Currently Comment: Rare Drug use: No Types: Methamphetamines Comment: no longer using, has tried others in the past Sexual activity: Never Comment: x4 years per pt Lifestyle Physical activity: Days per week: Not on file Minutes per session: Not on file Stress: Not on file Relationships Social connections: Talks on phone: Not on file Gets together: Not on file Attends church service: Not on file Active member of club or organization: Not on file Attends meetings of clubs or organizations: Not on file Relationship status: Not on file Intimate partner violence: Fear of current or ex partner: Not on file Emotionally abused: Not on file Physically abused: Not on file Forced sexual activity: Not on file Other Topics Concern Not on file Social History Narrative Not on file Allergies Allergen Reactions Anesthetics, Ludmila Anaphylaxis,Itching,Swelling Allergic to anesthetics - reports throat swelling, itching Ethyl Chloride Anaphylaxis Had ingrown toenail removed last year. Several hours after procedure, patient developed an aphylaxis. Believed to be from ethyl chloride spray, per patient. Povidone Iodine Shortness Of Breath,Swelling Throat swelling and difficulty breathing Procainamide Hcl Anaphylaxis Allergic to anesthetics Allergic to anesthetics Latex Itching Morphine Itching,Rash Hydromorphone Itching,Rash Intolerance No active intolerances/contraindications Current Outpatient Medications Medication Sig Dispense Refill albuterol 90 mcg/puff inhaler Inhale 1-2 puffs into the lungs every 4 hours as needed f or Wheezing or Shortness of Breath. ferrous sulfate 324 (65 Fe) MG EC tablet Take 324 mg by mouth daily (with breakfast). Laxouzt-Reidpahjnsgm-Krvkljkct (TRI-RAJ) 0.01-4-0.05 % CREA APPLY TO CLEAN [...] No current facility-administered medications for this visit. Objective: BP 116/62 | Pulse 102 | Ht 1.676 m (5' 6") | Wt 105.4 kg (232 lb 6.4 oz) | SpO2 96% | BMI 37.51 kg/m PHYSICAL EXAM GENERAL: Moderately obese, well developed, well nourished middle aged woman, in no distress . Appears approximately stated age. HEENT: Normocephalic, atraumatic. EYES: PERRL, sclerae anicteric, no xanthelsasmas MOUTH: Oral mucosae moist, dentition adequate, no lesions noted NECK: No JVD, lymphadenopathy, thyromegaly, bruits. Carotid pulses are 2+ bilaterally LUNGS: Clear bilaterally, with no rales, rhonchi or wheezing noted, respirations unlabored HEART: Nondisplaced PMI, regular rate and rhythm, S1, S2 normal. No murmurs, rubs or gall ops noted. ABDOMEN: Soft, nontender, no organomegaly, masses or bruits. Bowel sounds are normal in a ll 4 quadrants. The abdominal aortic pulsation is not palpable. EXTREMITIES: No edema. Radial pulses 2+ bilaterally. Femoral pulses are 2+ bilaterally wi thout bruits. DP and PT pulses are 2+ bilaterally. SKIN: Warm and dry, capillary refill is normal, no lesions. NEUROLOGIC: Awake, alert and oriented x 3. No focal motor deficits. PSYCHIATRIC: Appropriate, affect appears flat, and I had a hard time getting her to answer questions directly EKG (personally reviewed today): Normal sinus rhythm, rate 98, mildly prolonged QT interval , QTc 482 ms, otherwise normal tracing, no significant change compared to 06/08/2019 Assessment: Demian was seen today for new patient. Diagnoses and all orders for this visit: Atypical chest pain - ECG 12 lead Essential hypertension Preoperative cardiovascular examination Accident caused by hypodermic needle, sequela Family history of premature CAD Plan: No testing required do cumented in this encounter Plan of Treatment Not [...] in this encounter Results ECG 12 lead (09/25/2019 1:03 PM PST) [...] at | | | | | | [facility])Confirmed by Shi | | | | | | Rudy ANAND ([id number]) on | | | | | | [...] + | Diagnosis | + + | Atypical chest pain - Primary Other chest pain | + + | Essential hypertension Unspecified essential hypertension | + + | Preoperative cardiovascular examination Pre-operative cardiovascular examination | + + | Accident caused by hypodermic needle, sequela | + + | Family history of premature CAD Family history of ischemic heart disease | + + documented in this encounter
--- OUTSIDE RECORDS SUMMARY | ~2020-05-21 | XMS | Encounter Summary ---
Demographics + + + | Address | [address] | | | [place] [address] | + + + | Home Phone | | + + + | Preferred Language | Unknown | + + + | Marital Status | Single | + + + | Jewish Affiliation | CAT | + + + | Race | Unknown | + + + | Ethnic Group | Not or | + + + Author + + + | Author | [facility] | + + + | Organization | [facility] | + + + | Address | Unknown | + + + | Phone | Unavailable | + + + Support + + +---------+ + | Name | Relationship | Address | Phone | + + +---------+ + | Alisia Nina | ECON | Unknown | | + + +---------+ + Care Team Providers + +------+ + | Care Plc Technician Name | Role | Phone | [...] | | ([facility] [address] | [facility] | | | | | Jennifer Schreiber | [place], [place] | | | | | Mailcode: [place] | [address] | | | | | [facility] and | [phone] | | | | | [facility] [address] | | | | | | [place], [place] | | | | | | [address] | | | | | | [phone] | | | +--------+ + + + [...]
--- OUTSIDE RECORDS SUMMARY | ~2020-05-21 | XMS | Encounter Summary ---
Demographics + + + | Address | [address] | | | [place] [address] | + + + | Home Phone [...] + | Author | [facility] | | | and [place] | + + + | Organization | [facility] | | | and [...] [place] | | | | | [address] | | + + + + + | Pratibha Hester | ECON | Unknown | + | + + + + + | Demian Powell | ECON | Unknown | + | + + + + + Care Team Providers + +------+ + | Care Gis Mapping Technician Name | Role | Phone | + +------+ + | Quentin Manriquez PA-C | MAR[place] | | + +------+ + Reason for Visit + +--------+ + | Reason | Onset | Comments | | | Date | | + +--------+ + | Appointment | 12/27/ | | | | 2014 | | + +--------+ + Encounter Details +--------+ + + + + | Date | Type | Department | Care Team | Description | +--------+ + + + + | 12/27/ | Telephone | [facility] | Sascha Mir, | Appointment | | 2014 | | NEUROSURGERY [address] | DO [address] | | | | | [address] | [address] [place], [place] | | | | | [place] | [phone] | | | | | [address] | | | | | | [phone] | | | +--------+ + + + [...] Encounter - Elina Fairbanks Cert MA - 12/27/2014 12:57 PM PDTI spoke with Demian. I relayed the message to her in detail. She verbalizes understanding. ELINA FAIRBANKS elephone Matte Sascha Gonzalez DO - 12/27/2014 12:23 PM PDTIt's not expected, but it can happen with s uch a big correction of a slipped bone. I'm sorry she isn't doing better yet, but given time she should. Thanks. elephone Enco unter - Elina Fairbanks Cert MA - 12/27/2014 9:21 AM PDTI spoke with Demian today. She C/O n umbness/tingling in her left thigh since surgery. She also states she has weakness in that leg since surgery. She wants to know if this is something to be expected, should she be con cerned? She also asks if she should be seen sooner than her 4 week po visit for these sympt oms. She is S/P L5-S1 Fusion on 12/12/14. Her next visit is on 12/31/14 for a staple remova l with me and then on 01/06 for her 4 week po visit. Please advise. ELINA FAIRBANKS elephone Karis Storey 12/27/2014 9:02 AM PDTPatient calls today because she is experiencing numbness in her left thigh since surgery. She states that she has spoken with someone in the nursing staff about this and that a possible additional office visit was discussed. She is currently scheduled for a staple removal on 12/31/14. Please advise. documented in this encounter Plan of Treatment Not on filedocumented as of this encounter Visit Diagnoses Not on filedocumented in this encounter"
--- OUTSIDE RECORDS SUMMARY | ~2020-05-21 | XMS | Encounter Summary ---
Demographics + + + | Address | [address] | | | [place] [address] | + + + | Home Phone [...] + | Author | [facility] | | | and [place] | + + + | Organization | [facility] | | | and [...] [place] | | | | | [address] | | + + + + + | Pratibha Hester | ECON | Unknown | + | + + + + + | Demian Powell | ECON | Unknown | + | + + + + + Care Team Providers + +------+ + | Care Closet Builder Name | Role | Phone | + +------+ + | Quentin Manriquez PA-C | MARCK | | + +------+ + Reason for Visit +--------+--------+ + | Reason | Onset | Comments | | | Date | | +--------+--------+ + | Other | 06/09/ | | | | 2014 | | +--------+--------+ + Encounter Details +--------+ + + + + | Date | Type | Department | Care Team | Description | +--------+ + + + + | 06/09/ | Telephone | [facility] | Sascha Mir, | Other | | 2014 | | NEUROSURGERY [address] | DO [address] | | | | | [address] | [address] [place], [place] | | | | | [place] | [id number] | | | | | [address] | | | | | | [phone] | | | +--------+ + + + [...] Encounter - Elina Fairbanks Cert MA - 06/09/2015 3:46 PM PSTI called and let Bianca beatriz know that our office didn't send her a my chart message ELINA FAIRBANKS elephone Deanne Valerio - 06/09/2015 3:32 PM PSTPatient called states she received a blank my chart message from Dr Finch and office and would like a call back letting her know what th e message was regarding. Thank you 3 :33 PM PSTdocumented in this encounter Plan of Treatment Not on filedocumented as of this encounter Visit Diagnoses Not on filedocumented in this encounter"
--- OUTSIDE RECORDS SUMMARY | ~2020-05-21 | XMS | Encounter Summary ---
Demographics + + + | Address | [address] [facility] | | | [place] [address] | + + + | Home Phone [...] [place] | | | | | [address] | | + + + + + | Pratibha Hester | ECON | Unknown | + | + + + + + | Demian Powell | ECON | Unknown | + | + + + + + Care Team Providers + +------+ + | Care Dealer Sales Rep Name | Role | Phone | + +------+ + | Jannette Boyle PA-C | PCP | | + +------+ + Encounter Details +--------+ + + + + | Date | Type | Department | Care Team | Description | +--------+ + + + + | 02/15/ | Abstract | [facility] | Albaro Bojorquez | | | 2016 | | NEUROSURGERY [address] | [address] | | | | | [address] | [address] | | | | | [place] | [place] | | | | | [address] | [address] | | | | | [phone] | | | +--------+ + + + [...]
--- OUTSIDE RECORDS SUMMARY | ~2020-05-21 | XMS | Encounter Summary ---
Demographics + + + | Address | [address] | | | [place] [address] | + + + | Home Phone [...] [place] | | | | | [address] | | + + + + + | Pratibha Hester | ECON | Unknown | + | + + + + + | Demian Powell | ECON | Unknown | + | + + + + + Care Team Providers + +------+ + | Care Ply Splicer Name | Role | Phone | + +------+ + | Quentin Manriquez PA-C | MARCK | | + +------+ + Encounter Details +--------+ + + + + | Date | Type | Department | Care Team | Description | +--------+ + + + + | 12/05/ | Hospital | [facility] | Sascha Mir, | Bilateral lumbar | | 2015 | Encounter | [facility] | DO [address] | radiculopathy; HIP | | | | [facility] | [address] [place], [place] | PAIN, LEFT, CHRONIC; | | | | [address] | [address] | Spondylolisthesis | | | | [place] [address] | | of lumbar region | | | | [phone] | | L5-S1; Pars defect | | [...] + + documented as of this encounter Procedure Notes Smith Toth MD - 12/06/2014 7:49 AM PDTAssociated Order(s): ECG 12 LEAD Adult ECG Repo rt Name: Demian Nina Age: 44 y.o. Gender: female 12/05/14 at 11:51 Narrative Interpretation: Normal sinus rhythm. Normal axis. Normal intervals. documented in this enc ounter Plan of [...]
--- OUTSIDE RECORDS SUMMARY | ~2020-05-21 | XMS | Encounter Summary ---
Demographics + + + | Address | [address] | | | [place] [address] | + + + | Home Phone [...] Team Providers + +------+ + | Care Cook Relief Name | Role | Phone | + +------+ + | Gracie Lewis PA-C | PCP | | + +------+ + Encounter Details +--------+ + + + + | Date | Type | Department | Care Team | Description | +--------+ + + + + | 10/19/ | Outside | [facility] | Angelo Abrams | | | 2019 | Referral | [facility] [address] | MD [address] | | | | Order | [facility] for | georgette Cano | | | | | Health and Healing, | [place] [address] | | | | | [facility] | [phone] | | | | | [place], [place] | | | | | | [address] | | | | | | [phone] | | | +--------+ + + + [...]
--- OUTSIDE RECORDS SUMMARY | ~2020-05-21 | XMS | Encounter Summary ---
Demographics + + + | Address | [address] | | | [place] [address] | + + + | Home Phone | | + + + | Preferred Language | Unknown | + + + | Marital Status | Single | + + + | Restoration Affiliation | CAT | + + + | Race | Unknown | + + + | Ethnic Group | Not or | + + + Author + + + | Author | [facility] | + + + | Organization | [facility] | + + + | Address | Unknown | + + + | Phone | Unavailable | + + + Support + + +---------+ + | Name | Relationship | Address | Phone | + + +---------+ + | Alisia Nina | ECON | Unknown | | + + +---------+ + Care Team Providers + +------+ + | Care Thrill Performer Name | Role | Phone | + [...] | | 2020 | | Center at [facility] [address] | MD [address] | (follow up call) | | | | [address] | [place], [place] | | | | | for Health and | [address] | | | | | [facility] | [phone] | | | | | [place], [place] | | | | | | [address] | | | | | | [phone] | | | +--------+ + + + [...] to review their written discharge instructions call [phone] i f they had any questions or [...]
--- OUTSIDE RECORDS SUMMARY | ~2020-05-21 | XMS | Encounter Summary ---
Demographics + + + | Address | [address] [facility] | | | [place] [address] | + + + | Home Phone | | + + + | Preferred Language | Unknown | + + + | Marital Status | Single | + + + | Caodaism Affiliation | [id number] | + + + [...] [place] | | | | | [address] | | + + + + + | Pratibha Hester | ECON | Unknown | + | + + + + + | Demian Powell | ECON | Unknown | + | + + + + + Care Team Providers + +------+ + | Care Marketing Ambassador Name | Role | Phone | + +------+ + | Quentin Manriquez PA-C | MARCK | | + +------+ + Reason for Visit +--------+--------+ + | Reason | Onset | Comments | | | Date | | +--------+--------+ + | Other | 05/05/ | | | | 2014 | | +--------+--------+ + Encounter Details +--------+ + + + + | Date | Type | Department | Care Team | Description | +--------+ + + + + | 05/05/ | Telephone | [facility] | Sascha Mir, | Other | | 2014 | | NEUROSURGERY [address] | DO [address] | | | | | [address] | [address] [place], [place] | | | | | [place] | [id number] | | | | | [address] | | | | | | [phone] | | | +--------+ + + + [...] Encounter - Elina Fairbanks Cert MA - 05/05/2015 11:52 AM PDTDr. Mejía called tanna conrad stating that he needs to speak with Dr. Mir today, regarding a procedure that she is mendoza henrique done with this physician tomorrow. He would like a call back on his cell phone: [phone] Thank you, ELINA FAIRBANKS documented in this encounter Plan of Treatment Not on filedocumented as of this encounter Visit Diagnoses Not on filedocumented in this encounter"
--- OUTSIDE RECORDS SUMMARY | ~2020-05-21 | XMS | Encounter Summary ---
Demographics + + + | Address | [address] | | | [place] [address] | + + + | Home Phone [...] Author + + + | Author | [facility] | | | and [place] | + + + | Organization | [facility] | | | and [...] [place] | | | | | [address] | | + + + + + | Pratibha Hester | ECON | Unknown | + | + + + + + | Demian Powell | ECON | Unknown | + | + + + + + Care Team Providers + +------+ + | Care Director Of Curriculum Name | Role | Phone | + +------+ + | Quentin Manriquez PA-C | MARCK | | + +------+ + Encounter Details +--------+ + + + + | Date | Type | Department | Care Team | Description | +--------+ + + + + | 06/04/ | Hospital | [facility] | Sascha Mir, | Spondylolisthesis, | | 2014 | Encounter | MED CTR XRAY [address] | DO [address] | lumbar region; S/P | | | | [place] | [address] | lumbar fusion; | | | | [place] [address] | [id number] | Lumbar radicular | | | | [phone] | | pain | +--------+ + + + + Social [...] + + + | XR LUMBAR SPINE 4 + | Routin | 06/04/2015 | Spondylolisthesis, | Results for this | | VW | e | 12:53 PM | lumbar region S/P | procedure are in the | | | | PDT | lumbar fusion | results section. | | | | | Lumbar radicular | | | | | | pain | | + +--------+ + + + documented in this encounter Results XR Lumbar Spine 4 + Vw (06/04/2015 [...] of the lumbar spine. Posterior | MEDICAL EXCELSIOR | | pedicle screw and nayan and [...] | + + + + + | [facility] | [address] | [place] | [phone] | | [facility] | | [address] | | | - IMAGING | | | | + + + + + documented in this encounter Visit Diagnoses + + | Diagnosis | + + | Spondylolisthesis, lumbar region | + + | S/P lumbar fusion Arthrodesis status | + + | Lumbar radicular pain Thoracic or lumbosacral neuritis or radiculitis, unspecified | + + documented in this encounter"
--- OUTSIDE RECORDS SUMMARY | ~2020-05-21 | XMS | Encounter Summary ---
Demographics + + + | Address | [address] | | | [place] [address] | + + + | Home Phone [...] Author + + + | Author | [facility] | | | and [place] | + + + | Organization | [facility] | | | [...] [place] | | | | | [address] | | + + + + + | Pratibha Hester | ECON | Unknown | + | + + + + + | Demian Powell | ECON | Unknown | + | + + + + + Care Team Providers + +------+ + | Care University Intern Name | Role | Phone | + [...] [address] | | | | | [place], [place] | [place] [address] | | | | | [address] | [phone] | | | | | [phone] | | | +--------+--------+ + + + [...]
--- OUTSIDE RECORDS SUMMARY | ~2020-05-21 | XMS | Encounter Summary ---
Demographics + + + | Address | [address] | | | [place] [address] | + + + | Home Phone [...] Author + + + | Author | [facility] | | | and [place] | + + + | Organization | [facility] | | [...] [place] | | | | | [address] | | + + + + + | Pratibha Hester | ECON | Unknown | + | + + + + + | Demian Powell | ECON | Unknown | + | + + + + + Care Team Providers + +------+ + | Care Strap Machine Operator Automatic Name | Role | Phone | + [...] pain | [address] | [facility] | | | | | Cervical | [place], [place] | [place], [place] | | | | | radicular | [address] | [address] Phone: | | | | | pain | Phone: | [phone] | | | | | | [phone] | Fax: | | | | | | Fax: | [phone] | | | | | | [phone] | | +--------+ + + + + + Reason for Visit + + + | Reason | Comments | + + + | Follow-up | Back pain | + + + Encounter Details +--------+---------+ + + + | Date | Type | Department | Care Team | Description | +--------+---------+ + + + | 06/04/ | Office | [facility] | Sascha Mir, | Spondylolisthesis, | | 2014 | Visit | NEUROSURGERY [address] | DO [address] | lumbar region | | | | [address] | [address] [place], [place] | (Primary Dx); S/P | | | | [place] | [address] | lumbar fusion; | | | | [address] | | Lumbar radicular | | | | [phone] | | pain; Cervical | | | [...] m the original. Sascha Mir DO [address] [facility], [address] [place], [place] [address] FAX: NEUROSURGERY FOLLOW-UP CHIEF COMPLAINT: Chief Complaint [...] patient is not pleased with her formerly [facility] ent. PAST MEDICAL HISTORY: Past Medical History [...] Fusion; Surgeon: Sascha Mir, DO; L ocation: [facility] OR CURRENT MEDICATIONS: Current Outpatient Prescriptions [...] Diagnosis Date Morbid obesity (HCC) Diabetes mellitus ([facility]) Multiple allergies Chronic back pain Gastric reflux Anemia Asthma Peptic ulcer Pelvic inflammatory disease Spondylolisthesis of lumbar region Pars defect of lumbar spine Trochanteric bursitis Anemia Anxiety Asthma Heart attack ([facility]) 2009 Migraine Ulcer of the [...] [address] | [place] | [phone] | | [facility] | | [address] | | | - IMAGING | | | | + + + + + XR Cervical Spine 4 or 5 Vws (06/04/2015 12:52 PM PDT) + + | Specimen | + + | | + + + + + | Narrative | Performed At | + + + | CERVICAL SPINE: 06/04/2015 12:51 PM [facility] H[facility]ORY: [facility]erv[facility] | | radiculopathy COMPARISON: MRI cervical spine 04/03/2015 | [facility] | | FINDINGS: Upright AP, lateral and lateral flexion-extension views of [facility] | | the cervical spine. Spine is [...] [address] | [place] | [phone] | | [facility] | | [address] | | | - IMAGING | | [...]
--- OUTSIDE RECORDS SUMMARY | ~2020-05-21 | XMS | Encounter Summary ---
Demographics + + + | Address | [address] | | | [place] [address] | + + + | Home Phone [...] + + + | Author | [facility] | + + + | Organization | [facility] | + + + | Address | Unknown | + + + | Phone | Unavailable | + + + Support + + +---------+ + | Name | Relationship | Address | Phone | + + +---------+ + | Alisia Nina | ECON | Unknown | | + + +---------+ + Care Team Providers + +------+ + | Care Radiology Assistant Name | Role | Phone | [...] | 2019 | on | Center at [facility] [address] | | | | | | [address] [facility] | | | | | | for Health and | | | | | | Healing, [address] | | | | | | [place], [place] | | | | | | [address] | | | | | | [phone] | | | +--------+ + + + [...]
--- OUTSIDE RECORDS SUMMARY | ~2020-05-21 | XMS | Encounter Summary ---
Demographics + + + | Address | [address] | | | [place] [address] | + + + | Home Phone [...] Author + + + | Author | [facility] | + + + | Organization | [facility] | + + + | Address | Unknown | + + + | Phone | Unavailable | + + + Support + + +---------+ + | Name | Relationship | Address | Phone | + + +---------+ + | Alisia Nina | ECON | Unknown | | + + +---------+ + Care Team Providers + +------+ + | Care Geospatial Extractor Analysis Name | Role | Phone | + +------+ + | Gracie Lewis PA-C | PCP | | + +------+ + Encounter Details +--------+ + + + + | Date | Type | Department | Care Team | Description | +--------+ + + + + | 05/03/ | Documentati | [facility] | Clinic, Surgery | | | 2019 | on | Center at [facility] [address] | | | | | | [address] [facility] | | | | | | for Health and | | | | | | Healing, [address] | | | | | | [place], [place] | | | | | | [address] | | | | | | [phone] | | | +--------+ + + + [...]
--- OUTSIDE RECORDS SUMMARY | ~2020-05-21 | XMS | Encounter Summary ---
Demographics + + + | Address | [address] | | | [place] [address] | + + + | Home Phone [...] [place] | | | | | [address] | | + + + + + | Pratibha Hester | ECON | Unknown | + | + + + + + | Demian Powell | ECON | Unknown | + | + + + + + Care Team Providers + +------+ + | Care Lay Out Machine Operator Name | Role | Phone | + +------+ + | Gracie Lewis PA-C | PCP | | + +------+ + Reason for Visit + +--------+ + | Reason | Onset | Comments | | | Date | | + +--------+ + | Medication Refill | 02/25/ | | | | 2014 | | + +--------+ + Encounter Details +--------+ + + + + | Date | Type | Department | Care Team | Description | +--------+ + + + + | 02/25/ | Telephone | [facility] [place] | Sascha Mir, | Medication Refill | | 2014 | | NEUROSURGERY [address] | DO [address] | | | | | [address] | [address] [place], [place] | | | | | [place] | [address] | | | | | [address] | | | | | | [phone] | | | +--------+ + + + [...] encounter Miscellaneous Notes Telephone Encounter - Lenka Mann, Master of Arts - 03/03/2015 11:47 AM PDTReturne d patients call. [facility] to return call. Lily Mann ele phone Encounter - Madiha Schilling - 03/03/2015 11:16 AM PDTLavobeatriz is having a hard time get ting her RX filled in at [facility], please advise. elephone Encounter - Elina Noonan Cert MA - 02/26/2015 2:57 PM PDTI called and LVM for [place] requesting a call back. Her Rx's for Diazepam and Oxycodone were placed in the mail to her this afternoon. Rx's fo r Zofran and Methocarbamol have been sent to [facility] in [place], [place]. ELINA NOONAN elephone Encounte r - Sascha Mir DO - 02/26/2015 12:57 PM PDTI'm sorry that she still isn't feeling good . I normally have people take one type of muscle relaxer this far out, but I'll fill both si nce she's still taking them. It's unusual to need anti-nausea medication this far out too. I 'll see her at the next visit later this month and we'll talk about her symptoms and then hernadez about the MRI. Thanks. elephone Russello Elina Carrasco Cert MA - 02/26/2015 11:41 AM PDTLavon returned my call. She request s refills of the following medications. Methocarbamol 750mg 1 PO at night; Diazepam 5mg 1 PO every 6 hours; Oxycodone 10/325mg 1 PO every 6 hours; Zofran 4mg 1 PO every 6 hours. Demian states she still has low back pain. The pain is described as a dull aching type pain . She states her left leg gets numb really easy while sleeping, as she does sleep on her le ft side. She states that Dr. Mir told her that if her left leg pain/numbness did not imp rove that he would want her to have a new MRI done. She says she was told this before she l eft the hospital. She would like these medications mailed to her address on file once appro isac. She is S/P L5-S1 Fusion on 12/12/14. She is scheduled to come back on 03/07/15. Please advise. ELINA NOONAN elephone Elina Lerner Cert MA - 02/26/2015 8:24 AM PDTLVM x2 for further information. Request ed a call back. ELINA NOONAN elephone Elina Lerner Cert MA - 02/25/2015 3:22 PM PDTI left a VM for [place]. I cannot process this request without asking a few questions first. I asked for a return call. ELINA NOONAN eleSepideh Sullivan - 02/25/2015 11:07 AM PDTPatient called requesting a refill of her metho carbamol (ROBAXIN) 750 mg tablet, diazepam (VALIUM) 5 mg tablet, oxyCODONE-acetaminophen (PE RCOCET) 10-325 mg per tablet, and ondansetron (ZOFRAN ODT) 4 mg disintegrating tablet. [facility] signed by Sepideh Mckay at 02/25/2015 11 :10 AM PDTdocumented in this encounter Plan of Treatment Not on filedocumented as of this encounter Visit Diagnoses + + | Diagnosis | + + | Nausea - Primary Nausea alone | + + documented in this encounter"
--- OUTSIDE RECORDS SUMMARY | ~2020-05-21 | XMS | Encounter Summary ---
Demographics + + + | Address | [address] | | | [place] [address] | + + + | Home Phone | | + + + | Preferred Language | Unknown | + + + | Marital Status | Single | + + + | Mu-Ism Affiliation | 1041 | + + + [...] [place] | | | | | [address] | | + + + + + | Pratibha Hester | ECON | Unknown | + | + + + + + | Demian Powell | ECON | Unknown | + | + + + + + Care Team Providers + +------+ + | Care Aeroplane Pilot Name | Role | Phone | + +------+ + | Quentin Manriquez PA-C | MARCK | | + +------+ + Reason for Visit +--------+ + | Reason | Comments | +--------+ + | Other | Pre op | +--------+ + Encounter Details +--------+---------+ + + + | Date | Type | Department | Care Team | Description | +--------+---------+ + + + | 12/05/ | Office | [facility] | Amol Triplett, | Degenerative disc | | 2014 | Visit | NEUR[address]URGERY [address] | PA-C [address] | disease, lumbar L4-5 | | | | [address] | [address] [place] | (Primary Dx); Facet | | | | [place], [place] | [place] [address] | arthropathy, | | | | [address] | [phone] | lumbosacral; | | | | [phone] | | Foraminal stenosis | | | | | | of lumbosacral | | | | | | region; | | | | | | Spondylolisthesis of | | | | | | lumbar region | | | | | | L5-S1; Radiculopathy | | | | | | of lumbar region | | | | | | L5-S1; Pars defect | | | | | | of lumbar spine | | | | | | L5-S1 | +--------+---------+ + + + Social History [...] + + + | Blood Pressure | 100/64 | 12/05/2014 2:40 PM | | | | | PDT | | + + + + + | Pulse | 102 | 12/05/2014 2:40 PM | | | | | PDT | | + + + + + | Temperature | - | - | | + + + + + | Respiratory Rate | 16 | 12/05/2014 2:40 PM | | | | | PDT | | + + + + + | Oxygen Saturation | - | - | | + + + + + | Inhaled Oxygen | - | - | | | Concentration | | | | + + + + + | Weight | 116.1 kg (256 lb) | 12/05/2014 2:40 PM | | | | | PDT | | + + + + + | Height | 167.6 cm (5' 6") | 12/05/2014 2:40 PM | | | | | PDT | | + + + + + | Body Mass Index | 41.32 | 12/05/2014 2:40 PM | | | | | PDT | | + + + + + documented in this encounter Progress Notes Amol Triplett PA - 12/05/2014 3:12 PM PDTFormatting of this note might be different f rom the original. ANNETTE Gutierrez [address] [facility], [address] [place], [place] [id number] FAX: NEUROSURGERY HISTORY AND PHYSICAL EXAMINATION CHIEF COMPLAINT: Chief Complaint Patient presents with Other Pre op HISTORY OF PRESENT ILLNESS: Demian presents to clinic today for a preoperative examination. She is scheduled for a L5-S1 TLIF. The patient is a 44 y.o. female with the complaint of back pain that began 10 years ago. The symptoms began insidiously, but is worse over the st two years. Since that time the patient [...] or character of her symptoms since her las t visit. She denies any shortness of breath or chest pain. She denies any fever or chills. She has no open sores on her body and has not had any antibiotics recently. The PCP has see n her and they have cleared her for surgery. [...] Medication Sig Dispense Refill [facility]; 1-2 puffs every 3-4 hours as needed ASCORBIC ACID PO Take 1 tablet by mouth Daily. aspirin 81 mg EC tablet Take 81 mg by mouth Daily. Cholecalciferol (VITAMIN D PO) Take 1 tablet by mouth Daily. HYDROcodone-acetaminophen (NORCO) 10-325 mg per tablet Take 1 tablet by mouth every 6 h ours as needed for Pain. ibuprofen (ADVIL,MOTRIN) 600 MG tablet Take 600 mg by mouth every 8 hours as needed for Pain. lisinopril (PRINIVIL, ZESTRIL) 10 mg tablet [...] Diagnosis Date Morbid obesity (HCC) Diabetes mellitus ([facility]) Multiple allergies Chronic back pain Gastric reflux [...] to presenting for surgery. ELECTRONICALLY SIGNED BY: ANNETTE Gutierrez, 12/05/2014 15:12 documented in this encounter Plan of Treatment Not on filedocumented as of this encounter Visit Diagnoses + + | Diagnosis | + + | Degenerative disc disease, lumbar L4-5 - Primary Degeneration of lumbar or | | lumbosacral intervertebral disc | + + | Facet arthropathy, lumbosacral Lumbosacral spondylosis without myelopathy | + + | Foraminal stenosis of lumbosacral region Spinal stenosis, lumbar region, without | | neurogenic claudication | + + | Spondylolisthesis of lumbar region L5-S1 Acquired spondylolisthesis | + + | Radiculopathy of lumbar region L5-S1 Thoracic or lumbosacral neuritis or radiculitis, | | unspecified | + + | Pars defect of lumbar spine L5-S1 Acquired spondylolisthesis | + + documented in this encounter
--- OUTSIDE RECORDS SUMMARY | ~2020-05-21 | XMS | Encounter Summary ---
Demographics + + + | Address | [address] | | | [place] [address] | + + + | Home Phone [...] [place] | | | | | [address] | | + + + + + | Pratibha Hester | ECON | Unknown | + | + + + + + | Demian Powell | ECON | Unknown | + | + + + + + Care Team Providers + +------+ + | Care Object Oriented Programmer Name | Role | Phone | + +------+ + | Quentin Manriquez PA-C | MARCK | | + +------+ + Reason for Visit +--------+--------+ + | Reason | Onset | Comments | | | Date | | +--------+--------+ + | Other | 06/23/ | | | | 2014 | | +--------+--------+ + Encounter Details +--------+ + + + + | Date | Type | Department | Care Team | Description | +--------+ + + + + | 06/23/ | Telephone | [facility] | Sascha Mir, | Other | | 2014 | | NEUROSURGERY [address] | DO [address] | | | | | [address] | [address] [place], [place] | | | | | [place] | [id number] | | | | | [address] | | | | | | [phone] | | | +--------+ + + + [...] Encounter - Elina Fairbanks Cert MA - 06/24/2015 2:56 PM PSTDr. Manriquez's nurse clarence alled me back today and I explained to her the type of messages [place] has been sending out o ffice. She does report there being a history of her acting in this manner and she will disc uss with DR. Manriquez, having a referral sent to their behavioral health department. She did ask that if she continues to contact us to let them know so that they can really push kimberly haile and get her some help. ELINA FAIRBANKS elephone EncounElina Hearn Cert MA - 06/24/2015 1:41 PM [address]LVM X3 for Dr. Manriquez's nurse abel solis a call back ELINA FAIRBANKS elephone Encounte Elina Moyer Cert MA - 06/24/2015 8:17 AM PSTVM left for patient healthcare recruiter for Dr. Manriquez today requesting a call back ELINA FAIRBANKS elephone EncounElina Hearn Cert MA - 06/23/2015 11:25 AM PSTVM left for Dr. Manriquez's nurse boby brown a call back to discuss recent emails from the patient. ELINA FAIRBANKS documented in this encounter Plan of Treatment Not on filedocumented as of this encounter Visit Diagnoses Not on filedocumented in this encounter"
--- OUTSIDE RECORDS SUMMARY | ~2020-05-21 | XMS | Encounter Summary ---
Demographics + + + | Address | [address] | | | [place] [address] | + + + | Home Phone [...] Team Providers + +------+ + | Care Outreach Liaison Name | Role | Phone | [...] in right | [address] | [address] [facility] | | | | | ear | [facility], | | | | | Dizziness | [address] | [address]th Floor | | | | | Procedures | [place], [place] | [place], [place] | | | | | [address] [place] | [address] | [address] | | | | | BENIGN | Phone: | Phone: | | | | | DISEASE WO | [phone] | [phone] | | | | | [address] CT | Fax: | Fax: | | | | | SCAN,ORBIT/S | [phone] | [phone] | | | | | CORY/POST | [...] | | | media, not | | [place], [place] | | | | | specified as | | [address] | | | | | acute or | | Phone: | | | | | chronic | | [phone] | | | | | Conductive | | Fax: | | | | | hearing | | [phone] | | | | | loss, | [...] | | | | [address] | [place], [place] | Dizziness | | | | Physician's | [address] | | | | | Pavilion, 2nd floor | [phone] | | | | | [place], [place] | | | | | | [address] | | | | | | [phone] | | | +--------+---------+ + + + [...] coordinating of care. Windy Rodriguez MD PhD [facility] Otology, Neurotology & Skull Base Surgery documented [...] | | + +---------+ + + | [facility] DEPARTMENT OF | | | | | [...]
--- OUTSIDE RECORDS SUMMARY | ~2020-05-21 | XMS | Encounter Summary ---
Demographics + + + | Address | [address] | | | [place] [address] | + + + | Home Phone | | + + + | Preferred Language | Unknown | + + + | Marital Status | Single | + + + | Buddhism Affiliation | 1041 | + + + | Race | White | + + + | Ethnic Group | Not or | + + + Author + + + | Author | [facility] | | | and [place] | + + + | Organization | [facility] | | | [...] [place] | | | | | [address] | | + + + + + | Pratibha Hester | ECON | Unknown | + | + + + + + | Demian Powell | ECON | Unknown | + | + + + + + Care Team Providers + +------+ + | Care Institutional Research Director Name | Role | Phone | + +------+ + | Quentin Manriquez PA-C | MARCK | | + +------+ + Encounter Details +--------+---------+ + + + | Date | Type | Department | Care Team | Description | +--------+---------+ + + + | 01/15/ | Office | [facility] | Amol Triplett, | Spondylolisthesis of | | 2015 | Visit | NEUROSURGERY [address] | PA-C [address] | lumbar region L5-S1 | | | | [address] | [address] [place] | (Primary Dx); S/P | | | | [place], [place] | [place] [address] | lumbar fusion | | | | [address] | [phone] | | | | | [phone] | | | +--------+---------+ + + + [...] + + + | Blood Pressure | 110/63 | 01/15/2015 10:17 AM | | | | | PDT | | + + + + + | Pulse | 82 | 01/15/2015 10:17 AM | | | | | PDT | | + + + + + | Temperature | - | - | | + + + + + | Respiratory Rate | 14 | 01/15/2015 10:17 AM | | | | | PDT | | + + + + + | Oxygen Saturation | - | - | | + + + + + | Inhaled Oxygen | - | - | | | Concentration | | | | + + + + + | Weight | 117.5 kg (259 lb) | 01/15/2015 10:17 AM | | | | | PDT | | + + + + + | Height | 167.6 cm (5' 6") | 01/15/2015 10:17 AM | | | | | PDT | | + + + + + | Body Mass Index | 41.8 | 01/15/2015 10:17 AM | | | | | PDT | | + + + + + documented in this encounter Patient Instructions Patient Instructions Amol Triplett PA - 01/15/2015 10:57 AM PDTIn 2 weeks you may now slowly increase your lifting up to 15 pounds as tolerated. Until he sees Dr. Mir at your 12 week visit, I would recommend holding off on physical therapy. Lastly, you will see Dr. Mir in approximately 2 months where a new x-ray will be taken at that time. In the meant holly, you can also begin to wean out of your brace in 2 weeks as instructed below. SPINE BRACE WEANING PROTOCOL (5 WEEKS) Below are instructions for weaning your brace. You can move through the weeks slower if yo u feel the need to do so, but the overall goal is to get you out of the brace slowly over th e next several weeks. WEEK 1 If you have been using your brace for activities like sleeping, showering, do not use the b race for these activities any longer but continue using it for everything else. WEEK 2 Stop wearing your brace for sitting and short distance walking. You should use the brace f or anything more involved. WEEK 3 Stop using the brace for medium distance walking. You can bend and twist your back but sti ll proceed slowly with these activities. WEEK 4 Stop using the brace for everything but the most difficult tasks. You should now be able to go on long walks and lift more weight as directed. Add more bending and twisting as tolera elle. WEEK 5 Stop using the brace for daily use. I would encourage you to use the brace in the future f or activities that you know might aggravate your back or cause pain. You should still work to strengthen your back and use good technique when tile picker things and bending. documented in this encounter Progress Notes Amol Triplett PA - 01/15/2015 10:33 AM PDTFormatting of this note might be different f rom the original. ANNETTE Gutierrez [address] [facility], [address] [place] [address] FAX: NEUROSURGERY SURGICAL FOLLOW-UP CHIEF COMPLAINT: No chief complaint on file. HISTORY OF PRESENT ILLNESS: The patient is a 45 y.o. female that had a lumbar fusion for p rimarily back pain with mild associated leg pain around 4 weeks ago. She returns and overal l is doing fairly well. The patient complains of ongoing tingling and numbness in left arm and left leg. These are symptoms that were worse after surgery than they were before surger y. However, since surgery they have been slowly improving. The patient has been walking as much as possible. She is still taking pain medications at this point. The patient has had no issues with her surgical site. CURRENT MEDICATIONS: Current Outpatient Prescriptions Medication Sig Dispense Refill ALBUTEROL SULFATE IN [facility]; 1-2 puffs every 3-4 hours as needed ASCORBIC ACID PO Take 1 tablet by mouth Daily. Cholecalciferol (VITAMIN D PO) Take 1 tablet by mouth Daily. cyclobenzaprine (FLEXERIL) 10 mg tablet Take 1 tablet by mouth every 6 hours as needed for Muscle spasms. 120 tablet 0 diazepam (VALIUM) 5 mg tablet Take 1 tablet by mouth every 6 hours as needed (muscle sp asm). 120 tablet 0 docusate sodium (COLACE) 100 MG capsule Take 100 mg by mouth Twice daily as needed for Constipation. 100 capsule 3 gabapentin (NEURONTIN) 300 mg capsule Take 1 capsule by mouth 3 times daily. May increa se to 600mg TID after 3 days. 90 capsule 11 lisinopril (PRINIVIL, ZESTRIL) 10 mg tablet Take 2.5 mg by mouth Daily. Loratadine (CLARITIN) 10 MG CAPS Take by mouth Daily. montelukast (SINGULAIR) 10 mg tablet Take 10 mg by mouth nightly. ondansetron (ZOFRAN ODT) 4 mg disintegrating tablet Take 4 mg by mouth every 8 hours as needed for Nausea. oxyCODONE-acetaminophen (PERCOCET) 10-325 mg per tablet Take [...] not drink alcohol or use illicit drugs. INTERIM PHYSICAL EXAMINATION: Blood pressure 110/63, pulse 82, resp. rate 14, height 1.676 m (5' 6"), weight 117.482 kg ( 259 lb), not currently . Body mass index is 41.82 kg/(m^2). GENERAL: Demian Nina is in no acute distress with unlabored respirations. SPINE: The patient s incisions are healing well without drainage, significant erythema, o r discharge EXTREMITIES: No lower extremity edema. NEUROLOGICAL EXAMINATION: MENTAL STATUS: The patient is awake, alert, and oriented. She follows simple and complex commands MOTOR EXAM: Motor strength is 5/5. This is unchanged from the preoperative exam. SENSORY EXAM: The sensory examination diminished on the left leg in the L4-L5 and S1 fusion . Prior to surgery patient had S1 decreased sensation. RADIOGRAPHIC REVIEW: The patient s postoperative x-rays show stable instrumentation and alignment and were rev iewed with the patient today. There have been no interval changes since the immediate posto perative films. Complete fusion has not yet occurred, but this is normal and would not be e xpected at this time. ASSESSMENT: Encounter Diagnoses Name Primary? Spondylolisthesis of lumbar region L5-S1 Yes S/P lumbar fusion Past Medical History Diagnosis Date Morbid obesity [...] vomiting) PLAN: Overall, the patient is doing fairly well. Patient has a rather flat affect and is surpris ingly benign about surgery and its effect on her back and left leg. She seems to be somewha t unimpressed with results thus far. However, at the same time, does not have significant c omplaints other than left leg dysesthesias. Patient did state that prior to surgery Dr. Du pate had mentioned that a second surgery would be necessary to remove the cyst in her back. However, beyond this, patient had no further specificity. I have reviewed Dr. Mir's note s in the office for surgery as well as her MRI and did not appreciate any further surgical t argets. Patient will meet with Dr. Mir for 12 weeks postop and if more surgery is necessary will discuss with her at that time. However, I doubt further surgery is indicated at this time. I increased the patient s activities slowly now allowing 15 pound lifting and also will b egin the process of brace weaning. I would like the patient to advance slowly with this pro cess and discussed this at length during today's visit. I would also like the patient to co ntinue with postoperative rehabilitation and to advance with therapy as tolerated. We discussed that we can provide pain medications for up to two additional months. We disc ussed the need to continue tapering pain medication. If they need longer term pain medicati on, they should begin working on either pain management or with the primary care provider. I am hoping to see improvement over the coming weeks to months and plan to continue to foll ow this patient. The patient will follow-up in clinic in around 8 weeks for re-evaluation. ELECTRONICALLY SIGNED BY: ANNETTE Gutierrez, 01/15/2015 10:54 documented in this encounter Plan of Treatment [...] priors. FINDINGS: There is stable hardware | [facility] | | for posterior fusion from L5 through S1 with interbody hardware at [facility] | | L5-S1. Extensive spondylosis is [...] | + + + + + | [facility] | [address] | [place] | [phone] | | [facility] | | [address] | | | - IMAGING | | | | + + + + + documented in this encounter Visit Diagnoses + + | Diagnosis | + + | Spondylolisthesis of lumbar region L5-S1 - Primary Acquired spondylolisthesis | + + | S/P lumbar fusion Arthrodesis status | + + documented in this encounter
--- OUTSIDE RECORDS SUMMARY | ~2020-05-21 | XMS | Encounter Summary ---
Demographics + + + | Address | [address] | | | [place] [address] | + + + | Home Phone | | + + + | Preferred Language | Unknown | + + + | Marital Status | Single | + + + | Druze Affiliation | CAT | + + + [...] Providers + +------+ + | Care Research Programmer Name | Role | Phone | [...] | | Review | | | | Tammy Smith [address] | | | | | | [address] | | | | | | [place], | | | | | | [address] floor [place], | | | | | | [place] [address] | | | | | | [phone] | | | +--------+ + + + [...] this encounter Miscellaneous Notes Telephone Encounter - Rommel Pina Jr., MD - 10/19/2018 3:12 PM PDT AFTER MEDICAL REVIEW Is this a complex procedure? No To be scheduled: - Colonoscopy - EGD (Upper Endoscopy); 20 minute . When to be scheduled: To be scheduled with: Routine 1st available Any Provider Resources: None Location: [facility] Type of Sedation: Anesthesia; Reason: Increased tolerance of pain meds. Type of PMC appointment: Phone Preparation: Jeffrey Plus - None Other Comments: Patient with obesity and chronic pain, EGD and colonoscopy requested for ev aluation. elephone Zack Durand - 10/19/2018 2:44 PM PDTFormatting of this note might be different fro m the original. [place] [id number] REFERRAL FOR REVIEW: Reviewing Provider: Rommel Pina MD []Internal Referral [x] External Referral [] Color Images Requested Referring Diagnosis/Comments: [] emergent []urgent [x]routine []Consultation []Colonoscopy []Colonoscopy w/ EMR []Flexible Sigmoidoscopy [x]EGD (Upper Endoscopy) []Ileoscopy []Pouchoscopy []Endoscopy of Montaño Pouch [] Sm Bowel Enteroscopy [] Double Balloon Enteroscopy []Capsule Endoscopy: []Small Bowel []ESO []EUS []ERCP []24HR ph Monitor [] ON PPI (will be done OFF PPI unless checked) []48HR ph Karley tor [] ON PPI (will be done OFF PPI unless checked) []Esophageal Manometry []Anorectal Manometry []Smart Pill []PEG Tube Placement []PEG Tube REPLACEMENT []Other: Electronic Data: Last 1 Encounter BMI Readings: Date BMI 04/01/2014 40.37 kg/m2 Patient Active Problem List Diagnosis ETD (eustachian tube dysfunction) OME (otitis media with effusion) Conductive hearing loss in right ear Dizziness Nausea Current Outpatient Prescriptions Medication Sig lisinopril 10 [...] No current facility-administered medications for this visit. Allergies Allergen Reactions Procainamide Hcl Anaphylaxis Allergic to anesthetics Dilaudid [Hydromorphone (Bulk)] Pruritus Morphine Pruritus Past Medical History: Diagnosis Date Diabetes mellitus (HCC) No past surgical history on file. No results found for: WBC, HB, HCT, PLT, MCV, RDW, INRPT, FERRITIN, B12, FOLATE, IRON, RETI CCOUNT, NA, K, CL, BICARB, BUN, CR, GLU, CA, AST, ALT, AP, TBILI, TP, ALB, DIRBILI documented in this encounte r Plan of Treatment Not on filedocumented as of this encounter Visit Diagnoses Not on filedocumented in this encounter"
--- OUTSIDE RECORDS SUMMARY | ~2020-05-21 | XMS | Encounter Summary ---
Demographics + + + | Address | [address] | | | [place] [address] | + + + | Home Phone | | + + + | Preferred Language | Unknown | + + + | Marital Status | Single | + + + | Methodist Affiliation | 1041 | + + + | Race | White | + + + | Ethnic Group | Not or | + + + Author + + + | Author | [facility] | | | and [place] | + + + | Organization | [facility] | | | [...] [place] | | | | | [address] | | + + + + + | Pratibha Hester | ECON | Unknown | + | + + + + + | Demian Powell | ECON | Unknown | + | + + + + + Care Team Providers + +------+ + | Care Mind Reader Name | Role | Phone | + [...] + + | 06/20/ | Refill | [facility] | Char Duque | Medication Refill | | 2019 | | PLASTIC SURGERY AND | B, KILN [address] | | | | | DERMATOLOGY [address] | | | | | [place] | [place] | | | | | [place] | [id number] | | | | | [address] | | | | | | [phone] | | | +--------+--------+ + + + [...]
--- OUTSIDE RECORDS SUMMARY | ~2020-05-21 | XMS | Encounter Summary ---
Demographics + + + | Address | [address] | | | [place] [address] | + + + | Home Phone [...] [place] | | | | | [address] | | + + + + + | Pratibha Hester | ECON | Unknown | + | + + + + + | Demian Powell | ECON | Unknown | + | + + + + + Care Team Providers + +------+ + | Care Antenna Machine Operator Name | Role | Phone | + +------+ + | Gracie Lewis PA-C | PCP | | + +------+ + Reason for Visit +--------+--------+ + | Reason | Onset | Comments | | | Date | | +--------+--------+ + | Other | 07/23/ | | | | 2014 | | +--------+--------+ + Encounter Details +--------+ + + + + | Date | Type | Department | Care Team | Description | +--------+ + + + + | 07/23/ | Telephone | [facility] | Roger Triplett | Other | | 2014 | | PHYSIATRY [address] | TMD [address] | | | | | [address] | [address] [place] | | | | | [place] | [address] | | | | | [address] | | | | | | [phone] | | | +--------+ + + + [...] this encounter Miscellaneous Notes Telephone Encounter - Yoselin Hirsch CMA - 07/23/2015 1:33 PM PSTReturned patients clary ne call. Informed her that unfortunately I do no know what conversation she is referring to. She states it was one of the last things that was discussed when we were looking at her olga ging. Once again I reiterated that I have no idea what she is referring to and unfortunately I am not much help. I called and discussed this with Dr. Triplett as well to see if he c ould recall any conversation with her in which this term may have been used. He was unable t o recall anything. elephone Encounter - Halie Leal - 07/23/2015 1:23 PM PSTDemian Nina Female, 45 y.o., 1970 patient stated that during her visit with Dr. Triplett yester day 07/22 that when nurse was reading her chart she said "something was inappropriate" and s he wanted to know what it said. P M PSTdocumented in this encounter Plan of Treatment Not on filedocumented as of this encounter Visit Diagnoses Not on filedocumented in this encounter
--- OUTSIDE RECORDS SUMMARY | ~2020-05-21 | XMS | Encounter Summary ---
Demographics + + + | Address | [address] | | | [place] [address] | + + + | Home Phone [...] Team Providers + +------+ + | Care Foam Charger Name | Role | Phone | + [...] Pre-operative | | 2020 | cheduled | [facility] at | | evaluation | | | | [facility] | | | | | | [address] | | | | | | [facility] | | | | | | and Healing, | | | | | | [address] | | | | | | [place], [place] | | | | | | [address] | | | | | | [phone] | | | +--------+ + + + [...] the Notes and Trans Encounter tab in [employer] documented in this encounter Plan of Treatment Not on filedocumented as of this encounter Visit Diagnoses + + | Diagnosis | + + | Pre-operative clearance - Primary Preoperative examination, unspecified | + + documented in this encounter"
--- OUTSIDE RECORDS SUMMARY | ~2020-05-21 | XMS | Encounter Summary ---
Demographics + + + | Address | [address] [facility] | | | [place] [address] | + + + | Home Phone [...] Author | [facility] | | | and [place] | + + + | Organization | [facility] | | [...] [place] | | | | | [address] | | + + + + + | Pratibha Hester | ECON | Unknown | + | + + + + + | Demian Powell | ECON | Unknown | + | + + + + + Care Team Providers + +------+ + | Care Bar Porter Name | Role | Phone | + [...] + + | 08/13/ | Telephone | [facility] | Sascha iMr, | Other | | 2015 | | NEUROSURGERY [address] | DO [address] | | | | | [address] | [address] [place], [place] | | | | | [place] | [id number] | | | | | [address] | | | | | | [phone] | | | +--------+ + + + [...] 2:06 PM PSTPatie nt left message via [employer]: "Had surgery back on 12/12/14 and I am experiencing issue s with my toes again." docu mented in this encounter Plan of Treatment Not on filedocumented as of this encounter Visit Diagnoses Not on filedocumented in this encounter
--- OUTSIDE RECORDS SUMMARY | ~2020-05-21 | XMS | Encounter Summary ---
Demographics + + + | Address | [address] | | | [place] [address] | + + + | Home Phone [...] [place] | | | | | [address] | | + + + + + | Pratibha Hester | ECON | Unknown | + | + + + + + | Demian Powell | ECON | Unknown | + | + + + + + Care Team Providers + +------+ + | Care Nursery Worker Name | Role | Phone | [...] 2017 | | GASTROENTEROLOGY | [address], [place] | | | | | [address] [place] | [address] [place] | | | | | [address] [place], [place] | [address] | | | | | [address] | | | | | | [phone] | | | +--------+ + + + [...] it and concurs with the suggestion to [facility] . documented in this enc ounter Plan of Treatment Not on filedocumented as of this encounter Visit Diagnoses Not on filedocumented in this encounter"
--- OUTSIDE RECORDS SUMMARY | ~2020-05-21 | XMS | Encounter Summary ---
Demographics + + + | Address | [address] | | | [place] [address] | + + + | Home Phone [...] Providers + +------+ + | Care Animal Skinner Name | Role | Phone | + +------+ + | Gracie Lewis PA-C | PCP | | + +------+ + Reason for Visit + +--------+ + | Reason | Onset | Comments | | | Date | | + +--------+ + | Phone communication | 01/01/ | pre-procedure call | | | 2019 | | + +--------+ + | Phone communication | 01/03/ | confirmation call | | | 2020 | | + +--------+ + AUTH/CERT +--------+--------+ + + + + | Status | Reason | Specialty | Diagnoses / | Referred By | Referred To | | | | | Procedures | Contact | Contact | +--------+--------+ + + + + | | | | Procedures | | | | | | | SD | | | | | | | COLONOSCOPY, | | | | | | | FLEX, | | | | | | | W/BIOPSY SD | | | | | | | UPPER GI | | | | | | | ENDOSCOPY,BI | | | | | | | OPSY SD | | | | | | | ANES UPR LWR | | | | | | | GI NDSC PX | | | +--------+--------+ + + + + Encounter Details +--------+ + + + + | Date | Type | Department | Care Team | Description | +--------+ + + + + | 01/08/ | Hospital | Multi-Specialty | Leydi Sandhu, | | | 2020 | Encounter | Procedural Unit | MD [address] | | | | | [facility] at [facility] [address] | [place], [place] | | | | | [address] | [address] | | | | | Mailcode: [place] | [phone] | | | | | for Health and | | | | | | Healing, [address] | | | | | | [place], [place] | | | | | | [address] | | | | | | [phone] | | | +--------+ + + + [...] documented in this encounter Discharge Instructions Instructions Santo Alonso RN - 01/09/2020Home Care Instructions after EGD (Upper Endos copy) & Colonoscopy You may resume your normal diet and medications unless told otherwise. Medications The medications you received for your procedure can cause you to be forgetful and drowsy an d will take the remainder of the day to wear off. DO NOT drink alcohol, drive, operate heavy machinery, sign legal documents, or make major d ecisions until tomorrow. Common After Effects Sore throat. You may treat it with throat lozenges and/or gargle with warm salt water. You may bruise at your IV site. If you have pain, redness, or swelling at your IV site a pply a warm compress. Mild abdominal pain, bloating, and excessive gas. This is caused by the air that was put in your colon during the procedure. These symptoms will improve as you pass gas. Activity Light activity such as walking will help you pass the air that was put into your colon. Complications Call your GI doctor if you have: Abnormal pain or any new unexplained symptoms. Bright red rectal bleeding Shortness of breath, chest or neck pain. Vomiting blood or rectal bleeding. Fever above 101.5 Redness, pain, or swelling at your IV site that is not relieved with warm compress. For any questions related to your procedure, call Tuesday- Tuesday 8:00- 4:30 Call the endoscopy department toll free ext. [phone] or . After business hours or on weekends and holidays call the Hospital Invoicing Specialist toll free [phone]- [phone] ext. [phone] and have the GI doctor remote operations producer paged. The provider who performed your procedure: Dr. Sandhu Results of your EGD: biopsies taken and sent to the lab Results of your Colonoscopy: polyps taken and sent to lab Recommended follow up Colonoscopy: Pending the pathology lab results Follow up Appointments with: your referring provider Your primary care provider or referring provider will receive copies of the procedure repor t and all the pathology reports with recommendations for treatment if needed. If noted above that biopsies were taken or polyps removed we will receive the results in ap proximately 1 week. If you have not heard from us after 2 weeks please call for your results . documented in this encounter Medications at Time of Discharge + + + +---------+ + + | Medication | Sig | Dispensed | Refills | Start | End Date | | | | | | Date | | + + + +---------+ + + | atorvastatin 20 mg | | | 0 | 05/29/20 | | | oral tablet | | | | 19 | | + + + +---------+ + + | celecoxib 200 mg | 200 mg. | | 0 | 12/12/19 | | | oral capsule | | | | 20 | | + + + +---------+ + + | cephALEXin 500 mg | 500 mg. | | 0 | 12/10/19 | | | oral capsule | | | | 20 | | + + + +---------+ + + | cholecalciferol | Take by mouth. | | 0 | | | | (Vitamin D3) | | | | | | | (VITAMIN D3) 1,000 | | | | | | | unit oral tablet | | | | | | + + + +---------+ + + | clotrimazole 1 % | | | 0 | 05/04/20 | | | vaginal cream | | | | 20 | | + + + +---------+ + + | COMBIVENT RESPIMAT | inhale 1 puff by | | 0 | 04/20/20 | | | 20-100 | mouth every 6 hours | | | 20 | | | mcg/actuation | if needed | | | | | | inhalation mist | | | | | | + + + +---------+ + + | fluticasone | Inhale 1 puff. | | 0 | | | | propion-salmeteroL | | | | | | | 250-50 mcg/dose | | | | | | | inhalation blister | | | | | | | with device | | | | | | + + + +---------+ + + | insulin glargine | by | | 0 | | | | 100 unit/mL | Intramuscular/Subcut | | | | | | subcutaneous | aneous route. | | | | | | solution | | | | | | + [...] + + + +---------+ + + | losartan 25 mg | | | 0 | 05/29/20 | | | oral tablet | | | | 19 | | + + + +---------+ + + | meclizine 25 mg | Take 25 mg by mouth. | | 0 | | | | oral tablet | | | | | | + + + +---------+ + + | metFORMIN SR 500 | 500 mg. | | 0 | 12/17/19 | | | mg oral tablet | | | | 20 | | | extended release 24 | | | | | | | hr | | | | | | + + + +---------+ + + | methocarbamol 500 | | | 0 | 04/23/20 | | | mg oral tablet | | | | 19 | | + + + +---------+ + [...] + + + +---------+ + + | naproxen 250 mg | Take 250 mg by | | 0 | | | | oral tablet | mouth. | | | | | + + + +---------+ + + | omeprazole 20 mg | Take 1 capsule by | 30 | 2 | 06/27/20 | | | oral capsule,delayed | mouth once daily. | capsule | | 19 | | | release(DR/EC) | Administer 30 to 60 | | | | | | | minutes before meals | | | | | + + + +---------+ + + | ondansetron 4 mg | 4 mg as needed. | | 0 | 12/18/19 | | | oral tablet | | | | 20 | | + + + +---------+ + + | peg-electrolyte | Take 6000ml total | 8000 mL | 0 | 12/21/19 | | | [id number] -5.86 | (1.5 [...] + + + +---------+ + + | VICTOZA 2-LAUREANO 0.6 | | | 0 | 06/20/20 | | | mg/0.1 mL (18 mg/3 | | | | 19 | | | mL) subcutaneous pen | | | | | | | injector | | | | | | + + + +---------+ + + | WIXELA INHUB | inhale 1 puff by | | 0 | 11/26/19 | | | 250-50 mcg/dose | mouth twice a day | | | 20 | | | inhalation blister | | | | | | | with device | | | | | | + + + +---------+ + + documented as of this encounter Progress Notes Leydi Sandhu MD - 01/09/2020 7:48 AM PDTFormatting of this note might be different fr om the original. PRE PROCEDURE NOTE: MR# [id number] Subjective: Demian Nina is a 50 y.o. female presents today for EGD, colonoscopy. Patient History Reviewed Medications reviewed Pt NPO since midnight Allergies: Allergies as of 12/24/2019 - Fully Reviewed 04/26/2019 Allergen Reaction Noted Procainamide hcl Anaphylaxis 12/04/2014 Dilaudid [hydromorphone (bulk)] Pruritus 04/01/2014 Morphine Pruritus 04/01/2014 ROS: All others negative. Objective: Vital Signs: BP 114/85 (BP Location: Right upper arm, Patient Position: Lying on back) | T emp 36.5 C (97.7 F) (Oral) | Ht 1.626 m (5' 4") | Wt 99.8 kg (220 lb) | SpO2 96% | B IA 37.76 kg/m | BSA 2.12 m Neuro: Patient oriented X3. Mallampati Score: 2 Neck: No significant findings by visual inspection Respiratory: Breathing comfortably Cardiovascular: Regular rate and rhythm Abdomen: + bowel sounds, soft, nontender Impression History reviewed, and patient deemed appropriate for planned procedure. ASA Class: 2 Plan Proceed with EGD, colonoscopy. PARQ held and all questions addressed. Consent obtained. See procedure note 01/09/2020 documented in this e ncounter Miscellaneous Notes Plan of Care - Jeffrey Bhatt RN - 01/08/2020 9:23 AM PDTCOVID-19 PHONE screen result: negative Pt verbalized understanding of new visitor policy. Name and number of responsible democrat: [employer] reached at [phone] Ok to contact this person with results after procedure? Pratibha Hester (mother) (yes, or enter alternate contact) reprocedure Instruct ions - Jeffrey Bhatt RN - 01/08/2020 9:03 AM PDTI called the patient to confirm EGD/colo n procedure on 01/09/20 and screened for Covid-19: Do you have a fever (if yes, maximum temperature, route)? no Do you have a sore throat? no Do you have a cough? no Do you have shortness of breath? no When did symptoms begin? Ongoing stuffy nose from allergies started weeks ago Have you been tested for the yuongblood virus (if yes, result)? Yes- negative Do you live with someone who has tested positive or under investigation for the Youngblood Viru s?? no RN notified if yes to any of the above? n/a Mask on reminder- All patients will be asked to wear a mask and encouraged to bring their own. We are asking that all patients coming to clinic wear a mask to their appointment. W e encourage our patients to bring a mask from home so that we can ensure we have enough mask s to protect our staff. A homemade one is okay to wear. 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 No visitors are allowed in clinical areas. Your responsible democrat will drop you off and pick you up at (say appropriate location and delete remaining options) - [address] at [facility] - a staff member will greet you in the drive through d rop off on arrival. - [facility]- Enter [facility] on 9th floor of [facility] and check i n at the admitting desk. Admitting will contact the procedure unit, and our staff will come to get you. Your responsible democrat will pick you up at the front doors of [facility] when you are ready for discharge. 2. After check in, but prior to your procedure, a nurse will call your responsible democrat to verify the plan and review expected time line for procedure/recovery. 3. During the procedure, do not have you family/ride wait in any of the parking garages, wh ere there is no cellular medical reception. Tell responsible democrat to check their phone, and please wait in a place with good medical reception. 4. After your procedure, your procedure doctor will contact you by phone on the number timmy ng used to reach your responsible democrat for fruit picker machine operator unless you request a different contact f or this. What is the name and mobile number of the person driving you home? [employer] Is this the same person you would like the MD to discuss findings with you from your proced ure (if no, list alternate number)? Alternate Contact- Patient's mother Pratibha Morristt: lan of Care - Jeffrey Molina RN - 01/07/2020 12:54 PM PDTSee COVID-19 results from external source in media ta b: reprocedure Rachelle blanton - Eloisa Desir - 01/04/2020 12:07 PM PDTHave attempted to call patient on all number s and got no answer. I left a message reminding them of their appointment with us on 10/25 with an arrival time of 0700. I also reminded them that they are to get their COVID jose t done on Tuesday01/07/20. If they have any questions they can call us back at [phone] ctronically signed by Eloisa Desir at 01/04/2020 12:11 PM PDTPreprocedure Instructions - Olivia devorahans Beverley - 2020 2:53 PM PDT I left voicemail with Demian Nina, including details about date and time of procedu re, need for responsible democrat, current no visitor policy, importance of reviewing and follo wing the preparation instructions carefully, and call if any questions about their procedure and preparation. "Hi this santa Lowery from [facility] Endoscopy. I'm calling to check in with you about the proc edure we have you scheduled on 01/09/20, checking in at 0715 We want to make sure you have r eceived the instructions (and prescription if applicable) for your procedure. Please review these instructions carefully now, as there are very important steps for you to follow prior to coming in. I also want to make you aware of changes to our visitor policy and requireme nt for COVID-19 testing 48 hours prior to your procedure. Call us back as soon as possible at [phone] to review these changes."Electronically signed by Beverley Clark at 2019 2:57 PM PDTPlan of Rommel Logan - 12/25/2019 1:07 PM PDTAsymptomatic COV ID-19 Test order placed and faxed to [facility]. RN Contacted [facility] ([facility] RN) who confirmed receipt of faxed order and has scheduled patient for testing on 01/07/2020. Rommel Matthews RN, BSN, CGRN 1 :07 PM PDTPlan of Rommel Logan - 12/24/2019 4:42 PM PDTPatient will have 48 ho ur pre-procedure COVID testing performed at [facility] on 01/07/2020. RN spoke with [facility] RN ([facility]) to confirm ability to perform test. Vijaya medrano requested order for test faxed to facility. [facility] verbalized that she will contact the pa tient and schedule the test upon receipt of order. Order request sent to Dr. Sandhu. Hi Dr. Sandhu, Please fax a COVID-19 test request to [facility] for: Demian Nina 1970 [id number] 01/09/2020 EGD/COLO "Asymptomatic pt needs COVID testing 2 days prior to procedure on___ at [facility]. Please fax re larissa OTEROP to ___. " Fax order to [phone] Thank you, Jay Matthews RN, BSN, CGRN lan of Care - Rommel Matthews - 12/24/2019 2:22 PM PDTERX for golytely plus had been sent to [place] on 12/21/19. RN contacted [facility] [address] [place] to [facility] receipt of ERX. Pharmacist confirmed receipt of ERX. RN spoke with patient via telephone re: COVID testing. RN offered testing at [facility] in [facility]. Patient stated that she would come into [place] for COVID t qamar. RN reviewed [facility] [place] on 01/07/2020 between 1200 and 1800. Patient confirmed receipt of procedure instructions via email. RN encouraged juani nt to review instructions and contact [phone] with any questions. Patient verbalized un derstanding and is amenable to care. documented in this encounter Plan of Treatment [...] + + documented in this encounter Results SURGICAL PATHOLOGY (01/09/2020 8:44 AM PDT) [...] diagnostic abnormalityB. | | OF | Yoko K | | | Stomach, biopsy: | | [...] PathologistPathology, | | | | | | [facility] | | | | | | [...] number | | | | | | [id number].A. Duodenum, | | | | | | [...] | + + + + + | [facility] DEPARTMENT OF | [address] | [place] [address] | | | PATHOLOGY | [address] | | | + + + + + | [facility] LABORATORY | [address] | [place] [address] | | | SERVICES, [place] [facility] | | | | | HEALTH [...] (H) | 70 - 99 mg/dL | WHITNEY - KIRSTEN, | | | GLUCOSE, | | | [...] | + + + + + | [facility] | [address] | [place] [address] | | | OF CARE TESTS | | | | + + + + + COLONOSCOPY (01/09/2020 7:17 AM PDT) + + | Specimen | + + | | + + + + + | Narrative | Performed At | + + + | MRN: | [facility] | | [id number] Date: 01/09/2020Patient Name: Demian Hooker #: | ENDOSCOPY | | [id number] of : 1970CSN: [id number] Type: | | | AmbulatoryRoom: Endo 6Procedure: | | | ColonoscopyIndications: Abdominal painProviders: | | | LEYDI SANDHU MD (Doctor), SANTO ALONSO RN | | | (Nurse), ELOISA DESIR (Group Dynamics Instructor)Referring MD: | | | ANNETTE JORGENSEN-CRequesting Provider: [...] the procedure. The Olympus | | | [id number] Colonoscope #[id number] was introduced | | | through the [...] evaluated | | | using the BBPS ([place] Bowel | | | Preparation Scale) with [...] Performed At | + + + | BENNY: | [facility] | | [id number] Date: 01/09/2020Patient Name: Demian Hooker #: | ENDOSCOPY | | [id number] of : 1970CSN: [id number] Type: | | | AmbulatoryRoom: Endo 6Procedure: Upper GI | | | endoscopyIndications: Abdominal painProviders: | | | LEYDI SANDHU MD (Doctor), SANTO ALONSO RN | | | (Nurse), ELOISA DESIR (Group Dynamics Instructor)Referring MD: | | | ANNETTE JORGENSEN-CRequesting Provider: [...] | | | The Olympus [id number] Gastroscope #[id number] was | | | introduced through the [...] + + | Performing | Address | City/State[facility] | Phone Number | | Organization | [...] in this encounter Administered Medications + +--------+ +--------+------+------+ | Medication Order | MAR | Action | Dose | Rate | Site | | | Action | Date | | | | + +--------+ +--------+------+------+ | acetaminophen (TYLENOL) tablet | Given | 01/09/20 | 650 mg | | | | 650 mg 650 mg, oral, | | 20 9:23 | | | | | POSTPROCEDURE PRN, 1 dose, | | AM PDT | | | | | Starting Tue01/09/20 at 0836, | | | | | | | Until Tue01/09/20 at 0923, mild or | | | | | | | greater pain while in Phase 1 | | | | | | + +--------+ +--------+------+------+ + +---+ | | | + +---+ | fentaNYL (SUBLIMAZE) injection | | | 25-50 mcg 25-50 mcg, | | | intravenous, POSTPROCEDURE PRN, 8 | | | doses, Starting Tue01/09/20 at | | | 0836, Until Tue01/09/20 at 1603, | | | severe pain while in Phase I | | | Recovery | | + +---+ | | | + +---+ | labetaloL (TRANDATE) IV | | | injection 5 mg 5 mg, | | | intravenous, POSTPROCEDURE PRN, 5 | | | doses, Starting Tue01/09/20 at | | | 0838, Until Tue01/09/20 at 1603, | | | hypertension | | + +---+ | | | + +---+ | lactated ringers (LR) bolus 500 | | | mL 500 mL, intravenous, | | | POSTPROCEDURE PRN, 1 dose, | | | Starting Tue01/09/20 at 0838, | | | Until Tue01/09/20 at 1603, | | | nausea/vomiting due to | | | dehydration | | + +---+ | | | + +---+ | lactated ringers (LR) bolus 500 | | | mL 500 mL, intravenous, | | | POSTPROCEDURE PRN, 1 dose, | | | Starting 01/09/20 at 0838, | | | Until 01/09/20 at 1603, | | | systolic blood pressure less than | | | 90 mmHg. 1st line | | + +---+ | | | + +---+ | lidocaine viscous (XYLOCAINE | | | VISCOUS) 2 % mucosal solution 15 | | | mL 15 mL, oral, INTRAPROCEDURE | | | PRN, Starting 01/09/20 at 0709, | | | Until 01/09/20 at 1603, sore | | | oropharynx | | + +---+ | | | + +---+ | naloxone (NARCAN) injection | | | intravenous, POSTPROCEDURE PRN, | | | Starting 01/09/20 at 0835, | | | Until 01/09/20 at 1603, | | | hypopnea | | + +---+ | | | + +---+ | ondansetron (ZOFRAN) injection | | | 4 mg 4 mg, intravenous, | | | POSTPROCEDURE PRN, 1 dose, | | | Starting Tue01/09/20 at 0838, | | | Until Tue01/09/20 at 1603, | | | nausea/vomiting (greater than 6 | | | hours post-operatively) | | + +---+ | | | + +---+ | oxyCODONE (immediate release) | | | (ROXICODONE) tablet 5 mg 5 mg, | | | oral, POSTPROCEDURE PRN, 2 doses, | | | Starting Tue01/09/20 at 0836, | | | Until Tue01/09/20 at 1603, | | | moderate pain while in Phase 1 | | | recovery. | | + +---+ | | | + +---+ | PHENYLEPHrine 100 mcg/mL IV | | | syringe 50 mcg, intravenous, | | | POSTPROCEDURE PRN, 4 doses, | | | Starting Tue01/09/20 at 0838, | | | Until Tue01/09/20 at 1603, | | | systolic blood pressure less than | | | 90 mmHg refractory to IV fluids. | | + +---+ | | | + +---+ | promethazine (PHENERGAN) | | | injection 12.5 mg 12.5 mg, | | | intravenous, POSTPROCEDURE PRN, 2 | | | doses, Starting Tue01/09/20 at | | | 0838, Until Tue01/09/20 at 1603, | | | nausea/vomiting, 1st line | | + +---+ | | | + +---+ | simethicone (MYLICON) | | | suspension 3.333 mg 3.333 mg | | | (rounded from 3.3333 mg = 1 | | | drop), oral, INTRAPROCEDURE PRN, | | | Starting Tue01/09/20 at 0709, | | | Until Tue01/09/20 at 1603, gas | | | bubbles in endoscope | | + +---+ | | | + +---+ | sodium chloride (NS) 0.9 % | | | infusion 10 mL/hr, intravenous, | | | CONTINUOUS, Starting Tue01/09/20 | | | at 0715, Until Tue01/09/20 at 1603 | | + +---+ | | | + +---+ documented in this encounter
--- OUTSIDE RECORDS SUMMARY | ~2020-05-21 | XMS | Encounter Summary ---
Demographics + + + | Address | [address] | | | [place] [address] | + + + | Home Phone [...] Author + + + | Author | [facility] | | | and [place] | + + + | Organization | [facility] | | [...] [place] | | | | | [address] | | + + + + + | Pratibha Hester | ECON | Unknown | + | + + + + + | Demian Powell | ECON | Unknown | + | + + + + + Care Team Providers + +------+ + | Care Life Support Technician Name | Role | Phone [...] + | 06/17/ | Telephone | [facility] | Sascha Mir, | Appointment | | 2014 | | NEUROSURGERY [address] | DO [address] | | | | | [address] | [address] [place], [place] | | | | | [place] | [phone] | | | | | [address] | | | | | | [phone] | | | +--------+ + + + [...] Whiting - 06/18/2015 2:26 PM PSTLavon returned Messianamraia's call. She will call us back after [...]
--- OUTSIDE RECORDS SUMMARY | ~2020-05-21 | XMS | Encounter Summary ---
Demographics + + + | Address | [address] | | | [place] [address] | + + + | Home Phone | | + + + | Preferred Language | Unknown | + + + | Marital Status | Single | + + + | Orthodox Affiliation | 1041 | + + + | Race | White | + + + | Ethnic Group | Not or | + + + Author + + + | Author | [facility] | | | and [place] | + + + | Organization | [facility] | | | [...] [place] | | | | | [address] | | + + + + + | Pratibha Hester | ECON | Unknown | + | + + + + + | Demian Powell | ECON | Unknown | + | + + + + + Care Team Providers + +------+ + | Care Content Development Specialist Name | Role | Phone | + +------+ + | Quentin Manriquez PA-C | MARCK | | + +------+ + Reason for Visit +--------+--------+ + | Reason | Onset | Comments | | | Date | | +--------+--------+ + | Other | 03/04/ | medication refill questions | | | 2014 | | +--------+--------+ + Encounter Details +--------+ + + + + | Date | Type | Department | Care Team | Description | +--------+ + + + + | 03/04/ | Telephone | [facility] | Sascha Mir, | Other (medication | | 2014 | | NEUROSURGERY [address] | DO [address] | refill questions) | | | | [address] | [address] [place], [place] | | | | | [place] | [phone] | | | | | [address] | | | | | | [phone] | | | +--------+ + + + [...] - Lenka Mann Master of Arts - 03/05/2015 11:38 AM PDTSpnelson Gallegos at [facility] and the patient origionally went to a retail pharmacy for the Zofran 4mg Rxand it was limited by insurance for only 10 tablets.. [facility] pharmacy was inform ed and they dispensed the full amount of #30 that we origionally requested. Lily Mann ele phone Encounter - Lenka Mann Master of Arts - 03/04/2015 10:39 AM PDTPatient call ed today and she picked up her Zofran 4mg. at [facility] and they gave her only 10 tablets. We wrote Rx for #30. I called [facility] pharmacy, and left a VM for a return call to find out wha t is going on. Lily Mann docu mented in this encounter Plan of Treatment Not on filedocumented as of this encounter Visit Diagnoses Not on filedocumented in this encounter"
--- OUTSIDE RECORDS SUMMARY | ~2020-05-21 | XMS | Clinical Summary ---
Demographics + + + | Address | [address] [facility] | | | [place] [address] | + + + | Home Phone [...] + + + | Author | [facility] | | | and [place] | + + + | Organization | [facility] | | [...] [place] | | | | | [address] | | + + + + + | Pratibha Hester | ECON | Unknown | + | + + + + + | Demian Powell | ECON | Unknown | + | + + + + + Care Team Providers + +------+ + | Care Webbing Tacker Name | Role | Phone | + [...] Essential hypertension | | + + + Immunizations + [...] | + + + + | INFLUENZA, [id number], | 08/05/2009 | | | UNSPECIFIED | [...] | + + + + + | Sleep apnea | Mother | Pratibha | | | [...] + + + | Seizures | | mercedez | | + + + + + | Stroke | | mercedez | | + + + + + | Mental illness | Sister | noahrialvarez | | | | | cody | | + + + + + | Asthma | Son | Uche | | + + + + + [...] + + + + | Sister | pierre | Alive | age 40 no issues [...] | + + + + + | Hepatitis C | | | | | Screening | 1 | | | + + + + + | Med Mgmt: HBA1C | | | | | | 1 | | | + + + + + | Medication | | | | | Management | 1 | | | + + + + + | Vaccine: | | 07/07/20 | | | Pneumococcal 19-64 | 7 | 10 | | | (1 of 1 - PPSV23) | | | | + [...] | + + + + + | Med Mgmt: Cr | | 12/06/19 | | | | 6 | 15 | | + + + + + | Med Mgmt: K | | 12/06/19 | | | | 6 | 15 | | + + + + + | Med Mgmt: eGFR | | 12/06/19 | | | | 6 | 15 | | + + + + + | Breast Cancer | | | | | Screening | 6 | | | + + + + + | Vaccine: Influenza | | 06/13/20 | | | (#1) | 0 | 19, | | [...] + + + | Vaccine: | | 01/13/20 | | | Dtap/Tdap/Td (2 - | 9 | 19 | | | Td) | | | [...] | | | OSTEOTECH - | | 02/26/ | [id number] | | [id number]: Qty: 1 | | | OSTT | | 2020 | | | on 12/12/2014 by Clarke, | | | | | | /[id number] | | Sascha Armendariz DO at [facility] | | | | | | 2-039 | | [facility] | | | | | | /38-30 | | | | | | | | 12 | + +------+--------+ +--------+--------+--------+ | Graft Infuse Bone Kit Xxs - | | | SOFAMOR | | / | [id number] | | [id number]: Qty: 1 on | | | DANEK - DIV | | 2016 | 0 / | | 12/12/2014 by Sascha Mir | | | [employer] | | | /[id number] | | DO Kala at [facility] | | | - SFDK | | | [id number] | | [facility] | | | | | | | + +------+--------+ +--------+--------+--------+ | SpacerImplanted: Qty: 1 on | | Manager Track | [employer] - | | 10/04/ | [id number] | | 12/12/2014 by Sascha Mir | | ior: | MEDT | | 2022 | 9 / | | DO Kala at [facility] | | Spine | | | | /[id number] | | [facility] | | Lumbar | | | | 520 | + +------+--------+ +--------+--------+--------+ | Screw Amanda Solera 6.5x50mm - | | Manager Track | SOFAMOR | | | [id number] | | [id number]: Qty: 1 on | | ior: | DANEK - DIV | | | [id number] | | 12/12/2014 by Sascha Mir | | Spine | [employer] | | | / / | | DO Kala at [facility] | | Lumbar | - SFDK | | | | | [facility] | | | | | | | + +------+--------+ +--------+--------+--------+ | Screw Amanda Solera 6.5x45mm - | | Manager Track | SOFAMOR | | | [id number] | | [id number]: Qty: 1 on | | ior: | DANEK - DIV | | | [id number] | | 12/12/2014 by Sascha Mir | | Spine | [employer] | | | / / | | DO Kala at [facility] | | Lumbar | - SFDK | | | | | [facility] | | | | | | | + +------+--------+ +--------+--------+--------+ | Screw Mas G5 Slra 7.5x40 Cn - | | Manager Track | SOFAMOR | | | [id number] | | [id number]: Qty: 1 | | ior: | DANEK - DIV | | | [id number] | | on 12/12/2014 by Clarke, | | Spine | [employer] | | | / / | | Sascha Armendariz DO at [facility] | | Lumbar | - SFDK | | | | | [facility] | | | | | | | + +------+--------+ +--------+--------+--------+ | Screw Amanda 8.5x40mm - | | Manager Track | [employer] - | | | [id number] | | [id number]: Qty: 1 on | | ior: | MEDT | | | [id number] | | 12/12/2014 by Sascha Mir | | Spine | | | | / / | | DO Kala at [facility] | | Lumbar | | | | | | [facility] | | | | | | | + +------+--------+ +--------+--------+--------+ | Set Scrw Ns G5 Brk Off Ti | | Manager Track | SOFAMOR | | | [id number] | | 4.75 - [id number]: | | ior: | DANEK - DIV | | | 0 / / | | Qty: 4 on 12/12/2014 by | | Spine | [employer] | | | | | Sascha Mir DO at [facility] | | Lumbar | - [facility] | | | | | [facility] | | | | | | | | CENTER | | | | | | | + +------+--------+ +--------+--------+--------+ | Imp Spn Francis Ti Sext Ti 5.5x45 | | Manager Track | FIDEOR | | | [id number] | | - [id number]: Qty: 2 | | ior: | DANEK - DIV | | | 5045 / | | on 12/12/2014 by Clarke, | | Spine | [employer] | | | / | | Sascha Armendariz DO at [facility] | | Lumbar | - [facility]K | | | | | [facility] | | | | | | | [...] | Cannulated Screw Cd Horizon | | Manager Track | [employer] - | | | [id number] | | SoleraExplanted: Qty: 1 on | | ior: | MEDT | | | [id number] | | 12/12/2014 at [facility] | | Spine | | | | / / | | [facility] | | Lumbar | | | | [...] | [employer] | MODA | [id number] | 12/10/19 | [phone] | | Medica | | MEDICAID HMO | HEALTH | | 20-Pre | 1 | | id | | | MDCD | | sent | | | | | | HMO [place] | | | | | | + +--------+ +--------+ +---------+--------+ | [facility] | IHS | [id number] | 05/17/ | | | Indemn | | SERVICE | YELLOW | | 2011-P | | | ity | | | HAWK | | resent | | | | + +--------+ +--------+ +---------+--------+ | [employer] | MODA | [id number] | | [phone] | | Medica | | MEDICAID HMO | HEALTH | | 019-Pr | 1 | | id | | | MDCD | | esent | | | | | | [place]MO [place] | | | | | | + +--------+ +--------+ +---------+--------+ | HEALTH | IHS | [id number] | 03/08/20 | | | Indemn | [...] | | al/Fam | | 1970 | [phone] | [place], [place] | | | neil | | | 1 (Home) | [address] | + +--------+ +--------+ + + | Demian Nina | Person | Self | [birth year] | [address] | | | al/Fam | | 1970 | [phone] | [place], [place] | | | neil | | | 1 (Home) | [address] | + +--------+ +--------+ + + Advance Directives + + + + + | Type | Date Recorded | Patient | Explanation | | | | Physical Therapy Instructor | | + + + + + | Power of | | | | | Programs Manager | | | | + + + [...]
--- OUTSIDE RECORDS SUMMARY | ~2020-05-21 | XMS | Encounter Summary ---
Demographics + + + | Address | [address] | | | [place] [address] | + + + | Home Phone [...] Author + + + | Author | [facility] | + + + | Organization | [facility] | + + + | Address | Unknown | + + + | Phone | Unavailable | + + + Support + + +---------+ + | Name | Relationship | Address | Phone | + + +---------+ + | Alisia Nina | ECON | Unknown | | + + +---------+ + Care Team Providers + +------+ + | Care Pricing Strategist Name | Role | Phone | + +------+ + | Quentin Manriquez | PCP | | + +------+ + Encounter Details +--------+ + + + + | Date | Type | Department | Care Team | Description | +--------+ + + + + | 02/16/ | Abstract | [facility] Health | Clinic, | | | 2017 | | [place] [facility] [address] | Gastroenterology | | | | | [address] [place] | | | | | | for Health and | | | | | | Healing, Building [address] | | | | | | [place], [place] | | | | | | [address] | | | | | | [phone] | | | +--------+ + + + [...]
--- OUTSIDE RECORDS SUMMARY | ~2020-05-21 | XMS | Encounter Summary ---
Demographics + + + | Address | [address] | | | [place] [address] | + + + | Home Phone [...] [place] | | | | | [address] | | + + + + + | Pratibha Hester | ECON | Unknown | + | + + + + + | Demian Powell | ECON | Unknown | + | + + + + + Care Team Providers + +------+ + | Care Volleyball Coach Name | Role | Phone | + +------+ + | Quentin Manriquez PA-C | MARCK | | + +------+ + Encounter Details +--------+ + + + + | Date | Type | Department | Care Team | Description | +--------+ + + + + | 06/04/ | Hospital | [facility] | Sascha Mir, | Cervical radicular | | 2015 | Encounter | MED CTR XRAY [address] | DO [address] | pain | | | | [place] | [address] | | | | | [place] [address] | [id number] | | | | | [phone] | | | +--------+ + + + [...] COMPARISON: MRI cervical spine 04/03/2015 | [facility] | | FINDINGS: Upright AP, lateral and lateral flexion-extension views of [facility] | | the cervical spine. [...] + + | Performing | Address | City/State/[facility] | Phone Number | | Organization | | | | + + + + + | [facility] | [address] [place] [address] | [place] | [phone] | | [facility] | | [address] | | | - IMAGING | | | | + + + + + documented in this encounter Visit Diagnoses + + | Diagnosis | + + | Cervical radicular pain Brachial neuritis or radiculitis nos | + + documented in this encounter"
--- OUTSIDE RECORDS SUMMARY | ~2020-05-21 | XMS | Encounter Summary ---
Demographics + + + | Address | [address] | | | [place] [address] | + + + | Home Phone [...] | + + +---------+ + | Alisia Nnia | ECON | Unknown | | + + +---------+ + Care Team Providers + +------+ + | Care Analysis Consultant Name | Role | Phone | [...] | | | | Gastroesopha | AGACNP [address] | | | | | | geal reflux | [address] | | | | | | disease, | [place], | | | | | | esophagitis | [place] | | | | | | presence not | [address] | | | | | | specified | Phone: | | | | | | Severe | [phone] | | | | | | obesity | Fax: | | | | | | ([facility]) Type | [phone] | | | | | | 2 [...] | | | | | | | ([facility]) Hx of | | | | | [...] | Pain | Diagnoses | Berna, | Area Coordinator Psych | | | | Management | | Jen Gross, | [address] | | | | | Gastroesopha | AGACNP [address] | | | | | geal reflux | [address] | [place] for | | | | | disease, | [place], | Health and | | | | | esophagitis | [place] | Healing, | | | | | presence not | [address] | Building | | | | | specified | Phone: | [address] Floor | | | | | Severe | | [place], [place] | | | | | obesity | Fax: | [address] | | | | | (HCC) Type | [phone] | Phone: | | | | | 2 diabetes | | [phone] | | | | | mellitus | | Fax: | | | | | without | | [phone] | | | | | complication | [...] Satinder Capellan MD | | | with [employer]ER | | (severe) | PA-C | [address] | | | | | obesity due | [address] | Ave | | | | | to excess | [place] | [place], [place] | | | | | calories | Health | [address] | | | | | Obesity, | Center [address] | Phone: | | | | | unspecified | | [phone] | | | | | | [place] | Fax: | | | | | | Way [address] | [phone] | | | | | | [address] | | | | | | | [place], | | | | | | | [place] [address] | | | | | | | Phone: | | | | | | | [phone] | | | | | | | Fax: | | | | | | | [phone] | | +--------+ + + + + + Encounter Details +--------+---------+ + + + | Date | Type | Department | Care Team | Description | +--------+---------+ + + + | 06/27/ | Office | Digestive Health | Jen Coronel, | Severe obesity (HCC) | | 2019 | Visit | Center at [facility] [address] | AGACNP [address] | (Primary Dx); | | | | [address] | Ave [place], [place] | Gastroesophageal | | | | for Health and | [address] | reflux disease, | | | | Healing, Building [address] | [phone] | esophagitis presence | | | | [place], [place] | | not specified; Type | | | | [address] | | 2 diabetes mellitus | | | | | | without | | | | | | complication, with | | | | | | long-term current | | | | | | 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 | | | | | | ([facility]); Hx of | | | | | [...] Pre-op Psychological Evaluation: Your referral is at [facility], the Pain Management Office w ill call you in the next week to schedule. + Hemoglobin A1C will have to be below 8 prior to surgery. + Weight Management classes: 2 classes are required in addition to your private appointme nt with the middle school librarian. These classes will be scheduled apporoximately 1 month apart to allow time for you to put the teaching into action. Please call [phone] to schedule these classes after you have [...] and lifestyle. The patient has seen our [facility] middle school librarian and physical therapy colleagues to discuss exercise [...] a healthy weight. 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 Discard remaining half jug. Indications: Bowel [...] file Gets together: Not on file Attends congregational service: Not on file Active member of [...] of lower extremity edema, . Denies CHF, [place], ischemic heart disease, DV T/PE, or pulmonary [...] ordered -ok to do this locally in [place] -Is a stomach sleeper, may not tolerate [...] Pre-op Psychological Evaluation: Your referral is at [facility], the Pain Management Office w ill call you in the next week to schedule. + Hemoglobin A1C will have to be below 8 prior to surgery. + Weight Management classes: 2 classes are required in addition to your private appointme nt with the middle school librarian. These classes will be scheduled apporoximately 1 month apart to allow time for you to put the teaching into action. Please call [phone] to schedule these classes after you have [...] and lifestyle. The patient has seen our [facility] middle school librarian and physical therapy colleagues to discuss exercise [...] a healthy weight. + Sign up for ASYM III so that we can communicate easily back [...] other providers does not guarantee that the [facility] Bariatric Surger y program will deem you [...] Coronel, MSN, AG-ACNP Bariatric Surgery Nurse Practitioner [facility] | [address] | [place], [place] | [address] | documented in th is encounter Plan [...] | | | | 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 ([facility]) | | | | | | Hx [...] | | | | 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 ([facility]) | | | | | | Hx [...] | | | | | Severe obesity ([facility]) | | | | | | Type 2 diabetes | | | | | | mellitus without | | | | | | complication, with | | | | | | long-term current | | | | | | 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 ([facility]) | | | | | | Hx [...] | | | | | Severe obesity ([facility]) | | | | | | Type 2 diabetes | | | | | | mellitus without | | | | | | complication, with | | | | | | long-term current | | | | | | 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 ([facility]) | | | | | | Hx [...] | | | | 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 ([facility]) | | | | | | Hx [...] | | | | 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 ([facility]) | | | | | | Hx [...] | | | | 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 ([facility]) | | | | | | Hx [...] | | | | 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 ([facility]) | | | | | | Hx [...] | | | | | Severe obesity ([facility]) | | | | | | Type [...]
--- OUTSIDE RECORDS SUMMARY | ~2020-05-21 | XMS | Encounter Summary ---
Demographics + + + | Address | [address] | | | [place] [address] | + + + | Home Phone [...] + + + | Author | [facility] | | | and [place] | + + + | Organization | [facility] | | | and [...] Team Providers + +------+ + | Care Loader Technician Name | Role | Phone | [...] [address] | MD Denice [address] | cancellation due to | | | | [address] | [address] [place] | insurance ) | | | | [place], [place] | [address] | | | | | [address] | [phone] | | | | | [phone] | | | +--------+ + + + [...] to 10/27. Natalie elephone Encounter - [place] - 10/11/2012 9:19 AM PSTPatient was to [...]
--- OUTSIDE RECORDS SUMMARY | ~2020-05-21 | XMS | Encounter Summary ---
Demographics + + + | Address | [address] | | | [place] [address] | + + + | Home Phone | | + + + | Preferred Language | Unknown | + + + | Marital Status | Single | + + + | Presybeterian Affiliation | 1041 | + + + [...] [place] | | | | | [address] | | + + + + + | Pratibha Hester | ECON | Unknown | + | + + + + + | Demian Powell | ECON | Unknown | + | + + + + + Care Team Providers + +------+ + | Care Pharmacognosist Name | Role | Phone | + +------+ + PCP | Unavailable | + +------+ + Encounter Details +--------+ + + + + | Date | Type | Department | Care Team | Description | +--------+ + + + + | 05/31/ | Hospital | [facility] | | | | 1999 | Encounter | MED CTR MP INTRA OP | | | | | | [address] | | | | | | [place] | | | | | | [address] | | | | | | [phone] | | | +--------+ + + + [...]
--- OUTSIDE RECORDS SUMMARY | ~2020-05-21 | XMS | Encounter Summary ---
Demographics + + + | Address | [address] | | | [place] [address] | + + + | Home Phone [...] [place] | | | | | [address] | | + + + + + | Pratibha Hester | ECON | Unknown | + | + + + + + | Demian Powell | ECON | Unknown | + | + + + + + Care Team Providers + +------+ + | Care Towel Cabinet Repairer Name | Role | Phone | + +------+ + | Derick Mclaughlin PA-C | PCP | | + +------+ + Reason for Visit +--------+--------+ + | Reason | Onset | Comments | | | Date | | +--------+--------+ + | Other | 08/23/ | Schedule MRI | | | 2012 | | +--------+--------+ + Encounter Details +--------+ + + + + | Date | Type | Department | Care Team | Description | +--------+ + + + + | 08/23/ | Telephone | [facility] | Denilson Jorge | Other (Schedule MRI | | 2012 | | [address] | FMD [address] | ) | | | | [facility] [address] | [address] [address] | | | | | [place] | [address] | | | | | [address] | [phone] | | | | | [phone] | | | +--------+ + + + [...] Notes Telephone Encounter - Natalie Noonan - 09/04/2012 11:41 AM PSTDemian would like her Rx for At liza to be called into [facility] in [place]. Natalie Noonan elephone Enco unter - Natalie Noonan - 08/24/2012 11:37 AM PSTlmom for Demian asking for pharmacy informatio n. elephone Encounter - Denilson Pate MD - 08/23/2012 5:47 PM PSTThat's fine, thank you. elephone Encounter - Natalie Noonan - 0 08/23/2012 9:29 AM PSTI called Demian this morning to reschedule the MRI of her lumbar spine that we ordered a few months back, but she had to stop mid way through due to being claustro phobic. This has been rescheduled at [facility] on 09/08. Is it okay to call in Ativan 1MG #1 to h er pharmacy to take prior to her MRI? Please advise. Natalie documented in this enc ounter Plan of Treatment Not on filedocumented as of this encounter Visit Diagnoses Not on filedocumented in this encounter"
--- OUTSIDE RECORDS SUMMARY | ~2020-05-21 | XMS | Encounter Summary ---
Demographics + + + | Address | [address] | | | [place] [address] | + + + | Home Phone [...] [place] | | | | | [address] | | + + + + + | Pratibha Hester | ECON | Unknown | + | + + + + + | Demian Powell | ECON | Unknown | + | + + + + + Care Team Providers + +------+ + | Care Superintendent Water And Sewer Systems Name | Role | Phone | + +------+ + PCP | Unavailable | + +------+ + Encounter Details +--------+ + + + + | Date | Type | Department | Care Team | Description | +--------+ + + + + | 05/23/ | Hospital | [facility] | | | | 1999 | Encounter | MED CTR LABORATORY | | | | | | [address] | | | | | | [place] | | | | | | [address] | | | | | | [phone] | | | +--------+ + + + [...]
--- OUTSIDE RECORDS SUMMARY | ~2020-05-21 | XMS | Encounter Summary ---
Demographics + + + | Address | [address] | | | [place] [address] | + + + | Home Phone [...] | Author | [facility] | | | and [place] | + + + | Organization | [facility] | | | [...] [place] | | | | | [address] | | + + + + + | Pratbiha Hester | ECON | Unknown | + | + + + + + | Demian Powell | ECON | Unknown | + | + + + + + Care Team Providers + +------+ + | Care Ratings Analyst Name | Role | Phone | [...] + + | 01/06/ | Telephone | [facility] | Sascha Mir, | Other | | 2014 | | NEUROSURGERY [address] | DO [address] | | | | | [address] | [address] [place], [place] | | | | | [place] | [id number] | | | | | [address] | | | | | | [phone] | | | +--------+ + + + [...] She states she was sent home from [place] and was discharg ed with two of [...]
--- OUTSIDE RECORDS SUMMARY | ~2020-05-21 | XMS | Encounter Summary ---
Demographics + + + | Address | [address] | | | [place] [address] | + + + | Home Phone [...] Team Providers + +------+ + | Care Binder Layer Name | Role | Phone | + +------+ + | Gracie Lewis PA-C | PCP | | + +------+ + Encounter Details +--------+ + + + + | Date | Type | Department | Care Team | Description | +--------+ + + + + | 12/24/ | Auto Technician Mechanic | Dig[facility]ive Health | Jeanna Sandhu, | Suspected 2018 novel | | 2019 | | Center at [facility] [address] | MD [address] | coronavirus | | | | [address] | [place], [place] | infection (Primary | | | | for Health and | [address] | Dx) | | | | Healing, [address] | [phone] | | | | | [place], [place] | | | | | | [address] | | | | | | [phone] | | | +--------+ + + + [...]
--- OUTSIDE RECORDS SUMMARY | ~2020-05-21 | XMS | Encounter Summary ---
Demographics + + + | Address | [address] | | | [place] [address] | + + + | Home Phone [...] + + + | Author | [facility] | | | and [place] | + + + | Organization | [facility] | | | [...] [place] | | | | | [address] | | + + + + + | Pratibha Hester | ECON | Unknown | + | + + + + + | Demian Powell | ECON | Unknown | + | + + + + + Care Team Providers + +------+ + | Care Cnc Wood Lathe Operator Name | Role | Phone | + +------+ + PCP | Unavailable | + +------+ + Encounter Details +--------+ + + + + | Date | Type | Department | Care Team | Description | +--------+ + + + + | 12/31/ | Hospital | [facility] | | | | 2009 | Encounter | MED CTR XRAY [address] | | | | | | [place] | | | | | | [place] [address] | | | | | | [phone] | | | +--------+ + + + [...]
--- OUTSIDE RECORDS SUMMARY | ~2020-05-21 | XMS | Encounter Summary ---
Demographics + + + | Address | [address] | | | [place] [address] | + + + | Home Phone | | + + + | Preferred Language | Unknown | + + + | Marital Status | Single | + + + | Shinto Affiliation | CAT | + + + [...] Team Providers + +------+ + | Care Theater Technician Name | Role | Phone | [...] | | | media, not | | [place], [place] | | | | | specified as | | [address] | | | | | acute or | | Phone: | | | | | chronic | | [phone] | | | | | Conductive | | Fax: | | | | | hearing | | [phone] | | | | | loss, | [...] | | | | [address] | [place], [place] | Dx); Conductive | | | | Physician's | [phone] | hearing loss in | | | | Pavilion, 2nd floor | [phone] | right ear; Dizziness | | | | [place], [place] | | | | | | [address] | | | | | | [phone] | | | +--------+---------+ + + + [...] cholesteatoma or superior semicircular canal dehiscence. A/P: eDmian Nina has persistent right ear discomfort and episodic dizziness with un clear etiology. There is no active inflammation or infection. We would like to proceed with vestibular testing to characterize her inner ear balance system. She will follow up with me after testing. Windy Rodriguez MD PhD Cutter Machine Otology, Neurotology & Skull Base Surgery documented in this encounter Plan of Treatment Not on filedocumented as of this encounter Procedures + +--------+ + + + | Procedure Name | Priori | Date/Time | Associated Diagnosis | Comments | | | ty | | | | + +--------+ + + + | AK EAR MICROSCOPY | Routin | 12/05/2014 | [...]
--- OUTSIDE RECORDS SUMMARY | ~2020-05-21 | XMS | Encounter Summary ---
Demographics + + + | Address | [address] | | | [place] [address] | + + + | Home Phone [...] [place] | | | | | [address] | | + + + + + | Pratibha Hester | ECON | Unknown | + | + + + + + | Demian Powell | ECON | Unknown | + | + + + + + Care Team Providers + +------+ + | Care Core Cleaner Name | Role | Phone | [...] | | | lumbar | [address] [place] [address] | | | | | spinal | [address] | [address] | | | | | fusion Back | [place] | AVE | | | | | pain, | [address] | [place], [place] | | | | | unspecified | Phone: | [address] | | | | | location | [phone] | Phone: | | | | | Radiculopath | Fax: | [phone] | | | | | y, | [phone] | Fax: | | | | | unspecified | | [phone] | | | | | spinal | [...] | | | | [place] | [id number] | | | | | [address] | | | | | | [phone] | | | +--------+ + + + [...] scheduled. I did leave a message at [facility] with Sharon for Dr. Up. ELINA FAIRBANKS elephone Sascha Pearson DO - 04/03/2015 6:01 PM PDTThat will not be useful. Please order a CT myelogram of the lumbar spine instead. Thanks. elephone Enco unter - Elina Fairbanks Cert MA - 04/03/2015 2:30 PM PDTI got a call today from Dr. Annel arroyo the Radiology dept. At [facility] stating that they did an MRI without contrast for [place] today , but because of the scar [...]
--- OUTSIDE RECORDS SUMMARY | ~2020-05-21 | XMS | Encounter Summary ---
Demographics + + + | Address | [address] | | | [place] [address] | + + + | Home Phone [...] + | Author | [facility] | | | and [place] | + + + | Organization | [facility] | | | [...] [place] | | | | | [address] | | + + + + + | Pratibha Hester | ECON | Unknown | + | + + + + + | Demian Powell | ECON | Unknown | + | + + + + + Care Team Providers + +------+ + | Care Stock Transfer Clerk Name | Role | Phone | [...] [address] | [address] [place] | | | | | [place] | [id number] | | | | | [address] | | | | | | [phone] | | | +--------+ + + + [...] Aguillon RN - 12/23/2015 1:00 PM P [id number] signed by Yoko Aguillon RN at 12/23/2015 [...] Aguillon RN - 12/19/2015 12:09 PM PDTCalled [facility] and requested imagmichelle g. elephone Encounte Julien Prieto - 12/19/2015 10:59 AM PDTPatient called in to let us know that she has com pleted her xrays @ [facility] eleph one Encounter - Virgen Pena RN - 12/19/2015 9:38 AM PDTDanimonet from [facility] adiology called asking if it was okay [...] PM P DTLumbar xray order faxed via [facility] to [facility]. Reminder set. eleph one Encounter - Melida Lindquist - 12/17/2015 2:49 PM PDTPatient returned call. She would li ke to have her xrays completed at [facility]. I asked her to call us when [...]
--- OUTSIDE RECORDS SUMMARY | ~2020-05-21 | XMS | Encounter Summary ---
Demographics + + + | Address | [address] [facility] [facility] | | | [place] [address] | + + + | Home Phone [...] [place] | | | | | [address] | | + + + + + | Pratibha Hester | ECON | Unknown | + | + + + + + | Demian Powell | ECON | Unknown | + | + + + + + Care Team Providers + +------+ + | Care Clinical Appeals Reviewer Name | Role | Phone | [...] (Referral to | | 2012 | | [address] | MD Denice [address] | office-Auth #) | | | | [address] | [address] [place] [address] | | | | | [place] | [address] | | | | | [address] | [phone] | | | | | [phone] | | | +--------+ + + + [...] approved [address] Jorge #[id number] signed by Natalie Noonan at 10/03/2012 11:22 AM P STdocumented in this encounter Plan of Treatment Not on filedocumented as of this encounter Visit Diagnoses Not on filedocumented in this encounter"
--- OUTSIDE RECORDS SUMMARY | ~2020-05-21 | XMS | Encounter Summary ---
Demographics + + + | Address | [address] | | | [place] [address] | + + + | Home Phone | | + + + | Preferred Language | Unknown | + + + | Marital Status | Single | + + + | Muslim Affiliation | 1041 | + + + | Race | White | + + + | Ethnic Group | Not or | + + + Author + + + | Author | [facility] | | | and [place] | + + + | Organization | [facility] | | | [...] [place] | | | | | [address] | | + + + + + | Pratibha Hester | ECON | Unknown | + | + + + + + | Demian Powell | ECON | Unknown | + | + + + + + Care Team Providers + +------+ + | Care Automobile Appraiser Name | Role | Phone | [...] 03/31/ | Telephone | [facility] [place] | Sascha Mir, | Medication Problem | | 2014 | | NEUROSUR[address] | DO [address] | | | | | [address] | [address] [place] | | | | | [place] | [address] | | | | | [address] | | | | | | [phone] | | | +--------+ + + + [...] medrol dospa k was left on the waterfront director in our office with a note attached [...]
--- OUTSIDE RECORDS SUMMARY | ~2020-05-21 | XMS | Encounter Summary ---
Demographics + + + | Address | [address] | | | [place] [address] | + + + | Home Phone | | + + + | Preferred Language | Unknown | + + + | Marital Status | Single | + + + | Hindu Affiliation | CAT | + + + [...] Team Providers + +------+ + | Care Crew Person Name | Role | Phone | + +------+ + | Gracie Lewis PA-C | PCP | | + +------+ + Encounter Details +--------+ + + + + | Date | Type | Department | Care Team | Description | +--------+ + + + + | 03/07/ | Transcribe | [facility] | Transcribe | | | 2019 | Orders | [address] | Encounter, Provider, | | | | | [place] for | [address] | | | | | Health and Healing, | [place] [address] | | | | | [address] | | | | | | [place], [place] | | | | | | [address] | | | | | | [phone] | | | +--------+ + + + [...] + | MRN: | [facility] | | [id number] Date: 01/09/2020Patient Name: Demian Hooker #: | ENDOSCOPY | | [id number] of : 1970CSN: [id number] Type: | | | AmbulatoryRoom: Endo 6Procedure: | | | ColonoscopyIndications: Abdominal painProviders: | | | LEYDI SHOOK MD (Doctor), SANTO ALONSO, RN | | | (Nurse), DORI DESIR (Guest Associate)Referring MD: | | | ANNETTE JORGENSEN-CRequesting Provider: [...] the procedure. The Olympus | | | [id number] Colonoscope #[id number] was introduced | | | through the [...] evaluated | | | using the BBPS (Haddock Bowel | | | Preparation Scale) with [...] + | MRN: | [facility] | | [id number] Date: 01/09/2020Patient Name: Demian Hooker #: | ENDOSCOPY | | [id number] of : 1970CSN: [id number] Type: | | | AmbulatoryRoom: Endo 6Procedure: Upper GI | | | endoscopyIndications: Abdominal painProviders: | | | LEYDI SHOOK MD (Doctor), SANTO ALONSO RN | | | (Nurse), DORI DESIR (Guest Associate)Referring MD: | | | ANNETTE JORGENSEN-CRequesting Provider: [...] | | | The Olympus [id number] Gastroscope #[id number] was | | | introduced through the [...]
--- OUTSIDE RECORDS SUMMARY | ~2020-05-21 | XMS | Encounter Summary ---
Demographics + + + | Address | [address] [facility] | | | [place] [address] | + + + | Home Phone [...] [place] | | | | | [address] | | + + + + + | Pratibha Hester | ECON | Unknown | + | + + + + + | Demian Powell | ECON | Unknown | + | + + + + + Care Team Providers + +------+ + | Care Airport Sales Agent Name | Role | Phone | [...] + + | 12/18/ | Telephone | [facility] | Jasiel Loo | Follow-up | | 2020 | | SLEEP DISORDER [address] | MD Michael [address] | | | | | [address] [place] | [address] [place] | | | | | [place] [address] | [place] [address] | | | | | [phone] | [phone] | | | | | | | [...] 12/19/2019 12:55 PM [facility]TC[facility] Loo wants the patient rescheduled with GEORGE Muijca. I left a message to call us back. I will try back in a few days. Electronic ally signed by Caterina Garcia Assistant at 12/19/2019 12:57 PM PDTdocumented in this en counter Plan of Treatment Not on filedocumented as of this encounter Visit Diagnoses Not on filedocumented in this encounter"
--- OUTSIDE RECORDS SUMMARY | ~2020-05-21 | XMS | Encounter Summary ---
Demographics + + + | Address | [address] | | | [place] [address] | + + + | Home Phone [...] + + + | Author | [facility] | + + + | Organization | [facility] | + + + | Address | Unknown | + + + | Phone | Unavailable | + + + Support + + +---------+ + | Name | Relationship | Address | Phone | + + +---------+ + | Alisia Nina | ECON | Unknown | | + + +---------+ + Care Team Providers + +------+ + | Care Pipe Bender Name | Role | Phone | + [...] | [facility] [address] | MD [address] | | | | | [address] [place] | [facility] [place] | | | | | [facility] and | [address] | | | | | [facility], [address] | [phone] | | | | | [place], [place] | | | | | | [address] | | | | | | [phone] | | | +--------+ + + + [...] ouse, caregiver, medical office, etc): Linwood from [facility] Reason for call: Calling to state they can do a COVID-19 test for the pt prior to her proc on 01/07 but they need an order. Provider / Specialty: francis espinal Call back number confirmed?: yes Best call back number / ext: [phone] / noted under contact or phone tab. Caller would like a call back to discuss. Ok to leave a detailed message?: yes Fax number: [phone] documented in this encoun ter Plan of Treatment Not on filedocumented as of this encounter Visit Diagnoses Not on filedocumented in this encounter"
--- OUTSIDE RECORDS SUMMARY | ~2020-05-21 | XMS | Encounter Summary ---
Demographics + + + | Address | [address] | | | [place] [address] | + + + | Home Phone [...] [place] | | | | | [address] | | + + + + + | Pratibha Hester | ECON | Unknown | + | + + + + + | Ana Maria Powell | ECON | Unknown | + | + + + + + Care Team Providers + +------+ + | Care Handyperson Name | Role | Phone | + [...] Procedures | MD [address] | | | | | MRI Lumbar | [address] | [address] [place] | | | | | Spine wo | [place], | [place] | | | | | Contrast | [place] [address] | [address] | | | | | | Phone: | Phone: | | | | | | [phone] | | | | | | | [phone] Fax: | Fax: | | | | | | | | | | | | | [phone] | | +--------+--------+ + + + + Encounter Details +--------+ + + + + | Date | Type | Department | Care Team | Description | +--------+ + + + + | 09/08/ | Hospital | [facility] | Denilson Jorge | Back pain | | 2012 - | Encounter | MED CTR XRAY [address] | F, [address] | | | | | [place] | [address] [place] | | | 09/10/ | | [place] [address] | [address] | | | 2012 | | [phone] | | | | | | | [...] Performed At | + + + | [facility] | [facility] | | Department [address] [facility] [place] | [facility] | | [ rep [address]] [ rep [facility] | | st zip] Signed | - IMAGING | | | | | Patient Name: ANA MARIA TURCIOS Physician: | | | LAUREN. : 1970 Age: 42 Sex: F Unit #: [id number] | | | Exam Date: 09/08/12 [place] [facility] [place] | | Report #: [id number] Page: | | | %(RAD)RES..mtdd.print.filter("pg") of %(RAD) | | | RES..mtdd.print.filter("tpg") | | | | | | Accession Number: [id number] | | | UNENHANCED MRI LUMBAR SPINE, [...] Transcribed | | | Date/Time: 09/08/2012 12:56 Coreroom Foundry Laborer: | | | <<Signature on File>> | | | Jayden Wyatt | | | MD Rush09/09/12 4075 <Electronically signed by Jayden Beverly MD> | | | Jayden Beverly MD 09/08/12 1234 Coreroom Foundry Laborer: | | | Webmedx [id number]/01/13 1256 Denilson Jorge, | | | MD | | + + + + + + + + | Performing | Address | City/State[facility] | Phone Number | | Organization | | | | + + + + + | [address] | [address] | [place] | [phone] | | [facility] | | [address] | | | - IMAGING | | | | + + + + + documented in this encounter Visit Diagnoses + + | Diagnosis | + + | Back pain Backache, unspecified | + + documented in this encounter
--- OUTSIDE RECORDS SUMMARY | ~2020-05-21 | XMS | Encounter Summary ---
Demographics + + + | Address | [address] | | | [place] [address] | + + + | Home Phone [...] [place] | | | | | [address] | | + + + + + | Pratibha Hester | ECON | Unknown | + | + + + + + | Demian Powell | ECON | Unknown | + | + + + + + Care Team Providers + +------+ + | Care Management Specialist Name | Role | Phone | + +------+ + | Quentin Manriquez PA-C | MARCK | | + +------+ + Reason for Visit + +--------+ + | Reason | Onset | Comments | | | Date | | + +--------+ + | Appointment | 12/31/ | | | | 2014 | | + +--------+ + Encounter Details +--------+ + + + + | Date | Type | Department | Care Team | Description | +--------+ + + + + | 12/31/ | Telephone | [facility] | Sascha Mir, | Appointment | | 2014 | | NEUROSUR[address] | DO [address] | | | | | [address] | [address] [place], [place] | | | | | [place] | [id number] | | | | | [address] | | | | | | [phone] | | | +--------+ + + + [...] Encounter - Elina Fairbanks Cert MA - 12/31/2014 8:46 AM PDTI called and spoke wi th the facility that Demian is at currently to discuss the patient not have transportation to her appointments. The lady I spoke with states that Demian has canceled several other appoi ntments as well and had her wade removed by their facility last Tuesday, so she would no t be needing this visit afterall. ELINA FAIRBANKS elephone Melida Potter - 12/31/2014 8:13 AM PDTPatient left message via [employer]: "Call ing to cancel appt for tomorrow 12/31. I don't have transportation." documented in this encounter Plan of Treatment Not on filedocumented as of this encounter Visit Diagnoses Not on filedocumented in this encounter
--- OUTSIDE RECORDS SUMMARY | ~2020-05-21 | XMS | Encounter Summary ---
Demographics + + + | Address | [address] [facility] | | | [place] [address] | + + + | Home Phone [...] | Author | [facility] | | | and [place] | + + + | Organization | [facility] | | | [...] [place] | | | | | [address] | | + + + + + | Pratibha Hester | ECON | Unknown | + | + + + + + | Demian Powell | ECON | Unknown | + | + + + + + Care Team Providers + +------+ + | Care Market Survey Representative Name | Role | Phone | + +------+ + | Quentin Manriquez PA-C | MARCK | | + +------+ + Reason for Visit +--------+--------+ + | Reason | Onset | Comments | | | Date | | +--------+--------+ + | Other | 06/11/ | Med refill | | | 2014 | | +--------+--------+ + Encounter Details +--------+ + + + + | Date | Type | Department | Care Team | Description | +--------+ + + + + | 06/11/ | Telephone | [facility] [place] | Sascha Mir, | Other (Med refill) | | 2014 | | NEUR[address]UR[address] | DO [address] | | | | | [address] | [address] [place] | | | | | [place] | [phone] | | | | | [address] | | | | | | [phone] | | | +--------+ + + + [...] Encounter - Elina Noonan Cert MA - 06/16/2015 9:46 AM PSTI spoke with Demian th . She tells me that she spoke with me on Tuesday and was told that her Rx's were c alled into [facility]. I explained to her that I left a vm for her, but I never did speak w ith her directly Tuesday and I certainly did not tell her that her Rx's were called into her pharmacy, because they were not approved by the physician. I let her know that this is dharmesh use she is very far out from surgery and these needs to come from her PCP at this time. She became frustrated with me and hung up the phone. ELINA NOONAN elephone Encounjoaquin r Elina Ferrara Cert MA - 06/13/2015 12:19 PM PSTVM left for Demian. ELINA NOONAN elephone Encounte r Amol Marie PA - 06/13/2015 12:12 PM PSTI double checked the dates. Patient has not had surgery since December 12. This is well beyond our 3 month time period. I will not refil l her medications this time. 12:1 3 PM PSTTelephone Encounter - Isael De La Torre - 06/12/2015 1:25 PM PSTPatient called to check the status of her refill request. Informed patient that we are waiting for approval fr flores her physician. Patient understood and said she will call back later in the afternoon to clarence dick. Thank you. el ephone Encounter - Elina Noonan Cert MA - 06/11/2015 1:28 PM PSTDerek, Patient is requesting another refill of Zofran. She is S/P L5-S1 fusion on 12/12/14. Please approve/deny Rx ELINA NOONAN elephone Encounjoaquin r - Melida Lindquist - 06/11/2015 1:19 PM PSTPatient left message via [employer]: "Need refill of Zofran called into [facility]."Electronically signed by Melida Lindquist at 015 1:20 PM PSTdocumented in this encounter Plan of Treatment Not on filedocumented as of this encounter Visit Diagnoses + + | Diagnosis | + + | Nausea - Primary Nausea alone | + + documented in this encounter
--- OUTSIDE RECORDS SUMMARY | ~2020-05-21 | XMS | Encounter Summary ---
Demographics + + + | Address | [address] | | | [place] [address] | + + + | Home Phone [...] Providers + +------+ + | Care Rn Hemodialysis Name | Role | Phone | + [...] | | | | | Procedures | [place], | and Healing, | | | | | PHYSICAL | [place] | [address], | | | | | THERAPY | [address] | 1st Floor | | | | | REFERRAL | Phone: | [place], [place] | | | | | | [phone] | [address] | | | | | | Fax: | Phone: | | | | | | [phone] | [phone] | | | | | | | Fax: | | | | | | | [phone] | +--------+--------+ + + + + Encounter Details +--------+---------+ + + + | Date | Type | Department | Care Team | Description | +--------+---------+ + + + | 06/27/ | Office | [facility] | Edith Gil, | Morbid obesity (HCC) | | 2019 | Visit | Therapy Services at | PT,DPT [address] | (Primary Dx) | | | | [facility] | [address] [facility] [place] | | | | | [address] | [address] | | | | | [facility] | | | | | | and Healing, | | | | | | [address] | | | | | | [place], [place] | | | | | | [address] | | | | | | [phone] | | | +--------+---------+ + + + [...] children or pets 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 [place] / Product Type: Medicaid / Non-Medicare [facility] PHYSICAL THERAPY EVALUATION Past Medical History: Diagnosis [...] day prior to colonoscopy as directed by [facility]. Discard remaining half jug. Indications: Bowel Evacuation, [...] person here for pre-op appointment for b [facility] surgical program. Activity limitations and participation restrictions: [...] Log roll technique Strength training: Access Code: [email or web address] URL: [email or web address] Date: 06/27/2019 Prepared by: Dennise Gil Exercises [...] Moderate - Moderate complexity Complexity: Moderate - 76849 The patient requires services that can be [...] in their status. Edith Gil PT, DPT [facility] PHYSICAL THERAPY SERVICES AT [facility] Scheduled Appointment time: 11:45 AM The patient was seen for a total of 40 minutes of treatment time. 40 minutes was in direct contact care as described above and on completed flow sheets. Treatment Interventions duration in minutes: Procedure:Physical Therapy Evaluation Authorization information for first visit and progress reports Procedure Codes: Re-evaluation 56941, Therapeutic Exercise 49835, Manual Therapy 13860, Th erapeutic Activities 84596, Neuromuscular Reeducation 46342, Gait Training 36176 and Self-ca re ADL 23769 Minutes per session: 45 Total number of visits: 1 Frequency: discharge Duration: n/a (must exceed or match Medicare service period request) Service period from: 06/27/2019 to: - (Medicare must match duration or be no greater than 90 days if proposed duration is greater than 3 months) Start of care: 06/27/2019 Referral information Authorizing Provider: DIPESH RIDLEY [[id number]] Onset/Referral Date: 05/03/19 Primary/Referral Diagnosis: No diagnosis found. Next progress report 08/26/2019 Insurance: Payor: [facility] MEDICAID / Plan: [facility] [place] / Product Type: Medicaid / Number [...]
--- OUTSIDE RECORDS SUMMARY | ~2020-05-21 | XMS | Encounter Summary ---
Demographics + + + | Address | [address] [address] | | | [place] [address] | + + + | Home Phone [...] Author + + + | Author | [facility] | | | and [place] | + + + | Organization | [facility] | | | [...] [place] | | | | | [address] | | + + + + + | Pratibha Hester | ECON | Unknown | + | + + + + + | Demian Powell | ECON | Unknown | + | + + + + + Care Team Providers + +------+ + | Care Special Trackwork Blacksmith Name | Role | Phone | + [...] + + | 05/19/ | Telephone | [facility] | Sascha Mir, | Other | | 2014 | | NEUROSURGERY [address] | DO [address] | | | | | [address] [facility] [address] | [address] [place], [place] | | | | | [place] | [address] | | | | | [address] | | | | | | [phone] | | | +--------+ + + + [...] 05/19/2015 9:47 AM PDTPatient left message via [employer]: "She is still having issues with her back. If you can call her back on Tuesday."Electronically sig chary by Melida Lindquist at 05/19/2015 9:47 AM PDTdocumented in this encounter Plan of Treatment Not on filedocumented as of this encounter Visit Diagnoses Not on filedocumented in this encounter
--- OUTSIDE RECORDS SUMMARY | ~2020-05-21 | XMS | Encounter Summary ---
Demographics + + + | Address | [address] [facility] | | | [place] [address] | + + + | Home Phone [...] + | Author | [facility] | | | and [place] | + + + | Organization | [facility] | | | and [...] [place] | | | | | [address] | | + + + + + | Pratibha Hester | ECON | Unknown | + | + + + + + | Demian Powell | ECON | Unknown | + | + + + + + Care Team Providers + +------+ + | Care Welder Tool And Die Name | Role | Phone | + +------+ + | Quentin Manriquez PA-C | MARCK | | + +------+ + Encounter Details +--------+ + + + + | Date | Type | Department | Care Team | Description | +--------+ + + + + | 03/17/ | Hospital | [place] | Amol Triplett, | Spondylolisthesis of | | 2014 | Encounter | MED CTR XRAY [address] | PA-C [address] | lumbar region | | | | [place] | [address] [place] | L5-S1; S/P lumbar | | | | [place] [address] | [place] [address] | fusion | | | | [phone] | [phone] | | | | | | | [...] L5 through S1 with interbody hardware at [facility] | | L5-S1. Extensive spondylosis [...] ST. | [address] | [place], [place] | [phone] | | [facility] | | [address] | | | - IMAGING | | | | + + + + + documented in this encounter Visit Diagnoses + + | Diagnosis | + + | Spondylolisthesis of lumbar region L5-S1 Acquired spondylolisthesis | + + | S/P lumbar fusion Arthrodesis status | + + documented in this encounter"
--- OUTSIDE RECORDS SUMMARY | ~2020-05-21 | XMS | Encounter Summary ---
Demographics + + + | Address | [address] [facility] | | | [place] [address] | + + + | Home Phone [...] [place] | | | | | [address] | | + + + + + | Pratibha Hester | ECON | Unknown | + | + + + + + | Demian Powell | ECON | Unknown | + | + + + + + Care Team Providers + +------+ + | Care Carton Forming Machine Tender Name | Role | Phone | + +------+ + | Jannette Boyle PA-C | PCP | | + +------+ + Encounter Details +--------+ + + + + | Date | Type | Department | Care Team | Description | +--------+ + + + + | 09/27/ | Orders Only | [facility] | Sascha Mir, | Back pain, | | 2017 | | NEUROSURGERY [address] | DO [address] | unspecified back | | | | [address] | [address] [place], [place] | location, | | | | [place], [place] | [address] | unspecified back | | | | [address] | | pain laterality, | | | | [phone] | | unspecified | | | | [...]
--- OUTSIDE RECORDS SUMMARY | ~2020-05-21 | XMS | Encounter Summary ---
Demographics + + + | Address | [address] | | | [place] [address] | + + + | Home Phone [...] Team Providers + +------+ + | Care Qa Engineer Name | Role | Phone | + +------+ + | Soniya Sinha [facility] | PCP | | + +------+ + Encounter Details +--------+ + + + + | Date | Type | Department | Care Team | Description | +--------+ + + + + | 10/03/ | [facility] | Otolaryngology | Windy Mclean | Dizziness (Primary | | 2013 | | Otology Services at | MD Loli [address] | Dx); Hearing loss | | | | PPV [address] | | | | | [address] | [facility] [place] | | | | | Physician's | [address] | | | | | Pavilion, 2nd floor | [phone] | | | | | [facility] [place] | | | | | | [address] | | | | | | [phone] | | | +--------+ + + + [...]
--- OUTSIDE RECORDS SUMMARY | ~2020-05-21 | XMS | Encounter Summary ---
Demographics + + + | Address | [address] | | | [place] [address] | + + + | Home Phone [...] Author + + + | Author | [facility] | | | and [place] | + + + | Organization | [facility] | | [...] [place] | | | | | [address] | | + + + + + | Pratibha Hester | ECON | Unknown | + | + + + + + | Demian Powell | ECON | Unknown | + | + + + + + Care Team Providers + +------+ + | Care Rivet Heater Name | Role | Phone | + [...] AVE | | | | | [address] [facility] [address] | [address] [place], [place] | | | | | [place] | [id number] | | | | | [address] | | | | | | [phone] | | | +--------+ + + + [...] PDTI called and let Crystal know at [facility] that Demian does not need an MRI [...] to Iodine. Please advise. ELINA NOONAN [facility]phone [facility] 05/12/2015 3:45 PM PDTMicefrain from [facility] imaging department called earnest leigh that she was told by the patients PCP office that they are waiting on us before Demian can complete the MRI, please advise. Crystal would like a call back [phone] signed by Madiha Schilling at 12/2014 3:47 PM PDTTelephone Encounter - Lois Brown RN - 05/06/2015 3:06 PM PDTDr. [facility] MRI from March was sent to [facility]. Dr. Mejía "spoke with a neuro rad and they are recommending an MRI with gadolinium as the next step. The CT myelo gram was not done." Dr. Mejía's number is [phone] if there are any questions about this . Please advise elepho ne Encounter - Elina Noonan Cert MA - 05/06/2015 10:43 AM PDTDanielle called today from [facility] stating that Dr. Mir spoke with [...]
--- OUTSIDE RECORDS SUMMARY | ~2020-05-21 | XMS | Encounter Summary ---
Demographics + + + | Address | [address] | | | [place] [address] | + + + | Home Phone [...] + + + | Author | [facility] | + + + | Organization | [facility] | + + + | Address | Unknown | + + + | Phone | Unavailable | + + + Support + + +---------+ + | Name | Relationship | Address | Phone | + + +---------+ + | Alisia Nina | ECON | Unknown | | + + +---------+ + Care Team Providers + +------+ + | Care Obstetric Assistant Name | Role | Phone | + +------+ + | Gracie Lewis PA-C | PCP | | + +------+ + Encounter Details +--------+ + + + + | Date | Type | Department | Care Team | Description | +--------+ + + + + | 01/06/ | Controls Project Engineer | [facility] | Jeanna Sandhu, | | | 2019 | | [place] [address] | MD [address] | | | | | [facility] for | [place], [place] | | | | | Health and Healing, | [address] | | | | | [address] | [phone] | | | | | [place], [place] | | | | | | [address] | | | | | | [phone] | | | +--------+ + + + [...]
--- OUTSIDE RECORDS SUMMARY | ~2020-05-21 | XMS | Encounter Summary ---
Demographics + + + | Address | [address] | | | [place] [address] | + + + | Home Phone [...] [place] | | | | | [address] | | + + + + + | Pratibha Hester | ECON | Unknown | + | + + + + + | Demian Powell | ECON | Unknown | + | + + + + + Care Team Providers + +------+ + | Care Chef Kitchen Manager Name | Role | Phone | + +------+ + | Quentin Manriquez PA-C | MARCK | | + +------+ + Reason for Visit + +--------+ + | Reason | Onset | Comments | | | Date | | + +--------+ + | Medication Refill | 03/31/ | | | | 2014 | | + +--------+ + Encounter Details +--------+--------+ + + + | Date | Type | Department | Care Team | Description | +--------+--------+ + + + | 03/31/ | Refill | [facility] [place] | Sascha Mir, | Medication Refill | | 2014 | | NEUROSURGERY [address] | DO [address] | | | | | [address] | [address] [place] | | | | | [place] | [address] | | | | | [address] | | | | | | [phone] | | | +--------+--------+ + + + [...] this encounter Miscellaneous Notes Telephone Encounter - Lois Brown RN - 04/07/2015 10:10 AM PDTContacted Triptrotting. The zofran prescription has been filled since 03/31. Left voicemail that prescription is filled and available at her pharmacy. 15 10:11 AM PDTTelephone Encounter - Sepideh Mckay - 04/07/2015 9:50 AM PDTPatient called in and left a message with Lois Melendez on 04/04 at 4:06 stating that "I did not get my zo kanika at the pharmacy. I called for it last week. Please call" elephone Encounter - Lenka Mann Medical Assi stant - 03/31/2015 4:35 PM [facility] William. Called in metaxalone (SKELAXIN) 800 mg. #60, #1 refill.suman 1 tablet PO 3 times daily as needed for Mus geovanna spasms. Medication approved. Called patient to inform her the [facility] and relayed ANNETTE Duggan's instructions. [facility] for return call. Lily Mann elephone Encounter - Amol Triplett PA - 03/31/2015 3:50 PM PDTRobaxin is supposed to b e one of the non sedating medications. The only other one I can think of that is non sedatin g is Skelaxin. I don't know why but insurance seems to be reluctant to cover this med. I dean l order it and we will see what happens.Electronically signed by ANNETTE Cedeño at 3:53 PM PDTTelephone Encounter - Lenka Mann, Moisture Machine Tender - 03/31/20 2:58 PM PDTMedication Refill Request Procedure: [id number] Date of Surgery: 12/12/14 Medication requested: Zofran 4mg. She said the methocarbamol makes her to sleepy. Can we give her something else that makes her not as sleepy? She said she mailed the Rx for her Me thocarbamol back to us. She did not fill it. Current intake: 1 every 8 hours PRN Date of last refill: 02/26/15 # of tabs left/or when will patient run out of this medication: 0 Where is pain located?: Still has pain in lower area of neck and back. Type of pain (constant, intermittent, sharp, dull)?: Nausea. Send in the mail or call in to preferred pharmacy? Call into pharmacy ([facility]) Please approve/deny Lily Mann d ocumented in this encounter Plan of Treatment Not on filedocumented as of this encounter Visit Diagnoses + + | Diagnosis | + + | Nausea - Primary Nausea alone | + + | S/P lumbar fusion Arthrodesis status | + + documented in this encounter
--- OUTSIDE RECORDS SUMMARY | ~2020-05-21 | XMS | Encounter Summary ---
Demographics + + + | Address | [address] | | | [place] [address] | + + + | Home Phone [...] [place] | | | | | [address] | | + + + + + | Pratibha Hester | ECON | Unknown | + | + + + + + | Demian Powell | ECON | Unknown | + | + + + + + Care Team Providers + +------+ + | Care Travel Money Advisor Name | Role | Phone | + +------+ + | Gracie Lewis PA-C | PCP | | + +------+ + Encounter Details +--------+ + + + + | Date | Type | Department | Care Team | Description | +--------+ + + + + | 09/26/ | Telephone | [facility] | Denilson Jorge | | | 2012 | | NEUROSURGERY [address] | F[address] | | | | | [address] | [place], [place] | | | | | [place], [place] | [address] | | | | | [address] | [phone] | | | | | [phone] | | | +--------+ + + + [...]
--- OUTSIDE RECORDS SUMMARY | ~2020-05-21 | XMS | Encounter Summary ---
Demographics + + + | Address | [address] | | | [place] [address] | + + + | Home Phone [...] Team Providers + +------+ + | Care Salvage Inspector Name | Role | Phone | + +------+ + | Gracie Lewis PA-C | PCP | | + +------+ + Encounter Details +--------+ + + + + | Date | Type | Department | Care Team | Description | +--------+ + + + + | 12/23/ | Speech Pathology Teacher | Digestive Health | Jeanna Sandhu, | | | 2019 | | Center at [facility] [address] | MD [address] | | | | | [address] | [facility] [place] | | | | | for Health and | [address] | | | | | Healing, [address] | [phone] | | | | | [place], [place] | | | | | | [address] | | | | | | [phone] | | | +--------+ + + + [...]
--- OUTSIDE RECORDS SUMMARY | ~2020-05-21 | XMS | Encounter Summary ---
Demographics + + + | Address | [address] [facility] | | | [place] [address] | + + + | Home Phone [...] [place] | | | | | [address] | | + + + + + | Pratibha Hester | ECON | Unknown | + | + + + + + | Demian Powell | ECON | Unknown | + | + + + + + Care Team Providers + +------+ + | Care Environmental Health Sanitarian Name | Role | Phone | + [...] | | | | Displacement | PA-C [address] | [address] | | | | | of lumbar | [place] | [address] | | | | | intervertebr | WAY | [place] | | | | | al disc | [place], | [address] Phone: | | | | | without | [place] [address] | [phone] | | | | | myelopathy | Phone: | Fax: | | | | | Procedures | [phone] | [phone] | | | | | [place] OFFICE | Fax: | | | | | | CONSULTATION | [phone] | | | | | | NEW/ESTAB [...] [address] | [address] [place], [place] | (Primary Dx); Lumbar | | | | [place], [place] | [address] | stenosis; Lumbar | | | | [address] | | radicular pain; | | | | [phone] | | Midline low back | | [...] m the original. Sascha Mir DO [address] [facility], [address] [place] [address] FAX: NEUROSURGERY HISTORY AND PHYSICAL EXAMINATION CHIEF [...] has no apparent deficits with short or detention memory. CRANIAL NERVES: II: Acuity is intact. [...] Intrinsics 5 5 Ulnar Intrinsics 5 5 Stripper Shovel Operator Strength 5 5 Hip Flexion 5 [...]
--- OUTSIDE RECORDS SUMMARY | ~2020-05-21 | XMS | Encounter Summary ---
Demographics + + + | Address | [address] | | | [place] [address] | + + + | Home Phone [...] [place] | | | | | [address] | | + + + + + | Pratibha Hester | ECON | Unknown | + | + + + + + | Ana Maria Powell | ECON | Unknown | + | + + + + + Care Team Providers + +------+ + | Care Oracle Erp Architect Name | Role | Phone | [...] Procedures | MD [address] | | | | | MRI Lumbar | [address] | [address] [place] | | | | | Spine wo | [place], | [place] | | | | | Contrast | [place] [address] | [address] | | | | | | Phone: | Phone: | | | | | | [phone] | | | | | | | [phone] Fax: | Fax: | | | | | | | | | | | | | [phone] | | +--------+--------+ + + + + Encounter Details +--------+ + + + + | Date | Type | Department | Care Team | Description | +--------+ + + + + | 08/23/ | Orders Only | [facility] | Denilson Jorge | Back pain (Primary | | 2012 | | NEUROSURGERY [address] | F, [address] | Dx) | | | | [address] | St [place] | | | | | [place] | [address] | | | | | [address] | [phone] | | | | | [phone] | | | +--------+ + + + [...] on filedocumented as of this encounter Results MRI Lumbar Spine wo Contrast (09/08/2012 12:34 PM PST) + + | Specimen | + + | | + + + + + | Narrative | Performed At | + + + | [facility] | [facility] | | Department [address] [place] [address] | [place] | | [ rep [place]1+[email or web address]] [ rep [facility] | | [facility]] Signed | - IMAGING | | | | | Patient Name: ANA MARIA TURCIOS Physician: | | | LAUREN.[birth year] : 1970 Age: 42 Sex: F Unit #: [id number] | | | Exam Date: 09/08/12 Location: [facility] | | | Report #: [id number] Page: | | | %(RAD)RES..mtdd.print.filter("pg") of %(RAD) | | | RES..mtdd.print.filter("tpg") | | | | | | Accession Number: [id number] | | | UNENHANCED MRI LUMBAR SPINE, [...] Transcribed | | | Date/Time: 09/08/2012 12:56 Film Washer: | | | <<Signature on File>> | | | Jayden Wyatt | | | MD Rush09/09/12 8674 <Electronically signed by Jayden Beverly MD> | | | Jayden Beverly MD 09/08/12 1234 Film Washer: | | | Sevar Consultx [id number]/01/13 1256 Denilson Jorge, | | | MD | | + + + + + + + + | Performing | Address | City/State/Zipcode | Phone Number | | Organization | | | | + + + + + | [facility] | [address] | [place] | [phone] | | [facility] | | [address] | | | - IMAGING | | | | + + + + + documented in this encounter Visit Diagnoses + + | Diagnosis | + + | Back pain - Primary Backache, unspecified | + + documented in this encounter
--- OUTSIDE RECORDS SUMMARY | ~2020-05-21 | XMS | Encounter Summary ---
Demographics + + + | Address | [address] [facility] [facility] | | | [place] [address] | + + + | Home Phone [...] [place] | | | | | [address] | | + + + + + | Pratibha Hester | ECON | Unknown | + | + + + + + | Demian Powell | ECON | Unknown | + | + + + + + Care Team Providers + +------+ + | Care Maintenance Groundman Name | Role | Phone | + +------+ + | Quentin Manriquez PA-C | MARCK | | + +------+ + Reason for Visit +--------+--------+ + | Reason | Onset | Comments | | | Date | | +--------+--------+ + | Other | 12/10/ | surgery reminder | | | 2014 | | +--------+--------+ + Encounter Details +--------+ + + + + | Date | Type | Department | Care Team | Description | +--------+ + + + + | 12/10/ | Telephone | [facility] | Sascha Mir, | Other (surgery | | 2014 | | NEUROSURGERY [address] | DO [address] | reminder ) | | | | [address] [facility] [address] | [address] [place] | | | | | [place] | [address] | | | | | [address] | | | | | | [phone] | | | +--------+ + + + [...] Miscellaneous Notes Telephone Encounter - Natalie Noonan Cert MA - 12/10/2014 1:56 PM PDTAll presurgical check -in instructions given Surgery date: 12/12/2014 Check-in Time: 07:50am No solids or liquids after midnight the night before surgery. Follow the cleansing instructions provided beginning the night before surgery after you joyce wer or bathe. No showering the morning of surgery. Please do not wear jewelry, contact lenses, nail tajik (on fingers or toes), or make-up to surgery check-in. If you have dentures, or hearing aids please bring the cases to check-in. Medications instructions: Aspirin, Ibuprofen documented in this encounter Plan of Treatment Not on filedocumented as of this encounter Visit Diagnoses Not on filedocumented in this encounter"
--- OUTSIDE RECORDS SUMMARY | ~2020-05-21 | XMS | Encounter Summary ---
Demographics + + + | Address | [address] | | | [place] [address] | + + + | Home Phone [...] [place] | | | | | [address] | | + + + + + | Pratibha Hester | ECON | Unknown | + | + + + + + | Demian Powell | ECON | Unknown | + | + + + + + Care Team Providers + +------+ + | Care Inspection Manager Name | Role | Phone | [...] NEUROSURGERY [address] | F[address] | FOR SURGERY) | | | | [address] | [address] [place] | | | | | [place] | [address] | | | | | [address] | [phone] | | | | | [phone] | | | +--------+ + + + [...] who will be placing this today with Clarence's insurance. Natalie elephone Encounter - El Arias - 09/29/2012 8:53 AM PSTDawbeatriz from [facility] called to give surgery authorization Authorization #: [id number] Valid dates:09/20/12-12/18/12 with up to a 3 night in patient stay Codes Authorized: [id number] They do not have a official referral [...]
--- OUTSIDE RECORDS SUMMARY | ~2020-05-21 | XMS | Encounter Summary ---
Demographics + + + | Address | [address] | | | [place] [address] | + + + | Home Phone [...] Team Providers + +------+ + | Care Ice Carver Name | Role | Phone | + [...] | obesity | AGACNP [address] [place] | | | | | ([facility]) | [address] | for Health | | | | | Procedures | [place], | and Healing, | | | | | PHYSICAL | [place] | Building [address], | | | | | THERAPY | [address] | 1st Floor | | | | | REFERRAL | Phone: | [place], [place] | | | | | | | [address] | | | | | | Fax: | Phone: | | | | | | [phone] | [phone] | | | | | | | Fax: | | | | | | | [phone] | +--------+--------+ + + + + Encounter Details +--------+ + + + + | Date | Type | Department | Care Team | Description | +--------+ + + + + | 05/03/ | Health Professional | Digestive Health | Jen Coronel, | Morbid obesity (HCC) | | 2019 | | Center at [facility] [address] | AGACNP [address] | (Primary Dx) | | | | [address] | [facility] [place] | | | | | for Health and | [address] | | | | | Healing, [address] 2 | [phone] | | | | | [place], [place] | | | | | | [address] | | | | | | [phone] | | | +--------+ + + + [...]
--- OUTSIDE RECORDS SUMMARY | ~2020-05-21 | XMS | Encounter Summary ---
Demographics + + + | Address | [address] | | | [place] [address] | + + + | Home Phone [...] [place] | | | | | [address] | | + + + + + | Pratibha Hester | ECON | Unknown | + | + + + + + | Demian Powell | ECON | Unknown | + | + + + + + Care Team Providers + +------+ + | Care Rn Iv Therapy Name | Role | Phone | + [...] | | | n | spine | [address] | ST [place] | | | | | Spondylolist | [facility] [place], | [facility], [place] | | | | | hesis of | [place] [address] | [address] Phone: | | | | | lumbar | Phone: | [phone] | | | | | region | [phone] | Fax: | | | | | Degenerative | [phone] Fax: | [phone] | | | | | disc | | | | | | | disease, | [phone] | | | | | | lumbar [...] | | | | | ([facility]) | | | | | | | Sacroiliitis | | | | | | | ([facility]) | | | | | | | Trochanteric | | | | | | | bursitis | | | | | | | Diabetes | | | | | | | mellitus | | | | | | | ([facility]) | | | | | | | [...] | | | | | spine | [address] | | | | | | Spondylolist | [place], | | | | | | hesis of | [place] [address] | | | | | | lumbar | Phone: | | | | | | region | [phone] | | | | | | Degenerative | [phone] Fax: | | | | | | disc | | | | | | | disease, | [phone] | | | | | | lumbar [...] + | 10/27/ | Office | [facility] | Denilson Jorge | Pars defect of | | 2012 | Visit | NEUROSURGERY [address] | F, MD [address] | lumbar spine L5-S1 | | | | [address] | [place], [place] | (Primary Dx); | | | | [place], [place] | [address] | Spondylolisthesis of | | | | [address] | [phone] | lumbar region | | | | [phone] | | L5-S1; Degenerative | | | [...] | | | | mellitus ([facility]); | | | | | | Asthma; [...] slip forward. This is called spondylolisthes is. 9118-3428 [facility], [address] [place] [address], [place] [address]. All rights reserve d. This information is not intended as a substitute for professional medical care. Always fo llow your healthcare professional's instructions. documented in this encounter Progress Notes Denilson Jorge MD - 10/27/2012 11:58 AM PDTFormatting of this note might be differen t from the original. Denilson Jorge MD [address] [place] [address], [address] [place] [address] FAX: NEUROSURGERY FOLLOW-UP CHIEF COMPLAINT: Lumbar spondylolisthesis [...] no apparent deficits with short or terminal carman memory. CRANIAL NERVES: Fundoscopic Exam: The optic [...] Intrinsics 5 5 Ulnar Intrinsics 5 5 Statistical Methods Professor Strength 5 5 Hip Flexion 5 5 [...] | | | | | ([facility]) Sacroiliitis | | | | | | ([facility]) Trochanteric | | | | | | bursitis Diabetes | | | | | | mellitus ([facility]) | | | | | | Asthma [...] | | | | | ([facility]) Sacroiliitis | | | | | | ([facility]) Trochanteric | | | | | | bursitis Diabetes | | | | | | mellitus ([facility]) | | | | | | Asthma [...]
--- OUTSIDE RECORDS SUMMARY | ~2020-05-21 | XMS | Encounter Summary ---
Demographics + + + | Address | [address] | | | [place] [address] | + + + | Home Phone [...] [place] | | | | | [address] | | + + + + + | Pratibha Hester | ECON | Unknown | + | + + + + + | Demian Powell | ECON | Unknown | + | + + + + + Care Team Providers + +------+ + | Care Steam Plant Control Room Operator Name | Role | Phone | [...] | | | spondylolist | | [address] | | | | | hesis | | [place], | | | | | Acquired | | [place] [address] | | | | | spondylolist | | Phone: | | | | | hesis | | [phone] | | | | | Procedures | | Fax: | | | | | [place] [facility] | | [phone] | | | | | POST/POSTERO | [...] + | 12/12/ | Anesthesia | [facility] | Laz Douglass | | | 2015 | Event | MED CTR OR INTRA OP | MD Jennifer [address] | | | | | [address] | [place] | | | | | [place] | [phone] | | | | | [address] | | | | | | [phone] | | | +--------+ + + + [...] +----+---+ + + | | 0 | [place] | | | | 9 | 43-degrees [...] +----+---+ + + | | 1 | [place] off | | | | 2 | [...] EVALUATION Demian Nina 44 y.o. female 1970 [id number] Procedure(s) L5-S1 Transforaminal Lumbar Interbody Fusion (N/A [...] by Laz Douglass MD 12/12/2014 12:43 [facility] nesthesia Preproc edure Evaluation - Laz Douglass MD - 12/12/2014 8:14 AM PDTFormatting of this note m ight be different from the original. ANESTHESIA PREANESTHESIA EVALUATION Demian Nina 44 y.o. female 1970 [id number] Procedure(s): L5-S1 Transforaminal Lumbar Interbody Fusion (N/A ) Medical history, anesthesia, medications, allergy histories reviewed. Labs reviewed. ROS / Med History Ane (+) PONV. (-) difficult intubation, malignant hyperthermia . NPO status verified. CV (+) CAD, past RI.(-) hypertension, CHF, congenital heart disease, pulmonary hypertension, [...] | | | | to Incision, Starting [facility] 12/12/14 | | | | | [...] mg | | | | PRN, Starting [facility] 12/12/14 at 1010, | | 15 [...] 11:38 | | | | | Starting [facility] 12/12/14 at 1138, | | AM PDT | | | | | Anesthesia Intra-op | | | | | | + +-------+ +--------+---+---+ +---+---+ | | | +---+---+ + +-------+ +--------+---+---+ | glycopyrrolate (ROBINUL) | Given | 12/13/19 | 0.2 mg | | | | injection Intravenous, PRN, | | 15 11:32 | | | | | Secretions, Starting [facility] 12/12/14 | | AM PDT | [...] | | | | | CONTINUOUS, Starting [facility] 12/12/14 | | AM PDT | [...]
--- OUTSIDE RECORDS SUMMARY | ~2020-05-21 | XMS | Encounter Summary ---
Demographics + + + | Address | [address] | | | [place] [address] | + + + | Home Phone [...] Team Providers + +------+ + | Care Farmworker Pullet Farm Name | Role | Phone | + [...] | | 2019 | | Center at [facility] [address] | | Review | | | | [address] | | | | | | for Health and | | | | | | Healing, [address] | | | | | | [place], [place] | | | | | | [address] | | | | | | [phone] | | | +--------+ + + + [...]
--- OUTSIDE RECORDS SUMMARY | ~2020-05-21 | XMS | Encounter Summary ---
Demographics + + + | Address | [address] [facility] | | | [place] [address] | + + + | Home Phone [...] [place] | | | | | [address] | | + + + + + | Pratibha Hester | ECON | Unknown | + | + + + + + | Demian Powell | ECON | Unknown | + | + + + + + Care Team Providers + +------+ + | Care Cemetery Warden Name | Role | Phone | + +------+ + | Quentin Manriquez PA-C | MARCK | | + +------+ + Reason for Visit + +--------+ + | Reason | Onset | Comments | | | Date | | + +--------+ + | Medication Refill | 05/14/ | | | | 2014 | | + +--------+ + Encounter Details +--------+--------+ + + + | Date | Type | Department | Care Team | Description | +--------+--------+ + + + | 05/14/ | Refill | [facility] | Sascha Mir, | Medication Refill | | 2014 | | NEUROSURGERY [address] | DO [address] | | | | | [address] | [address] [place] | | | | | [place] | [address] | | | | | [address] | | | | | | [phone] | | | +--------+--------+ + + + [...] Encounter - Elina Fairbanks Cert MA - 05/14/2015 1:52 PM PDTI spoke with Demian aponte let her know that she needs to request medications from her PCP at this time as she is mor e than 3 months post op. ELINA FAIRBANKS eleSepideh Sullivan - 05/14/2015 1:47 PM PDTPatient returned call. Would like a call back. elephone Encounter - Elina Patel Cert MA - 05/14/2015 9:54 AM PDTVM left for Demian. Requested a call back. ELINA FAIRBANKS elephone Sepideh Benton - 05/14/2015 9:06 AM PDTPatient called in and left a message with daksha natanael stating " I need a prescription for zofran called into [facility]." documented in this encoun ter Plan of Treatment Not on filedocumented as of this encounter Visit Diagnoses Not on filedocumented in this encounter
--- OUTSIDE RECORDS SUMMARY | ~2020-05-21 | XMS | Encounter Summary ---
Demographics + + + | Address | [address] | | | [place] [address] | + + + | Home Phone [...] Team Providers + +------+ + | Care Boat Fueler Name | Role | Phone | + [...] | | | [address] | [facility] | | | | | [address] | [place], [place] | | | | | Physician's | [address] | | | | | Pavilion, 2nd floor | [phone] | | | | | [place], [place] | | | | | | [address] | | | | | | [phone] | | | +--------+ + + + [...] call back later. elephone Encounter - Windy Mcelan MD - 04/17/2014 12:41 AM PDTPlease let [...] sent to the fax # listed below: [phone] (fax) - [facility] Electronically signed by Gracie Membreno at 04/2014 8:27 AM PDTdocumented in this encounter Plan of Treatment Not on filedocumented as of this encounter Visit Diagnoses Not on filedocumented in this encounter"
--- OUTSIDE RECORDS SUMMARY | ~2020-05-21 | XMS | Encounter Summary ---
Demographics + + + | Address | [address] | | | [place] [address] | + + + | Home Phone [...] Team Providers + +------+ + | Care Cloth Washer Name | Role | Phone | [...] | | | | [address] | [place] [address] | | | | | Physician's | [phone] | | | | | Willy, [facility] floor | | | | | | [place], [place] | | | | | | [address] | | | | | | [phone] | | | +--------+ + + + [...] to moderate mixed hearing loss. A speech marble coper threshold was obtain ed at 40 dB HL and is in good agreement with responses to pure-tone stimuli. Word recogniti on ability was 80% when words were presented at a comfortable level of 65 dB HL. Left Ear: Normal hearing sensitivity from 250-4000 Hz, sloping to a mild hearing loss at 6000 Hz, rising to normal hearing at 8000 Hz. A speech marble coper threshold was obtained at 20 dB HL [...] + +--------+ + + + | [place] TYMPANOMETRY | Routin | 04/16/2014 | Mixed hearing | | | | e | 3:45 PM | loss, unilateral | | | | | PDT | | | + +--------+ + + + | [place] COMPREHENSIVE | Routin | 04/16/2014 | Mixed [...]
--- OUTSIDE RECORDS SUMMARY | ~2020-05-21 | XMS | Encounter Summary ---
Demographics + + + | Address | [address] | | | [place] [address] | + + + | Home Phone [...] [place] | | | | | [address] | | + + + + + | Pratibha Hester | ECON | Unknown | + | + + + + + | Demian Powell | ECON | Unknown | + | + + + + + Care Team Providers + +------+ + | Care Magnetic Tape Winder Name | Role | Phone | + +------+ + | Quentin Manriquez PA-C | MARCK | | + +------+ + Encounter Details +--------+ + + + + | Date | Type | Department | Care Team | Description | +--------+ + + + + | 01/15/ | Hospital | [facility] | Sascha Mir, | Status post lumbar | | 2015 | Encounter | MED CTR XRAY [address] | DO [address] | spinal fusion | | | | [place] | [address] | | | | | [place] [address] | [id number] | | | | | [phone] | | | +--------+ + + + [...] | [address] | [place] | [phone] | | [facility] | | [address] | | | - IMAGING | | | | + + + + + documented in this encounter Visit Diagnoses + + | Diagnosis | + + | Status post lumbar spinal fusion Arthrodesis status | + + documented in this encounter"
--- OUTSIDE RECORDS SUMMARY | ~2020-05-21 | XMS | Encounter Summary ---
Demographics + + + | Address | [address] | | | [place] [address] | + + + | Home Phone [...] [place] | | | | | [address] | | + + + + + | Pratibha Hester | ECON | Unknown | + | + + + + + | Demian Powell | ECON | Unknown | + | + + + + + Care Team Providers + +------+ + | Care Seconds Inspector Name | Role | Phone | [...] [phone] | | | | | | [place], [place] | | | | | | [address] | | | | | | [phone] | | | +--------+ + + + [...]
--- OUTSIDE RECORDS SUMMARY | ~2020-05-21 | XMS | Encounter Summary ---
Demographics + + + | Address | [address] | | | [place] [address] | + + + | Home Phone [...] [place] | | | | | [address] | | + + + + + | Pratibha Hester | ECON | Unknown | + | + + + + + | Demian Powell | ECON | Unknown | + | + + + + + Care Team Providers + +------+ + | Care Pallet Stone Inserter Name | Role | Phone | + [...] | | | [address] | [place], [place] | | | | | [place], [place] | [address] | | | | | [address] | | | | | | [phone] | | | +--------+ + + + [...] MV A Ollie: 0.67 m/s MV Dec Crisp: 3.90 m/s2 MV | | | DecT: 192.12 ms MV E Ollie: 0.75 m/s MV E/A Ratio: 1.11 MV | | | PHT: 55.71 ms MVA By PHT: 3.94 cm2 Septal e': 0.04 m/s | | | Septal E/e': 15.99 Lateral e': 0.06 m/s Lateral E/e': 11.01 | | | Aircraft Design Engineer: MEME Authenticated by: Itzel Mendoza Report | [...] cmLVIDd: 4.40 cmLVPWd: 0.94 cmLVOT Area: 3.61 qd7LNFD Diam: 2.14 cm%FS: 30.32 | | %EF(Teich): [...] mlLAESV Index (A-L): 20.19 ml/m2LAAs A2C: 13.00 [id number] A-L | | A2C: 36.94 mlLALs A2C: 3.88 cmLAAs A4C: 15.93 ni9KCEBH A-L A4C: 49.93 mlLALs | | A4C: 4.31 cmRAAs: 10.82 qw2TIWYP A-L: 24.00 mlRAESV MOD: 22.53 mlRALs: 4.14 | | cmTAPSE: 1.61 cmAV maxP.99 mmHgAV meanP.27 mmHgAV Vmax: 1.73 m/Trang | | Vmean: 1.19 m/Trang VTI: 27.27 cmAVA Vmax: 2.35 cm2AVA (VTI): 2.65 sy9EHVM (Vmax): | | 0.00 cm2/m2AVAI (VTI): 0.00 cm2/m2LVOT maxP.08 mmHgLVOT meanP.38 | | mmHgLVSI Dopp: 32.31 ml/m2LVSV Dopp: 72.37 mlLVOT Vmax: 1.12 m/sLVOT Vmean: 0.72 | | m/sLVOT VTI: 20.04 cmMV A Ollie: 0.67 m/sMV Dec Crisp: 3.90 m/s2MV DecT: 192.12 | | msMV E Ollie: 0.75 m/sMV E/A Ratio: 1.11MV PHT: 55.71 msMVA By PHT: 3.94 su1Xtbsvr | | e': 0.04 m/sSeptal E/e': 15.99Lateral e': 0.06 m/sLateral E/e': 11.01 | | Aircraft Design Engineer: MEMEAuthenticated by: Itzel [facility] Date/Time: 06-01-2018 19:30:56 | | IMPRESSION: 1. [...] A Ollie: 0.67 m/s | |MV Dec Crisp: 3.90 m/s2 | |MV DecT: 192.12 ms | |MV E Ollie: 0.75 m/s | |MV E/A Ratio: 1.11 | |MV PHT: 55.71 ms | |MVA By PHT: 3.94 cm2 | |Septal e': 0.04 m/s | |Septal E/e': 15.99 | |Lateral e': 0.06 m/s | |Lateral E/e': 11.01 | | | |Aircraft Design Engineer: DBS | |Authenticated by: Itzel Mendoza | [...]
--- OUTSIDE RECORDS SUMMARY | ~2020-05-21 | XMS | Encounter Summary ---
Demographics + + + | Address | [address] | | | [place] [address] | + + + | Home Phone [...] [place] | | | | | [address] | | + + + + + | Pratibha Hester | ECON | Unknown | + | + + + + + | Demian Powell | ECON | Unknown | + | + + + + + Care Team Providers + +------+ + | Care Bilingual Sales Consultant Name | Role | Phone | [...] + | 12/09/ | Telephone | [facility] | Sascha Mir, | Other (Fax) | | 2014 | | NEUROSURGERY [address] | DO [address] | | | | | [address] [facility] [address] | [address] [place], [place] | | | | | [place] | [id number] | | | | | [address] | | | | | | [phone] | | | +--------+ + + + [...] 12/09/2014 12:00 PM PDTPatient left message via [facility]: "please call re: a fax for my surgery." I called her and left a voicemail requ esting a phone call back to get further information. documented in this encounter Plan of Treatment Not on filedocumented as of this encounter Visit Diagnoses Not on filedocumented in this encounter
--- OUTSIDE RECORDS SUMMARY | ~2020-05-21 | XMS | Encounter Summary ---
Demographics + + + | Address | [address] | | | [place] [address] | + + + | Home Phone [...] Providers + +------+ + | Care Quality Assurance Qa Lab Analyst Name | Role | Phone | [...] | | | [address] | [facility] | | | | | [address] | [place], [place] | | | | | Physician's | [address] | | | | | Pavilion, 2nd floor | [phone] | | | | | [place], [place] | | | | | | [address] | | | | | | [phone] | | | +--------+ + + + [...] PM PSTChart note is comple elle. elephone Russello bayron - Ray Kohli - 08/21/2014 11:04 AM PST Please complete chart notes Patient Information Patient Name Sex Demian Araya ([id number]) Female 1970 Due: TueAugust 14, 2014 1:00 PM Message Good afternoon, Patient Demian Nina ( ) has been walked in same day 08/14/[address] [facility] requires prior authorization with the most recent chart notes. Please have Dr. Cade complete office visit note dated 08/14/14 so that we can submit the authorization request. Thank you, Chioma Town[facility] [phone] documented in this encou nter Plan of Treatment Not on filedocumented as of this encounter Visit Diagnoses Not on filedocumented in this encounter"
--- OUTSIDE RECORDS SUMMARY | ~2020-05-21 | XMS | Encounter Summary ---
Demographics + + + | Address | [address] | | | [place] [address] | + + + | Home Phone [...] Team Providers + +------+ + | Care Rubber Press Operator Name | Role | Phone [...] floor | | | | | | [place], [place] | | | | | | [address] | | | | | | [phone] | | | +--------+ + + + [...] to mild conductive hearing loss. A speech temporary receptionist threshold was o btained at 30 dB HL and is in good agreement with responses to pure-tone stimuli. Word clau gnition ability was 100% when words were presented at a comfortable level of 65 dB HL. Left Ear: Near normal hearing with a conductive loss below 2000 Hz; mild sensorineural he aring loss at 8000 Hz. A speech temporary receptionist threshold was obtained at 20 dB HL and is in good agreement with responses to pure-tone stimuli. Word recognition ability was 100% when word s were presented at a comfortable level of 60 dB HL. Please see [facility] audiogram for details. Please see otology [...] | + +--------+ + + + | [place] TYMPANOMETRY | Routin | 08/14/2014 | Conductive hearing | | | | e | 4:03 PM | loss, bilateral | | | | | PST | | | + +--------+ + + + | [place] COMPREHENSIVE | Routin | 08/14/2014 | Conductive [...]
--- OUTSIDE RECORDS SUMMARY | ~2020-05-21 | XMS | Encounter Summary ---
Demographics + + + | Address | [address] | | | [place] [address] | + + + | Home Phone [...] Team Providers + +------+ + | Care Cooperative Education Director Name | Role | Phone | + +------+ + | Gracie Lewis PA-C | PCP | | + +------+ + Encounter Details +--------+ + + + + | Date | Type | Department | Care Team | Description | +--------+ + + + + | 01/06/ | Documentati | [facility] | Jeanna Sandhu, | | | 2020 | on | [facility] [address] | MD [address] | | | | | [facility] | [place], [place] | | | | | Health and Healing, | [address] | | | | | [address] | [phone] | | | | | [place], [place] | | | | | | [address] | | | | | | [phone] | | | +--------+ + + + [...]
--- OUTSIDE RECORDS SUMMARY | ~2020-05-21 | XMS | Encounter Summary ---
Demographics + + + | Address | [address] | | | [place] [address] | + + + | Home Phone [...] [place] | | | | | [address] | | + + + + + | Pratibha Hester | ECON | Unknown | + | + + + + + | Demian Powell | ECON | Unknown | + | + + + + + Care Team Providers + +------+ + | Care Snath Handle Assembler Name | Role | Phone | [...] | | | | | unspecified | SHALLOT CLEANER [address] | [place], | | | | | type | [address] | [place] [address] | | | | | Procedures | [place], | Phone: | | | | | [place] SLEEP | [place] [address] | [phone] | | | | | STUDY, | Phone: | Fax: | | | | | UNATTENDED, | [phone] | [phone] | | | | | RECORD HEART | Fax: | | | | | | RATE/O2 | [phone] | | | | | | SAT/RESP [...] Adult Health | sleep apnea | PA-C [address] | ROBERTO Bowman | | | | / Sleep | (adult) | | [address] | | | | Medicine | (pediatric) | [address] | [address] | | | | | CON[address]ULT [address] | [address] | [place], | | | | | [address] | [place], | [place] [address] | | | | | GET REF FROM | [place] [address] | Phone: | | | | | [facility] | Phone: | [phone] | | | | | Procedures | [phone] | Fax: | | | | | NEW PATIENT | Fax: | [phone] | | | | | | [phone] | | +--------+--------+ + + + + Encounter Details +--------+---------+ + + + | Date | Type | Department | Care Team | Description | +--------+---------+ + + + | 02/04/ | Office | [facility] | Jeanna Wheeler | Sleep apnea, | | 2019 | Visit | SLEEP DISORDER [address] | ROBERT[address] | unspecified type | | | | [address] [place] | [address] [place] | (Primary Dx); | | | | [place] [address] | [place] [address] | Snoring | | | | [phone] | [phone] | | | | | | | [...] in this encounter Progress Notes Farnaz Alexandra, Cold Roller - 02/05/2020 10:00 AM PDTFormatting of this note might be d ifferent from the original. 02/05/20 0900 Smith Depression Inventory-II Depression Score 2 - Minimal depression Insomnia Severity Index Insomnia Severity Index 4 [place] Sleepiness Scale 1. Sitting and reading 0 [...] diff erent from the original. Yessenia Negro [facility] [place] [address] Ref: Gracie Lewis P* CC: Chief Complaint [...] Chronic low back pain (07/22/2015), Diabetes mellitus ([facility]) (2013), Essent ial hypertension, Gastric reflux, Heart attack ([facility]) (2009), Lumbar radiculopathy ( 5), Migraine, Morbid obesity ([facility]), Multiple allergies, Pars defect of lumbar spine, [...] 324 mg by mouth daily (with breakfast). Pxsatcq-Bumraijkzino-Jaekxnvye (TRI-RAJ) 0.01-4-0.05 % CREA APPLY TO CLEAN [...] Laterality Date ADENOIDECTOMY SECTION, LOW TRANSVERSE 1995 [facility]; [place] SECTION, LOW TRANSVERSE 2005 [facility]; [place] CHOLECYSTECTOMY LUMBAR LAMINECTOMY N/A 12/12/2014 Procedure: L5-S1 Transforaminal Lumbar Interbody Fusion; Surgeon: Sascha Mir DO; Lo cation: [facility] MAIN OR SHOULDER SURGERY Right TONSILLECTOMY Immunization [...] 07/01/2008, 07/07/2010, 04/08/2011, 05/18/2013 , 05/07/2014 INFLUENZA, [id number], UNSPECIFIED 08/05/2009 PNEUMOCOCCAL, UNSPECIFIED FORMULATION 07/07/2010 Family [...] Some college, no degree Occupational History 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 She has 2 children, and she is [...] Review: The score of 0 on the [place] Sleepiness scale suggests normal dayti me sleepiness [...] patient will undergo home study using watch [employer] technology and follow-up afterwar d. Patient Active [...] Parts of this note were dictated using [facility] voice recognition software. Occasional wrong - word or sound-alike substitutions may have occurred due to the inherent limitations of [employer] recognition software. Please read the chart carefully and recognize, using context, alec alvarenga these substitutions have occurred. documented i n this encounter Plan of Treatment + + +--------+ + + | Name | Type | Priori | Associated Diagnoses | Order Schedule | | | | ty | | | + + +--------+ + + | * [facility] Sleep Center - | Outpatient | Routin [...]
--- OUTSIDE RECORDS SUMMARY | ~2020-05-21 | XMS | Encounter Summary ---
Demographics + + + | Address | [address] [facility] | | | [place] [address] | + + + | Home Phone [...] [place] | | | | | [address] | | + + + + + | Pratibha Hester | ECON | Unknown | + | + + + + + | Demian Powell | ECON | Unknown | + | + + + + + Care Team Providers + +------+ + | Care Cell Tender Name | Role | Phone | [...] | | | spondylolist | | [address] | | | | | hesis | | [place], | | | | | Acquired | | [place] [id number] | | | | | spondylolist | | Phone: | | | | | hesis | | [phone] | | | | | Procedures | | Fax: | | | | | [place] ARTHDSIS | | [phone] | | | | | POST/POSTERO | [...] + + | 12/12/ | Surgery | [facility] | Sascha Mir, | L5-S1 Transforaminal | | 2015 | | MED CTR OR INTRA OP | DO [address] | Lumbar Interbody | | | | [address] | [address] | Fusion | | | | [place], [place] | [id number] | | | | | [address] | | | | | | [phone] | | | +--------+---------+ + + + [...] of admission the patient was admitted to [facility] and underwent a L5-S1 fusion . [...] mobility and she was ultimately discharged to [facility]. Medications Reconciled upon Discharge are: Discharge Medications [...] Discharge: Stable Disposition: Patient was discharged to [facility]. Follow-Up Plans: Follow-up with: Dr. Mir's office in 4 weeks Follow-up with primary care physician as needed. Diet: Resume regular diet Activity: Continue to follow guidelines and precautions as previously discussed. Electronically signed by: Amol Triplett, 12/16/2014 7:45 [facility] documented in this encounter Discharge Instructions [...] She [facility] [place]. No further C/C OBJECTIVE: Patient [...] ASSESSMENT:SP L5-S1 fuison Plan:B Brace. DC to [facility] today. See DC summary. Electronically signed by: Amol Triplett, 12/16/2014 7:36 [facility] Sascha Beck DO - 12/15/2014 9:20 AM PDT Subjective The patient was seen and examined by me today. She complains of of left tingling - improved from numbness, and left leg dysesthesia. Her l egs feel strong. Moderate surgical pain, but tolerable. She would like to go to SNF in [facility] before discharge home. Objective Filed Vitals: [...] would like to go to SNF in [facility] before discharge home. Objective Filed Vitals: [...] Range POC Test, Urine Negative POC Specific Perry Internal QC Acceptable Lot Number [id number] Expiration Date POC GLUCOSE Result Value Ref [...] Sascha Mir DO - 12/12/2014 9:09 [facility] AND PHYSICAL [...] Electronically signed by: Sascha Mir, 12/12/2014 9:09 [facility] reySascha maxwell DO - 12/12/2014 9:09 AM PDT [address] [facility], [address] [place] [address] FAX: NEUROSURGERY HISTORY AND PHYSICAL EXAMINATION CHIEF [...] 12/16/2014 9:22 AM PDTTalked with Rene @ [facility], she will run the Insurance and call back. I informed her that we do have discharge orders. Electronically signed by: Yue Wing 12/16/2014 9:23 Rene called back, they can accept Demian today. Faxed orders, PASRR, discharge summary and RX to [facility]. Received the "Communication result report" (result OK) Packet is ready. Demian will call her mom for a ride. Received a call from [facility], requesting the [facility] orders to be faxed to [phone]. Faxed. Received "communication result report" (result ok) NF Transfer - Dash Triplett PA - 12/16/2014 7:43 AM PDTFormatting of this note might be different from the orig inal. NURSING HOME FACILITY TRANSFER ORDERS Patient Name: Demian Nina Patient : 1970 Gender: female Date of Admission: 12/12/2014 Date of Discharge: 12/16/2014 Admitting Provider: Sascha Mir DO Discharging Provider: ANNETTE Gutierrez Consultants: none PCP: Quentin Manriquez [facility] transferring to: Анна Provider after transfer: PCP and Анна ANAND CODE STATUS: [x] Attempt CPR [] Do not resuscitate If patient is pulseless and not breathing, RN/LAB RN may pronounce . Advanced Directives included: [] [...] HPV, QUADRIVALENT, 3 DOSE (ADOL/ADULT) 05/18/2013 INFLUENZA, [id number], ALL FORMULATIONS 08/05/2009 INFLUENZA, HIGH DOSE SEASONAL (ADULT) 05/07/2014 PNEUMOCOCCAL, UNSPECIFIED FORMULATION 07/07/2010 Diet: [x] As tolerated BINDER CASER may upgrade or downgrade diet as condition Indicates. [x] RN may downgrade diet as indicated. Type: [] Continue current diet of: Diet and Supplements Diet DIET GENERAL Number of Occurrences: Until Specified [] Other: Consistency/Precautions: [] Whole [] Thin Liquids [] Cut-up [] Plover Thick [] Advanced Chopped [] Honey Thickened [] Chopped [] Advanced Ground [] 1:1 feedings [] Ground/Pureed [] Other: Tube Feedings: [] PEG [] GT [] JT [] NGT [] Formula type: (Manager Cardiovascular may change/substitute if indicated). [] Continuous Rate: [...] [x] OT Evaluation & Management for: [] BINDER CASER Evaluation &Management for: [] Other: Wound/Skin Care: [...] I, ANNETTE Gutierrez, certify that post hospital shelter care is medically nece ssary on a continuing basis for any of the conditions for which he/she received care during this hospitalization. Check one: [x] Skilled [] Intermediate Additional Orders/Instructions: Physician's signature: Amol Triplett PA-C_12/16/2014 7:43 [facility] NUR[facility] USE ONLY: [] Admitting orders [...] later today t o a rehab in [facility]. Electronically signed by: Giana Rausch RRT [...] the same. Pt plans to go to [facility] for a few days if possible prior [...] with family/caregiver after short term rehab at [facility] Post discharge physical therapy recommendation: outpatient therapy (when ordered by Dr. Dr alcocer) Plan for next treatment: 1P;KH;check on pt prior to planned d/c to [facility] tomorrow . Electronically signed by: Nuvia Dove, PT, 12/15/2014 15:18 lan of Care - Yue Tinsley - 12/15/2014 10:35 AM PDTDischarge Planning: Demian would like to go to [facility] for a short stay prior to going home. She signed the "SNF options form" Placed the signed form in the ghost chart. Faxed referral to [facility]. Received the "Communication result Report" (Result ok) place d the fax in the ghost chart. Will need prior auth from her Insurance company prior to discharge. Demian will be ready for discharge tomorrow. Her mother will transport her at discharge. Electronically signed by: Yue Wing 12/15/2014 10:40 Terrie called from [facility], said everything looks good, they will run her Insurance in the AM lan of Roseline Batres, DEVIL DOG - 12/15/2014 1:49 AM PDTProblem: General Plan [...] Sup 12-14 Stairs Assessment: Pt with improved inventory checker on L but still with continued weakness, [...] 6 Extra Time, 6 Raised Toilet Seat Harrison FIM Self Care Groomin Grooming Score Evidence: [...] likely being d/c home to to SNF aku[facility]. Occupational Therapy Discharge Recommendations are: Recommended [...] minimal amount serosanguious drainage. lan of Eloisa Qurioz OT - 12/13/2014 3:15 PM PDTFormatting of [...] verbal cuing. Donned underwear w/o use of experimental welder but may benefit to increase ease. Sit-s tand w/ SBA & light CGA to ticket puller hips. Tolerated standing @ sink to [...] Recommendations: shower chair, tub bench, sock aide, experimental welder, front wheeled walk er Planned Interventions:Planned Therapy [...] Eloisa Iqbal OT, 12/13/2014 15:15 lan of [facility] Jazlyn Kelly, DEVIL DOG - 12/13/2014 3:10 PM PDTProblem: General Plan of Care (Adult, Obstetrics) Goal: Care Plan Shift Summary & Review . Outcome: Progressing Pt meets goals with IS. Working with PT. Has albuterol MDI at home for PRN use, order rec eived from for same. Given this morning with improvement. lan of [facility] Nuvia Stinson, PT - 12/13/2014 10:28 [...] tin gling to left leg and foot. Mechanic Recovery strong, right foot stong, but left foot [...] lan of Care - P Rekha mendez DEVIL DOG - 12/12/2014 9:30 PM PDTProblem: General Plan of Care (Adult, Obstetric s) Goal: Care Plan Shift Summary & Review . Outcome: Progressing BS clear. Patient achieving 2500 of Predicted Level (mL)(Incentive Spirometer): 2300. SpO 2: 95 % on 3liters/minute nasal cannula. Will continue to monitor. p Note - Sascha Mir DO - 12/12/2014 6:49 PM PDTDATE: 12/12/2014 SURGEON: Sascha Mir DO. PROOFER PREPRESS: None. PREOPERATIVE DIAGNOSES 1. Spondylolisthesis, L5-S1. 2. [...] 26 mm Ti-coated Capstone PEEK cage from [employer] was chosen. It was filled with Infuse [...] Note Demian Nina 44 y.o. female 1970 [id number] Proc. Date 12/12/2014 Preop Dx Acquired spondylolisthesis Postop Dx same Procedure Procedure(s):L5-S1 Transforaminal Lumbar Interbody Fusion Anesthesia General Surgeon Surgeon(s) and Role: * Sascha Mir DO - Primary Preventive Medicine Physician NA EBL 100 mL Findings Findings consistent [...] by: Sascha Mir DO 12/12/2014 18:48 [facility] lan of Rekha Walsh RRT - [...] Sit To Supine, Rehab Eval Level Of Harrison: Sit/Supine: moderate assist (50% patients effort) Physical Assist/Nonphysical Assist: Sit/Supine: 1 person assist, verbal cues Assistive Device: Sit/Supine: bed rails Goal Bed Mobility Sit to Supine Sit to Supine STG Status: New STG Bed Mobility Sit to Supine: independent Bed Mobility Skill: Supine To Sit, Rehab Eval Level Of Harrison: Supine/Sit: moderate assist (50% patients effort) Physical Assist/Nonphysical Assist: Supine/Sit: 1 person assist, verbal cues Assistive Device: Supine/Sit: bed rails Goal Bed Mobility Supine to Sit Supine to Sit STG Status: New STG Bed Mobility Supine to Sit : independent Transfers Transfer Skill: Sit To Stand, Rehab Eval Level Of Harrison: Sit/Stand: minimum assist (75% patients effort) Physical Assist/Nonphysical Assist: Sit/Stand: 1 person assist, verbal cues (from raised be d) Assistive Device For Transfer: Sit/Stand: 2 wheeled walker Goal Transfers Sit to Stand Sit to Stand STG Status: New STG Transfers Sit to Stand : modified independent Gait Gait Skills, PT Eval Level Of Harrison: Gait: contact guard assist (75% patient effort) [...] DM, pelvic inflammatory disease, and hx of NH . Rehab Potential: good, to achieve stated [...] | of hardware for posterior fusion from D1dpmwoms S1 with interbody hardware at L5-S1. | [...] + + | Performing | Address | City/State/[facility] | Phone Number | | Organization [...] + | [facility] | [address] | [place] | [phone] | | [facility] | | [address] | | | - LABORATORY | | [...] Specific | | | | | | Perry, | | | | | | POC | | | | | + + + + + + | Internal QC | Acceptable | | | | + + + + + + | Lot Number | [id number] | | | | + + + [...] [address] | [place] | [phone] | | [facility] | | [address] | | | - LABORATORY | | [...] St | [place] | | | [facility] | | [address] | | | - BLOOD BANK | [...]
--- OUTSIDE RECORDS SUMMARY | ~2020-05-21 | XMS | Encounter Summary ---
Demographics + + + | Address | [address] | | | [place] [address] | + + + | Home Phone [...] Team Providers + +------+ + | Care Ribbon Lapper Tender Name | Role | Phone | [...]
--- OUTSIDE RECORDS SUMMARY | ~2020-05-21 | XMS | Encounter Summary ---
Demographics + + + | Address | [address] | | | [place] [address] | + + + | Home Phone [...] [place] | | | | | [address] | | + + + + + | Pratibha Hester | ECON | Unknown | + | + + + + + | Demian Powell | ECON | Unknown | + | + + + + + Care Team Providers + +------+ + | Care Manager Transfer Name | Role | Phone | + [...] | | [address] | Pressure Dispatcher | | | | | [place] | | | | | | [address] | | | | | | [phone] | | | +--------+--------+ + + + [...] no refills. I called this into the [facility] we have on file. Spoke with [...] before medication runs out: 2 more from [facility] Where is pain located?: Constant nausea Type of pain (constant, intermittent, sharp, dull)?: constant nausea, vertigo Send in the mail or call in to preferred pharmacy? Call in to pharmacy, [facility] in [place] ([phone] or [phone]) She said that at her appointment yesterday [...]
--- OUTSIDE RECORDS SUMMARY | ~2020-05-21 | XMS | Encounter Summary ---
Demographics + + + | Address | [address] | | | [place] [address] | + + + | Home Phone [...] Providers + +------+ + | Care Director Manufacturing Engineering Name | Role | Phone | + [...] | | | | to excess | [facility] | Center for | | | | | calories | Health | Health and | | | | | Obesity, | Center [address] | Healing, | | | | | unspecified | | Building [address] | | | | | | [place] | [place], [place] | | | | | | Way [address] | [address] | | | | | | [address] | Phone: | | | | | | [place], | [phone] | | | | | | [place] [address] | Fax: | | | | | | Phone: | [phone] | | | | | | [phone] | | | | | | | Fax: | | | | | | | [phone] | | +--------+--------+ + + + + [...] | | [address] | [facility] [place] | (Primary Dx); Type 2 | | | | for Health and | [address] | diabetes mellitus | | | | Healing, Building [address] | | with other specified | | | | [place], [place] | | complication, with | | | | [address] | | long-term current | | | | [phone] | | 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 (HCC) | [...] of Visit: 1:55 until 2:40 (45 minutes [id number]-[id number] with patient) SUBJECTIVE: Pt comes in alone. Pt shares she usually skips breakfast but snacks a lot in af ternoons and evenings. Pt shares she eats a lot of pizza and drinks a lot of soda. 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 Will finish in two years. When reviewing [...] shares she has access gym on the [employer] 24 hr food recall: Pt has a [...] Eli Rodas, MS, RDN, CSOWM, LD, CDE [facility] Bariatrics [phone] documented in this e ncounter Plan of [...]
--- OUTSIDE RECORDS SUMMARY | ~2020-05-21 | XMS | Encounter Summary ---
Demographics + + + | Address | [address] | | | [place] [address] | + + + | Home Phone [...] [place] | | | | | [address] | | + + + + + | Pratibha Hester | ECON | Unknown | + | + + + + + | Demian Powell | ECON | Unknown | + | + + + + + Care Team Providers + +------+ + | Care Dental Manager Name | Role | Phone | [...] + + | 02/14/ | Telephone | [facility] | Sascha Mir, | Other | | 2014 | | NEUROSURGERY [address] | DO [address] | | | | | [address] | [address] [place], [place] | | | | | [place] | [id number] | | | | | [address] | | | | | | [phone] | | | +--------+ + + + [...] PDTPatient returned call and left message with [employer] to call back. elephone Encounter - Lenka [...] Rx to go to her [facility] pharmacy Next visit on: 03/07/15 at 1130 [...]
--- OUTSIDE RECORDS SUMMARY | ~2020-05-21 | XMS | Encounter Summary ---
Demographics + + + | Address | [address] [facility] [address] [facility] | | | [place] [address] | + + + | Home Phone [...] [place] | | | | | [address] | | + + + + + | Pratibha Hester | ECON | Unknown | + | + + + + + | Demian Powell | ECON | Unknown | + | + + + + + Care Team Providers + +------+ + | Care Load Checker Name | Role | Phone | + [...] NEUROSURGERY [address] | F, [address] | lumbar region | | | | [address] | [address] [place] | L5-S1; Pars defect | | | | [place] | [address] | of lumbar spine | | | | [address] | [phone] | L5-S1; Degenerative | | | | [phone] | | disc disease, lumbar | | | | | | L4-5; Radiculopathy | | | | | | of lumbar region | | | | | | L5-S1; Morbid | | | | | | obesity ([facility]); | | | | | | Sacroiliitis ([facility]); | | | | | | Trochanteric | | | | | | bursitis; Diabetes | | | | | | mellitus ([facility]); | | | | | | [...] | + + | Sacroiliitis ([facility]) Sacroiliitis, not elsewhere classified | + + | Trochanteric bursitis Enthesopathy of hip region | + + | Diabetes mellitus ([facility]) Type II or unspecified type diabetes mellitus without mention | | of complication, not stated as uncontrolled | + + | Asthma Unspecified asthma | + + documented in this encounter
--- OUTSIDE RECORDS SUMMARY | ~2020-05-21 | XMS | Encounter Summary ---
Demographics + + + | Address | [address] [facility] | | | [place] [address] | + + + | Home Phone [...] [place] | | | | | [address] | | + + + + + | Pratibha Hester | ECON | Unknown | + | + + + + + | Demian Powell | ECON | Unknown | + | + + + + + Care Team Providers + +------+ + | Care Power Barker Operator Name | Role | Phone | + +------+ + | Quentin Manriquez PA-C | MARCK | | + +------+ + Encounter Details +--------+ + + + + | Date | Type | Department | Care Team | Description | +--------+ + + + + | 12/05/ | Hospital | [facility] | Sascha Mir, | Bilateral lumbar | | 2015 | Encounter | MED CTR XRAY [address] | DO [address] | radiculopathy; HIP | | | | [address] | [address] [place], [place] | PAIN, LEFT, CHRONIC; | | | | [place] [address] | [address] | Spondylolisthesis | | | | [phone] | | of lumbar region | | [...] + | [facility] | [address] | [place], [place] | [phone] | | [facility] | | [address] | | | - IMAGING | | [...]
--- OUTSIDE RECORDS SUMMARY | ~2020-05-21 | XMS | Encounter Summary ---
Demographics + + + | Address | [address] | | | [place] [address] | + + + | Home Phone [...] [place] | | | | | [address] | | + + + + + | Pratibha Hester | ECON | Unknown | + | + + + + + | Demian Powell | ECON | Unknown | + | + + + + + Care Team Providers + +------+ + | Care Ice Cream Van Vendor Name | Role | Phone | + +------+ + | Quentin Manriquez PA-C | MARCK | | + +------+ + Encounter Details +--------+ + + + + | Date | Type | Department | Care Team | Description | +--------+ + + + + | 12/05/ | Hospital | [facility] | Sascha Mir, | | | 2014 | Encounter | MED CTR LABORATORY | DO [address] | | | | | [address] | [address] | | | | | [facility] [place] | [id number] | | | | | [address] | | | | | | [phone] | | | +--------+ + + + [...]
--- OUTSIDE RECORDS SUMMARY | ~2020-05-21 | XMS | Encounter Summary ---
Demographics + + + | Address | [address] | | | [place] [address] | + + + | Home Phone [...] [place] | | | | | [address] | | + + + + + | Pratibha Hester | ECON | Unknown | + | + + + + + | Demian Powell | ECON | Unknown | + | + + + + + Care Team Providers + +------+ + | Care Handle Bar Assembler Name | Role | Phone | [...] [address] | [address] [place], [place] | lumbar fusion | | | | [place], [place] | [address] | | | | | [address] | | | | | | [phone] | | | +--------+ + + + [...]
--- OUTSIDE RECORDS SUMMARY | ~2020-05-21 | XMS | Encounter Summary ---
Demographics + + + | Address | [address] | | | [place] [address] | + + + | Home Phone [...] Providers + +------+ + | Care Research Soil Scientist Name | Role | Phone | [...] | Otology Services at | [facility] | | | | | [facility] [address] [place], [place] | | | | | [address] | [address] | | | | | Physician's | | | | | | Pavilion, 2nd floor | | | | | | [place], [place] | | | | | | [address] | | | | | | [phone] | | | +--------+ + + + [...]
--- OUTSIDE RECORDS SUMMARY | ~2020-05-21 | XMS | Encounter Summary ---
Demographics + + + | Address | [address] | | | [place] [address] | + + + | Home Phone [...] [place] | | | | | [address] | | + + + + + | Pratibha Hester | ECON | Unknown | + | + + + + + | Demian Powell | ECON | Unknown | + | + + + + + Care Team Providers + +------+ + | Care Restaurant Host Name | Role | Phone | + +------+ + | Quentin Manriquez PA-C | MARCK | | + +------+ + Encounter Details +--------+ + + + + | Date | Type | Department | Care Team | Description | +--------+ + + + + | 09/19/ | Abstract | [facility] | Sascha Mir, | | | 2014 | | NEUROSURGERY [address] | DO [address] | | | | | [address] [facility] [address] | [address] [place], [place] | | | | | [place], [place] | [address] | | | | | [address] | | | | | | [phone] | | | +--------+ + + + [...]
--- OUTSIDE RECORDS SUMMARY | ~2020-05-21 | XMS | Encounter Summary ---
Demographics + + + | Address | [address] | | | [place] [address] | + + + | Home Phone [...] [place] | | | | | [address] | | + + + + + | Pratibha Hester | ECON | Unknown | + | + + + + + | Demian Powell | ECON | Unknown | + | + + + + + Care Team Providers + +------+ + | Care Abstractor Name | Role | Phone | + [...] [address] | | | | | [place], [place] | [place] [address] | | | | | [address] | [phone] | | | | | [phone] | | | +--------+--------+ + + + [...]
--- OUTSIDE RECORDS SUMMARY | ~2020-05-21 | XMS | Encounter Summary ---
Demographics + + + | Address | [address] | | | [place] [address] | + + + | Home Phone [...] [place] | | | | | [address] | | + + + + + | Pratibha Hester | ECON | Unknown | + | + + + + + | Demian Powell | ECON | Unknown | + | + + + + + Care Team Providers + +------+ + | Care Heart Coordinator Name | Role | Phone | [...] | Sascha Armendariz DO | [address] | | | | | Spondylolist | [address] | [place], | | | | | hesis of | [address] | [place] | | | | | lumbar | [place] | [address] | | | | | region S/P | [address] | Phone: | | | | | lumbar | Phone: | [phone] | | | | | fusion | [phone] | Fax: | | | | | Procedures | Fax: | [phone] | | | | | MRI Lumbar | [phone] | | | | | | Spine [...] | Sascha Armendariz DO | [address] | | | | | radicular | [address] | [place], | | | | | pain | [address] | [place] | | | | | Procedures | [place] | [address] | | | | | MRI Cervical | [address] | Phone: | | | | | Spine wo | Phone: | [phone] | | | | | Contrast | [phone] | Fax: | | | | | | Fax: | [phone] | | | | | | [phone] | | +--------+--------+ + + + + Reason for Visit + + + | Reason | Comments | + + + | Follow-up | 3-month post-op | + + + Encounter Details +--------+---------+ + + + | Date | Type | Department | Care Team | Description | +--------+---------+ + + + | 03/17/ | Office | [facility] | Sascha Mir, | Spondylolisthesis of | | 2015 | Visit | NEUROSURGERY [address] | DO [address] | lumbar region | | | | [address] | [address] [place], [place] | (Primary Dx); S/P | | | | [place], [place] | [id number] | lumbar fusion; | | | | [address] | | Cervical radicular | | | | [phone] | | pain | +--------+---------+ + + [...] [address] [facility], [address] [place] [address] FAX: NEUROSURGERY FOLLOW-UP CHIEF COMPLAINT: Chief Complaint [...]
--- OUTSIDE RECORDS SUMMARY | ~2020-05-21 | XMS | Encounter Summary ---
Demographics + + + | Address | [address] | | | [place] [address] | + + + | Home Phone [...] Team Providers + +------+ + | Care Liner Roll Changer Name | Role | Phone | + [...]
--- OUTSIDE RECORDS SUMMARY | ~2020-05-21 | XMS | Encounter Summary ---
Demographics + + + | Address | [address] | | | [place] [address] | + + + | Home Phone [...] [place] | | | | | [address] | | + + + + + | Pratibha Hester | ECON | Unknown | + | + + + + + | Demian Powell | ECON | Unknown | + | + + + + + Care Team Providers + +------+ + | Care Healthcare Financial Analyst Name | Role | Phone | [...] [address] | [address] [place], [place] | intervertebral disc | | | | [place], [place] | [address] | without myelopathy | | | | [address] | | (Primary Dx) | | | | [phone] | | | +--------+ + + + [...] Spine 4 + Vw (09/26/2014 9:21 AM [facility]) + + | Specimen | + + | | + + + + + | Narrative | Performed At | + + + | EXAM: XR LUMBAR SPINE 4 + VW dated 09/26/2014 8:51 AM | [facility] | | HISTORY:Back pain COMPARISON: MRI from [facility] dated | [facility] | | June 25, 2014 and [...] | 09/26/2014 8:51 AMHISTORY:Back painCOMPARISON: MRI from [facility] dated | | June 25, [...] [address] | [place] | [phone] | | [facility] | | [address] | | | - IMAGING | | | | + + + + + documented in this encounter Visit Diagnoses + + | Diagnosis | + + | 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
--- OUTSIDE RECORDS SUMMARY | ~2020-05-21 | XMS | Encounter Summary ---
Demographics + + + | Address | [address] [facility] | | | [place] [address] | + + + | Home Phone [...] [place] | | | | | [address] | | + + + + + | Pratibha Hester | ECON | Unknown | + | + + + + + | Demian Powell | ECON | Unknown | + | + + + + + Care Team Providers + +------+ + | Care Pet Groomer Name | Role | Phone | + [...] [address] | [address] [place], [place] | | | | | [place] | [address] | | | | | [address] | | | | | | [phone] | | | +--------+--------+ + + + [...]
--- OUTSIDE RECORDS SUMMARY | ~2020-05-21 | XMS | Encounter Summary ---
Demographics + + + | Address | [address] [facility] | | | [place] [address] | + + + | Home Phone [...] [place] | | | | | [address] | | + + + + + | Pratibha Hester | ECON | Unknown | + | + + + + + | Demian Powell | ECON | Unknown | + | + + + + + Care Team Providers + +------+ + | Care Acid Blower Name | Role | Phone | + [...] [address] | [address] [place], [place] | (Primary Dx); HIP | | | | [place], [place] | [address] | PAIN, LEFT, CHRONIC; | | | | [address] | | Spondylolisthesis | | | | [phone] | | of lumbar region | | [...] mediastinal contours are within normal limits. The [facility] | | lungs are clear, [...] + | [facility] | [address] | [place] | [phone] | | [facility] | | [address] | | | - IMAGING | | [...] [address] | [place] | [phone] | | [facility] | | [address] | | | - LABORATORY | | [...] + | [facility] | [address] | [place] | [phone] | | [facility] | | [address] | | | - LABORATORY | | [...] 11 | 7 - 18 mg/dL | [facility] | | | | | | [facility] | | | | | | MEDICAL | | | | | | CENTER - | | | | | | LABORATORY | | + + + + + + | Creatinine | 0.71 | 0.60 - 1.30 | [facility] | | | | | mg/dL | [facility] | | | | | | MEDICAL | | | | | | CENTER - | | | | | | LABORATORY | | + + + + + + | eGFR, | >60Comment: GLOMERULAR | >=60 | [facility] | | | non- | FILTRATION | mL/min/1.73m2 | [facility] | | | Croatian | RATE,ESTIMATED | | MEDICAL | | | | mL/min/1.60m8Byee than | | CENTER - | | [...] + | [facility] | [address] | [place] | [phone] | | [facility] | | [address] | | | - LABORATORY | | [...] + | [facility] [facility] | [address] | [place], [place] | [phone] | | [facility] | | [address] | | | - LABORATORY | | [...]
--- OUTSIDE RECORDS SUMMARY | ~2020-05-21 | XMS | Encounter Summary ---
Demographics + + + | Address | [address] | | | [place] [address] | + + + | Home Phone [...] [place] | | | | | [address] | | + + + + + | Pratibha Hester | ECON | Unknown | + | + + + + + | Demian Powell | ECON | Unknown | + | + + + + + Care Team Providers + +------+ + | Care Christmas Tree Farm Worker Name | Role | Phone | + +------+ + | Quentin Manriquez PA-C | MARCK | | + +------+ + Encounter Details +--------+ + + + + | Date | Type | Department | Care Team | Description | +--------+ + + + + | 09/26/ | Hospital | [facility] | Sascha Mir, | Displacement of | | 2014 | Encounter | MED CTR XRAY [address] | DO [address] | lumbar | | | | [place] | [address] | intervertebral disc | | | | [place] [address] | [phone] | without myelopathy | | | | [phone] | | | +--------+ + + + [...] | | HISTORY:Back pain COMPARISON: MRI from [facility] dated | [facility] | | June 25, 2014 [...] | 09/26/2014 8:51 AMHISTORY:Back painCOMPARISON: MRI from [facility] dated | | June 25, 2014 and [...] + | [facility] | [address] | [place] | [phone] | | [facility] | | [address] | | | - IMAGING | | | | + + + + + documented in this encounter Visit Diagnoses + + | Diagnosis | + + | Displacement of lumbar intervertebral disc without myelopathy | + + documented in this encounter"
--- OUTSIDE RECORDS SUMMARY | ~2020-05-21 | XMS | Encounter Summary ---
Demographics + + + | Address | [address] | | | [place] [address] | + + + | Home Phone | | + + + | Preferred Language | Unknown | + + + | Marital Status | Single | + + + | Pentecostalism Affiliation | [id number] | + + + [...] [place] | | | | | [address] | | + + + + + | Pratibha Hester | ECON | Unknown | + | + + + + + | Demian Powell | ECON | Unknown | + | + + + + + Care Team Providers + +------+ + | Care Spinner Cap Frame Name | Role | Phone | + +------+ + PCP | Unavailable | + +------+ + Encounter Details +--------+ + + + + | Date | Type | Department | Care Team | Description | +--------+ + + + + | 09/20/ | Hospital | [facility] | Laz Del Valle, | | | 2005 | Encounter | MED CTR GENERIC OP | MD [address] | | | | | CONV DEPT [address] | [address] | | | | | [place], | [place] [address] | | | | | [place] [address] | [phone] | | | | | [phone] | | | +--------+ + + + [...]
--- OUTSIDE RECORDS SUMMARY | ~2020-05-21 | XMS | Encounter Summary ---
Demographics + + + | Address | [address] | | | [place] [address] | + + + | Home Phone [...] Providers + +------+ + | Care Manager Sharepoint Name | Role | Phone | + +------+ + | Gracie Lewis PA-C | PCP | | + +------+ + Encounter Details +--------+ + + + + | Date | Type | Department | Care Team | Description | +--------+ + + + + | 04/24/ | Abstract | [facility] | Clinic, Surgery | | | 2019 | | [place] [address] | | | | | | [facility] | | | | | | for Health and | | | | | | Healing, [address] | | | | | | [place], [place] | | | | | | [address] | | | | | | [phone] | | | +--------+ + + + [...]
--- OUTSIDE RECORDS SUMMARY | ~2020-05-21 | XMS | Encounter Summary ---
Demographics + + + | Address | [address] | | | [place] [address] | + + + | Home Phone [...] [place] | | | | | [address] | | + + + + + | Pratibha Hester | ECON | Unknown | + | + + + + + | Demian Powell | ECON | Unknown | + | + + + + + Care Team Providers + +------+ + | Care Rda Name | Role | Phone | + +------+ + | Quentin Manriquez PA-C | MARCK | | + +------+ + Encounter Details +--------+ + + + + | Date | Type | Department | Care Team | Description | +--------+ + + + + | 12/05/ | Preadmit | [facility] | Sascha Mir, | Bilateral lumbar | | 2015 | Visit | MED CTR PREADMIT | DO [address] | radiculopathy; HIP | | | | CLINIC [address] | [address] [place], [place] | PAIN, LEFT, CHRONIC; | | | | [place], [place] | [address] | Spondylolisthesis | | | | [address] | | of lumbar region | | [...] [address] | [place] | [phone] | | [facility] | | [address] | | | - LABORATORY | | [...] [address] | [place] | [phone] | | [facility] | | [address] | | | - LABORATORY | | [...] 11 | 7 - 18 mg/dL | [facility] | | | | | | [facility] | | | | | | MEDICAL | | | | | | CENTER - | | | | | | LABORATORY | | + + + + + + | Creatinine | 0.71 | 0.60 - 1.30 | [facility] | | | | | mg/dL | [facility] | | | | | | MEDICAL | | | | | | CENTER - | | | | | | LABORATORY | | + + + + + + | eGFR, | >60Comment: GLOMERULAR | >=60 | [facility] | | | non- | FILTRATION | mL/min/1.73m2 | [facility] | | | Chinese | RATE,ESTIMATED | | MEDICAL | | | | mL/min/1.10t9Taso than | | CENTER - | | [...] + | [facility] | [address] | [place] | [phone] | | [facility] | | [address] | | | - LABORATORY | | [...] ST. | [address] | [place] | [phone] | | [facility] | | [address] | | | - LABORATORY | | [...]
--- OUTSIDE RECORDS SUMMARY | ~2020-05-21 | XMS | Encounter Summary ---
Demographics + + + | Address | [address] [facility] | | | [place] [address] | + + + | Home Phone [...] + + + | Author | [facility] | | | and [place] | + + + | Organization | [facility] | | | and [...] [place] | | | | | [address] | | + + + + + | Pratibha Hester | ECON | Unknown | + | + + + + + | Demian Powell | ECON | Unknown | + | + + + + + Care Team Providers + +------+ + | Care Caster Operator Name | Role | Phone | [...] + | 12/17/ | Telephone | [facility] | Sascha Mir, | Medication | | 2015 | | NEUROSURGERY [address] | DO [address] | Management | | | | [address] | [address] [place] | | | | | [place] | [phone] | | | | | [address] | | | | | | [phone] | | | +--------+ + + + [...] - 12/20/2014 8:27 AM PDTCalled Pharmacy at [phone] to fill Rx of gabapentin 300mg capsule, [...] her legs but wasn't sent [facility] the [facility] with this medication. I didn't see any [...] from when she was admitted here at [facility] were transferred to the facility she is now at. She could not remember which medications these were, but states that they were for the n erves in her legs and for her stomach/heartburn and we prescribed by Dr. Mir. She is admi tted at [facility] in [place]. Please advise.Electronically signed by Karis Nunez at 0 12/17/2014 2:03 PM PDTdocumented in this encounter Plan of Treatment Not on filedocumented as of this encounter Visit Diagnoses Not on filedocumented in this encounter"
--- OUTSIDE RECORDS SUMMARY | ~2020-05-21 | XMS | Encounter Summary ---
Demographics + + + | Address | [address] | | | [place] [address] | + + + | Home Phone [...] Team Providers + +------+ + | Care Sociology Professor Name | Role | Phone | [...] on | Otology Services at | [facility] | | | | | [facility] [address] [place], [place] | | | | | [address] | [address] | | | | | Physician's | | | | | | Pavilion, 2nd floor | | | | | | [place], [place] | | | | | | [address] | | | | | | [phone] | | | +--------+ + + + [...]
--- OUTSIDE RECORDS SUMMARY | ~2020-05-21 | XMS | Encounter Summary ---
Demographics + + + | Address | [address] | | | [place] [address] | + + + | Home Phone [...] [place] | | | | | [address] | | + + + + + | Pratibha Hester | ECON | Unknown | + | + + + + + | Demian Powell | ECON | Unknown | + | + + + + + Care Team Providers + +------+ + | Care Manager Book Name | Role | Phone | + [...] [address] | [address] [place], [place] | intervertebral disc | | | | [place], [place] | [address] | without myelopathy | | | | [address] | | (Primary Dx) | | | | [phone] | | | +--------+ + + + [...]
--- OUTSIDE RECORDS SUMMARY | ~2020-05-21 | XMS | Encounter Summary ---
Demographics + + + | Address | [address] [facility] | | | [place] [address] | + + + | Home Phone [...] [place] | | | | | [address] | | + + + + + | Pratibha Hester | ECON | Unknown | + | + + + + + | Demian Powell | ECON | Unknown | + | + + + + + Care Team Providers + +------+ + | Care Beater Lead Name | Role | Phone | [...] | | | spondylolist | | [place] | | | | | hesis | | [place], | | | | | Acquired | | [place] [address] | | | | | spondylolist | | Phone: | | | | | hesis | | [phone] | | | | | Procedures | | Fax: | | | | | [place] | | [phone] | | | | | POST/POSTERO | [...] + + | 12/12/ | Hospital | [facility] | Sascha Mir, | | | 2015 - | Encounter | MED CTR SURGICAL | DO [address] | | | | | [address] [place] | [address] | | | 12/16/ | | [place] [address] | [address] | | | 2014 | | [phone] | | | +--------+ + + + [...] of admission the patient was admitted to [facility] and underwent a L5-S1 fusion . [...] ultimately discharged to [facility]. Medications Reconciled upon Discharge are: Discharge Medications [...] Discharge: Stable Disposition: Patient was discharged to [facility]. Follow-Up Plans: Follow-up with: Dr. Mir's office in 4 weeks Follow-up with primary care physician as needed. Diet: Resume regular diet Activity: Continue to follow guidelines and precautions as previously discussed. Electronically signed by: Amol Triplett, 12/16/2014 7:45 [facility] documented in this encounter Discharge Instructions [...] might be different f rom the original. [facility] NEUROSURGERY PROGRESS NOTE Pt. Name/Age/: [...] surgery. She is reay to go [facility] in [place]. No further C/C OBJECTIVE: Patient Vitals for [...] Electronically signed by: Amol Triplett, 12/16/2014 7:36 [facility] S[facility] Beck DO - 12/15/2014 9:20 AM PDT Subjective The patient was seen and examined by me today. She complains of of left tingling - improved from numbness, and left leg dysesthesia. Her l egs feel strong. Moderate surgical pain, but tolerable. She would like to go to SNF in [facility] et before discharge home. Objective [...] would like to go to SNF in [facility] before discharge home. Objective Filed [...] Range POC Test, Urine Negative POC Specific Mears Internal QC Acceptable Lot Number [id number] Expiration Date POC GLUCOSE Result Value Ref Range POC Glucose 125 70-150 mg/dL Level of consciousness: Alert and orientated to person, place, and time. Motor: Moving all extremities well. Sensations: Left arm and leg dysesthesia. Incision: Dressing is clean, dry, and intact. JENNIFER 51 mL Assessment Demain Nina is a 44 y.o. y.o. female s/p TLIF L5-S1 postoperative day # 1. Plan -Increase diet/activity -PT/OT -Pain control -DVT prophylaxis -DC plan: depends on progress. Likely ready for DC 1-2 days. documented in this en counter H&P Notes Sascha Mir DO - 12[facility]12/2014 9:[facility] AND PHYSICAL [...] Electronically signed by: Sascha Mir, 12/12/2014 9:09 [facility] Sascha Beck DO - 12/12/2014 9:09 AM PDT [address] [facility], [address] [place] [address] FAX: NEUROSURGERY HISTORY AND PHYSICAL [...] has no apparent deficits with short or insurance adjustor memory. CRANIAL NERVES: II: Acuity is intact. [...] 12/16/2014 9:22 AM PDTTalked with Rene @ [facility], she will run the Insurance and call back. I informed her that we do have discharge orders. Electronically signed by: Yue Wing 12/16/2014 9:23 Rene called back, they can accept Demian today. Faxed orders, PASRR, discharge summary and RX to [facility]. Received the "Communication result report" (result OK) Packet is ready. Demian will call her mom for a ride. Received a call from Laura felix, requesting the SNF orders to be faxed to [phone]. Faxed. Received "communication result report" (result ok) NF Transfer - Dash Triplett PA - 12/16/2014 7:43 AM PDTFormatting of this note might be different from the orig inal. [facility] TRANSFER ORDERS Patient Name: Demian Nina Patient : 1970 Gender: female Date of Admission: 12/12/2014 Date of Discharge: 12/16/2014 Admitting Provider: Sascha Mir DO Discharging Provider: ANNETTE Gutierrez Consultants: none PCP: Quentin Manriquez [facility] transferring to: [facility] Provider after transfer: PCP and [facility] MD CODE STATUS: [x] Attempt CPR [] Do not resuscitate If patient is pulseless and not breathing, RN/STRAIGHT TRUCK DRIVER may pronounce . Advanced Directives included: [] [...] HPV, QUADRIVALENT, 3 DOSE (ADOL/ADULT) 05/18/2013 INFLUENZA, [id number], ALL FORMULATIONS 08/05/2009 INFLUENZA, HIGH DOSE SEASONAL (ADULT) 05/07/2014 PNEUMOCOCCAL, UNSPECIFIED FORMULATION 07/07/2010 Diet: [x] As tolerated WOOD FLOUR MILLER may upgrade or downgrade diet as condition Indicates. [x] RN may downgrade diet as indicated. Type: [] Continue current diet of: Diet and Supplements Diet DIET GENERAL Number of Occurrences: Until Specified [] Other: Consistency/Precautions: [] Whole [] Thin Liquids [] Cut-up [] Wilder Thick [] Advanced Chopped [] Honey Thickened [] Chopped [] Advanced Ground [] 1:1 feedings [] Ground/Pureed [] Other: Tube Feedings: [] PEG [] GT [] JT [] NGT [] Formula type: (Waste Water Operator may change/substitute if indicated). [] Continuous Rate: [...] [x] OT Evaluation & Management for: [] WOOD FLOUR MILLER Evaluation &Management for: [] Other: Wound/Skin Care: [...] I, ANNETTE Gutierrez, certify that post hospital detention care is medically nece ssary on a continuing basis for any of the conditions for which he/she received care during this hospitalization. Check one: [x] Skilled [] Intermediate Additional Orders/Instructions: Physician's signature: Amol Triplett PA-C_12/16/2014 7:43 [facility] USE ONLY: [] Admitting orders [...] later today t o a rehab in [facility]. Electronically signed by: Giana Rausch RRT 12/16/2014 [...] the same. Pt plans to go to [facility] for a few days if possible prior [...] with family/caregiver after short term rehab at [facility] Post discharge physical therapy recommendation: outpatient therapy (when ordered by Dr. Dr alcocer) Plan for next treatment: 1P;KH;check on pt prior to planned d/c to [facility] tomorrow . Electronically signed by: Nuvia Dove PT, 12/15/2014 15:18 lan of Care - Yue Tinsley - 12/15/2014 10:35 AM PDTDischarge Planning: Demian would like to go to [facility] for a short stay prior to going home. She signed the "SNF options form" Placed the signed form in the ghost chart. Faxed referral to [facility]. Received the "Communication result Report" (Result ok) place d the fax in the ghost chart. Will need prior auth from her Insurance company prior to discharge. Demian will be ready for discharge tomorrow. Her mother will transport her at discharge. 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 Donned underwear w/o use of change room attendant but may benefit to increase ease. 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 Tolerated standing @ sink to brush [...] Recommendations: shower chair, tub bench, sock aide, change room attendant, front wheeled walk er Planned Interventions:Planned Therapy [...] Given this morning with improvement. lan of [facility] Nuvia espinosa, PT - 12/13/2014 [...] tin gling to left leg and foot. Chief Embalmer strong, right foot stong, but left foot [...] lan of Care - P Rekha mendez, WEBFOCUS DEVELOPER - 12/12/2014 9:30 PM PDTProblem: General Plan of Care (Adult, Obstetric s) Goal: Care Plan Shift Summary & Review . Outcome: Progressing BS clear. Patient achieving 2500 of Predicted Level (mL)(Incentive Spirometer): 2300. SpO 2: 95 % on 3liters/minute nasal cannula. Will continue to monitor. p Note - Sascha Mir DO - 12/12/2014 6:49 PM PDTDATE: 12/12/2014 SURGEON: Sascha Mir DO. BATCHING OPERATOR: None. PREOPERATIVE DIAGNOSES 1. Spondylolisthesis, L5-S1. 2. [...] 26 mm Ti-coated Capstone PEEK cage from [employer] was chosen. It was filled with Infuse [...] Note Demian Nina 44 y.o. female 1970 [id number] Proc. Date 12/12/2014 Preop Dx Acquired spondylolisthesis Postop Dx same Procedure Procedure(s):L5-S1 Transforaminal Lumbar Interbody Fusion Anesthesia General Surgeon Surgeon(s) and Role: * Sascha Mir DO - Primary Fire Support Specialist NA EBL 100 mL Findings Findings consistent [...] by: Sascha Mir DO 12/12/2014 18:48 [facility] lan of Rekha Walsh RRT - [...] Sit To Supine, Rehab Eval Level Of Desha: Sit/Supine: moderate assist (50% patients effort) Physical Assist/Nonphysical Assist: Sit/Supine: 1 person assist, verbal cues Assistive Device: Sit/Supine: bed rails Goal Bed Mobility Sit to Supine Sit to Supine STG Status: New STG Bed Mobility Sit to Supine: independent Bed Mobility Skill: Supine To Sit, Rehab Eval Level Of Desha: Supine/Sit: moderate assist (50% patients effort) Physical Assist/Nonphysical Assist: Supine/Sit: 1 person assist, verbal cues Assistive Device: Supine/Sit: bed rails Goal Bed Mobility Supine to Sit Supine to Sit STG Status: New STG Bed Mobility Supine to Sit : independent Transfers Transfer Skill: Sit To Stand, Rehab Eval Level Of Desha: Sit/Stand: minimum assist (75% patients effort) Physical Assist/Nonphysical Assist: Sit/Stand: 1 person assist, verbal cues (from raised be d) Assistive Device For Transfer: Sit/Stand: 2 wheeled walker Goal Transfers Sit to Stand Sit to Stand STG Status: New STG Transfers Sit to Stand : modified independent Gait Gait Skills, PT Eval Level Of Desha: Gait: contact guard assist (75% patient effort) [...] DM, pelvic inflammatory disease, and hx of IA . Rehab Potential: good, to achieve stated [...] | of hardware for posterior fusion from I0sgxmwyn S1 with interbody hardware at L5-S1. | [...] [address] | [place] | [phone] | | [facility] | | [address] | | | - LABORATORY | | [...] Specific | | | | | | Mears, | | | | | | POC | | | | | + + + + + + | Internal QC | Acceptable | | | | + + + + + + | Lot Number | [id number] | | | | + + + [...] ST. | [address] | [place], [place] | [phone] | | [facility] | | [address] | | | - LABORATORY | | [...] ST. | [address] | [place], [place] | | | [facility] | | [address] | | | - BLOOD BANK | [...] | | | | | | | [facility] 12/12/14 at 1500, For 2 doses, [...] PDT | | | | | Starting [facility] 12/12/14 at 1433, | | | [...] PDT | | | | | Starting [facility] 12/12/14 at 1433, | | | [...]
--- OUTSIDE RECORDS SUMMARY | ~2020-05-21 | XMS | Encounter Summary ---
Demographics + + + | Address | [address] | | | [place] [address] | + + + | Home Phone [...] Phone | + + +---------+ + | Aliisa Nina | ECON | Unknown | | + + +---------+ + Care Team Providers + +------+ + | Care Weaver Tire Cord Name | Role | Phone | + +------+ + | Gracie Lewis PA-C | PCP | | + +------+ + Encounter Details +--------+ + + + + | Date | Type | Department | Care Team | Description | +--------+ + + + + | 04/25/ | Documentati | [facility] | Clinic, Surgery | | | 2019 | on | Center at [facility] [address] | | | | | | [address] [facility] | | | | | | for Health and | | | | | | Healing, [address] | | | | | | [place], [place] | | | | | | [address] | | | | | | [phone] | | | +--------+ + + + [...]
--- OUTSIDE RECORDS SUMMARY | ~2020-05-21 | XMS | Encounter Summary ---
Demographics + + + | Address | [address] | | | [place] [address] | + + + | Home Phone [...] Providers + +------+ + | Care Box Strapper Name | Role | Phone | + [...] | | | [address] | [place], [place] | | | | | Physician's | [address] | | | | | Pavilion, 2nd floor | [phone] | | | | | [place], [place] | | | | | | [address] | | | | | | [phone] | | | +--------+ + + + [...] Notes Telephone Encounter - KohliRay mendenhall - 06/24/2015 3:33 PM PSTLVM [facility] not [facility] own [facility]. I let her know that [employer] will not authorize her to return. I recommended she follow up with PCP for further treatment/eval and perhaps they ca n get something authorized in the future. Electronically signed by Ray Kohli at 2014 3:33 PM PSTTelephone Encounter - Winyd Mclean MD - 06/24/2015 9:02 AM PSTICD- 10 for dizziness is R42. If [employer] does not authorize testing we will never find out if she mendoza s a more specific diagnosis. If [employer] continues to deny vestibular testing, please inform patient that we cannot see her and direct her complaint to [employer]. elephone Encounter - Ray Kohli - 06/24/2015 8:43 AM PSTOMAP will not authorize her to come here for testing with that diagnosis code. Is there a more specific d iagnose code in ICD-10 we could try using? They said R22 was too general? Electronically sig chary by Ray Kohli at 06/24/2015 8:53 AM PSTTelephone Encounter - Windy Mclean MD - 06/20/2015 10:11 PM PSTICD-10 for dizziness is [id number] signed by Windy Armas MD at 06/20/2015 10:12 PM PSTTelephone Encounter - SeunoNellebeatriz Rodriguez - 06/20/2015 4: 42 PM PSTSpoke with Nancy at [facility]. She says that we need an ICD-10 Code. Auth was requeste d initially under ICD-9. Dr. Temple - can you provide the appropriate ICD-10 code for the patient's dizziness? Once we have an Updated ICD 10 code, as long as it pairs with the CPT codes for office visit/testin g we should be okay to schedule her. Thanks! elephone Encount hans - JovanniDexterce - 06/20/2015 4:28 PM PSTFormatting of this note might be different from e original. Please advise for Ray if this is [...] time so I left a voicemail. [facility] Ray Rodriguez - 06/20/2015 3:36 PM PSTI've been working on insurance authorization for this patient for 6+ months with no success (Dr. Temple wanted to order vestibular testing b ack in December). Patient just called in and said that yesterday she lost hearing for a few momen ts and felt light headed before she then had her hearing return. Is this an urgent matter th at patient needs to be seen for? If so can Dr. Temple let me know so I can request an urgent PA that they might approve more quickly? I called them just now to see if there's any update o n PA but they are only taking voicemails at this time so I left a voicemail. documented in this encounter Plan of Treatment Not on filedocumented as of this encounter Visit Diagnoses Not on filedocumented in this encounter"
--- OUTSIDE RECORDS SUMMARY | ~2020-05-21 | XMS | Encounter Summary ---
Demographics + + + | Address | [address] | | | [place] [address] | + + + | Home Phone [...] [place] | | | | | [address] | | + + + + + | Pratibha Hester | ECON | Unknown | + | + + + + + | Demian Powell | ECON | Unknown | + | + + + + + Care Team Providers + +------+ + | Care Service Administrator Name | Role | Phone | [...] | | | | S/P lumbar | [id number] | | | | | | fusion | Phone: | | | | | | | [phone] | | | | | | | Fax: | | | | | | | [phone] | | +--------+ + + + + [...] | | | | | radicular | [address] | [address] Phone: | | | | | pain | Phone: | [phone] | | | | | | [phone] | Fax: | | | | | | Fax: | [phone] | | | | | | [phone] | | +--------+ + + + + + Encounter Details +--------+---------+ + + + | Date | Type | Department | Care Team | Description | +--------+---------+ + + + | 07/22/ | Office | [facility] | Roger Triplett | Chronic low back | | 2014 | Visit | PHYSIATRY [address] | TMD [address] | pain (Primary Dx); | | | | [address] | [place] | Lumbar | | | | [place] | [address] | radiculopathy; S/P | | | | [address] | | lumbar fusion; | | | | [phone] | | Sacroiliitis; Morbid | | | | | | obesity due to | | | | | | excess calories | | | | | | ([facility]) | +--------+---------+ + + + Social History [...] 8:21 AM PST Roger Triplett MD [address] [facility], [address] [place], [place] [id number] FAX: PHYSICAL MEDICINE AND REHABILITATION H&P CHIEF [...] no apparent deficits with short or exterminator memory. She has appropriate fund of [...]
--- OUTSIDE RECORDS SUMMARY | ~2020-05-21 | XMS | Encounter Summary ---
Demographics + + + | Address | [address] | | | [place] [address] | + + + | Home Phone [...] Team Providers + +------+ + | Care Microfilm Equipment Inspector Name | Role | Phone | [...] | | | | | | | [place] | | | | | | | COLONOSCOPY, | | | | | | | FLEX, | | | | | | | W/BIOPSY [place] | | | | | | | UPPER GI | | | | | | | ENDOSCOPY,BI | | | | | | | OPSY [place] | | | | | | | ANES UPR LWR | | | | | | | GI NDSC PX | | | +--------+--------+ + + + + Encounter Details +--------+ + + + + | Date | Type | Department | Care Team | Description | +--------+ + + + + | 01/08/ | Anesthesia | [facility] | Amy King MD | | | 2019 | Event | [facility] [address] | [address] | | | | | [facility] | [address] [place], | | | | | Health and Healing, | [place] [address] | | | | | [address] | [phone] | | | | | [place], [place] | | | | | | [address] | [place] | | | | | [phone] | W, FITTING ROOM ASSOCIATE [address] | | | | | | [address] | | | | | | [place], [place] | | | | | | [address] | | | | | | [phone] | | | | | | | [...] King MD - 01/09/2020 10:02 AM PDT [place] Gu[place] [id number] Vitals Value Taken Time BP 118/75 01/09/2020 [...] be different from the original. Demian Montoyarera [id number] Allergies Allergen Reactions Procainamide Hcl Anaphylaxis Allergic [...] day prior to colonoscopy as directed by [facility]. Discard rem aining half jug. Indications: Bowel Evacuation TERBINAFINE HCL 250 MG TABLET Take 250 mg by mouth once daily. VICTOZA 2-LAUREANO 0.6 MG/0.1 ML (18 MG/3 ML) SUBCUTANEOUS PEN INJECTOR WIXELA INHUB 250 MCG-50 MCG/DOSE POWDER FOR INHALATION inhale 1 puff by mouth twice a day No results found for: RATE, ATRIALRATE, [place], QRS, QT, QTC, PAXIS, RAXIS, TAXIS, EKGDX [...] Within Defined Limits except as noted below Urology/Hired Worker: Within Defined Limits except as noted below [...]
--- OUTSIDE RECORDS SUMMARY | ~2020-05-21 | XMS | Encounter Summary ---
Demographics + + + | Address | [address] | | | [place] [address] | + + + | Home Phone [...] [place] | | | | | [address] | | + + + + + | Pratibha Hester | ECON | Unknown | + | + + + + + | Demian Powell | ECON | Unknown | + | + + + + + Care Team Providers + +------+ + | Care Active Directory Architect Name | Role | Phone | [...] + | 12/23/ | Telephone | [facility] | Sascha Mir, | Other (Medication | | 2014 | | NEUROSURGERY [address] | DO [address] | request) | | | | [facility] [address] | [address] [place] | | | | | [place] | [address] | | | | | [address] | | | | | | [phone] | | | +--------+ + + + [...] the responsibility over to the m. eleElina Morriosn Cert MA - 12/24/2014 8:41 AM PDTLavon [...] PDTPatient returned call and left message via [employer] service to call back. elephone Encounter - Elina Noonan Cert MA - 12/23/2014 4:04 PM PDTCall returned to samy saenz LVM [email or web address] signed by Bhanu Matias MA at 12/23/2014 4:04 PM PDTTelephone Encounter - Melida Lindquist - 12/23/2014 1:43 PM PDTPatient returned call. elephone Encounter - Elina Noonan Cert MA - 12/23/2014 9:23 AM PDTReturned call to patient. LVM. Requested call back. ELINA NOONAN elephone Encounte Melida Parikh - 12/23/2014 9:16 AM PDTPatient left message via OVIA: "Plea se call. I want to switch to fentanyl patch instead of percocet." documented in this encounter Plan of Treatment Not on filedocumented as of this encounter Visit Diagnoses Not on filedocumented in this encounter
--- OUTSIDE RECORDS SUMMARY | ~2020-05-21 | XMS | Encounter Summary ---
Demographics + + + | Address | [address] | | | [place] [address] | + + + | Home Phone [...] [place] | | | | | [address] | | + + + + + | Pratibha Hester | ECON | Unknown | + | + + + + + | Demian Powell | ECON | Unknown | + | + + + + + Care Team Providers + +------+ + | Care Orthotist Prosthetist Name | Role | Phone | + [...] [address] | [address] [place], [place] | her that I mailed | | | | [place] | [address] | her prescriptions | | | | [address] | | certified mail | | | | [phone] | | today.) | +--------+ + + [...] Telephone Encounter - Lenka Mann [facility] [place] [facility] 911 - 2015 9:25 AM PDTCalled patient to inform her I mailed her prescriptions. Patient verbalized Jono wesley signed by Lenka Mann [facility] [place] [facility] at 2015 9:25 AM PDTdocumented in this encounter Plan of Treatment Not on filedocumented as of this encounter Visit Diagnoses Not on filedocumented in this encounter"
--- OUTSIDE RECORDS SUMMARY | ~2020-05-21 | XMS | Encounter Summary ---
Demographics + + + | Address | [address] | | | [place] [address] | + + + | Home Phone [...] [place] | | | | | [address] | | + + + + + | Pratibha Hester | ECON | Unknown | + | + + + + + | Demian Powell | ECON | Unknown | + | + + + + + Care Team Providers + +------+ + | Care Compensation And Benefits Administrator Name | Role | Phone | [...] [place] | | | | | [address] | [address] | | | | | [phone] | | | +--------+ + + + [...]
[~2020-05-21 20:47] MED LIST changes: +CERAVE453 GM TOP; +COMBIVENT RESPIM4 GM PO; +COZAAR25 MG PO; +DEXAMETHASONE4 MG PO; +MULTIVITAMINS1 EAC6 PO
--- OUTSIDE RECORDS SUMMARY | 2020-05-21 20:50 | XMS ---
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 Care History Medical/Surgical 08/09/2019 [facility] \T\middot;\T\nbsp; PATIENT- [facility] ELIGIBLE \T\middot;\T\nbsp; PLEASE REFER PATIENT TO [facility] FOR NON EMERGENT MEDICAL NEEDS. \T\middot;\ T\nbsp; [facility] CAN SEE PATIENTS SAME DAY FOR APTS IF PATIENT CALLS FIRST THING IN THE MORNING. 05/16/2018 [facility] - PATIENT HAS A FOLLOW UP APT WITH DR ABRAMS ON 05/23. - [facility] NOTATIONS FROM 05/15/18 CLINIC VISIT LISTED UNDER NOTES ON CLAUDIA. 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 - Claudette has educated patient on diabetic education, but patient is not willing to follow up with further education. - Patient request pain medications at every PCP visit. - Patient has declined mental health evaluation from [facility]. Care Recommendation: - USE EXTREME CAUTION IN GIVING NARCOTICS TO THIS PATIENT. - Avoid Discharge Narcotic prescriptions if at all possible. Please use clinical judgement. E.D. VISIT COUNT (12 MO.) 9 [facility] TOTAL 9 NOTE: Visits indicate total known visits. ED/UCC VISIT TRACKING (12 MO.) 05/21/2020 20:48 [facility] [place] TYPE: Emergency COMPLAINT: - SKIN PROBLEM 04/02/2020 17:42 [facility] [place] TYPE: Emergency COMPLAINT: - SOB/ COVID 02/24/2020 17:36 [facility] [place] TYPE: Emergency COMPLAINT: - PAIN- CHEST/ARM DIAGNOSES: - Chest pain, unspecified - Latex allergy status - Allergy status to other drugs, medicaments and biological sub - Radiographic dye allergy status - Other chest pain - Allergy status to narcotic agent status - Other chcf (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 - retirement (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 - Essential (primary) hypertension 01/17/2020 14:45 [facility] [place] TYPE: Emergency COMPLAINT: - MULTIPLE COMPLAINTS DIAGNOSES: - Weakness - Left lower quadrant pain - Latex allergy status - Type 2 diabetes mellitus with hyperglycemia - Radiographic dye allergy status - Allergy status to narcotic agent status - Allergy status to other drugs, medicaments and biological sub - Personal history of nicotine dependence - Other chcf (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 - retirement (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 - Essential (primary) hypertension 12/09/2019 21:49 [facility] [place] TYPE: Emergency COMPLAINT: - POSSIBLE INFECTION DIAGNOSES: - Essential (primary) hypertension - Cutaneous abscess of perineum - Allergy status to narcotic agent status - Radiographic dye allergy status - Cutaneous abscess of perineum - Other long term care social worker (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 - Latex allergy status 10/12/2019 16:05 [facility] [place] TYPE: Emergency COMPLAINT: - HEADACHE, FACIAL SWELLING DIAGNOSES: - Headache - Unspecified asthma, uncomplicated - Type 2 diabetes mellitus without complications - Other long term care social worker (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 - Chronic sinusitis, unspecified - Essential (primary) hypertension 09/17/2019 15:52 [facility] [place] TYPE: Emergency COMPLAINT: - PAINFUL URINATION DIAGNOSES: - Personal history of nicotine dependence - Radiographic dye allergy status - Other chcf (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 - Type 2 diabetes mellitus with hyperglycemia - Type 2 diabetes mellitus without complications - Essential (primary) hypertension - Candidiasis of skin and nail - Latex allergy status - retirement (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 - Allergy status [...] care social worker (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 - 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 - Allergy status to other drugs, medicaments and biological sub - Unspecified asthma, uncomplicated - Allergy status to narcotic agent status 06/08/2019 18:40 [facility] [place] TYPE: Emergency COMPLAINT: - CHEST PAIN DIAGNOSES: - Type 2 diabetes mellitus without complications - Allergy status to other drugs, medicaments and biological sub - Unspecified asthma, uncomplicated - Chest pain, unspecified - 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 - Other long term care social worker (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 - Allergy status to narcotic agent status - Essential (primary) hypertension - Radiographic dye allergy status - Latex allergy status INPATIENT VISIT TRACKING (12 MO.) 04/02/2020 21:14 [facility] [place] TYPE: Medical Surgical COMPLAINT: - SARS-COV-2 PNA DIAGNOSES: - Unspecified asthma, uncomplicated - Acute respiratory failure with hypoxia - Other long term care social worker (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 - Radiographic dye allergy status - 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
[2020-05-21] MEDS ORDERED: DIFLUCAN150 MG PO (21:19)
== END 2020-05-21 21:30 | disposition home or self-care (01) ==
LOC: ED 20:47
DX: B37.3 Candidiasis of vulva and vagina (principal); N75.0 Cyst of Bartholin's gland; I10 Essential (primary) hypertension; Z88.8 Allergy status to other drugs, medicaments and biological substances; Z88.5 Allergy status to narcotic agent; Z91.040 Latex allergy status; Z79.899 Other long term (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; Z79.4 Long term (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
CPT/HCPCS: 99282

== ENCOUNTER 2020-06-23 17:44 | Emergency (ER) | payer OTHER ==
[~2020-06-23] VITALS: Ht 162.6 cm; Wt 101.2 kg
--- OUTSIDE RECORDS SUMMARY | 2020-06-23 17:46 | XMS ---
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 Care History Medical/Surgical 08/09/2019 [facility] \T\middot;\T\nbsp; PATIENT- [facility] ELIGIBLE \T\middot;\T\nbsp; PLEASE REFER PATIENT TO [facility] FOR NON EMERGENT MEDICAL NEEDS. \T\middot;\ T\nbsp; [facility] CAN SEE PATIENTS SAME DAY FOR APTS IF PATIENT CALLS FIRST THING IN THE MORNING. 05/16/2018 [facility] - PATIENT HAS A FOLLOW UP APT WITH DR ABRAMS ON 05/23. - [facility] [place] [facility] NOTATIONS FROM 05/15/18 CLINIC VISIT LISTED UNDER NOTES ON CLAUDIA. 04/18/2018 [facility] - Patient is currently working with Claudette TOBARtechnical support director from [facility]- Contact ) if patient is seen in ED. - Claudette has educated patient on diabetic education, but patient is not willing to follow up with further education. - Patient request pain medications at every PCP visit. - Patient has declined mental health evaluation from [facility]. Care Recommendation: - USE EXTREME CAUTION IN GIVING NARCOTICS TO THIS PATIENT. - Avoid Discharge Narcotic prescriptions if at all possible. Please use clinical judgement. E.D. VISIT COUNT (12 MO.) 9 [facility] TOTAL 9 NOTE: Visits indicate total known visits. 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 - Latex allergy status - Candidiasis of vulva and vagina 04/02/2020 17:42 [facility] [place] [facility] [place] TYPE: Emergency COMPLAINT: - SOB/ COVID 02/24/2020 17:36 [facility] [place] TYPE: Emergency COMPLAINT: - PAIN- CHEST/ARM DIAGNOSES: - Chest pain, unspecified - Latex allergy status - Allergy status to other drugs, medicaments and biological substances - Radiographic dye allergy status - Other chest pain - Allergy status to narcotic agent - Other alf (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 - 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 - Essential (primary) hypertension 01/17/2020 14:45 [facility] [place] TYPE: Emergency COMPLAINT: - MULTIPLE COMPLAINTS DIAGNOSES: - Weakness - Left lower quadrant pain - Latex allergy status - Type 2 diabetes mellitus with hyperglycemia - Radiographic dye allergy status - Allergy status to narcotic agent - Allergy status to other drugs, medicaments and biological substances - Personal history of nicotine dependence - Other alf (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 - retirement (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 - Essential (primary) hypertension 12/09/2019 21:49 [facility] [place] TYPE: Emergency COMPLAINT: - POSSIBLE INFECTION DIAGNOSES: - Essential (primary) hypertension - Cutaneous abscess of perineum - Allergy status to narcotic agent - Radiographic dye allergy status - Cutaneous abscess of perineum - Other alf (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 - Latex allergy status 10/12/2019 16:05 [facility] [place] TYPE: Emergency COMPLAINT: - HEADACHE, FACIAL SWELLING DIAGNOSES: - Headache - Unspecified asthma, uncomplicated - Type 2 diabetes mellitus without complications - Other director long term care (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 - Chronic sinusitis, unspecified - Essential (primary) hypertension 09/17/2019 15:52 [facility] [place] TYPE: Emergency COMPLAINT: - PAINFUL URINATION DIAGNOSES: - Personal history of nicotine dependence - Radiographic dye allergy status - Other director long term care (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 - Type 2 diabetes mellitus with hyperglycemia - Type 2 diabetes mellitus without complications - Essential (primary) hypertension - Candidiasis of skin and nail - Latex allergy status - retirement (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 - Allergy status to narcotic agent - Unspecified asthma, uncomplicated - Allergy status to analgesic agent 08/08/2019 16:38 [facility] [place] TYPE: Emergency COMPLAINT: - SKIN PROBLEM/ DIABETIC DIAGNOSES: - Radiographic dye allergy status - Type 2 diabetes mellitus without complications - Allergy status to analgesic agent - Latex allergy status - Right lower quadrant pain - Cutaneous abscess of abdominal wall - Essential (primary) hypertension - Other alf (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 - retirement (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 - Allergy status to other drugs, medicaments and biological substances - Unspecified asthma, uncomplicated - Allergy status to narcotic agent INPATIENT VISIT TRACKING (12 MO.) 04/02/2020 21:[address] [facility] [address] [place] TYPE: Medical Surgical COMPLAINT: - SARS-COV-2 PNA DIAGNOSES: - Unspecified asthma, uncomplicated - Acute respiratory failure with hypoxia - Other director long term care (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 - Radiographic dye allergy status - retirement (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 - Other viral pneumonia - COVID-19 - retirement (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 of inhaled steroids - Latex allergy status - Essential (primary) hypertension - Type 2 diabetes mellitus with hyperglycemia - Allergy status to narcotic agent - Hyperlipidemia, unspecified - Allergy status to anesthetic agent [email or web address]
== END 2020-06-23 19:03 | disposition home or self-care (01) ==
LOC: ED 17:44
DX: R20.2 Paresthesia of skin (principal); I10 Essential (primary) hypertension; Z88.8 Allergy status to other drugs, medicaments and biological substances; Z91.040 Latex allergy status; Z88.5 Allergy status to narcotic agent; Z79.899 Other long term (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; Z79.4 Long term (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
CPT/HCPCS: 99283

== ENCOUNTER 2020-08-04 18:29 | Emergency (ER) | payer OTHER ==
[~2020-08-04] VITALS: Ht 162.6 cm; Wt 101.2 kg
--- OUTSIDE RECORDS SUMMARY | 2020-08-04 18:32 | XMS ---
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 Care History Medical/Surgical 08/09/2019 [facility] \T\middot;\T\nbsp; PATIENT- [facility] ELIGIBLE \T\middot;\T\nbsp; PLEASE REFER PATIENT TO [facility] FOR NON EMERGENT MEDICAL NEEDS. \T\middot;\ T\nbsp; [facility] CAN SEE PATIENTS SAME DAY FOR APTS IF PATIENT CALLS FIRST THING IN THE MORNING. 05/16/2018 [facility] - PATIENT HAS A FOLLOW UP APT WITH DR ABRAMS ON 05/23. - [facility] [place] FROM 05/15/18 CLINIC VISIT LISTED UNDER NOTES ON CLAUDIA. 04/18/2018 [facility] - Patient is currently working with Claudette TOBARassistant professor of german from [facility]- Contact ) if patient is seen in ED. - Claudette has educated patient on diabetic education, but patient is not willing to follow up with further education. - Patient request pain medications at every PCP visit. - [facility]. Care Recommendation: - USE EXTREME CAUTION IN GIVING NARCOTICS TO THIS PATIENT. - Avoid Discharge Narcotic prescriptions if at all possible. Please use clinical judgement. E.D. VISIT COUNT (12 MO.) [facility] TOTAL 10 NOTE: Visits indicate total known visits. 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 05/21/2020 20:48 [facility] [place] TYPE: Emergency COMPLAINT: - SKIN PROBLEM DIAGNOSES: - Allergy status to other drugs, medicaments and biological substances - Allergy status to narcotic agent - Essential (primary) hypertension - 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.] Personal history of nicotine dependence - Other fpc (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 - [facility] (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 - Essential (primary) hypertension 12/09/2019 21:49 [facility] [place] Emergency COMPLAINT: - POSSIBLE INFECTION DIAGNOSES: - Essential (primary) hypertension - Cutaneous abscess of perineum - Allergy status to narcotic agent - Radiographic dye allergy status - Cutaneous abscess of perineum - 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 - Latex allergy status 10/12/2019 16:05 [facility] [place] Emergency COMPLAINT: - HEADACHE, FACIAL SWELLING DIAGNOSES: - Headache - Unspecified asthma, uncomplicated - Type 2 diabetes mellitus without complications - 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 - Chronic sinusitis, unspecified - Essential (primary) hypertension 09/17/2019 15:52 [facility] [place] Emergency COMPLAINT: - PAINFUL URINATION DIAGNOSES: - Personal history of nicotine dependence - Radiographic dye allergy status - 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 - Type 2 diabetes mellitus with hyperglycemia - Type 2 diabetes mellitus without complications - Essential (primary) hypertension - Candidiasis of skin and nail - Latex allergy status - [facility] (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 - Allergy status [...] wall - Essential (primary) hypertension - Other fpc (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 - [facility] (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 - Allergy status to other drugs, medicaments and biological substances - Unspecified asthma, uncomplicated - Allergy status to narcotic agent INPATIENT VISIT TRACKING (12 MO.) 04/02/2020 21:14 [facility] [place] TYPE: Medical Surgical COMPLAINT: - SARS-COV-2 PNA DIAGNOSES: - Unspecified asthma, uncomplicated - Acute respiratory failure with hypoxia - 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
== END 2020-08-04 19:42 | disposition left against medical advice (07) ==
LOC: ED 18:29
DX: Z53.21 Procedure and treatment not carried out due to patient leaving prior to being seen by health care provider (principal)

== ENCOUNTER 2020-08-08 19:34 | Emergency (ER) | payer OTHER ==
[~2020-08-08] VITALS: Ht 167.6 cm; Wt 97.1 kg
--- OUTSIDE RECORDS SUMMARY | 2020-08-08 19:36 | XMS ---
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 CRITERIA MET - Group Notification - 6 ED Visits in 6 Months - [facility] - 2 Visits in 30 Days CARE PROVIDERS YULISA MELGAR [facility] 03/14/2018-Current PHONE: Unknown BOLIVAR SAVAGE Physician 03/15/2019-Current PHONE: Unknown Angelo Abrams [facility] 07/10/2018-Current PHONE: [phone] Name [facility] 06/11/2019-Current PHONE: [phone] Claudia has no Care Guidelines for this patient. Care History Medical/Surgical 08/09/2019 [facility] \T\middot;\T\nbsp; PATIENT- [facility] ELIGIBLE \T\middot;\T\nbsp; PLEASE REFER PATIENT TO [facility] FOR NON EMERGENT MEDICAL NEEDS. \T\middot;\ T\nbsp; [facility] CAN SEE PATIENTS SAME DAY FOR APTS IF PATIENT CALLS FIRST THING IN THE MORNING. 05/16/2018 [facility] - PATIENT HAS A FOLLOW UP APT WITH DR ABRAMS ON 05/23. - [facility] [place] [facility] NOTATIONS FROM 05/15/18 CLINIC VISIT LISTED UNDER NOTES ON CLAUDIA. 04/18/2018 [facility] - Patient is currently working with Claudette mold sheet cleaner from [facility]- Contact ) if patient is seen in ED. - Claudette has educated patient on diabetic education, but patient is not willing to follow up with further education. - Patient request pain medications at every PCP visit. - Patient has declined [facility]. Care Recommendation: - USE EXTREME CAUTION IN GIVING NARCOTICS TO THIS PATIENT. - Avoid Discharge Narcotic prescriptions if at all possible. Please use clinical judgement. E.D. VISIT COUNT (12 MO.) 10 [facility] TOTAL 10 NOTE: Visits indicate total known visits. ED/UCC VISIT TRACKING (12 MO.) 08/08/2020 19:35 [facility] [place] TYPE: Emergency COMPLAINT: - ARM AND HEAD PAIN 08/04/2020 18:29 [facility] [place] TYPE: Emergency COMPLAINT: - HEADACHE DIAGNOSES: - Procedure and treatment not carried out due to patient leaving prior to being seen by health care provider 06/23/2020 17:45 [facility] [place] TYPE: Emergency COMPLAINT: - RIGHT SIDED TINGLING DIAGNOSES: - Essential (primary) hypertension - Paresthesia of skin - Allergy status to other drugs, medicaments and biological substances - Latex allergy status - Other mcfp (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 - Allergy status to narcotic agent - retirement (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 05/21/2020 20:48 [facility] [place] TYPE: Emergency COMPLAINT: - SKIN PROBLEM DIAGNOSES: - Allergy status to other drugs, medicaments and biological substances - Allergy status to narcotic agent - Essential (primary) hypertension - Other long term care phlebotomist (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 - Cyst of Bartholin's gland - 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 designer (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 - Latex allergy [...] Allergy status to narcotic agent - Other mcfp (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 - 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 designer (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 - Essential (primary) [...] Personal history of nicotine dependence - Other mcfp (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 - retirement (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 - Essential (primary) hypertension 12/09/2019 21:49 [facility] [place] TYPE: Emergency COMPLAINT: - POSSIBLE INFECTION DIAGNOSES: - Essential (primary) hypertension - Cutaneous abscess of perineum - Allergy status to narcotic agent - Radiographic dye allergy status - Cutaneous abscess of perineum - Other mcfp (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 - Latex allergy status 10/12/2019 16:05 [facility] [place] TYPE: Emergency COMPLAINT: - HEADACHE, FACIAL SWELLING DIAGNOSES: - Headache - Unspecified asthma, uncomplicated - Type 2 diabetes mellitus without complications - Other mcfp (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 - Chronic sinusitis, unspecified - Essential (primary) hypertension 09/17/2019 15:52 [facility] [place] TYPE: Emergency COMPLAINT: - PAINFUL URINATION DIAGNOSES: - Personal history of nicotine dependence - Radiographic dye allergy status - Other mcfp (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 - Type 2 diabetes mellitus with hyperglycemia - Type 2 diabetes mellitus without complications - Essential (primary) hypertension - Candidiasis of skin and nail - Latex allergy status - 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 designer (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 - Allergy status [...] (primary) hypertension - Other long term care phlebotomist (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 - 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 designer (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 - Allergy status to other drugs, medicaments and biological substances - Unspecified asthma, uncomplicated - Allergy status to narcotic agent INPATIENT VISIT TRACKING (12 MO.) 04/02/2020 21:14 [facility] [place] TYPE: Medical Surgical COMPLAINT: - SARS-COV-2 PNA DIAGNOSES: - Unspecified asthma, uncomplicated - Acute respiratory failure with hypoxia - Other mcfp (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 - Radiographic dye allergy status - 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 designer (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 - Other viral pneumonia - COVID-19 - retirement (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 of inhaled steroids - Latex allergy status - Essential (primary) hypertension - Type 2 diabetes mellitus with hyperglycemia - Allergy status to narcotic agent - Hyperlipidemia, unspecified - Allergy status to anesthetic agent [email or web address]
[2020-08-08] MEDS ORDERED: PEPCID20 MG PO (22:49)
[2020-08-08] MEDS ORDERED: MAALOX ADVANCE1 EACH PO (22:49)
[2020-08-08] MEDS ORDERED: MAPAP500 MG PO (22:49)
--- NOTE | 2020-08-09 20:45 | EKG ---
[facility] [address] [place] [address] Signed Normal sinus rhythm Nonspecific ST and T wave abnormality Abnormal ECG When compared with ECG of 04-APR-2020 23:53, No significant change was found Confirmed by JERI JORDAN MD ([id number]) on 08/09/2020 8:44:57 PM Electronically Signed By: JERI JORDAN MD 08/09/202044 PATIENT NAME: ANA MARIA TURCIOS Electrocardiogram DATE OF : 72 PHYSICIAN: JERI JORDAN MD REPORT #: [id number] REPORT IS CONFIDENTIAL AND NOT TO BE RELEASED WITHOUT AUTHORIZATION
== END 2020-08-08 23:03 | disposition home or self-care (01) ==
LOC: ED 19:34
DX: R07.9 Chest pain, unspecified (principal); R51.9 Headache, unspecified; I10 Essential (primary) hypertension; Z88.8 Allergy status to other drugs, medicaments and biological substances; Z91.040 Latex allergy status; Z88.5 Allergy status to narcotic agent; Z91.041 Radiographic dye allergy status; Z79.899 Other long term (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; Z79.4 Long term (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
CPT/HCPCS: 71045; 80053; 81001; 83690; 83735; 84484; 84703; 85025; 93005; 93010; 96374; 96375; 99285-25; J0780; J1200; J7121

== ENCOUNTER 2020-09-02 13:12 | Emergency (ER) | payer OTHER ==
[~2020-09-02] VITALS: Ht 167.6 cm; Wt 97.1 kg
[~2020-09-02 13:12] MED LIST changes: +MAALOX ADVANCE1 EACH PO; +MAPAP500 MG PO; +PEPCID20 MG PO
--- OUTSIDE RECORDS SUMMARY | 2020-09-02 13:14 | XMS ---
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 CRITERIA MET - Group Notification - 6 ED Visits in 6 Months - [facility] - 2 Visits in 30 Days CARE PROVIDERS YULISA MELGAR [facility] 03/14/2018-Current PHONE: Unknown BOLIVAR SAVAGE Physician Qa Test Analyst 03/15/2019-Current PHONE: Unknown Angelo Abrams [facility] 07/10/2018-Current PHONE: [phone] [facility] 06/11/2019-[facility] PHONE: [phone] Claudia has no Care Guidelines for this patient. Care History Medical/Surgical 08/13/2020 [facility] - PATIENT IS CURRENTLY ENROLLED WITH CHRONIC DISEASE-PHARMACY\T\nbsp; (DIABETES MED MANAGEMENT) AT [facility] - PATIENT HAS A COUNSELOR - SEES ON A CONSISTENT BASIS - COUNSELOR VALERIA JASSO. - 07/15/2020 PCP VISIT- PT CONSULT WAS REQUESTED, XRAY, REFERRAL FOR MRI. 08/09/2019 [facility] \T\middot;\T\nbsp; PATIENT- [facility] ELIGIBLE \T\middot;\T\nbsp; PLEASE REFER PATIENT TO [facility] FOR NON EMERGENT MEDICAL NEEDS. \T\middot;\ T\nbsp; [facility] CAN SEE PATIENTS SAME DAY FOR APTS IF PATIENT CALLS FIRST THING IN THE MORNING. E.D. VISIT COUNT (12 MO.) 11 [facility]. TOTAL 11 NOTE: Visits indicate total known visits. ED/UCC VISIT TRACKING (12 MO.) 09/02/2020 13:12 [facility] [place] TYPE: Emergency COMPLAINT: - FLANK PAIN, URINE PROBLEM 08/08/2020 19:35 [facility] [place] TYPE: Emergency COMPLAINT: - HEADACHE DIAGNOSES: - Other correction (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 - Allergy status to narcotic agent - Allergy status to other drugs, medicaments and biological substances - Headache, unspecified - Chest pain, unspecified - Essential (primary) hypertension - Allergy status to narcotic agent - Allergy status to other drugs, medicaments and biological substances - Headache, unspecified - Radiographic dye allergy status - PERSONAL HISTORY OF COVID-19 - 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 - Latex allergy status 08/04/2020 18:29 [facility] [employer] [facility] [place] TYPE: Emergency COMPLAINT: - HEADACHE DIAGNOSES: - Procedure and treatment not carried out due to patient leaving prior to being seen by health care provider 06/23/2020 17:45 [facility] [place] TYPE: Emergency COMPLAINT: - RIGHT SIDED TINGLING DIAGNOSES: - Essential (primary) hypertension - Paresthesia of skin - Allergy status to narcotic agent - Allergy status to other drugs, medicaments and biological substances - Latex allergy status - Other parts counterman (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 - Allergy status to other drugs, medicaments and biological substances - Allergy status to narcotic agent - 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 05/21/2020 20:48 [facility] [place] TYPE: Emergency COMPLAINT: - SKIN PROBLEM DIAGNOSES: - Allergy status to other drugs, medicaments and biological substances - Allergy status to narcotic agent - Allergy status to narcotic agent - Essential (primary) hypertension - Other parts counterman (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 - Cyst of Bartholin's gland - Allergy status to other drugs, medicaments and biological substances - group home (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 - Latex allergy status - Candidiasis of vulva and vagina 04/02/2020 17:42 [facility] TYPE: Emergency COMPLAINT: - SOB/ COVID 02/24/2020 17:36 [facility] [place] TYPE: Emergency COMPLAINT: - PAIN- CHEST/ARM DIAGNOSES: - Chest pain, unspecified - Latex allergy status - Allergy status to other drugs, medicaments and biological substances - Radiographic dye allergy status - Other chest pain - Allergy status to narcotic agent - Other parts counterman (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 - group home (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 [...] Personal history of nicotine dependence - Other parts counterman (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 - group home (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 - Essential (primary) hypertension 12/09/2019 21:49 [facility] [place] TYPE: Emergency COMPLAINT: - POSSIBLE INFECTION DIAGNOSES: - Essential (primary) hypertension - Cutaneous abscess of perineum - Allergy status to narcotic agent - Radiographic dye allergy status - Cutaneous abscess of perineum - Other parts counterman (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 - Latex allergy status 10/12/2019 16:05 [facility] [place] TYPE: Emergency COMPLAINT: - HEADACHE, FACIAL SWELLING DIAGNOSES: - Headache - Unspecified asthma, uncomplicated - Type 2 diabetes mellitus without complications - Other correction (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 - Chronic sinusitis, unspecified - Essential (primary) hypertension 09/17/2019 15:52 [facility] [place] TYPE: Emergency COMPLAINT: - PAINFUL URINATION DIAGNOSES: - Personal history of nicotine dependence - Radiographic dye allergy status - Other parts counterman (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 - Type 2 diabetes mellitus with hyperglycemia - Type 2 diabetes mellitus without complications - Essential (primary) hypertension - Candidiasis of skin and nail - Latex allergy status - 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 - Allergy status to narcotic agent - Unspecified asthma, uncomplicated - Allergy status to analgesic agent INPATIENT VISIT TRACKING (12 MO.) 04/02/2020 21:14 [facility] [place] TYPE: Medical Surgical COMPLAINT: - SARS-COV-2 PNA DIAGNOSES: - Unspecified asthma, uncomplicated - Acute respiratory failure with hypoxia - Other correction (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 - Radiographic dye allergy status - group home (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 - Other viral pneumonia - COVID-19 - group home (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 of inhaled steroids - Latex allergy status - Essential (primary) hypertension - Type 2 diabetes mellitus with hyperglycemia - Allergy status to narcotic agent - Hyperlipidemia, unspecified - Allergy status to anesthetic agent [email or web address]
[2020-09-02] MEDS ORDERED: HYDROXYZINE PAM25 MG PO (14:09)
== END 2020-09-02 15:34 | disposition home or self-care (01) ==
LOC: ED 13:12
DX: R30.0 Dysuria (principal); I10 Essential (primary) hypertension; Z88.8 Allergy status to other drugs, medicaments and biological substances; Z88.5 Allergy status to narcotic agent; Z91.040 Latex allergy status; Z91.041 Radiographic dye allergy status; Z79.899 Other long term (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
CPT/HCPCS: 81001; 84703; 99283

== ENCOUNTER 2020-09-27 15:01 | Emergency (ER) | payer OTHER ==
[~2020-09-27] VITALS: Ht 167.6 cm; Wt 97.1 kg
[~2020-09-27 15:01] MED LIST changes: +HYDROXYZINE PAM25 MG PO
--- OUTSIDE RECORDS SUMMARY | 2020-09-27 15:04 | XMS ---
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 CRITERIA MET - Group Notification - 6 ED Visits in 6 Months - [facility] - 2 Visits in 30 Days CARE PROVIDERS YULISA MELGAR [facility] 03/14/2018-Current PHONE: Unknown BOLIVAR SAVAGE Physician Campground Manager 03/15/2019-Current PHONE: Unknown Angelo Abrams [facility] 07/10/2018-Current PHONE: [phone] [facility] 06/11/2019-[facility] PHONE: [phone] Claudia has no Care Guidelines for this patient. Care History Medical/Surgical 08/13/2020 [facility] - PATIENT IS CURRENTLY ENROLLED WITH CHRONIC DISEASE-PHARMACY\T\nbsp; (DIABETES MED MANAGEMENT) AT [facility] - PATIENT HAS A COUNSELOR - SEES ON A CONSISTENT BASIS - COUNSELOR VALERIA JASSO. - 07/15/2020 PCP VISIT- PT CONSULT WAS REQUESTED, XRAY, REFERRAL FOR MRI. 08/09/2019 [facility] \T\middot;\T\nbsp; PATIENT- [facility] ELIGIBLE \T\middot;\T\nbsp; PLEASE REFER PATIENT TO [facility] FOR NON EMERGENT MEDICAL NEEDS. \T\middot;\ T\nbsp; [facility] CAN SEE PATIENTS SAME DAY FOR APTS IF PATIENT CALLS FIRST THING IN THE MORNING. E.D. VISIT COUNT (12 MO.) 11 [facility]. TOTAL 11 NOTE: Visits indicate total known visits. 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 - Essential (primary) hypertension - Latex allergy status 08/08/2020 19:35 [facility] [place] TYPE: Emergency COMPLAINT: - HEADACHE DIAGNOSES: - Other longterm (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 - Allergy status to narcotic agent - Allergy status to other drugs, medicaments and biological substances - Headache, unspecified - Chest pain, unspecified - Essential (primary) hypertension - Allergy status to narcotic agent - Allergy status to other drugs, medicaments and biological substances - Headache, unspecified - Radiographic dye allergy status - PERSONAL HISTORY OF COVID-19 - terminal supervisor (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 - Latex allergy status 08/04/2020 18:29 [facility] [place] TYPE: Emergency [...] substances - Latex allergy status - Other longterm (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 - Allergy status to other drugs, medicaments and biological substances - Allergy status to narcotic agent - terminal supervisor (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 05/21/2020 20:48 [facility] [place] TYPE: Emergency COMPLAINT: - SKIN PROBLEM DIAGNOSES: - Allergy status to other drugs, medicaments and biological substances - Allergy status to narcotic agent - Allergy status to narcotic agent - Essential (primary) hypertension - Other watermelon harvesting supervisor (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 - Cyst of Bartholin's gland - Allergy status to other drugs, medicaments and biological substances - half-way (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 - Latex allergy [...] Allergy status to narcotic agent - Other longterm (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 - terminal supervisor (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 - Essential (primary) [...] Personal history of nicotine dependence - Other watermelon harvesting supervisor (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 - terminal supervisor (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 - Essential (primary) hypertension 12/09/2019 21:49 [facility] [place] TYPE: Emergency COMPLAINT: - POSSIBLE INFECTION DIAGNOSES: - Essential (primary) hypertension - Cutaneous abscess of perineum - Allergy status to narcotic agent - Radiographic dye allergy status - Cutaneous abscess of perineum - Other longterm (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 - Latex allergy status 10/12/2019 16:05 [facility] [place] TYPE: Emergency COMPLAINT: - HEADACHE, FACIAL SWELLING DIAGNOSES: - Headache - Unspecified asthma, uncomplicated - Type 2 diabetes mellitus without complications - Other 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 harvesting supervisor (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 - Chronic sinusitis, unspecified - Essential (primary) hypertension INPATIENT VISIT TRACKING (12 MO.) 04/02/2020 21:14 [facility] [place] TYPE: Medical Surgical COMPLAINT: - SARS-COV-2 PNA DIAGNOSES: - Unspecified asthma, uncomplicated - Acute respiratory failure with hypoxia - Other 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
--- NOTE | 2020-09-28 12:09 | EKG ---
[facility] [address] [place] [address] Signed Normal sinus rhythm Possible Inferior infarct , age undetermined Abnormal ECG When compared with ECG of 08-AUG-2020 19:39, Borderline criteria for Inferior infarct are now present Nonspecific T wave abnormality no longer evident in Anterior leads Confirmed by JOSSIE MCLEAN MD ([id number]) on 09/28/2020 12:09:04 PM Electronically Signed By: JOSSIE MCLEAN MD 09/28/20 1209 PATIENT NAME: ANA MARIA TURCIOS Electrocardiogram DATE OF : 72 PHYSICIAN: JOSSIE MCLEAN MD REPORT #: [id number] REPORT IS CONFIDENTIAL AND NOT TO BE RELEASED WITHOUT AUTHORIZATION
== END 2020-09-27 19:00 | disposition home or self-care (01) ==
LOC: ED 15:01
DX: R07.9 Chest pain, unspecified (principal); E11.65 Type 2 diabetes mellitus with hyperglycemia; I10 Essential (primary) hypertension; Z88.8 Allergy status to other drugs, medicaments and biological substances; Z91.040 Latex allergy status; Z88.5 Allergy status to narcotic agent; Z91.041 Radiographic dye allergy status; Z79.899 Other long term (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; Z79.4 Long term (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
CPT/HCPCS: 80053; 83690; 84484; 85025; 93005; 93010; 99285-25; J7030

== ENCOUNTER 2020-11-01 12:56 | Emergency (ER) | payer OTHER ==
[~2020-11-01] VITALS: Ht 167.6 cm; Wt 98.4 kg
--- OUTSIDE RECORDS SUMMARY | 2020-11-01 13:00 | XMS ---
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 CRITERIA MET - Group Notification - 6 ED Visits in 6 Months - [facility] CARE PROVIDERS YULISA MELGRA Family [facility] 03/14/2018-Current PHONE: Unknown BOLIVAR SAVAGE Physician 03/15/2019-Current PHONE: Unknown Angelo Abrams [facility] 07/10/2018-Current PHONE: [phone] [facility] PHONE: [phone] Claudia has no Care Guidelines for this patient. Care History Medical/Surgical 08/13/2020 [facility] - PATIENT IS CURRENTLY ENROLLED WITH CHRONIC DISEASE-PHARMACY\T\nbsp; (DIABETES MED MANAGEMENT) AT [facility] - PATIENT HAS A COUNSELOR - SEES ON A CONSISTENT BASIS - COUNSELOR VALERIA JASSO. - 07/15/2020 PCP VISIT- PT CONSULT WAS REQUESTED, XRAY, REFERRAL FOR MRI. 08/09/2019 [facility] \T\middot;\T\nbsp; PATIENT- [facility] ELIGIBLE \T\middot;\T\nbsp; PLEASE REFER PATIENT TO [facility] FOR NON EMERGENT MEDICAL NEEDS. \T\middot;\ T\nbsp; [facility] CAN SEE PATIENTS SAME DAY FOR APTS IF PATIENT CALLS FIRST THING IN THE MORNING. E.D. VISIT COUNT (12 MO.) 11 [facility]. TOTAL 11 NOTE: Visits indicate total known visits. ED/UCC VISIT TRACKING (12 MO.) 11/01/2020 12:57 [facility] [place] TYPE: Emergency COMPLAINT: - ABD PAIN, DIARRHEA 09/27/2020 15:01 [facility] [place] TYPE: Emergency COMPLAINT: - CHEST PAINS DIAGNOSES: - Allergy status to other drugs, medicaments and biological substances - Chest pain, unspecified - Essential (primary) hypertension - Allergy status to narcotic agent - Other fci (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 - Latex allergy status - FPC (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 - Type 2 diabetes mellitus with hyperglycemia - Radiographic dye allergy status 09/02/2020 13:12 [facility] [place] TYPE: Emergency COMPLAINT: - FLANK PAIN, URINE PROBLEM DIAGNOSES: - Dysuria - Allergy status to narcotic agent - Radiographic dye allergy status - Allergy status to other drugs, medicaments and biological substances - Other termite control representative (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 - Essential (primary) hypertension - Latex allergy status 08/08/2020 19:35 [facility] [place] TYPE: Emergency COMPLAINT: - HEADACHE DIAGNOSES: - Other fci (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 - Allergy status to narcotic agent - Allergy status to other drugs, medicaments and biological substances - Headache, unspecified - Chest pain, unspecified - Essential (primary) hypertension - Allergy status to narcotic agent - Allergy status to other drugs, medicaments and biological substances - Headache, unspecified - Radiographic dye allergy status - PERSONAL HISTORY OF COVID-19 - watermelon inspector (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 - Latex allergy [...] substances - Latex allergy status - Other termite control representative (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 - Allergy status to other drugs, medicaments and biological substances - Allergy status to narcotic agent - FPC (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 05/21/2020 20:48 [facility] [place] TYPE: Emergency COMPLAINT: - SKIN PROBLEM DIAGNOSES: - Allergy status to other drugs, medicaments and biological substances - Allergy status to narcotic agent - Allergy status to narcotic agent - Essential (primary) hypertension - Other fci (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 - Cyst of Bartholin's gland - Allergy status to other drugs, medicaments and biological substances - FPC (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 - Latex allergy [...] Allergy status to narcotic agent - Other termite control representative (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 - watermelon inspector (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 - Essential (primary) [...] dependence - Other fci (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 - FPC (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 - Essential (primary) hypertension 12/09/2019 21:49 [facility] [place] TYPE: Emergency COMPLAINT: - POSSIBLE INFECTION DIAGNOSES: - Essential (primary) hypertension - Cutaneous abscess of perineum - Allergy status to narcotic agent - Radiographic dye allergy status - Cutaneous abscess of perineum - Other termite control representative (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 - Latex allergy status INPATIENT VISIT TRACKING (12 MO.) 04/02/2020 21:14 [facility] [place] TYPE: Medical Surgical COMPLAINT: - SARS-COV-2 PNA DIAGNOSES: - Unspecified asthma, uncomplicated - Acute respiratory failure with hypoxia - Other fci (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 - Radiographic dye allergy status - FPC (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 - Other viral pneumonia - COVID-19 - FPC (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 of inhaled steroids - Latex allergy status - Essential (primary) hypertension - Type 2 diabetes mellitus with hyperglycemia - Allergy status to narcotic agent - Hyperlipidemia, unspecified - Allergy status to anesthetic agent [email or web address]
[2020-11-01] MEDS ORDERED: HYDROCODON-ACE1 EA10 PO (15:47)
[2020-11-01] MEDS ORDERED: ONDANSETRON ODT8 MG PO (15:47)
[2020-11-02] MEDS ORDERED: PEPCID20 MG PO (23:31)
[2020-11-02] MEDS ORDERED: DICYCLOMINE HCL20 MG PO (23:31)
[2020-11-02] MEDS ORDERED: MAALOX ADVANCE1 EACH PO (23:31)
== END 2020-11-01 16:35 | disposition home or self-care (01) ==
LOC: ED 12:56
DX: K52.9 Noninfective gastroenteritis and colitis, unspecified (principal); I10 Essential (primary) hypertension; Z88.8 Allergy status to other drugs, medicaments and biological substances; Z88.5 Allergy status to narcotic agent; Z91.041 Radiographic dye allergy status; Z91.040 Latex allergy status; Z79.899 Other long term (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; Z79.4 Long term (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
CPT/HCPCS: 80053; 81001; 83690; 84703; 85025; 96374; 99284-25; J2405; J7030

== ENCOUNTER 2020-11-02 20:06 | Emergency (ER) | payer OTHER ==
[~2020-11-02] VITALS: Ht 167.6 cm; Wt 98.4 kg
[~2020-11-02 20:06] MED LIST changes: +HYDROCODON-ACE1 EA10 PO
--- OUTSIDE RECORDS SUMMARY | 2020-11-02 20:08 | XMS ---
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 CRITERIA MET - Group Notification - 6 ED Visits in 6 Months - [facility] - 2 Visits in 30 Days CARE PROVIDERS YULISA MELGAR [facility] 03/14/2018-Current PHONE: Unknown BOLIVAR SAVAGE Physician Residential Counselor 03/15/2019-Current PHONE: Unknown Angelo Abrams [facility] 07/10/2018-Current PHONE: [phone] [facility] 06/11/2019-[facility] PHONE: [phone] Claudia has no Care Guidelines for this patient. Care History Medical/Surgical 08/13/2020 [facility] - PATIENT IS CURRENTLY ENROLLED WITH CHRONIC DISEASE-PHARMACY\T\nbsp; (DIABETES MED MANAGEMENT) AT [facility] - PATIENT HAS A COUNSELOR - SEES ON A CONSISTENT BASIS - COUNSELOR VALERIA JASSO. - 07/15/2020 PCP VISIT- PT CONSULT WAS REQUESTED, XRAY, REFERRAL FOR MRI. 08/09/2019 [facility] \T\middot;\T\nbsp; PATIENT- [facility] ELIGIBLE \T\middot;\T\nbsp; PLEASE REFER PATIENT TO [facility] FOR NON EMERGENT MEDICAL NEEDS. \T\middot;\ T\nbsp; [facility] CAN SEE PATIENTS SAME DAY FOR APTS IF PATIENT CALLS FIRST THING IN THE MORNING. E.Dash. VISIT COUNT (12 MO.) 12 [facility]. TOTAL 12 NOTE: Visits indicate total known visits. 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 estimator (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 - Type 2 diabetes mellitus with hyperglycemia - Radiographic dye allergy status 09/02/2020 13:12 [facility] [place] TYPE: Emergency COMPLAINT: - FLANK PAIN, URINE PROBLEM DIAGNOSES: - Dysuria - Allergy status to narcotic agent - Radiographic dye allergy status - Allergy status to other drugs, medicaments and biological substances - Other pharmacy coordinator (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 - Essential (primary) hypertension - Latex allergy status 08/08/2020 19:35 [facility] [place] TYPE: Emergency COMPLAINT: - HEADACHE DIAGNOSES: - Other fpc (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 - Allergy status to narcotic agent - Allergy status to other drugs, medicaments and biological substances - Headache, unspecified - Chest pain, unspecified - Essential (primary) hypertension - Allergy status to narcotic agent - Allergy status to other drugs, medicaments and biological substances - Headache, unspecified - Radiographic dye allergy status - PERSONAL HISTORY OF COVID-19 - longterm (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 - Latex allergy [...] substances - Latex allergy status - Other pharmacy coordinator (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 - Allergy status to other drugs, medicaments and biological substances - Allergy status to narcotic agent - longterm (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 05/21/2020 20:48 [facility] [place] TYPE: Emergency COMPLAINT: - SKIN PROBLEM DIAGNOSES: - Allergy status to other drugs, medicaments and biological substances - Allergy status to narcotic agent - Allergy status to narcotic agent - Essential (primary) hypertension - Other pharmacy coordinator (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 - Cyst of Bartholin's gland - Allergy status to other drugs, medicaments and biological substances - longterm (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 - Latex allergy [...] Allergy status to narcotic agent - Other pharmacy coordinator (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 - job estimator (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 - Essential (primary) [...] Personal history of nicotine dependence - Other pharmacy coordinator (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 - job estimator (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 - Essential (primary) hypertension 12/09/2019 21:49 [facility] [place] TYPE: Emergency COMPLAINT: - POSSIBLE INFECTION DIAGNOSES: - Essential (primary) hypertension - Cutaneous abscess of perineum - Allergy status to narcotic agent - Radiographic dye allergy status - Cutaneous abscess of perineum - Other pharmacy coordinator (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 - Latex allergy status INPATIENT VISIT TRACKING (12 MO.) 04/02/2020 21:14 [facility] [place] TYPE: Medical Surgical COMPLAINT: - SARS-COV-2 PNA DIAGNOSES: - Unspecified asthma, uncomplicated - Acute respiratory failure with hypoxia - Other pharmacy coordinator (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 - Radiographic dye allergy status - longterm (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 - Other viral pneumonia - COVID-19 - longterm (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 of inhaled steroids - Latex allergy status - Essential (primary) hypertension - Type 2 diabetes mellitus with hyperglycemia - Allergy status to narcotic agent - Hyperlipidemia, unspecified - Allergy status to anesthetic agent [email or web address]
[2020-11-02] MEDS ORDERED: PEPCID20 MG PO (23:31)
[2020-11-02] MEDS ORDERED: DICYCLOMINE HCL20 MG PO (23:31)
[2020-11-02] MEDS ORDERED: MAALOX ADVANCE1 EACH PO (23:31)
--- NOTE | 2020-11-03 19:14 | EKG ---
[facility] [address] [place] [address] Signed Normal sinus rhythm Normal ECG When compared with ECG of 27-SEP-2020 15:07, Borderline criteria for Inferior infarct are no longer present Confirmed by JOSSIE MCLEAN MD ([id number]) on 11/03/2020 7:14:26 PM Electronically Signed By: JOSSIE MCLEAN MD 11/03/20 1914 PATIENT NAME: ANA MARIA TURCIOS Electrocardiogram DATE OF : 72 PHYSICIAN: JOSSIE MCLEAN MD REPORT #: [id number] REPORT IS CONFIDENTIAL AND NOT TO BE RELEASED WITHOUT AUTHORIZATION
== END 2020-11-02 23:52 | disposition home or self-care (01) ==
LOC: ED 20:06
DX: R10.30 Lower abdominal pain, unspecified (principal); R10.13 Epigastric pain; I10 Essential (primary) hypertension; Z88.8 Allergy status to other drugs, medicaments and biological substances; Z91.040 Latex allergy status; Z88.5 Allergy status to narcotic agent; Z79.899 Other long term (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; Z79.4 Long term (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
CPT/HCPCS: 74176; 80053; 81001; 83690; 84484; 84703; 85025; 93005; 93010; 96374; 96375; 99284-25; J0500; J2405; J7121

== ENCOUNTER 2020-11-03 01:06 | Emergency (ER) | payer OTHER ==
[~2020-11-03] VITALS: Ht 167.6 cm; Wt 98.4 kg
[~2020-11-03 01:06] MED LIST changes: +DICYCLOMINE HCL20 MG PO
--- OUTSIDE RECORDS SUMMARY | 2020-11-03 01:10 | XMS ---
PreManage Notification: ANA MARIA TURCIOS Security Cardiac Rn Events 1 event(s) in the past 18 months Most recent security events: Elopement at [facility] 08/04/2020 18:29 - Other Details: PATIENT LWBS. CRITERIA MET - Group Notification - 6 ED Visits in 6 Months - [facility] - 2 Visits in 30 Days CARE PROVIDERS YULISA MELGAR [facility] 03/14/2018-Current PHONE: Unknown BOLIVAR SAVAGE Physician [employer] 03/15/2019-Current PHONE: Unknown Angelo Abrams [facility] 07/10/2018-Current PHONE: [phone] [facility] 06/11/2019-[facility] PHONE: [phone] Claudia has no Care Guidelines for this patient. Care History Medical/Surgical 08/13/2020 [facility] - PATIENT IS CURRENTLY ENROLLED WITH CHRONIC DISEASE-PHARMACY\T\nbsp; (DIABETES MED MANAGEMENT) AT [facility] - PATIENT HAS A COUNSELOR - SEES ON A CONSISTENT BASIS - COUNSELOR VALERIA JASSO. - 07/15/2020 PCP VISIT- PT CONSULT WAS REQUESTED, XRAY, REFERRAL FOR MRI. 08/09/2019 [facility] \T\middot;\T\nbsp; PATIENT- [facility] ELIGIBLE \T\middot;\T\nbsp; PLEASE REFER PATIENT TO [facility] FOR NON EMERGENT MEDICAL NEEDS. \T\middot;\ T\nbsp; [facility] CAN SEE PATIENTS SAME DAY FOR APTS IF PATIENT CALLS FIRST THING IN THE MORNING. E.D. VISIT COUNT (12 MO.) 13 [facility]. TOTAL 13 NOTE: Visits indicate total known visits. ED/UCC VISIT TRACKING (12 MO.) 11/03/2020 01:06 [facility] [place] TYPE: Emergency COMPLAINT: - UTERINE PROBLEM 11/02/2020 20:07 [facility] [place] TYPE: Emergency COMPLAINT: - STOMACH PAIN 11/01/2020 12:57 [facility] [place] TYPE: Emergency COMPLAINT: - ABD PAIN, DIARRHEA 09/27/2020 15:[address] [facility] [address] 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 [place] TYPE: Emergency COMPLAINT: - HEADACHE DIAGNOSES: - Other rn long term care (current) [...] status - PERSONAL HISTORY OF COVID-19 - penitentiary (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 - Latex allergy [...] substances - Latex allergy status - Other residential (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 - Allergy status to other drugs, medicaments and biological substances - Allergy status to narcotic agent - ad terminal makeup operator (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 05/21/2020 20:48 [facility] [place] TYPE: Emergency COMPLAINT: - SKIN PROBLEM DIAGNOSES: - Allergy status to other drugs, medicaments and biological substances - Allergy status to narcotic agent - Allergy status to narcotic agent - Essential (primary) hypertension - Other residential (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 - Cyst of Bartholin's gland - Allergy status to other drugs, medicaments and biological substances - penitentiary (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 - Latex allergy [...] Allergy status to narcotic agent - Other residential (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 - ad terminal makeup operator (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 - Essential (primary) [...] Personal history of nicotine dependence - Other residential (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 - ad terminal makeup operator (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 - Essential (primary) hypertension 12/09/2019 21:49 [facility] [place] TYPE: Emergency COMPLAINT: - POSSIBLE INFECTION DIAGNOSES: - Essential (primary) hypertension - Cutaneous abscess of perineum - Allergy status to narcotic agent - Radiographic dye allergy status - Cutaneous abscess of perineum - Other rn long term care (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 - Latex allergy status INPATIENT VISIT TRACKING (12 MO.) 04/02/2020 21:14 [facility] [place] TYPE: Medical Surgical COMPLAINT: - SARS-COV-2 PNA DIAGNOSES: - Unspecified asthma, uncomplicated - Acute respiratory failure with hypoxia - Other rn long term care (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 - Radiographic dye allergy status - penitentiary (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 - Other viral pneumonia - COVID-19 - penitentiary (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 of inhaled steroids - Latex allergy status - Essential (primary) hypertension - Type 2 diabetes mellitus with hyperglycemia - Allergy status to narcotic agent - Hyperlipidemia, unspecified - Allergy status to anesthetic agent [email or web address]
--- NOTE | 2020-11-03 19:14 | EKG ---
[facility] [address] [place] [address] Signed Normal sinus rhythm Normal ECG When compared with ECG of 02-NOV-2020 22:07, (Unconfirmed) No significant change was found Confirmed by JOSSIE MCLEAN MD ([id number]) on 11/03/2020 7:14:41 PM Electronically Signed By: JOSSIE MCLEAN MD 11/03/20 1914 PATIENT NAME: ANA MARIA TURCIOS Electrocardiogram DATE OF : 72 PHYSICIAN: JOSSIE MCLEAN MD REPORT #: [id number] REPORT IS CONFIDENTIAL AND NOT TO BE RELEASED WITHOUT AUTHORIZATION
== END 2020-11-03 02:12 | disposition home or self-care (01) ==
LOC: ED 01:06
DX: R10.13 Epigastric pain (principal); R11.0 Nausea; I10 Essential (primary) hypertension; Z86.16 Personal history of COVID-19; Z88.8 Allergy status to other drugs, medicaments and biological substances; Z91.040 Latex allergy status; Z88.5 Allergy status to narcotic agent; Z91.041 Radiographic dye allergy status; Z79.899 Other long term (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; Z79.4 Long term (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
CPT/HCPCS: 93005; 93010; 96372; 99284-25; J1630

== ENCOUNTER 2020-11-27 18:17 | Emergency (ER) | payer OTHER ==
[~2020-11-27] VITALS: Ht 167.6 cm; Wt 98.4 kg
--- OUTSIDE RECORDS SUMMARY | 2020-11-27 18:20 | XMS ---
PreManage Notification: ANA MARIA TURCIOS Security Director Of Casework Department Events 1 event(s) in the past 18 months Most recent security events: Elopement at [facility] 08/04/2020 18:29 - Other Details: PATIENT LWBS. CRITERIA MET - Group Notification - 6 ED Visits in 6 Months - [facility] - 2 Visits in 30 Days CARE PROVIDERS YULISA MELGAR [facility] 03/14/2018-Current PHONE: Unknown BOLIVAR SAVAGE Physician Care Clinician 03/15/2019-Current PHONE: Unknown Santo Abrams [facility] 07/10/2018-Current PHONE: [phone] [facility] 06/11/2019-[facility] PHONE: [phone] Claudia has no Care Guidelines for this patient. Care History Medical/Surgical 11/03/2020 [facility] - CHW CONTACTED CLOTH FINISHER VALERIA AT [facility]. - PATIENT IS WORKING WITH [facility] - CHRONIC DISEASE (DIABETES MGMNT) LAST APT 10/29/20 NEXT APT SCHEDULED 11/07/20. - PATIENT LAST APT WITH PCP WAS ON 10/07/2020. - PATIENT DOES HAVE A REFERRAL TO [facility]- BEHAVIORAL HEALTH COUNSELOR AT [facility] OF 10/29/20 REFERRAL WAS MADE AND CURRENTLY PENDING - PATIENT HAS A PENDING CARDIOLOGY REFERRAL Care Recommendation: - PLEASE REVIEW PDMP - CLAUDIA - USE EXTREME CAUTION IN GIVING NARCOTICS. - Avoid Discharge Narcotic prescriptions if at all possible. Physician discretion. 08/13/2020 [facility] - PATIENT IS CURRENTLY ENROLLED WITH CHRONIC DISEASE-PHARMACY\T\nbsp; (DIABETES MED MANAGEMENT) AT [facility] - PATIENT HAS A COUNSELOR - SEES ON A CONSISTENT BASIS - COUNSELOR VALERIA JASSO. - 07/15/2020 PCP VISIT- PT CONSULT WAS REQUESTED, XRAY, REFERRAL FOR MRI. 08/09/2019 [facility] \T\middot;\T\nbsp; PATIENT- [facility] ELIGIBLE \T\middot;\T\nbsp; PLEASE REFER PATIENT TO [facility] FOR NON EMERGENT MEDICAL NEEDS. \T\middot;\ T\nbsp; [facility] CAN SEE PATIENTS SAME DAY FOR APTS IF PATIENT CALLS FIRST THING IN THE MORNING. E.D. VISIT COUNT (12 MO.) 14 [facility] TOTAL 14 NOTE: Visits indicate total known visits. 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 [place] TYPE: Emergency COMPLAINT: - STOMACH PAIN DIAGNOSES: - Essential (primary) hypertension - termite control service representative (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 - Epigastric pain - Latex allergy status - Lower abdominal pain, unspecified - Other detention (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 - Allergy status to narcotic agent - Allergy status to other drugs, medicaments and biological substances 11/01/2020 12:57 [facility] [place] TYPE: Emergency COMPLAINT: - ABD PAIN, DIARRHEA DIAGNOSES: - Latex allergy status - Allergy status to other drugs, medicaments and biological substances - Essential (primary) hypertension - Other nonmedicinal substance allergy status - Other detention (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 - Allergy status to narcotic agent - Noninfective gastroenteritis and colitis, unspecified - Radiographic dye allergy status - prison (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 - Unspecified abdominal pain 09/27/2020 15:[address] 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 - Latex allergy status - prison (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 - Type 2 diabetes mellitus with hyperglycemia - Radiographic dye allergy status 09/02/2020 13:12 [facility] [place] TYPE: Emergency COMPLAINT: - FLANK PAIN, URINE PROBLEM DIAGNOSES: - Dysuria - Allergy status to narcotic agent - Radiographic dye allergy status - Allergy status to other drugs, medicaments and biological substances - Other detention (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 - Essential (primary) hypertension - Latex allergy status 08/08/2020 19:35 [facility] [place] TYPE: Emergency COMPLAINT: - HEADACHE DIAGNOSES: - Other detention (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 - Allergy status to narcotic agent - Allergy status to other drugs, medicaments and biological substances - Headache, unspecified - Chest pain, unspecified - Essential (primary) hypertension - Allergy status to narcotic agent - Allergy status to other drugs, medicaments and biological substances - Headache, unspecified - Radiographic dye allergy status - PERSONAL HISTORY OF COVID-19 - termite control service representative (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 - Latex allergy [...] substances - Latex allergy status - 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 - Allergy status to other drugs, medicaments and biological substances - Allergy status to narcotic agent - termite control service representative (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 05/21/2020 20:48 [facility] [place] TYPE: Emergency COMPLAINT: - SKIN PROBLEM DIAGNOSES: - Allergy status to other drugs, medicaments and biological substances - Allergy status to narcotic agent - Allergy status to narcotic agent - Essential (primary) hypertension - 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 - Cyst of Bartholin's gland - Allergy status to other drugs, medicaments and biological substances - termite control service representative (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 - Latex allergy status - Candidiasis of vulva and vagina 04/02/2020 17:42 [facility] [place] TYPE: Emergency COMPLAINT: - SOB/ COVID 02/24/2020 17:36 [facility] [place] TYPE: Emergency COMPLAINT: - PAIN- CHEST/ARM DIAGNOSES: - Chest pain, unspecified - Latex allergy status - Allergy status to other drugs, medicaments and biological substances - Radiographic dye allergy status - Other chest pain - Allergy status to narcotic agent - 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 - termite control service representative (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 - Essential (primary) [...] Personal history of nicotine dependence - 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 - prison (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 - Essential (primary) hypertension 12/09/2019 21:49 [facility] [place] TYPE: Emergency COMPLAINT: - POSSIBLE INFECTION DIAGNOSES: - Essential (primary) hypertension - Cutaneous abscess of perineum - Allergy status to narcotic agent - Radiographic dye allergy status - Cutaneous abscess of perineum - Other detention (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 - Latex allergy status INPATIENT VISIT TRACKING (12 MO.) 04/02/2020 21:14 [facility] [place] TYPE: Medical Surgical COMPLAINT: - SARS-COV-2 PNA DIAGNOSES: - Unspecified asthma, uncomplicated - Acute respiratory failure with hypoxia - Other detention (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 - Radiographic dye allergy status - termite control service representative (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 - Other viral pneumonia - COVID-19 - termite control service representative (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 of inhaled steroids - Latex allergy status - Essential (primary) hypertension - Type 2 diabetes mellitus with hyperglycemia - Allergy status to narcotic agent - Hyperlipidemia, unspecified - Allergy status to anesthetic agent [email or web address]
[2020-11-27] MEDS ORDERED: PRILOSEC OTC20 MG PO (19:34)
== END 2020-11-27 19:45 | disposition home or self-care (01) ==
LOC: ED 18:17
DX: K22.8 Other specified diseases of esophagus (principal); I10 Essential (primary) hypertension; Z86.16 Personal history of COVID-19; Z88.8 Allergy status to other drugs, medicaments and biological substances; Z91.040 Latex allergy status; Z88.5 Allergy status to narcotic agent; Z91.041 Radiographic dye allergy status; Z79.899 Other long term (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; Z79.4 Long term (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
CPT/HCPCS: 99283

== ENCOUNTER 2021-01-10 16:04 | Emergency (ER) | payer OTHER ==
[~2021-01-10] VITALS: Ht 165.1 cm; Wt 98.4 kg
[~2021-01-10 16:04] MED LIST changes: +PRILOSEC OTC20 MG PO
--- OUTSIDE RECORDS SUMMARY | 2021-01-10 16:06 | XMS ---
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 08/04/2020 18:29 - Other Details: PATIENT LWBS. CRITERIA MET - Group Notification - 6 ED Visits in 6 Months CARE PROVIDERS YULISA MELGAR Family Medicine 03/14/2018-Current PHONE: [phone] BOLIVAR SAVAGE Physician 03/15/2019-Current PHONE: Unknown Santo Abrams [facility] 07/10/2018-Current PH[facility]: [phone] [facility] [place] [facility] PHONE: [phone] Claudia has no Care Guidelines for this patient. Care History Medical/Surgical 11/03/[address] [facility] - CHW CONTACTED CUSTOMER CARE PROFESSIONAL VALERIA AT [facility]. - PATIENT IS WORKING WITH [facility] - CHRONIC DISEASE (DIABETES MGMNT) LAST APT 10/29/20 NEXT APT SCHEDULED 11/07/20. - PATIENT LAST APT WITH PCP WAS ON 10/07/2020. - PATIENT DOES HAVE A REFERRAL TO SANTO DOMINGUEZ- BEHAVIORAL HEALTH COUNSELOR AT [facility] OF 10/29/20 REFERRAL WAS MADE AND CURRENTLY PENDING - PATIENT HAS A PENDING CARDIOLOGY REFERRAL Care Recommendation: - PLEASE REVIEW PDMP - CLAUDIA - USE EXTREME CAUTION IN GIVING NARCOTICS. - Avoid Discharge Narcotic prescriptions if at all possible. Physician discretion. 08/13/[address] [facility] - PATIENT IS CURRENTLY ENROLLED WITH CHRONIC DISEASE-PHARMACY\T\nbsp; (DIABETES MED MANAGEMENT) AT [facility] - PATIENT HAS A COUNSELOR - SEES ON A CONSISTENT BASIS - COUNSELOR VALERIA JASSO. - 07/15/2020 PCP VISIT- PT CONSULT WAS REQUESTED, XRAY, REFERRAL FOR MRI. 08/09/[address] [facility] \T\middot;\T\nbsp; PATIENT- [facility] ELIGIBLE \T\middot;\T\nbsp; PLEASE REFER PATIENT TO [facility] FOR NON EMERGENT MEDICAL NEEDS. \T\middot;\ T\nbsp; [facility] CAN SEE PATIENTS SAME DAY FOR APTS IF PATIENT CALLS FIRST THING IN THE MORNING. E.D. VISIT COUNT (12 MO.) [address] [facility] [address] [facility] TOTAL 14 NOTE: Visits indicate total known visits. 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 - Other specified diseases of esophagus - Unspecified foreign body in esophagus causing other injury, initial encounter - Latex allergy status - Allergy status to narcotic agent - Other mcc (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 - Radiographic dye allergy status - Other specified diseases of esophagus - Allergy status to other drugs, medicaments and biological substances - Essential (primary) hypertension 11/03/2020 01:06 [facility] [place] TYPE: Emergency COMPLAINT: - UTERINE PROBLEM DIAGNOSES: - Latex allergy status - Epigastric pain - Nausea - Radiographic dye allergy status - Allergy status to narcotic agent - residential (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 - Unspecified abdominal pain - Allergy status to other drugs, medicaments and biological substances - Essential (primary) hypertension - Other predatory animal exterminator (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 11/02/2020 20:07 [facility] [place] TYPE: Emergency COMPLAINT: - STOMACH PAIN DIAGNOSES: - Essential (primary) hypertension - 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 dispatcher (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 - Epigastric pain - Latex allergy status - Lower abdominal pain, unspecified - Other mcc (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 - Allergy status to narcotic agent - Allergy status to other drugs, medicaments and biological substances 11/01/2020 12:57 [facility] [place] TYPE: Emergency COMPLAINT: - ABD PAIN, DIARRHEA DIAGNOSES: - Latex allergy status - Allergy status to other drugs, medicaments and biological substances - Essential (primary) hypertension - Other nonmedicinal substance allergy status - Other mcc (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 - Allergy status to narcotic agent - Noninfective gastroenteritis and colitis, unspecified - Radiographic dye allergy status - residential (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 - Unspecified abdominal pain 09/27/2020 15:01 [facility] [place] TYPE: Emergency COMPLAINT: - CHEST PAINS DIAGNOSES: - Allergy status to other drugs, medicaments and biological substances - Chest pain, unspecified - Essential (primary) hypertension - Allergy status to narcotic agent - Other predatory animal exterminator (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 - Latex allergy status - residential (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 - Type 2 diabetes mellitus with hyperglycemia - Radiographic dye allergy status 09/02/2020 13:12 [facility] [place] TYPE: Emergency COMPLAINT: - FLANK PAIN, URINE PROBLEM DIAGNOSES: - Dysuria - Allergy status to narcotic agent - Radiographic dye allergy status - Allergy status to other drugs, medicaments and biological substances - Other mcc (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 - Essential (primary) hypertension - Latex allergy status 08/08/2020 19:35 [facility] [place] TYPE: Emergency COMPLAINT: - HEADACHE DIAGNOSES: - Other predatory animal exterminator (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 - Allergy status to narcotic agent - Allergy status to other drugs, medicaments and biological substances - Headache, unspecified - Chest pain, unspecified - Essential (primary) hypertension - Allergy status to narcotic agent - Allergy status to other drugs, medicaments and biological substances - Headache, unspecified - Radiographic dye allergy status - PERSONAL HISTORY OF COVID-19 - residential (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 - Latex allergy [...] substances - Latex allergy status - Other predatory animal exterminator (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 - Allergy status to other drugs, medicaments and biological substances - Allergy status to narcotic agent - 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 dispatcher (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 05/21/2020 20:48 [facility] [place] TYPE: Emergency COMPLAINT: - SKIN PROBLEM DIAGNOSES: - Allergy status to other drugs, medicaments and biological substances - Allergy status to narcotic agent - Allergy status to narcotic agent - Essential (primary) hypertension - Other mcc (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 - Cyst of Bartholin's gland - Allergy status to other drugs, medicaments and biological substances - residential (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 - Latex allergy [...] Allergy status to narcotic agent - Other mcc (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 - intermodal dispatcher (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 - Essential (primary) [...] Personal history of nicotine dependence - Other predatory animal exterminator (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 - residential (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 - Essential (primary) hypertension INPATIENT VISIT TRACKING (12 MO.) 04/02/2020 21:14 [facility] [place] TYPE: Medical Surgical COMPLAINT: - SARS-COV-2 PNA DIAGNOSES: - Unspecified asthma, uncomplicated - Acute respiratory failure with hypoxia - Other mcc (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 - Radiographic dye allergy status - intermodal dispatcher (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 - Other viral pneumonia - COVID-19 - intermodal dispatcher (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 of inhaled steroids - Latex allergy status - Essential (primary) hypertension - Type 2 diabetes mellitus with hyperglycemia - Allergy status to narcotic agent - Hyperlipidemia, unspecified - Allergy status to anesthetic agent [email or web address]
[2021-01-10] MEDS ORDERED: CLEOCIN HCL300 MG PO (18:09)
[2021-01-11] MEDS ORDERED: MONTELUKAST SOD10 MG (22:35)
[2021-01-11] MEDS ORDERED: VICTOZA 3-0.6 MG/0.1 (22:35)
[2021-01-11] MEDS ORDERED: NOVOLOG FL100 UNIT/1 (22:36)
[2021-01-11] MEDS ORDERED: CETIRIZINE HCL10 MG (22:36)
[2021-01-11] MEDS ORDERED: METOPROLOL SUCC25 MG (22:36)
== END 2021-01-10 20:41 | disposition home or self-care (01) ==
LOC: ED 16:04
DX: N73.9 Female pelvic inflammatory disease, unspecified (principal); B37.2 Candidiasis of skin and nail; I10 Essential (primary) hypertension; Z91.040 Latex allergy status; Z88.8 Allergy status to other drugs, medicaments and biological substances; Z88.5 Allergy status to narcotic agent; Z79.899 Other long term (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; Z79.4 Long term (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; Z86.16 Personal history of COVID-19
CPT/HCPCS: 10060; 51798; 81001; 87070; 87205; 99283-25; J1815; J7030

== ENCOUNTER 2021-01-11 22:14 | Emergency (ER) | payer OTHER ==
[~2021-01-11] VITALS: Ht 165.1 cm; Wt 98.4 kg
--- OUTSIDE RECORDS SUMMARY | 2021-01-11 22:18 | XMS ---
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 CRITERIA MET - Group Notification - 6 ED Visits in 6 Months - [facility] - 2 Visits in 30 Days CARE PROVIDERS YULISA MELGAR [facility] 03/14/2018-Current PHONE: [phone] BOLIVAR SAVAGE Physician Magazine Supervisor 03/15/2019-Current PHONE: Unknown Santo Abrams [facility] 07/10/2018-Current PHONE: [phone] [facility] 06/11/2019-[facility] PHONE: [phone] Claudia has no Care Guidelines for this patient. Care History Medical/Surgical 11/03/2020 [facility] - CHW CONTACTED COLOR WORKER VALERIA AT [facility]. - PATIENT IS WORKING WITH [facility] - CHRONIC DISEASE (DIABETES MGMNT) LAST APT 10/29/20 NEXT APT SCHEDULED 11/07/20. - PATIENT LAST APT WITH PCP WAS ON 10/07/2020. - PATIENT DOES HAVE A REFERRAL TO SANTO DOMINGUEZ- BEHAVIORAL HEALTH COUNSELOR AT [facility] OF 10/29/20 REFERRAL WAS MADE AND CURRENTLY PENDING - PATIENT HAS A PENDING CARDIOLOGY REFERRAL Care Recommendation: - PLEASE REVIEW PDMP - CLAUDIA - USE EXTREME CAUTION IN GIVING NARCOTICS. - Avoid Discharge Narcotic prescriptions if at all possible. Physician discretion. 08/13/2020 [facility] - PATIENT IS CURRENTLY ENROLLED WITH CHRONIC DISEASE-PHARMACY\T\nbsp; (DIABETES MED MANAGEMENT) AT [facility] - PATIENT HAS A COUNSELOR - SEES ON A CONSISTENT BASIS - COUNSELOR VALERIA JASSO. - 07/15/2020 PCP VISIT- PT CONSULT WAS REQUESTED, XRAY, REFERRAL FOR MRI. 08/09/2019 [facility] \T\middot;\T\nbsp; PATIENT- [facility] ELIGIBLE \T\middot;\T\nbsp; PLEASE REFER PATIENT TO [facility] FOR NON EMERGENT MEDICAL NEEDS. \T\middot;\ T\nbsp; [facility] CAN SEE PATIENTS SAME DAY FOR APTS IF PATIENT CALLS FIRST THING IN THE MORNING. E.D. VISIT COUNT (12 MO.) 15 [facility] TOTAL 15 NOTE: Visits indicate total known visits. ED/UCC VISIT TRACKING (12 MO.) 01/11/2021 22:15 [facility] [place] TYPE: Emergency COMPLAINT: - NO BOWEL MOVEMENT 01/10/2021 16:04 [facility] [place] TYPE: Emergency COMPLAINT: - SKIN PROBLEM 11/27/2020 18:17 [facility] [place] TYPE: Emergency COMPLAINT: - THROAT PROBLEM DIAGNOSES: - MCFP (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 - Other specified diseases of esophagus - Unspecified foreign body in esophagus causing other injury, initial encounter - Latex allergy status - Allergy status to narcotic agent - Other assisted (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 - Radiographic dye allergy status - Other specified diseases of esophagus - Allergy status to other drugs, medicaments and biological substances - Essential (primary) hypertension 11/03/2020 01:06 [facility] [place] TYPE: Emergency COMPLAINT: - UTERINE PROBLEM DIAGNOSES: - Latex allergy status - Epigastric pain - Nausea - Radiographic dye allergy status - Allergy status to narcotic agent - MCFP (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 - Unspecified abdominal pain - Allergy status to other drugs, medicaments and biological substances - Essential (primary) hypertension - Other buttermaker (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 11/02/2020 20:07 [facility] [place] TYPE: Emergency COMPLAINT: - STOMACH PAIN DIAGNOSES: - Essential (primary) hypertension - 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 (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 - Epigastric pain - Latex allergy status - Lower abdominal pain, unspecified - Other buttermaker (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 - Allergy status to narcotic agent - Allergy status to other drugs, medicaments and biological substances 11/01/2020 12:57 [facility] [place] TYPE: Emergency COMPLAINT: - ABD PAIN, DIARRHEA DIAGNOSES: - Latex allergy status - Allergy status to other drugs, medicaments and biological substances - Essential (primary) hypertension - Other nonmedicinal substance allergy status - Other assisted (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 - Allergy status to narcotic agent - Noninfective gastroenteritis and colitis, unspecified - Radiographic dye allergy status - 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 (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 - Unspecified abdominal pain 09/27/2020 15:01 [facility] [place] TYPE: Emergency COMPLAINT: - CHEST PAINS DIAGNOSES: - Allergy status to other drugs, medicaments and biological substances - Chest pain, unspecified - Essential (primary) hypertension - Allergy status to narcotic agent - Other buttermaker (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 - Latex allergy status - 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 (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 - Type 2 diabetes mellitus with hyperglycemia - Radiographic dye allergy status 09/02/2020 13:12 [facility] [place] TYPE: Emergency COMPLAINT: - FLANK PAIN, URINE PROBLEM DIAGNOSES: - Dysuria - Allergy status to narcotic agent - Radiographic dye allergy status - Allergy status to other drugs, medicaments and biological substances - Other buttermaker (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 - Essential (primary) hypertension - Latex allergy status 08/08/2020 19:35 [facility] [place] TYPE: Emergency COMPLAINT: - HEADACHE DIAGNOSES: - Other buttermaker (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 - Allergy status to narcotic agent - Allergy status to other drugs, medicaments and biological substances - Headache, unspecified - Chest pain, unspecified - Essential (primary) hypertension - Allergy status to narcotic agent - Allergy status to other drugs, medicaments and biological substances - Headache, unspecified - Radiographic dye allergy status - PERSONAL HISTORY OF COVID-19 - MCFP (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 - Latex allergy [...] substances - Latex allergy status - Other assisted (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 - Allergy status to other drugs, medicaments and biological substances - Allergy status to narcotic agent - MCFP (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 05/21/2020 20:48 [facility] [place] TYPE: Emergency COMPLAINT: - SKIN PROBLEM DIAGNOSES: - Allergy status to other drugs, medicaments and biological substances - Allergy status to narcotic agent - Allergy status to narcotic agent - Essential (primary) hypertension - Other assisted (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 - Cyst of Bartholin's gland - Allergy status to other drugs, medicaments and biological substances - MCFP (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 - Latex allergy [...] Allergy status to narcotic agent - Other buttermaker (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 - MCFP (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 - Essential (primary) [...] Personal history of nicotine dependence - Other assisted (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 - 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 (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 - Essential (primary) hypertension INPATIENT VISIT TRACKING (12 MO.) 04/02/2020 21:14 [facility] [place] TYPE: Medical Surgical COMPLAINT: - SARS-COV-2 PNA DIAGNOSES: - Unspecified asthma, uncomplicated - Acute respiratory failure with hypoxia - Other buttermaker (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 - Radiographic dye allergy status - 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
[2021-01-11] MEDS ORDERED: VICTOZA 3-0.6 MG/0.1 (22:35)
[2021-01-11] MEDS ORDERED: MONTELUKAST SOD10 MG (22:35)
[2021-01-11] MEDS ORDERED: CETIRIZINE HCL10 MG (22:36)
[2021-01-11] MEDS ORDERED: NOVOLOG FL100 UNIT/1 (22:36)
[2021-01-11] MEDS ORDERED: METOPROLOL SUCC25 MG (22:36)
== END 2021-01-12 00:25 | disposition home or self-care (01) ==
LOC: ED 22:14
DX: K59.00 Constipation, unspecified (principal); I10 Essential (primary) hypertension; Z86.16 Personal history of COVID-19; Z88.8 Allergy status to other drugs, medicaments and biological substances; Z88.5 Allergy status to narcotic agent; Z91.040 Latex allergy status; Z91.041 Radiographic dye allergy status; Z79.899 Other long term (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; Z79.4 Long term (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
CPT/HCPCS: 99283

== ENCOUNTER 2021-01-15 16:48 | Emergency (ER) | payer OTHER ==
[~2021-01-15] VITALS: Ht 165.1 cm; Wt 98.4 kg
[~2021-01-15 16:48] MED LIST changes: +CETIRIZINE HCL10 MG; +METOPROLOL SUCC25 MG; +MONTELUKAST SOD10 MG; +NOVOLOG FL100 UNIT/1; +VICTOZA 3-0.6 MG/0.1
[2021-01-15] MEDS ORDERED: ACETAMINOPHEN-1 EAC1 PO (17:09)
[2021-01-15] MEDS ORDERED: CLINDAMYCIN HC300 MG PO (17:09)
[2021-01-15] MEDS ORDERED: HYDROCORTISO453.6 GM TOP (17:09)
[2021-01-15] MEDS ORDERED: AMOXICILLIN500 MG (17:09)
[2021-01-15] MEDS ORDERED: CELECOXIB100 MG PO (17:10)
--- OUTSIDE RECORDS SUMMARY | 2021-01-15 17:16 | XMS ---
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 CRITERIA MET - Group Notification - 6 ED Visits in 6 Months - [facility] - 2 Visits in 30 Days CARE PROVIDERS YULISA MELGAR [facility] 03/14/2018-Current PHONE: [phone] BOLIVAR SAVAGE Physician Jet Handler 03/15/2019-Current PHONE: Unknown Santo Abrams [facility] 07/10/2018-Current PHONE: [phone] [facility] 06/11/2019-[facility] PHONE: [phone] Claudia has no Care Guidelines for this patient. Care History Medical/Surgical 11/03/2020 [facility] - CHW CONTACTED GOLDSMITH APPRENTICE VALERIA AT [facility]. - PATIENT IS WORKING WITH [facility] - CHRONIC DISEASE (DIABETES MGMNT) LAST APT 10/29/20 NEXT APT SCHEDULED 11/07/20. - PATIENT LAST APT WITH PCP WAS ON 10/07/2020. - PATIENT DOES HAVE A REFERRAL TO SANTO DOMINGUEZ- BEHAVIORAL HEALTH COUNSELOR AT [facility] OF 10/29/20 REFERRAL WAS MADE AND CURRENTLY PENDING - PATIENT HAS A PENDING CARDIOLOGY REFERRAL Care Recommendation: - PLEASE REVIEW PDMP - CLAUDIA - USE EXTREME CAUTION IN GIVING NARCOTICS. - Avoid Discharge Narcotic prescriptions if at all possible. Physician discretion. 08/13/2020 [facility] - PATIENT IS CURRENTLY ENROLLED WITH CHRONIC DISEASE-PHARMACY\T\nbsp; (DIABETES MED MANAGEMENT) AT [facility] - PATIENT HAS A COUNSELOR - SEES ON A CONSISTENT BASIS - COUNSELOR VALERIA JASSO. - 07/15/2020 PCP VISIT- PT CONSULT WAS REQUESTED, XRAY, REFERRAL FOR MRI. 08/09/2019 [facility] \T\middot;\T\nbsp; PATIENT- [facility] ELIGIBLE \T\middot;\T\nbsp; PLEASE REFER PATIENT TO [facility] FOR NON EMERGENT MEDICAL NEEDS. \T\middot;\ T\nbsp; [facility] CAN SEE PATIENTS SAME DAY FOR APTS IF PATIENT CALLS FIRST THING IN THE MORNING. E.D. VISIT COUNT (12 MO.) [address] [facility] [address] [facility] TOTAL 16 NOTE: Visits indicate total known visits. ED/UCC VISIT TRACKING (12 MO.) 01/15/2021 16:49 [facility] [place] TYPE: Emergency COMPLAINT: - FACIAL SWELLING 01/11/2021 22:15 [facility] [place] TYPE: Emergency COMPLAINT: - NO BOWEL MOVEMENT DIAGNOSES: - Constipation, unspecified - Essential (primary) hypertension - Other longterm (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 - Allergy status to narcotic agent - Latex allergy status - Allergy status to other drugs, medicaments and biological substances - roasterman (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 - Radiographic dye allergy status 01/10/2021 16:04 [facility] [place] TYPE: Emergency COMPLAINT: - SKIN PROBLEM DIAGNOSES: - Allergy status to other drugs, medicaments and biological substances - Other longterm (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 - Essential (primary) hypertension - Allergy status to narcotic agent - longterm (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 - Latex allergy status - Female pelvic inflammatory disease, unspecified - Candidiasis of skin and nail - Rash and other nonspecific skin eruption 11/27/2020 18:17 [facility] [place] TYPE: Emergency COMPLAINT: - THROAT PROBLEM DIAGNOSES: - longterm (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 - Other specified diseases of esophagus - Unspecified foreign body in esophagus causing other injury, initial encounter - Latex allergy status - Allergy status to narcotic agent - Other rn long term care (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 - Radiographic dye allergy status - Other specified diseases of esophagus - Allergy status to other drugs, medicaments and biological substances - Essential (primary) hypertension 11/03/2020 01:06 [facility] TYPE: Emergency COMPLAINT: - UTERINE PROBLEM DIAGNOSES: - Latex allergy status - Epigastric pain - Nausea - Radiographic dye allergy status - Allergy status to narcotic agent - roasterman (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 - Unspecified abdominal pain - Allergy status to other drugs, medicaments and biological substances - Essential (primary) hypertension - Other longterm (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 11/02/2020 20:07 [facility] [place] TYPE: Emergency COMPLAINT: - STOMACH PAIN DIAGNOSES: - Essential (primary) hypertension - longterm (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 - Epigastric pain - Latex allergy status - Lower abdominal pain, unspecified - Other rn long term care (current) [...] Other nonmedicinal substance allergy status - Other longterm (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 - Allergy status to narcotic agent - Noninfective gastroenteritis and colitis, unspecified - Radiographic dye allergy status - roasterman (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 - Unspecified abdominal pain 09/27/2020 15:01 [facility] [place] TYPE: Emergency COMPLAINT: - CHEST PAINS DIAGNOSES: - Allergy status to other drugs, medicaments and biological substances - Chest pain, unspecified - Essential (primary) hypertension - Allergy status to narcotic agent - Other rn long term care (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 - Latex allergy status - roasterman (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 - Type 2 diabetes mellitus with hyperglycemia - Radiographic dye allergy status 09/02/2020 13:12 [facility] [place] TYPE: Emergency COMPLAINT: - FLANK PAIN, URINE PROBLEM DIAGNOSES: - Dysuria - Allergy status to narcotic agent - Radiographic dye allergy status - Allergy status to other drugs, medicaments and biological substances - Other longterm (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 - Essential (primary) hypertension [...] substances - Latex allergy status - Other rn long term care (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 - Allergy status to other drugs, medicaments and biological substances - Allergy status to narcotic agent - roasterman (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 05/21/2020 20:48 [facility] [place] TYPE: Emergency COMPLAINT: - SKIN PROBLEM DIAGNOSES: - Allergy status to other drugs, medicaments and biological substances - Allergy status to narcotic agent - Allergy status to narcotic agent - Essential (primary) hypertension - Other longterm (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 - Cyst of Bartholin's gland - Allergy status to other drugs, medicaments and biological substances - roasterman (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 - Latex allergy [...] Allergy status to narcotic agent - Other rn long term care (current) drug therapy - longterm (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 - Essential (primary) [...] Personal history of nicotine dependence - Other rn long term care (current) drug therapy - roasterman (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 - Essential (primary) hypertension INPATIENT VISIT TRACKING (12 MO.) 04/02/2020 21:14 [facility] [place] TYPE: Medical Surgical COMPLAINT: - SARS-COV-2 PNA DIAGNOSES: - Unspecified asthma, uncomplicated - Acute respiratory failure with hypoxia - Other longterm (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 - Radiographic dye allergy status - roasterman (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 - Other viral pneumonia - COVID-19 - roasterman (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 of inhaled steroids - Latex allergy status - Essential (primary) hypertension - Type 2 diabetes mellitus with hyperglycemia - Allergy status to narcotic agent - Hyperlipidemia, unspecified - Allergy status to anesthetic agent [email or web address]
[2021-01-15] MEDS ORDERED: CLEOCIN HCL300 MG PO (19:25)
== END 2021-01-15 19:50 | disposition home or self-care (01) ==
LOC: ED 16:48
DX: K04.7 Periapical abscess without sinus (principal); I10 Essential (primary) hypertension; Z86.16 Personal history of COVID-19; Z88.8 Allergy status to other drugs, medicaments and biological substances; Z88.5 Allergy status to narcotic agent; Z91.040 Latex allergy status; Z91.041 Radiographic dye allergy status; Z79.899 Other long term (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; Z79.4 Long term (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
CPT/HCPCS: 80053; 85025; 96374; 96375; 99283-25; A9270; J2405; J3490

== ENCOUNTER 2021-03-25 01:08 | Emergency (ER) | payer OTHER ==
[~2021-03-25] VITALS: Ht 165.1 cm; Wt 98.4 kg
[~2021-03-25 01:08] MED LIST changes: +ACETAMINOPHEN-1 EAC1 PO; +AMOXICILLIN500 MG; +CELECOXIB100 MG PO; +CLINDAMYCIN HC300 MG PO; +HYDROCORTISO453.6 GM TOP
--- OUTSIDE RECORDS SUMMARY | 2021-03-25 01:10 | XMS ---
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 Elopement at [facility] 02/12/2021 23:26 - Other Details: PATIENT LWBS. Elopement at [facility] 08/04/2020 18:29 - Other Details: PATIENT LWBS. CRITERIA MET - PDMP - 6 ED Visits in 6 Months - Group Notification CARE PROVIDERS YULISA MELGAR [facility] 03/14/2018-Current PHONE: [phone] BOLIVAR SAVAGE Physician 03/15/2019-Current PHONE: Unknown Santo Abrams [facility] 07/10/2018-Current PHONE: [phone] [facility] 06/11/2019-[facility] PHONE: [phone] Claudia has no Care Guidelines for this patient. Care History Medical/Surgical 11/03/2020 [facility] - CHW CONTACTED TIRE REPAIRMAN VALERIA AT [facility]. - PATIENT IS WORKING WITH [facility] - CHRONIC DISEASE (DIABETES MGMNT) LAST APT 10/29/20 NEXT APT SCHEDULED 11/07/20. - PATIENT LAST APT WITH PCP WAS ON 10/07/2020. - PATIENT DOES HAVE A REFERRAL TO SANTO DOMINGUEZ- BEHAVIORAL HEALTH COUNSELOR AT [facility] OF 10/29/20 REFERRAL WAS MADE AND CURRENTLY PENDING - PATIENT HAS A PENDING CARDIOLOGY REFERRAL Care Recommendation: - PLEASE REVIEW PDMP - CLAUDIA - USE EXTREME CAUTION IN GIVING NARCOTICS. - Avoid Discharge Narcotic prescriptions if at all possible. Physician discretion. 08/13/2020 [facility] - PATIENT IS CURRENTLY ENROLLED WITH CHRONIC DISEASE-PHARMACY\T\nbsp; (DIABETES MED MANAGEMENT) AT [facility] - PATIENT HAS A COUNSELOR - SEES ON A CONSISTENT BASIS - COUNSELOR VALERIA JASSO. - 07/15/2020 PCP VISIT- PT CONSULT WAS REQUESTED, XRAY, REFERRAL FOR MRI. 08/09/2019 [facility] \T\middot;\T\nbsp; PATIENT- [facility] ELIGIBLE \T\middot;\T\nbsp; PLEASE REFER PATIENT TO [facility] FOR NON EMERGENT MEDICAL NEEDS. \T\middot;\ T\nbsp; [facility] CAN SEE PATIENTS SAME DAY FOR APTS IF PATIENT CALLS FIRST THING IN THE MORNING. E.D. VISIT COUNT (12 MO.) [address] [facility] TOTAL 17 NOTE: Visits indicate total known visits. ED/UCC VISIT TRACKING (12 MO.) 03/25/2021 01:08 [facility] [place] TYPE: Emergency COMPLAINT: - CHEST PAIN 02/13/2021 01:15 [facility] [place] TYPE: Emergency COMPLAINT: - FEET CRAMPING 02/12/2021 23:[address] 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 - Radiographic dye allergy status - Allergy status to narcotic agent - Periapical abscess without sinus - Other watermaster (current) drug therapy - Latex allergy status 01/11/2021 22:15 [facility] [place] TYPE: Emergency COMPLAINT: - NO BOWEL MOVEMENT DIAGNOSES: - Constipation, unspecified - Essential (primary) hypertension - Other watermaster (current) drug therapy - Allergy status to narcotic agent - Latex allergy status - Allergy status to other drugs, medicaments and biological substances - assisted (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 - Radiographic dye allergy status 01/10/2021 16:04 [facility] [place] TYPE: Emergency COMPLAINT: - SKIN PROBLEM DIAGNOSES: - Allergy status to other drugs, medicaments and biological substances - Other watermaster (current) drug therapy - Essential (primary) hypertension - Allergy status to narcotic agent - 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 - Latex allergy status - Female pelvic inflammatory disease, unspecified - Candidiasis of skin and nail - Rash and other nonspecific skin eruption 11/27/2020 18:17 [facility] [place] TYPE: Emergency COMPLAINT: - THROAT PROBLEM DIAGNOSES: - assisted (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 - Other specified diseases of esophagus - Unspecified foreign body in esophagus causing other injury, initial encounter - Latex allergy status - Allergy status to narcotic agent - Other skilled nursing (current) drug therapy - Radiographic dye allergy status - Other specified diseases of esophagus - Allergy status to other drugs, medicaments and biological substances - Essential (primary) hypertension 11/03/2020 01:06 [facility] [place] TYPE: Emergency COMPLAINT: - UTERINE PROBLEM DIAGNOSES: - Latex allergy status - Epigastric pain - Nausea - Radiographic dye allergy status - Allergy status to narcotic agent - 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 - Unspecified abdominal pain - Allergy status to other drugs, medicaments and biological substances - Essential (primary) hypertension - Other skilled nursing (current) drug therapy 11/02/2020 20:07 [facility] [place] TYPE: Emergency COMPLAINT: - STOMACH PAIN DIAGNOSES: - Essential (primary) hypertension - assisted (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 - Epigastric pain - Latex allergy status - Lower abdominal pain, unspecified - Other skilled nursing (current) drug therapy - Allergy status to narcotic agent - Allergy status to other drugs, medicaments and biological substances 11/01/2020 12:57 [facility] [place] TYPE: Emergency COMPLAINT: - ABD PAIN, DIARRHEA DIAGNOSES: - Latex allergy status - Allergy status to other drugs, medicaments and biological substances - Essential (primary) hypertension - Other nonmedicinal substance allergy status - Other watermaster (current) drug therapy - Allergy status to narcotic agent - Noninfective gastroenteritis and colitis, unspecified - Radiographic dye allergy status - assisted (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 - Unspecified abdominal pain 09/27/2020 15:01 [facility] [place] TYPE: Emergency COMPLAINT: - CHEST PAINS DIAGNOSES: - Allergy status to other drugs, medicaments and biological substances - Chest pain, unspecified - Essential (primary) hypertension - Allergy status to narcotic agent - Other skilled nursing (current) drug therapy - Latex allergy status - 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 - Type 2 diabetes mellitus with hyperglycemia - Radiographic dye allergy status 09/02/2020 13:12 [facility] [place] TYPE: Emergency COMPLAINT: - FLANK PAIN, URINE PROBLEM DIAGNOSES: - Dysuria - Allergy status to narcotic agent - Radiographic dye allergy status - Allergy status to other drugs, medicaments and biological substances - Other skilled nursing (current) drug therapy - Essential (primary) hypertension - Latex allergy status 08/08/2020 19:35 [facility] [place] TYPE: Emergency COMPLAINT: - HEADACHE DIAGNOSES: - Other skilled nursing (current) drug therapy - Allergy status to narcotic agent - Allergy status to other drugs, medicaments and biological substances - Headache, unspecified - Chest pain, unspecified - Essential (primary) hypertension - Allergy status to narcotic agent - Allergy status to other drugs, medicaments and biological substances - Headache, unspecified - Radiographic dye allergy status - PERSONAL HISTORY OF COVID-19 - assisted (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 - Latex allergy [...] substances - Latex allergy status - Other watermaster (current) drug therapy - Allergy status to other drugs, medicaments and biological substances - Allergy status to narcotic agent - 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 05/21/2020 20:48 [facility] [place] TYPE: Emergency COMPLAINT: - SKIN PROBLEM DIAGNOSES: - Allergy status to other drugs, medicaments and biological substances - Allergy status to narcotic agent - Allergy status to narcotic agent - Essential (primary) hypertension - Other watermaster (current) drug therapy - Cyst of Bartholin's gland - Allergy status to other drugs, medicaments and biological substances - 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 - Latex allergy status - Candidiasis of vulva and vagina 04/02/2020 17:42 [facility] [place] TYPE: Emergency COMPLAINT: - SOB/ COVID INPATIENT VISIT TRACKING (12 MO.) 04/02/2020 21:14 [facility] [place] TYPE: Medical Surgical COMPLAINT: - SARS-COV-2 PNA DIAGNOSES: - Unspecified asthma, uncomplicated - Acute respiratory failure with hypoxia - Other skilled nursing (current) drug therapy - Radiographic dye allergy status - 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
--- NOTE | 2021-03-25 16:55 | EKG ---
[facility] [address] [place] [address] Signed Normal sinus rhythm Normal ECG When compared with ECG of 03-NOV-2020 01:40, T wave amplitude has decreased in Anterior leads Confirmed by JERI JORDAN MD ([id number] on 03/25/2021 4:55:28 PM Electronically Signed By: JERI JORDAN MD 03/25/21 1655 PATIENT NAME: ANA MARIA TURCIOS Electrocardiogram DATE OF : 72 PHYSICIAN: JERI JORDAN MD REPORT #: [id number] REPORT IS CONFIDENTIAL AND NOT TO BE RELEASED WITHOUT AUTHORIZATION
== END 2021-03-25 06:12 | disposition home or self-care (01) ==
LOC: ED 01:08
DX: R07.89 Other chest pain (principal); E11.65 Type 2 diabetes mellitus with hyperglycemia; I10 Essential (primary) hypertension; Z86.16 Personal history of COVID-19; Z88.8 Allergy status to other drugs, medicaments and biological substances; Z88.5 Allergy status to narcotic agent; Z91.040 Latex allergy status; Z91.041 Radiographic dye allergy status; Z79.899 Other long term (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; Z79.4 Long term (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; Z91.19 Patient's noncompliance with other medical treatment and regimen
CPT/HCPCS: 71045; 80053; 83735; 84484; 85025; 93005; 93010; 96374; 99285-25; J1815; J7030

== ENCOUNTER 2021-04-06 15:37 | Emergency (ER) | payer OTHER ==
[~2021-04-06] VITALS: Ht 165.1 cm; Wt 88.9 kg
--- OUTSIDE RECORDS SUMMARY | 2021-04-06 15:40 | XMS ---
PreManage Notification: ANA MARIA TURCIOS Security Relay Tester Helper Events 3 event(s) in the past 18 months Most recent security events: Elopement at [facility] 02/13/2021 01:15 - Other Details: PATIENT LWBS. Elopement at [facility] 02/12/2021 23:26 - Other Details: PATIENT LWBS. Elopement at [facility] 08/04/2020 18:29 - Other Details: PATIENT LWBS. CRITERIA MET - PDMP - [facility] - 2 Visits in 30 Days - Group Notification - 6 ED Visits in 6 Months CARE PROVIDERS YULISA MELGAR [facility] 03/14/2018-Current PHONE: [phone] BOLIVAR SAVAGE Physician 03/15/2019-Current PHONE: Unknown Santo Abrams [facility] 07/10/2018-Current PHONE: [phone] [facility] 06/11/2019-[facility] PHONE: [phone] Claudia has no Care Guidelines for this patient. Care History Medical/Surgical 11/03/2020 [facility] - CHW CONTACTED WAREHOUSE SORTER VALERIA AT [facility]. - PATIENT IS WORKING WITH [facility] - CHRONIC DISEASE (DIABETES MGMNT) LAST APT 10/29/20 NEXT APT SCHEDULED 11/07/20. - PATIENT LAST APT WITH PCP WAS ON 10/07/2020. - PATIENT DOES HAVE A REFERRAL TO SANTO DOMINGUEZ- BEHAVIORAL HEALTH COUNSELOR AT [facility] OF 10/29/20 REFERRAL WAS MADE AND CURRENTLY PENDING - PATIENT HAS A PENDING CARDIOLOGY REFERRAL Care Recommendation: - PLEASE REVIEW PDMP - CLAUDIA - USE EXTREME CAUTION IN GIVING NARCOTICS. - Avoid Discharge Narcotic prescriptions if at all possible. Physician discretion. 08/13/2020 [facility] - PATIENT IS CURRENTLY ENROLLED WITH CHRONIC DISEASE-PHARMACY\T\nbsp; (DIABETES MED MANAGEMENT) AT [facility] - PATIENT HAS A COUNSELOR - SEES ON A CONSISTENT BASIS - COUNSELOR VALERIA JASSO. - 07/15/2020 PCP VISIT- PT CONSULT WAS REQUESTED, XRAY, REFERRAL FOR MRI. 08/09/2019 [facility] \T\middot;\T\nbsp; PATIENT- [facility] ELIGIBLE \T\middot;\T\nbsp; PLEASE REFER PATIENT TO [facility] FOR NON EMERGENT MEDICAL NEEDS. \T\middot;\ T\nbsp; [facility] CAN SEE PATIENTS SAME DAY FOR APTS IF PATIENT CALLS FIRST THING IN THE MORNING. E.D. VISIT COUNT (12 MO.) [address] [facility] TOTAL 17 NOTE: Visits indicate total known visits. ED/UCC VISIT TRACKING (12 MO.) 04/06/2021 15:37 [facility] [place] TYPE: Emergency COMPLAINT: - ABDOMINAL PAIN 03/25/2021 01:08 [facility] [place] TYPE: Emergency COMPLAINT: - CHEST PAIN DIAGNOSES: - Patient's noncompliance with other medical treatment and regimen - Type 2 diabetes mellitus with hyperglycemia - Radiographic dye allergy status - Allergy status to narcotic agent - Allergy status to other drugs, medicaments and biological substances - Other chest pain - Other prison (current) drug therapy - terminal carman (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 - Chest pain, unspecified - Latex allergy status - Essential (primary) hypertension 02/13/2021 01:15 [facility] [place] TYPE: Emergency COMPLAINT: - FEET CRAMPING 02/12/2021 23:26 [facility] [place] TYPE: Emergency COMPLAINT: - BODY CRAMPING 01/15/2021 16:49 [facility] [place] TYPE: Emergency COMPLAINT: - FACIAL SWELLING DIAGNOSES: - Essential (primary) hypertension - Allergy status to other drugs, medicaments and biological substances - care home (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 - Radiographic dye allergy status - Allergy status to narcotic agent - Periapical abscess without sinus - Other long wall shear operator (current) drug therapy - Latex allergy status 01/11/2021 22:15 [facility] [place] TYPE: Emergency COMPLAINT: - NO BOWEL MOVEMENT DIAGNOSES: - Constipation, unspecified - Essential (primary) hypertension - Other long wall shear operator (current) drug therapy - Allergy status to narcotic agent - Latex allergy status - Allergy status to other drugs, medicaments and biological substances - care home (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 - Radiographic dye allergy status 01/10/2021 16:04 [facility] [place] TYPE: Emergency COMPLAINT: - SKIN PROBLEM DIAGNOSES: - Allergy status to other drugs, medicaments and biological substances - Other prison (current) drug therapy - Essential (primary) hypertension - Allergy status to narcotic agent - care home (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 - Latex allergy status - Female pelvic inflammatory disease, unspecified - Candidiasis of skin and nail - Rash and other nonspecific skin eruption 11/27/2020 18:17 [facility] [place] TYPE: Emergency COMPLAINT: - THROAT PROBLEM DIAGNOSES: - terminal carman (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 - Other specified diseases of esophagus - Unspecified foreign body in esophagus causing other injury, initial encounter - Latex allergy status - Allergy status to narcotic agent - Other long wall shear operator (current) drug therapy - Radiographic dye allergy status - Other specified diseases of esophagus - Allergy status to other drugs, medicaments and biological substances - Essential (primary) hypertension 11/03/2020 01:06 [facility] [place] TYPE: Emergency COMPLAINT: - UTERINE PROBLEM DIAGNOSES: - Latex allergy status - Epigastric pain - Nausea - Radiographic dye allergy status - Allergy status to narcotic agent - terminal carman (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 - Unspecified abdominal pain - Allergy status to other drugs, medicaments and biological substances - Essential (primary) hypertension - Other long wall shear operator (current) drug therapy 11/02/2020 20:07 [facility] [place] TYPE: Emergency COMPLAINT: - STOMACH PAIN DIAGNOSES: - Essential (primary) hypertension - care home (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 - Epigastric pain - Latex allergy status - Lower abdominal pain, unspecified - Other prison (current) drug therapy - Allergy status to narcotic agent - Allergy status to other drugs, medicaments and biological substances 11/01/2020 12:[address] [facility] [place] TYPE: Emergency COMPLAINT: - ABD PAIN, DIARRHEA DIAGNOSES: - Latex allergy status - Allergy status to other drugs, medicaments and biological substances - Essential (primary) hypertension - Other nonmedicinal substance allergy status - Other long wall shear operator (current) drug therapy - Allergy status to narcotic agent - Noninfective gastroenteritis and colitis, unspecified - Radiographic dye allergy status - care home (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 - Unspecified abdominal pain 09/27/2020 15:01 [facility] [place] TYPE: Emergency COMPLAINT: - CHEST PAINS DIAGNOSES: - Allergy status to other drugs, medicaments and biological substances - Chest pain, unspecified - Essential (primary) hypertension - Allergy status to narcotic agent - Other prison (current) drug therapy - Latex allergy status - care home (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 - Type 2 diabetes mellitus with hyperglycemia - Radiographic dye allergy status 09/02/2020 13:[address] [facility] [place] TYPE: Emergency COMPLAINT: - FLANK PAIN, URINE PROBLEM DIAGNOSES: - Dysuria - Allergy status to narcotic agent - Radiographic dye allergy status - Allergy status to other drugs, medicaments and biological substances - Other long wall shear operator (current) drug therapy - Essential (primary) hypertension - Latex allergy status 08/08/2020 19:35 [facility] [place] TYPE: Emergency COMPLAINT: - HEADACHE DIAGNOSES: - Other long wall shear operator (current) drug therapy - Allergy status to narcotic agent - Allergy status to other drugs, medicaments and biological substances - Headache, unspecified - Chest pain, unspecified - Essential (primary) hypertension - Allergy status to narcotic agent - Allergy status to other drugs, medicaments and biological substances - Headache, unspecified - Radiographic dye allergy status - PERSONAL HISTORY OF COVID-19 - terminal carman (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 - Latex allergy [...] substances - Latex allergy status - Other long wall shear operator (current) drug therapy - Allergy status to other drugs, medicaments and biological substances - Allergy status to narcotic agent - terminal carman (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 05/21/2020 20:48 [facility] [place] TYPE: Emergency COMPLAINT: - SKIN PROBLEM DIAGNOSES: - Allergy status to other drugs, medicaments and biological substances - Allergy status to narcotic agent - Allergy status to narcotic agent - Essential (primary) hypertension - Other prison (current) drug therapy - Cyst of Bartholin's gland - Allergy status to other drugs, medicaments and biological substances - care home (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 - Latex allergy status - Candidiasis of vulva and vagina INPATIENT VISIT TRACKING (12 MO.) No inpatient visits to display in this time frame [email or web address]
== END 2021-04-06 16:50 | disposition home or self-care (01) ==
LOC: ED 15:37
DX: S39.011A Strain of muscle, fascia and tendon of abdomen, initial encounter (principal); X58.XXXA Exposure to other specified factors, initial encounter; I10 Essential (primary) hypertension; Z86.16 Personal history of COVID-19; Z88.8 Allergy status to other drugs, medicaments and biological substances; Z88.5 Allergy status to narcotic agent; Z91.041 Radiographic dye allergy status; Z91.048 Other nonmedicinal substance allergy status; Z79.899 Other long term (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; Z79.4 Long term (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
CPT/HCPCS: 76705; 99284-25; A9270

== ENCOUNTER 2021-06-06 11:13 | Emergency (ER) | payer OTHER ==
[~2021-06-06] VITALS: Ht 165.1 cm; Wt 88.9 kg
--- OUTSIDE RECORDS SUMMARY | 2021-06-06 11:18 | XMS ---
PreManage Notification: ANA MARIA TURCIOS Security Admission Nurse Events 3 event(s) in the past 18 months Most recent security events: Elopement at [facility] 02/13/2021 01:15 - Other Details: PATIENT LWBS. Elopement at [facility] 02/12/2021 23:26 - Other Details: PATIENT LWBS. Elopement at [facility] 08/04/2020 18:29 - Other Details: PATIENT LWBS. CRITERIA MET - 6 ED Visits in 6 Months - PDMP - Group Notification CARE PROVIDERS YULISA MELGAR [facility] 03/14/2018-Current PHONE: [phone] BOLIVAR SAVAGE Physician 03/15/2019-Current PHONE: Unknown Santo Abrams [facility] 07/10/2018-Current PHONE: [phone] [facility] 06/11/2019-[facility] PHONE: [phone] Claudia has no Care Guidelines for this patient. Care History Medical/Surgical 11/03/2020 [facility] - CHW CONTACTED FIRE RANGER VALERIA AT [facility]. - PATIENT IS WORKING WITH [employer] - CHRONIC DISEASE (DIABETES MGMNT) LAST APT 10/29/20 NEXT APT SCHEDULED 11/07/20. - PATIENT LAST APT WITH PCP WAS ON 10/07/2020. - PATIENT DOES HAVE A REFERRAL TO SANTO DOMINGUEZ- BEHAVIORAL HEALTH COUNSELOR AT [facility] OF 10/29/20 REFERRAL WAS MADE AND CURRENTLY PENDING - PATIENT HAS A PENDING CARDIOLOGY REFERRAL Care Recommendation: - PLEASE REVIEW PDMP - CLAUDIA - USE EXTREME CAUTION IN GIVING NARCOTICS. - Avoid Discharge Narcotic prescriptions if at all possible. Physician discretion. 08/13/2020 [facility] - PATIENT IS CURRENTLY ENROLLED WITH CHRONIC DISEASE-PHARMACY\T\nbsp; (DIABETES MED MANAGEMENT) AT [facility] - PATIENT HAS A COUNSELOR - SEES ON A CONSISTENT BASIS - COUNSELOR VALERIA JASSO. - 07/15/2020 PCP VISIT- PT CONSULT WAS REQUESTED, XRAY, REFERRAL FOR MRI. 08/09/2019 [facility] \T\middot;\T\nbsp; PATIENT- [facility] ELIGIBLE \T\middot;\T\nbsp; PLEASE REFER PATIENT TO [facility] FOR NON EMERGENT MEDICAL NEEDS. \T\middot;\ T\nbsp; [facility] CAN SEE PATIENTS SAME DAY FOR APTS IF PATIENT CALLS FIRST THING IN THE MORNING. E.D. VISIT COUNT (12 MO.) [address] [facility] TOTAL 17 NOTE: Visits indicate total known visits. ED/UCC VISIT TRACKING (12 MO.) 06/06/2021 11:15 [facility] [place] TYPE: Emergency COMPLAINT: - FEELS LIKE SHE HAS A PC OF FRIED POTATOE STUCK IN 04/06/2021 15:37 [facility] [place] TYPE: Emergency COMPLAINT: - ABDOMINAL PAIN DIAGNOSES: - Allergy status to narcotic agent - Strain of muscle, fascia and tendon of abdomen, initial encounter - Essential (primary) hypertension - termite treater helper (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 - Other termite treater helper (current) drug therapy - Other nonmedicinal substance allergy status - Right upper quadrant pain - Radiographic dye allergy status - Allergy status to other drugs, medicaments and biological substances - Exposure to other specified factors, initial encounter 03/25/2021 01:08 [facility] [place] TYPE: Emergency COMPLAINT: - CHEST PAIN DIAGNOSES: - Patient's noncompliance with other medical treatment and regimen - Type 2 diabetes mellitus with hyperglycemia - Radiographic dye allergy status - Allergy status to narcotic agent - Allergy status to other drugs, medicaments and biological substances - Other chest pain - Other care home (current) drug therapy - custodial (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 - Chest pain, unspecified - Latex allergy status - Essential (primary) hypertension 02/13/2021 01:15 [facility] [place] TYPE: Emergency COMPLAINT: - FEET CRAMPING 02/12/2021 23:[address] [facility] [address] [facility] [place] TYPE: Emergency COMPLAINT: - BODY CRAMPING 01/15/2021 16:49 [facility] [place] TYPE: Emergency COMPLAINT: - FACIAL SWELLING DIAGNOSES: - Essential (primary) hypertension - Allergy status to other drugs, medicaments and biological substances - custodial (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 - Radiographic dye allergy status - Allergy status to narcotic agent - Periapical abscess without sinus - Other termite treater helper (current) drug therapy - Latex allergy status 01/11/2021 22:15 [facility] [place] TYPE: Emergency COMPLAINT: - NO BOWEL MOVEMENT DIAGNOSES: - Constipation, unspecified - Essential (primary) hypertension - Other care home (current) drug therapy - Allergy status to narcotic agent - Latex allergy status - Allergy status to other drugs, medicaments and biological substances - custodial (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 - Radiographic dye allergy status 01/10/2021 16:[address] [facility] [address] [facility] [place] TYPE: Emergency COMPLAINT: - SKIN PROBLEM DIAGNOSES: - Allergy status to other drugs, medicaments and biological substances - Other termite treater helper (current) drug therapy - Essential (primary) hypertension - Allergy status to narcotic agent - termite treater helper (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 - Latex allergy status - Female pelvic inflammatory disease, unspecified - Candidiasis of skin and nail - Rash and other nonspecific skin eruption 11/27/2020 18:17 [facility] [place] TYPE: Emergency COMPLAINT: - THROAT PROBLEM DIAGNOSES: - custodial (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 - Other specified diseases of esophagus - Unspecified foreign body in esophagus causing other injury, initial encounter - Latex allergy status - Allergy status to narcotic agent - Other termite treater helper (current) drug therapy - Radiographic dye allergy status - Other specified diseases of esophagus - Allergy status to other drugs, medicaments and biological substances - Essential (primary) hypertension 11/03/2020 01:06 [facility] [place] TYPE: Emergency COMPLAINT: - UTERINE PROBLEM DIAGNOSES: - Latex allergy status - Epigastric pain - Nausea - Radiographic dye allergy status - Allergy status to narcotic agent - termite treater helper (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 - Unspecified abdominal pain - Allergy status to other drugs, medicaments and biological substances - Essential (primary) hypertension - Other care home (current) drug therapy 11/02/2020 20:07 [facility] [place] TYPE: Emergency COMPLAINT: - STOMACH PAIN DIAGNOSES: - Essential (primary) hypertension - termite treater helper (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 - Epigastric pain - Latex allergy status - Lower abdominal pain, unspecified - Other care home (current) drug therapy - Allergy status to narcotic agent - Allergy status to other drugs, medicaments and biological substances 11/01/2020 12:57 [facility] [place] TYPE: Emergency COMPLAINT: - ABD PAIN, DIARRHEA DIAGNOSES: - Latex allergy status - Allergy status to other drugs, medicaments and biological substances - Essential (primary) hypertension - Other nonmedicinal substance allergy status - Other care home (current) drug therapy - Allergy status to narcotic agent - Noninfective gastroenteritis and colitis, unspecified - Radiographic dye allergy status - custodial (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 - Unspecified abdominal pain 09/27/2020 15:01 [facility] [place] TYPE: Emergency COMPLAINT: - CHEST PAINS DIAGNOSES: - Allergy status to other drugs, medicaments and biological substances - Chest pain, unspecified - Essential (primary) hypertension - Allergy status to narcotic agent - Other care home (current) drug therapy - Latex allergy status - custodial (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 - Type 2 diabetes mellitus with hyperglycemia - Radiographic dye allergy status 09/02/2020 13:12 [facility] [place] TYPE: Emergency COMPLAINT: - FLANK PAIN, URINE PROBLEM DIAGNOSES: - Dysuria - Allergy status to narcotic agent - Radiographic dye allergy status - Allergy status to other drugs, medicaments and biological substances - Other care home (current) drug therapy - Essential (primary) hypertension - Latex allergy status 08/08/2020 19:35 [facility] [place] TYPE: Emergency COMPLAINT: - HEADACHE DIAGNOSES: - Other termite treater helper (current) drug therapy - Allergy status to narcotic agent - Allergy status to other drugs, medicaments and biological substances - Headache, unspecified - Chest pain, unspecified - Essential (primary) hypertension - Allergy status to narcotic agent - Allergy status to other drugs, medicaments and biological substances - Headache, unspecified - Radiographic dye allergy status - PERSONAL HISTORY OF COVID-19 - custodial (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 - Latex allergy status 08/04/2020 18:29 [facility] [place] TYPE: Emergency COMPLAINT: - HEADACHE DIAGNOSES: - Procedure and treatment not carried out due to patient leaving prior to being seen by health care provider 06/23/2020 17:[address] [facility] [place] TYPE: Emergency COMPLAINT: - RIGHT SIDED TINGLING DIAGNOSES: - Essential (primary) hypertension - Paresthesia of skin - Allergy status to narcotic agent - Allergy status to other drugs, medicaments and biological substances - Latex allergy status - Other termite treater helper (current) drug therapy - Allergy status to other drugs, medicaments and biological substances - Allergy status to narcotic agent - custodial (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 INPATIENT VISIT TRACKING (12 MO.) No inpatient visits to display in this time frame [email or web address]
== END 2021-06-06 13:55 | disposition home or self-care (01) ==
LOC: ED 11:13
DX: R07.0 Pain in throat (principal); I10 Essential (primary) hypertension; Z86.16 Personal history of COVID-19; Z88.5 Allergy status to narcotic agent; Z91.040 Latex allergy status; Z79.899 Other long term (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; Z79.4 Long term (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; Z91.041 Radiographic dye allergy status
CPT/HCPCS: 70360; 99283-25

== ENCOUNTER 2021-11-14 14:45 | Emergency (ER) | payer OTHER ==
[~2021-11-14] VITALS: Ht 165.1 cm; Wt 88.9 kg
[~2021-11-14 14:45] MED LIST changes: +BENADRYL ITCH28.3 GM TOP; +CEPHALEXIN500 M1 PO
--- OUTSIDE RECORDS SUMMARY | 2021-11-14 14:48 | XMS ---
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 CRITERIA MET - Group Notification - 6 ED Visits in 6 Months - [facility] - [facility] - 2 Visits in 30 Days CARE PROVIDERS YULISA MELGAR [facility] [place] 03/14/2018-Current PHONE: [phone] BOLIVAR SAVAGE Physician 03/15/2019-Current PHONE: Unknown Santo Abrams [facility] 07/10/2018-Current PHONE: [phone] [facility] 06/11/2019-[facility] PHONE: [phone] Claudia has no Care Guidelines for this patient. Care History Medical/Surgical 08/13/2021 [facility] - W CONTACTED YASEMIN PLUGGING MACHINE OPERATOR AT [facility]-DISCUSSED PATIENT ER VISITS WITH LWBS. - VALERIA RN FOR PATIENT PCP WILL FOLLOW UP WITH PATIENT AND THEY WILL PROVIDE TRANSPORTATION FOR PATIENT APT. 11/03/2020 [facility] - [facility] CONTACTED PLUGGING MACHINE OPERATOR VALERIA AT [facility]. - PATIENT IS WORKING WITH [employer] - CHRONIC DISEASE (DIABETES MGMNT) LAST APT 10/29/20 NEXT APT SCHEDULED 11/07/20. - PATIENT LAST APT WITH PCP WAS ON 10/07/2020. - PATIENT DOES HAVE A REFERRAL TO SANTO DOMINGUEZ- BEHAVIORAL HEALTH COUNSELOR AT [facility] OF 10/29/20 REFERRAL WAS MADE AND CURRENTLY PENDING - PATIENT HAS A PENDING CARDIOLOGY REFERRAL Care Recommendation: - PLEASE REVIEW PDMP - CLAUDIA - USE EXTREME CAUTION IN GIVING NARCOTICS. - Avoid Discharge Narcotic prescriptions if at all possible. Physician discretion. 08/13/2020 [facility] - PATIENT IS CURRENTLY ENROLLED WITH CHRONIC DISEASE-PHARMACY\T\nbsp; (DIABETES MED MANAGEMENT) AT [facility] - PATIENT HAS A COUNSELOR - SEES ON A CONSISTENT BASIS - COUNSELOR VALERIA JASSO. - 07/15/2020 PCP VISIT- PT CONSULT WAS REQUESTED, XRAY, REFERRAL FOR MRI. E.D. VISIT COUNT (12 MO.) 14 [facility] TOTAL 14 NOTE: Visits indicate total known visits. ED/UCC VISIT TRACKING (12 MO.) 11/14/2021 14:45 [facility] [place] TYPE: Emergency COMPLAINT: - MULTIPLE COMPLAINTS 11/02/2021 14:01 [facility] [place] TYPE: Emergency COMPLAINT: - SKIN PROBLEM 09/29/2021 12:24 [facility] [place] TYPE: Emergency COMPLAINT: - ANAL SORE DIAGNOSES: - Latex allergy status - Other rodent exterminator (current) drug therapy - Allergy status to narcotic agent - Cutaneous abscess of buttock - penitentiary (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 - Essential (primary) hypertension - Allergy status to other drugs, medicaments and biological substances 08/06/2021 19:[address] [facility] [place] TYPE: Emergency COMPLAINT: - GENTIAL PROBLEM 08/05/2021 19:20 [facility] [place] TYPE: Emergency COMPLAINT: - GENITAL PROBLEM 06/06/2021 11:15 [facility] [place] TYPE: Emergency COMPLAINT: - FEELS LIKE SHE HAS A PC OF FRIED POTATOE STUCK IN DIAGNOSES: - Pain in throat - terminal gauger (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 - Latex allergy status - Radiographic dye allergy status - Other snf (current) drug therapy - Essential (primary) hypertension - Allergy status to narcotic agent 04/06/2021 15:37 [facility] [place] TYPE: Emergency COMPLAINT: - ABDOMINAL PAIN DIAGNOSES: - Allergy status to narcotic agent - Strain of muscle, fascia and tendon of abdomen, initial encounter - Essential (primary) hypertension - terminal gauger (current) use of insulin - Other rodent exterminator (current) drug therapy - Other nonmedicinal substance [...] substances - Other chest pain - Other snf (current) drug therapy - terminal gauger (current) use of insulin - Chest pain, unspecified - Latex allergy status - Essential (primary) hypertension 02/13/2021 01:[address] [facility] [place] TYPE: Emergency COMPLAINT: - FEET CRAMPING 02/12/2021 23:26 [facility] [place] TYPE: Emergency COMPLAINT: - BODY CRAMPING 01/15/2021 16:49 [facility] [place] TYPE: Emergency COMPLAINT: - FACIAL SWELLING DIAGNOSES: - Essential (primary) hypertension - Allergy status to other drugs, medicaments and biological substances - terminal gauger (current) use of insulin - Radiographic dye allergy status - Allergy status to narcotic agent - Periapical abscess without sinus - Other snf (current) drug therapy - Latex allergy status 01/11/2021 22:15 [facility] [place] TYPE: Emergency COMPLAINT: - NO BOWEL MOVEMENT DIAGNOSES: - Constipation, unspecified - Essential (primary) hypertension - Other rodent exterminator (current) drug therapy - Allergy status to narcotic agent - Latex allergy status - Allergy status to other drugs, medicaments and biological substances - terminal gauger (current) use of insulin - Radiographic dye allergy status 01/10/2021 16:04 [facility] [place] TYPE: Emergency COMPLAINT: - SKIN PROBLEM DIAGNOSES: - Allergy status to other drugs, medicaments and biological substances - Other rodent exterminator (current) drug therapy - Essential (primary) hypertension - Allergy status to narcotic agent - terminal gauger (current) use of insulin - Latex allergy status - Female pelvic inflammatory disease, unspecified - Candidiasis of skin and nail - Rash and other nonspecific skin eruption 11/27/2020 18:17 [facility] [place] TYPE: Emergency COMPLAINT: - THROAT PROBLEM DIAGNOSES: - terminal gauger (current) use of insulin - Other specified diseases of esophagus - Unspecified foreign body in esophagus causing other injury, initial encounter - Latex allergy status - Allergy status to narcotic agent - Other rodent exterminator (current) drug therapy - Radiographic dye allergy status - Other specified diseases of esophagus - Allergy status to other drugs, medicaments and biological substances - Essential (primary) hypertension INPATIENT VISIT TRACKING (12 MO.) No inpatient visits to display in this time frame [email or web address]
[2021-11-15] MEDS ORDERED: METFORMIN HCL500 M1 PO (20:24)
== END 2021-11-14 19:09 | disposition home or self-care (01) ==
LOC: ED 14:45
DX: G43.109 Migraine with aura, not intractable, without status migrainosus (principal); I10 Essential (primary) hypertension; Z86.16 Personal history of COVID-19; Z88.8 Allergy status to other drugs, medicaments and biological substances; Z88.5 Allergy status to narcotic agent; Z91.041 Radiographic dye allergy status; Z91.040 Latex allergy status; Z79.899 Other long term (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; Z79.4 Long term (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
CPT/HCPCS: 96372; 99283; J1885; J3030

== ENCOUNTER 2021-11-15 20:08 | Emergency (ER) | payer OTHER ==
[~2021-11-15] VITALS: Ht 165.1 cm; Wt 89.3 kg
--- OUTSIDE RECORDS SUMMARY | 2021-11-15 20:10 | XMS ---
PreManage Notification: ANA MARIA TURCIOS Security Net Washer Events 5 event(s) in the past 18 months Most recent security events: Elopement at [facility] 08/06/2021 19:44 - Other Details: PATIENT LWBS Elopement at [facility] 08/05/2021 19:20 - Other Details: PATIENT LWBS Elopement at [facility] 02/13/2021 01:15 - Other Details: PATIENT LWBS. CRITERIA MET - 6 ED Visits in 6 Months - [facility] - 2 Visits in 30 Days - PDMP - Group Notification CARE PROVIDERS YULISA MELGAR [facility] 03/14/2018-Current PHONE: [phone] BOLIVAR SAVAGE Physician 03/15/2019-Current PHONE: Unknown Santo Abrams [facility] 07/10/2018-Current PHONE: [phone] [facility] 06/11/2019-[facility] PHONE: [phone] Claudia has no Care Guidelines for this patient. Care History Medical/Surgical 08/13/2021 [facility] - W CONTACTED YASEMIN STREAMING MEDIA SPECIALIST AT [facility]-DISCUSSED PATIENT ER VISITS WITH LWBS. - VALERIA RN FOR PATIENT PCP WILL FOLLOW UP WITH PATIENT AND THEY WILL PROVIDE TRANSPORTATION FOR PATIENT APT. 11/03/2020 [facility] - [facility] CONTACTED STREAMING MEDIA SPECIALIST VALERIA AT [facility]. - PATIENT IS WORKING WITH [employer] - CHRONIC DISEASE (DIABETES MGMNT) LAST APT [...] if at all possible. Physician discretion. 08/13/2020 [facility] - PATIENT IS CURRENTLY ENROLLED WITH CHRONIC DISEASE-PHARMACY\T\nbsp; (DIABETES MED MANAGEMENT) AT [facility] - PATIENT HAS A COUNSELOR - SEES ON A CONSISTENT BASIS - COUNSELOR VALERIA JASSO. - 07/15/2020 PCP VISIT- PT CONSULT WAS REQUESTED, XRAY, REFERRAL FOR MRI. E.D. VISIT COUNT (12 MO.) 15 [facility] TOTAL 15 NOTE: Visits indicate total known visits. ED/UCC VISIT TRACKING (12 MO.) 11/15/2021 20:08 [facility] [place] TYPE: Emergency COMPLAINT: - HEADACHE 11/14/2021 14:45 [facility] [place] TYPE: Emergency COMPLAINT: - MULTIPLE COMPLAINTS 11/02/2021 14:01 [facility] [place] TYPE: Emergency COMPLAINT: - SKIN PROBLEM 09/29/2021 12:24 [facility] [place] TYPE: Emergency COMPLAINT: - ANAL SORE DIAGNOSES: - Latex allergy status - Other watermelon inspector (current) drug therapy - Allergy status to narcotic agent - Cutaneous abscess of buttock - halfway (current) use of insulin - Essential (primary) hypertension - Allergy status to other drugs, medicaments and biological substances 08/06/2021 19:44 [facility] [place] TYPE: Emergency COMPLAINT: - GENTIAL PROBLEM 08/05/2021 19:20 [facility] [place] TYPE: Emergency COMPLAINT: - GENITAL PROBLEM 06/06/2021 11:15 [facility] [place] TYPE: Emergency COMPLAINT: - FEELS LIKE SHE HAS A PC OF FRIED POTATOE STUCK IN DIAGNOSES: - Pain in throat - continuous churn buttermaker (current) use of insulin - Latex allergy status - Radiographic dye allergy status - Other watermelon inspector (current) drug therapy - Essential (primary) hypertension - Allergy status to narcotic agent 04/06/2021 15:37 [facility] [place] TYPE: Emergency COMPLAINT: - ABDOMINAL PAIN DIAGNOSES: - Allergy status to narcotic agent - Strain of muscle, fascia and tendon of abdomen, initial encounter - Essential (primary) hypertension - halfway (current) use of insulin - Other detention (current) drug therapy - Other nonmedicinal substance [...] substances - Other chest pain - Other watermelon inspector (current) drug therapy - continuous churn buttermaker (current) use of insulin - Chest pain, [...] other drugs, medicaments and biological substances - continuous churn buttermaker (current) use of insulin - Radiographic dye allergy status - Allergy status to narcotic agent - Periapical abscess without sinus - Other detention (current) drug therapy - Latex allergy status 01/11/2021 22:15 [facility] [place] TYPE: Emergency COMPLAINT: - NO BOWEL MOVEMENT DIAGNOSES: - Constipation, unspecified - Essential (primary) hypertension - Other watermelon inspector (current) drug therapy - Allergy status to narcotic agent - Latex allergy status - Allergy status to other drugs, medicaments and biological substances - continuous churn buttermaker (current) use of insulin - Radiographic dye allergy status 01/10/2021 16:04 [facility] [place] TYPE: Emergency COMPLAINT: - SKIN PROBLEM DIAGNOSES: - Allergy status to other drugs, medicaments and biological substances - Other detention (current) drug therapy - Essential (primary) hypertension - Allergy status to narcotic agent - halfway (current) use of insulin - Latex allergy status - Female pelvic inflammatory disease, unspecified - Candidiasis of skin and nail - Rash and other nonspecific skin eruption 11/27/2020 18:17 [facility] [place] TYPE: Emergency COMPLAINT: - THROAT PROBLEM DIAGNOSES: - halfway (current) use of insulin - Other specified diseases of esophagus - Unspecified foreign body in esophagus causing other injury, initial encounter - Latex allergy status - Allergy status to narcotic agent - Other detention (current) drug therapy - Radiographic dye allergy status - Other specified diseases of esophagus - Allergy status to other drugs, medicaments and biological substances - Essential (primary) hypertension INPATIENT VISIT TRACKING (12 MO.) No inpatient visits to display in this time frame [email or web address]
[2021-11-15] MEDS ORDERED: METFORMIN HCL500 M1 PO (20:24)
== END 2021-11-15 22:46 | disposition home or self-care (01) ==
LOC: ED 20:08
DX: R51.9 Headache, unspecified (principal); I10 Essential (primary) hypertension; Z91.040 Latex allergy status; Z88.5 Allergy status to narcotic agent; Z91.041 Radiographic dye allergy status; Z79.899 Other long term (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; Z79.84 Long term (current) use of oral hypoglycemic drugs; Z79.4 Long term (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
CPT/HCPCS: 70450; 96374; 96375; 99284-25; J1200; J1885; J2765

== ENCOUNTER 2022-02-11 12:15 | Emergency (ER) | payer OTHER ==
[~2022-02-11] VITALS: Ht 165.1 cm; Wt 89.3 kg
[~2022-02-11 12:15] MED LIST changes: +METFORMIN HCL500 M1 PO
--- OUTSIDE RECORDS SUMMARY | 2022-02-11 12:18 | XMS ---
PreManage Notification: ANA MARIA TURCIOS Security Advice Clerk Events 5 event(s) in the past 18 months Most recent security events: Other at [facility] 11/02/2021 14:01 Details: PATIENT LWBS Elopement at [facility] 08/06/2021 19:44 - Other Details: PATIENT LWBS Elopement at [facility] 08/05/2021 19:20 - Other Details: PATIENT LWBS CRITERIA MET - Group Notification CARE PROVIDERS YULISA MELGAR [facility] 03/14/2018-Current PHONE: [phone] BOLIVAR SAVAGE 03/15/2019-Current PHONE: Unknown Santo Abrams [facility] 07/10/2018-Current PHONE: [phone] [facility] 06/11/2019-[facility] PHONE: [phone] Claudia has no Care Guidelines for this patient. Care History Medical/Surgical 08/13/2021 [facility] - W CONTACTED YASEMIN VACATION SALES ADVISOR AT [facility]-DISCUSSED PATIENT ER VISITS WITH LWBS. - VALERIA RN FOR PATIENT PCP WILL FOLLOW UP WITH PATIENT AND THEY WILL PROVIDE TRANSPORTATION FOR PATIENT APT. 11/03/2020 [facility] - W CONTACTED VACATION SALES ADVISOR VALERIA AT [facility]. - PATIENT IS WORKING WITH [facility] [facility] - CHRONIC DISEASE (DIABETES MGMNT) LAST APT 10/29/20 NEXT APT SCHEDULED 11/07/20. - PATIENT LAST APT WITH PCP WAS ON 10/07/2020. - PATIENT DOES HAVE A REFERRAL TO SANTO DOMINGUEZ- BEHAVIORAL HEALTH COUNSELOR AT [facility] OF 10/29/20 REFERRAL WAS MADE AND CURRENTLY PENDING - PATIENT HAS A PENDING CARDIOLOGY REFERRAL Care Recommendation: - PLEASE REVIEW PDMP - CLAUDIA - USE EXTREME CAUTION IN GIVING NARCOTICS. - Avoid Discharge Narcotic prescriptions if at all possible. Physician discretion. 08/13/2020 [facility] - PATIENT IS CURRENTLY ENROLLED WITH CHRONIC DISEASE-PHARMACY\T\nbsp; (DIABETES MED MANAGEMENT) AT [facility] - PATIENT HAS A COUNSELOR - SEES ON A CONSISTENT BASIS - COUNSELOR VALERIA JASSO. - 07/15/2020 PCP VISIT- PT CONSULT WAS REQUESTED, XRAY, REFERRAL FOR MRI. E.D. VISIT COUNT (12 MO.) [address] [facility] [address] [facility] TOTAL 12 NOTE: Visits indicate total known visits. ED/UCC VISIT TRACKING (12 MO.) 02/11/2022 12:[address] [facility] [place] TYPE: Emergency COMPLAINT: - L ARM NUMB/PAIN 11/15/2021 20:08 [facility] [place] TYPE: Emergency COMPLAINT: - HEADACHE DIAGNOSES: - correction (current) use of insulin - extermination supervisor (current) use of oral hypoglycemic drugs - Allergy status to narcotic agent - Headache, unspecified - Essential (primary) hypertension - Latex allergy status - Other termite helper (current) drug therapy - Radiographic dye allergy status 11/14/2021 14:45 [facility] [place] TYPE: Emergency COMPLAINT: - MULTIPLE COMPLAINTS DIAGNOSES: - Personal history of COVID-19 - Allergy status to narcotic agent - Headache, unspecified - Latex allergy status - Other retirement (current) drug therapy - extermination supervisor (current) use of insulin - Essential (primary) hypertension - Radiographic dye allergy status - Allergy status to other drugs, medicaments and biological substances - Migraine with aura, not intractable, without status migrainosus 11/02/2021 14:01 [facility] [place] TYPE: Emergency COMPLAINT: - SKIN PROBLEM 09/29/2021 12:24 [facility] [place] TYPE: Emergency COMPLAINT: - ANAL SORE DIAGNOSES: - Personal history of COVID-19 - Latex allergy status - Other retirement (current) drug therapy - Allergy status to narcotic agent - Cutaneous abscess of buttock - correction (current) use of insulin - Essential (primary) hypertension - Allergy status to other drugs, medicaments and biological substances 08/06/2021 19:44 [facility] [place] TYPE: Emergency COMPLAINT: - GENTIAL PROBLEM 08/05/2021 19:20 [facility] [place] TYPE: Emergency COMPLAINT: - GENITAL PROBLEM 06/06/2021 11:15 [facility] [place] TYPE: Emergency COMPLAINT: - FEELS LIKE SHE HAS A PC OF FRIED POTATOE STUCK IN DIAGNOSES: - Personal history of COVID-19 - Pain in throat - extermination supervisor (current) use of insulin - Latex allergy status - Radiographic dye allergy status - Other termite helper (current) drug therapy - Essential (primary) hypertension - Allergy status to narcotic agent 04/06/2021 15:37 [facility] [place] TYPE: Emergency COMPLAINT: - ABDOMINAL PAIN DIAGNOSES: - Allergy status to narcotic agent - Strain of muscle, fascia and tendon of abdomen, initial encounter - Essential (primary) hypertension - extermination supervisor (current) use of insulin - Other termite helper (current) drug therapy - Other nonmedicinal [...] substances - Other chest pain - Other retirement (current) drug therapy - extermination supervisor (current) use of insulin - Chest pain, unspecified - Latex allergy status - Essential (primary) hypertension 02/13/2021 01:15 [facility] [place] TYPE: Emergency COMPLAINT: - FEET CRAMPING 02/12/2021 23:[address] [facility] [place] TYPE: Emergency COMPLAINT: - BODY CRAMPING INPATIENT VISIT TRACKING (12 MO.) No inpatient visits to display in this time frame [id number]
[2022-02-25] MEDS ORDERED: ONDANSETRON ODT8 MG PO (00:05)
== END 2022-02-11 14:34 | disposition home or self-care (01) ==
LOC: ED 12:15
DX: S16.1XXA Strain of muscle, fascia and tendon at neck level, initial encounter (principal); I10 Essential (primary) hypertension; Z86.16 Personal history of COVID-19; Z88.8 Allergy status to other drugs, medicaments and biological substances; Z91.040 Latex allergy status; Z88.5 Allergy status to narcotic agent; Z91.041 Radiographic dye allergy status; Z79.899 Other long term (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; Z79.84 Long term (current) use of oral hypoglycemic drugs; Z79.4 Long term (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
CPT/HCPCS: 73030; 99283-25

== ENCOUNTER 2022-03-27 14:40 | Emergency (ER) | payer OTHER ==
[~2022-03-27] VITALS: Ht 165.1 cm; Wt 89.3 kg
--- OUTSIDE RECORDS SUMMARY | 2022-03-27 14:46 | XMS ---
PreManage Notification: ANA MARIA TURCIOS Security Photocopier Technician Events 5 event(s) in the past 18 months Most recent security events: Other at [facility] 11/02/2021 14:01 Details: PATIENT LWBS Elopement at [facility] 08/06/2021 19:44 - Other Details: PATIENT LWBS Elopement at [facility] 08/05/2021 19:20 - Other Details: PATIENT LWBS CRITERIA MET - 6 ED Visits in 6 Months - Group Notification CARE PROVIDERS YULISA MELGAR [facility] 03/14/2018-Current PHONE: [phone] BOLIVAR SAVAGE Physician 03/15/2019-Current PHONE: Unknown Santo Abrams [facility] 07/10/2018-Current PHONE: [phone] [facility] 06/11/2019-[facility] PHONE: [phone] Claudia has no Care Guidelines for this patient. Care History Medical/Surgical 08/13/2021 [facility] - W CONTACTED YASEMIN TICKET WRITER AT [facility]-DISCUSSED PATIENT ER VISITS WITH LWBS. - VALERIA RN FOR PATIENT PCP WILL FOLLOW UP WITH PATIENT AND THEY WILL PROVIDE TRANSPORTATION FOR PATIENT APT. 11/03/2020 [facility] - [facility] CONTACTED TICKET WRITER VALERIA AT [facility]. - PATIENT IS WORKING WITH [facility] - CHRONIC DISEASE (DIABETES MGMNT) LAST APT 10/29/20 NEXT APT SCHEDULED 11/07/20. - PATIENT LAST APT WITH PCP WAS ON 10/07/2020. - PATIENT DOES HAVE A REFERRAL TO SANTO DOMINGUEZ- BEHAVIORAL HEALTH COUNSELOR AT [facility] OF 10/29/20 REFERRAL WAS MADE AND CURRENTLY PENDING - PATIENT HAS A PENDING CARDIOLOGY REFERRAL Care Recommendation: - PLEASE REVIEW PDMP - CLAUDIA - USE EXTREME CAUTION IN GIVING NARCOTICS. - Avoid Discharge Narcotic prescriptions if at all possible. Physician discretion. 08/13/2020 [facility] - PATIENT IS CURRENTLY ENROLLED WITH CHRONIC DISEASE-PHARMACY\T\nbsp; (DIABETES MED MANAGEMENT) AT [facility] - PATIENT HAS A COUNSELOR - SEES ON A CONSISTENT BASIS - COUNSELOR VLAERIA JASSO. - 07/15/2020 PCP VISIT- PT CONSULT WAS REQUESTED, XRAY, REFERRAL FOR MRI. E.D. VISIT COUNT (12 MO.) 11 [facility] TOTAL 11 NOTE: Visits indicate total known visits. ED/UCC VISIT TRACKING (12 MO.) 03/27/2022 14:43 [facility] [place] TYPE: Emergency COMPLAINT: - LT KNEE INJ 02/24/2022 22:11 [facility] [place] TYPE: Emergency COMPLAINT: - VOMITING DIAGNOSES: - Allergy status to anesthetic agent - Latex allergy status - skilled nursing (current) use of insulin - Allergy status to narcotic agent - Essential (primary) hypertension - Nausea with vomiting, unspecified - Contact with and (suspected) exposure to COVID-19 - Gastritis, unspecified, without bleeding - Patient's other noncompliance with medication regimen - Type 2 diabetes mellitus with hyperglycemia - Radiographic dye allergy status 02/11/2022 12:15 [facility] [place] TYPE: Emergency COMPLAINT: - L ARM NUMB/PAIN DIAGNOSES: - Latex allergy status - Essential (primary) hypertension - Radiographic dye allergy status - Strain of muscle, fascia and tendon at neck level, initial encounter - Cervicalgia - Personal history of COVID-19 - terminal carman (current) use of insulin - Allergy status to narcotic agent - Other continuous churn buttermaker (current) drug therapy - skilled nursing (current) use of oral hypoglycemic drugs - Allergy status to other drugs, medicaments and biological substances 11/15/2021 20:08 [facility] [place] TYPE: Emergency COMPLAINT: - HEADACHE DIAGNOSES: - Other continuous churn buttermaker (current) drug therapy - Essential (primary) hypertension - Allergy status to narcotic agent - terminal carman (current) use of insulin - Radiographic dye allergy status - Latex allergy status - Headache, unspecified - skilled nursing (current) use of oral hypoglycemic drugs 11/14/2021 14:45 [facility] [place] TYPE: Emergency COMPLAINT: - MULTIPLE COMPLAINTS DIAGNOSES: - Essential (primary) hypertension - Other skilled nursing (current) drug therapy - Headache, unspecified - Migraine with aura, not intractable, without status migrainosus - Personal history of COVID-19 - Radiographic dye allergy status - skilled nursing (current) use of insulin - Latex allergy status - Allergy status to narcotic agent - Allergy status to other drugs, medicaments and biological substances 11/02/2021 14:01 [facility] [place] TYPE: Emergency COMPLAINT: - SKIN PROBLEM 09/29/2021 12:24 [facility] [place] TYPE: Emergency COMPLAINT: - ANAL SORE DIAGNOSES: - Essential (primary) hypertension - Cutaneous abscess of buttock - Other continuous churn buttermaker (current) drug therapy - Personal history of COVID-19 - Allergy status to other drugs, medicaments and biological substances - skilled nursing (current) use of insulin - Allergy status to narcotic agent - Latex allergy status 08/06/2021 19:44 [facility] [place] [facility] [place] TYPE: Emergency COMPLAINT: - GENTIAL PROBLEM 08/05/2021 19:20 [facility] [place] [facility] [place] COMPLAINT: - GENITAL PROBLEM 06/06/2021 11:15 [facility] [place] TYPE: Emergency COMPLAINT: - FEELS LIKE SHE HAS A PC OF FRIED POTATOE STUCK IN DIAGNOSES: - Essential (primary) hypertension - Radiographic dye allergy status - skilled nursing (current) use of insulin - Personal history of COVID-19 - Allergy status to narcotic agent - Other skilled nursing (current) drug therapy - Latex allergy status - Pain in throat 04/06/2021 15:37 [facility] [place] TYPE: Emergency COMPLAINT: - ABDOMINAL PAIN DIAGNOSES: - Right upper quadrant pain - Other skilled nursing (current) drug therapy - Essential (primary) hypertension - Exposure to other specified factors, initial encounter - Allergy status to narcotic agent - Radiographic dye allergy status - Other nonmedicinal substance allergy status - skilled nursing (current) use of insulin - Strain of muscle, fascia and tendon of abdomen, initial encounter - Allergy status to other drugs, medicaments and biological substances INPATIENT VISIT TRACKING (12 MO.) No inpatient visits to display in this time frame [email or web address]
== END 2022-03-27 19:19 | disposition home or self-care (01) ==
LOC: ED 14:40
DX: S83.92XA Sprain of unspecified site of left knee, initial encounter (principal); S63.502A Unspecified sprain of left wrist, initial encounter; S30.0XXA Contusion of lower back and pelvis, initial encounter; W01.0XXA Fall on same level from slipping, tripping and stumbling without subsequent striking against object, initial encounter; Y99.0 Civilian activity done for income or pay; I10 Essential (primary) hypertension; E11.9 Type 2 diabetes mellitus without complications; Z86.16 Personal history of COVID-19; Z98.1 Arthrodesis status; Z79.899 Other long term (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; Z88.5 Allergy status to narcotic agent; Z88.4 Allergy status to anesthetic agent; Z91.041 Radiographic dye allergy status; Z91.040 Latex allergy status; Z79.4 Long term (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
CPT/HCPCS: 72100; 72170; 73110; 73560

== ENCOUNTER 2022-04-20 14:41 | Emergency (ER) | payer OTHER ==
[~2022-04-20] VITALS: Ht 165.1 cm; Wt 86.3 kg
--- OUTSIDE RECORDS SUMMARY | 2022-04-20 14:43 | XMS ---
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 Events 5 event(s) in the past 18 months Most recent security events: Other at [facility] 11/02/2021 14:01 Details: PATIENT LWBS Elopement at [facility] 08/06/2021 19:44 - Other Details: PATIENT LWBS Elopement at [facility] 08/05/2021 19:20 - Other Details: PATIENT LWBS CRITERIA MET - [facility] - 2 Visits in 30 Days - Group Notification - 6 ED Visits in 6 Months CARE PROVIDERS YULISA MELGAR [facility] 03/14/2018-Current PHONE: [phone] BOLIVAR SAVAGE Physician 03/15/2019-Current PHONE: Unknown Santo Abrams [facility] 07/10/2018-Current PHONE: [phone] [facility]/[place] 06/11/2019-[facility] PHONE: [phone] Claudia has no Care Guidelines for this patient. Care History Medical/Surgical 08/13/2021 [facility] - W CONTACTED SUMMER VOCATIONAL TEACHER AT [facility]-DISCUSSED PATIENT ER VISITS WITH LWBS. - VALERIA RN FOR PATIENT PCP WILL FOLLOW UP WITH PATIENT AND THEY WILL PROVIDE TRANSPORTATION FOR PATIENT APT. 11/03/2020 [facility] - W CONTACTED VOCATIONAL TEACHER VALERIA AT [facility]. - PATIENT IS WORKING WITH [employer] - CHRONIC DISEASE (DIABETES MGMNT) LAST APT 10/29/20 NEXT APT SCHEDULED 11/07/20. - PATIENT LAST APT WITH PCP WAS ON 10/07/2020. - PATIENT DOES HAVE A REFERRAL TO SANTO DOMINGUEZ- BEHAVIORAL HEALTH COUNSELOR AT [facility] OF 10/29/20 REFERRAL WAS MADE AND CURRENTLY PENDING - PATIENT HAS A PENDING CARDIOLOGY REFERRAL Care Recommendation: - PLEASE REVIEW PDMP - CLAUDIA - USE EXTREME CAUTION IN GIVING NARCOTICS. - Avoid Discharge Narcotic prescriptions if at all possible. Physician discretion. 08/13/2020 [facility] - PATIENT IS CURRENTLY ENROLLED WITH CHRONIC DISEASE-PHARMACY\T\nbsp; (DIABETES MED MANAGEMENT) AT [facility] - PATIENT HAS A COUNSELOR - SEES ON A CONSISTENT BASIS - COUNSELOR VALERIA JASSO. - 07/15/2020 PCP VISIT- PT CONSULT WAS REQUESTED, XRAY, REFERRAL FOR MRI. E.D. VISIT COUNT (12 MO.) 12 [facility] TOTAL 12 NOTE: Visits indicate total known visits. ED/UCC VISIT TRACKING (12 MO.) 04/20/2022 14:41 [facility] [place] TYPE: Emergency COMPLAINT: - FALL 04/19/2022 17:07 [facility] [place] TYPE: Emergency COMPLAINT: - FALL 03/27/2022 14:43 [facility] [place] TYPE: Emergency COMPLAINT: - LT KNEE INJ DIAGNOSES: - Unspecified sprain of left wrist, initial encounter - Allergy status to narcotic agent - Essential (primary) hypertension - Pain in left knee - Contusion of lower back and pelvis, initial encounter - halfway (current) use of insulin - Latex allergy status - Type 2 diabetes mellitus without complications - Arthrodesis status - Sprain of unspecified site of left knee, initial encounter - Allergy status to anesthetic agent - Personal history of COVID-19 - Civilian activity done for income or pay - Other correction (current) drug therapy - Radiographic dye allergy status - Fall on same level from slipping, tripping and stumbling without subsequent striking against object, initial encounter 02/24/2022 22:11 [facility] [place] TYPE: Emergency COMPLAINT: - VOMITING DIAGNOSES: - vermin exterminator (current) use of insulin - Allergy status to narcotic agent - Essential (primary) hypertension - Nausea with vomiting, unspecified - Contact with and (suspected) exposure to COVID-19 - Gastritis, unspecified, without bleeding - Patient's other noncompliance with medication regimen - Type 2 diabetes mellitus with hyperglycemia - Radiographic dye allergy status - Allergy status to anesthetic agent - Latex allergy status 02/11/2022 12:15 [facility] [place] TYPE: Emergency COMPLAINT: - L ARM NUMB/PAIN DIAGNOSES: - Radiographic dye allergy status - Strain of muscle, fascia and tendon at neck level, initial encounter - Cervicalgia - Personal history of COVID-19 - halfway (current) use of insulin - Allergy status to narcotic agent - Other 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 frame tender (current) drug therapy - vermin exterminator (current) use of oral hypoglycemic drugs - Allergy status to other drugs, medicaments and biological substances - Latex allergy status - Essential (primary) hypertension 11/15/2021 20:08 [facility] [place] TYPE: Emergency COMPLAINT: - HEADACHE DIAGNOSES: - Allergy status to narcotic agent - halfway (current) use of insulin - Radiographic dye allergy status - Latex allergy status - Headache, unspecified - halfway (current) use of oral hypoglycemic drugs - Other correction (current) drug therapy - Essential (primary) hypertension 11/14/2021 14:45 [facility] [place] TYPE: Emergency COMPLAINT: - MULTIPLE COMPLAINTS DIAGNOSES: - Headache, unspecified - Migraine with aura, not intractable, without status migrainosus - Personal history of COVID-19 - Radiographic dye allergy status - vermin exterminator (current) use of insulin - Latex allergy status - Allergy status to narcotic agent - Allergy status to other drugs, medicaments and biological substances - Essential (primary) hypertension - Other correction (current) drug therapy 11/02/2021 14:01 [facility] [place] TYPE: Emergency COMPLAINT: - SKIN PROBLEM 09/29/2021 12:24 [facility] [place] TYPE: Emergency COMPLAINT: - ANAL SORE DIAGNOSES: - Other correction (current) drug therapy - Personal history of COVID-19 - Allergy status to other drugs, medicaments and biological substances - vermin exterminator (current) use of insulin - Allergy status to narcotic agent - Latex allergy status - Essential (primary) hypertension - Cutaneous abscess of buttock 08/06/2021 19:44 [facility] [place] TYPE: Emergency COMPLAINT: - GENTIAL PROBLEM 08/05/2021 19:20 [facility] [place] TYPE: Emergency COMPLAINT: - GENITAL PROBLEM 06/06/2021 11:[facility] [place] [facility] COMPLAINT: - FEELS LIKE SHE HAS A PC OF FRIED POTATOE STUCK IN DIAGNOSES: - vermin exterminator (current) use of insulin - Personal history of COVID-19 - Allergy status to narcotic agent - Other 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 frame tender (current) drug therapy - Latex allergy status - Pain in throat - Essential (primary) hypertension - Radiographic dye allergy status INPATIENT VISIT TRACKING (12 MO.) No inpatient visits to display in this time frame [email or web address]
[2022-04-20] MEDS ORDERED: BANOPHEN25 MG PO (16:28)
[2022-04-20] MEDS ORDERED: LORATADINE10 MG PO (16:28)
[2022-04-20] MEDS ORDERED: MONTELUKAST SOD10 MG PO (16:28)
== END 2022-04-20 18:10 | disposition home or self-care (01) ==
LOC: ED 14:41
DX: S63.502A Unspecified sprain of left wrist, initial encounter (principal); W01.0XXA Fall on same level from slipping, tripping and stumbling without subsequent striking against object, initial encounter; I10 Essential (primary) hypertension; E11.9 Type 2 diabetes mellitus without complications; Z86.16 Personal history of COVID-19; Z88.5 Allergy status to narcotic agent; Z88.4 Allergy status to anesthetic agent; Z91.041 Radiographic dye allergy status; Z91.040 Latex allergy status
CPT/HCPCS: 99283

== ENCOUNTER 2022-05-30 18:39 | Emergency (ER) | payer OTHER ==
[~2022-05-30] VITALS: Ht 165.1 cm; Wt 86.2 kg
[~2022-05-30 18:39] MED LIST changes: +BANOPHEN25 MG PO; +LORATADINE10 MG PO
--- OUTSIDE RECORDS SUMMARY | 2022-05-30 18:40 | XMS ---
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 04/19/2022 17:07 - Patient eloped before treatment completed. - Patient with suicidal and/or homicidal ideations eloped. - Patient eloped with IV in place. Details: PATIENT LWBS Other at [facility] 11/02/2021 14:01 Details: PATIENT LWBS Elopement at [facility] 08/06/2021 19:44 - Other Details: PATIENT LWBS CRITERIA MET - 6 ED Visits in 6 Months - Group Notification CARE PROVIDERS YULISA MELGAR [facility] 03/14/2018-Current PHONE: [phone] BOLIVAR SAVAGE Physician Secondary Teacher 03/15/2019-Current PHONE: Unknown Santo Abrams [facility] 07/10/2018-Current PHONE: [phone] [facility] 06/11/2019-[facility] PHONE: [phone] Claudia has no Care Guidelines for this patient. Care History Medical/Surgical 08/13/2021 [facility] - W CONTACTED YASEMIN SUPERVISOR FACEPIECE LINE AT [facility]-DISCUSSED PATIENT ER VISITS WITH LWBS. - VALERIA TOBAR FOR PATIENT PCP WILL FOLLOW UP WITH PATIENT AND THEY WILL PROVIDE TRANSPORTATION FOR PATIENT APT. 11/03/2020 [facility] - [facility] CONTACTED SUPERVISOR FACEPIECE LINE VALERIA AT [facility]. - PATIENT IS WORKING WITH [employer] - CHRONIC DISEASE (DIABETES MGMNT) LAST APT 10/29/20 NEXT APT SCHEDULED 11/07/20. - PATIENT LAST APT WITH PCP WAS ON 10/07/2020. - PATIENT DOES HAVE A REFERRAL TO SANTO DOMINGUEZ- BEHAVIORAL HEALTH COUNSELOR AT [facility] OF 10/29/20 REFERRAL WAS MADE AND CURRENTLY PENDING - PATIENT HAS A PENDING CARDIOLOGY REFERRAL Care Recommendation: - PLEASE REVIEW PDMP - CLAUDIA - USE EXTREME CAUTION IN GIVING NARCOTICS. - Avoid Discharge Narcotic prescriptions if at all possible. Physician discretion. 08/13/2020 [facility] - PATIENT IS CURRENTLY ENROLLED WITH CHRONIC DISEASE-PHARMACY\T\nbsp; (DIABETES MED MANAGEMENT) AT [facility] - PATIENT HAS A COUNSELOR - SEES ON A CONSISTENT BASIS - COUNSELOR VALERIA JASSO. - 07/15/2020 PCP VISIT- PT CONSULT WAS REQUESTED, XRAY, REFERRAL FOR MRI. E.D. VISIT COUNT (12 MO.) 13 [facility] TOTAL 13 NOTE: Visits indicate total known visits. ED/UCC VISIT TRACKING (12 MO.) 05/30/2022 18:40 [facility] [place] TYPE: Emergency COMPLAINT: - HEAD PAIN 04/20/2022 14:41 [facility] [place] TYPE: Emergency COMPLAINT: - FALL DIAGNOSES: - Allergy status to narcotic agent - Pain in left wrist - Radiographic dye allergy status - Latex allergy status - Unspecified sprain of left wrist, initial encounter - Allergy status to anesthetic agent - Essential (primary) hypertension - Type 2 diabetes mellitus without complications - Personal history of COVID- - Fall on same level from slipping, tripping and stumbling without subsequent striking against object, initial encounter 04/19/2022 17:07 [facility] [place] TYPE: Emergency COMPLAINT: - FALL 03/27/2022 14:43 [facility] [place] TYPE: Emergency COMPLAINT: - LT KNEE INJ DIAGNOSES: - Other 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 technician (current) drug therapy - Radiographic dye allergy status - Fall on same level from slipping, tripping and stumbling without subsequent striking against object, initial encounter - Unspecified sprain of left wrist, initial encounter - Allergy status to narcotic agent - Essential (primary) hypertension - Pain in left knee - Contusion of lower back and pelvis, initial encounter - USP (current) use of insulin - Latex allergy status - Type 2 diabetes mellitus without complications - Arthrodesis status - Sprain of unspecified site of left knee, initial encounter - Allergy status to anesthetic agent - Personal history of COVID - Civilian activity done for income or pay 02/24/2022 22:11 [facility] [place] TYPE: Emergency COMPLAINT: - VOMITING DIAGNOSES: - Latex allergy status - USP (current) use of insulin - Allergy status to narcotic agent - Essential (primary) hypertension - Nausea with vomiting, unspecified - Contact with and (suspected) exposure to COVID-19 - Gastritis, unspecified, without bleeding - Patient's other noncompliance with medication regimen - Type 2 diabetes mellitus with hyperglycemia - Radiographic dye allergy status - Allergy status to anesthetic agent 02/11/2022 12:15 [facility] [place] TYPE: Emergency COMPLAINT: - L ARM NUMB/PAIN DIAGNOSES: - Essential (primary) hypertension - Radiographic dye allergy status - Strain of muscle, fascia and tendon at neck level, initial encounter - Cervicalgia - Personal history of COVID-19 - buttermaker (current) use of insulin - Allergy status to narcotic agent - Other termite technician (current) drug therapy - buttermaker (current) use of oral hypoglycemic drugs - Allergy status to other drugs, medicaments and biological substances - Latex allergy status 11/15/2021 20:08 [facility] [place] TYPE: Emergency COMPLAINT: - HEADACHE DIAGNOSES: - Essential (primary) hypertension - Allergy status to narcotic agent - USP (current) use of insulin - Radiographic dye allergy status - Latex allergy status - Headache, unspecified - buttermaker (current) use of oral hypoglycemic drugs - Other termite technician (current) drug therapy 11/14/2021 14:45 [facility] [place] TYPE: Emergency COMPLAINT: - MULTIPLE COMPLAINTS DIAGNOSES: - Other termite technician (current) drug therapy - Headache, unspecified - Migraine with aura, not intractable, without status migrainosus - Personal history of COVID-19 - Radiographic dye allergy status - USP (current) use of insulin - Latex allergy status - Allergy status to narcotic agent - Allergy status to other drugs, medicaments and biological substances - Essential (primary) hypertension 11/02/2021 14:01 [facility] [place] TYPE: Emergency COMPLAINT: - SKIN PROBLEM 09/29/2021 12:24 [facility] [place] TYPE: Emergency COMPLAINT: - ANAL SORE DIAGNOSES: - Cutaneous abscess of buttock - Other termite technician (current) drug therapy - Personal history of COVID-19 - Allergy status to other drugs, medicaments and biological substances - USP (current) use of insulin - Allergy status to narcotic agent - Latex allergy status - Essential (primary) hypertension 08/06/2021 19:44 [facility] [place] TYPE: Emergency COMPLAINT: - GENTIAL PROBLEM 08/05/2021 19:20 [facility] [place] TYPE: Emergency COMPLAINT: - GENITAL PROBLEM 06/06/2021 11:15 [facility] [place] TYPE: Emergency COMPLAINT: - FEELS LIKE SHE HAS A PC OF FRIED POTATOE STUCK IN DIAGNOSES: - Radiographic dye allergy status - buttermaker (current) use of insulin - Personal history of COVID-19 - Allergy status to narcotic agent - Other alf (current) drug therapy - Latex allergy status - Pain in throat - Essential (primary) hypertension INPATIENT VISIT TRACKING (12 MO.) No inpatient visits to display in this time frame [email or web address]
[2022-05-30] MEDS ORDERED: CLOTRIMAZOLE45 GM VAGINAL (18:55)
== END 2022-05-30 22:41 | disposition home or self-care (01) ==
LOC: ED 18:39
DX: G43.109 Migraine with aura, not intractable, without status migrainosus (principal); I10 Essential (primary) hypertension; E11.9 Type 2 diabetes mellitus without complications; Z86.16 Personal history of COVID-19; Z88.4 Allergy status to anesthetic agent; Z91.040 Latex allergy status; Z88.5 Allergy status to narcotic agent; Z91.041 Radiographic dye allergy status
CPT/HCPCS: 36415; 70450; 80053; 81001; 85025; 96361; 96374; 96375; 99284-25; J0780; J1200; J1815; J1885; J7030

== ENCOUNTER 2022-10-11 11:38 | Inpatient (IN) | payer OTHER ==
[~2022-10-11] VITALS: Ht 165.1 cm; Wt 93.7 kg
[~2022-10-11 11:38] MED LIST changes: +CLOTRIMAZOLE45 GM VAGINAL; -HUMALOG100 UNIT/2 SUB-Q; +INSULIN AS100 UNIT/3 SUB-Q
--- OUTSIDE RECORDS SUMMARY | 2022-10-11 11:42 | XMS ---
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 - Patient with suicidal and/or homicidal ideations eloped. - Patient eloped with IV in place. Details: Patient LWBS. Elopement at [facility] 04/19/2022 17:07 - Patient eloped before treatment completed. - Patient with suicidal and/or homicidal ideations eloped. - Patient eloped with IV in place. Details: PATIENT LWBS Other at [facility] 11/02/2021 14:01 Details: PATIENT LWBS CRITERIA MET - Group Notification CARE PROVIDERS -Lynn- Dentist: Sap Technical Architect [facility] PHONE: [phone] YULISA MELGAR Family [facility] 03/14/2018-Current PHONE: [phone] BOLIVAR SAVAGE Physician Network Security Officer 03/15/2019-Current PHONE: Unknown Santo Abrams [facility] 07/10/2018-Current PHONE: [phone] [facility] 06/11/2019-[facility] PHONE: [phone] Claudia has no Care Guidelines for this patient. Care History Medical/Surgical 08/13/2021 [facility] - [facility] CONTACTED SUMMER INSULATION CUPOLA OPERATOR AT [facility]-DISCUSSED PATIENT ER VISITS WITH LWBS. - VALERIA TOBAR FOR PATIENT PCP WILL FOLLOW UP WITH PATIENT AND THEY WILL PROVIDE TRANSPORTATION FOR PATIENT APT. 11/03/2020 [facility] CONTACTED INSULATION CUPOLA OPERATOR VALERIA AT [facility]. - [facility] - CHRONIC DISEASE (DIABETES MGMNT) LAST APT 10/29/20 NEXT APT SCHEDULED 11/07/20. - PATIENT LAST APT WITH PCP WAS ON 10/07/2020. - PATIENT DOES HAVE A REFERRAL TO SANTO DOMINGUEZ- BEHAVIORAL HEALTH COUNSELOR AT [facility] OF 10/29/20 REFERRAL WAS MADE AND CURRENTLY PENDING - PATIENT HAS A PENDING CARDIOLOGY REFERRAL Care Recommendation: - PLEASE REVIEW PDMP - CLAUDIA - USE EXTREME CAUTION IN GIVING NARCOTICS. - Avoid Discharge Narcotic prescriptions if at all possible. Physician discretion. 08/13/2020 [facility] - PATIENT IS CURRENTLY ENROLLED WITH CHRONIC DISEASE-PHARMACY\T\nbsp; (DIABETES MED MANAGEMENT) AT [facility] - PATIENT HAS A COUNSELOR - SEES ON A CONSISTENT BASIS - COUNSELOR VALERIA JASSO. - 07/15/2020 PCP VISIT- PT CONSULT WAS REQUESTED, XRAY, REFERRAL FOR MRI. E.D. VISIT COUNT (12 MO.) [facility] NOTE: Visits indicate total known visits. ED/UCC VISIT TRACKING (12 MO.) 10[facility]11[facility]22 [facility] [place] [facility] COMPLAINT: - ALTERED MENTAL STATUS 07/15/2022 12:18 [facility] [place] TYPE: Emergency COMPLAINT: - ABDOMINAL PAIN 05/30/2022 18:40 [facility] [place] TYPE: Emergency COMPLAINT: - HEAD PAIN DIAGNOSES: - Radiographic dye allergy status - Allergy status to narcotic agent - Essential (primary) hypertension - Type 2 diabetes mellitus without complications - Headache, unspecified - Allergy status to anesthetic agent - Latex allergy status - Migraine with aura, not intractable, without status migrainosus - Personal history of COVID- 04/20/2022 14:41 [facility] [place] TYPE: Emergency COMPLAINT: - FALL DIAGNOSES: - Essential (primary) hypertension - Type 2 diabetes mellitus without complications - Personal history of COVID- - Fall on same level from slipping, tripping and stumbling without subsequent striking against object, initial encounter - Allergy status to narcotic agent - Pain in left wrist - Radiographic dye allergy status - Latex allergy status - Unspecified sprain of left wrist, initial encounter - Allergy status to anesthetic agent 04/19/2022 17:07 [facility] [place] TYPE: Emergency COMPLAINT: - FALL 03/27/2022 14:43 [facility] [place] TYPE: Emergency COMPLAINT: - LT KNEE INJ DIAGNOSES: - Type 2 diabetes mellitus without complications - Arthrodesis status - Sprain of unspecified site of left knee, initial encounter - Allergy status to anesthetic agent - Personal history of COVID-19 - Civilian activity done for income or pay - Other 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 (current) drug therapy - Radiographic dye allergy status - Fall on same level from slipping, tripping and stumbling without subsequent striking against object, initial encounter - Unspecified sprain of left wrist, initial encounter - Allergy status to narcotic agent - Essential (primary) hypertension - Pain in left knee - Contusion of lower back and pelvis, initial encounter - 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 (current) use of insulin - Latex allergy status 02/24/2022 22:11 [facility] [place] TYPE: Emergency COMPLAINT: - VOMITING DIAGNOSES: - Gastritis, unspecified, without bleeding - Patient's other noncompliance with medication regimen - Type 2 diabetes mellitus with hyperglycemia - Radiographic dye allergy status - Allergy status to anesthetic agent - Latex allergy status - 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 (current) use of insulin - Allergy status to narcotic agent - Essential (primary) hypertension - Nausea with vomiting, unspecified - Contact with and (suspected) exposure to COVID-19 02/11/2022 12:15 [facility] [place] TYPE: Emergency COMPLAINT: - L ARM NUMB/PAIN DIAGNOSES: - Allergy status to narcotic agent - Other 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 (current) drug therapy - 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 (current) use of oral hypoglycemic drugs - Allergy status to other drugs, medicaments and biological substances - Latex allergy status - Essential (primary) hypertension - Radiographic dye allergy status - Strain of muscle, fascia and tendon at neck level, initial encounter - Cervicalgia - Personal history of COVID-19 - 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 (current) use of insulin 11/15/2021 20:08 [facility] [place] TYPE: Emergency COMPLAINT: - HEADACHE DIAGNOSES: - Headache, unspecified - terminal makeup operator (current) use of oral hypoglycemic drugs - Other long chain quiller tender (current) drug therapy - Essential (primary) hypertension - Allergy status to narcotic agent - 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 (current) use of insulin - Radiographic dye allergy status - Latex allergy status 11/14/2021 14:45 [facility] [place] TYPE: Emergency COMPLAINT: - MULTIPLE COMPLAINTS DIAGNOSES: - Latex allergy status - Allergy status to narcotic agent - Allergy status to other drugs, medicaments and biological substances - Essential (primary) hypertension - Other 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 (current) drug therapy - Headache, unspecified - Migraine with aura, not intractable, without status migrainosus - Personal history of COVID-19 - Radiographic dye allergy status - terminal makeup operator (current) use of insulin 11/02/2021 14:01 [facility] [place] TYPE: Emergency COMPLAINT: - SKIN PROBLEM INPATIENT VISIT TRACKING (12 MO.) No inpatient visits to display in this time frame [email or web address]
[2022-10-11] MEDS ORDERED: BENZONATATE100 MG PO (12:09)
[2022-10-11 18:37] VITALS: BP 137/90
[2022-10-11 20:00] VITALS: BP 112/67
--- NOTE | 2022-10-11 20:04 | EKG ---
[facility] [address] [place] [address] Signed Sinus tachycardia Left posterior fascicular block Abnormal ECG When compared with ECG of 25-MAR-2021 01:12, Vent. rate has increased BY 44 BPM Left posterior fascicular block is now present Confirmed by Jennie Webster MD () on 10/11/2022 8:04:44 PM Electronically Signed By: JENNIE WEBSTER MD 10/11/222003 PATIENT NAME: ANA MARIA TURCIOS Electrocardiogram DATE OF : 72 PHYSICIAN: JENNIE WEBSTER MD REPORT #: [id number] REPORT IS CONFIDENTIAL AND NOT TO BE RELEASED WITHOUT AUTHORIZATION
[2022-10-11 21:46] VITALS: BP 144/77
[2022-10-11 22:27] VITALS: BP 131/82
[2022-10-11 23:00] VITALS: BP 133/68
[2022-10-12] VITALS (13 sets, daily range): BP systolic 105–138; BP diastolic 52–88
[2022-10-12] MEDS ORDERED: ATORVASTATIN CA40 MG PO (08:48)
[2022-10-12] MEDS ORDERED: INSULIN GL100 UNIT/2 SUB-Q (08:50)
[2022-10-12] MEDS ORDERED: VITAMIN D350 MCG PO (10:57)
[2022-10-12] MEDS ORDERED: OZEMPIC1 MG/0.71 SUB-Q (11:51)
[2022-10-12] MEDS ORDERED: ZYPREXA10 MG PO (11:52)
[2022-10-13 02:49] VITALS: BP 150/80
[2022-10-13 05:02] VITALS: BP 136/64
[2022-10-13 09:40] VITALS: BP 135/68
[2022-10-13 13:34] VITALS: BP 137/67
[2022-10-13 16:48] VITALS: BP 127/70
[2022-10-13 20:46] VITALS: BP 112/60
[2022-10-14 06:23] VITALS: BP 136/69
[2022-10-14 10:07] VITALS: BP 115/60
[2022-10-14 13:23] VITALS: BP 123/61
[2022-10-14 17:46] VITALS: BP 115/63
[2022-10-14 19:37] VITALS: BP 104/59
[2022-10-15 04:38] VITALS: BP 110/67
[2022-10-15 09:31] VITALS: BP 122/62
[2022-10-15] MEDS ORDERED: AMOX TR-K CLV1 EAC1 PO (10:32)
== END 2022-10-15 12:50 | disposition home or self-care (01) | DRG 871 ==
LOC: ED 11:38 → MS 11:40 → CCU 11:40 → MS 11:40
PROVIDERS: ADMIT Family Medicine; ATTEND Internal Medicine
DX: A41.9 Sepsis, unspecified organism (principal); J18.9 Pneumonia, unspecified organism; Z20.822 Contact with and (suspected) exposure to COVID-19; N32.89 Other specified disorders of bladder; J32.9 Chronic sinusitis, unspecified; E11.65 Type 2 diabetes mellitus with hyperglycemia; R65.20 Severe sepsis without septic shock; F21 Schizotypal disorder; H57.11 Ocular pain, right eye; Z90.49 Acquired absence of other specified parts of digestive tract; Z98.890 Other specified postprocedural states; Z90.89 Acquired absence of other organs; Z98.1 Arthrodesis status; Z88.4 Allergy status to anesthetic agent; Z91.040 Latex allergy status; Z88.6 Allergy status to analgesic agent; Z91.041 Radiographic dye allergy status; Z79.4 Long term (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; Z79.899 Other long term (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
CPT/HCPCS: 00635; 36415; 51701; 62270; 70450; 70486; 71045; 71250; 74176; 80048; 80053; 81001; 82010; 82803; 82945; 83036; 83605; 83735; 84100; 84157; 84703; 85025; 87070; 87205; 87502; 89051; 93005; 93010; 99285-25; A9270; C9803; J0456; J0696; J1170; J1650; J1815; J1885; J2405; J7030; J7121; U0003

== ENCOUNTER 2023-01-06 12:24 | Emergency (ER) | payer OTHER ==
[~2023-01-06] VITALS: Ht 165.1 cm; Wt 97.6 kg
[~2023-01-06 12:24] MED LIST changes: +AMOX TR-K CLV1 EAC1 PO; +ATORVASTATIN CA40 MG PO; +BENZONATATE100 MG PO; +INSULIN GL100 UNIT/2 SUB-Q; +OZEMPIC1 MG/0.71 SUB-Q; +VITAMIN D350 MCG PO; +ZYPREXA10 MG PO
--- OUTSIDE RECORDS SUMMARY | 2023-01-06 12:28 | XMS ---
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 - Patient with suicidal and/or homicidal ideations eloped. - Patient eloped with IV in place. Details: Patient LWBS. Elopement at [facility] 04/19/2022 17:07 - Patient eloped before treatment completed. - Patient with suicidal and/or homicidal ideations eloped. - Patient eloped with IV in place. Details: PATIENT LWBS Other at [facility] 11/02/2021 14:01 Details: PATIENT LWBS CRITERIA MET - Group Notification CARE PROVIDERS -Lynn- Dentist: Transformer Tester [facility] PHONE: [phone] YULISA MELGAR Family [facility] 03/14/2018-Current PHONE: [phone] BOLIVAR SAVAGE Physician [facility] 03/15/2019-Current PHONE: Unknown Santo Abrams [facility] 07/10/2018-Current PHONE: [phone] [facility] 06/11/2019-[facility] PHONE: [phone] Claudia has no Care Guidelines for this patient. Care History Medical/Surgical 08/13/2021 [facility] - [facility] CONTACTED SUMMER CORPORATE BOND TRADER AT [facility]-DISCUSSED PATIENT ER VISITS WITH LWBS. - VALERIA TOBAR FOR PATIENT PCP WILL FOLLOW UP WITH PATIENT AND THEY WILL PROVIDE TRANSPORTATION FOR PATIENT APT. 11/03/2020 [facility] CONTACTED CORPORATE BOND TRADER VALERIA AT [facility]. - PATIENT IS WORKING WITH [employer] - CHRONIC DISEASE (DIABETES MGMNT) LAST APT 10/29/20 NEXT APT SCHEDULED 11/07/20. - PATIENT LAST APT WITH PCP WAS ON 10/07/2020. - PATIENT DOES HAVE A REFERRAL TO SANTO DOMINGUEZ- BEHAVIORAL HEALTH COUNSELOR AT [facility] OF 10/29/20 REFERRAL WAS MADE AND CURRENTLY PENDING - PATIENT HAS A PENDING CARDIOLOGY REFERRAL Care Recommendation: - PLEASE REVIEW PDMP - CLAUDIA - USE EXTREME CAUTION IN GIVING NARCOTICS. - Avoid Discharge Narcotic prescriptions if at all possible. Physician discretion. 08/13/2020 [facility] - PATIENT IS CURRENTLY ENROLLED WITH CHRONIC DISEASE-PHARMACY\T\nbsp; (DIABETES MED MANAGEMENT) AT [facility] - PATIENT HAS A COUNSELOR - SEES ON A CONSISTENT BASIS - COUNSELOR VALERIA JASSO. - 07/15/2020 PCP VISIT- PT CONSULT WAS REQUESTED, XRAY, REFERRAL FOR MRI. E.D. VISIT COUNT (12 MO.) 9 [facility] TOTAL 9 NOTE: Visits indicate total known visits. ED/UCC VISIT TRACKING (12 MO.) 01/06/2023 12:26 [facility] [place] TYPE: Emergency COMPLAINT: - R BACK/HIP PAIN 10/11/2022 11:[address] [facility] [place] TYPE: Emergency COMPLAINT: - ALTERED MENTAL STATUS 07/15/2022 12:[address] [facility] [place] TYPE: Emergency COMPLAINT: - ABDOMINAL PAIN 05/30/2022 18:40 [facility] [place] TYPE: Emergency COMPLAINT: - HEAD PAIN DIAGNOSES: - Allergy status to anesthetic agent - Allergy status to narcotic agent - Essential (primary) hypertension - Headache, unspecified - Latex allergy status - Migraine with aura, not intractable, without status migrainosus - Personal history of COVID-19 - Radiographic dye allergy status - Type 2 diabetes mellitus without complications 04/20/2022 14:41 [facility] [place] TYPE: Emergency COMPLAINT: - FALL DIAGNOSES: - Allergy status to anesthetic agent - Allergy status to narcotic agent - Essential (primary) hypertension - Fall on same level from slipping, tripping and stumbling without subsequent striking against object, initial encounter - Latex allergy status - Pain in left wrist - Personal history of COVID-19 - Radiographic dye allergy status - Type 2 diabetes mellitus without complications - Unspecified sprain of left wrist, initial encounter 04/19/2022 17:07 [facility] [place] TYPE: Emergency COMPLAINT: - FALL 03/27/2022 14:43 [facility] [place] TYPE: Emergency COMPLAINT: - LT KNEE INJ DIAGNOSES: - Allergy status to anesthetic agent - Allergy status to narcotic agent - Arthrodesis status - Civilian activity done for income or pay - Contusion of lower back and pelvis, initial encounter - Essential (primary) hypertension - Fall on same level from slipping, tripping and stumbling without subsequent striking against object, initial encounter - Latex allergy status - coil winder (current) 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 of insulin - Other retirement (current) drug therapy - Pain in left knee - Personal history of COVID-19 - Radiographic dye allergy status - Sprain of unspecified site of left knee, initial encounter - Type 2 diabetes mellitus without complications - Unspecified sprain of left wrist, initial encounter 02/24/2022 22:11 [facility] [place] TYPE: Emergency COMPLAINT: - VOMITING DIAGNOSES: - Allergy status to anesthetic agent - Allergy status to narcotic agent - Contact with and (suspected) exposure to COVID-19 - Essential (primary) hypertension - Gastritis, unspecified, without bleeding - Latex allergy status - FCI (current) use of insulin - Nausea with vomiting, unspecified - Patient's other noncompliance with medication regimen - Radiographic dye allergy status - Type 2 diabetes mellitus with hyperglycemia 02/11/2022 12:15 [facility] [place] TYPE: Emergency COMPLAINT: - L ARM NUMB/PAIN DIAGNOSES: - Allergy status to narcotic agent - Allergy status to other drugs, medicaments and biological substances - Cervicalgia - Essential (primary) hypertension - Latex allergy status - FCI (current) use of insulin - FCI (current) use of oral hypoglycemic drugs - Other veterinary science teacher (current) drug therapy - Personal history of COVID-19 - Radiographic dye allergy status - Strain of muscle, fascia and tendon at neck level, initial encounter INPATIENT VISIT TRACKING (12 MO.) 10/11/2022 11:[address] [facility] [place] TYPE: Medical Surgical COMPLAINT: - SEPSIS HYPERGLYCEMIA DIAGNOSES: - Acquired absence of other organs - Acquired absence of other organs - Acquired absence of other specified parts of digestive tract - Acquired absence of other specified parts of digestive tract - Allergy status to analgesic agent - Allergy status to analgesic agent - Allergy status to anesthetic agent - Allergy status to anesthetic agent - Arthrodesis status - Arthrodesis status - Chronic sinusitis, unspecified - Chronic sinusitis, unspecified - Contact with and (suspected) exposure to COVID-19 - Contact with and (suspected) exposure to COVID-19 - Latex allergy status - Latex allergy status - FCI (current) use of insulin - FCI (current) use of insulin - Ocular pain, right eye - Ocular pain, right eye - Other retirement (current) drug therapy - Other veterinary science teacher (current) drug therapy - Other specified disorders of bladder - Other specified disorders of bladder - Other specified postprocedural states - Other specified postprocedural states - Pneumonia, unspecified organism - Pneumonia, unspecified organism - Radiographic dye allergy status - Radiographic dye allergy status - Schizotypal disorder - Schizotypal disorder - Sepsis, unspecified organism - Severe sepsis without septic shock - Type 2 diabetes mellitus with hyperglycemia - Type 2 diabetes mellitus with hyperglycemia [email or web address]
[2023-01-06] MEDS ORDERED: INSULIN GL100 UNIT/2 SQ (12:43)
[2023-01-06] MEDS ORDERED: CYCLOBENZAPRINE10 MG PO (13:33)
[2023-01-06 13:44] VITALS: BP 122/79
== END 2023-01-06 13:46 | disposition home or self-care (01) ==
LOC: ED 12:24
DX: S39.012A Strain of muscle, fascia and tendon of lower back, initial encounter (principal); E11.65 Type 2 diabetes mellitus with hyperglycemia; X58.XXXA Exposure to other specified factors, initial encounter; I10 Essential (primary) hypertension; E11.9 Type 2 diabetes mellitus without complications; Z88.8 Allergy status to other drugs, medicaments and biological substances; Z91.041 Radiographic dye allergy status; Z88.5 Allergy status to narcotic agent; Z91.040 Latex allergy status; Z79.899 Other long term (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; Z79.4 Long term (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; Z79.84 Long term (current) use of oral hypoglycemic drugs
CPT/HCPCS: 36415; 72100; 80053; 81003; 83735; 85025; 96372; 99283-25; J1885

== ENCOUNTER 2023-02-13 22:31 | Emergency (ER) | payer OTHER ==
[~2023-02-13] VITALS: Ht 165.1 cm; Wt 97.6 kg
--- OUTSIDE RECORDS SUMMARY | ~2023-02-13 | XMS | Continuity of Care Document ---
Demographics + + + | Address | [address] | | | [place] [address] | + + + | Preferred Language | Unknown | + + + | Marital Status | Never | + + + | Tenriism Affiliation | Unknown | + + + | Race | or | + + + | Ethnic Group | Not or | + + + Author + + + | Author | [facility] | + + + | Organization | [facility] | + + + | Address | [address] | | | [place] [address] | + + + | Phone | | + + + Care Team Providers + + + + | Care Contract Negotiation Specialist Name | Role | Phone | + + + + Unavailable | Unavailable | + + + + Unavailable | Unavailable | + + + + Unavailable | Unavailable | + + + + Unavailable | Unavailable | + + + + Unavailable | Unavailable | + + + + Unavailable | Unavailable | + + + + Unavailable | Unavailable | + + + + Unavailable | Unavailable | + + + + Unavailable | Unavailable | + + + + Allergies and Intolerances + + + + + | date | description | facility | type | + + + + + | (no date) | Latex | [facility] ([facility] | | + + + + + | (no date) | Latex | [facility] (unknown[facility] | | + + + + + | (no date) | latex | [facility] (unknown[facility] | | + + + + + | (no date) | Latex | [facility] (unknown) [facility] | | + + + + + | (no date) | Morphine | [facility] (unknown) [facility] | | + + + + + | (no date) | Lidocaine | [facility] (unknown) [facility] | | + + + + + | (no date) | Anaphylaxis | [facility] (unknown) | | [facility] Hospital | | + + + + + | (no date) | Itching | [facility] (unknown) | | [facility] | | + + + + + | (no date) | Lidocaine | [facility] (unknown) [facility] | | + + + + + | (no date) | lidocaine | [facility] (unknown) [facility] | | + + + + + | (no date) | Morphine | [facility] (unknown) | | | [facility] | | + + + + + | (no date) | morphine | [facility] (unknown[facility] | | | | [facility] | | + + + + + | (no date) | Morphine | [facility] (unknown) | | | [facility] Hospital | | + + + + + | (no date) | Lidocaine | [facility] (unknown) | | | | Hospital | | + + + + + | (no date) | Latex | [facility] (unknown[facility] | | | | [facility] | | + + + + + Encounters No information. Functional Status No information. Immunizations No information. Medications + + + + | date | description | facility | + + + + | 2017-10-08 00:00 | METHOCARBAMOL | [facility] | + + + + | 2017-10-08 00:00 | METHOCARBAMOL | [facility] | + + + + | 2017-10-08 00:00 | METHOCARBAMOL | [facility] | + + + + | 2017-10-08 00:00 | METHOCARBAMOL | [facility] | + + + + | 2017-10-08 00:00 | METHOCARBAMOL | [facility] | + + + + | 2017-10-08 00:00 | METHOCARBAMOL | [facility] | + + + + | 2017-10-08 00:00 | METHOCARBAMOL | [facility] | + + + + | 2019-01-18 00:00 | METHOCARBAMOL | [facility] | + + + + | 2019-01-18 00:00 | METHOCARBAMOL | [facility] | + + + + | 2019-01-18 00:00 | METHOCARBAMOL | [facility] | + + + + | 2019-01-18 00:00 | METHOCARBAMOL | [facility] | + + + + | 2019-01-18 00:00 | METHOCARBAMOL | [facility] | + + + + | 2019-01-18 00:00 | METHOCARBAMOL | [facility] | + + + + | 2019-01-18 00:00 | METHOCARBAMOL | [facility] | + + + + | 2022-02-17 00:00 | CETIRIZINE HCL | [facility] | + + + + | 2022-02-25 00:00 | CETIRIZINE HCL | [facility] | + + + + | 2022-03-31 00:00 | CETIRIZINE HCL | [facility] | + + + + | 2022-04-19 00:00 | CETIRIZINE HCL | [facility] | + + + + | 2022-04-20 00:00 | CETIRIZINE HCL | [facility] | + + + + | 2022-05-30 00:00 | CETIRIZINE HCL | [facility] | + + + + | 2022-07-16 00:00 | CETIRIZINE HCL | [facility] | + + + + | 2022-10-15 00:00 | CETIRIZINE HCL | [facility] | + + + + | 2023-01-06 00:00 | CETIRIZINE HCL | [facility] | + + + + | 2023-01-15 00:00 | CETIRIZINE HCL | [facility] | + + + + | 2023-01-16 00:00 | CETIRIZINE HCL | [facility] | + + + + | 2020-08-08 00:00 | FAMOTIDINE | [facility] | + + + + | 2020-08-08 00:00 | FAMOTIDINE | [facility] | + + + + | 2020-08-08 00:00 | FAMOTIDINE | [facility] | + + + + | 2020-08-08 00:00 | FAMOTIDINE | [facility] | + + + + | 2020-08-08 00:00 | FAMOTIDINE | [facility] | + + + + | 2020-08-08 00:00 | FAMOTIDINE | [facility] | + + + + | 2020-08-08 00:00 | FAMOTIDINE | [facility] | + + + + | 2020-11-02 00:00 | FAMOTIDINE | [facility] | + + + + | 2020-11-02 00:00 | FAMOTIDINE | [facility] | + + + + | 2020-11-02 00:00 | FAMOTIDINE | [facility] | + + + + | 2020-11-02 00:00 | FAMOTIDINE | [facility] | + + + + | 2020-11-02 00:00 | FAMOTIDINE | [facility] | + + + + | 2020-11-02 00:00 | FAMOTIDINE | [facility] | + + + + | 2020-11-02 00:00 | FAMOTIDINE | [facility] | + + + + | 2022-02-17 00:00 | LISINOPRIL | [facility] | + + + + | 2022-02-25 00:00 | LISINOPRIL | [facility] | + + + + | 2022-03-31 00:00 | LISINOPRIL | [facility] | + + + + | 2022-04-19 00:00 | LISINOPRIL | [facility] | + + + + | 2022-04-20 00:00 | LISINOPRIL | [facility] | + + + + | 2022-05-30 00:00 | LISINOPRIL | [facility] | + + + + | 2022-07-16 00:00 | LISINOPRIL | [facility] | + + + + | 2022-10-15 00:00 | LISINOPRIL | [facility] | + + + + | 2023-01-06 00:00 | LISINOPRIL | [facility] | + + + + | 2023-01-15 00:00 | LISINOPRIL | [facility] | + + + + | 2023-01-16 00:00 | LISINOPRIL | [facility] | + + + + | 2023-01-15 00:00 | LORAZEPAM | [facility] | + + + + | 2022-02-17 00:00 | ONDANSETRON HCL | [facility] | + + + + | 2022-02-25 00:00 | ONDANSETRON HCL | [facility] | + + + + | 2022-03-31 00:00 | ONDANSETRON HCL | [facility] | + + + + | 2022-04-19 00:00 | ONDANSETRON HCL | [facility] | + + + + | 2022-04-20 00:00 | ONDANSETRON HCL | [facility] | + + + + | 2022-05-30 00:00 | ONDANSETRON HCL | [facility] | + + + + | 2022-07-16 00:00 | ONDANSETRON HCL | [facility] | + + + + | 2022-10-15 00:00 | ONDANSETRON HCL | [facility] | + + + + | 2023-01-06 00:00 | ONDANSETRON HCL | [facility] | + + + + | 2023-01-15 00:00 | ONDANSETRON HCL | [facility] | + + + + | 2023-01-16 00:00 | ONDANSETRON HCL | [facility] | + + + + | 2022-02-17 00:00 | PSEUDOEPHEDRINE HCL | [facility] | + + + + | 2022-02-25 00:00 | PSEUDOEPHEDRINE HCL | [facility] | + + + + | 2022-03-31 00:00 | PSEUDOEPHEDRINE HCL | [facility] | + + + + | 2022-04-19 00:00 | PSEUDOEPHEDRINE HCL | [facility] | + + + + | 2022-04-20 00:00 | PSEUDOEPHEDRINE HCL | [facility] | + + + + | 2022-05-30 00:00 | PSEUDOEPHEDRINE HCL | [facility] | + + + + | 2022-07-16 00:00 | PSEUDOEPHEDRINE HCL | [facility] | + + + + | 2022-10-15 00:00 | PSEUDOEPHEDRINE HCL | [facility] | + + + + | 2023-01-06 00:00 | PSEUDOEPHEDRINE HCL | [facility] | + + + + | 2023-01-15 00:00 | PSEUDOEPHEDRINE HCL | [facility] | + + + + | 2023-01-16 00:00 | PSEUDOEPHEDRINE HCL | [facility] | + + + + | 2022-02-17 00:00 | PSEUDOEPHEDRINE HCL | [facility] | + + + + | 2022-02-25 00:00 | PSEUDOEPHEDRINE HCL | [facility] | + + + + | 2022-03-31 00:00 | PSEUDOEPHEDRINE HCL | [facility] | + + + + | 2022-04-19 00:00 | PSEUDOEPHEDRINE HCL | [facility] | + + + + | 2022-04-20 00:00 | PSEUDOEPHEDRINE HCL | [facility] | + + + + | 2022-05-30 00:00 | PSEUDOEPHEDRINE HCL | [facility] | + + + + | 2022-07-16 00:00 | PSEUDOEPHEDRINE HCL | [facility] | + + + + | 2022-10-15 00:00 | PSEUDOEPHEDRINE HCL | [facility] | + + + + | 2023-01-06 00:00 | PSEUDOEPHEDRINE HCL | [facility] | + + + + | 2023-01-15 00:00 | PSEUDOEPHEDRINE HCL | [facility] | + + + + | 2023-01-16 00:00 | PSEUDOEPHEDRINE HCL | [facility] | + + + + | 2022-02-17 00:00 | OXYCODONE | [facility] | | | HCL/ACETAMINOPHEN | | + + + + | 2022-02-25 00:00 | OXYCODONE | [facility] | | | HCL/ACETAMINOPHEN | | + + + + | 2022-03-31 00:00 | OXYCODONE | [facility] | | | HCL/ACETAMINOPHEN | | + + + + | 2022-04-19 00:00 | OXYCODONE | [facility] | | | HCL/ACETAMINOPHEN | | + + + + | 2022-04-20 00:00 | OXYCODONE | [facility] | | | HCL/ACETAMINOPHEN | | + + + + | 2022-05-30 00:00 | OXYCODONE | [facility] | | | HCL/ACETAMINOPHEN | | + + + + | 2022-07-16 00:00 | OXYCODONE | [facility] | | | HCL/ACETAMINOPHEN | | + + + + | 2022-10-15 00:00 | OXYCODONE | [facility] | | | HCL/ACETAMINOPHEN | | + + + + | 2023-01-06 00:00 | OXYCODONE | [facility] | | | HCL/ACETAMINOPHEN | | + + + + | 2023-01-15 00:00 | OXYCODONE | [facility] | | | HCL/ACETAMINOPHEN | | + + + + | 2023-01-16 00:00 | OXYCODONE | [facility] | | | HCL/ACETAMINOPHEN | | + + + + | 2018-07-07 00:00 | GABAPENTIN | [facility] | + + + + | 2018-07-07 00:00 | GABAPENTIN | [facility] | + + + + | 2018-07-07 00:00 | GABAPENTIN | [facility] | + + + + | 2018-07-07 00:00 | GABAPENTIN | [facility] | + + + + | 2018-07-07 00:00 | GABAPENTIN | [facility] | + + + + | 2018-07-07 00:00 | GABAPENTIN | [facility] | + + + + | 2018-07-07 00:00 | GABAPENTIN | [facility] | + + + + | 2022-02-17 00:00 | HYDROCORTISONE | [facility] | + + + + | 2022-02-25 00:00 | HYDROCORTISONE | [facility] | + + + + | 2022-03-31 00:00 | HYDROCORTISONE | [facility] | + + + + | 2022-04-19 00:00 | HYDROCORTISONE | [facility] | + + + + | 2022-04-20 00:00 | HYDROCORTISONE | [facility] | + + + + | 2022-02-17 00:00 | DIPHENHYDRAMINE HCL | [facility] | + + + + | 2022-02-25 00:00 | DIPHENHYDRAMINE HCL | [facility] | + + + + | 2022-03-31 00:00 | DIPHENHYDRAMINE HCL | [facility] | + + + + | 2022-04-19 00:00 | DIPHENHYDRAMINE HCL | [facility] | + + + + | 2022-04-20 00:00 | DIPHENHYDRAMINE HCL | [facility] | + + + + | 2022-05-30 00:00 | DIPHENHYDRAMINE HCL | [facility] | + + + + | 2022-07-16 00:00 | DIPHENHYDRAMINE HCL | [facility] | + + + + | 2022-10-15 00:00 | DIPHENHYDRAMINE HCL | [facility] | + + + + | 2023-01-06 00:00 | DIPHENHYDRAMINE HCL | [facility] | + + + + | 2023-01-15 00:00 | DIPHENHYDRAMINE HCL | [facility] | + + + + | 2023-01-16 00:00 | DIPHENHYDRAMINE HCL | [facility] | + + + + | 2021-09-29 00:00 | DIPHENHYDRAMINE HCL/ZINC | [facility] | | | ACET | | + + + + | 2021-09-29 00:00 | DIPHENHYDRAMINE HCL/ZINC | [facility] | | | ACET | | + + + + | 2022-02-17 00:00 | PSYLLIUM HUSK (WITH SUGAR) | [facility] | | | | | + + + + | 2022-02-25 00:00 | PSYLLIUM HUSK (WITH SUGAR) | [facility] | | | | | + + + + | 2022-03-31 00:00 | PSYLLIUM HUSK (WITH SUGAR) | [facility] | | | | | + + + + | 2022-04-19 00:00 | PSYLLIUM HUSK (WITH SUGAR) | [facility] | | | | | + + + + | 2022-04-20 00:00 | PSYLLIUM HUSK (WITH SUGAR) | [facility] | | | | | + + + + | 2022-05-30 00:00 | PSYLLIUM HUSK (WITH SUGAR) | [facility] | | | | | + + + + | 2022-07-16 00:00 | PSYLLIUM HUSK (WITH SUGAR) | [facility] | | | | | + + + + | 2022-10-15 00:00 | PSYLLIUM HUSK (WITH SUGAR) | [facility] | | | | | + + + + | 2023-01-06 00:00 | PSYLLIUM HUSK (WITH SUGAR) | [facility] | | | | | + + + + | 2023-01-15 00:00 | PSYLLIUM HUSK (WITH SUGAR) | [facility] | | | | | + + + + | 2023-01-16 00:00 | PSYLLIUM HUSK (WITH SUGAR) | [facility] | | | | | + + + + | 2022-04-20 00:00 | DIPHENHYDRAMINE HCL | [facility] | + + + + | 2022-05-30 00:00 | DIPHENHYDRAMINE HCL | [facility] | + + + + | 2022-07-16 00:00 | DIPHENHYDRAMINE HCL | [facility] | + + + + | 2022-02-17 00:00 | FERROUS SULFATE | [facility] | + + + + | 2022-02-25 00:00 | FERROUS SULFATE | [facility] | + + + + | 2022-03-31 00:00 | FERROUS SULFATE | [facility] | + + + + | 2022-04-19 00:00 | FERROUS SULFATE | [facility] | + + + + | 2022-04-20 00:00 | FERROUS SULFATE | [facility] | + + + + | 2022-05-30 00:00 | FERROUS SULFATE | [facility] | + + + + | 2022-07-16 00:00 | FERROUS SULFATE | [facility] | + + + + | 2022-10-15 00:00 | FERROUS SULFATE | [facility] | + + + + | 2023-01-06 00:00 | FERROUS SULFATE | [facility] | + + + + | 2023-01-15 00:00 | FERROUS SULFATE | [facility] | + + + + | 2023-01-16 00:00 | FERROUS SULFATE | [facility] | + + + + | 2022-02-17 00:00 | DOCUSATE SODIUM | [facility] | + + + + | 2022-02-25 00:00 | DOCUSATE SODIUM | [facility] | + + + + | 2022-03-31 00:00 | DOCUSATE SODIUM | [facility] | + + + + | 2022-04-19 00:00 | DOCUSATE SODIUM | [facility] | + + + + | 2022-04-20 00:00 | DOCUSATE SODIUM | [facility] | + + + + | 2022-05-30 00:00 | DOCUSATE SODIUM | [facility] | + + + + | 2022-07-16 00:00 | DOCUSATE SODIUM | [facility] | + + + + | 2022-10-15 00:00 | DOCUSATE SODIUM | [facility] | + + + + | 2023-01-06 00:00 | DOCUSATE SODIUM | [facility] | + + + + | 2023-01-15 00:00 | DOCUSATE SODIUM | [facility] | + + + + | 2023-01-16 00:00 | DOCUSATE SODIUM | [facility] | + + + + | 2022-10-15 00:00 | OLANZAPINE | [facility] | + + + + | 2023-01-06 00:00 | OLANZAPINE | [facility] | + + + + | 2023-01-15 00:00 | OLANZAPINE | [facility] | + + + + | 2023-01-16 00:00 | OLANZAPINE | [facility] | + + + + | 2016-07-04 00:00 | DOXYCYCLINE HYCLATE | [facility] | + + + + | 2016-07-04 00:00 | DOXYCYCLINE HYCLATE | [facility] | + + + + | 2016-07-04 00:00 | DOXYCYCLINE HYCLATE | [facility] | + + + + | 2016-07-04 00:00 | DOXYCYCLINE HYCLATE | [facility] | + + + + | 2016-07-04 00:00 | DOXYCYCLINE HYCLATE | [facility] | + + + + | 2016-07-04 00:00 | DOXYCYCLINE HYCLATE | [facility] | + + + + | 2016-07-04 00:00 | DOXYCYCLINE HYCLATE | [facility] | + + + + | 2022-02-17 00:00 | INSULIN LISPRO | [facility] | + + + + | 2022-02-25 00:00 | INSULIN LISPRO | [facility] | + + + + | 2022-03-31 00:00 | INSULIN LISPRO | [facility] | + + + + | 2022-04-19 00:00 | INSULIN LISPRO | [facility] | + + + + | 2022-04-20 00:00 | INSULIN LISPRO | [facility] | + + + + | 2022-05-30 00:00 | INSULIN LISPRO | [facility] | + + + + | 2022-07-16 00:00 | INSULIN LISPRO | [facility] | + + + + | 2022-10-15 00:00 | Insulin Aspart | [facility] | + + + + | 2023-01-06 00:00 | Insulin Aspart | [facility] | + + + + | 2023-01-15 00:00 | Insulin Aspart | [facility] | + + + + | 2023-01-16 00:00 | Insulin Aspart | [facility] | + + + + | 2022-02-17 00:00 | INSULIN ASPART | [facility] | + + + + | 2022-02-25 00:00 | INSULIN ASPART | [facility] | + + + + | 2022-03-31 00:00 | INSULIN ASPART | [facility] | + + + + | 2022-04-19 00:00 | INSULIN ASPART | [facility] | + + + + | 2022-04-20 00:00 | INSULIN ASPART | [facility] | + + + + | 2022-02-17 00:00 | METFORMIN HCL | [facility] | + + + + | 2022-02-25 00:00 | METFORMIN HCL | [facility] | + + + + | 2022-03-31 00:00 | METFORMIN HCL | [facility] | + + + + | 2022-04-19 00:00 | METFORMIN HCL | [facility] | + + + + | 2022-04-20 00:00 | METFORMIN HCL | [facility] | + + + + | 2022-05-30 00:00 | METFORMIN HCL | [facility] | + + + + | 2022-07-16 00:00 | METFORMIN HCL | [facility] | + + + + | 2022-10-15 00:00 | METFORMIN HCL | [facility] | + + + + | 2023-01-06 00:00 | METFORMIN HCL | [facility] | + + + + | 2023-01-15 00:00 | METFORMIN HCL | [facility] | + + + + | 2023-01-16 00:00 | METFORMIN HCL | [facility] | + + + + | 2020-04-07 00:00 | DEXAMETHASONE | [facility] | + + + + | 2020-04-07 00:00 | DEXAMETHASONE | [facility] | + + + + | 2020-04-07 00:00 | DEXAMETHASONE | [facility] | + + + + | 2020-04-07 00:00 | DEXAMETHASONE | [facility] | + + + + | 2020-04-07 00:00 | DEXAMETHASONE | [facility] | + + + + | 2020-04-07 00:00 | DEXAMETHASONE | [facility] | + + + + 2020-04-07 00:00 | DEXAMETHASONE | [facility] | + + + + | 2022-02-17 00:00 | DIAZEPAM | [facility] | + + + + | 2022-02-25 00:00 | DIAZEPAM | [facility] | + + + + | 2022-03-31 00:00 | DIAZEPAM | [facility] | + + + + | 2022-04-19 00:00 | DIAZEPAM | [facility] | + + + + | 2022-04-20 00:00 | DIAZEPAM | [facility] | + + + + | 2022-05-30 00:00 | DIAZEPAM | [facility] | + + + + | 2022-07-16 00:00 | DIAZEPAM | [facility] | + + + + | 2022-10-15 00:00 | DIAZEPAM | [facility] | + + + + | 2023-01-06 00:00 | DIAZEPAM | [facility] | + + + + | 2023-01-15 00:00 | DIAZEPAM | [facility] | + + + + | 2023-01-16 00:00 | DIAZEPAM | [facility] | + + + + | 2022-02-17 00:00 | IBUPROFEN | [facility] | + + + + | 2022-02-25 00:00 | IBUPROFEN | [facility] | + + + + | 2022-03-31 00:00 | IBUPROFEN | [facility] | + + + + | 2022-04-19 00:00 | IBUPROFEN | [facility] | + + + + | 2022-04-20 00:00 | IBUPROFEN | [facility] | + + + + | 2022-05-30 00:00 | IBUPROFEN | [facility] | + + + + | 2022-07-16 00:00 | IBUPROFEN | [facility] | + + + + | 2022-10-15 00:00 | IBUPROFEN | [facility] | + + + + | 2023-01-06 00:00 | IBUPROFEN | [facility] | + + + + | 2023-01-15 00:00 | IBUPROFEN | [facility] | + + + + | 2023-01-16 00:00 | IBUPROFEN | [facility] | + + + + | 2018-07-07 00:00 | METHOCARBAMOL | [facility] | + + + + | 2018-07-07 00:00 | METHOCARBAMOL | [facility] | + + + + | 2018-07-07 00:00 | METHOCARBAMOL | [facility] | + + + + | 2018-07-07 00:00 | METHOCARBAMOL | [facility] | + + + + | 2018-07-07 00:00 | METHOCARBAMOL | [facility] | + + + + | 2018-07-07 00:00 | METHOCARBAMOL | [facility] | + + + + | 2018-07-07 00:00 | METHOCARBAMOL | [facility] | + + + + | 2022-02-17 00:00 | METHOCARBAMOL | [facility] | + + + + | 2022-02-25 00:00 | METHOCARBAMOL | [facility] | + + + + | 2022-03-31 00:00 | METHOCARBAMOL | [facility] | + + + + | 2022-04-19 00:00 | METHOCARBAMOL | [facility] | + + + + | 2022-04-20 00:00 | METHOCARBAMOL | [facility] | + + + + | 2022-05-30 00:00 | METHOCARBAMOL | [facility] | + + + + | 2022-07-16 00:00 | METHOCARBAMOL | [facility] | + + + + | 2022-10-15 00:00 | METHOCARBAMOL | [facility] | + + + + | 2023-01-06 00:00 | METHOCARBAMOL | [facility] | + + + + | 2023-01-15 00:00 | METHOCARBAMOL | [facility] | + + + + | 2023-01-16 00:00 | METHOCARBAMOL | [facility] | + + + + | 2014-05-25 00:00 | NAPROXEN | [facility] | + + + + | 2014-05-25 00:00 | NAPROXEN | [facility] | + + + + | 2014-05-25 00:00 | NAPROXEN | [facility] | + + + + | 2014-05-25 00:00 | NAPROXEN | [facility] | + + + + | 2014-05-25 00:00 | NAPROXEN | [facility] | + + + + | 2014-05-25 00:00 | NAPROXEN | [facility] | + + + + | 2014-05-25 00:00 | NAPROXEN | [facility] | + + + + | 2016-04-08 00:00 | NAPROXEN | [facility] | + + + + | 2016-04-08 00:00 | NAPROXEN | [facility] | + + + + | 2016-04-08 00:00 | NAPROXEN | [facility] | + + + + | 2016-04-08 00:00 | NAPROXEN | [facility] | + + + + | 2016-04-08 00:00 | NAPROXEN | [facility] | + + + + | 2016-04-08 00:00 | NAPROXEN | [facility] | + + + + | 2016-04-08 00:00 | NAPROXEN | [facility] | + + + + | 2022-02-17 00:00 | OMEPRAZOLE | [facility] | + + + + | 2022-02-25 00:00 | OMEPRAZOLE | [facility] | + + + + | 2022-03-31 00:00 | OMEPRAZOLE | [facility] | + + + + | 2022-04-19 00:00 | OMEPRAZOLE | [facility] | + + + + | 2022-04-20 00:00 | OMEPRAZOLE | [facility] | + + + + | 2022-05-30 00:00 | OMEPRAZOLE | [facility] | + + + + | 2022-07-16 00:00 | OMEPRAZOLE | [facility] | + + + + | 2022-10-15 00:00 | OMEPRAZOLE | [facility] | + + + + | 2023-01-06 00:00 | OMEPRAZOLE | [facility] | + + + + | 2023-01-15 00:00 | OMEPRAZOLE | [facility] | + + + + | 2023-01-16 00:00 | OMEPRAZOLE | [facility] | + + + + | 2017-11-03 00:00 | ONDANSETRON HCL | [facility] | + + + + | 2017-11-03 00:00 | ONDANSETRON HCL | [facility] | + + + + | 2017-11-03 00:00 | ONDANSETRON HCL | [facility] | + + + + | 2017-11-03 00:00 | ONDANSETRON HCL | [facility] | + + + + | 2017-11-03 00:00 | ONDANSETRON HCL | [facility] | + + + + | 2017-11-03 00:00 | ONDANSETRON HCL | [facility] | + + + + | 2017-11-03 00:00 | ONDANSETRON HCL | [facility] | + + + + | 2022-02-17 00:00 | RANITIDINE HCL | [facility] | + + + + | 2022-02-25 00:00 | RANITIDINE HCL | [facility] | + + + + | 2022-03-31 00:00 | RANITIDINE HCL | [facility] | + + + + | 2022-04-19 00:00 | RANITIDINE HCL | [facility] | + + + + | 2022-04-20 00:00 | RANITIDINE HCL | [facility] | + + + + | 2022-05-30 00:00 | RANITIDINE HCL | [facility] | + + + + | 2022-07-16 00:00 | RANITIDINE HCL | [facility] | + + + + | 2022-10-15 00:00 | RANITIDINE HCL | [facility] | + + + + | 2023-01-06 00:00 | RANITIDINE HCL | [facility] | + + + + | 2023-01-15 00:00 | RANITIDINE HCL | [facility] | + + + + | 2023-01-16 00:00 | RANITIDINE HCL | [facility] | + + + + | 2014-05-16 00:00 | FAMCICLOVIR | [facility] | + + + + | 2014-05-16 00:00 | FAMCICLOVIR | [facility] | + + + + | 2014-05-16 00:00 | FAMCICLOVIR | [facility] | + + + + | 2014-05-16 00:00 | FAMCICLOVIR | [facility] | + + + + | 2014-05-16 00:00 | FAMCICLOVIR | [facility] | + + + + | 2014-05-16 00:00 | FAMCICLOVIR | [facility] | + + + + | 2014-05-16 00:00 | FAMCICLOVIR | [facility] | + + + + | 2022-02-17 00:00 | MONTELUKAST SODIUM | [facility] | + + + + | 2022-02-25 00:00 | MONTELUKAST SODIUM | [facility] | + + + + | 2022-03-31 00:00 | MONTELUKAST SODIUM | [facility] | + + + + | 2022-04-19 00:00 | MONTELUKAST SODIUM | [facility] | + + + + | 2022-04-20 00:00 | MONTELUKAST SODIUM | [facility] | + + + + | 2022-05-30 00:00 | MONTELUKAST SODIUM | [facility] | + + + + | 2022-07-16 00:00 | MONTELUKAST SODIUM | [facility] | + + + + | 2022-10-15 00:00 | MONTELUKAST SODIUM | [facility] | + + + + | 2023-01-06 00:00 | MONTELUKAST SODIUM | [facility] | + + + + | 2023-01-15 00:00 | MONTELUKAST SODIUM | [facility] | + + + + | 2023-01-16 00:00 | MONTELUKAST SODIUM | [facility] | + + + + | 2022-02-17 00:00 | CEFDINIR | [facility] | + + + + | 2022-02-25 00:00 | CEFDINIR | [facility] | + + + + | 2022-03-31 00:00 | CEFDINIR | [facility] | + + + + | 2022-04-19 00:00 | CEFDINIR | [facility] | + + + + | 2022-04-20 00:00 | CEFDINIR | [facility] | + + + + | 2022-05-30 00:00 | CEFDINIR | [facility] | + + + + | 2022-07-16 00:00 | CEFDINIR | [facility] | + + + + | 2022-10-15 00:00 | CEFDINIR | [facility] | + + + + | 2023-01-06 00:00 | CEFDINIR | [facility] | + + + + | 2023-01-15 00:00 | CEFDINIR | [facility] | + + + + | 2023-01-16 00:00 | CEFDINIR | [facility] | + + + + | 2022-02-17 00:00 | CELECOXIB | [facility] | + + + + | 2022-02-25 00:00 | CELECOXIB | [facility] | + + + + | 2022-03-31 00:00 | CELECOXIB | [facility] | + + + + | 2022-04-19 00:00 | CELECOXIB | [facility] | + + + + | 2022-04-20 00:00 | CELECOXIB | [facility] | + + + + | 2022-05-30 00:00 | CELECOXIB | [facility] | + + + + | 2022-07-16 00:00 | CELECOXIB | [facility] | + + + + | 2022-10-15 00:00 | CELECOXIB | [facility] | + + + + | 2023-01-06 00:00 | CELECOXIB | [facility] | + + + + | 2023-01-15 00:00 | CELECOXIB | [facility] | + + + + | 2023-01-16 00:00 | CELECOXIB | [facility] | + + + + | 2022-02-17 00:00 | LORATADINE | [facility] | + + + + | 2022-02-25 00:00 | LORATADINE | [facility] | + + + + | 2022-03-31 00:00 | LORATADINE | [facility] | + + + + | 2022-04-19 00:00 | LORATADINE | [facility] | + + + + | 2022-04-20 00:00 | LORATADINE | [facility] | + + + + | 2022-05-30 00:00 | LORATADINE | [facility] | + + + + | 2022-07-16 00:00 | LORATADINE | [facility] | + + + + | 2022-10-15 00:00 | LORATADINE | [facility] | + + + + | 2023-01-06 00:00 | LORATADINE | [facility] | + + + + | 2023-01-15 00:00 | LORATADINE | [facility] | + + + + | 2023-01-16 00:00 | LORATADINE | [facility] | + + + + | 2022-02-17 00:00 | METHOCARBAMOL | [facility] | + + + + | 2022-02-25 00:00 | METHOCARBAMOL | [facility] | + + + + | 2022-03-31 00:00 | METHOCARBAMOL | [facility] | + + + + | 2022-04-19 00:00 | METHOCARBAMOL | [facility] | + + + + | 2022-04-20 00:00 | METHOCARBAMOL | [facility] | + + + + | 2022-05-30 00:00 | METHOCARBAMOL | [facility] | + + + + | 2022-07-16 00:00 | METHOCARBAMOL | [facility] | + + + + | 2022-10-15 00:00 | METHOCARBAMOL | [facility] | + + + + | 2023-01-06 00:00 | METHOCARBAMOL | [facility] | + + + + | 2023-01-15 00:00 | METHOCARBAMOL | [facility] | + + + + | 2023-01-16 00:00 | METHOCARBAMOL | [facility] | + + + + | 2019-09-17 00:00 | FLUCONAZOLE | [facility] | + + + + | 2019-09-17 00:00 | FLUCONAZOLE | [facility] | + + + + | 2019-09-17 00:00 | FLUCONAZOLE | [facility] | + + + + | 2019-09-17 00:00 | FLUCONAZOLE | [facility] | + + + + 2019-09-17 00:00 | FLUCONAZOLE | [facility] | + + + + 2019-09-17 00:00 | FLUCONAZOLE | [facility] | + + + + | 2019-09-17 00:00 | FLUCONAZOLE | [facility] | + + + + | 2020-05-21 00:00 | FLUCONAZOLE | [facility] | + + + + | 2020-05-21 00:00 | FLUCONAZOLE | [facility] | + + + + 2020-05-21 00:00 | FLUCONAZOLE | [facility] | + + + + 2020-05-21 00:00 | FLUCONAZOLE | [facility] | + + + + | 2020-05-21 00:00 | FLUCONAZOLE | [facility] | + + + + | 2020-05-21 00:00 | FLUCONAZOLE | [facility] | + + + + | 2020-05-21 00:00 | FLUCONAZOLE | [facility] | + + + + | 2020-08-08 00:00 | ACETAMINOPHEN | [facility] | + + + + | 2020-08-08 00:00 | ACETAMINOPHEN | [facility] | + + + + | 2020-08-08 00:00 | ACETAMINOPHEN | [facility] | + + + + | 2020-08-08 00:00 | ACETAMINOPHEN | [facility] | + + + + | 2020-08-08 00:00 | ACETAMINOPHEN | [facility] | + + + + | 2020-08-08 00:00 | ACETAMINOPHEN | [facility] | + + + + | 2020-08-08 00:00 | ACETAMINOPHEN | [facility] | + + + + | 2022-02-17 00:00 | Fluticasone | [facility] | | | Propion/Salmeterol | | + + + + | 2022-02-25 00:00 | Fluticasone | [facility] | | | Propion/Salmeterol | | + + + + | 2022-03-31 00:00 | Fluticasone | [facility] | | | Propion/Salmeterol | | + + + + | 2022-04-19 00:00 | Fluticasone | [facility] | | | Propion/Salmeterol | | + + + + | 2022-04-20 00:00 | Fluticasone | [facility] | | | Propion/Salmeterol | | + + + + | 2022-05-30 00:00 | Fluticasone | [facility] | | | Propion/Salmeterol | | + + + + | 2022-07-16 00:00 | Fluticasone | [facility] | | | Propion/Salmeterol | | + + + + | 2022-10-15 00:00 | Fluticasone | [facility] | | | Propion/Salmeterol | | + + + + | 2023-01-06 00:00 | Fluticasone | [facility] | | | Propion/Salmeterol | | + + + + | 2023-01-15 00:00 | Fluticasone | [facility] | | | Propion/Salmeterol | | + + + + | 2023-01-16 00:00 | Fluticasone | [facility] | | | Propion/Salmeterol | | + + + + | 2017-06-14 00:00 | CEPHALEXIN | [facility] | + + + + | 2017-06-14 00:00 | CEPHALEXIN | [facility] | + + + + | 2017-06-14 00:00 | CEPHALEXIN | [facility] | + + + + | 2017-06-14 00:00 | CEPHALEXIN | [facility] | + + + + | 2017-06-14 00:00 | CEPHALEXIN | [facility] | + + + + | 2017-06-14 00:00 | CEPHALEXIN | [facility] | + + + + | 2017-06-14 00:00 | CEPHALEXIN | [facility] | + + + + | 2019-12-09 00:00 | CEPHALEXIN | [facility] | + + + + | 2019-12-09 00:00 | CEPHALEXIN | [facility] | + + + + | 2019-12-09 00:00 | CEPHALEXIN | [facility] | + + + + 2019-12-09 00:00 | CEPHALEXIN | [facility] | + + + + 2019-12-09 00:00 | CEPHALEXIN | [facility] | + + + + | 2019-12-09 00:00 | CEPHALEXIN | [facility] | + + + + | 2019-12-09 00:00 | CEPHALEXIN | [facility] | + + + + | 2022-10-15 00:00 | Semaglutide | [facility] | + + + + | 2023-01-06 00:00 | Semaglutide | [facility] | + + + + | 2023-01-15 00:00 | Semaglutide | [facility] | + + + + | 2023-01-16 00:00 | Semaglutide | [facility] | + + + + | 2023-01-06 00:00 | Insulin Glargine-Yfgn | [facility] | + + + + | 2023-01-15 00:00 | Insulin Glargine-Yfgn | [facility] | + + + + | 2023-01-16 00:00 | Insulin Glargine-Yfgn | [facility] | + + + + | 2022-02-17 00:00 | CLINDAMYCIN HCL | [facility] | + + + + | 2022-02-25 00:00 | CLINDAMYCIN HCL | [facility] | + + + + | 2022-03-31 00:00 | CLINDAMYCIN HCL | [facility] | + + + + | 2022-04-19 00:00 | CLINDAMYCIN HCL | [facility] | + + + + | 2022-04-20 00:00 | CLINDAMYCIN HCL | [facility] | + + + + | 2022-05-30 00:00 | CLINDAMYCIN HCL | [facility] | + + + + | 2022-07-16 00:00 | CLINDAMYCIN HCL | [facility] | + + + + | 2022-10-15 00:00 | CLINDAMYCIN HCL | [facility] | + + + + | 2023-01-06 00:00 | CLINDAMYCIN HCL | [facility] | + + + + | 2023-01-15 00:00 | CLINDAMYCIN HCL | [facility] | + + + + | 2023-01-16 00:00 | CLINDAMYCIN HCL | [facility] | + + + + | 2013-04-27 00:00 | PANTOPRAZOLE SODIUM | [facility] | + + + + | 2013-04-27 00:00 | PANTOPRAZOLE SODIUM | [facility] | + + + + | 2013-04-27 00:00 | PANTOPRAZOLE SODIUM | [facility] | + + + + | 2013-04-27 00:00 | PANTOPRAZOLE SODIUM | [facility] | + + + + | 2013-04-27 00:00 | PANTOPRAZOLE SODIUM | [facility] | + + + + | 2013-04-27 00:00 | PANTOPRAZOLE SODIUM | [facility] | + + + + | 2013-04-27 00:00 | PANTOPRAZOLE SODIUM | [facility] | + + + + | 2017-11-03 00:00 | INSULIN GLARGINE | [facility] | + + + + | 2017-11-03 00:00 | INSULIN GLARGINE | [facility] | + + + + | 2017-11-03 00:00 | INSULIN GLARGINE | [facility] | + + + + | 2017-11-03 00:00 | INSULIN GLARGINE | [facility] | + + + + | 2017-11-03 00:00 | INSULIN GLARGINE | [facility] | + + + + | 2017-11-03 00:00 | INSULIN GLARGINE | [facility] | + + + + | 2017-11-03 00:00 | INSULIN GLARGINE | [facility] | + + + + | 2022-02-17 00:00 | AMOXICILLIN | [facility] | + + + + | 2022-02-25 00:00 | AMOXICILLIN | [facility] | + + + + | 2022-03-31 00:00 | AMOXICILLIN | [facility] | + + + + | 2022-04-19 00:00 | AMOXICILLIN | [facility] | + + + + | 2022-04-20 00:00 | AMOXICILLIN | [facility] | + + + + | 2022-05-30 00:00 | AMOXICILLIN | [facility] | + + + + | 2022-07-16 00:00 | AMOXICILLIN | [facility] | + + + + | 2022-10-15 00:00 | AMOXICILLIN | [facility] | + + + + | 2023-01-06 00:00 | AMOXICILLIN | [facility] | + + + + | 2023-01-15 00:00 | AMOXICILLIN | [facility] | + + + + | 2023-01-16 00:00 | AMOXICILLIN | [facility] | + + + + | 2022-02-17 00:00 | AMOXICILLIN | [facility] | + + + + | 2022-02-25 00:00 | AMOXICILLIN | [facility] | + + + + | 2022-03-31 00:00 | AMOXICILLIN | [facility] | + + + + | 2022-04-19 00:00 | AMOXICILLIN | [facility] | + + + + | 2022-04-20 00:00 | AMOXICILLIN | [facility] | + + + + | 2022-05-30 00:00 | AMOXICILLIN | [facility] | + + + + | 2022-07-16 00:00 | AMOXICILLIN | [facility] | + + + + | 2022-10-15 00:00 | AMOXICILLIN | [facility] | + + + + | 2023-01-06 00:00 | AMOXICILLIN | [facility] | + + + + | 2023-01-15 00:00 | AMOXICILLIN | [facility] | + + + + | 2023-01-16 00:00 | AMOXICILLIN | [facility] | + + + + | 2022-02-17 00:00 | ASPIRIN | [facility] | + + + + | 2022-02-25 00:00 | ASPIRIN | [facility] | + + + + | 2022-03-31 00:00 | ASPIRIN | [facility] | + + + + | 2022-04-19 00:00 | ASPIRIN | [facility] | + + + + | 2022-04-20 00:00 | ASPIRIN | [facility] | + + + + | 2022-05-30 00:00 | ASPIRIN | [facility] | + + + + | 2022-07-16 00:00 | ASPIRIN | [facility] | + + + + | 2022-10-15 00:00 | ASPIRIN | [facility] | + + + + | 2023-01-06 00:00 | ASPIRIN | [facility] | + + + + | 2023-01-15 00:00 | ASPIRIN | [facility] | + + + + | 2023-01-16 00:00 | ASPIRIN | [facility] | + + + + | 2019-09-17 00:00 | CLOTRIMAZOLE | [facility] | + + + + | 2019-09-17 00:00 | CLOTRIMAZOLE | [facility] | + + + + | 2019-09-17 00:00 | CLOTRIMAZOLE | [facility] | + + + + | 2019-09-17 00:00 | CLOTRIMAZOLE | [facility] | + + + + | 2019-09-17 00:00 | CLOTRIMAZOLE | [facility] | + + + + | 2019-09-17 00:00 | CLOTRIMAZOLE | [facility] | + + + + | 2019-09-17 00:00 | CLOTRIMAZOLE | [facility] | + + + + | 2022-05-30 00:00 | CLOTRIMAZOLE | [facility] | + + + + | 2022-07-16 00:00 | CLOTRIMAZOLE | [facility] | + + + + | 2022-02-17 00:00 | FERROUS SULFATE | [facility] | + + + + | 2022-02-25 00:00 | FERROUS SULFATE | [facility] | + + + + | 2022-03-31 00:00 | FERROUS SULFATE | [facility] | + + + + | 2022-04-19 00:00 | FERROUS SULFATE | [facility] | + + + + | 2022-04-20 00:00 | FERROUS SULFATE | [facility] | + + + + | 2022-05-30 00:00 | FERROUS SULFATE | [facility] | + + + + | 2022-07-16 00:00 | FERROUS SULFATE | [facility] | + + + + | 2022-10-15 00:00 | FERROUS SULFATE | [facility] | + + + + | 2023-01-06 00:00 | FERROUS SULFATE | [facility] | + + + + | 2023-01-15 00:00 | FERROUS SULFATE | [facility] | + + + + | 2023-01-16 00:00 | FERROUS SULFATE | [facility] | + + + + | 2022-02-17 00:00 | HYDROCHLOROTHIAZIDE | [facility] | + + + + | 2022-02-25 00:00 | HYDROCHLOROTHIAZIDE | [facility] | + + + + | 2022-03-31 00:00 | HYDROCHLOROTHIAZIDE | [facility] | + + + + | 2022-04-19 00:00 | HYDROCHLOROTHIAZIDE | [facility] | + + + + | 2022-04-20 00:00 | HYDROCHLOROTHIAZIDE | [facility] | + + + + | 2022-05-30 00:00 | HYDROCHLOROTHIAZIDE | [facility] | + + + + | 2022-07-16 00:00 | HYDROCHLOROTHIAZIDE | [facility] | + + + + | 2022-10-15 00:00 | HYDROCHLOROTHIAZIDE | [facility] | + + + + | 2023-01-06 00:00 | HYDROCHLOROTHIAZIDE | [facility] | + + + + | 2023-01-15 00:00 | HYDROCHLOROTHIAZIDE | [facility] | + + + + | 2023-01-16 00:00 | HYDROCHLOROTHIAZIDE | [facility] | + + + + | 2019-10-12 00:00 | Ibuprofen | [facility] | + + + + | 2019-10-12 00:00 | Ibuprofen | [facility] | + + + + | 2019-10-12 00:00 | Ibuprofen | [facility] | + + + + | 2019-10-12 00:00 | Ibuprofen | [facility] | + + + + | 2019-10-12 00:00 | Ibuprofen | [facility] | + + + + | 2019-10-12 00:00 | Ibuprofen | [facility] | + + + + | 2019-10-12 00:00 | Ibuprofen | [facility] | + + + + | 2022-02-17 00:00 | LORATADINE | [facility] | + + + + | 2022-02-25 00:00 | LORATADINE | [facility] | + + + + | 2022-03-31 00:00 | LORATADINE | [facility] | + + + + | 2022-04-19 00:00 | LORATADINE | [facility] | + + + + | 2022-04-20 00:00 | LORATADINE | [facility] | + + + + | 2022-05-30 00:00 | LORATADINE | [facility] | + + + + | 2022-07-16 00:00 | LORATADINE | [facility] | + + + + | 2022-10-15 00:00 | LORATADINE | [facility] | + + + + | 2023-01-06 00:00 | LORATADINE | [facility] | + + + + | 2023-01-15 00:00 | LORATADINE | [facility] | + + + + | 2023-01-16 00:00 | LORATADINE | [facility] | + + + + | 2020-01-17 00:00 | ONDANSETRON | [facility] | + + + + | 2020-01-17 00:00 | ONDANSETRON | [facility] | + + + + | 2020-01-17 00:00 | ONDANSETRON | [facility] | + + + + | 2020-01-17 00:00 | ONDANSETRON | [facility] | + + + + | 2020-01-17 00:00 | ONDANSETRON | [facility] | + + + + | 2020-01-17 00:00 | ONDANSETRON | [facility] | + + + + | 2020-01-17 00:00 | ONDANSETRON | [facility] | + + + + | 2020-11-01 00:00 | ONDANSETRON | [facility] | + + + + | 2022-02-25 00:00 | ONDANSETRON | [facility] | + + + + | 2022-02-25 00:00 | ONDANSETRON | [facility] | + + + + | 2022-02-25 00:00 | ONDANSETRON | [facility] | + + + + | 2022-02-25 00:00 | ONDANSETRON | [facility] | + + + + | 2022-02-25 00:00 | ONDANSETRON | [facility] | + + + + | 2023-01-15 00:00 | ONDANSETRON | [facility] | + + + + | 2017-11-08 00:00 | POTASSIUM CHLORIDE | [facility] | + + + + | 2017-11-08 00:00 | POTASSIUM CHLORIDE | [facility] | + + + + | 2017-11-08 00:00 | POTASSIUM CHLORIDE | [facility] | + + + + | 2017-11-08 00:00 | POTASSIUM CHLORIDE | [facility] | + + + + | 2017-11-08 00:00 | POTASSIUM CHLORIDE | [facility] | + + + + | 2017-11-08 00:00 | POTASSIUM CHLORIDE | [facility] | + + + + | 2017-11-08 00:00 | POTASSIUM CHLORIDE | [facility] | + + + + | 2022-02-17 00:00 | ACETAMINOPHEN | [facility] | + + + + | 2022-02-25 00:00 | ACETAMINOPHEN | [facility] | + + + + | 2022-03-31 00:00 | ACETAMINOPHEN | [facility] | + + + + | 2022-04-19 00:00 | ACETAMINOPHEN | [facility] | + + + + | 2022-04-20 00:00 | ACETAMINOPHEN | [facility] | + + + + | 2022-05-30 00:00 | ACETAMINOPHEN | [facility] | + + + + | 2022-07-16 00:00 | ACETAMINOPHEN | [facility] | + + + + | 2022-10-15 00:00 | ACETAMINOPHEN | [facility] | + + + + | 2023-01-06 00:00 | ACETAMINOPHEN | [facility] | + + + + | 2023-01-15 00:00 | ACETAMINOPHEN | [facility] | + + + + | 2023-01-16 00:00 | ACETAMINOPHEN | [facility] | + + + + | 2022-02-17 00:00 | LISINOPRIL | [facility] | + + + + | 2022-02-25 00:00 | LISINOPRIL | [facility] | + + + + | 2022-03-31 00:00 | LISINOPRIL | [facility] | + + + + | 2022-04-19 00:00 | LISINOPRIL | [facility] | + + + + | 2022-04-20 00:00 | LISINOPRIL | [facility] | + + + + | 2022-05-30 00:00 | LISINOPRIL | [facility] | + + + + | 2022-07-16 00:00 | LISINOPRIL | [facility] | + + + + | 2022-10-15 00:00 | LISINOPRIL | [facility] | + + + + | 2023-01-06 00:00 | LISINOPRIL | [facility] | + + + + | 2023-01-15 00:00 | LISINOPRIL | [facility] | + + + + | 2023-01-16 00:00 | LISINOPRIL | [facility] | + + + + | 2017-11-03 00:00 | Insulin Aspart | [facility] | + + + + | 2017-11-03 00:00 | Insulin Aspart | [facility] | + + + + | 2017-11-03 00:00 | Insulin Aspart | [facility] | + + + + | 2017-11-03 00:00 | Insulin Aspart | [facility] | + + + + | 2017-11-03 00:00 | Insulin Aspart | [facility] | + + + + | 2017-11-03 00:00 | Insulin Aspart | [facility] | + + + + | 2017-11-03 00:00 | Insulin Aspart | [facility] [facility] | + + + + | 2020-11-27 00:00 | OMEPRAZOLE MAGNESIUM | [facility] | + + + + | 2020-11-27 00:00 | OMEPRAZOLE MAGNESIUM | [facility] | + + + + | 2020-11-27 00:00 | OMEPRAZOLE MAGNESIUM | [facility] | + + + + | 2020-11-27 00:00 | OMEPRAZOLE MAGNESIUM | [facility] | + + + + | 2020-11-27 00:00 | OMEPRAZOLE MAGNESIUM | [facility] | + + + + | 2020-11-27 00:00 | OMEPRAZOLE MAGNESIUM | [facility] | + + + + | 2020-11-27 00:00 | OMEPRAZOLE MAGNESIUM | [facility] | + + + + | 2020-08-08 00:00 | CALCIUM | [facility] | | | CARBONATE/SIMETHICONE | | + + + + | 2020-08-08 00:00 | CALCIUM | [facility] | | | CARBONATE/SIMETHICONE | | + + + + | 2020-08-08 00:00 | CALCIUM | [facility] | | | CARBONATE/SIMETHICONE | | + + + + | 2020-08-08 00:00 | CALCIUM | [facility] | | | CARBONATE/SIMETHICONE | | + + + + | 2020-08-08 00:00 | CALCIUM | [facility] | | | CARBONATE/SIMETHICONE | | + + + + | 2020-08-08 00:00 | CALCIUM | [facility] | | | CARBONATE/SIMETHICONE | | + + + + | 2020-08-08 00:00 | CALCIUM | [facility] | | | CARBONATE/SIMETHICONE | | + + + + | 2020-11-02 00:00 | CALCIUM | [facility] | | | CARBONATE/SIMETHICONE | | + + + + | 2020-11-02 00:00 | CALCIUM | [facility] | | | CARBONATE/SIMETHICONE | | + + + + | 2020-11-02 00:00 | CALCIUM | [facility] | | | CARBONATE/SIMETHICONE | | + + + + | 2020-11-02 00:00 | CALCIUM | [facility] | | | CARBONATE/SIMETHICONE | | + + + + | 2020-11-02 00:00 | CALCIUM | [facility] | | | CARBONATE/SIMETHICONE | | + + + + | 2020-11-02 00:00 | CALCIUM | [facility] | | | CARBONATE/SIMETHICONE | | + + + + | 2020-11-02 00:00 | CALCIUM | [facility] | | | CARBONATE/SIMETHICONE | | + + + + | 2022-02-17 00:00 | CHOLECALCIFEROL (VITAMIN | [facility] | | | D3) | | + + + + | 2022-02-25 00:00 | CHOLECALCIFEROL (VITAMIN | [facility] | | | D3) | | + + + + | 2022-03-31 00:00 | CHOLECALCIFEROL (VITAMIN | [facility] | | | D3) | | + + + + | 2022-04-19 00:00 | CHOLECALCIFEROL (VITAMIN | [facility] | | | D3) | | + + + + | 2022-04-20 00:00 | CHOLECALCIFEROL (VITAMIN | [facility] | | | D3) | | + + + + | 2022-05-30 00:00 | CHOLECALCIFEROL (VITAMIN | [facility] | | | D3) | | + + + + | 2022-07-16 00:00 | CHOLECALCIFEROL (VITAMIN | [facility] | | | D3) | | + + + + | 2022-10-15 00:00 | CHOLECALCIFEROL (VITAMIN | [facility] | | | D3) | | + + + + | 2023-01-06 00:00 | CHOLECALCIFEROL (VITAMIN | [facility] | | | D3) | | + + + + | 2023-01-15 00:00 | CHOLECALCIFEROL (VITAMIN | [facility] | | | D3) | | + + + + | 2023-01-16 00:00 | CHOLECALCIFEROL (VITAMIN | [facility] | | | D3) | | + + + + | 2022-02-17 00:00 | TIZANIDINE HCL | [facility] | + + + + | 2022-02-25 00:00 | TIZANIDINE HCL | [facility] | + + + + | 2022-03-31 00:00 | TIZANIDINE HCL | [facility] | + + + + | 2022-04-19 00:00 | TIZANIDINE HCL | [facility] | + + + + | 2022-04-20 00:00 | TIZANIDINE HCL | [facility] | + + + + | 2022-05-30 00:00 | TIZANIDINE HCL | [facility] | + + + + | 2022-07-16 00:00 | TIZANIDINE HCL | [facility] | + + + + | 2022-10-15 00:00 | TIZANIDINE HCL | [facility] | + + + + | 2023-01-06 00:00 | TIZANIDINE HCL | [facility] | + + + + | 2023-01-15 00:00 | TIZANIDINE HCL | [facility] | + + + + | 2023-01-16 00:00 | TIZANIDINE HCL | [facility] | + + + + | 2017-11-03 00:00 | FENOFIBRATE,MICRONIZED | [facility] | + + + + | 2017-11-03 00:00 | FENOFIBRATE,MICRONIZED | [facility] | + + + + | 2017-11-03 00:00 | FENOFIBRATE,MICRONIZED | [facility] | + + + + | 2017-11-03 00:00 | FENOFIBRATE,MICRONIZED | [facility] | + + + + | 2017-11-03 00:00 | FENOFIBRATE,MICRONIZED | [facility] | + + + + | 2017-11-03 00:00 | FENOFIBRATE,MICRONIZED | [facility] | + + + + | 2017-11-03 00:00 | FENOFIBRATE,MICRONIZED | [facility] | + + + + | 2022-10-15 00:00 | AMOXICILLIN/POTASSIUM CLAV | [facility] | | | | | + + + + | 2022-10-15 00:00 | AMOXICILLIN/POTASSIUM CLAV | [facility] | | | | | + + + + | 2022-10-15 00:00 | ATORVASTATIN CALCIUM | [facility] | + + + + | 2023-01-06 00:00 | ATORVASTATIN CALCIUM | [facility] | + + + + | 2023-01-15 00:00 | ATORVASTATIN CALCIUM | [facility] | + + + + | 2023-01-16 00:00 | ATORVASTATIN CALCIUM | [facility] | + + + + | 2022-02-17 00:00 | ATORVASTATIN | [facility] | + + + + | 2022-02-25 00:00 | ATORVASTATIN | [facility] | + + + + | 2022-03-31 00:00 | ATORVASTATIN | [facility] | + + + + | 2022-04-19 00:00 | ATORVASTATIN | [facility] | + + + + | 2022-04-20 00:00 | ATORVASTATIN | [facility] | + + + + | 2022-05-30 00:00 | ATORVASTATIN | [facility] | + + + + | 2022-07-16 00:00 | ATORVASTATIN | [facility] | + + + + | 2022-10-15 00:00 | ATORVASTATIN | [facility] | + + + + | 2023-01-06 00:00 | ATORVASTATIN | [facility] | + + + + | 2023-01-15 00:00 | ATORVASTATIN | [facility] | + + + + | 2023-01-16 00:00 | ATORVASTATIN | [facility] | + + + + | 2017-11-03 00:00 | ATORVASTATIN | [facility] | + + + + | 2017-11-03 00:00 | ATORVASTATIN | [facility] | + + + + | 2017-11-03 00:00 | ATORVASTATIN | [facility] | + + + + | 2017-11-03 00:00 | ATORVASTATIN | [facility] | + + + + | 2017-11-03 00:00 | ATORVASTATIN | [facility] | + + + + | 2017-11-03 00:00 | ATORVASTATIN | [facility] | + + + + | 2017-11-03 00:00 | ATORVASTATIN | [facility] | + + + + | 2022-02-17 00:00 | NYSTATIN | [facility] | + + + + | 2022-02-25 00:00 | NYSTATIN | [facility] | + + + + | 2022-03-31 00:00 | NYSTATIN | [facility] | + + + + | 2022-04-19 00:00 | NYSTATIN | [facility] | + + + + | 2022-04-20 00:00 | NYSTATIN | [facility] | + + + + | 2022-05-30 00:00 | NYSTATIN | [facility] | + + + + | 2022-07-16 00:00 | NYSTATIN | [facility] | + + + + | 2022-10-15 00:00 | NYSTATIN | [facility] | + + + + | 2023-01-06 00:00 | NYSTATIN | [facility] | + + + + | 2023-01-15 00:00 | NYSTATIN | [facility] | + + + + | 2023-01-16 00:00 | NYSTATIN | [facility] | + + + + | 2022-02-17 00:00 | ALBUTEROL SULFATE | [facility] | + + + + | 2022-02-25 00:00 | ALBUTEROL SULFATE | [facility] | + + + + | 2022-03-31 00:00 | ALBUTEROL SULFATE | [facility] | + + + + | 2022-04-19 00:00 | ALBUTEROL SULFATE | [facility] | + + + + | 2022-04-20 00:00 | ALBUTEROL SULFATE | [facility] | + + + + | 2022-05-30 00:00 | ALBUTEROL SULFATE | [facility] | + + + + | 2022-07-16 00:00 | ALBUTEROL SULFATE | [facility] | + + + + | 2022-02-17 00:00 | ALBUTEROL SULFATE MDI | [facility] | | | (HFA) | | + + + + | 2022-02-25 00:00 | ALBUTEROL SULFATE MDI | [facility] | | | (HFA) | | + + + + | 2022-03-31 00:00 | ALBUTEROL SULFATE MDI | [facility] | | | (HFA) | | + + + + | 2022-04-19 00:00 | ALBUTEROL SULFATE MDI | [facility] | | | (HFA) | | + + + + | 2022-04-20 00:00 | ALBUTEROL SULFATE MDI | [facility] | | | (HFA) | | + + + + | 2022-05-30 00:00 | ALBUTEROL SULFATE MDI | [facility] | | | (HFA) | | + + + + | 2022-07-16 00:00 | ALBUTEROL SULFATE MDI | [facility] | | | (HFA) | | + + + + | 2022-10-15 00:00 | ALBUTEROL SULFATE MDI | [facility] | | | (HFA) | | + + + + | 2023-01-06 00:00 | ALBUTEROL SULFATE MDI | [facility] | | | (HFA) | | + + + + | 2023-01-15 00:00 | ALBUTEROL SULFATE MDI | [facility] | | | (HFA) | | + + + + | 2023-01-16 00:00 | ALBUTEROL SULFATE MDI | [facility] | | | (HFA) | | + + + + | 2019-08-08 00:00 | CLINDAMYCIN HCL | [facility] | + + + + | 2019-08-08 00:00 | CLINDAMYCIN HCL | [facility] | + + + + | 2019-08-08 00:00 | CLINDAMYCIN HCL | [facility] | + + + + | 2019-08-08 00:00 | CLINDAMYCIN HCL | [facility] | + + + + | 2019-08-08 00:00 | CLINDAMYCIN HCL | [facility] | + + + + | 2019-08-08 00:00 | CLINDAMYCIN HCL | [facility] | + + + + | 2019-08-08 00:00 | CLINDAMYCIN HCL | [facility] | + + + + | 2021-01-10 00:00 | CLINDAMYCIN HCL | [facility] | + + + + | 2021-01-10 00:00 | CLINDAMYCIN HCL | [facility] | + + + + | 2021-01-10 00:00 | CLINDAMYCIN HCL | [facility] | + + + + | 2021-01-10 00:00 | CLINDAMYCIN HCL | [facility] | + + + + | 2021-01-10 00:00 | CLINDAMYCIN HCL | [facility] | + + + + | 2021-01-10 00:00 | CLINDAMYCIN HCL | [facility] | + + + + | 2021-01-10 00:00 | CLINDAMYCIN HCL | [facility] | + + + + | 2021-01-15 00:00 | CLINDAMYCIN HCL | [facility] | + + + + | 2021-01-15 00:00 | CLINDAMYCIN HCL | [facility] | + + + + | 2021-01-15 00:00 | CLINDAMYCIN HCL | [facility] | + + + + | 2021-01-15 00:00 | CLINDAMYCIN HCL | [facility] | + + + + | 2021-01-15 00:00 | CLINDAMYCIN HCL | [facility] | + + + + | 2021-01-15 00:00 | CLINDAMYCIN HCL | [facility] | + + + + | 2021-01-15 00:00 | CLINDAMYCIN HCL | [facility] | + + + + | 2022-02-17 00:00 | CHOLECALCIFEROL (VITAMIN | [facility] | | | D3) | | + + + + | 2022-02-25 00:00 | CHOLECALCIFEROL (VITAMIN | [facility] | | | D3) | | + + + + | 2022-03-31 00:00 | CHOLECALCIFEROL (VITAMIN | [facility] | | | D3) | | + + + + | 2022-04-19 00:00 | CHOLECALCIFEROL (VITAMIN | [facility] | | | D3) | | + + + + | 2022-04-20 00:00 | CHOLECALCIFEROL (VITAMIN | [facility] | | | D3) | | + + + + | 2022-05-30 00:00 | CHOLECALCIFEROL (VITAMIN | [facility] | | | D3) | | + + + + | 2022-07-16 00:00 | CHOLECALCIFEROL (VITAMIN | [facility] | | | D3) | | + + + + | 2022-10-15 00:00 | CHOLECALCIFEROL (VITAMIN | [facility] | | | D3) | | + + + + | 2023-01-06 00:00 | CHOLECALCIFEROL (VITAMIN | [facility] | | | D3) | | + + + + | 2023-01-15 00:00 | CHOLECALCIFEROL (VITAMIN | [facility] | | | D3) | | + + + + | 2023-01-16 00:00 | CHOLECALCIFEROL (VITAMIN | [facility] | | | D3) | | + + + + | 2022-10-15 00:00 | Cholecalciferol (Vitamin | [facility] | | | D3) | | + + + + | 2023-01-06 00:00 | Cholecalciferol (Vitamin | [facility] | | | D3) | | + + + + | 2023-01-15 00:00 | Cholecalciferol (Vitamin | [facility] | | | D3) | | + + + + | 2023-01-16 00:00 | Cholecalciferol (Vitamin | [facility] | | | D3) | | + + + + | 2017-09-01 00:00 | AMOXICILLIN/POTASSIUM CLAV | [facility] | | | | | + + + + | 2017-09-01 00:00 | AMOXICILLIN/POTASSIUM CLAV | [facility] | | | | | + + + + | 2017-09-01 00:00 | AMOXICILLIN/POTASSIUM CLAV | [facility] | | | | | + + + + | 2017-09-01 00:00 | AMOXICILLIN/POTASSIUM CLAV | [facility] | | | | | + + + + | 2017-09-01 00:00 | AMOXICILLIN/POTASSIUM CLAV | [facility] | | | | | + + + + | 2017-09-01 00:00 | AMOXICILLIN/POTASSIUM CLAV | [facility] | | | | | + + + + | 2017-09-01 00:00 | AMOXICILLIN/POTASSIUM CLAV | [facility] | | | | | + + + + | 2019-10-12 00:00 | AMOXICILLIN/POTASSIUM CLAV | [facility] | | | | | + + + + | 2019-10-12 00:00 | AMOXICILLIN/POTASSIUM CLAV | [facility] | | | | | + + + + | 2019-10-12 00:00 | AMOXICILLIN/POTASSIUM CLAV | [facility] | | | | | + + + + | 2019-10-12 00:00 | AMOXICILLIN/POTASSIUM CLAV | [facility] | | | | | + + + + | 2019-10-12 00:00 | AMOXICILLIN/POTASSIUM CLAV | [facility] | | | | | + + + + | 2019-10-12 00:00 | AMOXICILLIN/POTASSIUM CLAV | [facility] | | | | | + + + + | 2019-10-12 00:00 | AMOXICILLIN/POTASSIUM CLAV | [facility] | | | | | + + + + | 2022-02-17 00:00 | CYCLOBENZAPRINE HCL | [facility] | + + + + | 2022-02-25 00:00 | CYCLOBENZAPRINE HCL | [facility] | + + + + | 2022-03-31 00:00 | CYCLOBENZAPRINE HCL | [facility] | + + + + | 2022-04-19 00:00 | CYCLOBENZAPRINE HCL | [facility] | + + + + | 2022-04-20 00:00 | CYCLOBENZAPRINE HCL | [facility] | + + + + | 2022-05-30 00:00 | CYCLOBENZAPRINE HCL | [facility] | + + + + | 2022-07-16 00:00 | CYCLOBENZAPRINE HCL | [facility] | + + + + | 2022-10-15 00:00 | CYCLOBENZAPRINE HCL | [facility] | + + + + | 2023-01-06 00:00 | CYCLOBENZAPRINE HCL | [facility] | + + + + | 2023-01-15 00:00 | CYCLOBENZAPRINE HCL | [facility] | + + + + | 2023-01-16 00:00 | CYCLOBENZAPRINE HCL | [facility] | + + + + | 2017-07-06 00:00 | KETOROLAC TROMETHAMINE | [facility] | + + + + | 2017-07-06 00:00 | KETOROLAC TROMETHAMINE | [facility] | + + + + | 2017-07-06 00:00 | KETOROLAC TROMETHAMINE | [facility] | + + + + | 2017-07-06 00:00 | KETOROLAC TROMETHAMINE | [facility] | + + + + | 2017-07-06 00:00 | KETOROLAC TROMETHAMINE | [facility] | + + + + | 2017-07-06 00:00 | KETOROLAC TROMETHAMINE | [facility] | + + + + | 2017-07-06 00:00 | KETOROLAC TROMETHAMINE | [facility] | + + + + | 2022-02-17 00:00 | LORATADINE | [facility] | + + + + | 2022-02-25 00:00 | LORATADINE | [facility] | + + + + | 2022-03-31 00:00 | LORATADINE | [facility] | + + + + | 2022-04-19 00:00 | LORATADINE | [facility] | + + + + | 2022-04-20 00:00 | LORATADINE | [facility] | + + + + | 2022-05-30 00:00 | LORATADINE | [facility] | + + + + | 2022-07-16 00:00 | LORATADINE | [facility] | + + + + | 2022-10-15 00:00 | LORATADINE | [facility] | + + + + | 2023-01-06 00:00 | LORATADINE | [facility] | + + + + | 2023-01-15 00:00 | LORATADINE | [facility] | + + + + | 2023-01-16 00:00 | LORATADINE | [facility] | + + + + | 2022-02-17 00:00 | INSULIN | [facility] | | | INEZHUM.REC.ANLOG | | + + + + | 2022-02-25 00:00 | INSULIN | [facility] | | | GLADILLANHUM.REC.ANLOG | | + + + + | 2022-03-31 00:00 | INSULIN | [facility] | | | GLARGINE,[facility].REC.ANLOG | | + + + + | 2022-04-19 00:00 | INSULIN | [facility] | | | GLARGINE,[facility].REC.ANLOG | | + + + + | 2022-04-20 00:00 | INSULIN | [facility] | | | GLARBOSSMAN,[facility].REC.ANLOG | | + + + + | 2022-05-30 00:00 | INSULIN | [facility] | | |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 Encounter for medical | [facility] | | | screening examination | | + + + + | 2016-11-29 00:00 | Encounter for medical | [facility] | | | screening examination | | + + + + | 2016-11-29 00:00 | Encounter for medical | [facility] | | | screening examination | | + + + + | 2016-11-29 00:00 | Encounter for medical | [facility] | | | screening examination | | + + + + | 2016-11-29 00:00 | Encounter for medical | [facility] | | | screening examination | | + + + + | 2016-11-29 00:00 | Encounter for medical | [facility] | | | screening examination | | + + + + | 2017-06-14 00:00 | Acute parotitis | [facility] | + + + + | 2017-06-14 00:00 | Acute parotitis | [facility] | + + + + | 2017-06-14 00:00 | Acute parotitis | [facility] | + + + + | 2017-06-14 00:00 | Acute parotitis | [facility] | + + + + | 2017-06-14 00:00 | Acute parotitis | [facility] | + + + + | 2017-06-14 00:00 | Acute parotitis | [facility] | + + + + | 2017-06-14 00:00 | Acute parotitis | [facility] | + + + + | 2017-07-06 00:00 | Mild ankle sprain | [facility] | + + + + | 2017-07-06 00:00 | Mild ankle sprain | [facility] | + + + + | 2017-07-06 00:00 | Mild ankle sprain | [facility] | + + + + | 2017-07-06 00:00 | Mild ankle sprain | [facility] | + + + + | 2017-07-06 00:00 | Mild ankle sprain | [facility] | + + + + | 2017-07-06 00:00 | Mild ankle sprain | [facility] | + + + + | 2017-07-06 00:00 | Mild ankle sprain | [facility] | + + + + | 2017-09-01 00:00 | Right otitis media | [facility] | + + + + | 2017-09-01 00:00 | Right otitis media | [facility] | + + + + | 2017-09-01 00:00 | Right otitis media | [facility] | + + + + | 2017-09-01 00:00 | Right otitis media | [facility] | + + + + | 2017-09-01 00:00 | Right otitis media | [facility] | + + + + | 2017-09-01 00:00 | Right otitis media | [facility] | + + + + | 2017-09-01 00:00 | Right otitis media | [facility] | + + + + | 2017-09-01 00:00 | Cough | [facility] | + + + + | 2017-09-01 00:00 | Cough | [facility] | + + + + | 2017-09-01 00:00 | Cough | [facility] | + + + + | 2017-09-01 00:00 | Cough | [facility] | + + + + | 2017-09-01 00:00 | Cough | [facility] | + + + + | 2017-09-01 00:00 | Cough | [facility] | + + + + | 2017-09-01 00:00 | Cough | [facility] | + + + + | 2017-10-08 00:00 | Cervical radiculopathy | [facility] | + + + + | 2017-10-08 00:00 | Cervical radiculopathy | [facility] | + + + + | 2017-10-08 00:00 | Cervical radiculopathy | [facility] | + + + + | 2017-10-08 00:00 | Cervical radiculopathy | [facility] | + + + + | 2017-10-08 00:00 | Cervical radiculopathy | [facility] | + + + + | 2017-10-08 00:00 | Cervical radiculopathy | [facility] | + + + + | 2017-10-08 00:00 | Cervical radiculopathy | [facility] | + + + + | 2019-06-08 00:00 | Nonspecific chest pain | [facility] | + + + + | 2019-06-08 00:00 | Nonspecific chest pain | [facility] | + + + + | 2019-06-08 00:00 | Nonspecific chest pain | [facility] | + + + + | 2019-06-08 00:00 | Nonspecific chest pain | [facility] | + + + + | 2019-06-08 00:00 | Nonspecific chest pain | [facility] | + + + + | 2019-06-08 00:00 | Nonspecific chest pain | [facility] | + + + + | 2019-06-08 00:00 | Nonspecific chest pain | [facility] | + + + + | 2019-10-12 00:00 | Sinusitis | [facility] | + + + + | 2019-10-12 00:00 | Sinusitis | [facility] | + + + + | 2019-10-12 00:00 | Sinusitis | [facility] | + + + + | 2019-10-12 00:00 | Sinusitis | [facility] | + + + + 2019-10-12 00:00 | Sinusitis | [facility] | + + + + 2019-10-12 00:00 | Sinusitis | [facility] | + + + + | 2019-10-12 00:00 | Sinusitis | [facility] | + + + + | 2020-01-17 00:00 | Poorly controlled diabetes | [facility] | | | mellitus | | + + + + | 2020-01-17 00:00 | Poorly controlled diabetes | [facility] | | | mellitus | | + + + + | 2020-01-17 00:00 | Poorly controlled diabetes | [facility] | | | mellitus | | + + + + | 2020-01-17 00:00 | Poorly controlled diabetes | [facility] | | | mellitus | | + + + + | 2020-01-17 00:00 | Poorly controlled diabetes | [facility] | | | mellitus | | + + + + | 2020-01-17 00:00 | Poorly controlled diabetes | [facility] | | | mellitus | | + + + + | 2020-01-17 00:00 | Poorly controlled diabetes | [facility] | | | mellitus | | + + + + | 2020-01-17 00:00 | Weakness | [facility] | + + + + | 2020-01-17 00:00 | Weakness | [facility] | + + + + | 2020-01-17 00:00 | Weakness | [facility] | + + + + | 2020-01-17 00:00 | Weakness | [facility] | + + + + | 2020-01-17 00:00 | Weakness | [facility] | + + + + | 2020-01-17 00:00 | Weakness | [facility] | + + + + | 2020-01-17 00:00 | Weakness | [facility] | + + + + | 2020-04-02 00:00 | Pneumonia | [facility] | + + + + | 2020-04-02 00:00 | Pneumonia | [facility] | + + + + | 2020-04-02 00:00 | Pneumonia | [facility] | + + + + | 2020-04-02 00:00 | Pneumonia | [facility] | + + + + | 2020-04-02 00:00 | Pneumonia | [facility] | + + + + | 2020-04-02 00:00 | Pneumonia | [facility] | + + + + | 2020-04-02 00:00 | Pneumonia | [facility] | + + + + | 2020-04-02 00:00 | Hypoxia | [facility] | + + + + | 2020-04-02 00:00 | Hypoxia | [facility] | + + + + | 2020-04-02 00:00 | Hypoxia | [facility] | + + + + | 2020-04-02 00:00 | Hypoxia | [facility] | + + + + | 2020-04-02 00:00 | Hypoxia | [facility] | + + + + | 2020-04-02 00:00 | Hypoxia | [facility] | + + + + | 2020-04-02 00:00 | Hypoxia | [facility] | + + + + | 2020-04-02 00:00 | Infection due to severe | [facility] | | | acute respiratory syndrome | | | | coronavirus 2 (SARS-CoV-2) | | + + + + | 2020-04-02 00:00 | Infection due to severe | [facility] | | | acute respiratory syndrome | | | | coronavirus 2 (SARS-CoV-2) | | + + + + | 2020-04-02 00:00 | Infection due to severe | [facility] | | | acute respiratory syndrome | | | | coronavirus 2 (SARS-CoV-2) | | + + + + | 2020-04-02 00:00 | Infection due to severe | [facility] | | | acute respiratory syndrome | | | | coronavirus 2 (SARS-CoV-2) | | + + + + | 2020-04-02 00:00 | Infection due to severe | [facility] | | | acute respiratory syndrome | | | | coronavirus 2 (SARS-CoV-2) | | + + + + | 2020-04-02 00:00 | Infection due to severe | [facility] | | | acute respiratory syndrome | | | | coronavirus 2 (SARS-CoV-2) | | + + + + | 2020-04-02 00:00 | Infection due to severe | [facility] | | | acute respiratory syndrome | | | | coronavirus 2 (SARS-CoV-2) | | + + + + | 2020-05-21 00:00 | Candidal vulvovaginitis | [facility] | + + + + | 2020-05-21 00:00 | Candidal vulvovaginitis | [facility] | + + + + | 2020-05-21 00:00 | Candidal vulvovaginitis | [facility] | + + + + | 2020-05-21 00:00 | Candidal vulvovaginitis | [facility] | + + + + | 2020-05-21 00:00 | Candidal vulvovaginitis | [facility] | + + + + | 2020-05-21 00:00 | Candidal vulvovaginitis | [facility] | + + + + | 2020-05-21 00:00 | Candidal vulvovaginitis | [facility] | + + + + | 2020-05-21 00:00 | Cyst of Bartholin's gland | [facility] | | | duct | | + + + + | 2020-05-21 00:00 | Cyst of Bartholin's gland | [facility] | | | duct | | + + + + | 2020-05-21 00:00 | Cyst of Bartholin's gland | [facility] | | | duct | | + + + + | 2020-05-21 00:00 | Cyst of Bartholin's gland | [facility] | | | duct | | + + + + | 2020-05-21 00:00 | Cyst of Bartholin's gland | [facility] | | | duct | | + + + + | 2020-05-21 00:00 | Cyst of Bartholin's gland | [facility] | | | duct | | + + + + | 2020-05-21 00:00 | Cyst of Bartholin's gland | [facility] | | | duct | | + + + + | 2020-06-23 00:00 | Right hand paresthesia | [facility] | + + + + | 2020-06-23 00:00 | Right hand paresthesia | [facility] | + + + + | 2020-06-23 00:00 | Right hand paresthesia | [facility] | + + + + | 2020-06-23 00:00 | Right hand paresthesia | [facility] | + + + + 2020-06-23 00:00 | Right hand paresthesia | [facility] | + + + + | 2020-06-23 00:00 | Right hand paresthesia | [facility] | + + + + | 2020-06-23 00:00 | Right hand paresthesia | [facility] | + + + + | 2020-08-04 00:00 | Patient left without being | [facility] | | | seen | | + + + + | 2020-08-04 00:00 | Patient left without being | [facility] | | | seen | | + + + + | 2020-08-04 00:00 | Patient left without being | [facility] | | | seen | | + + + + | 2020-08-04 00:00 | Patient left without being | [facility] | | | seen | | + + + + | 2020-08-04 00:00 | Patient left without being | [facility] | | | seen | | + + + + | 2020-08-04 00:00 | Patient left without being | [facility] | | | seen | | + + + + | 2020-08-04 00:00 | Patient left without being | [facility] | | | seen | | + + + + | 2020-08-08 00:00 | Temporal headache | [facility] | + + + + | 2020-08-08 00:00 | Temporal headache | [facility] | + + + + | 2020-08-08 00:00 | Temporal headache | [facility] | + + + + | 2020-08-08 00:00 | Temporal headache | [facility] | + + + + | 2020-08-08 00:00 | Temporal headache | [facility] | + + + + | 2020-08-08 00:00 | Temporal headache | [facility] | + + + + | 2020-08-08 00:00 | Temporal headache | [facility] | + + + + | 2020-09-02 00:00 | Dysuria | [facility] | + + + + | 2020-09-02 00:00 | Dysuria | [facility] | + + + + | 2020-09-02 00:00 | Dysuria | [facility] | + + + + | 2020-09-02 00:00 | Dysuria | [facility] | + + + + | 2020-09-02 00:00 | Dysuria | [facility] | + + + + | 2020-09-02 00:00 | Dysuria | [facility] | + + + + | 2020-09-02 00:00 | Dysuria | [facility] | + + + + | 2020-09-27 00:00 | Type 2 diabetes mellitus | [facility] | | | with hyperglycemia | | + + + + | 2020-09-27 00:00 | Type 2 diabetes mellitus | [facility] | | | with hyperglycemia | | + + + + | 2020-09-27 00:00 | Type 2 diabetes mellitus | [facility] | | | with hyperglycemia | | + + + + | 2020-09-27 00:00 | Type 2 diabetes mellitus | [facility] | | | with hyperglycemia | | + + + + | 2020-09-27 00:00 | Type 2 diabetes mellitus | [facility] | | | with hyperglycemia | | + + + + | 2020-09-27 00:00 | Type 2 diabetes mellitus | [facility] | | | with hyperglycemia | | + + + + | 2020-09-27 00:00 | Type 2 diabetes mellitus | [facility] | | | with hyperglycemia | | + + + + | 2020-11-01 00:00 | Acute colitis | [facility] | + + + + | 2020-11-01 00:00 | Acute colitis | [facility] | + + + + | 2020-11-01 00:00 | Acute colitis | [facility] | + + + + | 2020-11-01 00:00 | Acute colitis | [facility] | + + + + | 2020-11-01 00:00 | Acute colitis | [facility] | + + + + | 2020-11-01 00:00 | Acute colitis | [facility] | + + + + | 2020-11-01 00:00 | Acute colitis | [facility] | + + + + | 2020-11-03 00:00 | Nausea | [facility] | + + + + | 2020-11-03 00:00 | Nausea | [facility] | + + + + | 2020-11-03 00:00 | Nausea | [facility] | + + + + | 2020-11-03 00:00 | Nausea | [facility] | + + + + | 2020-11-03 00:00 | Nausea | [facility] | + + + + | 2020-11-03 00:00 | Nausea | [facility] | + + + + | 2020-11-03 00:00 | Nausea | [facility] | + + + + | 2021-01-10 00:00 | Kandice infection of | [facility] | | | genital region | | + + + + | 2021-01-10 00:00 | Kandice infection of | [facility] | | | genital region | | + + + + | 2021-01-10 00:00 | Kandice infection of | [facility] | | | genital region | | + + + + | 2021-01-10 00:00 | Kandice infection of | [facility] | | | genital region | | + + + + | 2021-01-10 00:00 | Kandice infection of | [facility] | | | genital region | | + + + + | 2021-01-10 00:00 | Kandice infection of | [facility] | | | genital region | | + + + + | 2021-01-10 00:00 | Kandice infection of | [facility] | | | genital region | | + + + + | 2021-01-10 00:00 | Abscess | [facility] | + + + + | 2021-01-10 00:00 | Abscess | [facility] | + + + + | 2021-01-10 00:00 | Abscess | [facility] | + + + + | 2021-01-10 00:00 | Abscess | [facility] | + + + + | 2021-01-10 00:00 | Abscess | [facility] | + + + + | 2021-01-10 00:00 | Abscess | [facility] | + + + + | 2021-01-10 00:00 | Abscess | [facility] | + + + + | 2021-01-12 00:00 | Constipation | [facility] | + + + + | 2021-01-12 00:00 | Constipation | [facility] | + + + + | 2021-01-12 00:00 | Constipation | [facility] | + + + + | 2021-01-12 00:00 | Constipation | [facility] | + + + + | 2021-01-12 00:00 | Constipation | [facility] | + + + + | 2021-01-12 00:00 | Constipation | [facility] | + + + + | 2021-01-12 00:00 | Constipation | [facility] | + + + + | 2021-03-25 00:00 | Non-cardiac chest pain | [facility] | + + + + | 2021-03-25 00:00 | Non-cardiac chest pain | [facility] | + + + + | 2021-03-25 00:00 | Non-cardiac chest pain | [facility] | + + + + | 2021-03-25 00:00 | Non-cardiac chest pain | [facility] | + + + + | 2021-03-25 00:00 | Non-cardiac chest pain | [facility] | + + + + | 2021-03-25 00:00 | Non-cardiac chest pain | [facility] | + + + + | 2021-03-25 00:00 | Non-cardiac chest pain | [facility] | + + + + | 2021-04-06 00:00 | Strain of abdominal muscle | [facility] | | | | | + + + + | 2021-04-06 00:00 | Strain of abdominal muscle | [facility] | | | | | + + + + | 2021-04-06 00:00 | Strain of abdominal muscle | [facility] | | | | | + + + + | 2021-04-06 00:00 | Strain of abdominal muscle | [facility] | | | | | + + + + | 2021-04-06 00:00 | Strain of abdominal muscle | [facility] | | | | | + + + + | 2021-04-06 00:00 | Strain of abdominal muscle | [facility] | | | | | + + + + | 2021-04-06 00:00 | Strain of abdominal muscle | [facility] | | | | | + + + + | 2021-09-29 00:00 | Abscess of right buttock | [facility] | + + + + | 2021-09-29 00:00 | Abscess of right buttock | [facility] | + + + + | 2021-09-29 00:00 | Abscess of right buttock | [facility] | + + + + | 2021-09-29 00:00 | Abscess of right buttock | [facility] | + + + + | 2021-09-29 00:00 | Abscess of right buttock | [facility] | + + + + | 2021-09-29 00:00 | Abscess of right buttock | [facility] | + + + + | 2021-09-29 00:00 | Abscess of right buttock | [facility] | + + + + | 2021-11-14 00:00 | Migraine with aura | [facility] | + + + + | 2021-11-14 00:00 | Migraine with aura | [facility] | + + + + | 2021-11-14 00:00 | Migraine with aura | [facility] | + + + + | 2021-11-14 00:00 | Migraine with aura | [facility] | + + + + | 2021-11-14 00:00 | Migraine with aura | [facility] | + + + + | 2021-11-14 00:00 | Migraine with aura | [facility] | + + + + | 2021-11-14 00:00 | Migraine with aura | [facility] | + + + + | 2021-11-15 00:00 | Headache | [facility] | + + + + | 2021-11-15 00:00 | Headache | [facility] | + + + + | 2021-11-15 00:00 | Headache | [facility] | + + + + | 2021-11-15 00:00 | Headache | [facility] | + + + + | 2021-11-15 00:00 | Headache | [facility] | + + + + | 2021-11-15 00:00 | Headache | [facility] | + + + + | 2021-11-15 00:00 | Headache | [facility] | + + + + | 2022-04-20 00:00 | Sprain of left wrist | [facility] | + + + + | 2022-04-20 00:00 | Sprain of left wrist | [facility] | + + + + | 2022-04-20 00:00 | Sprain of left wrist | [facility] | + + + + | 2022-04-20 00:00 | Sprain of left wrist | [facility] | + + + + | 2022-04-20 00:00 | Sprain of left wrist | [facility] | + + + + | 2022-10-11 00:00 | Sepsis | [facility] | + + + + | 2022-10-11 00:00 | Sepsis | [facility] | + + + + | 2022-10-11 00:00 | Diabetic ketoacidosis | [facility] | + + + + | 2022-10-11 00:00 | Diabetic ketoacidosis | [facility] | + + + + | 2023-01-06 00:00 | Uncontrolled diabetes | [facility] | | | mellitus | | + + + + | 2023-01-06 00:00 | Strain of lumbar region | [facility] | + + + + | 2023-01-15 11:48 | TYPE 2 DIABETES MELLITUS | [facility] | | | WITHOUT COMPLICATIONS | | + + + + | 2023-01-15 11:48 | Essential (primary) | [facility] | | | hypertension | | + + + + | 2023-01-15 11:48 | Dizziness and giddiness | [facility] | + + + + | 2023-01-15 11:48 | RETIREMENT (CURRENT) USE OF | [facility] | | | INSULIN | | + + + + | 2023-01-15 11:48 | OTHER RETIREMENT (CURRENT) | [facility] | | | DRUG THERAPY | | + + + + | 2023-01-15 11:48 | PERSONAL HISTORY OF SUDDEN | [facility] | | | CARDIAC ARREST | | + + + + | 2023-01-15 11:48 | ALLERGY STATUS TO | [facility] | | | ANESTHETIC AGENT STATUS | | + + + + | 2023-01-15 11:48 | ALLERGY STATUS TO NARCOTIC | [facility] | | | AGENT STATUS | | + + + + | 2023-01-15 11:48 | LATEX ALLERGY STATUS | [facility] | + + + + | 2023-01-15 11:48 | RADIOGRAPHIC DYE ALLERGY | [facility] | | | STATUS | | + + + + | 2023-02-04 07:30 | TYPE 2 DIABETES MELLITUS | [facility] | | | WITHOUT COMPLIC | | + + + + | 2023-02-04 07:30 | OBESITY, UNSPECIFIED | [facility] | + + + + | 2023-02-04 07:30 | PURE HYPERCHOLESTEROLEMIA, | [facility] | | | UNSPECIFIED | | + + + + | 2023-02-04 07:30 | UNSPECIFIED ASTHMA, | [facility] | | | UNCOMPLICATED | | + + + + | 2023-02-04 07:30 | CONSTIPATION, UNSPECIFIED | [facility] | + + + + | 2023-02-04 07:30 | DORSALGIA, UNSPECIFIED | [facility] | + + + + | 2023-02-04 07:30 | PERSONAL HISTORY OF | [facility] | | | COLONIC POLYPS | | + + + + Procedures No information. Results/Labs +--------+--------+ + +---------+--------+ + | test | date | author | facility | value | unit | | | | | | | | | interpreta | | | | | | | | tion | +--------+--------+ + +---------+--------+ + + + | Result panel 1 | + + + + + + +---------+ + + | (unknown) | (no date) | (unknown) | [facility] | (no | (units | (unknown) | | | | [facility] | value) | unknown) [facility] | | | | + + + + +---------+ + + + + | Result panel 2 | + + + + + + +---------+ + + | (unknown) | (no date) | (unknown) | [facility] | (no | (units | (unknown) | | | | [facility] | value) | unknown) | | [facility] | | [facility] | | | | + + + + +---------+ + + + + | Result panel 3 | + + + + + + +---------+ + + | (unknown) | (no date) | (unknown) | [facility] [facility] (no | (units | (unknown) | | | | [facility] | value) | unknown) | | | | | [facility] | | | | + + + + +---------+ + + + + | Result panel 4 | + + + + + + +---------+ + + | (unknown) | (no date) | (unknown) | [facility] | (no | (units | (unknown) | | | | [facility] | value) | unknown) | | | | [facility] | | | | + + + + +---------+ + + + + | Result panel 5 | + + + + + + +---------+ + + | (unknown) | (no date) | (unknown) | [facility] | (no | (units | (unknown) | | | | [facility] | value) | unknown) | | | | [facility] | | | | + + + + +---------+ + + + + | Result panel 6 | + + + + + + +---------+ + + | (unknown) | (no date) | (unknown) | [facility] | (no | (units | (unknown) | | | | [facility] | value) | unknown) | | | | [facility] | | | | + + + + +---------+ + + + + | Result panel 7 | + + + + + + +---------+ + + | (unknown) | (no date) | (unknown) | [facility] | (no | (units | (unknown) | | | | | [facility] | value) | unknown) | | [facility] | [facility] | | | | + + + + +---------+ + + + + | Result panel 8 | + + + + + + +---------+ + + | (unknown) | (no date) | (unknown) | [facility] | (no | (units | (unknown) | | | | | [facility] | value) | unknown) | | | | [facility] | | | | + + + + +---------+ + + + + | Result panel 9 | + + + + + + +---------+ + + | (unknown) | (no date) | (unknown) | [facility] | (no | (units | (unknown) | | | | | [facility] | value) | unknown) | | | | [facility] | | | | + + + + +---------+ + + + + | Result panel 10 | + + + + + + +---------+ + + | (unknown) | (no date) | (unknown) | [facility] | (no | (units | (unknown) | | | | | [facility] | value) | unknown) | | | | [facility] | | | | + + + + +---------+ + + + + | Result panel 11 | + + + + + + +---------+ + + | (unknown) | (no date) | (unknown) | [facility] | (no | (units | (unknown) | | | | | [facility] | value) | unknown) | | | | [facility] | | | | + + + + +---------+ + + + + | Result panel 12 | + + + + + + +---------+ + + | (unknown) | (no date) | (unknown) | [facility] | (no | (units | (unknown) | | | | | [facility] | value) | unknown) | | | | [facility] | | | | + + + + +---------+ + + + + | Result panel 13 | + + + + + + +---------+ + + | (unknown) | (no date) | (unknown) | [facility] | (no | (units | (unknown) | | | | | [facility] | value) | unknown) | | [facility] | [facility] | | | | + + + + +---------+ + + + + | Result panel 14 | + + + + + + +---------+ + + | (unknown) | (no date) | (unknown) | [facility] | (no | (units | (unknown) | | | | | [facility] | value) | unknown) | | | | [facility] | | | | + + + + +---------+ + + + + | Result panel 15 | + + + + + + +---------+ + + | (unknown) | (no date) | (unknown) | [facility] | (no | (units | (unknown) | | | | [facility] | value) | unknown) | | | | [facility] | | | | + + + + +---------+ + + + + | Result panel 16 | + + + + + + +---------+ + + | (unknown) | (no date) | (unknown) | [facility] | (no | (units | (unknown) | | | | | [facility] | value) | unknown) | [facility] | | [facility] | | | | + + + + +---------+ + + + + | Result panel 17 | + + + + + + +---------+ + + | (unknown) | (no date) | (unknown) | [facility] | (no | (units | (unknown) | | | | | [facility] | value) | unknown) | | | | [facility] | | | | + + + + +---------+ + + + + | Result panel 18 | + + + + + + +---------+ + + | (unknown) | (no date) | (unknown) | [facility] | (no | (units | (unknown) | | | | | [facility] | value) | unknown) | | | | [facility] | | | | + + + + +---------+ + + + + | Result panel 19 | + + + + + + +---------+ + + | (unknown) | (no date) | (unknown) | [facility] | (no | (units | (unknown) | | | | | [facility] | value) | unknown) | | | | [facility] | | | | + + + + +---------+ + + + + | Result panel 20 | + + + + + + +---------+ + + | (unknown) | (no date) | (unknown) | [facility] | (no | (units | (unknown) | | | | [facility] | value) | unknown) | [facility] | | [facility] | | | | + + + + +---------+ + + + + | Result panel 21 | + + + + + + +---------+ + + | (unknown) | (no date) | (unknown) | [facility] | (no | (units | (unknown) | | | | | [facility] | value) | unknown) | [facility] | | [facility] | | | | + + + + +---------+ + + + + | Result panel 22 | + + + + + + +---------+ + + | (unknown) | (no date) | (unknown) | [facility] | (no | (units | (unknown) | | | | | [facility] | value) | unknown) | | | | [facility] | | | | + + + + +---------+ + + + + | Result panel 23 | + + + + + + +---------+ + + | (unknown) | (no date) | (unknown) | [facility] | (no | (units | (unknown) | | | | | [facility] | value) | unknown) | | | | [facility] | | | | + + + + +---------+ + + + + | Result panel 24 | + + + + + + +---------+ + + | (unknown) | (no date) | (unknown) | [facility] | (no | (units | (unknown) | | | | | [facility] | value) | unknown) | | | | [facility] | | | | + + + + +---------+ + + + + | Result panel 25 | + + + + + + +---------+ + + | (unknown) | (no date) | (unknown) | [facility] | (no | (units | (unknown) | | | | | [facility] | value) | unknown) | | | | [facility] | | | | + + + + +---------+ + + + + | Result panel 26 | + + + + + + +---------+ + + | (unknown) | (no date) | (unknown) | [facility] | (no | (units | (unknown) | | | | | [facility] | value) | unknown) | | | | [facility] | | | | + + + + +---------+ + + + + | Result panel 27 | + + + + + + +---------+ + + | (unknown) | (no date) | (unknown) | [facility] | (no | (units | (unknown) | | | | | [facility] | value) | unknown) | | | | [facility] | | | | + + + + +---------+ + + + + | Result panel 28 | + + + + + + +---------+ + + | (unknown) | (no date) | (unknown) | [facility] | (no | (units | (unknown) | | | | | [facility] | value) | unknown) | | | | [facility] | | | | + + + + +---------+ + + + + | Result panel 29 | + + + + + + +---------+ + + | (unknown) | (no date) | (unknown) | [facility] | (no | (units | (unknown) | | | | | [facility] | value) | unknown) | [facility] | | [facility] | | | | + + + + +---------+ + + + + | Result panel 30 | + + + + + + +---------+ + + | (unknown) | (no date) | (unknown) | [facility] | (no | (units | (unknown) | | | | | [facility] | value) | unknown) | | [facility] | [facility] | | | | + + + + +---------+ + + + + | Result panel 31 | + + + + + + +---------+ + + | (unknown) | (no date) | (unknown) | [facility] | (no | (units | (unknown) | | | | | [facility] | value) | unknown) | | [facility] | [facility] | | | | + + + + +---------+ + + + + | Result panel 32 | + + + + + + +---------+ + + | (unknown) | (no date) | (unknown) | [facility] | (no | (units | (unknown) | | | | [facility] | value) | unknown) | | [facility] | [facility] | | | | + + + + +---------+ + + + + | Result panel 33 | + + + + + + +---------+ + + | (unknown) | (no date) | (unknown) | [facility] | (no | (units | (unknown) | | | | | [facility] | value) | unknown) | | | | [facility] | | | | + + + + +---------+ + + + + | Result panel 34 | + + + + + + +---------+ + + | (unknown) | (no date) | (unknown) | [facility] | (no | (units | (unknown) | | | | | [facility] | value) | unknown) | | [facility] | [facility] | | | | + + + + +---------+ + + + + | Result panel 35 | + + + + + + +---------+ + + | (unknown) | (no date) | (unknown) | [facility] | (no | (units | (unknown) | | | | | [facility] | value) | unknown) | | | | [facility] | | | | + + + + +---------+ + + + + | Result panel 36 | + + + + + + +---------+ + + | (unknown) | (no date) | (unknown) | [facility] | (no | (units | (unknown) | | | | | [facility] | value) | unknown) | | [facility] | [facility] | | | | + + + + +---------+ + + + + | Result panel 37 | + + + + + + +---------+ + + | (unknown) | (no date) | (unknown) | [facility] | (no | (units | (unknown) | | | | | [facility] | value) | unknown) | | | | [facility] | | | | + + + + +---------+ + + + + | Result panel 38 | + + + + + + +---------+ + + | (unknown) | (no date) | (unknown) | [facility] | (no | (units | (unknown) | | | | | [facility] | value) | unknown) | | | | | [facility] | | | | + + + + +---------+ + + + + | Result panel 39 | + + + + + + +---------+ + + | (unknown) | (no date) | (unknown) | [facility] | (no | (units | (unknown) | | | | | [facility] | value) | unknown) | | | | [facility] | | | | + + + + +---------+ + + + + | Result panel 40 | + + + + + + +---------+ + + | (unknown) | (no date) | (unknown) | [facility] | (no | (units | (unknown) | | | | | [facility] | value) | unknown) | | | | [facility] | | | | + + + + +---------+ + + + + | Result panel 41 | + + + + + + +---------+ + + | (unknown) | (no date) | (unknown) | [facility] | (no | (units | (unknown) | | | | | [facility] | value) | unknown) | | | | [facility] | | | | + + + + +---------+ + + + + | Result panel 42 | + + + + + + +---------+ + + | (unknown) | (no date) | (unknown) | [facility] | (no | (units | (unknown) | | | | | [facility] | value) | unknown) | | | | [facility] | | | | + + + + +---------+ + + + + | Result panel 43 | + + + + + + +---------+ + + | (unknown) | (no date) | (unknown) | [facility] | (no | (units | (unknown) | | | | [facility] | value) | unknown) | | | | [facility] | | | | + + + + +---------+ + + + + | Result panel 44 | + + + + + + +---------+ + + | (unknown) | (no date) | (unknown) | [facility] | (no | (units | (unknown) | | | | [facility] | value) | unknown) | | | | [facility] | | | | + + + + +---------+ + + + + | Result panel 45 | + + + + + + +---------+ + + | (unknown) | (no date) | (unknown) | [facility] | (no | (units | (unknown) | | | | | [facility] | value) | unknown) | [facility] | | [facility] | | | | + + + + +---------+ + + + + | Result panel 46 | + + + + + + +---------+ + + | (unknown) | (no date) | (unknown) | [facility] | (no | (units | (unknown) | | | | | [facility] | value) | unknown) | | | | | [facility] | | | | + + + + +---------+ + + + + | Result panel 47 | + + + + + + +---------+ + + | (unknown) | (no date) | (unknown) | [facility] | (no | (units | (unknown) | | | | | [facility] | value) | unknown) | | | | | [facility] | | | | + + + + +---------+ + + + + | Result panel 48 | + + + + + + +---------+ + + | (unknown) | (no date) | (unknown) | [facility] | (no | (units | (unknown) | | | | | [facility] | value) | unknown) | | | | | [facility] | | | | + + + + +---------+ + + + + | Result panel 49 | + + + + + + +---------+ + + | (unknown) | (no date) | (unknown) | [facility] | (no | (units | (unknown) | | | | | [facility] | value) | unknown) | [facility] | | [facility] | | | | + + + + +---------+ + + + + | Result panel 50 | + + + + + + +---------+ + + | (unknown) | (no date) | (unknown) | [facility] | (no | (units | (unknown) | | | | | [facility] | value) | unknown) | | | | [facility] | | | | + + + + +---------+ + + + + | Result panel 51 | + + + + + + +---------+ + + | (unknown) | (no date) | (unknown) | [facility] | (no | (units | (unknown) | | | | | [facility] | value) | unknown) | [facility] | | [facility] | | | | + + + + +---------+ + + + + | Result panel 52 | + + + + + + +---------+ + + | (unknown) | (no date) | (unknown) | [facility] | (no | (units | (unknown) | | | | | [facility] | value) | unknown) | | | | | [facility] | | | | + + + + +---------+ + + + + | Result panel 53 | + + + + + + +---------+ + + | (unknown) | (no date) | (unknown) | [facility] | (no | (units | (unknown) | | | | | [facility] | value) | unknown) | | [facility] | [facility] | | | | + + + + +---------+ + + + + | Result panel 54 | + + + + + + +---------+ + + | (unknown) | (no date) | (unknown) | [facility] | (no | (units | (unknown) | | | | [facility] | value) | unknown) | | | | [facility] | | | | + + + + +---------+ + + + + | Result panel 55 | + + + + + + +---------+ + + | (unknown) | (no date) | (unknown) | [facility] | (no | (units | (unknown) | | | | [facility] | value) | unknown) | | [facility] | [facility] | | | | + + + + +---------+ + + + + | Result panel 56 | + + + + + + +---------+ + + | (unknown) | (no date) | (unknown) | [facility] | (no | (units | (unknown) | | | | [facility] | value) | unknown) | | | | | [facility] | | | | + + + + +---------+ + + + + | Result panel 57 | + + + + + + +---------+ + + | (unknown) | (no date) | (unknown) | [facility] | (no | (units | (unknown) | | | | [facility] | value) | unknown) | | [facility] | [facility] | | | | + + + + +---------+ + + + + | Result panel 58 | + + + + + + +---------+ + + | (unknown) | (no date) | (unknown) | [facility] | (no | (units | (unknown) | | | | [facility] | value) | unknown) | | | | | [facility] | | | | + + + + +---------+ + + + + | Result panel 59 | + + + + + + +---------+ + + | (unknown) | (no date) | (unknown) | [facility] | (no | (units | (unknown) | | | | [facility] | value) | unknown) | | | | | [facility] | | | | + + + + +---------+ + + + + | Result panel 60 | + + + + + + +---------+ + + | (unknown) | (no date) | (unknown) | [facility] | (no | (units | (unknown) | | | | [facility] | value) | unknown) | | | | | [facility] | | | | + + + + +---------+ + + + + | Result panel 61 | + + + + + + +---------+ + + | (unknown) | (no date) | (unknown) | [facility] | (no | (units | (unknown) | | | | [facility] | value) | unknown) | | | | [facility] | | | | + + + + +---------+ + + + + | Result panel 62 | + + + + + + +---------+ + + | (unknown) | (no date) | (unknown) | [facility] | (no | (units | (unknown) | | | | [facility] | value) | unknown) | | | | [facility] | | | | + + + + +---------+ + + + + | Result panel 63 | + + + + + + +---------+ + + | (unknown) | (no date) | (unknown) | [facility] | (no | (units | (unknown) | | | | [facility] | value) | unknown) | | [facility] | [facility] | | | | + + + + +---------+ + + + + | Result panel 64 | + + + + + + +---------+ + + | (unknown) | (no date) | (unknown) | [facility] | (no | (units | (unknown) | | | | [facility] | value) | unknown) | | [facility] | [facility] | | | | + + + + +---------+ + + + + | Result panel 65 | + + + + + + +---------+ + + | (unknown) | (no date) | (unknown) | [facility] | (no | (units | (unknown) | | | | [facility] | value) | unknown) | | [facility] | [facility] | | | | + + + + +---------+ + + + + | Result panel 66 | + + + + + + +---------+ + + | (unknown) | (no date) | (unknown) | [facility] | (no | (units | (unknown) | | | | [facility] | value) | unknown) | | | | [facility] | | | | + + + + +---------+ + + + + | Result panel 67 | + + + + + + +---------+ + + | (unknown) | (no date) | (unknown) | [facility] | (no | (units | (unknown) | | [facility] | [facility] | value) | unknown) | | | | [facility] | | | | + + + + +---------+ + + + + | Result panel 68 | + + + + + + +---------+ + + | (unknown) | (no date) | (unknown) | [facility] | (no | (units | (unknown) | | | | [facility] | value) | unknown) | | | | [facility] | | | | + + + + +---------+ + + + + | Result panel 69 | + + + + + + +---------+ + + | (unknown) | (no date) | (unknown) | [facility] | (no | (units | (unknown) | | | | [facility] | value) | unknown) | | | | [facility] | | | | + + + + +---------+ + + + + | Result panel 70 | + + + + + + +---------+ + + | (unknown) | (no date) | (unknown) | [facility] | (no | (units | (unknown) | | | | [facility] | value) | unknown) | | | | [facility] | | | | + + + + +---------+ + + + + | Result panel 71 | + + + + + + +---------+ + + | (unknown) | (no date) | (unknown) | [facility] | (no | (units | (unknown) | | | | [facility] | value) | unknown) | | [facility] | [facility] | | | | + + + + +---------+ + + + + | Result panel 72 | + + + + + + +---------+ + + | (unknown) | (no date) | (unknown) | [facility] | (no | (units | (unknown) | | | | [facility] | value) | unknown) | | [facility] | [facility] | | | | + + + + +---------+ + + + + | Result panel 73 | + + + + + + +---------+ + + | (unknown) | (no date) | (unknown) | [facility] | (no | (units | (unknown) | | | | [facility] | value) | unknown) | [facility] | | [facility] | | | | + + + + +---------+ + + + + | Result panel 74 | + + + + + + +---------+ + + | (unknown) | (no date) | (unknown) | [facility] | (no | (units | (unknown) | | | | [facility] | value) | unknown) | | [facility] | [facility] | | | | + + + + +---------+ + + + + | Result panel 75 | + + + + + + +---------+ + + | (unknown) | (no date) | (unknown) | [facility] | (no | (units | (unknown) | | | | [facility] | value) | unknown) | | [facility] | [facility] | | | | + + + + +---------+ + + + + | Result panel 76 | + + + + + + +---------+ + + | (unknown) | (no date) | (unknown) | [facility] | (no | (units | (unknown) | | | | [facility] | value) | unknown) | [facility] | | [facility] | | | | + + + + +---------+ + + + + | Result panel 77 | + + + + + + +---------+ + + | (unknown) | (no date) | (unknown) | [facility] | (no | (units | (unknown) | | | | [facility] | value) | unknown) | [facility] | | [facility] | | | | + + + + +---------+ + + + + | Result panel 78 | + + + + + + +---------+ + + | (unknown) | (no date) | (unknown) | [facility] | (no | (units | (unknown) | | | | [facility] | value) | unknown) | | | | | [facility] | | | | + + + + +---------+ + + + + | Result panel 79 | + + + + + + +---------+ + + | (unknown) | (no date) | (unknown) | [facility] | (no | (units | (unknown) | | | | [facility] | value) | unknown) | | [facility] | [facility] | | | | + + + + +---------+ + + + + | Result panel 80 | + + + + + + +---------+ + + | (unknown) | (no date) | (unknown) | [facility] | (no | (units | (unknown) | | | | [facility] | value) | unknown) | | | | | [facility] | | | | + + + + +---------+ + + + + | Result panel 81 | + + + + + + +---------+ + + | (unknown) | (no date) | (unknown) | [facility] | (no | (units | (unknown) | | | | [facility] | value) | unknown) | | | | | [facility] | | | | + + + + +---------+ + + + + | Result panel 82 | + + + + + + +---------+ + + | (unknown) | (no date) | (unknown) | [facility] | (no | (units | (unknown) | | | | [facility] | value) | unknown) | | | | | [facility] | | | | + + + + +---------+ + + + + | Result panel 83 | + + + + + + +---------+ + + | (unknown) | (no date) | (unknown) | [facility] | (no | (units | (unknown) | | | | [facility] | value) | unknown) | | | | | [facility] | | | | + + + + +---------+ + + + + | Result panel 84 | + + + + + + +---------+ + + | (unknown) | (no date) | (unknown) | [facility] | (no | (units | (unknown) | | | | [facility] | value) | unknown) | | [facility] | [facility] | | | | + + + + +---------+ + + + + | Result panel 85 | + + + + + + +---------+ + + | (unknown) | (no date) | (unknown) | [facility] | (no | (units | (unknown) | | | | [facility] | value) | unknown) | | | | | [facility] | | | | + + + + +---------+ + + + + | Result panel 86 | + + + + + + +---------+ + + | (unknown) | (no date) | (unknown) | [facility] | (no | (units | (unknown) | | | | [facility] | value) | unknown) | [facility] | | [facility] | | | | + + + + +---------+ + + + + | Result panel 87 | + + + + + + +---------+ + + | (unknown) | (no date) | (unknown) | [facility] | (no | (units | (unknown) | | | | [facility] | value) | unknown) | | | | | [facility] | | | | + + + + +---------+ + + + + | Result panel 88 | + + + + + + +---------+ + + | (unknown) | (no date) | (unknown) | [facility] | (no | (units | (unknown) | | | | [facility] | value) | unknown) | | | | | [facility] | | | | + + + + +---------+ + + + + | Result panel 89 | + + + + + + +---------+ + + | (unknown) | (no date) | (unknown) | [facility] | (no | (units | (unknown) | | | | [facility] | value) | unknown) | | | | [facility] | | | | + + + + +---------+ + + + + | Result panel 90 | + + + + + + +---------+ + + | (unknown) | (no date) | (unknown) | [facility] | (no | (units | (unknown) | | | | [facility] | value) | unknown) | [facility] | [facility] | | | | + + + + +---------+ + + + + | Result panel 91 | + + + + + + +---------+ + + | (unknown) | (no date) | (unknown) | [facility] | (no | (units | (unknown) | | | | [facility] | value) | unknown) | | | | | [facility] | | | | + + + + +---------+ + + + + | Result panel 92 | + + + + + + +---------+ + + | (unknown) | (no date) | (unknown) | [facility] | (no | (units | (unknown) | | | | [facility] | value) | unknown) | | | | | [facility] | | | | + + + + +---------+ + + + + | Result panel 93 | + + + + + + +---------+ + + | (unknown) | (no date) | (unknown) | [facility] | (no | (units | (unknown) | | | | [facility] | value) | unknown) | | | | | [facility] | | | | + + + + +---------+ + + + + | Result panel 94 | + + + + + + +---------+ + + | (unknown) | (no date) | (unknown) | [facility] | (no | (units | (unknown) | | | | [facility] | value) | unknown) | | | | [facility] | | | | + + + + +---------+ + + + + | Result panel 95 | + + + + + + +---------+ + + | (unknown) | (no date) | (unknown) | [facility] | (no | (units | (unknown) | | | | [facility] | value) | unknown) | | [facility] | [facility] | | | | + + + + +---------+ + + + + | Result panel 96 | + + + + + + +---------+ + + | (unknown) | (no date) | (unknown) | [facility] | (no | (units | (unknown) | | | | [facility] | value) | unknown) | | | | [facility] | | | | + + + + +---------+ + + + + | Result panel 97 | + + + + + + +---------+ + + | (unknown) | (no date) | (unknown) | [facility] | (no | (units | (unknown) | | | | [facility] | value) | unknown) | [facility] | [facility] | | | | + + + + +---------+ + + + + | Result panel 98 | + + + + + + +---------+ + + | (unknown) | (no date) | (unknown) | [facility] | (no | (units | (unknown) | | | | [facility] | value) | unknown) | [facility] | | [facility] | | | | + + + + +---------+ + + + + | Result panel 99 | + + + + + + +---------+ + + | (unknown) | (no date) | (unknown) | [facility] | (no | (units | (unknown) | | | | [facility] | value) | unknown) | | [facility] | [facility] | | | | + + + + +---------+ + + + + | Result panel 100 | + + + + + + +---------+ + + | (unknown) | (no date) | (unknown) | [facility] | (no | (units | (unknown) | | | | [facility] | value) | unknown) | | | | [facility] | | | | + + + + +---------+ + + + + | Result panel 101 | + + + + + + +---------+ + + | (unknown) | (no date) | (unknown) | [facility] | (no | (units | (unknown) | | | | [facility] | value) | unknown) | | | | [facility] | | | | + + + + +---------+ + + + + | Result panel 102 | + + + + + + +---------+ + + | (unknown) | (no date) | (unknown) | [facility] | (no | (units | (unknown) | | | | [facility] | value) | unknown) | | [facility] | [facility] | | | | + + + + +---------+ + + + + | Result panel 103 | + + + + + + +---------+ + + | (unknown) | (no date) | (unknown) | [facility] | (no | (units | (unknown) | | | | [facility] | value) | unknown) | | | | [facility] | | | | + + + + +---------+ + + + + | Result panel 104 | + + + + + + +---------+ + + | (unknown) | (no date) | (unknown) | [facility] | (no | (units | (unknown) | | | | | [facility] | value) | unknown) | | | | | [facility] | | | | + + + + +---------+ + + + + | Result panel 105 | + + + + + + +---------+ + + | (unknown) | (no date) | (unknown) | [facility] | (no | (units | (unknown) | | | | | [facility] | value) | unknown) | | | | | [facility] | | | | + + + + +---------+ + + + + | Result panel 106 | + + + + + + +---------+ + + | (unknown) | (no date) | (unknown) | [facility] | (no | (units | (unknown) | | | | | [facility] | value) | unknown) | | | | | [facility] | | | | + + + + +---------+ + + + + | Result panel 107 | + + + + + + +---------+ + + | (unknown) | (no date) | (unknown) | [facility] | (no | (units | (unknown) | | | | | [facility] | value) | unknown) | | | | | [facility] | | | | + + + + +---------+ + + + + | Result panel 108 | + + + + + + +---------+ + + | (unknown) | (no date) | (unknown) | [facility] | (no | (units | (unknown) | | | | | [facility] | value) | unknown) | | | | | [facility] | | | | + + + + +---------+ + + + + | Result panel 109 | + + + + + + +---------+ + + | (unknown) | (no date) | (unknown) | [facility] | (no | (units | (unknown) | | | | | [facility] | value) | unknown) | | | | | [facility] | | | | + + + + +---------+ + + + + | Result panel 110 | + + + + + + +---------+ + + | (unknown) | (no date) | (unknown) | [facility] | (no | (units | (unknown) | | | | | [facility] | value) | unknown) | | | | | [facility] | | | | + + + + +---------+ + + + + | Result panel 111 | + + + + + + +---------+ + + | (unknown) | (no date) | (unknown) | [facility] | (no | (units | (unknown) | | | | | [facility] | value) | unknown) | | | | | [facility] | | | | + + + + +---------+ + + + + | Result panel 112 | + + + + + + +---------+ + + | (unknown) | (no date) | (unknown) | [facility] | (no | (units | (unknown) | | | | | [facility] | value) | unknown) | | | | | [facility] | | | | + + + + +---------+ + + + + | Result panel 113 | + + + + + + +---------+ + + | (unknown) | (no date) | (unknown) | [facility] | (no | (units | (unknown) | | | | | [facility] | value) | unknown) | | | | | [facility] | | | | + + + + +---------+ + + + + | Result panel 114 | + + + + + + +---------+ + + | (unknown) | (no date) | (unknown) | [facility] | (no | (units | (unknown) | | | | | [facility] | value) | unknown) | | | | | [facility] | | | | + + + + +---------+ + + + + | Result panel 115 | + + + + + + +---------+ + + | (unknown) | (no date) | (unknown) | [facility] | (no | (units | (unknown) | | | | | [facility] value) | unknown) | | | | | [facility] | | | | + + + + +---------+ + + + + | Result panel 116 | + + + + + + +---------+ + + | (unknown) | (no date) | (unknown) | [facility] | (no | (units | (unknown) | | | | | [facility] | value) | unknown) | | | | | [facility] | | | | + + + + +---------+ + + + + | Result panel 117 | + + + + + + +---------+ + + | (unknown) | (no date) | (unknown) | [facility] | (no | (units | (unknown) | | | | | [facility] | value) | unknown) | | | | [facility] | | | | + + + + +---------+ + + + + | Result panel 118 | + + + + + + +---------+ + + | (unknown) | (no date) | (unknown) | [facility] | (no | (units | (unknown) | | | | | [facility] | value) | unknown) | | | | [facility] | | | | + + + + +---------+ + + + + | Result panel 119 | + + + + + + +---------+ + + | (unknown) | (no date) | (unknown) | [facility] | (no | (units | (unknown) | | | | | [facility] | value) | unknown) | | | | [facility] | | | | + + + + +---------+ + + + + | Result panel 120 | + + + + + + +---------+ + + | (unknown) | (no date) | (unknown) | [facility] | (no | (units | (unknown) | | | | | [facility] | value) | unknown) | | | | [facility] | | | | + + + + +---------+ + + + + | Result panel 121 | + + + + + + +---------+ + + | (unknown) | (no date) | (unknown) | [facility] | (no | (units | (unknown) | | | | | [facility] | value) | unknown) | | | | [facility] | | | | + + + + +---------+ + + + + | Result panel 122 | + + + + + + +---------+ + + | (unknown) | (no date) | (unknown) | [facility] | (no | (units | (unknown) | | | | | [facility] | value) | [facility]) | | [facility] | [facility] | | | | + + + + +---------+ + + + + | Result panel 123 | + + + + + + +---------+ + + | (unknown) | (no date) | (unknown) | [facility] | (no | (units | (unknown) | | | | | [facility] | value) | unknown) | | | | [facility] | | | | + + + + +---------+ + + + + | Result panel 124 | + + + + + + +---------+ + + | (unknown) | (no date) | (unknown) | [facility] | (no | (units | (unknown) | | | | | [facility] | value) | unknown) | | | | [facility] | | | | + + + + +---------+ + + + + | Result panel 125 | + + + + + + +---------+ + + | (unknown) | (no date) | (unknown) | [facility] | (no | (units | (unknown) | | | | | [facility] | value) | unknown) | | | | [facility] | | | | + + + + +---------+ + + + + | Result panel 126 | + + + + + + +---------+ + + | (unknown) | (no date) | (unknown) | [facility] | (no | (units | (unknown) | | | | | [facility] | value) | unknown) | | | | [facility] | | | | + + + + +---------+ + + + + | Result panel 127 | + + + + + + +---------+ + + | (unknown) | (no date) | (unknown) | [facility] | (no | (units | (unknown) | | | | | [facility] | value) | unknown) | | | | [facility] | | | | + + + + +---------+ + + + + | Result panel 128 | + + + + + + +---------+ + + | (unknown) | (no date) | (unknown) | [facility] | (no | (units | (unknown) | | | | | [facility] | value) | unknown) | | | | [facility] | | | | + + + + +---------+ + + + + | Result panel 129 | + + + + + + +---------+ + + | (unknown) | (no date) | (unknown) | [facility] | (no | (units | (unknown) | | | | | [facility] | value) | unknown) | | | | | [facility] | | | | + + + + +---------+ + + + + | Result panel 130 | + + + + + + +---------+ + + | (unknown) | (no date) | (unknown) | [facility] | (no | (units | (unknown) | | | | | [facility] | value) | unknown) | | | | [facility] | | | | + + + + +---------+ + + + + | Result panel 131 | + + + + + + +---------+ + + | (unknown) | (no date) | (unknown) | [facility] | (no | (units | (unknown) | | | | | [facility] | value) | unknown) | | | | [facility] | | | | + + + + +---------+ + + + + | Result panel 132 | + + + + + + +---------+ + + | (unknown) | (no date) | (unknown) | [facility] | (no | (units | (unknown) | | | | | [facility] | value) | unknown) | | | | [facility] | | | | + + + + +---------+ + + + + | Result panel 133 | + + + + + + +---------+ + + | (unknown) | (no date) | (unknown) | [facility] | (no | (units | (unknown) | | | | | [facility] | value) | unknown) | | | | [facility] | | | | + + + + +---------+ + + + + | Result panel 134 | + + + + + + +---------+ + + | (unknown) | (no date) | (unknown) | [facility] | (no | (units | (unknown) | | | | | [facility] | value) | unknown) | [facility] | | [facility] | | | | + + + + +---------+ + + + + | Result panel 135 | + + + + + + +---------+ + + | (unknown) | (no date) | (unknown) | [facility] | (no | (units | (unknown) | | | | | [facility] | value) | unknown) | | | | [facility] | | | | + + + + +---------+ + + + + | Result panel 136 | + + + + + + +---------+ + + | (unknown) | (no date) | (unknown) | [facility] | (no | (units | (unknown) | | | | | [facility] | value) | unknown) | | | | [facility] | | | | + + + + +---------+ + + + + | Result panel 137 | + + + + + + +---------+ + + | (unknown) | (no date) | (unknown) | [facility] | (no | (units | (unknown) | | | | | [facility] | value) | unknown) | | | | [facility] | | | | + + + + +---------+ + + + + | Result panel 138 | + + + + + + +---------+ + + | (unknown) | (no date) | (unknown) | [facility] | (no | (units | (unknown) | | | | | [facility] | value) | unknown) | | | | [facility] | | | | + + + + +---------+ + + + + | Result panel 139 | + + + + + + +---------+ + + | (unknown) | (no date) | (unknown) | [facility] | (no | (units | (unknown) | | | | | [facility] | value) | unknown) | [facility] | | [facility] | | | | + + + + +---------+ + + + + | Result panel 140 | + + + + + + +---------+ + + | (unknown) | (no date) | (unknown) | [facility] | (no | (units | (unknown) | | | | | [facility] | value) | unknown) | | | | [facility] | | | | + + + + +---------+ + + + + | Result panel 141 | + + + + + + +---------+ + + | (unknown) | (no date) | (unknown) | [facility] | (no | (units | (unknown) | | | | | [facility] | value) | unknown) | | [facility] | [facility] | | | | + + + + +---------+ + + + + | Result panel 142 | + + + + + + +---------+ + + | (unknown) | (no date) | (unknown) | [facility] | (no | (units | (unknown) | | | | | [facility] | value) | unknown) | | | | [facility] | | | | + + + + +---------+ + + + + | Result panel 143 | + + + + + + +---------+ + + | (unknown) | (no date) | (unknown) | [facility] | (no | (units | (unknown) | | | | | [facility] | value) | unknown) | | | | [facility] | | | | + + + + +---------+ + + + + | Result panel 144 | + + + + + + +---------+ + + | (unknown) | (no date) | (unknown) | [facility] | (no | (units | (unknown) | | | | | [facility] | value) | unknown) | | | | [facility] | | | | + + + + +---------+ + + + + | Result panel 145 | + + + + + + +---------+ + + | (unknown) | (no date) | (unknown) | [facility] | (no | (units | (unknown) | | | | | [facility] | value) | unknown) | | | | [facility] | | | | + + + + +---------+ + + + + | Result panel 146 | + + + + + + +---------+ + + | (unknown) | (no date) | (unknown) | [facility] | (no | (units | (unknown) | | | | | [facility] | value) | unknown) | [facility] | | [facility] | | | | + + + + +---------+ + + + + | Result panel 147 | + + + + + + +---------+ + + | (unknown) | (no date) | (unknown) | [facility] | (no | (units | (unknown) | | | | | [facility] | value) | unknown) | | | | [facility] | | | | + + + + +---------+ + + + + | Result panel 148 | + + + + + + +---------+ + + | (unknown) | (no date) | (unknown) | [facility] | (no | (units | (unknown) | | | | | [facility] | value) | unknown) | | | | [facility] | | | | + + + + +---------+ + + + + | Result panel 149 | + + + + + + +---------+ + + | (unknown) | (no date) | (unknown) | [facility] | (no | (units | (unknown) | | | | | [facility] | value) | unknown) | [facility] | | [facility] | | | | + + + + +---------+ + + + + | Result panel 150 | + + + + + + +---------+ + + | (unknown) | (no date) | (unknown) | [facility] | (no | (units | (unknown) | | | | | [facility] | value) | unknown) | | | | | [facility] | | | | + + + + +---------+ + + + + | Result panel 151 | + + + + + + +---------+ + + | (unknown) | (no date) | (unknown) | [facility] | (no | (units | (unknown) | | | | | [facility] | value) | unknown) | | | | | [facility] | | | | + + + + +---------+ + + + + | Result panel 152 | + + + + + + +---------+ + + | (unknown) | (no date) | (unknown) | [facility] | (no | (units | (unknown) | | | | | [facility] | value) | unknown) | | | | [facility] | | | | + + + + +---------+ + + + + | Result panel 153 | + + + + + + +---------+ + + | (unknown) | (no date) | (unknown) | [facility] | (no | (units | (unknown) | | | | | [facility] | value) | unknown) | | | | [facility] | | | | + + + + +---------+ + + + + | Result panel 154 | + + + + + + +---------+ + + | (unknown) | (no date) | (unknown) | [facility] | (no | (units | (unknown) | | | | | [facility] | value) | unknown) | | | | [facility] | | | | + + + + +---------+ + + + + | Result panel 155 | + + + + + + +---------+ + + | (unknown) | (no date) | (unknown) | [facility] | (no | (units | (unknown) | | | | | [facility] | value) | unknown) | [facility] | | [facility] | | | | + + + + +---------+ + + + + | Result panel 156 | + + + + + + +---------+ + + | (unknown) | (no date) | (unknown) | [facility] | (no | (units | (unknown) | | | | | [facility] | value) | unknown) | | | | [facility] | | | | + + + + +---------+ + + + + | Result panel 157 | + + + + + + +---------+ + + | (unknown) | (no date) | (unknown) | [facility] | (no | (units | (unknown) | | | | | [facility] | value) | unknown) | | | | [facility] | | | | + + + + +---------+ + + + + | Result panel 158 | + + + + + + +---------+ + + | (unknown) | (no date) | (unknown) | [facility] | (no | (units | (unknown) | | | | | [facility] | value) | unknown) | | | | | [facility] | | | | + + + + +---------+ + + + + | Result panel 159 | + + + + + + +---------+ + + | (unknown) | (no date) | (unknown) | [facility] | (no | (units | (unknown) | | | | | [facility] | value) | unknown) | | | | [facility] | | | | + + + + +---------+ + + + + | Result panel 160 | + + + + + + +---------+ + + | (unknown) | (no date) | (unknown) | [facility] | (no | (units | (unknown) | | | | | [facility] | value) | unknown) | | | | [facility] | | | | + + + + +---------+ + + + + | Result panel 161 | + + + + + + +---------+ + + | (unknown) | (no date) | (unknown) | [facility] | (no | (units | (unknown) | | | | | [facility] | value) | unknown) | [facility] | | [facility] | | | | + + + + +---------+ + + + + | Result panel 162 | + + + + + + +---------+ + + | (unknown) | (no date) | (unknown) | [facility] | (no | (units | (unknown) | | | | | [facility] | value) | unknown) | | [facility] | [facility] | | | | + + + + +---------+ + + + + | Result panel 163 | + + + + + + +---------+ + + | (unknown) | (no date) | (unknown) | [facility] | (no | (units | (unknown) | | | | | [facility] | value) | unknown) | | [facility] | [facility] | | | | + + + + +---------+ + + + + | Result panel 164 | + + + + + + +---------+ + + | (unknown) | (no date) | (unknown) | [facility] | (no | (units | (unknown) | | | | | [facility] | value) | unknown) | | | | | [facility] | | | | + + + + +---------+ + + + + | Result panel 165 | + + + + + + +---------+ + + | (unknown) | (no date) | (unknown) | [facility] | (no | (units | (unknown) | | | | | [facility] | value) | unknown) | | | | | [facility] | | | | + + + + +---------+ + + + + | Result panel 166 | + + + + + + +---------+ + + | (unknown) | (no date) | (unknown) | [facility] | (no | (units | (unknown) | | | | | [facility] | value) | unknown) | | | | | [facility] | | | | + + + + +---------+ + + + + | Result panel 167 | + + + + + + +---------+ + + | (unknown) | (no date) | (unknown) | [facility] | (no | (units | (unknown) | | | | | [facility] | value) | unknown) | | | | | [facility] | | | | + + + + +---------+ + + + + | Result panel 168 | + + + + + + +---------+ + + | (unknown) | (no date) | (unknown) | [facility] | (no | (units | (unknown) | | | | | [facility] | value) | unknown) | | | | [facility] | | | | + + + + +---------+ + + + + | Result panel 169 | + + + + + + +---------+ + + | (unknown) | (no date) | (unknown) | [facility] | (no | (units | (unknown) | | | | | [facility] | value) | unknown) | | | | | [facility] | | | | + + + + +---------+ + + + + | Result panel 170 | + + + + + + +---------+ + + | (unknown) | (no date) | (unknown) | [facility] | (no | (units | (unknown) | | | | | [facility] | value) | unknown) | | | | | [facility] | | | | + + + + +---------+ + + + + | Result panel 171 | + + + + + + +---------+ + + | (unknown) | (no date) | (unknown) | [facility] | (no | (units | (unknown) | | | | | [facility] | value) | unknown) | | | | [facility] | | | | + + + + +---------+ + + + + | Result panel 172 | + + + + + + +---------+ + + | (unknown) | (no date) | (unknown) | [facility] | (no | (units | (unknown) | | | | | [facility] | value) | unknown) | | [facility] | | [facility] | | | | + + + + +---------+ + + + + | Result panel 173 | + + + + + + +---------+ + + | (unknown) | (no date) | (unknown) | [facility] | (no | (units | (unknown) | | | | | [facility] | value) | unknown) | | | | | [facility] | | | | + + + + +---------+ + + + + | Result panel 174 | + + + + + + +---------+ + + | (unknown) | (no date) | (unknown) | [facility] | (no | (units | (unknown) | | | | | [facility] | value) | unknown) | | | | | [facility] | | | | + + + + +---------+ + + + + | Result panel 175 | + + + + + + +---------+ + + | (unknown) | (no date) | (unknown) | [facility] | (no | (units | (unknown) | | | | | [facility] | value) | unknown) | | [facility] | [facility] | | | | + + + + +---------+ + + + + | Result panel 176 | + + + + + + +---------+ + + | (unknown) | (no date) | (unknown) | [facility] | (no | (units | (unknown) | | | | | [facility] | value) | unknown) | | | | [facility] | | | | + + + + +---------+ + + + + | Result panel 177 | + + + + + + +---------+ + + | (unknown) | (no date) | (unknown) | [facility] | (no | (units | (unknown) | | | | | [facility] | value) | unknown) | | | | [facility] | | | | + + + + +---------+ + + + + | Result panel 178 | + + + + + + +---------+ + + | (unknown) | (no date) | (unknown) | [facility] | (no | (units | (unknown) | | | | | [facility] | value) | unknown) | [facility] | | [facility] | | | | + + + + +---------+ + + + + | Result panel 179 | + + + + + + +---------+ + + | (unknown) | (no date) | (unknown) | [facility] | (no | (units | (unknown) | | | | | [facility] | value) | unknown) | | | | [facility] | | | | + + + + +---------+ + + + + | Result panel 180 | + + + + + + +---------+ + + | (unknown) | (no date) | (unknown) | [facility] | (no | (units | (unknown) | | | | | [facility] | value) | unknown) | | | | [facility] | | | | + + + + +---------+ + + + + | Result panel 181 | + + + + + + +---------+ + + | (unknown) | (no date) | (unknown) | [facility] | (no | (units | (unknown) | | | | | [facility] | value) | unknown) | | | | [facility] | | | | + + + + +---------+ + + + + | Result panel 182 | + + + + + + +---------+ + + | (unknown) | (no date) | (unknown) | [facility] | (no | (units | (unknown) | | | | | [facility] | value) | unknown) | | | | [facility] | | | | + + + + +---------+ + + + + | Result panel 183 | + + + + + + +---------+ + + | (unknown) | (no date) | (unknown) | [facility] | (no | (units | (unknown) | | | | | [facility] | value) | unknown) | | [facility] | [facility] | | | | + + + + +---------+ + + + + | Result panel 184 | + + + + + + +---------+ + + | (unknown) | (no date) | (unknown) | [facility] | (no | (units | (unknown) | | | | | [facility] | value) | unknown) | | | | [facility] | | | | + + + + +---------+ + + + + | Result panel 185 | + + + + + + +---------+ + + | (unknown) | (no date) | (unknown) | [facility] | (no | (units | (unknown) | | | | | [facility] | value) | unknown) | | | | [facility] | | | | + + + + +---------+ + + + + | Result panel 186 | + + + + + + +---------+ + + | (unknown) | (no date) | (unknown) | [facility] | (no | (units | (unknown) | | | | | [facility] | value) | unknown) | [facility] | | [facility] | | | | + + + + +---------+ + + + + | Result panel 187 | + + + + + + +---------+ + + | (unknown) | (no date) | (unknown) | [facility] | (no | (units | (unknown) | | | | | [facility] | value) | unknown) | | | | | [facility] | | | | + + + + +---------+ + + + + | Result panel 188 | + + + + + + +---------+ + + | (unknown) | (no date) | (unknown) | [facility] | (no | (units | (unknown) | | | | | [facility] | value) | unknown) | | | | | [facility] | | | | + + + + +---------+ + + + + | Result panel 189 | + + + + + + +---------+ + + | (unknown) | (no date) | (unknown) | [facility] | (no | (units | (unknown) | | | | | [facility] | value) | unknown) | | | | | [facility] | | | | + + + + +---------+ + + + + | Result panel 190 | + + + + + + +---------+ + + | (unknown) | (no date) | (unknown) | [facility] | (no | (units | (unknown) | | | | | [facility] | value) | unknown) | | | | [facility] | | | | + + + + +---------+ + + + + | Result panel 191 | + + + + + + +---------+ + + | (unknown) | (no date) | (unknown) | [facility] | (no | (units | (unknown) | | | | | [facility] | value) | unknown) | | | | | [facility] | | | | + + + + +---------+ + + + + | Result panel 192 | + + + + + + +---------+ + + | (unknown) | (no date) | (unknown) | [facility] | (no | (units | (unknown) | | | | | [facility] | value) | unknown) | | | | [facility] | | | | + + + + +---------+ + + + + | Result panel 193 | + + + + + + +---------+ + + | (unknown) | (no date) | (unknown) | [facility] | (no | (units | (unknown) | | | | | [facility] | value) | unknown) | | | | | [facility] | | | | + + + + +---------+ + + + + | Result panel 194 | + + + + + + +---------+ + + | (unknown) | (no date) | (unknown) | [facility] | (no | (units | (unknown) | | | | | [facility] | value) | unknown) | | | | | [facility] | | | | + + + + +---------+ + + + + | Result panel 195 | + + + + + + +---------+ + + | (unknown) | (no date) | (unknown) | [facility] | (no | (units | (unknown) | | | | | [facility] | value) | unknown) | [facility] | | | [facility] | | | | + + + + +---------+ + + + + | Result panel 196 | + + + + + + +---------+ + + | (unknown) | (no date) | (unknown) | [facility] | (no | (units | (unknown) | | | | | [facility] | value) | unknown) | | [facility] | [facility] | | | | + + + + +---------+ + + + + | Result panel 197 | + + + + + + +---------+ + + | (unknown) | (no date) | (unknown) | [facility] | (no | (units | (unknown) | | | | [facility] | value) | unknown) | | [facility] | [facility] | | | | + + + + +---------+ + + + + | Result panel 198 | + + + + + + +---------+ + + | (unknown) | (no date) | (unknown) | [facility] | (no | (units | (unknown) | | | | [facility] | value) | unknown) | | | | | [facility] | | | | + + + + +---------+ + + + + | Result panel 199 | + + + + + + +---------+ + + | (unknown) | (no date) | (unknown) | [facility] | (no | (units | (unknown) | | | | | [facility] | value) | unknown) | [facility] | | [facility] | | | | + + + + +---------+ + + + + | Result panel 200 | + + + + + + +---------+ + + | (unknown) | (no date) | (unknown) | [facility] | (no | (units | (unknown) | | | | [facility] | value) | unknown) | | | | | [facility] | | | | + + + + +---------+ + + + + | Result panel 201 | + + + + + + +---------+ + + | (unknown) | (no date) | (unknown) | [facility] | (no | (units | (unknown) | | | | | [facility] | value) | unknown) | | | | | [facility] | | | | + + + + +---------+ + + + + | Result panel 202 | + + + + + + +---------+ + + | (unknown) | (no date) | (unknown) | [facility] | (no | (units | (unknown) | | | | | [facility] | value) | unknown) | [facility] | [facility] | | | | + + + + +---------+ + + + + | Result panel 203 | + + + + + + +---------+ + + | (unknown) | (no date) | (unknown) | [facility] | (no | (units | (unknown) | | | | [facility] | value) | unknown) | | | | | [facility] | | | | + + + + +---------+ + + + + | Result panel 204 | + + + + + + +---------+ + + | (unknown) | (no date) | (unknown) | [facility] | (no | (units | (unknown) | | | | [facility] | value) | unknown) | | | | | [facility] | | | | + + + + +---------+ + + + + | Result panel 205 | + + + + + + +---------+ + + | (unknown) | (no date) | (unknown) | [facility] | (no | (units | (unknown) | | | | [facility] | value) | unknown) | | | | | [facility] | | | | + + + + +---------+ + + + + | Result panel 206 | + + + + + + +---------+ + + | (unknown) | (no date) | (unknown) | [facility] | (no | (units | (unknown) | | | | [facility] | value) | unknown) | | | | | [facility] | | | | + + + + +---------+ + + + + | Result panel 207 | + + + + + + +---------+ + + | (unknown) | (no date) | (unknown) | [facility] | (no | (units | (unknown) | | | | [facility] | value) | unknown) | | | | | [facility] | | | | + + + + +---------+ + + + + | Result panel 208 | + + + + + + +---------+ + + | (unknown) | (no date) | (unknown) | [facility] | (no | (units | (unknown) | | | | | [facility] | value) | unknown) | | | | [facility] | | | | + + + + +---------+ + + + + | Result panel 209 | + + + + + + +---------+ + + | (unknown) | (no date) | (unknown) | [facility] | (no | (units | (unknown) | | | | | [facility] | value) | unknown) | | | | [facility] | | | | + + + + +---------+ + + + + | Result panel 210 | + + + + + + +---------+ + + | (unknown) | (no date) | (unknown) | [facility] | (no | (units | (unknown) | | | | | [facility] | value) | unknown) | | | | [facility] | | | | + + + + +---------+ + + + + | Result panel 211 | + + + + + + +---------+ + + | (unknown) | (no date) | (unknown) | [facility] | (no | (units | (unknown) | | | | | [facility] | value) | unknown) | | [facility] | [facility] | | | | + + + + +---------+ + + + + | Result panel 212 | + + + + + + +---------+ + + | (unknown) | (no date) | (unknown) | [facility] | (no | (units | (unknown) | | | | [facility] | value) | unknown) | | | | [facility] | | | | + + + + +---------+ + + + + | Result panel 213 | + + + + + + +---------+ + + | (unknown) | (no date) | (unknown) | [facility] | (no | (units | (unknown) | | | | [facility] | value) | unknown) | | | | [facility] | | | | + + + + +---------+ + + + + | Result panel 214 | + + + + + + +---------+ + + | (unknown) | (no date) | (unknown) | [facility] | (no | (units | (unknown) | | | | [facility] | value) | unknown) | | | | [facility] | | | | + + + + +---------+ + + + + | Result panel 215 | + + + + + + +---------+ + + | (unknown) | (no date) | (unknown) | [facility] | (no | (units | (unknown) | | | | [facility] | value) | unknown) | | | | [facility] | | | | + + + + +---------+ + + + + | Result panel 216 | + + + + + + +---------+ + + | (unknown) | (no date) | (unknown) | [facility] | (no | (units | (unknown) | | | | | [facility] | value) | unknown) | | | | | | [facility] | | | | + + + + +---------+ + + + + | Result panel 217 | + + + + + + +---------+ + + | (unknown) | (no date) | (unknown) | [facility] | (no | (units | (unknown) | | | | | [facility] | value) | unknown) | | | | | | [facility] | | | | + + + + +---------+ + + + + | Result panel 218 | + + + + + + +---------+ + + | (unknown) | (no date) | (unknown) | [facility] | (no | (units | (unknown) | | | | | [facility] | value) | unknown) | | | | | | [facility] | | | | + + + + +---------+ + + + + | Result panel 219 | + + + + + + +---------+ + + | (unknown) | (no date) | (unknown) | [facility] | (no | (units | (unknown) | | | | | [facility] | value) | unknown) | | | | | | [facility] | | | | + + + + +---------+ + + + + | Result panel 220 | + + + + + + +---------+ + + | (unknown) | (no date) | (unknown) | [facility] | (no | (units | (unknown) | | | | | [facility] | value) | unknown) | | | | | | [facility] | | | | + + + + +---------+ + + + + | Result panel 221 | + + + + + + +---------+ + + | (unknown) | (no date) | (unknown) | [facility] | (no | (units | (unknown) | | | | | [facility] | value) | unknown) | | | | | | [facility] | | | | + + + + +---------+ + + + + | Result panel 222 | + + + + + + +---------+ + + | (unknown) | (no date) | (unknown) | [facility] | (no | (units | (unknown) | | | | | [facility] | value) | unknown) | | | | | | [facility] | | | | + + + + +---------+ + + + + | Result panel 223 | + + + + + + +---------+ + + | (unknown) | (no date) | (unknown) | [facility] | (no | (units | (unknown) | | | | | [facility] | value) | unknown) | | | | | | [facility] | | | | + + + + +---------+ + + + + | Result panel 224 | + + + + + + +---------+ + + | (unknown) | (no date) | (unknown) | [facility] | (no | (units | (unknown) | | | | | [facility] | value) | unknown) | | | | | | [facility] | | | | + + + + +---------+ + + + + | Result panel 225 | + + + + + + +---------+ + + | (unknown) | (no date) | (unknown) | [facility] | (no | (units | (unknown) | | | | | [facility] | value) | unknown) | | | | | | [facility] | | | | + + + + +---------+ + + + + | Result panel 226 | + + + + + + +---------+ + + | (unknown) | (no date) | (unknown) | [facility] | (no | (units | (unknown) | | | | | [facility] | value) | unknown) | | | | | | [facility] | | | | + + + + +---------+ + + + + | Result panel 227 | + + + + + + +---------+ + + | (unknown) | (no date) | (unknown) | [facility] | (no | (units | (unknown) | | | | [facility] | value) | unknown) | | | | | [facility] | | | | + + + + +---------+ + + + + | Result panel 228 | + + + + + + +---------+ + + | (unknown) | (no date) | (unknown) | [facility] | (no | (units | (unknown) | | | | | [facility] | value) | unknown) | | | | | [facility] | | | | + + + + +---------+ + + + + | Result panel 229 | + + + + + + +---------+ + + | (unknown) | (no date) | (unknown) | [facility] | (no | (units | (unknown) | | | | | [facility] | value) | unknown) | | | | | [facility] | | | | + + + + +---------+ + + + + | Result panel 230 | + + + + + + +---------+ + + | (unknown) | (no date) | (unknown) | [facility] | (no | (units | (unknown) | | | | | [facility] | value) | unknown) | | | | | [facility] | | | | + + + + +---------+ + + + + | Result panel 231 | + + + + + + +---------+ + + | (unknown) | (no date) | (unknown) | [facility] | (no | (units | (unknown) | | | | | [facility] | value) | unknown) | | | | | [facility] | | | | + + + + +---------+ + + + + | Result panel 232 | + + + + + + +---------+ + + | (unknown) | (no date) | (unknown) | [facility] | (no | (units | (unknown) | | | | | [facility] | value) | unknown) | | | | | [facility] | | | | + + + + +---------+ + + + + | Result panel 233 | + + + + + + +---------+ + + | (unknown) | (no date) | (unknown) | [facility] | (no | (units | (unknown) | | | | | [facility] | value) | unknown) | | | | | [facility] | | | | + + + + +---------+ + + + + | Result panel 234 | + + + + + + +---------+ + + | (unknown) | (no date) | (unknown) | [facility] | (no | (units | (unknown) | | | | | [facility] | value) | unknown) | | | | | [facility] | | | | + + + + +---------+ + + + + | Result panel 235 | + + + + + + +---------+ + + | (unknown) | (no date) | (unknown) | [facility] | (no | (units | (unknown) | | | | | [facility] | value) | unknown) | | | | | [facility] | | | | + + + + +---------+ + + + + | Result panel 236 | + + + + + + +---------+ + + | (unknown) | (no date) | (unknown) | [facility] | (no | (units | (unknown) | | | | | [facility] | value) | unknown) | | | | | [facility] | | | | + + + + +---------+ + + + + | Result panel 237 | + + + + + + +---------+ + + | (unknown) | (no date) | (unknown) | [facility] | (no | (units | (unknown) | | | | | [facility] | value) | unknown) | | | | | [facility] | | | | + + + + +---------+ + + + + | Result panel 238 | + + + + + + +---------+ + + | (unknown) | (no date) | (unknown) | [facility] | (no | (units | (unknown) | | | | | [facility] | value) | unknown) | | | | | [facility] | | | | + + + + +---------+ + + + + | Result panel 239 | + + + + + + +---------+ + + | (unknown) | (no date) | (unknown) | [facility] | (no | (units | (unknown) | | | | | [facility] | value) | unknown) | | | | | [facility] | | | | + + + + +---------+ + + + + | Result panel 240 | + + + + + + +---------+ + + | (unknown) | (no date) | (unknown) | [facility] | (no | (units | (unknown) | | | | | [facility] | value) | unknown) | | | | | [facility] | | | | + + + + +---------+ + + + + | Result panel 241 | + + + + + + +---------+ + + | (unknown) | (no date) | (unknown) | [facility] | (no | (units | (unknown) | | | | | [facility] | value) | unknown) | | | | | [facility] | | | | + + + + +---------+ + + + + | Result panel 242 | + + + + + + +---------+ + + | (unknown) | (no date) | (unknown) | [facility] | (no | (units | (unknown) | | | | | [facility] | value) | unknown) | | | | | [facility] | | | | + + + + +---------+ + + + + | Result panel 243 | + + + + + + +---------+ + + | (unknown) | (no date) | (unknown) | [facility] | (no | (units | (unknown) | | | | | [facility] | value) | unknown) | | | | | [facility] | | | | + + + + +---------+ + + + + | Result panel 244 | + + + + + + +---------+ + + | (unknown) | (no date) | (unknown) | [facility] | (no | (units | (unknown) | | | | | [facility] | value) | unknown) | | | | | [facility] | | | | + + + + +---------+ + + + + | Result panel 245 | + + + + + + +---------+ + + | (unknown) | (no date) | (unknown) | [facility] | (no | (units | (unknown) | | | | | [facility] | value) | unknown) | | | | [facility] | | | | + + + + +---------+ + + + + | Result panel 246 | + + + + + + +---------+ + + | (unknown) | (no date) | (unknown) | [facility] | (no | (units | (unknown) | | | | | [facility] | value) | unknown) | | | | | [facility] | | | | + + + + +---------+ + + + + | Result panel 247 | + + + + + + +---------+ + + | (unknown) | (no date) | (unknown) | [facility] | (no | (units | (unknown) | | | | | [facility] | value) | unknown) | | | | | [facility] | | | | + + + + +---------+ + + + + | Result panel 248 | + + + + + + +---------+ + + | (unknown) | (no date) | (unknown) | [facility] | (no | (units | (unknown) | | | | | [facility] | value) | unknown) | | | | [facility] | | | | + + + + +---------+ + + + + | Result panel 249 | + + + + + + +---------+ + + | (unknown) | (no date) | (unknown) | [facility] | (no | (units | (unknown) | | | | | [facility] | value) | unknown) | [facility] | | | [facility] | | | | + + + + +---------+ + + + + | Result panel 250 | + + + + + + +---------+ + + | (unknown) | (no date) | (unknown) | [facility] | (no | (units | (unknown) | | | | | [facility] | value) | unknown) | [facility] | [facility] | | | | + + + + +---------+ + + + + | Result panel 251 | + + + + + + +---------+ + + | (unknown) | (no date) | (unknown) | [facility] | (no | (units | (unknown) | | | | | [facility] | value) | unknown) | | | | [facility] | | | | + + + + +---------+ + + + + | Result panel 252 | + + + + + + +---------+ + + | (unknown) | (no date) | (unknown) | [facility] | (no | (units | (unknown) | | | | | [facility] | value) | unknown) | | | | | [facility] | | | | + + + + +---------+ + + + + | Result panel 253 | + + + + + + +---------+ + + | (unknown) | (no date) | (unknown) | [facility] | (no | (units | (unknown) | | | | | [facility] | value) | unknown) | [facility] | | [facility] | | | | + + + + +---------+ + + + + | Result panel 254 | + + + + + + +---------+ + + | (unknown) | (no date) | (unknown) | [facility] | (no | (units | (unknown) | | | | | [facility] | value) | unknown) | | | | | [facility] | | | | + + + + +---------+ + + + + | Result panel 255 | + + + + + + +---------+ + + | (unknown) | (no date) | (unknown) | [facility] | (no | (units | (unknown) | | | | | [facility] | value) | unknown) | | | | | [facility] | | | | + + + + +---------+ + + + + | Result panel 256 | + + + + + + +---------+ + + | (unknown) | (no date) | (unknown) | [facility] | (no | (units | (unknown) | | | | | [facility] | value) | unknown) | | | | | [facility] | | | | + + + + +---------+ + + + + | Result panel 257 | + + + + + + +---------+ + + | (unknown) | (no date) | (unknown) | [facility] | (no | (units | (unknown) | | | | | [facility] | value) | unknown) | | | | | [facility] | | | | + + + + +---------+ + + + + | Result panel 258 | + + + + + + +---------+ + + | (unknown) | (no date) | (unknown) | [facility] | (no | (units | (unknown) | | | | | [facility] | value) | unknown) | | | | | [facility] | | | | + + + + +---------+ + + + + | Result panel 259 | + + + + + + +---------+ + + | (unknown) | (no date) | (unknown) | [facility] | (no | (units | (unknown) | | | | | [facility] | value) | unknown) | | | | | [facility] | | | | + + + + +---------+ + + + + | Result panel 260 | + + + + + + +---------+ + + | (unknown) | (no date) | (unknown) | [facility] | (no | (units | (unknown) | | | | | [facility] | value) | unknown) | | | | | [facility] | | | | + + + + +---------+ + + + + | Result panel 261 | + + + + + + +---------+ + + | (unknown) | (no date) | (unknown) | [facility] | (no | (units | (unknown) | | | | | [facility] | value) | unknown) | | | | | [facility] | | | | + + + + +---------+ + + + + | Result panel 262 | + + + + + + +---------+ + + | (unknown) | (no date) | (unknown) | [facility] | (no | (units | (unknown) | | | | | [facility] | value) | unknown) | [facility] | | [facility] | | | | + + + + +---------+ + + + + | Result panel 263 | + + + + + + +---------+ + + | (unknown) | (no date) | (unknown) | [facility] | (no | (units | (unknown) | | | | | [facility] | value) | unknown) | | | | | [facility] | | | | + + + + +---------+ + + + + | Result panel 264 | + + + + + + +---------+ + + | (unknown) | (no date) | (unknown) | [facility] | (no | (units | (unknown) | | | | | [facility] | value) | unknown) | [facility] | [facility] | | | | + + + + +---------+ + + + + | Result panel 265 | + + + + + + +---------+ + + | (unknown) | (no date) | (unknown) | [facility] | (no | (units | (unknown) | | | | | [facility] | value) | unknown) | [facility] | [facility] | | | | + + + + +---------+ + + + + | Result panel 266 | + + + + + + +---------+ + + | (unknown) | (no date) | (unknown) | [facility] | (no | (units | (unknown) | | | | | [facility] | value) | unknown) | | | | | [facility] | | | | + + + + +---------+ + + + + | Result panel 267 | + + + + + + +---------+ + + | (unknown) | (no date) | (unknown) | [facility] | (no | (units | (unknown) | | | | | [facility] | value) | unknown) | | | | [facility] | | | | + + + + +---------+ + + + + | Result panel 268 | + + + + + + +---------+ + + | (unknown) | (no date) | (unknown) | [facility] | (no | (units | (unknown) | | | | | [facility] | value) | unknown) | | | | | [facility] | | | | + + + + +---------+ + + + + | Result panel 269 | + + + + + + +---------+ + + | (unknown) | (no date) | (unknown) | [facility] | (no | (units | (unknown) | | | | | [facility] | value) | unknown) | | | | | [facility] | | | | + + + + +---------+ + + + + | Result panel 270 | + + + + + + +---------+ + + | (unknown) | (no date) | (unknown) | [facility] | (no | (units | (unknown) | | | | | [facility] | value) | unknown) | | | | [facility] | | | | + + + + +---------+ + + + + | Result panel 271 | + + + + + + +---------+ + + | (unknown) | (no date) | (unknown) | [facility] | (no | (units | (unknown) | | | | | [facility] | value) | unknown) | | | | [facility] | | | | + + + + +---------+ + + + + | Result panel 272 | + + + + + + +---------+ + + | (unknown) | (no date) | (unknown) | [facility] | (no | (units | (unknown) | | | | | [facility] | value) | unknown) | | | | [facility] | | | | + + + + +---------+ + + + + | Result panel 273 | + + + + + + +---------+ + + | (unknown) | (no date) | (unknown) | [facility] | (no | (units | (unknown) | | | | | [facility] | value) | unknown) | | | | [facility] | | | | + + + + +---------+ + + + + | Result panel 274 | + + + + + + +---------+ + + | (unknown) | (no date) | (unknown) | [facility] | (no | (units | (unknown) | | | | | [facility] | value) | unknown) | | | | [facility] | | | | + + + + +---------+ + + + + | Result panel 275 | + + + + + + +---------+ + + | (unknown) | (no date) | (unknown) | [facility] | (no | (units | (unknown) | | | | | [facility] | value) | unknown) | | [facility] | [facility] | | | | + + + + +---------+ + + + + | Result panel 276 | + + + + + + +---------+ + + | (unknown) | (no date) | (unknown) | [facility] | (no | (units | (unknown) | | | | | [facility] | value) | unknown) | | | | [facility] | | | | + + + + +---------+ + + + + | Result panel 277 | + + + + + + +---------+ + + | (unknown) | (no date) | (unknown) | [facility] | (no | (units | (unknown) | | | | | [facility] | value) | unknown) | | | | [facility] | | | | + + + + +---------+ + + + + | Result panel 278 | + + + + + + +---------+ + + | (unknown) | (no date) | (unknown) | [facility] | (no | (units | (unknown) | | | | | [facility] | value) | unknown) | | | | [facility] | | | | + + + + +---------+ + + + + | Result panel 279 | + + + + + + +---------+ + + | (unknown) | (no date) | (unknown) | [facility] | (no | (units | (unknown) | | | | | [facility] | value) | unknown) | | | | [facility] | | | | + + + + +---------+ + + + + | Result panel 280 | + + + + + + +---------+ + + | (unknown) | (no date) | (unknown) | [facility] | (no | (units | (unknown) | | | | | [facility] | value) | unknown) | | | | [facility] | | | | + + + + +---------+ + + + + | Result panel 281 | + + + + + + +---------+ + + | (unknown) | (no date) | (unknown) | [facility] | (no | (units | (unknown) | | | | | [facility] | value) | unknown) | | | | [facility] | | | | + + + + +---------+ + + + + | Result panel 282 | + + + + + + +---------+ + + | (unknown) | (no date) | (unknown) | [facility] | (no | (units | (unknown) | | | | | [facility] | value) | unknown) | | | | | [facility] | | | | + + + + +---------+ + + + + | Result panel 283 | + + + + + + +---------+ + + | (unknown) | (no date) | (unknown) | [facility] | (no | (units | (unknown) | | | | | [facility] | value) | unknown) | | | | | [facility] | | | | + + + + +---------+ + + + + | Result panel 284 | + + + + + + +---------+ + + | (unknown) | (no date) | (unknown) | [facility] | (no | (units | (unknown) | | | | | [facility] | value) | unknown) | | | | [facility] | | | | + + + + +---------+ + + + + | Result panel 285 | + + + + + + +---------+ + + | (unknown) | (no date) | (unknown) | [facility] | (no | (units | (unknown) | | | | [facility] value) | unknown) | | | | [facility] | | | | + + + + +---------+ + + Social History No information. Vital Signs + + + +---------+ | date | measurement | value | units | + + + +---------+ | 2021-09-29 00:00 | BMI | 36.1 | kg/m2 | + + + +---------+ | 2021-09-29 00:00 | BP_diastolic | 77 | mmHg | + + + +---------+ | 2021-09-29 00:00 | BP_systolic | 121 | mmHg | + + + +---------+ | 2021-09-29 00:00 | heart_rate | 102 | /min | + + + +---------+ | 2021-09-29 00:00 | height_metric | 165.1 | cm | + + + +---------+ | 2021-09-29 00:00 | height_standard | 65 | in | + + + +---------+ | 2021-09-29 00:00 | o2_saturation | 100 | % | + + + +---------+ | 2021-09-29 00:00 | respiration_rate | 16 | /min | + + + +---------+ | 2021-09-29 00:00 | temperature_metric | 36.78 | C | | | | | | + + + +---------+ | 2021-09-29 00:00 | | 98.2 | F | | | temperature_standar | | | | | d | | | + + + +---------+ | 2021-09-29 00:00 | weight_metric | 98.34 | kg | + + + +---------+ | 2021-09-29 00:00 | weight_standard | 216.8 | lb | + + + +---------+ | 2021-09-29 00:00 | weight_standard | 216.81 | lb | + + + +---------+ | 2021-11-02 00:00 | BMI | 36.1 | kg/m2 | + + + +---------+ | 2021-11-02 00:00 | BP_diastolic | 68 | mmHg | + + + +---------+ | 2021-11-02 00:00 | BP_systolic | 99 | mmHg | + + + +---------+ | 2021-11-02 00:00 | heart_rate | 90 | /min | + + + +---------+ | 2021-11-02 00:00 | height_metric | 165.1 | cm | + + + +---------+ | 2021-11-02 00:00 | height_standard | 65 | in | + + + +---------+ | 2021-11-02 00:00 | o2_saturation | 99 | % | + + + +---------+ | 2021-11-02 00:00 | respiration_rate | 16 | /min | + + + +---------+ | 2021-11-02 00:00 | temperature_metric | 36.94 | C | | | | | | + + + +---------+ | 2021-11-02 00:00 | | 98.5 | F | | | temperature_standar | | | | | d | | | + + + +---------+ | 2021-11-02 00:00 | weight_metric | 98.34 | kg | + + + +---------+ | 2021-11-02 00:00 | weight_standard | 216.8 | lb | + + + +---------+ | 2021-11-02 00:00 | weight_standard | 216.81 | lb | + + + +---------+ | 2021-11-14 00:00 | BMI | 32.6 | kg/m2 | + + + +---------+ | 2021-11-14 00:00 | BP_diastolic | 86 | mmHg | + + + +---------+ | 2021-11-14 00:00 | BP_systolic | 127 | mmHg | + + + +---------+ | 2021-11-14 00:00 | heart_rate | 76 | /min | + + + +---------+ | 2021-11-14 00:00 | height_metric | 165.1 | cm | + + + +---------+ | 2021-11-14 00:00 | height_standard | 65 | in | + + + +---------+ | 2021-11-14 00:00 | o2_saturation | 100 | % | + + + +---------+ | 2021-11-14 00:00 | respiration_rate | 20 | /min | + + + +---------+ | 2021-11-14 00:00 | temperature_metric | 36.89 | C | | | | | | + + + +---------+ | 2021-11-14 00:00 | | 98.4 | F | | | temperature_standar | | | | | d | | | + + + +---------+ | 2021-11-14 00:00 | weight_metric | 88.9 | kg | + + + +---------+ | 2021-11-14 00:00 | weight_standard | 196 | lb | + + + +---------+ | 2021-11-15 00:00 | BMI | 32.8 | kg/m2 | + + + +---------+ | 2021-11-15 00:00 | BP_diastolic | 86 | mmHg | + + + +---------+ | 2021-11-15 00:00 | BP_systolic | 147 | mmHg | + + + +---------+ | 2021-11-15 00:00 | heart_rate | 78 | /min | + + + +---------+ | 2021-11-15 00:00 | height_metric | 165.1 | cm | + + + +---------+ | 2021-11-15 00:00 | height_standard | 65 | in | + + + +---------+ | 2021-11-15 00:00 | o2_saturation | 98 | % | + + + +---------+ | 2021-11-15 00:00 | respiration_rate | 15 | /min | + + + +---------+ | 2021-11-15 00:00 | temperature_metric | 36.61 | C | | | | | | + + + +---------+ | 2021-11-15 00:00 | | 97.9 | F | | | temperature_standar | | | | | d | | | + + + +---------+ | 2021-11-15 00:00 | weight_metric | 89.27 | kg | + + + +---------+ | 2021-11-15 00:00 | weight_standard | 196.81 | lb | + + + +---------+ | 2022-02-11 00:00 | BMI | 32.8 | kg/m2 | + + + +---------+ | 2022-02-11 00:00 | BP_diastolic | 67 | mmHg | + + + +---------+ | 2022-02-11 00:00 | BP_systolic | 105 | mmHg | + + + +---------+ | 2022-02-11 00:00 | heart_rate | 97 | /min | + + + +---------+ | 2022-02-11 00:00 | height_metric | 165.1 | cm | + + + +---------+ | 2022-02-11 00:00 | height_standard | 65 | in | + + + +---------+ | 2022-02-11 00:00 | o2_saturation | 98 | % | + + + +---------+ | 2022-02-11 00:00 | respiration_rate | 16 | /min | + + + +---------+ | 2022-02-11 00:00 | temperature_metric | 36.72 | C | | | | | | + + + +---------+ | 2022-02-11 00:00 | | 98.1 | F | | | temperature_standar | | | | | d | | | + + + +---------+ | 2022-02-11 00:00 | weight_metric | 89.27 | kg | + + + +---------+ | 2022-02-11 00:00 | weight_standard | 196.81 | lb | + + + +---------+ | 2022-02-24 00:00 | BMI | 32.8 | kg/m2 | + + + +---------+ | 2022-02-24 00:00 | height_metric | 165.1 | cm | + + + +---------+ | 2022-02-24 00:00 | height_standard | 65 | in | + + + +---------+ | 2022-02-24 00:00 | weight_metric | 89.27 | kg | + + + +---------+ | 2022-02-24 00:00 | weight_standard | 196.81 | lb | + + + +---------+ | 2022-02-25 00:00 | BP_diastolic | 77 | mmHg | + + + +---------+ | 2022-02-25 00:00 | BP_systolic | 123 | mmHg | + + + +---------+ | 2022-02-25 00:00 | heart_rate | 75 | /min | + + + +---------+ | 2022-02-25 00:00 | o2_saturation | 99 | % | + + + +---------+ | 2022-02-25 00:00 | respiration_rate | 16 | /min | + + + +---------+ | 2022-02-25 00:00 | temperature_metric | 36.78 | C | | | | | | + + + +---------+ | 2022-02-25 00:00 | | 98.2 | F | | | temperature_standar | | | | | d | | | + + + +---------+ | 2022-03-27 00:00 | BMI | 32.8 | kg/m2 | + + + +---------+ | 2022-03-27 00:00 | BP_diastolic | 69 | mmHg | + + + +---------+ | 2022-03-27 00:00 | BP_systolic | 125 | mmHg | + + + +---------+ | 2022-03-27 00:00 | heart_rate | 84 | /min | + + + +---------+ | 2022-03-27 00:00 | height_metric | 165.1 | cm | + + + +---------+ | 2022-03-27 00:00 | height_standard | 65 | in | + + + +---------+ | 2022-03-27 00:00 | o2_saturation | 95 | % | + + + +---------+ | 2022-03-27 00:00 | respiration_rate | 16 | /min | + + + +---------+ | 2022-03-27 00:00 | temperature_metric | 37.06 | C | | | | | | + + + +---------+ | 2022-03-27 00:00 | | 98.7 | F | | | temperature_standar | | | | | d | | | + + + +---------+ | 2022-03-27 00:00 | weight_metric | 89.27 | kg | + + + +---------+ | 2022-03-27 00:00 | weight_standard | 196.81 | lb | + + + +---------+ | 2022-04-19 00:00 | BMI | 32.6 | kg/m2 | + + + +---------+ | 2022-04-19 00:00 | BP_diastolic | 75 | mmHg | + + + +---------+ | 2022-04-19 00:00 | BP_systolic | 112 | mmHg | + + + +---------+ | 2022-04-19 00:00 | heart_rate | 99 | /min | + + + +---------+ | 2022-04-19 00:00 | height_metric | 165.1 | cm | + + + +---------+ | 2022-04-19 00:00 | height_standard | 65 | in | + + + +---------+ | 2022-04-19 00:00 | o2_saturation | 97 | % | + + + +---------+ | 2022-04-19 00:00 | respiration_rate | 16 | /min | + + + +---------+ | 2022-04-19 00:00 | temperature_metric | 36.56 | C | | | | | | + + + +---------+ | 2022-04-19 00:00 | | 97.8 | F | | | temperature_standar | | | | | d | | | + + + +---------+ | 2022-04-19 00:00 | weight_metric | 88.82 | kg | + + + +---------+ | 2022-04-19 00:00 | weight_standard | 195.81 | lb | + + + +---------+ | 2022-04-20 00:00 | BMI | 31.7 | kg/m2 | + + + +---------+ | 2022-04-20 00:00 | BP_diastolic | 83 | mmHg | + + + +---------+ | 2022-04-20 00:00 | BP_systolic | 121 | mmHg | + + + +---------+ | 2022-04-20 00:00 | heart_rate | 86 | /min | + + + +---------+ | 2022-04-20 00:00 | height_metric | 165.1 | cm | + + + +---------+ | 2022-04-20 00:00 | height_standard | 65 | in | + + + +---------+ | 2022-04-20 00:00 | o2_saturation | 95 | % | + + + +---------+ | 2022-04-20 00:00 | respiration_rate | 18 | /min | + + + +---------+ | 2022-04-20 00:00 | temperature_metric | 37.06 | C | | | | | | + + + +---------+ | 2022-04-20 00:00 | | 98.7 | F | | | temperature_standar | | | | | d | | | + + + +---------+ | 2022-04-20 00:00 | weight_metric | 86.3 | kg | + + + +---------+ | 2022-04-20 00:00 | weight_standard | 190.26 | lb | + + + +---------+ | 2022-05-30 00:00 | BMI | 31.6 | kg/m2 | + + + +---------+ | 2022-05-30 00:00 | BP_diastolic | 73 | mmHg | + + + +---------+ | 2022-05-30 00:00 | BP_systolic | 116 | mmHg | + + + +---------+ | 2022-05-30 00:00 | heart_rate | 97 | /min | + + + +---------+ | 2022-05-30 00:00 | height_metric | 165.1 | cm | + + + +---------+ | 2022-05-30 00:00 | height_standard | 65 | in | + + + +---------+ | 2022-05-30 00:00 | o2_saturation | 95 | % | + + + +---------+ | 2022-05-30 00:00 | respiration_rate | 16 | /min | + + + +---------+ | 2022-05-30 00:00 | temperature_metric | 36.78 | C | | | | | | + + + +---------+ | 2022-05-30 00:00 | | 98.2 | F | | | temperature_standar | | | | | d | | | + + + +---------+ | 2022-05-30 00:00 | weight_metric | 86.18 | kg | + + + +---------+ | 2022-05-30 00:00 | weight_standard | 189.99 | lb | + + + +---------+ | 2022-05-30 00:00 | weight_standard | 190 | lb | + + + +---------+ | 2022-07-15 00:00 | BMI | 31.6 | kg/m2 | + + + +---------+ | 2022-07-15 00:00 | BP_diastolic | 99 | mmHg | + + + +---------+ | 2022-07-15 00:00 | BP_systolic | 134 | mmHg | + + + +---------+ | 2022-07-15 00:00 | heart_rate | 83 | /min | + + + +---------+ | 2022-07-15 00:00 | height_metric | 165.1 | cm | + + + +---------+ | 2022-07-15 00:00 | height_standard | 65 | in | + + + +---------+ | 2022-07-15 00:00 | o2_saturation | 99 | % | + + + +---------+ | 2022-07-15 00:00 | respiration_rate | 16 | /min | + + + +---------+ | 2022-07-15 00:00 | temperature_metric | 36.67 | C | | | | | | + + + +---------+ | 2022-07-15 00:00 | | 98 | F | | | temperature_standar | | | | | d | | | + + + +---------+ | 2022-07-15 00:00 | weight_metric | 86.18 | kg | + + + +---------+ | 2022-07-15 00:00 | weight_standard | 189.99 | lb | + + + +---------+ | 2022-07-15 00:00 | weight_standard | 190 | lb | + + + +---------+ | 2022-10-11 00:00 | BMI | 34.4 | kg/m2 | + + + +---------+ | 2022-10-11 00:00 | height_metric | 165.1 | cm | + + + +---------+ | 2022-10-11 00:00 | height_standard | 65 | in | + + + +---------+ | 2022-10-11 00:00 | weight_metric | 93.7 | kg | + + + +---------+ | 2022-10-11 00:00 | weight_standard | 206.57 | lb | + + + +---------+ | 2022-10-15 00:00 | BP_diastolic | 62 | mmHg | + + + +---------+ | 2022-10-15 00:00 | BP_systolic | 122 | mmHg | + + + +---------+ | 2022-10-15 00:00 | heart_rate | 95 | /min | + + + +---------+ | 2022-10-15 00:00 | o2_saturation | 99 | % | + + + +---------+ | 2022-10-15 00:00 | respiration_rate | 18 | /min | + + + +---------+ | 2022-10-15 00:00 | temperature_metric | 36.61 | C | | | | | | + + + +---------+ | 2022-10-15 00:00 | | 97.9 | F | | | temperature_standar | | | | | d | | | + + + +---------+ | 2023-01-06 00:00 | BMI | 35.8 | kg/m2 | + + + +---------+ | 2023-01-06 00:00 | BP_diastolic | 79 | mmHg | + + + +---------+ | 2023-01-06 00:00 | BP_systolic | 122 | mmHg | + + + +---------+ | 2023-01-06 00:00 | heart_rate | 88 | /min | + + + +---------+ | 2023-01-06 00:00 | height_metric | 165.1 | cm | + + + +---------+ | 2023-01-06 00:00 | height_standard | 65 | in | + + + +---------+ | 2023-01-06 00:00 | o2_saturation | 99 | % | + + + +---------+ | 2023-01-06 00:00 | respiration_rate | 18 | /min | + + + +---------+ | 2023-01-06 00:00 | temperature_metric | 36.67 | C | | | | | | + + + +---------+ | 2023-01-06 00:00 | | 98 | F | | | temperature_standar | | | | | d | | | + + + +---------+ | 2023-01-06 00:00 | weight_metric | 97.6 | kg | + + + +---------+ | 2023-01-06 00:00 | weight_standard | 215.17 | lb | + + + +---------+ | 2023-01-15 00:00 | BMI | 35.8 | kg/m2 | + + + +---------+ | 2023-01-15 00:00 | BP_diastolic | 89 | mmHg | + + + +---------+ | 2023-01-15 00:00 | BP_systolic | 146 | mmHg | + + + +---------+ | 2023-01-15 00:00 | heart_rate | 76 | /min | + + + +---------+ | 2023-01-15 00:00 | height_metric | 165.1 | cm | + + + +---------+ | 2023-01-15 00:00 | height_standard | 65 | in | + + + +---------+ | 2023-01-15 00:00 | o2_saturation | 98 | % | + + + +---------+ | 2023-01-15 00:00 | respiration_rate | 16 | /min | + + + +---------+ | 2023-01-15 00:00 | temperature_metric | 36.61 | C | | | | | | + + + +---------+ | 2023-01-15 00:00 | | 97.9 | F | | | temperature_standar | | | | | d | | | + + + +---------+ | 2023-01-15 00:00 | weight_metric | 97.52 | kg | + + + +---------+ | 2023-01-15 00:00 | weight_standard | 215 | lb | + + + +---------+ | 2023-01-16 00:00 | BMI | 35.8 | kg/m2 | + + + +---------+ | 2023-01-16 00:00 | BP_diastolic | 78 | mmHg | + + + +---------+ | 2023-01-16 00:00 | BP_systolic | 132 | mmHg | + + + +---------+ | 2023-01-16 00:00 | heart_rate | 87 | /min | + + + +---------+ | 2023-01-16 00:00 | height_metric | 165.1 | cm | + + + +---------+ | 2023-01-16 00:00 | height_standard | 65 | in | + + + +---------+ | 2023-01-16 00:00 | o2_saturation | 96 | % | + + + +---------+ | 2023-01-16 00:00 | respiration_rate | 19 | /min | + + + +---------+ | 2023-01-16 00:00 | temperature_metric | 36 | C | | | | | | + + + +---------+ | 2023-01-16 00:00 | | 96.8 | F | | | temperature_standar | | | | | d | | | + + + +---------+ | 2023-01-16 00:00 | weight_metric | 97.58 | kg | + + + +---------+ | 2023-01-16 00:00 | weight_standard | 215.13 | lb | + + + +---------+"
--- OUTSIDE RECORDS SUMMARY | ~2023-02-13 | XMS | Continuity of Care Document ---
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 | Phone | [...] | (no date) | Latex | [facility] | (unknown) | | | | [facility] | | + + + + + | (no date) | Latex | [facility] | (unknown) | | | | Hospital | | + + + + + | (no date) | latex | [facility] | (unknown) | | | | Hospital | | + + + + + | (no date) | Latex | [facility] | (unknown) | | | | Hospital | | + + + + + | (no date) | Morphine | [facility] | (unknown) | | | | Hospital | | + + + + + | (no date) | Lidocaine | [facility] | (unknown) | | | | Hospital | | + + + + + | (no date) | Anaphylaxis | [facility] | (unknown) | | | | Hospital | | + + + + + | (no date) | Itching | [facility] | (unknown) | | | | Hospital | | + + + + + | (no date) | Lidocaine | [facility] | (unknown) | | | | Hospital | | + + + + + | (no date) | lidocaine | [facility] | (unknown) | | | | Hospital | | + + + + + | (no date) | Morphine | [facility] | (unknown) | | | | Hospital | | + + + + + | (no date) | morphine | [facility] (unknown) | | | | Hospital | | + + + + + | (no date) | Morphine | [facility] | (unknown) | | | | Hospital | | + + + + + | (no date) | Lidocaine | [facility] | (unknown) | | | | Hospital | | + + + + + | (no date) | Latex | [facility] (unknown) | | | | Hospital | | + + + + + Encounters No information. Functional Status No information. Immunizations No information. Medications + + + + | date | description | facility | + + + + | 2017-10-08 00:00 | METHOCARBAMOL | [facility] | + + + + | 2017-10-08 00:00 | METHOCARBAMOL | [facility] | + + + + | 2017-10-08 00:00 | METHOCARBAMOL | [facility] | + + + + | 2017-10-08 00:00 | METHOCARBAMOL | [facility] | + + + + | 2017-10-08 00:00 | METHOCARBAMOL | [facility] | + + + + | 2017-10-08 00:00 | METHOCARBAMOL | [facility] | + + + + | 2017-10-08 00:00 | METHOCARBAMOL | [facility] | + + + + | 2019-01-18 00:00 | METHOCARBAMOL | [facility] | + + + + | 2019-01-18 00:00 | METHOCARBAMOL | [facility] | + + + + | 2019-01-18 00:00 | METHOCARBAMOL | [facility] | + + + + | 2019-01-18 00:00 | METHOCARBAMOL | [facility] | + + + + | 2019-01-18 00:00 | METHOCARBAMOL | [facility] | + + + + | 2019-01-18 00:00 | METHOCARBAMOL | [facility] | + + + + | 2019-01-18 00:00 | METHOCARBAMOL | [facility] | + + + + | 2022-02-17 00:00 | CETIRIZINE HCL | [facility] | + + + + | 2022-02-25 00:00 | CETIRIZINE HCL | [facility] | + + + + | 2022-03-31 00:00 | CETIRIZINE HCL | [facility] | + + + + | 2022-04-19 00:00 | CETIRIZINE HCL | [facility] | + + + + | 2022-04-20 00:00 | CETIRIZINE HCL | [facility] | + + + + | 2022-05-30 00:00 | CETIRIZINE HCL | [facility] | + + + + | 2022-07-16 00:00 | CETIRIZINE HCL | [facility] | + + + + | 2022-10-15 00:00 | CETIRIZINE HCL | [facility] | + + + + | 2023-01-06 00:00 | CETIRIZINE HCL | [facility] | + + + + | 2023-01-15 00:00 | CETIRIZINE HCL | [facility] | + + + + | 2023-01-16 00:00 | CETIRIZINE HCL | [facility] | + + + + | 2020-08-08 00:00 | FAMOTIDINE | [facility] | + + + + | 2020-08-08 00:00 | FAMOTIDINE | [facility] | + + + + | 2020-08-08 00:00 | FAMOTIDINE | [facility] | + + + + | 2020-08-08 00:00 | FAMOTIDINE | [facility] | + + + + | 2020-08-08 00:00 | FAMOTIDINE | [facility] | + + + + | 2020-08-08 00:00 | FAMOTIDINE | [facility] | + + + + | 2020-08-08 00:00 | FAMOTIDINE | [facility] | + + + + | 2020-11-02 00:00 | FAMOTIDINE | [facility] | + + + + | 2020-11-02 00:00 | FAMOTIDINE | [facility] | + + + + | 2020-11-02 00:00 | FAMOTIDINE | [facility] | + + + + | 2020-11-02 00:00 | FAMOTIDINE | [facility] | + + + + | 2020-11-02 00:00 | FAMOTIDINE | [facility] | + + + + | 2020-11-02 00:00 | FAMOTIDINE | [facility] | + + + + | 2020-11-02 00:00 | FAMOTIDINE | [facility] | + + + + | 2022-02-17 00:00 | LISINOPRIL | [facility] | + + + + | 2022-02-25 00:00 | LISINOPRIL | [facility] | + + + + | 2022-03-31 00:00 | LISINOPRIL | [facility] | + + + + | 2022-04-19 00:00 | LISINOPRIL | [facility] | + + + + | 2022-04-20 00:00 | LISINOPRIL | [facility] | + + + + | 2022-05-30 00:00 | LISINOPRIL | [facility] | + + + + | 2022-07-16 00:00 | LISINOPRIL | [facility] | + + + + | 2022-10-15 00:00 | LISINOPRIL | [facility] | + + + + | 2023-01-06 00:00 | LISINOPRIL | [facility] | + + + + | 2023-01-15 00:00 | LISINOPRIL | [facility] | + + + + | 2023-01-16 00:00 | LISINOPRIL | [facility] | + + + + | 2023-01-15 00:00 | LORAZEPAM | [facility] | + + + + | 2022-02-17 00:00 | ONDANSETRON HCL | [facility] | + + + + | 2022-02-25 00:00 | ONDANSETRON HCL | [facility] | + + + + | 2022-03-31 00:00 | ONDANSETRON HCL | [facility] | + + + + | 2022-04-19 00:00 | ONDANSETRON HCL | [facility] | + + + + | 2022-04-20 00:00 | ONDANSETRON HCL | [facility] | + + + + | 2022-05-30 00:00 | ONDANSETRON HCL | [facility] | + + + + | 2022-07-16 00:00 | ONDANSETRON HCL | [facility] | + + + + | 2022-10-15 00:00 | ONDANSETRON HCL | [facility] | + + + + | 2023-01-06 00:00 | ONDANSETRON HCL | [facility] | + + + + | 2023-01-15 00:00 | ONDANSETRON HCL | [facility] | + + + + | 2023-01-16 00:00 | ONDANSETRON HCL | [facility] | + + + + | 2022-02-17 00:00 | PSEUDOEPHEDRINE HCL | [facility] | + + + + | 2022-02-25 00:00 | PSEUDOEPHEDRINE HCL | [facility] | + + + + | 2022-03-31 00:00 | PSEUDOEPHEDRINE HCL | [facility] | + + + + | 2022-04-19 00:00 | PSEUDOEPHEDRINE HCL | [facility] | + + + + | 2022-04-20 00:00 | PSEUDOEPHEDRINE HCL | [facility] | + + + + | 2022-05-30 00:00 | PSEUDOEPHEDRINE HCL | [facility] | + + + + | 2022-07-16 00:00 | PSEUDOEPHEDRINE HCL | [facility] | + + + + | 2022-10-15 00:00 | PSEUDOEPHEDRINE HCL | [facility] | + + + + | 2023-01-06 00:00 | PSEUDOEPHEDRINE HCL | [facility] | + + + + | 2023-01-15 00:00 | PSEUDOEPHEDRINE HCL | [facility] | + + + + | 2023-01-16 00:00 | PSEUDOEPHEDRINE HCL | [facility] | + + + + | 2022-02-17 00:00 | PSEUDOEPHEDRINE HCL | [facility] | + + + + | 2022-02-25 00:00 | PSEUDOEPHEDRINE HCL | [facility] | + + + + | 2022-03-31 00:00 | PSEUDOEPHEDRINE HCL | [facility] | + + + + | 2022-04-19 00:00 | PSEUDOEPHEDRINE HCL | [facility] | + + + + | 2022-04-20 00:00 | PSEUDOEPHEDRINE HCL | [facility] | + + + + | 2022-05-30 00:00 | PSEUDOEPHEDRINE HCL | [facility] | + + + + | 2022-07-16 00:00 | PSEUDOEPHEDRINE HCL | [facility] | + + + + | 2022-10-15 00:00 | PSEUDOEPHEDRINE HCL | [facility] | + + + + | 2023-01-06 00:00 | PSEUDOEPHEDRINE HCL | [facility] | + + + + | 2023-01-15 00:00 | PSEUDOEPHEDRINE HCL | [facility] | + + + + | 2023-01-16 00:00 | PSEUDOEPHEDRINE HCL | [facility] | + + + + | 2022-02-17 00:00 | OXYCODONE | [facility] | | | HCL/ACETAMINOPHEN | | + + + + | 2022-02-25 00:00 | OXYCODONE | [facility] | | | HCL/ACETAMINOPHEN | | + + + + | 2022-03-31 00:00 | OXYCODONE | [facility] | | | HCL/ACETAMINOPHEN | | + + + + | 2022-04-19 00:00 | OXYCODONE | [facility] | | | HCL/ACETAMINOPHEN | | + + + + | 2022-04-20 00:00 | OXYCODONE | [facility] | | | HCL/ACETAMINOPHEN | | + + + + | 2022-05-30 00:00 | OXYCODONE | [facility] | | | HCL/ACETAMINOPHEN | | + + + + | 2022-07-16 00:00 | OXYCODONE | [facility] | | | HCL/ACETAMINOPHEN | | + + + + | 2022-10-15 00:00 | OXYCODONE | [facility] | | | HCL/ACETAMINOPHEN | | + + + + | 2023-01-06 00:00 | OXYCODONE | [facility] | | | HCL/ACETAMINOPHEN | | + + + + | 2023-01-15 00:00 | OXYCODONE | [facility] | | | HCL/ACETAMINOPHEN | | + + + + | 2023-01-16 00:00 | OXYCODONE | [facility] | | | HCL/ACETAMINOPHEN | | + + + + | 2018-07-07 00:00 | GABAPENTIN | [facility] | + + + + | 2018-07-07 00:00 | GABAPENTIN | [facility] | + + + + | 2018-07-07 00:00 | GABAPENTIN | [facility] | + + + + | 2018-07-07 00:00 | GABAPENTIN | [facility] | + + + + | 2018-07-07 00:00 | GABAPENTIN | [facility] | + + + + | 2018-07-07 00:00 | GABAPENTIN | [facility] | + + + + | 2018-07-07 00:00 | GABAPENTIN | [facility] | + + + + | 2022-02-17 00:00 | HYDROCORTISONE | [facility] | + + + + | 2022-02-25 00:00 | HYDROCORTISONE | [facility] | + + + + | 2022-03-31 00:00 | HYDROCORTISONE | [facility] | + + + + | 2022-04-19 00:00 | HYDROCORTISONE | [facility] | + + + + | 2022-04-20 00:00 | HYDROCORTISONE | [facility] | + + + + | 2022-02-17 00:00 | DIPHENHYDRAMINE HCL | [facility] | + + + + | 2022-02-25 00:00 | DIPHENHYDRAMINE HCL | [facility] | + + + + | 2022-03-31 00:00 | DIPHENHYDRAMINE HCL | [facility] | + + + + | 2022-04-19 00:00 | DIPHENHYDRAMINE HCL | [facility] | + + + + | 2022-04-20 00:00 | DIPHENHYDRAMINE HCL | [facility] | + + + + | 2022-05-30 00:00 | DIPHENHYDRAMINE HCL | [facility] | + + + + | 2022-07-16 00:00 | DIPHENHYDRAMINE HCL | [facility] | + + + + | 2022-10-15 00:00 | DIPHENHYDRAMINE HCL | [facility] | + + + + | 2023-01-06 00:00 | DIPHENHYDRAMINE HCL | [facility] | + + + + | 2023-01-15 00:00 | DIPHENHYDRAMINE HCL | [facility] | + + + + | 2023-01-16 00:00 | DIPHENHYDRAMINE HCL | [facility] | + + + + | 2021-09-29 00:00 | DIPHENHYDRAMINE HCL/ZINC | [facility] | | | ACET | | + + + + | 2021-09-29 00:00 | DIPHENHYDRAMINE HCL/ZINC | [facility] | | | ACET | | + + + + | 2022-02-17 00:00 | PSYLLIUM HUSK (WITH SUGAR) | [facility] | | | | | + + + + | 2022-02-25 00:00 | PSYLLIUM HUSK (WITH SUGAR) | [facility] | | | | | + + + + | 2022-03-31 00:00 | PSYLLIUM HUSK (WITH SUGAR) | [facility] | | | | | + + + + | 2022-04-19 00:00 | PSYLLIUM HUSK (WITH SUGAR) | [facility] | | | | | + + + + | 2022-04-20 00:00 | PSYLLIUM HUSK (WITH SUGAR) | [facility] | | | | | + + + + | 2022-05-30 00:00 | PSYLLIUM HUSK (WITH SUGAR) | [facility] | | | | | + + + + | 2022-07-16 00:00 | PSYLLIUM HUSK (WITH SUGAR) | [facility] | | | | | + + + + | 2022-10-15 00:00 | PSYLLIUM HUSK (WITH SUGAR) | [facility] | | | | | + + + + | 2023-01-06 00:00 | PSYLLIUM HUSK (WITH SUGAR) | [facility] | | | | | + + + + | 2023-01-15 00:00 | PSYLLIUM HUSK (WITH SUGAR) | [facility] | | | | | + + + + | 2023-01-16 00:00 | PSYLLIUM HUSK (WITH SUGAR) | [facility] | | | | | + + + + | 2022-04-20 00:00 | DIPHENHYDRAMINE HCL | [facility] | + + + + | 2022-05-30 00:00 | DIPHENHYDRAMINE HCL | [facility] | + + + + | 2022-07-16 00:00 | DIPHENHYDRAMINE HCL | [facility] | + + + + | 2022-02-17 00:00 | FERROUS SULFATE | [facility] | + + + + | 2022-02-25 00:00 | FERROUS SULFATE | [facility] | + + + + | 2022-03-31 00:00 | FERROUS SULFATE | [facility] | + + + + | 2022-04-19 00:00 | FERROUS SULFATE | [facility] | + + + + | 2022-04-20 00:00 | FERROUS SULFATE | [facility] | + + + + | 2022-05-30 00:00 | FERROUS SULFATE | [facility] | + + + + | 2022-07-16 00:00 | FERROUS SULFATE | [facility] | + + + + | 2022-10-15 00:00 | FERROUS SULFATE | [facility] | + + + + | 2023-01-06 00:00 | FERROUS SULFATE | [facility] | + + + + | 2023-01-15 00:00 | FERROUS SULFATE | [facility] | + + + + | 2023-01-16 00:00 | FERROUS SULFATE | [facility] | + + + + | 2022-02-17 00:00 | DOCUSATE SODIUM | [facility] | + + + + | 2022-02-25 00:00 | DOCUSATE SODIUM | [facility] | + + + + | 2022-03-31 00:00 | DOCUSATE SODIUM | [facility] | + + + + | 2022-04-19 00:00 | DOCUSATE SODIUM | [facility] | + + + + | 2022-04-20 00:00 | DOCUSATE SODIUM | [facility] | + + + + | 2022-05-30 00:00 | DOCUSATE SODIUM | [facility] | + + + + | 2022-07-16 00:00 | DOCUSATE SODIUM | [facility] | + + + + | 2022-10-15 00:00 | DOCUSATE SODIUM | [facility] | + + + + | 2023-01-06 00:00 | DOCUSATE SODIUM | [facility] | + + + + | 2023-01-15 00:00 | DOCUSATE SODIUM | [facility] | + + + + | 2023-01-16 00:00 | DOCUSATE SODIUM | [facility] | + + + + | 2022-10-15 00:00 | OLANZAPINE | [facility] | + + + + | 2023-01-06 00:00 | OLANZAPINE | [facility] | + + + + | 2023-01-15 00:00 | OLANZAPINE | [facility] | + + + + | 2023-01-16 00:00 | OLANZAPINE | [facility] | + + + + | 2016-07-04 00:00 | DOXYCYCLINE HYCLATE | [facility] | + + + + | 2016-07-04 00:00 | DOXYCYCLINE HYCLATE | [facility] | + + + + | 2016-07-04 00:00 | DOXYCYCLINE HYCLATE | [facility] | + + + + | 2016-07-04 00:00 | DOXYCYCLINE HYCLATE | [facility] | + + + + | 2016-07-04 00:00 | DOXYCYCLINE HYCLATE | [facility] | + + + + | 2016-07-04 00:00 | DOXYCYCLINE HYCLATE | [facility] | + + + + | 2016-07-04 00:00 | DOXYCYCLINE HYCLATE | [facility] | + + + + | 2022-02-17 00:00 | INSULIN LISPRO | [facility] | + + + + | 2022-02-25 00:00 | INSULIN LISPRO | [facility] | + + + + | 2022-03-31 00:00 | INSULIN LISPRO | [facility] | + + + + | 2022-04-19 00:00 | INSULIN LISPRO | [facility] | + + + + | 2022-04-20 00:00 | INSULIN LISPRO | [facility] | + + + + | 2022-05-30 00:00 | INSULIN LISPRO | [facility] | + + + + | 2022-07-16 00:00 | INSULIN LISPRO | [facility] | + + + + | 2022-10-15 00:00 | Insulin Aspart | [facility] | + + + + | 2023-01-06 00:00 | Insulin Aspart | [facility] | + + + + | 2023-01-15 00:00 | Insulin Aspart | [facility] | + + + + | 2023-01-16 00:00 | Insulin Aspart | [facility] | + + + + | 2022-02-17 00:00 | INSULIN ASPART | [facility] | + + + + | 2022-02-25 00:00 | INSULIN ASPART | [facility] | + + + + | 2022-03-31 00:00 | INSULIN ASPART | [facility] | + + + + | 2022-04-19 00:00 | INSULIN ASPART | [facility] | + + + + | 2022-04-20 00:00 | INSULIN ASPART | [facility] | + + + + | 2022-02-17 00:00 | METFORMIN HCL | [facility] | + + + + | 2022-02-25 00:00 | METFORMIN HCL | [facility] | + + + + | 2022-03-31 00:00 | METFORMIN HCL | [facility] | + + + + | 2022-04-19 00:00 | METFORMIN HCL | [facility] | + + + + | 2022-04-20 00:00 | METFORMIN HCL | [facility] | + + + + | 2022-05-30 00:00 | METFORMIN HCL | [facility] | + + + + | 2022-07-16 00:00 | METFORMIN HCL | [facility] | + + + + | 2022-10-15 00:00 | METFORMIN HCL | [facility] | + + + + | 2023-01-06 00:00 | METFORMIN HCL | [facility] | + + + + | 2023-01-15 00:00 | METFORMIN HCL | [facility] | + + + + | 2023-01-16 00:00 | METFORMIN HCL | [facility] | + + + + | 2020-04-07 00:00 | DEXAMETHASONE | [facility] | + + + + | 2020-04-07 00:00 | DEXAMETHASONE | [facility] | + + + + | 2020-04-07 00:00 | DEXAMETHASONE | [facility] | + + + + | 2020-04-07 00:00 | DEXAMETHASONE | [facility] | + + + + | 2020-04-07 00:00 | DEXAMETHASONE | [facility] | + + + + | 2020-04-07 00:00 | DEXAMETHASONE | [facility] | + + + + 2020-04-07 00:00 | DEXAMETHASONE | [facility] | + + + + | 2022-02-17 00:00 | DIAZEPAM | [facility] | + + + + | 2022-02-25 00:00 | DIAZEPAM | [facility] | + + + + | 2022-03-31 00:00 | DIAZEPAM | [facility] | + + + + | 2022-04-19 00:00 | DIAZEPAM | [facility] | + + + + | 2022-04-20 00:00 | DIAZEPAM | [facility] | + + + + | 2022-05-30 00:00 | DIAZEPAM | [facility] | + + + + | 2022-07-16 00:00 | DIAZEPAM | [facility] | + + + + | 2022-10-15 00:00 | DIAZEPAM | [facility] | + + + + | 2023-01-06 00:00 | DIAZEPAM | [facility] | + + + + | 2023-01-15 00:00 | DIAZEPAM | [facility] | + + + + | 2023-01-16 00:00 | DIAZEPAM | [facility] | + + + + | 2022-02-17 00:00 | IBUPROFEN | [facility] | + + + + | 2022-02-25 00:00 | IBUPROFEN | [facility] | + + + + | 2022-03-31 00:00 | IBUPROFEN | [facility] | + + + + | 2022-04-19 00:00 | IBUPROFEN | [facility] | + + + + | 2022-04-20 00:00 | IBUPROFEN | [facility] | + + + + | 2022-05-30 00:00 | IBUPROFEN | [facility] | + + + + | 2022-07-16 00:00 | IBUPROFEN | [facility] | + + + + | 2022-10-15 00:00 | IBUPROFEN | [facility] | + + + + | 2023-01-06 00:00 | IBUPROFEN | [facility] | + + + + | 2023-01-15 00:00 | IBUPROFEN | [facility] | + + + + | 2023-01-16 00:00 | IBUPROFEN | [facility] | + + + + | 2018-07-07 00:00 | METHOCARBAMOL | [facility] | + + + + | 2018-07-07 00:00 | METHOCARBAMOL | [facility] | + + + + | 2018-07-07 00:00 | METHOCARBAMOL | [facility] | + + + + | 2018-07-07 00:00 | METHOCARBAMOL | [facility] | + + + + | 2018-07-07 00:00 | METHOCARBAMOL | [facility] | + + + + | 2018-07-07 00:00 | METHOCARBAMOL | [facility] | + + + + | 2018-07-07 00:00 | METHOCARBAMOL | [facility] | + + + + | 2022-02-17 00:00 | METHOCARBAMOL | [facility] | + + + + | 2022-02-25 00:00 | METHOCARBAMOL | [facility] | + + + + | 2022-03-31 00:00 | METHOCARBAMOL | [facility] | + + + + | 2022-04-19 00:00 | METHOCARBAMOL | [facility] | + + + + | 2022-04-20 00:00 | METHOCARBAMOL | [facility] | + + + + | 2022-05-30 00:00 | METHOCARBAMOL | [facility] | + + + + | 2022-07-16 00:00 | METHOCARBAMOL | [facility] | + + + + | 2022-10-15 00:00 | METHOCARBAMOL | [facility] | + + + + | 2023-01-06 00:00 | METHOCARBAMOL | [facility] | + + + + | 2023-01-15 00:00 | METHOCARBAMOL | [facility] | + + + + | 2023-01-16 00:00 | METHOCARBAMOL | [facility] | + + + + | 2014-05-25 00:00 | NAPROXEN | [facility] | + + + + | 2014-05-25 00:00 | NAPROXEN | [facility] | + + + + | 2014-05-25 00:00 | NAPROXEN | [facility] | + + + + | 2014-05-25 00:00 | NAPROXEN | [facility] | + + + + | 2014-05-25 00:00 | NAPROXEN | [facility] | + + + + | 2014-05-25 00:00 | NAPROXEN | [facility] | + + + + | 2014-05-25 00:00 | NAPROXEN | [facility] | + + + + | 2016-04-08 00:00 | NAPROXEN | [facility] | + + + + | 2016-04-08 00:00 | NAPROXEN | [facility] | + + + + | 2016-04-08 00:00 | NAPROXEN | [facility] | + + + + | 2016-04-08 00:00 | NAPROXEN | [facility] | + + + + | 2016-04-08 00:00 | NAPROXEN | [facility] | + + + + | 2016-04-08 00:00 | NAPROXEN | [facility] | + + + + | 2016-04-08 00:00 | NAPROXEN | [facility] | + + + + | 2022-02-17 00:00 | OMEPRAZOLE | [facility] | + + + + | 2022-02-25 00:00 | OMEPRAZOLE | [facility] | + + + + | 2022-03-31 00:00 | OMEPRAZOLE | [facility] | + + + + | 2022-04-19 00:00 | OMEPRAZOLE | [facility] | + + + + | 2022-04-20 00:00 | OMEPRAZOLE | [facility] | + + + + | 2022-05-30 00:00 | OMEPRAZOLE | [facility] | + + + + | 2022-07-16 00:00 | OMEPRAZOLE | [facility] | + + + + | 2022-10-15 00:00 | OMEPRAZOLE | [facility] | + + + + | 2023-01-06 00:00 | OMEPRAZOLE | [facility] | + + + + | 2023-01-15 00:00 | OMEPRAZOLE | [facility] | + + + + | 2023-01-16 00:00 | OMEPRAZOLE | [facility] | + + + + | 2017-11-03 00:00 | ONDANSETRON HCL | [facility] | + + + + | 2017-11-03 00:00 | ONDANSETRON HCL | [facility] | + + + + | 2017-11-03 00:00 | ONDANSETRON HCL | [facility] | + + + + | 2017-11-03 00:00 | ONDANSETRON HCL | [facility] | + + + + | 2017-11-03 00:00 | ONDANSETRON HCL | [facility] | + + + + | 2017-11-03 00:00 | ONDANSETRON HCL | [facility] | + + + + | 2017-11-03 00:00 | ONDANSETRON HCL | [facility] | + + + + | 2022-02-17 00:00 | RANITIDINE HCL | [facility] | + + + + | 2022-02-25 00:00 | RANITIDINE HCL | [facility] | + + + + | 2022-03-31 00:00 | RANITIDINE HCL | [facility] | + + + + | 2022-04-19 00:00 | RANITIDINE HCL | [facility] | + + + + | 2022-04-20 00:00 | RANITIDINE HCL | [facility] | + + + + | 2022-05-30 00:00 | RANITIDINE HCL | [facility] | + + + + | 2022-07-16 00:00 | RANITIDINE HCL | [facility] | + + + + | 2022-10-15 00:00 | RANITIDINE HCL | [facility] | + + + + | 2023-01-06 00:00 | RANITIDINE HCL | [facility] | + + + + | 2023-01-15 00:00 | RANITIDINE HCL | [facility] | + + + + | 2023-01-16 00:00 | RANITIDINE HCL | [facility] | + + + + | 2014-05-16 00:00 | FAMCICLOVIR | [facility] | + + + + | 2014-05-16 00:00 | FAMCICLOVIR | [facility] | + + + + | 2014-05-16 00:00 | FAMCICLOVIR | [facility] | + + + + | 2014-05-16 00:00 | FAMCICLOVIR | [facility] | + + + + | 2014-05-16 00:00 | FAMCICLOVIR | [facility] | + + + + | 2014-05-16 00:00 | FAMCICLOVIR | [facility] | + + + + | 2014-05-16 00:00 | FAMCICLOVIR | [facility] | + + + + | 2022-02-17 00:00 | MONTELUKAST SODIUM | [facility] | + + + + | 2022-02-25 00:00 | MONTELUKAST SODIUM | [facility] | + + + + | 2022-03-31 00:00 | MONTELUKAST SODIUM | [facility] | + + + + | 2022-04-19 00:00 | MONTELUKAST SODIUM | [facility] | + + + + | 2022-04-20 00:00 | MONTELUKAST SODIUM | [facility] | + + + + | 2022-05-30 00:00 | MONTELUKAST SODIUM | [facility] | + + + + | 2022-07-16 00:00 | MONTELUKAST SODIUM | [facility] | + + + + | 2022-10-15 00:00 | MONTELUKAST SODIUM | [facility] | + + + + | 2023-01-06 00:00 | MONTELUKAST SODIUM | [facility] | + + + + | 2023-01-15 00:00 | MONTELUKAST SODIUM | [facility] | + + + + | 2023-01-16 00:00 | MONTELUKAST SODIUM | [facility] | + + + + | 2022-02-17 00:00 | CEFDINIR | [facility] | + + + + | 2022-02-25 00:00 | CEFDINIR | [facility] | + + + + | 2022-03-31 00:00 | CEFDINIR | [facility] | + + + + | 2022-04-19 00:00 | CEFDINIR | [facility] | + + + + | 2022-04-20 00:00 | CEFDINIR | [facility] | + + + + | 2022-05-30 00:00 | CEFDINIR | [facility] | + + + + | 2022-07-16 00:00 | CEFDINIR | [facility] | + + + + | 2022-10-15 00:00 | CEFDINIR | [facility] | + + + + | 2023-01-06 00:00 | CEFDINIR | [facility] | + + + + | 2023-01-15 00:00 | CEFDINIR | [facility] | + + + + | 2023-01-16 00:00 | CEFDINIR | [facility] | + + + + | 2022-02-17 00:00 | CELECOXIB | [facility] | + + + + | 2022-02-25 00:00 | CELECOXIB | [facility] | + + + + | 2022-03-31 00:00 | CELECOXIB | [facility] | + + + + | 2022-04-19 00:00 | CELECOXIB | [facility] | + + + + | 2022-04-20 00:00 | CELECOXIB | [facility] | + + + + | 2022-05-30 00:00 | CELECOXIB | [facility] | + + + + | 2022-07-16 00:00 | CELECOXIB | [facility] | + + + + | 2022-10-15 00:00 | CELECOXIB | [facility] | + + + + | 2023-01-06 00:00 | CELECOXIB | [facility] | + + + + | 2023-01-15 00:00 | CELECOXIB | [facility] | + + + + | 2023-01-16 00:00 | CELECOXIB | [facility] | + + + + | 2022-02-17 00:00 | LORATADINE | [facility] | + + + + | 2022-02-25 00:00 | LORATADINE | [facility] | + + + + | 2022-03-31 00:00 | LORATADINE | [facility] | + + + + | 2022-04-19 00:00 | LORATADINE | [facility] | + + + + | 2022-04-20 00:00 | LORATADINE | [facility] | + + + + | 2022-05-30 00:00 | LORATADINE | [facility] | + + + + | 2022-07-16 00:00 | LORATADINE | [facility] | + + + + | 2022-10-15 00:00 | LORATADINE | [facility] | + + + + | 2023-01-06 00:00 | LORATADINE | [facility] | + + + + | 2023-01-15 00:00 | LORATADINE | [facility] | + + + + | 2023-01-16 00:00 | LORATADINE | [facility] | + + + + | 2022-02-17 00:00 | METHOCARBAMOL | [facility] | + + + + | 2022-02-25 00:00 | METHOCARBAMOL | [facility] | + + + + | 2022-03-31 00:00 | METHOCARBAMOL | [facility] | + + + + | 2022-04-19 00:00 | METHOCARBAMOL | [facility] | + + + + | 2022-04-20 00:00 | METHOCARBAMOL | [facility] | + + + + | 2022-05-30 00:00 | METHOCARBAMOL | [facility] | + + + + | 2022-07-16 00:00 | METHOCARBAMOL | [facility] | + + + + | 2022-10-15 00:00 | METHOCARBAMOL | [facility] | + + + + | 2023-01-06 00:00 | METHOCARBAMOL | [facility] | + + + + | 2023-01-15 00:00 | METHOCARBAMOL | [facility] | + + + + | 2023-01-16 00:00 | METHOCARBAMOL | [facility] | + + + + | 2019-09-17 00:00 | FLUCONAZOLE | [facility] | + + + + | 2019-09-17 00:00 | FLUCONAZOLE | [facility] | + + + + | 2019-09-17 00:00 | FLUCONAZOLE | [facility] | + + + + | 2019-09-17 00:00 | FLUCONAZOLE | [facility] | + + + + 2019-09-17 00:00 | FLUCONAZOLE | [facility] | + + + + 2019-09-17 00:00 | FLUCONAZOLE | [facility] | + + + + | 2019-09-17 00:00 | FLUCONAZOLE | [facility] | + + + + | 2020-05-21 00:00 | FLUCONAZOLE | [facility] | + + + + | 2020-05-21 00:00 | FLUCONAZOLE | [facility] | + + + + 2020-05-21 00:00 | FLUCONAZOLE | [facility] | + + + + 2020-05-21 00:00 | FLUCONAZOLE | [facility] | + + + + | 2020-05-21 00:00 | FLUCONAZOLE | [facility] | + + + + | 2020-05-21 00:00 | FLUCONAZOLE | [facility] | + + + + | 2020-05-21 00:00 | FLUCONAZOLE | [facility] | + + + + | 2020-08-08 00:00 | ACETAMINOPHEN | [facility] | + + + + | 2020-08-08 00:00 | ACETAMINOPHEN | [facility] | + + + + | 2020-08-08 00:00 | ACETAMINOPHEN | [facility] | + + + + | 2020-08-08 00:00 | ACETAMINOPHEN | [facility] | + + + + | 2020-08-08 00:00 | ACETAMINOPHEN | [facility] | + + + + | 2020-08-08 00:00 | ACETAMINOPHEN | [facility] | + + + + | 2020-08-08 00:00 | ACETAMINOPHEN | [facility] | + + + + | 2022-02-17 00:00 | Fluticasone | [facility] | | | Propion/Salmeterol | | + + + + | 2022-02-25 00:00 | Fluticasone | [facility] | | | Propion/Salmeterol | | + + + + | 2022-03-31 00:00 | Fluticasone | [facility] | | | Propion/Salmeterol | | + + + + | 2022-04-19 00:00 | Fluticasone | [facility] | | | Propion/Salmeterol | | + + + + | 2022-04-20 00:00 | Fluticasone | [facility] | | | Propion/Salmeterol | | + + + + | 2022-05-30 00:00 | Fluticasone | [facility] | | | Propion/Salmeterol | | + + + + | 2022-07-16 00:00 | Fluticasone | [facility] | | | Propion/Salmeterol | | + + + + | 2022-10-15 00:00 | Fluticasone | [facility] | | | Propion/Salmeterol | | + + + + | 2023-01-06 00:00 | Fluticasone | [facility] | | | Propion/Salmeterol | | + + + + | 2023-01-15 00:00 | Fluticasone | [facility] | | | Propion/Salmeterol | | + + + + | 2023-01-16 00:00 | Fluticasone | [facility] | | | Propion/Salmeterol | | + + + + | 2017-06-14 00:00 | CEPHALEXIN | [facility] | + + + + | 2017-06-14 00:00 | CEPHALEXIN | [facility] | + + + + | 2017-06-14 00:00 | CEPHALEXIN | [facility] | + + + + | 2017-06-14 00:00 | CEPHALEXIN | [facility] | + + + + | 2017-06-14 00:00 | CEPHALEXIN | [facility] | + + + + | 2017-06-14 00:00 | CEPHALEXIN | [facility] | + + + + | 2017-06-14 00:00 | CEPHALEXIN | [facility] | + + + + | 2019-12-09 00:00 | CEPHALEXIN | [facility] | + + + + | 2019-12-09 00:00 | CEPHALEXIN | [facility] | + + + + | 2019-12-09 00:00 | CEPHALEXIN | [facility] | + + + + 2019-12-09 00:00 | CEPHALEXIN | [facility] | + + + + 2019-12-09 00:00 | CEPHALEXIN | [facility] | + + + + | 2019-12-09 00:00 | CEPHALEXIN | [facility] | + + + + | 2019-12-09 00:00 | CEPHALEXIN | [facility] | + + + + | 2022-10-15 00:00 | Semaglutide | [facility] | + + + + | 2023-01-06 00:00 | Semaglutide | [facility] | + + + + | 2023-01-15 00:00 | Semaglutide | [facility] | + + + + | 2023-01-16 00:00 | Semaglutide | [facility] | + + + + | 2023-01-06 00:00 | Insulin Glargine-Yfgn | [facility] | + + + + | 2023-01-15 00:00 | Insulin Glargine-Yfgn | [facility] | + + + + | 2023-01-16 00:00 | Insulin Glargine-Yfgn | [facility] | + + + + | 2022-02-17 00:00 | CLINDAMYCIN HCL | [facility] | + + + + | 2022-02-25 00:00 | CLINDAMYCIN HCL | [facility] | + + + + | 2022-03-31 00:00 | CLINDAMYCIN HCL | [facility] | + + + + | 2022-04-19 00:00 | CLINDAMYCIN HCL | [facility] | + + + + | 2022-04-20 00:00 | CLINDAMYCIN HCL | [facility] | + + + + | 2022-05-30 00:00 | CLINDAMYCIN HCL | [facility] | + + + + | 2022-07-16 00:00 | CLINDAMYCIN HCL | [facility] | + + + + | 2022-10-15 00:00 | CLINDAMYCIN HCL | [facility] | + + + + | 2023-01-06 00:00 | CLINDAMYCIN HCL | [facility] | + + + + | 2023-01-15 00:00 | CLINDAMYCIN HCL | [facility] | + + + + | 2023-01-16 00:00 | CLINDAMYCIN HCL | [facility] | + + + + | 2013-04-27 00:00 | PANTOPRAZOLE SODIUM | [facility] | + + + + | 2013-04-27 00:00 | PANTOPRAZOLE SODIUM | [facility] | + + + + | 2013-04-27 00:00 | PANTOPRAZOLE SODIUM | [facility] | + + + + | 2013-04-27 00:00 | PANTOPRAZOLE SODIUM | [facility] | + + + + | 2013-04-27 00:00 | PANTOPRAZOLE SODIUM | [facility] | + + + + | 2013-04-27 00:00 | PANTOPRAZOLE SODIUM | [facility] | + + + + | 2013-04-27 00:00 | PANTOPRAZOLE SODIUM | [facility] | + + + + | 2017-11-03 00:00 | INSULIN GLARGINE | [facility] | + + + + | 2017-11-03 00:00 | INSULIN GLARGINE | [facility] | + + + + | 2017-11-03 00:00 | INSULIN GLARGINE | [facility] | + + + + | 2017-11-03 00:00 | INSULIN GLARGINE | [facility] | + + + + | 2017-11-03 00:00 | INSULIN GLARGINE | [facility] | + + + + | 2017-11-03 00:00 | INSULIN GLARGINE | [facility] | + + + + | 2017-11-03 00:00 | INSULIN GLARGINE | [facility] | + + + + | 2022-02-17 00:00 | AMOXICILLIN | [facility] | + + + + | 2022-02-25 00:00 | AMOXICILLIN | [facility] | + + + + | 2022-03-31 00:00 | AMOXICILLIN | [facility] | + + + + | 2022-04-19 00:00 | AMOXICILLIN | [facility] | + + + + | 2022-04-20 00:00 | AMOXICILLIN | [facility] | + + + + | 2022-05-30 00:00 | AMOXICILLIN | [facility] | + + + + | 2022-07-16 00:00 | AMOXICILLIN | [facility] | + + + + | 2022-10-15 00:00 | AMOXICILLIN | [facility] | + + + + | 2023-01-06 00:00 | AMOXICILLIN | [facility] | + + + + | 2023-01-15 00:00 | AMOXICILLIN | [facility] | + + + + | 2023-01-16 00:00 | AMOXICILLIN | [facility] | + + + + | 2022-02-17 00:00 | AMOXICILLIN | [facility] | + + + + | 2022-02-25 00:00 | AMOXICILLIN | [facility] | + + + + | 2022-03-31 00:00 | AMOXICILLIN | [facility] | + + + + | 2022-04-19 00:00 | AMOXICILLIN | [facility] | + + + + | 2022-04-20 00:00 | AMOXICILLIN | [facility] | + + + + | 2022-05-30 00:00 | AMOXICILLIN | [facility] | + + + + | 2022-07-16 00:00 | AMOXICILLIN | [facility] | + + + + | 2022-10-15 00:00 | AMOXICILLIN | [facility] | + + + + | 2023-01-06 00:00 | AMOXICILLIN | [facility] | + + + + | 2023-01-15 00:00 | AMOXICILLIN | [facility] | + + + + | 2023-01-16 00:00 | AMOXICILLIN | [facility] | + + + + | 2022-02-17 00:00 | ASPIRIN | [facility] | + + + + | 2022-02-25 00:00 | ASPIRIN | [facility] | + + + + | 2022-03-31 00:00 | ASPIRIN | [facility] | + + + + | 2022-04-19 00:00 | ASPIRIN | [facility] | + + + + | 2022-04-20 00:00 | ASPIRIN | [facility] | + + + + | 2022-05-30 00:00 | ASPIRIN | [facility] | + + + + | 2022-07-16 00:00 | ASPIRIN | [facility] | + + + + | 2022-10-15 00:00 | ASPIRIN | [facility] | + + + + | 2023-01-06 00:00 | ASPIRIN | [facility] | + + + + | 2023-01-15 00:00 | ASPIRIN | [facility] | + + + + | 2023-01-16 00:00 | ASPIRIN | [facility] | + + + + | 2019-09-17 00:00 | CLOTRIMAZOLE | [facility] | + + + + | 2019-09-17 00:00 | CLOTRIMAZOLE | [facility] | + + + + | 2019-09-17 00:00 | CLOTRIMAZOLE | [facility] | + + + + | 2019-09-17 00:00 | CLOTRIMAZOLE | [facility] | + + + + | 2019-09-17 00:00 | CLOTRIMAZOLE | [facility] | + + + + | 2019-09-17 00:00 | CLOTRIMAZOLE | [facility] | + + + + | 2019-09-17 00:00 | CLOTRIMAZOLE | [facility] | + + + + | 2022-05-30 00:00 | CLOTRIMAZOLE | [facility] | + + + + | 2022-07-16 00:00 | CLOTRIMAZOLE | [facility] | + + + + | 2022-02-17 00:00 | FERROUS SULFATE | [facility] | + + + + | 2022-02-25 00:00 | FERROUS SULFATE | [facility] | + + + + | 2022-03-31 00:00 | FERROUS SULFATE | [facility] | + + + + | 2022-04-19 00:00 | FERROUS SULFATE | [facility] | + + + + | 2022-04-20 00:00 | FERROUS SULFATE | [facility] | + + + + | 2022-05-30 00:00 | FERROUS SULFATE | [facility] | + + + + | 2022-07-16 00:00 | FERROUS SULFATE | [facility] | + + + + | 2022-10-15 00:00 | FERROUS SULFATE | [facility] | + + + + | 2023-01-06 00:00 | FERROUS SULFATE | [facility] | + + + + | 2023-01-15 00:00 | FERROUS SULFATE | [facility] | + + + + | 2023-01-16 00:00 | FERROUS SULFATE | [facility] | + + + + | 2022-02-17 00:00 | HYDROCHLOROTHIAZIDE | [facility] | + + + + | 2022-02-25 00:00 | HYDROCHLOROTHIAZIDE | [facility] | + + + + | 2022-03-31 00:00 | HYDROCHLOROTHIAZIDE | [facility] | + + + + | 2022-04-19 00:00 | HYDROCHLOROTHIAZIDE | [facility] | + + + + | 2022-04-20 00:00 | HYDROCHLOROTHIAZIDE | [facility] | + + + + | 2022-05-30 00:00 | HYDROCHLOROTHIAZIDE | [facility] | + + + + | 2022-07-16 00:00 | HYDROCHLOROTHIAZIDE | [facility] | + + + + | 2022-10-15 00:00 | HYDROCHLOROTHIAZIDE | [facility] | + + + + | 2023-01-06 00:00 | HYDROCHLOROTHIAZIDE | [facility] | + + + + | 2023-01-15 00:00 | HYDROCHLOROTHIAZIDE | [facility] | + + + + | 2023-01-16 00:00 | HYDROCHLOROTHIAZIDE | [facility] | + + + + | 2019-10-12 00:00 | Ibuprofen | [facility] | + + + + | 2019-10-12 00:00 | Ibuprofen | [facility] | + + + + | 2019-10-12 00:00 | Ibuprofen | [facility] | + + + + | 2019-10-12 00:00 | Ibuprofen | [facility] | + + + + | 2019-10-12 00:00 | Ibuprofen | [facility] | + + + + | 2019-10-12 00:00 | Ibuprofen | [facility] | + + + + | 2019-10-12 00:00 | Ibuprofen | [facility] | + + + + | 2022-02-17 00:00 | LORATADINE | [facility] | + + + + | 2022-02-25 00:00 | LORATADINE | [facility] | + + + + | 2022-03-31 00:00 | LORATADINE | [facility] | + + + + | 2022-04-19 00:00 | LORATADINE | [facility] | + + + + | 2022-04-20 00:00 | LORATADINE | [facility] | + + + + | 2022-05-30 00:00 | LORATADINE | [facility] | + + + + | 2022-07-16 00:00 | LORATADINE | [facility] | + + + + | 2022-10-15 00:00 | LORATADINE | [facility] | + + + + | 2023-01-06 00:00 | LORATADINE | [facility] | + + + + | 2023-01-15 00:00 | LORATADINE | [facility] | + + + + | 2023-01-16 00:00 | LORATADINE | [facility] | + + + + | 2020-01-17 00:00 | ONDANSETRON | [facility] | + + + + | 2020-01-17 00:00 | ONDANSETRON | [facility] | + + + + | 2020-01-17 00:00 | ONDANSETRON | [facility] | + + + + | 2020-01-17 00:00 | ONDANSETRON | [facility] | + + + + | 2020-01-17 00:00 | ONDANSETRON | [facility] | + + + + | 2020-01-17 00:00 | ONDANSETRON | [facility] | + + + + | 2020-01-17 00:00 | ONDANSETRON | [facility] | + + + + | 2020-11-01 00:00 | ONDANSETRON | [facility] | + + + + | 2022-02-25 00:00 | ONDANSETRON | [facility] | + + + + | 2022-02-25 00:00 | ONDANSETRON | [facility] | + + + + | 2022-02-25 00:00 | ONDANSETRON | [facility] | + + + + | 2022-02-25 00:00 | ONDANSETRON | [facility] | + + + + | 2022-02-25 00:00 | ONDANSETRON | [facility] | + + + + | 2023-01-15 00:00 | ONDANSETRON | [facility] | + + + + | 2017-11-08 00:00 | POTASSIUM CHLORIDE | [facility] | + + + + | 2017-11-08 00:00 | POTASSIUM CHLORIDE | [facility] | + + + + | 2017-11-08 00:00 | POTASSIUM CHLORIDE | [facility] | + + + + | 2017-11-08 00:00 | POTASSIUM CHLORIDE | [facility] | + + + + | 2017-11-08 00:00 | POTASSIUM CHLORIDE | [facility] | + + + + | 2017-11-08 00:00 | POTASSIUM CHLORIDE | [facility] | + + + + | 2017-11-08 00:00 | POTASSIUM CHLORIDE | [facility] | + + + + | 2022-02-17 00:00 | ACETAMINOPHEN | [facility] | + + + + | 2022-02-25 00:00 | ACETAMINOPHEN | [facility] | + + + + | 2022-03-31 00:00 | ACETAMINOPHEN | [facility] | + + + + | 2022-04-19 00:00 | ACETAMINOPHEN | [facility] | + + + + | 2022-04-20 00:00 | ACETAMINOPHEN | [facility] | + + + + | 2022-05-30 00:00 | ACETAMINOPHEN | [facility] | + + + + | 2022-07-16 00:00 | ACETAMINOPHEN | [facility] | + + + + | 2022-10-15 00:00 | ACETAMINOPHEN | [facility] | + + + + | 2023-01-06 00:00 | ACETAMINOPHEN | [facility] | + + + + | 2023-01-15 00:00 | ACETAMINOPHEN | [facility] | + + + + | 2023-01-16 00:00 | ACETAMINOPHEN | [facility] | + + + + | 2022-02-17 00:00 | LISINOPRIL | [facility] | + + + + | 2022-02-25 00:00 | LISINOPRIL | [facility] | + + + + | 2022-03-31 00:00 | LISINOPRIL | [facility] | + + + + | 2022-04-19 00:00 | LISINOPRIL | [facility] | + + + + | 2022-04-20 00:00 | LISINOPRIL | [facility] | + + + + | 2022-05-30 00:00 | LISINOPRIL | [facility] | + + + + | 2022-07-16 00:00 | LISINOPRIL | [facility] | + + + + | 2022-10-15 00:00 | LISINOPRIL | [facility] | + + + + | 2023-01-06 00:00 | LISINOPRIL | [facility] | + + + + | 2023-01-15 00:00 | LISINOPRIL | [facility] | + + + + | 2023-01-16 00:00 | LISINOPRIL | [facility] | + + + + | 2017-11-03 00:00 | Insulin Aspart | [facility] | + + + + | 2017-11-03 00:00 | Insulin Aspart | [facility] | + + + + | 2017-11-03 00:00 | Insulin Aspart | [facility] | + + + + | 2017-11-03 00:00 | Insulin Aspart | [facility] | + + + + | 2017-11-03 00:00 | Insulin Aspart | [facility] | + + + + | 2017-11-03 00:00 | Insulin Aspart | [facility] | + + + + | 2017-11-03 00:00 | Insulin Aspart | [facility] | + + + + | 2020-11-27 00:00 | OMEPRAZOLE MAGNESIUM | [facility] | + + + + | 2020-11-27 00:00 | OMEPRAZOLE MAGNESIUM | [facility] | + + + + | 2020-11-27 00:00 | OMEPRAZOLE MAGNESIUM | [facility] | + + + + | 2020-11-27 00:00 | OMEPRAZOLE MAGNESIUM | [facility] | + + + + | 2020-11-27 00:00 | OMEPRAZOLE MAGNESIUM | [facility] | + + + + | 2020-11-27 00:00 | OMEPRAZOLE MAGNESIUM | [facility] | + + + + | 2020-11-27 00:00 | OMEPRAZOLE MAGNESIUM | [facility] | + + + + | 2020-08-08 00:00 | CALCIUM | [facility] | | | CARBONATE/SIMETHICONE | | + + + + | 2020-08-08 00:00 | CALCIUM | [facility] | | | CARBONATE/SIMETHICONE | | + + + + | 2020-08-08 00:00 | CALCIUM | [facility] | | | CARBONATE/SIMETHICONE | | + + + + | 2020-08-08 00:00 | CALCIUM | [facility] | | | CARBONATE/SIMETHICONE | | + + + + | 2020-08-08 00:00 | CALCIUM | [facility] | | | CARBONATE/SIMETHICONE | | + + + + | 2020-08-08 00:00 | CALCIUM | [facility] | | | CARBONATE/SIMETHICONE | | + + + + | 2020-08-08 00:00 | CALCIUM | [facility] | | | CARBONATE/SIMETHICONE | | + + + + | 2020-11-02 00:00 | CALCIUM | [facility] | | | CARBONATE/SIMETHICONE | | + + + + | 2020-11-02 00:00 | CALCIUM | [facility] | | | CARBONATE/SIMETHICONE | | + + + + | 2020-11-02 00:00 | CALCIUM | [facility] | | | CARBONATE/SIMETHICONE | | + + + + | 2020-11-02 00:00 | CALCIUM | [facility] | | | CARBONATE/SIMETHICONE | | + + + + | 2020-11-02 00:00 | CALCIUM | [facility] | | | CARBONATE/SIMETHICONE | | + + + + | 2020-11-02 00:00 | CALCIUM | [facility] | | | CARBONATE/SIMETHICONE | | + + + + | 2020-11-02 00:00 | CALCIUM | [facility] | | | CARBONATE/SIMETHICONE | | + + + + | 2022-02-17 00:00 | CHOLECALCIFEROL (VITAMIN | [facility] | | | D3) | | + + + + | 2022-02-25 00:00 | CHOLECALCIFEROL (VITAMIN | [facility] | | | D3) | | + + + + | 2022-03-31 00:00 | CHOLECALCIFEROL (VITAMIN | [facility] | | | D3) | | + + + + | 2022-04-19 00:00 | CHOLECALCIFEROL (VITAMIN | [facility] | | | D3) | | + + + + | 2022-04-20 00:00 | CHOLECALCIFEROL (VITAMIN | [facility] | | | D3) | | + + + + | 2022-05-30 00:00 | CHOLECALCIFEROL (VITAMIN | [facility] | | | D3) | | + + + + | 2022-07-16 00:00 | CHOLECALCIFEROL (VITAMIN | [facility] | | | D3) | | + + + + | 2022-10-15 00:00 | CHOLECALCIFEROL (VITAMIN | [facility] | | | D3) | | + + + + | 2023-01-06 00:00 | CHOLECALCIFEROL (VITAMIN | [facility] | | | D3) | | + + + + | 2023-01-15 00:00 | CHOLECALCIFEROL (VITAMIN | [facility] | | | D3) | | + + + + | 2023-01-16 00:00 | CHOLECALCIFEROL (VITAMIN | [facility] | | | D3) | | + + + + | 2022-02-17 00:00 | TIZANIDINE HCL | [facility] | + + + + | 2022-02-25 00:00 | TIZANIDINE HCL | [facility] | + + + + | 2022-03-31 00:00 | TIZANIDINE HCL | [facility] | + + + + | 2022-04-19 00:00 | TIZANIDINE HCL | [facility] | + + + + | 2022-04-20 00:00 | TIZANIDINE HCL | [facility] | + + + + | 2022-05-30 00:00 | TIZANIDINE HCL | [facility] | + + + + | 2022-07-16 00:00 | TIZANIDINE HCL | [facility] | + + + + | 2022-10-15 00:00 | TIZANIDINE HCL | [facility] | + + + + | 2023-01-06 00:00 | TIZANIDINE HCL | [facility] | + + + + | 2023-01-15 00:00 | TIZANIDINE HCL | [facility] | + + + + | 2023-01-16 00:00 | TIZANIDINE HCL | [facility] | + + + + | 2017-11-03 00:00 | FENOFIBRATE,MICRONIZED | [facility] | + + + + | 2017-11-03 00:00 | FENOFIBRATE,MICRONIZED | [facility] | + + + + | 2017-11-03 00:00 | FENOFIBRATE,MICRONIZED | [facility] | + + + + | 2017-11-03 00:00 | FENOFIBRATE,MICRONIZED | [facility] | + + + + | 2017-11-03 00:00 | FENOFIBRATE,MICRONIZED | [facility] | + + + + | 2017-11-03 00:00 | FENOFIBRATE,MICRONIZED | [facility] | + + + + | 2017-11-03 00:00 | FENOFIBRATE,MICRONIZED | [facility] | + + + + | 2022-10-15 00:00 | AMOXICILLIN/POTASSIUM CLAV | [facility] | | | | | + + + + | 2022-10-15 00:00 | AMOXICILLIN/POTASSIUM CLAV | [facility] | | | | | + + + + | 2022-10-15 00:00 | ATORVASTATIN CALCIUM | [facility] | + + + + | 2023-01-06 00:00 | ATORVASTATIN CALCIUM | [facility] | + + + + | 2023-01-15 00:00 | ATORVASTATIN CALCIUM | [facility] | + + + + | 2023-01-16 00:00 | ATORVASTATIN CALCIUM | [facility] | + + + + | 2022-02-17 00:00 | ATORVASTATIN | [facility] | + + + + | 2022-02-25 00:00 | ATORVASTATIN | [facility] | + + + + | 2022-03-31 00:00 | ATORVASTATIN | [facility] | + + + + | 2022-04-19 00:00 | ATORVASTATIN | [facility] | + + + + | 2022-04-20 00:00 | ATORVASTATIN | [facility] | + + + + | 2022-05-30 00:00 | ATORVASTATIN | [facility] | + + + + | 2022-07-16 00:00 | ATORVASTATIN | [facility] | + + + + | 2022-10-15 00:00 | ATORVASTATIN | [facility] | + + + + | 2023-01-06 00:00 | ATORVASTATIN | [facility] | + + + + | 2023-01-15 00:00 | ATORVASTATIN | [facility] | + + + + | 2023-01-16 00:00 | ATORVASTATIN | [facility] | + + + + | 2017-11-03 00:00 | ATORVASTATIN | [facility] | + + + + | 2017-11-03 00:00 | ATORVASTATIN | [facility] | + + + + | 2017-11-03 00:00 | ATORVASTATIN | [facility] | + + + + | 2017-11-03 00:00 | ATORVASTATIN | [facility] | + + + + | 2017-11-03 00:00 | ATORVASTATIN | [facility] | + + + + | 2017-11-03 00:00 | ATORVASTATIN | [facility] | + + + + | 2017-11-03 00:00 | ATORVASTATIN | [facility] | + + + + | 2022-02-17 00:00 | NYSTATIN | [facility] | + + + + | 2022-02-25 00:00 | NYSTATIN | [facility] | + + + + | 2022-03-31 00:00 | NYSTATIN | [facility] | + + + + | 2022-04-19 00:00 | NYSTATIN | [facility] | + + + + | 2022-04-20 00:00 | NYSTATIN | [facility] | + + + + | 2022-05-30 00:00 | NYSTATIN | [facility] | + + + + | 2022-07-16 00:00 | NYSTATIN | [facility] | + + + + | 2022-10-15 00:00 | NYSTATIN | [facility] | + + + + | 2023-01-06 00:00 | NYSTATIN | [facility] | + + + + | 2023-01-15 00:00 | NYSTATIN | [facility] | + + + + | 2023-01-16 00:00 | NYSTATIN | [facility] | + + + + | 2022-02-17 00:00 | ALBUTEROL SULFATE | [facility] | + + + + | 2022-02-25 00:00 | ALBUTEROL SULFATE | [facility] | + + + + | 2022-03-31 00:00 | ALBUTEROL SULFATE | [facility] | + + + + | 2022-04-19 00:00 | ALBUTEROL SULFATE | [facility] | + + + + | 2022-04-20 00:00 | ALBUTEROL SULFATE | [facility] | + + + + | 2022-05-30 00:00 | ALBUTEROL SULFATE | [facility] | + + + + | 2022-07-16 00:00 | ALBUTEROL SULFATE | [facility] | + + + + | 2022-02-17 00:00 | ALBUTEROL SULFATE MDI | [facility] | | | (HFA) | | + + + + | 2022-02-25 00:00 | ALBUTEROL SULFATE MDI | [facility] | | | (HFA) | | + + + + | 2022-03-31 00:00 | ALBUTEROL SULFATE MDI | [facility] | | | (HFA) | | + + + + | 2022-04-19 00:00 | ALBUTEROL SULFATE MDI | [facility] | | | (HFA) | | + + + + | 2022-04-20 00:00 | ALBUTEROL SULFATE MDI | [facility] | | | (HFA) | | + + + + | 2022-05-30 00:00 | ALBUTEROL SULFATE MDI | [facility] | | | (HFA) | | + + + + | 2022-07-16 00:00 | ALBUTEROL SULFATE MDI | [facility] | | | (HFA) | | + + + + | 2022-10-15 00:00 | ALBUTEROL SULFATE MDI | [facility] | | | (HFA) | | + + + + | 2023-01-06 00:00 | ALBUTEROL SULFATE MDI | [facility] | | | (HFA) | | + + + + | 2023-01-15 00:00 | ALBUTEROL SULFATE MDI | [facility] | | | (HFA) | | + + + + | 2023-01-16 00:00 | ALBUTEROL SULFATE MDI | [facility] | | | (HFA) | | + + + + | 2019-08-08 00:00 | CLINDAMYCIN HCL | [facility] | + + + + | 2019-08-08 00:00 | CLINDAMYCIN HCL | [facility] | + + + + | 2019-08-08 00:00 | CLINDAMYCIN HCL | [facility] | + + + + | 2019-08-08 00:00 | CLINDAMYCIN HCL | [facility] | + + + + | 2019-08-08 00:00 | CLINDAMYCIN HCL | [facility] | + + + + | 2019-08-08 00:00 | CLINDAMYCIN HCL | [facility] | + + + + | 2019-08-08 00:00 | CLINDAMYCIN HCL | [facility] | + + + + | 2021-01-10 00:00 | CLINDAMYCIN HCL | [facility] | + + + + | 2021-01-10 00:00 | CLINDAMYCIN HCL | [facility] | + + + + | 2021-01-10 00:00 | CLINDAMYCIN HCL | [facility] | + + + + | 2021-01-10 00:00 | CLINDAMYCIN HCL | [facility] | + + + + | 2021-01-10 00:00 | CLINDAMYCIN HCL | [facility] | + + + + | 2021-01-10 00:00 | CLINDAMYCIN HCL | [facility] | + + + + | 2021-01-10 00:00 | CLINDAMYCIN HCL | [facility] | + + + + | 2021-01-15 00:00 | CLINDAMYCIN HCL | [facility] | + + + + | 2021-01-15 00:00 | CLINDAMYCIN HCL | [facility] | + + + + | 2021-01-15 00:00 | CLINDAMYCIN HCL | [facility] | + + + + | 2021-01-15 00:00 | CLINDAMYCIN HCL | [facility] | + + + + | 2021-01-15 00:00 | CLINDAMYCIN HCL | [facility] | + + + + | 2021-01-15 00:00 | CLINDAMYCIN HCL | [facility] | + + + + | 2021-01-15 00:00 | CLINDAMYCIN HCL | [facility] | + + + + | 2022-02-17 00:00 | CHOLECALCIFEROL (VITAMIN | [facility] | | | D3) | | + + + + | 2022-02-25 00:00 | CHOLECALCIFEROL (VITAMIN | [facility] | | | D3) | | + + + + | 2022-03-31 00:00 | CHOLECALCIFEROL (VITAMIN | [facility] | | | D3) | | + + + + | 2022-04-19 00:00 | CHOLECALCIFEROL (VITAMIN | [facility] | | | D3) | | + + + + | 2022-04-20 00:00 | CHOLECALCIFEROL (VITAMIN | [facility] | | | D3) | | + + + + | 2022-05-30 00:00 | CHOLECALCIFEROL (VITAMIN | [facility] | | | D3) | | + + + + | 2022-07-16 00:00 | CHOLECALCIFEROL (VITAMIN | [facility] | | | D3) | | + + + + | 2022-10-15 00:00 | CHOLECALCIFEROL (VITAMIN | [facility] | | | D3) | | + + + + | 2023-01-06 00:00 | CHOLECALCIFEROL (VITAMIN | [facility] | | | D3) | | + + + + | 2023-01-15 00:00 | CHOLECALCIFEROL (VITAMIN | [facility] | | | D3) | | + + + + | 2023-01-16 00:00 | CHOLECALCIFEROL (VITAMIN | [facility] | | | D3) | | + + + + | 2022-10-15 00:00 | Cholecalciferol (Vitamin | [facility] | | | D3) | | + + + + | 2023-01-06 00:00 | Cholecalciferol (Vitamin | [facility] | | | D3) | | + + + + | 2023-01-15 00:00 | Cholecalciferol (Vitamin | [facility] | | | D3) | | + + + + | 2023-01-16 00:00 | Cholecalciferol (Vitamin | [facility] | | | D3) | | + + + + | 2017-09-01 00:00 | AMOXICILLIN/POTASSIUM CLAV | [facility] | | | | | + + + + | 2017-09-01 00:00 | AMOXICILLIN/POTASSIUM CLAV | [facility] | | | | | + + + + | 2017-09-01 00:00 | AMOXICILLIN/POTASSIUM CLAV | [facility] | | | | | + + + + | 2017-09-01 00:00 | AMOXICILLIN/POTASSIUM CLAV | [facility] | | | | | + + + + | 2017-09-01 00:00 | AMOXICILLIN/POTASSIUM CLAV | [facility] | | | | | + + + + | 2017-09-01 00:00 | AMOXICILLIN/POTASSIUM CLAV | [facility] | | | | | + + + + | 2017-09-01 00:00 | AMOXICILLIN/POTASSIUM CLAV | [facility] | | | | | + + + + | 2019-10-12 00:00 | AMOXICILLIN/POTASSIUM CLAV | [facility] | | | | | + + + + | 2019-10-12 00:00 | AMOXICILLIN/POTASSIUM CLAV | [facility] | | | | | + + + + | 2019-10-12 00:00 | AMOXICILLIN/POTASSIUM CLAV | [facility] | | | | | + + + + | 2019-10-12 00:00 | AMOXICILLIN/POTASSIUM CLAV | [facility] | | | | | + + + + | 2019-10-12 00:00 | AMOXICILLIN/POTASSIUM CLAV | [facility] | | | | | + + + + | 2019-10-12 00:00 | AMOXICILLIN/POTASSIUM CLAV | [facility] | | | | | + + + + | 2019-10-12 00:00 | AMOXICILLIN/POTASSIUM CLAV | [facility] | | | | | + + + + | 2022-02-17 00:00 | CYCLOBENZAPRINE HCL | [facility] | + + + + | 2022-02-25 00:00 | CYCLOBENZAPRINE HCL | [facility] | + + + + | 2022-03-31 00:00 | CYCLOBENZAPRINE HCL | [facility] | + + + + | 2022-04-19 00:00 | CYCLOBENZAPRINE HCL | [facility] | + + + + | 2022-04-20 00:00 | CYCLOBENZAPRINE HCL | [facility] | + + + + | 2022-05-30 00:00 | CYCLOBENZAPRINE HCL | [facility] | + + + + | 2022-07-16 00:00 | CYCLOBENZAPRINE HCL | [facility] | + + + + | 2022-10-15 00:00 | CYCLOBENZAPRINE HCL | [facility] | + + + + | 2023-01-06 00:00 | CYCLOBENZAPRINE HCL | [facility] | + + + + | 2023-01-15 00:00 | CYCLOBENZAPRINE HCL | [facility] | + + + + | 2023-01-16 00:00 | CYCLOBENZAPRINE HCL | [facility] | + + + + | 2017-07-06 00:00 | KETOROLAC TROMETHAMINE | [facility] | + + + + | 2017-07-06 00:00 | KETOROLAC TROMETHAMINE | [facility] | + + + + | 2017-07-06 00:00 | KETOROLAC TROMETHAMINE | [facility] | + + + + | 2017-07-06 00:00 | KETOROLAC TROMETHAMINE | [facility] | + + + + | 2017-07-06 00:00 | KETOROLAC TROMETHAMINE | [facility] | + + + + | 2017-07-06 00:00 | KETOROLAC TROMETHAMINE | [facility] | + + + + | 2017-07-06 00:00 | KETOROLAC TROMETHAMINE | [facility] | + + + + | 2022-02-17 00:00 | LORATADINE | [facility] | + + + + | 2022-02-25 00:00 | LORATADINE | [facility] | + + + + | 2022-03-31 00:00 | LORATADINE | [facility] | + + + + | 2022-04-19 00:00 | LORATADINE | [facility] | + + + + | 2022-04-20 00:00 | LORATADINE | [facility] | + + + + | 2022-05-30 00:00 | LORATADINE | [facility] | + + + + | 2022-07-16 00:00 | LORATADINE | [facility] | + + + + | 2022-10-15 00:00 | LORATADINE | [facility] | + + + + | 2023-01-06 00:00 | LORATADINE | [facility] | + + + + | 2023-01-15 00:00 | LORATADINE | [facility] | + + + + | 2023-01-16 00:00 | LORATADINE | [facility] | + + + + | 2022-02-17 00:00 | INSULIN | [facility] | | | INEZHUM.REC.ANLOG | | + + + + | 2022-02-25 00:00 | INSULIN | [facility] | | | GLADILLANHUM.REC.ANLOG | | + + + + | 2022-03-31 00:00 | INSULIN | [facility] | | | GLARGINE,[facility].REC.ANLOG | | + + + + | 2022-04-19 00:00 | INSULIN | [facility] | | | GLARGINE,[facility].REC.ANLOG | | + + + + | 2022-04-20 00:00 | INSULIN | [facility] | | | GLARBOSSMAN,[facility].REC.ANLOG | | + + + + | 2022-05-30 00:00 | INSULIN | [facility] | | | GLARGINE,HUM.REC.ANLOG | | + + + + | 2022-07-16 00:00 | INSULIN | [facility] | | | GLADILLANDZILTH[facility].REC.ANLOG | | + + + + | 2022-10-15 00:00 | INSULIN | [facility] | | | GLADILLANHUM.REC.ANLOG | | + + + + | 2023-01-06 00:00 | INSULIN | [facility] | | | GLAANNALEEEHUM.REC.ANLOG | | + + + + | 2023-01-15 00:00 | INSULIN | [facility] | | | GLARGINEHUM.REC.ANLOG | | + + + + |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 2016-11-29 00:00 | Encounter for medical | [facility] | | | screening examination | | + + + + | 2016-11-29 00:00 | Encounter for medical | [facility] | | | screening examination | | + + + + | 2017-06-14 00:00 | Acute parotitis | [facility] | + + + + | 2017-06-14 00:00 | Acute parotitis | [facility] | + + + + | 2017-06-14 00:00 | Acute parotitis | [facility] | + + + + | 2017-06-14 00:00 | Acute parotitis | [facility] | + + + + | 2017-06-14 00:00 | Acute parotitis | [facility] | + + + + | 2017-06-14 00:00 | Acute parotitis | [facility] | + + + + | 2017-06-14 00:00 | Acute parotitis | [facility] | + + + + | 2017-07-06 00:00 | Mild ankle sprain | [facility] | + + + + | 2017-07-06 00:00 | Mild ankle sprain | [facility] | + + + + | 2017-07-06 00:00 | Mild ankle sprain | [facility] | + + + + | 2017-07-06 00:00 | Mild ankle sprain | [facility] | + + + + | 2017-07-06 00:00 | Mild ankle sprain | [facility] | + + + + | 2017-07-06 00:00 | Mild ankle sprain | [facility] | + + + + | 2017-07-06 00:00 | Mild ankle sprain | [facility] | + + + + | 2017-09-01 00:00 | Right otitis media | [facility] | + + + + | 2017-09-01 00:00 | Right otitis media | [facility] | + + + + | 2017-09-01 00:00 | Right otitis media | [facility] | + + + + | 2017-09-01 00:00 | Right otitis media | [facility] | + + + + | 2017-09-01 00:00 | Right otitis media | [facility] | + + + + | 2017-09-01 00:00 | Right otitis media | [facility] | + + + + | 2017-09-01 00:00 | Right otitis media | [facility] | + + + + | 2017-09-01 00:00 | Cough | [facility] | + + + + | 2017-09-01 00:00 | Cough | [facility] | + + + + | 2017-09-01 00:00 | Cough | [facility] | + + + + | 2017-09-01 00:00 | Cough | [facility] | + + + + | 2017-09-01 00:00 | Cough | [facility] | + + + + | 2017-09-01 00:00 | Cough | [facility] | + + + + | 2017-09-01 00:00 | Cough | [facility] | + + + + | 2017-10-08 00:00 | Cervical radiculopathy | [facility] | + + + + | 2017-10-08 00:00 | Cervical radiculopathy | [facility] | + + + + | 2017-10-08 00:00 | Cervical radiculopathy | [facility] | + + + + | 2017-10-08 00:00 | Cervical radiculopathy | [facility] | + + + + | 2017-10-08 00:00 | Cervical radiculopathy | [facility] | + + + + | 2017-10-08 00:00 | Cervical radiculopathy | [facility] | + + + + | 2017-10-08 00:00 | Cervical radiculopathy | [facility] | + + + + | 2019-06-08 00:00 | Nonspecific chest pain | [facility] | + + + + | 2019-06-08 00:00 | Nonspecific chest pain | [facility] | + + + + | 2019-06-08 00:00 | Nonspecific chest pain | [facility] | + + + + | 2019-06-08 00:00 | Nonspecific chest pain | [facility] | + + + + | 2019-06-08 00:00 | Nonspecific chest pain | [facility] | + + + + | 2019-06-08 00:00 | Nonspecific chest pain | [facility] | + + + + | 2019-06-08 00:00 | Nonspecific chest pain | [facility] | + + + + | 2019-10-12 00:00 | Sinusitis | [facility] | + + + + | 2019-10-12 00:00 | Sinusitis | [facility] | + + + + | 2019-10-12 00:00 | Sinusitis | [facility] | + + + + | 2019-10-12 00:00 | Sinusitis | [facility] | + + + + 2019-10-12 00:00 | Sinusitis | [facility] | + + + + 2019-10-12 00:00 | Sinusitis | [facility] | + + + + | 2019-10-12 00:00 | Sinusitis | [facility] | + + + + | 2020-01-17 00:00 | Poorly controlled diabetes | [facility] | | | mellitus | | + + + + | 2020-01-17 00:00 | Poorly controlled diabetes | [facility] | | | mellitus | | + + + + | 2020-01-17 00:00 | Poorly controlled diabetes | [facility] | | | mellitus | | + + + + | 2020-01-17 00:00 | Poorly controlled diabetes | [facility] | | | mellitus | | + + + + | 2020-01-17 00:00 | Poorly controlled diabetes | [facility] | | | mellitus | | + + + + | 2020-01-17 00:00 | Poorly controlled diabetes | [facility] | | | mellitus | | + + + + | 2020-01-17 00:00 | Poorly controlled diabetes | [facility] | | | mellitus | | + + + + | 2020-01-17 00:00 | Weakness | [facility] | + + + + | 2020-01-17 00:00 | Weakness | [facility] | + + + + | 2020-01-17 00:00 | Weakness | [facility] | + + + + | 2020-01-17 00:00 | Weakness | [facility] | + + + + | 2020-01-17 00:00 | Weakness | [facility] | + + + + | 2020-01-17 00:00 | Weakness | [facility] | + + + + | 2020-01-17 00:00 | Weakness | [facility] | + + + + | 2020-04-02 00:00 | Pneumonia | [facility] | + + + + | 2020-04-02 00:00 | Pneumonia | [facility] | + + + + | 2020-04-02 00:00 | Pneumonia | [facility] | + + + + | 2020-04-02 00:00 | Pneumonia | [facility] | + + + + | 2020-04-02 00:00 | Pneumonia | [facility] | + + + + | 2020-04-02 00:00 | Pneumonia | [facility] | + + + + | 2020-04-02 00:00 | Pneumonia | [facility] | + + + + | 2020-04-02 00:00 | Hypoxia | [facility] | + + + + | 2020-04-02 00:00 | Hypoxia | [facility] | + + + + | 2020-04-02 00:00 | Hypoxia | [facility] | + + + + | 2020-04-02 00:00 | Hypoxia | [facility] | + + + + | 2020-04-02 00:00 | Hypoxia | [facility] | + + + + | 2020-04-02 00:00 | Hypoxia | [facility] | + + + + | 2020-04-02 00:00 | Hypoxia | [facility] | + + + + | 2020-04-02 00:00 | Infection due to severe | [facility] | | | acute respiratory syndrome | | | | coronavirus 2 (SARS-CoV-2) | | + + + + | 2020-04-02 00:00 | Infection due to severe | [facility] | | | acute respiratory syndrome | | | | coronavirus 2 (SARS-CoV-2) | | + + + + | 2020-04-02 00:00 | Infection due to severe | [facility] | | | acute respiratory syndrome | | | | coronavirus 2 (SARS-CoV-2) | | + + + + | 2020-04-02 00:00 | Infection due to severe | [facility] | | | acute respiratory syndrome | | | | coronavirus 2 (SARS-CoV-2) | | + + + + | 2020-04-02 00:00 | Infection due to severe | [facility] | | | acute respiratory syndrome | | | | coronavirus 2 (SARS-CoV-2) | | + + + + | 2020-04-02 00:00 | Infection due to severe | [facility] | | | acute respiratory syndrome | | | | coronavirus 2 (SARS-CoV-2) | | + + + + | 2020-04-02 00:00 | Infection due to severe | [facility] | | | acute respiratory syndrome | | | | coronavirus 2 (SARS-CoV-2) | | + + + + | 2020-05-21 00:00 | Candidal vulvovaginitis | [facility] | + + + + | 2020-05-21 00:00 | Candidal vulvovaginitis | [facility] | + + + + | 2020-05-21 00:00 | Candidal vulvovaginitis | [facility] | + + + + | 2020-05-21 00:00 | Candidal vulvovaginitis | [facility] | + + + + | 2020-05-21 00:00 | Candidal vulvovaginitis | [facility] | + + + + | 2020-05-21 00:00 | Candidal vulvovaginitis | [facility] | + + + + | 2020-05-21 00:00 | Candidal vulvovaginitis | [facility] | + + + + | 2020-05-21 00:00 | Cyst of Bartholin's gland | [facility] | | | duct | | + + + + | 2020-05-21 00:00 | Cyst of Bartholin's gland | [facility] | | | duct | | + + + + | 2020-05-21 00:00 | Cyst of Bartholin's gland | [facility] | | | duct | | + + + + | 2020-05-21 00:00 | Cyst of Bartholin's gland | [facility] | | | duct | | + + + + | 2020-05-21 00:00 | Cyst of Bartholin's gland | [facility] | | | duct | | + + + + | 2020-05-21 00:00 | Cyst of Bartholin's gland | [facility] | | | duct | | + + + + | 2020-05-21 00:00 | Cyst of Bartholin's gland | [facility] | | | duct | | + + + + | 2020-06-23 00:00 | Right hand paresthesia | [facility] | + + + + | 2020-06-23 00:00 | Right hand paresthesia | [facility] | + + + + | 2020-06-23 00:00 | Right hand paresthesia | [facility] | + + + + | 2020-06-23 00:00 | Right hand paresthesia | [facility] | + + + + 2020-06-23 00:00 | Right hand paresthesia | [facility] | + + + + | 2020-06-23 00:00 | Right hand paresthesia | [facility] | + + + + | 2020-06-23 00:00 | Right hand paresthesia | [facility] | + + + + | 2020-08-04 00:00 | Patient left without being | [facility] | | | seen | | + + + + | 2020-08-04 00:00 | Patient left without being | [facility] | | | seen | | + + + + | 2020-08-04 00:00 | Patient left without being | [facility] | | | seen | | + + + + | 2020-08-04 00:00 | Patient left without being | [facility] | | | seen | | + + + + | 2020-08-04 00:00 | Patient left without being | [facility] | | | seen | | + + + + | 2020-08-04 00:00 | Patient left without being | [facility] | | | seen | | + + + + | 2020-08-04 00:00 | Patient left without being | [facility] | | | seen | | + + + + | 2020-08-08 00:00 | Temporal headache | [facility] | + + + + | 2020-08-08 00:00 | Temporal headache | [facility] | + + + + | 2020-08-08 00:00 | Temporal headache | [facility] | + + + + | 2020-08-08 00:00 | Temporal headache | [facility] | + + + + | 2020-08-08 00:00 | Temporal headache | [facility] | + + + + | 2020-08-08 00:00 | Temporal headache | [facility] | + + + + | 2020-08-08 00:00 | Temporal headache | [facility] | + + + + | 2020-09-02 00:00 | Dysuria | [facility] | + + + + | 2020-09-02 00:00 | Dysuria | [facility] | + + + + | 2020-09-02 00:00 | Dysuria | [facility] | + + + + | 2020-09-02 00:00 | Dysuria | [facility] | + + + + | 2020-09-02 00:00 | Dysuria | [facility] | + + + + | 2020-09-02 00:00 | Dysuria | [facility] | + + + + | 2020-09-02 00:00 | Dysuria | [facility] | + + + + | 2020-09-27 00:00 | Type 2 diabetes mellitus | [facility] | | | with hyperglycemia | | + + + + | 2020-09-27 00:00 | Type 2 diabetes mellitus | [facility] | | | with hyperglycemia | | + + + + | 2020-09-27 00:00 | Type 2 diabetes mellitus | [facility] | | | with hyperglycemia | | + + + + | 2020-09-27 00:00 | Type 2 diabetes mellitus | [facility] | | | with hyperglycemia | | + + + + | 2020-09-27 00:00 | Type 2 diabetes mellitus | [facility] | | | with hyperglycemia | | + + + + | 2020-09-27 00:00 | Type 2 diabetes mellitus | [facility] | | | with hyperglycemia | | + + + + | 2020-09-27 00:00 | Type 2 diabetes mellitus | [facility] | | | with hyperglycemia | | + + + + | 2020-11-01 00:00 | Acute colitis | [facility] | + + + + | 2020-11-01 00:00 | Acute colitis | [facility] | + + + + | 2020-11-01 00:00 | Acute colitis | [facility] | + + + + | 2020-11-01 00:00 | Acute colitis | [facility] | + + + + | 2020-11-01 00:00 | Acute colitis | [facility] | + + + + | 2020-11-01 00:00 | Acute colitis | [facility] | + + + + | 2020-11-01 00:00 | Acute colitis | [facility] | + + + + | 2020-11-03 00:00 | Nausea | [facility] | + + + + | 2020-11-03 00:00 | Nausea | [facility] | + + + + | 2020-11-03 00:00 | Nausea | [facility] | + + + + | 2020-11-03 00:00 | Nausea | [facility] | + + + + | 2020-11-03 00:00 | Nausea | [facility] | + + + + | 2020-11-03 00:00 | Nausea | [facility] | + + + + | 2020-11-03 00:00 | Nausea | [facility] | + + + + | 2021-01-10 00:00 | Kandice infection of | [facility] | | | genital region | | + + + + | 2021-01-10 00:00 | Kandice infection of | [facility] | | | genital region | | + + + + | 2021-01-10 00:00 | Kandice infection of | [facility] | | | genital region | | + + + + | 2021-01-10 00:00 | Kandice infection of | [facility] | | | genital region | | + + + + | 2021-01-10 00:00 | Kandice infection of | [facility] | | | genital region | | + + + + | 2021-01-10 00:00 | Kandice infection of | [facility] | | | genital region | | + + + + | 2021-01-10 00:00 | Kandice infection of | [facility] | | | genital region | | + + + + | 2021-01-10 00:00 | Abscess | [facility] | + + + + | 2021-01-10 00:00 | Abscess | [facility] | + + + + | 2021-01-10 00:00 | Abscess | [facility] | + + + + | 2021-01-10 00:00 | Abscess | [facility] | + + + + | 2021-01-10 00:00 | Abscess | [facility] | + + + + | 2021-01-10 00:00 | Abscess | [facility] | + + + + | 2021-01-10 00:00 | Abscess | [facility] | + + + + | 2021-01-12 00:00 | Constipation | [facility] | + + + + | 2021-01-12 00:00 | Constipation | [facility] | + + + + | 2021-01-12 00:00 | Constipation | [facility] | + + + + | 2021-01-12 00:00 | Constipation | [facility] | + + + + | 2021-01-12 00:00 | Constipation | [facility] | + + + + | 2021-01-12 00:00 | Constipation | [facility] | + + + + | 2021-01-12 00:00 | Constipation | [facility] | + + + + | 2021-03-25 00:00 | Non-cardiac chest pain | [facility] | + + + + | 2021-03-25 00:00 | Non-cardiac chest pain | [facility] | + + + + | 2021-03-25 00:00 | Non-cardiac chest pain | [facility] | + + + + | 2021-03-25 00:00 | Non-cardiac chest pain | [facility] | + + + + | 2021-03-25 00:00 | Non-cardiac chest pain | [facility] | + + + + | 2021-03-25 00:00 | Non-cardiac chest pain | [facility] | + + + + | 2021-03-25 00:00 | Non-cardiac chest pain | [facility] | + + + + | 2021-04-06 00:00 | Strain of abdominal muscle | [facility] | | | | | + + + + | 2021-04-06 00:00 | Strain of abdominal muscle | [facility] | | | | | + + + + | 2021-04-06 00:00 | Strain of abdominal muscle | [facility] | | | | | + + + + | 2021-04-06 00:00 | Strain of abdominal muscle | [facility] | | | | | + + + + | 2021-04-06 00:00 | Strain of abdominal muscle | [facility] | | | | | + + + + | 2021-04-06 00:00 | Strain of abdominal muscle | [facility] | | | | | + + + + | 2021-04-06 00:00 | Strain of abdominal muscle | [facility] | | | | | + + + + | 2021-09-29 00:00 | Abscess of right buttock | [facility] | + + + + | 2021-09-29 00:00 | Abscess of right buttock | [facility] | + + + + | 2021-09-29 00:00 | Abscess of right buttock | [facility] | + + + + | 2021-09-29 00:00 | Abscess of right buttock | [facility] | + + + + | 2021-09-29 00:00 | Abscess of right buttock | [facility] | + + + + | 2021-09-29 00:00 | Abscess of right buttock | [facility] | + + + + | 2021-09-29 00:00 | Abscess of right buttock | [facility] | + + + + | 2021-11-14 00:00 | Migraine with aura | [facility] | + + + + | 2021-11-14 00:00 | Migraine with aura | [facility] | + + + + | 2021-11-14 00:00 | Migraine with aura | [facility] | + + + + | 2021-11-14 00:00 | Migraine with aura | [facility] | + + + + | 2021-11-14 00:00 | Migraine with aura | [facility] | + + + + | 2021-11-14 00:00 | Migraine with aura | [facility] | + + + + | 2021-11-14 00:00 | Migraine with aura | [facility] | + + + + | 2021-11-15 00:00 | Headache | [facility] | + + + + | 2021-11-15 00:00 | Headache | [facility] | + + + + | 2021-11-15 00:00 | Headache | [facility] | + + + + | 2021-11-15 00:00 | Headache | [facility] | + + + + | 2021-11-15 00:00 | Headache | [facility] | + + + + | 2021-11-15 00:00 | Headache | [facility] | + + + + | 2021-11-15 00:00 | Headache | [facility] | + + + + | 2022-04-20 00:00 | Sprain of left wrist | [facility] | + + + + | 2022-04-20 00:00 | Sprain of left wrist | [facility] | + + + + | 2022-04-20 00:00 | Sprain of left wrist | [facility] | + + + + | 2022-04-20 00:00 | Sprain of left wrist | [facility] | + + + + | 2022-04-20 00:00 | Sprain of left wrist | [facility] | + + + + | 2022-10-11 00:00 | Sepsis | [facility] | + + + + | 2022-10-11 00:00 | Sepsis | [facility] | + + + + | 2022-10-11 00:00 | Diabetic ketoacidosis | [facility] | + + + + | 2022-10-11 00:00 | Diabetic ketoacidosis | [facility] | + + + + | 2023-01-06 00:00 | Uncontrolled diabetes | [facility] | | | mellitus | | + + + + | 2023-01-06 00:00 | Strain of lumbar region | [facility] | + + + + | 2023-01-15 11:48 | TYPE 2 DIABETES MELLITUS | [facility] | | | WITHOUT COMPLICATIONS | | + + + + | 2023-01-15 11:48 | Essential (primary) | [facility] | | | hypertension | | + + + + | 2023-01-15 11:48 | Dizziness and giddiness | [facility] | + + + + | 2023-01-15 11:48 | RESIDENTIAL (CURRENT) USE OF | [facility] | | | INSULIN | | + + + + | 2023-01-15 11:48 | OTHER RESIDENTIAL (CURRENT) | [facility] | | | DRUG [...] | (unknown) | | | | | Eshan | value) | unknown) | | | [...] | (unknown) | | | | | Ehsna | value) | unknown) | | | [...]
[~2023-02-13 22:31] MED LIST changes: +INSULIN GL100 UNIT/2 SQ
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
[2023-02-14] MEDS ORDERED: NEURONTIN100 MG PO (02:37)
[2023-02-14] MEDS ORDERED: METHOCARBAMOL500 MG PO (02:37)
[2023-02-14 03:03] VITALS: BP 120/80
== END 2023-02-14 03:05 | disposition home or self-care (01) ==
LOC: ED 22:31
DX: M54.9 Dorsalgia, unspecified (principal); I10 Essential (primary) hypertension; E11.9 Type 2 diabetes mellitus without complications; Z88.5 Allergy status to narcotic agent; Z91.041 Radiographic dye allergy status; Z91.040 Latex allergy status; Z79.4 Long term (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; Z79.899 Other long term (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; Z98.1 Arthrodesis status
CPT/HCPCS: 36415; 80053; 81003; 85025; 99283; J7121

== ENCOUNTER 2024-06-12 18:17 | Emergency (ER) | payer OTHER ==
[~2024-06-12 18:17] MED LIST changes: +ACETAMINOPHEN325 M1 PO; +ASMANEX220 MC2 INH; +HYDROCODON-ACE1 EA11 PO; -INSULIN GL100 UNIT/2 SQ; +LISINOPRIL2.5 MG PO; +LORAZEPAM1 MG PO; +LOVENOX80 MG/0.8 SUB-Q; +NEURONTIN100 MG PO; -OZEMPIC1 MG/0.71 SUB-Q; +OZEMPIC2 MG/0.75 SUB-Q; +QUETIAPINE FUMA25 MG PO
[2024-06-12] MEDS ORDERED: DOXYCYCLINE HY100 M3 PO (19:14)
[2024-06-12] MEDS ORDERED: ondansetron HCL 4 MG/2 ML VIAL IV ONE (19:15)
[2024-06-12 19:22] LABS: BASOPHILS 1.4 % (0-2); EOSINOPHILS 4.3 % (0-6); HEMATOCRIT 31.8 % (35.0-50.0); HEMOGLOBIN 10.5 g/dL (12.0-18.0); LYMPHOCYTES 29.6 % (24-44); MCH 25.8 (27-36); MCHC 33.1 g/dl (30-36); MONOCYTES 6.8 % (0-12); NEUTROPHILS 57.9 % (39-80); PLATELET COUNT 291 K/uL (140-440); RBC 4.08 M/ul (4.3-5.7); RDW 17.4 (10.5-15.0)
[2024-06-12 19:23] LABS: BILIRUBIN, URINE NEGATIVE (negative); BLOOD/HGB, URINE NEGATIVE (Negative); KETONE, URINE NEGATIVE (Negative); LEUK ESTERASE, URINE NEGATIVE (negative); NITRITE, URINE NEGATIVE (negative); PH, URINE 5.5 (5-7)
[2024-06-12 19:40] LABS: ALBUMIN 2.6 g/dL (3.4-5.0); ALBUMIN/GLOBULIN RATIO 0.59 (1.1-2.4); ANION GAP 13.7 (7-21); BILIRUBIN, TOTAL 0.2 ng/dL (0.2-1.0); BUN/CREATININE RATIO 22.36 (6.0-28.6); CREATININE, SERUM 0.76 mg/dL (0.55-1.02); POTASSIUM 3.7 mmol/L (3.5-5.1)
[2024-06-12] MEDS ORDERED: ACETAMINOPHEN 500 MG TAB PO ONE (21:00)
[2024-06-12 21:24] VITALS: BP 129/73
== END 2024-06-12 21:23 | disposition home or self-care (01) ==
LOC: ED 18:17
PROVIDERS: Emergency Medicine
DX: R10.31 Right lower quadrant pain (principal); I10 Essential (primary) hypertension; E11.9 Type 2 diabetes mellitus without complications; Z86.16 Personal history of COVID-19; Z88.4 Allergy status to anesthetic agent; Z91.040 Latex allergy status; Z88.5 Allergy status to narcotic agent; Z91.041 Radiographic dye allergy status; Z79.01 Long term (current) use of anticoagulants; Z79.4 Long term (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; Z79.85 Long-term (current) use of injectable non-insulin antidiabetic drugs; Z79.84 Long term (current) use of oral hypoglycemic drugs; Z79.899 Other long term (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
CPT/HCPCS: 36415; 74176; 80053; 81003; 83690; 84703; 85025; 99284-25; A9270

== ENCOUNTER 2024-09-11 07:51 | Day surgery (SDC) | payer OTHER ==
[2024-09-10 13:24] VITALS: BP 103/72
[~2024-09-11] VITALS: Ht 165.1 cm; Wt 102.3 kg
[~2024-09-11 07:51] MED LIST changes: +BISACODYL5 MG PO; +CIPROFLOXACIN 0.3% 5 ML HOME.PACK ONE; +DOXYCYCLINE HY100 M3 PO; +IBLOOD GLUCOSE TEST STRIP 1 EA TEST VI PRN; +LACTATED RINGER'S 1,000 ML IV SCH; +MIRALAX17 GM PO
[2024-09-11 08:07] VITALS: BP 124/71
[2024-09-11] MEDS ORDERED: LIDOCAINE HCL 2% 5 ML SDV ONE (10:00)
[2024-09-11] MEDS ORDERED: METOCLOPRAMIDE HCL 10 MG/2 ML SDV ONE (10:00)
[2024-09-11] MEDS ORDERED: ondansetron HCL 4 MG/2 ML VIAL ONE (10:00)
[2024-09-11] MEDS ORDERED: fentaNYL citrate 100 MCG/2 ML VIAL ONE (10:00)
[2024-09-11] MEDS ORDERED: propofoL 200 MG/20 ML VIAL ONE (10:00)
--- NOTE | 2024-09-11 10:36 | NUR ---
09/11/24 Derek6 Mary Grace Chi 1029-PATIENT ARRIVED TO PACU ON RA 91% RR EVEN. PATIENTS HOB ELEVATED COTTONBALL TO LEFT EAR. RIGHT EAR NO DRAINAGE. SR. IVF INFUSING. PATIENT REACTIVE TO VERBAL STIMULI ENCOURAGED DEEP BREATHING. 1033-PATIENT REACTIVE TO VERBAL STIMULI OPENS EYES REPORTS " A LITTLE ANXIOUS" DROWSY CLOSES EYES. RA 96% RR EVEN. GLUCOSE CHECKED 205. DR. GUARDADO AT BEDSIDE.
[2024-09-11] MEDS ORDERED: CIPROFLOXACIN 0.3% 5 ML HOME.PACK OTIC ONE (10:45)
[2024-09-11 10:55] VITALS: BP 106/65
[2024-09-11] MEDS ORDERED: SEVOFLURANE 250 ML BTL INH ONE (11:01)
--- NOTE | 2024-09-11 11:04 | NUR ---
1055-PT BACK TO ROOM FROM PACU ON RA. RECEVIED REPORT FROM JESUS TOBAR. PT IS AWAKE. RESP EVEN AND UNLABORED. PT IS EATING CRACKERS AND DRINKING WATER. NO OTHER NEEDS AT THIS TIME. CALL LIGHT WITHIN REACH.
[2024-09-11 12:02] VITALS: BP 113/62
--- NOTE | 2024-09-11 12:02 | NUR ---
PT LAYING IN BED WITH EYES CLOSED. OPENS EYES TO VERBAL STIMULI. RESP EVEN AND UNLABORED. MINIMAL DISCOMFORT. PT IS READY TO GO HOME. PT WILL GET DRESSED. CALL LIGHT WITHIN REACH.
--- NOTE | 2024-09-11 12:25 | NUR ---
1225-PROVIDED PT WITH DISCHARGE INSTRUCTIONS. ALL QUESTIONS ANSWERED. PT AMBULATES TO WHEELCHAIR AND RIDE PROVIDED TO FRONT OF HOSPITAL WHERE RIDE WAS WAITING WITH THE CAR.
--- NOTE | 2024-09-11 13:59 | OR ---
[facility] [address] [place], [place] [address] Signed DATE OF OPERATION: 09/11/2024 SURGEON: Santi Hendrickson MD PREOPERATIVE DIAGNOSIS: Bilateral serous otitis media with conductive hearing loss. POSTOPERATIVE DIAGNOSIS: Bilateral serous otitis media with conductive hearing loss. PROCEDURE: Bilateral myringotomy and ventilation tube insertion with T tubes. ANESTHESIA: General LMA; LEGAL SERVICE SPECIALIST, Ramon. PREOPERATIVE HISTORY: Ana Maria is a 54-year-old lady with hearing loss for several years, audio TMs show conductive hearing loss with flat tympanograms. Exam in the office showed retracted dull eardrums consistent with middle ear effusion. She was taken to the operating room for the above-mentioned procedures. OPERATIVE PROCEDURE AND FINDINGS: After informed consent, the patient was taken to the operating room, placed in supine position where general LMA anesthesia was induced. The patient and procedure were verified. The left ear was examined with the operating microscope. The eardrum was dull, retracted anterior-inferior radial myringotomy was made. Serous effusion suctioned from the middle ear space. A T-tube placed in myringotomy site. Ofloxacin ophthalmic drops applied to the ear canal, cotton ball the meatus. Same procedure, same findings right ear. The patient tolerated the procedure well, was awakened, extubated, transported to recovery room in good condition. COMPLICATIONS: None. SPECIMEN: None. DRAINS: None. Electronically Signed By: SANTI HENDRICKSON MD 09/11/24 1359 PATIENT NAME: ANA MARIA TURCIOS OPERATIVE REPORT DATE OF : 72 REPORT #: [id number] PHYSICIAN: SANTI HENDRICKSON MD PCP: BOLIVAR SAVAGE PAC REPORT IS CONFIDENTIAL AND NOT TO BE RELEASED WITHOUT AUTHORIZATION [address] [place], [place] [address] Signed Santi Hendrickson MD /[facility] /[id number] Copies: ~ Electronically Signed By: SANTI HENDRICKSON MD 09/11/24 1359 PATIENT NAME: ANA MARIA TURCIOS OPERATIVE REPORT DATE OF : 72 REPORT #: [id number] PHYSICIAN: SANTI HENDRICKSON MD PCP: [facility]IV[facility] SAVAGE PAC REPORT IS CONFIDENTIAL AND NOT TO BE RELEASED WITHOUT AUTHORIZATION
== END 2024-09-11 12:31 | disposition home or self-care (01) ==
LOC: DS 07:51 → OPS 07:51 → DS 09:30 → OPS 09:30
PROVIDERS: ATTEND Otolaryngology
PROC: 099500Z Drainage of Right Middle Ear with Drainage Device, Open Approach (ICD-10-PCS; 2024-09-11)
PROC: 099600Z Drainage of Left Middle Ear with Drainage Device, Open Approach (ICD-10-PCS; principal; 2024-09-11 09:30)
DX: H65.93 Unspecified nonsuppurative otitis media, bilateral (principal); H91.8X3 Other specified hearing loss, bilateral; E11.9 Type 2 diabetes mellitus without complications; I10 Essential (primary) hypertension; K21.9 Gastro-esophageal reflux disease without esophagitis; F21 Schizotypal disorder; Z88.5 Allergy status to narcotic agent; Z88.8 Allergy status to other drugs, medicaments and biological substances; Z79.4 Long term (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; Z79.899 Other long term (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
CPT/HCPCS: 00126; J2003; J2405; J2704; J2765; J3010; J7121

== ENCOUNTER 2024-10-06 13:30 | Observation (INO) | payer OTHER ==
[~2024-10-06] VITALS: Ht 165.1 cm; Wt 101.1 kg
[~2024-10-06 13:30] MED LIST changes: -CIPROFLOXACIN 0.3% 5 ML HOME.PACK ONE; -IBLOOD GLUCOSE TEST STRIP 1 EA TEST VI PRN; -LACTATED RINGER'S 1,000 ML IV SCH
[2024-10-06 13:59] LABS: BASOPHILS 0.3 % (0-2); EOSINOPHILS 0.9 % (0-6); HEMATOCRIT 37.4 % (35.0-50.0); HEMOGLOBIN 12.7 g/dL (12.0-18.0); LYMPHOCYTES 3.3 % (24-44); MCH 25.7 (27-36); MCHC 33.9 g/dl (30-36); MCV 75.8 fl (81-99); MONOCYTES 3.1 % (0-12); NEUTROPHILS 92.4 % (39-80); PLATELET COUNT 318 K/uL (140-440); RBC 4.93 M/ul (4.3-5.7); RDW 19.8 (10.5-15.0)
[2024-10-06] MEDS ORDERED: SODIUM CHLORIDE 0.9% 1,000 ML IV ONE ×2 (14:00→16:45)
[2024-10-06] MEDS ORDERED: ondansetron HCL 4 MG/2 ML VIAL IV PRN ×2 (14:00→21:00)
[2024-10-06 14:21] LABS: ALBUMIN 3.1 g/dL (3.4-5.0); ALBUMIN/GLOBULIN RATIO 0.57 (1.1-2.4); ANION GAP 14.8 (7-21); BILIRUBIN, TOTAL 0.7 mg/dL (0.2-1.0); BUN/CREATININE RATIO 13.63 (6.0-28.6); CALCIUM 8.6 mg/dL (8.5-10.1); CREATININE, SERUM 0.88 mg/dL (0.55-1.02); POTASSIUM 3.8 mmol/L (3.5-5.1); PROTEIN, TOTAL 8.5 g/dL (6.4-8.2)
[2024-10-06] MEDS ORDERED: droPERidol 5 MG/2 ML VIAL IV ONE (15:00)
[2024-10-06] MEDS ORDERED: diphenhydrAMINE HCL 50 MG/ML VIAL IV ONE (15:00)
[2024-10-06 17:32] LABS: INFLUENZA B NAA NEGATIVE (NEGATIVE); RESPIRATORY SYNCYTIAL VIR NAA NEGATIVE (NEGATIVE)
[2024-10-06 17:34] LABS: BILIRUBIN, URINE NEGATIVE (negative); BLOOD/HGB, URINE NEGATIVE (Negative); KETONE, URINE SMALL (Negative); LEUK ESTERASE, URINE NEGATIVE (negative); NITRITE, URINE NEGATIVE (negative)
[2024-10-06 17:40] LABS: EPITHELIAL CELLS, URINE SQUAMOUS 1+ /lpf (0-1+)
[2024-10-06 17:41] LABS: BACTERIA, URINE NONE SEEN /hpf (negative); CASTS, URINE NONE SEEN \\lpf; COLLECTION TYPE, URINE CLEAN CATCH; CRYSTALS, URINE NONE SEEN (0-1+); RED BLOOD CELLS, URINE 0-1 /hpf (0-5); REFLEX CULTURE, URINE No (No); WHITE BLOOD CELLS, URINE 0-1 /HPF (0-5)
[2024-10-06] MEDS ORDERED: KETOROLAC TROMETHAMINE 30 MG/ML VIAL IV ONE (18:00)
[2024-10-06 18:25] LABS: AMPHETAMINES, URINE NEGATIVE (NEGATIVE); BARBITURATES, URINE NEGATIVE (NEGATIVE); BENZODIAZEPINE, URINE NEGATIVE (NEGATIVE); BUPRENORPHINE, URINE NEGATIVE (NEGATIVE); CANNABINOID, URINE NEGATIVE (NEGATIVE); COCAINE, URINE NEGATIVE (NEGATIVE); ECSTASY, URINE NEGATIVE (NEGATIVE); FENTANYL, URINE NEGATIVE (NEGATIVE); METHADONE, URINE NEGATIVE (NEGATIVE); OPIATES, URINE NEGATIVE (NEGATIVE); OXYCODONE, URINE NEGATIVE (NEGATIVE); PHENCYCLIDINE, URINE NEGATIVE (NEGATIVE)
[2024-10-06] MEDS ORDERED: CEFTRIAXONE SODIUM 1 GM VIAL IV ONE (18:52)
[2024-10-06] MEDS ORDERED: CEFTRIAXONE SODIUM 1 GM in SODIUM CHLORIDE 0.9% 100 ML IV ONE (19:00)
[2024-10-06 19:24] LABS: PH, VENOUS 7.413 (7.31-7.41)
[2024-10-06] MEDS ORDERED: MAGNESIUM SULFATE 2 GM/50 ML BAG IV ONE (20:00)
[2024-10-06] MEDS ORDERED: MELATONIN 3 MG TAB PO PRN (21:00)
[2024-10-06] MEDS ORDERED: DEXTROSE 50% 50 ML SYR IV PRN ×2 (21:00)
[2024-10-06] MEDS ORDERED: GLUCAGON,HUMAN RECOMBINANT 1 MG/ML VIAL SUB-Q PRN (21:00)
[2024-10-06] MEDS ORDERED: INSULIN LISPRO 100 UNIT/ML ML SUB-Q SCH (21:00)
[2024-10-06] MEDS ORDERED: PROCHLORPERAZINE EDISYLATE 10 MG/2 ML VIAL IV PRN (21:00)
[2024-10-06] MEDS ORDERED: IBLOOD GLUCOSE TEST STRIP 1 EA TEST VI SCH (21:00)
[2024-10-06] MEDS ORDERED: IBLOOD GLUCOSE TEST STRIP 1 EA TEST XX PRN (21:00)
[2024-10-06] MEDS ORDERED: ACETAMINOPHEN 325 MG TAB PO PRN (21:00)
[2024-10-06] MEDS ORDERED: DEXTROSE 5% 1,000 ML IV PRN (21:00)
[2024-10-06] MEDS ORDERED: LACTATED RINGER'S 1,000 ML IV SCH (21:00)
[2024-10-06 22:39] VITALS: BP 119/76
[2024-10-06 22:40] VITALS: BP 119/76
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
[2024-10-07 01:04] VITALS: BP 126/72
--- NOTE | 2024-10-07 01:15 | NUR ---
NEURO ASSESSMENT: PT WOKE EASILY, A/O X 4; DENIES FEELING WORSE THAN WHEN SHE WAS ADMITTED, DENIES NAUSEA, AND NO BM'S SINCE ADMISSION. SKIN WARM AND DRY; IV CONTINUES PER ORDER. O2 1L NC IN PLACE, BED ALARM IN PLACE. NO OTHER NEEDS AT THIS TIME.
--- NOTE | 2024-10-07 03:35 | NUR ---
call light answered, pt reports h/a 03/17-prn tylenol given-see emar. pharmaceutical analyst in room to assist pt to bathroom.
--- NOTE | 2024-10-07 03:54 | NUR ---
HELPED PT GO THE BATHROOM. MACHINE TECH GOT A STANDING WEIGHT, HELPED HER BACK INTO BED, GOT FRESH ICE WATER, TURNED ON BED ALARM, AND LEFT PT WITH CALL LIGHT WITHIN REACH.
[2024-10-07 04:27] VITALS: BP 130/71
--- NOTE | 2024-10-07 04:33 | NUR ---
INSTALLATION SERVICE REPRESENTATIVE GAVE PT PUDDING, CRACKERS, AND DIET SPRITE, ONE ICE PACK, AND ONE HOT PACK IN A PILLOW CASE.
[2024-10-07 04:40] VITALS: BP 130/71
--- NOTE | 2024-10-07 04:45 | NUR ---
PT HAD CALLED, WANTED ROOM TEMP TURNED DOWN. METAL POURER AND RN INTO ROOM, VS COMPLETED, PT SWEATY, BS 238; AFEBRILE. ROOM COOL, PT WANTED COVERED UP. ASSESSMENT COMPLETE. PT STATES FEELS BETTER, HAS BEEN SLEEPING. DENIES NEED FOR NAUSEA MEDICATION, NO BM'S THIS SHIFT. HEADACHE BETTER AFTER TYLENOL. FOLLOWS COMMANDS. VOIDED, MISSED HAT. PT ROLLED OVER TO LEFT SIDE. CALL LIGHT WITHIN REACH.
[2024-10-07 05:25] LABS: BASOPHILS 0.5 % (0-2); EOSINOPHILS 0.5 % (0-6); HEMATOCRIT 32.9 % (35.0-50.0); HEMOGLOBIN 10.9 g/dL (12.0-18.0); MCH 25.6 (27-36); MCHC 33.2 g/dl (30-36); MCV 77.1 fl (81-99); MONOCYTES 3.5 % (0-12); NEUTROPHILS 87.5 % (39-80); PLATELET COUNT 264 K/uL (140-440); RBC 4.27 M/ul (4.3-5.7); RDW 19.1 (10.5-15.0)
[2024-10-07 05:37] LABS: ANION GAP 11.4 (7-21); BUN/CREATININE RATIO 17.44 (6.0-28.6); CALCIUM 7.8 mg/dL (8.5-10.1); CREATININE, SERUM 0.86 mg/dL (0.55-1.02); MAGNESIUM 2.4 mg/dL (1.8-2.4); PHOSPHORUS, INORGANIC 2.5 mg/dL (2.5-4.9); POTASSIUM 3.4 mmol/L (3.5-5.1)
--- NOTE | 2024-10-07 06:11 | NUR ---
PT ADMITTED WITH N/V DIARRHEA SX, VIRAL GASTROENTERITIS. THIS SHIFT PT HAS NOT HAVE N/V/DIARRHEA. A/O, SLEEPING FREQUENTLY. BEDALARM, CALLS APPROPRIATE FOR USE OF BATHROOM. NEUROS NEG,. INDEPENDENT WITH TURING IN BED. DOES ENDORSE ABD PAIN FROM VOMITING PRIOR TO ADMISSION. TYLENOL GIVEN THIS SHIFT FOR DE; HEARTRATES IN THE 100'S; CPOX O2 IN 90'S. AFEBRILE AFTER MIDNIGHT THIS SHIFT. SBA LINE MANAGMENT WHEN UP.
--- NOTE | 2024-10-07 07:39 | NUR ---
REPORT REC'D FROM EKATERINA RAMIREZ. PT RESTING QUIETLY IN BED, IV INFUSING AT 125/HR.
[2024-10-07] MEDS ORDERED: MAGNESIUM OXIDE 400 MG TABLET PO ONE (08:30)
[2024-10-07] MEDS ORDERED: POTASSIUM CHLORIDE 10 MEQ TABCR PO ONE (08:30)
[2024-10-07] MEDS ORDERED: PANTOPRAZOLE SODIUM 40 MG TABEC PO SCH (09:00)
[2024-10-07] MEDS ORDERED: ENOXAPARIN SODIUM 40 MG/0.4 ML SYR SUB-Q SCH (09:00)
[2024-10-07] MEDS ORDERED: GABAPENTIN 100 MG CAP PO SCH (09:00)
[2024-10-07] MEDS ORDERED: lisinopriL 2.5 MG TABLET PO SCH (09:00)
[2024-10-07] MEDS ORDERED: ONDANSETRON ODT8 MG PO (09:35)
[2024-10-07 09:42] VITALS: BP 124/68
--- NOTE | 2024-10-07 09:42 | NUR ---
PATIENT IN BED RESTING WITH EYES CLOSED. I&O'S DONE AND CHARTED. CALL LIGHT IN REACH. NO FURTHER NEEDS AT THIS TIME.
[2024-10-07 09:48] VITALS: BP 124/68
--- NOTE | 2024-10-07 11:37 | NUR ---
PT LYING IN BED. PT IS PLANNING FOR DISCHARGE AFTER LUNCH AND STATES WILL NEED CARE RIDE FOR TRANSPORTATION. PT DOES NOT VERBALIZE ANY COMPLAINTS
[2024-10-07] MEDS ORDERED: PHARMACY RENAL DOSE ADJUSTMENT 1 DOSE MISC PO SCH (12:00)
[2024-10-07] MEDS ORDERED: ATORVASTATIN 40 MG TAB PO SCH (17:00)
--- NOTE | 2024-10-07 21:34 | EKG ---
[facility] [address] [facility] [place] [address] Signed Sinus tachycardia Rightward axis Borderline ECG When compared with ECG of 26-JUN-2024 09:39, Questionable change in QRS axis Confirmed by Chaz Hayward DO ([id number]) on 10/07/2024 9:34:15 PM Electronically Signed By: CHAZ HAYWARD DO 10/07/24 2134 PATIENT NAME: ANA MARIA TURCIOS Electrocardiogram DATE OF : 72 PHYSICIAN: CHAZ HAYWARD DO REPORT #: [id number] REPORT IS CONFIDENTIAL AND NOT TO BE RELEASED WITHOUT AUTHORIZATION
== END 2024-10-07 13:00 | disposition home or self-care (01) ==
LOC: ED 13:30 → MS 13:32
PROVIDERS: Emergency Medicine; Family Medicine; ADMIT Student in an Organized Health Care Education/Training Program; ATTEND Student in an Organized Health Care Education/Training Program
DX: A08.4 Viral intestinal infection, unspecified (principal); I10 Essential (primary) hypertension; E11.9 Type 2 diabetes mellitus without complications; E78.5 Hyperlipidemia, unspecified; K21.9 Gastro-esophageal reflux disease without esophagitis; G62.9 Polyneuropathy, unspecified; Z88.5 Allergy status to narcotic agent; Z79.4 Long term (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; Z79.899 Other long term (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
CPT/HCPCS: 36415; 71045; 74176; 80048; 80053; 80307; 81001; 82010; 82140; 82800; 82803; 83605; 83690; 83735; 84100; 84484; 84703; 85025; 87040; 87502; 93005; 93010; 94762; 94799; 96361; 96365; 96367; 96372; 96375; 99285-25; A9270; G0378; J0696; J0780; J1200; J1650; J1790; J1815; J1885; J2405; J3475; J7030; J7121; U0002

== ENCOUNTER 2025-04-14 09:01 | Emergency (ER) | payer OTHER ==
[~2025-04-14] VITALS: Ht 165.1 cm; Wt 96.0 kg
[2025-04-14 09:24] LABS: BASOPHILS 0.8 % (0.1-1.2); EOSINOPHILS 1.5 % (0.7-5.8); LYMPHOCYTES 12.7 % (19.3-51.7); MCH 25.3 PG (25.6-32.2); MCHC 32.3 g/dL (32.2-35.5); MCV 78.2 fL (79.4-94.8); MONOCYTES 5.1 % (4.7-12.5); NEUTROPHILS 79.4 % (34.0-71.1); RBC 4.59 M/uL (3.93-5.22)
[2025-04-14 09:42] LABS: ALT (SGPT) 17.0 U/L (14-59); AST (SGOT) 11.0 U/L (15-37); GLOMERULAR FILTRATION RATE,EST 99.0 mL/min (>60); PROTEIN, TOTAL 7.5 g/dL (6.4-8.2); UREA NITROGEN 10.0 mg/dL (7-18)
[2025-04-14 10:08] LABS: BLOOD/HGB, URINE NEGATIVE (Negative); KETONE, URINE TRACE (Negative); LEUK ESTERASE, URINE NEGATIVE (negative); NITRITE, URINE NEGATIVE (negative)
[2025-04-14 10:13] LABS: BACTERIA, URINE NONE SEEN /hpf (negative); CASTS, URINE NONE SEEN \\lpf; CRYSTALS, URINE NONE SEEN (0-1+); EPITHELIAL CELLS, URINE SQUAMOUS 2+ /lpf (0-1+); REFLEX CULTURE, URINE No (No)
[2025-04-14] MEDS ORDERED: MORPHINE SULFATE 4 MG/ML VIAL IV ONE (10:15)
[2025-04-14] MEDS ORDERED: SODIUM CHLORIDE 0.9% 1,000 ML IV ONE (10:30)
[2025-04-14] MEDS ORDERED: HYDROCODON-ACE1 EA10 PO (11:08)
[2025-04-14] MEDS ORDERED: ONDANSETRON ODT4 MG PO (11:08)
[2025-04-14 11:40] VITALS: BP 149/89
== END 2025-04-14 11:40 | disposition home or self-care (01) ==
LOC: ED 09:01
PROVIDERS: Emergency Medicine
DX: R10.32 Left lower quadrant pain (principal); H60.92 Unspecified otitis externa, left ear; I10 Essential (primary) hypertension; E11.9 Type 2 diabetes mellitus without complications; Z91.040 Latex allergy status; Z91.041 Radiographic dye allergy status; Z88.5 Allergy status to narcotic agent; Z79.899 Other long term (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
CPT/HCPCS: 36415; 74176; 80053; 81001; 83690; 85025; 96361; 96374; 96375; 99284-25; J2270; J2405; J7030

== ENCOUNTER 2025-07-09 12:15 | Emergency (ER) | payer MEDICARE, OTHER ==
[~2025-07-09] VITALS: Ht 165.1 cm; Wt 99.5 kg
[~2025-07-09 12:15] MED LIST changes: +ONDANSETRON ODT4 MG PO
[2025-07-09] MEDS ORDERED: predniSONE 20 MG TAB PO ONE (13:00)
[2025-07-09] MEDS ORDERED: METHYLPREDNISOLO4 M1 PO (13:03)
[2025-07-09 13:15] VITALS: BP 109/73
== END 2025-07-09 13:16 | disposition home or self-care (01) ==
LOC: ED 12:15
DX: M54.31 Sciatica, right side (principal); I10 Essential (primary) hypertension; E11.9 Type 2 diabetes mellitus without complications; Z91.040 Latex allergy status; Z79.899 Other long term (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; Z88.5 Allergy status to narcotic agent; Z88.8 Allergy status to other drugs, medicaments and biological substances
CPT/HCPCS: 99283; J7512